=== PATIENT | female | born 1990 | race Caucasian/White ===

== ENCOUNTER → 2017-06-27 17:00 | Outpatient (CLI) | payer MEDICARE, SELFPAY ==
[2017-05-20 13:34] VITALS: BP 111/74; BMI 36.0
[2017-06-27 17:47] LABS: hCG Titer Quant., Serum < 1 mIU/mL (<9 non-preg)
== END ==
PROVIDERS: Family Provider Internal Medicine; PCP Internal Medicine; Visit Provider Obstetrics & Gynecology
DX: N92.6 Irregular menstruation, unspecified (principal)
CPT/HCPCS: 84702

== ENCOUNTER 2017-07-05 13:04 | Emergency (ER) | payer MEDICARE, SELFPAY ==
[2017-07-05 13:05] VITALS: BP 152/94; PULSE 121; RESP 16; TEMP 38.2; O2SAT 97; BMI 29.7
[2017-07-05 13:20] VITALS: O2SAT 98
--- NOTE | 2017-07-05 13:40 | ED.VISSUMM ---
- ER Visit Summary Date of Service: 07/05/17 Chief Complaint: [Fever and cough] History of Present Illness: The patient is a 27 F [presents to the emergency department with multiple complaints ?2 days. Patient states that her entire family's been sick with bronchitis. Patient started with fever yesterday. Patient has had chills and a cough. Patient planes of body aches and sore throat. Patient describes nausea.] Physical Examination: [HEENT-PERRLA, EOMI. Cranial nerves II through XII grossly intact. TMs clear. Mucous membranes moist. No adenopathy. Clear rhinorrhea. Minimal pharyngeal erythema. Cardiovascular-regular cardiac. No murmurs auscultated. Lungs-clear to auscultation, chest wall stable without crepitus or subcu emphysema Abdomen-normoactive bowel sounds, soft, nontender, no rebound or rigidity, no peritoneal signs. Extremities-intact ?4, normal range of motion, normal pulses, atraumatic] Test Results: [None indicated] Emergency Department Course and Treatment: [I believe the patient has influenza. We discussed Tamiflu however she would prefer not to move forward with the Tamiflu.] Treatment Plan: [Is to push fluids and get lots of rest. Patient will be given a prescription for Zofran and Tessalon Perles. Patient advised to follow-up with her primary care physician within next 5-7 days. Patient to return if increasing shortness of breath or condition should worsen in any way. Disposition: [Discharged to home in stable condition] Impression: [Influenza] This note was generated with [employer] dictation software. It may contain incorrect words, spelling, and punctuation that were not noted in review of the chart prior to signing ED Disposition - Plan for ED Patient: Chief Complaint: Cough Referrals: Juan Alfaro MD [Primary Care Provider] -
--- NOTE | 2017-07-05 13:43 | ED.DEP ---
ED Disposition - Plan for ED Patient: Chief Complaint: Cough Instructions: ED Flu Prescriptions: Ondansetron [Zofran Odt] 4 mg PO Q8H PRN PRN #10 tab PRN Reason: Nausea Benzonatate [Tessalon Perle] 200 mg PO TID PRN PRN #20 cap PRN Reason: Cough Referrals: Juan Alfaro MD [Primary Care Provider] - 5-7 Days
[2017-07-05 13:55] VITALS: BP 119/61; PULSE 125; RESP 18; O2SAT 98
[2017-07-05] MEDS: Ondansetron ODT 4 MG Tablet PO (13:55)
[2017-07-05] MEDS: Ibuprofen 400 MG Tablet 800 MG PO (13:55)
== END 2017-07-05 13:58 | disposition home or self-care (01) ==
LOC: ED 13:38
PROVIDERS: Emergency Provider Emergency Medicine; Family Provider Internal Medicine; PCP Internal Medicine
DX: J11.1 Influenza due to unidentified influenza virus with other respiratory manifestations (principal)
CPT/HCPCS: 99283

== ENCOUNTER 2017-07-26 09:00 | Outpatient (RCR) | payer MEDICARE, SELFPAY ==
--- NOTE | 2017-05-30 09:13 | HP.PTEVAL ---
Patient's Visit Information COLLIN APARICIO is a 27 year old F referred to Physical Therapy by DO ROJAS Gamble with a diagnosis of R knee arthroscopy, synovectomy. Date of Evaluation: 05/25/17 Physical Therapist: Kenny Pedraza - Visit Plan Frequency: 2x /Week Duration: 4 Weeks Plan: Start with quad, HS, core, hip abd, hip ER strengthening. Progress to CKC as tolerated. Avoid deep squats currently. Progress strengthening and ROM as tolerated. May use IFC and ice as needed for pain control. - Subjective Subjective: Pt. is here today for her initial evaluation with diagnosis fo R knee arthroscopy with synovectomy. Pt. is a 27 y.o. female who reports having R knee pain for 5+ years with no apperent mechanism of injury. Pt. had surgery on May 06, 2017. Pt. reports overally she is doing well, but did slip on ice yesterday, but did not fall. She reports increase edema since, but still minimal. Pt. is pleased with ability to ambulate and get around since surgery. Pt. does like to work out at gym and is planning to start [employer] program at [facility]. Pt. wants to have knee good so when she starts, she can participate in the aerobic fitness portion of the program. Pt. reports not doing any exercises since srugery, just been walking and icing. Pt. is hipeful to get back to all recreational and aerobic activities without issues. - Pain R knee Pain Intensity (Out of 10): 2 Pain Intensity Range: 0, 4 - Objective POSTURE: Pt. has normal knee positioning in stance, except she has slight knee flexion of R knee in stance. Pt. has slight wt. shift to L side. Pt otherwise as normal positioning. PALPATION: Pt. has well healing port holes, no signs of infection. Pt. has negative homans sign bilaterally. Pt. has slight edema in RLE. Pt. has slight tenderness at medial aspect of knee joint, no pain at posterior aspect. NEUROLOGICAL Pt. has normal sensation to light and sharp touch of bilateral LEs. Pt. has 2+ achilles DTR bilaterally and 2+ patellar DTR on LLE. Pt. is able to rise on heels and toes without issues or LOB. ROM: L knee 0-0-138deg. R knee 0-3-122deg. Mild increase in symptoms at both end ranges of motion of R knee. Pt. has normal hip ROM bilaterally. Tight HS on R side, normal on L side. MMT: LLE- ankle 5/5 throughout; knee- ext 5-/5, flexion 5-/5; hip- flexion 5-/5, abd 4+/5, ext 5-/5. RLE- ankle 5/5 throughout; knee- ext 4/5, flexion 4/5; hip- flexion 4/5, abd 4/5, ext 4/5. Core strength- poor+. GAIT: Pt. presents with antalgic pattern during R stance phase. Pt. lacks TKE on RLE, bu minimall. Pt. had decreased L step length and slight R lateral lean during R stance phase. STAIRS: Pt. completes with step to pattern with 2 HR without LOB. Pt. reports increased pain with descending. - Goals Goal 1:: Pt. to be I with HEP. Goal Time Frame: 4-6 Weeks Goal 2:: Pt. to have increased ROM to 0-0-130deg. of R knee without symptoms allowing for increased tolerance to all ADLs. Goal Time Frame: 4-6 Weeks Goal 3:: Pt. to have increased RLE strength including hip and core by 1/2 grade reducing stress applied to R knee with all functional mobility. Goal Time Frame: 4-6 Weeks Goal 4:: Pt. to have normal gait pattern without increase in symptoms. Goal Time Frame: 4-6 Weeks Goal 5:: Pt. to negotiate stairs with 1 HR with reciprocal pattern without increase in symptoms. Goal Time Frame: 4-6 Weeks - Rehabilitation Potential Physical Therapy Diagnosis: Pt. has signs and symptoms consistent with R knee hypombility, increased edema, RLE weakness, and difficulty with gait S/P R knee arthroscopy. She would benefit from PT to incerase ROM, strength, stability, decrease pain and improve gait pattern. Rehabilitation Potential: Excellent - Anticipated Interventions Patient/Client Instruction: Educate patient on: Condition, Plan of Care, Risk Factors, Benefits of Fitness Program For the Purpose of:: To improve health and function, To foster healthy habits, To improve decision making, To facilitate caregiver knowledge, To improve self management, To prevent re-injury, To improve ability to perform tasks related to life management, To improve tolerance to ADL's Therapeutic Exercise to Include: Strength training, Power training, Endurance training, Balance training, Coordination, Postural training, Flexibilty training, Passive ROM, Active ROM, Dynamic Lumbar Stabilization For the Purpose of:: To decrease pain, To decrease swelling/inflammation, To increase ROM, To improve nutrient delivery to tissue, To increase oxygenation perfusion, To improve muscle performance and motor function, To improve performance and independence with ADL's, To decrease level of supervision to perform tasks, To improve gait and locomotor functions, To improve health of tissue, To decrease soft tissue restriction, To increase flexibility/ROM, To improve endurance, To improve balance IF ES: Yes Cryotherapy (ice pack, ice massage): Yes Vasopneumatic device: Yes For the Purpose of:: To decrease pain, To decrease swelling/inflammation, To increase ROM Thank you for the opportunity to evaluate your patient. For Medicare and Medicare HMO plans, please review the plan of care and approve it. It will need to be FAXED BACK to us at [phone] for Medicare purposes. Please let me know if there are questions or concerns regarding this plan of care. Physician Signature: Date:
--- NOTE | 2017-07-26 16:55 | HP.PTDCSUM_ITS ---
HP - PT D/C Summary It has been my pleasure to treat COLLIN APARICIO under orders from Cris Olson DO, for the diagnosis of R knee arthroscopy, synovectomy for a total of 11 visit(s). Discharge Date: 07/26/17 Please see the following information for a summary of their discharge status. - Subjective Subjective: Pt. reports I am doing pretty well today, but I did do a lot of walking the other day. My muscles are a little sore. Pt. reports being HEP compliant. - Pain R knee Pain Intensity (Out of 10): 0 - Overall Improvement % Improvement: 95 - Objective Objective/Function: Pt. reports she is doing very well. Pt. tolerated all gym exercises without issues. Pt. is independent with her HEP and with gym exercises at this point in time. Pt. reports no pain with walking or gym exercises. Pt. has full ROM without increase in symptoms. MMT- 5/5 throughout RLE, except 4+/5 hip abduction. Pt. is negotiating steps without increase in symptoms without HR. Pt. is completing with reciprocal pattern without increase in symptoms. Pt. is back to gym exercises and HEP without issues. - Goals Goal 1:: Pt. to be I with HEP. Goal Progress: Goal Met Goal 2:: Pt. to have increased ROM to 0-0-130deg. of R knee without symptoms allowing for increased tolerance to all ADLs. Goal Progress: Goal Met Goal 3:: Pt. to have increased RLE strength including hip and core by 1/2 grade reducing stress applied to R knee with all functional mobility. Goal Progress: Goal Met Goal 4:: Pt. to have normal gait pattern without increase in symptoms. Goal Progress: Goal Met Goal 5:: Pt. to negotiate stairs with 1 HR with reciprocal pattern without increase in symptoms. Goal Progress: Goal Met - Plan Plan: Pt. to be PT. DC to HEP at this point in time to gym exercises and HEP. - D/C Information Discharge Comments: Pt. was treated for her R knee arthroscopy with ROM, strengthening, and progressing to gym exercises. Pt. is no longer having any pain. She is independent with her current program and has minimal issues with her functional mobility. She reports occassional soreness with decending steps , but infrequently. Pt. will be DC to HEP at this point in time. If there are questions or concerns regarding this patient's physical therapy, please feel free to call me at [phone]. Thank you for the referral of this patient. Sincerely, Kenny Pedraza
== END 2017-07-26 19:00 | disposition home or self-care (01) ==
LOC: PT 09:00
PROVIDERS: Family Provider Internal Medicine; PCP Internal Medicine; Visit Provider Orthopaedic Surgery
DX: Z98.890 Other specified postprocedural states (principal)
CPT/HCPCS: 97014; 97110; 97161; G0283

== ENCOUNTER → 2017-08-08 13:54 | Outpatient (CLI) | payer MEDICARE, SELFPAY ==
--- NOTE | 2017-08-08 13:57 | US_ITS ---
STUDY: ULTRASOUND BREAST - RIGHT REASON FOR EXAM: Female, 27 years old. Bilateral breast pain. History of prior bilateral breast reduction surgery. TECHNIQUE: Axial and longitudinal images of the RIGHT breast were performed with a high resolution ultrasound transducer. COMPARISON: Comparison is made with prior mammogram done earlier in the day. FINDINGS: RIGHT Breast: There is a homogeneous fibroglandular tissue. No solid or cystic mass lesion is seen. There is evidence of a benign-appearing right axillary lymph node. IMPRESSION: Small right axillary lymph node. ASSESSMENT CATEGORY: BIRADS Category 2: Benign. A letter regarding these results will be sent to the patient by the facility within 30 days. Electronically Signed: Chuck Yi MD at 8:03 EDT Tel [phone], Service support , STUDY: ULTRASOUND BREAST - LEFT REASON FOR EXAM: Female, 27 years old. Bilateral breast pain. Remote breast reduction surgery. TECHNIQUE: Axial and longitudinal images of the LEFT breast were performed with a high resolution ultrasound transducer. COMPARISON: Comparison is made with prior mammogram done earlier today. FINDINGS: LEFT Breast: The left breast was examined by ultrasound. No sonographic abnormality is seen. US/Breast Limited Unilateral IMPRESSION: Unremarkable sonographic examination. ASSESSMENT CATEGORY: BIRADS Category 1: Negative. A letter regarding these results will be sent to the patient by the facility within 30 days. Electronically Signed: Chuck Yi MD at 8:03 EDT Tel [phone], Service support ,
--- NOTE | 2017-08-08 14:00 | HPBI_ITS ---
MAMMOGRAPHY - BILATERAL DIAGNOSTIC REASON FOR EXAM: Female, 27 years old. 2 month history of a bilateral breast pain. PERTINENT HISTORY: Prior bilateral breast reduction surgery. TECHNIQUE: Digital bilateral breast pedro (3D mammographic acquisition) in the CC and MLO projections. 2-D mediolateral oblique (MLO) and craniocaudad (CC) views of both breasts were obtained. CAD: Full Field Digital Mammography with Computer Added Detection was performed. COMPARISON: None. Baseline examination. FINDINGS: Breast Composition: The breasts are heterogeneously dense, which may obscure small masses. There are no dominant masses or suspicious calcifications. No other significant abnormalities are identified. HPBI/DIAG MAMM W/CAD, BILAT IMPRESSION: Negative diagnostic mammogram. With the patient's history of bilateral breast pain, correlation with ultrasound is recommended. ASSESSMENT CATEGORY: BIRADS Category 0: Incomplete. Need additional imaging evaluation. A letter regarding these results will be sent to the patient by the facility within 30 days. Approximately 10% of breast cancers are not detected by mammography. A normal mammogram should not delay biopsy of a clinically suspicious abnormality. Electronically Signed: Chuck Yi MD at 15:36 EDT Tel [phone], Service support ,
== END ==
PROVIDERS: Family Provider Internal Medicine; PCP Internal Medicine; Visit Provider Nurse Practitioner Women's Health
DX: N64.4 Mastodynia (principal)
CPT/HCPCS: 76642; 77062; 77066; G0279

== ENCOUNTER → 2017-10-19 16:22 | Outpatient (CLI) | payer MEDICARE, SELFPAY ==
[2017-10-19 18:14] LABS: Pregnancy, Serum, hCG Quali. NEGATIVE Negative (0-9 Nonpreg)
== END ==
PROVIDERS: Family Provider Internal Medicine; PCP Internal Medicine; Visit Provider Internal Medicine
DX: N92.6 Irregular menstruation, unspecified (principal)
CPT/HCPCS: 36415; 84703

== ENCOUNTER → 2018-02-28 09:48 | Outpatient (CLI) | payer MEDICARE, SELFPAY ==
--- NOTE | 2018-02-28 09:55 | RAD_ITS ---
STUDY: X-RAY - PELVIS AND RIGHT HIP REASON FOR EXAM: Right hip pain since knee surgery last April. TECHNIQUE: Radiological exam, hip, unilateral, with pelvis when performed; 2 or 3 views. COMPARISON: None. FINDINGS: There are small pelvic phleboliths. Normal bilateral iliac wings, sacroiliac joints and visualized sacrum. Normal bilateral superior and inferior pubic rami. Normal pubic symphysis. Normal bilateral ischial tuberosities. Normal visualized femoral head. Normal acetabulum. Normal hip joint. RAD/HIP, UNI W/ Pelvis 2-3 Views IMPRESSION: Normal x-ray examination of the pelvis and right hip. Electronically Signed: Ovi Figueroa MD at 16:01 EDT Tel , Service support ,
== END ==
PROVIDERS: Family Provider Internal Medicine; PCP Internal Medicine; Referring Provider Orthopaedic Surgery; Visit Provider Orthopaedic Surgery
DX: M25.551 Pain in right hip (principal)
CPT/HCPCS: 73502

== ENCOUNTER 2018-03-20 16:30 | Outpatient (RCR) | payer MEDICARE, SELFPAY ==
--- NOTE | 2018-03-08 05:50 | HP.PTEVAL_ITS ---
Patient's Visit Information COLLIN APARICIO is a 27 year old F referred to Physical Therapy by Cris Olson DO with a diagnosis of Right Hip Labral Tear. Date of Evaluation: 03/06/18 Physical Therapist: Kenny Pedraza - Visit Plan Frequency: 2x /Week Duration: 4 Weeks Plan: Start with US to anterior hip, gentle exercises including glute strengthening (max/med), quad strengthening as tolerated, hip ER as tolerated. Avoid end ranges, no deep squating. Focus on pain control and progression of light exercises as tolerated. Progress HEP as able. - Subjective Subjective: Pt is here today for their initial evaluation for right hip labral tear. About one year go pt had surgery on their right knee. it was following this surgery that the patient first noticed right hip pain. pt put off treatment for their right hip due to a second surgery they recieved on their left knee. pt has recovered from both knee surgerys and is now seeking treatment for their right hip. pt reports a constant pain lvl around 6 or 7 out of 10 but can get as high as 9/10. pt reports greatest pain when navigating stairs, sitting or standing. pt recieves some relief when laying in supine or on left side. pt has a 6 year old daughter who says keeps her busy and forces her to remain active and work through the pain. pt hopes to be able to reduce pain and be able to participate in all activity with no pain. - Pain R Hip Pain Intensity (Out of 10): 7 Pain Intensity Range: 6, 9 - Objective POSTURE: forward head and rounded shoulders, normal iliac crest height, no increased wt. shift to either side. PALPATION : Pt. has increased tenderness at anterior hip including iliopsoas, rectus femoris. No other quad tenderness. NEURO: equal sensation bilat, Pt. is able to rise on heels and toes without issues. Pt. has 2+ bilateral achilles and patellar DTR. ROM: LE - WFL, except increased R hip pain with end range flexion, ext and IR. MMT: RLE - 5/5 throughout, except with hip flexion and external rotaiton (4/5) and pain with resistance. LLE- 5/5 throughout. Core strength- poor+. GAIT: mild antalgic gait, reports difficutly with stairs. Pt. has mild increase in symptoms during stance phase, slight lateral hip translation and slight decreased L step length. - Special Tests R Hip Scour: Positive R Hip ELMER - Intraarticular Pathology: Positive R Hip FADDIR - Labrum: Positive - Goals Goal 1:: pt I with HEP Goal Time Frame: 2-4 Weeks Goal 2:: pt reports 0/10 pain with navigating stairs, sitting, and standing Goal Time Frame: 2-4 Weeks Goal 3:: pt reports 0/10 with walking Goal Time Frame: 2-4 Weeks Goal 4:: pt has full strength without pain in their right hip Goal Time Frame: 2-4 Weeks Goal 5:: pt able to return to gym without pain Goal Time Frame: 2-4 Weeks - Rehabilitation Potential Physical Therapy Diagnosis: pt presents with signs and symptsoms consistent with right hip labral tear. pt presents with an antalgic gait and pain with hip flexion with and without resistance. pt recorded positive resutls for scour and elmer tests. pt would benefit from PT in order to promote increased hip stability and reduced hip pain allowing for greater participation in daily activities Rehabilitation Potential: Good - Anticipated Interventions Patient/Client Instruction: Educate patient on: Condition, Plan of Care, Risk Factors, Benefits of Fitness Program For the Purpose of:: To decrease pain, To increase tolerance to activity/cond ition/position, To improve ability of physical actions for home/community/work/leisure Therapeutic Exercise to Include: Strength training For the Purpose of:: To decrease pain, To improve muscle performance and motor function, To increase tolerance to activity/condition/position, To improve ability of physical actions for home/community/work/leisure Manual Therapy Techniques to Include: Massage, Functional dry needling For the Purpose of:: To decrease pain, To decrease swelling/inflammation, To increase tolerance to activity/condition/position, To improve ability of physical actions for home/community/work/leisure TENS: Yes Cryotherapy (ice pack, ice massage): Yes Thermo therapy (hot pack): Yes Ultrasound (thermal/non thermal): Yes For the Purpose of:: To decrease pain, To increase tolerance to activity/condition/position, To improve ability of physical actions for home/community/work/leisure Thank you for the opportunity to evaluate your patient. For Medicare and Medicare HMO plans, please review the plan of care and approve it. It will need to be FAXED BACK to us at [phone] for Medicare purposes. Please let me know if there are questions or concerns regarding this plan of care. Physician Signature: Date:
--- NOTE | 2018-03-29 10:38 | HP.PTDCSUM ---
HP - PT D/C Summary It has been my pleasure to treat COLLIN APARICIO under orders from Cris Olson DO, for the diagnosis of Right Hip Labral Tear for a total of 4 visit(s). Discharge Date: 03/20/18 Please see the following information for a summary of their discharge status. - Subjective Subjective: Pt. reports I am really not getting much better.' Pt. reports being HEP compliant. She reports increased pain with all activities. She did start a new job which requires her to be on her feet a lot. - Pain R Hip Pain Intensity (Out of 10): 4 - Overall Improvement % Improvement: 25 - Objective Objective/Function: Pt. continues have increased pain with most functional mobility. She has point tender at her R iliopsoas muscle, but has special testing consistent with labral pathology. Pt. is to continue with stretching as tolerated. - Goals Goal 1:: pt I with HEP Goal Progress: Goal Met Goal 2:: pt reports 0/10 pain with navigating stairs, sitting, and standing Goal Progress: Not Progressing Goal 3:: pt reports 0/10 with walking Goal Progress: Not Progressing Goal 4:: pt has full strength without pain in their right hip Goal Progress: Progressing Goal 5:: pt able to return to gym without pain Goal Progress: Not Progressing - Plan Plan: Pt. to be DC from PT and follow up with physician at this point in time to determine if alternate course of action is required. - D/C Information Discharge Comments: Pt. was treated for her R hip pathology with manual intervention, US and stretching. Pt. was making minimal changes with PT and desired to follow up with physician to determine if alternate intervention would be beneficial. If there are questions or concerns regarding this patient's physical therapy, please feel free to call me at [phone]. Thank you for the referral of this patient. Sincerely, Kenny Pedraza
== END 2018-03-20 19:00 | disposition home or self-care (01) ==
LOC: PT 16:30
PROVIDERS: Family Provider Internal Medicine; PCP Internal Medicine; Referring Provider Orthopaedic Surgery; Visit Provider Orthopaedic Surgery
DX: S73.101D Unspecified sprain of right hip, subsequent encounter (principal)
CPT/HCPCS: 97035; 97110; 97140; 97161

== ENCOUNTER → 2018-04-10 10:02 | Outpatient (CLI) | payer MEDICARE, SELFPAY ==
--- NOTE | 2018-04-10 10:06 | RAD_ITS ---
CLINICAL HISTORY: Female, 27 years old. Right hip pain. PROCEDURE: ARTHROGRAM - ] CONSENT: The procedure as well as the benefits and possible complications including bleeding and infection were expanded to the patient. Informed consent was obtained. FLUOROSCOPY TIME (if supplied): (0:48) minutes/seconds Injection Information: 10 cc of dilute Magnevist. Number of images obtained: 2 TECHNIQUE: (All elements of maximal sterile barrier technique followed, including US elements as applicable) The patient was in the supine position. The overlying skin was prepped and draped in usual sterile fashion. Following local anesthetic a location and under direct fluoroscopic guidance, a 22-gauge spinal needle was placed into the right hip joint. 2 cc of Isovue-300 was injected for confirmation. Following this, 10 cc of dilute Magnevist was injected. The patient tolerated the procedure well. RAD/Arthrogram Hip w/ MRI IMPRESSION: Successful right hip arthrogram for MRI imaging. The patient tolerated the procedure well. Electronically Signed: Chuck Yi MD at 12:39 EST Tel [phone], Service support ,
--- NOTE | 2018-04-10 11:30 | MRI_ITS ---
STUDY: MR RIGHT HIP ARTHROGRAPHY REASON FOR EXAM: Right hip pain, instability, no specific injury. TECHNIQUE: Standardized fat and water weighted pulse sequences were obtained in all 3 orthogonal planes after intra-articular instillation of dilute Magnevist. COMPARISON: Radiographs 02/28/2018. FINDINGS: Normal hip joint without articular joint space narrowing. Normal acetabulum. There is a small tear at the base of the right superior labrum (T1 coronal images 11-13) and a tear of the right anterosuperior labrum (ELMER image 11). Normal femoral head. Normal femoral neck and intratrochanteric region. Normal gluteus minimus, medius and iliopsoas tendons and distal insertions. There is no trochanteric, iliopsoas or iliopectineal bursitis. Normal superior and inferior pubic rami. Normal ischial tuberosity. Normal origin of the hamstring tendons. Normal visualized iliac wing, sacroiliac joint, and sacral ala. There is mild iatrogenic edema anterior to the right hip joint capsule. MRI/Lower Ext/Jt Only/W Contrast IMPRESSION: Right labral tear. Electronically Signed: Ovi Figueroa MD at 13:13 EST Tel , Service support ,
== END ==
PROVIDERS: Family Provider Internal Medicine; PCP Internal Medicine; Referring Provider Orthopaedic Surgery; Visit Provider Orthopaedic Surgery
DX: S73.191A Other sprain of right hip, initial encounter (principal); M25.551 Pain in right hip
CPT/HCPCS: 27093; 73722; 77002; A9577; Q9967

== ENCOUNTER 2018-04-12 18:55 | Emergency (ER) | payer MEDICARE, SELFPAY ==
[2018-04-12 18:56] VITALS: BP 134/87; PULSE 92; RESP 16; TEMP 36.2; O2SAT 95; BMI 36.2
--- NOTE | 2018-04-12 19:17 | ED.DCSUM_ITS ---
- ER Visit Summary Date of Service: 04/12/18 Chief Complaint: Acute on chronic right hip pain History of Present Illness: The patient is a 27 F history of depression and anxiety. Prior knee scopes. Currently under the care of Dr. Cris Olson of orthopedics. Patient had 6-month history of right hip pain. She had an MRI done on Tuesday which showed a labral tear. She is complaining of increasing pain. No new fall or trauma. No fever or redness. Pain is worse with walking. Physical Examination: Young female no acute distress. Vital signs are stable and afebrile. H EENT exam unremarkable. Lungs clear to auscultation bilaterally. Heart regular rhythm no murmur. Abdomen soft and nontender. Normal bowel sounds no peritoneal signs. Extremities moves all 4. Neurovascular intact. Right foot has normal dorsi plantar flexion normal DP pulse. She is able to flex and extend the right hip, right knee and right ankle. She has worsening pain with flexion of the right hip. There is no redness or swelling of the right hip. There is no gross bony deformity. She has normal range of motion. Test Results: None Emergency Department Course and Treatment: I reviewed the patient's MRI results from Tuesday. They do show a labral tear. Treatment Plan: She states that the tramadol is not covering her pain. She will be written for limited Percocet 10 no refill otherwise ibuprofen and follow-up with her orthopedic surgeon Dr. Olson Disposition: dc Impression: Acute on chronic right hip pain with a known labral tear diagnosed by MRI This note was generated with [employer] dictation software. It may contain incorrect words, spelling, and punctuation that were not noted in review of the chart prior to signing ED Disposition - Plan for ED Patient: Chief Complaint: Lower Extremity Injury Referrals: Juan Alfaro MD [Primary Care Provider] -
--- NOTE | 2018-04-12 19:17 | ED.DEP ---
ED Disposition - Plan for ED Patient: Disposition: Home or Assisted Living Chief Complaint: Lower Extremity Injury Prescriptions: Oxycodone HCl/Acetaminophen [Percocet 10-325 mg Tablet] 1 tab PO Q6H PRN PRN #10 tab PRN Reason: Pain Referrals: Cris Olson DO [STAFF PHYSICIAN] - As soon as possible Additional Instructions: Percocet for pain otherwise ibuprofen. Call and follow-up with orthopedic doctor.
[2018-04-12 19:21] VITALS: RESP 18
== END 2018-04-12 19:29 | disposition home or self-care (01) ==
PROVIDERS: Emergency Provider Emergency Medicine; Family Provider Internal Medicine; PCP Internal Medicine
DX: M25.551 Pain in right hip (principal); G89.29 Other chronic pain; S73.101A Unspecified sprain of right hip, initial encounter; X58.XXXA Exposure to other specified factors, initial encounter; Y93.9 Activity, unspecified; Y92.9 Unspecified place or not applicable; F32.9 Major depressive disorder, single episode, unspecified; F41.9 Anxiety disorder, unspecified
CPT/HCPCS: 99282

== ENCOUNTER 2018-05-05 18:05 | Observation (INO) | payer MEDICARE, SELFPAY ==
[2018-05-05 17:09] VITALS: BMI 36.2
[2018-05-05 18:06] VITALS: BP 110/96; PULSE 88; RESP 17; TEMP 36.8; O2SAT 98; BMI 37.1
--- NOTE | 2018-05-05 18:43 | CT_ITS ---
STUDY: CT ABDOMEN AND PELVIS WITH CONTRAST REASON FOR EXAM: Female, 28 years old. Abdominal pain on the right RADIATION DOSAGE (If Supplied By Facility): CTDIvol = ( 16.95 ) mGy, DLP = ( 1212.74 ) mGycm TECHNIQUE: Transaxial images were obtained from the dome of the diaphragm to the symphysis pubis without oral contrast. 100ML ml of Isovue 300 contrast was administered. Sagittal and coronal images were reconstructed. Individualized dose optimization techniques were used for this CT. COMPARISON: December 20, 2015 FINDINGS: The visualized lung bases are unremarkable. The visualized portions of the heart are within normal limits. Normal liver. Normal gallbladder and extrahepatic biliary system. Normal spleen. Normal pancreas. Normal bilateral adrenal glands. Nonobstructive 2 mm stone in the right kidney. Nonobstructive punctate stone in the left kidney. Normal visualized stomach. Normal small intestine. Normal colon. The appendix is borderline in size requiring clinical correlation. Normal abdominal aorta. Normal inferior vena cava. Normal retroperitoneum. Normal urinary bladder. There is a right adnexal 2.8 x 1.8 cm cystic nodule. Normal abdominal wall. Normal osseous structures. CT/Abdomen/Pelvis WITH Contrast IMPRESSION: Borderline size appendix requiring clinical correlation. Right adnexal cystic nodule. Nonobstructing renal calculi bilaterally. Electronically Signed: Hector Biswas DO at 21:29 EST Tel [phone], Service support ,
[2018-05-05 19:09] VITALS: BP 117/82; PULSE 81; RESP 16; TEMP 36.8
[2018-05-05] MEDS: Ondansetron 4 MG/2 ML Vial IV ×2 (19:10→22:04)
[2018-05-05] MEDS: 0.9% Normal Saline 1,000 ML 150 ML IV (19:10)
[2018-05-05] MEDS: Morphine 4 MG/ML Syringe IV ×2 (19:10→22:04)
[2018-05-05 19:17] LABS: Absolute Lymphocyte Count 2.79 X10^3/ul (0.83-4.51); Absolute Neutrophil Count 3.9 X10^3/uL (2.0-7.7); Basophil# 0.03 X10^3/uL; Basophil% 0.4 % (0-1); Eosinophil# 0.03 X10^3/uL; Eosinophils% 0.4 % (0-5); Hematocrit 34.8 % (37-47); Hemoglobin 11.8 g/dl (12.0-15.0); Lymphocyte # 2.79 X10^3/ul (4.0); Lymphocyte % 38.3 % (19-41); Mean Corp Hgb Conc 33.9 g/gl (32-36); Mean Corpuscular Hgb 28.9 pg (27.0-32.0); Mean Corpuscular Volume 85.1 fL (81-99); Mean Platelet Vol. 8.9 fl (6.2-12.0); Monocyte# 0.55 X10^3/uL; Monocyte% 7.5 % (0-10); Neutrophil # 3.88 X10^3/uL (2.7-7.7); Neutrophil % 53.3 % (47-70); POSITIVE COUNT NO; POSITIVE DIFFERENTIAL NO; POSITIVE MORPHOLOGY NO; Platelet Count 316 K/mm3 (150-450); RBC Distribution Width CV 12.2 % (11.6-14.6); RBC Distribution Width SD 37.9 fl (35.1-43.9); Red Blood Count 4.09 M/mm3 (4.2-5.4); White Blood Count 7.3 K/mm3 (4.4-11.0)
[2018-05-05 19:22] LABS: Anion Gap 8 (5-15); BUN 12 mg/dL (7-18); BUN/Creat Ratio 20.1 RATIO (10-20); Calcium,Total 8.8 mg/dL (8.5-10.1); Chloride 103 mmol/L (98-107); EST Glomerular Filtration Rate 127 mL/min (>60); Est Glom Filt Rate - Afr Amer 154 mL/min (>60); Estimated Creatinine Clearance 105.34 ml/min; Glucose 91 mg/dL (74-106); Potassium 3.8 mmol/L (3.5-5.1); Sodium Level 140 mmol/L (136-145)
[2018-05-05 19:36] LABS: Mucous, Urine 0 SEEN /hpf (<or=2+); Red Blood Cells-Urine 0 SEEN /hpf (0-5); White Blood Cells 0 SEEN /hpf (0-5)
[2018-05-05 19:38] LABS: Color, Urine Yellow (Yellow); Glucose, Dipstick Normal (Normal); Ketone-Dipstick 5 mg/dl (Negative); Leukocyte Esterase-Dipstick Negative /ul (Negative); Nitrite-Dipstick Negative (Negative); Occult Blood-Urine Negative /ul (Negative); Protein-Dipstick Negative (Negative); Specific Gravity, Urine 1.015 (1.002-1.030); Urine Bilirubin Dipstick Negative (Negative); Urine Clarity Sl. Cloudy (Clear); Urine Urobilinogen Normal (Normal); Urine pH 6.5 (5.0 - 8.0)
[2018-05-05 19:45] LABS: Bacteria RARE /hpf (None Seen); Squamous Epithelial Cells - UA 0-5 SEEN /hpf (5-10); Yeast-Urine RARE /hpf (None Seen)
[2018-05-05 19:55] LABS: Pregnancy, Serum, hCG Quali. NEGATIVE Negative (0-9 Nonpreg)
[2018-05-05 20:17] VITALS: BP 115/81; PULSE 78; RESP 16; TEMP 36.7
[2018-05-05 21:42] VITALS: TEMP 36.7
[2018-05-05 22:12] VITALS: BP 123/74; PULSE 87; RESP 16
--- NOTE | 2018-05-05 22:24 | PCM.HP.STD ---
Problem List (1) Acute appendicitis Status: Acute Qualifiers: Acute appendicitis type: unspecified acute appendicitis type Qualified Code(s): K35.80 - Unspecified acute appendicitis History of Present Illness Date of Admission: 05/05/18 The patient is a 28 year old F complaining of right lower quadrant pain. The patient reports his pain is in the periumbilical and right lower quadrant. She does have nausea. She rates her pain as an 8 out of 10. She is not having any vomiting or dysuria. The patient does not report any fevers or chills. Past Medical History Past Medical History (Chronic Problems): Chronic Problems (Last Reviewed 05/05/18 @ 17:09 by Bibi Roper) GERD (gastroesophageal reflux disease) (Chronic) Obesity (Chronic) Depression with anxiety (Chronic) Scoliosis (Chronic) IBS (irritable bowel syndrome) (Chronic) Chronic back pain (Chronic) Asthma (Chronic) Depression (Chronic) Anxiety (Chronic) Medical History: Medical History (Last Reviewed 05/05/18 @ 17:09 by Bibi Roper) Scoliosis (Chronic) M41.9 IBS (irritable bowel syndrome) (Chronic) K58.9 Chronic back pain (Chronic) M54.9, G89.29 Asthma (Chronic) J45.909 Depression (Chronic) F32.9 Anxiety (Chronic) F41.9 Preeclampsia O14.90 Allergies naproxen Adverse Reaction (Verified 05/05/18 18:06) Other varenicline tartrate [From Chantix] Adverse Reaction (Verified 05/05/18 18:06) Other Home Medications: Ambulatory Orders Medication Instructions Recorded NK 04/12/18 Surgical History: Surgical History (Last Reviewed 05/05/18 @ 17:09 by Bibi Roper) H/O knee surgery Z98.890 History of tonsillectomy Z98.890, Z90.89 Hx of breast reduction, elective Z98.890 S/P right knee arthroscopy Z98.890 05/06/17 adnoids c/s Surgical History: tonsillectomy, - - C Section, knee scopes Psychiatric History: Anxiety, Depression Smoking Status: Former smoker Alcohol: None - *Family History Maternal Family History: Family History (Last Reviewed 05/05/18 @ 17:09 by Bibi Roper) Mother Depression Aunt Breast cancer Grandmother Diabetes Uncle Hyperlipemia Menieres disease Depression Review of Systems Constitutional: Denies: Anorexia, Fever HEENT: Denies: Difficulty Swallowing Cardiovascular: Denies: Chest Pain Respiratory: Denies: Cough Gastrointestinal: Reports: Abdominal Pain, Nausea. Denies: Hematochezia, Vomiting Genitourinary: Denies: Dysuria Musculoskeletal: Denies: Joint Tenderness Skin: Denies: Dryness, Jaundice Neurological: Denies: Balance problems Psychiatric: Reports: Anxiety, Depression Hematologic/ Lymphatic: Denies: Anemia, Easy Bruising VTE Information - Inpt Only VTE Present on Admission: No VTE Mechan Device Prophylaxis: SCD's Patient Problems: Active and Suspected Problems (Last Reviewed 05/05/18 @ 17:09 by Bibi Roper) Acute appendicitis (Acute) - Physical Exam General: Alert, Oriented x3, Cooperative, No apparent distress HEENT: Atraumatic Neck: No JVD Lungs: Normal air movement Cardiovascular: Regular rate, Regular Rhythm Abdomen: Soft, Non-Distended, Obese, Tender - Right lower quadrant tenderness. No guarding or rebound. Exquisitely tender to touch. Extremities: No clubbing Skin: No rashes Musculoskeletal: No Muscle Wasting Neurological: Cranial nerves II-XII grossly intact Psych/Mental Status: Normal Affect Vital Signs Temp Pulse Resp BP Pulse Ox 98.1 F 87 16 123/74 H 98 05/05/18 21:42 05/05/18 22:12 05/05/18 22:12 05/05/18 22:12 05/05/18 18:06 Oxygen Delivery Method Room Air Weight: 196 lb 10.437 oz Body Mass Index (BMI) 37.1 Laboratory Tests Past 24 Hrs 05/05/18 05/05/18 05/05/18 19:05 19:05 19:05 WBC 7.3 RBC 4.09 L Hgb 11.8 L Hct 34.8 L MCV 85.1 MCH 28.9 MCHC 33.9 RDW 12.2 RDW Differential 37.9 Plt Count 316 MPV 8.9 Immature Gran % (Auto) 0.100 Neut % (Auto) 53.3 Lymph % (Auto) 38.3 [place] % (Auto) 7.5 Eos % (Auto) 0.4 Baso % (Auto) 0.4 Absolute Neuts (auto) 3.9 Absolute Lymphs (auto) 2.79 Total Counted Not Reportable Sodium 140 Potassium 3.8 Chloride 103 Carbon Dioxide 29.0 Anion Gap 8 BUN 12 Creatinine 0.60 Estim Creat Clear Calc 105.34 Est GFR (MDRD) Af Amer 154 Est GFR (MDRD) Non-Af 127 BUN/Creatinine Ratio 20.1 H Glucose 91 Calcium 8.8 Serum , Qual NEGATIVE Urine Color Urine Clarity Urine pH Ur Specific [place] Urine Protein Urine Glucose (UA) Urine Ketones Urine Occult Blood Urine Nitrite Urine Bilirubin Urine Urobilinogen Ur Leukocyte Esterase Urine RBC Urine WBC Ur Squamous Epith Cells Urine Bacteria Urine Mucus Urine Yeast 05/05/18 19:30 WBC RBC Hgb Hct MCV MCH MCHC RDW RDW Differential Plt Count MPV Immature Gran % (Auto) Neut % (Auto) Lymph % (Auto) [place] % (Auto) Eos % (Auto) Baso % (Auto) Absolute Neuts (auto) Absolute Lymphs (auto) Total Counted Sodium Potassium Chloride Carbon Dioxide Anion Gap BUN Creatinine Estim Creat Clear Calc Est GFR (MDRD) Af Amer Est GFR (MDRD) Non-Af BUN/Creatinine Ratio Glucose Calcium Serum , Qual Urine Color Yellow Urine Clarity Sl. Cloudy Urine pH 6.5 Ur Specific [place] 1.015 Urine Protein Negative Urine Glucose (UA) Normal Urine Ketones 5 H Urine Occult Blood Negative Urine Nitrite Negative Urine Bilirubin Negative Urine Urobilinogen Normal Ur Leukocyte Esterase Negative Urine RBC 0 SEEN Urine WBC 0 SEEN Ur Squamous Epith Cells 0-5 SEEN Urine Bacteria RARE Urine Mucus 0 SEEN Urine Yeast RARE Clinical Impression(s) from Imaging Studies Abdomen/Pelvis CT 05/05/18 18:43 IMPRESSION: Borderline size appendix requiring clinical correlation. Right adnexal cystic nodule. Nonobstructing renal calculi bilaterally. Electronically Signed: Hector Biswas DO at 21:29 EST Tel [phone], Service support , Assessment/Plan All Active Problems (Last Reviewed 05/05/18 @ 17:09 by Bibi Roper) Acute appendicitis (Acute) Right lower quadrant abdominal pain of unknown etiology (Acute) Viral syndrome (Acute) Irregular periods (Acute) Foot pain, bilateral (Acute) 28-year-old female with possible acute appendicitis 1. The patient is having right lower quadrant pain which is very severe. She is also having nausea. She had a normal white count with no left shift but her CT scan was read as borderline thickening. The appendix does look thickened on the CT scan and it contains no contrast. I am concern for acute appendicitis as her appendix does not appear this large on her last CT scan. I explained that this may not be appendicitis but an exploratory laparoscopy with appendectomy would be the only way to ensure that. 2. I explained laparoscopic appendectomy to the patient in detail. I explained the risks including but not limited to bleeding, infection, injury to surrounding organs such as the bowels or bladder or ureter. The patient understands the risks and is willing to proceed with surgery. 3. I will admit the patient and keep her n.p.o. and place her on antibiotics and take her for laparoscopic appendectomy in the morning. Jd Jennings MD Pager: [facility] [address] [place] [address], [address] [place] [address] Office:
--- NOTE | 2018-05-05 22:29 | HP.PCM_ITS ---
Problem List (1) Acute appendicitis Status: Acute Qualifiers: Acute appendicitis type: unspecified acute appendicitis type Qualified Code(s): K35.80 - Unspecified acute appendicitis History of Present Illness Date of Admission: 05/05/18 The patient is a 28 year old F complaining of right lower quadrant pain. The patient reports his pain is in the periumbilical and right lower quadrant. She does have nausea. She rates her pain as an 8 out of 10. She is not having any vomiting or dysuria. The patient does not report any fevers or chills. Past Medical History Past Medical History (Chronic Problems): Chronic Problems (Last Reviewed 05/05/18 @ 17:09 by Bibi Roper) GERD (gastroesophageal reflux disease) (Chronic) Obesity (Chronic) Depression with anxiety (Chronic) Scoliosis (Chronic) IBS (irritable bowel syndrome) (Chronic) Chronic back pain (Chronic) Asthma (Chronic) Depression (Chronic) Anxiety (Chronic) Medical History: Medical History (Last Reviewed 05/05/18 @ 17:09 by Bibi Roper) Scoliosis (Chronic) M41.9 IBS (irritable bowel syndrome) (Chronic) K58.9 Chronic back pain (Chronic) M54.9, G89.29 Asthma (Chronic) J45.909 Depression (Chronic) F32.9 Anxiety (Chronic) F41.9 Preeclampsia O14.90 Allergies naproxen Adverse Reaction (Verified 05/05/18 18:06) Other varenicline tartrate [From Chantix] Adverse Reaction (Verified 05/05/18 18:06) Other Home Medications: Ambulatory Orders Medication Instructions Recorded NK 04/12/18 Surgical History: Surgical History (Last Reviewed 05/05/18 @ 17:09 by Bibi Roper) H/O knee surgery Z98.890 History of tonsillectomy Z98.890, Z90.89 Hx of breast reduction, elective Z98.890 S/P right knee arthroscopy Z98.890 05/06/17 adnoids c/s Surgical History: tonsillectomy, - - C Section, knee scopes Psychiatric History: Anxiety, Depression Smoking Status: Former smoker Alcohol: None - *Family History Maternal Family History: Family History (Last Reviewed 05/05/18 @ 17:09 by Bibi Roper) Mother Depression Aunt Breast cancer Grandmother Diabetes Uncle Hyperlipemia Menieres disease Depression Review of Systems Constitutional: Denies: Anorexia, Fever HEENT: Denies: Difficulty Swallowing Cardiovascular: Denies: Chest Pain Respiratory: Denies: Cough Gastrointestinal: Reports: Abdominal Pain, Nausea. Denies: Hematochezia, Vomiting Genitourinary: Denies: Dysuria Musculoskeletal: Denies: Joint Tenderness Skin: Denies: Dryness, Jaundice Neurological: Denies: Balance problems Psychiatric: Reports: Anxiety, Depression Hematologic/ Lymphatic: Denies: Anemia, Easy Bruising VTE Information - Inpt Only VTE Present on Admission: No VTE Mechan Device Prophylaxis: SCD's Patient Problems: Active and Suspected Problems (Last Reviewed 05/05/18 @ 17:09 by Bibi Roper) Acute appendicitis (Acute) - Physical Exam General: Alert, Oriented x3, Cooperative, No apparent distress HEENT: Atraumatic Neck: No JVD Lungs: Normal air movement Cardiovascular: Regular rate, Regular Rhythm Abdomen: Soft, Non-Distended, Obese, Tender - Right lower quadrant tenderness. No guarding or rebound. Exquisitely tender to touch. Extremities: No clubbing Skin: No rashes Musculoskeletal: No Muscle Wasting Neurological: Cranial nerves II-XII grossly intact Psych/Mental Status: Normal Affect Vital Signs Temp Pulse Resp BP Pulse Ox 98.1 F 87 16 123/74 H 98 05/05/18 21:42 05/05/18 22:12 05/05/18 22:12 05/05/18 22:12 05/05/18 18:06 Oxygen Delivery Method Room Air Weight: 196 lb 10.437 oz Body Mass Index (BMI) 37.1 Laboratory Tests Past 24 Hrs 05/05/18 05/05/18 05/05/18 19:05 19:05 19:05 WBC 7.3 RBC 4.09 L Hgb 11.8 L Hct 34.8 L MCV 85.1 MCH 28.9 MCHC 33.9 RDW 12.2 RDW Differential 37.9 Plt Count 316 MPV 8.9 Immature Gran % (Auto) 0.100 Neut % (Auto) 53.3 Lymph % (Auto) 38.3 [place] % (Auto) 7.5 Eos % (Auto) 0.4 Baso % (Auto) 0.4 Absolute Neuts (auto) 3.9 Absolute Lymphs (auto) 2.79 Total Counted Not Reportable Sodium 140 Potassium 3.8 Chloride 103 Carbon Dioxide 29.0 Anion Gap 8 BUN 12 Creatinine 0.60 Estim Creat Clear Calc 105.34 Est GFR (MDRD) Af Amer 154 Est GFR (MDRD) Non-Af 127 BUN/Creatinine Ratio 20.1 H Glucose 91 Calcium 8.8 Serum , Qual NEGATIVE Urine Color Urine Clarity Urine pH Ur Specific [place] Urine Protein Urine Glucose (UA) Urine Ketones Urine Occult Blood Urine Nitrite Urine Bilirubin Urine Urobilinogen Ur Leukocyte Esterase Urine RBC Urine WBC Ur Squamous Epith Cells Urine Bacteria Urine Mucus Urine Yeast 05/05/18 19:30 WBC RBC Hgb Hct MCV MCH MCHC RDW RDW Differential Plt Count MPV Immature Gran % (Auto) Neut % (Auto) Lymph % (Auto) [place] % (Auto) Eos % (Auto) Baso % (Auto) Absolute Neuts (auto) Absolute Lymphs (auto) Total Counted Sodium Potassium Chloride Carbon Dioxide Anion Gap BUN Creatinine Estim Creat Clear Calc Est GFR (MDRD) Af Amer Est GFR (MDRD) Non-Af BUN/Creatinine Ratio Glucose Calcium Serum , Qual Urine Color Yellow Urine Clarity Sl. Cloudy Urine pH 6.5 Ur Specific [place] 1.015 Urine Protein Negative Urine Glucose (UA) Normal Urine Ketones 5 H Urine Occult Blood Negative Urine Nitrite Negative Urine Bilirubin Negative Urine Urobilinogen Normal Ur Leukocyte Esterase Negative Urine RBC 0 SEEN Urine WBC 0 SEEN Ur Squamous Epith Cells 0-5 SEEN Urine Bacteria RARE Urine Mucus 0 SEEN Urine Yeast RARE Clinical Impression(s) from Imaging Studies Abdomen/Pelvis CT 05/05/18 18:43 IMPRESSION: Borderline size appendix requiring clinical correlation. Right adnexal cystic nodule. Nonobstructing renal calculi bilaterally. Electronically Signed: Hector Biswas DO at 21:29 EST Tel [phone], Service support , Assessment/Plan All Active Problems (Last Reviewed 05/05/18 @ 17:09 by Bibi Roper) Acute appendicitis (Acute) Right lower quadrant abdominal pain of unknown etiology (Acute) Viral syndrome (Acute) Irregular periods (Acute) Foot pain, bilateral (Acute) 28-year-old female with possible acute appendicitis 1. The patient is having right lower quadrant pain which is very severe. She is also having nausea. She had a normal white count with no left shift but her CT scan was read as borderline thickening. The appendix does look thickened on the CT scan and it contains no contrast. I am concern for acute appendicitis as her appendix does not appear this large on her last CT scan. I explained that this may not be appendicitis but an exploratory laparoscopy with appendectomy would be the only way to ensure that. 2. I explained laparoscopic appendectomy to the patient in detail. I explained the risks including but not limited to bleeding, infection, injury to surrounding organs such as the bowels or bladder or ureter. The patient understands the risks and is willing to proceed with surgery. 3. I will admit the patient and keep her n.p.o. and place her on antibiotics and take her for laparoscopic appendectomy in the morning. Jd Jennings MD Pager: [facility] [address] [place] [address], [address] [place] [address] Office:
--- NOTE | 2018-05-05 22:30 | ED.DCSUM_ITS ---
- ER Visit Summary Date of Service: 05/05/18 Chief Complaint: Abdominal pain History of Present Illness: The patient is a 28 F with abdominal pain for the past 2 days, initially started in the periumbilical region and now down to the right lower quadrant. She had decreased appetite and decreased p.o. intake. She felt warm but did not measure a fever. She denies dysuria. She is a history of IBS but states this does not feel like her prior flares. Only prior surgical history is a . Physical Examination: Vital signs unremarkable. Patient is sitting upright in bed. She is nontoxic appearing. Heart is regular rate and rhythm. Lung sounds are clear. Abdomen is soft with tenderness in the right lower quadrant. She has some guarding. Hypoactive but present bowel sounds are noted throughout. Test Results: CBC was normal white count and differential. Hemoglobin is 11.8. Chemistry studies normal. Urinalysis normal. test normal. CT abdomen and pelvis with contrast reveals borderline sized appendix. A right adnexal cystic nodules noted at 2.8 x 1.8 cm. Emergency Department Course and Treatment: Patient is given morphine, Zofran, and IV fluids. Following completion of CT and lab work, test results are discussed with patient and family. I spoke with Dr. Carter, on-call for surgery. He reviewed the imaging and is concerned that there is not air or contrast in the lumen of her appendix. Patient is given a dose of Zosyn tonight and will be reevaluated with probable surgery for appendicitis at that time. Treatment Plan: [] Disposition: Admit Impression: 1. Appendicitis 2. Right ovarian cyst This note was generated with [employer] dictation software. It may contain incorrect words, spelling, and punctuation that were not noted in review of the chart prior to signing ED Disposition - Plan for ED Patient: Chief Complaint: Abd Pain Referrals: Juan Alfaro MD [Primary Care Provider] -
[2018-05-05 22:59] VITALS: BMI 36.5
[2018-05-05 23:15] VITALS: BP 102/65; PULSE 79; RESP 14; TEMP 36.3; O2SAT 98
[2018-05-05 23:24] VITALS: BMI 36.5
[2018-05-06] VITALS (9 sets, daily range): BP systolic 98–127; BP diastolic 53–80; PULSE 79–93; RESP 14–18; TEMP 36.1–36.7; O2SAT 96–100
[2018-05-06] MEDS: Morphine 4 MG/ML Syringe IV (01:10)
[2018-05-06] MEDS: 0.9% Normal Saline 1,000 ML 125 ML IV ×2 (03:20→13:21)
[2018-05-06] MEDS: Piperacil/Tazobactam 3.375 GM/50 ML ML IV ×2 (05:40→13:21)
[2018-05-06] MEDS: Ondansetron 4 MG/2 ML Vial IV (05:45)
[2018-05-06 06:53] LABS: Absolute Lymphocyte Count 1.84 X10^3/ul (0.83-4.51); Absolute Neutrophil Count 3.1 X10^3/uL (2.0-7.7); Basophil# 0.02 X10^3/uL; Basophil% 0.4 % (0-1); Eosinophil# 0.02 X10^3/uL; Eosinophils% 0.4 % (0-5); Hematocrit 31.9 % (37-47); Lymphocyte # 1.84 X10^3/ul (4.0); Lymphocyte % 34.1 % (19-41); Mean Corp Hgb Conc 34.5 g/gl (32-36); Mean Corpuscular Hgb 29.6 pg (27.0-32.0); Mean Platelet Vol. 9.2 fl (6.2-12.0); Monocyte# 0.46 X10^3/uL; Monocyte% 8.5 % (0-10); Neutrophil # 3.06 X10^3/uL (2.7-7.7); Neutrophil % 56.6 % (47-70); Platelet Count 298 K/mm3 (150-450); RBC Distribution Width CV 12.1 % (11.6-14.6); RBC Distribution Width SD 36.7 fl (35.1-43.9); Red Blood Count 3.71 M/mm3 (4.2-5.4); White Blood Count 5.4 K/mm3 (4.4-11.0)
[2018-05-06 06:58] LABS: POSITIVE COUNT NO; POSITIVE DIFFERENTIAL NO; POSITIVE MORPHOLOGY NO
[2018-05-06 07:03] LABS: Anion Gap 8 (5-15); BUN 9 mg/dL (7-18); BUN/Creat Ratio 15.4 RATIO (10-20); Chloride 107 mmol/L (98-107); Creatinine, Serum 0.58 mg/dL (0.55-1.02); EST Glomerular Filtration Rate 130 mL/min (>60); Est Glom Filt Rate - Afr Amer 158 mL/min (>60); Estimated Creatinine Clearance 108.97 ml/min; Glucose 105 mg/dL (74-106); Potassium 3.9 mmol/L (3.5-5.1); Sodium Level 141 mmol/L (136-145)
--- NOTE | 2018-05-06 09:58 | PCM.WORK.EX ---
Work/School Excuse Work/School Excuse for:: Patient Please excuse this person from:: Work From: 05/05/18 through: 05/09/18 Restrictions: Light Duty - May return to light duty 05/10. Return to full duty 05/22
--- NOTE | 2018-05-06 10:00 | APP_PTH ---
PATIENT: COLLIN APARICIO LOC: MS2 U#:[id number] AGE/SX: 28/F ROOM: MS218 RE05/05/[address]: Dr. Jd Jennings MD : 1990 BED: 1 DIS: 05/06/2018 SPEC #: [id number] RECD: 05/08/18 09:40 STATUS: FRANCESCA REJessica #: [id number] DANIELLE: 05/06/18 10:[address]: Jd Jennings DEPT: SURGICAL PATHOLOGY RECD BY: Beto Green ENTERED: 05/08/18 11:14 SP TYPE: APPENDIX OTHR DR: Dr. Juan Alfaro MD Tissues: Appendix, NOS Procedures: Surgery Specimen Level III HEADER OPERATION: Laparoscopic, appendectomy PRE-OP DIAGNOSIS: Acute appendicitis TISSUE SUBMITTED: Appendix MICROSCOPIC DIAGNOSIS Appendix, appendectomy: Acute appendicitis. Acute serositis. AM:myriam 12/18/18 MICROSCOPIC DESCRIPTION Slides are reviewed. GROSS DESCRIPTION Received is one container labeled with the patient's name and designated appendix. The specimen consists of a vermiform appendix measuring 6 cm in length and 1 cm in average diameter. No gross perforations are present. Serial sections reveal an obliterated lumen. Computer System Technician sections are submitted in one cassette. / AM:myriam 05/08/18 TC:2 CPT: 04948
[2018-05-06] MEDS: Bupiv/Epi 0.5% Mpf 30 ML Vial (10:28)
--- NOTE | 2018-05-06 10:49 | PCM.OPRPT ---
Problem List (1) Acute appendicitis Status: Acute Qualifiers: Acute appendicitis type: unspecified acute appendicitis type Qualified Code(s): K35.80 - Unspecified acute appendicitis Report of Operation Date of Procedure: 05/06/18 Pre-Operative Diagnosis: Acute appendicitis Post-Operative Diagnosis: Acute appendicitis Surgery/Procedure Performed:: Laparoscopic appendectomy Specimen's removed: Appendix Description of Procedure: The patient was brought into the operating room and general anesthesia was induced. The left arm was tucked and the abdomen was prepped and draped in usual sterile fashion. A small midline incision was made superior to the umbilicus and deepened to the level of the fascia. The fascia was elevated and incised. The peritoneum was also elevated and incised. A finger sweep was performed and a balloon trocar was placed into the abdomen and inflated. The abdomen was insufflated to 15 mmHg and the camera was inserted and the abdomen was inspected for any injuries upon entering the abdomen. There were none. The patient was placed in Trendelenburg position and a 5 mm ports placed in the left lower quadrant and suprapubic areas under direct visualization. The right ovary was examined and appeared to be cystic in nature. Next using atraumatic bowel graspers the appendix was identified. The appendix appeared inflamed. The appendix was grasped and elevated and a harmonic scalpel was used to take down the mesoappendix. A stapler was used to come across the base of the appendix. The appendix was then placed in Endo Catch bag and removed through the umbilical incision. The staple line was inspected and found to be hemostatic and intact. The 2 5 mm ports are removed under direct visualization. The balloon trocar was deflated and removed and all the air was removed from the abdomen. The umbilical incision fascia was closed with an 0 Vicryl [id number] suture. The incisions were then irrigated with saline and dried. Local anesthetic was injected into the incision sites. The skin incisions were then closed with interrupted 4-0 Monocryl suture and Steri-Strips. Bandages were applied and the patient was awoken and taken to PACU in stable condition. Patient tolerated the procedure well. - Admit VTE Documentation VTE Mechan Device Prophylaxis: SCD's
--- NOTE | 2018-05-06 10:52 | DCINST_ITS ---
Discharge Diet: Light diet - advance as tolerated Discharge Activity: May Not Drive - for 3-5 days or while taking narcotic pain meds. May shower in (days): 1 Lifting Restrictions: 20 lbs for 2 weeks Call your doctor if your incision/area has: Continuous Slow Oozing, Sudden Increased Bleeding, Increased Pain/ Swelling, Increased Redness, Foul Smelling Discharge Call your doctor if you observe: Fever of 101 or Higher Suture Line Care: Avoid Pulling/Pushing, Avoid Pinching/Bending Additional Dressing/Incision Instructions:: Keep dressing clean and dry. Change or remove dressing in 2 days. Leave steri strips for 1 week. May protect with a gauze bandaid. Medications to take at Discharge Ibuprofen [Motrin] 800 mg PO PRN PRN 05/05/18 Percocet 5-325 5 - 325 mg PO PRN PRN 05/06/18 Allergies/Adverse Reactions: Allergies naproxen Adverse Reaction (Verified 05/05/18 18:06) Other varenicline tartrate [From Chantix] Adverse Reaction (Verified 05/05/18 18:06) Other Primary Care Physician: Juan Alfaro MD [Primary Care Provider] - Test Results: Test results from this visit will be discussed in further detail at your follow- up appointment, if applicable. Please Follow Up With: Jd Jennings MD When: Please call to schedule 2 week follow up appointment. [phone]
--- NOTE | 2018-05-06 10:54 | PCM.DC.SUM ---
Discharge Date and Diagnosis Date of Admission: 05/05/18 Date of Discharge: 05/06/18 - Primary Discharge Diagnosis Active and Suspected Problems (Last Reviewed 05/05/18 @ 17:09 by Bibi Roper) Acute appendicitis (Acute) - Secondary Discharge Diagnosis Chronic Problems (Last Reviewed 05/05/18 @ 17:09 by Bibi Roper) GERD (gastroesophageal reflux disease) (Chronic) Obesity (Chronic) Depression with anxiety (Chronic) Scoliosis (Chronic) IBS (irritable bowel syndrome) (Chronic) Chronic back pain (Chronic) Asthma (Chronic) Depression (Chronic) Anxiety (Chronic) Hospital Course and Treatment Imaging Results: Clinical Impression(s) from Imaging Studies Abdomen/Pelvis CT 05/05/18 18:43 IMPRESSION: Borderline size appendix requiring clinical correlation. Right adnexal cystic nodule. Nonobstructing renal calculi bilaterally. Electronically Signed: Hector Biswas DO at 21:29 EST Tel [phone], Service support , Operations: appendectomy Procedures: None Summary of Care Provided: The patient is a 28 year old F who presented with 2-day history of right lower quadrant pain. The patient had CT which suggested appendicitis. The patient was taken the next morning for laparoscopic appendectomy. The patient's appendix did appear inflamed. The patient was brought back to the floor and when she was tolerating a diet and her pain was well controlled she was discharged home in stable condition. - Physical Exam Vital Signs Temp Pulse Resp BP Pulse Ox 97.0 F L 93 18 124/63 H 97 05/06/18 10:48 05/06/18 10:48 05/06/18 10:48 05/06/18 10:48 05/06/18 10:48 Oxygen Delivery Method Room Air Weight: 193 lb 5.526 oz Body Mass Index (BMI) 36.5 Intake and Output for Last 24 Hours 05/04/18 05/05/18 05/06/18 23:59 23:59 23:59 Intake Total 147 / 147 Output Total 300 / 300 Balance -153 / -153 Laboratory Tests Past 24 Hrs 05/05/18 05/05/18 05/05/18 19:05 19:05 19:05 WBC 7.3 RBC 4.09 L Hgb 11.8 L Hct 34.8 L MCV 85.1 MCH 28.9 MCHC 33.9 RDW 12.2 RDW Differential 37.9 Plt Count 316 MPV 8.9 Immature Gran % (Auto) 0.100 Neut % (Auto) 53.3 Lymph % (Auto) 38.3 [place] % (Auto) 7.5 Eos % (Auto) 0.4 Baso % (Auto) 0.4 Absolute Neuts (auto) 3.9 Absolute Lymphs (auto) 2.79 Total Counted Not Reportable Sodium 140 Potassium 3.8 Chloride 103 Carbon Dioxide 29.0 Anion Gap 8 BUN 12 Creatinine 0.60 Estim Creat Clear Calc 105.34 Est GFR (MDRD) Af Amer 154 Est GFR (MDRD) Non-Af 127 BUN/Creatinine Ratio 20.1 H Glucose 91 Calcium 8.8 Serum , Qual NEGATIVE Urine Color Urine Clarity Urine pH Ur Specific [place] Urine Protein Urine Glucose (UA) Urine Ketones Urine Occult Blood Urine Nitrite Urine Bilirubin Urine Urobilinogen Ur Leukocyte Esterase Urine RBC Urine WBC Ur Squamous Epith Cells Urine Bacteria Urine Mucus Urine Yeast 05/05/18 05/06/18 05/06/18 19:30 06:40 06:40 WBC 5.4 RBC 3.71 L Hgb 11.0 L Hct 31.9 L MCV 86.0 MCH 29.6 MCHC 34.5 RDW 12.1 RDW Differential 36.7 Plt Count 298 MPV 9.2 Immature Gran % (Auto) 0.000 Neut % (Auto) 56.6 Lymph % (Auto) 34.1 [place] % (Auto) 8.5 Eos % (Auto) 0.4 Baso % (Auto) 0.4 Absolute Neuts (auto) 3.1 Absolute Lymphs (auto) 1.84 Total Counted Not Reportable Sodium 141 Potassium 3.9 Chloride 107 Carbon Dioxide 26.0 Anion Gap 8 BUN 9 Creatinine 0.58 Estim Creat Clear Calc 108.97 Est GFR (MDRD) Af Amer 158 Est GFR (MDRD) Non-Af 130 BUN/Creatinine Ratio 15.4 Glucose 105 Calcium 8.0 L Serum , Qual Urine Color Yellow Urine Clarity Sl. Cloudy Urine pH 6.5 Ur Specific [place] 1.015 Urine Protein Negative Urine Glucose (UA) Normal Urine Ketones 5 H Urine Occult Blood Negative Urine Nitrite Negative Urine Bilirubin Negative Urine Urobilinogen Normal Ur Leukocyte Esterase Negative Urine RBC 0 SEEN Urine WBC 0 SEEN Ur Squamous Epith Cells 0-5 SEEN Urine Bacteria RARE Urine Mucus 0 SEEN Urine Yeast RARE Discharge Diet: Light diet - advance as tolerated Discharge Activity: May Not Drive - for 3-5 days or while taking narcotic pain meds. May shower in (days): 1 Call your doctor if your incision/area has: Continuous Slow Oozing, Sudden Increased Bleeding, Increased Pain/ Swelling, Increased Redness, Foul Smelling Discharge Call your doctor if you observe: Fever of 101 or Higher Suture Line Care: Avoid Pulling/Pushing, Avoid Pinching/Bending Additional Dressing/Incision Instructions:: Keep dressing clean and dry. Change or remove dressing in 2 days. Leave steri strips for 1 week. May protect with a gauze bandaid. Home Medications: Medications to take at Discharge RX: Ibuprofen [Motrin] 800 mg PO PRN PRN 05/05/18 Oxycodone HCl/Acetaminophen [Percocet 5/325] 1 - 2 tablet PO Q4H PRN PRN 7 Days #30 tablet 05/06/18 Percocet 5-325 5 - 325 mg PO PRN PRN 05/06/18 Following Prescrptions Were Given to Patient: Oxycodone HCl/Acetaminophen [Percocet 5/325] 1 - 2 tablet PO Q4H PRN PRN 7 Days #30 tablet PRN Reason: Pain Primary Care Physician: Juan Alfaro MD [Primary Care Provider] - Please Follow Up With: Jd Jennings MD When: Please call to schedule 2 week follow up appointment. [phone] Medical Necessity - Tobacco Use Smoking Status: Former smoker Meaningful Use Info Meaningful Use Diagnoses (Choose all that apply): None applicable
[2018-05-06] MEDS: Acetaminophen 325 MG Tablet 650 MG PO (14:33)
[2018-05-06] MEDS: oxyCODONE 5 MG Tablet PO (14:33)
--- OUTSIDE RECORDS SUMMARY | 2018-08-09 07:39 | XMS RPT_ITS ---
:1990 Author Organization [place] Support Name Relationship Address Phone SOHAMLIMacie Unavailable [address] + [place] [address] BERNSTEIN, SIERRA Unavailable [address] + [place] [address] BERNSTEINYULIANA Unavailable Unavailable + D Unavailable Unavailable Unavailable BERNSTEIN, SIERRA Unavailable [address] + [place] [address] D Unavailable Unavailable Unavailable BERNSTEIN, SIERRA Unavailable [address] + [place] [address] D Unavailable Unavailable Unavailable BERNSTEIN, SIERRA Unavailable [address] + [place] [address] D Unavailable Unavailable Unavailable BERNSTEIN, SIERRA Unavailable [address] + [place] [address] D Unavailable Unavailable Unavailable BERNSTEIN, SIERRA Unavailable [address] + [place] [address] D Unavailable Unavailable Unavailable BERNSTEIN, SIERRA Unavailable [address] + [place] [address] D Unavailable Unavailable Unavailable BERNSTEIN, SIERRA Unavailable [address] + [place] [address] D Unavailable Unavailable Unavailable BERNSTEIN, SIERRA Unavailable [address] + [place] [address] D Unavailable Unavailable Unavailable BERNSTEIN, SIERRA Unavailable [address] + [place] [address] D Unavailable Unavailable Unavailable BERNSTEIN, SIERRA Unavailable [address] + [place] [address] D Unavailable Unavailable Unavailable BERNSTEIN, SIERRA Unavailable [address] + [place] [address] D Unavailable Unavailable Unavailable BERNSTEIN, SIERRA Unavailable [address] + [place] [address] D Unavailable Unavailable Unavailable BERNSTEIN, SIERRA Unavailable [address] + [place] [address] D Unavailable Unavailable Unavailable BERNSTEIN, SIERRA Unavailable [address] + [place] [address] D Unavailable Unavailable Unavailable BERNSTEIN, SIERRA Unavailable [address] + [place] [address] D Unavailable Unavailable Unavailable BERNSTEIN, SIERRA Unavailable [address] + [place] [address] D Unavailable Unavailable Unavailable BERNSTEIN, SIERRA Unavailable [address] [place] [address] RD + [place] [address] D Unavailable Unavailable Unavailable BERNSTEIN, SIERRA Unavailable [address] [place] [address] RD + [place] [address] D Unavailable Unavailable Unavailable BERNSTEIN, SIERRA Unavailable [address] + [place] [address] D Unavailable Unavailable Unavailable BERNSTEIN, SIERRA Unavailable [address] [place] [address] RD + [place] [address] D Unavailable Unavailable Unavailable BERNSTEIN, SIERRA Unavailable [address] + [place] [address] D Unavailable Unavailable Unavailable BERNSTEIN, SIERRA Unavailable [address] [place] [address] RD + [place] [address] D Unavailable Unavailable Unavailable BERNSTEIN, SIERRA Unavailable [address] [place] [address] RD + [place] [address] D Unavailable Unavailable Unavailable BERNSTEIN, SIERRA Unavailable [address] + [place] [address] D Unavailable Unavailable Unavailable BERNSTEIN, SIERRA Unavailable [address] + [place] [address] D Unavailable Unavailable Unavailable BERNSTEIN, SIERRA Unavailable [address] [place] [address] RD + [place] [address] D Unavailable Unavailable Unavailable BERNSTEIN, SIERRA Unavailable [address] + [place] [address] D Unavailable Unavailable Unavailable BERNSTEIN, SIERRA Unavailable [address] + [place] [address] D Unavailable Unavailable Unavailable BERNSTEIN, SIERRA Unavailable [address] + [place] [address] D Unavailable Unavailable Unavailable BERNSTEIN, SIERRA Unavailable [address] + [place] [address] D Unavailable Unavailable Unavailable BERNSTEIN, SIERRA Unavailable [address] + [place] [address] D Unavailable Unavailable Unavailable BERNSTEIN, SIERRA Unavailable [address] + [place] [address] D Unavailable Unavailable Unavailable BERNSTEIN, SIERRA Unavailable [address] + [place] [address] Care Team Providers Name Role Phone ENEIAD ALLISON (CODIE) Attending Unavailable ENEIDA ALLISON (CODIE) Referring Unavailable Hunter Del Angel Attending Unavailable Oleghe, Efewongbe Referring Unavailable Oleghe, Efewongbe Primary Care Unavailable Jd Jennings Admitting Unavailable Jd Jennings Attending Unavailable Jd Jennings Referring Unavailable Jd Jennings Attending Unavailable Oleghe, Efewongbe Primary Care Unavailable Jd Jennings Admitting Unavailable Jd Jennings Attending Unavailable Jd Jennings Referring Unavailable Oleghe, Efewongbe Primary Care Unavailable Jd Jennings Consulting Unavailable Jd Jennings Attending Unavailable Oleghe, Efewongbe Referring Unavailable Azucena Esposito Attending Unavailable Oleghe, Efewongbe Referring Unavailable Cris Olson Attending Unavailable Oleghe, Efewongbe Primary Care Unavailable Whitney Cris Referring Unavailable ChicCris isaac Attending Unavailable Oleghe, Efewongbe Referring Unavailable Oleghe, Efewongbe Primary Care Unavailable Azucena Esposito Attending Unavailable Azucena Esposito Referring Unavailable Oleghe, Efewongbe Primary Care Unavailable Oleghe, Efewongbe Primary Care Unavailable Ami Koroma Attending Unavailable Oskar Evans ORTHODONTIST [employer]NER[employer]C Attending Unavailable Oleghe, Efewongbe Referring Unavailable Oleghe, Efewongbe Attending Unavailable Oleghe, Efewongbe Referring Unavailable Oleghe, Efewongbe Primary Care Unavailable Oleghe, Efewongbe Attending Unavailable Oleghe, Efewongbe Referring Unavailable Oleghe, Efewongbe Attending Unavailable Oleghe, Efewongbe Referring Unavailable Oleghe, Efewongbe Primary Care Unavailable Oleghe, Efewongbe Attending Unavailable Oleghe, Efewongbe Referring Unavailable Oleghe, Efewongbe Primary Care Unavailable ReederAfsaneh lazar Attending Unavailable Oleghe, Efewongbe Referring Unavailable Oleghe, Efewongbe Primary Care Unavailable Cris Olson Attending Unavailable Oleghe, Efewongbe Referring Unavailable ReederAfsaneh lazar Attending Unavailable Gwendolyn Afsaneh Referring Unavailable Oleghe, Efewongbe Primary Care Unavailable Oleghe, Efewongbe Attending Unavailable Oleghe, Efewongbe Referring Unavailable Oleghe, Efewongbe Primary Care Unavailable Oleghe, Efewongbe Attending Unavailable Oleghe, Efewongbe Referring Unavailable Oleghe, Efewongbe Primary Care Unavailable Oleghe, Efewongbe Attending Unavailable Oleghe, Efewongbe Referring Unavailable Oleghe, Efewongbe Primary Care Unavailable Cris Olson Attending Unavailable Oleghe, Efewongbe Referring Unavailable Oleghe, Efewongbe Attending Unavailable Oleghe, Efewongbe Referring Unavailable Oleghe, Efewongbe Primary Care Unavailable Oleghe, Efewongbe Attending Unavailable Oleghe, Efewongbe Referring Unavailable Oleghe, Efewongbe Primary Care Unavailable Cris Olson Attending Unavailable Oleghe, Efewongbe Referring Unavailable Oskar Evans ORTHODONTIST SMALL BUSINESS OWNER-C Attending Unavailable Oleghe, Efewongbe Referring Unavailable Cris Olson Attending Unavailable Oleghe, Efewongbe Referring Unavailable Cris Olson Attending Unavailable Whitney Cris Referring Unavailable Oleghe, Efewongbe Primary Care Unavailable Cris Olson Attending Unavailable Whitney Cris Referring Unavailable Oleghe, Efewongbe Primary Care Unavailable Latoya Bingham Attending Unavailable Oskar Evans ORTHODONTIST SMALL BUSINESS OWNER-C Attending Unavailable Oleghe, Efewongbe Referring Unavailable Cris Olsno Attending Unavailable Cris Olson Referring Unavailable Oleghe, Efewongbe Primary Care Unavailable Oleghe, Efewongbe Primary Care Unavailable Blanco, Keven Attending Unavailable Altaf Nascimento Attending Unavailable Juan Alfaro Referring Unavailable PROBLEMS PROBLEMS DATE TYPE CONDITION / CODE ATTENDING STATUS SOURCE 06/14/2018 Unknown L65.9 - Nonscarring Oleghe, Active [place] hair loss, [facility] unspecified / Hospital L65.9(ICD-10) Repository 06/14/2018 Unknown E83.51 - Oleghe, Active [place] Hypocalcemia / [facility] E83.51(ICD-10) Hospital Repository 06/14/2018 Unknown D64.9 - Anemia, Oleghe, Active [place] unspecified / [facility] D64.9(ICD-10) Hospital Repository 05/24/2018 Unknown N92.6 - Irregular Marcanthony, Active [place] menstruation, [facility] unspecified / Hospital N92.6(ICD-10) Repository 05/24/2018 Unknown Z31.81 - Encounter Marcanthony, Active [place] for male factor [facility] infertility in Hospital female patient / Repository Z31.81(ICD-10) 05/24/2018 Unknown 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, Active [place] infertility of other [facility] origin / Hospital N97.8(ICD-10) Repository 05/24/2018 Unknown N94.6 - Marcanthony, Active [place] Dysmenorrhea, [facility] unspecified / Hospital N94.6(ICD-10) Repository 05/24/2018 Unknown N83.201 - Marcanthony, Active [place] Unspecified ovarian [facility] cyst, right side / Hospital N83.201(ICD-10) Repository 05/08/2018 Unknown K35.80 - Unspecified Calabretta, Active [place] acute appendicitis / [facility] K35.80(ICD-10) Hospital Repository 05/05/2018 Unknown R10.31 - Right lower Bean, Hunter Active [place] quadrant pain / Community R10.31(ICD-10) Hospital Repository 03/29/2018 Unknown S73.101D - Chicorelli, Active [place] Unspecified sprain [facility] of right hip, Hospital subsequent encounter Repository / S73.101D(ICD-10) 02/28/2018 Unknown M25.551 - Pain in Chicorelli, Active [place] right hip / [facility] M25.551(ICD-10) Hospital Repository 02/08/2018 Unknown F41.8 - Other Oleghe, Active [place] specified anxiety [facility] disorders / Hospital F41.8(ICD-10) Repository 02/08/2018 Unknown M54.9 - Dorsalgia, Oleghe, Active [place] unspecified / [facility] M54.9(ICD-10) Hospital Repository 02/08/2018 Unknown G89.29 - Other Oleghe, Active [place] chronic pain / [facility] G89.29(ICD-10) Hospital Repository 08/02/2017 Unknown N64.4 - Mastodynia / Reeder, Afsaneh Active [place] N64.4(ICD-10) [facility] Repository 07/27/2017 Unknown E66.9 - Obesity, Oleghe, Active [place] unspecified / [facility] E66.9(ICD-10) Hospital Repository 07/29/2017 Unknown Z98.890 - Other Chicorelli, Active [place] specified [facility] postprocedural Hospital states / Repository Z98.890(ICD-10) PROCEDURES PROCEDURES No Procedure Records FoundRESULTS RESULTS CUPOLA LINER HELPER OFFICE VISIT Observed: 05/24/2018 Status: F Source: [facility] REPORT 3:42 PM [facility] REPOSITORY [facility]'s [address] [place] [address] OFFICE VISIT Date of Service: 05/24/18 MR#: [id number] Acct: [id number] Name: MARKUSCOLLIN CELESTE Rep #: [id number] : 1990 Provider: Azucena Esposito MD Age/Sex: 28/F Location: [facility] Status: Signed Intake Vital Signs05/24/18 Body Mass Index (BMI) 36.5 05/24/18 Height 5 ft 2 in 05/24/18 Weight: 196 lb 4 oz 05/24/18 Body Mass Index (BMI) 35.9 05/24/18 Blood Pressure 138/78 H Intake Visit Reasons: FU on cyst on ovary/Infertility issues Chief Complaint: Ovarian cyst/ Infertility Consult State Inspector Required: No Is patient in pain?: No Allergies naproxen Adverse Reaction (Verified 05/24/18 14:55) Other varenicline tartrate [From Chantix] Adverse Reaction (Verified 05/24/18 14:55) Other Is last menstrual period known: No Post menopausal: No Patient : No : No PFSH Medical History Acute appendicitis (Acute) Right lower quadrant abdominal pain of unknown etiology (Acute) GERD (gastroesophageal reflux disease) (Chronic) Viral syndrome (Acute) Irregular periods (Acute) Foot pain, bilateral (Acute) Obesity (Chronic) Depression with anxiety (Chronic) Scoliosis (Chronic) IBS (irritable bowel syndrome) (Chronic) Chronic back pain (Chronic) Asthma (Chronic) Depression (Chronic) Anxiety (Chronic) Preeclampsia (Acute) Surgical History H/O knee surgery (Acute) History of tonsillectomy (Acute) Hx of breast reduction, elective (Acute) S/P laparoscopic appendectomy (Acute 05/06/18) S/P right knee arthroscopy (Acute) adnoids (Acute) c/s (Acute) Family History Mother Depression Aunt Breast cancer Grandmother Diabetes Uncle Hyperlipemia Menieres disease Depression Social History Smoking Status: Former smoker how long ago did patient quit smokin alcohol intake: never substance use type: does not use caffeine: No what type of physical activity do you participate in: weight training, walking, bicycling, none frequency: 5-6 times per week seatbelt use: always additional social history: cici Meeks [employer]) Patient works at [employer] FU on cyst on ovary/Infertility issues: Details: COLLIN APARICIO is a 28 year old who presents for discussion of fertility and ovarian cyst. she has severe dysmenorrhea and AUB and she has failed nexplanon, IUDs, and ocps in the past. 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 she states if she isn't able to conceive she is considering a hysterectomy. she is planning to takl to I. Female Reproductive History Cycle Length: 21-35 Bleeding Duration: 5 Questions: Metorrhagia: No, Sexually active: Yes Pregancy History 1 Elective abortions Hx Para 1 Spontaneous abortions Past Pregnancies Del. DatName GA/WeeksOutcome Route [facility] Joel Burns LgAnestheMNel LocaProviderFOB e ht en ia tn 04/19/[id number] live birC-sectio Female [facility] ROS Const Constitutional: Denies poor appetite, headache(s), fever(s), increased appetite, weight gain, weight loss or fatigue ENT ENT: Denies dry mouth GI GI: Reports as per HPI; denies vomiting, nausea, abdominal pain or constipation : Reports as per HPI; denies difficulty urinating, blood in urine, pelvic pain, urinary frequency, urinary incontinence, urinary hesitancy, urinary urgency, vaginal discharge, vaginal dryness, vaginal odor, vaginal itching, other, painful urination or nipple discharge Skin Skin/Breast: Denies hair loss, change in hair, dry skin, breast pain, breast skin changes, breast lump or nipple discharge Exam Const General: cooperative, healthy appearing, comfortable, no acute distress, well developed Nutritional Appearance: average body habitus Orientation: alert [facility] Head: normal to inspection, normocephalic Ears: hearing grossly normal bilaterally, external ears normal Nose: external nose normal, nares normal Face and sinus: normal facial exam Neck Neck: normal visual inspection, trachea midline, no lymphadenopathy Thyroid: thyroid normal Resp Effort AND Inspection: normal respiratory effort Musc Other: gross motor intact no deficits, full bilateral strength Skin General: no rashes or lesions noted Neuro Motor: muscle tone normal throughout Assessment AND Plan Problems 1. Irregular periods N92.6 2. Encounter for male factor infertility in female patient Z31.81; N97.8 3. Dysmenorrhea N94.6 4. Right ovarian cyst N83.201 Plan discussed options recommend ultrasound of ovary. discussed infertility, recommend urology evaluation for male factor and back to infertility specialist. Coding Level of Care Code Off vis,est,level 4 Diagnoses Irregular periods N92.6 Encounter for male factor infertility in female patient Z31.81; N97.8 Dysmenorrhea N94.6 Right ovarian cyst N83.201 05/24/18 0742 <Electronically signed by Azucena Esposito MD> Date Azucena Poole Signature: Date (if applicable) CC: SURGERY VISIT REPORT Observed: 05/19/2018 Status: F Source: [place] 10:54 AM [facility] REPOSITORY [facility] [address] [place], [place] [address] OFFICE VISIT Date of Service: 05/19/18 MR#: [id number] Acct: [id number] Name: COLLIN APARICIO Rep #: [id number] : 1990 Provider: Jd Jennings MD Age/Sex: 28/F Location: [facility] Status: Signed Intake Intake Visit Reasons: f/u appy 05/06/2018 Chief Complaint: abdominal pain State Inspector Required: No Is patient in pain?: No Allergies naproxen Adverse Reaction (Verified 05/19/18 10:27) Other varenicline tartrate [From Chantix] Adverse Reaction (Verified 05/19/18 10:27) Other Medications Ibuprofen [Motrin] 800 mg PO PRN PRN 05/05/18 [History Confirmed 05/19/18] Percocet 5-325 5 - 325 mg PO PRN PRN 05/06/18 [History Confirmed 05/19/18] Subjective Details: Patient is doing well after appendectomy. She is tolerating a diet with no abdominal pain. Objective Details: Incisions are clean dry and intact with no signs of erythema or ecchymosis. Assessment AND Plan Problems 1. Acute appendicitis, unspecified acute appendicitis type K35.80 Plan Patient is doing well after her laparoscopic appendectomy Activity and diet as tolerated Jd Jennings MD Pager: [facility] [address] [place] [address], [address] [place] [address] Office: Coding Level of Care Code Global Post Op Diagnoses Acute appendicitis, unspecified acute appendicitis type K35.80 Acute appendicitis type: unspecified acute appendicitis type 05/19/18 1054 <Electronically signed by Jd Jennings MD> Date Jd Jennings MD Cosigner Signature: Date (if applicable) CC: Juan Alfaro MD DISCHARGE SUMMARY Observed: 05/07/2018 Status: F Source: [place] 10:09 AM [facility] REPOSITORY [facility] Medical Records Department [address] [place] [address] Discharge Summary 05/06/18 1054 MR#: [id number] Acct: [id number] Name: COLLIN APARICIO Rep #: [id number] : 1990 28 From: Jd Jennings MD PCP: Juan Alfaro MD Status: DIS ENRIQUE Y Location: [place] [address] Discharge Date and Diagnosis Date of Admission: 05/05/18 Date of Discharge: 05/06/18 - Primary Discharge Diagnosis Active and Suspected Problems (Last Reviewed 05/05/18 @ 17:09 by Bibi Roper) Acute appendicitis (Acute) - Secondary Discharge Diagnosis Chronic Problems (Last Reviewed 05/05/18 @ 17:09 by Bibi Roper) GERD (gastroesophageal reflux disease) (Chronic) Obesity (Chronic) Depression with anxiety (Chronic) Scoliosis (Chronic) IBS (irritable bowel syndrome) (Chronic) Chronic back pain (Chronic) Asthma (Chronic) Depression (Chronic) Anxiety (Chronic) Hospital Course and Treatment Imaging Results: Clinical Impression(s) from Imaging Studies Abdomen/Pelvis CT 05/05/18 18:43 IMPRESSION: Borderline size appendix requiring clinical correlation. Right adnexal cystic nodule. Nonobstructing renal calculi bilaterally. Electronically Signed: Hector Biswas DO at 21:29 EST Tel [phone], Service support , Operations: appendectomy Procedures: None Summary of Care Provided: The patient is a 28 year old F who presented with 2-day history of right lower quadrant pain. The patient had CT which suggested appendicitis. The patient was taken the next morning for laparoscopic appendectomy. The patient's appendix did appear inflamed. The patient was brought back to the floor and when she was tolerating a diet and her pain was well controlled she was discharged home in stable condition. - Physical Exam Vital Signs Temp Pulse Resp BP Pulse Ox 97.0 F L 93 18 124/63 H 97 05/06/18 10:48 05/06/18 10:48 05/06/18 10:48 05/06/18 10:48 05/06/18 10:48 Oxygen Delivery Method Room Air Weight: 193 lb 5.526 oz Body Mass Index (BMI) 36.5 Intake and Output for Last 24 Hours Intake Total 147 / 147 Output Total 300 / 300 Balance -153 / -153 Laboratory Tests Past 24 Hrs WBC 7.3 RBC 4.09 L Hgb 11.8 L Hct 34.8 L MCV 85.1 MCH 28.9 MCHC 33.9 RDW 12.2 RDW Differential 37.9 WBC 5.4 RBC 3.71 L Hgb 11.0 L Discharge Diet: Light diet - advance as tolerated Discharge Activity: May Not Drive - for 3-5 days or while taking narcotic pain meds. May shower in (days): 1 Call your doctor if your incision/area has: Continuous Slow Oozing, Sudden Increased Bleeding, Increased Pain/ Swelling, Increased Redness, Foul Smelling Discharge Call your doctor if you observe: Fever of 101 or Higher Suture Line Care: Avoid Pulling/Pushing, Avoid Pinching/Bending Additional Dressing/Incision Instructions:: Keep dressing clean and dry. Change or remove dressing in 2 days. Leave steri strips for 1 week. May protect with a gauze bandaid. Home Medications: Medications to take at Discharge RX: Ibuprofen [Motrin] 800 mg PO PRN PRN 05/05/18 Oxycodone HCl/Acetaminophen [Percocet 5/325] 1 - 2 tablet PO Q4H PRN PRN 7 Days #30 tablet 05/06/18 Percocet 5-325 5 - 325 mg PO PRN PRN 12/15/18 Following Prescrptions Were Given to Patient: Oxycodone HCl/Acetaminophen [Percocet 5/325] 1 - 2 tablet PO Q4H PRN PRN 7 Days #30 tablet PRN Reason: Pain Primary Care Physician: Juan Alfaro MD [Primary Care Provider] - Please Follow Up With: Jd Jennings MD When: Please call to schedule 2 week follow up appointment. [phone] Medical Necessity - Tobacco Use Smoking Status: Former smoker Meaningful Use Info Meaningful Use Diagnoses (Choose all that apply): None applicable 05/07/18 1009 <Electronically signed by Jd Jennings MD> Date Jd Jennings MD Cosigner Signature (if applicable): Date CC: Jd Jennings MD; uJan Alfaro MD Signed DISCHARGE INSTRUCTION Observed: 05/06/2018 Status: F Source: [facility] 10:52 AM [facility] REPOSITORY [facility] Medical Records Department [address] [place] [address] Instructions for Home/Discharge Instructions 05/06/18 1051 MR#: [id number] Acct: [id number] Name: COLLIN APARICIO Rep #: [id number] : 1990 28 From: Jd Jennings MD PCP: Juan Alfaro MD Status: ADM ENRIQUE Discharge Diet: Light diet - advance as tolerated Discharge Activity: May Not Drive - for 3-5 days or while taking narcotic pain meds. May shower in (days): 1 Lifting Restrictions: 20 lbs for 2 weeks Call your doctor if your incision/area has: Continuous Slow Oozing, Sudden Increased Bleeding, Increased Pain/ Swelling, Increased Redness, Foul Smelling Discharge Call your doctor if you observe: Fever of 101 or Higher Suture Line Care: Avoid Pulling/Pushing, Avoid Pinching/Bending Additional Dressing/Incision Instructions:: Keep dressing clean and dry. Change or remove dressing in 2 days. Leave steri strips for 1 week. May protect with a gauze bandaid. Medications to take at Discharge Ibuprofen [Motrin] 800 mg PO PRN PRN 05/05/18 Percocet 5-325 5 - 325 mg PO PRN PRN 05/06/18 Allergies/Adverse Reactions: Allergies naproxen Adverse Reaction (Verified 05/05/18 18:06) Other varenicline tartrate [From Chantix] Adverse Reaction (Verified 05/05/18 18:06) Other Primary Care Physician: Juan Alfaro MD [Primary Care Provider] - Test Results: Test results from this visit will be discussed in further detail at your follow-up appointment, if applicable. Please Follow Up With: Jd Jennings MD When: Please call to schedule 2 week follow up appointment. [phone] 05/06/18 1052 <Electronically signed by Jd Jennings MD> Date Jd Jennings MD CC: Juan Alfaro MD OPERATIVE REPORT Observed: 05/06/2018 Status: F Source: [place] 10:51 AM [facility] Medical Records Department [address] [place] [address] Operative Report 05/06/18 1049 MR#: [id number] Acct: [id number] Name: COLLIN APARICIO Rep #: [id number] : 1990 28 From: Jd Jennings MD PCP: Juan Alfaro MD Status: ADM ENRIQUE Y Location: [place] [address] Problem List (1) Acute appendicitis Status: Acute Qualifiers: Acute appendicitis type: unspecified acute appendicitis type Qualified Code(s): K35.80 - Unspecified acute appendicitis Report of Operation Date of Procedure: 05/06/18 Pre-Operative Diagnosis: Acute appendicitis Post-Operative Diagnosis: Acute appendicitis Surgery/Procedure Performed:: Laparoscopic appendectomy Specimen's removed: Appendix Description of Procedure: The patient was brought into the operating room and general anesthesia was induced. The left arm was tucked and the abdomen was prepped and draped in usual sterile fashion. A small midline incision was made superior to the umbilicus and deepened to the level of the fascia. The fascia was elevated and incised. The peritoneum was also elevated and incised. A finger sweep was performed and a balloon trocar was placed into the abdomen and inflated. The abdomen was insufflated to 15 mmHg and the camera was inserted and the abdomen was inspected for any injuries upon entering the abdomen. There were none. The patient was placed in Trendelenburg position and a 5 mm ports placed in the left lower quadrant and suprapubic areas under direct visualization. The right ovary was examined and appeared to be cystic in nature. Next using atraumatic bowel graspers the appendix was identified. The appendix appeared inflamed. The appendix was grasped and elevated and a harmonic scalpel was used to take down the mesoappendix. A stapler was used to come across the base of the appendix. The appendix was then placed in Endo Catch bag and removed through the umbilical incision. The staple line was inspected and found to be hemostatic and intact. The 2 5 mm ports are removed under direct visualization. The balloon trocar was deflated and removed and all the air was removed from the abdomen. The umbilical incision fascia was closed with an 0 Vicryl [id number] suture. The incisions were then irrigated with saline and dried. Local anesthetic was injected into the incision sites. The skin incisions were then closed with interrupted 4-0 Monocryl suture and Steri-Strips. Bandages were applied and the patient was awoken and taken to PACU in stable condition. Patient tolerated the procedure well. - Admit VTE Documentation VTE Mechan Device Prophylaxis: SCD's 05/06/18 1051 <Electronically signed by Jd Jennings MD> Date Jd Jennings MD CC: Jd Jennings MD; Juan Alfaro MD Signed APPENDIX Observed: 05/06/2018 Status: F Source: [facility] 10:00 AM [facility] REPOSITORY Patient: COLLIN APARICIO : 1990 (28/F) Acct Num: [id number] Phys: Jd Jennings MD Unit Num: [id number] Loc: MS2 [id number] Specimen: [id number] Received: 05/08/18939 Spec Type: APPENDIX TISSUES 1 TISSUES: Appendix, NOS GROSS DESCRIPTION Received is one container labeled with the patient's name and designated appendix. The specimen consists of a vermiform appendix measuring 6 cm in length and 1 cm in average diameter. No gross perforations are present. Serial sections reveal an obliterated lumen. [employer] sections are submitted in one cassette. / AM: 05/08/18 TC:2 CPT: 40076 HEADER OPERATION: Laparoscopic, appendectomy PRE-OP DIAGNOSIS: Acute appendicitis TISSUE SUBMITTED: Appendix MICROSCOPIC DESCRIPTION Slides are reviewed. MICROSCOPIC DIAGNOSIS Appendix, appendectomy: Acute appendicitis. Acute serositis. AM: 05/09/18 Signed Morgan Rolon, DO 05/09/18 <signature on file> Performed By: #### JOHAN #### [facility] [address] [place], [address] CBC W/DIFF, AUTOMATED Collected: 05/06/2018 Status: F Source: [place] 6:40 AM [facility] REPOSITORY TYPE CODE TESTS RESULT OUT OF RANGE REFERENCE UNITS LAB L100.1000 4.4-11.0 K/mm3 Normal WBC 5.4 LAB L100.1200 4.2-5.4 M/mm3 Low RBC 3.71 LAB L100.1300 12.0-15.0 g/dl Low HGB 11.0 LAB L100.1400 37-47 % Low HCT 31.9 LAB L100.1500 81-99 fL Normal MCV 86.0 LAB L100.1600 27.0-32.0 pg Normal MCH 29.6 LAB L100.1700 32-36 g/gl Normal MCHC 34.5 LAB L100.1810 11.6-14.6 % Normal RDW CV 12.1 LAB L100.1820 35.1-43.9 fl Normal RDW SD 36.7 LAB L100.1900 150-450 K/mm3 Normal PLT 298 LAB L100.2000 6.2-12.0 fl Normal MPV 9.2 LAB L100.2100 47-70 % Normal NEUT% 56.6 LAB L100.2200 19-41 % Normal LY% 34.1 LAB L100.2300 0-10 % Normal MONO% 8.5 LAB L100.2400 0-5 % Normal EO% 0.4 LAB L100.2500 0-1 % Normal BASO% 0.4 LAB L100.2550 0.0-0.9 % Normal IM GRAN % 0.000 Result Comment: IG% - Immature Granulocytes (promyelocytes, myelocytes and metamyelocytes) > 1% indicates that a LEFT SHIFT is Present. LAB L100.2620 2.0-7.7 X10 3/uL Normal Absolute Neut 3.1 LAB L100.2720 0.83-4.51 X10 3/ul Normal Absolute Lymph 1.84 Performed By: #### L100.0100 #### [facility] [address] [place], [address] BASIC METABOLIC Collected: 05/06/2018 Status: F Source: [place] PROFILE ([facility]) 6:40 AM [facility] REPOSITORY TYPE CODE TESTS RESULT OUT OF RANGE REFERENCE UNITS LAB L501.0100 74-106 mg/dL Normal GLU 105 Result Comment: Fasting Glucose result from 100 to 125 mg/dL suggests IMPAIRED HOMEOSTASIS per A.D.A. criteria. Please note revised GLUCOSE reference range effective 2017. LAB L501.1000 7-18 mg/dL Normal BUN 9 LAB L501.1100 0.55-1.02 mg/dL Normal CREAT,SERUM 0.58 Result Comment: The validity of the calculated GFR AND GFRAA in patients over 70 years has not been determined. Clinical correlation is essential. LAB L501.1110 >60 mL/min Normal EST GFR 130 Result Comment: Non- GFR Calc LAB L501.1115 >60 mL/min Normal EST GFR - AA 158 Result Comment: GFR Calc LAB L501.1255 ml/min Normal Estimated CRCL 108.97 LAB L501.1300 10-20 RATIO BUN/CRE Normal 15.4 LAB L501.2200 8.5-10 mg/dL Low .1 CA 8.0 LAB L501.5300 136-14 mmol/L 5 NA Normal 141 LAB L501.5600 3.5-5. mmol/L 1 K Normal 3.9 LAB L501.5900 98-107 mmol/L CL Normal 107 LAB L501.6100 21.0-3 mmol/L 2.0 CO2 Normal 26.0 LAB L501.6200 5-15 GAP Normal 8 Performed By: #### L500.2500 #### [facility] [address] [facility] [place], [address] EMERGENCY DEPARTMENT Observed: 05/06/2018 Status: F Source: [place] SUMMARY 12:05 AM [facility] REPOSITORY [facility] Medical Records Department [address] [place] [address] Emergency Department Summary 05/05/18 2224 MR#: [id number] Acct: [id number] Name: COLLIN APARICIO Rep #: [id number] : 1990 28 From: Es Alvarado MD PCP: Juan Alfaro MD Status: ADM ENRIQUE - ER Visit Summary Date of Service: 05/05/18 Chief Complaint: Abdominal pain History of Present Illness: The patient is a 28 F with abdominal pain for the past 2 days, initially started in the periumbilical region and now down to the right lower quadrant. She had decreased appetite and decreased p.o. intake. She felt warm but did not measure a fever. She denies dysuria. She is a history of IBS but states this does not feel like her prior flares. Only prior surgical history is a . Physical Examination: Vital signs unremarkable. Patient is sitting upright in bed. She is nontoxic appearing. Heart is regular rate and rhythm. Lung sounds are clear. Abdomen is soft with tenderness in the right lower quadrant. She has some guarding. Hypoactive but present bowel sounds are noted throughout. Test Results: CBC was normal white count and differential. Hemoglobin is 11.8. Chemistry studies normal. Urinalysis normal. test normal. CT abdomen and pelvis with contrast reveals borderline sized appendix. A right adnexal cystic nodules noted at 2.8 x 1.8 cm. Emergency Department Course and Treatment: Patient is given morphine, Zofran, and IV fluids. Following completion of CT and lab work, test results are discussed with patient and family. I spoke with Dr. Carter, on-call for surgery. He reviewed the imaging and is concerned that there is not air or contrast in the lumen of her appendix. Patient is given a dose of Zosyn tonight and will be reevaluated with probable surgery for appendicitis at that time. Treatment Plan: [] Disposition: Admit Impression: 1. Appendicitis 2. Right ovarian cyst This note was generated with [employer] software. It may contain incorrect words, spelling, and punctuation that were not noted in review of the chart prior to signing ED Disposition - Plan for ED Patient: Chief Complaint: Abd Pain Referrals: Juan Alfaro MD [Primary Care Provider] - What to do if you have Problems For any increased pain, shortness of breath, bleeding, nausea or vomiting, chest pain, or any unexpected problems, contact your Primary Care Provider. Call [employer] [facility] ([phone]) or report to the closest Emergency Room. Call 911 if necessary. 05/06/18 0005 <Electronically signed by Es Alvarado MD> Date Es Alvarado MD Cosigner Signature (If Indicated): Date CC: Juan Alfaro MD HISTORY AND PHYSICAL Observed: 05/05/2018 Status: F Source: [place] EXAM 10:29 PM [facility] REPOSITORY [facility] Medical Records Department [address] [place] [address] History and Physical 05/05/184 MR#: [id number] Acct: [id number] Name: COLLIN APARICIO Rep #: [id number] : 1990 28 From: Jd Jennings MD PCP: Juan Alfaro MD Status: REG ER Y Location: ED Problem List (1) Acute appendicitis Status: Acute Qualifiers: Acute appendicitis type: unspecified acute appendicitis type Qualified Code(s): K35.80 - Unspecified acute appendicitis History of Present Illness Date of Admission: 05/05/18 The patient is a 28 year old F complaining of right lower quadrant pain. The patient reports his pain is in the periumbilical and right lower quadrant. She does have nausea. She rates her pain as an 8 out of 10. She is not having any vomiting or dysuria. The patient does not report any fevers or chills. Past Medical History Past Medical History (Chronic Problems): Chronic Problems (Last Reviewed 05/05/18 @ 17:09 by Bibi Roper) GERD (gastroesophageal reflux disease) (Chronic) Obesity (Chronic) Depression with anxiety (Chronic) Scoliosis (Chronic) IBS (irritable bowel syndrome) (Chronic) Chronic back pain (Chronic) Asthma (Chronic) Depression (Chronic) Anxiety (Chronic) Medical History: Medical History (Last Reviewed 05/05/18 @ 17:09 by Bibi Roper) Scoliosis (Chronic) M41.9 IBS (irritable bowel syndrome) (Chronic) K58.9 Chronic back pain (Chronic) M54.9, G89.29 Asthma (Chronic) J45.909 Depression (Chronic) F32.9 Anxiety (Chronic) F41.9 Preeclampsia O14.90 Allergies naproxen Adverse Reaction (Verified 05/05/18 18:06) Other varenicline tartrate [From Chantix] Adverse Reaction (Verified 05/05/18 18:06) Other Home Medications: Ambulatory Orders Medication Instructions Recorded NK 04/12/18 Surgical History: Surgical History (Last Reviewed 05/05/18 @ 17:09 by Bibi Roper) H/O knee surgery Z98.890 History of tonsillectomy Z98.890, Z90.89 Hx of breast reduction, elective Z98.890 S/P right knee arthroscopy Z98.890 05/06/17 adnoids c/s Surgical History: tonsillectomy, - - C Section, knee scopes Psychiatric History: Anxiety, Depression Smoking Status: Former smoker Alcohol: None - *Family History Maternal Family History: Family History (Last Reviewed 05/05/18 @ 17:09 by Bibi Roper) Mother Depression Aunt Breast cancer Grandmother Diabetes Uncle Hyperlipemia Menieres disease Depression Review of Systems Constitutional: Denies: Anorexia, Fever HEENT: Denies: Difficulty Swallowing Cardiovascular: Denies: Chest Pain Respiratory: Denies: Cough Gastrointestinal: Reports: Abdominal Pain, Nausea. Denies: Hematochezia, Vomiting Genitourinary: Denies: Dysuria Musculoskeletal: Denies: Joint Tenderness Skin: Denies: Dryness, Jaundice Neurological: Denies: Balance problems Psychiatric: Reports: Anxiety, Depression Hematologic/ Lymphatic: Denies: Anemia, Easy Bruising VTE Information - Inpt Only VTE Present on Admission: No VTE Mechan Device Prophylaxis: SCD's Patient Problems: Active and Suspected Problems (Last Reviewed 05/05/18 @ 17:09 by Bibi Roper) Acute appendicitis (Acute) - Physical Exam General: Alert, Oriented x3, Cooperative, No apparent distress HEENT: Atraumatic Neck: No JVD Lungs: Normal air movement Cardiovascular: Regular rate, Regular Rhythm Abdomen: Soft, Non-Distended, Obese, Tender - Right lower quadrant tenderness. No guarding or rebound. Exquisitely tender to touch. Extremities: No clubbing Skin: No rashes Musculoskeletal: No Muscle Wasting Neurological: Cranial nerves II-XII grossly intact Psych/Mental Status: Normal Affect Vital Signs Temp Pulse Resp BP Pulse Ox 98.1 F 87 16 123/74 H 98 05/05/18 21:42 05/05/18 22:12 05/05/18 22:12 05/05/18 22:12 05/05/18 18:06 Oxygen Delivery Method Room Air Weight: 196 lb 10.437 oz Body Mass Index (BMI) 37.1 Laboratory Tests Past 24 Hrs WBC 7.3 RBC 4.09 L Hgb 11.8 L Hct 34.8 L MCV 85.1 MCH 28.9 MCHC 33.9 RDW 12.2 RDW Differential 37.9 WBC RBC Hgb Hct MCV MCH MCHC RDW RDW Differential Plt Count MPV Immature Gran % (Auto) Neut % (Auto) Lymph % (Auto) Woodson % (Auto) Clinical Impression(s) from Imaging Studies Abdomen/Pelvis CT 05/05/18 18:43 IMPRESSION: Borderline size appendix requiring clinical correlation. Right adnexal cystic nodule. Nonobstructing renal calculi bilaterally. Electronically Signed: Hector Biswas DO at 21:29 EST Tel [phone], Service support , Assessment/Plan All Active Problems (Last Reviewed 05/05/18 @ 17:09 by Bibi Roper) Acute appendicitis (Acute) Right lower quadrant abdominal pain of unknown etiology (Acute) Viral syndrome (Acute) Irregular periods (Acute) Foot pain, bilateral (Acute) 28-year-old female with possible acute appendicitis 1. The patient is having right lower quadrant pain which is very severe. She is also having nausea. She had a normal white count with no left shift but her CT scan was read as borderline thickening. The appendix does look thickened on the CT scan and it contains no contrast. I am concern for acute appendicitis as her appendix does not appear this large on her last CT scan. I explained that this may not be appendicitis but an exploratory laparoscopy with appendectomy would be the only way to ensure that. 2. I explained laparoscopic appendectomy to the patient in detail. I explained the risks including but not limited to bleeding, infection, injury to surrounding organs such as the bowels or bladder or ureter. The patient understands the risks and is willing to proceed with surgery. 3. I will admit the patient and keep her n.p.o. and place her on antibiotics and take her for laparoscopic appendectomy in the morning. Jd Jennings MD Pager: [facility] [address] [place] [address] Office: 05/05/182228 <Electronically signed by Jd Jennings MD> Date Jd Jennings MD Cosigner Signature: Date (if applicable) CC: Jd Jennings MD; Juan Alfaro MD Signed URINALYSIS, COMPLETE Collected: 05/05/2018 Status: F Source: [place] 7:30 PM [facility] REPOSITORY Order Comment: How was Urine Obtained? CLEAN CATCH TYPE CODE TESTS RESULT OUT OF RANGE REFERENCE UNITS LAB L400.3000 Yellow COLOR Normal Yellow LAB L400.3050 Clear Normal CLARITY Sl. Cloudy LAB L400.3200 Normal mg/dl Normal GLUCOSE, UR Normal LAB L400.3300 Negative mg/dL Normal BILIRUBIN URINE Negative LAB L400.3400 Negative mg/dl High 5 KETONE UR LAB L400.3465 1.002-1.030 Normal SP.GR. DIPSTX 1.015 LAB L400.3550 5.0 - 8.0 pH UR Normal 6.5 LAB L400.3600 Negative mg/dl PROT Normal DIPSTX Negative LAB L400.3700 Normal mg/dl Normal UROBILI Normal LAB L400.3750 Negative Normal NITRITE UR Negative LAB L400.3780 Negative /ul Normal OCCULT BLOOD-UR Negative LAB L400.3800 Negative /ul LEUK Normal ESTERASE Negative LAB L400.4050 0-5 /hpf WBC 0 Normal SEEN LAB L400.4100 0-5 /hpf 0 Normal RBC-UA SEEN LAB L400.4150 5-10 /hpf SQUAM Normal EPI 0-5 SEEN LAB L400.4300 None Seen /hpf Normal BACTERIA RARE LAB L400.4350 <or=2+ /hpf 0 Normal MUCUS, URINE SEEN LAB L400.5200 None Seen /hpf Normal YEAST-URINE RARE Performed By: #### L400.0001 #### [facility] [address] [place], [place], [address] CBC W/DIFF, AUTOMATED Collected: 05/05/2018 Status: F Source: [facility] 7:05 PM [facility] REPOSITORY TYPE CODE TESTS RESULT OUT OF RANGE REFERENCE UNITS LAB L100.1000 4.4-11.0 K/mm3 Normal WBC 7.3 LAB L100.1200 4.2-5.4 M/mm3 Low RBC 4.09 LAB L100.1300 12.0-15.0 g/dl Low HGB 11.8 LAB L100.1400 37-47 % Low HCT 34.8 LAB L100.1500 81-99 fL Normal MCV 85.1 LAB L100.1600 27.0-32.0 pg Normal MCH 28.9 LAB L100.1700 32-36 g/gl Normal MCHC 33.9 LAB L100.1810 11.6-14.6 % Normal RDW CV 12.2 LAB L100.1820 35.1-43.9 fl Normal RDW SD 37.9 LAB L100.1900 150-450 K/mm3 Normal PLT 316 LAB L100.2000 6.2-12.0 fl Normal MPV 8.9 LAB L100.2100 47-70 % Normal NEUT% 53.3 LAB L100.2200 19-41 % Normal LY% 38.3 LAB L100.2300 0-10 % Normal MONO% 7.5 LAB L100.2400 0-5 % Normal EO% 0.4 LAB L100.2500 0-1 % Normal BASO% 0.4 LAB L100.2550 0.0-0.9 % Normal IM GRAN % 0.100 Result Comment: IG% - Immature Granulocytes (promyelocytes, myelocytes and metamyelocytes) > 1% indicates that a LEFT SHIFT is Present. LAB L100.2620 2.0-7.7 X10 3/uL Normal Absolute Neut 3.9 LAB L100.2720 0.83-4.51 X10 3/ul Normal Absolute Lymph 2.79 Performed By: #### L100.0100 #### [facility] [address] [place], [address] BASIC METABOLIC Collected: 05/05/2018 Status: F Source: [place] PROFILE ([facility]) 7:05 PM [facility] REPOSITORY TYPE CODE TESTS RESULT OUT OF RANGE REFERENCE UNITS LAB L501.0100 74-106 mg/dL Normal GLU 91 Result Comment: Please note revised GLUCOSE reference range effective 2017. LAB L501.1000 7-18 mg/dL Normal BUN 12 LAB L501.1100 0.55-1.02 mg/dL Normal CREAT,SERUM 0.60 Result Comment: The validity of the calculated GFR AND GFRAA in patients over 70 years has not been determined. Clinical correlation is essential. LAB L501.1110 >60 mL/min Normal EST GFR 127 Result Comment: Non- GFR Calc LAB L501.1115 >60 mL/min Normal EST GFR - AA 154 Result Comment: GFR Calc LAB L501.1255 ml/min Normal Estimated CRCL 105.34 LAB L501.1300 10-20 RATIO High BUN/CRE 20.1 LAB L501.2200 8.5-10 mg/dL .1 CA Normal 8.8 LAB L501.5300 136-14 mmol/L 5 NA Normal 140 LAB L501.5600 3.5-5. mmol/L 1 K Normal 3.8 LAB L501.5900 98-107 mmol/L CL Normal 103 LAB L501.6100 21.0-3 mmol/L 2.0 CO2 Normal 29.0 LAB L501.6200 5-15 GAP Normal 8 Performed By: #### L500.2500 #### [facility] [address] [place] [place], [address] ,SERUM,HCG QUALI. Collected: Status: F Source: [place] 05/05/2018 7:05 PM [facility] REPOSITORY TYPE CODE TESTS RESULT OUT OF REFERENCE UNITS RANGE LAB L700.7000 0-9 Nonpreg Negative Normal HCGSQUAL NEGATIVE LAB L700.6700 =>Qualitative mIU/mL Normal HCG Qual < 1 triggr Performed By: #### L700.6800 #### [facility] [address] [place], [address] ABDOMEN/PELVIS WITH Observed: 05/05/2018 Status: F Source: [place] CONTRAST 6:45 PM [facility] REPOSITORY [facility] Imaging Services [address] [place] [address] Abdomen/Pelvis WITH Contrast MR#: [id number] Acct: [id number] Name: COLLIN APARICIO Rep #: [id number] : 1990 F 28 From: Hector Biswas DO PCP: Juan Alfaro MD Status: REG ER Study: Abdomen/Pelvis WITH Contrast Date of Exam: 05/05/18 Exam# [id number] Ordering Dr: Es Alvarado MD STUDY: CT ABDOMEN AND PELVIS WITH CONTRAST REASON FOR EXAM: Female, 28 years old. Abdominal pain on the right RADIATION DOSAGE (If Supplied By Facility): CTDIvol = ( 16.95 ) mGy, DLP = ( 1212.74 ) mGycm TECHNIQUE: Transaxial images were obtained from the dome of the diaphragm to the symphysis pubis without oral contrast. 100ML ml of Isovue 300 contrast was administered. Sagittal and coronal images were reconstructed. Individualized dose optimization techniques were used for this CT. COMPARISON: December 20, 2015 FINDINGS: The visualized lung bases are unremarkable. The visualized portions of the heart are within normal limits. Normal liver. Normal gallbladder and extrahepatic biliary system. Normal spleen. Normal pancreas. Normal bilateral adrenal glands. Nonobstructive 2 mm stone in the right kidney. Nonobstructive punctate stone in the left kidney. Normal visualized stomach. Normal small intestine. Normal colon. The appendix is borderline in size requiring clinical correlation. Normal abdominal aorta. Normal inferior vena cava. Normal retroperitoneum. Normal urinary bladder. There is a right adnexal 2.8 x 1.8 cm cystic nodule. Normal abdominal wall. Normal osseous structures. CT/Abdomen/Pelvis WITH Contrast IMPRESSION: Borderline size appendix requiring clinical correlation. Right adnexal cystic nodule. Nonobstructing renal calculi bilaterally. Electronically Signed: Hector Biswas DO at 21:29 EST Tel [phone], Service support , CC: Juan Alfaro MD; Es Alvarado MD Risk Consultant: Signed URGENT CARE VISIT Observed: 05/05/2018 Status: F Source: [place] REPORT 5:42 PM [facility] REPOSITORY [facility] [address] [place] [address] [address] [place] [address] OFFICE VISIT Date of Service: 05/05/18 MR#: [id number] Acct: [id number] Name: COLLIN APARICIO Rep #: [id number] : 1990 Provider: Hunter LEON Age/Sex: 28/F Location: [facility] Status: Signed Intake Vital Signs05/05/18 Body Mass Index (BMI) 36.2 05/05/18 Height 5 ft 1 in 05/05/18 Weight: 192 lb 05/05/18 Body Mass Index (BMI) 36.2 05/05/18 Blood Pressure 122/80 H Intake Visit Reasons: ABDOMINAL PAIN Chief Complaint: ABDOMINAL PAIN State Inspector Required: No Accompanied by: CHILD Is patient in pain?: Yes (ABDOMINAL) Allergies naproxen Adverse Reaction (Verified 05/05/18 17:08) Other varenicline tartrate [From Chantix] Adverse Reaction (Verified 05/05/18 17:08) Other Medications NK 04/12/18 [History Confirmed 05/05/18] [facility] Medical History Scoliosis (Chronic) IBS (irritable bowel syndrome) (Chronic) Chronic back pain (Chronic) Asthma (Chronic) Depression (Chronic) Anxiety (Chronic) Preeclampsia (Acute) Surgical History H/O knee surgery (Acute) History of tonsillectomy (Acute) Hx of breast reduction, elective (Acute) S/P right knee arthroscopy (Acute) adnoids (Acute) c/s (Acute) Family History Mother Depression Aunt Breast cancer Grandmother Diabetes Uncle Hyperlipemia Menieres disease Depression Social History Smoking Status: Never smoker how long ago did patient quit smokin alcohol intake: never substance use type: does not use caffeine: No what type of physical activity do you participate in: weight training, walking, bicycling, none frequency: 5-6 times per week seatbelt use: always additional social history: cici Constantino ([employer]) Patient is unemployed HPI HPI Chief Complaint: ABDOMINAL PAIN Details: COLLIN APARICIO, is a 28 F who presents to the office today for complaint of right lower quadrant and umbilical pain for the past 12 hours. Patient states that she awoke this morning with pain around her umbilical region and just to the right of it. She describes her pain as sharp and rates the pain a 7 out of 10 made worse by laying back or laying down. She does also report a history of IBS however has never had symptoms like this with a flareup of her IBS. She denies any nausea, vomiting, diarrhea. No fever, chills, sweats. She states her last menstrual period was approximately 2 weeks ago. No other associated symptoms or alleviating/aggravating factors. ROS Const Constitutional: No chills, fever(s), fatigue or abnormal sleep pattern Resp Respiratory: No shortness of breath or chest congestion Cardio Cardiology: No chest pain at rest, chest pain with exertion or shortness of breath Gastro GI: Positive for nausea/dyspepsia and abdominal pain; no diarrhea, Vomiting blood/hematemesis, Black,tarry stools, vomiting, cramping, change in stool character, blood in stool or incontinent of stools Skin Skin: No wounds or lesions Neuro Neurology: No behavioral changes or confusion Psych Psychiatric: No abnormal sleep pattern, No behavioral changes, No confusion Endo Endocrine: No fatigue Exam Const General: cooperative, healthy appearing [facility] Head: normocephalic, atraumatic Ears: hearing grossly normal bilaterally Face and sinus: face symmetric Eyes General: appearance normal, both eyes and all related structures Pupils: PERRL Resp Effort AND Inspection: normal respiratory effort Auscultation: Bilateral: Clear to Auscultation Cardio Rate: regular rate Rhythm: regular rhythm Heart Sounds: S1 normal, S2 normal GI Inspection: normal to inspection Auscultation: hyperactive bowel sounds Percussion: normal to percussion Palpation: no hepatosplenomegaly, guarding in the RLQ, tender periumbilically, in the RLQ and at McBurney's point; Negative for obturator sign negative or psoas sign negative General: No CVA tenderness, bimanual renal exam normal bilaterally Skin General: no rashes or lesions noted Neuro General: alert, CN's II-XI intact bilaterally Psych Appearance: grossly normal Mental Status: mental status grossly normal Assessment AND Plan Problems 1. Right lower quadrant abdominal pain of unknown etiology R10.31 Status Acute Plan Due to the patient guarding and 7 out of 10 pain patient has been advised to report to [facility] ED for further evaluation and treatment. Patient verbalized that she will report to the ED immediately following taking her daughter home. Patient advised of potential red flags and verbalized understanding and agreeing with of all the above. Coding Level of Care Code Off vis,new,level 3 Diagnoses Right lower quadrant abdominal pain of unknown etiology R10.31 05/05/18 1742 <Electronically signed by Hunter LEON> Date Hunter LEON Cosigner Signature: Date (if applicable) CC: ORTHOPEDIC VISIT Observed: 04/24/2018 Status: F Source: [place] RE[facility] 12:10 PM [facility] REPOSITORY [facility] Orthopaedics AND Sports Medicine [address] [place] [address] OFFICE VISIT Date of Service: 04/21/18 MR#: [id number] Acct: [id number] Name: COLLIN APARICIO Rep #: [id number] : 1990 Provider: CAROLYN Nascimento Age/Sex: 27/F [place] [facility] [place]: S[place] Intake Vital Signs04/24/18 Body Mass Index (BMI) 36.2 Intake Visit Reasons: RIGHT HIP Chief Complaint: cough Is patient in pain?: Yes Allergies naproxen Adverse Reaction (Verified 04/12/18 19:23) Other varenicline tartrate [From Chantix] Adverse Reaction (Verified 04/12/18 19:23) Other Medications NK 04/12/18 [History Confirmed 04/12/18] PFSH Medical History Scoliosis (Chronic) IBS (irritable bowel syndrome) (Chronic) Chronic back pain (Chronic) Asthma (Chronic) Depression (Chronic) Anxiety (Chronic) Preeclampsia (Acute) Surgical History H/O knee surgery (Acute) History of tonsillectomy (Acute) Hx of breast reduction, elective (Acute) S/P right knee arthroscopy (Acute) adnoids (Acute) c/s (Acute) Family History Mother Depression Aunt Breast cancer Grandmother Diabetes Uncle Hyperlipemia Menieres disease Depression Social History Smoking Status: Never smoker how long ago did patient quit smokin alcohol intake: never substance use type: does not use caffeine: No what type of physical activity do you participate in: weight training, walking, bicycling, none frequency: 5-6 times per week seatbelt use: always additional social history: cici Meeks ([employer]) Patient is unemployed HPI RIGHT HIP: Details: COLLIN APARICIO is a 27 year old F here today for MRI f/u right hip. She continues to have pain in the groin, she has pain with standing, walking and sitting. She only has relief with lying flat. Her pain is sharp and constant. She recently went to the ED due to the pain, her PCP refused pain meds and the ED gave her 10 days worth of Percocet. She states her PT was not helpful. [place] [facility] [place] per [place]PI, Reports joint pain, Reports abnormal walking, Reports limited joint movement Neuro Yes abnormal walking Ortho Exam Right Hip Contralateral Normal: Yes Hip: absent eccymosis, absent soft tissue swelling, absent erythema, absent TTP Greater Troch Impingement Test: 1 Labral Stress Test: 2 Special Tests: No pain with log roll, No iliopsoas snap, No IT band snap Homans Sign: No HIP: Patient presents to the office today with an obvious antalgic gait. On examination there is no evidence of localized or generalized swelling of the hip. Patient has full range of motion of the hip at the same time she does have pain with most movements. She has more pains with hip flexion as well as hip abduction. She does not have any pains or very minimal pains with abduction and extension. Assessment AND Plan Problems 1. Tear of right acetabular labrum, initial encounter S73.191A Plan Patient presents today for a patient of right hip pain. Patient has already been evaluated and had an MRI of the hip which shows a right labral tear. She has done physical therapy and tried other anti-inflammatories without any relief. She has pains with every day activities of living and in the office today shows pain with mainly flexion and abduction of the right hip along with some impingement signs. At this time we discussed the anatomy and physiology of the hip as well as the pathophysiology of her injury. We discussed treatment options for labral tears which included doing nothing, physical therapy, injections, and surgical intervention. Patient has already completed physical therapy stating it did not help and therefore does not want to continue. At this time we are going to set her up with Dr. Boogie for a possible intra-articular injection and also recommended that she begin to find an orthopedist through her insurance who does hip scopes as our surgeon will be on maternity leave and unable to perform this procedure for her. In the meantime she is to ice the area and can take anti-inflammatories as needed for pain. She is to notify the office if any worsening symptoms including locking or instability of the hip. Still recommend seeing her back after the hip injection and especially if she has not found another surgeon to me within the meantime. Coding Level of Care Code Off vis,est,level 3 Diagnoses Tear of right acetabular labrum, initial encounter S73.191A Encounter type: initial encounter 04/24/18 1210 <Electronically signed by Altaf LEON> Date Altaf LEON Cosigner Signature: Date (if applicable) CC: EMERGENCY DEPARTMENT Observed: 04/12/2018 Status: F Source: [place] SUMMARY 10:57 PM [facility] REPOSITORY [facility] Medical Records Department [address] [facility] [place] [address] Emergency Department Summary 04/12/181913 MR#: [id number] Acct: [id number] Name: COLLIN APARICIO Rep #: [id number] : 1990 27 From: Keven Blanco MD PCP: Juan Alfaro MD Status: DEP ER - ER Visit Summary Date of Service: 04/12/18 Chief Complaint: Acute on chronic right hip pain History of Present Illness: The patient is a 27 F history of depression and anxiety. Prior knee scopes. Currently under the care of Dr. Cris Olson of orthopedics. Patient had 6-month history of right hip pain. She had an MRI done on Tuesday which showed a labral tear. She is complaining of increasing pain. No new fall or trauma. No fever or redness. Pain is worse with walking. Physical Examination: Young female no acute distress. Vital signs are stable and afebrile. H EENT exam unremarkable. Lungs clear to auscultation bilaterally. Heart regular rhythm no murmur. Abdomen soft and nontender. Normal bowel sounds no peritoneal signs. Extremities moves all 4. Neurovascular intact. Right foot has normal dorsi plantar flexion normal DP pulse. She is able to flex and extend the right hip, right knee and right ankle. She has worsening pain with flexion of the right hip. There is no redness or swelling of the right hip. There is no gross bony deformity. She has normal range of motion. Test Results: None Emergency Department Course and Treatment: I reviewed the patient's MRI results from Tuesday. They do show a labral tear. Treatment Plan: She states that the tramadol is not covering her pain. She will be written for limited Percocet 10 no refill otherwise ibuprofen and follow- up with her orthopedic surgeon Dr. Olson Disposition: dc Impression: Acute on chronic right hip pain with a known labral tear diagnosed by MRI This note was generated with [employer] dictation software. It may contain incorrect words, spelling, and punctuation that were not noted in review of the chart prior to signing ED Disposition - Plan for ED Patient: Chief Complaint: Lower Extremity Injury Referrals: Juan Alfaro MD [Primary Care Provider] - What to do if you have Problems For any increased pain, shortness of breath, bleeding, nausea or vomiting, chest pain, or any unexpected problems, contact your Primary Care Provider. Call [facility] ([phone]) or report to the closest Emergency Room. Call 911 if necessary. 04/12/18 7273 <Electronically signed by Keven Blanco MD> Date Keven Blanco MD Cosigner Signature (If Indicated): Date CC: Juan Alfaro MD DISCHARGE INSTRUCTION Observed: 04/12/2018 Status: F Source: [place] 10:57 PM [facility] Medical Records Department [address] [place] [address] Discharge Instruction 04/12/18 1917 MR#: [id number] Acct: [id number] Name: COLLIN APARICIO N Rep #: [id number] : 1990 27 From: Keven Blanco MD PCP: Juan Alfaro MD Status: DEP ER ED Disposition - Plan for ED Patient: Disposition: Home or Assisted Living Chief Complaint: Lower Extremity Injury Prescriptions: Oxycodone HCl/Acetaminophen [Percocet 10-325 mg Tablet] 1 tab PO Q6H PRN PRN #10 tab PRN Reason: Pain Referrals: Cris Olson DO [STAFF PHYSICIAN] - As soon as possible Additional Instructions: Percocet for pain otherwise ibuprofen. Call and follow-up with orthopedic doctor. What to do if you have Problems For any increased pain, shortness of breath, bleeding, nausea or vomiting, chest pain, or any unexpected problems, contact your Primary Care Provider. Call [employer] [facility] ([phone]) or report to the closest Emergency Room. Call 911 if necessary. 04/12/18 600 <Electronically signed by Keven Blanco MD> Date Keven Blanco MD Cosigner Signature (If Indicated): Date CC: Juan Alfaro MD LOWER EXT/JT ONLY/W Observed: 04/10/2018 Status: F Source: [facility] CONTRAST 10:10 AM [facility] Imaging Services [address] [place] [address] Lower Ext/Jt Only/W Contrast MR#: [id number] Acct: [id number] Name: COLLIN APARICIO N Rep #: [id number] : 1990 F 27 From: Ovi Figueroa MD PCP: Juan Alfaro MD Status: REG CLI Study: Lower Ext/Jt Only/W Contrast Date of Exam: 04/10/18 Exam# [id number] Ordering Dr: Cris lOson DO STUDY: MR RIGHT HIP ARTHROGRAPHY REASON FOR EXAM: Right hip pain, instability, no specific injury. TECHNIQUE: Standardized fat and water weighted pulse sequences were obtained in all 3 orthogonal planes after intra-articular instillation of dilute Magnevist. COMPARISON: Radiographs 02/28/2018. FINDINGS: Normal hip joint without articular joint space narrowing. Normal acetabulum. There is a small tear at the base of the right superior labrum (T1 coronal images 11-13) and a tear of the right anterosuperior labrum (SAMANTHA image 11). Normal femoral head. Normal femoral neck and intratrochanteric region. Normal gluteus minimus, medius and iliopsoas tendons and distal insertions. There is no trochanteric, iliopsoas or iliopectineal bursitis. Normal superior and inferior pubic rami. Normal ischial tuberosity. Normal origin of the hamstring tendons. Normal visualized iliac wing, sacroiliac joint, and sacral ala. There is mild iatrogenic edema anterior to the right hip joint capsule. MRI/Lower Ext/Jt Only/W Contrast IMPRESSION: Right labral tear. Electronically Signed: Ovi Figueroa MD at 13:13 EST Tel , Service support , CC: Cris Olson DO; Juan Alfaro MD Risk Consultant: Signed ARTHROGRAM HIP W/ MRI Observed: 04/10/2018 Status: F Source: [facility] 10:06 AM [facility] REPOSITORY [facility] Imaging Services [address] [place] [address] Arthrogram Hip w/ MRI MR#: [id number] Acct: [id number] Name: COLLIN APARICIO Rep #: [id number] : 1990 F 27 From: Chuck Yi MD PCP: Juan Alfaro MD Status: REG CLI Study: Arthrogram Hip w/ MRI Date of Exam: 04/10/18 Exam# [id number] Ordering Dr: Cris Olson DO CLINICAL HISTORY: Female, 27 years old. Right hip pain. PROCEDURE: ARTHROGRAM - ] CONSENT: The procedure as well as the benefits and possible complications including bleeding and infection were expanded to the patient. Informed consent was obtained. FLUOROSCOPY TIME (if supplied): (0:48) minutes/seconds Injection Information: 10 cc of dilute Magnevist. Number of images obtained: 2 TECHNIQUE: (All elements of maximal sterile barrier technique followed, including US elements as applicable) The patient was in the supine position. The overlying skin was prepped and draped in usual sterile fashion. Following local anesthetic a location and under direct fluoroscopic guidance, a 22-gauge spinal needle was placed into the right hip joint. 2 cc of Isovue-300 was injected for confirmation. Following this, 10 cc of dilute Magnevist was injected. The patient tolerated the procedure well. RAD/Arthrogram Hip w/ MRI IMPRESSION: Successful right hip arthrogram for MRI imaging. The patient tolerated the procedure well. Electronically Signed: Chuck Yi MD at 12:39 EST Tel [phone], Service support , CC: Cris Olson DO; Juan Alfaro MD Risk Consultant: Signed INTERNAL MEDICINE Observed: 03/30/2018 Status: F Source: [facility] OFFICE VISIT 11:06 AM [facility] Internal Medicine [address] [place] [address] [place] [address] OFFICE VISIT Date of Service: 03/30/18 MR#: [id number] Acct: [id number] Name: COLLIN APARICIO Rep #: [id number] : 1990 Provider: Oskar Evans NP Age/Sex: 27/F [place] [facility] [place]: Signed Intake Vital Signs03/30/18 Height 5 ft 1 in Intake Visit Reasons: POSS BRONCHITIS Chief Complaint: cough Is patient in pain?: No Allergies naproxen Adverse Reaction (Verified 02/14/18 09:04) Other varenicline tartrate [From Chantix] Adverse Reaction (Verified 02/14/18 09:04) Other Medications ibuprofen 800 mg tablet 800 mg PO BID PRN #60 tab 09/27/17 [Rx Confirmed 02/28/18] ondansetron HCl 4 mg tablet 4 mg PO BID-TID PRN #20 tab 12/14/17 [Rx Confirmed 02/28/18] omeprazole 20 mg capsule,delayed release 20 mg PO QDAY #90 cap 02/14/18 [Rx Confirmed 02/28/18] venlafaxine ER 75 mg capsule,extended release 24 hr 37.5 mg PO QDAY cap 02/28/18 [History Confirmed 02/28/18] tramadol 50 mg tablet 50 mg PO Q12H PRN #14 tab 03/24/18 [Rx] albuterol sulfate 0.63 mg/3 mL solution for nebulization 0.63 mg INHALATION TID PRN #75 ml 03/30/18 [Rx Confirmed 03/30/18] albuterol sulfate HFA 90 mcg/actuation aerosol inhaler 1 puff INHALATION Q6H PRN #8 g 03/30/18 [Rx Confirmed 03/30/18] benzonatate 100 mg capsule 100 mg PO TID PRN #30 cap 03/30/18 [Rx Confirmed 03/30/18] wxequcpo-slhehclor-ftjcuikkr 3.5 mg-10,000 unit/mL-1 % ear drops,susp 4 drp OTIC TID 10 Days #10 ml 03/30/18 [Rx Confirmed 03/30/18] PFSH Medical History Scoliosis (Chronic) IBS (irritable bowel syndrome) (Chronic) Chronic back pain (Chronic) Asthma (Chronic) Depression (Chronic) Anxiety (Chronic) Preeclampsia (Acute) Surgical History H/O knee surgery (Acute) History of tonsillectomy (Acute) Hx of breast reduction, elective (Acute) S/P right knee arthroscopy (Acute) adnoids (Acute) c/s (Acute) Family History Mother Depression Aunt Breast cancer Grandmother Diabetes Uncle Hyperlipemia Menieres disease Depression Social History Smoking Status: Former smoker how long ago did patient quit smokin alcohol intake: never substance use type: does not use caffeine: No what type of physical activity do you participate in: weight training, walking, bicycling, none frequency: 5-6 times per week seatbelt use: always additional social history: cici Meeks ([employer]) Patient is unemployed HPI HPI Chief Complaint: cough Details: COLLIN APARICIO, is a 27 F who presents to the office today for acute onset productive cough for 4 days. Patient admits to a history of asthma and has flareups when she is ill or exercising. The patient states that she uses a rescue inhaler and nebulizer when she is ill, however her current scripts for these are outdated, she is taking Claritin- D and Robitussin zoqv-egi-eztzdpw for the past 4 days with mild symptom relief. She admits to expectorating a small amount of thick clear mucus. She also states that is worse at night. She also states her right ear has been bothering her for last 3 days. She states that her mother lives with her is also been ill recently and has had to be placed on antibiotics. The patient otherwise denies any fever, chills, nausea, vomiting, shortness of breath,wheezing, chest pain or pressure, palpitations, orthopnea, lower extremity edema, syncope or presyncopal episodes. ROS Const Constitutional: Positive for chills and headache(s); no weight change, body ache, fatigue, sleep problems, fever(s), change in appetite, snoring, weakness, frequent falls or excessive sweating Eyes Eyes: No change in vision, eye pain, light sensitivity or blurry vision ENT ENT: Positive for headache(s), ear pain (right), sinus pressure and nasal discharge; no abnormal hearing, tinnitus, nasal congestion, sore throat or neck pain Resp Respiratory: Positive for cough Cough: Yes productive; no snoring, shortness of breath or wheezing Cardio Cardiology: No excessive sweating, chest pain at rest, chest pain with exertion, shortness of breath, dyspnea on exertion, palpitations, orthopnea or lightheadedness Gastro GI: No abdominal pain, change in bowel habits, constipation, diarrhea, vomiting, nausea/dyspepsia or cramping Genitourinary-Female: No burning urination, painful urination, urinary incontinence, urinary frequency, abnormal vaginal bleeding, pelvic pain or other Musc Musculoskeletal: No neck pain, abnormal walking, joint pain, back pain, limited range of motion, numbness, tingling or muscle weakness Skin Skin: No redness, dry skin, itching, lesions, wounds or rash Neuro Neurology: Positive for headache(s); no weakness, frequent falls, abnormal hearing, abnormal walking, numbness, tingling, abnormal speech, dizziness or memory loss Psych Psychiatric: No change in appetite, No memory loss, No anxiety, No depression, No Thoughts of harming yourself/Others Endo Endocrine: No fatigue, excessive sweating, cold intolerance, increased thirst/drinking, heat intolerance, flushing or increased hunger Aller/Imm Allergy/Immunologic: No wheezing, itchy eyes, hives or seasonal allergy symptoms Dudley/Lymp Hematologic/Lymphatic: No easy bleeding, easy bruising or enlarged lymph nodes Exam Const General: cooperative, comfortable, no acute distress Nutritional Appearance: average body habitus, well nourished Orientation: alert, oriented x3 Limitations: mental status not altered [facility] Head: normal to inspection Ears: TM's normal bilaterally, EAC abnormal (Right) erythema, edema and other (right tragal tenderness on manipulation) Nose: external nose normal, nares normal, no nasal polyps, nasal mucous membranes and turbinates normal Face and sinus: sinuses nontender Mouth: oral mucosae normal, oropharynx normal, breath no malodorous Teeth and gingiva: dentition normal Throat: posterior oropharynx normal Eyes General: appearance normal, both eyes and all related structures Neck Neck: no lymphadenopathy Resp Effort AND Inspection: normal respiratory effort, able to speak in complete sentences, normal respiratory pattern, symmetric chest movement, no audible wheezes, no cough Auscultation: Bilateral: Clear to Auscultation Cardio Palpation: normal PMI Rate: regular rate Heart Sounds: S1 normal, S2 normal, normal S1 and S2, no click, no gallops, no murmurs, no rubs GI Inspection: normal to inspection Auscultation: normal bowel sounds, no hyperactive bowel sounds, no hypoactive bowel sounds Palpation: soft, no hepatosplenomegaly Musc Musculoskeletal: No joint tenderness, decreased ROM or muscle weakness Skin General: no rashes or lesions noted, elasticity normal, turgor normal Lesions: no lesions Rashes: no rashes Neuro General: alert, awake, oriented x3, CN's II-XI intact bilaterally Speech: speech normal Gait: normal gait Motor: muscle tone normal throughout Extrem General: normal to inspection, normal gait, no edema, no pedal edema Psych Appearance: grossly normal Mental Status: mental status grossly normal Affect: normal affect Attitude: cooperative Thought Process: normal Assessment AND Plan 1. URI (upper respiratory infection) J06.9 Plan Patient symptoms seem viral in nature. We will treat conservatively at this time. She may continue with her lzgc-hmd-ahnprlu antihistamine. Jenelle called in for cough. Given her history of asthma, refilled her albuterol rescue inhaler and nebulized albuterol. She denies any shortness of breath or wheezing at this time, she states that her asthma is very well controlled and she typically only uses the rescue inhaler when she is sick. Will hold off on systemic corticosteroids at this time. Instructed patient to call if she develops shortness of breath or wheezing. Hold off on antibiotic use at this time, if patient's symptoms progress or worsen, may consider an antibiotic. Instructed to call office in a couple of days with an update 2. Right otitis externa H60.91 Plan Patient does have symptoms consistent with right acute otitis externa. She has tragal tenderness on manipulation, her external ear canal is erythematous. Will treat with Cortisporin drops as her TM is intact. Discussed conservative measures to take as well and prevention. Patient verbalized understanding. Discussed red flag symptoms that require urgent medical attention. Patient to follow-up as previously scheduled or sooner if needed. Iliana disclaimer Plan Detail Other Medications New: albuterol sulfate HFA 90 mcg/actuation (Vento1 puff Inhalation Q6H PRN 8 grams 1RF shortn zeferino HFA) ess of breath or wheezing Coding Level of Care Code Off vis,est,level 3 Diagnoses URI (upper respiratory infection) J06.9 Right otitis externa H60.91 03/30/18 1106 <Electronically signed by Oskar BHAT> Date Oskar Evans [employer]OD[employer]IST [employer] Cosigner Signature: Date (if applicable) CC: PT D/C SUMMARY (1) Observed: 03/29/2018 Status: F Source: [place] 10:38 AM [facility] REPOSITORY [facility] Physical Therapy [facility] [address] [place] [address] Fax REHABILITATION SERVICES DISCHARGE SUMMARY MR#: [id number] Acct: [id number] Name: COLLIN APARICIO Rep #: [id number] : 1990 27 From: Kenny Pedraza DPT Referring Dr.: Cris Olson DO Status: REG RCR Insurance: [facility] *IN NETWORK SELF PAY INSURANCE HP - PT D/C Summary It has been my pleasure to treat COLLIN APARICIO under orders from Cris Olson DO, for the diagnosis of Right Hip Labral Tear for a total of 4 visit(s). Discharge Date: 03/20/18 Please see the following information for a summary of their discharge status. - Subjective Subjective: Pt. reports I am really not getting much better.' Pt. reports being HEP compliant. She reports increased pain with all activities. She did start a new job which requires her to be on her feet a lot. - Pain R Hip Pain Intensity (Out of 10): 4 - Overall Improvement % Improvement: 25 - Objective Objective/Function: Pt. continues have increased pain with most functional mobility. She has point tender at her R iliopsoas muscle, but has special testing consistent with labral pathology. Pt. is to continue with stretching as tolerated. - Goals Goal 1:: pt I with HEP Goal Progress: Goal Met Goal 2:: pt reports 0/10 pain with navigating stairs, sitting, and standing Goal Progress: Not Progressing Goal 3:: pt reports 0/10 with walking Goal Progress: Not Progressing Goal 4:: pt has full strength without pain in their right hip Goal Progress: Progressing Goal 5:: pt able to return to gym without pain Goal Progress: Not Progressing - Plan Plan: Pt. to be DC from PT and follow up with physician at this point in time to determine if alternate course of action is required. - D/C Information Discharge Comments: Pt. was treated for her R hip pathology with manual intervention, US and stretching. Pt. was making minimal changes with PT and desired to follow up with physician to determine if alternate intervention would be beneficial. If there are questions or concerns regarding this patient's physical therapy, please feel free to call me at [phone]. Thank you for the referral of this patient. Sincerely, Kenny Pedraza <Electronically signed by Kenny Pedraza DPT> 03/29/18 1038 CC: Cris Olson DO; Juan Alfaro MD CLS Signed ORTHOPEDIC VISIT Observed: 03/20/2018 Status: F Source: [facility] REPORT 12:06 PM [facility] REPOSITORY [facility] Orthopaedics AND Sports Medicine [address] [place] [id number] OFFICE VISIT Date of Service: 02/28/18 MR#: [id number] Acct: [id number] Name: COLLIN APARICIO Rep #: [id number] : 1990 Provider: Cris Olson DO Age/Sex: 27/F [place] [facility] [place] Signed Intake Intake Visit Reasons: RIGHT HIP Chief Complaint: Bad Heartburn since Sat Is patient in pain?: Yes Allergies naproxen Adverse Reaction (Verified 02/14/18 09:04) Other varenicline tartrate [From Chantix] Adverse Reaction (Verified 02/14/18 09:04) Other Medications ibuprofen 800 mg tablet 800 mg PO BID PRN #60 tab 09/27/17 [Rx Confirmed 02/28/18] ondansetron HCl 4 mg tablet 4 mg PO BID-TID PRN #20 tab 12/14/17 [Rx Confirmed 02/28/18] omeprazole 20 mg capsule,delayed release 20 mg PO QDAY #90 cap 02/14/18 [Rx Confirmed 02/28/18] venlafaxine ER 75 mg capsule,extended release 24 hr 37.5 mg PO QDAY cap 02/28/18 [History Confirmed 02/28/18] PFSH Medical History Scoliosis (Chronic) IBS (irritable bowel syndrome) (Chronic) Chronic back pain (Chronic) Asthma (Chronic) Depression (Chronic) Anxiety (Chronic) Preeclampsia (Acute) Surgical History H/O knee surgery (Acute) History of tonsillectomy (Acute) Hx of breast reduction, elective (Acute) S/P right knee arthroscopy (Acute) adnoids (Acute) c/s (Acute) Family History Mother Depression Aunt Breast cancer Grandmother Diabetes Uncle Hyperlipemia Menieres disease Depression Social History Smoking Status: Former smoker how long ago did patient quit smokin alcohol intake: never substance use type: does not use caffeine: No what type of physical activity do you participate in: weight training, walking, bicycling, none frequency: 5-6 times per week seatbelt use: always additional social history: cici Meeks ([employer]) Patient is unemployed HPI RIGHT HIP: Details: COLLIN APARICIO is a 27 year old F here today for right hip pain. Patient notes that she has a leg length discrepancy in her right leg by about 1/2 inch. Patient notes that she has a heel lift that she wears in her shoe when she is wearing shoes that she can wear it in. She has pain into her groin. Patient has had hip pain since she had her right knee scoped in April 2017. She has increased pain when she sits with her legs apart and ambulating stairs. She has a popping over her anterior hip. Patient has tried ibuprofen and ice which is not helpful. She tried a hip machine at the gym which was not helpful. Patient denies any recent xrays or MRI. ROS Const Reports system reviewed and no additional complaints, except as docu Eyes Reports system reviewed and no additional complaints, except as docu ENT Reports system reviewed and no additional complaints, except as docu Card Reports system reviewed and no additional complaints, except as docu Resp Reports system reviewed and no additional complaints, except as docu GI Reports system reviewed and no additional complaints, except as docu Reports system reviewed and no additional complaints, except as docu Musc Reports joint pain Skin/Breast Reports system reviewed and no additional complaints, except as docu Neuro Yes system reviewed and no additional complaints, except as docu Psych Reports system reviewed and no additional complaints, except as docu Endo Reports system reviewed and no additional complaints, except as docu Ortho Exam Right Hip Skin: Yes CDI Contralateral Normal: Yes Hip: absent TTP Greater Troch Impingement Test: 2 Labral Stress Test: 2 Assessment AND Plan 1. Tear of right acetabular labrum, initial encounter S73.191A Plan X-rays were reviewed. There is no obvious fracture, dislocation, or lucency noted. Educated on the anatomy of the hip and etiology of her pain, explained that she has pain with labral signs, instructed to try PT and if needed we can refer to Dr Boogie for IA injection. Continue to use nsaids prn. Explained that there can also be a ovary issue component to right hip pain but with her pain into her quad it is likely the joint and less the ovary. If all conservative treatment fails we can order an MRI Follow up or sooner if pain, swelling, numbness or associated symptoms, or concerns develop. All questions answered. Patient in agreement of plan. 2. Right hip pain M25.551 Orders Orders: Plan Detail Other Medications Changed: Coding Level of Care Code Off vis,est,level 4 Diagnoses Tear of right acetabular labrum, initial encounter S73.191A Encounter type: initial encounter Right hip pain M25.551 03/20/18 1206 <Electronically signed by Cris Olson DO> Date Cris Olson DO Cosigner Signature: Date (if applicable) CC: INITAL EVALUATION (1) Observed: 03/08/2018 Status: F Source: [facility] - PT 5:50 AM [facility] REPOSITORY [facility] Physical Therapy [address] [place] [address] Fax REHABILITATION SERVICES INITIAL EVALUATION MR#: [id number] Acct: [id number] Name: COLLIN APARICIO Rep #: [id number] : 1990 27 From: Kenny Pedraza DPT Referring Dr.: Cris Olson DO Status: REG RCR Insurance: [facility] *IN NETWORK SELF PAY INSURANCE Patient's Visit Information COLLIN APARICIO is a 27 year old F referred to Physical Therapy by Cris Olson DO with a diagnosis of Right Hip Labral Tear. Date of Evaluation: 03/06/18 Physical Therapist: Kenny Pedraza - Visit Plan Frequency: 2x /Week Duration: 4 Weeks Plan: Start with US to anterior hip, gentle exercises including glute strengthening (max/med), quad strengthening as tolerated, hip ER as tolerated. Avoid end ranges, no deep squating. Focus on pain control and progression of light exercises as tolerated. Progress HEP as able. - Subjective Subjective: Pt is here today for their initial evaluation for right hip labral tear. About one year go pt had surgery on their right knee. it was following this surgery that the patient first noticed right hip pain. pt put off treatment for their right hip due to a second surgery they recieved on their left knee. pt has recovered from both knee surgerys and is now seeking treatment for their right hip. pt reports a constant pain lvl around 6 or 7 out of 10 but can get as high as 9/10. pt reports greatest pain when navigating stairs, sitting or standing. pt recieves some relief when laying in supine or on left side. pt has a 6 year old daughter who says keeps her busy and forces her to remain active and work through the pain. pt hopes to be able to reduce pain and be able to participate in all activity with no pain. - Pain R Hip Pain Intensity (Out of 10): 7 Pain Intensity Range: 6, 9 - Objective POSTURE: forward head and rounded shoulders, normal iliac crest height, no increased wt. shift to either side. PALPATION : Pt. has increased tenderness at anterior hip including iliopsoas, rectus femoris. No other quad tenderness. NEURO: equal sensation bilat, Pt. is able to rise on heels and toes without issues. Pt. has 2+ bilateral achilles and patellar DTR. ROM: LE - WFL, except increased R hip pain with end range flexion, ext and IR. MMT: RLE - 5/5 throughout, except with hip flexion and external rotaiton (4/5) and pain with resistance. LLE- 5/5 throughout. Core strength- poor+. GAIT: mild antalgic gait, reports difficutly with stairs. Pt. has mild increase in symptoms during stance phase, slight lateral hip translation and slight decreased L step length. - Special Tests R Hip Scour: Positive R Hip SAMANTHA - Intraarticular Pathology: Positive R Hip FADDIR - Labrum: Positive - Goals Goal 1:: pt I with HEP Goal Time Frame: 2-4 Weeks Goal 2:: pt reports 0/10 pain with navigating stairs, sitting, and standing Goal Time Frame: 2-4 Weeks Goal 3:: pt reports 0/10 with walking Goal Time Frame: 2-4 Weeks Goal 4:: pt has full strength without pain in their right hip Goal Time Frame: 2-4 Weeks Goal 5:: pt able to return to gym without pain Goal Time Frame: 2-4 Weeks - Rehabilitation Potential Physical Therapy Diagnosis: pt presents with signs and symptsoms consistent with right hip labral tear. pt presents with an antalgic gait and pain with hip flexion with and without resistance. pt recorded positive resutls for scour and samantha tests. pt would benefit from PT in order to promote increased hip stability and reduced hip pain allowing for greater participation in daily activities Rehabilitation Potential: Good - Anticipated Interventions Patient/Client Instruction: Educate patient on: Condition, Plan of Care, Risk Factors, Benefits of Fitness Program For the Purpose of:: To decrease pain, To increase tolerance to activity/condition/position, To improve ability of physical actions for home/community/work/leisure Therapeutic Exercise to Include: Strength training For the Purpose of:: To decrease pain, To improve muscle performance and motor function, To increase tolerance to activity/condition/position, To improve ability of physical actions for home/community/work/leisure Manual Therapy Techniques to Include: Massage, Functional dry needling For the Purpose of:: To decrease pain, To decrease swelling/inflammation, To increase tolerance to activity/condition/position, To improve ability of physical actions for home/community/work/leisure TENS: Yes Cryotherapy (ice pack, ice massage): Yes Thermo therapy (hot pack): Yes Ultrasound (thermal/non thermal): Yes For the Purpose of:: To decrease pain, To increase tolerance to activity/condition/position, To improve ability of physical actions for home/community/work/leisure Thank you for the opportunity to evaluate your patient. For Medicare and Medicare HMO plans, please review the plan of care and approve it. It will need to be FAXED BACK to us at [phone] for Medicare purposes. Please let me know if there are questions or concerns regarding this plan of care. Physician Signature: Date: <Electronically signed by Kenny Pedraza DPT> 03/08/18 0550 CC: Cris Olson DO; Juan Alfaro MD CLS Signed For Medicare only, by signing this I certify the plan of care. Physicians Signature Date HIP, UNI W/ PELVIS Observed: 02/28/2018 Status: F Source: [facility] 2-3 VIEWS 9:56 AM [facility] REPOSITORY [facility] Imaging Services [address] [facility] [place] [address] HIP, UNI W/ Pelvis 2-3 Views MR#: [id number] Acct: [id number] Name: COLLIN APARICIO Rep #: [id number] : 1990 F 27 From: Ovi Figueroa MD PCP: Juan Alfaro MD Status: REG CLI Study: HIP, UNI W/ Pelvis 2-3 Views Date of Exam: 02/28/18 Exam# [id number] Ordering Dr: Cris Olson DO STUDY: X-RAY - PELVIS AND RIGHT HIP REASON FOR EXAM: Right hip pain since knee surgery last April. TECHNIQUE: Radiological exam, hip, unilateral, with pelvis when performed; 2 or 3 views. COMPARISON: None. FINDINGS: There are small pelvic phleboliths. Normal bilateral iliac wings, sacroiliac joints and visualized sacrum. Normal bilateral superior and inferior pubic rami. Normal pubic symphysis. Normal bilateral ischial tuberosities. Normal visualized femoral head. Normal acetabulum. Normal hip joint. RAD/HIP, UNI W/ Pelvis 2-3 Views IMPRESSION: Normal x-ray examination of the pelvis and right hip. Electronically Signed: Ovi Figueroa MD at 16:01 EDT Tel , Service support , CC: Cris Olson DO; Juan Alfaro MD Risk Consultant: Signed INTERNAL MEDICINE Observed: 02/14/2018 Status: F Source: [facility] OFFICE VISIT 1:38 PM [facility] Internal Medicine [address] [place] [address] [place] [address] OFFICE VISIT Date of Service: 02/14/18 MR#: [id number] Acct: [id number] Name: COLLIN APARICIO Rep #: [id number] : 1990 Provider: Oskar Evans NP Age/Sex: 27/F Location: [facility] Status: Signed Intake Vital Signs02/14/18 Height 5 ft 1 in 02/14/18 Weight: 194 lb 02/14/18 Body Mass Index (BMI) 36.6 02/14/18 Blood Pressure 117/76 Intake Visit Reasons: bad heart burn since Tuesday Chief Complaint: Bad Heartburn since Sat Is patient in pain?: Yes (Heartburn) Pain scale (1-10): 9 Allergies naproxen Adverse Reaction (Verified 02/14/18 09:04) Other varenicline tartrate [From Chantix] Adverse Reaction (Verified 02/14/18 09:04) Other Medications ibuprofen 800 mg tablet 800 mg PO BID PRN #60 tab 09/27/17 [Rx Confirmed 02/14/18] ondansetron HCl 4 mg tablet 4 mg PO BID-TID PRN #20 tab 12/14/17 [Rx Confirmed 02/14/18] venlafaxine ER 75 mg capsule,extended release 24 hr 75 mg PO QDAY #90 cap 01/10/18 [Rx Confirmed 02/14/18] omeprazole 20 mg capsule,delayed release 20 mg PO QDAY #90 cap 02/14/18 [Rx Confirmed 02/14/18] PFSH Medical History Scoliosis (Chronic) IBS (irritable bowel syndrome) (Chronic) Chronic back pain (Chronic) Asthma (Chronic) Depression (Chronic) Anxiety (Chronic) Preeclampsia (Acute) Surgical History H/O knee surgery (Acute) History of tonsillectomy (Acute) Hx of breast reduction, elective (Acute) S/P right knee arthroscopy (Acute) adnoids (Acute) c/s (Acute) Family History Mother Depression Aunt Breast cancer Grandmother Diabetes Uncle Hyperlipemia Menieres disease Depression Social History Smoking Status: Former smoker how long ago did patient quit smokin alcohol intake: never substance use type: does not use caffeine: No what type of physical activity do you participate in: weight training, walking, bicycling, none frequency: 5-6 times per week seatbelt use: always additional social history: cici Meeks ([employer]) Patient is unemployed HPI HPI Chief Complaint: Bad Heartburn since Sat Details: COLLIN APARICIO, is a 27 F who presents to the office today for complaints of heartburn. Patient has a past medical history as listed above. Patient states that for about 5 days she has had heartburn. She describes that burning in her chest and up her neck that is almost always constant but worse after eating any food or lying down. She has not tried any [id number]'s. She denies using omeprazole and states that she uses ibuprofen for pain relief about once a month. She states that the last time she had this feeling was about 6 years ago when she was , her last menstrual period was January 14. She denies any other aggravating or relieving factors. The patient otherwise denies any fever, chills, nausea, vomiting, shortness of breath, chest pain or pressure, palpitations, orthopnea, lower extremity edema, syncope or presyncopal episodes. ROS Const Constitutional: No chills, fatigue, fever(s), frequent falls, malaise, weakness, sleep problems or change in appetite Eyes Eyes: No blurry vision, change in vision, double vision, discharge or visual disturbances ENT ENT: No abnormal hearing, ear pain, ear pressure, tinnitus or dizziness/vertigo Resp Respiratory: No cough, shortness of breath or wheezing Cardio Cardiology: No chest pain with exertion, shortness of breath, dyspnea on exertion, generalized swelling, irregular heart rhythm, lightheadedness, orthopnea, fast heart rate or palpitations Gastro GI: Positive for heartburn, bloating, belching and pain with swallowing; no abdominal pain, change in bowel habits, constipation, diarrhea, nausea/dyspepsia or vomiting Genitourinary-Female: No difficulty urinating, burning urination, painful urination, urinary incontinence, urinary frequency, urinary urgency, urinary hesitancy, urinary retention, Frequent nighttime urination/ nocturia, sexual problems, genital lesions, abnormal vaginal bleeding, pelvic pain, vaginal dryness, vaginal odor or Vaginal Itching Musc Musculoskeletal: No joint pain, back pain, joint swelling, limited range of motion, muscle weakness, numbness or tingling Skin Skin: No change in skin color, itching, rash or wounds Breast Breast: No breast lump or breast pain Neuro Neurology: No frequent falls, weakness, abnormal hearing, numbness, tingling, unsteady gait/balance, dizziness, loss of vision, memory loss or visual disturbances Psych Psychiatric: No memory loss, No anxiety, No change in appetite, No depression, No Thoughts of harming yourself/Others Endo Endocrine: No fatigue, heat intolerance, increased thirst/drinking, increased hunger or increased urination Aller/Imm Allergy/Immunologic: No wheezing, itchy eyes or seasonal allergy symptoms Dudley/Lymp Hematologic/Lymphatic: No easy bleeding, easy bruising or enlarged lymph nodes Exam Const General: cooperative, comfortable, no acute distress Nutritional Appearance: well nourished, obese Orientation: alert, oriented x3 Limitations: mental status not altered HENMT Head: normal to inspection Ears: hearing grossly normal bilaterally Nose: external nose normal Mouth: oral mucosae normal Throat: posterior oropharynx normal Eyes General: appearance normal, both eyes and all related structures Resp Effort AND Inspection: normal respiratory effort, able to speak in complete sentences, normal respiratory pattern, symmetric chest movement, no audible wheezes, no cough Auscultation: Bilateral: Clear to Auscultation Cardio Palpation: normal PMI Rate: regular rate Heart Sounds: S1 normal, S2 normal, normal S1 and S2, no click, no gallops, no murmurs, no rubs GI Inspection: normal to inspection Auscultation: normal bowel sounds, no hyperactive bowel sounds, no hypoactive bowel sounds Palpation: soft, no hepatosplenomegaly, tender (Very mild with deep palpation) in the epigastrum Musc Musculoskeletal: No muscle weakness Skin General: no rashes or lesions noted, elasticity normal, turgor normal Lesions: no lesions Rashes: no rashes Neuro General: alert, awake, oriented x3, CN's II-XI intact bilaterally Speech: speech normal Gait: normal gait Motor: muscle tone normal throughout Extrem General: normal to inspection, normal gait, no edema, no pedal edema Psych Appearance: grossly normal Mental Status: mental status grossly normal Affect: normal affect Attitude: cooperative Thought Process: normal Assessment AND Plan Problems 1. Gastroesophageal reflux disease, esophagitis presence not specified K21.9 Plan The patient's symptoms are consistent that I have a GERD and she has been treated with a PPI in the past and has done well. Will start patient on omeprazole. Discussed medication side effects. test and office was negative. Educated patient on avoidance of large meals, food triggers, late meals and weight loss. Orders Orders: Medications Refilled: Plan Detail Follow Up As previously scheduled Coding Level of Care Code Off vis,est,level 3 Diagnoses Gastroesophageal reflux disease, esophagitis presence not specified K21.9 Esophagitis presence: esophagitis presence not specified 02/14/18 1338 <Electronically signed by Oskar BHAT> Date Oskar BHAT Cosigner Signature: Date (if applicable) CC: INTERNAL MEDICINE Observed: 01/10/2018 Status: F Source: [facility] OFFICE VISIT 4:33 PM [facility] Internal Medicine [address] [place] [address] OFFICE VISIT Date of Service: 01/10/18 MR#: [id number] Acct: [id number] Name: COLLIN APARICIO Rep #: [id number] : 1990 Provider: Juan Alfaro MD Age/Sex: 27/F [place] [facility] [place] Status: Signed Intake Vital Signs01/10/18 Height 5 ft 1 in 01/10/18 Weight: 192 lb 01/10/18 Body Mass Index (BMI) 36.2 01/10/18 Blood Pressure 104/72 Intake Visit Reasons: BLISTERS IN MOUTH Chief Complaint: Blister in mouth Is patient in pain?: Yes (Blisters in mouth) Pain scale (1- 10): 9 Allergies naproxen Adverse Reaction (Verified 01/10/18 10:06) Other varenicline tartrate [From Chantix] Adverse Reaction (Verified 01/10/18 10:06) Other Medications ibuprofen 800 mg tablet 800 mg PO BID PRN #60 tab 09/27/17 [Rx Confirmed 01/10/18] omeprazole 20 mg capsule,delayed release 20 mg PO QDAY #60 cap 09/27/17 [Rx Confirmed 01/10/18] ondansetron HCl 4 mg tablet 4 mg PO BID-TID PRN #20 tab 12/14/17 [Rx Confirmed 01/10/18] venlafaxine ER 75 mg capsule,extended release 24 hr 75 mg PO QDAY #90 cap 01/10/18 [Rx Confirmed 01/10/18] PFSH Medical History Scoliosis (Chronic) IBS (irritable bowel syndrome) (Chronic) Chronic back pain (Chronic) Asthma (Chronic) Depression (Chronic) Anxiety (Chronic) Preeclampsia (Acute) Surgical History H/O knee surgery (Acute) History of tonsillectomy (Acute) Hx of breast reduction, elective (Acute) S/P right knee arthroscopy (Acute) adnoids (Acute) c/s (Acute) Family History Mother Depression Aunt Breast cancer Grandmother Diabetes Uncle Hyperlipemia Menieres disease Depression Social History Smoking Status: Former smoker how long ago did patient quit smokin alcohol intake: never substance use type: does not use caffeine: No what type of physical activity do you participate in: weight training, walking, bicycling, none frequency: 5-6 times per week seatbelt use: always additional social history: cici Meeks ([employer]) Patient is unemployed HPI HPI Chief Complaint: Blister in mouth Details: COLLIN APARICIO, is a 27yo F who presents to the office today for mouth sores and feeling of unwell. Prior episode of nausea and vomiting which has now resolved. ROS Const Constitutional: No chills, fatigue, fever(s), frequent falls, malaise, weakness, sleep problems or change in appetite Eyes Eyes: No blurry vision, change in vision, double vision, discharge or visual disturbances ENT ENT: Positive for mouth lesions (x 2 days); no abnormal hearing, ear pain, ear pressure, tinnitus or dizziness/vertigo Resp Respiratory: No cough, shortness of breath or wheezing Cardio Cardiology: No chest pain at rest, chest pain with exertion, shortness of breath, dyspnea on exertion, generalized swelling, irregular heart rhythm, lightheadedness, orthopnea, fast heart rate or palpitations Gastro GI: Positive for diarrhea (Prior to sores in mouth) and vomiting (prior to sores in mouth); no abdominal pain, change in bowel habits, constipation or nausea/dyspepsia Genitourinary-Female: No difficulty urinating, burning urination, painful urination, urinary incontinence, urinary frequency, urinary urgency, urinary hesitancy, urinary retention, Frequent nighttime urination/ nocturia, sexual problems, genital lesions, abnormal vaginal bleeding, pelvic pain, vaginal dryness, vaginal odor or Vaginal Itching Musc Musculoskeletal: No joint pain, back pain, joint swelling, limited range of motion, numbness or tingling Skin Skin: No change in skin color, itching, rash or wounds Breast Breast: No breast lump or breast pain Neuro Neurology: No frequent falls, weakness, abnormal hearing, numbness, tingling, unsteady gait/balance, dizziness, loss of vision, memory loss or visual disturbances Psych Psychiatric: No memory loss, No anxiety, No change in appetite, No depression, No Thoughts of harming yourself/Others Endo Endocrine: No fatigue, heat intolerance, increased thirst/drinking, increased hunger or increased urination Aller/Imm Allergy/Immunologic: No wheezing, itchy eyes or seasonal allergy symptoms Dudley/Lymp Hematologic/Lymphatic: No easy bleeding, easy bruising or enlarged lymph nodes Exam Const General: cooperative, no acute distress Nutritional Appearance: obese Orientation: alert, awake, oriented x3 HENMT Head: atraumatic, normocephalic Ears: hearing grossly normal bilaterally Resp Effort AND Inspection: normal respiratory effort, able to speak in complete sentences Auscultation: Bilateral: Clear to Auscultation Cardio Rate: regular rate Rhythm: regular rhythm Heart Sounds: S1 normal, S2 normal GI Palpation: soft, no hepatosplenomegaly Neuro General: alert, awake, oriented x3, moves all extremities, CN's II-XI intact bilaterally Extrem General: no clubbing, cyanosis or edema Psych Appearance: grossly normal Mental Status: mental status grossly normal Mood: anxious mood Affect: tearful Assessment AND Plan 1. Viral syndrome B34.9 Plan Symptoms of diarrhea, vomiting, nausea and now apthous ulcers suggestive of possible viral syndrome. Symptoms however are said to be improving. Oral rinse discussed. Increase fluid intake, rest and airborne immune supplements. Advised to call with any worsening symptoms. 2. Depression with anxiety F41.8 Plan Stable. Continue current medications. This note was generated with [employer] dictation software. It may contain incorrect words, spelling, and punctuation that were not noted in checking the note before signing. Plan Detail Other Medications Refilled: Coding Level of Care Code Off vis,est,level 3 Diagnoses Viral syndrome B34.9 Depression with anxiety F41.8 01/10/18 1633 <Electronically signed by Juan Alfaro MD> Date Juan Alfaro MD Cosigner Signature: Date (if applicable) CC: INTERNAL MEDICINE Observed: 12/09/2017 Status: F Source: [facility] OFFICE VISIT 9:10 AM [facility] [address] [place] [address] [place] [address] OFFICE VISIT Date of Service: 12/06/17 MR#: [id number] Acct: [id number] Name: COLLIN APARICIO Rep #: [id number] : 1990 Provider: Juan Alfaro MD Age/Sex: 27/F Location[place] [facility] [place] Status: Signed Intake Vital Signs12/06/17 Height 5 ft 1 in 12/06/17 Weight: 190 lb 12/06/17 Body Mass Index (BMI) 35.9 12/06/17 Blood Pressure 106/74 Intake Visit Reasons: 3 M FU Chief Complaint: 3 Mo F/U anxiety Is patient in pain?: No Allergies naproxen Adverse Reaction (Verified 12/06/17 08:07) Other varenicline tartrate [From Chantix] Adverse Reaction (Verified 12/06/17 08:07) Other Medications ibuprofen 800 mg tablet 800 mg PO BID PRN #60 tab 09/27/17 [Rx Confirmed 12/06/17] omeprazole 20 mg capsule,delayed release 20 mg PO QDAY #60 cap 09/27/17 [Rx Confirmed 12/06/17] venlafaxine ER 75 mg capsule,extended release 24 hr 75 mg PO QDAY #60 cap 10/19/17 [Rx Confirmed 12/06/17] PFS Medical History Scoliosis (Chronic) IBS (irritable bowel syndrome) (Chronic) Chronic back pain (Chronic) Asthma (Chronic) Depression (Chronic) Anxiety (Chronic) Preeclampsia (Acute) Surgical History H/O knee surgery (Acute) History of tonsillectomy (Acute) Hx of breast reduction, elective (Acute) S/P right knee arthroscopy (Acute) adnoids (Acute) c/s (Acute) Family History Mother Depression Aunt Breast cancer Grandmother Diabetes Uncle Hyperlipemia Menieres disease Depression Social History Smoking Status: Former smoker how long ago did patient quit smokin alcohol intake: never substance use type: does not use caffeine: No what type of physical activity do you participate in: weight training, walking, bicycling, none frequency: 5-6 times per week seatbelt use: always additional social history: cici Meeks ([employer]) Patient is unemployed HPI HPI Chief Complaint: 3 Mo F/U anxiety Details: COLLIN APARICIO, is a 27yo F who presents to the office today for follow-up. She has no acute complaints at this time. Depression and anxiety said to have improved on Effexor. She also still follows up with counseling. She however would like her medications adjusted. ROS Const Constitutional: No chills, fatigue, fever(s), frequent falls, malaise, weakness, sleep problems or change in appetite Eyes Eyes: No blurry vision, change in vision, double vision, discharge or visual disturbances ENT ENT: No abnormal hearing, ear pain, ear pressure, tinnitus or dizziness/vertigo Resp Respiratory: No cough, shortness of breath or wheezing Cardio Cardiology: No chest pain at rest, chest pain with exertion, shortness of breath, dyspnea on exertion, generalized swelling, irregular heart rhythm, lightheadedness, orthopnea, fast heart rate or palpitations Gastro GI: No abdominal pain, change in bowel habits, constipation, diarrhea, nausea/dyspepsia or vomiting Genitourinary-Female: No difficulty urinating, burning urination, painful urination, urinary incontinence, urinary frequency, urinary urgency, urinary hesitancy, urinary retention, Frequent nighttime urination/ nocturia, sexual problems, genital lesions, abnormal vaginal bleeding, pelvic pain, vaginal dryness, vaginal odor or Vaginal Itching Musc Musculoskeletal: No joint pain, back pain, joint swelling, limited range of motion, numbness or tingling Skin Skin: No change in skin color, itching, rash or wounds Breast Breast: No breast lump or breast pain Neuro Neurology: No frequent falls, weakness, abnormal hearing, numbness, tingling, unsteady gait/balance, dizziness, loss of vision, memory loss or visual disturbances Psych Psychiatric: No memory loss, No anxiety, No change in appetite, No depression, No Thoughts of harming yourself/Others Endo Endocrine: No fatigue, heat intolerance, increased thirst/drinking, increased hunger or increased urination Aller/Imm Allergy/Immunologic: No wheezing, itchy eyes or seasonal allergy symptoms Dudley/Lymp Hematologic/Lymphatic: No easy bleeding, easy bruising or enlarged lymph nodes Exam Const General: cooperative, no acute distress Nutritional Appearance: obese Orientation: alert, awake, oriented x3 HENMT Head: atraumatic, normocephalic Ears: hearing grossly normal bilaterally Resp Effort AND Inspection: normal respiratory effort, able to speak in complete sentences Auscultation: Bilateral: Clear to Auscultation Cardio Rate: regular rate Rhythm: regular rhythm Heart Sounds: S1 normal, S2 normal GI Palpation: soft, no hepatosplenomegaly Neuro General: alert, awake, oriented x3, moves all extremities, CN's II-XI intact bilaterally Extrem General: no clubbing, cyanosis or edema Psych Appearance: grossly normal Mental Status: mental status grossly normal Mood: anxious mood Affect: tearful Assessment AND Plan 1. Depression with anxiety F41.8 Plan Improving. However still not back to her baseline. Increase Effexor to 150 mg Tanvir. Continue follow-up with counseling. Follow-up here in 3 months. 2. Chronic back pain M54.9; G89.29 Plan Stable. No worsening at this time. Continue current management. This note was generated with [employer] dictation software. It may contain incorrect words, spelling, and punctuation that were not noted in checking the note before signing. Plan Detail Follow Up 3 Months Coding Level of Care Code Off vis,est,level 3 Diagnoses Depression with anxiety F41.8 Chronic back pain M54.9; G89.29 12/09/17 0910 <Electronically signed by Juan Alfaro MD> Date Juan Alfaro MD Cosigner Signature: Date (if applicable) CC: INTERNAL MEDICINE Observed: 11/01/2017 Status: F Source: [facility] OFFICE VISIT 1:49 PM [facility] REPOSITORY [facility] [address] [place] [address] OFFICE VISIT Date of Service: 10/19/17 MR#: [id number] Acct: [id number] Name: COLLIN APARICIO Rep #: [id number] : 1990 Provider: Juan Alfaro MD Age/Sex: 27/F Location[place] [facility] [place] Status: Signed Intake Vital Signs10/19/17 Height 5 ft 1 in Intake Visit Reasons: discuss anxiety medication Chief Complaint: anxiety Allergies naproxen Adverse Reaction (Verified 08/02/17 09:49) Other varenicline tartrate [From Chantix] Adverse Reaction (Verified 08/02/17 09:49) Other Medications multivitamin capsule 1 cap PO QAM 09/05/17 [History Confirmed 09/05/17] ibuprofen 800 mg tablet 800 mg PO BID PRN #60 tab 09/27/17 [Rx] omeprazole 20 mg capsule,delayed release 20 mg PO QDAY #60 cap 09/27/17 [Rx] venlafaxine ER 75 mg capsule,extended release 24 hr 75 mg PO QDAY #60 cap 10/19/17 [Rx Confirmed 10/19/17] PFSH Medical History Scoliosis (Chronic) IBS (irritable bowel syndrome) (Chronic) Chronic back pain (Chronic) Asthma (Chronic) Depression (Acute) Anxiety (Acute) Preeclampsia (Acute) Surgical History H/O knee surgery (Acute) History of tonsillectomy (Acute) Hx of breast reduction, elective (Acute) S/P right knee arthroscopy (Acute) adnoids (Acute) c/s (Acute) Family History Mother Depression Aunt Breast cancer Grandmother Diabetes Uncle Hyperlipemia Menieres disease Depression Social History Smoking Status: Former smoker how long ago did patient quit smokin alcohol intake: never substance use type: does not use caffeine: No what type of physical activity do you participate in: weight training, walking, bicycling, none frequency: 5-6 times per week seatbelt use: always additional social history: cici Meeks ([employer]) Patient is unemployed Questionnaire Depression Screen PHQ-2/9 PHQ-2 Over the last 2 weeks, how often have you been bothered by any of the following problems? 1. Little interest or pleasure in doing things: nearly every day 2. Feeling down, depressed, or hopeless: several days Total score: 4 If score is 2 or greater, continue 3. Trouble falling or staying asleep, or sleeping too much: nearly every day 4. Feeling tired or having little energy: nearly every day 5. Poor appetite or overeating: nearly every day 6. Feeling bad about yourself - or that you are a failure or have let yourself and your family down: not at all 7. Trouble concentrating on things, such as reading the newspaper or watching television: not at all 8. Moving or speaking so slowly that other people could have noticed? - Or the opposite - being so fidgety or restless that you have been moving around a lot more than usual: nearly every day 9. Thoughts that you would be better off or of hurting yourself in some way: not at all Total score: 16 If you checked off any problems, how difficult have these problems made it for you to do your work, take care of things at home, or get along with other people?: very difficult Source: Developed by Drs. James Carlisle, Catrachita Koo, Dakota Barfield and colleagues, with an educational teri from [employer]. Scoring: Total Score Depression Severity Action 1-4 Minimal depression No action needed 5-9 Mild depression Repeat PHQ-9 at follow up 10-14 Moderate depression Make tx plan,consider counseling, fup, prescription HPI HPI Chief Complaint: anxiety Details: COLLIN APARICIO, is a 27yo presents with worsening anxiety and depression. She has a very long history of anxiety and depression and has been seen by psychiatric in the past. Most recently she has been encouraged to resume antidepressants however the patient declined she is here and now open to start this today. She also reports irregular menstrual bleed which was noted recently. Patient states that she typically has very heavy. Spot her last. Only lasted for 2 days and was very light. He is sexually active with her and does not have any form of contraception. ROS Const Constitutional: No weight change, body ache, chills, fatigue, sleep problems, fever(s), change in appetite, snoring, weakness, frequent falls, headache(s) or excessive sweating Eyes Eyes: No change in vision, eye pain, light sensitivity or blurry vision ENT ENT: No headache(s), abnormal hearing, ear pain, tinnitus, nasal congestion, sore throat or neck pain Resp Respiratory: No snoring, cough or wheezing Cardio Cardiology: No excessive sweating, chest pain at rest, chest pain with exertion, shortness of breath, dyspnea on exertion, palpitations, orthopnea or lightheadedness Gastro GI: No abdominal pain, change in bowel habits, constipation, diarrhea, vomiting, nausea/dyspepsia or cramping Genitourinary-Female: No burning urination, painful urination, urinary incontinence, urinary frequency, abnormal vaginal bleeding, pelvic pain or other Musc Musculoskeletal: No neck pain, abnormal walking, joint pain, back pain, limited range of motion, numbness or tingling Skin Skin: No redness, dry skin, itching, lesions, wounds or rash Neuro Neurology: No weakness, frequent falls, headache(s), abnormal hearing, abnormal walking, numbness, tingling, abnormal speech, dizziness or memory loss Psych Psychiatric: No change in appetite, No memory loss, Positive for anxiety, No depression, No Thoughts of harming yourself/Others, Positive for irritability, Positive for mood swings (crying easily) Endo Endocrine: No fatigue, excessive sweating, cold intolerance, increased thirst/drinking, heat intolerance, flushing or increased hunger Aller/Imm Allergy/Immunologic: No wheezing, itchy eyes, hives or seasonal allergy symptoms Dudley/Lymp Hematologic/Lymphatic: No easy bleeding, easy bruising or enlarged lymph nodes Exam Const General: cooperative, no acute distress Nutritional Appearance: obese Orientation: alert, awake, oriented x3 HENMT Head: atraumatic, normocephalic Ears: hearing grossly normal bilaterally Resp Effort AND Inspection: normal respiratory effort, able to speak in complete sentences Auscultation: Bilateral: Clear to Auscultation Cardio Rate: regular rate Rhythm: regular rhythm Heart Sounds: S1 normal, S2 normal GI Palpation: soft, no hepatosplenomegaly Neuro General: alert, awake, oriented x3, moves all extremities, CN's II-XI intact bilaterally Extrem General: no clubbing, cyanosis or edema Psych Appearance: grossly normal Mental Status: mental status grossly normal Mood: anxious mood Affect: tearful Assessment AND Plan 1. Depression with anxiety F41.8 Plan Had recent worsening and patient is now open to medication. However due to concerns of , will have her get a test first. Choice of antidepressant will be dependent on that. Follow-up with results. Continue therapy. Follow-up in 6 weeks. 2. Irregular periods N92.6 Plan One episode of very light menstrual bleed. Patient typically has heavy bleeds last couple of days. Serum beta hCG ordered. Follow-up with results. This note was generated with [employer] software. It may contain incorrect words, spelling, and punctuation that were not noted in checking the note before signing. Orders Orders: Plan Detail Other Medications New: Coding Level of Care Code Off vis,est,level 3 Diagnoses Depression with anxiety F41.8 Irregular periods N92.6 11/01/17 1349 <Electronically signed by Juan Alfaro MD> Date Juan Alfaro MD Cosigner Signature: Date (if applicable) CC: ,SERUM,HCG QUALI. Collected: Status: F Source: [facility] 10/19/2017 4:53 PM [facility] REPOSITORY TYPE CODE TESTS RESULT OUT OF REFERENCE UNITS RANGE LAB L700.7000 0-9 Nonpreg Negative Normal HCGSQUAL NEGATIVE LAB L700.6700 =>Qualitative mIU/mL Normal HCG Qual < 1 triggr Performed By: #### L700.6800 #### [facility] [address] [place], [address] INTERNAL MEDICINE Observed: 09/09/2017 Status: F Source: [facility] OFFICE VISIT 8:28 AM [facility] REPOSITORY [facility] [address] [place] [address] [place] [address] OFFICE VISIT Date of Service: 09/05/17 MR#: [id number] Acct: [id number] Name: COLLIN APARICIO Rep #: [id number] : 1990 Provider: Juan Alfaro MD Age/Sex: 27/F Location[place] [facility] [place] Status: Signed Intake Vital Signs09/05/17 Height 5 ft 1 in Intake Visit Reasons: 1 MO F/U Chief Complaint: follow-up visit Is patient in pain?: Yes (bottom of feet) Pain scale (1-10): 8 Allergies naproxen Adverse Reaction (Verified 08/02/17 09:49) Other varenicline tartrate [From Chantix] Adverse Reaction (Verified 08/02/17 09:49) Other Medications multivitamin capsule 1 cap PO QAM 09/05/17 [History Confirmed 09/05/17] PFSH Medical History Scoliosis (Chronic) IBS (irritable bowel syndrome) (Chronic) Chronic back pain (Chronic) Asthma (Chronic) Depression (Acute) Anxiety (Acute) Preeclampsia (Acute) Surgical History H/O knee surgery (Acute) History of tonsillectomy (Acute) Hx of breast reduction, elective (Acute) S/P right knee arthroscopy (Acute) adnoids (Acute) c/s (Acute) Family History Mother Depression Aunt Breast cancer Grandmother Diabetes Uncle Hyperlipemia Menieres disease Depression Social History Smoking Status: Former smoker how long ago did patient quit smokin alcohol intake: never substance use type: does not use caffeine: No what type of physical activity do you participate in: weight training, walking, bicycling, none frequency: 5-6 times per week seatbelt use: always additional social history: cici Meeks ([employer]) Patient is unemployed HPI HPI Chief Complaint: follow-up visit Details: COLLIN APARICIO, is a 27yo F who presents to the office today for follow-up. She has no acute complaints at this time. She has recently started seeing a psychologist for anxiety. She has had one session so far. She also reports bilateral foot pain which is said to occur when she walks for a long time. She denies any prior history of similar symptoms. ROS Const Constitutional: No weight change, body ache, chills, fatigue, sleep problems, fever(s), change in appetite, snoring, weakness, frequent falls or excessive sweating Eyes Eyes: No change in vision, eye pain, light sensitivity or blurry vision ENT ENT: No abnormal hearing, ear pain, tinnitus, nasal congestion, sore throat or neck pain Resp Respiratory: No snoring, cough, shortness of breath or wheezing Cardio Cardiology: No excessive sweating, chest pain at rest, chest pain with exertion, shortness of breath, dyspnea on exertion, palpitations, orthopnea or lightheadedness Gastro GI: No abdominal pain, change in bowel habits, constipation, diarrhea, vomiting, nausea/dyspepsia or cramping Musc Musculoskeletal: Positive for other (burning sensation on her arch of feet.); no neck pain, abnormal walking, joint pain, back pain, limited range of motion, numbness or tingling Skin Skin: No redness, dry skin, itching, lesions, wounds or rash Neuro Neurology: No weakness, frequent falls, abnormal hearing, abnormal walking, numbness, tingling, abnormal speech, dizziness or memory loss Psych Psychiatric: No change in appetite, No memory loss, No anxiety, No depression, No Thoughts of harming yourself/Others Endo Endocrine: No fatigue, excessive sweating, cold intolerance, increased thirst/drinking, heat intolerance, flushing or increased hunger Aller/Imm Allergy/Immunologic: No wheezing, itchy eyes, hives or seasonal allergy symptoms Dudley/Lymp Hematologic/Lymphatic: No easy bleeding, easy bruising or enlarged lymph nodes Exam Const General: cooperative, no acute distress Nutritional Appearance: obese Orientation: alert, awake, oriented x3 HENMT Head: atraumatic, normocephalic Ears: hearing grossly normal bilaterally Resp Effort AND Inspection: normal respiratory effort, able to speak in complete sentences Auscultation: Bilateral: Clear to Auscultation Cardio Rate: regular rate Rhythm: regular rhythm Heart Sounds: S1 normal, S2 normal GI Palpation: soft, no hepatosplenomegaly Neuro General: alert, awake, oriented x3, moves all extremities, CN's II-XI intact bilaterally Extrem General: no clubbing, cyanosis or edema Psych Appearance: grossly normal Mental Status: mental status grossly normal Affect: normal affect Assessment AND Plan 1. Depression with anxiety F41.8 Plan Stable. Patient not open to any medications at this time. Recently started sessions with a psychologist. Follow-up in 3 months. 2. Foot pain, bilateral M79.671; M79.672 Plan Said to occur when walking. No prior history. She states that she wears appropriate shoes/foot wear. Advised to wear tennis shoes all the time. Symptoms may possibly be due to plantar fasciitis/tendinitis. Advil as needed for pain. If symptoms persist will refer to podiatry. This note was generated with [employer] software. It may contain incorrect words, spelling, and punctuation that were not noted in checking the note before signing. Plan Detail Follow Up 3 Months Coding Level of Care Code Off vis,est,level 3 Diagnoses Depression with anxiety F41.8 Foot pain, bilateral M79.671; M79.672 09/09/17 0828 <Electronically signed by Juan Alfaro MD> Date Juan Alfaro MD Cosigner Signature: Date (if applicable) CC: CAITLINOV Observed: 09/02/2017 Status: COMPLETED Source: [facility] 1:45 PM [facility] REPOSITORY Office Visit (DERMST) COLLIN APARICIO ([id number]) 1990 F Date Time Provider Department 09/02/17 1:45 PM ENEIDA ALLISON) DERM During your visit today, we recorded the following information about you: Eneida Allison PA-C, CAROLYN 09/05/2017 9:16 AM Signed SKIN EXAM FOLLOWUP CC: This patient is a 27 year old female. Patient presents with: Acne: not improved hyperhidrosis: medication dried out her skin but didn't help the problem LESION, SKIN: left upper arm tender to touch HPI: -Patient presents for follow up for acne -She has been using the benzoyl peroxide wash, states this has not been working well as it has been drying out her face too much -She reports having ANDquot;very oily skinANDquot; but the OTC differin, benzoyl peroxide and Rx benzoyl peroxide is too drying for her face -She is still trying to get and she does not want to try any other medication at this time that could be contraindicated in -Patient has been taking Robinul for hyperhidrosis, reports this did not help, and she developed ANDquot;really badANDquot; headaches as well -She reports her hyperhidrosis is worst in her underarms and her groin. She is not interested in any other medications for her hyperhidrosis as she is concerned with potential side effects of medications. -She is also concerned with a lesion on her left lateral arm which is firm and brown. She states that it has been present for almost 2 years. It is tender to touch. 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 Drug use: No Sexual activity: Yes Partners with: Male control/protection: Condom MEDS: Current outpatient prescriptions: Current Outpatient Prescriptions on File Prior to Visit: Adapalene 0.3 % gel Apply a pea size amount to affected area every other night for 2 weeks then increase to daily as tolerated ibuprofen (MOTRIN) 800 mg tablet Take 1 tablet by mouth every 8 hours as needed. albuterol HFA (PROVENTIL HFA, VENTOLIN HFA) 90 mcg/actuation inhaler Inhale 2 Puffs as instructed every 6 hours as needed for Wheezing/Shortness of Breath. glycopyrrolate (ROBINUL) 1 mg tablet Take 1 tablet by mouth three times daily. Benzoyl Peroxide 5 % external wash Wash face and chest once daily as tolerated. Can bleach towels vilazodone (VIIBRYD) 20 mg Take 1 tablet by mouth daily with breakfast. As directed (Patient not taking: Reported on 06/02/2017 ) No current facility-administered medications on file prior to visit. ALLERGY: ALLERGIES Allergen Reactions - Chantix [Vareniclin* Other: See Comments Vomiting, diarrhea, bad dreams, restlessness, insomnia - Naproxen Other: See Comments Broke out in sweats, nightmares and all did was sleep REVIEW OF SYSTEMS: Patient feels well and denies any recent fevers, chills, or nightsweats. Skin: acne to face, lesion on arm PHYSICAL EXAM: The patient is a pleasant female in no distress. Patient appears healthy, well developed, well nourished and in otherwise good health. Alert and oriented x 3. A skin exam was done of the scalp, face including eyelids and lips, ears, neck, and left arm Andrade Skin Type: II IMPRESSION: Multiple cysts and acneiform papules throughout face Hyperpigmented dome-shaped papule to the left lateral arm A/P: 1) Acne Vulgaris, Acne Scar- reassured and discussed. Will defer treatment with aldactone and/or doxycycline as she is still trying to become . Ok to continue topical medications for now- BPO wash and adapalene. Advised pt to stop if she is . She has a consult with the fertility specialist this week. 2) Hyperhidrosis- discussed treatment options. She states Robinul and Drysol did not help. Patient deferred all medications for the treatment of her hyperhidrosis. Discussed alternative treatment options as well, consider Miradry. 3) Dermatofibroma reassured and educated, Sunscreen / sunblock protection reviewed. Follow up in 3 months and PRN Karol Marti APRN.EDEN- training Eneida Allison PA-C Attending: Dr. Hughes The intake documentation for this note was completed by Milan Oocnnor LPN acting as scribe for Eneida Allison PA-C, PA. September 02, 2017 1:38 PM. I agree with the Chief Complaint, ROS, and Past Histories independently gathered by the clinical system support specialist and the remaining scribed note accurately describes my personal service to the patient. Karol Marti APRN.CNP 09/02/2017 2:09 PM Signed Miradry Referring Provider: ENEIDA ALLISON (CODIE) [[id number]] Allergies As of Date: 09/02/2017 Noted Allergy Reaction CHANTIX (VARENICLINE) 12/08/2009 14 - Other: See Comments Comments: Vomiting, diarrhea, bad dreams, restlessness, insomnia NAPROXEN 08/21/2010 14 - Other: See Comments Comments: Broke out in sweats, nightmares and all did was sleep Date Reviewed: 09/02/2017 Reviewed by: Milan Oconnor LPN - Fully Assessed Reason for Visit: Acne [922] Cmt: not improved hyperhidrosis [Other] Cmt: medication dried out her skin but didn't help the problem LESION, SKIN [936] Cmt: left upper arm tender to touch Primary Visit Diagnosis:Hyperhidrosis [L74.519] Other Visit Diagnoses:Acne vulgaris [L70.0] Cystic acne [L70.0] Dermatofibroma of left upper arm [D23.62] Acne scar [L73.0] Order(s):Kroblgzaijasx-Mo-Xtrd-Minerals (MULTIPLE VITAMIN, WOMENS) tabTake 1 tablet by mouth once daily.Disp: Rfl: Prescriptions as of 09/02/2017 Sig: NTFLXOYTZZKZ-UB-EBFZ-MINERALS* Take 1 tablet by mouth once d* ADAPALENE 0.3 % TOPICAL GEL Apply a pea size amount to af* IBUPROFEN 800 MG TABLET Take 1 tablet by mouth every * ALBUTEROL SULFATE HFA 90 MCG/* Inhale 2 Puffs as instructed * GLYCOPYRROLATE 1 MG TABLET Take 1 tablet by mouth three * BENZOYL PEROXIDE 5 % TOPICAL * Wash face and chest once terrance* VILAZODONE 20 MG TABLET Take 1 tablet by mouth daily * Patient not taking: Reported on 06/02/2017 Medication notes this encounter GLYCOPYRROLATE 1 MG TABLET >> Milan Oconnor LPN 09/02/2017 1:36 PM >> MILAN OCONNOR LPN TueSep 02, 2017 1:36 PM D/c didn't help BENZOYL PEROXIDE 5 % TOPICAL CLEANSER >> Milan Oconnor LPN 09/02/2017 1:36 PM >> MILAN OCONNOR LPN TueSep 02, 2017 1:36 PM D/c side effects Problem List As Of Date 09/02/2017 Noted Resolved Hypertrophy of breast [N62] INVALID FOR*04/27/2011 Abdominal pain, epigastric [R10.13] INVALID FOR*03/03/2010 Abdominal pain, generalized [R10.84] INVALID FOR*03/03/2010 EXERCISE INDUCED BRONCHOSPASM [J45.990] INVALID FOR* Backache, unspecified [M54.9] INVALID FOR*09/17/2011 More... Tobacco use disorder [F17.200] INVALID FOR*03/03/2010 Tonsillitis [J03.90] INVALID FOR*04/27/2011 More... ADHD (Attention Deficit Hyperactivity Disorder)*INVALID FOR* Personal history of tobacco use [Z87.891] INVALID FOR*09/17/2011 More... Strain of lumbar region [S39.012A] INVALID FOR*12/18/2010 More... Anxiety [F41.9] Supervision of normal first [Z34.00] INVALID FOR*03/07/2013 More... Tobacco use complicating [O99.330] INVALID FOR*12/18/2016 More... Depression [F32.9] INVALID FOR* More... Back pain complicating [O26.899, M54.*INVALID FOR*03/07/2013 Anemia complicating [O99.019] INVALID FOR*03/07/2013 BMI 35.0-35.9,adult [Z68.35] INVALID FOR* Asthma with exacerbation [J45.901] INVALID FOR* Abdominal pain [R10.9] INVALID FOR*01/07/2016 Irritable bowel syndrome without diarrhea [K58.*INVALID FOR*01/07/2016 Other instructions from your clinician: Ruthy Prescriptions ordered this encounter Disp Refills Start End ZBWYVSUSDKNB-KS-WVPU-MINERALS TABLET 09/02/2017 Class: OTC Route: ORAL Sig: Take 1 tablet by mouth once daily. Cosign accepted by ENEIDA ALLISON PA-C[[id number]] on 09/02/2017 4:04 PM Disposition: Return in about 3 months (around 12/02/2017) for acne. Follow-up and Disposition History Recorded Encounter Status:Closed by ENEIDA ALLISON PA-C on 09/05/17 PROGRESS Observed: 09/02/2017 Status: COMPLETED Source: [place] 1:38 PM [facility] [place] REPOSITORY O ID: [id number] Author: Eneida Pitts (Codie) CAROLYN Allison Service: (none) Author Type: Physician Sound Engineer Audio Control Type: Progress Notes Filed: 09/05/2017 9:16 AM Note Text: SKIN EXAM FOLLOWUP CC: This patient is a 27 year old female. Patient presents with: Acne: not improved hyperhidrosis: medication dried out her skin but didn't help the problem LESION, SKIN: left upper arm tender to touch HPI: -Patient presents for follow up for acne -She has been using the benzoyl peroxide wash, states this has not been working well as it has been drying out her face too much -She reports having very oily skin but the OTC differin, benzoyl peroxide and Rx benzoyl peroxide is too drying for her face -She is still trying to get and she does not want to try any other medication at this time that could be contraindicated in -Patient has been taking Robinul for hyperhidrosis, reports this did not help, and she developed really bad headaches as well -She reports her hyperhidrosis is worst in her underarms and her groin. She is not interested in any other medications for her hyperhidrosis as she is concerned with potential side effects of medications. -She is also concerned with a lesion on her left lateral arm which is firm and brown. She states that it has been present for almost 2 years. It is tender to touch. 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 Drug use: No Sexual activity: Yes Partners with: Male control/protection: Condom MEDS: Current outpatient prescriptions: Current Outpatient Prescriptions on File Prior to Visit: Adapalene 0.3 % gel Apply a pea size amount to affected area every other night for 2 weeks then increase to daily as tolerated ibuprofen (MOTRIN) 800 mg tablet Take 1 tablet by mouth every 8 hours as needed. albuterol HFA (PROVENTIL HFA, VENTOLIN HFA) 90 mcg/actuation inhaler Inhale 2 Puffs as instructed every 6 hours as needed for Wheezing/Shortness of Breath. glycopyrrolate (ROBINUL) 1 mg tablet Take 1 tablet by mouth three times daily. Benzoyl Peroxide 5 % external wash Wash face and chest once daily as tolerated. Can bleach towels vilazodone (VIIBRYD) 20 mg Take 1 tablet by mouth daily with breakfast. As directed (Patient not taking: Reported on 06/02/2017 ) No current facility-administered medications on file prior to visit. ALLERGY: ALLERGIES Allergen Reactions - Chantix [Vareniclin* Other: See Comments Vomiting, diarrhea, bad dreams, restlessness, insomnia - Naproxen Other: See Comments Broke out in sweats, nightmares and all did was sleep REVIEW OF SYSTEMS: Patient feels well and denies any recent fevers, chills, or nightsweats. Skin: acne to face, lesion on arm PHYSICAL EXAM: The patient is a pleasant female in no distress. Patient appears healthy, well developed, well nourished and in otherwise good health. Alert and oriented x 3. A skin exam was done of the scalp, face including eyelids and lips, ears, neck, and left arm Andrade Skin Type: II IMPRESSION: Multiple cysts and acneiform papules throughout face Hyperpigmented dome-shaped papule to the left lateral arm A/P: 1) Acne Vulgaris, Acne Scar- reassured and discussed. Will defer treatment with aldactone and/or doxycycline as she is still trying to become . Ok to continue topical medications for now- BPO wash and adapalene. Advised pt to stop if she is . She has a consult with the fertility specialist this week. 2) Hyperhidrosis- discussed treatment options. She states Robinul and Drysol did not help. Patient deferred all medications for the treatment of her hyperhidrosis. Discussed alternative treatment options as well, consider Miradry. 3) Dermatofibroma reassured and educated, Sunscreen / sunblock protection reviewed. Follow up in 3 months and PRN Karol Marti APRN.SOFTWARE IMPLEMENTATION SPECIALIST- training Eneida Allison PA-C Attending: Dr. Hughes The intake documentation for this note was completed by Milan Oconnor LPN acting as scribe for Eneida Allison PA-C, PA. September 02, 2017 1:38 PM. I agree with the Chief Complaint, ROS, and Past Histories independently gathered by the clinical system support specialist and the remaining scribed note accurately describes my personal service to the patient. DIAG MAMM W/CAD, Observed: 08/08/2017 Status: F Source: [place] B[place] 2:01 PM [facility] REPOSITORY [facility] Imaging Services [address] [place] [address] DIAG MAMM W/CAD, BILAT MR#: [id number] Acct: [id number] Name: COLLIN APARICIO Rep #: [id number] : 1990 F 27 From: Chuck Yi MD PCP: Juan Alfaro MD Status: REG CLI Study: DIAG MAMM W/CAD, BILAT Date of Exam: 08/08/17 Exam# [id number] Ordering Dr: Afsaneh Snow ORTHODONTIST SMALL BUSINESS OWNER-C ADDENDUM by Chuck Yi MD on 08/09/17 at 1503 HPBI/DIAG MAMM W/CAD, BILAT 08/09/17 1510 Date cc: EVAN Snow; Juan Alfaro MD * Signed ADDENDUM by Chuck Yi MD on 08/09/17 at 1503 ADDENDUM This is an addendum report. Prior outside examinations were made available for comparison. Comparison is made with prior study of July 29, 2010. There has been essentially no change. Electronically Signed: Chuck Yi MD at 15:03 EDT Tel [phone], Service support , 08/09/17 1502 Date cc: EVAN Snow; Juan Alfaro MD * Signed MAMMOGRAPHY - BILATERAL DIAGNOSTIC REASON FOR EXAM: Female, 27 years old. 2 month history of a bilateral breast pain. PERTINENT HISTORY: Prior bilateral breast reduction surgery. TECHNIQUE: Digital bilateral breast pedro (3D mammographic acquisition) in the CC and MLO projections. 2-D mediolateral oblique (MLO) and craniocaudad (CC) views of both breasts were obtained. CAD: Full Field Digital Mammography with Computer Added Detection was performed. COMPARISON: None. Baseline examination. FINDINGS: Breast Composition: The breasts are heterogeneously dense, which may obscure small masses. There are no dominant masses or suspicious calcifications. No other significant abnormalities are identified. HPBI/DIAG MAMM W/CAD BILAT IMPRESSION: Negative diagnostic mammogram. With the patient's history of bilateral breast pain, correlation with ultrasound is recommended. ASSESSMENT CATEGORY: BIRADS Category 0: Incomplete. Need additional imaging evaluation. A letter regarding these results will be sent to the patient by the facility within 30 days. Approximately 10% of breast cancers are not detected by mammography. A normal mammogram should not delay biopsy of a clinically suspicious abnormality. Electronically Signed: Chuck Yi MD at 15:36 EDT Tel [phone], Service support , CC: EVAN Snow; Juan Alfaro MD Risk Consultant: Signed BREAST LIMITED Observed: 08/08/2017 Status: F Source: [place] UNILATERAL 1:57 PM [facility] REPOSITORY [facility] Imaging Services [address] [place] [address] Breast Limited Unilateral MR#: [id number] Acct: [id number] Name: COLLIN APARICIO Rep #: [id number] : 1990 F 27 From: Chuck Yi MD PCP: Juan Alfaro MD Status: REG CLI Study: Breast Limited Unilateral Date of Exam: 08/08/17 Exam# [id number] Ordering Dr: Afsaneh Snow ORTHODONTIST SMALL BUSINESS OWNER-C STUDY: ULTRASOUND BREAST - RIGHT REASON FOR EXAM: Female, 27 years old. Bilateral breast pain. History of prior bilateral breast reduction surgery. TECHNIQUE: Axial and longitudinal images of the RIGHT breast were performed with a high resolution ultrasound transducer. COMPARISON: Comparison is made with prior mammogram done earlier in the day. FINDINGS: RIGHT Breast: There is a homogeneous fibroglandular tissue. No solid or cystic mass lesion is seen. There is evidence of a benign-appearing right axillary lymph node. IMPRESSION: Small right axillary lymph node. ASSESSMENT CATEGORY: BIRADS Category 2: Benign. A letter regarding these results will be sent to the patient by the facility within 30 days. Electronically Signed: Chuck Yi MD at 8:03 EDT Tel [phone], Service support , STUDY: ULTRASOUND BREAST - LEFT REASON FOR EXAM: Female, 27 years old. Bilateral breast pain. Remote breast reduction surgery. TECHNIQUE: Axial and longitudinal images of the LEFT breast were performed with a high resolution ultrasound transducer. COMPARISON: Comparison is made with prior mammogram done earlier today. FINDINGS: LEFT Breast: The left breast was examined by ultrasound. No sonographic abnormality is seen. US/Breast Limited Unilateral IMPRESSION: Unremarkable sonographic examination. ASSESSMENT CATEGORY: BIRADS Category 1: Negative. A letter regarding these results will be sent to the patient by the facility within 30 days. Electronically Signed: Chuck Yi MD at 8:03 EDT Tel [phone], Service support , CC: EVAN Snow; Juan Alfaro MD Risk Consultant: Signed CUPOLA LINER HELPER OFFICE VISIT Observed: 08/02/2017 Status: F Source: [facility] REPORT 10:20 AM [facility] [address] [place] [address] OFFICE VISIT Date of Service: 08/02/17 MR#: [id number] Acct: [id number] Name: COLLIN APARICIO Rep #: [id number] : 1990 Provider: EVAN Snow Age/Sex: 27/F Location: [facility] [place] [facility] Status: Signed Intake Vital Signs08/02/17 Height 5 ft 1 in 08/02/17 Weight: 192 lb 6 oz 08/02/17 Body Mass Index (BMI) 36.3 08/02/17 Blood Pressure 94/61 Intake Visit Reasons: breast pain Chief Complaint: Breast Discomfort State Inspector Required: No Is patient in pain?: Yes Allergies naproxen Adverse Reaction (Verified 08/02/17 09:49) Other varenicline tartrate [From Chantix] Adverse Reaction (Verified 08/02/17 09:49) Other Is last menstrual period known: Yes Last Menstral Period: 07/01/17 Post menopausal: No Patient : No : No PFSH Medical History Scoliosis (Chronic) IBS (irritable bowel syndrome) (Chronic) Chronic back pain (Chronic) Asthma (Chronic) Depression (Acute) Anxiety (Acute) Preeclampsia (Acute) Surgical History H/O knee surgery (Acute) History of tonsillectomy (Acute) Hx of breast reduction, elective (Acute) S/P right knee arthroscopy (Acute) adnoids (Acute) c/s (Acute) Family History Mother Depression Aunt Breast cancer Grandmother Diabetes Uncle Hyperlipemia Menieres disease Depression Social History Smoking Status: Former smoker how long ago did patient quit smokin alcohol intake: never substance use type: does not use caffeine: No what type of physical activity do you participate in: weight training, walking, bicycling, none frequency: 5-6 times per week seatbelt use: always additional social history: cici Meeks ([employer]) Patient is unemployed HPI breast pain: Details: COLLIN APARICIO is a 27 year old who presents for bilateral breast tenderness X 2 months, worse prior to onset of menses. New for her in that she had bilateral breast reduction surgery at age 16 and has not had any breast/nipple sensation since then. LMP 07/01/17 History of male factor infertility, was seen in [place], told would need IVF and states can not afford to pursue further. Female Reproductive History Last Menstral Period: 07/01/17 Pregancy History 1 Elective abortions Hx Para 1 Spontaneous abortions Past Pregnancies Del. DatName GA/WeeksOutcome Route [facility] Joel Burns LgAnestheMNel LocaProviderFOB e ht en ia tn 04/19/[id number] live birC-sectio Female [facility] Nilson th - fuln d l term Exam Chest Breast inspection: normal inspection of the breasts, normal inspection of the axillae Breast palpation: normal palpation of the breasts, normal palpation of the axillae Other: Bilateral surgical scars from reduction, increased bilaterally and posterior sides. This is area of discomfort for her, bilateral. No overt masses other then along surgical line. Assessment AND Plan Problems 1. Bilateral mastodynia N64.4 Plan bilateral breast US reduce caffeine intake. Take Vit E oral daily Also gave infor for Dr. Batres, male infertility Orders Orders: Coding Level of Care Code Off vis,est,level 3 Diagnoses Bilateral mastodynia N64.4 08/02/17 1020 <Electronically signed by Afsaneh BHAT> Date Afsaneh BHAT Cosigner Signature: Date (if applicable) CC: INTERNAL MEDICINE Observed: 08/01/2017 Status: F Source: [facility] OFFICE VISIT 8:27 AM [facility] Internal Medicine [address] [place] [address] OFFICE VISIT Date of Service: 07/27/17 MR#: [id number] Acct: [id number] Name: COLLIN APARICIO Rep #: [id number] : 1990 Provider: Juan Alfaro MD Age/Sex: 27/F Location: [facility] Status: Signed Intake Vital Signs07/27/17 Height 5 ft 2 in 07/27/17 Weight: 191 lb 07/27/17 Body Mass Index (BMI) 34.9 07/27/17 Blood Pressure 122/82 07/27/17 Blood Pressure Location Rt brachial Intake Visit Reasons: 2 W FU Chief Complaint: Follow up Is patient in pain?: No Allergies naproxen Adverse Reaction (Verified 07/05/17 13:08) Other varenicline tartrate [From Chantix] Adverse Reaction (Verified 07/05/17 13:08) Other Medications Albuterol IH (ProAir) [Proair Hfa] 1 - 2 puff INHALATION Q4H PRN PRN 05/19/14 [History Confirmed 07/05/17] Benzonatate [Tessalon Perle] 200 mg PO TID PRN PRN #20 cap 07/05/17 [Rx] fluconazole 150 mg tablet 150 mg PO .COMPLEX #2 tab 07/07/17 [Rx] PFSH Medical History Scoliosis (Chronic) IBS (irritable bowel syndrome) (Chronic) Chronic back pain (Chronic) Asthma (Chronic) Depression (Acute) Anxiety (Acute) Preeclampsia (Acute) Surgical History H/O knee surgery (Acute) History of tonsillectomy (Acute) Hx of breast reduction, elective (Acute) S/P right knee arthroscopy (Acute) adnoids (Acute) c/s (Acute) Family History Mother Depression Aunt Breast cancer Grandmother Diabetes Uncle Hyperlipemia Menieres disease Depression Social History Smoking Status: Former smoker how long ago did patient quit smokin alcohol intake: never substance use type: does not use caffeine: No what type of physical activity do you participate in: weight training, walking, bicycling, none frequency: 5-6 times per week seatbelt use: always additional social history: HPI HPI Chief Complaint: Follow up Details: COLLIN APARICIO, is a 27yo F who presents to the office today for follow-up. She has no acute complaints at this time. She was seen here 2 weeks ago and at that time, there were concerns about her chronic depression/anxiety. Patient was counseled/advised to follow- up with the counseling center due to her chronic severe depression however patient declined. She states at this time that she is still considering this and is not yet ready to stop this. She is also not willing to go on medication at this time. She has been making changes to her lifestyle and diet. She will like a referral to the [facility]. ROS Const Constitutional: Positive for fatigue; no weight change, body ache, chills, sleep problems, fever(s), change in appetite, snoring, weakness, frequent falls or excessive sweating Eyes Eyes: No change in vision, eye pain, light sensitivity or blurry vision ENT ENT: No abnormal hearing, ear pain, tinnitus, nasal congestion, sore throat or neck pain Resp Respiratory: No snoring, cough, shortness of breath or wheezing Cardio Cardiology: No excessive sweating, chest pain at rest, chest pain with exertion, shortness of breath, dyspnea on exertion, palpitations, orthopnea or lightheadedness Gastro GI: No abdominal pain, change in bowel habits, constipation, diarrhea, vomiting, nausea/dyspepsia or cramping Musc Musculoskeletal: No neck pain, abnormal walking, joint pain, back pain, limited range of motion, numbness or tingling Skin Skin: No redness, dry skin, itching, lesions, wounds or rash Neuro Neurology: No weakness, frequent falls, abnormal hearing, abnormal walking, numbness, tingling, abnormal speech or memory loss Psych Psychiatric: No change in appetite, No memory loss, Positive for anxiety, No depression, No Thoughts of harming yourself/Others Endo Endocrine: Positive for fatigue; no excessive sweating, cold intolerance, increased thirst/drinking, heat intolerance, flushing or increased hunger Aller/Imm Allergy/Immunologic: No wheezing, itchy eyes, hives or seasonal allergy symptoms Dudley/Lymp Hematologic/Lymphatic: No easy bleeding, easy bruising or enlarged lymph nodes Exam Const General: cooperative, no acute distress Nutritional Appearance: obese Orientation: alert, awake, oriented x3 [facility] Head: atraumatic, normocephalic Ears: hearing grossly normal bilaterally Resp Effort AND Inspection: normal respiratory effort, able to speak in complete sentences Auscultation: Bilateral: Clear to Auscultation Cardio Rate: regular rate Rhythm: regular rhythm Heart Sounds: S1 normal, S2 normal GI Palpation: soft, no hepatosplenomegaly Neuro General: alert, awake, oriented x3, moves all extremities, CN's II-XI intact bilaterally Extrem General: no clubbing, cyanosis or edema Psych Appearance: grossly normal Mental Status: mental status grossly normal Affect: normal affect Assessment AND Plan 1. Obesity E66.9 Plan Patient is attempting better lifestyle changes. Referred to the [facility] Follow up in 1 month Orders Referrals: 2. Depression with anxiety F41.8 Plan Chronic. Patient not open to medication or counseling at this time. She however appears to be stable and has found of other coping mechanisms. Has a good support system in her mother, Fiance and daughter. Will follow up closely and readdress need for medication/counseling. Follow-up in 1 month. This note was generated with [employer] software. It may contain incorrect words, spelling, and punctuation that were not noted in checking the note before signing. Plan Detail Follow Up 1 Month Coding Level of Care Code Off vis,est,level 3 Diagnoses Obesity E66.9 Depression with anxiety F41.8 08/01/17 0827 <Electronically signed by Juan Alfaro MD> Date Juan Alfaro MD Cosigner Signature: Date (if applicable) CC: PT D/C SUMMARY (1) Observed: 07/26/2017 Status: F Source: [place] 4:55 PM [facility] REPOSITORY [facility] Physical Therapy [address] [place] [address] Fax REHABILITATION SERVICES DISCHARGE SUMMARY MR#: [id number] Acct: [id number] Name: COLLIN APARICIO Rep #: [id number] : 1990 27 From: Kenny Pedraza DPT Referring DrAni: Cris Olson DO Status: REG RCR Insurance: [facility] *IN NETWORK SELF PAY INSURANCE HP - PT D/C Summary It has been my pleasure to treat COLLIN APARICIO under orders from Cris Olson DO, for the diagnosis of R knee arthroscopy, synovectomy for a total of 11 visit(s). Discharge Date: 07/26/17 Please see the following information for a summary of their discharge status. - Subjective Subjective: Pt. reports I am doing pretty well today, but I did do a lot of walking the other day. My muscles are a little sore. Pt. reports being HEP compliant. - Pain R knee Pain Intensity (Out of 10): 0 - Overall Improvement % Improvement: 95 - Objective Objective/Function: Pt. reports she is doing very well. Pt. tolerated all gym exercises without issues. Pt. is independent with her HEP and with gym exercises at this point in time. Pt. reports no pain with walking or gym exercises. Pt. has full ROM without increase in symptoms. MMT- 5/5 throughout RLE, except 4+/5 hip abduction. Pt. is negotiating steps without increase in symptoms without HR. Pt. is completing with reciprocal pattern without increase in symptoms. Pt. is back to gym exercises and HEP without issues. - Goals Goal 1:: Pt. to be I with HEP. Goal Progress: Goal Met Goal 2:: Pt. to have increased ROM to 0-0-130deg. of R knee without symptoms allowing for increased tolerance to all ADLs. Goal Progress: Goal Met Goal 3:: Pt. to have increased RLE strength including hip and core by 1/2 grade reducing stress applied to R knee with all functional mobility. Goal Progress: Goal Met Goal 4:: Pt. to have normal gait pattern without increase in symptoms. Goal Progress: Goal Met Goal 5:: Pt. to negotiate stairs with 1 HR with reciprocal pattern without increase in symptoms. Goal Progress: Goal Met - Plan Plan: Pt. to be PT. DC to HEP at this point in time to gym exercises and HEP. - D/C Information Discharge Comments: Pt. was treated for her R knee arthroscopy with ROM, strengthening, and progressing to gym exercises. Pt. is no longer having any pain. She is independent with her current program and has minimal issues with her functional mobility. She reports occassional soreness with decending steps, but infrequently. Pt. will be DC to HEP at this point in time. If there are questions or concerns regarding this patient's physical therapy, please feel free to call me at [phone]. Thank you for the referral of this patient. Sincerely, Kenny Pedraza <Electronically signed by Kenny Pedraza DPT> 07/26/17 1655 CC: Cris Olson DO; Juan Alfaro MD CLS Signed INTERNAL MEDICINE Observed: 07/14/2017 Status: F Source: [facility] OFFICE VISIT 6:45 PM [facility] Internal Medicine [address] [place] [address] OFFICE VISIT Date of Service: 07/13/17 MR#: [id number] Acct: [id number] Name: COLLIN APARICIO Rep #: [id number] : 1990 Provider: Juan Alfaro MD Age/Sex: 27/F Location[place] [facility] [place] Status: Signed Intake Vital Signs07/13/17 Height 5 ft 2 in Intake Visit Reasons: 6 MO F/U, WANTS REFERRAL TO [facility] Chief Complaint: Weight management. Is patient in pain?: No Allergies naproxen Adverse Reaction (Verified 07/05/17 13:08) Other varenicline tartrate [From Chantix] Adverse Reaction (Verified 07/05/17 13:08) Other Medications Albuterol IH (ProAir) [Proair Hfa] 1 - 2 puff INHALATION Q4H PRN PRN 05/19/14 [History Confirmed 07/05/17] Benzonatate [Tessalon Perle] 200 mg PO TID PRN PRN #20 cap 07/05/17 [Rx] fluconazole 150 mg tablet 150 mg PO .COMPLEX #2 tab 07/07/17 [Rx] PFSH Medical History Scoliosis (Chronic) IBS (irritable bowel syndrome) (Chronic) Chronic back pain (Chronic) Asthma (Chronic) Depression (Acute) Anxiety (Acute) Preeclampsia (Acute) Surgical History H/O knee surgery (Acute) History of tonsillectomy (Acute) Hx of breast reduction, elective (Acute) S/P right knee arthroscopy (Acute) adnoids (Acute) c/s (Acute) Family History Mother Depression Aunt Breast cancer Grandmother Diabetes Uncle Hyperlipemia Menieres disease Depression Social History Smoking Status: Former smoker how long ago did patient quit smokin alcohol intake: never substance use type: does not use caffeine: No what type of physical activity do you participate in: weight training, walking, bicycling, none frequency: 5-6 times per week seatbelt use: always additional social history: HPI HPI Chief Complaint: Weight management. Details: COLLIN APARICIO, is a 27yo F who presents to the office due to concerns about weight management. She reports an almost lifelong struggle with weight management. She had returned to being active after however, this was discontinued due to bilateral knee pain. She followed up with Ortho surgery and has had surgery to both knees. She has been undergoing physical therapy and she now believes she is ready to go back to increased physical activity. On further discussion about her weight, patient became very tearful disclosing her lifelong struggle with anxiety, depression and emotional eating. She has been on several antidepressants in the past and had followed up previously with a psychiatrist. Last use of antidepressant medication was over a year ago. She discontinued following up with her psychiatrist due to distance. She however admits to significant difficulty dealing with daily life stresses/activities. She denies any suicidal or homicidal ideations or attempts. Recently seen in the ER and managed for the flu. She has done well since then. She denies chills, fever or otherwise feeling of unwell. ROS Const Constitutional: No weight change, body ache, chills, fatigue, sleep problems, fever(s), change in appetite, snoring, weakness, frequent falls, headache(s) or excessive sweating Eyes Eyes: No change in vision, eye pain, light sensitivity or blurry vision ENT ENT: No headache(s), abnormal hearing, ear pain, tinnitus, nasal congestion, sore throat or neck pain Resp Respiratory: No snoring, cough, shortness of breath or wheezing Cardio Cardiology: No excessive sweating, chest pain at rest, chest pain with exertion, shortness of breath, dyspnea on exertion, palpitations, orthopnea or lightheadedness Gastro GI: No abdominal pain, change in bowel habits, constipation, diarrhea, vomiting, nausea/dyspepsia or cramping Musc Musculoskeletal: No neck pain, abnormal walking, joint pain, back pain, limited range of motion, numbness or tingling Skin Skin: No redness, dry skin, itching, lesions, wounds or rash Neuro Neurology: No weakness, frequent falls, headache(s), abnormal hearing, abnormal walking, numbness, tingling, abnormal speech, dizziness or memory loss Psych Psychiatric: No change in appetite, No memory loss, Positive for anxiety, Positive for depression, No Thoughts of harming yourself/Others Endo Endocrine: No fatigue, excessive sweating, cold intolerance, increased thirst/drinking, heat intolerance, flushing or increased hunger Aller/Imm Allergy/Immunologic: No wheezing, itchy eyes, hives or seasonal allergy symptoms Dudley/Lymp Hematologic/Lymphatic: No easy bleeding, easy bruising or enlarged lymph nodes Exam Const General: cooperative, no acute distress Nutritional Appearance: obese Orientation: alert, awake, oriented x3 HENPA Head: atraumatic, normocephalic Ears: hearing grossly normal bilaterally Resp Effort AND Inspection: normal respiratory effort, able to speak in complete sentences Auscultation: Bilateral: Clear to Auscultation Cardio Rate: regular rate Rhythm: regular rhythm Heart Sounds: S1 normal, S2 normal GI Palpation: soft, no hepatosplenomegaly Neuro General: alert, awake, oriented x3, moves all extremities, CN's II-XI intact bilaterally Extrem General: no clubbing, cyanosis or edema Psych Appearance: grossly normal Mental Status: mental status grossly normal Affect: sad Assessment AND Plan 1. Depression with anxiety F41.8 Plan She describes a chronic history of anxiety and depression dating back to age 5. She has been on several antidepressants/anti-anxiety medications over the years. Has also followed up with a psychiatrist in the past however not currently following up with one and is also not on any medication. She however describes significant difficulty managing her lifestyle/stress and her diet. She is skeptical about going back on the medication due to weight gain. She also is skeptical about behavioral therapy and believes it was not beneficial in the past. Spent over 30 minutes counseling patient on the benefits of counseling/behavioral therapy and medication considering her chronic/extensive history of anxiety and depression. She maintained that she is not open to these at this time but will consider it. Follow up in 2 weeks 2. Obesity E66.9 Plan Patient describes a lifelong struggle with her weight. She will like to start the why weight program. However did advise patient that it probably would be better if she started out with behavioral therapy first and then subsequently the [facility] Weight program. Will readdress at the next visit. This note was generated with Breezy [employer] software. It may contain incorrect words, spelling, and punctuation that were not noted in checking the note before signing. Plan Detail Follow Up 2 Weeks Coding Level of Care Code Off vis,est,level 3 Diagnoses Depression with anxiety F41.8 Obesity E66.9 07/14/17 1845 <Electronically signed by Juan Alfaro MD> Date Juan Alfaro MD Cosigner Signature: Date (if applicable) CC: DISCHARGE INSTRUCTION Observed: 07/05/2017 Status: F Source: [place] 1:44 PM [facility] REPOSITORY [facility] Medical Records Department [address] [place] [address] Discharge Instruction 07/05/17 1343 MR#: [id number] Acct: [id number] Name: COLLIN APARICIO Rep #: [id number] : 1990 27 From: Ami Koroma DO PCP: Juan Alfaro MD Status: REG ER ED Disposition - Plan for ED Patient: Chief Complaint: Cough Instructions: ED Flu Prescriptions: Ondansetron [Zofran Odt] 4 mg PO Q8H PRN PRN #10 tab PRN Reason: Nausea Benzonatate [Tessalon Perle] 200 mg PO TID PRN PRN #20 cap PRN Reason: Cough Referrals: Juan Alfaro MD [Primary Care Provider] - 5-7 Days What to do if you have Problems For any increased pain, shortness of breath, bleeding, nausea or vomiting, chest pain, or any unexpected problems, contact your Primary Care Provider. Call [facility] ([phone]) or report to the closest Emergency Room. Call 911 if necessary. 07/05/17 1344 <Electronically signed by Ami Koroma DO> Date Ami Koroma DO Nuriaignjoanna Signature (If Indicated): Date CC: Juan Alfaro MD EMERGENCY DEPARTMENT Observed: 07/05/2017 Status: F Source: [place] SUMMARY 1:43 PM [facility] REPOSITORY [facility] Medical Records Department [address] [place] [address] Emergency Department Summary 07/05/17 1340 MR#: [id number] Acct: [id number] Name: COLLIN APARICIO Rep #: [id number] : 1990 27 From: Ami Koroma DO PCP: Juan Alfaro MD Status: REG ER - ER Visit Summary Date of Service: 07/05/17 Chief Complaint: [Fever and cough] History of Present Illness: The patient is a 27 F [presents to the emergency department with multiple complaints 2 days. Patient states that her entire family's been sick with bronchitis. Patient started with fever yesterday. Patient has had chills and a cough. Patient planes of body aches and sore throat. Patient describes nausea.] Physical Examination: [HEENT-PERRLA, EOMI. Cranial nerves II through XII grossly intact. TMs clear. Mucous membranes moist. No adenopathy. Clear rhinorrhea. Minimal pharyngeal erythema. Cardiovascular-regular cardiac. No murmurs auscultated. Lungs-clear to auscultation, chest wall stable without crepitus or subcu emphysema Abdomen-normoactive bowel sounds, soft, nontender, no rebound or rigidity, no peritoneal signs. Extremities-intact 4, normal range of motion, normal pulses, atraumatic] Test Results: [None indicated] Emergency Department Course and Treatment: [I believe the patient has influenza. We discussed Tamiflu however she would prefer not to move forward with the Tamiflu.] Treatment Plan: [Is to push fluids and get lots of rest. Patient will be given a prescription for Zofran and Tessalon Perles. Patient advised to follow- up with her primary care physician within next 5-7 days. Patient to return if increasing shortness of breath or condition should worsen in any way. Disposition: [Discharged to home in stable condition] Impression: [Influenza] This note was generated with Covercake dictation software. It may contain incorrect words, spelling, and punctuation that were not noted in review of the chart prior to signing ED Disposition - Plan for ED Patient: Chief Complaint: Cough Referrals: Juan Alfaro MD [Primary Care Provider] - What to do if you have Problems For any increased pain, shortness of breath, bleeding, nausea or vomiting, chest pain, or any unexpected problems, contact your Primary Care Provider. Call [facility] ([phone]) or report to the closest Emergency Room. Call 911 if necessary. 07/05/17 1343 <Electronically signed by Ami Koroma DO> Date Ami Koroma DO Cosigner Signature (If Indicated): Date CC: Juan Alfaro MD HCG TITER QUANT., Collected: 06/27/2017 Status: F Source: [place] SERUM 5:06 PM [facility] REPOSITORY TYPE CODE TESTS RESULT OUT OF RANGE REFERENCE UNITS LAB L700.8000 <9 non-preg mIU/mL Normal HCG < 1 QUANT. Performed By: #### L700.8000 #### [facility] Laboratory [address] [place], [address] ORTHOPEDIC VISIT Observed: 06/16/2017 Status: F Source: [place] REPORT 1:40 PM [facility] REPOSITORY [facility] Orthopaedics AND Sports Medicine [address] [place] [address] [address] [place] [address] OFFICE VISIT Date of Service: 06/16/17 MR#: [id number] Acct: [id number] Name: COLLIN APARICIO Rep #: [id number] : 1990 Provider: Cris Olson DO Age/Sex: 27/F [place] [facility] [place] Status: Signed Intake Intake Visit Reasons: RT KNEE Is patient in pain?: No Allergies naproxen Adverse Reaction (Verified 06/16/17 10:23) Other varenicline tartrate [From Chantix] Adverse Reaction (Verified 06/16/17 10:23) Other Medications Albuterol IH (ProAir) [Proair Hfa] 1 - 2 puff INHALATION Q4H PRN PRN 05/19/14 [History Confirmed 06/16/17] ibuprofen 800 mg tablet 800 mg PO TID PRN #30 tab 05/20/17 [Rx Confirmed 06/16/17] glycopyrrolate 1 mg tablet 2 mg PO ONCE PRN tab 06/16/17 [History Confirmed 06/16/17] PFSH Medical History Scoliosis (Chronic) IBS (irritable bowel syndrome) (Chronic) Chronic back pain (Chronic) Asthma (Chronic) Depression (Acute) Anxiety (Acute) Preeclampsia (Acute) Surgical History H/O knee surgery (Acute) History of tonsillectomy (Acute) Hx of breast reduction, elective (Acute) S/P right knee arthroscopy (Acute) adnoids (Acute) c/s (Acute) Family History Mother Depression Aunt Breast cancer Grandmother Diabetes Uncle Hyperlipemia Menieres disease Depression Social History Smoking Status: Never smoker how long ago did patient quit smokin alcohol intake: never substance use type: does not use caffeine: No what type of physical activity do you participate in: weight training, walking, bicycling, none frequency: 5-6 times per week seatbelt use: always additional social history: HPI RT KNEE: Details: COLLIN APARICIO is a 27 year old F here today s/p right knee scope DOS 05/06/17. She states after PT and after she walks a lot she will have medial knee pain. She will have swelling after PT or after she has been very active. She denies radiation of pain. No tinging/numbness. She has had 3 visits to PT. She states she noticed about 3 weeks after her surgery she started having intermittent groin pain. ROS Const Reports system reviewed and no additional complaints, except as docu Eyes Reports system reviewed and no additional complaints, except as docu ENT Reports system reviewed and no additional complaints, except as docu Card Reports system reviewed and no additional complaints, except as docu Resp Reports system reviewed and no additional complaints, except as docu GI Reports system reviewed and no additional complaints, except as docu Reports system reviewed and no additional complaints, except as docu Musc Reports joint swelling Skin/Breast Reports system reviewed and no additional complaints, except as docu Neuro Yes system reviewed and no additional complaints, except as docu Psych Reports system reviewed and no additional complaints, except as docu Endo Reports system reviewed and no additional complaints, except as docu Dudley/Lymph Reports system reviewed and no additional complaints, except as docu Aller/Immun Reports system reviewed and no additional complaints, except as docu Ortho Exam Right Knee Skin/Wound: Yes CDI Contralateral Normal: Yes Swelling: No Homans Sign: No Knee ROM: Yes ROM-Extension -20 to 0 Quad Atrophy: Yes Examination: Pain with flexion Stability: NML: Anterior Drawer, NML: Margarita, NML: Posterior Drawer, NML: Valgus 0, NML: Valgus 30, NML: Varus 0, NML: Varus 30, NML: Dial 90, NML: Dial 30 Apprehension with Lateral Translation: No Patellar Tilt Normal: Yes Patella Grind: No Assessment AND Plan Plan Instructed to work on strengthening, it will aid in relief of knee and hip pain and her balance. Use ice prn. Follow up in 6wks or sooner if pain, swelling, numbness or associated symptoms, or concerns develop. All questions answered. Patient in agreement of plan. Medications Discontinued: codeine-guaifenesin 10-100 mg/5 mL (Cheratussin AC) Disc10 mL PO Q6H PRN flu symptoms ontinued Reason: Pt no longer taking Coding Level of Care Code Global Post Op 06/16/17 5850 <Electronically signed by Cris Olson DO> Date Cris Moser Signature: Date (if applicable) CC: ALLERGIES ALLERGIES DATE TYPE / CODE NAME / CODE REACTION SEVERITY SOURCE 05/24/2018 Drug varenicline Other Unknown [place] Allergy/416 tartrate/[id number] [facility] [address]042([facility] 9(RXNORM) [facility] ED CT) Repository 05/24/2018 Drug naproxen/[id number] Other Unknown [place] Allergy/416 0(RXNORM) [facility] 404838([facility] ED CT) Repository 08/21/2010 DRUG NAPROXEN OTHER: SEE C [address] [address]([facility] Repository ED CT) 12/08/2009 DRUG VARENICLINE OTHER: SEE C [address] [address]([facility] Repository ED CT) ENCOUNTERS ENCOUNTERS ADMIT/DISCHARGE ACCOUNT ADMITTING ENCOUNTER LOCATION SOURCE NUMBER CLASS 06/14/2018 [id number] Ambulatory [facility] Hospital ing:MTLAB Repository 06/14/2018/06/14/19 [id number] Ambulatory BMSBuilding:B [place] 19 [place].[facility] Repository 05/24/2018/05/24/19 [id number] Ambulatory BMSBuilding:B [place] 19 [facility] Repository 05/19/2018/05/19/20 [id number] Ambulatory BMSBuilding:B [place] 18 [facility].Critical access hospital Repository 05/05/2018/05/06/20 [id number] [facility] Ambulatory [place] 18 [facility] Hospital ing:CL1Ldnj: Repository HJ247Dls: 1 05/05/2018 [id number] [place] Ambulatory BMSBuilding:[facility] [place]Critical access hospital Repository 05/05/2018 [id number] Ambulatory BMSBuilding:B [place] [facility].Critical access hospital Repository 05/05/2018/05/05/20 [id number] Ambulatory BMSBuilding:B [place] 18 [facility] Repository 04/21/2018/04/21/20 [id number] Ambulatory BMSBuilding:B [place] 18 [place].[facility] Hospital Repository 04/12/2018/04/12/20 [id number] Emergency [address] Hospital ing:ED Repository 04/10/2018 [id number] Ambulatory [facility] Hospital ing:RAD Repository 03/30/2018/03/30/20 [id number] Ambulatory BMSBuilding:B [place] 18 [facility] Repository 03/29/2018 [id number] Ambulatory BMSBuilding:B [place].[facility] Hospital Repository 03/20/2018/03/20/20 [id number] Ambulatory [address] Hospital ing:PT Repository 02/28/2018 [id number] Ambulatory [facility] Hospital ing:HPRAD Repository 02/28/2018/02/29/20 [id number] Ambulatory BMSBuilding:B [place] 18 MS.[facility] Hospital Repository 02/14/2018/02/15/20 [id number] Ambulatory BMSBuilding:B [place] 18 [facility] Repository 02/02/2018 [id number] Ambulatory BMSBuilding:B [place].[facility] Hospital Repository 01/10/2018/01/11/20 [id number] Ambulatory BMSBuilding:B [place] 18 [facility] Repository 12/06/2017/12/07/19 [id number] Ambulatory BMSBuilding:B [place] 18 [facility] Repository 11/08/2017 [id number] Ambulatory BMSBuilding:B [place].[facility] Hospital Repository 10/19/2017 [id number] Ambulatory [facility] Hospital ing:MTLAB Repository 10/19/2017/10/20/19 [id number] Ambulatory BMSBuilding:B [place] 18 [facility] Repository 09/05/2017/09/06/19 [id number] Ambulatory BMSBuilding:B [place] 18 [facility] Repository 09/02/2017/09/07/19 [id number] Ambulatory [address] Repository 08/17/2017 [id number] Ambulatory BMSBuilding:B [place] Repository 08/08/2017 [id number] Ambulatory [facility] Hospital ing:BI Repository 08/04/2017 [id number] Ambulatory BMSBuilding:B [place].[facility] Hospital Repository 08/02/2017/08/03/19 [id number] Ambulatory BMSBuilding:B [place] 18 [facility] Repository 07/27/2017/07/28/19 [id number] Ambulatory BMSBuilding:B [place] 18 [place].[facility] Repository 07/26/2017/07/27/19 [id number] Ambulatory [address] Hospital ing:PT Repository 07/13/2017/07/13/19 [id number] Ambulatory BMSBuilding:B [place] 18 [place].[facility] Repository 07/05/2017/07/05/19 [id number] Emergency [address] Hospital ing:ED Repository 06/27/2017 [id number] Ambulatory [facility] Hospital ing:LAB Repository 06/16/2017/06/16/19 [id number] Ambulatory BMSBuilding:B [place] 18 [facility] Repository PAYERS PAYERS ENCOUNTER GUARANTOR PAYER SUBSCRIBER SOURCE 06/14/2018 COLLIN Danieloster [id number] Insurance:MYCARE CRSC TOPEDOB: [facility] [id number] Number: Repository [address]Sxh: [phone] [id number] [phone] () Date:8853-10-28JQVA CLAIMS [address] [place] [address]QF: 06/14/2018 Secondary NOT GIVENUNK [place] Insurance:SELF PAY [facility] Number: Effective Repository Date:2018-06-14 06/14/2018 COLLIN CELESTE Primary COLLIN CELESTE [place] [id number] Insurance:MYCARE CRSC TOPEDOB: [facility] *[address] [facility] [id number], [place] Number: Repository [id number]: 330 [id number] [phone] (HP) Date:0351-12-45OVNW [place]S [address] [address]XH: 06/14/2018 Secondary NOT GIVENUNK [place] Insurance:SELF PAY [facility] Number: Effective Repository Date:2018-06-12 05/24/2018 COLLIN CELESTE Primary COLLIN Aleman [id number] Insurance:MYCARE CRSC TOPEDOB: [facility] [place] *[address] [facility] [id number], [place] Number: Repository [address]Kqo: 330 [id number] [phone] (HP) Date:[id number] CLAIMS [address] [address]JR: 05/24/2018 Secondary NOT GIVENUNK [place] Insurance:SELF PAY [facility] Number: Effective Repository Date:2018-05-24 05/19/2018 COLLIN CELESTE Primary COLLIN CELESTE [place] [id number] Insurance:MYCARE CRSC TOPEDOB: [facility] [place] *[address] [facility] [id number] Number: Repository [address]Bgw: 330 [id number] [phone] (HP) Date:[id number] CLAIMS [address] [address]QI: 05/19/2018 Secondary NOT GIVENUNK [place] Insurance:SELF PAY [facility] Number: Effective Repository Date:2018-05-17 05/05/2018 COLLIN CELESTE Primary COLLIN Aleman [id number] Insurance:MYCARE CRSC TOPEDOB: [facility] [place] *[address] [facility] [id number] Number: Repository [address]Gxe: 330 [id number] [phone] (HP) Date:1682-57-77LEHV [place]S [address] [address]MZ: 05/05/2018 Secondary NOT GIVENUNK [place] Insurance:SELF PAY [facility]: Effective Repository Date:2018-05-05 05/05/2018 COLLIN CELESTE Primary COLLIN CELESTE [place] [id number] Insurance:MYCARE CRSC TOPEDOB: [facility] [place] *[address] [facility] [id number], [place] Number: Repository [address]Emj: 330 [id number] [phone] (HP) Date:[id number] CLAIMS [address] [address]SW: 05/05/2018 Secondary NOT GIVENUNK [place] Insurance:SELF PAY [facility] Number: Effective Repository Date:2018-05-05 05/05/2018 COLLIN CELESTE Primary COLLIN CELESTE [place] [id number] Insurance:MYCARE CRSC TOPEDOB: [facility] [place] *[address] [facility] [id number] Number: Repository [address]Wme: 330 [id number] [phone] (HP) Date:[id number] CLAIMS [address] [address]XJ: 05/05/2018 Secondary NOT GIVENUNK [place] Insurance:SELF PAY [facility] Number: Effective Repository Date:2018-05-05 05/05/2018 COLILN N Primary COLLIN N [place] [id number] Insurance:MYCARE CRSC TOPEDOB: [facility] [place] *[address] [facility] [id number] Number: Repository [address]Gau: 330 [id number] [phone] (HP) Date:0490-81-22WOMS CLAIMS [address] [address]AW: 05/05/2018 Secondary NOT GIVENUNK [place] Insurance:SELF PAY [facility] Number: Effective Repository Date:2018-05-05 04/21/2018 COLLIN N Primary COLLIN N [place] [id number] Insurance:MYCARE CRSC TOPEDOB: [facility] *[address] [facility] [id number] Number: Repository [address]Tjw: 330 [id number] [phone] () Date:7763-79-46DPUB [place]S [address] [address]JP: 04/21/2018 Secondary NOT GIVENUNK [place] Insurance:SELF PAY [facility] Number: Effective Repository Date:2018-04-20 04/12/2018 COLLIN N Primary COLLIN N [place] [id number] Insurance:MYCARE CRSC TOPEDOB: [facility] *IN [facility] [id number] Number: Repository [address]Fgt: 330 [id number] [phone] (HP) Date:4666-56-24OGTC [place]S DE[place] [address]JZ: 04/12/2018 Secondary NOT GIVENUNK [place] Insurance:SELF PAY [facility] Number: Effective Repository Date:2018-04-12 04/10/2018 COLLIN N Primary COLLIN N [place] [id number] Insurance:MYCARE CRSC TOPEDOB: [facility] *IN [facility] [id number] Number: Repository [address]Pga: 330 [id number] [phone] () Date:8166-87-33JAEE [place]S DE[address] [address]GE: 04/10/2018 Secondary NOT GIVENUNK [place] Insurance:SELF PAY [facility] Number: Effective Repository Date:2018-04-03 03/30/2018 COLLIN CELESTE Primary COLLIN CELESTE [place] [id number] Insurance:MYCARE CRSC TOPEDOB: [facility] *IN [facility] [id number] Number: Repository [address]Pjn: 330 [id number] [phone] (HP) Date:4436-69-86JKUI CLAIMS [address] [address]MK: 03/30/2018 Secondary NOT GIVENUNK [place] Insurance:SELF PAY [facility] Number: Effective Repository Date:2018-03-30 03/29/2018 COLLIN CELESTE Primary COLLIN CELESTE [place] [id number] Insurance:MYCARE CRSC TOPEDOB: [facility] [place] *IN [facility] [id number] Number: Repository [address]Wos: 330 [id number] [phone] () Date:0504-08-56PNJH CLAIMS [address]PTPO [address] [address]ZA: 03/29/2018 Secondary NOT GIVENUNK [place] Insurance:SELF PAY [facility] Number: Effective Repository Date:2018-03-29 03/20/2018 COLLIN CELESTE Primary COLLIN CELESTE Ash [id number] Insurance:MYCARE CRSC TOPEDOB: [facility] [place] *IN [facility] [id number] Number: Repository [address]Jds: 330 [id number] [phone] () Date:7990-16-05QEXS CLAIMS [address] [address]CJ: 03/20/2018 Secondary NOT GIVENUNK [place] Insurance:SELF PAY [facility] Number: Effective Repository Date:2018-02-28 02/28/2018 COLLIN CELESTE Primary COLLIN [place] [id number] Insurance:MYCARE CRSC TOPEDOB: [facility] [place] *IN [facility] [id number] Number: Repository [address]Ohk: 330 [id number] [phone] (HP) Date:7898-51-45QHPE CLAIMS DEPTPO [address] [address]BW: 02/28/2018 Secondary NOT GIVENUNK [place] Insurance:SELF PAY [facility]: Effective Repository Date:2018-02-28 02/28/2018 COLLIN CELESTE Primary COLLIN [place] [id number] Insurance:MYCARE CRSC TOPEDOB[facility]IN [facility] [id number] Number: Repository [address]Tqg: 330 [id number] [phone] (HP) Date:9090-81-35JUHP CLAIMS DE[address] [address]HJ: 02/28/2018 Secondary NOT GIVENUNK [place] Insurance:SELF PAY [facility] Number: Effective Repository Date:2018-02-28 02/14/2018 COLLIN CELESTE Primary COLLIN CELESTE [place] [id number] Insurance:MYCARE CRSC TOPEDOB: [facility] [place] *IN [facility] 6821-30-13[place]GN[place] Number: Repository [address]Kbp: 330 [id number] [phone] (HP) Date:2359-45-81ZESP CLAIMS DE[address]PO [address] [address]FI: 02/14/2018 Secondary NOT GIVENUNK [place] Insurance:SELF PAY [facility] Number: Effective Repository Date:2018-02-14 02/02/2018 COLLIN CELESTE Primary COLLIN [place] [id number] Insurance:MYCARE CRSC TOPEDOB: [facility]IN [facility] [id number] Number: Repository [address]Yor: 330 [id number] [phone] (HP) Date:6912-42-70WMIY CLAIMS DE[address]PO [address] [address]JY: 02/02/2018 Secondary NOT GIVENUNK [place] Insurance:SELF PAY [facility] Number: Effective Repository Date:2018-01-06 01/10/2018 COLLIN CELESTE Primary COLLIN [place] [id number] Insurance:MYCARE CRSC TOPEDOB: [facility] [place] *IN [facility] 3519-77-42INL[place] Number: Repository [address]Bjd: 330 [id number] [phone] (HP) Date:5813-82-95HRNY CLAIMS DE[address]PO [address] [address]JZ: 01/10/2018 Secondary NOT GIVENUNK [place] Insurance:SELF PAY [facility] Number: Effective Repository Date:2018-01-10 12/06/2017 COLLIN CELESTE Primary COLLIN [place] [id number] Insurance:MYCARE CRSC TOPEDOB: [facility] *IN [facility] [id number] Number: Repository [address]Vgn: 330 [id number] [phone] (HP) Date:3249-39-12UDBG CLAIMS [address] [address]SN: 12/06/2017 Secondary COLLIN [place] Insurance:MEDICAIDPol TOPEDOB: [facility] Number: [id number] [id number] Repository Date:2017-09-05 12/06/2017 Tertiary NOT GIVENUNK [place] Insurance:SELF PAY [facility] Number: Effective Repository Date:2017-11-16 11/08/2017 COLLIN CELESTE Primary COLLIN [place] [id number] Insurance:MYCARE CRSC TOPEDOB: [facility] *IN [facility] 9576-20-45[place]CN[place] Number: Repository [address]Msv: 330 [id number] [phone] (HP) Date:7262-64-90TGLR CLAIMS [address]PO [address] [address]YT: 11/08/2017 Secondary NOT GIVENUNK [place] Insurance:SELF PAY [facility] Number: Effective Repository Date:2017-10-19 10/19/2017 COLLIN CELESTE Primary COLLIN CELESTE Ash [id number] Insurance:MYCARE CRSC TOPEDOB: [place] *[place] [address] Number: Repository [address]Nzc: 330 [id number] [phone] (HP) Date:0009-06-28LBGU CLAIMS [address] [address]CK: 10/19/2017 Secondary NOT GIVENUNK [place] Insurance:SELF PAY [facility] Number: Effective Repository Date:2017-10-19 10/19/2017 COLLIN CELESTE Primary COLLIN CELESTE [place] [id number] Insurance:MYCARE CRSC TOPEDOB: [facility] *IN [address] Number: Repository [address]Edt: 330 [id number] [phone] (HP) Date:7893-92-26VHJJ CLAIMS DEPTPO [address] [address]BM: 10/19/2017 Secondary NOT GIVENUNK [place] Insurance:SELF PAY [facility] Number: Effective Repository Date:2017-10-19 09/05/2017 COLLIN CELESTE Primary COLLIN CELESTE [place] [id number] Insurance:MYCARE CRSC TOPEDOB: [facility] *IN [address] Number: Repository [address]Mwd: 330 [id number] [phone] (HP) Date:6762-58-31OOZN CLAIMS DEPTPO [address] [address]UQ: 09/05/2017 Secondary NOT GIVENUNK [place] Insurance:SELF PAY [facility] Number: Effective Repository Date:2017-09-05 08/17/2017 COLLIN CELESTE Primary COLLIN CELESTE [place] [id number] Insurance:MYCARE CRSC TOPEDOB: [facility]IN [facility] [id number] Number: Repository [address]Dxx: 330 [id number] [phone] () Date:9837-09-67FKUJ CLAIMS DEPT[address] [place] [address]YK: 08/17/2017 Secondary NOT GIVENUNK [place] Insurance:SELF PAY [facility] Number: Effective Repository Date:2017-04-23 08/08/2017 COLLIN CELESTE Primary COLLIN CELESTE [place] [id number] Insurance:MYCARE CRSC TOPEDOB: [facility]IN [facility] [id number], [place] Number: Repository [address]Ary: 330 [id number] [phone] () Date:6601-48-40OOAE CLAIMS DE[address] [place] [address]ZR: 08/08/2017 Secondary NOT GIVENUNK [place] Insurance:SELF PAY [facility] Number: Effective Repository Date:2017-08-03 08/04/2017 COLLIN CELESTE Primary COLLIN CELESTE [place] [id number] Insurance:MYCARE CRSC TOPEDOB: [facility]IN [facility] 5797-93-45[place]ER[place] Number: Repository [address]Fgq: 330 [id number] [phone] () Date:4629-81-42ZRMX CLAIMS DEPTPO [address] [place] [address]PX: 08/04/2017 Secondary NOT GIVENUNK [place] Insurance:SELF PAY [facility] Number: Effective Repository Date:2017-06-16 08/02/2017 COLLIN CELESTE Primary COLLIN [place] [id number] Insurance:MYCARE CRSC TOPEDOB: [facility]IN [facility] [id number] Number: Repository [address]Vfv: 330 [id number] [phone] (HP) Date:3688-33-93PPVA CLAIMS DEPTPO [address] [address]WC: 08/02/2017 Secondary NOT GIVENUNK [place] Insurance:SELF PAY [facility] Number: Effective Repository Date:2017-08-01 07/27/2017 COLLIN CELESTE Primary COLLIN [place] [id number] Insurance:MYCARE CRSC TOPEDOB: [facility] [place] *IN [facility] 6921-47-27[place]AM[place], [place] Number: Repository [address]Snl: 330 [id number] [phone] (HP) Date:3160-68-04LMQH CLAIMS DEPTPO [address] [address]DQ: 07/27/2017 Secondary NOT GIVENUNK [place] Insurance:SELF PAY [facility] Number: Effective Repository Date:2017-07-13 07/26/2017 COLLIN CELESTE Primary COLLIN [place] [id number] Insurance:MYCARE CRSC TOPEDOB: [facility] [place] *IN [facility] 5545-10-84MEVMaure[place], [place] Number: Repository [address]Ysr: 330 [id number] [phone] (HP) Date:4702-29-89HIOB CLAIMS DEPTPO [address] [address]UP: 07/26/2017 Secondary NOT GIVENUNK [place] Insurance:SELF PAY [facility] Number: Effective Repository Date:2017-05-19 07/13/2017 COLLIN CELESTE Primary COLLIN [place] [id number] Insurance:MYCARE CRSC TOPEDOB: [facility] [place] [address] Number: Repository [address]Vep: 330 [id number] [phone] (HP) Date:4582-15-08SLXU CLAIMS DEPTPO [address] [address]BW: 07/13/2017 Secondary NOT GIVENUNK [place] Insurance:SELF PAY [facility] Number: Effective Repository Date:2017-07-11 07/05/2017 COLLIN CELESTE Primary COLLIN [place] [id number] Insurance:MYCARE CRSC TOPEDOB: [place] *[place] [address] Number: Repository [address]Lhv: 330 [id number] [phone] (HP) Date:6569-60-36HFJL CLAIMS DE[address] [address]JM: 07/05/2017 Secondary NOT GIVENUNK [place] Insurance:SELF PAY [facility] Number: Effective Repository Date:2017-07-05 06/27/2017 COLLIN CELESTE Primary COLLIN [place] [id number] Insurance:MYCARE CRSC TOPEDOB: [place] *[place] [address] Number: Repository [address]Dah: 330 [id number] [phone] (HP) Date:1947-98-16QTMT CLAIMS DEPTPO [address] [address]BM: 06/27/2017 Secondary NOT GIVENUNK [place] Insurance:SELF PAY [facility] Number: Effective Repository Date:2017-06-27 06/16/2017 COLLIN CELESTE Primary COLLIN [place] [id number] Insurance:MYCARE CRSC TOPEDOB: [place] *IN [facility] [id number] Number: Repository [address]Zjq: (953) [id number] [phone] (HP) Date:8320-52-61EQWG CLAIMS DEPTPO [address] [address]HU: 06/16/2017 Secondary NOT GIVENUNK [place] Insurance:SELF PAY [facility] Number: Effective Repository Date:2017-05-19
== END 2018-05-06 15:54 | disposition home or self-care (01) ==
LOC: ED 19:11 → MS2 22:42
PROVIDERS: Admitting Provider Surgery; Emergency Provider Emergency Medicine; Family Provider Internal Medicine; PCP Internal Medicine; Referring Provider Surgery; Visit Provider Surgery
PROC: 0DTJ4ZZ Resection of Appendix, Percutaneous Endoscopic Approach (ICD-10-PCS; CPT 44970; principal; 2018-05-06 10:00)
DX: K35.80 Unspecified acute appendicitis (principal); K21.9 Gastro-esophageal reflux disease without esophagitis; E66.9 Obesity, unspecified; M41.9 Scoliosis, unspecified; K58.9 Irritable bowel syndrome, unspecified; Z68.36 Body mass index [BMI] 36.0-36.9, adult; Z71.3 Dietary counseling and surveillance; G89.29 Other chronic pain; J45.909 Unspecified asthma, uncomplicated; Z87.891 Personal history of nicotine dependence; N83.201 Unspecified ovarian cyst, right side
CPT/HCPCS: 00840; 44970; 36415; 74177; 80048; 81001; 84703; 85025; 88304; 96361; 96365; 96366; 96375; 96376; 99218; 99283; J7030; J7120; A4216; C1760; G0378; J2405

== ENCOUNTER → 2018-06-14 15:09 | Outpatient (CLI) | payer MEDICARE, SELFPAY ==
[2018-06-14 14:21] VITALS: BMI 36.5
[2018-06-14 17:57] LABS: Absolute Neutrophil Count 3.3 X10^3/uL (2.0-7.7); Basophil# 0.02 X10^3/uL; Basophil% 0.3 % (0-1); Eosinophil# 0.03 X10^3/uL; Eosinophils% 0.4 % (0-5); Hematocrit 37.2 % (37-47); Hemoglobin 12.8 g/dl (12.0-15.0); Lymphocyte % 44.9 % (19-41); Mean Corp Hgb Conc 34.4 g/gl (32-36); Mean Corpuscular Hgb 29.9 pg (27.0-32.0); Mean Corpuscular Volume 86.9 fL (81-99); Mean Platelet Vol. 9.3 fl (6.2-12.0); Monocyte# 0.74 X10^3/uL; Monocyte% 10.1 % (0-10); Neutrophil # 3.25 X10^3/uL (2.7-7.7); Neutrophil % 44.2 % (47-70); Platelet Count 414 K/mm3 (150-450); RBC Distribution Width CV 12.7 % (11.6-14.6); RBC Distribution Width SD 38.9 fl (35.1-43.9); Red Blood Count 4.28 M/mm3 (4.2-5.4); White Blood Count 7.4 K/mm3 (4.4-11.0)
[2018-06-14 18:01] LABS: POSITIVE COUNT NO; POSITIVE DIFFERENTIAL NO; POSITIVE MORPHOLOGY NO
[2018-06-14 18:10] LABS: Vitamin D,25 Hydroxy 16.3 ng/mL (29.95-100.01)
[2018-06-14 18:32] LABS: Anion Gap 9 (5-15); BUN 14 mg/dL (7-18); BUN/Creat Ratio 16.8 RATIO (10-20); Calcium,Total 9.3 mg/dL (8.5-10.1); Chloride 102 mmol/L (98-107); Creatinine, Serum 0.83 mg/dL (0.55-1.02); EST Glomerular Filtration Rate 87 mL/min (>60); Est Glom Filt Rate - Afr Amer 105 mL/min (>60); Glucose 82 mg/dL (74-106); Potassium 3.8 mmol/L (3.5-5.1); Sodium Level 140 mmol/L (136-145); T4 Free Direct 1.06 ng/dL (0.76-1.46)
--- OUTSIDE RECORDS SUMMARY | 2018-08-16 17:43 | XMS RPT_ITS ---
:1990 Author Organization [place] Support Name Relationship Address Phone SOHAMLIMacie Unavailable [address] + [place] [address] BERNSTEIN, SIERRA Unavailable [address] + [place] [address] BERNSTEINYULIANA Unavailable Unavailable + D Unavailable Unavailable Unavailable BERNSTEIN, SIERRA Unavailable [address] + [place] [address] D Unavailable Unavailable Unavailable BERNSTEIN, SIERRA Unavailable [address] + [place] [address] D Unavailable Unavailable Unavailable BERNSTEIN, SIERRA Unavailable [address] + [place] [address] D Unavailable Unavailable Unavailable BERNSTEIN, SIERRA Unavailable [address] + [place] [address] D Unavailable Unavailable Unavailable BERNSTEIN, SIERRA Unavailable [address] + [place] [address] D Unavailable Unavailable Unavailable BERNSTEIN, SIERRA Unavailable [address] + [place] [address] D Unavailable Unavailable Unavailable BERNSTEIN, SIERRA Unavailable [address] + [place] [address] D Unavailable Unavailable Unavailable BERNSTEIN, SIERRA Unavailable [address] + [place] [address] D Unavailable Unavailable Unavailable BERNSTEIN, SIERRA Unavailable [address] + [place] [address] D Unavailable Unavailable Unavailable BERNSTEIN, SIERRA Unavailable [address] + [place] [address] D Unavailable Unavailable Unavailable BERNSTEIN, SIERRA Unavailable [address] + [place] [address] D Unavailable Unavailable Unavailable BERNSTEIN, SIERRA Unavailable [address] + [place] [address] D Unavailable Unavailable Unavailable BERNSTEIN, SIERRA Unavailable [address] + [place] [address] D Unavailable Unavailable Unavailable BERNSTEIN, SIERRA Unavailable [address] + [place] [address] D Unavailable Unavailable Unavailable BERNSTEIN, SIERRA Unavailable [address] + [place] [address] D Unavailable Unavailable Unavailable BERNSTEIN, SIERRA Unavailable [address] + [place] [address] D Unavailable Unavailable Unavailable BERNSTEIN, SIERRA Unavailable [address] [place] [address] RD + [place] [address] D Unavailable Unavailable Unavailable BERNSTEIN, SIERRA Unavailable [address] [place] [address] RD + [place] [address] D Unavailable Unavailable Unavailable BERNSTEIN, SIERRA Unavailable [address] + [place] [address] D Unavailable Unavailable Unavailable BERNSTEIN, SIERRA Unavailable [address] [place] [address] RD + [place] [address] D Unavailable Unavailable Unavailable BERNSTEIN, SIERRA Unavailable [address] + [place] [address] D Unavailable Unavailable Unavailable BERNSTEIN, SIERRA Unavailable [address] [place] [address] RD + [place] [address] D Unavailable Unavailable Unavailable BERNSTEIN, SIERRA Unavailable [address] [place] [address] RD + [place] [address] D Unavailable Unavailable Unavailable BERNSTEIN, SIERRA Unavailable [address] + [place] [address] D Unavailable Unavailable Unavailable BERNSTEIN, SIERRA Unavailable [address] + [place] [address] D Unavailable Unavailable Unavailable BERNSTEIN, SIERRA Unavailable [address] [place] [address] RD + [place] [address] D Unavailable Unavailable Unavailable BERNSTEIN, SIERRA Unavailable [address] + [place] [address] D Unavailable Unavailable Unavailable BERNSTEIN, SIERRA Unavailable [address] + [place] [address] D Unavailable Unavailable Unavailable BERNSTEIN, SIERRA Unavailable [address] + [place] [address] D Unavailable Unavailable Unavailable BERNSTEIN, SIERRA Unavailable [address] + [place] [address] D Unavailable Unavailable Unavailable BERNSTEIN, SIERRA Unavailable [address] + [place] [address] D Unavailable Unavailable Unavailable BERNSTEIN, SIERRA Unavailable [address] + [place] [address] Care Team Providers Name Role Phone ENEIDA ALLISON (CODIE) Attending Unavailable ENEIDA ALLISON (CODIE) [...] Esposito Attending Unavailable Oleghe, Efewongbe Referring Unavailable ChicamarisliCris Attending Unavailable Oleghe, Efewongbe Primary Care Unavailable Cris Olson Referring Unavailable Azucena Esposito Attending Unavailable Azucena Esposito Referring Unavailable Oleghe, Efewongbe Primary Care Unavailable Oleghe, Efewongbe Primary Care Unavailable Ami Koroma Attending Unavailable Oskar Evans MEAT CARVER-C Attending Unavailable Oleghe, Efewongbe Referring Unavailable Oleghe, Efewongbe Attending Unavailable Oleghe, Efewongbe Referring Unavailable Oleghe, Efewongbe Primary Care Unavailable Oleghe, Efewongbe Attending Unavailable Oleghe, Efewongbe Referring Unavailable Oleghe, Efewongbe Primary Care Unavailable Oleghe, Efewongbe Attending Unavailable Oleghe, Efewongbe Referring Unavailable Oleghe, Efewongbe Attending Unavailable Oleghe, Efewongbe Referring Unavailable Oleghe, Efewongbe Primary Care Unavailable GwendolynAfsaneh lazar Attending Unavailable Oleghe, Efewongbe Referring Unavailable Oleghe, Efewongbe Primary Care Unavailable Cris Olson Attending Unavailable Oleghe, Efewongbe Referring Unavailable GwendolynAfsaneh Attending Unavailable [place] Afsaneh Referring Unavailable Oleghe, Efewongbe Primary Care [...] Unavailable Oleghe, Efewongbe Referring Unavailable Oskar Evans MEAT CARVER-C Attending Unavailable Oleghe, Efewongbe Referring Unavailable Cris Olson Attending Unavailable Oleghe, Efewongbe Referring Unavailable Cris Olson Attending Unavailable Cris Olson Referring Unavailable Oleghe, Efewongbe Primary Care Unavailable Cris Olson Attending Unavailable Cris Olson Referring Unavailable Oleghe, Efewongbe Primary Care Unavailable Latoya Bingham Attending Unavailable Oskar Evans MEAT CARVER-C Attending Unavailable Oleghe, Efewongbe Referring Unavailable Cris Olson Attending Unavailable Cris Olson Referring Unavailable Oleghe, Efewongbe Primary Care Unavailable Oleghe, Efewongbe Primary Care Unavailable Keven Blanco Attending Unavailable Altaf Nascimento Attending Unavailable Oleghe, Efewongbe Referring Unavailable PROBLEMS PROBLEMS DATE TYPE CONDITION / CODE ATTENDING STATUS SOURCE 06/14/2018 Unknown L65.9 - Nonscarring Oleghe, Active [facility] hair loss, [facility] Community unspecified / Hospital L65.9(ICD-10) Repository 06/14/2018 Unknown E83.51 - Oleghe, Active [place] Hypocalcemia / [facility] E83.51(ICD-10) Hospital Repository 06/14/2018 Unknown D64.9 - Anemia, Oleghe, Active [facility] unspecified / [facility] D64.9(ICD-10) Hospital Repository 05/24/2018 Unknown N92.6 - Irregular Marcanthony, Active [facility] menstruation, [facility] unspecified / Hospital N92.6(ICD-10) Repository 05/24/2018 Unknown Z31.81 - Encounter Marcanthony, Active [place] 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 / Repository Z31.81(ICD-10) 05/24/2018 Unknown 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, 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 / Hospital N97.8(ICD-10) Repository 05/24/2018 Unknown N94.6 - Marcanthony, Active [place] Dysmenorrhea, [facility] unspecified / Hospital N94.6(ICD-10) Repository 05/24/2018 Unknown N83.201 - Marcanthony, Active [place] Unspecified ovarian [facility] cyst, right side / Hospital N83.201(ICD-10) Repository 05/08/2018 Unknown K35.80 - Unspecified Calabretta, Active [facility] acute appendicitis / [facility] K35.80(ICD-10) Hospital Repository 05/05/2018 Unknown R10.31 - Right lower Bean, Hunter Active [facility] quadrant pain / Community R10.31(ICD-10) Hospital Repository 03/29/2018 Unknown S73.101D - Chicorelli, Active [place] Unspecified sprain [facility] of right hip, Hospital subsequent encounter Repository / S73.101D(ICD-10) 02/28/2018 Unknown M25.551 - Pain in Chicorelli, Active [facility] right hip / [facility] M25.551(ICD-10) Hospital Repository 02/08/2018 Unknown F41.8 - Other Oleghe, Active [facility] specified anxiety [facility] disorders / Hospital F41.8(ICD-10) Repository 02/08/2018 Unknown M54.9 - Dorsalgia, Oleghe, Active [place] unspecified / [facility] M54.9(ICD-10) Hospital Repository 02/08/2018 Unknown G89.29 - Other Oleklebere, Active [place] chronic pain / [facility] G89.29(ICD-10) Hospital Repository 08/02/2017 Unknown N64.4 - Mastodynia / [place], Afsaneh Active [facility] N64.4(ICD-10) [facility] Repository 07/27/2017 Unknown E66.9 - Obesity, Olelance, Active [place] unspecified / ewongbe [facility] E66.9(ICD-10) Hospital Repository 07/29/2017 Unknown Z98.890 - Other Chicorelli, Active [place] specified [facility] postprocedural Hospital [facility] / Repository Z98.890(ICD-10) PROCEDURES PROCEDURES No Procedure Records FoundRESULTS RESULTS INTERNAL MEDICINE Observed: 06/19/2018 Status: F Source: [place] OFFICE VISIT 8:15 AM [facility] [address] [place] [address] [place] [address] OFFICE VISIT Date of Service: 06/14/18 MR#: [id number] Acct: [id number] Name: COLLIN APARICIO Rep #: [id number] : 1990 Provider: Juan Alfaro MD Age/Sex: 28/F Location: [facility] Status: Signed Intake Vital Signs06/14/18 Body Mass Index (BMI) 36.5 06/14/18 Height 5 ft 2 in Intake Visit Reasons: FATIGUE HEADACHES Chief Complaint: fatigue, feeling unwell and hair loss Is patient in pain?: No Allergies naproxen Adverse Reaction (Verified 05/24/18 14:55) Other varenicline tartrate [From Chantix] Adverse Reaction (Verified 05/24/18 14:55) Other Medications cholecalciferol (vitamin D3) 50,000 unit capsule 50,000 unit PO QWEEK #8 cap 06/14/18 [Rx] Is last menstrual period known: Yes PFSH Medical History Acute appendicitis (Acute) Right [...] week seatbelt use: always additional social history: [employer]) Patient works at [employer] HPI Chief Complaint: fatigue, feeling unwell and hair loss Details: COLLIN APARICIO, is a 28yo F who presents to the office today for fatigue, hair loss and feeling of unwell. This is said to have progressively worsening over the last couple of months. She denies nausea, vomiting or change in her bowel habit. She was managed about a month ago for an acute abdomen and is status post appendectomy. Investigations done during her hospital stay with mild anemia and hypocalcemia. She is also currently following up at [facility] due to worsening right hip pain. MRI done suggestive of a right labral tear. ROS Const Constitutional: Positive for fatigue, weakness and headache(s); no weight change, body ache, chills, sleep problems, fever(s), change in appetite, snoring, frequent falls or excessive sweating Eyes Eyes: No change in vision, eye pain or light sensitivity ENT ENT: Positive for headache(s); no abnormal hearing, ear pain, tinnitus, nasal congestion, [...] of motion, numbness or tingling Skin Skin: Positive for hair loss; no redness, dry skin, itching, lesions, wounds or rash Neuro Neurology: Positive for weakness and headache(s); no frequent falls, abnormal hearing, abnormal walking, numbness, [...] nodes Exam Const General: cooperative, no acute distress, well developed Orientation: alert, awake, oriented x3 [facility] Head: atraumatic, normocephalic, normal to inspection Ears: hearing grossly normal bilaterally Resp Effort [...] Mental Status: mental status grossly normal Mood: congruent mood Affect: normal affect Assessment AND Plan 1. Malaise and fatigue R53.81; R53.83 Plan Reports fatigue, hypersomnolence and feeling of unwell which has been ongoing for months. No known history of sleep apnea. No other constitutional symptoms. Labs ordered as above. If no significant abnormality, will consider sleep study. 2. Nonscarring hair loss L65.9 Plan Said to have been ongoing for about 6 months. Worsening. Pull test positive. Thyroid function study ordered. Follow-up with results. Orders Orders: 3. Hypocalcemia E83.51 Plan Noted during last hospital stay. Calcium of 8. Vitamin D levels ordered. Follow-up with results. Orders Orders: 4. Anemia D64.9 Plan Again noted during last hospital stay. Patient reports heavy periods and now reports a history of fatigue. CBC ordered. Follow-up with results. Orders Orders: 5. Right hip pain M25.551 Plan MRI suggestive of labral tear. Currently following up at [facility] and surgery has been recommended. Continue plan as per orthopedics. This note was generated with [employer] dictation software. It may contain incorrect words, spelling, and punctuation that were not noted in checking the note before signing. Coding Level of Care Code Off vis,est,level 4 Diagnoses Malaise and fatigue R53.81; R53.83 Nonscarring hair loss L65.9 Hypocalcemia E83.51 Anemia D64.9 Right hip pain M25.551 06/19/18 0815 <Electronically signed by Juan Alfaro MD> Date Juan Alfaro MD Cosigner Signature: Date (if applicable) CC: CBC W/DIFF, AUTOMATED Collected: 06/14/2018 Status: F Source: [place] 3:19 PM [facility] REPOSITORY TYPE CODE TESTS RESULT OUT OF RANGE REFERENCE UNITS LAB L100.1000 4.4-11.0 K/mm3 Normal WBC 7.4 LAB L100.1200 4.2-5.4 M/mm3 Normal RBC 4.28 LAB L100.1300 12.0-15.0 g/dl Normal HGB 12.8 LAB L100.1400 37-47 % Normal HCT 37.2 LAB L100.1500 81-99 fL Normal MCV 86.9 LAB L100.1600 27.0-32.0 pg Normal MCH 29.9 LAB L100.1700 32-36 g/gl Normal MCHC 34.4 LAB L100.1810 11.6-14.6 % Normal RDW CV 12.7 LAB L100.1820 35.1-43.9 fl Normal RDW SD 38.9 LAB L100.1900 150-450 K/mm3 Normal PLT 414 LAB L100.2000 6.2-12.0 fl Normal MPV 9.3 LAB L100.2100 47-70 % Low NEUT% 44.2 LAB L100.2200 19-41 % High LY% 44.9 LAB L100.2300 0-10 % High MONO% 10.1 LAB L100.2400 0-5 % Normal EO% 0.4 LAB L100.2500 0-1 % Normal BASO% 0.3 LAB L100.2550 0.0-0.9 % Normal IM GRAN % 0.100 Result Comment: IG% - Immature Granulocytes (promyelocytes, myelocytes and metamyelocytes) > 1% indicates that a LEFT SHIFT is Present. LAB L100.2620 2.0-7.7 X10 3/uL Normal Absolute Neut 3.3 LAB L100.2720 0.83-4.51 X10 3/ul Normal Absolute Lymph 3.30 Performed By: #### L100.0100 #### [facility] [address] [place], [place], [address] VITAMIN D,25 HYDROXY Collected: 06/14/2018 Status: F Source: [place] 3:19 PM [facility] REPOSITORY TYPE CODE TESTS RESULT OUT OF REFERENCE UNITS RANGE LAB L506.1000 29.95-100.01 ng/mL Low Vitamin D 16.3 25-OH Result Comment: Vitamin D 25(OH) Status Range Deficiency <20 ng/mL (50nmol/L) Insuffciency 20 - 30 ng/mL (50 - 75 nmol/L) Sufficiency 30 - 100 ng/mL (75 - 250 nmol/L) Toxicity >100 ng/mL (>250 nmol/L) Performed By: #### L506.1000 #### [facility] [address] [place], [address] BASIC METABOLIC Collected: 06/14/2018 Status: F Source: [place] PROFILE (BMP) 3:19 PM [facility] REPOSITORY TYPE CODE TESTS RESULT OUT OF RANGE REFERENCE UNITS LAB L501.0100 74-106 mg/dL Normal GLU 82 Result Comment: Please note revised GLUCOSE reference range effective 2017. LAB L501.1000 7-18 mg/dL Normal BUN 14 LAB L501.1100 0.55-1.02 mg/dL Normal CREAT,SERUM 0.83 Result Comment: The validity of the calculated GFR AND GFRAA in patients over 70 years has not been determined. Clinical correlation is essential. LAB L501.1110 >60 mL/min Normal EST GFR 87 Result Comment: Non- GFR Calc LAB L501.1115 >60 mL/min Normal EST GFR - AA 105 Result Comment: GFR Calc LAB L501.1300 10-20 RATIO Normal BUN/CRE 16.8 LAB L501.2200 8.5-10.1 mg/dL CA Normal 9.3 LAB L501.5300 136-145 mmol/L NA Normal 140 LAB L501.5600 3.5-5.1 mmol/L K Normal 3.8 LAB L501.5900 98-107 mmol/L CL Normal 102 LAB L501.6100 21.0-32.0 mmol/L Normal CO2 29.0 LAB L501.6200 5-15 Normal GAP 9 Performed By: #### L500.2500, L501.9520, L506.0400 #### [facility] [address] [place], [place], [id number] THYROID STIM HORMONE Collected: 06/14/2018 Status: F Source: [place] ([place]) 3:19 PM [facility] REPOSITORY TYPE CODE TESTS RESULT OUT OF RANGE REFERENCE UNITS LAB L501.9520 0.358-3.74 uIU/mL Normal TSH 1.10 Performed By: #### L500.2500, L501.9520, L506.0400 #### [facility] [address] [place], [place], [address] T4 FREE DIRECT Collected: 06/14/2018 Status: F Source: [place] 3:19 PM [facility] REPOSITORY TYPE CODE TESTS RESULT OUT OF RANGE REFERENCE UNITS LAB L506.0400 0.76-1.46 ng/dL Normal T4 FREE 1.06 DIRECT Performed By: #### L500.2500, L501.9520, L506.0400 #### [facility] [address] [place], [address] WELDER SETTER RESISTANCE MACHINE OFFICE VISIT Observed: 05/24/2018 Status: F Source: [place] REPORT 3:42 PM [facility] REPOSITORY [facility] [address] [place] [address] OFFICE VISIT Date of Service: 05/24/18 MR#: [id number] Acct: [id number] Name: COLLIN APARICIO Rep #: [id number] : 1990 Provider: Azucena Esposito MD Age/Sex: 28/F Location[facility] Status: Signed Intake Vital Signs05/24/18 Body Mass Index (BMI) 36.5 05/24/18 Height 5 ft 2 in 05/24/18 Weight: 196 lb 4 oz 05/24/18 Body Mass Index (BMI) 35.9 05/24/18 Blood Pressure 138/78 H Intake Visit Reasons: FU on cyst on ovary/Infertility issues Chief Complaint: Ovarian cyst/ Infertility Consult Account Leader Required: No Is patient in pain?: No [...] use: always additional social history: cici Meeks ([employer]) Patient works at [employer] HPI FU on cyst on ovary/Infertility issues: Details: [...] abortions Past Pregnancies Del. DatName GA/WeeksOutcome Route [facility] LgAnestheINel LocaProviderFOB e ht en nh tn 04/19/1292Iudcfekd08 live birC-sectio Female [facility] fulkathleen d l term ROS Const Constitutional: Denies [...] Nutritional Appearance: average body habitus Orientation: alert HENMT Head: normal to inspection, normocephalic Ears: hearing [...] Dysmenorrhea N94.6 Right ovarian cyst N83.201 05/24/18 1542 <Electronically signed by Azucena Esposito MD> Date Azucena Esposito MD Cosigner Signature: Date (if applicable) CC: SURGERY VISIT REPORT Observed: 05/19/2018 Status: F Source: [place] 10:54 AM [facility] REPOSITORY [facility] [address] [place] [address]. [address] [place] [address] OFFICE VISIT Date of Service: 05/19/18 MR#: [id number] Acct: [id number] Name: COLLIN APARICIO Rep #: [id number] : 1990 Provider: Jd Jennings MD Age/Sex: 28/F Location: [facility] Status: Signed Intake Intake Visit Reasons: f/u appy 05/06/2018 Chief Complaint: abdominal pain Account Leader Required: No Is patient in pain?: No [...] diet as tolerated Jd Jennings MD Pager: [facility] [address] [place] [address], [address] [place] [address] Office: Coding Level of Care Code Global Post Op Diagnoses Acute appendicitis, unspecified acute appendicitis type K35.80 Acute appendicitis type: unspecified acute appendicitis type 05/19/18 1054 <Electronically signed by Jd Jnenings MD> Date Jd Jennings MD Cosigner Signature: Date (if applicable) CC: Juan Alfaro MD DISCHARGE SUMMARY Observed: 05/07/2018 Status: F Source: [place] 10:09 AM [facility] REPOSITORY [facility] Medical Records Department [address] [place] [address] Discharge Summary 05/06/18 1054 MR#: [id number] Acct: [id number] Name: COLLIN APARICIO Rep #: [id number] : 1990 28 From: Jd Jennings MD PCP: Juan Alfaro MD Status: DIS ENRIQUE Y Location: [place] [address] Discharge Date and Diagnosis Date of Admission: [...] Hector Biswas DO at 21:29 EST Tel [phone], Service support , Operations: appendectomy Procedures: None [...] - 325 mg PO PRN PRN 05/06/18 Following Prescrptions Were Given to Patient: Oxycodone HCl/Acetaminophen [Percocet 5/325] 1 - 2 tablet PO Q4H PRN PRN 7 Days #30 tablet PRN Reason: Pain Primary Care Physician: Juan Alfaro MD [Primary Care Provider] - Please Follow Up With: Jd Jennings MD When: Please call to schedule 2 week follow up appointment. [phone] Medical Necessity - Tobacco Use Smoking Status: Former smoker Meaningful Use Info Meaningful Use Diagnoses (Choose all that apply): None applicable 05/07/18 1009 <Electronically signed by Jd Jennings MD> Date Jd Jennings MD Cosigner Signature (if applicable): Date CC: Jd Jennings MD; Juan Alfaro MD Signed DISCHARGE INSTRUCTION Observed: 05/06/2018 Status: F Source: [place] 10:52 AM [facility] REPOSITORY [facility] Medical Records Department [address] [place] [address] Instructions for Home/Discharge Instructions 05/06/18 1051 MR#: [id number] Acct: [id number] Name: COLLIN APARICIO Rep #: [id number] : 1990 28 From: Jd Jennings MD [...] to schedule 2 week follow up appointment. [phone] 05/06/18 1052 <Electronically signed by Jd Jennings MD> Date Jd Jennings MD CC: Juan Alfaro MD OPERATIVE REPORT Observed: 05/06/2018 Status: F Source: [place] 10:51 AM [facility] REPOSITORY [facility] Medical Records Department [address] [place] [address] Operative Report 05/06/18 1049 MR#: [id number] Acct: [id number] Name: COLLIN APARICIO Rep #: [id number] : 1990 28 From: Jd Jennings MD PCP: Juan Alfaro MD Status: ADM ENRIQUE Y Location: [place] [address] Problem List (1) Acute appendicitis Status: Acute [...] fascia was closed with an 0 Vicryl [id number] suture. The incisions were then irrigated with [...] 05/06/2018 Status: F Source: [place] 10:00 AM [facility] REPOSITORY Patient: COLLIN APARICIO : 1990 () Acct Num: [id number] Phys: Michaela JUAREZ,Jd Unit Num: [id number] Loc: MS2 CA934-6 Specimen: [id number] Received: 05/08/1840 Spec Type: APPENDIX TISSUES 1 TISSUES: Appendix, NOS GROSS DESCRIPTION Received is one container labeled with the patient's name and designated appendix. The specimen consists of a vermiform appendix measuring 6 cm in length and 1 cm in average diameter. No gross perforations are present. Serial sections reveal an obliterated lumen. Card Decorator sections are submitted in one cassette. / AM:myriam 05/08/18 TC:2 CPT: 95762 HEADER OPERATION: Laparoscopic, appendectomy PRE-OP DIAGNOSIS: Acute appendicitis TISSUE SUBMITTED: Appendix MICROSCOPIC DESCRIPTION Slides are reviewed. MICROSCOPIC DIAGNOSIS Appendix, appendectomy: Acute appendicitis. Acute serositis. AM:myriam 05/09/18 Signed Morgan Rolon, DO 05/09/18 <signature on file> Performed By: #### JOHAN #### [facility] [address] [place], [address] CBC W/DIFF, AUTOMATED Collected: 05/06/2018 Status: F Source: [place] 6:40 AM [facility] REPOSITORY TYPE CODE TESTS RESULT OUT OF [...] Lymph 1.84 Performed By: #### L100.0100 #### [facility] [address] [place], [address] BASIC METABOLIC Collected: 05/06/2018 Status: F Source: [place] PROFILE (BMP) 6:40 AM [facility] REPOSITORY TYPE CODE TESTS RESULT OUT OF [...] Normal 8 Performed By: #### L500.2500 #### [facility] [address] [place], [address] EMERGENCY DEPARTMENT Observed: 05/06/2018 Status: F Source: [place] SUMMARY 12:05 AM [facility] REPOSITORY [facility] Medical Records Department [address] [place] [address] Emergency Department Summary 05/05/18 2224 MR#: [id number] Acct: [id number] Name: COLLIN APARICIO Rep #: [id number] : 1990 28 From: Es Alvarado MD [...] ovarian cyst This note was generated with [employer] dictation software. It may contain incorrect words, [...] problems, contact your Primary Care Provider. Call [facility] ([phone]) or report to the closest Emergency Room. Call 911 if necessary. 05/06/18 0005 <Electronically signed by Es Alvarado MD> Date Es Alvarado MD Cosigner Signature (If Indicated): Date CC: Juan Alfaro MD HISTORY AND PHYSICAL Observed: 05/05/2018 Status: F Source: DIXON EXAM 10:29 PM [facility] REPOSITORY [facility] Medical Records Department [address] [place] [address] History and Physical 05/05/184 MR#: [id number] Acct: [id number] Name: COLLIN APARICIO Rep #: [id number] : 1990 28 From: Jd Jennings MD [...] (Auto) Neut % (Auto) Lymph % (Auto) [place] % (Auto) Clinical Impression(s) from Imaging Studies Abdomen/Pelvis CT 05/05/18 18:43 IMPRESSION: Borderline size appendix requiring clinical correlation. Right adnexal cystic nodule. Nonobstructing renal calculi bilaterally. Electronically Signed: Hector Biswas DO at 21:29 EST Tel [phone], Service support , Assessment/Plan All Active Problems [...] in the morning. Jd Jennings MD Pager: [facility] [address] [place] [address], [address] [place] [address] Office: 05/05/182228 <Electronically signed by Jd Jennings MD> Date Jd Jennings MD Cosigner Signature: Date (if applicable) CC: Jd Jennings MD; Juan Alfaro MD Signed URINALYSIS, COMPLETE Collected: 05/05/2018 Status: F Source: ASH 7:30 PM [facility] REPOSITORY Order Comment: How was Urine Obtained? [...] YEAST-URINE RARE Performed By: #### L400.0001 #### [facility] [address] [place], [address] CBC W/DIFF, AUTOMATED Collected: 05/05/2018 Status: F Source: DIXON 7:05 PM [facility] REPOSITORY TYPE CODE TESTS RESULT OUT OF [...] Lymph 2.79 Performed By: #### L100.0100 #### [facility] [address] [facility] [place], [place], [address] BASIC METABOLIC Collected: 05/05/2018 Status: F Source: DIXON PROFILE (BMP) 7:05 PM [facility] REPOSITORY TYPE CODE TESTS RESULT OUT OF [...] Normal 8 Performed By: #### L500.2500 #### [facility] [address] [facility] [place], [place], [address] ,SERUM,HCG QUALI. Collected: Status: F Source: DIXON 05/05/2018 7:05 PM [facility] REPOSITORY TYPE CODE TESTS RESULT OUT OF REFERENCE UNITS RANGE LAB L700.7000 0-9 Nonpreg Negative Normal HCGSQUAL NEGATIVE LAB L700.6700 =>Qualitative mIU/mL Normal HCG Qual < 1 triggr Performed By: #### L700.6800 #### [facility] [address] [place], [address] ABDOMEN/PELVIS WITH Observed: 05/05/2018 Status: F Source: DIXON CONTRAST 6:45 PM [facility] REPOSITORY [facility] Imaging Services [address] [place] [address] Abdomen/Pelvis WITH Contrast MR#: [id number] Acct: [id number] Name: COLLIN APARICIO Rep #: [id number] : 1990 F 28 From: Hector Biswas DO PCP: Juan Alfaro MD Status: REG ER Study: Abdomen/Pelvis WITH Contrast Date of Exam: 05/05/18 Exam# [id number] Ordering Dr: Es Alvarado MD STUDY: CT [...] Hector Biswas DO at 21:29 EST Tel [phone], Service support , CC: Juan Alfaro MD; Es Alvarado MD Correctional Officer Sergeant: Signed URGENT CARE VISIT Observed: 05/05/2018 Status: F Source: DIXON REPORT 5:42 PM [facility] REPOSITORY [facility] [address] [place] [address] [address] [place] [address] OFFICE VISIT Date of Service: 05/05/18 MR#: [id number] Acct: [id number] Name: COLLIN APARICIO Rep #: [id number] : 1990 Provider: Hunter LEON Age/Sex: 28/F Location[facility] Status: Signed Intake Vital Signs05/05/18 Body Mass Index (BMI) 36.2 05/05/18 Height 5 ft 1 in 05/05/18 Weight: 192 lb 05/05/18 Body Mass Index (BMI) 36.2 05/05/18 Blood Pressure 122/80 H Intake Visit Reasons: ABDOMINAL PAIN Chief Complaint: ABDOMINAL PAIN Account Leader Required: No Accompanied by: CHILD Is patient in pain?: Yes (ABDOMINAL) Allergies naproxen Adverse Reaction (Verified 05/05/18 17:08) Other varenicline tartrate [From Chantix] Adverse Reaction (Verified 05/05/18 17:08) Other Medications NK 04/12/18 [History Confirmed 05/05/18] [facility] Medical History Scoliosis (Chronic) IBS (irritable bowel [...] use: always additional social history: cici Constantino ([employer]) Patient is unemployed HPI HPI [...] fatigue Exam Const General: cooperative, healthy appearing [facility] Head: normocephalic, atraumatic Ears: hearing grossly [...] patient has been advised to report to [facility] ED for further evaluation and treatment. Patient [...] ORTHOPEDIC VISIT Observed: 04/24/2018 Status: F Source: DIXON REPORT 12:10 PM [facility] REPOSITORY [facility] Orthopaedics AND Sports Medicine [address] [place] [address] OFFICE VISIT Date of Service: 04/21/18 MR#: [id number] Acct: [id number] Name: COLLIN APARICIO Kathleen Rep #: [id number] : 1990 Provider: CAROLYN Nascimento Age/Sex: 27/F Location[place] [facility] Status: Signed Intake Vital Signs04/24/18 Body Mass [...] use: always additional social history: cici Meeks ([employer]) Patient is unemployed HPI RIGHT HIP: [...] She states her PT was not helpful. KYLE Quiñones Reports as per HPI, Reports joint pain, [...] EMERGENCY DEPARTMENT Observed: 04/12/2018 Status: F Source: ASH SUMMARY 10:57 PM [facility] REPOSITORY [facility] Medical Records Department [address] [place] [address] Emergency Department Summary 04/12/18 1914 MR#: [id number] Acct: [id number] Name: COLLIN APARICIO Rep #: [id number] : 1990 27 From: Keven Blanco MD [...] by MRI This note was generated with Dragon dictation software. It may contain incorrect words, [...] your Primary Care Provider. Call [facility] ([phone]) or report to the closest Emergency Room. Call 911 if necessary. 04/12/182256 <Electronically signed by Keven Blanco MD> Date Keven Blanco MD Cosigner Signature (If Indicated): Date CC: Juan Alfaro MD DISCHARGE INSTRUCTION Observed: 04/12/2018 Status: Source: DIXON 10:57 PM [facility] REPOSIT[facility] Medical Records Department [address] [place] [address] Discharge Instruction 04/12/181916 MR#: [id number] Acct: [id number] Name: COLLIN APARICIO Rep #: [id number] : 1990 27 From: Keven Blanco MD [...] your Primary Care Provider. Call [facility] ([phone]) or report to the closest Emergency Room. Call 911 if necessary. 04/12/18 7315 <Electronically signed by Keven Blanco MD> Date Keven Blanco MD Cosigner Signature (If Indicated): Date CC: Juan Alfaro MD LOWER EXT/JT ONLY/W Observed: 04/10/2018 Status: F Source: ASH CONTRAST 10:10 AM [facility] REPOSIT[facility] Imaging Services [address] [place] [address] Lower Ext/Jt Only/W Contrast MR#: [id number] Acct: [id number] Name: COLLIN APARICIO Rep #: [id number] : 1990 F 27 From: Ovi Figueroa MD PCP: Juan Alfaro MD Status: REG CLI Study: Lower Ext/Jt Only/W Contrast Date of Exam: 04/10/18 Exam# [id number] Ordering Dr: Cris Olson DO STUDY: MR RIGHT HIP ARTHROGRAPHY REASON [...] CC: Cris Olson DO; Juan Alfaro MD Correctional Officer Sergeant: Signed ARTHROGRAM HIP W/ MRI Observed: 04/10/2018 Status: F Source: DIXON 10:06 AM [facility] REPOSIT[facility] Imaging Services [address] [place] [address] Arthrogram Hip w/ MRI MR#: [id number] Acct: [id number] Name: COLLIN APARICIO Rep #: [id number] : 1990 F 27 From: Chuck Yi MD PCP: Juan Alfaro MD Status: REG CLI Study: Arthrogram Hip w/ MRI Date of Exam: 04/10/18 Exam# [id number] Ordering Dr: Cris Olson DO CLINICAL HISTORY: [...] Chuck Yi MD at 12:39 EST Tel [phone], Service support , CC: Cris Olson DO; Juan Alfaro MD Correctional Officer Sergeant: Signed INTERNAL MEDICINE Observed: 03/30/2018 Status: F Source: DIXON OFFICE VISIT 11:06 AM [facility] Internal Medicine [address] [place] [address] [place] [address] OFFICE VISIT Date of Service: 03/30/18 MR#: [id number] Acct: [id number] Name: COLLIN APARICIO Rep #: [id number] : 1990 Provider: Oskar Evans NP Age/Sex: 27/F Location[facility] Status: Signed Intake Vital Signs03/30/18 Height 5 [...] PRN #30 cap 03/30/18 [Rx Confirmed 03/30/18] ukwikjmp-ofbndfywe-iqomptlak 3.5 mg-10,000 unit/mL-1 % ear drops,susp 4 [...] week seatbelt use: always additional social history: mayelaayaanLeander Constantino ([employer]) Patient is unemployed HPI HPI Chief [...] she is taking Claritin- D and Robitussin zhmc-esx-kxsxjqn for the past 4 days with mild [...] oriented x3 Limitations: mental status not altered [facility] Head: normal to inspection Ears: TM's [...] this time. She may continue with her vswy-owt-zbuxtlt antihistamine. Jenelle called in for cough. Given [...] as previously scheduled or sooner if needed. Dragon disclaimer Plan Detail Other Medications New: albuterol sulfate HFA 90 mcg/actuation (Vento1 puff Inhalation Q6H PRN 8 grams 1RF shortn zeferino HFA) ess of breath or wheezing Coding Level of Care Code Off vis,est,level 3 Diagnoses URI (upper respiratory infection) J06.9 Right otitis externa H60.91 03/30/18 1106 <Electronically signed by Oskar BHAT> Date Oskar BHAT Cosigner Signature: Date (if applicable) CC: PT D/C SUMMARY (1) Observed: 03/29/2018 Status: F Source: ASH 10:38 AM [facility] REPOSITORY [facility] Physical Therapy [address] [place] [address] Fax REHABILITATION SERVICES DISCHARGE SUMMARY MR#: [id number] Acct: [id number] Name: COLLIN APARICIO Rep #: [id number] : 1990 27 From: Kenny Pedraza DPT Referring DrAni: Cris Olson DO Status: REG RCR Insurance: [facility] *IN NETWORK SELF PAY INSURANCE HP - [...] please feel free to call me at [phone]. Thank you for the referral of this patient. Sincerely, Kenny Pedraza <Electronically signed by Kenny Pedraza DPT> 03/29/18 1038 CC: Cris Olson DO; Juan Alfaro MD CLS Signed ORTHOPEDIC VISIT Observed: 03/20/2018 Status: F Source: ASH REPORT 12:06 PM [facility] REPOSITORY [facility] Orthopaedics AND Sports Medicine [address] [place] [address] OFFICE VISIT Date of Service: 02/28/18 MR#: [id number] Acct: [id number] Name: COLLIN APARICIO Rep #: [id number] : 1990 Provider: Cris Olson DO Age/Sex: 27/F Location: [facility] Status: Signed Intake Intake Visit Reasons: RIGHT [...] use: always additional social history: cici Meeks ([employer]) Patient is unemployed HPI RIGHT HIP: Details: [...] F Source: ASH - PT 5:50 AM [facility] REPOSITORY [facility] Therapy [facility] [address] [place] [address]. [address] [place] [address] Fax REHABILITATION SERVICES INITIAL EVALUATION MR#: [id number] Acct: [id number] Name: COLLIN APARICIO Rep #: [id number] : 1990 27 From: Kenny Pedraza DPT Referring Dr.: Cris Olson DO Status: REG R Insurance: [facility] *IN NETWORK SELF PAY INSURANCE Patient's Visit [...] pt recorded positive resutls for scour and saamntha tests. pt would benefit from PT in [...] to be FAXED BACK to us at [phone] for Medicare purposes. Please let me know if there are questions or concerns regarding this plan of care. Physician Signature: Date: <Electronically signed by Kenny Pedraza DPT> 03/08/18 0550 CC: Cris Alfaro MD CLS Signed For Medicare only, by signing this I certify the plan of care. Physicians Signature Date HIP, UNI W/ PELVIS Observed: 02/28/2018 Status: F Source: ASH 2-3 VIEWS 9:56 AM [facility] REPOSITORY [facility] Imaging Services [address] [place] [address] HIP, UNI W/ Pelvis 2-3 Views MR#: [id number] Acct: [id number] Name: COLLNI APARICIO Rep #: [id number] : 1990 F 27 From: Ovi Figueroa MD PCP: Juan Alfaro MD Status: REG CLI Study: HIP, UNI W/ Pelvis 2-3 Views Date of Exam: 02/28/18 Exam# [id number] Ordering Dr: Cris Olson DO STUDY: X-RAY [...] CC: Cris Olson DO; Juan Alfaro MD Correctional Officer Sergeant: Signed INTERNAL MEDICINE Observed: 02/14/2018 Status: F Source: DIXON OFFICE VISIT 1:38 PM [facility] REPOSIT[facility] [address] [place] [address] [place] [address] OFFICE VISIT Date of Service: 02/14/18 MR#: [id number] Acct: [id number] Name: COLLIN APAIRCIO Rep #: [id number] : 1990 Provider: Oskar Evans NP Age/Sex: 27/F Location: [facility] Status: Signed Intake Vital Signs02/14/18 Height 5 [...] use: always additional social history: cici Constantino ([employer]) Patient is unemployed HPI HPI Chief Complaint: [...] lying down. She has not tried any eegf-yix-cozrldi's. She denies using omeprazole and states that [...] oriented x3 Limitations: mental status not altered [facility] Head: normal to inspection Ears: hearing grossly [...] F Source: ASH OFFICE VISIT 4:33 PM [facility] Internal Medicine [address] [place] [address] [place] [address] OFFICE VISIT Date of Service: 01/10/18 MR#: [id number] Acct: [id number] Name: COLLIN APARICIO Rep #: [id number] : 1990 Provider: Juan Alfaro MD Age/Sex: 27/F Location: [facility] Status: Signed Intake Vital Signs01/10/18 Height 5 [...] Appearance: obese Orientation: alert, awake, oriented x3 [facility] Head: atraumatic, normocephalic Ears: hearing grossly [...] current medications. This note was generated with Simmeryation software. It may contain incorrect words, spelling, [...] F Source: ASH OFFICE VISIT 9:10 AM [facility] Internal Medicine [address] [place] [address] [place] [address] OFFICE VISIT Date of Service: 12/06/17 MR#: [id number] Acct: [id number] Name: COLLIN APARICIO Rep #: [id number] : 1990 Provider: Juan Alfaro MD Age/Sex: 27/F Location: [facility] Status: Signed Intake Vital Signs12/06/17 Height 5 [...] QDAY #60 cap 10/19/17 [Rx Confirmed 12/06/17] [facility] Medical History Scoliosis (Chronic) IBS (irritable [...] week seatbelt use: always additional social history: jessica- Constantino ([employer]) Patient is unemployed HPI HPI [...] Appearance: obese Orientation: alert, awake, oriented x3 [facility] Head: atraumatic, normocephalic Ears: hearing grossly normal [...] current management. This note was generated with Simmeryation software. It may contain incorrect words, spelling, [...] F Source: ASH OFFICE VISIT 1:49 PM [facility] Internal Medicine [address] [place] [address] [place] [address] OFFICE VISIT Date of Service: 10/19/17 MR#: [id number] Acct: [id number] Name: COLLIN APARICIO Rep #: [id number] : 1990 Provider: Juan Alfaro MD Age/Sex: 27/F Location: [facility] Status: Signed Intake Vital Signs10/19/17 Height 5 [...] always additional social history: cici Meeks ([employer]) Patient is unemployed Questionnaire Depression Screen PHQ-2/9 [...] and colleagues, with an educational teri from [employer]. Scoring: Total Score Depression Severity Action 1-4 [...] Appearance: obese Orientation: alert, awake, oriented x3 [facility] Head: atraumatic, normocephalic Ears: hearing grossly [...] with results. This note was generated with Simmeryation software. It may contain incorrect words, spelling, [...] CC: ,SERUM,HCG QUALI. Collected: Status: F Source: DIXON 10/19/2017 4:53 PM [facility] REPOSITORY TYPE CODE TESTS RESULT OUT OF REFERENCE UNITS RANGE LAB L700.7000 0-9 Nonpreg Negative Normal HCGSQUAL NEGATIVE LAB L700.6700 =>Qualitative mIU/mL Normal HCG Qual < 1 triggr Performed By: #### L700.6800 #### [facility] Laboratory [address] [place], [address] INTERNAL MEDICINE Observed: 09/09/2017 Status: F Source: DIXON OFFICE VISIT 8:28 AM [facility] REPOSIT[facility] [address] [place] [address] [place] [address] OFFICE VISIT Date of Service: 09/05/17 MR#: [id number] Acct: [id number] Name: COLLIN APARICIO Rep #: [id number] : 1990 Provider: Juan Alfaro MD Age/Sex: 27/F Location: [facility] Status: Signed Intake Vital Signs09/05/17 Height 5 [...] use: always additional social history: cici Meeks ([employer]) Patient is unemployed HPI HPI Chief [...] Appearance: obese Orientation: alert, awake, oriented x3 [facility] Head: atraumatic, normocephalic Ears: hearing grossly normal [...] to podiatry. This note was generated with Simmeryation software. It may contain incorrect words, spelling, and punctuation that were not noted in checking the note before signing. Plan Detail Follow Up 3 Months Coding Level of Care Code Off vis,est,level 3 Diagnoses Depression with anxiety F41.8 Foot pain, bilateral M79.671; M79.672 09/09/17 0828 <Electronically signed by Juan Alfaro MD> Date Juan Alfaro MD Cosigner Signature: Date (if applicable) CC: JOSHUA Observed: 09/02/2017 Status: COMPLETED Source: KAUR 1:45 PM [facility] REPOSITORY Office Visit (DERMST) COLLIN APARICIO ([id number]) 1990 F Date Time Provider Department 09/02/17 1:45 PM ENEIDA ALLISON (CODIE) DERMST During your visit today, we recorded the [...] in 3 months and PRN Karol Marti APRN.FELTMAKER- training Eneida Allison PA-C Attending: Dr. Hughes The intake documentation for this note was completed by Milan Oconnor LPN acting as scribe for Eneida Allison PA-C, PA. September 02, 2017 1:38 PM. I agree with the Chief Complaint, ROS, and Past Histories independently gathered by the clinical cad application support specialist and the remaining scribed note accurately describes my personal service to the patient. Karol Marti APRN.FELTMAKER 09/02/2017 2:09 PM Signed Miradry Referring Provider: ENEIDA ALLISON) [[id number]] Allergies As of Date: 09/02/2017 Noted Allergy [...] left upper arm [D23.62] Acne scar [L73.0] Order(s):Bsmnmwafololc-Ly-Efwl-Minerals (MULTIPLE VITAMIN, WOMENS) tabTake 1 tablet by mouth once daily.Disp: Rfl: Prescriptions as of 09/02/2017 Sig: HSANRMOSZPHM-MG-KZPH-MINERALS* Take 1 tablet by mouth once d* [...] [K58.*INVALID FOR*01/07/2016 Other instructions from your clinician: Miradry Prescriptions ordered this encounter Disp Refills Start End LOMLJQCKTQCC-ZJ-DRHR-MINERALS TABLET 09/02/2017 Class: OTC Route: ORAL Sig: Take 1 tablet by mouth once daily. Cosign accepted by ENEIDA ALLISON PA-C[[id number]] on 09/02/2017 4:04 PM Disposition: Return in about 3 months (around 12/02/2017) for acne. Follow-up and Disposition History Recorded Encounter Status:Closed by ENEIDA ALLISON PA-C on 09/05/17 PROGRESS Observed: 09/02/2017 Status: COMPLETED Source: OLALLA 1:38 PM [facility] REPOSITORY O ID: [id number] Author: Eneida Pitts (Codie) CAROLYN Allison Service: (none) Author Type: Physician Street Light Inspector Type: Progress Notes Filed: 09/05/2017 9:16 AM [...] in 3 months and PRN Karol Marti APRN.FELTMAKER- training Eneida Allison PA-C Attending: Dr. Hughes The intake documentation for this note was completed by Milan Oconnor LPN acting as scribe for Eneida Allison PA-C, PA. September 02, 2017 1:38 PM. I agree with the Chief Complaint, ROS, and Past Histories independently gathered by the clinical cad application support specialist and the remaining scribed note accurately describes my personal service to the patient. DIAG MAMM W/CAD, Observed: 08/08/2017 Status: F Source: DIXON BILAT 2:01 PM [facility] REPOSITORY [facility] Imaging Services [address] [place] [address] DIAG MAMM W/CAD, BILAT MR#: [id number] Acct: [id number] Name: COLLIN APARICIO Rep #: [id number] : 1990 F 27 From: Chuck Yi MD PCP: Juan Alfaro MD Status: REG CLI Study: DIAG MAMM W/CAD, BILAT Date of Exam: 08/08/17 Exam# [id number] Ordering Dr: Afsaneh Snow MEAT CARVER-C ADDENDUM by Chuck Yi MD on 08/09/17 at 1503 HPBI/DIAG MAMM W/CAD, BILAT 08/09/17 1510 Date cc: EVAN Snow; Jaun Alfaro MD * Signed ADDENDUM by Chuck Yi MD on 08/09/17 at 1503 ADDENDUM This is an addendum report. Prior outside examinations were made available for comparison. Comparison is made with prior study of July 29, 2010. There has been essentially no change. Electronically Signed: Chuck Yi MD at 15:03 EDT Tel [phone], Service support , 08/09/17 1503 Date cc: EVAN Snow; Juan Alfaro MD [...] other significant abnormalities are identified. HPBI/DIAG MAMM W/CAD, BILAT IMPRESSION: Negative diagnostic mammogram. With the [...] Chuck Yi MD at 15:36 EDT Tel [phone], Service support , CC: EVAN Snow; Juan Alfaro MD Correctional Officer Sergeant: Signed BREAST LIMITED Observed: 08/08/2017 Status: F Source: ASH UNILATERAL 1:57 PM [facility] REPOSITORY [facility] Imaging Services [address] [place] [address] Breast Limited Unilateral MR#: [id number] Acct: [id number] Name: COLLIN APARICIO Rep #: [id number] : 1990 F 27 From: Chuck Yi MD PCP: Juan Alfaro MD Status: REG CLI Study: Breast Limited Unilateral Date of Exam: 08/08/17 Exam# [id number] Ordering Dr: Afsaneh Snow MEAT CARVER-C STUDY: ULTRASOUND BREAST - RIGHT REASON FOR [...] Chuck Yi MD at 8:03 EDT Tel [phone], Service support , STUDY: ULTRASOUND BREAST - [...] Chuck Yi MD at 8:03 EDT Tel [phone], Service support , CC: EVAN Snow; Juan Alfaro MD Correctional Officer Sergeant: Signed WELDER SETTER RESISTANCE MACHINE OFFICE VISIT Observed: 08/02/2017 Status: F Source: ASH REPORT 10:20 AM [facility] Women's [address] [place] [address] OFFICE VISIT Date of Service: 08/02/17 MR#: [id number] Acct: [id number] Name: COLLIN APARICIO Rep #: [id number] : 1990 Provider: EVAN Snow Age/Sex: 27/F [facility] Status: Signed Intake Vital Signs08/02/17 Height 5 ft 1 in 08/02/17 Weight: 192 lb 6 oz 08/02/17 Body Mass Index (BMI) 36.3 08/02/17 Blood Pressure 94/61 Intake Visit Reasons: breast pain Chief Complaint: Breast Discomfort Account Leader Required: No Is patient in pain?: Yes Allergies naproxen Adverse Reaction (Verified 08/02/17 09:49) Other varenicline tartrate [From Chantix] Adverse Reaction (Verified 08/02/17 09:49) Other Is last menstrual period known: Yes Last Menstral Period: 07/01/17 Post menopausal: No Patient : No : No [facility] Medical History Scoliosis (Chronic) IBS (irritable bowel [...] use: always additional social history: cici Meeks ([employer]) Patient is unemployed HPI breast pain: Details: COLLIN APARICIO is a 27 year old who presents for bilateral breast tenderness X 2 months, worse prior to onset of menses. New for her in that she had bilateral breast reduction surgery at age 16 and has not had any breast/nipple sensation since then. LMP 07/01/17 History of male factor infertility, was seen in [place], told would need IVF and states can not afford to pursue further. Female Reproductive History Last Menstral Period: 07/01/17 Pregancy History 1 Elective abortions Hx Para 1 Spontaneous abortions Past Pregnancies Del. DatName GA/WeeksOutcome Route [facility] LocaProviderFOB e ht en ia tn 04/19/1230Rayeuibo84 live birC-sectio [facility] Chest Breast inspection: [...] <Electronically signed by Afsaneh BHAT> Date Afsaneh Snow MEAT CARVER-C Cosigner Signature: Date (if applicable) CC: INTERNAL MEDICINE Observed: 08/01/2017 Status: F Source: DIXON OFFICE VISIT 8:27 AM [facility] Internal Medicine [address] [place] [address] OFFICE VISIT Date of Service: 07/27/17 MR#: [id number] Acct: [id number] Name: COLLIN APARICIO Rep #: [id number] : 1990 Provider: Juan Alfaro MD Age/Sex: 27/F [facility] [facility] Status: Signed Intake Vital Signs07/27/17 Height 5 [...] 1 month. This note was generated with Simmeryation software. It may contain incorrect words, spelling, and punctuation that were not noted in checking the note before signing. Plan Detail Follow Up 1 Month Coding Level of Care Code Off vis,est,level 3 Diagnoses Obesity E66.9 Depression with anxiety F41.8 08/01/17 0827 <Electronically signed by Juan Alfaro MD> Date Juan Poole Signature: Date (if applicable) CC: PT D/C SUMMARY (1) Observed: 07/26/2017 Status: F Source: [place] 4:55 PM [facility] REPOSITORY [facility] Physical Therapy [facility] [address] [place] [address] Fax REHABILITATION SERVICES DISCHARGE SUMMARY MR#: [id number] Acct: [id number] Name: COLLIN APARICIO Rep #: [id number] : 1990 27 From: Kenny Pedraza DPT Referring Dr.: Cris Olson DO Status: REG RCR Insurance: [facility] *IN NETWORK SELF PAY INSURANCE [place] - [...] please feel free to call me at [phone]. Thank you for the referral of this patient. Sincerely, Kenny Pedraza <Electronically signed by Kenny Pedraza DPT> 07/26/17 3954 CC: Cris Olson DO; Juan Alfaro MD CLS Signed INTERNAL MEDICINE Observed: 07/14/2017 Status: F Source: DIXON OFFICE VISIT 6:45 PM [facility] Internal Medicine [address] [place] [address] OFFICE VISIT Date of Service: 07/13/17 MR#: [id number] Acct: [id number] Name: COLLIN APARICIO Rep #: [id number] : 1990 Provider: Juan Alfaro MD Age/Sex: 27/F Location: [facility] Status: Signed Intake Vital Signs07/13/17 Height 5 [...] Appearance: obese Orientation: alert, awake, oriented x3 HENMO Head: atraumatic, normocephalic Ears: hearing grossly normal [...] next visit. This note was generated with [employer] Inter[employer] dictation software. It may contain incorrect words, spelling, and punctuation that were not noted in checking the note before signing. Plan Detail Follow Up 2 Weeks Coding Level of Care Code Off vis,est,level 3 Diagnoses Depression with anxiety F41.8 Obesity E66.9 07/14/17 6975 <Electronically signed by Juan Alfaro MD> Date Juan Alfaro MD Cosigner Signature: Date (if applicable) CC: DISCHARGE INSTRUCTION Observed: 07/05/2017 Status: F Source: ASH 1:44 PM [facility] REPOSITORY [facility] Medical Records Department [address] [place] [address] Discharge Instruction 07/05/17 1343 MR#: [id number] Acct: [id number] Name: COLLIN APARICIO Rep #: [id number] : 1990 From: Ami Koroma DO PCP: Juan Alfaro [...] your Primary Care Provider. Call [facility] ([phone]) or report to the closest Emergency Room. Call 911 if necessary. 07/05/17 1344 <Electronically signed by Ami Koroma DO> Date Ami Koroma DO Cosigner Signature (If Indicated): Date CC: Juan Alfaro MD EMERGENCY DEPARTMENT Observed: 07/05/2017 Status: F Source: [place] SUMMARY 1:43 PM [facility] REPOSITORY [facility] Medical Records Department [address] [place] [address] Emergency Department Summary 07/05/17 1340 MR#: [id number] Acct: [id number] Name: COLLIN APARICIO Rep #: [id number] : 1990 From: Ami Koroma DO PCP: Juan Alfaro [...] Impression: [Influenza] This note was generated with Gr[employer] Interc[employer] dictation software. It may contain incorrect words, [...] problems, contact your Primary Care Provider. Call [facility] ([phone]) or report to the closest Emergency Room. Call 911 if necessary. 07/05/17 1343 <Electronically signed by Ami Koroma DO> Date Remus Ungur DO Cosigner Signature (If Indicated): Date CC: Juan Alfaro MD HCG TITER QUANT., Collected: 06/27/2017 Status: F Source: ASH SERUM 5:06 PM [facility] REPOSITORY TYPE CODE TESTS RESULT OUT OF RANGE REFERENCE UNITS LAB L700.8000 <9 non-preg mIU/mL Normal HCG < 1 QUANT. Performed By: #### L700.8000 #### [facility] Laboratory [address] [place], [address] ALLERGIES ALLERGIES DATE TYPE / CODE NAME / CODE REACTION SEVERITY SOURCE 05/24/2018 Drug varenicline Other Unknown [place] Allergy/416 tartrate/[id number] [facility] 369894([facility] 9(RXNORM) [facility] ED CT) Repository 05/24/2018 Drug naproxen/[id number] Other Unknown [place] Allergy/416 0(RXNORM) [facility] 283097([facility] ED CT) Repository 08/21/2010 DRUG NAPROXEN OTHER: SEE C [address] 985967([facility] Repository ED CT) 12/08/2009 DRUG VARENICLINE OTHER: SEE [address] 066603([facility] Repository ED CT) ENCOUNTERS ENCOUNTERS ADMIT/DISCHARGE ACCOUNT ADMITTING ENCOUNTER LOCATION SOURCE NUMBER CLASS 06/14/2018 [id number] Ambulatory [facility] ing:MTLAB Repository 06/14/2018/06/14/19 [id number] Ambulatory BMSBuilding:B [place] [address] [facility] Repository 05/24/2018/05/24/19 [id number] Ambulatory BMSBuilding:B [place] 19 MS.[facility] Repository 05/19/2018/05/19/20 [id number] Ambulatory BMSBuilding:B [place] 18 MS.[facility] Repository 05/05/2018/05/06/20 [id number] Michael[place], Ambulatory [place] [facility] ing:TU7Lsmr: Repository CP063Ass: 1 05/05/2018 [id number] Michaela, Ambulatory BMSBuilding:B [place].CF.Count includes the [facility] Hospital Repository 05/05/2018 [id number] Ambulatory BMSBuilding:B [place].CF.Count includes the [facility] Hospital Repository 05/05/2018/05/05/20 [id number] Ambulatory BMSBuilding:B [place] 18 MS.[facility] Hospital Repository 04/21/2018/04/21/20 [id number] Ambulatory BMSBuilding:B [place] 18 MS.[facility] Hospital Repository 04/12/2018/04/12/20 [id number] Emergency [address] Hospital ing:ED Repository 04/10/2018 [id number] Ambulatory [facility] Hospital ing:RAD Repository 03/30/2018/03/30/20 [id number] Ambulatory BMSBuilding:B [place] 18 MS.[facility] Repository 03/29/2018 [id number] Ambulatory BMSBuilding:B [place].[facility] Hospital Repository 03/20/2018/03/20/20 [id number] Ambulatory [address] Hospital ing:PT Repository 02/28/2018 [id number] Ambulatory [facility] Hospital ing:HPRAD Repository 02/28/2018/02/29/20 [id number] Ambulatory BMSBuilding:B [place] 18 MS.[facility] Hospital Repository 02/14/2018/02/15/20 [id number] Ambulatory BMSBuilding:B [place] 18 [facility] Repository 02/02/2018 [id number] Ambulatory BMSBuilding:B [place].[facility] Hospital Repository 01/10/2018/01/11/20 [id number] Ambulatory BMSBuilding:B [place] 18 MS.[facility] Repository 12/06/2017/12/07/19 [id number] Ambulatory BMSBuilding:B [place] 18 [facility] Repository 11/08/2017 [id number] Ambulatory BMSBuilding:B [place].[facility] Repository 10/19/2017 [id number] Ambulatory [facility] Hospital ing:MTLAB Repository 10/19/2017/10/20/19 [id number] Ambulatory BMSBuilding:B [place] 18 MS.[facility] Repository 09/05/2017/09/06/19 [id number] Ambulatory BMSBuilding:B [place] 18 [facility] Repository 09/02/2017/09/07/19 [id number] Ambulatory [address] Repository 08/17/2017 [id number] Ambulatory BMSBuilding:B [place].[facility] Repository 08/08/2017 [id number] Ambulatory [facility] Hospital ing:BI Repository 08/04/2017 [id number] Ambulatory BMSBuilding:B [place].[facility] Hospital Repository 08/02/2017/08/03/19 [id number] Ambulatory BMSBuilding:B [place] 18 [facility] Hospital Repository 07/27/2017/07/28/19 [id number] Ambulatory BMSBuilding:B [place] 18 [facility] Repository 07/26/2017/07/27/19 [id number] Ambulatory [place] Hospital ing:PT Repository 07/13/2017/07/13/19 [id number] Ambulatory BMSBuilding:B [place] 18 [facility] Repository 07/05/2017/07/05/19 [id number] Emergency [address] Hospital ing:ED Repository 06/27/2017 [id number] Ambulatory [facility] Hospital ing:LAB Repository PAYERS PAYERS ENCOUNTER GUARANTOR PAYER SUBSCRIBER SOURCE 06/14/2018 COLLIN [place] Primary COLLIN N [place] [id number] Insurance:[facility] TOPEDOB: [facility] *IN [facility] 7062-94-77[place]ML[place], [place] Number: Repository [address]Kjm: (429) [id number] [phone] () Date:7849-85-84RLFV CLAIMS DEPTPO [address] [place] [address]YS: 06/14/2018 Secondary NOT GIVENUNK [place] Insurance:SELF PAY [facility] Number: Effective Repository Date:2018-06-14 06/14/2018 COLLIN CELESTE Primary COLLIN [place] [id number] Insurance:[facility]ARE [facility] TOPEDOB: [place] [facility] 7322-33-66XJQRay[place], [place] Number: Repository [address]Jau: 330 [id number] [phone] (HP) Date:1289-89-09XWCX [place]S [address] [address]IQ: 06/14/2018 Secondary NOT GIVENUNK [place] Insurance:SELF PAY [facility] Number: Effective Repository Date:2018-06-12 05/24/2018 COLLIN CELESTE Primary COLLIN [place] [id number] Insurance:MYCARE CRSC TOPEDOB: [facility] *IN [facility] 4850-93-79EPTRay[place], [place] Number: Repository [address]Yal: 330 [id number] [phone] (HP) Date:2704-70-29CYBE [place]S [address] [address]FX: 05/24/2018 Secondary NOT GIVENUNK [place] Insurance:SELF PAY [facility] Number: Effective Repository Date:2018-05-24 05/19/2018 COLLIN CELESTE Primary COLLIN [place] [id number] Insurance:MYCARE CRSC TOPEDOB: Community [place] [facility] 2011-00-20[place] Number: Repository [address]Dtw: 330 [id number] [phone] (HP) Date:8015-99-28ZEWF [place]S [address] [address]AY: 05/19/2018 Secondary NOT GIVENUNK [place] Insurance:SELF PAY [facility] Number: Effective Repository Date:2018-05-17 05/05/2018 COLLIN CELESTE Primary COLLIN [place] [id number] Insurance:MYCARE [employer]SC TOPEDOB: Community [place] *IN [facility] 7434-31-95STFRay[place], [place] Number: Repository [address]Nic: 330 [id number] [phone] () Date:6798-91-53TXOX [place]S [address] [address]NP: 05/05/2018 Secondary NOT GIVENUNK [place] Insurance:SELF PAY [facility] Number: Effective Repository Date:2018-05-05 05/05/2018 COLLIN CELESTE Primary COLLIN CELESTE [place] [id number] Insurance:MYCARE CRSC TOPEDOB: Community [place] *IN [address], [place] Number: Repository [address]Njx: 330 [id number] [phone] () Date:4689-81-85JVVV [place]S [address] [address]PD: 05/05/2018 Secondary NOT GIVENUNK [place] Insurance:SELF PAY [facility] Number: Effective Repository Date:2018-05-05 05/05/2018 COLLIN CELESTE Primary COLLIN CELESTE [place] [id number] Insurance:MYCARE CRSC TOPEDOB: Community [place] *IN [facility] 6376-44-54QJCRay[place], [place] Number: Repository [address]Cxh: 330 [id number] [phone] () Date:1356-97-20IIHI [address]S [address] [address]PW: 05/05/2018 Secondary NOT GIVENUNK [place] Insurance:SELF PAY [facility] Number: Effective Repository Date:2018-05-05 05/05/2018 COLLIN N Primary COLLIN N [place] [id number] Insurance:MYCARE CRSC TOPEDOB: Community [place] *IN [facility] 2106-56-72XDORaymond, [place] Number: Repository [address]Vzc: 330 [id number] [phone] (HP) Date:7315-32-45CZEC CLAIMS [address], [place] [address]NP: 05/05/2018 Secondary NOT GIVENUNK [place] Insurance:SELF PAY [facility] Number: Effective Repository Date:2018-05-05 04/21/2018 COLLIN N Primary COLLIN N [place] [id number] Insurance:MYCARE CRSC TOPEDOB: [place] [facility] 2422-44-84SWARay[place], [place] Number: Repository [address]Fif: 330 [id number] [phone] (HP) Date:6674-58-56LJEA CLAIMS DEPTPO [address] [place] [address]ZL: 04/21/2018 Secondary NOT GIVENUNK [place] Insurance:SELF PAY [facility] Number: Effective Repository Date:2018-04-20 04/12/2018 COLLIN N Primary COLLIN N [place] [id number] Insurance:[facility]CARE CRSC TOPEDOB: [facility] *[place] [facility] 8949-33-58UKXRay[place], [place] Number: Repository [address]Cqa: 330 [id number] [phone] (HP) Date:0458-59-43LBZJ CLAIMS [address] [place] [address]CQ: 04/12/2018 Secondary NOT GIVENUNK [place] Insurance:SELF PAY [facility] Number: Effective Repository Date:2018-04-12 04/10/2018 COLLIN N Primary COLLIN N [place] [id number] Insurance:MYCARE CRSC TOPEDOB: [facility] *[place] [facility] 7944-29-18BWGRay[place], [place] Number: Repository [address]Rdp: 330 [id number] [phone] (HP) Date:0489-43-57WFJJ CLAIMS [address], [place] [address]VB: 04/10/2018 Secondary NOT GIVENUNK [place] Insurance:SELF PAY [facility] Number: Effective Repository Date:2018-04-03 03/30/2018 COLLIN CELESTE Primary COLLIN [place] [id number] Insurance:MYCARE CRSC TOPEDOB: Community [place] *[place] [facility] 9565-91-15OTNRay[place], [place] Number: Repository [address]Csw: 330 [id number] [phone] (HP) Date:5564-51-43TKFD CLAIMS [address] [address]VA: 03/30/2018 Secondary NOT GIVENUNK [place] Insurance:SELF PAY [facility] Number: Effective Repository Date:2018-03-30 03/29/2018 COLLIN CELESTE Primary COLLIN CELESTE [place] [id number] Insurance:MYCARE CRSC TOPEDOB: [facility] *[place] [facility] 7158-25-10KJGRay[place], [place] Number: Repository [address]Hqq: 330 [id number] [phone] (HP) Date:7183-01-25QJFK CLAIMS [address], [place] [address]LT: 03/29/2018 Secondary NOT GIVENUNK [place] Insurance:SELF PAY [facility] Number: Effective Repository Date:2018-03-29 03/20/2018 COLLIN CELESTE Primary COLLIN CELESTE [place] [id number] Insurance:MYCARE CRSC TOPEDOB: Community [place] *[place] [facility] 4512-69-85NLLRay[place], [place] Number: Repository [address]Tey: (592) [id number] [phone] (HP) Date:4236-97-60AJXN CLAIMS [address] [address]RV: 03/20/2018 Secondary NOT GIVENUNK [place] Insurance:SELF PAY [facility] Number: Effective Repository Date:2018-02-28 02/28/2018 COLLIN CELESTE Primary COLLIN CELESTE [place] [id number] Insurance:MYCARE CRSC TOPEDOB: Community [place] *[place] [facility] 9430-92-91DESRay[place], [place] Number: Repository [address]Woc: 330 [id number] [phone] () Date:1967-14-75KKCY [address]S [address] [address]EV: 02/28/2018 Secondary NOT GIVENUNK [place] Insurance:SELF PAY [facility] Number: Effective Repository Date:2018-02-28 02/28/2018 COLLIN CELESTE Primary COLLIN CELESTE [place] [id number] Insurance:MYCARE CRSC TOPEDOB: Community [place] *[place] [facility] 3521-65-32HHERay[place], [place] Number: Repository [address]Ewa: 330 [id number] [phone] () Date:2985-95-25LDEC CLAIMS [address] [address]NA: 02/28/2018 Secondary NOT GIVENUNK [place] Insurance:SELF PAY [facility] Number: Effective Repository Date:2018-02-28 02/14/2018 COLLIN CELESTE Primary COLLIN CELESTE [place] [id number] Insurance:MYCARE CRSC TOPEDOB: Community [place] *[place] [facility] 7535-31-63AFDRay[place], [place] Number: Repository [address]Ulc: 330 [id number] [phone] () Date:4565-86-56JOWD CLAIMS [address], [place] [address]VN: 02/14/2018 Secondary NOT GIVENUNK [place] Insurance:SELF PAY [facility] Number: Effective Repository Date:2018-02-14 02/02/2018 COLLIN CELESTE Primary COLLIN CELESTE [place] [id number] Insurance:MYCARE CRSC TOPEDOB: Community [place] *[place] [facility] 3209-56-14SLURay[place], [place] Number: Repository [address]Ene: 330 [id number] [phone] (HP) Date:8579-89-94EESR CLAIMS [address], [place] [address]HM: 02/02/2018 Secondary NOT GIVENUNK [place] Insurance:SELF PAY [facility] Number: Effective Repository Date:2018-01-06 01/10/2018 COLLIN CELESTE Primary COLLIN CELESTE [place] [id number] Insurance:[facility]CARE CRSC TOPEDOB: [facility] *[place] [facility] 5194-77-61NDRRay[place], [place] Number: Repository [address]Rpy: 330 [id number] [phone] () Date:8656-70-19ZIJZ CLAIMS [address], [place] [address]PB: 01/10/2018 Secondary NOT GIVENUNK [place] Insurance:SELF PAY [facility] Number: Effective Repository Date:2018-01-10 12/06/2017 COLLIN CELESTE Primary COLLIN CELESTE [place] [id number] Insurance:MYCARE CRSC TOPEDOB: Community [place] *[place] [facility] 8660-40-59ZWQRay[place], [place] Number: Repository [address]Zrs: 330 [id number] [phone] () Date:0511-09-03MRAE CLAIMS [address] [place] [address]FM: 12/06/2017 Secondary COLLIN BOOKER [place] Insurance:MEDICAIDPol TOPEDOB: [facility] Number: [id number] Hospital [id number] Repository Date:2017-09-05 12/06/2017 Tertiary NOT GIVENUNK [place] Insurance:SELF PAY [facility] Number: Effective Repository Date:2017-11-16 11/08/2017 COLLIN CELESTE Primary COLLIN CELESTE [place] [id number] Insurance:MYCARE CRSC TOPEDOB: [facility] *[place] [facility] 2563-06-38XOGRay[place], [place] Number: Repository [address]Blc: 330 [id number] [phone] (HP) Date:0909-66-10VHYB CLAIMS [address], [place] [address]CZ: 11/08/2017 Secondary NOT GIVENUNK [place] Insurance:SELF PAY [facility] Number: Effective Repository Date:2017-10-19 10/19/2017 COLLIN CELESTE Primary COLLIN [place] [id number] Insurance:MYCARE CRSC TOPEDOB: Community [place] *[place] [facility] 7844-62-58EIERay[place], [place] Number: Repository [address]Nrn: 330 [id number] [phone] (HP) Date:0416-56-79KXDF CLAIMS [address], [place] [address]YE: 10/19/2017 Secondary NOT GIVENUNK [place] Insurance:SELF PAY [facility] Number: Effective Repository Date:2017-10-19 10/19/2017 COLLIN CELESTE Primary COLLIN [place] [id number] Insurance:MYCARE CRSC TOPEDOB: Community [place] *[place] [facility] 5219-19-73SBARay[place], [place] Number: Repository [address]Agl: 330 [id number] [phone] (HP) Date:7517-13-67QLVM CLAIMS [address] [address]JJ: 10/19/2017 Secondary NOT GIVENUNK [place] Insurance:SELF PAY [facility] Number: Effective Repository Date:2017-10-19 09/05/2017 COLLIN CELESTE Primary COLLIN [place] [id number] Insurance:MYCARE CRSC TOPEDOB: Community [place] *IN [address], [place] Number: Repository [address]Ptb: 330 [id number] [phone]) Date:1908-92-14AZKP CLAIMS [address] [address]AG: 09/05/2017 Secondary NOT GIVENUNK [place] Insurance:SELF PAY [facility] Number: Effective Repository Date:2017-09-05 08/17/2017 COLLIN CELESTE Primary COLLIN [place] [id number] Insurance:MYCARE CRSC TOPEDOB: Community [place] *[place] [facility] 7754-99-77OJURay[place], [place] Number: Repository [address]Zrf: 330 [id number] [phone] (HP) Date:2816-15-33BTTC CLAIMS [address], [place] [address]OI: 08/17/2017 Secondary NOT GIVENUNK [place] Insurance:SELF PAY [facility] Number: Effective Repository Date:2017-04-23 08/08/2017 COLLIN CELESTE Primary COLLIN [place] [id number] Insurance:MYCARE CRSC TOPEDOB: Community [place] *[place] [facility] 0187-48-65JBMRay[place], [place] Number: Repository [address]Hkg: 330 [id number] [phone] (HP) Date:1706-43-68LCLJ CLAIMS [address], [place] [address]BK: 08/08/2017 Secondary NOT GIVENUNK [place] Insurance:SELF PAY [facility] Number: Effective Repository Date:2017-08-03 08/04/2017 COLLIN CELESTE Primary COLLIN CELESTE [place] [id number] Insurance:MYCARE CRSC TOPEDOB: Community [place] *[place] [facility] 7695-00-10KPWRay[place], [place] Number: Repository [address]Pvs: 330 [id number] [phone] (HP) Date:8466-03-89CNYR [address]S [address] [address]WJ: 08/04/2017 Secondary NOT GIVENUNK [place] Insurance:SELF PAY [facility] Number: Effective Repository Date:2017-06-16 08/02/2017 COLLIN CELESTE Primary COLLIN CELESTE [place] [id number] Insurance:MYCARE CRSC TOPEDOB: [facility] *[place] [facility] 3421-72-26MKURay[place], [place] Number: Repository [address]Gey: 330 [id number] [phone] () Date:9003-17-79IGQP CLAIMS [address] [address]HN: 08/02/2017 Secondary NOT GIVENUNK [place] Insurance:SELF PAY [facility] Number: Effective Repository Date:2017-08-01 07/27/2017 COLLIN CELESTE Primary COLLIN CELESTE [place] [id number] Insurance:MYCARE CRSC TOPEDOB: Community [place] *[place] [facility] 7916-16-51GSORay[place], [place] Number: Repository [address]Lry: 330 [id number] [phone] () Date:3258-69-10ATXB CLAIMS [address] [address]FO: 07/27/2017 Secondary NOT GIVENUNK [place] Insurance:SELF PAY [facility] Number: Effective Repository Date:2017-07-13 07/26/2017 COLLIN CELESTE Primary COLLIN CELESTE [place] [id number] Insurance:MYCARE CRSC TOPEDOB: Community [place] *[place] [facility] 4113-45-63OQXRay[place], [place] Number: Repository 05[address]Zoc: 330 [id number] [phone] () Date:3513-61-37SLDA [address]S [address], [place] [address]ER: 07/26/2017 Secondary NOT GIVENUNK [place] Insurance:SELF PAY [facility] Number: Effective Repository Date:2017-05-19 07/13/2017 COLLIN CELESTE Primary COLLIN CELESTE [place] [id number] Insurance:MYCARE CRSC TOPEDOB: Community [place] *[place] [facility] 8497-90-39NYPRay[place], [place] Number: Repository [address]Ryn: 330 [id number] [phone] (HP) Date:7522-96-70FAFJ CLAIMS [address], [place] [address]HA: 07/13/2017 Secondary NOT GIVENUNK [place] Insurance:SELF PAY [facility] Number: Effective Repository Date:2017-07-11 07/05/2017 COLLIN CELESTE Primary COLLIN CELESTE [place] [id number] Insurance:MYCARE CRSC TOPEDOB: [facility] *[place] [facility] 9975-59-76CVERay[place], [place] Number: Repository [address]Grv: 330 [id number] [phone] () Date:6330-99-08JXAY [address]S [address], [place] [address]SE: 07/05/2017 Secondary NOT GIVENUNK [place] Insurance:SELF PAY [facility] Number: Effective Repository Date:2017-07-05 06/27/2017 COLLIN CELESTE Primary COLLIN CELESTE [place] [id number] Insurance:MYCARE CRSC TOPEDOB: Community [place] *[place] [facility] 0455-96-96MHBRay[place], [place] Number: Repository [address]Sft: 330 [id number] [phone] () Date:4565-13-04EZWZ CLAIMS [address] [place] [address]XT: 06/27/2017 Secondary NOT GIVENUNK [place] Insurance:SELF PAY [facility] Number: Effective Repository Date:2017-06-27
== END ==
PROVIDERS: Family Provider Internal Medicine; PCP Internal Medicine; Referring Provider Internal Medicine; Visit Provider Internal Medicine
DX: E83.51 Hypocalcemia (principal); L65.9 Nonscarring hair loss, unspecified; D64.9 Anemia, unspecified
CPT/HCPCS: 36415; 80048; 82306; 84439; 84443; 85025

== ENCOUNTER 2018-09-08 21:55 | Emergency (ER) | payer MEDICARE, SELFPAY ==
[2018-06-14 14:21] VITALS: BMI 36.5
[2018-09-08 21:55] VITALS: BP 140/81; PULSE 83; RESP 16; TEMP 36.4; O2SAT 98; BMI 36.3
--- NOTE | 2018-09-08 22:10 | ED.VISSUMM ---
- ER Visit Summary Date of Service: 09/08/18 Chief Complaint: Nausea vomiting History of Present Illness: The patient is a 28 F with nausea and vomiting, and right hip pain. She apparently has surgery in 3 days on her right hip and she was told to discontinue her Claritin prior to surgery, she says she has quite a bit of postnasal drip from her sinuses from her allergies, not making her nauseated along with the right hip pain. She is not taking any medications for pain for her hip. She is taking her Zofran but that is not helping. She continues to be nauseated. She has no abdominal pain. No diarrhea. No fever or chills no recent travel. Physical Examination: Not appear in acute distress. Slightly dry mucous membranes, no obvious facial deformity No C-spine tenderness supple neck. Regular rate and rhythm without any obvious murmurs Clear lungs bilaterally speaking in full sentences without any obvious respiratory distress Abdomen soft and nontender no guarding or rebound Moves all extremities without any difficulty or pain. Skin does not show any obvious rashes or lesions, no trauma. Alert oriented ?3 with no gross focal deficit Emergency Department Course and Treatment: Patient appears well, she has no abdominal pain. Her nausea is secondary to her pain possibly postnasal drip. I will give her IV fluids Reglan and Benadryl. I will give her analgesia for her hip pain. She will be discharged after IV fluids. She wants to go home so she can have her surgery in 3 days. Disposition: Discharge stable condition Impression: Nausea and vomiting This note was generated with [employer] dictation software. It may contain incorrect words, spelling, and punctuation that were not noted in review of the chart prior to signing ED Disposition - Plan for ED Patient: Disposition: Home or Assisted Living Instructions: ED Nausea Vomiting Referrals: Juan Alfaro MD [Primary Care Provider] - 3-5 Days
[2018-09-08] MEDS: Morphine 4 MG/ML Syringe IV (22:21)
[2018-09-08] MEDS: DiphenhydrAMINE 50 MG/ML Syringe 25 MG IV (22:21)
[2018-09-08] MEDS: 0.9% Normal Saline 1,000 ML 999 ML IV (22:21)
[2018-09-08] MEDS: Metoclopramide 10 MG/2 ML Vial IV (22:21)
[2018-09-08 23:35] VITALS: BP 132/76; PULSE 83; RESP 14; O2SAT 99
== END 2018-09-09 00:05 | disposition home or self-care (01) ==
PROVIDERS: Emergency Provider Emergency Medicine; Family Provider Internal Medicine; PCP Internal Medicine
DX: R11.2 Nausea with vomiting, unspecified (principal); M25.551 Pain in right hip; J30.9 Allergic rhinitis, unspecified
CPT/HCPCS: 96361; 96374; 96375; 99283; J7030; A4216

== ENCOUNTER → 2018-09-28 | Outpatient (CLI) | payer MEDICARE, SELFPAY ==
[2018-09-28 11:59] VITALS: BMI 36.3
[2018-09-28 13:34] LABS: Absolute Lymphocyte Count 1.69 X10^3/ul (0.83-4.51); Absolute Neutrophil Count 3.3 X10^3/uL (2.0-7.7); Basophil# 0.01 X10^3/uL; Basophil% 0.2 % (0-1); Eosinophil# 0.02 X10^3/uL; Eosinophils% 0.4 % (0-5); Hematocrit 31.1 % (37-47); Lymphocyte # 1.69 X10^3/ul (4.0); Lymphocyte % 31.5 % (19-41); Mean Corp Hgb Conc 35.4 g/gl (32-36); Mean Corpuscular Hgb 29.1 pg (27.0-32.0); Mean Corpuscular Volume 82.3 fL (81-99); Mean Platelet Vol. 8.9 fl (6.2-12.0); Monocyte# 0.32 X10^3/uL; Neutrophil # 3.32 X10^3/uL (2.7-7.7); Neutrophil % 61.9 % (47-70); Platelet Count 317 K/mm3 (150-450); RBC Distribution Width CV 12.4 % (11.6-14.6); RBC Distribution Width SD 36.7 fl (35.1-43.9); Red Blood Count 3.78 M/mm3 (4.2-5.4); White Blood Count 5.4 K/mm3 (4.4-11.0)
[2018-09-28 13:38] LABS: POSITIVE COUNT NO; POSITIVE DIFFERENTIAL NO; POSITIVE MORPHOLOGY NO
[2018-09-28 13:40] LABS: Protein, Urine (Random) 19.3 mg/dL (<11.9); Protein:Creat Ratio 65 mg/g CRE (0-200)
[2018-09-28 14:01] LABS: AST(SGOT) 9 U/L (15-37); Alanine Aminotransfer ALT/SGPT 21 U/L (13-56); Albumin, Serum 3.7 g/dL (3.2-5.0); Alkaline Phosphatase 55 U/L (45-117); Anion Gap 7 (5-15); BUN 5 mg/dL (7-18); BUN/Creat Ratio 8.7 RATIO (10-20); Calcium,Total 8.8 mg/dL (8.5-10.1); Chloride 103 mmol/L (98-107); Creatinine, Serum 0.57 mg/dL (0.55-1.02); EST Glomerular Filtration Rate 133 mL/min (>60); Est Glom Filt Rate - Afr Amer 161 mL/min (>60); Globulin 3.7 g/dL (2.2-4.2); Glucose 155 mg/dL (74-106); Glucose Challenge Gest 1H 50g 155 mg/dL (70-140); Potassium 3.2 mmol/L (3.5-5.1); Protein, Total 7.4 g/dL (6.4-8.2); Sodium Level 138 mmol/L (136-145)
[2018-09-28 14:45] LABS: HIV - WCH Non-Reactive (Nonreactive); Rubella IgG 73.6 IU/mL
[2018-09-29 03:40] LABS: Rapid Plasmin Reagin (RPR) NONREACTIVE (NONREACTIVE)
[2018-09-29 11:32] LABS: HEPATITIS B SURFACE AG Negative (Negative)
== END | disposition home or self-care (01) ==
PROVIDERS: Nurse Practitioner Women's Health; Family Provider Internal Medicine; PCP Internal Medicine; Referring Provider Obstetrics & Gynecology; Visit Provider Obstetrics & Gynecology
DX: Z34.90 Encounter for supervision of normal pregnancy, unspecified, unspecified trimester (principal); O09.299 Supervision of pregnancy with other poor reproductive or obstetric history, unspecified trimester; M25.551 Pain in right hip; R53.81 Other malaise; R53.83 Other fatigue; D64.9 Anemia, unspecified; Z34.80 Encounter for supervision of other normal pregnancy, unspecified trimester; Z3A.00 Weeks of gestation of pregnancy not specified
CPT/HCPCS: 36415; 80053; 82570; 82950; 84156; 85025; 86592; 86703; 86762; 86850; 86900; 87086; 87340

== ENCOUNTER → 2018-09-28 | Outpatient (CLI) | payer MEDICARE, SELFPAY ==
[2018-09-28 11:59] VITALS: BMI 36.3
[2018-09-28 21:14] LABS: Chlamydia Trachomatis by PCR Negative (Negative); Neisserai gonorrhoeae by PCR Negative (Negative); Probe Check PASS; Sample Adequacy Control PASS; Specimen Processing Control PASS
[2018-10-03 15:50] LABS: HPV Reflexed? NOT INDICATED
== END | disposition home or self-care (01) ==
LOC: LABSPEC 16:40
PROVIDERS: Family Provider Internal Medicine; PCP Internal Medicine; Referring Provider Nurse Practitioner Women's Health; Visit Provider Nurse Practitioner Women's Health
DX: Z34.90 Encounter for supervision of normal pregnancy, unspecified, unspecified trimester (principal); R53.81 Other malaise; R53.83 Other fatigue; O09.299 Supervision of pregnancy with other poor reproductive or obstetric history, unspecified trimester; M25.551 Pain in right hip; D64.9 Anemia, unspecified; Z34.80 Encounter for supervision of other normal pregnancy, unspecified trimester; Z3A.00 Weeks of gestation of pregnancy not specified
CPT/HCPCS: 36415; 80053; 82570; 82950; 84156; 85025; 86592; 86703; 86762; 86850; 86900; 87086; 87088; 87340; 87491; 87591; 87624; 88175; G0145

== ENCOUNTER → 2018-10-04 | Outpatient (CLI) | payer MEDICARE, SELFPAY ==
[2018-09-28 11:59] VITALS: BMI 36.3
[2018-10-04 07:44] LABS: Glucose GTT-Gestation. Fasting 87 mg/dL (<105)
[2018-10-04 10:02] LABS: Glucose GTT-Gestational 1 Hr 142 mg/dL (<190)
== END | disposition home or self-care (01) ==
LOC: LAB 06:59
PROVIDERS: Family Provider Internal Medicine; PCP Internal Medicine; Referring Provider Nurse Practitioner Women's Health; Visit Provider Nurse Practitioner Women's Health
DX: O99.810 Abnormal glucose complicating pregnancy (principal); Z3A.00 Weeks of gestation of pregnancy not specified
CPT/HCPCS: 36415; 82951; 82952

== ENCOUNTER 2018-10-17 13:02 | Emergency (ER) | payer MEDICARE, SELFPAY ==
[2018-09-28 11:59] VITALS: BMI 36.3
[2018-10-17 13:03] VITALS: BP 101/65; PULSE 120; RESP 17; TEMP 36.6; O2SAT 99; BMI 34.0
--- NOTE | 2018-10-17 14:45 | US_ITS ---
STUDY: FIRST TRIMESTER OBSTETRICAL ULTRASOUND REASON FOR EXAM: Female, 28 years old. Vaginal bleeding. LMP: 07/23/2018 TECHNIQUE: Transabdominal and Transvaginal TECHNICAL QUALITY: Adequate. PRIOR ULTRASOUND: None. FINDINGS: There is visualization of a single gestational sac in a normal intrauterine position. The mean sac diameter (MSD) measures 5.7 cm. The gestational sac shape is within normal limits. There is a visualized yolk sac. The yolk sac measures 2.3 mm. There is visualization of the placenta. Complete previa is noted currently There is visualization of a live embryo. The crown-rump length (CRL) measures 5.9 cm, indicating an estimated gestational age (EGA) of 12 weeks, 3 days. There is demonstrated cardiac activity with a heart rate of 141 bpm. The estimated gestation age (EGA) by LMP is 12 weeks, 2 days. The estimated date of delivery (CHRIS) by LMP is 04/29/2019. The estimated gestation age (EGA) by US is 12 weeks, 3 days. The estimated date of delivery (CHRIS) by US is 04/28/2019. The uterus measures 10.3 x 9 x 8.2 cm. There is no demonstrated uterine fibroid. The cervix is closed. The right ovary measures 2.7 x 2.3 x 1.4 cm. There is no right ovarian cyst. There is no visualized right adnexal mass or complex lesion. The left ovary measures 7.1 x 6.3 x 3.8 cm. Left ovarian cyst measuring 5.6 cm There is no visualized left adnexal mass or complex lesion. Small amount of cul-de-sac free fluid US/Transvaginal w/Preg US IMPRESSION: Single live early intrauterine as detailed above. Please note that there is currently complete placenta previa which is located anteriorly. Electronically Signed: Ramone Chan DO at 16:37 EDT Tel , Service support ,
[2018-10-17 15:02] LABS: Color, Urine Yellow (Yellow); Glucose, Dipstick Normal (Normal); Ketone-Dipstick 50 mg/dl (Negative); Leukocyte Esterase-Dipstick 500 /ul (Negative); Nitrite-Dipstick Negative (Negative); Occult Blood-Urine 250 /ul (Negative); Protein-Dipstick 15 mg/dl (Negative); Specific Gravity, Urine 1.015 (1.002-1.030); Urine Bilirubin Dipstick Negative (Negative); Urine Clarity Sl. Cloudy (Clear); Urine Urobilinogen 1 mg/dl (Normal); Urine pH 6.5 (5.0 - 8.0)
[2018-10-17 15:09] LABS: Bacteria 3+ /hpf (None Seen); Mucous, Urine 2+ /hpf (<or=2+); Red Blood Cells-Urine 5-10 SEEN /hpf (0-5); Squamous Epithelial Cells - UA 25-50 SEEN /hpf (5-10); White Blood Cells 50-100 SEEN /hpf (0-5)
--- NOTE | 2018-10-17 17:04 | ED.VISSUMM ---
- ER Visit Summary Date of Service: 10/17/18 Chief Complaint: Vaginal bleeding and back pain History of Present Illness: The patient is a 28 F who presents the emergency department with continued low back pain that radiates down her right leg. She is been told that this is most likely sciatica and she was to see chiropractor today. However when she went to urinate she noted blood in her underwear was unsure if it was from the urine or from her vagina. This is her second first had a . 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 She notes minimal abdominal cramping. No loss of leg function or sensation. Physical Examination: Afebrile vital signs are stable Gen: Well-nourished well-developed Head: Normocephalic atraumatic Eyes: Perrl EOMI ENT: TMs clear no rhinorrhea moist mucous membranes Neck: Supple no lymphadenopathy no JVD nontender CVS: Regular rate rhythm no murmurs normal S1-S2 Respiratory: No distress clear to auscultation bilaterally chest nontender Abdomen: Soft nontender nondistended normal bowel sounds no masses Back: Tender to palpation in the right buttock and right lateral paraspinal lumbar musculature Extremity: Nontender no edema Skin: Normal color no rash Neuro: alert orientated ?3 CN II-XII intact normal strength sensation reflexes Psych: Anxious Test Results: Pelvic ultrasound demonstrates complete placenta previa. Single live IUP. Urine was contaminated with 25-50 epithelial cells 3+ bacteria 5-10 red cells and 50-100 white cells. This will be sent for culture. Emergency Department Course and Treatment: Patient is B+ blood type by computer history. I spoke with Dr. Esposito. Patient will need to have complete pelvic rest. She is to follow-up in the office as scheduled. I will write for a lidocaine patch trial. Impression: 1. 12-week intrauterine 2. Placenta previa 3. Sciatica This note was generated with [employer] dictation software. It may contain incorrect words, spelling, and punctuation that were not noted in review of the chart prior to signing ED Disposition - Plan for ED Patient: Disposition: Home or Assisted Living Instructions: Placenta Previa, ED Sciatica Prescriptions: Lidocaine [Lidocaine Pain Relief] 1 ea TP Q12H PRN PRN #5 adh..patch PRN Reason: Pain Referrals: Azucena Esposito MD [STAFF PHYSICIAN] - Keep Lloyd appointment
--- NOTE | 2018-10-17 17:10 | ED.DCSUM_ITS ---
- ER Visit Summary Date of Service: 10/17/18 Chief Complaint: Vaginal bleeding and back pain History of Present Illness: The patient is a 28 F who presents the emergency department with continued low back pain that radiates down her right leg. She is been told that this is most likely sciatica and she was to see chiropractor today. However when she went to urinate she noted blood in her underwear was unsure if it was from the urine or from her vagina. This is her second first had a . Dr. Esposito is her diabetic educator. She notes minimal abdominal cramping. No loss of leg function or sensation. Physical Examination: Afebrile vital signs are stable Gen: Well-nourished well-developed Head: Normocephalic atraumatic Eyes: Perrl EOMI ENT: TMs clear no rhinorrhea moist mucous membranes Neck: Supple no lymphadenopathy no JVD nontender CVS: Regular rate rhythm no murmurs normal S1-S2 Respiratory: No distress clear to auscultation bilaterally chest nontender Abdomen: Soft nontender nondistended normal bowel sounds no masses Back: Tender to palpation in the right buttock and right lateral paraspinal lumbar musculature Extremity: Nontender no edema Skin: Normal color no rash Neuro: alert orientated ?3 CN II-XII intact normal strength sensation reflexes Psych: Anxious Test Results: Pelvic ultrasound demonstrates complete placenta previa. Single live IUP. Urine was contaminated with 25-50 epithelial cells 3+ bacteria 5-10 red cells and 50-100 white cells. This will be sent for culture. Emergency Department Course and Treatment: Patient is B+ blood type by computer history. I spoke with Dr. Esposito. Patient will need to have complete pelvic rest. She is to follow-up in the office as scheduled. I will write for a lidocaine patch trial. Impression: 1. 12-week intrauterine 2. Placenta previa 3. Sciatica This note was generated with [employer] dictation software. It may contain incorrect words, spelling, and punctuation that were not noted in review of the chart prior to signing ED Disposition - Plan for ED Patient: Disposition: Home or Assisted Living Instructions: Placenta Previa, ED Sciatica Prescriptions: Lidocaine [Lidocaine Pain Relief] 1 ea TP Q12H PRN PRN #5 adh..patch PRN Reason: Pain Referrals: Azucena Esposito MD [STAFF PHYSICIAN] - Keep Lloyd appointment
[2018-10-17 17:11] VITALS: BP 102/68; PULSE 76; RESP 14; O2SAT 99
== END 2018-10-17 17:26 | disposition home or self-care (01) ==
PROVIDERS: Emergency Provider Emergency Medicine; Family Provider Internal Medicine; PCP Internal Medicine
DX: O44.11 Complete placenta previa with hemorrhage, first trimester (principal); O26.891 Other specified pregnancy related conditions, first trimester; M54.41 Lumbago with sciatica, right side; Z3A.12 12 weeks gestation of pregnancy; R10.9 Unspecified abdominal pain
CPT/HCPCS: 76817; 81001; 87086; 87088; 99282

== ENCOUNTER → 2018-10-26 | Outpatient (CLI) | payer MEDICARE, SELFPAY ==
[2018-10-17 13:03] VITALS: BMI 34.0
== END | disposition home or self-care (01) ==
LOC: LAB 11:28
PROVIDERS: Family Provider Internal Medicine; PCP Internal Medicine; Referring Provider Obstetrics & Gynecology Maternal & Fetal Medicine; Visit Provider Obstetrics & Gynecology Maternal & Fetal Medicine
DX: Z34.90 Encounter for supervision of normal pregnancy, unspecified, unspecified trimester (principal)
CPT/HCPCS: 36415

== ENCOUNTER → 2018-11-02 | Outpatient (CLI) | payer MEDICARE, SELFPAY ==
[2018-11-02 15:16] VITALS: BMI 34.0
== END | disposition home or self-care (01) ==
LOC: LABSPEC 16:38
PROVIDERS: Family Provider Internal Medicine; PCP Internal Medicine; Referring Provider Nurse Practitioner Women's Health; Visit Provider Nurse Practitioner Women's Health
DX: N89.8 Other specified noninflammatory disorders of vagina (principal)
CPT/HCPCS: 87070; 87205

== ENCOUNTER 2018-11-19 20:02 | Emergency (ER) | payer MEDICARE, SELFPAY ==
[2018-11-16 13:50] VITALS: BMI 34.0
[2018-11-19 20:03] VITALS: BP 145/97; PULSE 137; RESP 18; TEMP 36.6; O2SAT 98; BMI 32.3
--- NOTE | 2018-11-19 20:39 | ED.VISSUMM ---
- ER Visit Summary Date of Service: 11/19/18 Chief Complaint: , vaginal bleeding History of Present Illness: The patient is a 28 F is G2, P1 Ab0 currently 17 weeks . Patient was seen by her OUTPATIENT PHLEBOTOMIST on the with some mild bleeding. Ultrasound at that time showed placenta previa but no acute abnormalities. Patient states she had some mild cramping since that time. She woke up around 10 AM this morning with cramping has been laying in bed all day. She states she has had some mild bleeding all day, but bleeding increased about 5 minutes prior to arrival. Physical Examination: Blood pressure is 145/97 and heart rate is 137. Patient is very anxious. Head and neck examination unremarkable. Heart is tachycardic and regular. Lung sounds are clear. Abdomen is soft with no focal tenderness. Test Results: CBC reveals a hemoglobin 11.1 which is consistent with her prior values. Chemistry studies reveal a sodium of 135 and potassium 3.4. LFTs normal. Fibrinogen is elevated at 607. I would expect a low fibrinogen if she had abruption. Emergency Department Course and Treatment: I reviewed the patient's recent office visit note. I spoke with Dr. Esposito immediately after I saw the patient. She advises patient is not to have a pelvic exam or transvaginal ultrasound. She asked that we get a CBC and a fibrinogen level along with heart tones. We are to monitor her bleeding to ensure she is not bleeding more than a pad an hour. She also advised that in addition to the placenta previa patient also has a friable polyp on her cervix which may be the source of her bleeding. Nursing staff was unable to obtain heart tones. I performed a bedside transabdominal ultrasound. I am able to see movement and heart motion is observed. Patient did change her pad approximately an hour after arrival. Nursing staff states that she did have a clot but pad was not completely saturated. On repeat evaluation patient is resting more comfortably. Lab pressure is 114/55 and heart rate is 87. I did explain to the patient that anytime the patient is has bleeding that is considered a threatened miscarriage. I did reiterate to her multiple times that at this point the if she is going to miscarry there is nothing that we can do to stop it. She is instructed to continue pelvic rest. She is to follow-up with her OB as scheduled and call with any updates as needed. Treatment Plan: [] Disposition: Discharge Impression: Threatened AB This note was generated with [employer] dictation software. It may contain incorrect words, spelling, and punctuation that were not noted in review of the chart prior to signing ED Disposition - Plan for ED Patient: Disposition: Home or Assisted Living Instructions: POSSIBLE MISCARRIAGE (Threatened ) Referrals: Azcuena Esposito MD [STAFF PHYSICIAN] - As Needed
[2018-11-19] MEDS: 0.9% Normal Saline 1,000 ML 150 ML IV (20:40)
[2018-11-19 20:49] LABS: Absolute Lymphocyte Count 1.51 X10^3/ul (0.83-4.51); Absolute Neutrophil Count 6.2 X10^3/uL (2.0-7.7); Basophil# 0.01 X10^3/uL; Basophil% 0.1 % (0-1); Eosinophil# 0.03 X10^3/uL; Eosinophils% 0.4 % (0-5); Hematocrit 31.1 % (37-47); Hemoglobin 11.1 g/dl (12.0-15.0); Lymphocyte # 1.51 X10^3/ul (4.0); Mean Corp Hgb Conc 35.7 g/gl (32-36); Mean Corpuscular Hgb 29.8 pg (27.0-32.0); Mean Corpuscular Volume 83.6 fL (81-99); Mean Platelet Vol. 8.9 fl (6.2-12.0); Monocyte# 0.63 X10^3/uL; Monocyte% 7.5 % (0-10); Neutrophil # 6.19 X10^3/uL (2.7-7.7); Neutrophil % 73.8 % (47-70); Platelet Count 266 K/mm3 (150-450); RBC Distribution Width CV 12.9 % (11.6-14.6); RBC Distribution Width SD 39.5 fl (35.1-43.9); Red Blood Count 3.72 M/mm3 (4.2-5.4); White Blood Count 8.4 K/mm3 (4.4-11.0)
[2018-11-19 20:50] LABS: POSITIVE COUNT NO; POSITIVE DIFFERENTIAL NO; POSITIVE MORPHOLOGY NO
[2018-11-19 21:02] LABS: AST(SGOT) 12 U/L (15-37); Alanine Aminotransfer ALT/SGPT 19 U/L (13-56); Albumin, Serum 3.1 g/dL (3.2-5.0); Alkaline Phosphatase 78 U/L (45-117); Anion Gap 6 (5-15); BUN 6 mg/dL (7-18); Bilirubin, Direct 0.08 mg/dL (0.00-0.30); Chloride 104 mmol/L (98-107); Creatinine, Serum 0.46 mg/dL (0.55-1.02); EST Glomerular Filtration Rate 171 mL/min (>60); Est Glom Filt Rate - Afr Amer 207 mL/min (>60); Estimated Creatinine Clearance 144.01 ml/min; Globulin 4.2 g/dL (2.2-4.2); Glucose 99 mg/dL (74-106); Potassium 3.4 mmol/L (3.5-5.1); Protein, Total 7.3 g/dL (6.4-8.2); Sodium Level 135 mmol/L (136-145)
[2018-11-19 21:08] VITALS: BP 114/55; PULSE 87; O2SAT 99
--- NOTE | 2018-11-19 21:15 | ED.RN ---
PT AMBULATED TO BATHROOM, PAD CHANGED, MODERATE AMOUNT OF BRIGHT RED BLOOD NOTED ON PAD, SMALL PEA SIZED CLOT NOTED. PAD NOT SATURATED, NO LEAKAGE TO UNDERWEAR OR BED. NEW PAD PLACED, NOTIFIED.
[2018-11-19] MEDS: Ondansetron 4 MG/2 ML Vial IV (21:38)
[2018-11-19] MEDS: Morphine 4 MG/ML Syringe IV (21:38)
[2018-11-19 21:49] LABS: Fibrinogen 607 mg/dl (203-444)
== END 2018-11-19 22:32 | disposition home or self-care (01) ==
PROVIDERS: Emergency Provider Emergency Medicine; Family Provider Internal Medicine; PCP Internal Medicine
DX: O20.0 Threatened abortion (principal); O44.02 Complete placenta previa NOS or without hemorrhage, second trimester; O34.42 Maternal care for other abnormalities of cervix, second trimester; N84.1 Polyp of cervix uteri; O99.342 Other mental disorders complicating pregnancy, second trimester; F41.9 Anxiety disorder, unspecified; F32.9 Major depressive disorder, single episode, unspecified; O99.612 Diseases of the digestive system complicating pregnancy, second trimester; K58.9 Irritable bowel syndrome, unspecified; O99.512 Diseases of the respiratory system complicating pregnancy, second trimester; J45.909 Unspecified asthma, uncomplicated; Z3A.17 17 weeks gestation of pregnancy; Z79.82 Long term (current) use of aspirin; Z79.899 Other long term (current) drug therapy
CPT/HCPCS: 80048; 80076; 85025; 85384; 96361; 96374; 96375; 99283; J7030; J2405

== ENCOUNTER 2018-11-20 04:19 | Emergency (ER) | payer MEDICARE, SELFPAY ==
[2018-11-19 20:03] VITALS: BMI 32.3
--- NOTE | 2018-11-20 | PLAC_PTH ---
PATIENT: COLLIN APARICIO LOC: ED U#:[id number] AGE/SX: 28/F ROOM: RE11/20/[address]: Dr. Hernán Alex MD : 1990 BED: DIS: 11/20/2018 SPEC #: [id number] RECD: 11/20/18 06:07 STATUS: FRANCESCA REJessica #: [id number] DANIELLE: 11/20/18 00:[address]: Azucena Esposito DEPT: SURGICAL PATHOLOGY RECD BY: David Ordonez ENTERED: 11/20/18 10:51 SP TYPE: PLACENTA OTHR DR: MD Dr. Juan Karimi MD Tissues: Placenta, NOS Procedures: Surgery Specimen Level IV Comments: @ Ordering doctor for SUV edited from to @ by RGOOD at 11/20/18 135 @ Submitting doctor edited from to @ by RGOOD at 11/20/18 1358 HEADER OPERATION: Not noted PRE-OP DIAGNOSIS: Spontaneous TISSUE SUBMITTED: Placenta MICROSCOPIC DIAGNOSIS Placenta: Immature placenta (117 gm). See comment. RIA:myriam 11/21/18 COMMENT Membranes or umbilical cord are not seen in the specimen. MICROSCOPIC DESCRIPTION Slides are reviewed. GROSS DESCRIPTION Received in fixative is one container labeled with the patient's name and designated placenta. The specimen consists of a small placenta weighing 117 gm. No obvious membrane or umbical cord is identified. The placenta measures 11 x 10 x 2.5 cm. Sections do not reveal any mass lesion. Compliance Attorney sections are submitted in four cassettes. Cassette 1 contains the peripheral portion of the placenta. / SJ:myriam 11/20/18 TC:5 CPT: 36612
[2018-11-20 04:20] VITALS: BP 160/82; PULSE 117; RESP 20; TEMP 36.8; O2SAT 98; BMI 32.9
--- NOTE | 2018-11-20 04:29 | ED.VIS.FEGU ---
History of Present Illness Chief Complaint: Vag Bld, Preg Informant: Patient, Parent Issue: Vaginal bleeding, Passing tissue - saw baby and placenta pass into toilet Onset: - - 10 min HEAD MILLER Context: Sudden Onset - felt like she needed to have a BM, so sat on toilet; subsequently miscarried 17-18 wk old fetus Current Severity: Heavy Maximum Severity: Heavy Associated Symptoms: Negative for: Dysuria, Frequency, Hematuria P: 1 Narrative: Patient has placenta previa and was seen here earlier for bleeding, after discussion with [facility], was deemed safe to be discharged home as she was not hemorrhaging and also has a cervical polyp that could have been the source of the bleeding. She states that even though she was treated for pain here, she remained in pain, lots of pelvic cramping, and could not sleep. When she felt the need to have a bowel movement she has had on the toilet and subsequently miscarried. States the pain is still present and severe. Prior to arrival, felt very lightheaded with standing. Brought in via wheelchair. - Past Medical History (1) Anemia Status: Chronic (2) Gestational diabetes Status: Chronic Comment: Initial BS WNL. 11/02 check FBS, and 2 hr pp. Declines seeing single needle tufting machine operator. Considering 3hr GTT (3) History of pre-eclampsia in prior , currently Status: Chronic Comment: baseline labs. baby asa at 12 weeks (4) Placenta previa Status: Chronic Comment: recheck at anatomy US. Pelvic rest (5) Asthma Status: Chronic (6) Chronic back pain Status: Chronic (7) Depression with anxiety Status: Chronic (8) GERD (gastroesophageal reflux disease) Status: Chronic (9) IBS (irritable bowel syndrome) Status: Chronic (10) Scoliosis Status: Chronic (11) Irregular periods Status: Chronic Past Medical History - Allergies and Home Meds Allergies/Adverse Reactions: Allergies naproxen Adverse Reaction (Verified 11/19/18 20:03) Other varenicline tartrate [From Chantix] Adverse Reaction (Verified 11/19/18 20:03) Other Primary Care Physician: Azucena Esposito MD [STAFF PHYSICIAN] - (as directed) Surgical History: tonsillectomy, - - C Section, knee scopes Lives: With Family Smoking Status: Former smoker Review of Systems General: Denies: Chills, Fever Gastrointestinal: Reports: Abdominal pain. Denies: Nausea, Vomiting Genitourinary: Reports: - - Vaginal bleeding. See HPI.. Denies: Dysuria, Hematuria Musculoskeletal: Denies: Back pain, Extremity Pain Skin: Denies: Rash, Wounds Neurological: Denies: Headache, Weakness, Numbness Psych: Reports: Depression, Anxiety. Denies: Suicidal thoughts Physical Exam Vital Signs/Narrative: Vital Signs Temp Pulse Resp BP Pulse Ox 11/20/18 04:20 98.3 F 117 H 20 H 160/82 H 98 Inital Vital Signs reviewed: Yes General: Well nourished, Well developed Head: Normocephalic, Atraumatic Eyes: Perrl, EOMI Neck: Supple, Nontender Cardiovascular: Regular rate, Regular rhythm, No murmurs, Tachycardia Respiratory: No distress, CTA bilaterally, Chest nontender Abdomen: Soft, Nondistended, Normal bowel sounds, Tender - Mildly, throughout pelvis. Negative for: Guarding, Rebound tenderness Back: Nontender, Normal Inspection Extremities: Nontender, No edema Skin: Normal color, No rash, No Trauma Neurological: Alert, Oriented x3, Cranial nerves II-XII grossly intact, Normal Strength, Normal Sensation Psychological: Tearful Diagnostic/Tx/Re-eval Laboratory Tests 11/20/18 Range/Units 04:30 Hgb 11.3 L (12.0-15.0) g/dl Hct 31.8 L (37-47) % - Medical Decision/Diagnostic Studies Hemoglobin is similar to what it was earlier, reassuring. We put an IV in the patient and treat her with IV fluids, morphine, Zofran, and some Ativan given her request for something to help calm her nerves. I discussed with Dr. Esposito who evaluated the patient in the emergency department, performed the pelvic exam, and removed residual placenta, which was intact. Patient is doing better. Vaginal bleeding is scant and she is ambulatory. She will be observed in the emergency department until after the ultrasound ordered by OB, which is expected to confirm that is completed. Analgesics were prescribed by OB. ED Disposition - Plan for ED Patient: Disposition: Home or Assisted Living Diagnosis: Complete , Placenta previa with hemorrhage in second trimester Instructions: MISCARRIAGE, Spontaneous (Completed) Prescriptions: Oxycodone HCl/Acetaminophen [Percocet 5-325] 1 - 2 tab PO Q4H PRN PRN 7 Days #15 tab PRN Reason: Pain Prescription Printed Referrals: Azucena Esposito MD [STAFF PHYSICIAN] - (as directed)
[2018-11-20] MEDS: Morphine 4 MG/ML Syringe IV ×2 (04:35→05:26)
[2018-11-20] MEDS: LORazepam 2 MG/ML Syringe 0.5 MG IV (04:35)
[2018-11-20 04:47] LABS: Hematocrit 31.8 % (37-47); Hemoglobin 11.3 g/dl (12.0-15.0)
[2018-11-20] MEDS: Ondansetron 4 MG/2 ML Vial IV (05:08)
--- NOTE | 2018-11-20 05:08 | US_ITS ---
STUDY: FIRST TRIMESTER OBSTETRICAL ULTRASOUND REASON FOR EXAM: Female, 28 years old. Miscarriages LMP: 07/23/2018 TECHNIQUE: Transabdominal and Transvaginal TECHNICAL QUALITY: Adequate. PRIOR ULTRASOUND: None. FINDINGS: There is no demonstrated intrauterine gestational sac. The uterus measures 13 x 7 x 7 cm. The endometrium is thickened and is heterogeneous. There is no demonstrated uterine fibroid. The cervix is closed. The right ovary measures 3.2 x 3.4 x 1.9 cm. There is no right ovarian cyst. There is no visualized right adnexal mass or complex lesion. The left ovary measures 8 x 8.7 x 4.8 cm. There is 7.6 cm left ovarian cyst. There is no visualized left adnexal mass or complex lesion. There is no fluid in the cul de sac. US/Pelvic (Non ) IMPRESSION: There is 7.6 cm left ovarian cyst. There is no demonstrated intrauterine gestational sac. Electronically Signed: Hugo Mc, at 8:09 EDT Tel , Service support ,
--- NOTE | 2018-11-20 05:12 | OB.TRI.HP_ITS ---
- Problem List (1) Complete Status: Acute (2) Placenta previa with hemorrhage in second trimester Status: Acute (3) Placenta previa Status: Chronic Qualifiers: Trimester: second trimester Qualified Code(s): O44.02 - Complete placenta previa NOS or without hemorrhage, second trimester Comment: recheck at anatomy US. Pelvic rest History of Present Illness Date of Service: 11/20/18 Was patient seen by the physician?: Yes Reason For Visit: miscarriage Date of Service: 11/20/18 Final CHRIS: 04/29/19 Gestational age: 17 Weeks and 1 Days History of Present Illness: 28-year-old G2, P1 at 16 weeks presents for miscarriage at home. Patient was diagnosed with placenta previa and has had some intermittent bleeding from the last several days and then developed acute lower pelvic pain and miscarried at home. Presents with lower pelvic cramping and pain and still having some bleeding. Allergies naproxen Adverse Reaction (Verified 11/19/18 20:03) Other varenicline tartrate [From Chantix] Adverse Reaction (Verified 11/19/18 20:03) Other - Pertinent Past Medical History Medical History: Past Medical History (Last Reviewed 11/16/18 @ 13:06 by Sola Johansen) Acute appendicitis (Resolved) Right lower quadrant abdominal pain of unknown etiology (Resolved) GERD (gastroesophageal reflux disease) (Chronic) Viral syndrome (Resolved) Irregular periods (Chronic) Foot pain, bilateral (Acute) Obesity (Chronic) Depression with anxiety (Chronic) Scoliosis (Chronic) IBS (irritable bowel syndrome) (Chronic) Chronic back pain (Chronic) Asthma (Chronic) Depression (Chronic) Anxiety (Chronic) Preeclampsia Surgical History: Past Surgical History (Last Reviewed 11/16/18 @ 13:06 by Sola Johansen) H/O knee surgery History of tonsillectomy Hx of breast reduction, elective S/P laparoscopic appendectomy Onset Date: ~05/06/18 S/P right knee arthroscopy 05/06/17 adnoids c/s Laboratory Studies: Laboratory Tests 11/20/18 Range/Units 04:30 Hgb 11.3 L (12.0-15.0) g/dl Hct 31.8 L (37-47) % Review of Systems Constitutional: Reports: Fatigue Respiratory: Denies: Cough Gastrointestinal: Reports: Abdominal Pain, Nausea Gynecological: Reports: Vaginal bleeding Musculoskeletal: Denies: Muscle pain Skin: Denies: Rash, Skin Changes Psychiatric: Reports: Anxiety Physical Exam Vitals: Vital Signs Temp Pulse Resp BP Pulse Ox 98.3 F 117 H 20 H 160/82 H 98 11/20/18 04:20 11/20/18 04:20 11/20/18 04:20 11/20/18 04:20 11/20/18 04:20 General: Alert, Oriented x3 HEENT: Atraumatic, Normocephalic Cardiovascular: Regular rate Lungs: Normal air movement Abdomen: Soft, Non Tender, Non-Distended AUTOMOTIVE WINDOW TINTER: Normal external genitalia - Pelvic exam performed and cervix dilated 1 to 2 cm with placenta mostly expelled in the vaginal vault. Placenta removed and checked and noted be intact with membranes all around. No tissue seen. Patient reports that tissue is at home. Impression/Plan 28-year-old G2, P1 at 16 weeks presents with complete Rh+ Hemoglobin stable Pain control, dose of Cytotec given, will check ultrasound to confirm completion of miscarriage and then discharged home with oral pain control.
[2018-11-20] MEDS: miSOPROStol 200 MCG Tablet 800 MCG PO (05:26)
--- NOTE | 2018-11-20 05:42 | ED.RN ---
Vaginal exam set up for Dr. Cook. Placenta removed by Dr. MAXWELL. Placenta placed in appropriate container for pathology. Emotional support given. PT taken to bathroom, cleaned up, diaper placed by pt request. Pending US.
[2018-11-20] MEDS: Ibuprofen 600 MG Tablet PO (05:57)
[2018-11-20 07:18] VITALS: BP 122/67; PULSE 74; RESP 16; O2SAT 99
[2018-11-20 08:21] VITALS: BP 124/62; PULSE 71; RESP 16; O2SAT 98
[2018-11-22 13:58] LABS: Pathology Specimen OB SEE PATHOLOGY REPORT
== END 2018-11-20 08:22 | disposition home or self-care (01) ==
PROVIDERS: Obstetrics & Gynecology; Emergency Provider Emergency Medicine; Family Provider Internal Medicine; PCP Internal Medicine
DX: O03.9 Complete or unspecified spontaneous abortion without complication (principal); O44.12 Complete placenta previa with hemorrhage, second trimester; O24.419 Gestational diabetes mellitus in pregnancy, unspecified control; O09.892 Supervision of other high risk pregnancies, second trimester; O99.512 Diseases of the respiratory system complicating pregnancy, second trimester; J45.909 Unspecified asthma, uncomplicated; O99.342 Other mental disorders complicating pregnancy, second trimester; F41.8 Other specified anxiety disorders; O99.612 Diseases of the digestive system complicating pregnancy, second trimester; K58.9 Irritable bowel syndrome, unspecified; O99.89 Other specified diseases and conditions complicating pregnancy, childbirth and the puerperium; M41.9 Scoliosis, unspecified; M54.9 Dorsalgia, unspecified; G89.29 Other chronic pain; O34.42 Maternal care for other abnormalities of cervix, second trimester; N84.1 Polyp of cervix uteri; O99.212 Obesity complicating pregnancy, second trimester; E66.9 Obesity, unspecified; Z3A.17 17 weeks gestation of pregnancy; Z87.891 Personal history of nicotine dependence; Z79.82 Long term (current) use of aspirin
CPT/HCPCS: 76856; 85014; 85018; 88305; 88307; 96361; 96374; 96375; 99283; J7030; J7040; A4216; J2405

== ENCOUNTER → 2018-11-22 | Outpatient (CLI) | payer MEDICARE, SELFPAY ==
[2018-11-20 04:20] VITALS: BMI 32.9
--- NOTE | 2018-11-22 15:55 | US_ITS ---
STUDY: ULTRASOUND TRANSVAGINAL CLINICAL: Female, 28 years old. Severe pelvic pain, recent missed AB. TECHNIQUE: Transvaginal, transabdominal. COMPARISON: 11/20/2018. FINDINGS: The uterus measures 12.4 x 6.2 x 7.9 cm, consistent with recent miscarriage. The endometrium is hyperechoic and mildly thickened measuring 1.6 cm. Mild areas of heterogeneity are present. Right ovary is normal in size and echogenicity, measuring 2 x 3.4 x 1.8 cm. No mass or dominant cyst. Arterial and venous flow is documented. Left ovary measures 8.1 x 5.1 x 7.4 cm. There is a 6.1 x 4.8 x 7.1 cm simple left ovarian cyst. No significant change from the prior study. No free fluid in the cul-de-sac. US/Transvaginal Non- IMPRESSION: 1. Thickened, mildly heterogeneous endometrium, concerning for retained products. 2. A 7.1 cm left ovarian cyst, likely physiologic but larger than a simple follicular cyst. Consider 10 week follow-up. Electronically Signed: Yareli Palmer MD at 17:18 EDT Tel , Service support ,
== END | disposition home or self-care (01) ==
LOC: US 15:54
PROVIDERS: Family Provider Internal Medicine; PCP Internal Medicine; Referring Provider Obstetrics & Gynecology; Visit Provider Obstetrics & Gynecology
DX: R10.9 Unspecified abdominal pain (principal)
CPT/HCPCS: 76830

== ENCOUNTER → 2018-11-30 | Outpatient (CLI) | payer MEDICARE, SELFPAY ==
[2018-11-30 17:43] VITALS: BMI 32.9
[2018-11-30 18:37] LABS: Absolute Neutrophil Count 1.9 X10^3/uL (2.0-7.7); Basophil# 0.02 X10^3/uL; Basophil% 0.4 % (0-1); Eosinophil# 0.04 X10^3/uL; Eosinophils% 0.8 % (0-5); Hematocrit 33.6 % (37-47); Hemoglobin 11.5 g/dl (12.0-15.0); Lymphocyte % 50.5 % (19-41); Mean Corp Hgb Conc 34.2 g/gl (32-36); Mean Corpuscular Hgb 29.1 pg (27.0-32.0); Mean Corpuscular Volume 85.1 fL (81-99); Mean Platelet Vol. 8.7 fl (6.2-12.0); Monocyte# 0.43 X10^3/uL; Monocyte% 9.1 % (0-10); Neutrophil # 1.85 X10^3/uL (2.7-7.7); Platelet Count 352 K/mm3 (150-450); RBC Distribution Width CV 12.4 % (11.6-14.6); RBC Distribution Width SD 38.6 fl (35.1-43.9); Red Blood Count 3.95 M/mm3 (4.2-5.4); White Blood Count 4.8 K/mm3 (4.4-11.0)
[2018-11-30 18:38] LABS: POSITIVE COUNT NO; POSITIVE DIFFERENTIAL NO; POSITIVE MORPHOLOGY NO
[2018-11-30 19:26] LABS: hCG Titer Quant., Serum 30 mIU/mL (1-3)
== END | disposition home or self-care (01) ==
LOC: LABSPEC 18:25
PROVIDERS: Family Provider Internal Medicine; PCP Internal Medicine; Visit Provider Obstetrics & Gynecology
DX: O03.9 Complete or unspecified spontaneous abortion without complication (principal); N93.9 Abnormal uterine and vaginal bleeding, unspecified
CPT/HCPCS: 36415; 84702; 85025

== ENCOUNTER → 2018-12-08 | Outpatient (CLI) | payer MEDICARE, SELFPAY ==
[2018-11-30 17:43] VITALS: BMI 32.9
[2018-12-08 08:29] LABS: Hemoglobin A1c 4.9 % (4.2-6.3); hCG Titer Quant., Serum 9 mIU/mL (1-3)
== END | disposition home or self-care (01) ==
LOC: LAB 07:31
PROVIDERS: Family Provider Internal Medicine; PCP Internal Medicine; Referring Provider Obstetrics & Gynecology; Visit Provider Obstetrics & Gynecology
DX: O03.9 Complete or unspecified spontaneous abortion without complication (principal); Z13.1 Encounter for screening for diabetes mellitus; Z3A.00 Weeks of gestation of pregnancy not specified
CPT/HCPCS: 36415; 83036; 84702

== ENCOUNTER → 2019-02-02 18:28 | Outpatient (CLI) | payer MEDICARE, SELFPAY ==
[2019-01-12 14:16] VITALS: BMI 34.0
--- NOTE | 2019-02-02 18:33 | US_ITS ---
STUDY: ULTRASOUND OF THE FEMALE PELVIS - COMPLETE REASON FOR EXAM: Female, 28 years old. Left ovarian cyst LMP: January 12, 2019 TECHNIQUE: Transabdominal and endovaginal TECHNICAL QUALITY: Adequate. COMPARISON: November 22, 2018 FINDINGS: The uterus is anteverted and is in a midline position. The uterus measures 8.6 x 7.0 x 4.3 cm. Nabothian cysts at the uterine cervix. The endometrium measures 15 mm in thickness, and is heterogeneous. There is no demonstrated endometrial mass. There is no demonstrated myometrial mass. The patient does not have an I.U.D. The right ovary is visualized. The right ovary measures 3.1 x 1.9 x 2.5 cm. There is a 1.5 cm hypoechoic nodule. There is normal arterial and normal venous vascularity. The left ovary is visualized. The left ovary measures 7.2 x 7.6 x 4.8 cm. There is a 6.6 x 6.8 x 4.4 cm left ovarian cyst. There is normal arterial and normal venous vascularity. There is no fluid in the cul-de-sac. US/Pelvic (Non ) IMPRESSION: Persistent slightly thickened heterogeneous endometrium. Nabothian cysts. Relatively stable left ovarian cyst. Questionable small hypoechoic right ovarian nodule. Electronically Signed: Hector Biswas DO at 23:21 EDT Tel [phone], Service support ,
--- NOTE | 2019-02-02 18:45 | US_ITS ---
STUDY: ULTRASOUND OF THE FEMALE PELVIS - COMPLETE REASON FOR EXAM: Female, 28 years old. Left ovarian cyst LMP: January 12, 2019 TECHNIQUE: Transabdominal and endovaginal TECHNICAL QUALITY: Adequate. COMPARISON: November 22, 2018 FINDINGS: The uterus is anteverted and is in a midline position. The uterus measures 8.6 x 7.0 x 4.3 cm. Nabothian cysts at the uterine cervix. The endometrium measures 15 mm in thickness, and is heterogeneous. There is no demonstrated endometrial mass. There is no demonstrated myometrial mass. The patient does not have an I.U.D. The right ovary is visualized. The right ovary measures 3.1 x 1.9 x 2.5 cm. There is a 1.5 cm hypoechoic nodule. There is normal arterial and normal venous vascularity. The left ovary is visualized. The left ovary measures 7.2 x 7.6 x 4.8 cm. There is a 6.6 x 6.8 x 4.4 cm left ovarian cyst. There is normal arterial and normal venous vascularity. There is no fluid in the cul-de-sac. US/Transvaginal Non- IMPRESSION: Persistent slightly thickened heterogeneous endometrium. Nabothian cysts. Relatively stable left ovarian cyst. Questionable small hypoechoic right ovarian nodule. Electronically Signed: Hector Biswas DO at 23:21 EDT Tel [phone], Service support ,
== END ==
PROVIDERS: Family Provider Internal Medicine; PCP Internal Medicine; Referring Provider Obstetrics & Gynecology; Visit Provider Obstetrics & Gynecology
DX: N83.202 Unspecified ovarian cyst, left side (principal); N88.8 Other specified noninflammatory disorders of cervix uteri
CPT/HCPCS: 76830; 76856

== ENCOUNTER → 2019-02-07 14:32 | Outpatient (CLI) | payer MEDICARE, SELFPAY ==
[2019-02-07 13:44] VITALS: BMI 34.0
[2019-02-09 16:21] LABS: ANTINUCLEAR ANTIBODIES DIRECT Negative (Negative)
== END ==
PROVIDERS: Family Provider Internal Medicine; PCP Internal Medicine; Referring Provider Nurse Practitioner Family; Visit Provider Nurse Practitioner Family
DX: M25.50 Pain in unspecified joint (principal); Z84.0 Family history of diseases of the skin and subcutaneous tissue
CPT/HCPCS: 36415; 86038; 86225; 86235

== ENCOUNTER → 2019-04-03 10:30 | Outpatient (CLI) | payer MEDICARE, SELFPAY ==
[2019-03-22 10:00] VITALS: BMI 36.1
--- NOTE | 2019-04-03 10:33 | VDLE_ITS ---
Reason For Study: RLE pain RIGHT GSV is normal. CFV is compressible, spontaneous, phasic, competent and demonstrates normal augmentation. FV is compressible, spontaneous, phasic, competent and demonstrates normal augmentation. POP V is compressible, spontaneous, phasic, competent and demonstrates normal augmentation. T/P Trunk is compressible. PTV is compressible. RT PerV is compressible. Procedure Exam performed in department. The study was technically difficult. A preliminary report was called and/or faxed to Abdoulaye Atkinson @ [phone] @ 11:05 am. Interpretation Summary Deep veins of the right lower extremity are patent and compressible segmentally. There is no evidence of right lower extremity deep vein thrombosis. Valvular competence appears intact within the proximal deep venous system on the right . The right great saphenous vein appears patent and compressible segmentally. Ordering Physician: ABDOULAYE ATKINSON Referring Physician: [facility] , Out of Performed By: Nina Tomas, SHEILA, RVT
== END ==
PROVIDERS: Family Provider Internal Medicine; PCP Internal Medicine
DX: M79.661 Pain in right lower leg (principal)
CPT/HCPCS: 93971

== ENCOUNTER → 2019-04-08 12:20 | Outpatient (CLI) | payer MEDICARE, SELFPAY ==
[2019-04-08 13:29] VITALS: BMI 36.1
[2019-04-09 15:18] LABS: Bacteria 0 SEEN /hpf (None Seen); Mucous, Urine 0 SEEN /hpf (<or=2+); Red Blood Cells-Urine 0 SEEN /hpf (0-5)
[2019-04-09 15:29] LABS: Color, Urine Yellow (Yellow); Glucose, Dipstick Normal (Normal); Ketone-Dipstick Negative (Negative); Leukocyte Esterase-Dipstick 25 /ul (Negative); Nitrite-Dipstick Negative (Negative); Occult Blood-Urine Negative /ul (Negative); Protein-Dipstick 15 mg/dl (Negative); Specific Gravity, Urine 1.025 (1.002-1.030); Urine Bilirubin Dipstick Negative (Negative); Urine Clarity Clear (Clear); Urine Urobilinogen Normal (Normal)
[2019-04-09 15:45] LABS: Squamous Epithelial Cells - UA 10-25 SEEN /hpf (5-10); White Blood Cells 0 SEEN /hpf (0-5)
[2019-04-09 15:46] LABS: Calcium Oxalate Crystals Ur 2+ /hpf (<or=2+)
== END ==
PROVIDERS: Family Provider Internal Medicine; PCP Internal Medicine; Referring Provider Physician Assistant Medical; Visit Provider Physician Assistant Medical
DX: R30.0 Dysuria (principal)
CPT/HCPCS: 81001; 87077; 87086; 87088; 87186

== ENCOUNTER → 2019-05-07 17:07 | Outpatient (CLI) | payer MEDICARE, SELFPAY ==
[2019-05-07 13:12] VITALS: BMI 36.1
== END ==
PROVIDERS: Family Provider Internal Medicine; PCP Internal Medicine; Referring Provider Obstetrics & Gynecology; Visit Provider Obstetrics & Gynecology
DX: N39.0 Urinary tract infection, site not specified (principal)
CPT/HCPCS: 87086; 87088

== ENCOUNTER → 2019-05-17 | Outpatient (CLI) | payer MEDICARE, SELFPAY ==
[2019-05-17 15:30] VITALS: BMI 36.1
[2019-05-17 19:43] LABS: Chlamydia Trachomatis by PCR Negative (Negative); Neisserai gonorrhoeae by PCR Negative (Negative); Probe Check PASS; Sample Adequacy Control PASS; Specimen Processing Control PASS
== END | disposition home or self-care (01) ==
LOC: LABSPEC 17:23
PROVIDERS: PCP Internal Medicine; Visit Provider Obstetrics & Gynecology
DX: N89.8 Other specified noninflammatory disorders of vagina (principal); G89.29 Other chronic pain; M54.9 Dorsalgia, unspecified
CPT/HCPCS: 87070; 87086; 87205; 87491; 87591

== ENCOUNTER → 2019-06-07 12:40 | Outpatient (CLI) | payer MEDICARE, SELFPAY ==
[2019-05-17 15:30] VITALS: BMI 36.1
[2019-06-07 13:33] LABS: hCG Titer Quant., Serum 302 mIU/mL (1-3)
== END ==
PROVIDERS: PCP Internal Medicine; Referring Provider Obstetrics & Gynecology; Visit Provider Obstetrics & Gynecology
DX: N91.2 Amenorrhea, unspecified (principal)
CPT/HCPCS: 36415; 84702

== ENCOUNTER → 2019-06-11 08:51 | Outpatient (CLI) | payer MEDICARE, SELFPAY ==
[2019-05-17 15:30] VITALS: BMI 36.1
[2019-06-11 10:03] LABS: hCG Titer Quant., Serum 1414 mIU/mL (1-3)
== END ==
PROVIDERS: PCP Internal Medicine; Referring Provider Obstetrics & Gynecology; Visit Provider Obstetrics & Gynecology
DX: N91.2 Amenorrhea, unspecified (principal)
CPT/HCPCS: 36415; 84702

== ENCOUNTER → 2019-06-28 | Outpatient (CLI) | payer MEDICARE, MEDICAID, SELFPAY ==
[2019-06-28 13:23] VITALS: BMI 36.1
[2019-06-28 18:40] LABS: Amphetamine Urine VISTA NEGATIVE (<1000 ng/mL); Barbiturate Urine VISTA NEGATIVE (< 200 ng/mL); Benzodiazepine Urine VISTA NEGATIVE (< 200 ng/mL); Cocaine Urine VISTA NEGATIVE (< 300 ng/mL); Ecstacy Urine VISTA NEGATIVE (< 500 ng/mL); Methadone Urine VISTA NEGATIVE (< 300 ng/mL); PCP Urine VISTA NEGATIVE (< 25 ng/mL); THC Urine VISTA NEGATIVE (< 50 ng/mL); Vista UDS pH Range 6
[2019-06-28 20:10] LABS: Chlamydia Trachomatis by PCR Negative (Negative); Neisserai gonorrhoeae by PCR Negative (Negative); Probe Check PASS; Sample Adequacy Control PASS; Specimen Processing Control PASS
[2019-07-04 14:08] LABS: HPV Genotype 16, Aptima Negative (Negative)
[2019-07-04 16:50] LABS: HPV APTIMA, High Risk Positive (Negative); HPV Genotype 18,45 Aptima Negative (Negative)
== END | disposition home or self-care (01) ==
LOC: LABSPEC 16:39
PROVIDERS: PCP Internal Medicine; Referring Provider Obstetrics & Gynecology; Visit Provider Obstetrics & Gynecology
DX: Z34.90 Encounter for supervision of normal pregnancy, unspecified, unspecified trimester (principal); Z12.4 Encounter for screening for malignant neoplasm of cervix; M54.9 Dorsalgia, unspecified; G89.29 Other chronic pain
CPT/HCPCS: 80307; 87077; 87086; 87088; 87186; 87491; 87591; 87624; 88175; G0145

== ENCOUNTER → 2019-07-09 16:08 | Outpatient (CLI) | payer MEDICARE, MEDICAID, SELFPAY ==
[2019-06-28 13:23] VITALS: BMI 36.1
--- NOTE | 2019-07-09 16:09 | US_ITS ---
STUDY: FIRST TRIMESTER OBSTETRICAL ULTRASOUND REASON FOR EXAM: Female, 29 years old pelvic cramping, positive test LMP: 05/16/2019 TECHNIQUE: Transvaginal TECHNICAL QUALITY: Adequate. PRIOR ULTRASOUND: No recent studies FINDINGS: There is visualization of a single gestational sac in a normal intrauterine position. The mean sac diameter (MSD) measures 3.81 cm, indicating an estimated gestational age (EGA) of 9 weeks, 3 days. The gestational sac shape is within normal limits. There is a visualized yolk sac. The yolk sac measures 0.32 cm. The placenta is non-visualized. There is visualization of a live embryo. The crown-rump length (CRL) measures 1.98 cm, indicating an estimated gestational age (EGA) of 8 weeks, 4 days. There is demonstrated cardiac activity with a heart rate of 160 bpm. The estimated gestation age (EGA) by LMP is 7 weeks, 5 days. The estimated date of delivery (CHRIS) by LMP is 02/20/2020. The estimated gestation age (EGA) by US is 9 weeks, 0 days. The estimated date of delivery (CHRIS) by US is 02/11/2020. The uterus measures 11.0 x 9.2 x 6.3 cm. There is no demonstrated uterine fibroid. The cervix is closed. The right ovary measures 2.1 x 1.9 x 1.9 cm. There is no right ovarian cyst. There is no visualized right adnexal mass or complex lesion. The left ovary measures 3.3 x 2.8 x 1.9 cm. There is no left ovarian cyst. There is no visualized left adnexal mass or complex lesion. There is no fluid in the cul de sac. US/Transvaginal w/Preg US IMPRESSION: Single live intrauterine at 8 weeks, 4 days by current ultrasound with CHRIS of 02/13/2020. Heart rate at 160 bpm. No suspicious sonographic findings. Electronically Signed: Luis Shirley MD at 17:43 EST , Service support ,
== END ==
PROVIDERS: PCP Internal Medicine; Referring Provider Nurse Practitioner Women's Health; Visit Provider Nurse Practitioner Women's Health
DX: O20.0 Threatened abortion (principal); Z3A.00 Weeks of gestation of pregnancy not specified
CPT/HCPCS: 76817

== ENCOUNTER → 2019-07-11 13:35 | Outpatient (CLI) | payer MEDICARE, MEDICAID, SELFPAY ==
[2019-06-28 13:23] VITALS: BMI 36.1
[2019-07-11 15:02] LABS: Absolute Lymphocyte Count 1.99 X10^3/uL (0.83-4.51); Absolute Neutrophil Count 4.1 X10^3/uL (2.0-7.7); Basophil# 0.02 X10^3/uL; Basophil% 0.3 % (0-1); Eosinophil# 0.02 X10^3/uL; Eosinophils% 0.3 % (0-5); Hematocrit 30.5 % (37-47); Hemoglobin 10.6 g/dL (12.0-15.0); Lymphocyte # 1.99 X10^3/ul (4.0); Lymphocyte % 30.6 % (19-41); Mean Corp Hgb Conc 34.8 g/dL (32-36); Mean Corpuscular Hgb 29.6 pg (27.0-32.0); Mean Corpuscular Volume 85.2 fL (81-99); Mean Platelet Vol. 9.1 fl (6.2-12.0); Monocyte# 0.33 X10^3/uL; Monocyte% 5.1 % (0-10); NRBC Flagged by Analyzer 0 % (0-5); Neutrophil # 4.13 X10^3/uL (2.7-7.7); Neutrophil % 63.5 % (47-70); Platelet Count 302 K/mm3 (150-450); RBC Distribution Width CV 11.7 % (11.6-14.6); RBC Distribution Width SD 35.8 fl (35.1-43.9); Red Blood Count 3.58 M/mm3 (4.2-5.4); White Blood Count 6.5 K/mm3 (4.4-11.0)
[2019-07-11 15:19] LABS: Glucose Challenge Gest 1H 50g 154 mg/dL (70-140)
[2019-07-12 03:26] LABS: Rapid Plasmin Reagin (RPR) NONREACTIVE (NONREACTIVE)
[2019-07-12 11:18] LABS: HIV - WCH Non-Reactive (Nonreactive); Hepatitis B Surface Antigen Non-Reactive (Nonreactive); Hepatitis C Antibody Non-Reactive (Nonreactive); Rubella IgG 70.9 IU/mL
== END ==
PROVIDERS: PCP Internal Medicine; Referring Provider Obstetrics & Gynecology; Visit Provider Obstetrics & Gynecology
DX: O99.210 Obesity complicating pregnancy, unspecified trimester (principal); E66.9 Obesity, unspecified; O99.019 Anemia complicating pregnancy, unspecified trimester; D64.9 Anemia, unspecified; Z3A.00 Weeks of gestation of pregnancy not specified
CPT/HCPCS: 36415; 82950; 85025; 86592; 86703; 86762; 86803; 86850; 86900; 86901; 87340

== ENCOUNTER 2019-08-14 14:00 | Outpatient (RCR) | payer MEDICARE, SELFPAY ==
[2019-07-16 16:00] VITALS: BMI 36.1
== END 2019-08-21 23:59 ==
LOC: NS 14:00
PROVIDERS: PCP Internal Medicine; Visit Provider Obstetrics & Gynecology
DX: Z71.3 Dietary counseling and surveillance (principal); O24.419 Gestational diabetes mellitus in pregnancy, unspecified control; O99.210 Obesity complicating pregnancy, unspecified trimester
CPT/HCPCS: 97802

== ENCOUNTER 2019-10-27 16:25 | Outpatient (CLI) | payer MEDICARE, MEDICAID, SELFPAY ==
[2019-10-25 10:57] VITALS: BMI 37.1
[2019-10-27 16:58] VITALS: BP 119/65; PULSE 89; TEMP 36.9
[2019-10-27 17:06] VITALS: BMI 37.2
[2019-10-27 17:06] LABS: Mucous, Urine 0 SEEN /hpf (<or=2+); Red Blood Cells-Urine 0 SEEN /hpf (0-5)
[2019-10-27 17:07] LABS: Color, Urine Straw (Yellow); Glucose, Dipstick Normal (Normal); Ketone-Dipstick Negative (Negative); Leukocyte Esterase-Dipstick 100 /ul (Negative); Nitrite-Dipstick Negative (Negative); Occult Blood-Urine Negative /ul (Negative); Protein-Dipstick Negative (Negative); Urine Bilirubin Dipstick Negative (Negative); Urine Clarity Cloudy (Clear); Urine Urobilinogen Normal (Normal)
[2019-10-27 17:21] LABS: Squamous Epithelial Cells - UA 5-10 SEEN /hpf (5-10); White Blood Cells 0-5 SEEN /hpf (0-5)
[2019-10-27 17:22] LABS: Bacteria 1+ /hpf (None Seen)
--- NOTE | 2019-10-27 18:12 | OB.TRI.HP_ITS ---
- Problem List (1) Lower abdominal pain Status: Acute History of Present Illness Date of Service: 10/27/19 Was patient seen by the physician?: Yes Reason For Visit: CRAMPING Date of Service: 10/27/19 Final CHRIS: 02/19/20 Final CHRIS Source: US <20 weeks Gestational age: 23 Weeks and 4 Days History of Present Illness: 29yo @ 23 4/7 weeks gestation with c/o lower abdominal pain since 4pm. Pain started suddenly and awakened her from sleep. It is intermittent and cramping without precipitation. She has not taken anything for the pain. She is uncertain if it is contractions. + FM, no leaking of fluid or vaginal bleeding. Home Medications reviewed Allergies naproxen Adverse Reaction (Verified 10/25/19 10:57) Other varenicline tartrate [From Chantix] Adverse Reaction (Verified 10/25/19 10:57) Other - Pertinent Past Medical History Medical History: Past Medical History (Last Updated 10/27/19 @ 18:[address] Marjorie Davila MD) Depression with anxiety (Chronic) Scoliosis (Chronic) Asthma (Chronic) Spontaneous 2019 16w placenta previa - extramural SAB with placental abruption Preeclampsia Acute appendicitis (Resolved) Chronic back pain (Resolved) Foot pain, bilateral (Resolved) GERD (gastroesophageal reflux disease) (Resolved) IBS (irritable bowel syndrome) (Resolved) Irregular periods (Resolved) Obesity (Resolved) Right lower quadrant abdominal pain of unknown etiology (Resolved) Viral syndrome (Resolved) Surgical History: Past Surgical History (Last Reviewed 09/24/19 @ 13:37 by Colleen Mcdonnell) delivery delivered H/O adenoidectomy H/O knee surgery History of hip surgery right History of tonsillectomy Hx of breast reduction, elective S/P laparoscopic appendectomy Onset Date: ~05/06/18 S/P right knee arthroscopy 05/06/17 Laboratory Studies: Laboratory Tests 10/27/19 Range/Units 17:00 Urine Color Straw (Yellow) Urine Clarity Cloudy (Clear) Urine pH 7.0 (5.0 - 8.0) Ur Specific [place] 1.010 (1.002-1.030) Urine Protein Negative (Negative) mg/dl Urine Glucose (UA) Normal (Normal) mg/dl Urine Ketones Negative (Negative) mg/dl Urine Occult Blood Negative (Negative) /ul Urine Nitrite Negative (Negative) Urine Bilirubin Negative (Negative) mg/dL Urine Urobilinogen Normal (Normal) mg/dl Ur Leukocyte Esterase 100 H (Negative) /ul Urine RBC 0 SEEN (0-5) /hpf Urine WBC 0-5 SEEN (0-5) /hpf Ur Squamous Epith Cells 5-10 SEEN (5-10) /hpf Urine Bacteria 1+ (None Seen) /hpf Urine Mucus 0 SEEN (<or=2+) /hpf Review of Systems Constitutional: Denies: Chills, Fever Eyes: Denies: Vision Change HEENT: Denies: Head Aches, Sore Throat Cardiovascular: Denies: Chest Pain Respiratory: Denies: Cough, Shortness of Breath Gastrointestinal: Reports: Abdominal Pain, Nausea. Denies: Diarrhea, Vomiting Genitourinary: Denies: Dysuria, Frequency, Hematuria Gynecological: Denies: Vaginal bleeding Musculoskeletal: Reports: Back Pain, - - reports this is sciatica Physical Exam Vitals: Vital Signs Temp Pulse BP 98.4 F 89 119/65 10/27/19 16:58 10/27/19 16:58 10/27/19 16:58 General: Alert, Oriented x3, Cooperative, No apparent distress, - - appears uncomfortable HEENT: Atraumatic, Normocephalic Cardiovascular: Regular rate, Regular Rhythm, Normal S1, Normal S2, No murmurs Lungs: Clear to auscultation, Normal air movement Abdomen: Soft, Non Tender, Non-Distended, Gravid, - - No CVA tenderness or suprapubic tenderness Extremities:: No edema Neurological: Neuro grossly intact 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 COMMISSIONER: Normal external genitalia Estimated gestational size: Appropriate for gestational size Presentation: Unable to assess Cervix Dilation (cm): 0 Station: -3 Effacement (%): 0 NST - FHR Rate Baby A Baseline: 150 Variability:: Minimal Accelerations:: None Decelerations:: Variable NST Reactive:: Appropriate for gestational age FHR Category:: Category II Uterine Activity:: 0/10 Impression/Plan 29yo at 23 4/7wga with lower abdominal pain, dfdx false labor, UTI -FFN pending -Pt given button to record timing of painfulness on monitor -U/A - possible UTI, however possible contamination - will send for culture. Prior hx E. faecalis UTI. -If FFN positive, plan for cervical length. If FFN neg will d/c home with precautions and empiric treatment for UTI. Office Visits / Consults: [id number] OV L3 New
[2019-10-27 19:23] LABS: Fetal Fibronectin Negative
[2019-10-27 20:03] VITALS: PULSE 73; TEMP 36.7; O2SAT 100
[2019-10-27 20:04] VITALS: BP 121/55; PULSE 75
[2019-10-27] MEDS: Nitrofurantoin Macrocrystals 100 MG Capsule PO (20:06)
== END 2019-10-27 20:20 | disposition home or self-care (01) ==
LOC: WPOUT 16:36 → OBT 16:37
PROVIDERS: Obstetrics & Gynecology; PCP Internal Medicine; Referring Provider Obstetrics & Gynecology; Visit Provider Obstetrics & Gynecology
DX: O47.02 False labor before 37 completed weeks of gestation, second trimester (principal); O23.42 Unspecified infection of urinary tract in pregnancy, second trimester; O99.89 Other specified diseases and conditions complicating pregnancy, childbirth and the puerperium; M41.9 Scoliosis, unspecified; O99.512 Diseases of the respiratory system complicating pregnancy, second trimester; J45.909 Unspecified asthma, uncomplicated; Z3A.23 23 weeks gestation of pregnancy
CPT/HCPCS: 59025; 59050; 81001; 82731; 87086; 87088; 99218; J7040; G0378

== ENCOUNTER → 2019-11-22 10:11 | Outpatient (CLI) | payer MEDICARE, MEDICAID, SELFPAY ==
[2019-11-16 16:09] VITALS: BMI 37.2
[2019-11-22 10:45] LABS: Absolute Lymphocyte Count 1.69 X10^3/uL (0.83-4.51); Absolute Neutrophil Count 4.9 X10^3/uL (2.0-7.7); Basophil# 0.01 X10^3/uL; Basophil% 0.1 % (0-1); Eosinophil# 0.03 X10^3/uL; Eosinophils% 0.4 % (0-5); Hematocrit 28.8 % (37-47); Hemoglobin 9.8 g/dL (12.0-15.0); Lymphocyte # 1.69 X10^3/ul (4.0); Mean Corpuscular Hgb 30.1 pg (27.0-32.0); Mean Corpuscular Volume 88.3 fL (81-99); Mean Platelet Vol. 9.3 fl (6.2-12.0); Monocyte# 0.43 X10^3/uL; Monocyte% 6.1 % (0-10); NRBC Flagged by Analyzer 0 % (0-5); Neutrophil # 4.85 X10^3/uL (2.7-7.7); Neutrophil % 69.1 % (47-70); Platelet Count 293 K/mm3 (150-450); RBC Distribution Width CV 12.2 % (11.6-14.6); RBC Distribution Width SD 38.9 fl (35.1-43.9); Red Blood Count 3.26 M/mm3 (4.2-5.4)
[2019-11-22 11:44] LABS: Ferritin 6 ng/mL (8-252); Iron Binding Capacity,Total 472 ug/dL (250-450)
[2019-11-22 12:54] LABS: Hemoglobin A1c 4.8 % (3.8-5.6)
[2019-11-22 15:20] LABS: Vitamin B12 265 pg/mL (211-911)
[2019-11-23 14:58] LABS: Transferrin 373 mg/dL (192-364)
== END ==
PROVIDERS: PCP Internal Medicine; Referring Provider Obstetrics & Gynecology; Visit Provider Obstetrics & Gynecology
DX: O99.019 Anemia complicating pregnancy, unspecified trimester (principal); D64.9 Anemia, unspecified; O24.419 Gestational diabetes mellitus in pregnancy, unspecified control; O09.90 Supervision of high risk pregnancy, unspecified, unspecified trimester; Z3A.00 Weeks of gestation of pregnancy not specified
CPT/HCPCS: 36415; 82607; 82728; 82746; 83036; 83550; 84466; 85025

== ENCOUNTER → 2019-11-29 13:27 | Outpatient (CLI) | payer MEDICARE, MEDICAID, SELFPAY ==
[2019-11-22 10:30] VITALS: BMI 37.2
[2019-11-29 13:42] VITALS: BP 112/59; PULSE 89; RESP 16; TEMP 36.6; O2SAT 96; BMI 37.2
[2019-11-29] MEDS: 0.9% NaCl Peripheral Flush Adult/Peds IV (13:54)
[2019-11-29] MEDS: 0.9% NaCl IVPB Med Flush (250 mL) 15 ML IV (13:54)
[2019-11-29 15:52] VITALS: BP 106/58; PULSE 79; RESP 16; TEMP 36.4; O2SAT 98
== END ==
PROVIDERS: PCP Internal Medicine; Referring Provider Obstetrics & Gynecology; Visit Provider Obstetrics & Gynecology
DX: O99.019 Anemia complicating pregnancy, unspecified trimester (principal); D64.9 Anemia, unspecified; Z3A.00 Weeks of gestation of pregnancy not specified
CPT/HCPCS: 96365; 96366; J1756; J7050; A4216

== ENCOUNTER → 2019-12-07 07:42 | Outpatient (CLI) | payer MEDICARE, MEDICAID, SELFPAY ==
[2019-11-29 13:42] VITALS: BMI 37.2
[2019-11-29 16:21] VITALS: BMI 37.2
[2019-12-07 08:04] VITALS: BP 119/69; PULSE 92; RESP 14; O2SAT 98; BMI 36.2
[2019-12-07] MEDS: 0.9% NaCl IVPB Med Flush (250 mL) 15 ML IV (08:27)
[2019-12-07] MEDS: 0.9% NaCl Peripheral Flush Adult/Peds IV (08:27)
[2019-12-07 10:34] VITALS: BP 109/67; PULSE 78; RESP 16; O2SAT 99
== END ==
PROVIDERS: PCP Internal Medicine; Referring Provider Obstetrics & Gynecology; Visit Provider Obstetrics & Gynecology
DX: O99.019 Anemia complicating pregnancy, unspecified trimester (principal); Z3A.00 Weeks of gestation of pregnancy not specified; D64.9 Anemia, unspecified
CPT/HCPCS: 96365; 96366; J1756; J7050; A4216

== ENCOUNTER → 2019-12-10 17:19 | Outpatient (CLI) | payer MEDICARE, MEDICAID, SELFPAY ==
[2019-12-10 16:00] VITALS: BMI 36.2
== END ==
PROVIDERS: PCP Internal Medicine; Visit Provider Obstetrics & Gynecology
DX: R30.0 Dysuria (principal); O99.019 Anemia complicating pregnancy, unspecified trimester; Z3A.00 Weeks of gestation of pregnancy not specified
CPT/HCPCS: 87086; 87088

== ENCOUNTER → 2019-12-14 07:56 | Outpatient (CLI) | payer MEDICARE, MEDICAID, SELFPAY ==
[2019-11-29 13:42] VITALS: BMI 37.2
[2019-12-10 16:00] VITALS: BMI 36.2
[2019-12-14 08:12] VITALS: BP 117/79; PULSE 90; RESP 16; TEMP 36.6; O2SAT 96; BMI 37.8
[2019-12-14] MEDS: 0.9% Saline Lock 10 ML Syringe IV (08:37)
[2019-12-14 10:22] VITALS: BP 116/65; PULSE 70
== END ==
PROVIDERS: PCP Internal Medicine; Referring Provider Obstetrics & Gynecology; Visit Provider Obstetrics & Gynecology
DX: O99.019 Anemia complicating pregnancy, unspecified trimester (principal); D64.9 Anemia, unspecified; Z3A.00 Weeks of gestation of pregnancy not specified
CPT/HCPCS: 96365; 96366; J1756; J7050; A4216

== ENCOUNTER → 2019-12-27 11:49 | Outpatient (CLI) | payer MEDICARE, MEDICAID, SELFPAY ==
[2019-12-27 11:13] VITALS: BMI 37.8
[2019-12-27 12:10] LABS: Absolute Lymphocyte Count 1.52 X10^3/uL (0.83-4.51); Absolute Neutrophil Count 4.6 X10^3/uL (2.0-7.7); Basophil# 0.02 X10^3/uL; Basophil% 0.3 % (0-1); Eosinophil# 0.01 X10^3/uL; Eosinophils% 0.2 % (0-5); Hematocrit 30.4 % (37-47); Hemoglobin 10.2 g/dL (12.0-15.0); Lymphocyte # 1.52 X10^3/ul (4.0); Lymphocyte % 23.3 % (19-41); Mean Corp Hgb Conc 33.6 g/dL (32-36); Mean Corpuscular Hgb 30.1 pg (27.0-32.0); Mean Corpuscular Volume 89.7 fL (81-99); Mean Platelet Vol. 9.4 fl (6.2-12.0); Monocyte# 0.41 X10^3/uL; Monocyte% 6.3 % (0-10); NRBC Flagged by Analyzer 0 % (0-5); Neutrophil # 4.55 X10^3/uL (2.7-7.7); Neutrophil % 69.6 % (47-70); Platelet Count 221 K/mm3 (150-450); RBC Distribution Width CV 13.6 % (11.6-14.6); RBC Distribution Width SD 43.9 fl (35.1-43.9); Red Blood Count 3.39 M/mm3 (4.2-5.4); White Blood Count 6.5 K/mm3 (4.4-11.0)
== END ==
PROVIDERS: PCP Internal Medicine; Referring Provider Nurse Practitioner Women's Health; Visit Provider Nurse Practitioner Women's Health
DX: N39.0 Urinary tract infection, site not specified (principal)
CPT/HCPCS: 36415; 85025

== ENCOUNTER 2020-01-25 00:20 | Outpatient (CLI) | payer MEDICARE, MEDICAID, SELFPAY ==
[2020-01-21 19:28] VITALS: BMI 37.8
[2020-01-25 00:32] VITALS: BMI 37.5
[2020-01-25 00:49] VITALS: BP 134/78; PULSE 86; TEMP 36.6; O2SAT 97
[2020-01-25 01:37] LABS: ROM Internal Control Test YES-OK TO RESULT pt. (Internal QC); ROM Patient Test Negative (Negative)
[2020-01-25] MEDS: Ondansetron ODT 4 MG Tablet PO (02:27)
[2020-01-25 02:56] LABS: Bedside Glucose 88 mg/dL (70-110)
--- NOTE | 2020-01-31 14:03 | OB.TRI.PN ---
Progress Notes Date of Service: 01/25/20 Progress Note: patient seen for possible labor. no cervical dilation and no regular ctx. dc home labor precautions Laboratory Studies: Laboratory Tests 01/25/20 01/25/20 Range/Units 01:49 01:07 Vag Amniotic Fld Detect Negative (Negative) POC Glucose 88 (70-110) mg/dL
== END 2020-01-25 03:20 | disposition home or self-care (01) ==
LOC: WPOUT 00:29 → OBT 00:30
PROVIDERS: PCP Internal Medicine; Visit Provider Obstetrics & Gynecology
DX: O47.9 False labor, unspecified (principal); O09.90 Supervision of high risk pregnancy, unspecified, unspecified trimester; Z3A.00 Weeks of gestation of pregnancy not specified
CPT/HCPCS: 59025; 59050; 82962; 84112; 87081; 99218; G0378

== ENCOUNTER 2020-01-31 14:40 | Outpatient (CLI) | payer MEDICARE, MEDICAID, SELFPAY ==
[2020-01-31 13:58] VITALS: BMI 37.5
[2020-01-31 15:20] VITALS: BMI 39.5
[2020-01-31] MEDS: Metoclopramide 10 MG Tablet PO (16:06)
[2020-01-31 16:30] LABS: AST(SGOT) 28 U/L (15-37); Alanine Aminotransfer ALT/SGPT 18 U/L (13-56); Creatinine, Serum 0.53 mg/dL (0.55-1.02); EST Glomerular Filtration Rate 143 mL/min (>60); Est Glom Filt Rate - Afr Amer 173 mL/min (>60); Estimated Creatinine Clearance 118.18 ml/min
[2020-01-31 16:47] LABS: Hematocrit 31.4 % (37-47); Hemoglobin 10.8 g/dL (12.0-15.0); Mean Corp Hgb Conc 34.4 g/dL (32-36); Mean Corpuscular Hgb 30.3 pg (27.0-32.0); Mean Platelet Vol. 10.5 fl (6.2-12.0); Platelet Count 213 K/mm3 (150-450); RBC Distribution Width CV 12.8 % (11.6-14.6); RBC Distribution Width SD 40.5 fl (35.1-43.9); Red Blood Count 3.57 M/mm3 (4.2-5.4); White Blood Count 5.6 K/mm3 (4.4-11.0)
[2020-01-31] MEDS: Acetaminophen 500 MG Tablet 1000 MG PO (16:57)
[2020-01-31 17:42] LABS: Partial Thromboplast Time 25.4 Seconds (24.1-36.2); Prothrombin Time (Protime)PT. 12.5 SECONDS (11.7-14.9)
--- NOTE | 2020-01-31 19:34 | OB.TRI.NOTE ---
- Problem List (1) Transient hypertension of in third trimester Status: Acute Comment: Seen in triage 01/30. BP elevated in office but nl in triage. Labs negative. Plan BP check Tuesday. History of Present Illness Date of Service: 01/31/20 Was patient seen by the physician?: Yes Reason For Visit: ELIVATED BLOOD LEVELS Date of Service: 01/31/20 Final CHRIS: 02/19/20 Final CHRIS Source: US <20 weeks Gestational age: 37 Weeks and 2 Days History of Present Illness: Patient is a 29-year-old G3, P1 at 37 weeks 2 days gestation who presents to OB triage for headache and elevated blood pressures. Blood pressure was elevated in the office in the 150s over 90s. Since arrival in triage all blood pressures have been normal. She also reports a headache that is been present throughout the day today. She tried taking Tylenol this morning without relief. Denies vision changes, chest pain, shortness of breath, lightheadedness, dizziness, right upper quadrant or epigastric pain. Allergies naproxen Adverse Reaction (Verified 01/31/20 13:57) Other night sweats, fever, and hives varenicline tartrate [From Chantix] Adverse Reaction (Verified 01/31/20 13:57) Other night sweats, fever, and hives - Pertinent Past Medical History Medical History: Past Medical History (Last Reviewed 01/31/20 @ 13:57 by Sola Johansen) Depression with anxiety (Chronic) no meds, counseling encouraged, stable Scoliosis (Chronic) Asthma (Chronic) stable Preeclampsia Spontaneous 2018 16w placenta previa - extramural SAB with placental abruption Acute appendicitis (Resolved) Chronic back pain (Resolved) Foot pain, bilateral (Resolved) GERD (gastroesophageal reflux disease) (Resolved) IBS (irritable bowel syndrome) (Resolved) Irregular periods (Resolved) Obesity (Resolved) Right lower quadrant abdominal pain of unknown etiology (Resolved) Viral syndrome (Resolved) Surgical History: Past Surgical History (Last Reviewed 01/31/20 @ 13:57 by Sola Johansen) delivery delivered H/O adenoidectomy H/O knee surgery History of hip surgery right History of tonsillectomy Hx of breast reduction, elective S/P laparoscopic appendectomy Onset Date: ~05/06/18 S/P right knee arthroscopy 12/15/17 Laboratory Studies: Laboratory Tests 01/31/20 01/31/20 01/31/20 Range/Units 16:50 16:15 15:40 WBC 5.6 Corrected WBC RBC 3.57 L Hgb 10.8 L Hct 31.4 L MCV 88.0 MCH 30.3 MCHC 34.4 RDW Std Deviation 40.5 RDW Coeff of Ever 12.8 Plt Count 213 MPV 10.5 Diff Path Review PT 12.5 INR 1.0 APTT 25.4 Creatinine 0.53 L (0.55-1.02) mg/dL Estim Creat Clear Calc 118.18 ml/min Est GFR (MDRD) Af Amer 173 (>60) mL/min Est GFR (MDRD) Non-Af 143 (>60) mL/min Uric Acid 5.0 (2.6-6.0) mg/dL AST 28 (15-37) U/L ALT 18 (13-56) U/L 01/31/20 01/31/20 Range/Units 15:40 15:40 WBC Cancelled Corrected WBC Cancelled RBC Cancelled Hgb Cancelled Hct Cancelled MCV Cancelled MCH Cancelled MCHC Cancelled RDW Std Deviation Cancelled RDW Coeff of Ever Cancelled Plt Count Cancelled MPV Cancelled Diff Path Review Cancelled PT Cancelled INR Cancelled APTT Cancelled Creatinine (0.55-1.02) mg/dL Estim Creat Clear Calc ml/min Est GFR (MDRD) Af Amer (>60) mL/min Est GFR (MDRD) Non-Af (>60) mL/min Uric Acid (2.6-6.0) mg/dL AST (15-37) U/L ALT (13-56) U/L Review of Systems Constitutional: Reports: Fatigue. Denies: Chills, Fever Eyes: Denies: Blurred vision HEENT: Reports: Head Aches Cardiovascular: Reports: Edema. Denies: Chest Pain, Light Headedness, Syncope Respiratory: Denies: Cough, Shortness of Breath Gastrointestinal: Denies: Abdominal Pain, Nausea, Vomiting Genitourinary: Denies: Dysuria, Hesitancy, Retention Gynecological: Denies: Breast symptoms, Vaginal bleeding, Vaginal discharge, Vaginal itching Neurological: Reports: Headaches. Denies: Blurred vision, Double vision, Tingling Psychiatric: Denies: Anxiety, Depression Physical Exam General: Alert, Oriented x3, No apparent distress HEENT: Atraumatic, Normocephalic Cardiovascular: Regular rate Lungs: Clear to auscultation Abdomen: Soft, Non Tender, Non-Distended, Gravid Extremities:: Other - trace pedal edema Neurological: Cranial nerves II-XII grossly intact, Deep Tendon Reflexes 2+/4 and Symmetrical, Neuro grossly intact GRAIN BROKER AND MARKET OPERATOR: Normal external genitalia. Negative for: Vulvar lesions Estimated gestational size: Appropriate for gestational size Presentation: Cephalic NST - FHR Rate Baby A Baseline: 140 Variability:: Moderate Accelerations:: 15 x 15 Decelerations:: None NST Reactive:: Yes FHR Category:: Category I Uterine Activity:: irritability Impression/Plan 29-year-old G3, P1 at 37 weeks 2 days seen in OB triage for elevated blood pressures. Patient had a mild range blood pressure in the office, however blood pressure normal consistently throughout triage course. Preeclampsia labs negative. Given Reglan and Tylenol for headache. Slight relief in headache. Discussed that with normal blood pressures no indication for admission at this time. Recommended taking Benadryl if headache persistent at home. Recommended calling the office if she continues to experience headaches. Recommended notifying the office tomorrow if she continues to have symptoms as we will plan for a blood pressure check at this time. Otherwise we will plan for BP check on Tuesday. Return precautions reviewed with patient and she voices understanding. Multi Select Codes - Visit Charges Office Visit/Consults: [id number] OV L3 Est - Urinary/Genital Urinary/Genital CPT Codes: 67216-09 non-stress test Interp
== END 2020-01-31 17:30 | disposition home or self-care (01) ==
PROVIDERS: PCP Internal Medicine; Referring Provider Obstetrics & Gynecology; Visit Provider Advanced Practice Midwife
DX: O26.893 Other specified pregnancy related conditions, third trimester (principal); R03.0 Elevated blood-pressure reading, without diagnosis of hypertension; R51 Headache; R60.0 Localized edema; O99.89 Other specified diseases and conditions complicating pregnancy, childbirth and the puerperium; M41.9 Scoliosis, unspecified; O99.513 Diseases of the respiratory system complicating pregnancy, third trimester; J45.909 Unspecified asthma, uncomplicated; Z3A.37 37 weeks gestation of pregnancy; O99.019 Anemia complicating pregnancy, unspecified trimester; D64.9 Anemia, unspecified
CPT/HCPCS: 36415; 59025; 59050; 82565; 82570; 84156; 84450; 84460; 84550; 85027; 85610; 85730; 99218; G0378

== ENCOUNTER → 2020-01-31 | Outpatient (CLI) | payer MEDICARE, MEDICAID, SELFPAY ==
[2020-01-31 13:58] VITALS: BMI 37.5
[2020-01-31 15:27] LABS: Protein, Urine (Random) 8.5 mg/dL (<11.9); Protein:Creat Ratio 290 mg/g CRE (0-200)
== END | disposition home or self-care (01) ==
LOC: LABSPEC 15:09
PROVIDERS: PCP Internal Medicine; Visit Provider Obstetrics & Gynecology
DX: O99.019 Anemia complicating pregnancy, unspecified trimester (principal); D64.9 Anemia, unspecified; Z3A.00 Weeks of gestation of pregnancy not specified
CPT/HCPCS: 82570; 84156

== ENCOUNTER → 2020-02-06 | Outpatient (CLI) | payer MEDICARE, MEDICAID, SELFPAY ==
[2020-02-06 12:43] VITALS: BMI 39.5
== END | disposition home or self-care (01) ==
LOC: LABSPEC 15:59
PROVIDERS: PCP Internal Medicine; Visit Provider Obstetrics & Gynecology
DX: N39.0 Urinary tract infection, site not specified (principal); R31.9 Hematuria, unspecified
CPT/HCPCS: 87086; 87088

== ENCOUNTER 2020-02-12 05:00 | Inpatient (IN) | payer MEDICARE, MEDICAID, SELFPAY ==
[2019-11-16 16:09] VITALS: BMI 37.2
[2020-02-08 10:36] VITALS: BMI 39.5
[2020-02-12] VITALS (18 sets, daily range): BP systolic 97–151; BP diastolic 49–77; PULSE 58–91; RESP 13–18; TEMP 36.4–37.1; O2SAT 95–100; BMI 38.2
[2020-02-12] MEDS: Lactated Ringers 1,000 ML 999 ML IV (05:30)
[2020-02-12 05:43] LABS: Absolute Lymphocyte Count 2.09 X10^3/uL (0.83-4.51); Absolute Neutrophil Count 3.7 X10^3/uL (2.0-7.7); Basophil# 0.03 X10^3/uL; Basophil% 0.5 % (0-1); Eosinophil# 0.02 X10^3/uL; Eosinophils% 0.3 % (0-5); Hematocrit 32.4 % (37-47); Hemoglobin 11.3 g/dL (12.0-15.0); Lymphocyte # 2.09 X10^3/ul (4.0); Lymphocyte % 33.2 % (19-41); Mean Corp Hgb Conc 34.9 g/dL (32-36); Mean Corpuscular Hgb 30.1 pg (27.0-32.0); Mean Corpuscular Volume 86.2 fL (81-99); Mean Platelet Vol. 11.1 fl (6.2-12.0); Monocyte% 6.3 % (0-10); NRBC Flagged by Analyzer 0 % (0-5); Neutrophil # 3.74 X10^3/uL (2.7-7.7); Neutrophil % 59.4 % (47-70); Platelet Count 264 K/mm3 (150-450); RBC Distribution Width CV 12.4 % (11.6-14.6); RBC Distribution Width SD 38.9 fl (35.1-43.9); Red Blood Count 3.76 M/mm3 (4.2-5.4); White Blood Count 6.3 K/mm3 (4.4-11.0)
[2020-02-12] MEDS: Acetaminophen 500 MG Tablet 1000 MG PO ×4 (05:49→23:43)
[2020-02-12 06:01] LABS: Bedside Glucose 76 mg/dL (70-110)
[2020-02-12] MEDS: Lactated Ringers 1,000 ML 150 ML IV (06:33)
[2020-02-12] MEDS: Sodium Citrate/Citric Acid 30 ML UDC PO (06:59)
[2020-02-12] MEDS: Cefazolin 2 GM in 0.9% Normal Saline 100 ML IV (07:24)
--- NOTE | 2020-02-12 07:46 | HP.PCM_ITS ---
- Problem List (1) Encounter for maternal care for low transverse scar from repeat delivery Status: Acute (2) Anemia affecting Status: Acute Qualifiers: Comment: IV iron therapy ordered repeat cbc after treatments (3) Asymptomatic bacteriuria during Status: Acute Comment: Macrobid [id number] culture mixed growth, contaminant. repeat culture PRN. (4) HPV test positive Status: Acute Comment: repeat pap PP (5) History of delivery Status: Acute Comment: RLTCS and ovarian cystectomy- scheduled 02/11 (6) History of spontaneous Status: Acute Comment: 16 week miscarriage, per MFM baby aspirin daily, weekly progesterone until 36 weeks. Asked about discontinuing [place] as MFM said this would be ok. Discussed that sudden discontinuation can increase risk of PTD, but as she will be 34 weeks she could consider stopping injections as she reports that they are adding to her anxiety. (7) Left ovarian cyst Status: Acute Comment: 7 cm plan removal at (8) Modified White class B pregestational diabetes mellitus Status: Acute Comment: ? preexisting, diagnosed in 1 tm. sees MFM. insulin controlled - only taking at night. weekly BPP with them and weekly nst here along with daily kick counts beginning @ 32 weeks (9) Obesity affecting Status: Acute Comment: s/p nutrition consult. discussed healthy weight gain. (10) Status: Acute Qualifiers: Comment: nipt, carrier, and ntd screening declined. nl echo after MFM Anatomy showed muscular VSD, eccentric cord insertion. Growth US normal on 10/24. (11) Recurrent UTI Status: Acute Comment: macrobid prophylaxis, didn't tolerate keflex (12) Supervision of high risk , antepartum Status: Acute Comment: PRR CHRIS 02/19/20 boy danish Rodrigez (lita- dec) boyfriend Gautam (not FOB) (13) Transient hypertension of in third trimester Status: Acute Comment: Seen in triage 01/30. BP elevated in office but nl in triage. Labs negative. Plan BP check Tuesday. (14) Asthma Status: Chronic Comment: stable (15) Depression with anxiety Status: Chronic Comment: no meds, counseling encouraged, stable (16) Scoliosis Status: Chronic History and Physical Date of Admission: 02/12/20 Intake Vital Signs 02/06/20 Height 5 ft 1 in 02/06/20 Weight: 211 lb 02/06/20 BMI 39.9 02/06/20 BP 126/78 H Intake Visit Reasons: 38WK OB / NST [employer] Required: No Is patient in pain?: No Allergies naproxen Adverse Reaction (Verified 02/06/20 12:43) Other varenicline tartrate [From Chantix] Adverse Reaction (Verified 02/06/20 12:43) Other Medications blood sugar diagnostic See Rx Instructions .ROUTE .MEDSUPPLY #120 ea 07/12/19 [Rx Confirmed 02/06/20] aspirin 81 mg tablet,delayed release 81 mg PO DAILY 08/07/19 [History Confirmed 02/06/20] Insulin NPH Human Isophane [Humulin N] 14 unit SUBCUT .bedtime 10/27/19 [History Confirmed 02/06/20] Pnv No.103/Folic/Om3s/Fish Oil [ Gummies] 1 ea PO DAILY 10/27/19 [History Confirmed 02/06/20] nitrofurantoin monohydrate/macrocrystals 100 mg capsule 100 mg PO ONCE #30 cap 12/19/19 [Rx Confirmed 02/06/20] cyclobenzaprine 10 mg tablet 10 mg PO Q6H PRN #30 tab 01/21/20 [Rx Confirmed 02/06/20] Last Menstral Period: 12/14/18 Zika: Zika virus screening: Negative : No PFSH PFSH Medical History Depression with anxiety (Chronic) Scoliosis (Chronic) Asthma (Chronic) Preeclampsia (Acute) Spontaneous (Acute) Acute appendicitis (Resolved) Chronic back pain (Resolved) Foot pain, bilateral (Resolved) GERD (gastroesophageal reflux disease) (Resolved) IBS (irritable bowel syndrome) (Resolved) Irregular periods (Resolved) Obesity (Resolved) Right lower quadrant abdominal pain of unknown etiology (Resolved) Viral syndrome (Resolved) Surgical History delivery delivered (Acute) H/O adenoidectomy (Acute) H/O knee surgery (Acute) History of hip surgery (Acute) History of tonsillectomy (Acute) Hx of breast reduction, elective (Acute) S/P laparoscopic appendectomy (Acute ~05/06/18) S/P right knee arthroscopy (Acute) Family History Mother Depression Aunt Breast cancer Grandmother Diabetes Uncle Hyperlipemia Menieres disease Depression Social History (Updated 02/06/20 @ 13:[address] 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 Date Name GA/Weeks Outcome Route Bth Weight Infant Gen Labor Lgth Anesthesia Del Locatn Provider FOB 04/19/12 Kika 39 live - full term C- section Female [facility] [place] 11/20/18 [place] spontaneous Female HPI 38WK OB / NST : Details: COLLIN APARICIO is a 29 year old who presents for routine OB visit. OB Visit CHRIS Calculator Estimated Delivery Date Method Current WG Current Estimate 02/19/20 LMP (Certain) 38w 1d Expected Delivery Route/Plan RLTCS and ovarian cystectomy: alivia 02/11 with GP : trying to breast feed, but unsure with prior breast reduction PPBC - OCPs Specific Issue/Plans flu vaccine: na tdap vaccine: given rhogam: na LARC form signed: declined movement and labor precautions reviewed. Problem list reviewed and updated with the most current plan of care details and appropriate orders placed. Relevant counseling for the gestational age provided. Continue routine care and follow up unless otherwise noted in visit notes/problem list details Initial Weight: 185 lb Date EGA Weight BP Urine Prot Glucose FHR FuHt Pres Dilation Effaced St Visit Note 07/16/19 8w 6d 194 lb (+9 lb) 124/66 160 SM_ no vb co lower abdominal cramping constipation. CL 5 cm and closed 08/23/19 14w 2d 186 lb 2 oz (+1 lb 2 oz) 120/68 Negative Negative 145 SM- no vb lof good fm no regular ctx. FBS elevated. will start nighttime NPH and fu with mfm in 2 weeks. call with BS in 1 week 09/24/19 18w 6d 187 lb (+2 lb) 116/68 Negative Negative 142 0 MH-work in for cramping X 3 days. Edema of feet previously-none today. Cervix closed. No VB, LOF. Radha today. Reassured. Anatomy us in 3 days 10/05/19 20w 3d 187 lb (+2 lb) 104/70 Negative Negative 145 SM- no vb lof some fm BS controlled by MFM on insulin 11/02/19 24w 3d 197 lb 8 oz (+12 lb 8 oz) 120/68 Negative Negative 140 24 SM- no lof good fm, low back pain some lower pelvic pain, cervix note dilated when evaluted over weekend, had spotting once after check and none now. BS well controlled. no cardiac abnormalities per patient, obtain echo report. 11/16/19 26w 3d 197 lb (+12 lb) 122/74 Negative Negative 140 27 SM- no vb lof good fm irregular ctx. 11/29/19 28w 2d 199 lb 6 oz (+14 lb 6 oz) 118/76 Negative Negative 140 28 SM- no vb lof good fm no regular ctx discussed scheduling her cs, patient ot decide. BS well controlled with MFM 12/10/19 29w 6d 200 lb 6 oz (+15 lb 6 oz) 126/68 Negative Negative 145 30 0 SM-no vb lof good SM-no vb lof good fm co irregular ctx and low back pain, suprapubic pain x 4 days, no fevers. some increased discharge. cervix closed, urine culture and vaginal swabs sent for evaluation. 12/14/19 30w 3d 201 lb (+16 lb) 128/80 145 SM- no vb lof good fm no regular ctx but low back pain 12/21/19 31w 3d 202 lb (+17 lb) Negative Negative 140 32 SM- BS well controlled, starting antenatl testing next week. no vb lof good fm no regular ctx 12/27/19 32w 2d 201 lb 6 oz (+16 lb 6 oz) 118/70 Negative 1000 g/dL 33 MH-No VB, LOF. Good FM. BS well controlled. NST: MH-No VB, LOF. Good FM. BS well controlled. NST:reactive. CBC 01/04/20 33w 3d 206 lb (+21 lb) 128/70 130 GP - no LOF/VB/DFM/Ctx. BGTs controlled. NST reactive. 01/11/20 34w 3d 205 lb 6 oz (+20 lb 6 oz) 136/70 Negative Negative 130 Sm- no vb lof good fm no regular ctx 01/17/20 35w 2d 205 lb 4 oz (+20 lb 4 oz) 116/72 Negative Negative 140 SM- no vb lof good fm no regular ctx SM- no vb lof good fm no regular ctx but having hip pain and pelvic pressure, cramping. bs wel controlled. planning delivery here discussed 01/25/20 36w 3d 207 lb (+22 lb) 120/70 Negative Negative 130 Cephalic 1 50 -3 GP - no LOF, VB, DFM. Irr egular ctx. Seen in triage last night for r/o ROM and labor. GP - no LOF, VB, DFM. Irregular ctx. Seen in triage last night for r/o ROM and labor. GBS done today. 01/31/20 37w 2d 210 lb 6 oz (+25 lb 6 oz) 152/88 Negative Negative 130 GP - BP elevated in office and reported DASH. Sent to triage for eval. GP - BP elevated in office and reported DASH. Sent to triage for eval. No ctx, LOF, VB, DFM. 02/06/20 38w 1d 211 lb (+26 lb) 126/78 Negative Negative 130 GP - No LOF, VB, ctx. DFM this am. NST reactive. RCD next Tuesday - r/b/i/a to discussed with patient. ACOG First Trimester First Trimester: Desire for , Alcohol, Tobacco Cessation, Illicit/Recreational Drug/Substance Use, Intimate Partner Violence, Barriers to care, Unstable Housing, Communication Barriers, Environmental/Work Hazards, Anticipated Course of Care, Toxoplasmosis Precations, Use of Any medications, Sexual activity, Exercise, Dental Care, Sauna/Hot tub use, Seat Belt use, Childbirth classes/Hospital facilities, Travel, Indications for US and Screening for Aneuploidy; discussed Diagnostics Diagnostics Diagnostics Hgb 10.8 g/dL (12.0-15.0) L 01/31/20 Hct 31.4 % (37-47) L 01/31/20 Details: HIV: Urine Culture: Sequential Screen: NIPT Screen: ROS ROS Const Reports system reviewed and no additional complaints, except as documented Card Reports system reviewed and no additional complaints, except as documented Resp Reports system reviewed and no additional complaints, except as documented GI Reports system reviewed and no additional complaints, except as documented, Reports nausea Reports system reviewed and no additional complaints, except as documented Musc Reports system reviewed and no additional complaints, except as documented all other systems reviewed and negative Exam Const General: cooperative, healthy appearing, comfortable, no acute distress, well developed, well groomed Nutritional Appearance: average body habitus, well nourished Orientation: alert, awake, oriented x3 HENMT Head: normal to inspection, normocephalic, atraumatic Eyes Pupils: PERRL, accommodation normal Resp Effort & Inspection: normal respiratory effort, able to speak in complete sentences, symmetric chest movement Cardio Rate: regular rate GI Palpation: soft, no guarding, no masses, nontender Skin General: no rashes or lesions noted, elasticity normal, turgor normal Neuro General: alert, awake, oriented x3 Cranial Nerves: CN's II-XI intact bilaterally, sense of smell intact, PERRL, accommodation normal, EOM intact bilaterally Speech: speech normal Gait: normal gait Psych Appearance: grossly normal, well kempt Mental Status: mental status grossly normal Mood: congruent mood Affect: normal affect Speech and Movement: speech and movement normal Attitude: cooperative Thought Process: normal Thought Content: normal Judgment: judgment good Office Procedures OB NST Non-Stress Test Indications for Monitoring: Yes diabetes Heart Rate Baseline: 130 Heart Rate Variability: moderate Movement: Present Heart Rate Accelerations: Present Decelerations: Absent Contractions: Absent Impression: Yes Reactive Non-Stress Test Results POC Urinalysis 2 Dip (Clinic) Office Urine Glucose Negative Last Edit by Bibi Cordero on 02/06/20 12:45 Office Urine Protein Negative Last Edit by Bibi Cordero on 02/06/20 12:45 Assessment & Plan Problems 1. Transient hypertension of in third trimester O13.3 Seen in triage 01/30. BP elevated in office but nl in triage. Labs negative. Plan BP check Tuesday. 2. Recurrent UTI N39.0 macrobid prophylaxis, didn't tolerate keflex 3. Modified White class B pregestational diabetes mellitus O24.319 ? preexisting, diagnosed in 1 tm. sees MFM. insulin controlled - only taking at night. weekly BPP with them and weekly nst here along with daily kick counts beginning @ 32 weeks 4. History of spontaneous Z87.59 16 week miscarriage, per MFM baby aspirin daily, weekly progesterone until 36 weeks. Asked about discontinuing [place] as MFM said this would be ok. Discussed that sudden discontinuation can increase risk of PTD, but as she will be 34 weeks she could consider stopping injections as she reports that they are adding to her anxiety. 5. Left ovarian cyst N83.202 7 cm plan removal at 6. Supervision of high risk , antepartum O09.90 PRR CHRIS 02/19/20 boy danish EDENILSON Grafartemio (lita-apr) boyfriend Gautam (not FOB) 7. 38 weeks gestation of Z3A.38 nipt, carrier, and ntd screening declined. nl echo after MFM Anatomy showed muscular VSD, eccentric cord insertion. Growth US normal on 10/24. 8. History of delivery Z98.891 RLTCS and ovarian cystectomy- scheduled 02/11 9. Asymptomatic bacteriuria during O99.89; R82.71 Macrobid [id number]-[id number] culture mixed growth, contaminant. repeat culture PRN. 10. HPV test positive repeat pap PP 11. Anemia affecting O99.019 IV iron therapy ordered repeat cbc after treatments 12. Obesity affecting O99.210 s/p nutrition consult. discussed healthy weight gain. 13. Depression with anxiety F41.8 no meds, counseling encouraged, stable 14. Scoliosis M41.9 15. Asthma J45.909 stable Plan Plan for RCD with ovarian cystectomy 02/11 - risks discussed with patient today GBS negative GDMA2 - will check BGT on arrival Orders Orders: OB NST Today O36.8190 POC Urinalysis 2 Dip (Clinic) Today Coding Level of Care Code Off vis,est,level 3 Diagnoses Transient hypertension of in third trimester O13.3 Recurrent UTI N39.0 Modified White class B pregestational diabetes mellitus O24.319 History of spontaneous Z87.59 Left ovarian cyst N83.202 Supervision of high risk , antepartum O09.90 38 weeks gestation of Z3A.38 ??Weeks of gestation: 38 weeks History of delivery Z98.891 Asymptomatic bacteriuria during O99.89; R82.71 HPV test positive Anemia affecting O99.019 Obesity affecting O99.210 Depression with anxiety F41.8 Scoliosis M41.9 Asthma J45.909 Additional Codes Non-Stress Test (69622) UPDATE- I have seen the patient and performed any clinically relevant updates to the history and physical exam. Pretty Hughes MD
[2020-02-12] MEDS: Oxytocin 30 units/NS 500 ml 30 UNITS/500 ML IV.SOLN 167 UNITS IV (09:00)
--- NOTE | 2020-02-12 09:14 | OP.PCM_ITS ---
Problem List (1) Encounter for maternal care for low transverse scar from repeat delivery Status: Acute (2) Anemia affecting Status: Acute Qualifiers: Comment: IV iron therapy ordered repeat cbc after treatments (3) Asymptomatic bacteriuria during Status: Acute Comment: Macrobid [id number]-Wowulz culture mixed growth, contaminant. repeat culture PRN. (4) HPV test positive Status: Acute Comment: repeat pap PP (5) History of delivery Status: Acute Comment: RLTCS and ovarian cystectomy- scheduled 02/11 (6) History of spontaneous Status: Acute Comment: 16 week miscarriage, per MFM baby aspirin daily, weekly progesterone until 36 weeks. Asked about discontinuing [place] as MFM said this would be ok. Discussed that sudden discontinuation can increase risk of PTD, but as she will be 34 weeks she could consider stopping injections as she reports that they are adding to her anxiety. (7) Left ovarian cyst Status: Acute Comment: 7 cm plan removal at (8) Modified White class B pregestational diabetes mellitus Status: Acute Comment: ? preexisting, diagnosed in 1 tm. sees MFM. insulin controlled - only taking at night. weekly BPP with them and weekly nst here along with daily kick counts beginning @ 32 weeks (9) Obesity affecting Status: Acute Comment: s/p nutrition consult. discussed healthy weight gain. (10) Status: Acute Qualifiers: Comment: nipt, carrier, and ntd screening declined. nl echo after MFM Anatomy showed muscular VSD, eccentric cord insertion. Growth US normal on 10/24. (11) Recurrent UTI Status: Acute Comment: macrobid prophylaxis, didn't tolerate keflex (12) Supervision of high risk , antepartum Status: Acute Comment: PRR CHRIS 02/19/20 boy danish Rodrigez (lita- dec) boyfriend Gautam (not FOB) (13) Transient hypertension of in third trimester Status: Acute Comment: Seen in triage 01/30. BP elevated in office but nl in triage. Labs negative. Plan BP check Tuesday. (14) Asthma Status: Chronic Comment: stable (15) Depression with anxiety Status: Chronic Comment: no meds, counseling encouraged, stable (16) Scoliosis Status: Chronic Delivery Final CHRIS: 02/19/20 Final CHRIS Source: LMP Gestational age: 39 Weeks and 0 Days Type of Anesthesia:: Spinal Special Medications: Ancef Date of Procedure: 02/12/20 Pre-Operative Diagnosis: IUP at 39 weeks gestation, Hx section, Gestational diabetes, suspected ovarian cyst Post-Operative Diagnosis: same, normal ovaries Indications: 29-year-old at 39 weeks gestation admitted for scheduled repeat section. The risks, benefits, indications, alternatives of the procedure were discussed with the patient including bleeding, infection, and visceral or vascular injury patient voiced understanding and agreed to proceed. Indications for : Repeat Elective Description of Procedure: The patient is a G2, P1 at 39 weeks gestation who presented for repeat C- section. Spinal anesthesia was placed without difficulty. [place] catheter was placed. The patient was placed in the dorsal supine position with leftward tilt. Patient was prepped and draped in the normal sterile fashion. Pfannenstiel skin incision was made with the scalpel and carried through to the underlying layer of fascia with the scalpel. Fascia was nicked in the midline and the incision extended laterally. The rectus bellies were dissected off superiorly and inferiorly with out complication both sharply and bluntly. The peritoneum was entered digitally. The incision was stretched and a low transverse uterine incision was made with the scalpel. The infant's head was delivered atraumatically followed by the anterior and posterior shoulders without complication the rest of the infant delivered. The cord was clamped and cut and the infant was handed off to awaiting nurse. The placenta was delivered spontaneously immediately following and was noted to be intact and have a three- vessel cord. The uterus was exteriorized cleared of all clots and debris, and the incision was closed in a double layer closure using #1 Monocryl. The ovaries and fallopian tubes were noted to be within normal limits. The uterus was returned to the maternal abdomen and gutters were cleared of all clots and debris. The peritoneum was closed with 3-0 Monocryl in a running fashion. Gloves were changed prior to fascial closure. Fascia was closed with 0 PDS in a running fashion. Subcutaneous tissue was copiously irrigated and the subcutaneous space was closed with 3-0 monocryl in a running fashion. The skin was closed with 3-0 Monocryl in a subcuticular fashion. Mepilex dressing was applied without complication. Patient was taken to recovery in stable condition. Amniotic Membrane Rupture Type: Artificial Amniotic Fluid Description: Clear Placenta Disposition: [facility] Drain: [place] to straight drain Fluids Replaced: 1100cc Cord Entanglement: None Cord Vessel Description: 3 Vessels Esitmated Blood Loss (ml): 700cc Gender: Male Delayed cord clamping: Yes Antibiotic Given: Ancef 2 grams IV x1 Pt instructed on risks of surgery: Bleeding, Anesthesia Risks, Infection, Need for Future C-Sections, Injury to surrounding structure(s) including bowel and bladder Complications: None - Admit VTE Documentation VTE Present on Admission: No VTE Pharm Prophylaxis ordered?: No Multi Select Codes - Urinary/Genital Urinary/Genital CPT Codes: 28415 delivery+ Care([facility])
[2020-02-12 10:31] LABS: Bedside Glucose 72 mg/dL (70-110)
[2020-02-12] MEDS: Senna/Docusate Sodium 1 Tablet PO (11:56)
[2020-02-12] MEDS: Lactated Ringers 1,000 ML 100 ML IV (11:58)
[2020-02-12] MEDS: Ketorolac 30 MG/ML Syringe IV ×2 (14:06→20:46)
[2020-02-12] MEDS: 0.9% Saline Lock 10 ML Syringe IV (20:47)
[2020-02-13] MEDS: 0.9% Saline Lock 10 ML Syringe IV ×3 (02:40→13:50)
[2020-02-13] MEDS: Ketorolac 30 MG/ML Syringe IV ×2 (02:40→08:39)
[2020-02-13 02:58] VITALS: BP 132/57; RESP 18; TEMP 36.3; O2SAT 99
[2020-02-13] MEDS: Acetaminophen 500 MG Tablet 1000 MG PO ×3 (05:50→18:07)
[2020-02-13 06:06] LABS: Hematocrit 27.1 % (37-47); Hemoglobin 9.3 g/dL (12.0-15.0); Mean Corp Hgb Conc 34.3 g/dL (32-36); Mean Corpuscular Hgb 30.2 pg (27.0-32.0); Mean Platelet Vol. 10.4 fl (6.2-12.0); Platelet Count 188 K/mm3 (150-450); RBC Distribution Width CV 12.8 % (11.6-14.6); RBC Distribution Width SD 40.9 fl (35.1-43.9); Red Blood Count 3.08 M/mm3 (4.2-5.4); White Blood Count 7.3 K/mm3 (4.4-11.0)
[2020-02-13 07:25] VITALS: BP 149/79; PULSE 76; RESP 16; TEMP 36.4; O2SAT 99
[2020-02-13 07:45] VITALS: PULSE 76; RESP 16; O2SAT 99
[2020-02-13 07:46] LABS: Bedside Glucose 73 mg/dL (70-110)
--- NOTE | 2020-02-13 07:48 | PCM.PN.OB ---
Patient Problems: Active and Suspected Problems (Last Reviewed 02/08/20 @ 10:36 by Yolanda Key) Encounter for maternal care for low transverse scar from repeat delivery (Acute) Subjective: Patient doing well without complaints. Pain controlled. Tolerating PO. Has been up to chair. Voiding without difficulty. Bottle feeding well. Denies chest pain, shortness of breath, calf pain/swelling, fevers, chills, lightheadedness. - Physical Exam Vitals/I&O's: Vital Signs Temp Pulse Resp BP Pulse Ox 97.5 F L 76 16 149/79 H 99 02/13/20 07:25 02/13/20 07:25 02/13/20 07:25 02/13/20 07:25 02/13/20 07:25 Oxygen Delivery Method Room Air Weight: 209 lb 7.026 oz Body Mass Index (BMI) 38.2 Intake and Output for Last 24 Hours 02/11/20 02/12/20 02/13/20 23:59 23:59 23:59 Intake Total 2367.5 / 2367.5 Output Total 1375 / 1375 Balance 992.5 / 992.5 General: Alert, Oriented x3 Abdomen: Soft, Non-Distended, - - Appropriately tender. Dressing dry and intact Laboratory Results 02/12/20 10:21: POC Glucose 72 02/13/20 05:48: WBC 7.3, RBC 3.08 L, Hgb 9.3 L, Hct 27.1 L, MCV 88.0, MCH 30.2, MCHC 34.3, RDW Std Deviation 40.9, RDW Coeff of Ever 12.8, Plt Count 188, MPV 10.4 02/13/20 07:37: POC Glucose 73 Current Medications Acetaminophen (Tylenol) 1,000 mg PO Q6 [facility] Last Admin: 02/13/20 05:50 Dose: 1,000 mg Documented by: Bisacodyl (Dulcolax) 10 mg RECTAL UD PRN PRN Reason: If no BM Dextrose (D50w Syringe) 0 gm IV X1 PRN; Protocol PRN Reason: Hypoglycemia Glucagon () 1 mg IM .X1 PRN PRN Reason: Hypoglycemia Hydrocortisone (Hytone) 1 applic TOPICAL TID PRN PRN; Protocol PRN Reason: Discomfort Naloxone HCl 4 mg/ Dextrose 504 mls @ 0 mls/hr IV .Q0M PRN; Protocol PRN Reason: Respiratory depression Ibuprofen (Motrin) 600 mg PO Q6H [facility] Ketorolac Tromethamine (Toradol (Bkc)) 30 mg IV Q6H [facility] Stop: 02/13/20 08:31 Last Admin: 02/13/20 02:40 Dose: 30 mg Documented by: Methylergonovine Maleate (Methergine) 0.2 mg IM X1 PRN PRN Reason: Uterine Atony Naloxone HCl (Narcan) 0.02 mg IV Q1M PRN PRN Reason: RR <10 and pt unresponsive Ondansetron HCl (Zofran) 4 mg IV Q4H PRN PRN PRN Reason: Nausea Oxycodone HCl (Oxyir) 5 - 10 mg PO Q4H PRN PRN PRN Reason: Pain Score 4-10/10 Prochlorperazine Edisylate (Compazine Iv) 10 mg IV Q6H PRN PRN PRN Reason: NAUSEA Senna/Docusate Sodium (Senokot-S, Ivory-Colace) 1 - 2 tablet PO DAILY [facility] Last Admin: 02/12/20 11:56 Dose: 2 tablet Documented by: Simethicone (Mylicon) 80 mg PO [facility] PRN PRN Reason: Indigestion/stomach pain Sodium Chloride () 5 - 15 ml IV UD PRN PRN Reason: SALINE FLUSH Last Admin: 02/13/20 02:40 Dose: 10 ml Documented by: Medical Necessity - Tobacco Use Smoking Status: Former smoker Assessment/Plan All Active Problems (Last Reviewed 02/08/20 @ 10:36 by Yolanda Key) Encounter for maternal care for low transverse scar from repeat delivery (Acute) Transient hypertension of in third trimester (Acute) Recurrent UTI (Acute) Modified White class B pregestational diabetes mellitus (Acute) History of spontaneous (Acute) Left ovarian cyst (Acute) Supervision of high risk , antepartum (Acute) (Acute) History of delivery (Acute) Asymptomatic bacteriuria during (Acute) HPV test positive (Acute) Anemia affecting (Acute) Obesity affecting (Acute) Abnormal glucose affecting (Resolved) Abnormal uterine bleeding (Resolved) Acute appendicitis (Resolved) Anemia (Resolved) BMI 37.0-37.9, adult (Resolved) Chronic back pain (Resolved) Endocervical polyp (Resolved) demise before 20 weeks with retention of fetus (Resolved) ventricular septal defect affecting antepartum care of mother (Resolved) Foot pain, bilateral (Resolved) GERD (gastroesophageal reflux disease) (Resolved) Gestational diabetes (Resolved) History of pre-eclampsia in prior , currently (Resolved) Hypocalcemia (Resolved) IBS (irritable bowel syndrome) (Resolved) Irregular periods (Resolved) Lower abdominal pain (Resolved) Malaise and fatigue (Resolved) Nonscarring hair loss (Resolved) Obesity (Resolved) PCOS (polycystic ovarian syndrome) (Resolved) Physical exam, pre-employment (Resolved) Placenta previa (Resolved) (Resolved) Right hip pain (Resolved) Right lower quadrant abdominal pain of unknown etiology (Resolved) Supervision of other normal (Resolved) Suprapubic pain (Resolved) Viral syndrome (Resolved) s/p LTCS PPD # 1 1. routine post care 2. bottle feeding- support given 3. rh positive 4. rubella immune
[2020-02-13] MEDS: Senna/Docusate Sodium 1 Tablet PO (10:33)
[2020-02-13 10:43] VITALS: BP 132/63; PULSE 76; RESP 20; TEMP 36.5; O2SAT 99
[2020-02-13] MEDS: oxyCODONE 5 MG Tablet PO ×2 (13:38→19:22)
[2020-02-13] MEDS: Ondansetron 4 MG/2 ML Vial IV (13:49)
[2020-02-13] MEDS: Ibuprofen 600 MG Tablet PO ×2 (14:01→20:39)
[2020-02-13 14:03] VITALS: BP 136/73; PULSE 76; RESP 16; TEMP 36.6; O2SAT 98
--- NOTE | 2020-02-13 14:12 | NURSING ---
[employer] student charting reviewed and used for educational and learning purposes.
[2020-02-13 19:27] VITALS: BP 132/84; PULSE 88; RESP 18; TEMP 37; O2SAT 98
[2020-02-14] MEDS: Acetaminophen 500 MG Tablet 1000 MG PO ×3 (00:09→12:11)
[2020-02-14] MEDS: Ibuprofen 600 MG Tablet PO ×3 (02:12→15:20)
[2020-02-14 02:14] VITALS: BP 142/61; PULSE 71; RESP 16; TEMP 36.6
[2020-02-14] MEDS: oxyCODONE 5 MG Tablet PO ×3 (04:15→15:21)
--- NOTE | 2020-02-14 08:30 | PCM.PN.OB ---
Patient Problems: Active and Suspected Problems (Last Reviewed 02/08/20 @ 10:36 by Yolanda Key) Encounter for maternal care for low transverse scar from repeat delivery (Acute) Subjective: Patient doing well without complaints. Tolerating PO. Some difficulty with pain control. Trying to avoid taking narcotic, but then difficulty getting pain under control once she decides to take it. Ambulating and voiding without difficulty. Bottle feeding well. Denies chest pain, shortness of breath, calf pain/swelling, fevers, chills, lightheadedness. Objective: Laboratory Tests 02/13/20 02/13/20 02/12/20 Range/Units 07:37 05:48 10:21 WBC 7.3 (4.4-11.0) K/mm3 RBC 3.08 L (4.2-5.4) M/mm3 Hgb 9.3 L (12.0-15.0) g/dL Hct 27.1 L (37-47) % MCV 88.0 (81-99) fL MCH 30.2 (27.0-32.0) pg MCHC 34.3 (32-36) g/dL RDW Std Deviation 40.9 (35.1-43.9) fl RDW Coeff of Ever 12.8 (11.6-14.6) % Plt Count 188 (150-450) K/mm3 MPV 10.4 (6.2-12.0) fl Immature Gran % (Auto) (0.0-0.9) % Neut % (Auto) (47-70) % Lymph % (Auto) (19-41) % [place] % (Auto) (0-10) % Eos % (Auto) (0-5) % Baso % (Auto) (0-1) % Absolute Neuts (auto) (2.0-7.7) X10^3/uL Absolute Lymphs (auto) (0.83-4.51) X10^3/uL Nucleated RBC % (0-5) % POC Glucose 73 72 (70-110) mg/dL Blood Type Antibody Screen 02/12/20 02/12/20 02/12/20 Range/Units 05:53 05:30 05:30 WBC 6.3 (4.4-11.0) K/mm3 RBC 3.76 L (4.2-5.4) M/mm3 Hgb 11.3 L (12.0-15.0) g/dL Hct 32.4 L (37-47) % MCV 86.2 (81-99) fL MCH 30.1 (27.0-32.0) pg MCHC 34.9 (32-36) g/dL RDW Std Deviation 38.9 (35.1-43.9) fl RDW Coeff of Ever 12.4 (11.6-14.6) % Plt Count 264 (150-450) K/mm3 MPV 11.1 (6.2-12.0) fl Immature Gran % (Auto) 0.300 (0.0-0.9) % Neut % (Auto) 59.4 (47-70) % Lymph % (Auto) 33.2 (19-41) % [place] % (Auto) 6.3 (0-10) % Eos % (Auto) 0.3 (0-5) % Baso % (Auto) 0.5 (0-1) % Absolute Neuts (auto) 3.7 (2.0-7.7) X10^3/uL Absolute Lymphs (auto) 2.09 (0.83-4.51) X10^3/uL Nucleated RBC % 0 (0-5) % POC Glucose 76 (70-110) mg/dL Blood Type B POSITIVE Antibody Screen NEGATIVE - Physical Exam Vitals/I&O's: Vital Signs Temp Pulse Resp BP Pulse Ox 98 F 71 16 142/61 H 98 02/14/20 02:14 02/14/20 02:14 02/14/20 02:14 02/14/20 02:14 02/13/20 19:27 Oxygen Delivery Method Room Air Weight: 209 lb 7.026 oz Body Mass Index (BMI) 38.2 Intake and Output for Last 24 Hours 02/12/20 02/13/20 02/14/20 23:59 23:59 23:59 Intake Total 2367.5 / 2367.5 Output Total 1375 / 1375 Balance 992.5 / 992.5 General: Alert, Oriented x3, Cooperative, No apparent distress, Well nourished HEENT: Atraumatic, PERRLA, EOMI, Normocephalic Oral: Moist Mucosa Neck: Supple, No JVD Lungs: Normal air movement Cardiovascular: Regular rate Abdomen: Soft, Non Tender, Non-Distended, - - incision c/d/i with dressing in place Extremities: No Calf Tenderness, Edema - trace Neurological: Cranial nerves II-XII grossly intact, Neuro grossly intact Psych/Mental Status: Normal Affect, Appropriate, Alert and oriented to time, place, person, mood and affect Current Medications Acetaminophen (Tylenol) 1,000 mg PO Q6 [facility] Last Admin: 02/14/20 06:07 Dose: 1,000 mg Documented by: Bisacodyl (Dulcolax) 10 mg RECTAL UD PRN PRN Reason: If no BM Dextrose (D50w Syringe) 0 gm IV X1 PRN; Protocol PRN Reason: Hypoglycemia Glucagon () 1 mg IM .X1 PRN PRN Reason: Hypoglycemia Hydrocortisone (Hytone) 1 applic TOPICAL TID PRN PRN; Protocol PRN Reason: Discomfort Naloxone HCl 4 mg/ Dextrose 504 mls @ 0 mls/hr IV .Q0M PRN; Protocol PRN Reason: Respiratory depression Ibuprofen (Motrin) 600 mg PO Q6H [facility] Last Admin: 02/14/20 02:12 Dose: 600 mg Documented by: Methylergonovine Maleate (Methergine) 0.2 mg IM X1 PRN PRN Reason: Uterine Atony Naloxone HCl (Narcan) 0.02 mg IV Q1M PRN PRN Reason: RR <10 and pt unresponsive Ondansetron HCl (Zofran) 4 mg IV Q4H PRN PRN PRN Reason: Nausea Last Admin: 02/13/20 13:49 Dose: 4 mg Documented by: Oxycodone HCl (Oxyir) 5 - 10 mg PO Q4H PRN PRN PRN Reason: Pain Score 4-10/10 Last Admin: 02/14/20 04:15 Dose: 10 mg Documented by: Prochlorperazine Edisylate (Compazine Iv) 10 mg IV Q6H PRN PRN PRN Reason: NAUSEA Senna/Docusate Sodium (Senokot-S, Ivory-Colace) 1 - 2 tablet PO DAILY [facility] Last Admin: 02/13/20 10:33 Dose: 2 tablet Documented by: Simethicone (Mylicon) 80 mg PO [facility] PRN PRN Reason: Indigestion/stomach pain Last Admin: 02/13/20 21:05 Dose: 80 mg Documented by: Sodium Chloride () 5 - 15 ml IV UD PRN PRN Reason: SALINE FLUSH Last Admin: 02/13/20 13:50 Dose: 10 ml Documented by: Medical Necessity - Tobacco Use Smoking Status: Former smoker Assessment/Plan All Active Problems (Last Reviewed 02/08/20 @ 10:36 by Yolanda Key) Encounter for maternal care for low transverse scar from repeat delivery (Acute) Transient hypertension of in third trimester (Acute) Recurrent UTI (Acute) Modified White class B pregestational diabetes mellitus (Acute) History of spontaneous (Acute) Left ovarian cyst (Acute) Supervision of high risk , antepartum (Acute) (Acute) History of delivery (Acute) Asymptomatic bacteriuria during (Acute) HPV test positive (Acute) Anemia affecting (Acute) Obesity affecting (Acute) Abnormal glucose affecting (Resolved) Abnormal uterine bleeding (Resolved) Acute appendicitis (Resolved) Anemia (Resolved) BMI 37.0-37.9, adult (Resolved) Chronic back pain (Resolved) Endocervical polyp (Resolved) demise before 20 weeks with retention of fetus (Resolved) ventricular septal defect affecting antepartum care of mother (Resolved) Foot pain, bilateral (Resolved) GERD (gastroesophageal reflux disease) (Resolved) Gestational diabetes (Resolved) History of pre-eclampsia in prior , currently (Resolved) Hypocalcemia (Resolved) IBS (irritable bowel syndrome) (Resolved) Irregular periods (Resolved) Lower abdominal pain (Resolved) Malaise and fatigue (Resolved) Nonscarring hair loss (Resolved) Obesity (Resolved) PCOS (polycystic ovarian syndrome) (Resolved) Physical exam, pre-employment (Resolved) Placenta previa (Resolved) (Resolved) Right hip pain (Resolved) Right lower quadrant abdominal pain of unknown etiology (Resolved) Supervision of other normal (Resolved) Suprapubic pain (Resolved) Viral syndrome (Resolved) s/p LTCS PPD # 2 1. routine post care 2. Trouble with pain control - discussed taking pain medication before pain gets extremely out of control 3. breast feeding- support given 4. rh positive 5. rubella immune
[2020-02-14] MEDS: Senna/Docusate Sodium 1 Tablet PO (08:33)
[2020-02-14 08:40] VITALS: BP 148/85; PULSE 78; RESP 16; TEMP 36.6; O2SAT 98
[2020-02-14 15:30] VITALS: BP 143/79; PULSE 104; RESP 16; TEMP 36.6; O2SAT 98
--- NOTE | 2020-02-14 15:34 | DCINST_ITS ---
Discharge Diet: No Restrictions Discharge Activity: May Not Drive - for 2 weeks or while taking narcotic pain meds., May Shower, May Take a Tub Bath - in 7 days. May resume sexual activity in: 4-6 weeks Lifting Restrictions: 20 pounds Additional Activity Instructions:: Nothing in the vagina for 4-6 weeks. You may return to work/school in 6 weeks. Call your doctor if your incision/area has: Continuous Slow Oozing, Sudden Increased Bleeding, Increased Pain/ Swelling, Increased Redness, Foul Smelling Discharge Call your doctor if you observe: Fever of 101 or Higher Suture Line Care: Avoid Pulling/Pushing, Avoid Pinching/Bending Remove Dressing in (days):: 7 Additional Instructions: If you experience any of the following, contact your healthcare provider. * Bleeding that soaks a pad every hour for 2 hours * Fever 100.4 or higher * Unrelieved incision or abdominal pain * Swelling, redness, discharge or bleeding from your incision or episiotomy site * Your incision begins to separate * Problems urinating (including inability to urinate or burning while urinating). * Visual changes * Severe headache * Flu-like symptoms * Pain or redness in one of both of your breasts * Pain, warmth, tenderness or swelling in your legs, especially the calf area * Frequent nausea and vomiting * Symptoms of depression or anxiety If you experience any of the following, call 911 or go to the nearest Emergency Room. * Chest pain * Problems breathing * Seizure activity * Partial or complete paralysis of a body part, slurred speech, weakness or drooping of the face, or a sudden inability to walk or hold your balance Allergies/Adverse Reactions: Allergies naproxen Adverse Reaction (Verified 02/08/20 10:35) Other night sweats, fever, and hives varenicline tartrate [From Chantix] Adverse Reaction (Verified 02/08/20 10:35) Other night sweats, fever, and hives Medications to take at Discharge Pnv No.103/Folic/Om3s/Fish Oil [ Gummies] 1 ea PO DAILY 10/27/19 cyclobenzaprine 10 mg tablet 10 mg PO Q6H PRN #30 tab 01/21/20 Nitrofurantoin Monohyd/M-Cryst [Nitrofurantoin [place]-Mcr 100 mg] 100 mg PO ONCE 02/12/20 Docusate Sodium [Colace] 100 mg PO BID #60 cap 02/14/20 Ibuprofen [Motrin] 800 mg PO Q8H #30 tab 02/14/20 Oxycodone [Oxyir] 5 mg PO Q6H PRN PRN 7 Days #15 tablet 02/14/20 The following prescriptions were given: Docusate Sodium [Colace] 100 mg PO BID #60 cap Transmission Status: Pending to [facility] Ibuprofen [Motrin] 800 mg PO Q8H #30 tab Transmission Status: Pending to [facility] Oxycodone [Oxyir] 5 mg PO Q6H PRN PRN 7 Days #15 tablet PRN Reason: Pain Score 6-10/10 Transmission Status: Sent to [facility] Follow-Up: Call to make an appointment with your doctor for an incision check in 1-2 weeks. You will also need a 6 week post- follow up appointment. Test results from this visit will be discussed in further detail at your follow- up appointment, if applicable. Primary Care Physician: Juan Alfaro MD [Primary Care Provider] -
--- NOTE | 2020-02-18 07:54 | DS.PCM_ITS ---
Discharge Date and Diagnosis Date of Admission: 02/12/20 Date of Discharge: 02/14/20 - Secondary Discharge Diagnosis Chronic Problems: Chronic Problems (Last Reviewed 02/08/20 @ 10:36 by Yolanda Key) Depression with anxiety (Chronic) no meds, counseling encouraged, stable Scoliosis (Chronic) Asthma (Chronic) stable Hospital Course and Treatment Operations: appendectomy, - - Summary of Care Provided: The patient is a 29 year old F . Patient underwent section with routine recovery and return of bowel and bladder function. Ambulating, voiding, and tolerating PO. Stable for discharge home POD#2. - Physical Exam Vitals/I&O's: Vital Signs Temp Pulse Resp BP Pulse Ox 97.8 F 104 H 16 143/79 H 98 02/14/20 15:30 02/14/20 15:30 02/14/20 15:30 02/14/20 15:30 02/14/20 15:30 Oxygen Delivery Method Room Air Weight: 209 lb 7.026 oz Body Mass Index (BMI) 38.2 Discharge Diet: No Restrictions Discharge Activity: May Not Drive - for 2 weeks or while taking narcotic pain meds., May Shower, May Take a Tub Bath - in 7 days. May resume sexual activity in: 4-6 weeks Additional Activity Instructions:: Nothing in the vagina for 4-6 weeks. You may return to work/school in 6 weeks. Call your doctor if your incision/area has: Continuous Slow Oozing, Sudden Increased Bleeding, Increased Pain/ Swelling, Increased Redness, Foul Smelling Discharge Call your doctor if you observe: Fever of 101 or Higher Suture Line Care: Avoid Pulling/Pushing, Avoid Pinching/Bending Remove Dressing in (days):: 7 Home Medications: Medications to take at Discharge Pnv No.103/Folic/Om3s/Fish Oil [ Gummies] 1 ea PO DAILY 10/27/19 cyclobenzaprine 10 mg tablet 10 mg PO Q6H PRN #30 tab 01/21/20 Nitrofurantoin Monohyd/M-Cryst [Nitrofurantoin [place]-Mcr 100 mg] 100 mg PO ONCE 02/12/20 Docusate Sodium [Colace] 100 mg PO BID #60 cap 02/14/20 Ibuprofen [Motrin] 800 mg PO Q8H #30 tab 02/14/20 Oxycodone [Oxyir] 5 mg PO Q6H PRN PRN 7 Days #15 tab 02/14/20 Following Prescriptions Were Given to Patient: Docusate Sodium [Colace] 100 mg PO BID #60 cap Transmission Status: Received by [facility] Ibuprofen [Motrin] 800 mg PO Q8H #30 tab Transmission Status: Received by [facility] Oxycodone [Oxyir] 5 mg PO Q6H PRN PRN 7 Days #15 tab PRN Reason: Pain Score 6-10/10 Transmission Status: Received by [facility] Primary Care Physician: Juan Alfaro MD [Primary Care Provider] - Please follow up with your Primary Care Physician in: 1-2 weeks and 6 weeks Please Follow Up With: Pretty Hughes MD When: 1-2 weeks and 6 weeks Medical Necessity - Tobacco Use Smoking Status: Former smoker Meaningful Use Info Meaningful Use Diagnoses (Choose all that apply): None applicable
== END 2020-02-14 18:00 | disposition home or self-care (01) | DRG 786 ==
PROVIDERS: Admitting Provider Obstetrics & Gynecology; PCP Internal Medicine; Referring Provider Obstetrics & Gynecology; Visit Provider Obstetrics & Gynecology
PROC: (CPT 59514; principal; 2020-02-12 07:15)
DX: O34.211 Maternal care for low transverse scar from previous cesarean delivery (principal); O24.32 Unspecified pre-existing diabetes mellitus in childbirth; E66.9 Obesity, unspecified; O99.214 Obesity complicating childbirth; M41.9 Scoliosis, unspecified; J45.909 Unspecified asthma, uncomplicated; O99.52 Diseases of the respiratory system complicating childbirth; F41.8 Other specified anxiety disorders; O99.344 Other mental disorders complicating childbirth; Z3A.39 39 weeks gestation of pregnancy; Z87.891 Personal history of nicotine dependence; Z37.0 Single live birth
CPT/HCPCS: 82962; 85025; 85027; 86850; 86900; 86901; 99218; J7120; A4216; G0378; J2405

== ENCOUNTER → 2020-04-01 09:33 | Outpatient (CLI) | payer MEDICARE, MEDICAID, SELFPAY ==
[2020-03-26 10:31] VITALS: BMI 34.4
[2020-04-01 09:47] LABS: Absolute Lymphocyte Count 2.01 X10^3/uL (0.83-4.51); Absolute Neutrophil Count 1.7 X10^3/uL (2.0-7.7); Basophil# 0.04 X10^3/uL; Eosinophil# 0.05 X10^3/uL; Eosinophils% 1.2 % (0-5); Hematocrit 33.6 % (37-47); Hemoglobin 11.2 g/dL (12.0-15.0); Lymphocyte # 2.01 X10^3/ul (4.0); Lymphocyte % 49.8 % (19-41); Mean Corp Hgb Conc 33.3 g/dL (32-36); Mean Corpuscular Hgb 28.9 pg (27.0-32.0); Mean Corpuscular Volume 86.8 fL (81-99); Mean Platelet Vol. 9.1 fl (6.2-12.0); Monocyte# 0.29 X10^3/uL; Monocyte% 7.2 % (0-10); NRBC Flagged by Analyzer 0 % (0-5); Neutrophil # 1.65 X10^3/uL (2.7-7.7); Neutrophil % 40.8 % (47-70); Platelet Count 361 K/mm3 (150-450); Red Blood Count 3.87 M/mm3 (4.2-5.4)
[2020-04-01 10:18] LABS: Thyroid Stim Hormone (TSH) 0.78 uIU/mL (0.358-3.74)
== END ==
PROVIDERS: PCP Internal Medicine; Referring Provider Obstetrics & Gynecology; Visit Provider Obstetrics & Gynecology
DX: R53.83 Other fatigue (principal)
CPT/HCPCS: 36415; 84443; 85025

== ENCOUNTER → 2020-04-21 14:15 | Outpatient (CLI) | payer MEDICARE, MEDICAID, SELFPAY ==
[2020-04-21 13:53] VITALS: BMI 35.4
== END ==
PROVIDERS: PCP Internal Medicine; Referring Provider Obstetrics & Gynecology; Visit Provider Obstetrics & Gynecology
DX: T81.49XA Infection following a procedure, other surgical site, initial encounter (principal)
CPT/HCPCS: 87070; 87077; 87186; 87205

== ENCOUNTER → 2020-10-27 11:15 | Outpatient (CLI) | payer MEDICARE, SELFPAY ==
[2020-10-27 10:45] VITALS: BMI 38.2
[2020-10-27 13:15] LABS: Hemoglobin A1c 4.9 % (3.8-5.6)
[2020-10-27 13:32] LABS: AST(SGOT) 13 U/L (15-37); Alanine Aminotransfer ALT/SGPT 29 U/L (13-56); Alkaline Phosphatase 67 U/L (45-117); Anion Gap 9 (5-15); BUN 15 mg/dL (7-18); BUN/Creat Ratio 23.8 RATIO (10-20); Calcium,Total 9.6 mg/dL (8.5-10.1); Chloride 102 mmol/L (98-107); Creatinine, Serum 0.63 mg/dL (0.55-1.02); EST Glomerular Filtration Rate 118 mL/min (>60); Est Glom Filt Rate - Afr Amer 143 mL/min (>60); Globulin 3.9 g/dL (2.2-4.2); Glucose 95 mg/dL (74-106); Potassium 4.2 mmol/L (3.5-5.1); Protein, Total 7.9 g/dL (6.4-8.2); Sodium Level 141 mmol/L (136-145)
== END ==
PROVIDERS: PCP Internal Medicine; Visit Provider Internal Medicine
DX: O24.419 Gestational diabetes mellitus in pregnancy, unspecified control (principal); O99.340 Other mental disorders complicating pregnancy, unspecified trimester; F32.9 Major depressive disorder, single episode, unspecified; F41.9 Anxiety disorder, unspecified; Z3A.00 Weeks of gestation of pregnancy not specified
CPT/HCPCS: 36415; 80053; 83036

== ENCOUNTER → 2021-03-11 22:46 | Outpatient (CLI) | payer MEDICARE, MEDICAID, SELFPAY | PROVIDERS: PCP Internal Medicine; Referring Provider Nurse Practitioner Family; Visit Provider Nurse Practitioner Family | DX: G47.10 Hypersomnia, unspecified (principal) | CPT/HCPCS: 95810 ==

== ENCOUNTER 2021-03-27 11:09 | Emergency (ER) | payer MEDICARE, MEDICAID, SELFPAY ==
[2021-03-27 11:10] VITALS: BP 122/61; PULSE 91; RESP 18; TEMP 36.2; O2SAT 97; BMI 35.6
--- NOTE | 2021-03-27 11:42 | US_ITS ---
STUDY: ULTRASOUND OF THE FEMALE PELVIS - COMPLETE REASON FOR EXAM: Female, 30 years old. Left pelvic pain LMP: 02/20/2021. TECHNIQUE: Transvaginal TECHNICAL QUALITY: Adequate. COMPARISON: Comparison is made with prior study dated 02/02/2019. FINDINGS: The uterus is anteverted and is in a midline position. The uterus measures 8.3 cm x 5.7 cm x 4.6 cm. There is a Nabothian cyst of the cervix. The endometrium is thickened and measures 14.5 mm in thickness, and is hyperechoic. There is no demonstrated endometrial mass. There is no demonstrated myometrial mass. I.U.D. - The patient does not have an I.U.D. The right ovary is visualized. The right ovary measures 3.6 cm x 2.5 cm x 2.4 cm. There is no right ovarian cyst or ovarian mass. There is no visualized right adnexal mass or complex lesion. There is normal arterial and normal venous vascularity. The left ovary is visualized. The left ovary measures 3.1 cm x 1.9 cm x 1.6 cm. There is no left ovarian cyst or ovarian mass. There is no visualized left adnexal mass or complex lesion. There is normal arterial and normal venous vascularity. There is a small amount of fluid in the cul-de-sac. US/Transvaginal Non- IMPRESSION: Thickening of the endometrium although this may be related to the patient''s menstrual phase. Small amount of free fluid in the pelvis. Electronically Signed: Chuck Yi MD at 13:08 EDT , Service support ,
--- NOTE | 2021-03-27 11:44 | ED.VIS.FEGU ---
HPI HPI - Female History of Present Illness Chief Complaint: Female C/O Informant: patient Pain Pain: Positive for Pelvic Pain Onset: Days (2 days) Context: Gradual Onset Timing: Waxes and wanes Quality: Positive for Sharp and Stabbing Location: LLQ Current Severity: Severe Maximum Severity: Severe Associated Symptoms Associated Symptoms: Negative for Dysuria Test: - (Home test yesterday) P: 2 Ab: 1 Narrative Narrative: Patient presents with left pelvic pain for the past 2 days. She describes it as sharp and stabbing. She also states that she is currently 8 days late for her menstrual cycle. She took a home test last evening that was negative. She states in the past she has had false negative home test only to be found positive on blood work. She called her PUBLIC SERVICE ADMINISTRATOR's office this morning who encouraged her to come to the ER to ensure no evidence of ovarian torsion. [facility] Medical History Acute appendicitis Asthma Chronic back pain Foot pain, bilateral GERD (gastroesophageal reflux disease) Gestational diabetes Hypersomnia IBS (irritable bowel syndrome) Irregular periods Obesity Preeclampsia Rectal bleeding Right lower quadrant abdominal pain of unknown etiology Scoliosis Spontaneous Viral syndrome Home Medications NK 02/20/21 [History Last Taken Unknown] Allergy/AdvReac Type Severity Reaction Status Date / Time naproxen AdvReac Other Verified 02/20/21 13:56 varenicline tartrate AdvReac Other Verified 02/20/21 13:56 [From Chantix] Family History Mother Depression Aunt Breast cancer Grandmother Diabetes Uncle Hyperlipemia Menieres disease Depression Surgical History delivery delivered H/O adenoidectomy H/O knee surgery History of hip surgery History of tonsillectomy Hx of breast reduction, elective S/P laparoscopic appendectomy (~05/06/18) S/P right knee arthroscopy Social History Smoking Status: Former smoker how long ago did patient quit smokin alcohol intake: never substance use type: does not use caffeine: No what type of physical activity do you participate in: none, walking, bicycling and weight training frequency: 5-6 times per week seatbelt use: always additional social history: 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 [place] Patient works at [employer] ROS ED Constitutional Constitutional ED: Denies chills or fever(s) Eyes Eyes: Denies change in vision ENT ENT ED: Denies sore throat Cardiovascular Cardiovascular: Denies chest pain Respiratory/Chest Respiratory/Chest: Denies cough or dyspnea Gastrointestinal Gastrointestinal: Reports abdominal pain and nausea; Denies diarrhea or vomiting Genitourinary Genitourinary ED: Denies dysuria Musculoskeletal Musculoskeletal: Denies back pain Integumentary Denies rash Neurologic Neurologic: Denies headache(s) or weakness Allergic/Immunologic Allergic/Immunologic ED: Denies urticaria EXAM Physical Exam Const Vital Signs: 03/27/21 11:10 Temperature 97.2 F L Temperature Source Temporal Pulse Rate 91 Respiratory Rate 18 Blood Pressure 122/61 H Blood Pressure Mean 81 Pulse Ox 97 Oxygen Delivery Method Room Air Positive well nourished and well developed General Appearance ED: well developed HEENT Reports normocephalic and head/scalp atraumatic Eyes PERRL and EOMs intact bilaterally Neck supple Chest Wall inspection of chest normal and palpation of chest normal Resp normal respiratory effort and clear to auscultation bilaterally Cardio regular rate and regular rhythm GI soft to palpation Palpation: soft and tender LLQ; Negative for guarding Extremity normal to inspection Neuro oriented x3 and no sensory deficits noted Sensorium / Orientation: alert Motor Exam: strength 5/5 throughout Psych mental status grossly normal Skin no rashes or lesions noted MDM MDM MDM Narrative Medical decision making narrative: Patient was given morphine and Zofran for pain. Lab work including test as well as pelvic ultrasound obtained. Lab Data Attestation: I reviewed the patient's lab results. Labs: Laboratory Results - last 24 hr 03/27/21 03/27/21 03/27/21 12:00 12:00 12:00 WBC 4.8 RBC 4.23 Hgb 12.2 Hct 35.8 L MCV 84.6 MCH 28.8 MCHC 34.1 RDW Std Deviation 37.3 RDW Coeff of Ever 12.3 Plt Count 318 MPV 9.1 Immature Gran % (Auto) 0.200 Neut % (Auto) 43.1 L Lymph % (Auto) 48.8 H [place] % (Auto) 6.9 Eos % (Auto) 0.4 Baso % (Auto) 0.6 Absolute Neuts (auto) 2.0 Absolute Lymphs (auto) 2.32 Nucleated RBC % 0 Sodium 141 Potassium 4.0 Chloride 107 Carbon Dioxide 30.0 Anion Gap 4 L BUN 11 Creatinine 0.68 Estim Creat Clear Calc 91.28 Est GFR (MDRD) Af Amer 130 Est GFR (MDRD) Non-Af 107 BUN/Creatinine Ratio 16.2 Glucose 118 H Calcium 9.2 HCG, Quant < 1 Urine Color Urine Clarity Urine pH Ur Specific [place] Urine Protein Urine Glucose (UA) Urine Ketones Urine Occult Blood Urine Nitrite Urine Bilirubin Urine Urobilinogen Ur Leukocyte Esterase 03/27/21 13:53 WBC RBC Hgb Hct MCV MCH MCHC RDW Std Deviation RDW Coeff of Ever Plt Count MPV Immature Gran % (Auto) Neut % (Auto) Lymph % (Auto) [place] % (Auto) Eos % (Auto) Baso % (Auto) Absolute Neuts (auto) Absolute Lymphs (auto) Nucleated RBC % Sodium Potassium Chloride Carbon Dioxide Anion Gap BUN Creatinine Estim Creat Clear Calc Est GFR (MDRD) Af Amer Est GFR (MDRD) Non-Af BUN/Creatinine Ratio Glucose Calcium HCG, Quant Urine Color Yellow Urine Clarity Sl. Cloudy Urine pH 6.0 Ur Specific [place] 1.010 Urine Protein Negative Urine Glucose (UA) Normal Urine Ketones Negative Urine Occult Blood Negative Urine Nitrite Negative Urine Bilirubin Negative Urine Urobilinogen Normal Ur Leukocyte Esterase Negative Radiography Diagnostic Testing: Clinical Impression(s) from Imaging Studies Transvaginal US 03/27/21 11:42 IMPRESSION: Thickening of the endometrium although this may be related to the patient''s menstrual phase. Small amount of free fluid in the pelvis. Electronically Signed: Chuck Yi MD at 13:08 EDT , Service support , Treatment and Re-Evaluation Comments:: Test results discussed with the patient. Blood work unremarkable. test negative. Pelvic ultrasound shows thickened endometrium but normal ovary with good blood flow. Patient will continue supportive care. She will follow-up with her VETERINARY SURGERY TECHNICIAN if not improving. Discharge Plan Triage Chief Complaint: Female C/O ED Provider: Es Alvarado Dx/Rx/DC Orders Clinical Impression: Pelvic pain Instructions: ED Pelvic Pain, Unknown Cause Prescriptions: No Action NK RF: 0 Primary Care Provider: Juan Alfaro Referrals: Juan Alfaro MD [Primary Care Provider] - Azucena Esposito MD [STAFF PHYSICIAN] - 1 Week if not improving Disposition Disposition: Home, Self Care
[2021-03-27] MEDS: Ondansetron 4 MG/2 ML Vial IV (12:11)
[2021-03-27] MEDS: Morphine 4 MG/ML Syringe IV (12:11)
[2021-03-27 12:14] LABS: Absolute Lymphocyte Count 2.32 X10^3/uL (0.83-4.51); Basophil# 0.03 X10^3/uL; Basophil% 0.6 % (0-1); Eosinophil# 0.02 X10^3/uL; Eosinophils% 0.4 % (0-5); Hematocrit 35.8 % (37-47); Hemoglobin 12.2 g/dL (12.0-15.0); Lymphocyte # 2.32 X10^3/ul (0.83-4.51); Lymphocyte % 48.8 % (19-41); Mean Corp Hgb Conc 34.1 g/dL (32-36); Mean Corpuscular Hgb 28.8 pg (27.0-32.0); Mean Corpuscular Volume 84.6 fL (81-99); Mean Platelet Vol. 9.1 fl (6.2-12.0); Monocyte# 0.33 X10^3/uL; Monocyte% 6.9 % (0-10); NRBC Flagged by Analyzer 0 % (0-5); Neutrophil # 2.04 X10^3/uL (2.7-7.7); Neutrophil % 43.1 % (47-70); Platelet Count 318 K/mm3 (150-450); RBC Distribution Width CV 12.3 % (11.6-14.6); RBC Distribution Width SD 37.3 fl (35.1-43.9); Red Blood Count 4.23 M/mm3 (4.2-5.4); White Blood Count 4.8 K/mm3 (4.4-11.0)
[2021-03-27 12:38] LABS: Anion Gap 4 (5-15); BUN 11 mg/dL (7-18); BUN/Creat Ratio 16.2 RATIO (10-20); Calcium,Total 9.2 mg/dL (8.5-10.1); Chloride 107 mmol/L (98-107); Creatinine, Serum 0.68 mg/dL (0.55-1.02); EST Glomerular Filtration Rate 107 mL/min (>60); Est Glom Filt Rate - Afr Amer 130 mL/min (>60); Estimated Creatinine Clearance 91.28 ml/min; Glucose 118 mg/dL (74-106); Sodium Level 141 mmol/L (136-145)
[2021-03-27 12:48] LABS: hCG Titer Quant., Serum < 1 mIU/mL (1-3)
[2021-03-27 14:06] LABS: Bacteria 0 SEEN /hpf (None Seen); Mucous, Urine 0 SEEN /hpf (<or=2+); Red Blood Cells-Urine 0 SEEN /hpf (0-5); White Blood Cells 0 SEEN /hpf (0-5)
[2021-03-27 14:09] LABS: Color, Urine Yellow (Yellow); Glucose, Dipstick Normal (Normal); Ketone-Dipstick Negative (Negative); Leukocyte Esterase-Dipstick Negative /ul (Negative); Nitrite-Dipstick Negative (Negative); Occult Blood-Urine Negative /ul (Negative); Protein-Dipstick Negative (Negative); Urine Bilirubin Dipstick Negative (Negative); Urine Clarity Sl. Cloudy (Clear); Urine Urobilinogen Normal (Normal)
[2021-03-27 14:17] LABS: Squamous Epithelial Cells - UA 0-5 SEEN /hpf (5-10)
[2021-03-27 14:26] VITALS: PULSE 78; RESP 15; O2SAT 98
== END 2021-03-27 14:47 | disposition home or self-care (01) ==
PROVIDERS: Emergency Provider Emergency Medicine; PCP Internal Medicine
DX: R10.2 Pelvic and perineal pain (principal); R11.0 Nausea; R93.89 Abnormal findings on diagnostic imaging of other specified body structures; E66.9 Obesity, unspecified; Z68.35 Body mass index [BMI] 35.0-35.9, adult; K58.9 Irritable bowel syndrome, unspecified; K21.9 Gastro-esophageal reflux disease without esophagitis; G47.10 Hypersomnia, unspecified; G89.29 Other chronic pain; J45.909 Unspecified asthma, uncomplicated; M41.9 Scoliosis, unspecified; Z87.19 Personal history of other diseases of the digestive system; Z79.899 Other long term (current) drug therapy; Z87.891 Personal history of nicotine dependence
CPT/HCPCS: 76830; 80048; 81001; 84702; 85025; 96374; 96375; 99283; J7030; A4216; J2405

== ENCOUNTER 2021-05-25 12:10 | Outpatient (CLI) | payer MEDICARE, MEDICAID, SELFPAY ==
[2021-05-25 14:00] LABS: hCG Titer Quant., Serum < 1 mIU/mL (1-3)
[2021-05-29 16:49] LABS: Thyroid Stim Hormone (TSH) 0.58 uIU/mL (0.358-3.74)
[2021-06-02 12:05] LABS: HPV APTIMA, High Risk Positive; HPV Genotype 16, Aptima Negative; HPV Genotype 18,45 Aptima Negative
== END 2021-05-25 23:59 | disposition short-term general hospital (02) ==
PROVIDERS: PCP Internal Medicine; Visit Provider Nurse Practitioner Women's Health
DX: N76.0 Acute vaginitis (principal)
CPT/HCPCS: 36415; 84443; 84702; 87070; 87205; 87624; 88175; G0145

== ENCOUNTER 2021-07-16 08:04 | Outpatient (CLI) | payer MEDICARE, MEDICAID, SELFPAY | END 2021-07-16 23:59 | disposition home or self-care (01) | PROVIDERS: PCP Internal Medicine; Visit Provider Obstetrics & Gynecology | DX: R10.2 Pelvic and perineal pain (principal) | CPT/HCPCS: 87070; 87205 ==

== ENCOUNTER 2021-07-29 09:20 | Outpatient (CLI) | payer MEDICARE, MEDICAID, SELFPAY ==
--- NOTE | 2021-07-29 09:22 | BI_ITS ---
MAMMOGRAPHY - BILATERAL DIAGNOSTIC REASON FOR EXAM: Female, 31 years old. One month history of bilateral nipple. Prior bilateral breast reduction surgery. PERTINENT HISTORY: Non-contributory. TECHNIQUE: Digital bilateral breast pedro (3D mammographic acquisition) in the CC and MLO projections. 2-D mediolateral oblique (MLO) and craniocaudad (CC) views of both breasts were obtained. CAD: Full Field Digital Mammography with Computer Added Detection was performed. COMPARISON: None. Baseline examination. FINDINGS: Breast Composition: The breasts are heterogeneously dense, which may obscure small masses. There are no dominant masses or suspicious calcifications. Scattered skin calcifications are seen in the inferior medial aspect of the right breast. No other significant abnormalities are identified. BI/DIAG MAMM W/CAD, BILAT IMPRESSION: Negative diagnostic mammogram. With the patient''s history of bilateral periareolar pain, correlation with ultrasound is recommended. ASSESSMENT CATEGORY: BIRADS Category 0: Incomplete. Need additional imaging evaluation. A letter regarding these results will be sent to the patient by the facility within 30 days. Approximately 10% of breast cancers are not detected by mammography. A normal mammogram should not delay biopsy of a clinically suspicious abnormality. Electronically Signed: Chuck Yi MD at 11:01 EST ,
--- NOTE | 2021-07-29 09:22 | US_ITS ---
STUDY: ULTRASOUND BREAST - RIGHT REASON FOR EXAM: Female, 31 years old. Retroareolar breast pain. TECHNIQUE: Axial and longitudinal images of the RIGHT breast were performed with a high resolution ultrasound transducer. # OF IMAGES: 22 COMPARISON: Comparison is made with prior mammogram done earlier in the day. FINDINGS: RIGHT Breast: The retroareolar region was examined with ultrasound. No sonographic abnormality is seen. IMPRESSION: No sonographic abnormality is seen. ASSESSMENT CATEGORY: BIRADS Category 1: Negative. A letter regarding these results will be sent to the patient by the facility within 30 days. Electronically Signed: Chuck Yi MD at 12:32 EST , STUDY: ULTRASOUND BREAST - LEFT REASON FOR EXAM: Female, 31 years old. Left retroareolar breast pain. TECHNIQUE: Axial and longitudinal images of the LEFT breast were performed with a high resolution ultrasound transducer. # OF IMAGES: 22 COMPARISON: Comparison is made with prior mammogram done earlier today. FINDINGS: LEFT Breast: The retroareolar region of the breast was examined with ultrasound. No sonographic abnormality is seen. US/Breast Limited Unilateral IMPRESSION: No sonographic abnormality is seen. ASSESSMENT CATEGORY: BIRADS Category 1: Negative. A letter regarding these results will be sent to the patient by the facility within 30 days. Electronically Signed: Chuck Yi MD at 12:33 EST ,
== END 2021-07-29 23:59 | disposition home or self-care (01) ==
LOC: OPBI 09:20
PROVIDERS: PCP Internal Medicine; Visit Provider Obstetrics & Gynecology
DX: N64.4 Mastodynia (principal)
CPT/HCPCS: 76642; 77062; 77066; G0279

== ENCOUNTER → 2021-11-10 | Outpatient (CLI) | payer MEDICARE, MEDICAID, SELFPAY | END | disposition home or self-care (01) | LOC: LABSPEC 13:05 | PROVIDERS: PCP Internal Medicine; Visit Provider Internal Medicine | DX: U07.1 COVID-19 (principal); J06.9 Acute upper respiratory infection, unspecified | CPT/HCPCS: 87635; U0003; U0005 ==

== ENCOUNTER 2021-11-15 17:32 | Emergency (ER) | payer MEDICARE, MEDICAID, SELFPAY ==
[2021-11-15 17:33] VITALS: BP 114/77; PULSE 111; RESP 16; TEMP 36.8; O2SAT 100; BMI 32.5
--- NOTE | 2021-11-15 18:11 | EKG12_ITS ---
Test Reason : SOB Blood Pressure : / mmHG Vent. Rate : 096 BPM Atrial Rate : 096 BPM P-R Int : 132 ms QRS Dur : 078 ms QT Int : 370 ms P-R-T Axes : 018 054 012 degrees QTc Int : 467 ms Normal sinus rhythm Nonspecific T wave abnormality Abnormal ECG Confirmed by MADHURI JUAREZ, JOANN ([id number]), video news editor BROOKLYNN ENRIQUEZ ([id number]) on 11/17/2021 8:26:00 AM Referred By: IRAIDA Confirmed By:JOANN DHALIWAL MD
--- NOTE | 2021-11-15 18:14 | EDS_ITS ---
HPI History of Present Illness Chief Complaint: Shortness of Breath Informant: patient Onset/Context/Timing Onset: Today Context: Gradual Onset Narrative Narrative: Patient presents with COVID and chest pain with shortness of breath. She developed COVID symptoms 6 days ago. She tested +5 days ago and was started on Paxlovid. Today she feels chest pain and shortness of breath. She feels that she is actually worsened after starting this medication. She denies having fever. She does have cough and generalized body aches. [facility] Medical History Acute appendicitis Asthma Chronic back pain Foot pain, bilateral Generalized anxiety disorder GERD (gastroesophageal reflux disease) Hypersomnia IBS (irritable bowel syndrome) Irregular periods Obesity Preeclampsia Rectal bleeding Right lower quadrant abdominal pain of unknown etiology Scoliosis Spontaneous Suspected COVID-19 virus infection Upper respiratory infection Viral syndrome Home Medications escitalopram oxalate 20 mg tablet 20 mg PO DAILY #60 tabs 06/03/21 [Rx Last Taken Unknown] phentermine 37.5 mg tablet (Adipex-P) 37.5 mg PO DAILY BMI 36.5 30 days #30 tabs 11/05/21 [Rx Last Taken Unknown] nirmatrelvir 300 mg (150 mg x 2)-ritonavir 100 mg tablet (EUA) (Paxlovid 300 mg () See Rx Instructions PO .COMPLEX #30 tabs 11/11/21 [Rx Last Taken Unknown] Allergy/AdvReac Type Severity Reaction Status Date / Time naproxen AdvReac Other Verified 11/15/21 17:35 varenicline tartrate AdvReac Other Verified 11/15/21 17:35 [From Chantix] Family History Mother Depression Aunt Breast cancer Grandmother Diabetes Uncle Hyperlipemia Menieres disease Depression Surgical History delivery delivered H/O adenoidectomy H/O knee surgery History of hip surgery History of tonsillectomy Hx of breast reduction, elective S/P laparoscopic appendectomy (~05/06/18) S/P right knee arthroscopy Social History Smoking Status: Current every day smoker tobacco type: cigarettes how long ago did patient quit smokin alcohol intake: never substance use type: does not use caffeine: No what type of physical activity do you participate in: none, walking, bicycling and weight training frequency: 5-6 times per week seatbelt use: always additional social history: 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 [place] Patient works at [employer] ROS ED Constitutional Constitutional ED: Denies chills or fever(s) Eyes Eyes: Denies change in vision or discharge from eye(s) ENT ENT ED: Reports sore throat; Denies discharge from eye(s) or rhinorrhea Cardiovascular Cardiovascular: Reports chest pain; Denies palpitations Respiratory/Chest Respiratory/Chest: Reports cough and dyspnea Gastrointestinal Gastrointestinal: Denies abdominal pain, diarrhea, nausea or vomiting Genitourinary Genitourinary ED: Denies difficulty urinating or dysuria Musculoskeletal Musculoskeletal: Reports myalgias; Denies back pain or extremity pain Integumentary Denies Abrasions or rash Neurologic Neurologic: Reports headache(s); Denies weakness Allergic/Immunologic Allergic/Immunologic ED: Denies lip swelling or urticaria EXAM Physical Exam Const Vital Signs: 11/15/21 17:33 11/15/21 18:42 11/15/21 18:42 Temperature 98.2 F Temperature Source Temporal Pulse Rate 111 H 83 Respiratory Rate 16 19 H Respiratory Effort Normal Respiratory Depth Normal Respiratory Pattern Normal Blood Pressure 114/77 120/68 Blood Pressure Mean 89 85 Pulse Ox 100 98 Oxygen Delivery Method Room Air Room Air Room Air 11/15/21 21:00 Temperature Temperature Source Pulse Rate Respiratory Rate 16 Respiratory Effort Respiratory Depth Respiratory Pattern Blood Pressure Blood Pressure Mean Pulse Ox 98 Oxygen Delivery Method Room Air Positive well nourished and well developed General Appearance ED: well developed HEENT Reports normocephalic and head/scalp atraumatic Eyes PERRL and EOMs intact bilaterally Neck supple Chest Wall inspection of chest normal and palpation of chest normal Resp normal respiratory effort and clear to auscultation bilaterally Cardio regular rate and regular rhythm GI normal to inspection, nondistended, normoactive bowel sounds Palpation: soft Extremity normal to inspection Neuro oriented x3 and no sensory deficits noted Sensorium / Orientation: alert Motor Exam: strength 5/5 throughout Psych mental status grossly normal Skin no rashes or lesions noted MDM MDM MDM Narrative Medical decision making narrative: Patient given IV fluids along with Toradol and Zofran. Lab work, EKG, chest x- ray obtained. Lab Data Attestation: I reviewed the patient's lab results. Labs: Laboratory Results - last 24 hr 11/15/21 11/15/21 11/15/21 18:40 18:40 18:40 WBC 5.0 RBC 4.48 Hgb 13.0 Hct 37.8 MCV 84.4 MCH 29.0 MCHC 34.4 RDW Std Deviation 36.5 RDW Coeff of Ever 11.9 Plt Count 367 MPV 9.2 Immature Gran % (Auto) 0.000 Neut % (Auto) 31.2 L Lymph % (Auto) 59.4 H [place] % (Auto) 8.4 Eos % (Auto) 0.6 Baso % (Auto) 0.4 Absolute Neuts (auto) 1.6 L Absolute Lymphs (auto) 2.97 Nucleated RBC % 0 D-Dimer Quant (PE/DVT) < 0.27 L Sodium 139 Potassium 3.5 Chloride 105 Carbon Dioxide 26.0 Anion Gap 8 BUN 11 Creatinine 0.92 Estim Creat Clear Calc 70.07 Est GFR (MDRD) Af Amer 92 Est GFR (MDRD) Non-Af 76 BUN/Creatinine Ratio 12.0 Glucose 114 H Calcium 9.6 Total Bilirubin 0.30 Direct Bilirubin 0.09 AST 13 L ALT 29 Alkaline Phosphatase 65 Troponin I High Sens < 3 L Total Protein 7.7 Albumin 4.2 Globulin 3.5 Serum , Qual 11/15/21 18:40 WBC RBC Hgb Hct MCV MCH MCHC RDW Std Deviation RDW Coeff of Ever Plt Count MPV Immature Gran % (Auto) Neut % (Auto) Lymph % (Auto) [place] % (Auto) Eos % (Auto) Baso % (Auto) Absolute Neuts (auto) Absolute Lymphs (auto) Nucleated RBC % D-Dimer Quant (PE/DVT) Sodium Potassium Chloride Carbon Dioxide Anion Gap BUN Creatinine Estim Creat Clear Calc Est GFR (MDRD) Af Amer Est GFR (MDRD) Non-Af BUN/Creatinine Ratio Glucose Calcium Total Bilirubin Direct Bilirubin AST ALT Alkaline Phosphatase Troponin I High Sens Total Protein Albumin Globulin Serum , Qual NEGATIVE Radiography Chest X-Ray - ED: 1 View, Read by ED Physician, Normal, Heart, Lungs and Mediastinum Diagnostic Testing: Clinical Impression(s) from Imaging Studies Chest X-Ray 11/15/21 18:18 IMPRESSION: No radiographic evidence of acute cardiopulmonary disease. Electronically Signed: Rajan Durham MD at 18:52 EDT , EKG Initial EKG: Attestation: I personally reviewed and interpreted this EKG as follows: Interpretation: Sinus Rhythm (Sinus at 96 with nonspecific T wave flattening. No acute ischemia.) Treatment and Re-Evaluation Narrative: On repeat evaluation patient resting comfortably. She is unsure if her symptoms are from the COVID itself or from the Paxlovid. She only has 2 doses of the medication left and I do not feel that she is high enough risk to require this. I recommended she not take the last 2 doses. She will continue supportive care at home. At this time there is no evidence of cardiac disease or PE. There is no infiltrate on her x-ray. She is reassured with these findings. Discharge Plan Triage Chief Complaint: Shortness of Breath ED Provider: Es Alvarado Dx/Rx/DC Orders Clinical Impression: COVID-19 Instructions: Coronavirus Disease 2019 (COVID-19): Overview, Coronavirus Disease 2019 (COVID-19): Caring for Yourself or Others Prescriptions: No Action escitalopram oxalate 20 mg tablet 20 mg PO DAILY Qty: 60 1RF phentermine [Adipex-P] 37.5 mg tablet 37.5 mg PO DAILY 30 Days Qty: 30 0RF Rx Instructions: must administer 30 minutes before or 1-2 hours after breakfast Paxlovid (EUA) 300 mg (150 mg x 2)-100 mg tablet See Rx Instructions PO .COMPLEX Qty: 30 0RF Rx Instructions: take TWO 150 mg tablets of nirmatrelvir with ONE 100 mg tablet of ritonavir twice daily for 5 days PO Primary Care Provider: Juan Alfaro Referrals: Juan Alfaro MD [Primary Care Provider] - 1 Week if not improving Disposition Disposition: Home, Self Care
--- NOTE | 2021-11-15 18:18 | RAD_ITS ---
EXAM: XR CHEST, 1 VIEW CLINICAL INDICATION: sob, covid TECHNIQUE: Frontal view of the chest. This report was created using [employer] report generation technology. COMPARISON: 05/23/2016 FINDINGS: LUNGS AND PLEURAL SPACES: Unremarkable. No consolidation or edema. No pneumothorax. No effusion. HEART: Unremarkable. Cardiac silhouette not enlarged. MEDIASTINUM: Central airways and mediastinal contour are unremarkable. BONES/JOINTS: Unremarkable. SOFT TISSUES: Unremarkable. RAD/Chest 1 View (Portable) IMPRESSION: No radiographic evidence of acute cardiopulmonary disease. Electronically Signed: Rajan Durham MD at 18:52 EDT ,
[2021-11-15] MEDS: Ketorolac 30 MG/ML Syringe IV (18:33)
[2021-11-15] MEDS: Ondansetron 4 MG/2 ML Vial IV (18:33)
[2021-11-15] MEDS: 0.9% Normal Saline 1,000 ML 1000 ML IV (18:34)
[2021-11-15 18:42] VITALS: BP 120/68; PULSE 83; RESP 19; O2SAT 98
[2021-11-15 18:47] LABS: Absolute Lymphocyte Count 2.97 X10^3/uL (0.83-4.51); Absolute Neutrophil Count 1.6 X10^3/uL (2.0-7.7); Basophil# 0.02 X10^3/uL; Basophil% 0.4 % (0-1); Eosinophil# 0.03 X10^3/uL; Eosinophils% 0.6 % (0-5); Hematocrit 37.8 % (37-47); Lymphocyte # 2.97 X10^3/ul (0.83-4.51); Lymphocyte % 59.4 % (19-41); Mean Corp Hgb Conc 34.4 g/dL (32-36); Mean Corpuscular Volume 84.4 fL (81-99); Mean Platelet Vol. 9.2 fl (6.2-12.0); Monocyte# 0.42 X10^3/uL; Monocyte% 8.4 % (0-10); NRBC Flagged by Analyzer 0 % (0-5); Neutrophil # 1.56 X10^3/uL (2.7-7.7); Neutrophil % 31.2 % (47-70); Platelet Count 367 K/mm3 (150-450); RBC Distribution Width CV 11.9 % (11.6-14.6); RBC Distribution Width SD 36.5 fl (35.1-43.9); Red Blood Count 4.48 M/mm3 (4.2-5.4)
[2021-11-15 19:01] LABS: Internal QC Validated? YES +Cl - CLEAR BKGD; Pregnancy, Serum, hCG Quali. NEGATIVE Negative
[2021-11-15 19:12] LABS: AST(SGOT) 13 U/L (15-37); Alanine Aminotransfer ALT/SGPT 29 U/L (13-56); Albumin, Serum 4.2 g/dL (3.2-5.0); Alkaline Phosphatase 65 U/L (45-117); Anion Gap 8 (5-15); BUN 11 mg/dL (7-18); Bilirubin, Direct 0.09 mg/dL (0.00-0.30); Calcium,Total 9.6 mg/dL (8.5-10.1); Chloride 105 mmol/L (98-107); Creatinine, Serum 0.92 mg/dL (0.55-1.02); EST Glomerular Filtration Rate 76 mL/min (>60); Est Glom Filt Rate - Afr Amer 92 mL/min (>60); Estimated Creatinine Clearance 70.07 ml/min; Globulin 3.5 g/dL (2.2-4.2); Glucose 114 mg/dL (74-106); Potassium 3.5 mmol/L (3.5-5.1); Protein, Total 7.7 g/dL (6.4-8.2); Sodium Level 139 mmol/L (136-145); Troponin-I HS < 3 pg/mL (3.0-54.0)
[2021-11-15 19:27] LABS: D-Dimer Quantitative (DVT/PE) < 0.27 FEU/ug/m (0.27-0.49)
[2021-11-15 21:00] VITALS: RESP 16; O2SAT 98
== END 2021-11-15 21:23 | disposition home or self-care (01) ==
PROVIDERS: Emergency Provider Emergency Medicine; PCP Internal Medicine; Visit Provider Emergency Medicine
DX: U07.1 COVID-19 (principal); M54.9 Dorsalgia, unspecified; F17.210 Nicotine dependence, cigarettes, uncomplicated; J45.909 Unspecified asthma, uncomplicated; K58.9 Irritable bowel syndrome, unspecified; E66.9 Obesity, unspecified; M41.9 Scoliosis, unspecified; G89.29 Other chronic pain; Z87.19 Personal history of other diseases of the digestive system; F41.1 Generalized anxiety disorder; Z68.32 Body mass index [BMI] 32.0-32.9, adult
CPT/HCPCS: 71045; 80048; 80076; 84484; 84703; 85025; 85379; 93005; 96361; 96374; 96375; 99283; J7030; A4216; J2405

== ENCOUNTER 2022-04-19 11:20 | Outpatient (CLI) | payer MEDICARE, MEDICAID, SELFPAY ==
[2022-04-19 13:52] LABS: Cholesterol 200 mg/dL (200); High Density Lipoprotein 65 mg/dL; Triglycerides 76 mg/dL; Very Low Density Lipoprotein 15 mg/dL (5-40)
== END 2022-04-19 23:59 | disposition home or self-care (01) ==
LOC: PAVLAB 11:21
PROVIDERS: PCP Internal Medicine; Referring Provider Obstetrics & Gynecology; Visit Provider Obstetrics & Gynecology
DX: E66.9 Obesity, unspecified (principal)
CPT/HCPCS: 36415; 80061; 83036

== ENCOUNTER → 2022-05-28 | Outpatient (CLI) | payer MEDICARE, MEDICAID, SELFPAY ==
[2022-06-04 17:17] LABS: HPV APTIMA, High Risk Positive (Negative)
== END | disposition home or self-care (01) ==
LOC: LABSPEC 16:08
PROVIDERS: PCP Internal Medicine; Visit Provider Obstetrics & Gynecology
DX: Z01.419 Encounter for gynecological examination (general) (routine) without abnormal findings (principal)
CPT/HCPCS: 87624; 88175; G0145

== ENCOUNTER → 2022-06-23 | Outpatient (CLI) | payer MEDICARE, MEDICAID, SELFPAY ==
[2022-06-23 14:01] LABS: Insulin 8.7 mU/L (2.6-37.6); Vitamin D,25 Hydroxy 21.3 ng/mL
[2022-06-23 14:06] LABS: ALB/GLOB Ratio 1.2 RATIO (0.9-2.4); AST(SGOT) 10 U/L (15-37); Alanine Aminotransfer ALT/SGPT 18 U/L (13-56); Albumin, Serum 4.5 g/dL (3.2-5.0); Alkaline Phosphatase 62 U/L (45-117); Anion Gap 6 (5-15); BUN 10 mg/dL (7-18); BUN/Creat Ratio 14.8 RATIO (10-20); Calcium,Total 9.5 mg/dL (8.5-10.1); Chloride 103 mmol/L (98-107); Cholesterol 178 mg/dL (200); Creatinine, Serum 0.68 mg/dL (0.55-1.02); EST Glomerular Filtration Rate 107 mL/min (>60); Est Glom Filt Rate - Afr Amer 130 mL/min (>60); Free T3 2.7 pg/mL (2.18-3.98); Globulin 3.7 g/dL (2.2-4.2); Glucose 93 mg/dL (74-106); High Density Lipoprotein 58 mg/dL; Potassium 3.8 mmol/L (3.5-5.1); Protein, Total 8.2 g/dL (6.4-8.2); Sodium Level 141 mmol/L (136-145); T4 Free Direct 1.16 ng/dL (0.76-1.46); Thyroid Stim Hormone (TSH) 0.72 uIU/mL (0.358-3.74); Triglycerides 89 mg/dL; Very Low Density Lipoprotein 18 mg/dL (5-40)
== END | disposition home or self-care (01) ==
LOC: PAVLAB 12:56
PROVIDERS: PCP Internal Medicine; Referring Provider Internal Medicine; Visit Provider Internal Medicine
DX: E66.9 Obesity, unspecified (principal); E88.81 Metabolic syndrome and other insulin resistance; Z13.1 Encounter for screening for diabetes mellitus; Z13.220 Encounter for screening for lipoid disorders; N92.6 Irregular menstruation, unspecified; E55.9 Vitamin D deficiency, unspecified
CPT/HCPCS: 36415; 80053; 80061; 82306; 83525; 84439; 84443; 84481

== ENCOUNTER → 2022-07-08 | Outpatient (CLI) | payer MEDICARE, MEDICAID, SELFPAY ==
--- NOTE | 2022-07-08 | IMM_PTH ---
PATIENT: COLLIN APARICIO LOC: [facility] U#:[id number] AGE/SX: 32/F ROOM: RE07/08/[address]: Dr. Es Clnie DO : 1990 BED: DIS: 07/08/2022 SPEC #: [id number] RECD: 07/12/22 06:55 STATUS: FRANCESCA REJessica #: [id number] DANIELLE: 07/08/22 00:[address]: Es Cline DEPT: IMMUNOHISTOCHEMISTRY RECD BY: Penelope Bowden ENTERED: 07/12/22 06:56 SP TYPE: IMMUNO OTHR DR: Dr. Krista Parker MD Tissues: A - Uterine cervix, NOS Procedures: p16 (initial) KI-67 (add) PHYSICIAN & INSTITUTION [place] [id number] SPECIMEN INFORMATION: Tissue Source: A ? Cervix at 11 o?clock Clinical Info: ASCUS, HPV positive Specimen Number: [id number] CPT code: 67275, 79120 METHODOLOGY: Deparaffinized sections of prefer/formalin-fixed tissue or PAP/DQ stained slides are incubated with monoclonal/polyclonal antibodies/oligonucleotide probes. Localization is made via biotin free immunoperoxidase method. Appropriate controls are performed and reacted as expected. Results on target cell population are indicated in the following table: RESULTS: ANTIBODY / CLONE RESULT Block A P16 (E6H4) negative Ki-67 (30-9) negative These tests were developed and their performance characteristics determined by [facility]. They may not have been cleared or approved by the U.S. Food and Drug Administration. The FDA has determined that such clearance or approval is not necessary. The above immunohistochemical/dualISH markers are ordered and reviewed by the Pathologist. INTERPRETATION: A. Cervix at 11 o?clock, biopsy: Negative for dysplasia. RIA:myriam 07/12/2022 Case has been reviewed in consultation with Dr. Rolon who concurs with the above diagnosis. IDC:AM
--- NOTE | 2022-07-08 10:15 | CER_PTH ---
PATIENT: COLLIN APARICIO LOC: [facility] U#:[id number] AGE/SX: 32/F ROOM: RE07/08/[address]: Dr. Es Cline DO : 1990 BED: DIS: 07/08/2022 SPEC #: [id number] RECD: 07/08/22 12:41 STATUS: FRANCESCA KINCAID #: [id number] DANIELLE: 07/08/22 10:[address]: Es Cline DEPT: SURGICAL PATHOLOGY RECD BY: Lay Bojorquez ENTERED: 07/08/22 14:02 SP TYPE: CERV OTHR DR: Dr. Krista Parker MD Tissues: A - Uterine cervix, NOS B - Endocervical Procedures: Surgery Specimen Level IV HEADER OPERATION: Colposcopy PRE-OP DIAGNOSIS: ASCUS, HPV positive TISSUE SUBMITTED: A ? 11 o?clock, B ? ECC (brush) MICROSCOPIC DIAGNOSIS A. Cervix, 11 o?clock, biopsy: Moderate chronic inflammation. Negative for dysplasia. See comment. B. Endocervical curettings (brush): Scant fragments of benign endocervical epithelium, denuded benign squamous epithelial cells and mucous, negative for dysplasia. SJ:rg 07/12/2022 COMMENT A. Immunohistochemistry ([id number]) for surrogate HPV marker (p16) supports the above diagnosis. Case has been reviewed in consultation with Dr. Rolon who concurs with the above diagnosis. IDC:AM MICROSCOPIC DESCRIPTION Slides are reviewed. GROSS DESCRIPTION A - Received in fixative is one container labeled with the patient's name and designated 11 o'clock. The specimen consists of one irregular fragment of light miller soft tissue that measures 0.4 x 0.4 x 0.1 cm. The specimen is totally submitted in one cassette. B - Received in fixative is one container labeled with the patient's name and designated ECC (brush). The specimen consists of a metallic endoscopic cytobrush with adherent minute fragments of miller-red tissue brush in 2 ml of clear red fluid. The material is dislodged from the brush and submitted for cytology preparation including cell block. / RIA:myriam 07/08/2022 TC:3 CPT: 75312 x2
== END | disposition home or self-care (01) ==
LOC: LABSPEC 13:11
PROVIDERS: PCP Internal Medicine; Referring Provider Obstetrics & Gynecology; Visit Provider Obstetrics & Gynecology
DX: N72 Inflammatory disease of cervix uteri (principal)
CPT/HCPCS: 88305; 88341; 88342

== ENCOUNTER 2022-09-07 11:26 | Day surgery (SDC) | payer MEDICARE, MEDICAID, SELFPAY ==
[2022-09-07] VITALS (8 sets, daily range): BP systolic 106–135; BP diastolic 63–81; PULSE 72–88; RESP 14–18; TEMP 36.7–36.9; O2SAT 96–100; BMI 31.3
[2022-09-07 12:16] LABS: Internal QC Validated? YES +Cl - CLEAR BKGD; Pregnancy, Urine Negative Negative
[2022-09-07] MEDS: Lactated Ringers 1,000 ML 15 ML IV (12:19)
[2022-09-07 12:29] LABS: Absolute Lymphocyte Count 2.22 X10^3/uL (0.83-4.51); Basophil# 0.03 X10^3/uL; Basophil% 0.5 % (0-1); Eosinophil# 0.01 X10^3/uL; Eosinophils% 0.2 % (0-5); Hemoglobin 12.6 g/dL (12.0-15.0); Lymphocyte # 2.22 X10^3/ul (0.83-4.51); Lymphocyte % 38.3 % (19-41); Mean Corpuscular Hgb 30.1 pg (27.0-32.0); Mean Corpuscular Volume 85.9 fL (81-99); Mean Platelet Vol. 9.5 fl (6.2-12.0); Monocyte# 0.48 X10^3/uL; Monocyte% 8.3 % (0-10); NRBC Flagged by Analyzer 0 % (0-5); Neutrophil # 3.04 X10^3/uL (2.7-7.7); Neutrophil % 52.5 % (47-70); Platelet Count 377 K/mm3 (150-450); RBC Distribution Width CV 12.5 % (11.6-14.6); RBC Distribution Width SD 38.9 fl (35.1-43.9); Red Blood Count 4.19 M/mm3 (4.2-5.4); White Blood Count 5.8 K/mm3 (4.4-11.0)
--- NOTE | 2022-09-07 12:55 | FALS_PTH ---
PATIENT: COLLIN APARICIO LOC: [facility] U#:[id number] AGE/SX: 32/F ROOM: RE09/07/[address]: Dr. Es Cline DO : 1990 BED: DIS: 09/07/2022 SPEC #: [id number] RECD: 09/07/22 14:47 STATUS: FRANCESCA CODI #: [id number] DANIELLE: 09/07/22 12:[address]: Es Cline DEPT: SURGICAL PATHOLOGY RECD BY: Beto Green ENTERED: 09/08/22 08:19 SP TYPE: FALL TUBES OTHR DR: Jacqueline Cordova DO Tissues: Fallopian tube Procedures: Surgery Specimen Level II HEADER OPERATION: Laparoscopic salpingectomy PRE-OP DIAGNOSIS: Contraceptive management TISSUE SUBMITTED: Bilateral fallopian tubes MICROSCOPIC DIAGNOSIS Right and left fallopian tubes, bilateral salpingectomies: Complete cross-sections of fallopian tubes with no pathologic change. AM:myriam 09/09/2022 MICROSCOPIC DESCRIPTION Slides are reviewed. GROSS DESCRIPTION Received in fixative is one container labeled with the patient's name and designated bilateral fallopian tubes. The specimen consists of two fallopian tubes with an average length of 5.2 cm and has an average diameter of 0.5 cm. Both fallopian tubes have normal fimbriated ends. No mass lesions are identified. Health Lead sections are submitted in two cassettes as follows: 1 - one fallopian tube, 2??the other fallopian tube. / AM:myriam 09/08/2022 TC:4 CPT: 54707 x2
--- NOTE | 2022-09-07 13:16 | HP.PCM_ITS ---
History and Physical Date of Admission: 09/07/22 Intake Vital Signs ? 07/30/2314:56 07/30/2314:56 Height 5 ft 2 in 5 ft 2 in Weight: 164 lb ? BMI 29.9 ? BP 138/89 H ? Intake Visit Reasons:?BS/title 19 needs signed Handy Man Required: No Is patient in pain?: No Allergies naproxen Adverse Reaction (Verified 07/30/22 15:56) Othervarenicline tartrate [From Chantix] Adverse Reaction (Verified 07/30/22 15:56) Other Medications cholecalciferol (vitamin D3) 25 mcg (1,000 unit) capsule 25 mcg PO DAILY 06/24/22 [History Confirmed 07/30/22] phentermine 37.5 mg tablet (Adipex-P) 37.5 mg PO DAILY #30 tabs 06/25/22 [Rx Confirmed 07/30/22] desvenlafaxine succinate 25 mg tablet,extended release 24 hr (Pristiq) 25 mg PO DAILY #30 tabs 07/30/22 [Rx Confirmed 07/30/22] Post menopausal: No Patient : No : No PFSH Medical History? Acute appendicitis ASCUS with positive high risk HPV Asthma Chest congestion Chronic back pain Cough Foot pain, bilateral Generalized anxiety disorder GERD (gastroesophageal reflux disease) Hypersomnia IBS (irritable bowel syndrome) Infection of both ears Irregular periods Obesity Pneumonia Preeclampsia Rectal bleeding Right lower quadrant abdominal pain of unknown etiology Scoliosis Spontaneous Suspected COVID-19 virus infection Upper respiratory infection Viral syndrome Surgical History? delivery delivered H/O adenoidectomy H/O knee surgery History of hip surgery History of tonsillectomy Hx of breast reduction, elective S/P laparoscopic appendectomy (~05/06/18) S/P right knee arthroscopy Family History? Mother DepressionAunt Breast cancerGrandmother DiabetesUncle Hyperlipemia Menieres disease Depression Social History? Smoking Status:? Former smoker how long ago did patient quit smoking:? 2011 alcohol intake:? never substance use type:? does not use caffeine:? No what type of physical activity do you participate in:? none, walking, bicycling and weight training frequency:? 5-6 times per week seatbelt use:? always additional social history:? Boyfriend HPI BS/title 19 needs signed Details: COLLIN APARICIO is a 32 year old who presents for pre-op exam for laparoscopic bilateral salpingectomy for permanent sterilization. She is also still suffering with depression. History ? ? ? 3 ? Elective abortions ? Hx Para ? ? ? 2 ? Spontaneous abortions ? Hx # Term Pregnancies ? ? ? 2A ? Ectopic pregnancies ? Hx # Pregnancies ? ? ? 1 ? Multiple births ? # of living children ? ? ? 2 Past Pregnancies Del. Date Name GA/Weeks Outcome Route Bth Weight Infant Gen Labor Lgth Anesthesia Del Locatn Provider FOB 04/19/12 Kika 39 live - full term C- section ? Female ? ? [facility] [place] ? 11/20/18 Eliezer ? spontaneous ? ? Female ? 02/12/20 Mo 39 live - full term 7lbs 15oz Male ? spinal [facility] GP ? Delivery Date: 02/12/20? Last Updated by: Bibi Cordero ? ? ? GDM ROS Const ROS Unobtainable: All systems reviewed & are unremarkable except as noted in H Resp Resp: Reports system reviewed and no additional complaints, except as documented; Denies cough GI GI: Reports as per HPI Psych Psych: Reports system reviewed and no additional complaints, except as documented Exam Const General: cooperative, healthy appearing, comfortable and no acute distress Resp Effort & Inspection: normal respiratory effort Skin General: no rashes or lesions noted Psych Appearance: grossly normal Speech and Movement: speech and movement normal Coding Level of Care Code Off vis,est,level 4 Diagnoses Depression? F32.A Contraceptive management? Z30.9 Assessment and Plan Assessment and Plan (1) Depression: ?Status:?Acute ?Plan: after a long discussion, the decision was made to proceed with medication. She has tried wellbutrin, zoloft, and paxil without success. she is willing to try pristiq (2) Contraceptive management: ?Status:?Acute ?Plan: title 19 and consent signed for tubal today After discussing the patient's diagnosis and treatment plan options, patient wishes to proceed with surgical management.? I have discussed with the patient the risks, benefits, and alternatives of the procedure which include but are not limited to risks of anesthesia, bleeding, infection, possible damage to bowel, bladder, or surrounding vasculature which could lead to additional surgery to evaluate any complications.? Patient agrees to procedure and wishes to proceed.? ACOG/uptodate references given for additional information regarding procedure.? Medications: New desvenlafaxine succinate ER (Pristiq) 25 mg PO DAILY 30 tabs 0RF ?
[2022-09-07] MEDS: Bupivacaine 0.25% 30 ML Vial (14:10)
--- NOTE | 2022-09-07 14:36 | DCINST_ITS ---
Discharge Instructions Diet Discharge Diet: No restrictions Activity Discharge Activity: Return to Normal Activity, May Not Drive (for two weeks or while taking narcotic pain medications.), May Shower and May Take a Tub Bath (in 7 days) May resume sexual activity in: 1 week Weight Bearing Status: Full weight bearing Dressing / Incision Call your doctor if you observe: Using more than 1 pad per hour, Shortness of breath, Chest pain and Uncontrolled pain Suture Line Care: Avoid Pulling/Pushing and Avoid Pinching/Bending Remove Dressing in: 1 week (if present) Cleanse incision/area with: Soap & Water and Keep Dressing Clean & Dry Follow Up Care Please Follow Up With: Es Cline DO When: Call to make an appointment with your doctor for a follow up incision check in 1-2 weeks. Test Results: Test results from this visit will be discussed in further detail at your follow- up appointment, if applicable. Discharge Plan Admission Primary Reason for Your Visit: laparoscopic bilateral salpingectomy Attending Provider: Es Cline Primary Care Provider: Jacqueline Cordova Discharge Orders/Prescriptions Prescriptions: New oxycodone-acetaminophen [Percocet] 5-325 mg tablet 1 tab PO Q4H PRN (Reason: pain) 7 Days Qty: 15 0RF Rx Instructions: 1-2 tabs q 4 hrs as needed for pain naproxen 500 mg tablet 500 mg PO BID PRN (Reason: pain) Qty: 20 0RF Continued desvenlafaxine succinate [Pristiq] 25 mg tablet extended release 24 hr 50 mg PO QHS phentermine [Adipex-P] 37.5 mg tablet 37.5 mg PO DAILY Qty: 30 0RF Rx Instructions: must administer 30 minutes before or 1-2 hours after breakfast BMI 33 Referrals / Follow Up: Jacqueline Cordova DO [Primary Care Provider] - Disposition Disposition (needs filled in before D/C Order can be placed): Home, Self Care
--- NOTE | 2022-09-07 14:40 | PCM.OP.BLANK ---
Operative Report Date of Procedure: 09/07/22 preoperative diagnosis: desires permanent sterilization Postoperative diagnosis: Desires permanent sterilization Procedure: Laparoscopic bilateral salpingectomy Surgeon: Dr. Es Cline DO Wire Straightening Machine Operator: KEVAN Ewing Estimated blood loss: 5 cc Urine output: 300 cc Fluids: 1300 cc Details of the procedure: Patient was brought to the operating room where general anesthesia was found to be adequate. She was prepped and draped in the normal sterile fashion her legs were placed in stirrups a weighted speculum was placed in the vagina. The anterior lip of the cervix was grasped with a single-tooth tenaculum. The uterus was sounded to 12 cm. A uterine manipulator was inserted without difficulty. The speculum was removed and gloves were changed. Attention was turned towards the abdomen. 0.75% Marcaine was injected into the umbilicus and a 5 mm incision was made with an 11 blade scalpel. A 5 mm trocar was inserted into the abdomen under direct visualization using the 5 mm laparoscope. A left lower quadrant 5 mm incision was also made followed by insertion of a 5 mm trocar. Approximately 5 cm above the pubic symphysis in the midline after Marcaine injection a mini grasper and was inserted into the abdomen under direct visualization. The uterus was elevated and manipulated to the right side the left fallopian tube was first grasped with a mini grasper and the underlying mesosalpinx was cauterized and cut to the level of the cornua using the LigaSure device. The fallopian tube was removed through the trocar. The same procedure was performed on the right side. both fallopian tubes were passed off for pathology analysis. Excellent hemostasis was noted at all operative sites. All instruments were removed from the abdomen and CO2 gas was escape from the abdomen. The skin was closed with a 4-0 Monocryl subcuticular stitch and sealed with surgical glue. The vaginal manipulator was removed and a vaginal sweep was performed no foreign objects were left in the vagina. The patient tolerated the procedure well sponge lap needle counts were correct x2 and she is now being brought to the recovery room in stable condition Complications: None Multi Select Codes Urinary/Genital Urinary/Genital CPT Codes: 80579 Laproscopic BS/O
== END 2022-09-07 17:25 | disposition home or self-care (01) ==
LOC: SDC 11:33 → AC 11:33
PROVIDERS: Anesthesiology; PCP Family Medicine; Referring Provider Obstetrics & Gynecology; Visit Provider Obstetrics & Gynecology
PROC: (CPT 58661; principal; 2022-09-07 12:40)
DX: Z30.2 Encounter for sterilization (principal); Z87.891 Personal history of nicotine dependence; F32.A Depression, unspecified; F41.1 Generalized anxiety disorder
CPT/HCPCS: 58661; 00840; 81025; 85025; 86850; 86900; 86901; 88302; J7120; J2405

== ENCOUNTER → 2022-11-12 | Outpatient (CLI) | payer MEDICARE, MEDICAID, SELFPAY ==
[2022-11-12 12:28] LABS: Absolute Lymphocyte Count 2.34 X10^3/uL (0.83-4.51); Absolute Neutrophil Count 2.7 X10^3/uL (2.0-7.7); Basophil# 0.03 X10^3/uL; Basophil% 0.5 % (0-1); Eosinophil# 0.03 X10^3/uL; Eosinophils% 0.5 % (0-5); Hematocrit 34.9 % (37-47); Hemoglobin 11.6 g/dL (12.0-15.0); Lymphocyte # 2.34 X10^3/ul (0.83-4.51); Lymphocyte % 42.2 % (19-41); Mean Corp Hgb Conc 33.2 g/dL (32-36); Mean Corpuscular Hgb 29.4 pg (27.0-32.0); Mean Corpuscular Volume 88.6 fL (81-99); Mean Platelet Vol. 9.1 fl (6.2-12.0); Monocyte# 0.43 X10^3/uL; Monocyte% 7.7 % (0-10); NRBC Flagged by Analyzer 0 % (0-5); Neutrophil # 2.72 X10^3/uL (2.7-7.7); Neutrophil % 49.1 % (47-70); Platelet Count 346 K/mm3 (150-450); RBC Distribution Width CV 12.5 % (11.6-14.6); Red Blood Count 3.94 M/mm3 (4.2-5.4); White Blood Count 5.6 K/mm3 (4.4-11.0)
[2022-11-12 12:46] LABS: Vitamin B12 519 pg/mL (211-911)
[2022-11-12 12:48] LABS: Thyroid Stim Hormone (TSH) 0.76 uIU/mL (0.358-3.74)
== END | disposition home or self-care (01) ==
LOC: MTLAB 10:52
PROVIDERS: PCP Family Medicine; Referring Provider Family Medicine; Visit Provider Family Medicine
DX: Z86.32 Personal history of gestational diabetes (principal)
CPT/HCPCS: 36415; 82607; 84443; 85025

== ENCOUNTER → 2022-12-07 | Outpatient (CLI) | payer MEDICARE, MEDICAID, SELFPAY ==
[2022-12-07 18:21] LABS: Absolute Lymphocyte Count 2.66 X10^3/uL (0.83-4.51); Absolute Neutrophil Count 3.4 X10^3/uL (2.0-7.7); Basophil# 0.06 X10^3/uL; Basophil% 0.9 % (0-1); Eosinophil# 0.04 X10^3/uL; Eosinophils% 0.6 % (0-5); Hematocrit 38.9 % (37-47); Hemoglobin 12.7 g/dL (12.0-15.0); Lymphocyte # 2.66 X10^3/ul (0.83-4.51); Lymphocyte % 39.6 % (19-41); Mean Corp Hgb Conc 32.6 g/dL (32-36); Mean Corpuscular Hgb 29.1 pg (27.0-32.0); Mean Corpuscular Volume 89.2 fL (81-99); Mean Platelet Vol. 9.3 fl (6.2-12.0); Monocyte% 7.5 % (0-10); NRBC Flagged by Analyzer 0 % (0-5); Neutrophil # 3.44 X10^3/uL (2.7-7.7); Neutrophil % 51.3 % (47-70); Platelet Count 340 K/mm3 (150-450); RBC Distribution Width CV 12.2 % (11.6-14.6); RBC Distribution Width SD 39.6 fl (35.1-43.9); Red Blood Count 4.36 M/mm3 (4.2-5.4); White Blood Count 6.7 K/mm3 (4.4-11.0)
[2022-12-07 18:58] LABS: Hemoglobin A1c 4.9 % (3.8-5.6)
[2022-12-07 19:11] LABS: Ferritin 12 ng/mL (8-252); Iron 121 ug/dL (50-170); Iron Binding Capacity,Total 382 ug/dL (250-450)
== END | disposition home or self-care (01) ==
LOC: MTLAB 16:55
PROVIDERS: Nurse Practitioner Women's Health; PCP Family Medicine; Referring Provider Family Medicine; Visit Provider Family Medicine
DX: E66.9 Obesity, unspecified (principal); D64.9 Anemia, unspecified
CPT/HCPCS: 36415; 82728; 83036; 83540; 83550; 85025

== ENCOUNTER → 2023-01-08 | Outpatient (CLI) | payer MEDICARE, MEDICAID, SELFPAY ==
--- NOTE | 2023-01-07 12:45 | MRI_ITS ---
STUDY: MRI LEFT KNEE REASON FOR EXAM: Female, 32 years old. Knee pain and stiffness TECHNIQUE: Standardized fat and water weighted pulse sequences were obtained in all 3 orthogonal planes. COMPARISON: None. FINDINGS: Normal medial meniscus. Normal hyaline cartilage of the medial femorotibial compartment. Normal medial femoral condyle and tibial plateau. Normal medial collateral ligamentous complex (MCL). Normal distal semimembranosus, gracilis and semitendinosus tendons. Normal lateral meniscus. Normal hyaline cartilage of the lateral femorotibial compartment. Normal lateral femoral condyle and tibial plateau. Normal proximal tibiofibular articulation. Normal lateral collateral (fibular) ligament. Normal popliteus tendon. Normal biceps femoris tendon. Normal anterior cruciate ligament (ACL). Normal posterior cruciate ligament (PCL). Normal congruent patellofemoral articulation. Normal hyaline cartilage of the patellofemoral compartment. Normal medial and lateral patellar retinaculum. Normal quadriceps tendon. Normal patellar tendon. Normal Hoffa''s fat pad. There is a small volume joint effusion. The soft tissues are unremarkable. The otherwise visualized osseous structures are unremarkable. MRI/Lower Ext Joint Only (Routine) IMPRESSION: Small joint effusion but no internal derangement. Electronically Signed: Teddy Boston MD at 23:43 EDT ,
== END | disposition home or self-care (01) ==
LOC: MRI 09:40
PROVIDERS: PCP Family Medicine; Referring Provider Orthopaedic Surgery Sports Medicine; Visit Provider Orthopaedic Surgery Sports Medicine
DX: M25.562 Pain in left knee (principal)
CPT/HCPCS: 73721

== ENCOUNTER 2023-01-12 09:31 | Emergency (ER) | payer MEDICARE, MEDICAID, SELFPAY ==
[2023-01-12 09:32] VITALS: BP 119/75; PULSE 96; RESP 14; TEMP 36.1; O2SAT 100; BMI 31.4
--- NOTE | 2023-01-12 09:45 | CT_ITS ---
STUDY: CT ABDOMEN AND PELVIS WITH CONTRAST - URINARY TRACT REASON FOR EXAM: Female, 32 years old. Left abdominal pain RADIATION DOSAGE (If Supplied By Facility): CTDIvol = ( 13.48 ) mGy, DLP = ( 888.05 ) mGycm TECHNIQUE: IV 100mL Isovue-300 was administered. Transaxial images were obtained from the dome of the diaphragm to the symphysis pubis subsequent intravenous contrast administration. Multiplanar coronal and sagittal images were reformatted. Individualized Dose Optimization Techniques Were Used For This CT. COMPARISON: Prior study dated: May 05, 2018 FINDINGS: The visualized lung bases are unremarkable. The visualized portions of the heart are within normal limits. There is a stable low-attenuation focus within the left hepatic lobe adjacent to the falciform ligament suggestive of focal fat. Normal gallbladder and extrahepatic biliary system. Normal spleen. Normal pancreas. Normal bilateral adrenal glands. Normal visualized stomach. Normal small intestine. Normal colon. There are surgical clips in the region of the appendix consistent with a prior appendectomy. Normal abdominal aorta. No retroperitoneal adenopathy. There is a nonobstructing 5 mm right renal calculus. There is a nonobstructing 1.8 mm left renal calculus Normal urinary bladder. Normal abdominal wall. There are degenerative changes of the visualized thoracic and lumbar spine. CT/Abdomen/Pelvis W IV Cont ONLY IMPRESSION: No acute intra-abdominal process. Bilateral nonobstructing renal calculi measuring up to 5 mm on the right. Degenerative changes of the visualized thoracic and lumbar spine. Electronically Signed: Orly Valentino MD at 10:47 EDT ,
--- NOTE | 2023-01-12 09:47 | ED.VIS.GI ---
HPI HPI - GI History of Present Illness Chief Complaint: Abd Pain Informant: patient Narrative Narrative: Patient presents with left-sided abdominal pain. On Tuesday, patient gave her self and Ozempic shot in the left side of her abdomen. Later that evening she started to get pain on the left side of the abdomen. It does radiate down. And even slightly to the lower right but it is clearly in the left side abdomen primarily. Pressing on it makes it worse. She has had nausea but no vomiting. She has had mild constipation but that is not uncommon if she does have irritable bowel syndrome. But this does not feel like irritable bowel to her. Her appetite is down and she is not really eating. No fevers. Nothing really makes it much better or worse consistently. She has been on Ozempic for about 2-1/2 months and never had any reaction to it in the past. Prior abdominal surgeries include appendix, 2 C-sections and tubal ligation. She has not had cholecystectomy. She has had colonoscopies in the past for irritable bowel but does not recall being told she has had diverticula and she has never had diverticulitis that she knows of. [facility] Medical History (Updated 01/12/23 @ 11:[address] Oracio Johnson MD) Acute appendicitis Adopted Anxiety and depression ASCUS with positive high risk HPV Asthma Back pain Chronic back pain Diabetes GERD (gastroesophageal reflux disease) History of IBS HPV test positive Hypersomnia Hypertension IBS (irritable bowel syndrome) Irregular periods Leg cramps Low iron Migraine headache Obesity Pelvic pain Preeclampsia PTSD (post-traumatic stress disorder) Rectal bleeding Scoliosis Shortness of breath on exertion Sleep apnea Spontaneous Suspected COVID-19 virus infection Home Medications desvenlafaxine succinate 50 mg tablet,extended release 24 hr (Pristiq) 50 mg PO DAILY #30 tabs 10/29/22 [Rx Last Taken Unknown] aripiprazole 5 mg tablet 5 mg PO 12/20/22 [History Last Taken Unknown] multivitamin 1 tab PO DAILY 12/20/22 [History Last Taken Unknown] semaglutide 0.25 mg or 0.5 mg (2 mg/3 mL) subcutaneous pen injector (Ozempic) mg subcut 12/20/22 [History Last Taken Unknown] dicyclomine 20 mg tablet 20 mg PO TID PRN abdominal pain #10 tabs 01/12/23 [Rx Last Taken Unknown] ondansetron 4 mg disintegrating tablet 4 mg PO Q8H PRN PRN Nausea #10 tabs 01/12/23 [Rx Last Taken Unknown] Allergy/AdvReac Type Severity Reaction Status Date / Time naproxen AdvReac Other Verified 01/12/23 09:33 varenicline tartrate AdvReac Other Verified 01/12/23 09:33 [From Chantix] Family History Mother Depression Aunt Breast cancer Multiple sclerosis Grandmother Diabetes Uncle Hyperlipemia Menieres disease Depression Grandfather Heart disease Myocardial infarction CVA (cerebral vascular accident) Sister Crohn's disease half sister Other Hypertension Surgical History delivery delivered H/O adenoidectomy H/O knee surgery History of History of hip surgery History of tonsillectomy Hx of breast reduction, elective S/P laparoscopic appendectomy (~05/06/18) S/P right knee arthroscopy Status post bilateral salpingectomy Status post tubal ligation Social History Smoking Status: Former smoker how long ago did patient quit smokin alcohol intake: current alcohol intake frequency: holidays/special occasions only substance use type: does not use caffeine: No what type of physical activity do you participate in: none, walking, bicycling and weight training frequency: 5-6 times per week seatbelt use: always additional social history: Boyfriend ROS ROS ED ROS Narrative A complete review of systems was performed and is negative except as documented in the history of present illness. Some specific details below. Constitutional: No recent fevers or chills. No malaise. EYE: No visual complaints or pain. No icterus. ENT: No difficulty swallowing. No swelling. No pain. CV: No chest pain or palpitations. Respiratory: No dyspnea. No hemoptysis. No difficulty taking breaths. GI: Please see history of present illness. : No frequency dysuria or hematuria. No history of kidney stones. Musculoskeletal: No recent trauma. No pains. Skin: No rash. Nondiaphoretic. Neuro: No weakness or numbness. Endocrine: No polyuria or polydipsia. EXAM Physical Exam Narrative Exam Narrative: CONSTITUTIONAL: Patient is nontoxic in appearance. The patient looks comfortable. HEENT: No notable trauma. Mucous membranes do still appear moist. No sinus tenderness. No indication of pain with swallowing. EYES: No conjunctival injection. No proptosis. CARDIOVASCULAR: Regular rate. Regular rhythm. No notable murmur. No JVD. RESPIRATORY: No respiratory distress. Breathing is unlabored. No wheezes. No rhonchi. No rales. No pain with a deep breath. GASTROINTESTINAL: Not distended. Bowel sounds are normal. I feel no mass. She does have some tenderness in the left mid quadrant. This is really just lateral to the umbilicus. It may be slightly just above this line. But it is not left upper quadrant and is not fully left lower quadrant. No CVA tenderness. No skin changes. GENITOURINARY: No tenderness over the bladder. No CVA tenderness. MUSCULOSKELETAL: Atraumatic. No peripheral edema. No cord. No tenderness along the deep venous system. No asymmetry. NEUROLOGICAL: Patient is alert and appropriate. No focal deficit noted. SKIN: No noted rashes. No diaphoresis. PSYCHIATRIC: Patient is calm. Mood is appropriate. Const Vital Signs: 01/12/23 09:32 Temperature 97.0 F L Temperature Source Temporal Pulse Rate 96 Respiratory Rate 14 Blood Pressure 119/75 Blood Pressure Mean 89 Pulse Ox 100 Oxygen Delivery Method Room Air MDM MDM MDM Narrative Medical decision making narrative: Patient CBC is normal other than mildly low white count which is nonspecific. This could even be related to a viral illness. But is not abnormally low that would show signs of significant neutropenia. Patient's electrolytes show no marked abnormalities. Patient's liver function test are normal. Patient's lipase is negative Patient's serum is negative My independent interpretation of her CT shows no acute process and final reading is similar. Patient is feeling better. She looks better. She has some intermittent cramping. I think we will get Chichoyl for this. We will write for Jayme. I explained that I do not know if this may be some mild viral illness, may be reaction to Ozempic, or could be her irritable bowel syndrome. But I do not think she needs admission at this time. We did discuss reasons that would prompt a return. Lab Data Attestation: I reviewed the patient's lab results. Labs: Laboratory Results - last 24 hr 01/12/23 09:55 WBC 4.0 L RBC 4.14 L Hgb 12.2 Hct 36.4 L MCV 87.9 MCH 29.5 MCHC 33.5 RDW Std Deviation 39.7 RDW Coeff of Ever 12.5 Plt Count 296 MPV 9.0 Immature Gran % (Auto) 0.200 Neut % (Auto) 41.8 L Lymph % (Auto) 47.6 H Gem % (Auto) 8.4 Eos % (Auto) 1.0 Baso % (Auto) 1.0 Absolute Neuts (auto) 1.7 L Absolute Lymphs (auto) 1.92 Nucleated RBC % 0 Sodium 141 Potassium 4.7 Chloride 109 H Carbon Dioxide 26.0 Anion Gap 6 BUN 9 Creatinine 0.79 Estim Creat Clear Calc 77.15 Est GFR (MDRD) Af Amer 108 Est GFR (MDRD) Non-Af 89 BUN/Creatinine Ratio 11.4 Glucose 91 Calcium 9.1 Total Bilirubin 0.50 AST 20 ALT 25 Alkaline Phosphatase 50 Total Protein 7.4 Albumin 4.0 Globulin 3.4 Albumin/Globulin Ratio 1.2 Lipase 44 Serum , Qual NEGATIVE Radiography Diagnostic Testing: Clinical Impression(s) from Imaging Studies Abdomen/Pelvis CT 01/12/23 09:45 IMPRESSION: No acute intra-abdominal process. Bilateral nonobstructing renal calculi measuring up to 5 mm on the right. Degenerative changes of the visualized thoracic and lumbar spine. Electronically Signed: Orly Valentino MD at 10:47 EDT , Discharge Plan Triage Chief Complaint: Abd Pain ED Provider: Oracio Johnson Dx/Rx/DC Orders Clinical Impression: History of irritable bowel syndrome, Nausea & vomiting, Abdominal pain Instructions: ED Abdominal Pain Unkn Cause Fem Prescriptions: New dicyclomine 20 mg tablet 20 mg PO TID PRN (Reason: abdominal pain) Qty: 10 0RF ondansetron [ondansetron] 4 mg tablet,disintegrating 4 mg PO Q8H PRN PRN (Reason: Nausea) Qty: 10 0RF No Action multivitamin Tablet 1 tab PO DAILY aripiprazole 5 mg tablet 5 mg PO Ozempic 0.25 mg or 0.5 mg (2 mg/3 mL) pen injector subcut Patient Comments: INJECT 0.5MG SUBCUTANEOUSLY EVERY WEEK desvenlafaxine succinate [Pristiq] 50 mg tablet extended release 24 hr 50 mg PO DAILY Qty: 30 12RF Primary Care Provider: Jacqueline Cordova Referrals: Jacqueline Cordova, DO [Primary Care Provider] - 3-5 Days if not improving Disposition Disposition: Home, Self Care
[2023-01-12] MEDS: Morphine 4 MG/ML Syringe IV (09:54)
[2023-01-12] MEDS: Ondansetron 4 MG/2 ML Vial IV (09:54)
[2023-01-12 09:58] LABS: Absolute Lymphocyte Count 1.92 X10^3/uL (0.83-4.51); Absolute Neutrophil Count 1.7 X10^3/uL (2.0-7.7); Basophil# 0.04 X10^3/uL; Eosinophil# 0.04 X10^3/uL; Hematocrit 36.4 % (37-47); Hemoglobin 12.2 g/dL (12.0-15.0); Lymphocyte # 1.92 X10^3/ul (0.83-4.51); Lymphocyte % 47.6 % (19-41); Mean Corp Hgb Conc 33.5 g/dL (32-36); Mean Corpuscular Hgb 29.5 pg (27.0-32.0); Mean Corpuscular Volume 87.9 fL (81-99); Monocyte# 0.34 X10^3/uL; Monocyte% 8.4 % (0-10); NRBC Flagged by Analyzer 0 % (0-5); Neutrophil # 1.68 X10^3/uL (2.7-7.7); Neutrophil % 41.8 % (47-70); Platelet Count 296 K/mm3 (150-450); RBC Distribution Width CV 12.5 % (11.6-14.6); RBC Distribution Width SD 39.7 fl (35.1-43.9); Red Blood Count 4.14 M/mm3 (4.2-5.4)
[2023-01-12 10:06] LABS: Internal QC Validated? YES +Cl - CLEAR BKGD; Pregnancy, Serum, hCG Quali. NEGATIVE Negative
[2023-01-12 10:14] LABS: ALB/GLOB Ratio 1.2 RATIO (0.9-2.4); AST(SGOT) 20 U/L (15-37); Alanine Aminotransfer ALT/SGPT 25 U/L (13-56); Alkaline Phosphatase 50 U/L (45-117); Anion Gap 6 (5-15); BUN 9 mg/dL (7-18); BUN/Creat Ratio 11.4 RATIO (10-20); Calcium,Total 9.1 mg/dL (8.5-10.1); Chloride 109 mmol/L (98-107); Creatinine, Serum 0.79 mg/dL (0.55-1.02); EST Glomerular Filtration Rate 89 mL/min (>60); Est Glom Filt Rate - Afr Amer 108 mL/min (>60); Estimated Creatinine Clearance 77.15 ml/min; Globulin 3.4 g/dL (2.2-4.2); Glucose 91 mg/dL (74-106); Lipase 44 U/L (13-75); Potassium 4.7 mmol/L (3.5-5.1); Protein, Total 7.4 g/dL (6.4-8.2); Sodium Level 141 mmol/L (136-145)
[2023-01-12] MEDS: 0.9% Normal Saline 1,000 ML 1000 ML IV (11:00)
[2023-01-12 11:16] LABS: Mucous, Urine 0 SEEN /hpf (<or=2+); Red Blood Cells-Urine 0 SEEN /hpf (0-5); White Blood Cells 0 SEEN /hpf (0-5)
[2023-01-12 11:17] LABS: Color, Urine Yellow (Yellow); Glucose, Dipstick Normal (Normal); Ketone-Dipstick Negative (Negative); Leukocyte Esterase-Dipstick Negative /ul (Negative); Nitrite-Dipstick Negative (Negative); Occult Blood-Urine 10 /ul (Negative); Protein-Dipstick Negative (Negative); Urine Bilirubin Dipstick Negative (Negative); Urine Clarity Clear (Clear); Urine Urobilinogen Normal (Normal); Urine pH 6.5 (5.0 - 8.0)
[2023-01-12 11:30] LABS: Bacteria RARE /hpf (None Seen); Squamous Epithelial Cells - UA 0-5 SEEN /hpf (5-10)
[2023-01-12] MEDS: Dicyclomine 20 MG/2 ML Vial IM (11:31)
== END 2023-01-12 11:38 | disposition home or self-care (01) ==
PROVIDERS: Emergency Provider Emergency Medicine; PCP Family Medicine; Visit Provider Emergency Medicine
DX: R10.9 Unspecified abdominal pain (principal); E11.9 Type 2 diabetes mellitus without complications; K58.9 Irritable bowel syndrome, unspecified; R11.0 Nausea; Z87.891 Personal history of nicotine dependence; I10 Essential (primary) hypertension; F41.8 Other specified anxiety disorders; Z79.899 Other long term (current) drug therapy; Z79.84 Long term (current) use of oral hypoglycemic drugs; Z90.49 Acquired absence of other specified parts of digestive tract
CPT/HCPCS: 74177; 80053; 81001; 83690; 84703; 85025; 96361; 96372; 96374; 96375; 99284; J7030; Q9967; A4216; J2405

== ENCOUNTER → 2023-04-21 | Outpatient (CLI) | payer MEDICARE, MEDICAID, SELFPAY ==
[2023-04-21 15:25] LABS: Absolute Neutrophil Count 2.2 X10^3/uL (2.0-7.7); Basophil# 0.04 X10^3/uL; Basophil% 0.9 % (0-1); Eosinophil# 0.03 X10^3/uL; Eosinophils% 0.7 % (0-5); Hematocrit 36.5 % (37-47); Hemoglobin 12.4 g/dL (12.0-15.0); Lymphocyte % 43.5 % (19-41); Mean Corpuscular Hgb 29.7 pg (27.0-32.0); Mean Corpuscular Volume 87.5 fL (81-99); Mean Platelet Vol. 9.7 fl (6.2-12.0); Monocyte# 0.37 X10^3/uL; NRBC Flagged by Analyzer 0 % (0-5); Neutrophil # 2.15 X10^3/uL (2.7-7.7); Neutrophil % 46.7 % (47-70); Platelet Count 364 K/mm3 (150-450); RBC Distribution Width CV 12.4 % (11.6-14.6); RBC Distribution Width SD 39.3 fl (35.1-43.9); Red Blood Count 4.17 M/mm3 (4.2-5.4); White Blood Count 4.6 K/mm3 (4.4-11.0)
[2023-04-21 15:41] LABS: Ferritin 14 ng/mL (8-252)
== END | disposition home or self-care (01) ==
LOC: MTLAB 12:54
PROVIDERS: PCP Family Medicine; Referring Provider Family Medicine; Visit Provider Family Medicine
DX: D64.9 Anemia, unspecified (principal)
CPT/HCPCS: 36415; 82728; 85025

== ENCOUNTER → 2023-04-22 | Outpatient (CLI) | payer MEDICARE, MEDICAID, SELFPAY | END | disposition home or self-care (01) | LOC: LABSPEC 16:58 | PROVIDERS: PCP Family Medicine; Referring Provider Advanced Practice Midwife; Visit Provider Advanced Practice Midwife | DX: N89.8 Other specified noninflammatory disorders of vagina (principal) | CPT/HCPCS: 87070; 87205 ==

== ENCOUNTER → 2023-05-24 | Outpatient (CLI) | payer MEDICARE, MEDICAID, SELFPAY ==
--- OUTSIDE RECORDS SUMMARY | 2023-05-24 18:31 | XMS RPT_ITS | CCD ---
Author Name Unknown Address [address] [place] [address] Organization [facility] Care Team Providers Care Flume Maker Name Role Phone Gwendolyn GORDON, Afsaneh Alfaro Unavailable Unavailable Primary Care Provider Unavaildeborah Alfaro MD, Efewongbe B Primary Care Provider [phone] Mega Cordova DO Primary Care Provider Oleghe, Efewongbe B Primary Care Provider Oleghe, Efewongbe B Primary Care Provider MEGA CORDOVA Primary Care Unavailable COLIN BELLA Attending Unavailable MEGA CORDOVA Primary Care Unavailable MEGA CORDOVA Primary Care Unavailable Oleghe, Efewongbe B Primary Care Provider ANAI SUTTON Attending Unavailable OLEGHE, EFEWONGBE Primary Care Unavailable ANAI SUTTON Attending Unavailable OLEGHE, EFEWONGBE Primary Care Unavailable ANAI SUTTON Attending Unavailable OLEGHE, EFEWONGBE Primary Care Unavailable ANAI SUTTON Attending Unavailable OLEGHE, EFEWONGBE Primary Care Unavailable ANAI SUTTON Attending Unavailable OLEGHE, EFEWONGBE Primary Care Unavailable ANAI SUTTON Attending Unavailable OLEGHE, EFEWONGBE Primary Care Unavailable Allergies Allergy Classification Reported Allergen(s) Allergy Type Date of Onset Reaction(s) Facility (1 source) naproxen Drug Allergy 7 [facility] (1 source) varenicline Drug Allergy 7 [facility] (17 sources) Naproxen; Translations: [NAPROXEN] Drug Allergy 1 Other (See Comments), Other: See Comments, Other [place] (1 source) varenicline Drug Allergy 0 Other (See Comments) [place] (16 sources) varenicline; Translations: [VARENICLINE] Drug Allergy 0 Other: See Comments, Other [facility] (5 sources) MITE EXTRACT; Translations: [MITE EXTRACT] Drug Allergy 9 Other: See Comments [facility] (10 sources) House dust mite Propensity to adverse reactions 9 Other [facility] (10 sources) Mold Extract Drug Allergy 9 Other [facility] Medications Current Medications Medication Drug Class(es) Dates Sig (Normalized) Sig (Original) [id number] 200 actuat albuterol 0.09 mg/actuat metered dose inhaler (15 sources) beta2-Adrenergic Agonist Start: 03-07-2022 take 1 puff(s) by mouth every four to six hours albuterol 108 (90 Base) MCG/ACT inhaler inhale 1 puff by mouth every 4 to 6 hours if needed for 5 days 0 03/07/2022 Active Completed/Discontinued Medications Medication Drug Class(es) Dates Sig (Normalized) Sig (Original) adapalene 0.003 mg/mg topical gel (5 sources) Retinoid Start: 06-02-2017 Adapalene 0.3 % gel Indications: Acne vulgaris , Cystic acne Apply a pea size amount to affected area every other night for 2 weeks then increase to daily as tolerated 45 g 5 06/02/2017 Active Problems Active Problems Problem Classification Problem Date Documented Date Episodic/Chronic Abdominal pain (1 source) Abdominal pain; Translations: [Unspecified abdominal pain] 01-12-2023 Episodic Anxiety disorders (5 sources) Anxiety; Translations: [Anxiety disorder, unspecified] 04-27-2011 Chronic Asthma (10 sources) Exercise induced bronchospasm; Translations: [Exercise induced bronchospasm] Onset: 06-23-2005 06-23-2005 Chronic Attention-deficit, conduct, and disruptive behavior disorders (5 sources) Attention deficit hyperactivity disorder; Translations: [Attention-deficit hyperactivity disorder, unspecified type] Onset: 09-30-2009 09-30-2009 Chronic Mood disorders (5 sources) Depressive disorder; Translations: [Depression] Onset: 09-17-2011 05-18-2021 Chronic Other connective tissue disease (1 source) Diastasis recti; Translations: [Separation of muscle (nontraumatic), other site] 12-02-2022 Episodic Other connective tissue disease (1 source) Separation of muscle (nontraumatic), other site; Translations: [Diastasis recti] Onset: 12-01-2022 Episodic Other nutritional; endocrine; and metabolic disorders (9 sources) Body mass index 30+ - obesity; Translations: [Body mass index (BMI) 35.0-35.9, adult] Onset: 05-17-2015 11-22-2016 Chronic Other nutritional; endocrine; and metabolic disorders (4 sources) Obesity; Translations: [Obesity, unspecified] 11-12-2022 Chronic Other nutritional; endocrine; and metabolic disorders (9 sources) Insulin resistance; Translations: [Metabolic syndrome] 11-12-2022 Chronic Other nutritional; endocrine; and metabolic disorders (10 sources) Morbid obesity; Translations: [Morbid (severe) obesity due to excess calories] Onset: 05-26-2021 03-08-2022 Chronic Other nutritional; endocrine; and metabolic disorders (1 source) Localized adiposity; Translations: [Localized adiposity] 12-02-2022 Chronic Other nutritional; endocrine; and metabolic disorders (1 source) Localized adiposity; Translations: [Localized adiposity] Onset: 12-01-2022 Chronic Other nutritional; endocrine; and metabolic disorders (2 sources) Metabolic syndrome; Translations: [Metabolic syndrome] Onset: 01-19-2023 Chronic Other nutritional; endocrine; and metabolic disorders (2 sources) Body mass index (BMI) 30.0-30.9, adult; Translations: [Body mass index (BMI) 30.0-30.9, adult] Onset: 01-19-2023 Chronic Other nutritional; endocrine; and metabolic disorders (2 sources) Obesity, unspecified; Translations: [Obesity, unspecified] Onset: 01-19-2023 Chronic Other nutritional; endocrine; and metabolic disorders (2 sources) Body mass index (BMI) 31.0-31.9, adult; Translations: [Body mass index (BMI) 31.0-31.9, adult] Onset: 11-12-2022 Chronic Other nutritional; endocrine; and metabolic disorders (4 sources) Overweight in adulthood with body mass index of 25 or more but less than 30; Translations: [Body mass index (BMI) 28.0-28.9, adult] 02-25-2023 Episodic Other nutritional; endocrine; and metabolic disorders (4 sources) Body mass index 25-29 - overweight; Translations: [Overweight] 02-25-2023 Episodic Other nutritional; endocrine; and metabolic disorders (2 sources) Body mass index (BMI) 27.0-27.9, adult; Translations: [Body mass index (BMI) 27.0-27.9, adult] Onset: 04-29-2023 Episodic Other nutritional; endocrine; and metabolic disorders (2 sources) Overweight; Translations: [Overweight] Onset: 04-29-2023 Episodic Other nutritional; endocrine; and metabolic disorders (2 sources) Body mass index (BMI) 28.0-28.9, adult; Translations: [Body mass index (BMI) 28.0-28.9, adult] Onset: 02-25-2023 Episodic Other upper respiratory disease (1 source) Chronic rhinitis; Translations: [Unspecified sinusitis (chronic)] Chronic Otitis media and related conditions (2 sources) Acute right otitis media; Translations: [Otitis media, unspecified, right ear] Episodic Residual codes; unclassified (12 sources) Obstructive sleep apnea syndrome; Translations: [Obstructive sleep apnea (adult) (pediatric)] Onset: 05-28-2021 11-12-2022 Chronic Unclassified (1 source) No current problems or disability 04-19-2017 Unclassified (1 source) Insulin resistance, unspecified; Translations: [Insulin resistance, unspecified] Onset: 04-29-2023 Past or Other Problems Problem Classification Problem Date Documented Da te Episodic/Chronic Coma; stupor; and brain damage (10 sources) Daytime somnolence; Translations: [Somnolence] Onset: 05-28-2021 03-08-2022 Episodic Spondylosis; intervertebral disc disorders; other back problems (10 sources) Backache; Translations: [Dorsalgia, unspecified] Onset: 05-28-2021 03-08-2022 Episodic Unclassified (1 source) Insulin resistance, unspecified; Translations: [Insulin resistance, unspecified] Onset: 04-29-2023 Results Test Name Value Interpretation Reference Range Facil ity Vital Signs Date Time Vital Sign Value Performing Clinician Faci lity 04-29-2023 14:01-0500 Body height 157.5 cm Anai Sutton MD Work Phone: [facility] 04-29-2023 14:01-0500 Body mass index (BMI) [Ratio] 27.53 kg/m2 Anai Sutton MD Work Phone: [facility] 04-29-2023 14:01-0500 Body weight 68.27 kg Anai Sutton MD Work Phone: [facility] 04-29-2023 14:01-0500 Diastolic blood pressure 76 mm[Hg] Anai Sutton MD Work Phone: [facility] 04-29-2023 14:01-0500 Heart rate 68 /min Anai Sutton MD Work Phone: [facility] 04-29-2023 14:01-0500 Systolic blood pressure 113 mm[Hg] Anai Sutton MD Work Phone: [facility] 03-25-2023 11:04-0400 Body height 157.5 cm Anai Sutton MD Work Phone: [facility] 03-25-2023 11:04-0400 Body mass index (BMI) [Ratio] 28.35 kg/m2 Anai Sutton MD Work Phone: [facility] 03-25-2023 11:04-0400 Body weight 70.31 kg Anai Sutton MD Work Phone: [facility] 03-25-2023 11:04-0400 Diastolic blood pressure 60 mm[Hg] Anai Sutton MD Work Phone: [facility] 03-25-2023 11:04-0400 Heart rate 78 /min Anai Sutton MD Work Phone: [facility] 03-25-2023 11:04-0400 Systolic blood pressure 91 mm[Hg] Anai Sutton MD Work Phone: [facility] 02-25-2023 14:06-0400 Body height 157.5 cm Anai Sutton MD Work Phone: [facility] 02-25-2023 14:06-0400 Body mass index (BMI) [Ratio] 28.97 kg/m2 Anai Sutton MD Work Phone: [facility] 02-25-2023 14:06-0400 Body weight 71.85 kg Anai Sutton MD Work Phone: [facility] 02-25-2023 14:06-0400 Diastolic blood pressure 64 mm[Hg] Anai Sutton MD Work Phone: [facility] 02-25-2023 14:06-0400 Heart rate 76 /min Anai Sutton MD Work Phone: [facility] 02-25-2023 14:06-0400 Systolic blood pressure 96 mm[Hg] Anai Sutton MD Work Phone: [facility] 01-19-2023 15:20-0400 Body height 157.5 cm Anai Sutton MD Work Phone: [facility] 01-19-2023 15:20-0400 Body mass index (BMI) [Ratio] 30.25 kg/m2 Anai Sutton MD Work Phone: [facility] 01-19-2023 15:20-0400 Body weight 75.03 kg Anai Sutton MD Work Phone: [facility] 01-19-2023 15:20-0400 Diastolic blood pressure 67 mm[Hg] Anai Sutton MD Work Phone: [facility] 01-19-2023 15:20-0400 Heart rate 67 /min Anai Sutton MD Work Phone: [facility] 01-19-2023 15:20-0400 Systolic blood pressure 99 mm[Hg] Anai Sutton MD Work Phone: [facility] 12-15-2022 14:50-0400 Body height 157.5 cm Anai Sutton MD Work Phone: [facility] 12-15-2022 14:50-0400 Body mass index (BMI) [Ratio] 30.91 kg/m2 Anai Sutton MD Work Phone: [facility] 12-15-2022 14:50-0400 Body weight 76.66 kg Anai Sutton MD Work Phone: [facility] 12-15-2022 14:50-0400 Diastolic blood pressure 69 mm[Hg] Anai Sutton MD Work Phone: [facility] 12-15-2022 14:50-0400 Heart rate 74 /min Anai Sutton MD Work Phone: [facility] 12-15-2022 14:50-0400 Systolic blood pressure 103 mm[Hg] Anai Sutton MD Work Phone: [facility] 12-01-2022 11:21-0400 Body height 156.2 cm Colin Bella MD Work Phone: [facility] 12-01-2022 11:21-0400 Body temperature 96.69 [degF] Colin Bella MD Work Phone: [facility] 12-01-2022 11:21-0400 Body weight 78.02 kg Colin Bella MD Work Phone: [facility] 12-01-2022 11:21-0400 Diastolic blood pressure 46 mm[Hg] Colin Bella MD Work Phone: [facility] 12-01-2022 11:21-0400 Heart rate 85 /min Colin Bella MD Work Phone: [facility] 12-01-2022 11:21-0400 Systolic blood pressure 103 mm[Hg] Colin Bella MD Work Phone: [facility] 11-12-2022 09:42-0400 Body height 157.5 cm Anai Sutton MD Work Phone: [facility] 11-12-2022 09:42-0400 Body mass index (BMI) [Ratio] 31.28 kg/m2 Anai Sutton MD Work Phone: [facility] 11-12-2022 09:42-0400 Body weight 77.56 kg Anai Sutton MD Work Phone: [facility] 11-12-2022 09:42-0400 Diastolic blood pressure 72 mm[Hg] Anai Sutton MD Work Phone: [facility] 11-12-2022 09:42-0400 Heart rate 81 /min Anai Sutton MD Work Phone: [facility] 11-12-2022 09:42-0400 Systolic blood pressure 109 mm[Hg] Anai Sutton MD Work Phone: [facility] 08-17-2022 18:13-0400 Body temperature 99.3 [degF] Collin Tolentino ZONING ENGINEER.[employer] PUS[employer] Work Phone: [facility] 08-17-2022 18:13-0400 Body weight 76.57 kg Collin Tolentino ZONING ENGINEER.[employer] PUSHER Work Phone: [facility] 08-17-2022 18:13-0400 Diastolic blood pressure 90 mm[Hg] Collin Tolentino ZONING ENGINEER.[employer] PUSHER Work Phone: [facility] 08-17-2022 18:13-0400 Heart rate 102 /min Collin Tolentino ZONING ENGINEER.[employer] PUSHER Work Phone: [facility] 08-17-2022 18:13-0400 Respiratory rate 16 /min Collin Tolentino ZONING ENGINEER.[employer] PUSHER Work Phone: [facility] 08-17-2022 18:13-0400 SaO2% (BldA) [Mass fraction] 99 % Collin Tolentino ZONING ENGINEER.[employer] PUSHER Work Phone: [facility] 08-17-2022 18:13-0400 Systolic blood pressure 136 mm[Hg] Collin Tolentino ZONING ENGINEER.[employer] PUSHER Work Phone: [facility] 01-11-2022 18:23-0400 Body temperature 98.8 [degF] Collin Tolentino ZONING ENGINEER.[employer] PUSHER Work Phone: [facility] 01-11-2022 18:23-0400 Body weight 82.1 kg Collin Tolentino ZONING ENGINEER.[employer] P[employer] Work Phone: [facility] 01-11-2022 18:23-0400 Diastolic blood pressure 84 mm[Hg] Collin Tolentino ZONING ENGINEER.[employer] PUSHER Work Phone: [facility] 01-11-2022 18:23-0400 Heart rate 102 /min Collin Tolentino ZONING ENGINEER.[employer] PUSHER Work Phone: [facility] 01-11-2022 18:23-0400 Respiratory rate 16 /min Collin Tolentino ZONING ENGINEER.[employer] PUSHER Work Phone: [facility] 01-11-2022 18:23-0400 SaO2% (BldA) [Mass fraction] 99 % Collin Tolentino ZONING ENGINEER.[employer] PUSHER Work Phone: [facility] 01-11-2022 18:23-0400 Systolic blood pressure 142 mm[Hg] Collin Tolentino ZONING ENGINEER.FL[employer] PUSHER Work Phone: [facility] Encounters Encounter Date Encounter Type Care Provider Facility Start: 04-29-2023 End: 04-29-2023 ambulatory ANAICHOLO SUTTON [facility] Start: 04-29-2023 End: 04-29-2023 Office outpatient visit 15 minutes Anai Sutton MD Work Phone: [facility] [place] Procedures Date Procedure Procedure Detail Performing Clinician Start: 06-19-2021 Lipid 1996 panel - S ana or Plasma Anai Sutton MD Work Phone: Start: 04-30-2020 Mri any jt lower ext rem w/contrast material Zac Poole Work Phone: Start: 04-30-2020 Arthrocentesis aspir &/inj major jt/bursa w/o us Zac Poole Work Phone: Plan of Treatment Date Care Activity Detail Author Start: 2050 RSV Immunization aged 60 or older (1 - 1-dose 60+ series) RSV Immunization aged 60 or older (1 - 1-dose 60+ series) [facility] Start: 2040 Zoster Vaccines (1 of 2) Zoster Vaccines (1 of 2) [facility] Start: 11-15-2029 DTaP/Tdap/Td vaccine (8 - Td) DTaP/Tdap/Td vaccine (8 - Td) [place] Start: 11-15-2029 DTaP/Tdap/Td Vaccines (9 - Td or Tdap) DTaP/Tdap/Td Vaccines (9 - Td or Tdap) [facility] Start: 06-19-2026 Lipid panel Lipid Panel [facility] Start: 06-03-2023 End: 06-03-2023 Patient encounter procedure 06/03/2023 11:40 AM EST Office Visit [facility] [address] [place] [phone] Anai Sutton MD [address] [place], [place] [phone] [facility] Start: 04-29-2023 End: 04-29-2023 Patient encounter procedure 04/29/2023 2:00 PM EST Office Visit [facility] [place] [address] [place] [phone] Anai Sutton MD [address] [place], [place] [id number] [facility] Start: 03-25-2023 End: 03-25-2023 Patient encounter procedure 03/25/2023 11:10 AM EDT Office Visit [facility] [place] [address] [place] [phone] Anai Sutton MD [address] [place], [place] [id number] [facility] Start: 02-25-2023 End: 02-25-2023 Patient encounter procedure 02/25/2023 2:10 PM EDT Office Visit [facility] [place] [address] [place] [phone] Anai Sutton MD [address] [place], [place] [id number] [facility] [place] Start: 01-21-2023 COVID-19 Vaccine () COVID-19 Vaccine () [facility] Start: 01-21-2023 Influenza vaccination [facility] Start: 01-19-2023 End: 01-19-2023 Patient encounter procedure 01/19/2023 3:20 PM EDT Office Visit [facility] [place] [address] [place] [phone] Anai Sutton MD [address] [place], [place] [phone] [facility] [place] Start: 12-15-2022 End: 12-15-2022 Patient encounter procedure 12/15/2022 3:10 PM EDT Office Visit [facility] [place] [address] [place] [phone] Anai Sutton MD [address] [place], [place] [phone] [facility] Start: 06-19-2022 Diabetes mellitus screening Diabetes Screening [facility] Start: 01-21-2022 Influenza vaccination INFLUENZA (#1) [facility] Start: 10-13-2021 PAP TESTING PAP TESTING [facility] Start: 09-15-2021 COVID-19 VACCINE (4 - Booster for Moderna series) COVID-19 VACCINE (4 - Booster for Moderna series) [facility] Start: 09-15-2021 COVID-19 VACCINE (4 - Moderna series) COVID-19 VACCINE (4 - Moderna series) [facility] Start: 2020 HPV TESTING HPV TESTING [facility] Start: 2020 Screening for malignant neoplasm of cervix [facility] Start: 01-22-2020 Influenza vaccination Flu vaccine (#1) [place], [place] Start: 06-23-2015 Urine microalbumin profile DTAP,TDAP,TD (7 - Td or Tdap) [facility] Start: 2011 Screening for malignant neoplasm of cervix [facility] Start: 2008 ANNUAL PCP TEAM CHRONIC DISEASE VISIT ANNUAL PCP TEAM CHRONIC DISEASE VISIT [facility] Start: 2008 Hepatitis C screening Hepatitis C Screening [facility] Start: 2008 SPIROMETRY SPIROMETRY [facility] Start: 2005 HIV screening HIV screen [place], [place] Start: 04-26-2005 Varicella vaccination Varicella Vaccines (1 of 2 - 2-dose childhood series) [facility] Start: 2002 Depression Screening Depression Screening [facility] Start: 1996 PNEUMOCOCCAL (1 - PCV) PNEUMOCOCCAL (1 - PCV) [facility] Start: 1991 Varicella vaccine (1 of 2 - 2-dose childhood series) Varicella vaccine (1 of 2 - 2-dose childhood series) [place] Start: 1990 HIV screening HIV Screening [facility] Start: 1990 Medicare Advantage Annual Wellness Visit (AWV) Medicare Advantage Annual Wellness Visit (AWV) [facility] Immunizations Immunization Date Immunization Notes Care Provider Iris langley 02-01-2022 influenza virus vaccine, unspecified formulation Anai Sutton MD Work Phone: [facility] 02-13-2021 COVID-19 vaccine, fu ll dose (MODERNA) Collin Tolentino ZONING ENGINEER.[employer] PUSHER Work Phone: [facility] 07-27-2007 human papilloma viru s vaccine, quadrivalent Collin Tolentino ZONING ENGINEER.[employer] PUSHER Work Phone: [facility] Work Phone: 02-14-2007 human papilloma viru s vaccine, quadrivalent Collin Tolentino ZONING ENGINEER.[employer] PUSHER Work Phone: [facility] 01-10-2007 human papilloma viru s vaccine, quadrivalent Collin Tolentino ZONING ENGINEER.[employer] PUSHER Work Phone: [facility] Work Phone: 01-10-2007 Meningococcal, MCV4, unspecified conjugate formulation(groups A, C, Y and W-135) Collinbrit Tolentino ZONING ENGINEER.[facility] Work Phone: [facility] Work Phone: 02-07-2006 hepatitis B vaccine, pediatric or pediatric/adolescent dosage Collin Tolentino ZONING ENGINEER.[facility] Work Phone: [facility] Work Phone: 07-29-2005 hepatitis B vaccine, pediatric or pediatric/adolescent dosage Collin Tolentino ZONING ENGINEER.[facility] Work Phone: [facility] Work Phone: 06-23-2005 hepatitis B vaccine, pediatric or pediatric/adolescent dosage Collin Tolentino ZONING ENGINEER.[facility] Work Phone: [facility] Work Phone: 06-23-2005 tetanus toxoid, redu emmanuel diphtheria toxoid, and acellular pertussis vaccine, adsorbed Collinbrit Tolentino ZONING ENGINEER.[facility] Work Phone: [facility] Work Phone: 03-29-2005 influenza virus vaccine, live, attenuated, for intranasal use Collin Tolentino ZONING ENGINEER.[facility] Work Phone: [facility] Work Phone: 07-22-1999 Chicken Pox (disease) Helen Tolentino ZONING ENGINEER.[facility] Work Phone: [facility] Work Phone: 11-21-1995 diphtheria, tetanus toxoids and pertussis vaccine Collin Tolentino ZONING ENGINEER.[facility] Work Phone: [facility] Work Phone: 11-21-1995 measles, mumps and rubella virus vaccine Collin Tolentino ZONING ENGINEER.[facility] Work Phone: [facility] Work Phone: 11-21-1995 trivalent poliovirus vaccine, live, oral Collinbrit Tolentino ZONING ENGINEER.[employer] Work Phone: [facility] Work Phone: 11-08-1991 diphtheria, tetanus toxoids and pertussis vaccine Collin Tolentino ZONING ENGINEER.[facility] Work Phone: [facility] Work Phone: 11-08-1991 trivalent poliovirus vaccine, live, oral Collin Tolentino ZONING ENGINEER.[facility] Work Phone: [facility] Work Phone: 08-09-1991 haemophilus influenz ae type b vaccine, HbOC conjugate Collin Tolentino ZONING ENGINEER.[facility] Work Phone: [facility] Work Phone: 08-09-1991 measles, mumps and rubella virus vaccine Collin Tolentino ZONING ENGINEER.[facility] Work Phone: [facility] Work Phone: 01-04-1991 haemophilus influenz ae type b vaccine, HbOC conjugate Collin Tolentino ZONING ENGINEER.[facility] Work Phone: [facility] Work Phone: 1990 diphtheria, tetanus toxoids and pertussis vaccine Collin Tolentino ZONING ENGINEER.[facility] Work Phone: [facility] Work Phone: 1990 haemophilus influenz ae type b vaccine, HbOC conjugate Collin Tolentino ZONING ENGINEER.[facility] Work Phone: [facility] Work Phone: 1990 diphtheria, tetanus toxoids and pertussis vaccine Collin Tolentino ZONING ENGINEER.[facility] Work Phone: [facility] Work Phone: 1990 haemophilus influenz ae type b vaccine, HbOC conjugate Collin Tolentino ZONING ENGINEER.[facility] Work Phone: [facility] Work Phone: 1990 trivalent poliovirus vaccine, live, oral Collin Tolentino ZONING ENGINEER.[facility] Work Phone: [facility] Work Phone: 1990 diphtheria, tetanus toxoids and pertussis vaccine Collin Tolentino ZONING ENGINEER.[employer] Work Phone: [facility] Work Phone: 1990 trivalent poliovirus vaccine, live, oral Collin Rajan ZONING ENGINEER.[employer] PUSHER Work Phone: [facility] Work Phone: Payers Date Payer Category Payer Medicare [employer] UHC DUAL COMPLETE [id number] 2022-Present [address] [place] [address] Medicare HMO [id number] 2022 Medicare [id number] 2021 Medicaid [id number] 2021 Medicaid [id number] Social History Date Type Detail Facility Tobacco smoking stat us [facility] Unknown if ever smoked [facility] Start: 1990 [facility] Start: 01-11-2022 End: 11-12-2022 Tobacco smoking status NHIS Ex-smoker [facility] Work Phone: End: 05-23-2011 History of tobacco use Current smoker [facility] Work Phone: End: 05-23-2011 History of tobacco use Cigarette Smoker [facility] Work Phone: Start: 01-11-2022 End: 03-25-2023 Cigarettes smoked current (pack per day) - Reported 0.5 [facility] Start: 01-11-2022 End: 11-12-2022 Tobacco use and exposure Smokeless tobacco non-user [facility] Work Phone: Start: 01-11-2022 End: 03-25-2023 Alcohol intake Current drinker of alcohol (finding) [facility] Start: 01-11-2022 Tobacco Comment quit 2011 [facility] Start: 01-01-2022 End: 01-19-2023 Exposure to SARS-CoV-2 (event) Not sure [facility] Work Phone: Start: 05-11-2022 End: 03-25-2023 Tobacco use panel [facility] Start: 1990 Sex Assigned At Female S [facility] Start: 03-11-2022 Gender identity Identifies as female gender (finding) [facility] Start: 03-11-2022 Sexual orientation Heterosexual (fin ding) [facility] National Score (1-10 0), lower number is lower risk 77 [facility] Clinical Notes 01-07-2016 to 04-29-2023 Anai Sutton MD - 04/29/2023 2:00 PM Serenity Vera LPN - 04/29/2023 2:00 PM Serenity Vera LPN - 03/25/2023 11:10 AM EDTAnai Sutton MD - 03/25/2023 11:10 AM EDTPatient Instructions Note Date & Type Note Facility 04-29-2023 History of Presen t illness Narrative HPI, PHYSICAL EXAMINATION & PLAN HPI: Patient here today for follow up for non-surgical weight loss management Weight trend since last visit: lost 5 lbs over 1 m stable This patient's excess weight is causing the following co-morbid conditions at this time:Other IR Physical Examination: Blood pressure 113/76, pulse 68, height 5' 2 (1.575 m), weight 150 lb 8 oz (68.3 kg). General: This patient is calm and pleasant General: This patient is awake, alert, and oriented, and is in no apparent distress. Extremities: No cyanosis, clubbing or edema/ No calf tenderness/No restrictions of movement, is ambulatory without assistance. Neurological: Intact x 4 extremities, no focal deficits notes. Skin: No rashes or lesions noted. Social History: This patient is alone for the evaluation today. She does notsmoke, and does notdrink alcohol. Current Diet This patient s current diet is: 80% meal plan Her diet contains adequate amounts of protein, adequate amounts of healthy fats, adequate amounts of green, leafy vegetables, and adequate amounts of fruits. Her comfort foods include: none Current Activity This patient currently does exercise for 45 Minutes per session, 4 times per week, including the following: weight lifting and cardio . Current Eating Behaviors This patients demonstrates the following behaviors as they relate to her eating: structured She eats approximately 5-6 times per day. Her last meal/snack was at 6 am/pm. Progress Made Towards Goals: 3 month weight goal: 20 6 month weight goal: 30 12 month weight goal: 0 Plan: Obesity stable Continue current management, continue weight loss program Focus on the meal structure, composition and portion control Other IR Continue current management, continue weight loss program stable Ozempic dose 2 mg Good tolerance [x] Protein goal of 1g protein per 1 kg of ideal body weight: 75 grams [x] Patient advised to maintain a food/exercise/behavior diary until next physician visit and to bring the completed diary to next visit [] Referred patient to surgical weight loss management program (FD to place referral) Other: Physician Diet Recommendations given to patient See Follow up Section of today's encounter for next visit and additional scheduling orders Obtain follow up lab work: BARIATRIC; Non Surg Lab orders: no Patient is not taking anti-obesity medication. I spend a total of 20 minutes on the same day of the visit in discussing/counseling the patient regarding the diet and exercise in order to lose weight.Education on the meal plan and 7 rules of eating is provided. Meal prep is encouraged as a foundation of the meal plan. Food journal is encouraged as a feedback system. Exercise and its role in weight loss is explained. Weight loss medications role in weight loss journey is discussed IR Is associated with obesity and weight loss is discussed as a treatment option for IR Full chart review was performed.Clinical documentation is updated and completed. [facility] NON-SURGICAL WEIGHT LOSS MANAGEMENT PROGRAM ROOMING NOTE: FOLLOW UP VISIT Patient: Collin Aparicio Date of : 1990 Service Date: 04/29/2023 Patient History/Assessment Summary: The patient is a pleasant 32 y.o. year old female, who stands Height: 5' 2 (157.5 cm) tall with a weight of Weight: 150 lb 8 oz (68.3 kg) pounds, resulting in a BMI of Body mass index is 27.53 kg/m . kg/m2. She is here for follow-up for non-surgical treatment of Over weight Patient has the following question(s): none Pre Program Weight Metrics (CARE Path) Date of Initial Consultation:@FLOWLAST([id number])@ Initial Weight: @FLOWLAST([id number])@ Initial BMI: @FLOWLAST([id number])@ [place] Body Weight: @FLOWLAST([id number])@ Excess Body Weight: @FLOWLAST([id number])@ Body Fat Percentage: No flowsheet data found. Subsequent Body Fat Percentage: No flowsheet data found. Pre Program Weight Metrics (Epic) (Surgical Wt Loss Management- baseline) This Visit Non-Surgical Subsequent Eval Date: 04/29/23 Height: 5' 2 (157.5 cm) Weight: 150 lb 6.4 oz (68.2 kg) BMI: 27.51 Weight Change: -4.6 lbs Total Weight Change: <No Previous Non-Surg Weight on File> lbs % EBWL: <UNK>% Subsequent Body Fat %: 33.01 Body Fat % Change: -1.01 Follow Up Weight Metrics Last Three Weights Including Today's Weight: Wt Readings from Last 3 Encounters: 04/29/23 150 lb 8 oz (68.3 kg) 03/25/23 155 lb (70.3 kg) 02/25/23 158 lb 6.4 oz (71.8 kg) Diabetes Do you currently have diabetes? No Are you currently prescribed insulin? No Are you currently prescribed an oral medication for diabetes? No GERD (Gastroesophageal Reflux Disease) Do you currently have GERD? No Do you get heartburn type symptoms more than twice per week? No Are you currently on a medication for GERD? (not TUMS) (examples: Prilosec/omeprazole, Zantac/ranitidine, etc.) No Hyperlipidemia (high cholesterol) Do you currently have a diagnosis of high cholesterol? No Are you currently prescribed a medication for high cholesterol? (examples Lipitor/Atorvastatin, Pravastatin, Zetia, Tricor, etc.) No Have you been diagnosed with high cholesterol but chosen not to take medication? No Hypertension (high blood pressure) Do you currently have a diagnosis of Hypertension? No Are you currently on a medication for Hypertension? No Have you been diagnosed with Hypertension but have chosen not to take the medication? No Sleep Apnea Do you currently have Sleep Apnea? No Are you on a device (CPAP, BiPAP, etc) for Sleep Apnea? No Have you been diagnosed with Sleep Apnea but cannot tolerate or have chosen not to treat? No Comorbids summary (flow sheet comorbids) Falls Risk Assessment Patient does not take medications which affect BP or mental status Patient does not have newly prescribed or changed dosage of medications within past 30 days which affect BP or mental status Patient has not fallen in the past 2 months Patient does not demonstrate unsteady gait Patient uses the following ambulatory assistive devices: none Patient states the presence of the following traits which increases risk of fall: none Patient is not on home O2 Completed by: Angelic Vera LPN documented in this encounter [facility] 03-25-2023 History of Presen t illness Narrative [facility] NON-SURGICAL WEIGHT LOSS MANAGEMENT PROGRAM ROOMING NOTE: FOLLOW UP VISIT Patient: Collin Aparicio Date of : 1990 Service Date: 03/25/2023 Patient History/Assessment Summary: The patient is a pleasant 32 y.o. year old female, who stands Height: 5' 2 (157.5 cm) tall with a weight of Weight: 155 lb (70.3 kg) pounds, resulting in a BMI of Body mass index is 28.35 kg/m . kg/m2. She is here for follow-up for non-surgical treatment of Obesity Patient has the following question(s): none Pre Program Weight Metrics (CARE Path) Date of Initial Consultation:@FLOWLAST([id number])@ Initial Weight: @FLOWLAST([id number])@ Initial BMI: @FLOWLAST([id number])@ [place] Body Weight: @FLOWLAST([id number])@ Excess Body Weight: @FLOWLAST([id number])@ Body Fat Percentage: No flowsheet data found. Subsequent Body Fat Percentage: No flowsheet data found. Pre Program Weight Metrics (Epic) (Surgical Wt Loss Management- baseline) This Visit Non-Surgical Subsequent Eval Date: 03/25/23 Height: 5' 2 (157.5 cm) Weight: 155 lb (70.3 kg) BMI: 28.35 Weight Change: -3.4 lbs Total Weight Change: <No Previous Non-Surg Weight on File> lbs % EBWL: <UNK>% Subsequent Body Fat %: 34.02 Body Fat % Change: -0.74 Follow Up Weight Metrics Last Three Weights Including Today's Weight: Wt Readings from Last 3 Encounters: 03/25/23 155 lb (70.3 kg) 02/25/23 158 lb 6.4 oz (71.8 kg) 01/19/23 165 lb 6.4 oz (75 kg) Diabetes Do you currently have diabetes? No Are you currently prescribed insulin? No Are you currently prescribed an oral medication for diabetes? No GERD (Gastroesophageal Reflux Disease) Do you currently have GERD? Yes Do you get heartburn type symptoms more than twice per week? Yes Are you currently on a medication for GERD? (not TUMS) (examples: Prilosec/omeprazole, Zantac/ranitidine, etc.) Yes Hyperlipidemia (high cholesterol) Do you currently have a diagnosis of high cholesterol? Yes Are you currently prescribed a medication for high cholesterol? (examples Lipitor/Atorvastatin, Pravastatin, Zetia, Tricor, etc.) Yes Have you been diagnosed with high cholesterol but chosen not to take medication? Yes Hypertension (high blood pressure) Do you currently have a diagnosis of Hypertension? Yes Are you currently on a medication for Hypertension? Yes Have you been diagnosed with Hypertension but have chosen not to take the medication? Yes Sleep Apnea Do you currently have Sleep Apnea? No Are you on a device (CPAP, BiPAP, etc) for Sleep Apnea? No Have you been diagnosed with Sleep Apnea but cannot tolerate or have chosen not to treat? No Comorbids summary (flow sheet comorbids) Falls Risk Assessment Patient does not take medications which affect BP or mental status Patient does not have newly prescribed or changed dosage of medications within past 30 days which affect BP or mental status Patient has not fallen in the past 2 months Patient does not demonstrate unsteady gait Patient uses the following ambulatory assistive devices: none Patient states the presence of the following traits which increases risk of fall: none Patient is not on home O2 Completed by: Angelic Vera LPN HPI, PHYSICAL EXAMINATION & PLAN HPI: Patient here today for follow up for non-surgical weight loss management Weight trend since last visit: lost 3 lbs over 1 m stable This patient's excess weight is causing the following co-morbid conditions at this time:Other IR Physical Examination: Blood pressure 91/60, pulse 78, height 5' 2 (1.575 m), weight 155 lb (70.3 kg). General: This patient is calm and pleasant General: This patient is awake, alert, and oriented, and is in no apparent distress. Extremities: No cyanosis, clubbing or edema/ No calf tenderness/No restrictions of movement, is ambulatory without assistance. Neurological: Intact x 4 extremities, no focal deficits notes. Skin: No rashes or lesions noted. Social History: This patient is alone for the evaluation today. She does notsmoke, and does notdrink alcohol. Current Diet This patient s current diet is: 80% meal plan Her diet contains adequate amounts of protein, adequate amounts of healthy fats, adequate amounts of green, leafy vegetables, and adequate amounts of fruits. Her comfort foods include: none Current Activity This patient currently does exercise for 45 Minutes per session, 4 times per week, including the following: weight lifting and cardio . Current Eating Behaviors This patients demonstrates the following behaviors as they relate to her eating: structured She eats approximately 5-6 times per day. Her last meal/snack was at 6 am/pm. Progress Made Towards Goals: 3 month weight goal: 20 6 month weight goal: 30 12 month weight goal: 0 Plan: Obesity stable Continue current management, continue weight loss program Focus on the meal structure, composition and portion control Other IR Continue current management, continue weight loss program stable Ozempic next dose 1 mg Good tolerance [x] Protein goal of 1g protein per 1 kg of ideal body weight: 75 grams [x] Patient advised to maintain a food/exercise/behavior diary until next physician visit and to bring the completed diary to next visit [] Referred patient to surgical weight loss management program (FD to place referral) Other: Physician Diet Recommendations given to patient See Follow up Section of today's encounter for next visit and additional scheduling orders Obtain follow up lab work: BARIATRIC; Non Surg Lab orders: no Patient is not taking anti-obesity medication. I spend a total of 20 minutes on the same day of the visit in discussing/counseling the patient regarding the diet and exercise in order to lose weight.Education on the meal plan and 7 rules of eating is provided. Meal prep is encouraged as a foundation of the meal plan. Food journal is encouraged as a feedback system. Exercise and its role in weight loss is explained. Weight loss medications role in weight loss journey is discussed IR Is associated with obesity and weight loss is discussed as a treatment option for IR Full chart review was performed.Clinical documentation is updated and completed. documented in this encounter [facility] 02-25-2023 History of Presen t illness Narrative [facility] NON-SURGICAL WEIGHT LOSS MANAGEMENT PROGRAM ROOMING NOTE: FOLLOW UP VISIT Patient: Collin Aparicio Date of : 1990 Service Date: 02/25/2023 Patient History/Assessment Summary: The patient is a pleasant 32 y.o. year old female, who stands Height: 5' 2 (157.5 cm) tall with a weight of Weight: 158 lb 6.4 oz (71.8 kg) pounds, resulting in a BMI of Body mass index is 28.97 kg/m . kg/m2. She is here for follow-up for non-surgical treatment of Over weight Patient has the following question(s): none Pre Program Weight Metrics (CARE Path) Date of Initial Consultation:@FLOWLAST([id number])@ Initial Weight: @FLOWLAST([id number])@ Initial BMI: @FLOWLAST([id number])@ [place] Body Weight: @FLOWLAST([id number])@ Excess Body Weight: @FLOWLAST([id number])@ Body Fat Percentage: No flowsheet data found. Subsequent Body Fat Percentage: No flowsheet data found. Pre Program Weight Metrics (Epic) (Surgical Wt Loss Management- baseline) This Visit Non-Surgical Subsequent Eval Date: 02/25/23 Height: 5' 2 (157.5 cm) Weight: 158 lb 6.4 oz (71.8 kg) BMI: 28.97 Weight Change: -7 lbs Total Weight Change: <No Previous Non-Surg Weight on File> lbs % EBWL: <UNK>% Subsequent Body Fat %: 34.76 Body Fat % Change: -1.54 Follow Up Weight Metrics Last Three Weights Including Today's Weight: Wt Readings from Last 3 Encounters: 02/25/23 158 lb 6.4 oz (71.8 kg) 01/19/23 165 lb 6.4 oz (75 kg) 12/15/22 169 lb (76.7 kg) Diabetes Do you currently have diabetes? No Are you currently prescribed insulin? No Are you currently prescribed an oral medication for diabetes? No GERD (Gastroesophageal Reflux Disease) Do you currently have GERD? No Do you get heartburn type symptoms more than twice per week? No Are you currently on a medication for GERD? (not TUMS) (examples: Prilosec/omeprazole, Zantac/ranitidine, etc.) No Hyperlipidemia (high cholesterol) Do you currently have a diagnosis of high cholesterol? No Are you currently prescribed a medication for high cholesterol? (examples Lipitor/Atorvastatin, Pravastatin, Zetia, Tricor, etc.) No Have you been diagnosed with high cholesterol but chosen not to take medication? No Hypertension (high blood pressure) Do you currently have a diagnosis of Hypertension? No Are you currently on a medication for Hypertension? No Have you been diagnosed with Hypertension but have chosen not to take the medication? No Sleep Apnea Do you currently have Sleep Apnea? No Are you on a device (CPAP, BiPAP, etc) for Sleep Apnea? No Have you been diagnosed with Sleep Apnea but cannot tolerate or have chosen not to treat? No Comorbids summary (flow sheet comorbids) Falls Risk Assessment Patient does not take medications which affect BP or mental status Patient does not have newly prescribed or changed dosage of medications within past 30 days which affect BP or mental status Patient has not fallen in the past 2 months Patient does not demonstrate unsteady gait Patient uses the following ambulatory assistive devices: none Patient states the presence of the following traits which increases risk of fall: none Patient is not on home O2 Completed by: Angelic Vera LPN HPI, PHYSICAL EXAMINATION & PLAN HPI: Patient here today for follow up for non-surgical weight loss management Weight trend since last visit: lost 7 lbs over 2 m stable This patient's excess weight is causing the following co-morbid conditions at this time:Other IR Physical Examination: Blood pressure 96/64, pulse 76, height 5' 2 (1.575 m), weight 158 lb 6.4 oz (71.8 kg). General: This patient is calm and pleasant General: This patient is awake, alert, and oriented, and is in no apparent distress. Extremities: No cyanosis, clubbing or edema/ No calf tenderness/No restrictions of movement, is ambulatory without assistance. Neurological: Intact x 4 extremities, no focal deficits notes. Skin: No rashes or lesions noted. Social History: This patient is alone for the evaluation today. She does notsmoke, and does notdrink alcohol. Current Diet This patient s current diet is: 80% meal plan Her diet contains adequate amounts of protein, adequate amounts of healthy fats, adequate amounts of green, leafy vegetables, and adequate amounts of fruits. Her comfort foods include: none Current Activity This patient currently does exercise for 45 Minutes per session, 4 times per week, including the following: weight lifting and cardio . Current Eating Behaviors This patients demonstrates the following behaviors as they relate to her eating: structured She eats approximately 5-6 times per day. Her last meal/snack was at 6 am/pm. Progress Made Towards Goals: 3 month weight goal: 20 6 month weight goal: 30 12 month weight goal: 0 Plan: Obesity stable Continue current management, continue weight loss program Focus on the meal structure, composition and portion control Other IR Continue current management, continue weight loss program stable Ozempic next dose 1 mg Good tolerance [x] Protein goal of 1g protein per 1 kg of ideal body weight: 75 grams [x] Patient advised to maintain a food/exercise/behavior diary until next physician visit and to bring the completed diary to next visit [] Referred patient to surgical weight loss management program (FD to place referral) Other: Physician Diet Recommendations given to patient See Follow up Section of today's encounter for next visit and additional scheduling orders Obtain follow up lab work: BARIATRIC; Non Surg Lab orders: no Patient is not taking anti-obesity medication. I spend a total of 20 minutes on the same day of the visit in discussing/counseling the patient regarding the diet and exercise in order to lose weight.Education on the meal plan and 7 rules of eating is provided. Meal prep is encouraged as a foundation of the meal plan. Food journal is encouraged as a feedback system. Exercise and its role in weight loss is explained. Weight loss medications role in weight loss journey is discussed IR Is associated with obesity and weight loss is discussed as a treatment option for IR Full chart review was performed.Clinical documentation is updated and completed. documented in this encounter [facility] 02-10-2023 Telephone encounter Note Please sign orders. Thank you! [facility] 02-10-2023 Miscellaneous Notes Please sign orders. Thank you! Patient left VM that she will run out of ozempic before her next apt with NK. Requesting a refill. documented in this encounter [facility] 02-10-2023 Telephone encounter Note Patient left VM that she will run out of ozempic before her next apt with NK. Requesting a refill. [facility] 01-19-2023 History of Presen t illness Narrative [facility] NON-SURGICAL WEIGHT LOSS MANAGEMENT PROGRAM ROOMING NOTE: FOLLOW UP VISIT Patient: Collin Aparicio Date of : 1990 Service Date: 01/19/2023 Patient History/Assessment Summary: The patient is a pleasant 32 y.o. year old female, who stands Height: 5' 2 (157.5 cm) tall with a weight of Weight: 165 lb 6.4 oz (75 kg) pounds, resulting in a BMI of Body mass index is 30.25 kg/m . kg/m2. She is here for follow-up for non-surgical treatment of Over weight Patient has the following question(s): none Pre Program Weight Metrics (CARE Path) Date of Initial Consultation:@FLOWLAST([id number])@ Initial Weight: @FLOWLAST([id number])@ Initial BMI: @FLOWLAST([id number])@ [place] Body Weight: @FLOWLAST([id number])@ Excess Body Weight: @FLOWLAST([id number])@ Body Fat Percentage: No flowsheet data found. Subsequent Body Fat Percentage: No flowsheet data found. Pre Program Weight Metrics (Epic) (Surgical Wt Loss Management- baseline) This Visit Non-Surgical Subsequent Eval Date: 01/19/23 Height: 5' 2 (157.5 cm) Weight: 165 lb 6.4 oz (75 kg) BMI: 30.25 Weight Change: -3.6 lbs Total Weight Change: <No Previous Non-Surg Weight on File> lbs % EBWL: <UNK>% Subsequent Body Fat %: 36.3 Body Fat % Change: -0.79 Follow Up Weight Metrics Last Three Weights Including Today's Weight: Wt Readings from Last 3 Encounters: 01/19/23 165 lb 6.4 oz (75 kg) 12/15/22 169 lb (76.7 kg) 11/12/22 171 lb (77.6 kg) Diabetes Do you currently have diabetes? No Are you currently prescribed insulin? No Are you currently prescribed an oral medication for diabetes? No GERD (Gastroesophageal Reflux Disease) Do you currently have GERD? No Do you get heartburn type symptoms more than twice per week? No Are you currently on a medication for GERD? (not TUMS) (examples: Prilosec/omeprazole, Zantac/ranitidine, etc.) No Hyperlipidemia (high cholesterol) Do you currently have a diagnosis of high cholesterol? No Are you currently prescribed a medication for high cholesterol? (examples Lipitor/Atorvastatin, Pravastatin, Zetia, Tricor, etc.) No Have you been diagnosed with high cholesterol but chosen not to take medication? No Hypertension (high blood pressure) Do you currently have a diagnosis of Hypertension? No Are you currently on a medication for Hypertension? No Have you been diagnosed with Hypertension but have chosen not to take the medication? No Sleep Apnea Do you currently have Sleep Apnea? Yes Are you on a device (CPAP, BiPAP, etc) for Sleep Apnea? Yes Have you been diagnosed with Sleep Apnea but cannot tolerate or have chosen not to treat? No Comorbids summary (flow sheet comorbids) Falls Risk Assessment Patient does not take medications which affect BP or mental status Patient does not have newly prescribed or changed dosage of medications within past 30 days which affect BP or mental status Patient has not fallen in the past 2 months Patient does not demonstrate unsteady gait Patient uses the following ambulatory assistive devices: none Patient states the presence of the following traits which increases risk of fall: none Patient is not on home O2 Completed by: Angelic Vera LPN HPI, PHYSICAL EXAMINATION & PLAN HPI: Patient here today for follow up for non-surgical weight loss management Weight trend since last visit: lost 4 lbs over 1 m stable This patient's excess weight is causing the following co-morbid conditions at this time:Other IR Physical Examination: Blood pressure 99/67, pulse 67, height 5' 2 (1.575 m), weight 165 lb 6.4 oz (75 kg). General: This patient is calm and pleasant General: This patient is awake, alert, and oriented, and is in no apparent distress. Extremities: No cyanosis, clubbing or edema/ No calf tenderness/No restrictions of movement, is ambulatory without assistance. Neurological: Intact x 4 extremities, no focal deficits notes. Skin: No rashes or lesions noted. Social History: This patient is alone for the evaluation today. She does notsmoke, and does notdrink alcohol. Current Diet This patient s current diet is: 80% meal plan Her diet contains adequate amounts of protein, adequate amounts of healthy fats, adequate amounts of green, leafy vegetables, and adequate amounts of fruits. Her comfort foods include: none Current Activity This patient currently does exercise for 45 Minutes per session, 4 times per week, including the following: weight lifting and cardio . Current Eating Behaviors This patients demonstrates the following behaviors as they relate to her eating: structured She eats approximately 5-6 times per day. Her last meal/snack was at 6 am/pm. Progress Made Towards Goals: 3 month weight goal: 20 6 month weight goal: 30 12 month weight goal: 0 Plan: Obesity stable Continue current management, continue weight loss program Focus on the meal structure, composition and portion control Other IR Continue current management, continue weight loss program stable Ozempic next dose 0.5 mg Good tolerance [x] Protein goal of 1g protein per 1 kg of ideal body weight: 75 grams [x] Patient advised to maintain a food/exercise/behavior diary until next physician visit and to bring the completed diary to next visit [] Referred patient to surgical weight loss management program (FD to place referral) Other: Physician Diet Recommendations given to patient See Follow up Section of today's encounter for next visit and additional scheduling orders Obtain follow up lab work: BARIATRIC; Non Surg Lab orders: no Patient is not taking anti-obesity medication. I spend a total of 20 minutes on the same day of the visit in discussing/counseling the patient regarding the diet and exercise in order to lose weight.Education on the meal plan and 7 rules of eating is provided. Meal prep is encouraged as a foundation of the meal plan. Food journal is encouraged as a feedback system. Exercise and its role in weight loss is explained. Weight loss medications role in weight loss journey is discussed IR Is associated with obesity and weight loss is discussed as a treatment option for IR Full chart review was performed.Clinical documentation is updated and completed. documented in this encounter [facility] 01-12-2023 Note HNO ID: [id number] Author: Shelia Tapia PA-C Service: ? 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 She rates it a 9/10 in upper abdomen. She feels nauseated. Patient in tears and in obvious pain here. She just started ozempic as well. I recommended being seen I the ER. She will go to [facility] for further care. [facility] 01-12-2023 History of Presen t illness Narrative Patient presents with express care with severe abdominal pain for 2 days. She rates it a 9/10 in upper abdomen. She feels nauseated. Patient in tears and in obvious pain here. She just started ozempic as well. I recommended being seen I the ER. She will go to [facility] for further care. documented in this encounter [facility] 12-15-2022 History of Presen t illness Narrative [facility] NON-SURGICAL WEIGHT LOSS MANAGEMENT PROGRAM ROOMING NOTE: FOLLOW UP VISIT Patient: Collin Aparicio Date of : 1990 Service Date: 12/15/2022 Patient History/Assessment Summary: The patient is a pleasant 32 y.o. year old female, who stands Height: 5' 2 (157.5 cm) tall with a weight of pounds, resulting in a BMI of Body mass index is 31.28 kg/m . kg/m2. She is here for follow-up for non-surgical treatment of Over weight Patient has the following question(s): none Pre Program Weight Metrics ([facility]ARE [facility]) Date of Initial Consultation:@FLOWLAST([id number])@ Initial Weight: @FLOWLAST([id number])@ Initial BMI: @FLOWLAST([id number])@ [place] Body Weight: @FLOWLAST([id number])@ Excess Body Weight: @FLOWLAST([id number])@ Body Fat Percentage: No flowsheet data found. Subsequent Body Fat Percentage: No flowsheet data found. Pre Program Weight Metrics (Epic) (Surgical Wt Loss Management- baseline) This Visit Follow Up Weight Metrics Last Three Weights Including Today's Weight: Wt Readings from Last 3 Encounters: 11/12/22 171 lb (77.6 kg) 06/19/21 196 lb 12.8 oz (89.3 kg) 05/28/21 190 lb 3.2 oz (86.3 kg) Diabetes Do you currently have diabetes? No Are you currently prescribed insulin? No Are you currently prescribed an oral medication for diabetes? No GERD (Gastroesophageal Reflux Disease) Do you currently have GERD? No Do you get heartburn type symptoms more than twice per week? No Are you currently on a medication for GERD? (not TUMS) (examples: Prilosec/omeprazole, Zantac/ranitidine, etc.) No Hyperlipidemia (high cholesterol) Do you currently have a diagnosis of high cholesterol? No Are you currently prescribed a medication for high cholesterol? (examples Lipitor/Atorvastatin, Pravastatin, Zetia, Tricor, etc.) No Have you been diagnosed with high cholesterol but chosen not to take medication? No Hypertension (high blood pressure) Do you currently have a diagnosis of Hypertension? No Are you currently on a medication for Hypertension? No Have you been diagnosed with Hypertension but have chosen not to take the medication? No Sleep Apnea Do you currently have Sleep Apnea? Yes Are you on a device (CPAP, BiPAP, etc) for Sleep Apnea? Yes Have you been diagnosed with Sleep Apnea but cannot tolerate or have chosen not to treat? No Comorbids summary (flow sheet comorbids) Falls Risk Assessment Patient does not take medications which affect BP or mental status Patient does not have newly prescribed or changed dosage of medications within past 30 days which affect BP or mental status Patient has not fallen in the past 2 months Patient does not demonstrate unsteady gait Patient uses the following ambulatory assistive devices: none Patient states the presence of the following traits which increases risk of fall: none Patient is not on home O2 Completed by: Angelic Vera LPN HPI, PHYSICAL EXAMINATION & PLAN HPI: Patient here today for follow up for non-surgical weight loss management Weight trend since last visit: lost 2 lbs over 1 m stable This patient's excess weight is causing the following co-morbid conditions at this time:Other IR Physical Examination: BP 103/69 Pulse 74 Ht 5' 2 (1.575 m) Wt 169 lb (76.7 kg) BMI 30.91 kg/m General: This patient is calm and pleasant General: This patient is awake, alert, and oriented, and is in no apparent distress. Extremities: No cyanosis, clubbing or edema/ No calf tenderness/No restrictions of movement, is ambulatory without assistance. Neurological: Intact x 4 extremities, no focal deficits notes. Skin: No rashes or lesions noted. Social History: This patient is alone for the evaluation today. She does notsmoke, and does notdrink alcohol. Current Diet This patient s current diet is: 80% meal plan Her diet contains adequate amounts of protein, adequate amounts of healthy fats, adequate amounts of green, leafy vegetables, and adequate amounts of fruits. Her comfort foods include: none Current Activity This patient currently does exercise for 45 Minutes per session, 4 times per week, including the following: weight lifting and cardio . Current Eating Behaviors This patients demonstrates the following behaviors as they relate to her eating: structured She eats approximately 5-6 times per day. Her last meal/snack was at 6 am/pm. Progress Made Towards Goals: 3 month weight goal: 20 6 month weight goal: 30 12 month weight goal: 0 Plan: Obesity stable Continue current management, continue weight loss program Focus on the meal structure, composition and portion control Other IR Continue current management, continue weight loss program stable Ozempic next dose 0.5 mg Good tolerance [x] Protein goal of 1g protein per 1 kg of ideal body weight: 75 grams [x] Patient advised to maintain a food/exercise/behavior diary until next physician visit and to bring the completed diary to next visit [] Referred patient to surgical weight loss management program (FD to place referral) Other: Physician Diet Recommendations given to patient See Follow up Section of today's encounter for next visit and additional scheduling orders Obtain follow up lab work: BARIATRIC; Non Surg Lab orders: no Patient is not taking anti-obesity medication. I spend a total of 20 minutes on the same day of the visit in discussing/counseling the patient regarding the diet and exercise in order to lose weight.Education on the meal plan and 7 rules of eating is provided. Meal prep is encouraged as a foundation of the meal plan. Food journal is encouraged as a feedback system. Exercise and its role in weight loss is explained. Weight loss medications role in weight loss journey is discussed IR Is associated with obesity and weight loss is discussed as a treatment option for IR Full chart review was performed.Clinical documentation is updated and completed. documented in this encounter [facility] 12-01-2022 Note HNO ID: [id number] Author: ST [facility]by Service: ? Author Type: Agricultural Specialist Type: Progress Notes Filed: 12/01/2022 12:11 PM Note Text: DATE OF PHOTOS: 12/01/2022 Body Part: Breasts and Abdomen [facility] Darby December 01, 2022 12:10 PM [facility] 12-01-2022 Note HNO ID: [id number] Author: Colin Bella MD Service: ? Author Type: Physician Type: Progress Notes Filed: 12/02/2022 2:42 PM Note Text: Plastic Surgery Note CC: Consultation for Abdominoplasty HPI: Collin is a 32 year old female presenting today for a consultation for abdominoplasty. Bothered by fullness of her abdomen. Reports having rashes under her abdominal folds requiring several course of antibiotics. States discomfort and pulling at her right hip labral tear repair due to excess abdominal skin. YASSINE 06/23/2011: consult for abdominoplasty/abdominal liposuction, however, encouraged weight loss prior to elective cosmetic body contouring procedures. S/p bilateral breast reduction 03/2006 Happy with size and shape with breasts 50 lb weight loss through Adipex and Ozempic PARA: 2 Abdominal surgeries: x 2, lap appendectomy 2018, Personal or family hx of DVT/PE/clotting disorder: Denies DM: Gestational diabetes resolved; insulin resistance Smoking history: Former smoker, quit 2011 Lives: [place], near [place] PAST MEDICAL HISTORY Diagnosis Date Anxiety Asthma Attention deficit disorder with hyperactivity(314.01) Bacterial vaginosis Depression IBS (irritable bowel syndrome) Non morbid obesity due to excess calories 05/17/2015 PCOS (polycystic ovarian syndrome) Dr. Garcia diagnosed Scoliosis H/O scolisos 13 degree from T11-L4, had xray 08/28/09. Denies injury. Tobacco use complicating 09/17/2011 Quit 10/10 1-2/day- encouraged cessation PAST SURGICAL HISTORY Procedure Laterality Date DELIVERY ONLY 04/19/12 , low transverse COLONOSCOPY FLX DX W/COLLJ SPEC WHEN PFRMD 01/07/2016 Colonoscopy ESOPHAGOGASTRODUODENOSCOPY TRANSORAL DIAGNOSTIC 10/30/14 EGD PAST SURGICAL HISTORY OF 08/26 pelvic exam under anesth./ PAST SURGICAL HISTORY OF 2013 dental extractions REDUCTION OF LARGE BREAST 03/28 TONSILLECTOMY HX tonsils and adnoids removed Current Outpatient Medications Medication Sig Dispense Refill ARIPiprazole (ABILIFY) 5 mg tablet Take 5 mg by mouth. desvenlafaxine ER (PRISTIQ) 25 mg 24 hr tablet Take 25 mg by mouth once daily. phentermine HCl (ADIPEX-P ORAL) Take by mouth. Fsutiyyhitpxu-Zg-Bwtq-Minerals (MULTIPLE VITAMIN, WOMENS) tab Take 1 tablet by mouth once daily. (Patient not taking: Reported on 01/11/2022) glycopyrrolate (ROBINUL) 1 mg tablet Take 1 tablet by mouth three times daily. 90 tablet 2 Benzoyl Peroxide 5 % external wash Wash face and chest once daily as tolerated. Can bleach towels 1 Bottle 5 Adapalene 0.3 % gel Apply a pea size amount to affected area every other night for 2 weeks then increase to daily as tolerated 45 g 5 vilazodone (VIIBRYD) 20 mg Take 1 tablet by mouth daily with breakfast. As directed (Patient not taking: Reported on 06/02/2017 ) 30 tablet 2 ibuprofen (MOTRIN) 800 mg tablet Take 1 tablet by mouth every 8 hours as needed. (Patient not taking: Reported on 01/11/2022) 60 tablet 0 albuterol HFA (PROVENTIL HFA, VENTOLIN HFA) 90 mcg/actuation inhaler Inhale 2 Puffs as instructed every 6 hours as needed for Wheezing/Shortness of Breath. (Patient not taking: Reported on 01/11/2022) 1 Inhaler 0 No current facility-administered medications for this visit. ALLERGIES Allergen Reactions Mite Extract Other: See Comments Chantix [Vareniclin* Other: See Comments Vomiting, diarrhea, bad dreams, restlessness, insomnia Naproxen Other: See Comments Broke out in sweats, nightmares and all did was sleep Objective: BP (!) 103/46 Pulse 85 Temp (!) 35.9 ?C (96.7 ?F) Ht 156.2 cm (5' 1.5 ) Wt 78 kg (172 lb) LMP 08/12/2022 (Exact Date) BMI 31.97 kg/m? PE: AANDO x 3; NAD Localized adiposity and excess skin of the abdomen Intra-abdominal adiposity Diastasis recti No palpable hernias Striae Scars: low transverse scar Breast scars healed well Some involution status post 2 pregnancies. Grade 1 ptosis with glandular ptosis. Slight widening of the areolas over time through . Assessment: Consult for abdominoplasty S/p bilateral breast reduction 2005 Patient's BMI is 31 and therefore, some weight loss could help the aesthetic outcome and decrease complications intra-abdominal contents and adiposity are limiting factors as to how flat she could be. She may have some functional benefit with removal of excess abdominal skin. I do think she should look quite good after abdominoplasty surgery. Procedure, r/b/a discussed including but not limited to: incision placement, risks for bleeding, infection, blood clots, hypertrophic scarring, seroma, asymmetries, skin necrosis, reasons for revisions, use of drainage tubes, recovery, postoperative wound healing complications. Patient verbalized understanding. Plan: Abdomen and post op breast photos today Financial information to be given be Follow up for preoperativ (more content not included)... [facility] 12-01-2022 History of Presen t illness Narrative DATE OF PHOTOS: 12/01/2022 Body Part: Breasts and Abdomen [facility] December 01, 2022 12:10 PM documented in this encounter [facility] 12-01-2022 History of Presen t illness Narrative Plastic Surgery Note CC: Consultation for Abdominoplasty HPI: Collin is a 32 year old female presenting today for a consultation for abdominoplasty. Bothered by fullness of her abdomen. Reports having rashes under her abdominal folds requiring several course of antibiotics. States discomfort and pulling at her right hip labral tear repair due to excess abdominal skin. YASSINE 06/23/2011: consult for abdominoplasty/abdominal liposuction, however, encouraged weight loss prior to elective cosmetic body contouring procedures. S/p bilateral breast reduction 03/2006 Happy with size and shape with breasts 50 lb weight loss through Adipex and Ozempic PARA: 2 Abdominal surgeries: x 2, lap appendectomy 2018, Personal or family hx of DVT/PE/clotting disorder: Denies DM: Gestational diabetes resolved; insulin resistance Smoking history: Former smoker, quit 2011 Lives: [place], near [place] PAST MEDICAL HISTORY Diagnosis Date Anxiety Asthma Attention deficit disorder with hyperactivity(314.01) Bacterial vaginosis Depression IBS (irritable bowel syndrome) Non morbid obesity due to excess calories 05/17/2015 PCOS (polycystic ovarian syndrome) Dr. Garcia diagnosed Scoliosis H/O scolisos 13 degree from T11-L4, had xray 08/28/09. Denies injury. Tobacco use complicating 09/17/2011 Quit 10/10 1-2/day- encouraged cessation PAST SURGICAL HISTORY Procedure Laterality Date DELIVERY ONLY 04/19/12 , low transverse COLONOSCOPY FLX DX W/COLLJ SPEC WHEN PFRMD 01/07/2016 Colonoscopy ESOPHAGOGASTRODUODENOSCOPY TRANSORAL DIAGNOSTIC 10/30/14 EGD PAST SURGICAL HISTORY OF 08/26 pelvic exam under anesth./ PAST SURGICAL HISTORY OF 2013 dental extractions REDUCTION OF LARGE BREAST 03/28 TONSILLECTOMY HX -2009 tonsils and adnoids removed Current Outpatient Medications Medication Sig Dispense Refill ARIPiprazole (ABILIFY) 5 mg tablet Take 5 mg by mouth. desvenlafaxine ER (PRISTIQ) 25 mg 24 hr tablet Take 25 mg by mouth once daily. phentermine HCl (ADIPEX-P ORAL) Take by mouth. Mvfiwnaeqbixh-Nq-Nwkv-Minerals (MULTIPLE VITAMIN, WOMENS) tab Take 1 tablet by mouth once daily. (Patient not taking: Reported on 01/11/2022) glycopyrrolate (ROBINUL) 1 mg tablet Take 1 tablet by mouth three times daily. 90 tablet 2 Benzoyl Peroxide 5 % external wash Wash face and chest once daily as tolerated. Can bleach towels 1 Bottle 5 Adapalene 0.3 % gel Apply a pea size amount to affected area every other night for 2 weeks then increase to daily as tolerated 45 g 5 vilazodone (VIIBRYD) 20 mg Take 1 tablet by mouth daily with breakfast. As directed (Patient not taking: Reported on 06/02/2017 ) 30 tablet 2 ibuprofen (MOTRIN) 800 mg tablet Take 1 tablet by mouth every 8 hours as needed. (Patient not taking: Reported on 01/11/2022) 60 tablet 0 albuterol HFA (PROVENTIL HFA, VENTOLIN HFA) 90 mcg/actuation inhaler Inhale 2 Puffs as instructed every 6 hours as needed for Wheezing/Shortness of Breath. (Patient not taking: Reported on 01/11/2022) 1 Inhaler 0 No current facility-administered medications for this visit. ALLERGIES Allergen Reactions Mite Extract Other: See Comments Chantix [Vareniclin* Other: See Comments Vomiting, diarrhea, bad dreams, restlessness, insomnia Naproxen Other: See Comments Broke out in sweats, nightmares and all did was sleep Objective: BP (!) 103/46 Pulse 85 Temp (!) 35.9 C (96.7 F) Ht 156.2 cm (5' 1.5 ) Wt 78 kg (172 lb) LMP 08/12/2022 (Exact Date) BMI 31.97 kg/m PE: A&O x 3; NAD Localized adiposity and excess skin of the abdomen Intra-abdominal adiposity Diastasis recti No palpable hernias Striae Scars: low transverse scar Breast scars healed well Some involution status post 2 pregnancies. Grade 1 ptosis with glandular ptosis. Slight widening of the areolas over time through . Assessment: Consult for abdominoplasty S/p bilateral breast reduction 2005 Patient's BMI is 31 and therefore, some weight loss could help the aesthetic outcome and decrease complications intra-abdominal contents and adiposity are limiting factors as to how flat she could be. She may have some functional benefit with removal of excess abdominal skin. I do think she should look quite good after abdominoplasty surgery. Procedure, r/b/a discussed including but not limited to: incision placement, risks for bleeding, infection, blood clots, hypertrophic scarring, seroma, asymmetries, skin necrosis, reasons for revisions, use of drainage tubes, recovery, postoperative wound healing complications. Patient verbalized understanding. Plan: Abdomen and post op breast photos today Financial information to be given be Follow up for preoperative visit to discuss once more prior to surgery. The patient is seen and examined by Dr. Bella and the following reflects his service. Scribed by Christina Case APRN, ROOFING TILE SORTER-C I agree with the Chief Complaint, ROS, and Past Histories independently gathered by the clinical learning support assistant and the remaining scribed note accurately describes my personal service to the patient. Colin Bella MD documented in this encounter [facility] 11-12-2022 Note [facility] R NON-SURGICAL WEIGHT LOSS MANAGEMENT PROGRAM PROGRESS NOTE INITIAL EVALUATION Previously seen as a surgical patient in 05/2021 Patient: Collin Aparicio Service Date: 11/12/22 Date of : 1990 Patient History/Assessment Summary: The patient is a pleasant 32 y.o. year old female, who stands Height: 5' 2 (157.5 cm) tall with a weight of Weight: 171 lb (77.6 kg) pounds, resulting in a BMI of Body mass index is 31.28 kg/m?. kg/m2. She has been overweight for 10+ years, and has tried and failed multiple previous diet attempts and is now seeking non-surgical treatment of her obese. This patient is unaccompanied for the evaluation today. PLAN ROS: I have reviewed New Patient Assessment Form with the Patient, which is located in the Elevator Serviceman Tab. History: Past Medical History: Diagnosis Date Asthma Back pain COVID-19 vaccine series completed 2nd shot January- Daytime sleepiness Difficulty sleeping Fatigue History of UTI Irregular menses Joint pain, hip Joint pain, knee Memory difficulty Morbid obesity due to excess calories (HCC) 05/26/2021 Muscle weakness JAZZMINE (obstructive sleep apnea) Shortness of breath at rest Snoring SOBOE (shortness of breath on exertion) Past Surgical History: Procedure Laterality Date APPENDECTOMY 2016 [place] - laparoscopic BREAST SURGERY Bilateral [place] SECTION (HISTORICAL) 2019 [place] - pfannenstiel SECTION (HISTORICAL) 2011 [place] - pfannenstiel HIP SURGERY Right Labral tear, shaved hip bone during SX- [facility] KNEE SURGERY Bilateral [place]- Plica removal TONSILLECTOMY AND ADENOIDECTOMY (HISTORICAL) [place] Family History Problem Relation Name Age of Onset Obesity Mother Hyperlipidemia Maternal Grandmother Heart disease Father Hypertension Paternal Grandfather Diabetes Paternal Grandmother Heart disease Paternal Grandfather Hypertension Father Obesity Paternal Grandfather Cancer Paternal Grandfather Arthritis Maternal Grandmother Diabetes Paternal Grandfather Cancer Maternal Grandfather Prostate and lung Stroke Father Hypertension Paternal Grandmother Diabetes Maternal Grandmother Social History Tobacco Use Smoking status: Former Types: Cigarettes Quit date: 05/23/2011 Years since quittin.4 Smokeless tobacco: Never Substance Use Topics Alcohol use: Yes Alcohol/week: 2.0 standard drinks of alcohol This patient's excess weight is causing the following co-morbid conditions at this time:JAZZMINE with or without CPAP IR Physical Examination: BP 109/72 Pulse 81 Ht 5' 2 (1.575 m) Wt 171 lb (77.6 kg) BMI 31.28 kg/m? Weight Metrics: [place] Body Weight: Excess Body Weight: [place] BMI: 24 General: This patient is alert and oriented X3 General: This patient is obese, and is in no apparent distress. Psychological: Patient is awake, alert and oriented to person, place and time Patient's mood is Euthymic Current Diet This patient?s current diet is: 80% meal plan Her diet contains adequate amounts of protein, adequate amounts of healthy fats, adequate amounts of green, leafy vegetables, and adequate amounts of fruits. Her comfort foods include: none Current Activity 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 representative personal service Current Eating Behaviors structured Health and Behavior Inventory Patient scores as (Select one): [] Unguided Grazer [] Nighttime Nibbler [] Convenient Consumer [] Fruitless Igor [] Mindless Muncher [] Hearty Portioner [] Deprived Sneaker [] Hate to Move Struggler [] Self-Conscious Hider [] Inexperienced Brandywine [] Ppj-nf-Gmpwtjx Doer [] Set-Routine Repeater [] Dymzm-cur-Axsvk Sufferer [] Dn-uqzt-to-Exercise Protester [] Emotional Steamboat Pilot [] Fey-Fmgw-Cezpri Sufferer [] Persistent Procrastinator [] Can?t-Say-No Pleaser [] Fast Pacer [] Pessimistic Thinker [] Unrealistic Achiever This patients demonstrates the following behaviors as they relate to her eating: structured, balanced She eats approximately 4-5 times per day. Her last meal/snack was at 6 pm. Plan: Obesity stable Continue current management, start weight loss program Doing great lost 25 lb since 05/2021 Wants to lose another 20 lb Requested ozempic Prescription is provided for 0.25 mg Explain ozempic is for DM and will not be covered by her health insurance Explain will not provide prescription of ozempic for the compound pharmacy Due to safety concern. Discuss weight loss medications including the mechanism of action, side effects, efficacy and health insurance coverage limitations. Provided additional information regarding the corresponding websites. The patient to read and learn more about the weight loss medications in order to make a decision next visit. JAZZMINE Continue current management, continue weight loss program stable IR Per her PCP Continue current management, katie (more content not included)... [facility] 11-12-2022 History of Presen t illness Narrative [facility] NON-SURGICAL WEIGHT LOSS MANAGEMENT PROGRAM ROOMING NOTE: FOLLOW UP VISIT Patient: Collin Aparicio Date of : 1990 Service Date: 11/12/2022 Patient History/Assessment Summary: The patient is a pleasant 32 y.o. year old female, who stands 5 ft 2 intall with a weight of 171 pounds, resulting in a BMI of 31.28 kg/m2. She is here for follow-up for non-surgical treatment of Obesity Patient has the following question(s): none Pre Program Weight Metrics ([facility]ARE [facility]) Date of Initial Consultation:@FLOWLAST([id number])@ Initial Weight: @FLOWLAST([id number])@ Initial BMI: @FLOWLAST([id number])@ [place] Body Weight: @FLOWLAST([id number])@ Excess Body Weight: @FLOWLAST([id number])@ Body Fat Percentage: No flowsheet data found. Subsequent Body Fat Percentage: No flowsheet data found. Pre Program Weight Metrics (Epic) (Surgical Wt Loss Management- baseline) This Visit Non-Surgical Subsequent Eval Date: 11/12/22 Height: 5' 2 (157.5 cm) Weight: 171 lb (77.6 kg) BMI: 31.27 Weight Change: 171 lbs Total Weight Change: <No Previous Non-Surg Weight on File> lbs % EBWL: <UNK>% Subsequent Body Fat %: 37.52 Body Fat % Change: 37.52 Follow Up Weight Metrics Last Three Weights Including Today's Weight: Wt Readings from Last 3 Encounters: 06/19/21 196 lb 12.8 oz (89.3 kg) 05/28/21 190 lb 3.2 oz (86.3 kg) Diabetes Do you currently have diabetes? No Are you currently prescribed insulin? No Are you currently prescribed an oral medication for diabetes? No GERD (Gastroesophageal Reflux Disease) Do you currently have GERD? No Do you get heartburn type symptoms more than twice per week? No Are you currently on a medication for GERD? (not TUMS) (examples: Prilosec/omeprazole, Zantac/ranitidine, etc.) No Hyperlipidemia (high cholesterol) Do you currently have a diagnosis of high cholesterol? No Are you currently prescribed a medication for high cholesterol? (examples Lipitor/Atorvastatin, Pravastatin, Zetia, Tricor, etc.) No Have you been diagnosed with high cholesterol but chosen not to take medication? No Hypertension (high blood pressure) Do you currently have a diagnosis of Hypertension? No Are you currently on a medication for Hypertension? No Have you been diagnosed with Hypertension but have chosen not to take the medication? No Sleep Apnea Do you currently have Sleep Apnea? No Are you on a device (CPAP, BiPAP, etc) for Sleep Apnea? No Have you been diagnosed with Sleep Apnea but cannot tolerate or have chosen not to treat? No Comorbids summary (flow sheet comorbids) Falls Risk Assessment Patient does not take medications which affect BP or mental status Patient does not have newly prescribed or changed dosage of medications within past 30 days which affect BP or mental status Patient has not fallen in the past 2 months Patient does not demonstrate unsteady gait Patient uses the following ambulatory assistive devices: None Patient states the presence of the following traits which increases risk of fall: None Patient is not on home O2 Completed by: Jessie Butler [facility] NON-SURGICAL WEIGHT LOSS MANAGEMENT PROGRAM PROGRESS NOTE INITIAL EVALUATION Previously seen as a surgical patient in 05/2021 Patient: Collin Aparicio Service Date: 11/12/22 Date of : 1990 Patient History/Assessment Summary: The patient is a pleasant 32 y.o. year old female, who stands Height: 5' 2 (157.5 cm) tall with a weight of Weight: 171 lb (77.6 kg) pounds, resulting in a BMI of Body mass index is 31.28 kg/m . kg/m2. She has been overweight for 10+ years, and has tried and failed multiple previous diet attempts and is now seeking non-surgical treatment of her obese. This patient is unaccompanied for the evaluation today. PLAN ROS: I have reviewed New Patient Assessment Form with the Patient, which is located in the Elevator Serviceman Tab. History: Past Medical History: Diagnosis Date Asthma Back pain COVID-19 vaccine series completed 2nd shot January- Daytime sleepiness Difficulty sleeping Fatigue History of UTI Irregular menses Joint pain, hip Joint pain, knee Memory difficulty Morbid obesity due to excess calories (HCC) 05/26/2021 Muscle weakness JAZZMINE (obstructive sleep apnea) Shortness of breath at rest Snoring SOBOE (shortness of breath on exertion) Past Surgical History: Procedure Laterality Date APPENDECTOMY 2016 [facility] - laparoscopic BREAST SURGERY Bilateral [facility] SECTION (HISTORICAL) 2019 [place] - pfannenstiel SECTION (HISTORICAL) 2011 [place] - pfannenstiel HIP SURGERY Right Labral tear, shaved hip bone during SX[facility] KNEE SURGERY Bilateral [place]- Plica removal TONSILLECTOMY AND ADENOIDECTOMY (HISTORICAL) [place] Family History Problem Relation Name Age of Onset Obesity Mother Hyperlipidemia Maternal Grandmother Heart disease Father Hypertension Paternal Grandfather Diabetes Paternal Grandmother Heart disease Paternal Grandfather Hypertension Father Obesity Paternal Grandfather Cancer Paternal Grandfather Arthritis Maternal Grandmother Diabetes Paternal Grandfather Cancer Maternal Grandfather Prostate and lung Stroke Father Hypertension Paternal Grandmother Diabetes Maternal Grandmother Social History Tobacco Use Smoking status: Former Types: Cigarettes Quit date: 05/23/2011 Years since quittin.4 Smokeless tobacco: Never Substance Use Topics Alcohol use: Yes Alcohol/week: 2.0 standard drinks of alcohol This patient's excess weight is causing the following co-morbid conditions at this time:JAZZMINE with or without CPAP IR Physical Examination: BP 109/72 Pulse 81 Ht 5' 2 (1.575 m) Wt 171 lb (77.6 kg) BMI 31.28 kg/m Weight Metrics: [place] Body Weight: Excess Body Weight: [place] BMI: 24 General: This patient is alert and oriented X3 General: This patient is obese, and is in no apparent distress. Psychological: Patient is awake, alert and oriented to person, place and time Patient's mood is Euthymic Current Diet This patient s current diet is: 80% meal plan Her diet contains adequate amounts of protein, adequate amounts of healthy fats, adequate amounts of green, leafy vegetables, and adequate amounts of fruits. Her comfort foods include: none Current Activity 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 representative personal service Current Eating Behaviors structured Health and Behavior Inventory Patient scores as (Select one): [] Unguided Grazer [] Nighttime Nibbler [] Convenient Consumer [] Fruitless Igor [] Mindless Muncher [] Hearty Portioner [] Deprived Sneaker [] Hate to Move Struggler [] Self-Conscious Hider [] Inexperienced [place]andywine [] Unb-wq-Bzjzwim Doer [] Set-Routine Repeater [] Wywft-ucg-Edrbz Sufferer [] Bk-guoo-jl-Exercise Protester [] Emotional Steamboat Pilot [] Grz-Kzgz-Vgehss Sufferer [] Persistent Procrastinator [] Can t-Say-No Pleaser [] Fast Pacer [] Pessimistic Thinker [] Unrealistic Achiever This patients demonstrates the following behaviors as they relate to her eating: structured, balanced She eats approximately 4-5 times per day. Her last meal/snack was at 6 pm. Plan: Obesity stable Continue current management, start weight loss program Doing great lost 25 lb since 05/2021 Wants to lose another 20 lb Requested ozempic Prescription is provided for 0.25 mg Explain ozempic is for DM and will not be covered by her health insurance Explain will not provide prescription of ozempic for the compound pharmacy Due to safety concern. Discuss weight loss medications including the mechanism of action, side effects, efficacy and health insurance coverage limitations. Provided additional information regarding the corresponding websites. The patient to read and learn more about the weight loss medications in order to make a decision next visit. JAZZMINE Continue current management, continue weight loss program stable IR Per her PCP Continue current management, continue weight loss program stable Advised patient that they are cleared medically to proceed with enrollment in our non-surgical weight loss management program Goals: 3 month weight goal: 20 lbs 6 month weight goal: 0 lbs 12 month weight goal: 0 lbs Tests Labwork:none - to be drawn 2 weeks prior to first physician follow up visit Additional Labwork: None - to be drawn 2 weeks prior to first physician follow up visit Consultations: Cardiology Risk Stratification: None Pulmonary Evaluation: None Other Consultations:None Obtain prior medical records from: [] Refer for Surgical Weight Loss Evaluation Mail labwork order with schedule Current Meds Patient's Medications New Prescriptions SEMAGLUTIDE (OZEMPIC, 0.25 OR 0.5 MG/DOSE,) 2 MG/1.5ML SOLUTION PEN-INJECTOR Inject 0.25 mg under the skin 1 (one) time per week. Previous Medications ALBUTEROL 108 (90 BASE) MCG/ACT INHALER inhale 1 puff by mouth every 4 to 6 hours if needed for 5 days ARIPIPRAZOLE (ABILIFY) 5 MG TABLET Take 5 mg by mouth daily. ASHWAGANDHA 500 MG CAPSULE Take by mouth. B COMPLEX VITAMINS CAPSULE Take 1 capsule by mouth daily. BIOTIN 92701 MCG TABLET DISPERSIBLE Take by mouth. CHOLECALCIFEROL (VITAMIN D-3) 50 MCG (2000 UT) TABLET Take by mouth daily. DESVENLAFAXINE (PRISTIQ) 50 MG 24 HR TABLET Take 50 mg by mouth daily. MULTIPLE VITAMINS-MINERALS (HAIR/SKIN/NAILS/BIOTIN PO) Take 100 mg by mouth. 2 tablets MULTIPLE VITAMINS-MINERALS (MULTIVITAMIN GUMMIES ADULT PO) Take by mouth. Modified Medications No medications on file Discontinued Medications No medications on file Patient is not taking anti-obesity medication. I spent a total of 30 minutes on the day of the visit in counseling, discussing lifestyle changes that are pertinent to a successful weight loss journey;and reviewing the chart including available communication from the the patient and the referring provider. 1.Education on meal composition,meal structure, meal preps, shopping list 2. Discussion on elements of behavioral strategies such self-monitoring, controlling and modifying the stimuli that activate eating;slowing down the eating process;goal-setting on the process,behavioral octavio and reinforcement,cognitive restructuring, problem-solving,assertiveness training. 3. Physical activity - build fitness to aerobic physical activity 150-300 min/wk and strength training 2-3 times per wk. 4. JAZZMINE Is associated with obesity and weight loss is discussed as a treatment option for JAZZMINE 5. Weight loss medications and their role in weight loss journey discussed 6.will use Quick2LAUNCH for communication and let me know if she is using ozempic The patient was seen and a full chart review was performed.Clinical documentation is updated and completed. documented in this encounter [facility] 08-17-2022 Note HNO ID: [id number] Author: Collin Tolentino APRN.FLASK PUSHER Service: ? Author Type: Nurse Practitioner Type: Progress Notes Filed: 08/17/2022 6:27 PM Note Text: This note was created using NoteWriter. Subjective Collin Aparicio is a 32 year old female. 32 year old female with PMH ashtma, ADHD, depression and anxiety presents for complaints of illness. Acute onset 4 days ago Started with bilateral ear pain Popping Left greater than right +nasal drainage +post nasal +sore throat Denies cough Denies emesis. Denies diarrhea. +tobacco usage- quit 2011 Denies using homeopathic or OTC medications CASE PLANNER. The history is provided by the patient. No language instructor was used. Ear Pain This is a new problem. The current episode started in the past 7 days. The problem occurs constantly. The problem has been gradually worsening. Associated symptoms include chills, congestion, coughing, fatigue, headaches and a sore throat. Pertinent negatives include no abdominal pain, anorexia, arthralgias, change in bowel habit, chest pain, diaphoresis, fever, myalgias, nausea, neck pain, numbness, rash, swollen glands, urinary symptoms, vertigo, visual change, vomiting or weakness. Nothing aggravates the symptoms. She has tried nothing for the symptoms. The treatment provided no relief. PAST MEDICAL HISTORY Diagnosis Date Anxiety Asthma Attention deficit disorder with hyperactivity(314.01) Bacterial vaginosis Depression IBS (irritable bowel syndrome) Non morbid obesity due to excess calories 05/17/2015 PCOS (polycystic ovarian syndrome) Dr. Garcia diagnosed Scoliosis H/O scolisos 13 degree from T11-L4, had xray 08/28/09. Denies injury. Tobacco use complicating 09/17/2011 Quit 10/10 1-2/day- encouraged cessation PAST SURGICAL HISTORY Procedure Laterality Date DELIVERY ONLY 04/19/12 , low transverse COLONOSCOPY FLX DX W/COLLJ SPEC WHEN PFRMD 01/07/2016 Colonoscopy ESOPHAGOGASTRODUODENOSCOPY TRANSORAL DIAGNOSTIC 10/30/14 EGD PAST SURGICAL HISTORY OF 08/26 pelvic exam under anesth./ PAST SURGICAL HISTORY OF 2013 dental extractions REDUCTION OF LARGE BREAST 03/28 TONSILLECTOMY HX -2009 tonsils and adnoids removed ALLERGIES Mite Extract, Chantix [Varenicline], and Naproxen MEDICATIONS desvenlafaxine ER (PRISTIQ) 25 mg 24 hr tablet Take 25 mg by mouth once daily. phentermine HCl (ADIPEX-P ORAL) Take by mouth. amoxicillin-clavulanic acid (AUGMENTIN) 875-125 mg per tablet Take 1 tablet by mouth twice daily for 7 days. Tefohoycoirya-Zj-Dxcf-Minerals (MULTIPLE VITAMIN, WOMENS) tab Take 1 tablet by mouth once daily. (Patient not taking: Reported on 01/11/2022) glycopyrrolate (ROBINUL) 1 mg tablet Take 1 tablet by mouth three times daily. Benzoyl Peroxide 5 % external wash Wash face and chest once daily as tolerated. Can bleach towels Adapalene 0.3 % gel Apply a pea size amount to affected area every other night for 2 weeks then increase to daily as tolerated vilazodone (VIIBRYD) 20 mg Take 1 tablet by mouth daily with breakfast. As directed (Patient not taking: Reported on 06/02/2017 ) ibuprofen (MOTRIN) 800 mg tablet Take 1 tablet by mouth every 8 hours as needed. (Patient not taking: Reported on 01/11/2022) albuterol HFA (PROVENTIL HFA, VENTOLIN HFA) 90 mcg/actuation inhaler Inhale 2 Puffs as instructed every 6 hours as needed for Wheezing/Shortness of Breath. (Patient not taking: Reported on 01/11/2022) FAMILY HISTORY Adopted: Yes Problem Relation Age of Onset None Mother ADOPTED None Father Diabetes Maternal Grandmother Lipids Maternal Grandmother Cancer Maternal Grandfather lung COPD Maternal Grandfather Coronary Artery Disease Maternal Grandfather Heart Maternal Grandfather Arthritis Maternal Grandfather None Father unknown other (inflammatory bowel disease [Other]) Maternal Aunt crohns other (inflammatory bowel disease [Other]) Other cousin w/ crohns other (inflammatory bowel disease [Other]) Other 1/2 sister with crohns Social History Tobacco Use Smoking status: Former Packs/day: 0.50 Years: 1.50 Pack years: 0.75 Types: Cigarettes Smokeless tobacco: Never Tobacco comments: quit 2011 Substance Use Topics Alcohol use: Yes Comment: 1 drink every 3-6 months. Drug use: No Review of Systems Constitutional: Positive for chills and fatigue. Negative for diaphoresis and fever. HENT: Positive for congestion, ear pain, postnasal drip, sinus pressure, sinus pain and sore throat. Negative for ear discharge. Eyes: Negative for pain, discharge, redness and itching. Respiratory: Positive for cough. Negative for apnea, choking and chest tightness. Cardiovascular: Negative for chest pain, palpitations and leg swelling. Gastrointestinal: Negative for abdominal pain, anorexia, change in bowel habit, diarrhea, nausea and vomiting. Musculoskeletal: Negative for arthralgias, back (more content not included)... [facility] 08-17-2022 History of Presen t illness Narrative This note was created using Arc Solutionsriter. Subjective Collin Aparicio is a 32 year old female. 32 year old female with PMH ashtma, ADHD, depression and anxiety presents for complaints of illness. Acute onset 4 days ago Started with bilateral ear pain Popping Left greater than right +nasal drainage +post nasal +sore throat Denies cough Denies emesis. Denies diarrhea. +tobacco usage- quit 2011 Denies using homeopathic or OTC medications CASE PLANNER. The history is provided by the patient. No language instructor was used. Ear Pain This is a new problem. The current episode started in the past 7 days. The problem occurs constantly. The problem has been gradually worsening. Associated symptoms include chills, congestion, coughing, fatigue, headaches and a sore throat. Pertinent negatives include no abdominal pain, anorexia, arthralgias, change in bowel habit, chest pain, diaphoresis, fever, myalgias, nausea, neck pain, numbness, rash, swollen glands, urinary symptoms, vertigo, visual change, vomiting or weakness. Nothing aggravates the symptoms. She has tried nothing for the symptoms. The treatment provided no relief. PAST MEDICAL HISTORY Diagnosis Date Anxiety Asthma Attention deficit disorder with hyperactivity(314.01) Bacterial vaginosis Depression IBS (irritable bowel syndrome) Non morbid obesity due to excess calories 05/17/2015 PCOS (polycystic ovarian syndrome) Dr. Garcia diagnosed Scoliosis H/O scolisos 13 degree from T11-L4, had xray 08/28/09. Denies injury. Tobacco use complicating 09/17/2011 Quit 10/10 1-2/day- encouraged cessation PAST SURGICAL HISTORY Procedure Laterality Date DELIVERY ONLY 04/19/12 , low transverse COLONOSCOPY FLX DX W/COLLJ SPEC WHEN PFRMD 01/07/2016 Colonoscopy ESOPHAGOGASTRODUODENOSCOPY TRANSORAL DIAGNOSTIC 10/30/14 EGD PAST SURGICAL HISTORY OF 08/26 pelvic exam under anesth./ PAST SURGICAL HISTORY OF 2013 dental extractions REDUCTION OF LARGE BREAST 03/28 TONSILLECTOMY HX -2009 tonsils and adnoids removed ALLERGIES Mite Extract, Chantix [Varenicline], and Naproxen MEDICATIONS desvenlafaxine ER (PRISTIQ) 25 mg 24 hr tablet Take 25 mg by mouth once daily. phentermine HCl (ADIPEX-P ORAL) Take by mouth. amoxicillin-clavulanic acid (AUGMENTIN) 875-125 mg per tablet Take 1 tablet by mouth twice daily for 7 days. Mgxkjdzgxanjh-Gv-Ibxv-Minerals (MULTIPLE VITAMIN, WOMENS) tab Take 1 tablet by mouth once daily. (Patient not taking: Reported on 01/11/2022) glycopyrrolate (ROBINUL) 1 mg tablet Take 1 tablet by mouth three times daily. Benzoyl Peroxide 5 % external wash Wash face and chest once daily as tolerated. Can bleach towels Adapalene 0.3 % gel Apply a pea size amount to affected area every other night for 2 weeks then increase to daily as tolerated vilazodone (VIIBRYD) 20 mg Take 1 tablet by mouth daily with breakfast. As directed (Patient not taking: Reported on 06/02/2017 ) ibuprofen (MOTRIN) 800 mg tablet Take 1 tablet by mouth every 8 hours as needed. (Patient not taking: Reported on 01/11/2022) albuterol HFA (PROVENTIL HFA, VENTOLIN HFA) 90 mcg/actuation inhaler Inhale 2 Puffs as instructed every 6 hours as needed for Wheezing/Shortness of Breath. (Patient not taking: Reported on 01/11/2022) FAMILY HISTORY Adopted: Yes Problem Relation Age of Onset None Mother ADOPTED None Father Diabetes Maternal Grandmother Lipids Maternal Grandmother Cancer Maternal Grandfather lung COPD Maternal Grandfather Coronary Artery Disease Maternal Grandfather Heart Maternal Grandfather Arthritis Maternal Grandfather None Father unknown other (inflammatory bowel disease [Other]) Maternal Aunt crohns other (inflammatory bowel disease [Other]) Other cousin w/ crohns other (inflammatory bowel disease [Other]) Other 1/2 sister with crohns Social History Tobacco Use Smoking status: Former Packs/day: 0.50 Years: 1.50 Pack years: 0.75 Types: Cigarettes Smokeless tobacco: Never Tobacco comments: quit 2011 Substance Use Topics Alcohol use: Yes Comment: 1 drink every 3-6 months. Drug use: No Review of Systems Constitutional: Positive for chills and fatigue. Negative for diaphoresis and fever. HENT: Positive for congestion, ear pain, postnasal drip, sinus pressure, sinus pain and sore throat. Negative for ear discharge. Eyes: Negative for pain, discharge, redness and itching. Respiratory: Positive for cough. Negative for apnea, choking and chest tightness. Cardiovascular: Negative for chest pain, palpitations and leg swelling. Gastrointestinal: Negative for abdominal pain, anorexia, change in bowel habit, diarrhea, nausea and vomiting. Musculoskeletal: Negative for arthralgias, back pain, myalgias and neck pain. Skin: Negative for color change, pallor and rash. Allergic/Immunologic: Negative for environmental allergies, food allergies and immunocompromised state. Neurological: Positive for headaches. Negative for dizziness, vertigo, facial asymmetry, weakness and numbness. Hematological: Negative for adenopathy. Does not bruise/bleed easily. Psychiatric/Behavioral: Negative for agitation and behavioral problems. Objective BP 136/90 Pulse 102 Temp 37.4 C (99.3 F) (Tympanic) Resp 16 Wt 76.6 kg (168 lb 12.8 oz) LMP 08/12/2022 (Exact Date) SpO2 99% BMI 31.89 kg/m Physical Exam Vitals and nursing note reviewed. Constitutional: General: She is not in acute distress. Appearance: Normal appearance. She is normal weight. She is not ill-appearing, toxic-appearing or diaphoretic. HENT: Head: Normocephalic and atraumatic. Comments: +frontal and maxillary sinus TTP Right Ear: Ear canal and external ear normal. Left Ear: Ear canal and external ear normal. Ears: Comments: Left TM erythematous and bulging. Right mild erythema Nose: Nose normal. No congestion or rhinorrhea. Mouth/Throat: Mouth: Mucous membranes are moist. Pharynx: No oropharyngeal exudate or posterior oropharyngeal erythema. Comments: +post nasal drainage noted Eyes: General: Right eye: No discharge. Left eye: No discharge. Extraocular Movements: Extraocular movements intact. Conjunctiva/sclera: Conjunctivae normal. Pupils: Pupils are equal, round, and reactive to light. Cardiovascular: Rate and Rhythm: Normal rate and regular rhythm. Pulses: Normal pulses. Heart sounds: Normal heart sounds. No murmur heard. No friction rub. Pulmonary: Effort: Pulmonary effort is normal. No respiratory distress. Breath sounds: Normal breath sounds. No stridor. No wheezing, rhonchi or rales. Chest: Chest wall: No tenderness. Abdominal: General: Abdomen is flat. There is no distension. Palpations: Abdomen is soft. There is no mass. Tenderness: There is no abdominal tenderness. There is no right CVA tenderness, left CVA tenderness, guarding or rebound. Hernia: No hernia is present. Musculoskeletal: General: No swelling, tenderness, deformity or signs of injury. Normal range of motion. Cervical back: Normal range of motion and neck supple. No rigidity. Right lower leg: No edema. Left lower leg: No edema. Lymphadenopathy: Cervical: No cervical adenopathy. Skin: General: Skin is warm and dry. Capillary Refill: Capillary refill takes less than 2 seconds. Coloration: Skin is not jaundiced or pale. Findings: No bruising, erythema, lesion or rash. Neurological: General: No focal deficit present. Mental Status: She is alert and oriented to person, place, and time. Cranial Nerves: No cranial nerve deficit. Sensory: No sensory deficit. Motor: No weakness. Coordination: Coordination normal. Gait: Gait normal. Psychiatric: Mood and Affect: Mood normal. Behavior: Behavior normal. Thought Content: Thought content normal. Judgment: Judgment normal. Assessment and Plan ASSESSMENT/PLAN: 1. Acute otitis media, bilateral - ICD9: 382.9, ICD10: H66.93 (primary diagnosis) - Will begin treatment with as per antibiotic as written, see orders - The patient should also be given OTC cough and cold meds as needed, warm salt water gargles, throat lozenges and/or OTC throat spray as needed, and nasal saline gtts and suction prn for the first 5-7 days of treatment. - Supportive care with plenty of fluids, rest, and analgesia prn. - Follow up in 3-5 days if symptoms persist or worsen. 2. Rhinosinusitis - ICD9: 473.9, ICD10: J31.0, J32.9 - The patient should also be given OTC cough and cold meds as needed, warm salt water gargles, throat lozenges and/or OTC throat spray as needed, and nasal saline gtts and suction prn for the first 5-7 days of treatment. - Supportive care with plenty of fluids, rest, and analgesia prn. - Follow up in 3-5 days if symptoms persist or worsen. Collin Tolentino APRN.EDEN documented in this encounter [facility] 01-11-2022 Instructions Collin Tolentino APRN.CNP - 01/11/2022 6:32 PM EDT OTITIS MEDIA GENERAL INFORMATION: Otitis media is an infection of the middle ear. The middle ear sits behind the eardrum. This infection may be caused by a virus or bacteria and often follows a cold. Children often have repeat ear infections. Otitis media is not contagious. INSTRUCTIONS: 1. An antibiotic has been prescribed. It should be taken exactly as prescribed. Do not stop the medicine even if the symptoms go away. 2. Mgke-czj-ubcvobu pain medication may be taken or other pain medication as prescribed by the doctor. 3. Nothing should be placed in the ear unless instructed by your doctor. 4. The patient may return to school/daycare or work when the temperature is normal (98.6 F or 37 C). 5. The patient should not swim while the ear is infected. CONTACT YOUR DOCTOR IF YOU OR YOUR CHILD: 1. Does not feel better within 36 hours. 2. Develops a temperature over 102E F (39E C). 3. Starts vomiting or has diarrhea. 4. Develops drainage from the affected ear. 5. Has any new problem that may be related to the medicine prescribed. RETURN TO THE ED IF: 1. You or your child has a severe headache or pain around the ear. 2. You or your child notice swelling around the ear. 3. You or your child has a seizure (convulsion), twitching of the facial muscles, or passes out. 4. You or your child is dizzy, has a stiff neck, or cannot walk or talk normally. 5. Your child becomes more irritable or listless (not interested in his or her surroundings, does not get soothed by you holding him or her). documented in this encounter [facility] 01-11-2022 History of Presen t illness Narrative This note was created using KDWter. Subjective Collin Shaila Kavin is a 31 year old female. 31 year old female with PMH ashtma, ADHD, and anxiety presents with complaints of right ear pain. Acute onset today Right ear Sharp 9/10 Constant. States pain is radiating down into her jaw. Denies drainage. Denies reduced hearing. Denies accompanying URI sx Denies cough. Denies fever or chills. Denies using homeopathic or OTC medications CASE PLANNER. The history is provided by the patient. No language instructor was used. Ear Pain This is a new problem. The current episode started today. The problem occurs constantly. The problem has been unchanged. Pertinent negatives include no abdominal pain, anorexia, arthralgias, change in bowel habit, chest pain, chills, congestion, coughing, diaphoresis, fatigue, fever, headaches, joint swelling, myalgias, nausea, neck pain, numbness, rash, sore throat, swollen glands, urinary symptoms, vertigo, visual change, vomiting or weakness. Nothing aggravates the symptoms. She has tried nothing for the symptoms. The treatment provided no relief. PAST MEDICAL HISTORY Diagnosis Date Anxiety Asthma Attention deficit disorder with hyperactivity(314.01) Bacterial vaginosis Depression IBS (irritable bowel syndrome) Non morbid obesity due to excess calories 05/17/2015 PCOS (polycystic ovarian syndrome) Dr. Garcia diagnosed Scoliosis H/O scolisos 13 degree from T11-L4, had xray 08/28/09. Denies injury. Tobacco use complicating 09/17/2011 Quit 10/10 1-2/day- encouraged cessation PAST SURGICAL HISTORY Procedure Laterality Date DELIVERY ONLY 04/19/12 , low transverse COLONOSCOPY FLX DX W/COLLJ SPEC WHEN PFRMD 01/07/2016 Colonoscopy ESOPHAGOGASTRODUODENOSCOPY TRANSORAL DIAGNOSTIC 10/30/14 EGD PAST SURGICAL HISTORY OF 08/26 pelvic exam under anesth./ PAST SURGICAL HISTORY OF 2013 dental extractions REDUCTION OF LARGE BREAST 03/28 TONSILLECTOMY HX -2009 tonsils and adnoids removed ALLERGIES Chantix [Varenicline] and Naproxen MEDICATIONS amoxicillin (AMOXIL) 875 mg tablet Take 1 tablet by mouth twice daily for 7 days. fluconazole (DIFLUCAN) 150 mg tablet Take 1 tablet by mouth once daily for 1 day. Xuuwnxwqdqael-Vh-Cbcz-Minerals (MULTIPLE VITAMIN, WOMENS) tab Take 1 tablet by mouth once daily. (Patient not taking: Reported on 01/11/2022) glycopyrrolate (ROBINUL) 1 mg tablet Take 1 tablet by mouth three times daily. Benzoyl Peroxide 5 % external wash Wash face and chest once daily as tolerated. Can bleach towels Adapalene 0.3 % gel Apply a pea size amount to affected area every other night for 2 weeks then increase to daily as tolerated vilazodone (VIIBRYD) 20 mg Take 1 tablet by mouth daily with breakfast. As directed (Patient not taking: Reported on 06/02/2017 ) ibuprofen (MOTRIN) 800 mg tablet Take 1 tablet by mouth every 8 hours as needed. (Patient not taking: Reported on 01/11/2022) albuterol HFA (PROVENTIL HFA, VENTOLIN HFA) 90 mcg/actuation inhaler Inhale 2 Puffs as instructed every 6 hours as needed for Wheezing/Shortness of Breath. (Patient not taking: Reported on 01/11/2022) FAMILY HISTORY Adopted: Yes Problem Relation Age of Onset None Mother ADOPTED None Father Diabetes Maternal Grandmother Lipids Maternal Grandmother Cancer Maternal Grandfather lung COPD Maternal Grandfather Coronary Artery Disease Maternal Grandfather Heart Maternal Grandfather Arthritis Maternal Grandfather None Father unknown other (inflammatory bowel disease [Other]) Maternal Aunt crohns other (inflammatory bowel disease [Other]) Other cousin w/ crohns other (inflammatory bowel disease [Other]) Other 1/2 sister with crohns Social History Tobacco Use Smoking status: Former Packs/day: 0.50 Years: 1.50 Pack years: 0.75 Types: Cigarettes Smokeless tobacco: Never Tobacco comments: quit 2011 Substance Use Topics Alcohol use: Yes Comment: 1 drink every 3-6 months. Drug use: No Review of Systems Constitutional: Negative for chills, diaphoresis, fatigue and fever. HENT: Positive for ear pain. Negative for congestion, ear discharge, rhinorrhea, sinus pressure, sinus pain, sneezing and sore throat. Eyes: Negative for photophobia, pain, discharge, redness, itching and visual disturbance. Respiratory: Negative for cough and shortness of breath. Cardiovascular: Negative for chest pain, palpitations and leg swelling. Gastrointestinal: Negative for abdominal pain, anorexia, change in bowel habit, diarrhea, nausea and vomiting. Musculoskeletal: Negative for arthralgias, joint swelling, myalgias and neck pain. Skin: Negative for color change, pallor and rash. Allergic/Immunologic: Negative for environmental allergies, food allergies and immunocompromised state. Neurological: Negative for dizziness, vertigo, facial asymmetry, weakness, numbness and headaches. Hematological: Negative for adenopathy. Does not bruise/bleed easily. Psychiatric/Behavioral: Negative for agitation and behavioral problems. Objective BP 142/84 Pulse 102 Temp 37.1 C (98.8 F) Resp 16 Wt 82.1 kg (181 lb) LMP 12/18/2016 (Exact Date) SpO2 99% BMI 34.20 kg/m Physical Exam Vitals and nursing note reviewed. Constitutional: General: She is not in acute distress. Appearance: Normal appearance. She is normal weight. She is not ill-appearing, toxic-appearing or diaphoretic. HENT: Head: Normocephalic and atraumatic. Right Ear: Ear canal and external ear normal. Left Ear: Ear canal and external ear normal. Ears: Comments: Right TM erythematous and bony structures not easily made out. Left TM normal Nose: Nose normal. No congestion or rhinorrhea. Mouth/Throat: Mouth: Mucous membranes are moist. Pharynx: No oropharyngeal exudate or posterior oropharyngeal erythema. Eyes: General: Right eye: No discharge. Left eye: No discharge. Extraocular Movements: Extraocular movements intact. Conjunctiva/sclera: Conjunctivae normal. Pupils: Pupils are equal, round, and reactive to light. Cardiovascular: Rate and Rhythm: Normal rate and regular rhythm. Pulses: Normal pulses. Heart sounds: Normal heart sounds. No murmur heard. No friction rub. Pulmonary: Effort: Pulmonary effort is normal. No respiratory distress. Breath sounds: Normal breath sounds. No stridor. No wheezing, rhonchi or rales. Chest: Chest wall: No tenderness. Abdominal: General: Abdomen is flat. There is no distension. Palpations: Abdomen is soft. There is no mass. Tenderness: There is no abdominal tenderness. There is no right CVA tenderness, left CVA tenderness, guarding or rebound. Hernia: No hernia is present. Musculoskeletal: General: No swelling, tenderness, deformity or signs of injury. Normal range of motion. Cervical back: Normal range of motion and neck supple. No rigidity. Right lower leg: No edema. Left lower leg: No edema. Lymphadenopathy: Cervical: No cervical adenopathy. Skin: General: Skin is warm and dry. Capillary Refill: Capillary refill takes less than 2 seconds. Coloration: Skin is not jaundiced or pale. Findings: No bruising, erythema, lesion or rash. Neurological: General: No focal deficit present. Mental Status: She is alert and oriented to person, place, and time. Cranial Nerves: No cranial nerve deficit. Sensory: No sensory deficit. Motor: No weakness. Coordination: Coordination normal. Gait: Gait normal. Psychiatric: Mood and Affect: Mood normal. Behavior: Behavior normal. Thought Content: Thought content normal. Judgment: Judgment normal. Assessment and Plan ASSESSMENT/PLAN: 1. Acute otitis media, right - ICD9: 382.9, ICD10: H66.91 - Will begin treatment with Amoxicillin for 7 days - The patient should also be given OTC decongestants prn and OTC cough and cold meds as needed for the first 5-7 days of treatment. - Supportive care with plenty of fluids, rest, and analgesia prn. - Follow up in 3-5 days if symptoms persist or worsen. Collin Tolentino APRN.FLASK PUSHER documented in this encounter [facility] documented as of this encounter (statuses as of 01/11/2022) [facility] History of Past illness Narrative* Problem Noted Date Resolved Date Abdominal pain 01/07/2016 01/07/2016 Irritable bowel syndrome without diarrhea 201501/07/2016 Anemia complicating 01/25/2012 Back pain complicating 09/27/2011 03/07/2013 Supervision of normal first 09/17/2011 03/07/2013 Overview: Girl on U- Tram Tobacco use complicating 09/17/2011 12/18/2016 Overview: Quit 10/10 1-2/day- encouraged cessation Strain of lumbar region 12/18/2010 12/19/19 11 Overview: Myofascial strain on 09/07/10 per ER note from [facility]. Personal history of tobacco use 03/03/2010 09/17/2011 Overview: Quit 02/2010 Tobacco use disorder 03/31/2009 03/03/2010 Tonsillitis 03/31/2009 04/27/2011 Overview: Plans to have T&A now that has quit smoking. Backache, unspecified 05/26/2006 09/17/2011 Overview: Dr. Harrison; History scoliosis Hypertrophy of breast 01/07/2005 04/27/2011 Abdominal pain, epigastric 01/07/200503/03 Abdominal pain, generalized 01/07/200502/20 documented as of this encounter (statuses as of 08/18/2022) [facility] History of Past illness Narrative* Problem Noted Date Diagnosed Date Resolved Date Abdominal pain 01/07/2016 01/07/2016 Irritable bowel syndrome without diarrhea 01/07/2016 01/07/2016 Anemia complicating 01/25/2012 03/07/2013 Back pain complicating 09/27/2011 03/07/2013 Supervision of normal first 09/17/2011 03/07/2013 Overview: Girl on U- Tram Tobacco use complicating 09/17/2011 12/18/2016 Overview: Quit 10/10 1-2/day- encouraged cessation Strain of lumbar region 12/18/201011/21 Overview: Myofascial strain on 09/07/10 per ER note from [facility]. Personal history of tobacco use 03/03/2010 09/17/2011 Overview: Quit 02/2010 Tobacco use disorder 03/31/2009 010 Tonsillitis 03/31/2009 04/27/2011 Overview: Plans to have T&A now that has quit smoking. Backache, unspecified 05/26/20062011 Overview: Dr. Harrison; History scoliosis Hypertrophy of breast 01/07/20052010 Abdominal pain, epigastric 01/07/2005 1 Abdominal pain, generalized 01/07/2005 03/03/2010 documented as of this encounter (statuses as of 12/01/2022) [facility] History of Past illness Narrative* Problem Noted Date Diagnosed Date Resolved Date Abdominal pain 01/07/2016 01/07/2016 Irritable bowel syndrome without diarrhea 01/07/2016 01/07/2016 Anemia complicating 01/25/2012 03/07/2013 Back pain complicating 09/27/2011 03/07/2013 Supervision of normal first 09/17/2011 03/07/2013 Overview: Girl on U- Tram Tobacco use complicating 09/17/2011 12/18/2016 Overview: Quit 10/10 1-2/day- encouraged cessation Strain of lumbar region 12/18/201011/21 Overview: Myofascial strain on 09/07/10 per ER note from [facility]. Personal history of tobacco use 03/03/2010 09/17/2011 Overview: Quit 02/2010 Tobacco use disorder 03/31/2009 010 Tonsillitis 03/31/2009 04/27/2011 Overview: Plans to have T&A now that has quit smoking. Backache, unspecified 05/26/20062011 Overview: Dr. Harrison; History scoliosis Hypertrophy of breast 01/07/20052010 Abdominal pain, epigastric 01/07/2005 1 Abdominal pain, generalized 01/07/2005 03/03/2010 documented as of this encounter (statuses as of 12/03/2022) [facility] History of Past illness Narrative* Problem Noted Date Diagnosed Date Resolved Date Abdominal pain 01/07/2016 01/07/2016 Irritable bowel syndrome without diarrhea 01/07/2016 01/07/2016 Anemia complicating 01/25/2012 03/07/2013 Back pain complicating 09/27/2011 03/07/2013 Supervision of normal first 09/17/2011 03/07/2013 Overview: Girl on U- Tram Tobacco use complicating 09/17/2011 12/18/2016 Overview: Quit 10/10 1-2/day- encouraged cessation Strain of lumbar region 12/18/201011/21 Overview: Myofascial strain on 09/07/10 per ER note from [facility]. Personal history of tobacco use 03/03/2010 09/17/2011 Overview: Quit 02/2010 Tobacco use disorder 03/31/2009 010 Tonsillitis 03/31/2009 04/27/2011 Overview: Plans to have T&A now that has quit smoking. Backache, unspecified 05/26/20062011 Overview: Dr. Harrison; History scoliosis Hypertrophy of breast 01/07/20052010 Abdominal pain, epigastric 01/07/2005 1 Abdominal pain, generalized 01/07/2005 03/03/2010 documented as of this encounter (statuses as of 01/12/2023) [facility] note* Diagnosis Acute otitis media, right- Primary Unspecified otitis media documented in this encounter [facility] note* Diagnosis Acute otitis media, bilateral- Primary Unspecified otitis media Rhinosinusitis Unspecified sinusitis (chronic) documented in this encounter [facility] note* Diagnosis BMI 31.0-31.9,adult- Primary Class 1 obesity with serious comorbidity and body mass index (BMI) of 31.0 to 31.9 in adult, unspecified obesity type JAZZMINE (obstructive sleep apnea) Obstructive sleep apnea (adult) (pediatric) Insulin resistance Other abnormal glucose [facility] Diagnosis Diastasis recti- Primary Diastasis of muscle Localized adiposity [facility] Diagnosis Insulin resistance- Primary Other abnormal glucose BMI 30.0-30.9,adult Class 1 obesity without serious comorbidity with body mass index (BMI) of 30.0 to 30.9 in adult, unspecified obesity type documented in this encounter [facility] note* Diagnosis Abdominal pain, unspecified abdominal location- Primary documented in this encounter [facility] note* Diagnosis Insulin resistance- Primary Other abnormal glucose BMI 30.0-30.9,adult Class 1 obesity without serious comorbidity with body mass index (BMI) of 30.0 to 30.9 in adult, unspecified obesity type documented in this encounter [facility] note* Diagnosis Insulin resistance Other abnormal glucose documented in this encounter [facility] note* Diagnosis Insulin resistance- Primary Other abnormal glucose BMI 28.0-28.9,adult Overweight (BMI 25.0-29.9) Overweight documented in this encounter [facility] note* Diagnosis Insulin resistance- Primary Other abnormal glucose BMI 28.0-28.9,adult Overweight (BMI 25.0-29.9) Overweight documented in this encounter [facility] note* Diagnosis Insulin resistance- Primary Other abnormal glucose BMI 27.0-27.9,adult Overweight (BMI 25.0-29.9) Overweight documented in this encounter [facility] Summary Purpose Family History No Family History Records FoundNo Family History Records FoundNo Family History Records FoundNo Family History Records FoundNo Family History Records Found Advance Directives No Advanced Directives Records FoundNo Advanced Directives Records FoundNo Advanced Directives Records FoundNo Advanced Directives Records FoundNo Advanced Directives Records Found Additional Source Comments INFORMATION SOURCE (unrecogn ized section and content) DATE CREATED AUTHOR AUTHOR'S ORGANIZ ATION 03/26/2021 [facility]elli [facility] DATE CREATED AUTHOR AUTHOR'S ORGANIZ ATION 08/20/2021 [facility] DATE CREATED AUTHOR AUTHOR'S ORGANIZ ATION 02/26/2023 [facility] DATE CREATED AUTHOR AUTHOR'S ORGANIZ ATION 05/04/2023 [facility] Jelli [facility] Source Comments (unrecognize d section and content) In the event this informatio n is protected by the Federal Confidentiality of Alcohol and Drug Abuse Patient Records regulations: The Federal rules restrict any use of the information to criminally investigate or prosecute any alcohol or drug abuse patient.[facility] the event this information is protected by the Federal Confidentiality of Alcohol and Drug Abuse Patient Records regulations: The Federal rules restrict any use of the information to criminally investigate or prosecute any alcohol or drug abuse patient.[facility] the event this information is protected by the Federal Confidentiality of Alcohol and Drug Abuse Patient Records regulations: The Federal rules restrict any use of the information to criminally investigate or prosecute any alcohol or drug abuse patient.[facility] the event this information is protected by the Federal Confidentiality of Alcohol and Drug Abuse Patient Records regulations: The Federal rules restrict any use of the information to criminally investigate or prosecute any alcohol or drug abuse patient.[facility] the event this information is protected by the Federal Confidentiality of Alcohol and Drug Abuse Patient Records regulations: The Federal rules restrict any use of the information to criminally investigate or prosecute any alcohol or drug abuse patient.[facility] Reason for Visit (unrecogniz ed section and content) Reason Comments Nasal Congestion Pt reported bilatera l ear pain, x4 days. Reason Comments Weight Loss NSURG #2 Reason Comments PHOTOS TAKEN Reason Comments Consult Reason Comments Weight Loss NSURG #3 Reason Comments Med Refill Reason Comments Weight Loss NSURG #4 Reason Onset Date Comments Med Refill 02/10/2023 ozempic Reason Comments Weight Loss NSURG #5 Reason Comments Weight Loss NSURG #6 Reason Comments Weight Loss NSURG #7 Care Teams (unrecognized sec tion and content) Flume Maker Relationship Specialty Start Date End Date Mega Cordova DO [address] [place] [address] PCP - General Family Medicine 08/17/22 Flume Maker Relationship Specialty Start Date End Date Juan Alfaro [address] [place] [address] PCP - General 03/25/21 Flume Maker Relationship Specialty Start Date End Date Mega Cordova DO [address] [place] [address] PCP - General Family Medicine 08/17/22 Flume Maker Relationship Specialty Start Date End Date Mega Cordova DO [address] [place] [address] PCP - General Family Medicine 08/17/22 Flume Maker Relationship Specialty Start Date End Date Juan Alfaro [address] [place] [address] PCP - General 03/25/21 Flume Maker Relationship Specialty Start Date End Date Juan Alfaro [facility] 03/25/21 Flume Maker Relationship Specialty Start Date End Date Juan Alfaro (Fax) [facility] 03/25/21 Flume Maker Relationship Specialty Start Date End Date Juan Alfaro (Fax) [facility] 03/25/21 Flume Maker Relationship Specialty Start Date End Date Juan Alfaro (Fax) [facility] 03/25/21 Flume Maker Relationship Specialty Start Date End Date Juan Alfaro [address] [place] [id number] [facility] 03/25/21 Flume Maker Relationship Specialty Start Date End Date Juan Alfaro [address] [place] [phone] [facility] 03/25/21 FOR RECORDS PERTAINING TO PATIENTS WHO ARE OR HAVE BEEN ENROLLED IN A CHEMICAL DEPENDENCY/SUBSTANCEABUSE PROGRAM, SOME INFORMATION MAY BE OMITTED. This clinical summary was aggregated from multiple sources. Caution should be exercised in using it in the provision of clinical care. This summary normalizes information from multiple sources, and as a consequence, information in this document may materially change the coding, format and clinical context of patient data. In addition, data may be omitted in some cases. CLINICAL DECISIONS SHOULD BE BASED ON THE PRIMARY CLINICAL RECORDS. [facility] [employer] [facility]. provides no warranty or guarantee of the accuracy or completeness of information in this document.
[2023-05-26 22:06] LABS: Chlamydia By Nucleic Acid AMP Negative (Negative); Gonococcus By Nucleic Acid AMP Negative (Negative)
== END | disposition home or self-care (01) ==
PROVIDERS: PCP Family Medicine; Visit Provider Nurse Practitioner Women's Health
DX: N94.9 Unspecified condition associated with female genital organs and menstrual cycle (principal)
CPT/HCPCS: 87070; 87205; 87491; 87591

== ENCOUNTER → 2023-06-01 | Outpatient (CLI) | payer MEDICARE, MEDICAID, SELFPAY ==
--- OUTSIDE RECORDS SUMMARY | 2023-06-01 18:50 | XMS RPT_ITS | CCD ---
Author Name Unknown Address [address] [place] [address] Organization [facility] Care Team Providers Care Juvenile Officer Name Role Phone Gwendolyn GORDON, Afsaneh Alfaro Unavailable Unavailable Primary Care Provider Unavaildeborah Alfaro MD, Efewongbe B Primary Care Provider [phone] Mega Cordova DO Primary Care Provider [phone] Oleghe, Efewongbe B Primary Care Provider Oleghe, [...] Facility (1 source) naproxen Drug Allergy 7 [facility] (1 source) varenicline Drug Allergy 7 [facility] (17 sources) Naproxen; Translations: [NAPROXEN] Drug Allergy 1 Other (See Comments), Other: See Comments, Other [place], [place] (1 source) varenicline Drug Allergy 0 Other (See Comments) [place] (16 sources) varenicline; Translations: [VARENICLINE] Drug Allergy 0 Other: See Comments, Other [facility] (5 sources) MITE EXTRACT; Translations: [MITE EXTRACT] Drug Allergy 9 Other: See Comments [facility] (10 sources) House dust mite Propensity to adverse reactions 9 Other [facility] (10 sources) Mold Extract Drug Allergy 9 Other [facility] Medications Current Medications Medication Drug Class(es) Dates Sig (Normalized) Sig (Original) [id number] 200 actuat albuterol 0.09 mg/actuat metered dose [...] 157.5 cm Anai Sutton MD Work Phone: [facility] [employer] 04-29-2023 14:01-0500 Body mass index (BMI) [Ratio] 27.53 kg/m2 Anai Sutton MD Work Phone: [facility] [employer] 04-29-2023 14:01-0500 Body weight 68.27 kg Anai Sutton MD Work Phone: [facility] [employer] 04-29-2023 14:01-0500 Diastolic blood pressure 76 mm[Hg] Anai Sutton MD Work Phone: [facility] [employer] 04-29-2023 14:01-0500 Heart rate 68 /min Anai Sutton MD Work Phone: [facility] [employer] 04-29-2023 14:01-0500 Systolic blood pressure 113 mm[Hg] Anai Sutton MD Work Phone: [facility] [employer] 03-25-2023 11:04-0400 Body height 157.5 cm Anai Sutton MD Work Phone: [facility] [employer] 03-25-2023 11:04-0400 Body mass index (BMI) [Ratio] 28.35 kg/m2 Anai Sutton MD Work Phone: [facility] [employer] 03-25-2023 11:04-0400 Body weight 70.31 kg Anai Sutton MD Work Phone: [facility] [employer] 03-25-2023 11:04-0400 Diastolic blood pressure 60 mm[Hg] Anai Sutton MD Work Phone: [facility] [employer] 03-25-2023 11:04-0400 Heart rate 78 /min Anai Sutton MD Work Phone: [facility] [employer] 03-25-2023 11:04-0400 Systolic blood pressure 91 mm[Hg] Anai Sutton MD Work Phone: [facility] [employer] 02-25-2023 14:06-0400 Body height 157.5 cm Anai Sutton MD Work Phone: [facility] [employer] 02-25-2023 14:06-0400 Body mass index (BMI) [Ratio] 28.97 kg/m2 Anai Sutton MD Work Phone: [facility] [employer] 02-25-2023 14:06-0400 Body weight 71.85 kg Anai Sutton MD Work Phone: [facility] [employer] 02-25-2023 14:06-0400 Diastolic blood pressure 64 mm[Hg] Anai Sutton MD Work Phone: [facility] [employer] 02-25-2023 14:06-0400 Heart rate 76 /min Anai Sutton MD Work Phone: [facility] [employer] 02-25-2023 14:06-0400 Systolic blood pressure 96 mm[Hg] Anai Sutton MD Work Phone: [facility] [employer] 01-19-2023 15:20-0400 Body height 157.5 cm Anai Sutton MD Work Phone: [facility] [employer] 01-19-2023 15:20-0400 Body mass index (BMI) [Ratio] 30.25 kg/m2 Anai Sutton MD Work Phone: [facility] [employer] 01-19-2023 15:20-0400 Body weight 75.03 kg Anai Sutton MD Work Phone: [facility] [employer] 01-19-2023 15:20-0400 Diastolic blood pressure 67 mm[Hg] Anai Sutton MD Work Phone: [facility] [employer] 01-19-2023 15:20-0400 Heart rate 67 /min Anai Sutton MD Work Phone: [facility] [employer] 01-19-2023 15:20-0400 Systolic blood pressure 99 mm[Hg] Anai Sutton MD Work Phone: [facility] [employer] 12-15-2022 14:50-0400 Body height 157.5 cm Anai Sutton MD Work Phone: [facility] 12-15-2022 14:50-0400 Body mass index (BMI) [Ratio] 30.91 kg/m2 Anai Sutton MD Work Phone: [facility] 12-15-2022 14:50-0400 Body weight 76.66 kg Anai Sutton MD Work Phone: [facility] 12-15-2022 14:50-0400 Diastolic blood pressure 69 mm[Hg] Anai Sutton MD Work Phone: [facility] 12-15-2022 14:50-0400 Heart rate 74 /min Anai Sutton MD Work Phone: [facility] 12-15-2022 14:50-0400 Systolic blood pressure 103 mm[Hg] Anai Sutton MD Work Phone: [facility] 12-01-2022 11:21-0400 Body height 156.2 cm Colin Bella MD Work Phone: [facility] 12-01-2022 11:21-0400 Body temperature 96.69 [degF] Colin Bella MD Work Phone: [facility] 12-01-2022 11:21-0400 Body weight 78.02 kg Colin Bella MD Work Phone: [facility] 12-01-2022 11:21-0400 Diastolic blood pressure 46 mm[Hg] Colin Bella MD Work Phone: [facility] 12-01-2022 11:21-0400 Heart rate 85 /min Colin Bella MD Work Phone: [facility] 12-01-2022 11:21-0400 Systolic blood pressure 103 mm[Hg] Colin Bella MD Work Phone: [facility] 11-12-2022 09:42-0400 Body height 157.5 cm Anai Sutton MD Work Phone: [facility] 11-12-2022 09:42-0400 Body mass index (BMI) [Ratio] 31.28 kg/m2 Anai Sutton MD Work Phone: [facility] 11-12-2022 09:42-0400 Body weight 77.56 kg Anai Sutton MD Work Phone: [facility] 11-12-2022 09:42-0400 Diastolic blood pressure 72 mm[Hg] Anai Sutton MD Work Phone: [facility] 11-12-2022 09:42-0400 Heart rate 81 /min Anai Sutton MD Work Phone: [facility] 11-12-2022 09:42-0400 Systolic blood pressure 109 mm[Hg] Anai Sutton MD Work Phone: [facility] 08-17-2022 18:13-0400 Body temperature 99.3 [degF] Collin Tolentino PHOTONICS ENGINEERING TECHNOLOGIST.PREPLEATER Work Phone: [facility] 08-17-2022 18:13-0400 Body weight 76.57 kg Collin Tolentino PHOTONICS ENGINEERING TECHNOLOGIST.PREPLEATER Work Phone: [facility] 08-17-2022 18:13-0400 Diastolic blood pressure 90 mm[Hg] Collin Tolentino PHOTONICS ENGINEERING TECHNOLOGIST.PREPLEATER Work Phone: [facility] 08-17-2022 18:13-0400 Heart rate 102 /min Collin Tolentino PHOTONICS ENGINEERING TECHNOLOGIST.PREPLEATER Work Phone: [facility] 08-17-2022 18:13-0400 Respiratory rate 16 /min Collin Tolentino PHOTONICS ENGINEERING TECHNOLOGIST.PREPLEATER Work Phone: [facility] 08-17-2022 18:13-0400 SaO2% (BldA) [Mass fraction] 99 % Collin Tolentino PHOTONICS ENGINEERING TECHNOLOGIST.PREPLEATER Work Phone: [facility] 08-17-2022 18:13-0400 Systolic blood pressure 136 mm[Hg] Collin Tolentino PHOTONICS ENGINEERING TECHNOLOGIST.PREPLEATER Work Phone: [facility] 01-11-2022 18:23-0400 Body temperature 98.8 [degF] Collin Tolentino PHOTONICS ENGINEERING TECHNOLOGIST.PREPLEATER Work Phone: [facility] 01-11-2022 18:23-0400 Body weight 82.1 kg Collin Tolentino PHOTONICS ENGINEERING TECHNOLOGIST.PREPLEATER Work Phone: [facility] 01-11-2022 18:23-0400 Diastolic blood pressure 84 mm[Hg] Collin Tolentino PHOTONICS ENGINEERING TECHNOLOGIST.PREPLEATER Work Phone: [facility] 01-11-2022 18:23-0400 Heart rate 102 /min Collin Tolentino PHOTONICS ENGINEERING TECHNOLOGIST.PREPLEATER Work Phone: [facility] 01-11-2022 18:23-0400 Respiratory rate 16 /min Collin Tolentino PHOTONICS ENGINEERING TECHNOLOGIST.PREPLEATER Work Phone: [facility] 01-11-2022 18:23-0400 SaO2% (BldA) [Mass fraction] 99 % Collin Tolentino PHOTONICS ENGINEERING TECHNOLOGIST.PREPLEATER Work Phone: [facility] 01-11-2022 18:23-0400 Systolic blood pressure 142 mm[Hg] Collin Tolentino PHOTONICS ENGINEERING TECHNOLOGIST.PREPLEATER Work Phone: [facility] Encounters Encounter Date Encounter Type Care Provider Facility Start: 04-29-2023 End: 04-29-2023 ambulatory ANAICHOLO SUTTON [facility] Start: 04-29-2023 End: 04-29-2023 Office outpatient visit 15 minutes Anai Sutton MD Work Phone: [facility] Procedures Date Procedure Procedure Detail Performing Clinician [...] or older (1 - 1-dose 60+ series) [facility] Start: 2040 Zoster Vaccines (1 of 2) Zoster Vaccines (1 of 2) [facility] Start: 11-15-2029 DTaP/Tdap/Td vaccine (8 - Td) DTaP/Tdap/Td vaccine (8 - Td) [place] Start: 11-15-2029 DTaP/Tdap/Td Vaccines (9 - Td or Tdap) DTaP/Tdap/Td Vaccines (9 - Td or Tdap) [facility] Start: 06-19-2026 Lipid panel Lipid Panel [facility] Start: 06-03-2023 End: 06-03-2023 Patient encounter procedure 06/03/2023 11:40 AM EST Office Visit [facility] [address] [place] [phone] Anai Sutton MD [address] [place], [place] [id number] [facility] Start: 04-29-2023 End: 04-29-2023 Patient encounter procedure 04/29/2023 2:00 PM EST Office Visit [facility] [address] [place] [phone] Anai Sutton MD [address] [place], [place] [id number] [facility] Start: 03-25-2023 End: 03-25-2023 Patient encounter procedure 03/25/2023 11:10 AM EDT Office Visit [facility] [address] [place] [phone] Anai Sutton MD [address] [place], [place] [id number] [facility] Start: 02-25-2023 End: 02-25-2023 Patient encounter procedure 02/25/2023 2:10 PM EDT Office Visit [facility] [address] [place] [phone] Anai Sutton MD [address] [place], [place] [id number] [facility] [place] Start: 01-21-2023 COVID-19 Vaccine () COVID-19 Vaccine () [facility] Start: 01-21-2023 Influenza vaccination [facility] Start: 01-19-2023 End: 01-19-2023 Patient encounter procedure 01/19/2023 3:20 PM EDT Office Visit [facility] [address] [place] [phone] Anai Sutton MD [address] [place], [place] [id number] [facility] [place] Start: 12-15-2022 End: 12-15-2022 Patient encounter procedure 12/15/2022 3:10 PM EDT Office Visit [facility] [address] [place] [phone] Anai Sutton MD [address] [place], [place] [id number] [facility] Start: 06-19-2022 Diabetes mellitus screening Diabetes Screening [facility] Start: 01-21-2022 Influenza vaccination INFLUENZA (#1) [facility] Start: 10-13-2021 PAP TESTING PAP TESTING [facility] Start: 09-15-2021 COVID-19 VACCINE (4 - Booster for Moderna series) COVID-19 VACCINE (4 - Booster for Moderna series) [facility] Start: 09-15-2021 COVID-19 VACCINE (4 - Moderna series) COVID-19 VACCINE (4 - Moderna series) [facility] Start: 2020 HPV TESTING HPV TESTING [facility] Start: 2020 Screening for malignant neoplasm of cervix [facility] Start: 01-22-2020 Influenza vaccination Flu vaccine (#1) [place], [place] Start: 06-23-2015 Urine microalbumin profile DTAP,TDAP,TD (7 - Td or Tdap) [facility] Start: 2011 Screening for malignant neoplasm of cervix [facility] Start: 2008 ANNUAL PCP TEAM CHRONIC DISEASE VISIT ANNUAL PCP TEAM CHRONIC DISEASE VISIT [facility] Start: 2008 Hepatitis C screening Hepatitis C Screening [facility] Start: 2008 SPIROMETRY SPIROMETRY [facility] Start: 2005 HIV screening HIV screen [place], [place] Start: 04-26-2005 Varicella vaccination Varicella Vaccines (1 of 2 - 2-dose childhood series) [facility] Start: 2002 Depression Screening Depression Screening [facility] Start: 1996 PNEUMOCOCCAL (1 - PCV) PNEUMOCOCCAL (1 - PCV) [facility] Start: 1991 Varicella vaccine (1 of 2 - 2-dose childhood series) Varicella vaccine (1 of 2 - 2-dose childhood series) [place] Start: 1990 HIV screening HIV Screening [facility] Start: 1990 Medicare Advantage Annual Wellness Visit (AWV) Medicare Advantage Annual Wellness Visit (AWV) [facility] Immunizations Immunization Date Immunization Notes Care Provider Iris langley 02-01-2022 influenza virus vaccine, unspecified formulation Anai Sutton MD Work Phone: [facility] 02-13-2021 COVID-19 vaccine, fu ll dose (MODERNA) Collin Tolentino PHOTONICS ENGINEERING TECHNOLOGIST.PREPLEATER Work Phone: [facility] 07-27-2007 human papilloma viru s vaccine, quadrivalent Collin Tolentino PHOTONICS ENGINEERING TECHNOLOGIST.PREPLEATER Work Phone: [facility] Work Phone: 02-14-2007 human papilloma viru s vaccine, quadrivalent Collin Tolentino PHOTONICS ENGINEERING TECHNOLOGIST.PREPLEATER Work Phone: [facility] 01-10-2007 human papilloma viru s vaccine, quadrivalent Collin Tolentino PHOTONICS ENGINEERING TECHNOLOGIST.PREPLEATER Work Phone: [facility] Work Phone: 01-10-2007 Meningococcal, MCV4, unspecified conjugate formulation(groups A, C, Y and W-135) Collinbrit Tolentino PHOTONICS ENGINEERING TECHNOLOGIST.[facility] Work Phone: [facility] Work Phone: 02-07-2006 hepatitis B vaccine, pediatric or pediatric/adolescent dosage Collin Tolentino PHOTONICS ENGINEERING TECHNOLOGIST.[facility] Work Phone: [facility] Work Phone: 07-29-2005 hepatitis B vaccine, pediatric or pediatric/adolescent dosage Collin Tolentino PHOTONICS ENGINEERING TECHNOLOGIST.[facility] Work Phone: [facility] Work Phone: 06-23-2005 hepatitis B vaccine, pediatric or pediatric/adolescent dosage Collin Tolentino PHOTONICS ENGINEERING TECHNOLOGIST.[facility] Work Phone: [facility] Work Phone: 06-23-2005 tetanus toxoid, redu emmanuel diphtheria toxoid, and acellular pertussis vaccine, adsorbed Collinbrit Tolentino PHOTONICS ENGINEERING TECHNOLOGIST.[facility] Work Phone: [facility] Work Phone: 03-29-2005 influenza virus vaccine, live, attenuated, for intranasal use Collin Tolentino PHOTONICS ENGINEERING TECHNOLOGIST.[facility] Work Phone: [facility] Work Phone: 07-22-1999 Chicken Pox (disease) Helen Tolentino PHOTONICS ENGINEERING TECHNOLOGIST.[facility] Work Phone: [facility] Work Phone: 11-21-1995 diphtheria, tetanus toxoids and pertussis vaccine Collin Tolentino PHOTONICS ENGINEERING TECHNOLOGIST.[facility] Work Phone: [facility] Work Phone: 11-21-1995 measles, mumps and rubella virus vaccine Collin Tolentino PHOTONICS ENGINEERING TECHNOLOGIST.[facility] Work Phone: [facility] Work Phone: 11-21-1995 trivalent poliovirus vaccine, live, oral Collinbrit Tolentino PHOTONICS ENGINEERING TECHNOLOGIST.PREPLEATER Work Phone: [facility] Work Phone: 11-08-1991 diphtheria, tetanus toxoids and pertussis vaccine Collin Tolentino PHOTONICS ENGINEERING TECHNOLOGIST.[facility] Work Phone: [facility] Work Phone: 11-08-1991 trivalent poliovirus vaccine, live, oral Collin Tolentino PHOTONICS ENGINEERING TECHNOLOGIST.[facility] Work Phone: [facility] Work Phone: 08-09-1991 haemophilus influenz ae type b vaccine, HbOC conjugate Collin Tolentino PHOTONICS ENGINEERING TECHNOLOGIST.[facility] Work Phone: [facility] Work Phone: 08-09-1991 measles, mumps and rubella virus vaccine Collin Tolentino PHOTONICS ENGINEERING TECHNOLOGIST.[facility] Work Phone: [facility] Work Phone: 01-04-1991 haemophilus influenz ae type b vaccine, HbOC conjugate Collin Tolentino PHOTONICS ENGINEERING TECHNOLOGIST.[facility] Work Phone: [facility] Work Phone: 1990 diphtheria, tetanus toxoids and pertussis vaccine Collin Tolentino PHOTONICS ENGINEERING TECHNOLOGIST.[facility] Work Phone: [facility] Work Phone: 1990 haemophilus influenz ae type b vaccine, HbOC conjugate Collin Tolentino PHOTONICS ENGINEERING TECHNOLOGIST.[facility] Work Phone: [facility] Work Phone: 1990 diphtheria, tetanus toxoids and pertussis vaccine Collin Tolentino PHOTONICS ENGINEERING TECHNOLOGIST.[facility] Work Phone: [facility] Work Phone: 1990 haemophilus influenz ae type b vaccine, HbOC conjugate Collin Tolentino PHOTONICS ENGINEERING TECHNOLOGIST.[facility] Work Phone: [facility] Work Phone: 1990 trivalent poliovirus vaccine, live, oral Collin Tolentino PHOTONICS ENGINEERING TECHNOLOGIST.[facility] Work Phone: [facility] Work Phone: 1990 diphtheria, tetanus toxoids and pertussis vaccine Collin Tolentino PHOTONICS ENGINEERING TECHNOLOGIST.PREPLEATER Work Phone: [facility] Work Phone: 1990 trivalent poliovirus vaccine, live, oral Collin Rajan PHOTONICS ENGINEERING TECHNOLOGIST.PREPLEATER Work Phone: [facility] Work Phone: Payers Date Payer Category Payer Medicare [employer] UHC DUAL COMPLETE [id number] 2022-Present [address] [place] [address] Medicare HMO [id number] 2022 Medicare [id number] 2021 Medicaid [id number] 2021 Medicaid [id number] Social History Date Type Detail Facility Tobacco smoking stat us [facility] Unknown if ever smoked [employer] Start: 1990 [facility] Start: 01-11-2022 End: 11-12-2022 Tobacco smoking status NHIS Ex-smoker [facility] Work Phone: End: 05-23-2011 History of tobacco use Current smoker [facility] Work Phone: End: 05-23-2011 History of tobacco use Cigarette Smoker [facility] Work Phone: Start: 01-11-2022 End: 03-25-2023 Cigarettes smoked current (pack per day) - Reported 0.5 [facility] Start: 01-11-2022 End: 11-12-2022 Tobacco use and exposure Smokeless tobacco non-user [facility] Work Phone: Start: 01-11-2022 End: 03-25-2023 Alcohol intake Current drinker of alcohol (finding) [facility] Start: 01-11-2022 Tobacco Comment quit 2011 [facility] Start: 01-01-2022 End: 01-19-2023 Exposure to SARS-CoV-2 (event) Not sure [facility] Work Phone: Start: 05-11-2022 End: 03-25-2023 Tobacco use panel [facility] Start: 1990 Sex Assigned At Female [facility] Start: 03-11-2022 Gender identity Identifies as female gender (finding) [facility] Start: 03-11-2022 Sexual orientation Heterosexual (fin ding) [facility] National Score (1-10 0), lower number is lower risk 77 [facility] Clinical Notes 01-07-2016 to 04-29-2023 Anai Sutton [...] Weight Metrics (CARE Path) Date of Initial Consultation:@FLOWLAST(6984)@ Initial Weight: @FLOWLAST([id number])@ Initial BMI: @FLOWLAST([id number])@ [place]ffs Body Weight: @FLOWLAST([id number])@ Excess Body Weight: @FLOWLAST([id number])@ Body Fat Percentage: No flowsheet data found. [...] Angelic Vera LPN documented in this encounter [facility] 03-25-2023 History of Presen t illness Narrative [facility] NON-SURGICAL WEIGHT LOSS MANAGEMENT PROGRAM ROOMING [...] Path) Date of Initial Consultation:@FLOWLAST(8961)@ Initial Weight: @FLOWLAST([id number])@ Initial BMI: @FLOWLAST([id number])@ Neffs Body Weight: @FLOWLAST([id number])@ Excess Body Weight: @FLOWLAST([id number])@ Body Fat Percentage: No flowsheet data found. [...] updated and completed. documented in this encounter [facility] 02-25-2023 History of Presen t illness Narrative [facility] NON-SURGICAL WEIGHT LOSS MANAGEMENT PROGRAM [...] Path) Date of Initial Consultation:@FLOWLAST(8961)@ Initial Weight: @FLOWLAST([id number])@ Initial BMI: @FLOWLAST([id number])@ Neffs Body Weight: @FLOWLAST([id number])@ Excess Body Weight: @FLOWLAST([id number])@ Body Fat Percentage: No flowsheet data found. [...] updated and completed. documented in this encounter [facility] 02-10-2023 Telephone encounter Note Please sign orders. Thank you! [facility] 02-10-2023 Miscellaneous Notes Please sign orders. Thank you! Patient left VM that she will run out of ozempic before her next apt with NK. Requesting a refill. documented in this encounter [facility] 02-10-2023 Telephone encounter Note Patient left VM that she will run out of ozempic before her next apt with NK. Requesting a refill. [facility] 01-19-2023 History of Presen t illness Narrative [facility] NON-SURGICAL WEIGHT LOSS MANAGEMENT PROGRAM ROOMING [...] Path) Date of Initial Consultation:@FLOWLAST(8961)@ Initial Weight: @FLOWLAST([id number])@ Initial BMI: @FLOWLAST([id number])@ Neffs Body Weight: @FLOWLAST([id number])@ Excess Body Weight: @FLOWLAST([id number])@ Body Fat Percentage: No flowsheet data found. [...] updated and completed. documented in this encounter [facility] 01-12-2023 Note HNO ID: [id number] Author: Shelia Tapia PA-C Service: ? Author Type: Physician Grid Molder Type: Progress Notes Filed: 01/12/2023 9:31 AM Note Text: Patient presents with express care with severe abdominal pain for 2 days. She rates it a 9/10 in upper abdomen. She feels nauseated. Patient in tears and in obvious pain here. She just started ozempic as well. I recommended being seen I the ER. She will go to [facility] for further care. [facility] 01-12-2023 History of Presen t illness Narrative Patient presents with express care with severe abdominal pain for 2 days. She rates it a 9/10 in upper abdomen. She feels nauseated. Patient in tears and in obvious pain here. She just started ozempic as well. I recommended being seen I the ER. She will go to [facility] for further care. documented in this encounter [facility] 12-15-2022 History of Presen t illness Narrative [...] Path) Date of Initial Consultation:@FLOWLAST(8961)@ Initial Weight: @FLOWLAST([id number])@ Initial BMI: @FLOWLAST([id number])@ Neffs Body Weight: @FLOWLAST([id number])@ Excess Body Weight: @FLOWLAST([id number])@ Body Fat Percentage: No flowsheet data found. [...] updated and completed. documented in this encounter [facility] 12-01-2022 Note HNO ID: [id number] Author: [facility] Service: ? Author Type: Web Manager Type: Progress Notes Filed: 12/01/2022 12:11 PM Note Text: DATE OF PHOTOS: 12/01/2022 Body Part: Breasts and Abdomen [facility] December 01, 2022 12:10 PM [facility] 12-01-2022 Note HNO ID: [id number] Author: Colin Bella MD Service: ? Author [...] Smoking history: Former smoker, quit 2011 Lives: [place], [place] PAST MEDICAL HISTORY Diagnosis Date Anxiety Asthma [...] phentermine HCl (ADIPEX-P ORAL) Take by mouth. Tlejpiaebitsr-Tz-Plgw-Minerals (MULTIPLE VITAMIN, WOMENS) tab Take 1 tablet [...] up for preoperativ (more content not included)... [facility] 12-01-2022 History of Presen t illness Narrative DATE OF PHOTOS: 12/01/2022 Body Part: Breasts and Abdomen [facility] December 01, 2022 12:10 PM documented in this encounter [facility] 12-01-2022 History of Presen t illness Narrative [...] Smoking history: Former smoker, quit 2011 Lives: [place], near [place] PAST MEDICAL HISTORY Diagnosis Date Anxiety Asthma [...] phentermine HCl (ADIPEX-P ORAL) Take by mouth. Tkrhtaslsjkeg-Ms-Hzka-Minerals (MULTIPLE VITAMIN, WOMENS) tab Take 1 tablet [...] his service. Scribed by Christina Case APRN, ROOM SERVICE SUPERVISOR-C I agree with the Chief Complaint, ROS, and Past Histories independently gathered by the clinical media production support manager and the remaining scribed note accurately describes my personal service to the patient. Colin Bella MD documented in this encounter [facility] 11-12-2022 Note [facility] NON-SURGICAL [...] the Patient, which is located in the Valve Repairer Tab. History: Past Medical History: Diagnosis Date [...] 2016 [place] - laparoscopic BREAST SURGERY Bilateral [facility] SECTION (HISTORICAL) 2019 [place] - pfannenstiel SECTION (HISTORICAL) 2011 [place] - pfannenstiel HIP SURGERY Right Labral tear, shaved hip bone during SX- [facility] KNEE SURGERY Bilateral [place]- Plica removal TONSILLECTOMY AND ADENOIDECTOMY (HISTORICAL) [place] [...] (77.6 kg) BMI 31.28 kg/m? Weight Metrics: [place] Body Weight: Excess Body Weight: [place] BMI: 24 General: This patient is alert [...] include: none Current Activity 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 net trainer Current Eating Behaviors structured Health and Behavior Inventory Patient scores as (Select one): [] Unguided Grazer [] Nighttime Nibbler [] Convenient Consumer [] Fruitless Igor [] Mindless Muncher [] Hearty Portioner [] Deprived Sneaker [] Hate to Move Struggler [] Self-Conscious Hider [] Inexperienced [place] [] Ale-om-Kigthan Doer [] Set-Routine Repeater [] Uoidz-zum-Asnor Sufferer [] Ri-ubss-yo-Exercise Protester [] Emotional Music Minister [] Wts-Tesq-Vygdgs Sufferer [] Persistent Procrastinator [] Can?t-Say-No Pleaser [...] current management, katie (more content not included)... [facility] 11-12-2022 History of Presen t illness Narrative [...] Weight Metrics (CARE Path) Date of Initial Consultation:@FLOWLAST([id number])@ Initial Weight: @FLOWLAST([id number])@ Initial BMI: @FLOWLAST([id number])@ [place]ffs Body Weight: @FLOWLAST([id number])@ Excess Body Weight: @FLOWLAST([id number])@ Body Fat Percentage: No flowsheet data found. [...] on home O2 Completed by: Jessie Butler [facility] NON-SURGICAL WEIGHT LOSS MANAGEMENT PROGRAM PROGRESS NOTE [...] the Patient, which is located in the Valve Repairer Tab. History: Past Medical History: Diagnosis Date [...] Surgical History: Procedure Laterality Date APPENDECTOMY 2016 [place] - laparoscopic BREAST SURGERY Bilateral [facility] SECTION (HISTORICAL) 2019 [place] - pfannenstiel SECTION (HISTORICAL) 2011 [place] - pfannenstiel HIP SURGERY Right Labral tear, shaved hip bone during SX- [facility] KNEE SURGERY Bilateral [place]- Plica removal TONSILLECTOMY AND ADENOIDECTOMY (HISTORICAL) [place] Family History Problem Relation Name Age of [...] (77.6 kg) BMI 31.28 kg/m Weight Metrics: [place] Body Weight: Excess Body Weight: [place] BMI: 24 General: This patient is alert [...] include: none Current Activity 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 net trainer Current Eating Behaviors structured Health and Behavior Inventory Patient scores as (Select one): [] Unguided Grazer [] Nighttime Nibbler [] Convenient Consumer [] Fruitless Igor [] Mindless Muncher [] Hearty Portioner [] Deprived Sneaker [] Hate to Move Struggler [] Self-Conscious Hider [] Inexperienced [place] [] Jjn-va-Jcmxluy Doer [] Set-Routine Repeater [] Bhjwo-cqg-Geclx Sufferer [] Fz-lplm-af-Exercise Protester [] Emotional Music Minister [] Hta-Qdjl-Ljqvdn Sufferer [] Persistent Procrastinator [] Can t-Say-No [...] Take 1 capsule by mouth daily. BIOTIN 46582 MCG TABLET DISPERSIBLE Take by mouth. CHOLECALCIFEROL [...] in weight loss journey discussed 6.will use [employer] for communication and let me know if she is using ozempic The patient was seen and a full chart review was performed.Clinical documentation is updated and completed. documented in this encounter [facility] 08-17-2022 Note HNO ID: [id number] Author: Collin Tolentino APRN.PREPLEATER Service: ? 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 No medical interpreter was used. Ear Pain This is a [...] by mouth twice daily for 7 days. Hbdbyyjuycncu-Je-Ijfb-Minerals (MULTIPLE VITAMIN, WOMENS) tab Take 1 tablet [...] for arthralgias, back (more content not included)... [facility] 08-17-2022 History of Presen t illness Narrative This note was created using [employer]ootcard[employer]. Subjective Collin Aparicio is a 32 year old female. 32 year old female with PMH ashtma, ADHD, depression and anxiety presents for complaints of illness. Acute onset 4 days ago Started with bilateral ear pain Popping Left greater than right +nasal drainage +post nasal +sore throat Denies cough Denies emesis. Denies diarrhea. 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 No medical interpreter was used. Ear Pain This is a [...] by mouth twice daily for 7 days. Mialtirweunic-Tr-Szcu-Minerals (MULTIPLE VITAMIN, WOMENS) tab Take 1 tablet [...] Collin Tolentino APRN.EDEN documented in this encounter [facility] 01-11-2022 Instructions Collin Tolentino APRN.CNP - 01/11/2022 [...] even if the symptoms go away. 2. Ylly-yxd-cnraedo pain medication may be taken or other [...] him or her). documented in this encounter [facility] 01-11-2022 History of Presen t illness Narrative This note was created using [employer]. Subjective Collin Shaila Kavin is a 31 [...] chills. 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 No medical interpreter was used. Ear Pain This is a [...] by mouth once daily for 1 day. Kijrpqwqocevs-Kq-Adzq-Minerals (MULTIPLE VITAMIN, WOMENS) tab Take 1 tablet [...] if symptoms persist or worsen. Collin Tolentino APRN.PREPLEATER documented in this encounter [facility] documented as of this encounter (statuses as of 01/11/2022) [facility] History of Past illness Narrative* Problem Noted [...] strain on 09/07/10 per ER note from [facility]. Personal history of tobacco use 03/03/2010 09/17/2011 Overview: Quit 02/2010 Tobacco use disorder 03/31/2009 03/03/2010 Tonsillitis 03/31/2009 04/27/2011 Overview: Plans to have T&A now that has quit smoking. Backache, unspecified 05/26/2006 09/17/2011 Overview: Dr. Harrison; History scoliosis Hypertrophy of breast 01/07/2005 04/27/2011 Abdominal pain, epigastric 01/07/200503/03 Abdominal pain, generalized 01/07/200502/20 documented as of this encounter (statuses as of 08/18/2022) [facility] History of Past illness Narrative* Problem Noted [...] strain on 09/07/10 per ER note from [facility]. Personal history of tobacco use 03/03/2010 09/17/2011 Overview: Quit 02/2010 Tobacco use disorder 03/31/2009 010 Tonsillitis 03/31/2009 04/27/2011 Overview: Plans to have T&A now that has quit smoking. Backache, unspecified 05/26/20062011 Overview: Dr. Harrison; History scoliosis Hypertrophy of breast 01/07/20052010 Abdominal pain, epigastric 01/07/2005 1 Abdominal pain, generalized 01/07/2005 03/03/2010 documented as of this encounter (statuses as of 12/01/2022) [facility] History of Past illness Narrative* Problem Noted [...] strain on 09/07/10 per ER note from [facility]. Personal history of tobacco use 03/03/2010 09/17/2011 Overview: Quit 02/2010 Tobacco use disorder 03/31/2009 010 Tonsillitis 03/31/2009 04/27/2011 Overview: Plans to have T&A now that has quit smoking. Backache, unspecified 05/26/20062011 Overview: Dr. Harrison; History scoliosis Hypertrophy of breast 01/07/20052010 Abdominal pain, epigastric 01/07/2005 1 Abdominal pain, generalized 01/07/2005 03/03/2010 documented as of this encounter (statuses as of 12/03/2022) [facility] History of Past illness Narrative* Problem Noted [...] strain on 09/07/10 per ER note from [facility]. Personal history of tobacco use 03/03/2010 09/17/2011 Overview: Quit 02/2010 Tobacco use disorder 03/31/2009 010 Tonsillitis 03/31/2009 04/27/2011 Overview: Plans to have T&A now that has quit smoking. Backache, unspecified 05/26/20062011 Overview: Dr. Harrison; History scoliosis Hypertrophy of breast 01/07/20052010 Abdominal pain, epigastric 01/07/2005 1 Abdominal pain, generalized 01/07/2005 03/03/2010 documented as of this encounter (statuses as of 01/12/2023) [facility] note* Diagnosis Acute otitis media, right- Primary Unspecified otitis media documented in this encounter [facility] note* Diagnosis Acute otitis media, bilateral- Primary Unspecified otitis media Rhinosinusitis Unspecified sinusitis (chronic) documented in this encounter [facility] note* Diagnosis BMI 31.0-31.9,adult- Primary Class 1 obesity with serious comorbidity and body mass index (BMI) of 31.0 to 31.9 in adult, unspecified obesity type JAZZMINE (obstructive sleep apnea) Obstructive sleep apnea (adult) (pediatric) Insulin resistance Other abnormal glucose [facility] Diagnosis Diastasis recti- Primary Diastasis of muscle Localized adiposity [facility] Diagnosis Insulin resistance- Primary Other abnormal glucose BMI 30.0-30.9,adult Class 1 obesity without serious comorbidity with body mass index (BMI) of 30.0 to 30.9 in adult, unspecified obesity type documented in this encounter [facility] note* Diagnosis Abdominal pain, unspecified abdominal location- Primary documented in this encounter [facility] note* Diagnosis Insulin resistance- Primary Other abnormal glucose BMI 30.0-30.9,adult Class 1 obesity without serious comorbidity with body mass index (BMI) of 30.0 to 30.9 in adult, unspecified obesity type documented in this encounter [facility] note* Diagnosis Insulin resistance Other abnormal glucose documented in this encounter [facility] note* Diagnosis Insulin resistance- Primary Other abnormal glucose BMI 28.0-28.9,adult Overweight (BMI 25.0-29.9) Overweight documented in this encounter [facility] note* Diagnosis Insulin resistance- Primary Other abnormal glucose BMI 28.0-28.9,adult Overweight (BMI 25.0-29.9) Overweight documented in this encounter [facility] note* Diagnosis Insulin resistance- Primary Other abnormal glucose BMI 27.0-27.9,adult Overweight (BMI 25.0-29.9) Overweight documented in this encounter [facility] Summary Purpose Family History No Family History [...] DATE CREATED AUTHOR AUTHOR'S ORGANIZ ATION 03/26/2021 [facility] [employer] [facility] DATE CREATED AUTHOR AUTHOR'S ORGANIZ ATION 08/20/2021 [facility] [employer] [facility] DATE CREATED AUTHOR AUTHOR'S ORGANIZ ATION 02/26/2023 [facility] DATE CREATED AUTHOR AUTHOR'S ORGANIZ ATION 05/04/2023 [facility] [employer] [facility] Source Comments (unrecognize d section and content) In the event this informatio n is protected by the Federal Confidentiality of Alcohol and Drug Abuse Patient Records regulations: The Federal rules restrict any use of the information to criminally investigate or prosecute any alcohol or drug abuse patient.[facility] event this information is protected by the Federal Confidentiality of Alcohol and Drug Abuse Patient Records regulations: The Federal rules restrict any use of the information to criminally investigate or prosecute any alcohol or drug abuse patient.[facility] the event this information is protected by the Federal Confidentiality of Alcohol and Drug Abuse Patient Records regulations: The Federal rules restrict any use of the information to criminally investigate or prosecute any alcohol or drug abuse patient.[facility] the event this information is protected by the Federal Confidentiality of Alcohol and Drug Abuse Patient Records regulations: The Federal rules restrict any use of the information to criminally investigate or prosecute any alcohol or drug abuse patient.[facility] the event this information is protected by the Federal Confidentiality of Alcohol and Drug Abuse Patient Records regulations: The Federal rules restrict any use of the information to criminally investigate or prosecute any alcohol or drug abuse patient.[facility] Reason for Visit (unrecogniz ed section and [...] Care Teams (unrecognized sec tion and content) Juvenile Officer Relationship Specialty Start Date End Date Mega Cordova DO [address] [facility] [address] [place] [address] PCP - General Family Medicine 08/17/22 Juvenile Officer Relationship Specialty Start Date End Date Juan Alfaro [address] [place] [address] PCP - General 03/25/21 Juvenile Officer Relationship Specialty Start Date End Date Mega Cordova DO [address] [facility] [address] [place] [address] PCP - General Family Medicine 08/17/22 Juvenile Officer Relationship Specialty Start Date End Date Mega Cordova DO [address] [facility] [address] [place] [address] PCP - General Family Medicine 08/17/22 Juvenile Officer Relationship Specialty Start Date End Date Juan Alfaro [address] [place] [address] PCP - General 03/25/21 Juvenile Officer Relationship Specialty Start Date End Date Juan Alfaro [facility] 03/25/21 Juvenile Officer Relationship Specialty Start Date End Date Juan Alfaro (Fax) [facility] 03/25/21 Juvenile Officer Relationship Specialty Start Date End Date Juan Alfaro (Fax) [facility] 03/25/21 Juvenile Officer Relationship Specialty Start Date End Date Juan Alfaro (Fax) [facility] 03/25/21 Juvenile Officer Relationship Specialty Start Date End Date Juan Alfaro [address] [place] [phone] [facility] 03/25/21 Juvenile Officer Relationship Specialty Start Date End Date Juan Alfaro [address] [place] [phone] [facility] 03/25/21 FOR RECORDS [...] BE BASED ON THE PRIMARY CLINICAL RECORDS. [facility] [employer] [facility]. provides no warranty or guarantee of the accuracy or completeness of information in this document.
[2023-06-06 19:08] LABS: HPV APTIMA, High Risk Negative (Negative)
== END | disposition home or self-care (01) ==
PROVIDERS: PCP Family Medicine; Visit Provider Obstetrics & Gynecology
DX: Z12.4 Encounter for screening for malignant neoplasm of cervix (principal)
CPT/HCPCS: 87624; 88175; G0145

== ENCOUNTER → 2023-06-16 | Outpatient (CLI) | payer MEDICARE, MEDICAID, SELFPAY ==
[2023-06-16 09:18] LABS: Absolute Lymphocyte Count 2.29 X10^3/uL (0.83-4.51); Absolute Neutrophil Count 1.8 X10^3/uL (2.0-7.7); Basophil# 0.04 X10^3/uL; Basophil% 0.9 % (0-1); Eosinophil# 0.05 X10^3/uL; Eosinophils% 1.1 % (0-5); Hematocrit 35.3 % (37-47); Hemoglobin 11.9 g/dL (12.0-15.0); Lymphocyte # 2.29 X10^3/ul (0.83-4.51); Lymphocyte % 50.6 % (19-41); Mean Corp Hgb Conc 33.7 g/dL (32-36); Mean Corpuscular Hgb 29.5 pg (27.0-32.0); Mean Corpuscular Volume 87.4 fL (81-99); Monocyte# 0.35 X10^3/uL; Monocyte% 7.7 % (0-10); NRBC Flagged by Analyzer 0 % (0-5); Neutrophil % 39.7 % (47-70); Platelet Count 356 K/mm3 (150-450); RBC Distribution Width SD 41.4 fl (35.1-43.9); Red Blood Count 4.04 M/mm3 (4.2-5.4); White Blood Count 4.5 K/mm3 (4.4-11.0)
[2023-06-16 10:05] LABS: Ferritin 13 ng/mL (8-252); Iron Binding Capacity,Total 316 ug/dL (250-450)
== END | disposition home or self-care (01) ==
PROVIDERS: PCP Family Medicine; Referring Provider Obstetrics & Gynecology; Visit Provider Obstetrics & Gynecology
DX: Z01.419 Encounter for gynecological examination (general) (routine) without abnormal findings (principal); M25.561 Pain in right knee
CPT/HCPCS: 36415; 82728; 83550; 85025

== ENCOUNTER 2023-10-26 17:05 | Outpatient (CLI) | payer MEDICARE, MEDICAID, SELFPAY ==
[2023-10-29 06:10] LABS: Chlamydia By Nucleic Acid AMP Negative (Negative); Gonococcus By Nucleic Acid AMP Negative (Negative)
== END 2023-10-26 23:59 | disposition home or self-care (01) ==
PROVIDERS: Referring Provider Nurse Practitioner Family; Visit Provider Nurse Practitioner Family
DX: Z11.3 Encounter for screening for infections with a predominantly sexual mode of transmission (principal); N94.9 Unspecified condition associated with female genital organs and menstrual cycle
CPT/HCPCS: 87070; 87205; 87491; 87591

== ENCOUNTER → 2023-11-16 | Outpatient (CLI) | payer MEDICARE, MEDICAID, SELFPAY ==
[2023-11-16 12:23] LABS: Absolute Lymphocyte Count 2.12 X10^3/uL (0.83-4.51); Basophil# 0.05 X10^3/uL; Basophil% 1.1 % (0-1); Eosinophil# 0.05 X10^3/uL; Eosinophils% 1.1 % (0-5); Hematocrit 35.2 % (37-47); Hemoglobin 11.8 g/dL (12.0-15.0); Lymphocyte # 2.12 X10^3/ul (0.83-4.51); Lymphocyte % 46.1 % (19-41); Mean Corp Hgb Conc 33.5 g/dL (32-36); Mean Corpuscular Hgb 29.3 pg (27.0-32.0); Mean Corpuscular Volume 87.3 fL (81-99); Mean Platelet Vol. 9.5 fl (6.2-12.0); Monocyte# 0.33 X10^3/uL; Monocyte% 7.2 % (0-10); NRBC Flagged by Analyzer 0 % (0-5); Neutrophil # 2.04 X10^3/uL (2.7-7.7); Neutrophil % 44.3 % (47-70); Platelet Count 321 K/mm3 (150-450); RBC Distribution Width CV 11.9 % (11.6-14.6); RBC Distribution Width SD 38.1 fl (35.1-43.9); Red Blood Count 4.03 M/mm3 (4.2-5.4); White Blood Count 4.6 K/mm3 (4.4-11.0)
[2023-11-16 12:31] LABS: Hemoglobin A1c 4.8 % (3.8-5.6)
[2023-11-16 12:41] LABS: ALB/GLOB Ratio 1.1 RATIO (0.9-2.4); AST(SGOT) 14 U/L (15-37); Alanine Aminotransfer ALT/SGPT 23 U/L (13-56); Albumin, Serum 3.8 g/dL (3.2-5.0); Alkaline Phosphatase 55 U/L (45-117); Anion Gap 4 (5-15); BUN 12 mg/dL (7-18); BUN/Creat Ratio 19.4 RATIO (10-20); Chloride 106 mmol/L (98-107); Cholesterol 175 mg/dL (200); Creatinine, Serum 0.62 mg/dL (0.55-1.02); EST Glomerular Filtration Rate 118 mL/min (>60); Est Glom Filt Rate - Afr Amer 143 mL/min (>60); Ferritin 8 ng/mL (8-252); Globulin 3.5 g/dL (2.2-4.2); Glucose 90 mg/dL (74-106); High Density Lipoprotein 69 mg/dL; Iron 58 ug/dL (50-170); Potassium 4.5 mmol/L (3.5-5.1); Protein, Total 7.3 g/dL (6.4-8.2); Sodium Level 138 mmol/L (136-145); T4 Free Direct 0.91 ng/dL (0.76-1.46); Thyroid Stim Hormone (TSH) 1.01 uIU/mL (0.358-3.74); Triglycerides 49 mg/dL; Very Low Density Lipoprotein 10 mg/dL (5-40)
== END | disposition home or self-care (01) ==
LOC: BIMLAB 09:01
PROVIDERS: PCP Nurse Practitioner; Referring Provider Nurse Practitioner; Visit Provider Nurse Practitioner
DX: E88.810 Metabolic syndrome (principal); E66.9 Obesity, unspecified; L65.9 Nonscarring hair loss, unspecified; G47.10 Hypersomnia, unspecified; Z86.32 Personal history of gestational diabetes; R53.83 Other fatigue; F32.A Depression, unspecified
CPT/HCPCS: 36415; 80053; 80061; 82728; 83036; 83540; 84439; 84443; 85025

== ENCOUNTER 2023-11-28 19:43 | Emergency (ER) | payer MEDICARE, SELFPAY ==
[2023-11-28 19:44] VITALS: BP 127/74; PULSE 87; RESP 18; TEMP 36.6; O2SAT 98; BMI 27.3
[2023-11-28 20:08] LABS: Mucous, Urine 0 SEEN /hpf (<or=2+); Red Blood Cells-Urine 0 SEEN /hpf (0-5)
[2023-11-28 20:17] LABS: Color, Urine Yellow (Yellow); Glucose, Dipstick Normal (Normal); Ketone-Dipstick Negative (Negative); Leukocyte Esterase-Dipstick Negative /ul (Negative); Nitrite-Dipstick Negative (Negative); Occult Blood-Urine Negative /ul (Negative); Protein-Dipstick Negative (Negative); Specific Gravity, Urine 1.015 (1.002-1.030); Urine Bilirubin Dipstick Negative (Negative); Urine Clarity Clear (Clear); Urine Urobilinogen Normal (Normal)
--- NOTE | 2023-11-28 20:18 | EDS_ITS ---
HPI HPI - Female History of Present Illness Chief Complaint: Flank Pain PFSH PFS Medical History Maxillary sinusitis Effusion, left knee Diabetes PTSD (post-traumatic stress disorder) Low iron Back pain Migraine headache History of IBS Sleep apnea Asthma Shortness of breath on exertion Leg cramps Hypertension Adopted ASCUS with positive high risk HPV Pelvic pain Hypersomnia Rectal bleeding Anxiety and depression Spontaneous HPV test positive Acute appendicitis GERD (gastroesophageal reflux disease) Irregular periods Obesity Scoliosis IBS (irritable bowel syndrome) Chronic back pain Preeclampsia Home Medications ?Medication ?Instructions ?Recorded ?Last Taken ?Type multivitamin 1 tab PO DAILY 12/20/22 Unknown History semaglutide 0.25 mg or 0.5 mg (2 mg subcut 12/20/22 Unknown History mg/3 mL) subcutaneous pen injector (Ozempic) biotin 1 mg capsule 1 mg PO DAILY 10/26/23 Unknown History cranberry 500 mg capsule 500 mg PO DAILY 10/26/23 Unknown History desvenlafaxine succinate 25 mg 25 mg PO DAILY #30 tabs 11/11/23 Unknown Rx tablet,extended release 24 hr (Pristiq) lactobacillus combination no.4 3 3,000 mmu cells PO DAILY 11/11/23 Unknown History billion cell capsule (Probiotic) ondansetron 4 mg disintegrating 4 mg PO Q6H PRN nausea and 11/15/23 Unknown Rx tablet vomiting #30 tabs Allergy/AdvReac Type Severity Reaction Status Date / Time amoxicillin (From Augmentin) AdvReac Mild Vomiting Verified 11/28/23 19:46 clavulanic acid (From AdvReac Mild Vomiting Verified 11/28/23 19:46 Augmentin) naproxen AdvReac Other Verified 11/28/23 19:46 varenicline tartrate (From AdvReac Other Verified 11/28/23 19:46 Chantix) Family History Mother Depression Aunt Breast cancer Multiple sclerosis Grandmother Diabetes Uncle Hyperlipemia Menieres disease Depression Grandfather Heart disease Myocardial infarction CVA (cerebral vascular accident) Sister Crohn's disease half sister Other Hypertension Surgical History Status post tubal ligation Status post bilateral salpingectomy History of History of hip surgery H/O adenoidectomy delivery delivered S/P laparoscopic appendectomy (~05/06/18) S/P right knee arthroscopy History of tonsillectomy H/O knee surgery Hx of breast reduction, elective Social History (Updated 11/11/23 @ 13:26 by Sola Estrada MA) household members: family and children housing: house current occupational status: unemployed Smoking Status: Former smoker how long ago did patient quit smokin alcohol intake: current alcohol intake frequency: holidays/special occasions only substance use type: does not use caffeine: No what type of physical activity do you participate in: none seatbelt use: always do you feel safe at home: Yes additional social history: Single EXAM Physical Exam Const Vital Signs: 11/28/23 19:44 11/28/23 21:43 Temperature 97.9 F Temperature Source Temporal Pulse Rate 87 81 Respiratory Rate 18 16 Blood Pressure 127/74 H 133/81 H Blood Pressure Mean 91 98 Pulse Ox 98 98 Oxygen Delivery Method Room Air Room Air MDM MDM MDM Narrative Medical decision making narrative: HISTORY OF PRESENT ILLNESS: 33-year-old female complains of left flank pain for last 4 days. No she is also constipated. Last bowel was yesterday. No melena hematochezia. No vaginal bleeding or discharge. No frequency urgency or dysuria. Notes history of appendectomy. Denies falls or trauma. REVIEW OF SYSTEMS: Pertinent positives: Left leg pain, constipation Pertinent negatives: Chest pain, shortness of breath, syncope, vaginal symptoms, urinary symptoms PHYSICAL EXAM: Nursing triage notes reviewed, Vital signs reviewed Constitutional: please see mdm HENT: MMM Eyes: Pupils equal round and reactive to light, Extraocular muscles intact Neck: No stridor, no JVD, full neck ROM Lungs: Clear to auscultation, No wheezing or rales. No increased work of breathing, no conversational dyspnea, no accessory muscle use, no nasal flaring. No respiratory distress noted Heart: Regular rate and rhythm, No murmurs, No rubs and No gallops, 2+ distal pulses (radial, femoral, posterior tibial) in all extremities Abdomen: Soft, left mid abdominal tenderness but no rigidity, rebound or guarding, no obvious peritoneal signs, no palpable pulsatile abdominal masses, no auscultated abdominal bruit : No CVAT Extremities: No edema Neuro: No focal neurological deficits, cranial nerves II through XII intact, 5/5 strength in all extremities. Intact sensation to light touch in all extremities, 2+ reflexes bilateral patella tendons. Normal gait. No ataxia. Skin: No rash or lesions noted MEDICAL DECISION MAKING: Chief Complaint: Flank pain External records reviewed: Imaging reviewed: CT scan abdomen pelvis from 2022 shows no acute intra-abdominal process, noted bilateral nonobstructing renal calculi that are up to 5 mm in the right Factors affecting care: Anxiety, asthma Social determinants of health: Patient denies illicit drug use. Status post appendectomy History obtained from others: Patient's mother Consults: none MDM Narrative: Patient was initially hemodynamically stable, afebrile and nontoxic-appearing. Exam with left mid abdominal TTP. No right upper quadrant TTP. No jaundice. I treat the patient 1 L IV fluid, 4 mg IV Zofran and 650 mg of p.o. Tylenol. Of note patient refused Tylenol. I considered the following differential diagnosis: Pyelonephritis, UTI, nephrolithiasis, AAA ALL IMAGES (IF OBTAINED) HAVE BEEN PERSONALLY REVIEWED AND INTERPRETED BY MYSELF. Urinalysis shows no evidence of urinary inflammation suggestive of UTI CBC without leukocytosis, severe anemia, no thrombocytopenia. BMP without evidence of significant electrolyte abnormalities, no anion gap, no acute kidney injury. Urine test negative LFTs show no evidence of hepatobiliary pathology. CT scan abdomen pelvis shows evidence of constipation The synthesis of the patient's history, physical exam, labs images suggest likely constipation as an etiology will prescribe bowel regiment strict return precautions. Also prescribe Zofran for nausea The patient and/or family, caregivers express understanding. The patient and/or family, caregivers agrees with the plan. Shared decision making: I will have a discussion with the patient and or visitors regarding risk/benefits of further testing or admission. They will be made aware of of the risk/benefits inherent in this decision they will be given the opportunity to voice understanding. Total critical care time today provided was at least 0 [] minutes. This excludes separately billable procedures. Critical care time (if documented) is secondary to the patient having high probability of clinically significant/life threatening deterioration in the patient's condition which required my urgent intervention. Impression: 1. Left-sided flank pain 2. Constipation Dispo: Discharge home This note was generated with Dragon dictation software. It may contain incorrect words, spelling, and punctuation that were not noted in review of the chart prior to signing. Lab Data Labs: Laboratory Results - last 24 hr 11/28/23 19:56 WBC 6.3 RBC 4.05 L Hgb 12.1 Hct 34.5 L MCV 85.2 MCH 29.9 MCHC 35.1 RDW Std Deviation 38.0 RDW Coeff of Ever 12.3 Plt Count 345 MPV 9.7 Immature Gran % (Auto) 0.200 Neut % (Auto) 30.2 L Lymph % (Auto) 60.0 H [place] % (Auto) 8.2 Eos % (Auto) 0.6 Baso % (Auto) 0.8 Absolute Neuts (auto) 1.9 L Absolute Lymphs (auto) 3.79 Nucleated RBC % 0 Sodium 139 Potassium 3.6 Chloride 106 Carbon Dioxide 26.0 Anion Gap 7 BUN 12 Creatinine 0.69 Estim Creat Clear Calc 100.52 Est GFR (MDRD) Af Amer 126 Est GFR (MDRD) Non-Af 104 BUN/Creatinine Ratio 17.4 Glucose 92 Calcium 9.2 Total Bilirubin 0.40 Direct Bilirubin 0.13 AST 14 L ALT 23 Alkaline Phosphatase 53 Total Protein 7.7 Albumin 4.2 Globulin 3.5 Lipase 54 Serum , Qual NEGATIVE Urine Color Yellow Urine Clarity Clear Urine pH 6.0 Ur Specific [place] 1.015 Urine Protein Negative Urine Glucose (UA) Normal Urine Ketones Negative Urine Occult Blood Negative Urine Nitrite Negative Urine Bilirubin Negative Urine Urobilinogen Normal Ur Leukocyte Esterase Negative Urine RBC 0 SEEN Urine WBC 0 SEEN Ur Squamous Epith Cells 5-10 SEEN Urine Bacteria RARE Urine Mucus 0 SEEN Radiography Diagnostic Testing: Clinical Impression(s) from Imaging Studies Abdomen/Pelvis CT 11/28/23 20:19 IMPRESSION: Bilateral punctate nonobstructing nephroliths. Increased stool in the colon. Electronically Signed: Fabrizio Lazaro MD at 21:27 EDT , Discharge Plan Triage Chief Complaint: Flank Pain ED Provider: Christiano Gray Dx/Rx/DC Orders Prescriptions: No Action multivitamin Tablet 1 tab PO DAILY Ozempic 0.25 mg or 0.5 mg (2 mg/3 mL) pen injector subcut Patient Comments: INJECT 0.5MG SUBCUTANEOUSLY EVERY WEEK cranberry 500 mg capsule 500 mg PO DAILY Rx Instructions: administer with meals biotin 1 mg capsule 1 mg PO DAILY Probiotic 3 billion cell capsule 3,000 mmu cells PO DAILY Patient Comments: floragin Rx Instructions: administer with a meal desvenlafaxine succinate [Pristiq] 25 mg tablet extended release 24 hr 25 mg PO DAILY Qty: 30 0RF ondansetron 4 mg tablet,disintegrating 4 mg PO Q6H PRN (Reason: nausea and vomiting) Qty: 30 0RF Primary Care Provider: Bibi Bassett Referrals: Bibi Bassett, [employer] [Primary Care Provider] - Print Language: Scottish
--- NOTE | 2023-11-28 20:19 | CT_ITS ---
STUDY: CT ABDOMEN AND PELVIS WITHOUT CONTRAST REASON FOR EXAM: Female, 33 years old. left flank pain r/o nephrolithiasis RADIATION DOSAGE (If Supplied By Facility): CTDIvol = ( 6.53 ) mGy, DLP = ( 377.81 ) mGycm TECHNIQUE: Transaxial images were obtained from the dome of the diaphragm to the symphysis pubis without oral contrast, and without intravenous contrast. Sagittal and coronal images were reconstructed. Individualized dose optimization techniques were used for this CT. The protocol utilizes one or more of the following dose reduction techniques: automated exposure control, adjustment of mA and/or kV according to patient size,and/or use of iterative reconstruction technique. COMPARISON: CT abdomen and pelvis January 12, 2023 FINDINGS: The visualized lung bases are unremarkable. The visualized portions of the heart are within normal limits. Normal liver. Normal gallbladder and extrahepatic biliary system. Normal spleen. Normal pancreas. Normal bilateral adrenal glands. Punctate bilateral nonobstructing nephroliths. Normal visualized stomach. Normal small intestine. Increased stool in the colon. Appendix appears to be surgically absent. Normal abdominal aorta. Normal inferior vena cava. Normal retroperitoneum. Normal urinary bladder. Uterus normal. Normal abdominal wall. Mild levoconvex scoliosis. CT/Abdomen/Pelvis without Cont IMPRESSION: Bilateral punctate nonobstructing nephroliths. Increased stool in the colon. Electronically Signed: Fabrizio Lazaro MD at 21:27 EDT ,
[2023-11-28 20:25] LABS: Internal QC Validated? YES +Cl - CLEAR BKGD; Pregnancy, Serum, hCG Quali. NEGATIVE Negative
[2023-11-28 20:28] LABS: Bacteria RARE /hpf (None Seen); Squamous Epithelial Cells - UA 5-10 SEEN /hpf (5-10); White Blood Cells 0 SEEN /hpf (0-5)
[2023-11-28 20:29] LABS: Anion Gap 7 (5-15); BUN 12 mg/dL (7-18); BUN/Creat Ratio 17.4 RATIO (10-20); Calcium,Total 9.2 mg/dL (8.5-10.1); Chloride 106 mmol/L (98-107); Creatinine, Serum 0.69 mg/dL (0.55-1.02); EST Glomerular Filtration Rate 104 mL/min (>60); Est Glom Filt Rate - Afr Amer 126 mL/min (>60); Estimated Creatinine Clearance 100.52 ml/min; Glucose 92 mg/dL (74-106); Potassium 3.6 mmol/L (3.5-5.1); Sodium Level 139 mmol/L (136-145)
[2023-11-28] MEDS: 0.9% Normal Saline (1000mL) 1,000 ML 999 ML IV (20:39)
[2023-11-28] MEDS: Ondansetron 4 MG/2 ML Vial IV (20:40)
[2023-11-28 21:17] LABS: Absolute Lymphocyte Count 3.79 X10^3/uL (0.83-4.51); Absolute Neutrophil Count 1.9 X10^3/uL (2.0-7.7); Basophil# 0.05 X10^3/uL; Basophil% 0.8 % (0-1); Eosinophil# 0.04 X10^3/uL; Eosinophils% 0.6 % (0-5); Hematocrit 34.5 % (37-47); Hemoglobin 12.1 g/dL (12.0-15.0); Lymphocyte # 3.79 X10^3/ul (0.83-4.51); Mean Corp Hgb Conc 35.1 g/dL (32-36); Mean Corpuscular Hgb 29.9 pg (27.0-32.0); Mean Corpuscular Volume 85.2 fL (81-99); Mean Platelet Vol. 9.7 fl (6.2-12.0); Monocyte# 0.52 X10^3/uL; Monocyte% 8.2 % (0-10); NRBC Flagged by Analyzer 0 % (0-5); Neutrophil # 1.91 X10^3/uL (2.7-7.7); Neutrophil % 30.2 % (47-70); Platelet Count 345 K/mm3 (150-450); RBC Distribution Width CV 12.3 % (11.6-14.6); Red Blood Count 4.05 M/mm3 (4.2-5.4); White Blood Count 6.3 K/mm3 (4.4-11.0)
[2023-11-28 21:29] LABS: AST(SGOT) 14 U/L (15-37); Alanine Aminotransfer ALT/SGPT 23 U/L (13-56); Albumin, Serum 4.2 g/dL (3.2-5.0); Alkaline Phosphatase 53 U/L (45-117); Bilirubin, Direct 0.13 mg/dL (0.00-0.30); Globulin 3.5 g/dL (2.2-4.2); Lipase 54 U/L (13-75); Protein, Total 7.7 g/dL (6.4-8.2)
[2023-11-28 21:43] VITALS: BP 133/81; PULSE 81; RESP 16; O2SAT 98
[2023-11-28] MEDS: Acetaminophen 325 MG Tablet 650 MG PO (21:50)
== END 2023-11-28 22:48 | disposition home or self-care (01) ==
PROVIDERS: Emergency Provider Emergency Medicine; PCP Nurse Practitioner; Visit Provider Emergency Medicine
DX: K59.00 Constipation, unspecified (principal); E11.9 Type 2 diabetes mellitus without complications; R10.9 Unspecified abdominal pain; Z87.891 Personal history of nicotine dependence; I10 Essential (primary) hypertension; Z79.85 Long-term (current) use of injectable non-insulin antidiabetic drugs; Z98.51 Tubal ligation status; Z90.49 Acquired absence of other specified parts of digestive tract
CPT/HCPCS: 74176; 80048; 80076; 81001; 83690; 84703; 85025; 96361; 96374; 99283; J7030; J2405

== ENCOUNTER → 2023-12-01 | Outpatient (CLI) | payer MEDICARE, SELFPAY ==
--- NOTE | 2023-12-01 12:15 | RAD_ITS ---
STUDY: X-RAY CHEST REASON FOR EXAM: Female, 33 years old. POSITIVE TB TEST TECHNIQUE: PA and lateral views of the chest. COMPARISON: 11/15/2021 FINDINGS: The lungs are clear and expanded. There is no demonstrated pleural abnormality. Normal size heart. Normal mediastinum and vamsi. Normal visualized pulmonary arteries. Normal visualized aortic arch and descending thoracic aorta. Normal visualized thoracic spine. Normal visualized ribs, clavicles, and shoulders. There is no demonstrated abnormality of the visualized soft tissue structures of the upper abdomen. RAD/Chest PA and Lateral IMPRESSION: Normal x-ray examination of the chest. Electronically Signed: Teddy Boston MD at 18:07 EDT ,
[2023-12-06 14:10] LABS: QNTFERON TB Mitogen Value > 10.00 IU/mL (.); QNTFERON TB Nil Value 0.05 IU/mL (.); QNTFERON TB1+ Ag Value 0.72 IU/mL (.); QNTFERON TB2+ Ag Value 1.41 IU/mL (.); QNTIFERON TB Positive Criteria Positive (Negative)
== END | disposition home or self-care (01) ==
PROVIDERS: PCP Nurse Practitioner; Referring Provider Nurse Practitioner; Visit Provider Nurse Practitioner
DX: R76.11 Nonspecific reaction to tuberculin skin test without active tuberculosis (principal)
CPT/HCPCS: 36415; 71046; 86480

== ENCOUNTER → 2024-01-13 | Outpatient (CLI) | payer MEDICARE, MEDICAID, SELFPAY ==
[2024-01-13 15:56] LABS: Anion Gap 6 (5-15); BUN 13 mg/dL (7-18); BUN/Creat Ratio 20.3 RATIO (10-20); Calcium,Total 9.3 mg/dL (8.5-10.1); Chloride 104 mmol/L (98-107); Creatinine, Serum 0.64 mg/dL (0.55-1.02); EST Glomerular Filtration Rate 113 mL/min (>60); Est Glom Filt Rate - Afr Amer 137 mL/min (>60); Ferritin 10 ng/mL (8-252); Glucose 91 mg/dL (74-106); Iron 84 ug/dL (50-170); Iron Binding Capacity,Total 320 ug/dL (250-450); Potassium 3.9 mmol/L (3.5-5.1); Sodium Level 140 mmol/L (136-145)
[2024-01-13 15:57] LABS: HIV - WCH Non-Reactive (Nonreactive); Hepatitis B Surface Antigen Non-Reactive (Nonreactive); Hepatitis C Antibody Non-Reactive (Nonreactive); Syphilis Antibodies Non-reactive
[2024-01-15 08:08] LABS: HSV 2 IgG 2.32 index (0.00-0.90)
== END | disposition home or self-care (01) ==
PROVIDERS: Nurse Practitioner Family; PCP Nurse Practitioner; Referring Provider Nurse Practitioner; Visit Provider Nurse Practitioner
DX: Z11.3 Encounter for screening for infections with a predominantly sexual mode of transmission (principal); Z20.2 Contact with and (suspected) exposure to infections with a predominantly sexual mode of transmission; N92.6 Irregular menstruation, unspecified; G47.10 Hypersomnia, unspecified; R25.2 Cramp and spasm
CPT/HCPCS: 36415; 80048; 82728; 83540; 83550; 86695; 86696; 86703; 86780; 86803; 87340

== ENCOUNTER → 2024-01-31 | Outpatient (CLI) | payer MEDICARE, MEDICAID, SELFPAY ==
--- NOTE | 2024-01-31 14:30 | RAD_ITS ---
STUDY: X-RAY CHEST REASON FOR EXAM: Female, 33 years old. cough TECHNIQUE: PA and lateral views of the chest. COMPARISON: June 02, 2023 FINDINGS: The lungs are clear and expanded. There is no demonstrated pleural abnormality. Normal size heart. Normal mediastinum and vamsi. Normal visualized pulmonary arteries. Normal visualized aortic arch and descending thoracic aorta. Normal visualized thoracic spine. Normal visualized ribs, clavicles, and shoulders. There is no demonstrated abnormality of the visualized soft tissue structures of the upper abdomen. RAD/Chest PA and Lateral IMPRESSION: Normal x-ray examination of the chest. Electronically Signed: Ford Sellers MD at 15:31 EDT ,
== END | disposition home or self-care (01) ==
LOC: MTRAD 14:30
PROVIDERS: PCP Nurse Practitioner; Referring Provider Physician Assistant; Visit Provider Physician Assistant
DX: R05.9 Cough, unspecified (principal)
CPT/HCPCS: 71046

== ENCOUNTER → 2024-02-01 | Outpatient (CLI) | payer MEDICARE, MEDICAID, SELFPAY ==
[2024-02-01 15:51] LABS: AST(SGOT) 12 U/L (15-37); Alanine Aminotransfer ALT/SGPT 24 U/L (13-56); Albumin, Serum 3.7 g/dL (3.2-5.0); Alkaline Phosphatase 58 U/L (45-117); Anion Gap 4 (5-15); BUN 10 mg/dL (7-18); BUN/Creat Ratio 13.5 RATIO (10-20); Calcium,Total 9.1 mg/dL (8.5-10.1); Chloride 104 mmol/L (98-107); Creatinine, Serum 0.74 mg/dL (0.55-1.02); EST Glomerular Filtration Rate 96 mL/min (>60); Est Glom Filt Rate - Afr Amer 116 mL/min (>60); Globulin 3.4 g/dL (2.2-4.2); Glucose 107 mg/dL (74-106); Lipase 53 U/L (13-75); Potassium 4.6 mmol/L (3.5-5.1); Protein, Total 7.1 g/dL (6.4-8.2); Sodium Level 139 mmol/L (136-145)
== END | disposition home or self-care (01) ==
PROVIDERS: PCP Nurse Practitioner; Referring Provider Internal Medicine Infectious Disease; Visit Provider Internal Medicine Infectious Disease
DX: R11.0 Nausea (principal)
CPT/HCPCS: 36415; 80048; 80076; 83690

== ENCOUNTER 2024-03-09 11:40 | Outpatient (CLI) | payer MEDICARE, MEDICAID, SELFPAY ==
[2024-03-09 12:21] LABS: Absolute Lymphocyte Count 1.94 X10^3/uL (0.83-4.51); Basophil# 0.03 X10^3/uL; Basophil% 0.9 % (0-1); Eosinophil# 0.02 X10^3/uL; Eosinophils% 0.6 % (0-5); Hematocrit 34.4 % (37-47); Hemoglobin 11.8 g/dL (12.0-15.0); Lymphocyte # 1.94 X10^3/ul (0.83-4.51); Lymphocyte % 59.3 % (19-41); Mean Corp Hgb Conc 34.3 g/dL (32-36); Mean Corpuscular Hgb 30.2 pg (27.0-32.0); Mean Platelet Vol. 8.8 fl (6.2-12.0); Monocyte# 0.24 X10^3/uL; Monocyte% 7.3 % (0-10); NRBC Flagged by Analyzer 0 % (0-5); Neutrophil # 1.04 X10^3/uL (2.7-7.7); Neutrophil % 31.9 % (47-70); Platelet Count 316 K/mm3 (150-450); RBC Distribution Width CV 12.4 % (11.6-14.6); RBC Distribution Width SD 39.8 fl (35.1-43.9); Red Blood Count 3.91 M/mm3 (4.2-5.4); White Blood Count 3.3 K/mm3 (4.4-11.0)
[2024-03-09 12:24] LABS: Erythrocyte Sedimentation Rate 3 mm/hr (0-30)
[2024-03-09 13:03] LABS: ALB/GLOB Ratio 1.1 RATIO (0.9-2.4); AST(SGOT) 14 U/L (15-37); Alanine Aminotransfer ALT/SGPT 27 U/L (13-56); Alkaline Phosphatase 53 U/L (45-117); Anion Gap 4 (5-15); BUN 10 mg/dL (7-18); BUN/Creat Ratio 16.2 RATIO (10-20); CRP < 2.90 mg/L (0.0-3.0); Chloride 106 mmol/L (98-107); Creatinine, Serum 0.62 mg/dL (0.55-1.02); EST Glomerular Filtration Rate 118 mL/min (>60); Est Glom Filt Rate - Afr Amer 143 mL/min (>60); Free T3 2.4 pg/mL (2.18-3.98); Globulin 3.5 g/dL (2.2-4.2); Glucose 85 mg/dL (74-106); LDH 162 U/L (84-246); Potassium 3.8 mmol/L (3.5-5.1); Protein, Total 7.5 g/dL (6.4-8.2); Sodium Level 138 mmol/L (136-145); Thyroid Stim Hormone (TSH) 0.434 uIU/mL (0.358-3.740)
[2024-03-14 07:08] LABS: Anti-Centromere B Ab <0.2 AI (0.0-0.9); Anti-Chromatin <0.2 AI (0.0-0.9); Anti-Jo <0.2 AI (0.0-0.9); Anti-Scleroderma-70 AB <0.2 AI (0.0-0.9); Anti-dsDNA Ab 1 IU/mL (0-9); Beef <0.10 kU/L (Class 0); Chocolate <0.10 kU/L (Class 0); Codfish <0.10 kU/L (Class 0); Corn <0.10 kU/L (Class 0); Egg, Whole <0.10 kU/L (Class 0); Milk (Cow) <0.10 kU/L (Class 0); Mussels <0.10 kU/L (Class 0); Peanut <0.10 kU/L (Class 0); Pork <0.10 kU/L (Class 0); RNP Ab 0.3 AI (0.0-0.9); SJOGREN'S Anti-SS-A test < 0.2 AI (0.0-0.9); SJOGREN'S Anti-SS-B test < 0.2 AI (0.0-0.9); Salmon <0.10 kU/L (Class 0); Shrimp <0.10 kU/L (Class 0); Smith Ab <0.2 AI (0.0-0.9); Soybean <0.10 kU/L (Class 0); Tuna <0.10 kU/L (Class 0); Wheat <0.10 kU/L (Class 0)
[2024-03-14 16:10] LABS: ACCA 14 units (0-90); ALCA 75 units (0-60); AMCA 31 units (0-100); Albumin 4.1 g/dL (2.9-4.4); Alpha-1-Globulins 0.3 g/dL (0.0-0.4); Alpha-2-Globulins 0.6 g/dL (0.4-1.0); Cytoplasmic Ab (C-ANCA) <1:20 titer (Neg:<1:20); Endomysial Antibody IgA Negative (Negative); Gamma Globulin 1.1 g/dL (0.4-1.8); Immunoglobulin A 187 mg/dL (87-352); Immunoglobulin E < 2 IU/mL (6-495); Immunoglobulin G 1017 mg/dL (586-1602); Immunoglobulin M 145 mg/dL (26-217); PROEL- TOTAL PROTEIN 7.1 g/dL (6.0-8.5); Perinuclear Ab (P-ANCA) <1:20 titer (Neg:<1:20); gASCA 21 units (0-50); t-Transglutaminase IgA <2 U/mL (0-3)
== END 2024-03-09 23:59 | disposition home or self-care (01) ==
LOC: LAB 11:43
PROVIDERS: PCP Nurse Practitioner
DX: K58.9 Irritable bowel syndrome, unspecified (principal); R53.83 Other fatigue
CPT/HCPCS: 36415; 80053; 82784; 82785; 83516; 83615; 84165; 84443; 84481; 85025; 85652; 86003; 86005; 86036; 86037; 86140; 86225; 86235; 86255; 86334; 86671; 87177; 87209

== ENCOUNTER → 2024-03-14 | Outpatient (CLI) | payer MEDICARE, MEDICAID, SELFPAY ==
[2024-03-16 06:09] LABS: Calprotectin, Stool 39 ug/g (0-120)
[2024-03-17 01:07] LABS: Pancreatic Elastase, Fecal > 800 (>200)
== END | disposition home or self-care (01) ==
PROVIDERS: PCP Nurse Practitioner
DX: K58.9 Irritable bowel syndrome, unspecified (principal)
CPT/HCPCS: 82653; 83630; 83993; 87177; 87209; 87329

== ENCOUNTER 2024-03-16 11:36 | Emergency (ER) | payer MEDICARE, MEDICAID, SELFPAY ==
[2024-03-16 11:37] VITALS: BP 115/71; PULSE 90; RESP 16; TEMP 37; O2SAT 98; BMI 26.4
--- NOTE | 2024-03-16 12:26 | ED.VIS.GI ---
HPI HPI - GI History of Present Illness Chief Complaint: Abd Pain Informant: patient Abdominal Pain/Flank Pain Onset: Month(s) Context: Gradual Onset Timing: Continuous Quality: Aching and Cramping Location: Diffuse Current Severity: Mild Maximum Severity: Moderate Worsened by: Nothing Relieved by: Nothing Nausea/Vomiting/Emesis GI Symptom: Positive for Nausea Severity: Mild Diarrhea/Melena/Hematochezia GI Symptom: Negative for Diarrhea, Melena or Hematochezia Associated Symptoms Associated Symptoms: Negative for Dysuria, Frequency, Hematuria or Urgency Narrative Narrative: 33-year-old female history of irritable bowel, PTSD, tubal ligation, prior appendectomy, prior C-sections. Several weeks to months if not longer history of diffuse abdominal pain. She has had workup with labs not really given a specific diagnosis. She is seen at the [facility] nurse practitioner and has an upcoming scheduled endoscopy but that is not till I believe April. Complaining of primarily upper abdominal pain. Said has been constant. She has had pain for 2 months. Associated nausea. No vomiting or diarrhea no constipation or dysuria. No fever. She is currently on Ozempic and has been for 5 or 6 months with about a 72 pound weight loss. She does not believe that is associated with the problem. Said when she was taken at the first few months she had no pain or issues. She has had recent CAT scans of her abdomen and they were unremarkable. Prior similar symptoms: Yes Recent Illness/Hospitalization: No PFSH [facility] Medical History IBS (irritable bowel syndrome) Maxillary sinusitis Effusion, left knee Diabetes PTSD (post-traumatic stress disorder) Low iron Back pain Migraine headache History of IBS Sleep apnea Asthma Shortness of breath on exertion Leg cramps Hypertension Adopted ASCUS with positive high risk HPV Pelvic pain Hypersomnia Rectal bleeding Anxiety and depression Spontaneous HPV test positive Acute appendicitis GERD (gastroesophageal reflux disease) Irregular periods Obesity Scoliosis Chronic back pain Preeclampsia Home Medications ?Medication ?Instructions ?Recorded ?Last Taken ?Type multivitamin 1 tab PO DAILY 12/20/22 Unknown History semaglutide 0.25 mg or 0.5 mg (2 mg subcut 12/20/22 Unknown History mg/3 mL) subcutaneous pen injector (Ozempic) biotin 1 mg capsule 1 mg PO DAILY 10/26/23 Unknown History cyclobenzaprine 7.5 mg tablet 7.5 mg PO QHS PRN muscle spasm #20 01/13/24 Unknown Rx tabs isoniazid 100 mg tablet 300 mg PO DAILY 01/13/24 Unknown History pyridoxine (vitamin B6) 100 mg 100 mg PO DAILY 01/13/24 Unknown History tablet desvenlafaxine succinate 50 mg 50 mg PO DAILY #90 tabs 03/01/24 Unknown Rx tablet,extended release 24 hr ondansetron 4 mg disintegrating 4 mg PO Q6H PRN nausea and 03/05/24 Unknown Rx tablet vomiting #30 tabs famotidine 40 mg tablet 40 mg PO QHS #30 tabs 03/09/24 Unknown Rx pantoprazole 40 mg tablet,delayed 40 mg PO BID #60 tabs 03/09/24 Unknown Rx release sucralfate 1 gram tablet 1 g PO QAC #90 tabs 03/09/24 Unknown Rx Allergy/AdvReac Type Severity Reaction Status Date / Time amoxicillin (From Augmentin) AdvReac Mild Vomiting Verified 03/16/24 11:37 clavulanic acid (From AdvReac Mild Vomiting Verified 03/16/24 11:37 Augmentin) naproxen AdvReac Other Verified 03/16/24 11:37 varenicline tartrate (From AdvReac Other Verified 03/16/24 11:37 Chantix) Family History Mother Depression Aunt Breast cancer Multiple sclerosis Grandmother Diabetes Uncle Hyperlipemia Menieres disease Depression Grandfather Heart disease Myocardial infarction CVA (cerebral vascular accident) Sister Crohn's disease half sister Other Hypertension Surgical History Status post tubal ligation Status post bilateral salpingectomy History of History of hip surgery H/O adenoidectomy delivery delivered S/P laparoscopic appendectomy (~05/06/18) S/P right knee arthroscopy History of tonsillectomy H/O knee surgery Hx of breast reduction, elective Social History household members: family and children housing: house current occupational status: unemployed Smoking Status: Current every day smoker tobacco type: cigarettes how long ago did patient quit smokin alcohol intake: current alcohol intake frequency: holidays/special occasions only substance use type: does not use caffeine: No what type of physical activity do you participate in: none seatbelt use: always do you feel safe at home: Yes additional social history: Single ROS ROS ED ROS Narrative Abdominal pain. Nausea. Constitutional Constitutional ED: Denies chills or fever(s) ENT ENT ED: Denies ear pain Cardiovascular Cardiovascular: Denies chest pain Respiratory/Chest Respiratory/Chest: Denies cough or dyspnea Gastrointestinal Gastrointestinal: Reports abdominal pain and nausea; Denies constipation, diarrhea, melena or vomiting Genitourinary Genitourinary ED: Denies dysuria, hematuria or urinary frequency Musculoskeletal Musculoskeletal: Denies arthralgias or back pain Integumentary Denies abscess Neurologic Neurologic: Denies headache(s) Psychiatric Psychiatric: Denies anxiety Endocrine Endocrinology: Denies polydipsia Hematologic/Lymphatic Hematologic/Lymphatic: Denies easy bleeding Allergic/Immunologic Allergic/Immunologic ED: Denies mouth swelling, tongue swelling or urticaria EXAM Physical Exam Narrative Exam Narrative: 33-year-old female vital signs stable afebrile. H EENT exam unremarkable. Neck nontender. Lungs clear to auscultation bilaterally. Heart regular rate and rhythm rate about 90 no murmur. Chest wall and ribs nontender. Abdomen soft nondistended normal bowel sounds no peritoneal signs. She complains of upper abdominal tenderness. Not specifically Rausch sign. Some both the left and right upper quadrant epigastric. There is no hernia or mass. No distention or obstruction. Lower abdomen right lower quadrant suprapubic left lower completely nontender. No hernia or mass. No bruising. Back nontender. Moving all 4 extremities. Nontender no edema. Normal sensation. Normal strength. Normal range of motion. She is awake and alert. Patient is emotionally upset and anxious. No one else present in the room with her. Const Vital Signs: 03/16/24 11:37 03/16/24 13:36 Temperature 98.6 F Temperature Source Oral Pulse Rate 90 78 Respiratory Rate 16 16 Blood Pressure 115/71 122/83 H Blood Pressure Mean 85 96 Pulse Ox 98 98 Oxygen Delivery Method Room Air Room Air Positive well nourished and well developed; Negative for obese, cachectic, contractures or unkempt General Appearance ED: well developed and NAD; Negative for unkempt, cachectic, contractures or pallor Nutritional Appearance: Negative for cachectic or obese HEENT Reports moist mucous membranes normocephalic and atraumatic; Negative for trauma or tenderness Eyes PERRL and EOMs intact bilaterally General Eye ED: Negative for pale conjunctiva or scleral icterus Neck no lymphadenopathy, supple and no JVD General: Negative for tenderness Lymph Lymphatic: Negative for other Resp normal respiratory effort and clear to auscultation bilaterally Effort and Inspection: Negative for respiratory distress Auscultation: Negative for rales, rhonchi, wheezes or diminished lung sounds Cardio regular rate, regular rhythm, S1 normal heart sound, S2 normal heart sound and no murmurs Rate: Negative for bradycardia or tachycardic Rhythm: Negative for abnormal rhythm GI non-distended and no masses; Negative for non-tender GI Narrative: Tender bilateral upper quadrants and epigastric. No distention. No obstruction. No mass. Inspection: Negative for abdominal distention Auscultation: normoactive bowel sounds Palpation: soft and tender; Negative for guarding, rigid, hepatomegaly, splenomegaly, hernia, mass, pulsatile mass or rebound tenderness present Back/Spine no CVA tenderness General Back: Negative for CVA tenderness Cervical Spine: Negative for cervical spine tenderness Thoracic Spine / Upper Back: Negative for thoracic spinal tenderness Extremity full ROM General Extremety ED: Negative for edema General Extremity: Negative for edema Neuro moves all extremities Sensorium / Orientation: alert, oriented to person, oriented to place and oriented to time; Negative for orientation impaired, confused, lethargic or stuporous Motor Exam: strength 5/5 throughout Psych mental status grossly normal and thought process normal Appearance: Negative for unkempt Attitude: No agitated Mood & Affect: anxious; Negative for depressed or tearful Skin General Skin Exam: Negative for jaundice or pallor Lesions: no lesions Rashes: no rashes Trauma: Negative for abrasion Nails: Negative for discolored MDM MDM MDM Narrative Medical decision making narrative: 33-year-old female abdominal pain that she has had for months. Has had prior CT CAT scans which were unremarkable. Screening labs to be obtained. She was written for Toradol for pain and Zofran for nausea. Repeat exam patient is doing well at 3:20 PM. Abdomen is benign. I went over her test results with her. This is chronic abdominal pain that she is being worked up for. She is already seen GI office. She has a pending upcoming endoscopy but is not until I believe April. She can follow-up with them this coming week and see if she can be put on the wait list to possibly have it done sooner. She has had prior imaging I do not think she needs additional imaging today. Currently her abdomen is nontender. History & Record Review Discussion w/independent historian: Patient Additional record(s) reviewed:: Prior inpatient record, Prior outpatient record, Prior ED visit and Prior labs Lab Data Attestation: I reviewed the patient's lab results. Lab results narrative: CBC shows a white count of 5. H&H 11.7 and 33.6 which is her baseline anemia. Platelets 315. Electrolytes show gap 6. Normal BUN of 11 creatinine 0.5. Glucose 81. Liver enzymes are unremarkable. Lipase is normal at 51. Serum test is negative. Labs: Laboratory Results - last 24 hr 03/16/24 11:58 WBC 5.5 RBC 3.81 L Hgb 11.7 L Hct 33.6 L MCV 88.2 MCH 30.7 MCHC 34.8 RDW Std Deviation 40.6 RDW Coeff of Ever 12.5 Plt Count 315 MPV 9.5 Immature Gran % (Auto) 0.200 Neut % (Auto) 49.0 Lymph % (Auto) 40.8 [place] % (Auto) 8.2 Eos % (Auto) 1.3 Baso % (Auto) 0.5 Absolute Neuts (auto) 2.7 Absolute Lymphs (auto) 2.25 Nucleated RBC % 0 Sodium 142 Potassium 3.7 Chloride 107 Carbon Dioxide 29.0 Anion Gap 6 BUN 11 Creatinine 0.59 Estim Creat Clear Calc 115.79 Est GFR (MDRD) Af Amer 150 Est GFR (MDRD) Non-Af 124 BUN/Creatinine Ratio 18.6 Glucose 81 Calcium 8.9 Total Bilirubin 0.30 AST 12 L ALT 26 Alkaline Phosphatase 52 Total Protein 7.2 Albumin 3.9 Globulin 3.3 Albumin/Globulin Ratio 1.2 Lipase 51 Serum , Qual NEGATIVE Discharge Plan Triage Chief Complaint: Abd Pain ED Provider: Gonzalo Blanco Dx/Rx/DC Orders Clinical Impression: Abdominal pain, History of IBS, History of post traumatic stress disorder Instructions: Abdominal Pain Prescriptions: No Action multivitamin Tablet 1 tab PO DAILY Ozempic 0.25 mg or 0.5 mg (2 mg/3 mL) pen injector subcut Patient Comments: INJECT 0.5MG SUBCUTANEOUSLY EVERY WEEK biotin 1 mg capsule 1 mg PO DAILY isoniazid 100 mg tablet 300 mg PO DAILY pyridoxine (vitamin B6) 100 mg tablet 100 mg PO DAILY cyclobenzaprine 7.5 mg tablet 7.5 mg PO QHS PRN (Reason: muscle spasm) Qty: 20 0RF sucralfate 1 gram tablet 1 g PO QAC Qty: 90 2RF famotidine 40 mg tablet 40 mg PO QHS Qty: 30 2RF pantoprazole 40 mg tablet,delayed release (DR/EC) 40 mg PO BID Qty: 60 2RF desvenlafaxine succinate 50 mg tablet extended release 24 hr 50 mg PO DAILY Qty: 90 1RF ondansetron 4 mg tablet,disintegrating 4 mg PO Q6H PRN (Reason: nausea and vomiting) Qty: 30 2RF Primary Care Provider: Bibi Bassett Referrals: Bo Simms DO [Med Staff - Active Staff] - As soon as possible Bibi Bassett, [employer] [Primary Care Provider] - Activity Restrictions/Additional Instructions: Labs today were unremarkable. Call and follow-up with your GI doctors office to see if they can maybe get you in sooner for your endoscopy. Has to be put on their waiting list. Print Language: Japanese Disposition Disposition: Home, Self Care
[2024-03-16] MEDS: Ondansetron 4 MG/2 ML Vial IV (12:29)
[2024-03-16] MEDS: Ketorolac 30 MG/ML Syringe IV (12:29)
[2024-03-16 12:39] LABS: Absolute Lymphocyte Count 2.25 X10^3/uL (0.83-4.51); Absolute Neutrophil Count 2.7 X10^3/uL (2.0-7.7); Basophil# 0.03 X10^3/uL; Basophil% 0.5 % (0-1); Eosinophil# 0.07 X10^3/uL; Eosinophils% 1.3 % (0-5); Hematocrit 33.6 % (37-47); Hemoglobin 11.7 g/dL (12.0-15.0); Lymphocyte # 2.25 X10^3/ul (0.83-4.51); Lymphocyte % 40.8 % (19-41); Mean Corp Hgb Conc 34.8 g/dL (32-36); Mean Corpuscular Hgb 30.7 pg (27.0-32.0); Mean Corpuscular Volume 88.2 fL (81-99); Mean Platelet Vol. 9.5 fl (6.2-12.0); Monocyte# 0.45 X10^3/uL; Monocyte% 8.2 % (0-10); NRBC Flagged by Analyzer 0 % (0-5); Platelet Count 315 K/mm3 (150-450); RBC Distribution Width CV 12.5 % (11.6-14.6); RBC Distribution Width SD 40.6 fl (35.1-43.9); Red Blood Count 3.81 M/mm3 (4.2-5.4); White Blood Count 5.5 K/mm3 (4.4-11.0)
--- OUTSIDE RECORDS SUMMARY | 2024-03-16 12:45 | XMS RPT_ITS | CCD ---
Author Organization [facility] Care Team Providers Care Fence Builder Name Role Phone Bourg [employer], Afsaneh S Unavailable Unavailable Primary Care Provider UnavailJuan Lenz MD Primary Care Provider [phone] Mega Cordova DO Primary Care Provider [phone] Angelina Efewongbe Azucena Primary Care Provider Vladislav Alfaroongbe Azucena Primary Care Provider Angelina Efewongbe B Primary Care Provider Mega Cordova DO Primary Care Provider [phone] MEGA CORDOVA Primary Care Unavailable LORY DEL CASTILLO Attending Unavailable MEGA CORDOVA Primary Care Unavailable LORY DEL CASTILLO Attending Unavailable MEGA CORDOVA Primary Care Unavailable MEGA CORDOVA Primary Care Unavailable MEGA CORDOVA Primary Care Unavailable HOLLIS BELLA Attending Unavailable System, Provider Not In Primary Care Provider Un available ARCADIO NGUYỄN Attending Unavailable SYSTEM, PROVIDER NOT IN Primary Care Unavaila ANAI Solorio Attending Unavailable OLEGHE, EFEWONGBE Primary Care Unavailable ANAI SUTTON Attending Unavailable OLEGHE, EFEWONGBE Primary Care Unavailable HERMAN ANAI Attending Unavailable OLEGHE, EFEWONGBE Primary Care Unavailable HERMAN ANAI Attending Unavailable OLEGHE, EFEWONGBE Primary Care Unavailable HERMAN ANAI Attending Unavailable OLEGHE, EFEWONGBE Primary Care Unavailable ANAI SUTTON Attending Unavailable OLEGHE, EFEWONGBE Primary Care Unavailable Allergies Allergy Classification Reported Allergen(s) Allergy Type Date of Onset Reaction(s) Facility (1 source) naproxen Drug Allergy 7 [facility] (1 source) varenicline Drug Allergy 7 [facility] (20 sources) Naproxen; Translations: [NAPROXEN] Drug Allergy 1 Other (See Comments), Other: See Comments, Other [place] (1 source) varenicline Drug Allergy 0 Other (See Comments) [place] (20 sources) varenicline; Translations: [VARENICLINE] Drug Allergy 0 Other: See Comments, Other, Other (See Comments) [facility] (7 sources) MITE EXTRACT; Translations: [MITE EXTRACT] Drug Allergy 9 Other: See Comments [facility] (20 sources) House dust mite Propensity to adverse reactions 9 Other [facility] (20 sources) Mold Extract Drug Allergy 9 Other, Other (See Comments) [facility] (2 sources) [place] house dust mite allergenic extract / house dust mite allergenic extract; Translations: [ALLERG XT,D.FARINAE-D. PTERONYS] Drug Allergy 9 Other (See Comments) [facility] (1 source) Mold Extract; Translations: [MOLD] Drug Allergy 9 [facility] Medications Current Medications Medication Drug Class(es) Dates Sig (Normalized) Sig (Original) [id number] 200 actuat albuterol 0.09 mg/actuat metered dose inhaler (20 sources) beta2-Adrenergic Agonist Start: 05-20-2016 take 1 puff(s) by mouth every four to six hours albuterol 108 (90 Base) MCG/ACT inhaler inhale 1 puff by mouth every 4 to 6 hours if needed for 5 days 03/07/2022 Active Start: 05-20-2016 take 2 puff(s) by in halation every six hours as needed for wheezing albuterol HFA (PROVENTIL HFA, VENTOLIN HFA) 90 mcg/actuation inhaler Inhale 2 Puffs as instructed every 6 hours as needed for Wheezing/Shortness of Breath. 1 Inhaler 0 05/20/2016 Active Comment on above: Inhale 2 Puffs as in structed every 6 hours as needed for Wheezing/Shortness of Breath. aluminum chloride 200 mg/ml topical solution (3 sources) Start: 07-22-2023 Drysol Dab-O-Matic 20 % external solution Apply to clean areas at night 0 07/22/2023 Active Start: 07-22-2023 aluminum chlor julio (DRYSOL) 20 % external solution Apply to clean areas at night 60 mL 2 07/22/2023 Active Comment on above: Apply to clean areas at night amoxicillin 875 mg oral tablet (1 source) Penicillin-class Antibacterial Start: 01-12-20 End: 01-19-20 take 1 tablet by mouth twice daily amoxicillin (AMOXIL) 875 mg tablet Take 1 tablet by mouth twice daily for 7 days. 14 tablet 0 01/11/2022 01/18/2022 Active Comment on above: Take 1 tablet by shirin th twice daily for 7 days. amoxicillin 875 mg / clavulanate 125 mg oral tablet (1 source) Penicillin-class Antibacterial Start: 08-18-19 End: 08-25-19 take 1 tablet by mouth twice daily amoxicillin-clavulan ic acid (AUGMENTIN) 875-125 mg per tablet Take 1 tablet by mouth twice daily for 7 days. 14 tablet 0 08/17/2022 08/24/2022 Active Comment on above: Take 1 tablet by shirin th twice daily for 7 days. ARIPiprazole 5 mg oral tablet (20 sources) Atypical Antipsychotic Start: 11-04-19 take 1 tablet by mouth once daily ARIPiprazole (Abilify) 5 MG tablet Take 5 mg by mouth daily. 11/03/2022 Active Comment on above: Take 5 mg by mouth. Ashwagandha 500 MG capsule (20 sources) Ashwagandha 500 MG capsule Take by mouth. Active Ashwagandha 500 MG capsule Take by mouth. 0 Active azelastine hydrochloride 0.137 mg/actuat metered dose nasal spray (1 source) Histamine-1 Receptor Antagonist Start: 08-09-2023 End: 08-08-2024 azelastine (ASTELIN) 137 mcg (0.1 %) nasal spray Indications: Chronic maxillary sinusitis 1 (one) spray by Each Nare route 2 (two) times a day . 30 mL 12 08/09/2023 08/08/2024 Active b complex vitamins capsule (20 sources) take 1 capsule by mouth once daily b complex vitamins capsule Take 1 capsule by mouth daily. Active take 1 capsule by mouth once lino ly b complex vitamins capsule Take 1 capsule by mouth daily. 0 Active biotin 10 mg disintegrating oral tablet (20 sources) Biotin 45260 MCG tablet dispersible Take by mouth. Active cholecalciferol 0.05 mg oral tablet (20 sources) Vitamin D cholecalciferol (Vitamin D-3) 50 MCG (2000 UT) tablet Take by mouth daily. Active clindamycin 10 mg/ml topical lotion (16 sources) Lincosamide Antibacterial Start: 06-14-2023 clindamycin (Cleocin T) 1 % lotion Apply to affected area in the morning 06/14/2023 Active Comment on above: Apply to affected ar ea in the morning Cranberry preparation (11 sources) Non-Standardized Food Allergenic Extract, Non-Standardized Plant Allergenic Extract CRANBERRY PO Take by mouth daily. Active CRANBERRY PO Shakeel e by mouth daily. 0 Active 24 hr desvenlafaxine succinate 50 mg extended release oral tablet (20 sources) Serotonin and Norepinephrine Reuptake Inhibitor Start: 10-29-2022 take 1 tablet by mouth once daily desvenlafaxine (Pristiq) 50 MG 24 hr tablet Take 50 mg by mouth daily. 10/29/2022 Active Start: 07-30-2022 take 1 tablet by shirin th once daily, then take 1 tablet by mouth every twenty-four hours desvenlafaxine ER (PRISTIQ) 25 mg 24 hr tablet Take 25 mg by mouth once daily. 0 07/30/2022 Active Comment on above: Take 25 mg by mouth once daily. dicyclomine hydrochloride 20 mg oral tablet (20 sources) Anticholinergic Start: 01-13-20 take 1 tablet by mouth once daily as needed dicyclomine (Bentyl) 20 MG tablet Take 1 tablet by mouth daily as needed. 01/12/2023 Active fluconazole 150 mg oral tablet (1 source) Azole Antifungal Start: 01-12-20 End: 01-13-20 take 1 tablet by mouth once daily fluconazole (DIFLUCAN) 150 mg tablet Take 1 tablet by mouth once daily for 1 day. 1 tablet 0 01/11/2022 01/12/2022 Active Comment on above: Take 1 tablet by shirin th once daily for 1 day. ibuprofen 800 mg oral tablet (8 sources) Nonsteroidal Anti-inflammatory Drug Start: 09-15-19 17 take 1 tablet by mouth every eight hours as needed ibuprofen (ADVIL,MOTRIN) 800 MG tablet Take 1 (one) tablet (800 mg total) by mouth every 8 (eight) hours as needed . 0 09/14/2016 Active Comment on above: Take 1 tablet by shirin th every 8 hours as needed. Lactobacillus acidophilus (11 sources) Lactobacillus (FLORAJEN ACIDOPHILUS PO) Take by mouth daily. Active Lactobacillus (F LORAJEN ACIDOPHILUS PO) Take by mouth daily. 0 Active magnesium oxide 400 mg oral tablet (1 source) Start: 08-09-2023 End: 08-08-2024 take 1 tablet by mouth once daily magnesium oxide (MAG-OX) 400 mg (241.3 mg magnesium) tablet Indications: Chronic migraine without aura without status migrainosus, not intractable Take 1 (one) tablet (400 mg total) by mouth daily . 90 tablet 3 08/09/2023 08/08/2024 Active Multiple Vitamins-Minerals (HAIR/SKIN/NAILS/BIOTI N PO) (20 sources) Multiple Vitamins-Minerals (HAIR/SKIN/NAILS/BIOTIN PO) Take 100 mg by mouth. 2 tablets Active Multiple Vitamin s-Minerals (HAIR/SKIN/NAILS/BIOTIN PO) Take 100 mg by mouth. 2 tablets 0 Active Multiple Vitamins-Minerals ( MULTIVITAMIN GUMMIES ADULT PO) (20 sources) Multiple Vitamin s-Minerals (MULTIVITAMIN GUMMIES ADULT PO) Take by mouth. Active Multiple Vitamin s-Minerals (MULTIVITAMIN GUMMIES ADULT PO) Take by mouth. 0 Active MULTIVITAMIN ORAL (1 source) MULTIVITAMIN ORA L Take 100 mg by mouth . 0 Active ondansetron 4 mg disintegrating oral tablet (20 sources) Serotonin-3 Receptor Antagonist Start: 08-16-19 24 take 1 tablet by mouth every four hours as needed for nausea and nausea and nausea ondansetron ODT (Zofran-ODT) 4 MG disintegrating tablet Indications: Nausea Take 1 tablet (4 mg) by mouth every 4 hours as needed for nausea. 20 tablet 08/16/2023 Active Start: 01-12-2023 take 1 tablet by shirin every four hours as needed ondansetron (ZOFRAN-ODT) 4 MG disintegrating tablet Dissolve 1 (one) tablet (4 mg total) on top of tongue every 4 (four) hours as needed . 0 01/12/2023 Active Ozempic, 1 MG/DOSE, 4 MG/3ML solution pen-injector (1 source) Start: 01-11-2024 inject 1 mg by subcutaneous injection every week Ozempic, 1 MG/DOSE, 4 MG/3ML solution pen-injector Indications: Insulin resistance Inject 1 mg under the skin 1 (one) time per week 3 mL 01/11/2024 Active polyethylene glycol 3350 24650 mg powder for oral solution (19 sources) Osmotic Laxative take 17 g by mouth every other day polyethylene glycol, PEG, 3350 (Miralax) 17 g packet Take 17 g by mouth every other day. Active 0.25 mg, 0.5 mg dose 1.5 ml semaglutide 1.34 mg/ml pen injector (20 sources) Start: 11-30-2023 End: 01-25-2024 inject 0.25 mg by subcutaneous injection every week semaglutide (Ozempic, 0.25 or 0.5 MG/DOSE,) 2 MG/1.5ML solution pen-injector Indications: Insulin resistance Inject 0.25 mg under the skin 1 (one) time per week. 1.5 mL 11/30/2023 01/25/2024 Active Start: 09-21-2023 End: 11-16-2023 inject 0.25 mg by subcutaneous injection every week semaglutide (Ozempic, 0.25 or 0.5 MG/DOSE,) 2 MG/1.5ML solution pen-injector Indications: Insulin resistance Inject 0.25 mg under the skin 1 (one) time per week. 1.5 mL 09/21/2023 Active Start: 11-12-2022 End: 01-01-2024 inject 0.5 mg by subcutaneous injection every week semaglutide (Ozempic, 0.25 or 0.5 MG/DOSE,) 2 MG/1.5ML solution pen-injector Indications: Insulin resistance Inject 0.5 mg under the skin 1 (one) time per week. 1 each 12/02/2023 01/01/2024 Active semaglutide (Ozempic) 2 MG/3ML solution pen-injector (11 sources) Start: 07-29-2023 inject 0.5 mg by subcutaneous injection every week semaglutide (Ozempic) 2 MG/3ML solution pen-injector Indications: Insulin resistance Inject 0.5 mg under the skin 1 (one) time per week. 3 mL 07/29/2023 Active Start: 07-29-2023 inject 0.5 mg by sub cutaneous injection every week semaglutide (Ozempic) 2 MG/3ML solution pen-injector Indications: Insulin resistance Inject 0.5 mg under the skin 1 (one) time per week. 3 mL 0 07/29/2023 Active Start: 07-29-2023 End: 08-28-2023 inject 0.5 mg by subcutaneous injection every week semaglutide (Ozempic) 2 MG/3ML solution pen-injector Indications: Insulin resistance Inject 0.5 mg under the skin 1 (one) time per week. 3 mL 0 07/29/2023 08/28/2023 Active semaglutide (Ozempic, 0.25 or 0.5 MG/DOSE,) 2 MG/3ML solution pen-injector (18 sources) Start: 02-10-2023 inject 0.5 mg by subcutaneous injection every week semaglutide (Ozempic, 0.25 or 0.5 MG/DOSE,) 2 MG/3ML solution pen-injector Inject 0.5 mg under the skin 1 (one) time per week. 3 mL 02/10/2023 Active Start: 02-10-2023 inject 0.5 mg by sub cutaneous injection every week semaglutide (Ozempic, 0.25 or 0.5 MG/DOSE,) 2 MG/3ML solution pen-injector Inject 0.5 mg under the skin 1 (one) time per week. 3 mL 0 02/10/2023 Active Start: 02-10-2023 End: 03-12-2023 inject 0.5 mg by subcutaneous injection every week semaglutide (Ozempic, 0.25 or 0.5 MG/DOSE,) 2 MG/3ML solution pen-injector Inject 0.5 mg under the skin 1 (one) time per week. 3 mL 0 02/10/2023 03/12/2023 Active Semaglutide, 2 MG/DOSE, (Ozempic, 2 MG/DOSE,) 8 MG/3ML solution pen-injector (15 sources) Start: 06-06-2023 Semaglutide, 2 MG/DOSE, (Ozempic, 2 MG/DOSE,) 8 MG/3ML solution pen-injector Indications: Insulin resistance Inject 2 mg under the skin every 7 days. 3 mL 1 06/06/2023 Active Start: 04-29-2023 End: 06-06-2023 Semaglutide, 2 MG/DOSE, (Oze mpic, 2 MG/DOSE,) 8 MG/3ML solution pen-injector Indications: Insulin resistance Inject 2 mg under the skin every 7 days. 3 mL 0 04/29/2023 06/06/2023 Discontinued (Reorder) Start: 04-29-2023 Semaglutide, 2 MG/DOSE, (Ozempic, 2 MG/DOSE,) 8 MG/3ML solution pen-injector Indications: Insulin resistance Inject 2 mg under the skin every 7 days. 3 mL 0 04/29/2023 Active Start: 04-29-2023 End: 05-29-2023 Semaglutide, 2 MG/DOSE, (Oze mpic, 2 MG/DOSE,) 8 MG/3ML solution pen-injector Indications: Insulin resistance Inject 2 mg under the skin every 7 days. 3 mL 0 04/29/2023 05/29/2023 Active Start: 04-11-2023 End: 04-29-2023 Semaglutide, 2 MG/DOSE, (Oze mpic, 2 MG/DOSE,) 8 MG/3ML solution pen-injector Indications: Insulin resistance Inject 2 mg under the skin every 7 days. 3 mL 0 04/11/2023 04/29/2023 Discontinued (Reorder) SUMAtriptan 50 mg oral tablet (1 source) Serotonin-1b and Serotonin-1d Receptor Agonist Start: 08-09-2023 End: 08-08-2024 SUMAtriptan (IMITREX) 50 MG tablet Indications: Chronic migraine without aura without status migrainosus, not intractable Take 1 (one) tablet (50 mg total) by mouth every 2 (two) hours as needed for migraine Max of 200 mg in 24hrs, do not treat more than 3 times a week . 10 tablet 0 08/09/2023 08/08/2024 Active tretinoin 0.5 mg/ml topical cream (3 sources) Retinoid Start: 06-14-2023 tretinoin (RET IN-A) 0.05 % cream Apply a pea size amount to the area at night as tolerated 0 06/14/2023 Active Comment on above: Apply a pea size pavel unt to the area at night as tolerated Completed/Discontinued Medications Medication Drug Class(es) Dates Sig (Normalized) Sig (Original) adapalene 0.003 mg/mg topical gel (7 sources) Retinoid Start: 06-02-2017 Adapalene 0.3 % gel Indications: Acne vulgaris , Cystic acne Apply a pea size amount to affected area every other night for 2 weeks then increase to daily as tolerated 45 g 5 06/02/2017 Active Comment on above: Apply a pea size pavel unt to affected area every other night for 2 weeks then increase to daily as tolerated benzoyl peroxide 50 mg/ml medicated liquid soap (7 sources) Start: 06-02-2017 Benzoyl Peroxide 5 % external wash Indications: Acne vulgaris , Cystic acne Wash face and chest once daily as tolerated. Can bleach towels 1 Bottle 5 06/02/2017 Active Comment on above: Wash face and chest once daily as tolerated. Can bleach towels gadobutrol (GADAVIST) injection 2 mL (1 source) Start: 04-30-2020 End: 04-30-2020 gadobutrol (GADAVIST) injection 2 mL glycopyrrolate 1 mg oral tablet (7 sources) Start: 06-02-2017 take 1 tablet by mouth three times daily glycopyrrolate (ROBINUL) 1 mg tablet Indications: Hyperhidrosis Take 1 tablet by mouth three times daily. 90 tablet 2 06/02/2017 Active Comment on above: Take 1 tablet by shirin th three times daily. iopamidol (ISOVUE-300) 61 % injection 25 mL (1 source) Start: 04-30-2020 End: 04-30-2020 iopamidol (ISOVUE-300) 61 % injection 25 mL Wyvatverufgjs-Vc-Ndhu -Minerals (MULTIPLE VITAMIN, WOMENS) tab (7 sources) Start: 09-02-2017 take 1 tablet by mouth once daily Trgizumphvlpk-Th-Mjm n-Minerals (MULTIPLE VITAMIN, WOMENS) tab Take 1 tablet by mouth once daily. 0 09/02/2017 Active Comment on above: Take 1 tablet by shirin once daily. Ozempic, 0.25 or 0.5 MG/DOSE, 2 MG/3ML solution pen-injector (3 sources) Start: 01-05-2023 End: 02-10-2023 inject 0.5 mg by subcutaneous injection every week Ozempic, 0.25 or 0.5 MG/DOSE, 2 MG/3ML solution pen-injector INJECT 0.5MG SUBCUTANEOUSLY EVERY WEEK 3 mL 0 01/05/2023 02/10/2023 Discontinued (Reorder) Start: 01-05-2023 inject 0.5 mg by sub cutaneous injection every week Ozempic, 0.25 or 0.5 MG/DOSE, 2 MG/3ML solution pen-injector INJECT 0.5MG SUBCUTANEOUSLY EVERY WEEK 3 mL 0 01/05/2023 Active Phentermine (6 sources) Sympathomimetic Amine Anorectic phentermine HCl (ADIPEX-P ORAL) Take by mouth. 0 Active Comment on above: Take by mouth. semaglutide (OZEMPIC) 2 mg/dose (8 mg/3 mL) pen injector (2 sources) inject 2 mg by subcutaneous injection every week semaglutide (OZEMPIC) 2 mg/dose (8 mg/3 mL) pen injector Inject 2 mg subcutaneously one time a week. 0 Active Comment on above: Inject 2 mg subcutan eously one time a week. semaglutide (Ozempic, 1 MG/DOSE,) 4 MG/3ML solution pen-injector (20 sources) Start: End: inject 1 mg by subcutaneous injection every week semaglutide (Ozempic, 1 MG/DOSE,) 4 MG/3ML solution pen-injector Indications: Insulin resistance Inject 1 mg under the skin 1 (one) time per week. 1 each 12/17/2023 01/11/2024 Discontinued Start: 06-03-2023 inject 1 mg by subcu taneous injection every week semaglutide (Ozempic, 1 MG/DOSE,) 4 MG/3ML solution pen-injector Indications: Insulin resistance Inject 1 mg under the skin 1 (one) time per week. 3 mL 1 06/03/2023 Active Start: 06-03-2023 End: 07-29-2023 inject 1 mg by subcutaneous injection every week semaglutide (Ozempic, 1 MG/DOSE,) 4 MG/3ML solution pen-injector Indications: Insulin resistance Inject 1 mg under the skin 1 (one) time per week. 3 mL 1 06/03/2023 07/29/2023 Active Start: 03-25-2023 End: 06-03-2023 semaglutide (Ozempic, 1 MG/D OSE,) 4 MG/3ML solution pen-injector Indications: Insulin resistance , BMI 28.0-28.9,adult Inject 1 mg under the skin 1 (one) time per week. 3 mL 0 03/25/2023 06/03/2023 Discontinued (Reorder) Start: 03-25-2023 semaglutide (O zempic, 1 MG/DOSE,) 4 MG/3ML solution pen-injector Indications: Insulin resistance , BMI 28.0-28.9,adult Inject 1 mg under the skin 1 (one) time per week. 3 mL 0 03/25/2023 Active Start: 03-25-2023 End: 04-24-2023 semaglutide (Ozempic, 1 MG/D OSE,) 4 MG/3ML solution pen-injector Indications: Insulin resistance , BMI 28.0-28.9,adult Inject 1 mg under the skin 1 (one) time per week. 3 mL 0 03/25/2023 04/24/2023 Active Start: 02-25-2023 End: 03-25-2023 semaglutide (Ozempic, 1 MG/D OSE,) 4 MG/3ML solution pen-injector Indications: Insulin resistance , BMI 28.0-28.9,adult Inject 1 mg under the skin 1 (one) time per week. 3 mL 0 02/25/2023 03/25/2023 Discontinued (Reorder) Start: 02-25-2023 End: 03-27-2023 semaglutide (Ozempic, 1 MG/D OSE,) 4 MG/3ML solution pen-injector Indications: Insulin resistance , BMI 28.0-28.9,adult Inject 1 mg under the skin 1 (one) time per week. 3 mL 0 02/25/2023 03/27/2023 Active spironolactone 50 mg oral tablet (4 sources) Aldosterone Antagonist Start: 07-22-2023 spironolactone (ALDACTONE) 50 mg tablet Take one pill twice daily 60 tablet 2 07/22/2023 Active Start: 06-14-2023 take 1 tablet by shirin th once daily spironolactone (ALDACTONE) 50 mg tablet Take 1 tablet by mouth once daily. 30 tablet 1 06/14/2023 Active Comment on above: Take 1 tablet by shirin th once daily. Take one pill twice daily vilazodone hydrochloride 20 mg oral tablet (7 sources) Start: take 1 tablet by mouth once daily at breakfast vilazodone (VIIBRYD) 20 mg Indications: Anxiety and depression Take 1 tablet by mouth daily with breakfast. As directed 30 tablet 2 11/22/2016 Active Comment on above: Take 1 tablet by shirin th daily with breakfast. As directed Problems Active Problems Problem Classification Problem Date Documented Date Episodic/Chronic Abdominal pain (1 source) Abdominal pain; Translations: [Unspecified abdominal pain] 01-12-2023 Episodic Anxiety disorders (7 sources) Anxiety; Translations: [Anxiety disorder, unspecified] 04-27-2011 Chronic Asthma (14 sources) Exercise induced bronchospasm; Translations: [Exercise induced bronchospasm] Onset: 06-23-2005 06-23-2005 Chronic Attention-deficit, conduct, and disruptive behavior disorders (7 sources) Attention deficit hyperactivity disorder; Translations: [Attention-deficit hyperactivity disorder, unspecified type] Onset: 09-30-2009 09-30-2009 Chronic Headache; including migraine (3 sources) Migraine without aura, not refractory ; Translations: [Chronic migraine without aura, not intractable, without status migrainosus] Onset: 08-09-2023 08-09-2023 Chronic Mood disorders (7 sources) Depressive disorder; Translations: [Depression] Onset: 09-17-2011 05-18-2021 Chronic Other connective tissue disease (1 source) Diastasis recti; Translations: [Separation of muscle (nontraumatic), other site] 12-02-2022 Episodic Other nutritional; endocrine; and metabolic disorders (11 sources) Body mass index 30+ - obesity; Translations: [Body mass index (BMI) 35.0-35.9, adult] Onset: 05-17-2015 11-22-2016 Chronic Other nutritional; endocrine; and metabolic disorders (4 sources) Obesity; Translations: [Obesity, unspecified] 11-12-2022 Chronic Other nutritional; endocrine; and metabolic disorders (19 sources) Insulin resistance; Translations: [Metabolic syndrome] 11-12-2022 Chronic Other nutritional; endocrine; and metabolic disorders (20 sources) Morbid obesity; Translations: [Morbid (severe) obesity due to excess calories] Onset: 05-26-2021 03-08-2022 Chronic Other nutritional; endocrine; and metabolic disorders (1 source) Localized adiposity; Translations: [Localized adiposity] 12-02-2022 Chronic Other nutritional; endocrine; and metabolic disorders (1 source) Localized adiposity; Translations: [Localized adiposity] Onset: 12-01-2022 Chronic Other nutritional; endocrine; and metabolic disorders (12 sources) Overweight in adulthood with body mass index of 25 or more but less than 30; Translations: [Body mass index (BMI) 28.0-28.9, adult] 02-25-2023 Episodic Other nutritional; endocrine; and metabolic disorders (12 sources) Body mass index 25-29 - overweight; Translations: [Overweight] 02-25-2023 Episodic Other nutritional; endocrine; and metabolic disorders (2 sources) Body mass index (BMI) 26.0-26.9, adult; Translations: [Body mass index (BMI) 26.0-26.9, adult] Onset: 12-09-2023 Episodic Other skin disorders (1 source) Acne vulgaris; Translations: [Acne vulgaris] 07-22-2023 Episodic Other skin disorders (1 source) Post-inflammatory hyperpigmentation; Translations: [Postinflammatory hyperpigmentation] 07-22-2023 Episodic Other skin disorders (1 source) Generalized hyperhidrosis; Translations: [Generalized hyperhidrosis] 07-22-2023 Episodic Other upper respiratory disease (1 source) Chronic rhinitis; Translations: [Unspecified sinusitis (chronic)] Chronic Other upper respiratory disease (1 source) Allergic rhinitis; Translations: [Other allergic rhinitis] 08-09-2023 Chronic Other upper respiratory disease (2 sources) Other allergic rhinitis; Translations: [Other allergic rhinitis] Onset: 08-09-2023 Chronic Other upper respiratory infections (3 sources) Chronic maxillary sinusitis; Translations: [Chronic maxillary sinusitis] Onset: 08-09-2023 08-09-2023 Chronic Otitis media and related conditions (2 sources) Acute right otitis media; Translations: [Otitis media, unspecified, right ear] Episodic Residual codes; unclassified (20 sources) Obstructive sleep apnea syndrome; Translations: [Obstructive sleep apnea (adult) (pediatric)] Onset: 05-28-2021 11-12-2022 Chronic Unclassified (1 source) No current problems or disability 04-19-2017 Unclassified (1 source) Insulin resistance, unspecified; Translations: [Insulin resistance, unspecified] Onset: 07-29-2023 Past or Other Problems Problem Classification Problem Date Documented Da te Episodic/Chronic Coma; stupor; and brain damage (20 sources) Daytime somnolence; Translations: [Somnolence] Onset: 05-28-2021 03-08-2022 Episodic Other connective tissue disease (1 source) Separation of muscle (nontraumatic), other site; Translations: [Diastasis recti] Onset: 12-01-2022 Episodic Other nutritional; endocrine; and metabolic disorders (2 sources) Body mass index (BMI) 25.0-25.9, adult; Translations: [Body mass index (BMI) 25.0-25.9, adult] Onset: 07-29-2023 Episodic Other nutritional; endocrine; and metabolic disorders (2 sources) Overweight; Translations: [Overweight] Onset: 07-29-2023 Episodic Other nutritional; endocrine; and metabolic disorders (2 sources) Body mass index (BMI) 27.0-27.9, adult; Translations: [Body mass index (BMI) 27.0-27.9, adult] Onset: 04-29-2023 Episodic Other nutritional; endocrine; and metabolic disorders (2 sources) Body mass index (BMI) 28.0-28.9, adult; Translations: [Body mass index (BMI) 28.0-28.9, adult] Onset: 03-25-2023 Episodic Spondylosis; intervertebral disc disorders; other back problems (20 sources) Backache; Translations: [Dorsalgia, unspecified] Onset: 05-28-2021 03-08-2022 Episodic Unclassified (1 source) Insulin resistance, unspecified; Translations: [Insulin resistance, unspecified] Onset: 07-29-2023 Results Test Name Value Interpretation Reference Range Facility 36on 02-27-2024 36 Ozempic is approved The next yaya is mandatory Thank you [facility] 36 Last OV 7-19 Next OV 11-15. Refill request pended. Thank you! [facility] [id number] 01-16-2024 [id number] Pt would like a refi ll Ozempic 1mg. Pended. Thanks! [facility] [id number] 01-04-2024 [id number] Please reach out to patient to reschedule. Thanksa! [facility] 36on 01-04-2024 36 Patient contact made via telephone. Rescheduled patient appointment with Dr. Sutton in [place] to February 02 at1:10pm. Pt agreed and confirmed. [facility] [id number] 12-17-2023 [id number] Ozempic 1 mg is sent to the pt's pharmacy Please let her know Thank you [facility] [id number] 12-16-2023 [id number] Please clarify the t opic of the name and dose of the medication Thank you [facility] [id number] Please advise. Thanks! [facility] Office Visiton 12-09-2023 Follow-up visit [id number] Helen Aparicio 1990 F Date Provider Department Center 12/09/2023 [id number]-SBVSRANAI SUTTON [facility] None Family History Problem Relation Age of Onset Obesity Mother Hyperlipidemia Maternal Grandmother Heart disease Father Hypertension Paternal Grandfather Diabetes Paternal Grandmother Heart disease Paternal Grandfather Hypertension Father Obesity Paternal Grandfather Cancer Paternal Grandfather Arthritis Maternal Grandmother Diabetes Paternal Grandfather Cancer Maternal Grandfather Comments: Prostate and lung Stroke Father Hypertension Paternal Grandmother Diabetes Maternal Grandmother Family Status - Relation Status Age at Mother Maternal Grandmother Father Paternal Grandfather Paternal Grandmother Maternal Grandfather Level of Service:11890 MO OFFICE/OUTPATIENT ESTABLISHED LOW MDM 20 MIN Reason for Visit and Comments: Weight Loss [603253] - NSURG # 10 [facility] Progress Noteon 12-09-2023 Progress Note [facility]IATRIC CARE [facility] NON-SURGICAL WEIGHT LOSS MANAGEMENT PROGRAM ROOMING NOTE: FOLLOW UP VISIT Patient: Dari Aparicio Date of : 1990 Service Date: 12/09/2023 Patient History/Assessment Summary: The patient is a pleasant 33 y.o. year old female, who stands Height: 5' 2 (157.5 cm) tall with a weight of Weight: 142 lb 9.6 oz (64.7 kg) pounds, resulting in a BMI of Body mass index is 26.08 kg/m?. kg/m2. She is here for follow-up for non-surgical treatment of Obesity Patient has the following question(s): none Pre Program Weight Metrics (CARE Path) Date of Initial Consultation:@FLOWLAST(89 61)@ Initial Weight: @FLOWLAST([id number])@ Initial BMI: @FLOWLAST([id number])@ [place] Body Weight: @FLOWLAST([id number])@ Excess Body Weight: @FLOWLAST([id number])@ Body Fat Percentage: Failed to redirect to the Timeline version of the [employer] SmartLink. Subsequent Body Fat Percentage: Failed to redirect to the Timeline version of the [employer] SmartLink. Pre Program Weight Metrics (Epic) (Surgical Wt Loss Management- baseline) This Visit Non-Surgical Subsequent Eval Date: 12/09/23 Height: 5' 2 (157.5 cm) Weight: 142 lb 9.6 oz (64.7 kg) BMI: 26.08 Weight Change: -2 lbs Total Weight Change: lbs % EBWL: % Subsequent Body Fat %: 31.3 Body Fat % Change: -0.43 Follow Up Weight Metrics Last Three Weights Including Today's Weight: Wt Readings from Last 3 Encounters: 12/09/23 142 lb 9.6 oz (64.7 kg) 11/02/23 144 lb 9.6 oz (65.6 kg) 07/29/23 138 lb 12.8 oz (63 kg) Diabetes Do you currently have diabetes? [...] home O2 Completed by: Angelic Vera LPN [facility] Progress Note HPI, PHYSICAL EXAMIN ATION & PLAN HPI: Patient here today for follow up for non-surgical weight loss management Weight trend since last visit: lost 2 lbs over 4 m stable weight regain after stopping ozempic This patient's excess weight is causing the following co-morbid conditions at this time:Other IR Physical Examination: Blood pressure 117/69, pulse 71, height 5' 2 (1.575 m), weight 142 lb 9.6 oz (64.7 kg). General: This patient is calm and [...] and does notdrink alcohol. Current Diet This patient?s current diet is: [...] Made Towards Goals: 3 month weight goal: 0 6 month weight goal: 0 12 month weight goal: 0 Plan: Obesity stable Continue current management, continue weight loss program Focus on the meal structure, composition and portion control Will start exercise resistance Under stress family issues New medication SSRI Other IR Continue current management, continue weight loss program stable Ozempic dose 0.5 mg new dose Good tolerance Daily miralax [x] Protein goal of 1g protein per [...] was performed.Clinical documentation is updated and completed. [facility] [id number] 12-02-2023 [id number] Please let the pt roro ow One month of ozempic 0.5 mg sent to her pharmacy Thank you [facility] [id number] Rec'd CT Scan in med ia mgr. [facility] [id number] 12-01-2023 [id number] LVM for [facility] medical records requesting CT scan to be faxed. [facility] [id number] 11-30-2023 [id number] Please ask the pt wh at ER she went and request from the hospital CT scan result. Please let me know when you receive the CT information and after that I will refill ozempic Thank you [facility] [id number] Please advise. Thanks! [facility] [id number] order desk caller scheduled appt for 12-02-23 [facility] 36on 11-30-2023 36 Msg sent to pt that she will need to bring CT results to next OV. [facility] [address] re sult. Please let the pt know I need to have the results of CT before I can prescribe ozempic. Thank you. [facility] 36 Pt sent msg this mor laura that she was seen in ER and had ABD CT scan that showed constipation and now using Miralax. Pt states he is unable to come to appt 12-08 due to new employment. Staff made an appt for 12-01. 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 [facility] policy states she needs to have CXR before een in office. Pt also stated in her note need for refill of Ozempic. Do you need to see pt for refill d/t CT scan result? Please advise. Thanks! [facility] 36 I called this patien t to inform them due to the positive TB test it is in [facility] policy for the patient to have the chest x ray to verify it is not active before proceeding with office visits. I informed the patient to call us back to reschedule once xray is complete. I informed the Medical staff about the medication refill and informed the patient about them speaking to Dr. Sutton about sending in the prescription electronically. [facility] [id number] 11-23-2023 [id number] Please triage the pt Does she has nausea? Does she has vomiting? Does she has constipation? When the last time she took ozempic? Does she has abd pain, what character, what duration, what is associated with? What relieve her pain or make it worse. More information is needed to give a recommendation. Thank you. [facility] [id number] LVM asked that pt ca ll back [facility] 36on 11-23-2023 36 4 attempts to reach the pt via phone. The pt is not available for the conversation. Voice mail is the only option. [facility] 36 LVM for pt to triage symptoms asked that she call back. [facility] Office Visiton 11-02-2023 Follow-up visit [id number] Helen Aparicio augustine Linton 1990 F Date Provider Department Center 11/02/2023 ANAI BRADLEY [facility] None Family History Problem Relation Age of Onset Obesity Mother Hyperlipidemia Maternal Grandmother Heart disease Father Hypertension Paternal Grandfather Diabetes Paternal Grandmother Heart disease Paternal Grandfather Hypertension Father Obesity Paternal Grandfather Cancer Paternal Grandfather Arthritis Maternal Grandmother Diabetes Paternal Grandfather Cancer Maternal Grandfather Comments: Prostate and lung Stroke Father Hypertension Paternal Grandmother Diabetes Maternal Grandmother Family Status - Relation Status Age at Mother Maternal Grandmother Father Paternal Grandfather Paternal Grandmother Maternal Grandfather Level of Service:30354 MO OFFICE/OUTPATIENT ESTABLISHED LOW [facility] 20 MIN Reason for Visit and Comments: Weight Loss [388132] - Nsurg 10 [facility] Progress Noteon 11-02-2023 Progress Note HPI, PHYSICAL EXAMIN ATION & PLAN HPI: Patient here today for follow up for non-surgical weight loss management Weight trend since last visit: gain 6 lbs over 4 m stable weight regain after stopping ozempic This patient's excess weight is causing the following co-morbid conditions at this time:Other IR Physical Examination: Blood pressure 103/68, pulse 76, height 5' 2 (1.575 m), weight 144 lb 9.6 oz (65.6 kg). General: This patient is calm and [...] and does notdrink alcohol. Current Diet This patient?s current diet is: [...] Made Towards Goals: 3 month weight goal: 0 6 month weight goal: 0 12 month weight goal: 0 Plan: Obesity stable Continue current management, continue weight loss program Focus on the meal structure, composition and portion control Will start exercise resistance Under stress family issues Other IR Continue current management, continue weight loss program stable Ozempic dose 0.5 mg new dose Good tolerance [x] Protein goal of 1g [...] was performed.Clinical documentation is updated and completed. [facility] Progress Note BARIATRIC CARE [facility] NON-SURGICAL WEIGHT LOSS MANAGEMENT PROGRAM ROOMING NOTE: FOLLOW UP VISIT Patient: Dari Aparicio Date of : 1990 Service Date: 11/02/2023 Patient History/Assessment Summary: The patient is a pleasant 33 y.o. year old female, who stands Height: 5' 2 (157.5 cm) tall with a weight of Weight: 144 lb 9.6 oz (65.6 kg) pounds, resulting in a BMI of Body mass index is 26.45 kg/m?. kg/m2. She is here for follow-up for non-surgical treatment of Over weight Patient has the following question(s): none Pre Program Weight Metrics (CARE Path) Date of Initial Consultation:@FLOWLAST(89 61)@ Initial Weight: @FLOWLAST([id number])@ Initial BMI: @FLOWLAST([id number])@ [place] Body Weight: @FLOWLAST([id number])@ Excess Body Weight: @FLOWLAST([id number])@ Body Fat Percentage: Failed to redirect to the Timeline version of the [employer] SmartLink. Subsequent Body Fat Percentage: Failed to redirect to the Timeline version of the [employer] SmartLink. Pre Program Weight Metrics (Epic) (Surgical Wt Loss Management- baseline) This Visit Non-Surgical Subsequent Eval Date: 11/02/23 Height: 5' 2 (157.5 cm) Weight: 144 lb 9.6 oz (65.6 kg) BMI: 26.44 Weight Change: 5.8 lbs Total Weight Change: lbs % EBWL: % Subsequent Body Fat %: 31.73 Body Fat % Change: 1.27 Follow Up Weight Metrics Last Three Weights Including Today's Weight: Wt Readings from Last 3 Encounters: 11/02/23 144 lb 9.6 oz (65.6 kg) 07/29/23 138 lb 12.8 oz (63 kg) 06/03/23 140 lb 12.8 oz (63.9 kg) Diabetes Do you currently have diabetes? [...] is not on home O2 Completed by: Kiera Hinds MA [facility] 36on 10-26-2023 36 Patient not successf ul with this dose. She will be seen 09-27-23 to discuss options. [facility] [id number] 10-19-2023 [id number] I am in agreement. I have not seen a pt since July. We will discuss the options during the next yaya Please let the pt know Thank you [facility] [id number] Next OV 10-28-23 would you like to discuss it then? Thanks! [facility] 36on 09-26-2023 36 Patient contact made via telephone. Patient Scheduled October 27 2pm [place] Office. Pt agreed and confirmed. [facility] [id number] 09-21-2023 [id number] Please let the pt kn ow Ozempic 0.25 mg is sent to [facility] pharmacy Thank you [facility] [id number] Pt notified that [facility] sent to [facility] [id number] 09-20-2023 [id number] Pt last OV 07-29-23 an d hasn't been on Ozempic since then. Would like to start out small. Thank you! [facility] [id number] 09-19-2023 [id number] Please clarify Is the pt on ozempic and what dose? If the pt is off ozempic for how long ? Without this information I do not know what dose to offer. Thank you [facility] [id number] 09-16-2023 [id number] Please advise. Thanks! [facility] [id number] 09-02-2023 [id number] Pt notified to stop biotin. [facility] [id number] Please advise. Thanks! [facility] [id number] 08-22-2023 [id number] Please mail the orde r to the pt Thank you [facility] [id number] 08-16-2023 [id number] Please sign order. Thanks! [facility] Office Visiton 07-29-2023 Follow-up visit [id number] MarkusArchana ornelasronnie L[place] 1990 F Date Provider Department Center 07/29/2023 ANAI BRADLEY [facility] None Family History Problem Relation Age of Onset Obesity Mother Hyperlipidemia Maternal Grandmother Heart disease Father Hypertension Paternal Grandfather Diabetes Paternal Grandmother Heart disease Paternal Grandfather Hypertension Father Obesity Paternal Grandfather Cancer Paternal Grandfather Arthritis Maternal Grandmother Diabetes Paternal Grandfather Cancer Maternal Grandfather Comments: Prostate and lung Stroke Father Hypertension Paternal Grandmother Diabetes Maternal Grandmother Family Status - Relation Status Age at Mother Maternal Grandmother Father Paternal Grandfather Paternal Grandmother Maternal Grandfather Level of Service:81243 MO OFFICE/OUTPATIENT ESTABLISHED LOW [facility] 20 MIN Reason for Visit and Comments: Weight Loss [429283] - Nsurg #9 [facility] Progress Noteon 07-29-2023 Progress Note HPI, PHYSICAL EXAMIN ATION & PLAN HPI: Patient here today for follow up for non-surgical weight loss management Weight trend since last visit: lost 2 lbs over 2 m stable This patient's excess weight is causing the following co-morbid conditions at this time:Other IR Physical Examination: Blood pressure 104/68, pulse 73, height 5' 2 (1.575 m), weight 138 lb 12.8 oz (63 kg). General: This patient is calm and [...] and does notdrink alcohol. Current Diet This patient?s current diet is: [...] Made Towards Goals: 3 month weight goal: 0 6 month weight goal: 0 12 month weight goal: 0 Plan: Obesity stable Continue current management, continue weight loss program Focus on the meal structure, composition and portion control Will start exercise resistance Other IR Continue current management, continue weight loss program stable Ozempic dose 0.5 mg new dose Good tolerance [x] Protein goal of 1g [...] was performed.Clinical documentation is updated and completed. [facility] Progress Note [facility] NON-SURGICAL WEIGHT LOSS MANAGEMENT PROGRAM ROOMING NOTE: FOLLOW UP VISIT Patient: Dari Aparicio Date of : 1990 Service Date: 07/29/2023 Patient History/Assessment Summary: The patient is a pleasant 33 y.o. year old female, who stands Height: 5' 2 (157.5 cm) tall with a weight of Weight: 138 lb 12.8 oz (63 kg) pounds, resulting in a BMI of Body mass index is 25.39 kg/m?. kg/m2. She is here for follow-up for non-surgical treatment of Over weight Patient has the following question(s): none Pre Program Weight Metrics (CARE Path) Date of Initial Consultation:@FLOWLAST(89 61)@ Initial Weight: @FLOWLAST([id number])@ Initial BMI: @FLOWLAST([id number])@ [place] Body Weight: @FLOWLAST([id number])@ Excess Body Weight: @FLOWLAST([id number])@ Body Fat Percentage: Failed to redirect to the Timeline version of the [employer] SmartLink. Subsequent Body Fat Percentage: Failed to redirect to the Timeline version of the [employer] SmartLink. Pre Program Weight Metrics (Epic) (Surgical Wt Loss Management- baseline) This Visit Non-Surgical Subsequent Eval Date: 07/29/23 Height: 5' 2 (157.5 cm) Weight: 138 lb 12.8 oz (63 kg) BMI: 25.38 Weight Change: -2 lbs Total Weight Change: lbs % EBWL: % Subsequent Body Fat %: 30.46 Body Fat % Change: -0.44 Follow Up Weight Metrics Last Three Weights Including Today's Weight: Wt Readings from Last 3 Encounters: 07/29/23 138 lb 12.8 oz (63 kg) 06/03/23 140 lb 12.8 oz (63.9 kg) 04/29/23 150 lb 8 oz (68.3 kg) Diabetes Do you currently have diabetes? [...] sheet comorbids) Falls Risk Assessment Patient does nottake medications which affect BP or mental status [...] is not on home O2 Completed by: Kiera Hinds MA [facility] CNOVon 07-22-2023 CNOV Office Visit ([facility]) ----- DARI APARICIO ([id number]) 1990 F Date Time Provider Department 07/22/23 11:40 AM LORY DEL CASTILLO [facility] During your visit today, we recorded the following information about you: Lory Del Castillo DO 07/22/2023 12:15 PM Signed Established Patient Visit Last Visit Date: 06/14/2023 CC: ayaan HPI: 33 year old female. Today's concerns are: 1) acne Location: face Duration: months Symptoms: patient states her face is the same Current treatment: clindamycin, tretinoin, spironolactone (patient using topicals every 2-3 days due to drying) Past treatment: adapalene gel, clearasil, many OTC treatments, dial soap, benzoyl peroxide Past Derm History: Personal history of melanoma: No Family history of melanoma (1st degree relative): No History of atypical nevi: No Personal history of NMSC: No ROS: Denies fevers, weight loss, night sweats, joint pain, abdominal pain, headaches, cough. Skin as above. Physical Exam: Gen: AANDOx3, well appearing Skin exam performed including face.Exam with noted findings of: -one cystic acne on L jaw line, one healing acne papule on R jaw line -scattered hyperpigmented patches on the lower face -she complains of sweating in her armpits and groin Assessment/Plan: ASSESSMENT/PLAN: 1. Acne vulgaris - ICD9: 706.1, ICD10: L70.0 -Continue on current topical regimen: - Continue with Clindamycin and Tretinoin but educated on how to use Tretinoin 0.05%: apply a pea size amount to the face every other night to nightly as tolerated with a moisturizer on top - Advised patient to discontinue using Dial soap on face. Instead use Cetaphil or CeraVe cleansers - Will increase Spironolactone to 50 mg BID - Discussed SE/Risks of Aldactone in women including but not limited to hyperkalemia, low BP, dizziness, breast tenderness, irregular menstrual cycle and importance not to get and use of contraceptives. 2. Post-inflammatory hyperpigmentation L81.0 - Discussed etiology and educated - Hyperpigmentation was discussed with the patient in detail. Discussed this can take 6 months to over a year to fade. Options of Hydroquinone was discussed. Reassurance was given. 3. Generalized hyperhidrosis R61 - Discussed etiology, educated, and treatment options discussed - Recommend starting with Drysol - Robinol in reserve RTC 4 weeks. The patient is seen and examined by Dr. Del Castillo and the following reflects his/her service. Scribed by Mally Zhao CMA. I agree with the Chief Complaint, ROS, and Past Histories independently gathered by the clinical office support and the remaining scribed note accurately describes my personal service to the patient. Lory Del Castillo DO Allergies As of Date: 07/22/2023 Noted Allergy Reaction MITE EXTRACT 07/13/2018 14 - Other: See Comments CHANTIX (VARENICLINE) 12/08/2009 14 - Other: See Comments Comments: Vomiting, diarrhea, bad dreams, restlessness, insomnia NAPROXEN 08/21/2010 14 - Other: See Comments Comments: Broke out in sweats, nightmares and all did was sleep Date Reviewed: 07/22/2023 Reviewed by: ALEA Zhao Evanthia - Fully Assessed Primary Visit Diagnosis:Acne vulgaris [L70.0] Other Visit Diagnoses:Post-inflammato ry hyperpigmentation [L81.0] Generalized hyperhidrosis [R61] Order(s):spironolactone (ALDACTONE) 50 mg tabletTake one pill twice dailyDisp: 60 tabletRfl: 2 aluminum chloride (DRYSOL) 20 % external solutionApply to clean areas at nightDisp: 60 mLRfl: 2 Prescriptions as of 07/22/2023 - spironolactone (ALDACTONE) 50 mg tablet Take one pill twice daily - aluminum chloride (DRYSOL) 20 % external solution Apply to clean areas at night - semaglutide (OZEMPIC) 2 mg/dose (8 mg/3 mL) pen injector Inject 2 mg subcutaneously one time a week. - Clindamycin Phosphate (CLEOCIN T) 1 % lotion Apply to affected area in the morning - tretinoin (RETIN-A) 0.05 % cream Apply a pea size amount to the area at night as tolerated - spironolactone (ALDACTONE) 50 mg tablet Take 1 tablet by mouth once daily. - ARIPiprazole (ABILIFY) 5 mg tablet Take 5 mg by mouth. - desvenlafaxine ER (PRISTIQ) 25 mg 24 hr tablet Take 25 mg by mouth once daily. - phentermine HCl (ADIPEX-P ORAL) Take by mouth. - Ggoubemyaslqf-Nw-Ezva-Min erals (MULTIPLE VITAMIN, WOMENS) tab Take 1 tablet by mouth once daily. - glycopyrrolate (ROBINUL) 1 mg tablet Take 1 tablet by mouth three times daily. - Benzoyl Peroxide 5 % external wash Wash face and chest once daily as tolerated. Can bleach towels - Adapalene 0.3 % gel Apply a pea size amount to affected area every other night for 2 weeks then increase to daily as tolerated - vilazodone (VIIBRYD) 20 mg Take 1 tablet by mouth daily with breakfast. As directed - ibuprofen (MOTRIN) 800 mg tablet Take 1 tablet by mouth every 8 hours as needed. - albuterol HFA (PROVENTIL (more content not included)... Normal [facility] Arnel 07-22-2023 CNPN Telephone ([facility]) ----- DARI APARICIO ([id number]) 1990 F Date Time Provider Department 07/22/23 LORY [facility] CASTILLO [facility] During your visit today, we recorded the following information about you: ALEA Zhao Evanthia 07/22/2023 12:37 PM Signed Called in Drysol and Spironolactone from today's visit to the [facility] pharmacy in [place]. Allergies As of Date: 07/22/2023 Noted Allergy Reaction MITE EXTRACT 07/13/2018 14 - Other: See Comments CHANTIX (VARENICLINE) 12/08/2009 14 - Other: See Comments Comments: Vomiting, diarrhea, bad dreams, restlessness, insomnia NAPROXEN 08/21/2010 14 - Other: See Comments Comments: Broke out in sweats, nightmares and all did was sleep Date Reviewed: 07/22/2023 Reviewed by: ALEA Zhao Evanthia - Fully Assessed Reason for Visit: Prescription Refills [1772] Prescriptions as of 07/22/2023 - spironolactone (ALDACTONE) 50 mg tablet Take one pill twice daily - aluminum chloride (DRYSOL) 20 % external solution Apply to clean areas at night - semaglutide (OZEMPIC) 2 mg/dose (8 mg/3 mL) pen injector Inject 2 mg subcutaneously one time a week. - Clindamycin Phosphate (CLEOCIN T) 1 % lotion Apply to affected area in the morning - tretinoin (RETIN-A) 0.05 % cream Apply a pea size amount to the area at night as tolerated - spironolactone (ALDACTONE) 50 mg tablet Take 1 tablet by mouth once daily. - ARIPiprazole (ABILIFY) 5 mg tablet Take 5 mg by mouth. - desvenlafaxine ER (PRISTIQ) 25 mg 24 hr tablet Take 25 mg by mouth once daily. - phentermine HCl (ADIPEX-P ORAL) Take by mouth. - Yxoqxxxmcjcqb-Fh-Awhj-Min erals (MULTIPLE VITAMIN, WOMENS) tab Take 1 tablet by mouth once daily. - glycopyrrolate (ROBINUL) 1 mg tablet Take 1 tablet by mouth three times daily. - Benzoyl Peroxide 5 % external wash Wash face and chest once daily as tolerated. Can bleach towels - Adapalene 0.3 % gel Apply a pea size amount to affected area every other night for 2 weeks then increase to daily as tolerated - vilazodone (VIIBRYD) 20 mg Take 1 tablet by mouth daily with breakfast. As directed - ibuprofen (MOTRIN) 800 mg tablet Take 1 tablet by mouth every 8 hours as needed. - albuterol HFA (PROVENTIL HFA, VENTOLIN HFA) 90 mcg/actuation inhaler Inhale 2 Puffs as instructed every 6 hours as needed for Wheezing/Shortness of Breath. Problem List As Of Date 07/22/2023 Noted Resolved Hypertrophy of breast [N62] 01/07/2005 04/27/2011 Abdominal pain, epigastric [R10.13] 01/07/2005 03/03/2010 Abdominal pain, generalized [R10.84] 01/07/2005 03/03/2010 EXERCISE INDUCED BRONCHOSPASM [J45.990] 06/23/2005 Backache, unspecified [M54.9] 05/26/2006 09/17/2011 Tobacco use disorder [F17.200] 03/31/2009 03/03/2010 Tonsillitis [J03.90] 03/31/2009 04/27/2011 ADHD (Attention Deficit Hyperactivity Disorder)*09/30/2009 Personal history of tobacco use [Z87.891] 03/03/2010 09/17/2011 Strain of lumbar region [S39.012A] 12/18/2010 12/18/2010 Anxiety [F41.9] Supervision of normal first [Z34.00] 09/17/2011 03/07/2013 Tobacco use complicating [O99.330] 09/17/2011 12/18/2016 Depression [F32.A] 09/17/2011 Back pain complicating [O99.891, M54.*09/27/2011 03/07/2013 Anemia complicating [O99.019] 01/25/2012 03/07/2013 BMI 35.0-35.9,adult [Z68.35] 05/17/2015 Asthma with exacerbation [J45.901] 07/17/2015 Abdominal pain [R10.9] 01/07/2016 01/07/2016 Irritable bowel syndrome without diarrhea [K58.*01/07/2016 01/07/2016 Encounter Status:Closed by ALEA ZHAO EVANTHIA on 07/22/23 [facility] CNOVon 06-14-2023 CNOV Office Visit (STFLD) ----- DARI APARICIO ([id number]) 1990 F Date Time Provider Department 06/14/23 4:00 PM [facility] During your visit today, we recorded the following information about you: Lory Del Castillo DO 06/14/2023 4:44 PM Signed New Patient Visit Referred from: self Chief complaint: acne HPI: 33 year old female. Today's concerns are: 1) acne Location: mostly face, some of chest and back Duration: ~10 years Symptoms: flares with cycles Current treatment: benzoyl peroxide Past treatment: adapalene gel, clearasil, many OTC treatments, dial soap She feels her skin is oily Past Derm History: Personal history of melanoma: No Family history of melanoma (1st degree relative): No Atypical nevi: No Personal history of NMSC: No Meds: Current Outpatient Medications on File Prior to Visit Medication Sig semaglutide (OZEMPIC) 2 mg/dose (8 mg/3 mL) pen injector Inject 2 mg subcutaneously one time a week. ARIPiprazole (ABILIFY) 5 mg tablet Take 5 mg by mouth. (Patient not taking: Reported on 06/14/2023) desvenlafaxine ER (PRISTIQ) 25 mg 24 hr tablet Take 25 mg by mouth once daily. (Patient not taking: Reported on 06/14/2023) phentermine HCl (ADIPEX-P ORAL) Take by mouth. (Patient not taking: Reported on 06/14/2023) Dfzjiymuvabjg-Zn-Ndwa-Min erals (MULTIPLE VITAMIN, WOMENS) tab Take 1 tablet [...] Breath. (Patient not taking: Reported on 01/11/2022) No current facility-administered medications on file prior to visit. ROS: Denies fevers, weight loss, night sweats, joint pain, abdominal pain, headaches, cough. Skin as above. Physical Exam: Gen: AAOX3, NAD Skin exam performed including scalp, face. Notable exam findings as follows: -acne cysts of cheeks, jaw line, and chin with hyperpigmented patches -firm hyperpigmented nodule(s) with positive dimple sign Assessment/Plan: ASSESSMENT/PLAN: 1. Acne vulgaris - ICD9: 706.1, ICD10: L70.0 - Discussed etiology of condition - Acne was discussed in detail as well as treatment options including topical medication, oral antibiotics, aldactone in women. Recommended gentle cleanser (cerave/cetophil). Will use BP wash in the am, Clindamycin in the am, and Tretinoin 0.05% in the pm. With retin A medications recommend to use a pea size amount every other night with moisturizer (cerave/cetophil) after and then increase to nightly use a tolerated. - Discussed risks/side effects/expected outcomes of spironolactone and will start at 50mg a day - Discussed SE/Risks of Aldactone in women including but not limited to hyperkalemia, low BP, dizziness, breast tenderness, irregular menstrual cycle and importance not to get and use of contraceptives. 2. Dermatofibroma - Explanation of these lesions were dicussed. Benign reassurance was given. RTC 4 weeks. The patient is seen and examined by Dr. Del Castillo and the following reflects his/her service. Scribed by Sola Colin RN. I agree with the Chief Complaint, ROS, and Past Histories independently gathered by the clinical office support and the remaining scribed note accurately describes my personal service to the patient. Lory Del Castillo DO Referring Provider: SELF [[id number]] Allergies As of Date: 06/14/2023 Noted Allergy Reaction MITE EXTRACT 07/13/2018 14 - Other: See Comments CHANTIX (VARENICLINE) 12/08/2009 14 - Other: See Comments Comments: Vomiting, diarrhea, bad dreams, restlessness, insomnia NAPROXEN 08/21/2010 14 - Other: See Comments Comments: Broke out in sweats, nightmares and all did was sleep Date Reviewed: 06/14/2023 Reviewed by: Sola Ferrera RN - Fully Assessed Reason for Visit: Acne [922] Primary Visit Diagnosis:Acne vulgaris [L70.0] Other Visit Diagnosis:Dermatofibroma [D23.9] Order(s):Clindamycin Phosphate (CLEOCIN T) 1 % lotionApply to affected area in the morningDisp: 60 mLRfl: 2 tretinoin (RETIN-A) 0.05 % creamApply a pea size amount to the area at night as toleratedDisp: 45 gRfl: 2 spironolactone (ALDACTONE) 50 mg tabletTake 1 tablet by mouth once daily.Disp: 30 tabletRfl: 1 Prescriptions (more content not included)... [facility] 36on 06-06-2023 36 Pt notified that med was sent to pharmacy. [facility] 36 Yes. I sent ozempic 2 mg to her pharmacy Please let her know. Thank you [facility] 36 Returned call to pt. Pt said that Ozempic 1mg is on a huge back order. Pt wanted to know if she should stay on 2mg until 1mg is available. If so, she will need a new prescription for 2mg. Please adivse. Thank you! [facility] Office Visiton 06-03-2023 Follow-up visit [id number] Helen Aparicio 1990 F Date Provider Department Center 06/03/2023 [id number] [facility] None Family History Problem Relation Age of Onset Obesity Mother Hyperlipidemia Maternal Grandmother Heart disease Father Hypertension Paternal Grandfather Diabetes Paternal Grandmother Heart disease Paternal Grandfather Hypertension Father Obesity Paternal Grandfather Cancer Paternal Grandfather Arthritis Maternal Grandmother Diabetes Paternal Grandfather Cancer Maternal Grandfather Comments: Prostate and lung Stroke Father Hypertension Paternal Grandmother Diabetes Maternal Grandmother Family Status - Relation Status Age at Mother Maternal Grandmother Father Paternal Grandfather Paternal Grandmother Maternal Grandfather Level of Service:59221 MO OFFICE/OUTPATIENT ESTABLISHED LOW MDM 20 MIN Reason for Visit and Comments: Weight Loss [792651] - Nsurg #8 [facility] Progress Noteon 06-03-2023 Progress Note HPI, PHYSICAL EXAMIN ATION & PLAN HPI: Patient here today for follow up for non-surgical weight loss management Weight trend since last visit: lost 10 lbs over 2 m stable This patient's excess weight is causing the following co-morbid conditions at this time:Other IR Physical Examination: Blood pressure 108/72, pulse 80, height 5' 2 (1.575 m), weight 140 lb 12.8 oz (63.9 kg). General: This patient is calm and [...] and does notdrink alcohol. Current Diet This patient?s current diet is: [...] Made Towards Goals: 3 month weight goal: 0 6 month weight goal: 0 12 month weight goal: 0 Plan: Obesity stable Continue current management, continue weight loss program Focus on the meal structure, composition and portion control Will start exercise resistance Other IR Continue current management, continue weight loss program stable Ozempic dose 1mg new dose Good tolerance [x] Protein goal of 1g [...] was performed.Clinical documentation is updated and completed. [facility] Progress Note BARIATRIC CARE RONAN Douglas NON-SURGICAL WEIGHT LOSS MANAGEMENT PROGRAM ROOMING NOTE: FOLLOW UP VISIT Patient: Dari Aparicio Date of : 1990 Service Date: 06/03/2023 Patient History/Assessment Summary: The patient is a pleasant 33 y.o. year old female, who stands Height: 5' 2 (157.5 cm) tall with a weight of Weight: 140 lb 12.8 oz (63.9 kg) pounds, resulting in a BMI of Body mass index is 25.75 kg/m?. kg/m2. She is here for follow-up for non-surgical treatment of Over weight Patient has the following question(s): none Pre Program Weight Metrics (CARE Path) Date of Initial Consultation:@FLOWLAST(89 61)@ Initial Weight: @FLOWLAST([id number])@ Initial BMI: @FLOWLAST([id number])@ [place] Body Weight: @FLOWLAST([id number])@ Excess Body Weight: @FLOWLAST([id number])@ Body Fat Percentage: No flowsheet data found. Subsequent Body Fat Percentage: No flowsheet data found. Pre Program Weight Metrics (Epic) (Surgical Wt Loss Management- baseline) This Visit Non-Surgical Subsequent Eval Date: 06/03/23 Height: 5' 2 (157.5 cm) Weight: 140 lb 12.8 oz (63.9 kg) BMI: 25.75 Weight Change: -9.6 lbs Total Weight Change: lbs % EBWL: % Subsequent Body Fat %: 30.9 Body Fat % Change: -2.11 Follow Up Weight Metrics Last Three Weights Including Today's Weight: Wt Readings from Last 3 Encounters: 06/03/23 140 lb 12.8 oz (63.9 kg) 04/29/23 150 lb 8 oz (68.3 kg) 03/25/23 155 lb (70.3 kg) Diabetes Do you currently have diabetes? [...] affect BP or mental status Patient has fallen in the past 2 months Patient does not demonstrate unsteady gait Patient uses the following ambulatory assistive devices: none Patient states the presence of the following traits which increases risk of fall: none Patient is not on home O2 Completed by: Kiera Hinds MA [facility] Office Visiton 04-29-2023 Follow-up visit [id number] Helen Aparicio 1990 F Date Provider Department Center 04/29/2023 ANAI [facility] None Family History Problem Relation Age of Onset Obesity Mother Hyperlipidemia Maternal Grandmother Heart disease Father Hypertension Paternal Grandfather Diabetes Paternal Grandmother Heart disease Paternal Grandfather Hypertension Father Obesity Paternal Grandfather Cancer Paternal Grandfather Arthritis Maternal Grandmother Diabetes Paternal Grandfather Cancer Maternal Grandfather Comments: Prostate and lung Stroke Father Hypertension Paternal Grandmother Diabetes Maternal Grandmother Family Status - Relation Status Age at Mother Maternal Grandmother Father Paternal Grandfather Paternal Grandmother Maternal Grandfather Level of Service:74517 MO OFFICE/OUTPATIENT ESTABLISHED LOW MDM 20-29 MIN Reason for Visit and Comments: Weight Loss [087389] - NSURG #7 [facility] Progress Noteon 04-29-2023 Progress Note BARIATRIC CARE RONAN Douglas NON-SURGICAL WEIGHT LOSS MANAGEMENT PROGRAM ROOMING NOTE: FOLLOW UP VISIT Patient: Dari Linton Markus Date of : 1990 Service Date: 04/29/2023 Patient History/Assessment Summary: The patient is a pleasant 32 y.o. year old female, who stands Height: 5' 2 (157.5 cm) tall with a weight of Weight: 150 lb 8 oz (68.3 kg) pounds, resulting in a BMI of Body mass index is 27.53 kg/m?. kg/m2. She is here for follow-up for non-surgical treatment of Over weight Patient has the following question(s): none Pre Program Weight Metrics (CARE Path) Date of Initial Consultation:@FLOWLAST(89 61)@ Initial Weight: @FLOWLAST([id number])@ Initial BMI: @FLOWLAST([id number])@ [place] Body Weight: @FLOWLAST([id number])@ Excess Body Weight: @FLOWLAST([id number])@ Body Fat Percentage: No flowsheet data found. Subsequent Body Fat Percentage: No flowsheet data found. Pre Program Weight Metrics (Epic) (Surgical Wt Loss Management- baseline) This Visit Non-Surgical Subsequent Eval Date: 04/29/23 Height: 5' 2 (157.5 cm) Weight: 150 lb 6.4 oz (68.2 kg) BMI: 27.51 Weight Change: -4.6 lbs Total Weight Change: lbs % EBWL: % Subsequent Body Fat %: 33.01 Body Fat [...] home O2 Completed by: Angelic Vera LPN [facility] Progress Note HPI, PHYSICAL EXAMIN ATION & PLAN HPI: Patient here today for [...] and does notdrink alcohol. Current Diet This patient?s current diet is: [...] was performed.Clinical documentation is updated and completed. [facility] 36on 04-04-2023 36 Ordered 1 week ago [facility] Office Visiton 03-25-2023 Follow-up visit [id number] Helen Aparicio 1990 F Date Provider Department Center 03/25/2023 [id number] [facility] None Family History Problem Relation Age of Onset Obesity Mother Hyperlipidemia Maternal Grandmother Heart disease Father Hypertension Paternal Grandfather Diabetes Paternal Grandmother Heart disease Paternal Grandfather Hypertension Father Obesity Paternal Grandfather Cancer Paternal Grandfather Arthritis Maternal Grandmother Diabetes Paternal Grandfather Cancer Maternal Grandfather Comments: Prostate and lung Stroke Father Hypertension Paternal Grandmother Diabetes Maternal Grandmother Family Status - Relation Status Age at Mother Maternal Grandmother Father Paternal Grandfather Paternal Grandmother Maternal Grandfather Level of Service:69345 MO OFFICE/OUTPATIENT ESTABLISHED LOW MDM 20-29 MIN Reason for Visit and Comments: Weight Loss [199502] - NSURG #6 [facility] Progress Noteon 03-25-2023 Progress Note HPI, PHYSICAL EXAMIN ATION & PLAN HPI: Patient here today for [...] and does notdrink alcohol. Current Diet This patient?s current diet is: [...] was performed.Clinical documentation is updated and completed. [facility] Progress Note BARIATRIC CARE [facility] NON-SURGICAL WEIGHT LOSS MANAGEMENT PROGRAM ROOMING NOTE: FOLLOW UP VISIT Patient: Dari Aparicio Date of : 1990 Service Date: 03/25/2023 Patient History/Assessment Summary: The patient is a pleasant 32 y.o. year old female, who stands Height: 5' 2 (157.5 cm) tall with a weight of Weight: 155 lb (70.3 kg) pounds, resulting in a BMI of Body mass index is 28.35 kg/m?. kg/m2. She is here for follow-up for non-surgical treatment of Obesity Patient has the following question(s): none Pre Program Weight Metrics (CARE Path) Date of Initial Consultation:@FLOWLAST(89 61)@ Initial Weight: @FLOWLAST([id number])@ Initial BMI: @FLOWLAST([id number])@ [place] Body Weight: @FLOWLAST([id number])@ Excess Body Weight: @FLOWLAST([id number])@ Body Fat Percentage: No flowsheet data found. Subsequent Body Fat Percentage: No flowsheet data found. Pre Program Weight Metrics (Epic) (Surgical Wt Loss Management- baseline) This Visit Non-Surgical Subsequent Eval Date: 03/25/23 Height: 5' 2 (157.5 cm) Weight: 155 lb (70.3 kg) BMI: 28.35 Weight Change: -3.4 lbs Total Weight Change: lbs % EBWL: % Subsequent Body Fat %: 34.02 Body Fat [...] home O2 Com[facility]: [facility] Office Visit (UCWSTR ) ----- DARI APARICIO ([id number]) 1990 F Date Time Provider Department 01/12/23 9:30 AM LYNNETTE VALDOVINOS [facility] During your visit today, we recorded the following information about you: Lynnette Valdovinos, CODIE 01/12/2023 9:31 AM Signed Patient presents with express care with severe abdominal pain for 2 days. She rates it a 9/10 in upper abdomen. She feels nauseated. Patient in tears and in obvious pain here. She just started ozempic as well. I recommended being seen I the ER. She will go to [facility] for further care. Allergies As of Date: 01/12/2023 Noted Allergy Reaction MITE EXTRACT 07/13/2018 14 - Other: See Comments CHANTIX (VARENICLINE) 12/08/2009 14 - Other: See Comments Comments: Vomiting, diarrhea, bad dreams, restlessness, insomnia NAPROXEN 08/21/2010 14 - Other: See Comments Comments: Broke out in sweats, nightmares and all did was sleep Date Reviewed: 12/01/2022 Reviewed by: Malena Cabello PCNA - Fully Assessed Primary Visit Diagnosis:Abdominal pain, unspecified abdominal location [R10.9] Prescriptions as of 02/22/2023 - ARIPiprazole (ABILIFY) 5 mg tablet Take 5 mg by mouth. - desvenlafaxine ER (PRISTIQ) 25 mg 24 hr tablet Take 25 mg by mouth once daily. - phentermine HCl (ADIPEX-P ORAL) Take by mouth. - Urthdcuhzwkaj-Lo-Ibth-Min erals (MULTIPLE VITAMIN, WOMENS) tab Take 1 tablet by mouth once daily. - glycopyrrolate (ROBINUL) 1 mg tablet Take 1 tablet by mouth three times daily. - Benzoyl Peroxide 5 % external wash Wash face and chest once daily as tolerated. Can bleach towels - Adapalene 0.3 % gel Apply a pea size amount to affected area every other night for 2 weeks then increase to daily as tolerated - vilazodone (VIIBRYD) 20 mg Take 1 tablet by mouth daily with breakfast. As directed - ibuprofen (MOTRIN) 800 mg tablet Take 1 tablet by mouth every 8 hours as needed. - albuterol HFA (PROVENTIL HFA, VENTOLIN HFA) 90 mcg/actuation inhaler Inhale 2 Puffs as instructed every 6 hours as needed for Wheezing/Shortness of Breath. Problem List As Of Date 01/12/2023 Noted Resolved Hypertrophy of breast [N62] 01/07/2005 04/27/2011 Abdominal pain, epigastric [R10.13] 01/07/2005 03/03/2010 Abdominal pain, generalized [R10.84] 01/07/2005 03/03/2010 EXERCISE INDUCED BRONCHOSPASM [J45.990] 06/23/2005 Backache, unspecified [M54.9] 05/26/2006 09/17/2011 Tobacco use disorder [F17.200] 03/31/2009 03/03/2010 Tonsillitis [J03.90] 03/31/2009 04/27/2011 ADHD (Attention Deficit Hyperactivity Disorder)*09/30/2009 Personal history of tobacco use [Z87.891] 03/03/2010 09/17/2011 Strain of lumbar region [S39.012A] 12/18/2010 12/18/2010 Anxiety [F41.9] Supervision of normal first [Z34.00] 09/17/2011 03/07/2013 Tobacco use complicating [O99.330] 09/17/2011 12/18/2016 Depression [F32.A] 09/17/2011 Back pain complicating [O99.891, M54.*09/27/2011 03/07/2013 Anemia complicating [O99.019] 01/25/2012 03/07/2013 BMI 35.0-35.9,adult [Z68.35] 05/17/2015 Asthma with exacerbation [J45.901] 07/17/2015 Abdominal pain [R10.9] 01/07/2016 01/07/2016 Irritable bowel syndrome without diarrhea [K58.*01/07/2016 01/07/2016 Encounter Status:Closed by LYNNETTE VALDOVINOS on 01/12/23 [facility] Radha 12-01-2022 CNOV Office Visit (PLASMN ) ----- DARI APARICIO ([id number]) 1990 F Date Time Provider Department 12/01/22 11:15 AM HOLLIS BELLA During your visit today, we recorded the following information about you: Temperature Pulse Blood pressure Weight 96.7 degrees 85/minute 103/46 78 kg Height 1.562 m Hollis Bella MD 12/02/2022 2:42 PM Signed Plastic Surgery Note CC: Consultation for Abdominoplasty HPI: Dari is a 32 year old female presenting [...] 2 Abdominal surgeries: x 2, lap appendectomy 2017, Personal or family hx of DVT/PE/clotting disorder: Denies DM: Gestational diabetes resolved; insulin resistance Smoking history: Former smoker, quit 2011 Lives: [place], near [place] PAST MEDICAL HISTORY Diagnosis Date Anxiety Asthma [...] DX W/COLLJ SPEC WHEN PFRMD 01/07/2016 Colonoscopy ESOPHAGOGASTRODUODENOSCOP Y TRANSORAL DIAGNOSTIC 10/30/14 EGD PAST SURGICAL HISTORY [...] phentermine HCl (ADIPEX-P ORAL) Take by mouth. Lcfboxzsdvzcc-Ed-Nslq-Min erals (MULTIPLE VITAMIN, WOMENS) tab Take 1 tablet [...] bleeding, infection, blood clots, hypertrophic scarring, seroma, a (more content not included)... Normal [facility] CNOVon 08-17-2022 CNOV Office Visit (UCWSTR ) ----- ARCHANA APARICIORACHAEL Linton ([id number]) 1990 F Date Time Provider Department 08/17/22 6:15 PM DARI WHITE [facility] During your visit today, we recorded the following information about you: Temperature Pulse Respiration Blood pressure 99.3 degrees 102/minute 16/minute 136/90 Weight Last Period 76.6 kg 08/12/22 Dari White APRN.CAMERA ENGINEER 08/17/2022 6:27 PM Signed This note was created using NoteWriter. Subjective Dari Linton Markus is a 32 year old female. 32 year old female with PMH ashtma, ADHD, depression and anxiety presents for complaints of illness. Acute onset 4 days ago Started with bilateral ear pain Popping Left greater than right +nasal drainage +post nasal +sore throat Denies cough Denies emesis. Denies diarrhea. +tobacco usage- quit 2011 Denies using homeopathic or OTC medications [employer]. The history is provided by the patient. No foreign language interpreter was used. Ear Pain This is [...] DX W/COLLJ SPEC WHEN PFRMD 01/07/2016 Colonoscopy ESOPHAGOGASTRODUODENOSCOP Y TRANSORAL DIAGNOSTIC 10/30/14 EGD PAST SURGICAL HISTORY [...] by mouth twice daily for 7 days. Hmuugovctitah-Op-Uldo-Min erals (MULTIPLE VITAMIN, WOMENS) tab Take 1 tablet [...] for pain, discharge, redness and itching. Respiratory: Posi (more content not included)... Normal [facility] Vitamin B1,Whole Bloodon Vitamin B1,Whole Blood 94 nmol/L Normal 70-180 [facility] Comment on above: Result Comment: INTE RPRETIVE INFORMATION: Vitamin B1, Whole Blood This assay measures the concentration of thiamine diphosphate (TDP), the primary active form of vitamin B1. Approximately 90 percent of vitamin B1 present in whole blood is TDP. Thiamine and thiamine monophosphate, which comprise the remaining 10 percent, are not measured. This test was developed and its performance characteristics determined by [email or web address]. It has not been cleared or approved by the [place] Food and Drug Administration. This test was performed in a CLIA certified laboratory and is intended for clinical purposes. Performed By: [email or web address] [address] [place] [id number] [employer] Teacher: Elisha Christine MD Performed By: #### H A1C2, TSH5, B12, HEMOG, IRON3, FERR3, FOLT3, LIPD2, CMP3, MG3 #### [facility] [address] [place] [address] #### ZINC2, WBB1O #### The performing lab is in the report. #### VD25H #### [facility] [address] [place] [address] Zinc, Serumon 06-23-2021 Zinc, Serum 83.2 ug/dL Normal 60.0-120.0 [facility] Comment on above: Result Comment: INTE RPRETIVE INFORMATION: Zinc, Serum or Plasma Elevated results may be due to skin or collection-related contamination, including the use of a noncertified metal-free collection/transport tube. If contamination concerns exist due to elevated levels of serum/plasma zinc, confirmation with a second specimen collected in a certified metal-free tube is recommended. Circulating zinc concentrations are dependent on albumin status and are depressed with malnutrition. Zinc may also be lowered with infection, inflammation, stress, oral contraceptives, and . Zinc may be elevated with zinc supplementation or fasting. Elevated zinc concentrations may interfere with copper absorption. This test was developed and its performance characteristics determined by [email or web address]. It has not been cleared or approved by the US Food and Drug Administration. This test was performed in a CLIA certified laboratory and is intended for clinical purposes. Performed By: [email or web address] [address] [place] [id number] [employer] Teacher: Elisha Christine MD Performed By: #### H A1C2, TSH5, B12, HEMOG, IRON3, FERR3, FOLT3, LIPD2, CMP3, MG3 #### [facility] [address] [place] [address] #### ZINC2, WBB1O #### The performing lab is in the report. #### VD25H #### [facility] [address] [place] [address] Comp Metabolic Panelon 06-19 ALT [Catalytic activity/Vol] 19 U/L Normal 0-34 [facility] Comment on above: Result Comment: The ALT test is performed by an updated assay method. Please note that the reference intervals have been changed and are now sex specific. Performed By: #### H A1C2, TSH5, B12, HEMOG, IRON3, FERR3, FOLT3, LIPD2, CMP3, MG3 #### [facility] [address] [place] [address] #### ZINC2, WBB1O #### The performing lab is in the report. #### VD25H #### [place] [address] [place] [address] Calcium [Mass/Vol] 9.4 mg/dL Normal 8.4-10.4 [facility] Comment on above: Performed By: #### H A1C2, TSH5, B12, HEMOG, IRON3, FERR3, FOLT3, LIPD2, CMP3, MG3 #### [facility] [address] [place] [address] #### ZINC2, WBB1O #### The performing lab is in the report. #### VD25H #### [address] [place] [address] ALP [Catalytic activity/Vol] 63 U/L Normal 38-126 [facility] Comment on above: Performed By: #### H A1C2, TSH5, B12, HEMOG, IRON3, FERR3, FOLT3, LIPD2, CMP3, MG3 #### [facility] [address] [place] [address] #### ZINC2, WBB1O #### The performing lab is in the report. #### VD25H #### [address] [place] [address] Anion gap [Moles/Vol] 4 mmol/L Normal 3-13 [facility] Comment on above: Performed By: #### H A1C2, TSH5, B12, HEMOG, IRON3, FERR3, FOLT3, LIPD2, CMP3, MG3 #### [facility] [address] [place] [address] #### ZINC2, WBB1O #### The performing lab is in the report. #### VD25H #### [place] [address] [place] [address] AST [Catalytic activity/Vol] 26 U/L Normal 15-46 [facility] Comment on above: Performed By: #### H A1C2, TSH5, B12, HEMOG, IRON3, FERR3, FOLT3, LIPD2, CMP3, MG3 #### [facility] [address] [place] [address] #### ZINC2, WBB1O #### The performing lab is in the report. #### VD25H #### [place] [address] [place] [address] Bilirubin [Mass/Vol] 0.3 mg/dL Normal 0.2-1.3 [facility] Comment on above: Performed By: #### H A1C2, TSH5, B12, HEMOG, IRON3, FERR3, FOLT3, LIPD2, CMP3, MG3 #### [address] [place] [address] #### ZINC2, WBB1O #### The performing lab is in the report. #### VD25H #### [address] [place] [address] CO2 [Moles/Vol] 27 mmol/L Normal 22-30 [facility] Comment on above: Performed By: #### H A1C2, TSH5, B12, HEMOG, IRON3, FERR3, FOLT3, LIPD2, CMP3, MG3 #### [address] [place] [address] #### ZINC2, WBB1O #### The performing lab is in the report. #### VD25H #### [address] [place] [address] Creatinine [Mass/Vol] 0.60 mg/dL Normal 0.52-1.25 [facility] Comment on above: Performed By: #### H A1C2, TSH5, B12, HEMOG, IRON3, FERR3, FOLT3, LIPD2, CMP3, MG3 #### [facility] [address] [place] [address] #### ZINC2, WBB1O #### The performing lab is in the report. #### VD25H #### [facility] [address] [place] [address] eGFR OTHER > 90.0 Normal >60 [facility] Comment on above: Result Comment: KDIG O guidelines provide the following GFR categories: Stage GFR(ml/min/1.73 m2) Terms G1 >=90 Normal or high G2 60-89 Mildly decreased* G3a 45-59 Mildly to moderately decreased G3b 30-44 Moderately to severely decreased G4 15-29 Severely decreased G5 <15 Kidney failure *Relative to young adult level. In the absence of evidence of kidney damage, neither GFR category G1 nor G2 fulfill the criteria for CKD. The CKD-EPI equation is validated in individuals 18 years of age and older. Currently the best equation for estimating glomerular filtration rate (GFR) from serum creatinine in children is the Bedside Gallegos equation. It is less accurate in patients with extremes of muscle mass, restriction of dietary protein, ingestion of creatine, extra-renal metabolism of creatinine, or treatment with medications that affect renal tubular creatinine secretion. Performed By: #### H A1C2, TSH5, B12, HEMOG, IRON3, FERR3, FOLT3, LIPD2, CMP3, MG3 #### [facility] [address] [place] [address] #### ZINC2, WBB1O #### The performing lab is in the report. #### VD25H #### [facility] [address] [place] [address] GFR/1.73 sq M.predicted among blacks MDRD (S/P/Bld) [Vol rate/Area] mL/min/{1.73_m2} Normal >60 [facility] Comment on above: Performed By: #### H A1C2, TSH5, B12, HEMOG, IRON3, FERR3, FOLT3, LIPD2, CMP3, MG3 #### [facility] [address] [place] [address] #### ZINC2, WBB1O #### The performing lab is in the report. #### VD25H #### [facility] [address] [place] [address] Glucose [Mass/Vol] 100 mg/dL Normal 70-100 [facility] Comment on above: Performed By: #### H A1C2, TSH5, B12, HEMOG, IRON3, FERR3, FOLT3, LIPD2, CMP3, MG3 #### [facility] [address] [place] [address] #### ZINC2, WBB1O #### The performing lab is in the report. #### VD25H #### [facility] [address] [place] [address] Protein [Mass/Vol] 7.6 g/dL Normal 6.3-8.2 [facility] Comment on above: Performed By: #### H A1C2, TSH5, B12, HEMOG, IRON3, FERR3, FOLT3, LIPD2, CMP3, MG3 #### [facility] [address] [place] [address] #### ZINC2, WBB1O #### The performing lab is in the report. #### VD25H #### [address] [place] [address] Urea nitrogen [Mass/Vol] 12 mg/dL Normal 9-20 [facility] Comment on above: Performed By: #### H A1C2, TSH5, B12, HEMOG, IRON3, FERR3, FOLT3, LIPD2, CMP3, MG3 #### [facility] [address] [place] [address] #### ZINC2, WBB1O #### The performing lab is in the report. #### VD25H #### [address] [place] [address] Potassium [Moles/Vol] 4.8 mmol/L Normal 3.5-5.1 [facility] Comment on above: Performed By: #### H A1C2, TSH5, B12, HEMOG, IRON3, FERR3, FOLT3, LIPD2, CMP3, MG3 #### [facility] [address] [place] [address] #### ZINC2, WBB1O #### The performing lab is in the report. #### VD25H #### [place] [address] [place] [address] Sodium [Moles/Vol] 139 mmol/L Normal 135-145 [facility] Comment on above: Performed By: #### H A1C2, TSH5, B12, HEMOG, IRON3, FERR3, FOLT3, LIPD2, CMP3, MG3 #### [facility] [address] [facility] [place] [address] #### ZINC2, WBB1O #### The performing lab is in the report. #### VD25H #### [facility] [address] [place] [address] Albumin [Mass/Vol] 4.5 g/dL Normal 3.5-5.0 [facility] Comment on above: Performed By: #### H A1C2, TSH5, B12, HEMOG, IRON3, FERR3, FOLT3, LIPD2, CMP3, MG3 #### [facility] [address] [facility] [place] [address] #### ZINC2, WBB1O #### The performing lab is in the report. #### VD25H #### [facility] [address] [place] [address] Chloride [Moles/Vol] 108 mmol/L High 98-107 [facility] Comment on above: Performed By: #### H A1C2, TSH5, B12, HEMOG, IRON3, FERR3, FOLT3, LIPD2, CMP3, MG3 #### [facility] [address] [facility] [place] [address] #### ZINC2, WBB1O #### The performing lab is in the report. #### VD25H #### [facility] [address] [place] [address] Ferritinon 06-19-2021 Ferritin [Mass/Vol] 13 ng/mL Normal 6-137 [facility] Comment on above: Performed By: #### H A1C2, TSH5, B12, HEMOG, IRON3, FERR3, FOLT3, LIPD2, CMP3, MG3 #### [facility] [address] [facility] [place] [address] #### ZINC2, WBB1O #### The performing lab is in the report. #### VD25H #### [address] [place] [address] Folateon 06-19-2021 Folate 12.8 ng/mL Normal [facility] Comment on above: Result Comment: >2.8 Performed By: #### H A1C2, TSH5, B12, HEMOG, IRON3, FERR3, FOLT3, LIPD2, CMP3, MG3 #### [facility] [address] [place] [address] #### ZINC2, WBB1O #### The performing lab is in the report. #### VD25H #### [address] [place] [address] Hemoglobin A1Con 06-19-2021 Glucose [Mass/Vol] 97 mg/dL Normal [facility] Comment on above: Performed By: #### H A1C2, TSH5, B12, HEMOG, IRON3, FERR3, FOLT3, LIPD2, CMP3, MG3 #### [address] [place] [address] #### ZINC2, WBB1O #### The performing lab is in the report. #### VD25H #### [address] [place] [address] HbA1c (Bld) [Mass fraction] 5.0 % Normal [facility] Comment on above: Result Comment: Norm al less than 5.7% Prediabetes 5.7% to 6.4% Diabetes 6.5% or higher --HgbA1C levels may not be accurate in patients who have renal disease, received recent blood transfusions, are anemic, or who have dyshemoglobinemia. Performed By: #### H A1C2, TSH5, B12, HEMOG, IRON3, FERR3, FOLT3, LIPD2, CMP3, MG3 #### [facility] [address] [place] [address] #### ZINC2, WBB1O #### The performing lab is in the report. #### VD25H #### [address] [place] [address] Hemogramon 06-19-2021 Erythrocyte distribution width (RBC) [Ratio] 13.0 % Normal 11.5-14.5 [facility] Comment on above: Performed By: #### H A1C2, TSH5, B12, HEMOG, IRON3, FERR3, FOLT3, LIPD2, CMP3, MG3 #### [address] [address] #### ZINC2, WBB1O #### The performing lab is in the report. #### VD25H #### [address] [place] [address] Hematocrit (Bld) [Volume fraction] 35.8 % Normal 35.0-47.0 [facility] Comment on above: Performed By: #### H A1C2, TSH5, B12, HEMOG, IRON3, FERR3, FOLT3, LIPD2, CMP3, MG3 #### [place] [address] #### ZINC2, WBB1O #### The performing lab is in the report. #### VD25H #### [address] [place] [address] Hemoglobin (Bld) [Mass/Vol] 12.3 g/dL Normal 11.7-16.0 [facility] Comment on above: Performed By: #### H A1C2, TSH5, B12, HEMOG, IRON3, FERR3, FOLT3, LIPD2, CMP3, MG3 #### [address] [address] #### ZINC2, WBB1O #### The performing lab is in the report. #### VD25H #### [address] [place] [address] MCH (RBC) [Entitic mass] 28.8 pg Normal 26.0-34.0 [facility] Comment on above: Performed By: #### H A1C2, TSH5, B12, HEMOG, IRON3, FERR3, FOLT3, LIPD2, CMP3, MG3 #### [facility] [address] [facility] [place] [address] #### ZINC2, WBB1O #### The performing lab is in the report. #### VD25H #### [facility] [address] [place] [address] MCHC 34.2 % Normal 32.0-36.0 [facility] Comment on above: Performed By: #### H A1C2, TSH5, B12, HEMOG, IRON3, FERR3, FOLT3, LIPD2, CMP3, MG3 #### [facility] [address] [facility] [place] [address] #### ZINC2, WBB1O #### The performing lab is in the report. #### VD25H #### [facility] [address] [place] [address] MCV (RBC) [Entitic vol] 84.1 fL Normal 79.0-98.0 [facility] Comment on above: Performed By: #### H A1C2, TSH5, B12, HEMOG, IRON3, FERR3, FOLT3, LIPD2, CMP3, MG3 #### [facility] [address] [facility] [place] [address] #### ZINC2, WBB1O #### The performing lab is in the report. #### VD25H #### [facility] [address] [place] [address] Platelet mean volume (Bld) [Entitic vol] 7.4 fL Normal 7.4-10.4 [facility] Comment on above: Performed By: #### H A1C2, TSH5, B12, HEMOG, IRON3, FERR3, FOLT3, LIPD2, CMP3, MG3 #### [facility] [address] [place] [address] #### ZINC2, WBB1O #### The performing lab is in the report. #### VD25H #### [facility] [address] [place] [address] Platelets (Bld) [#/Vol] 356 10*3/uL Normal 140-440 [facility] Comment on above: Performed By: #### H A1C2, TSH5, B12, HEMOG, IRON3, FERR3, FOLT3, LIPD2, CMP3, MG3 #### [facility] [address] [place] [address] #### ZINC2, WBB1O #### The performing lab is in the report. #### VD25H #### [facility] [address] [place] [address] RBC (Bld) [#/Vol] 4.26 10*6/uL Normal 3.80-5.20 [facility] Comment on above: Performed By: #### H A1C2, TSH5, B12, HEMOG, IRON3, FERR3, FOLT3, LIPD2, CMP3, MG3 #### [facility] [address] [place] [address] #### ZINC2, WBB1O #### The performing lab is in the report. #### VD25H #### [facility] [address] [place] [address] WBC (Bld) [#/Vol] 4.2 10*3/uL Normal 3.6-10.7 [facility] Comment on above: Performed By: #### H A1C2, TSH5, B12, HEMOG, IRON3, FERR3, FOLT3, LIPD2, CMP3, MG3 #### [facility] [address] [facility] [place] [address] #### ZINC2, WBB1O #### The performing lab is in the report. #### VD25H #### [facility] [address] [place] [address] Iron, Totalon 06-19-2021 Iron, Total 70 ug/dL Normal 37-170 [facility] Comment on above: Performed By: #### H A1C2, TSH5, B12, HEMOG, IRON3, FERR3, FOLT3, LIPD2, CMP3, MG3 #### [facility] [address] [place] [address] #### ZINC2, WBB1O #### The performing lab is in the report. #### VD25H #### [facility] [address] [place] [address] Lipid Panelon 06-19-2021 Chol/HDL 3 Normal [facility] Comment on above: Result Comment: Ref Range: < 3 Low Risk for CHD 3-6 Mod Risk for CHD > 6 High Risk for CHD Performed By: #### H A1C2, TSH5, B12, HEMOG, IRON3, FERR3, FOLT3, LIPD2, CMP3, MG3 #### [facility] [address] [place] [address] #### ZINC2, WBB1O #### The performing lab is in the report. #### VD25H #### [address] [place] [address] Cholesterol in HDL [Mass/Vol] 68 mg/dL High 40-60 [facility] Comment on above: Performed By: #### H A1C2, TSH5, B12, HEMOG, IRON3, FERR3, FOLT3, LIPD2, CMP3, MG3 #### [place] [address] #### ZINC2, WBB1O #### The performing lab is in the report. #### VD25H #### [facility] [address] [facility] [place] [address] Low Density Lipoprotein 132 mg/dL Abnormal <100 [facility] Comment on above: Performed By: #### H A1C2, TSH5, B12, HEMOG, IRON3, FERR3, FOLT3, LIPD2, CMP3, MG3 #### [place] [address] #### ZINC2, WBB1O #### The performing lab is in the report. #### VD25H #### [address] [place] [address] Triglyceride [Mass/Vol] 67 mg/dL Normal <150 [facility] Comment on above: Performed By: #### H A1C2, TSH5, B12, HEMOG, IRON3, FERR3, FOLT3, LIPD2, CMP3, MG3 #### [address] [address] #### ZINC2, WBB1O #### The performing lab is in the report. #### VD25H #### [facility] [address] [place] [address] Cholesterol [Mass/Vol] 213 mg/dL Abnormal < 200 [facility] Comment on above: Performed By: #### H A1C2, TSH5, B12, HEMOG, IRON3, FERR3, FOLT3, LIPD2, CMP3, MG3 #### [facility] [address] [place] [address] #### ZINC2, WBB1O #### The performing lab is in the report. #### VD25H #### [address] [place] [address] Magnesiumon 06-19-2021 Magnesium [Mass/Vol] 1.9 mg/dL Normal 1.6-2.3 [facility] Comment on above: Performed By: #### H A1C2, TSH5, B12, HEMOG, IRON3, FERR3, FOLT3, LIPD2, CMP3, MG3 #### [facility] [address] [place] [address] #### ZINC2, WBB1O #### The performing lab is in the report. #### VD25H #### [address] [place] [address] Thyroid Stim. Hormoneon 05-24 Thyroid Stim. Hormone 0.799 u[IU]/mL Normal 0.465-4.680 [facility] Comment on above: Performed By: #### H A1C2, TSH5, B12, HEMOG, IRON3, FERR3, FOLT3, LIPD2, CMP3, MG3 #### [facility] [address] [place] [address] #### ZINC2, WBB1O #### The performing lab is in the report. #### VD25H #### [place] [address] [place] [address] Vit D 25-OH, Totalon 01-28-2 022 Vit D 25-OH, Total 38 ng/mL Normal 30-100 [facility] Comment on above: Result Comment: Ther apy is based on measurement of Total 25- OHD with the following classification levels: Less than 20 ng/mL: Indicative of Vit D deficiency 20-30 ng/mL: Suggests Vit D insufficiency Optimal: Greater than or equal to 30 ng/mL Test performed by [employer] Competitive Immunoassay, measuring Total Vitamin D, not individual fractions. Performed By: #### H A1C2, TSH5, B12, HEMOG, IRON3, FERR3, FOLT3, LIPD2, CMP3, MG3 #### [facility] [address] [place] [address] #### ZINC2, WBB1O #### The performing lab is in the report. #### VD25H #### [facility] [address] [place] [address] Vitamin B12on 06-19-2021 Cobalamin (Vitamin B12) [Mass/Vol] 505 pg/mL Normal 239-931 [facility] Comment on above: Performed By: #### H A1C2, TSH5, B12, HEMOG, IRON3, FERR3, FOLT3, LIPD2, CMP3, MG3 #### [facility] [address] [place] [address] #### ZINC2, WBB1O #### The performing lab is in the report. #### VD25H #### [facility] [address] [place] [address] US Abdomen Completeon 2021 US Abdomen Complete Patient Name: DARI APARICIO Ultrasound ACCESSION EXAM DATE/TIME PROCEDURE ORDERING PROVIDER [id number] 06/15/2021 11:20 EST US Abdomen Complete [id number] HAYES JEREZ CPT code 55729 Reason For Exam (US Abdomen Complete) Abdominal Pain Report ULTRASOUND COMPLETE ABDOMEN CLINICAL INDICATION: Preoperative exam TECHNIQUE: Ultrasound of the complete abdomen COMPARISON: None FINDINGS: Liver: Generalized increased hepatic echogenicity likely corresponding to hepatic steatosis. Normal size and contour. No focal lesion identified. Gallbladder: Normal. No pericholecystic inflammatory change. Negative sonographic Rausch sign reported by the nuclear medicine pet ct technologist. Bile ducts: No intrahepatic and extrahepatic biliary dilatation Common bile duct: 2.5 mm Pancreas: Visualized portions of the head and body are normal. Right kidney: Normal parenchymal echogenicity without a solid mass or hydronephrosis. 3-4 mm echogenic foci within the superior pole without posterior acoustic shadowing. Otherwise no urolithiasis. Dimensions: 10.6 x 6.1 x 4.2 cm Left kidney: Normal parenchymal echogenicity without a solid mass or hydronephrosis. No cortical cysts. Dimensions: 11.2 x 5.4 x 5.7 cm Spleen: Normal echogenicity and size. No mass identified. Dimensions: 10.0 x 4.0 x 9.5 cm Aorta and Inferior vena cava: Visualized portions are normal Ascites: None IMPRESSION: 1. Increased hepatic echogenicity corresponding to hepatic steatosis. 2. 3-4 mm echogenic foci within the superior right renal pole. Although there is no observed posterior acoustic shadowing, this could represent a nonobstructing renal stone or represent a prominent arteriole. Ultrasound Report Report Dictated on Final Dictating Physician: MD FRANKS JASON Signed Date and Time: 06/15/2021 11:41 am Signed by: MD FRANKS JASON Transcribed Date and Time: 06/15/2021 11:42 Normal [facility] [place] ARTHR/ASP/INJ MAJOR JT/BU RSA RT WO USon 04-30-2020 [facility]: [id number] ACCESSION EXAM DATE/TIME PROCEDURE ORDERING PROVIDER [id number] 04/30/2020 09:57 EST RF Arthrogram Aspir Inj MD ANGUS, ZAC Blair Jt Right [facility] CPT code 79346 [id number] Reason For Exam (RF Arthrogram Aspir Inj Blair Jt Right) other articular cartilage disorders of right hip Report Examination: Right hip injection Indication: Hip pain Findings: Informed consent was obtained. Following this the patient was prepped and draped in a sterile fashion. Approximately 7 cc of 0.5 percent ropivacaine was used for local anesthesia. Fluoroscopic guidance was used to introduce a spinal needle into the hip joint. A small amount of iodinated contrast (Isovue 300) was used to verify position within the hip joint. There was no significant fluid to aspirate. Approximately 10 cc of a dilute gadolinium mixture (10 cc sterile saline, 10 cc ropivacaine and 0.1 cc gadolinium) was injected into the joint. The patient tolerated the procedure well without any immediate complications. Two fluoroscopic images were obtained (utilizing last image hold technique). Total fluoroscopy time was approximately 0.2 minute. Impression: Successful hip injection for MR arthrogram. The patient experienced relief of pain following injection. Report Dictated on --- Final --- Dictated: 04/30/2020 3:01 pm Dictating Physician: MD BURGOS KRIKOR Signed Date and Time: 04/30/2020 3:01 pm Signed by: MD BURGOS KRIKOR Transcribed Date and Time: 04/30/2020 3:01 [place], [place], [facility] Incoming Radiology [facility] - 04/30/2020 3:02 PM EST Patient Name: DARI APARICIO [facility]#: [id number] Fluoroscopy ACCESSION EXAM DATE/TIME PROCEDURE ORDERING PROVIDER [id number] 04/30/2020 09:57 EST RF Arthrogram Aspir Inj MD ANGUS, ZAC Blair Jt Right RISTE CPT code 46085 [id number] Reason For Exam (RF Arthrogram Aspir Inj Blair Jt Right) other articular cartilage disorders of right hip Report Examination: Right hip injection Indication: Hip pain Findings: Informed consent was obtained. Following this the patient was prepped and draped in a sterile fashion. Approximately 7 cc of 0.5 percent ropivacaine was used for local anesthesia. Fluoroscopic guidance was used to introduce a spinal needle into the hip joint. A small amount of iodinated contrast (Isovue 300) was used to verify position within the hip joint. There was no significant fluid to aspirate. Approximately 10 cc of a dilute gadolinium mixture (10 cc sterile saline, 10 cc ropivacaine and 0.1 cc gadolinium) was injected into the joint. The patient tolerated the procedure well without any immediate complications. Two fluoroscopic images were obtained (utilizing last image hold technique). Total fluoroscopy time was approximately 0.2 minute. Impression: Successful hip injection for MR arthrogram. The patient experienced relief of pain following injection. Report Dictated on --- Final --- Dictated: 04/30/2020 3:01 pm Dictating Physician: MD BURGOS KRIKOR Signed Date and Time: 04/30/2020 3:01 pm Signed by: MD BURGOS KRIKOR Transcribed Date and Time: 04/30/2020 3:01 [place], [place] MRI Low Ext Joint w/ Contras t Righton 04-30-2020 MRI Low Ext Joint w/ Contrast Right Patient Name: DARI APARICIO Magnetic Resonance Imaging ACCESSION EXAM DATE/TIME PROCEDURE ORDERING PROVIDER [id number] 04/30/2020 10:39 EST MRI Low Ext Joint w/ MD POOLE JOVAN Contrast Right [facility] CPT code 94402 Reason For Exam (MRI Low Ext Joint w/ Contrast Right) other articular cartilage disorder of right hip Report Examination: MR arthrogram right hip Indication: Right hip pain Technique: T1 fat-saturated MR arthrographic images of the right hip were obtained all in all three planes. Additionally, T2 fat-saturated coronal and axial images were obtained as well as spin echo T1 coronal images. Findings: There is susceptibility artifact along the anterior and anterior superior portion of the acetabulum. There is a small cleft at the junction of the anterior labrum with the acetabulum on oblique axial images nine and 10 of series 6. Irregularity of the labrum is noted in this same location on sagittal image 15. Suspect femoroplasty along the anterior femoral head neck junction. The contour of the femoral head is otherwise unremarkable in appearance. Cephalad acetabular version is anterior. There is no subchondral edema or subchondral cystic change. The articular cartilage is grossly intact and unremarkable in appearance. The ligamentum teres is grossly unremarkable. The musculature is unremarkable as is the rectus femoris origin and iliopsoas tendon. Ischiofemoral interval is unremarkable. The gluteal tendon insertions on the greater trochanter are grossly intact. Impression: Postsurgical changes along the anterior and anterior superior labrum. Mild irregularity of the adjacent labrum may be postsurgical or may represent a small recurrent labral tear. Magnetic Resonance Imaging Report Suspected femoroplasty changes along the anterior femoral head neck junction. Report Dictated on Final Dictated: 04/30/2020 3:03 pm Dictating Physician: MD BURGOS KRIKOR Signed Date and Time: 04/30/2020 3:09 pm Signed by: MD BURGOS KRIKOR Transcribed Date and Time: 04/30/2020 3:03 Normal [facility] MRI Lower Extremity Right W JT W Contraston 04-30-2020 Patient Name: DARI APARICIO Magnetic Resonance Imaging ACCESSION EXAM DATE/TIME PROCEDURE ORDERING PROVIDER [id number] 04/30/2020 10:39 EST MRI Low Ext Joint w/ MD POOLE JOVAN Contrast Right [facility] CPT code 00566 Reason For Exam (MRI Low Ext Joint w/ Contrast Right) other articular cartilage disorder of right hip Report Examination: MR arthrogram right hip Indication: Right hip pain Technique: T1 fat-saturated MR arthrographic images of the right hip were obtained all in all three planes. Additionally, T2 fat-saturated coronal and axial images were obtained as well as spin echo T1 coronal images. Findings: There is susceptibility artifact along the anterior and anterior superior portion of the acetabulum. There is a small cleft at the junction of the anterior labrum with the acetabulum on oblique axial images nine and 10 of series 6. Irregularity of the labrum is noted in this same location on sagittal image 15. Suspect femoroplasty along the anterior femoral head neck junction. The contour of the femoral head is otherwise unremarkable in appearance. Cephalad acetabular version is anterior. There is no subchondral edema or subchondral cystic change. The articular cartilage is grossly intact and unremarkable in appearance. The ligamentum teres is grossly unremarkable. The musculature is unremarkable as is the rectus femoris origin and iliopsoas tendon. Ischiofemoral interval is unremarkable. The gluteal tendon insertions on the greater trochanter are grossly intact. Impression: Postsurgical changes along the anterior and anterior superior labrum. Mild irregularity of the adjacent labrum may be postsurgical or may represent a small recurrent labral tear. Magnetic Resonance Imaging Report Suspected femoroplasty changes along the anterior femoral head neck junction. Report Dictated on --- Final --- Dictated: 04/30/2020 3:03 pm Dictating Physician: MD BURGOS KRIKOR Signed Date and Time: 04/30/2020 3:09 pm Signed by: MD BURGOS KRIKOR Transcribed Date and Time: 04/30/2020 3:03 [facility], [place] [place] Incoming [facility]iology [facility] - 04/30/2020 3:10 PM EST Patient Name: DARI APARICIO Magnetic Resonance Imaging ACCESSION EXAM DATE/TIME PROCEDURE ORDERING PROVIDER [id number] 04/30/2020 10:39 EST MRI Low Ext Joint w/ MD ANGUS, ZAC Contrast Right RISTE CPT code 58673 Reason For Exam (MRI Low Ext Joint w/ Contrast Right) other articular cartilage disorder of right hip Report Examination: MR arthrogram right hip Indication: Right hip pain Technique: T1 fat-saturated MR arthrographic images of the right hip were obtained all in all three planes. Additionally, T2 fat-saturated coronal and axial images were obtained as well as spin echo T1 coronal images. Findings: There is susceptibility artifact along the anterior and anterior superior portion of the acetabulum. There is a small cleft at the junction of the anterior labrum with the acetabulum on oblique axial images nine and 10 of series 6. Irregularity of the labrum is noted in this same location on sagittal image 15. Suspect femoroplasty along the anterior femoral head neck junction. The contour of the femoral head is otherwise unremarkable in appearance. Cephalad acetabular version is anterior. There is no subchondral edema or subchondral cystic change. The articular cartilage is grossly intact and unremarkable in appearance. The ligamentum teres is grossly unremarkable. The musculature is unremarkable as is the rectus femoris origin and iliopsoas tendon. Ischiofemoral interval is unremarkable. The gluteal tendon insertions on the greater trochanter are grossly intact. Impression: Postsurgical changes along the anterior and anterior superior labrum. Mild irregularity of the adjacent labrum may be postsurgical or may represent a small recurrent labral tear. Magnetic Resonance Imaging Report Suspected femoroplasty changes along the anterior femoral head neck junction. Report Dictated on --- Final --- Dictated: 04/30/2020 3:03 pm Dictating Physician: MD BURGOS KRIKOR Signed Date and Time: 04/30/2020 3:09 pm Signed by: MD BURGOS KRIKOR Transcribed Date and Time: 04/30/2020 3:03 [facility], [place] RF Arthrogram Aspir Inj Blair Jt Righton 04-30-2020 RF Arthrogram Aspir Inj Blair Jt Right Patient Name: DARI APARICIO Fluoroscopy ACCESSION EXAM DATE/TIME PROCEDURE ORDERING PROVIDER [id number] 04/30/2020 09:57 EST RF Arthrogram Aspir Inj MD ANGUS, ZAC Blair Jt Right RISTE CPT code 94450 [id number] Reason For Exam (RF Arthrogram Aspir Inj Blair Jt Right) other articular cartilage disorders of right hip Report Examination: Right hip injection Indication: Hip pain Findings: Informed consent was obtained. Following this the patient was prepped and draped in a sterile fashion. Approximately 7 cc of 0.5 percent ropivacaine was used for local anesthesia. Fluoroscopic guidance was used to introduce a spinal needle into the hip joint. A small amount of iodinated contrast (Isovue 300) was used to verify position within the hip joint. There was no significant fluid to aspirate. Approximately 10 cc of a dilute gadolinium mixture (10 cc sterile saline, 10 cc ropivacaine and 0.1 cc gadolinium) was injected into the joint. The patient tolerated the procedure well without any immediate complications. Two fluoroscopic images were obtained (utilizing last image hold technique). Total fluoroscopy time was approximately 0.2 minute. Impression: Successful hip injection for MR arthrogram. The patient experienced relief of pain following injection. Report Dictated on Final Dictated: 04/30/2020 3:01 pm Dictating Physician: MD BURGOS KRIKOR Signed Date and Time: 04/30/2020 3:01 pm Signed by: MD BURGOS KRIKOR Transcribed Date and Time: 04/30/2020 3:01 Normal [facility] Progress Noteon 02-05-[address] Justice Authentication Interface Message Text DIABETES AND PROGRAM COMANAGEMENT Referring/Requesting Provider: Azucena Cadena MD PCP: Juan Alfaro MD CHIEF COMPLAINT: T2DM HISTORY OF PRESENT ILLNESS: Dari is a 29 y.o. at 39w0d with T2DM on NPH 14 units at night. Bood glucose record was reviewed. All normal values. No bleeding, leaking, cramping. Baby is moving well. OB History Para Term AB Living 3 1 1 1 1 SAB TAB Ectopic Multiple Live Births 1 1 # Outcome Date GA Lbr Alcides/2nd Weight Sex Delivery Anes PTL Lv 3 Current 2 SAB 11/20/18 17w0d F FD Comments: cervical insufficiency vs. complication of previa Complications: Placenta Previa 1 Term 04/19/12 39w0d 2.906 kg F CS-LTranv EPI N VIVIANA Complications: Failure to Progress in First Stage, Preeclampsia Obstetric Comments 2011 CS for preeclampsia after IOL. The CS was done for failure to progress Past Medical History: Diagnosis Date Anxiety and depression referral made to behavioral health services Anxiety and depression Asthma Chronic back pain Gastrointestinal complaints, nonspecific GERD (gastroesophageal reflux disease) History of Asthma History of pre-eclampsia IBS (irritable bowel syndrome) Iron deficiency anemia supplement ordered Obesity (BMI 30-39.9) Ovarian cyst, left PCOS (polycystic ovarian syndrome) Scoliosis Past Surgical History: Procedure Laterality Date BREAST REDUCTION SURGERY SECTION HIP SURGERY KNEE SURGERY LAPAROSCOPIC APPENDECTOMY TONSILLECTOMY AND ADENOIDECTOMY Outpatient Medications Marked as Taking for the 02/05/20 encounter (Office Visit) with Sara Cunningham MD Medication Sig Dispense Refill cyclobenzaprine (FLEXERIL) 10 MG tablet take 1 tablet by mouth three times a day if needed for muscle spasm ONE TOUCH ULTRA TEST test strip use as directed FASTING AND 2 HOURS AFTER EACH MEAL BD INSULIN SYRINGE U/F 31G X 5/16 0.5 ML MISC use as directed once daily Gpxjqp-SbTld-ZkBdwUq-FA-O vernon (OB COMPLETE PETITE) 35-5-1-200 MG CAPS gummies daily aspirin 81 MG chewable tablet Take 81 mg by mouth daily HUMULIN N 100 UNIT/ML SUSP injection Inject 8 units subcutaneously qhs (Patient taking differently: Inject 14 units subcutaneously qhs) 30 mL 5 Allergies Allergen Reactions Dust Mite Extract Other (See Comments) Molds & Smuts Other (See Comments) Naproxen Other (See Comments) Broke out in sweats, nightmares and all did was sleep Other reaction(s): Other, sweats and fever, swells, has nightmares Varenicline Other (See Comments) Vomiting, diarrhea, bad dreams, restlessness, insomnia ( Chantix ) Other reaction(s): night sweats and night terrors, Other, swells, nightmares PHYSICAL EXAM: VITAL SIGNS: BP 122/72 Wt 95.3 kg (210 lb 3.2 oz) LMP 05/15/2019 BMI 39.72 kg/m AAOx3, NAD IMAGING: See US report IMPRESSION AND RECOMMENDATIONS: Dari is a 29 y.o. at 39w0d with Active Non-Hospital Problems Diagnosis Date Noted History of delivery 12/28/2019 Planned repeat at 39 weeks 02/12/20 Iron deficiency anemia Currently receiving IV Iron infusions. 3 completed Monitor CBC and treat accordingly, labs written for on WYATT visit CBC and iron studies along with her A1C Pre-existing type 2 diabetes mellitus in in second trimester 09/04/2019 Patient met with Nutrition. NPH 14 units at night, fastings all less than 90 and postprandials all within target as well Continue low dose aspirin 12/28/19 normal LEIDA and EFW of 75th (prev 81) and AC at> 99 Reviewed on 01/15/2020 sn Supervision of other high risk , antepartum 09/04/2019 COMANAGE PLAN OF CARE MD/OB APPOINTMENTS Genetic screening: per OB echo normal 10/18/19 How often should patient be evaluated? Q 1-2 weeks prn diabetes until 32 weeks then weekly until delivery Work restrictions: NA EVALUATION surveillance: 2x per week starting at 32 weeks Ultrasound: growth Q4, Cervical length screening echocardiogram DELIVERY PLAN Hospital: [facility] Repeat CD at 39 weeks or sooner if indicated. 02/[address] Lang at [facility] GBS culture:per OB Contraception: per primary OB : recommended offered consult given history of breast reduction No history of medications prior to , discussed following fasting and one hour after delivery if > 180 would have to talk about options. History of IBS may not do well with Metformin if needed Of note social dynamics with this : Biological Dad not in the picture, the FOB of the loss (17 weeker) is who is her support and he is very much in the picture with her and her other child's life Reviewed on 01/15/2020 Anxiety and depression Patient with anxiety and depression- she is very anxious now given her prior outcome. Denies suicidal and homicidal ideation Referral to Dr. Mcwilliams She denies S/HI Dr Lang new provider with Dr Cadena will be doing pt delivery. Reviewed on 01/15/2020 sn History of delivery 02/01/2019 labor precautions discussed. 01/14. Pt states stopped 17p injections. Reinforced importance of term delivery especially with Diabetes. Reviewed on 01/15/2020 sn Follow up weekly until delivery for glucose log review. Alternatively, may fax in the log and we can adjust by phone. Continue twice weekly antepartum testing. The total patient time of the visit was 15 minutes, of which was greater than 50% of the time was spent counseling and coordinating care. Normal [facility] Progress Noteon 01-15-[address] Justice Authentication Interface Message Text DIABETES AND PROGRAM COMANAGEMENT Referring/Requesting Provider: Azucena Cadena MD PCP: Juan Alfaro MD CHIEF COMPLAINT: GDMA T2DM T1DM HISTORY OF PRESENT ILLNESS: Dari is a 29 y.o. at 35w0d with 14 NPH at hs. Blood glucose record was reviewed. Reported blood sugars within goal. OB History Para Term AB Living 3 1 1 1 1 SAB TAB Ectopic Multiple Live Births 1 1 # Outcome Date GA Lbr Alcides/2nd Weight Sex Delivery Anes PTL Lv 3 Current 2 SAB 11/20/18 17w0d F FD Comments: cervical insufficiency vs. complication of previa Complications: Placenta Previa 1 Term 04/19/12 39w0d 2.906 kg F CS-LTranv EPI N VIVIANA Complications: Failure to Progress in First Stage, Preeclampsia Obstetric Comments 2011 CS for preeclampsia after IOL. The CS was done for failure to progress Past Medical History: Diagnosis Date Anxiety and depression referral made to behavioral health services Anxiety and depression Asthma Chronic back pain Gastrointestinal complaints, nonspecific GERD (gastroesophageal reflux disease) History of Asthma History of pre-eclampsia IBS (irritable bowel syndrome) Iron deficiency anemia supplement ordered Obesity (BMI 30-39.9) Ovarian cyst, left PCOS (polycystic ovarian syndrome) Scoliosis Past Surgical History: Procedure Laterality Date BREAST REDUCTION SURGERY SECTION HIP SURGERY KNEE SURGERY LAPAROSCOPIC APPENDECTOMY TONSILLECTOMY AND ADENOIDECTOMY Outpatient Medications Marked as Taking for the 01/15/20 encounter (Office Visit) with Lucita Samaniego APRN-CNP Medication Sig Dispense Refill nitrofurantoin monohydrate (MUFX8GFF) 100 MG capsule 100 mg At bedtime ONE TOUCH ULTRA TEST test strip use as directed FASTING AND 2 HOURS AFTER EACH MEAL BD INSULIN SYRINGE U/F 31G X 5/16 0.5 ML MISC use as directed once daily Xotape-TjXij-PlNcvSq-FA-O vernon (OB COMPLETE PETITE) 35-5-1-200 MG CAPS gummies daily aspirin 81 MG chewable tablet Take 81 mg by mouth daily HUMULIN N 100 UNIT/ML SUSP injection Inject 8 units subcutaneously qhs (Patient taking differently: Inject 14 units subcutaneously qhs) 30 mL 5 Allergies Allergen Reactions Dust Mite Extract Other (See Comments) Molds & Smuts Other (See Comments) Naproxen Other (See Comments) Broke out in sweats, nightmares and all did was sleep Other reaction(s): Other, sweats and fever, swells, has nightmares Varenicline Other (See Comments) Vomiting, diarrhea, bad dreams, restlessness, insomnia ( Chantix ) Other reaction(s): night sweats and night terrors, Other, swells, nightmares PHYSICAL EXAM: VITAL SIGNS: BP 106/70 Wt 93.2 kg (205 lb 6.4 oz) LMP 05/15/2019 BMI 38.81 kg/m AAOx3, NAD IMAGING: BPP 12/28 today, normal LEIDA IMPRESSION AND RECOMMENDATIONS: Dari is a 29 y.o. at 35w0d with Active Non-Hospital Problems Diagnosis Date Noted History of delivery 12/28/2019 Planned repeat at 39 weeks 02/12/20 Iron deficiency anemia Currently receiving IV Iron infusions. 3 completed Monitor CBC and treat accordingly, labs written for on WYATT visit CBC and iron studies along with her A1C Pre-existing type 2 diabetes mellitus in in second trimester 09/04/2019 Patient met with Nutrition. NPH 14 units at night, fastings all less than 90 and postprandials all within target as well Continue low dose aspirin 12/28/19 normal LEIDA and EFW of 75th (prev 81) and AC at> 99 Reviewed on 01/15/2020 sn Supervision of other high risk , antepartum 09/04/2019 COMANAGE PLAN OF CARE MD/OB APPOINTMENTS Genetic screening: per OB echo normal 10/18/19 How often should patient be evaluated? Q 1-2 weeks prn diabetes until 32 weeks then weekly until delivery Work restrictions: NA EVALUATION surveillance: 2x per week starting at 32 weeks Ultrasound: growth Q4, Cervical length screening echocardiogram DELIVERY PLAN Hospital: [facility] Repeat CD at 39 weeks or sooner if indicated. 02/[address] Lang at [facility] GBS culture:per OB Contraception: per primary OB : recommended offered consult given history of breast reduction No history of medications prior to , discussed following fasting and one hour after delivery if > 180 would have to talk about options. History of IBS may not do well with Metformin if needed Of note social dynamics with this : Biological Dad not in the picture, the FOB of the loss (17 weeker) is who is her support and he is very much in the picture with her and her other child's life Reviewed on 01/15/2020 Anxiety and depression Patient with anxiety and depression- she is very anxious now given her prior outcome. Denies suicidal and homicidal ideation Referral to Dr. Mcwilliams She denies S/HI Dr Lang new provider with Dr Cadena will be doing pt delivery. Reviewed on 01/15/2020 sn History of delivery 02/01/2019 labor precautions discussed. 01/14. Pt states stopped 17p injections. Reinforced importance of term delivery especially with Diabetes. Reviewed on 01/15/2020 sn Follow up; 1 week BPP and comanagement appointment/ sees OB for testing th/fridays Precautions reinforced The total patient time of the visit was 10 minutes, of which was greater than 50% of the time was spent counseling and coordinating care. Normal [facility] Progress Noteon 12-28-[address] Authentication Interface Message Text DIABETES AND PROGRAM COMANAGEMENT Referring/Requesting Provider: Afsaneh Snow, MADIE-* PCP: Juan Alfaro MD CHIEF COMPLAINT: T2DM HISTORY OF PRESENT ILLNESS: Dari is a 29 y.o. at 32w3d with T2DM on NPH at 14 units. Blood glucose record was reviewed. Hyperglycemia is present in no values. She is here today for co-management, has WYATT scheduled when Dr. Cadena is gone. She is asking about iron infusions of which she has had 3/3 this . Is on oral iron with hemoglobin recently above 10. We talked about the ultrasound of baby today and EFW of 75 (previously 81) and normal fluid. She is concerned about previous hip surgery in 2019, and is concerned about positioning in the which we talked about today. No clicks, pain or issues currently. We also talked about contraception and she declines BTL and difficulty with Mirena, Nexplanon and Depo in the past. Complicated social history also discussed today. OB History Para Term AB Living 3 1 1 1 1 SAB TAB Ectopic Multiple Live Births 1 1 # Outcome Date GA Lbr Alcides/2nd Weight Sex Delivery Anes PTL Lv 3 Current 2 SAB 11/20/18 17w0d F FD Comments: cervical insufficiency vs. complication of previa Complications: Placenta Previa 1 Term 04/19/12 39w0d 2.906 kg F CS-LTranv EPI N VIVIANA Complications: Failure to Progress in First Stage, Preeclampsia Obstetric Comments 2011 CS for preeclampsia after IOL. The CS was done for failure to progress Past Medical History: Diagnosis Date Anxiety and depression referral made to behavioral health services Anxiety and depression Asthma Chronic back pain Gastrointestinal complaints, nonspecific GERD (gastroesophageal reflux disease) History of Asthma History of pre-eclampsia IBS (irritable bowel syndrome) Iron deficiency anemia supplement ordered Obesity (BMI 30-39.9) Ovarian cyst, left PCOS (polycystic ovarian syndrome) Scoliosis Past Surgical History: Procedure Laterality Date BREAST REDUCTION SURGERY SECTION HIP SURGERY KNEE SURGERY LAPAROSCOPIC APPENDECTOMY TONSILLECTOMY AND ADENOIDECTOMY Outpatient Medications Marked as Taking for the 12/28/19 encounter (Office Visit) with Ana María Kaiser MD Medication Sig Dispense Refill nitrofurantoin monohydrate ([id number]) 100 MG capsule 100 mg At bedtime ARTEMIO 275 MG/1.1ML SOAJ Injection Inject 275 mg into the muscle once a week ONE TOUCH ULTRA TEST test strip use as directed FASTING AND 2 HOURS AFTER EACH MEAL BD INSULIN SYRINGE U/F 31G X 5/16 0.5 ML MISC use as directed once daily Yqxypq-UuZog-VtUpeZt-FA-O vernon (OB COMPLETE PETITE) 35-5-1-200 MG CAPS gummies daily aspirin 81 MG chewable tablet Take 81 mg by mouth daily HUMULIN N 100 UNIT/ML SUSP injection Inject 8 units subcutaneously qhs (Patient taking differently: Inject 14 units subcutaneously qhs) 30 mL 5 Allergies Allergen Reactions Naproxen Other (See Comments) Broke out in sweats, nightmares and all did was sleep Varenicline Other (See Comments) Vomiting, diarrhea, bad dreams, restlessness, insomnia ( Chantix ) PHYSICAL EXAM: VITAL SIGNS: BP 122/55 Wt 91.3 kg (201 lb 3.2 oz) LMP 05/15/2019 BMI 38.02 kg/m AAOx3, NAD IMAGING: see formal scan today IMPRESSION AND RECOMMENDATIONS: Dari is a 29 y.o. at 32w3d with Active Non-Hospital Problems Diagnosis Date Noted History of delivery 12/28/2019 Planned repeat at 39 weeks discussed unless clinically indicated sooner. Iron deficiency anemia Currently receiving IV Iron infusions. 3 completed Monitor CBC and treat accordingly, labs written for on WYATT visit CBC and iron studies along with her A1C Pre-existing type 2 diabetes mellitus in in second trimester 09/04/2019 Patient met with Nutrition. NPH 14 units at night, fastings all less than 90 and postprandials all within target as well Continue low dose aspirin 12/28/19 normal LEIDA and EFW of 75th (prev 81) and AC at> 99 Supervision of other high risk , antepartum 09/04/2019 COMANAGE PLAN OF CARE MD/OB APPOINTMENTS Genetic screening: per OB echo normal 10/18/19 How often should patient be evaluated? Q 1-2 weeks prn diabetes until 32 weeks then weekly until delivery Work restrictions: NA EVALUATION surveillance: 2x per week starting at 32 weeks Ultrasound: growth Q4, Cervical length screening echocardiogram DELIVERY PLAN Hospital: [facility] (Patient prefers [place] delivery with [facility] since Dr. Cadena is out of town) Repeat CD at 39 weeks or sooner if indicated. We talked about 02/12/20 to be scheduled at WYATT visit GBS culture: at WYATT Contraception: per primary OB : recommended offered consult given history of breast reduction No history of medications prior to , discussed following fasting and one hour after delivery if > 180 would have to talk about options. History of IBS may not do well with Metformin if needed Of note social dynamics with this : Biological Dad not in the picture, the FOB of the loss (17 weeker) is who is her support and he is very much in the picture with her and her other child's life Anxiety and depression Patient with anxiety and depression- she is very anxious now given her prior outcome. Denies suicidal and homicidal ideation Referral to Dr. Mcwilliams She denies S/HI Dari is extremely concerned about Dr. Cadena being on vacation when she is scheduled for her repeat CD. Reassurance given that she may require delivery earlier. She plans to discuss this at her upcoming visit- she may request delivery in [place]. Confirmed desire to deliver at [facility], plan for WYATT at 36 weeks [place], wants to schedule at that time, no BTL History of delivery 02/01/2019 labor precautions discussed. Continue 17 OHP Follow up 1. Continued co-management visits until her WYATT no changes in insulin today 2. Twice weekly testing is scheduled 3. Continued serial growth scans 4. Lab orders written for with her WYATT, continue oral iron for now. The total patient time of the visit was 15 minutes, of which was greater than 50% of the time was spent counseling and coordinating care. Normal [facility] Progress Noteon 12-12-[address] Authentication Interface Message Text DIABETES AND PROGRAM COMANAGEMENT Referring/Requesting Provider: Azucena Cadena MD PCP: Juan Alfaro MD CHIEF COMPLAINT: T2DM HISTORY OF PRESENT ILLNESS: Dari is a 29 y.o. at 30w1d with T2DM on NPH insulin at night 14 units. Blood glucose record was reviewed. Hyperglycemia is present in no values. She has a lot of anxiety about the including delivery (scheduled repeat ), weight of baby, (has reduction), prior . This is a male and she desires a circumcision. Also swimming to help with stressors and has a UTI. She also has a lot of anxiety around surgeries and is nervous about N/V during the case and desires skin to skin as soon as possible. No vaginal bleeding, LOF and otherwise has felt well. She is very nervous about her and a lot of her concerns were addressed today. OB History Para Term AB Living 3 1 1 1 1 SAB TAB Ectopic Multiple Live Births 1 1 # Outcome Date GA Lbr Alcides/2nd Weight Sex Delivery Anes PTL Lv 3 Current 2 SAB 11/20/18 17w0d F FD Comments: cervical insufficiency vs. complication of previa Complications: Placenta Previa 1 Term 04/19/12 39w0d 2.906 kg F CS-LTranv EPI N VIVIANA Complications: Failure to Progress in First Stage, Preeclampsia Obstetric Comments 2011 CS for preeclampsia after IOL. The CS was done for failure to progress Past Medical History: Diagnosis Date Anxiety and depression referral made to behavioral health services Anxiety and depression Asthma Chronic back pain Gastrointestinal complaints, nonspecific GERD (gastroesophageal reflux disease) History of Asthma History of pre-eclampsia IBS (irritable bowel syndrome) Iron deficiency anemia supplement ordered Obesity (BMI 30-39.9) Ovarian cyst, left PCOS (polycystic ovarian syndrome) Scoliosis Past Surgical History: Procedure Laterality Date BREAST REDUCTION SURGERY SECTION HIP SURGERY KNEE SURGERY LAPAROSCOPIC APPENDECTOMY TONSILLECTOMY AND ADENOIDECTOMY Outpatient Medications Marked as Taking for the 12/12/19 encounter (Office Visit) with Ana María Kaiser MD Medication Sig Dispense Refill cephALEXin (KEFLEX) 500 MG capsule 3 times daily cyclobenzaprine (FLEXERIL) 10 MG tablet Take by mouth 3 times daily as needed for Muscle spasms For round ligament pain ARTEMIO 275 MG/1.1ML SOAJ Injection Inject 275 mg into the muscle once a week ONE TOUCH ULTRA TEST test strip use as directed FASTING AND 2 HOURS AFTER EACH MEAL BD INSULIN SYRINGE U/F 31G X 5/16 0.5 ML MISC use as directed once daily Kxsmqy-TwLdm-DhRzwXj-FA-O vernon (OB COMPLETE PETITE) 35-5-1-200 MG CAPS gummies daily aspirin 81 MG chewable tablet Take 81 mg by mouth daily HUMULIN N 100 UNIT/ML SUSP injection Inject 8 units subcutaneously qhs (Patient taking differently: Inject 14 units subcutaneously qhs) 30 mL 5 Allergies Allergen Reactions Naproxen Other (See Comments) Broke out in sweats, nightmares and all did was sleep Varenicline Other (See Comments) Vomiting, diarrhea, bad dreams, restlessness, insomnia ( Chantix ) PHYSICAL EXAM: VITAL SIGNS: BP 117/51 Wt 90.9 kg (200 lb 6.4 oz) LMP 05/15/2019 BMI 37.87 kg/m AAOx3, NAD IMAGING: no scan today IMPRESSION AND RECOMMENDATIONS: Dari is a 29 y.o. at 30w1d with Active Non-Hospital Problems Diagnosis Date Noted Iron deficiency anemia Currently receiving IV Iron infusions. 1 of 3 completed Monitor CBC and treat accordingly Pre-existing type 2 diabetes mellitus in in second trimester 09/04/2019 Patient met with Nutrition. NPH 14 units at night, fastings all less than 90 and postprandials all within target as well Continue low dose aspirin Last ultrasound 11/30/19 normal LEIDA and EFW of 81st and AC at the 91st, lots of concerns for EFW Supervision of other high risk , antepartum 09/04/2019 COMANAGE PLAN OF CARE MD/OB APPOINTMENTS Genetic screening: per OB echo normal 10/18/19 How often should patient be evaluated? Q 1-2 weeks prn diabetes until 32 weeks then weekly until delivery Work restrictions: NA EVALUATION surveillance: 2x per week starting at 32 weeks Ultrasound: growth Q4, Cervical length screening echocardiogram DELIVERY PLAN Hospital: [facility] (Patient prefers [place] delivery with [facility] since Dr. Cadena is out of town) Repeat CD at 39 weeks or sooner if indicated. GBS culture: at [facility] Contraception: per primary OB : recommended offered consult given history of breast reduction Anxiety and depression Patient with anxiety and depression- she is very anxious now given her prior outcome. Denies suicidal and homicidal ideation Referral to Dr. Mcwilliams She denies S/HI Dari is extremely concerned about Dr. Cadena being on vacation when she is scheduled for her repeat CD. Reassurance given that she may require delivery earlier. She plans to discuss this at her upcoming visit- she may request delivery in [place]. Confirmed desire to deliver at [facility], plan for [place] at 36 weeks [place] History of delivery 02/01/2019 labor precautions discussed. Continue 17 OHP Follow up 1. Continued co-management visits every 2 weeks 2. Start testing at 32 weeks GA, twice weekly 3. Continued serial growth 4. Discussed consult as the advances 5. Reassurance given and consideration of Dr. Ponce due to her anxieties and risk for depression/anxiety The total patient time of the visit was 15 minutes, of which was greater than 50% of the time was spent counseling and coordinating care. Normal [facility] Progress Noteon 11-30-[address] Authentication Interface Message Text DIABETES AND PROGRAM COMANAGEMENT Referring/Requesting Provider: Afsaneh Snow APRN PCP: Juan Alfaro MD CHIEF COMPLAINT: T2DM HISTORY OF PRESENT ILLNESS: Dari is a 29 y.o. at 28w6d with Type 2 DM on NPH 13 units qhs. Blood glucose record was reviewed. Hyperglycemia is present rarely. She denies any complaints today. Fetus is active. OB History Para Term AB Living 3 1 1 1 1 SAB TAB Ectopic Multiple Live Births 1 1 # Outcome Date GA Lbr Alcides/2nd Weight Sex Delivery Anes PTL Lv 3 Current 2 SAB 11/20/18 17w0d F FD Comments: cervical insufficiency vs. complication of previa Complications: Placenta Previa 1 Term 04/19/12 39w0d 2.906 kg F CS-LTranv EPI N VIVIANA Complications: Failure to Progress in First Stage, Preeclampsia Obstetric Comments 2011 CS for preeclampsia after IOL. The CS was done for failure to progress Past Medical History: Diagnosis Date Anxiety and depression referral made to behavioral health services Anxiety and depression Asthma Chronic back pain Gastrointestinal complaints, nonspecific GERD (gastroesophageal reflux disease) History of Asthma History of pre-eclampsia IBS (irritable bowel syndrome) Iron deficiency anemia supplement ordered Obesity (BMI 30-39.9) Ovarian cyst, left PCOS (polycystic ovarian syndrome) Scoliosis Past Surgical History: Procedure Laterality Date BREAST REDUCTION SURGERY SECTION HIP SURGERY KNEE SURGERY LAPAROSCOPIC APPENDECTOMY TONSILLECTOMY AND ADENOIDECTOMY Outpatient Medications Marked as Taking for the 11/30/19 encounter (Office Visit) with Nicole Escobar MD Medication Sig Dispense Refill cyclobenzaprine (FLEXERIL) 10 MG tablet Take by mouth 3 times daily as needed for Muscle spasms For round ligament pain ARTEMIO 275 MG/1.1ML SOAJ Injection Inject 275 mg into the muscle once a week ONE TOUCH ULTRA TEST test strip use as directed FASTING AND 2 HOURS AFTER EACH MEAL BD INSULIN SYRINGE U/F 31G X 5/16 0.5 ML MISC use as directed once daily Mtlqqb-MiYgr-OsSxdRl-FA-O vernon (OB COMPLETE PETITE) 35-5-1-200 MG CAPS gummies daily aspirin 81 MG chewable tablet Take 81 mg by mouth daily HUMULIN N 100 UNIT/ML SUSP injection Inject 8 units subcutaneously qhs (Patient taking differently: Inject 13 units subcutaneously qhs) 30 mL 5 Allergies Allergen Reactions Naproxen Other (See Comments) Broke out in sweats, nightmares and all did was sleep Varenicline Other (See Comments) Vomiting, diarrhea, bad dreams, restlessness, insomnia ( Chantix ) PHYSICAL EXAM: VITAL SIGNS: BP 108/48 LMP 05/15/2019 AAOx3, NAD IMAGING: See ultrasound report IMPRESSION AND RECOMMENDATIONS: Dari is a 29 y.o. at 28w6d with Active Non-Hospital Problems Diagnosis Date Noted Iron deficiency anemia Currently receiving IV Iron infusions. 1 of 3 completed Monitor CBC and treat accordingly Pre-existing type 2 diabetes mellitus in in second trimester 09/04/2019 Patient met with Nutrition. Currently taking NPH 13 units qhs (weight based regimen not started due to fasting hyperglycemia only). Reviewed glucose log- appears well controlled but did change to NPH 14 units given that it is difficult to be accurate with odd number doses (syringe has hash michaels every 2 units) Continue low dose aspirin Supervision of other high risk , antepartum 09/04/2019 COMANAGE PLAN OF CARE MD/OB APPOINTMENTS Genetic screening: per OB How often should patient be evaluated? Q 1-2 weeks prn diabetes until 32 weeks then weekly until delivery Work restrictions: NA EVALUATION surveillance: 2x per week starting at 32 weeks Ultrasound: growth Q4, Cervical length screening echocardiogram DELIVERY PLAN Hospital: [facility] (Patient prefers [place] delivery with [facility] since Dr. Cadena is out of town) Repeat CD at 39 weeks or sooner if indicated. GBS culture: Contraception: : recommended Anxiety and depression Patient with anxiety and depression- she is very anxious now given her prior outcome. Denies suicidal and homicidal ideation Referral to Dr. Mcwilliams She denies S/HI Dari is extremely concerned about Dr. Cadena being on vacation when she is scheduled for her repeat CD. Reassurance given that she may require delivery earlier. She plans to discuss this at her upcoming visit- she may request delivery in [place]. History of delivery 02/01/2019 labor precautions discussed. Continue 17 OHP Follow up in 2 weeks. The total patient time of the visit was 45 minutes, of which was greater than 50% of the time was spent counseling and coordinating care. Normal [facility] Progress Noteon 10-30-[address] Authentication Interface Message Text This is a telemedicine video visit requested by the patient/guardian that was performed with the originating site at home and the distant site at office. This visit occurred during the Coronavirus (COVID-19) Public Health Emergency. Comanage PregestationalDiabetes Mellitus Dari Aparicio is seen at 24w0d for comanagement of Pregestational Diabetes Mellitus and Renal Disease, Obesity and hisotry of preeclampsia. She complains of sciatic pain. Her blood glucose record was reviewed. Her insulin did not change. Current dose is NPH 13 Units at 10pm. History of Presenting Problem: HPI HPI: Dari is a and is at 24w0d. She presents today for evaluation of her blood glucose values and co management . She has been diagnosed with pregestational diabetes type 2 . The disease course is stable. She Dari denies nausea, vomiting, visual disturbance, headaches, epigastric pain, abdominal pain, cramping, regular contractions, leakage of fluid, and/or vaginal bleeding. Overall, she feels well and has no complaints. Her treatment includes ADA diet and insulin. She appears to be compliant most of the time. Blood glucose reading have been reviewed. Fasting are all at target values (less than 90). One hour postprandial are all at the goal (less than 140) Her insulin dosage will be: NPH 13 NPH at bedtime. She complains of sciatic pain. I recommended having lumbar support Past Medical History: Past Medical History: Diagnosis Date Anxiety and depression referral made to behavioral health services Anxiety and depression Asthma Chronic back pain Gastrointestinal complaints, nonspecific GERD (gastroesophageal reflux disease) History of Asthma History of pre-eclampsia IBS (irritable bowel syndrome) Iron deficiency anemia supplement ordered Obesity (BMI 30-39.9) Ovarian cyst, left PCOS (polycystic ovarian syndrome) Scoliosis Past Surgical History: Procedure Laterality Date BREAST REDUCTION SURGERY SECTION HIP SURGERY KNEE SURGERY LAPAROSCOPIC APPENDECTOMY TONSILLECTOMY AND ADENOIDECTOMY Medications: Outpatient Encounter Medications as of 10/30/2019 Medication Sig Dispense Refill nitrofurantoin monohydrate ([id number]) 100 MG capsule take 1 capsule by mouth twice a day for urinary tract infection cyclobenzaprine (FLEXERIL) 10 MG tablet Take by mouth 3 times daily as needed for Muscle spasms For round ligament pain ARTEMIO 275 MG/1.1ML SOAJ Injection Inject 275 mg into the muscle once a week ONE TOUCH ULTRA TEST test strip use as directed FASTING AND 2 HOURS AFTER EACH MEAL BD INSULIN SYRINGE U/F 31G X 5/16 0.5 ML MISC use as directed once daily Dcsmsk-XzZqh-QdAqbXg-FA-O vernon (OB COMPLETE PETITE) 35-5-1-200 MG CAPS gummies daily aspirin 81 MG chewable tablet Take 81 mg by mouth daily HUMULIN N 100 UNIT/ML SUSP injection Inject 8 units subcutaneously qhs (Patient taking differently: Inject 13 units subcutaneously qhs) 30 mL 5 Progesterone 50 MG SUPP Insert one capsule per vagina qhs 30 Suppository 0 ondansetron (ZOFRAN) 4 MG tablet Take 4 mg by mouth as needed No facility-administered encounter medications on file as of 10/30/2019. Allergies: Allergies Allergen Reactions Naproxen Other (See Comments) Broke out in sweats, nightmares and all did was sleep Varenicline Other (See Comments) Vomiting, diarrhea, bad dreams, restlessness, insomnia ( Chantix ) Family Medical History: Family History Problem Relation Age of Onset Depression Mother Lupus Mother Diabetes Mellitus II Maternal Grandmother Lupus Maternal Grandmother Diabetes Mellitus II Maternal Grandfather Heart Disease Maternal Grandfather Cancer Maternal Grandfather Mult Sclerosis Maternal Aunt Clotting Disorder Paternal Grandfather Social History: Social History Socioeconomic History Marital status: Spouse name: None Number of children: None Years of education: None Highest education level: None Occupational History None Social Needs Financial resource strain: None Food insecurity Worry: None Inability: None Transportation needs Medical: None Non-medical: None Tobacco Use Smoking status: Former Smoker Packs/day: 0.00 Quit date: 2011 Years since quittin.4 Smokeless tobacco: Never Used Substance and Sexual Activity Alcohol use: Never Frequency: Never Drug use: Never Sexual activity: Yes Partners: Male Lifestyle Physical activity Days per week: None Minutes per session: None Stress: None Relationships Social connections Talks on phone: None Gets together: None Attends muslim service: None Active member of club or organization: None Attends meetings of clubs or organizations: None Relationship status: None Intimate partner violence Fear of current or ex partner: None Emotionally abused: None Physically abused: None Forced sexual activity: None Other Topics Concern None Social History Narrative None Review of Systems Constitutional: Negative. HENT: Negative. Eyes: Negative. Respiratory: Negative. Cardiovascular: Negative. Gastrointestinal: Negative. Genitourinary: Negative. Musculoskeletal: sciatic pain Skin: Negative. Neurological: Negative. Endo/Heme/Allergies: Negative. Psychiatric/Behavioral: Negative. Physical Exam: Vitals Extended Movement: Present Vaginal Bleeding: Absent Cramps / Contractions: Present(feels a couple cramps within an hour) Mucous Discharge: Absent Assessment/Plan: Dari Aparicio is a 29 y.o. at 24w0d with: Active Non-Hospital Problems Diagnosis Date Noted Pre-existing type 2 diabetes mellitus in in second trimester 09/04/2019 Patient met with Nutrition. Currently taking NPH 8 units qhs (weight base not started due to fasting hyperglycemia only). Reviewed glucose log- increase NPH to 12 units. Continue low dose aspirin 10/03/2019: - Recently diagnosed Type II DM - No other co morbidities - Good glycemic control - All values are at target (fasting and postprandial) - On 17 P. I explained to her the potential for needing more insulin secondary to 17 P therapy - echocardiogram is scheduled at 22 weeks 10/30/2019: All blood glucose levels are in target On Bedtime NPH 13 units Jaciel Burton MD Supervision of other high risk , antepartum 09/04/2019 COMANAGE PLAN OF CARE MD/OB APPOINTMENTS Genetic screening: per OB How often should patient be evaluated? Q 1-2 weeks prn diabetes until 32 weeks then weekly until delivery Work restrictions: NA EVALUATION surveillance: 2x per week starting at 32 weeks Ultrasound: growth Q4, Cervical length screening echocardiogram DELIVERY PLAN Hospital: [facility] Repeat CD at 39 weeks or sooner if indicated. GBS culture: Contraception: : recommended Reviewed 10/03/2019 Reviewed 10/30/2019 Jaciel Burton MD Anxiety and depression Patient with anxiety and depression- she is very anxious now given her prior outcome. Denies suicidal and homicidal ideation Referral to Dr. Poppy Lopez for PP depression Reviewed 10/30/2019: Jaciel Burton MD History of delivery 02/01/2019 - She had a loss at 17 to 18 weeks of gestation after having the diagnosis of placenta previa. - The clinical picture is not suggestive of cervical insufficiency. She had heavy vaginal bleeding that was associated with severe pain. The placenta was delivered before the fetus - The clinical picture is suggestive of a combination of placenta previa and abruption - I explained to her that the risk of recurrence of the abruption is small. She has no risk factor (no hypertension and not a smoker) - Her partner has low sperm motility. Follow up with JORDAN may be needed - For this : 1. Baby aspirin a day after 12 weeks to prevent preeclampsia. She had preeclampsia in the first (she is taking this) 2. Serial measurements of the cervix from 16 weeks to 24 weeks to rule out cervical shortening 3. If cervical shortening is noted (<25 mm), cerclage will be indicated 4. 17 OHP therapy from 16 weeks to 36 weeks 10/03/2019: Reviewed 10/30/2019: Reviewed Jaciel Burton MD Follow up Keep scheduled appointment for November 29. Pt will send in blood sugar readings via my chart in 1 week. Further follow up will be determined then. The total patient time of the visit was 15 minutes, of which greater than 50% of the time was spent counseling and coordinating care. Normal [facility] Progress Noteon 10-18-[address] Authentication Interface Message Text Dari Aparicio is a new patient who's primary care provider is Juan Alfaro MD here for evaluation of heart. Chief Complaint Patient presents with ECHO echo for diabetes and ? VSD History of Presenting Problem HPI Thank you for consulting us regarding Dari Aparicio. She is referred to the cardiology clinic at [facility] for evaluation of the heart. I saw this patient in the echocardiogram clinic on 10/18/2019. Patient was referred to the echocardiographic clinic for a echocardiogram since there was Maternal diabetes and VSD on OB ultrasound. Cardiac ROS Review of Systems See the full note Past Medical History Past Medical History: Diagnosis Date Anxiety and depression referral made to behavioral health services Anxiety and depression Asthma Chronic back pain Gastrointestinal complaints, nonspecific GERD (gastroesophageal reflux disease) History of Asthma History of pre-eclampsia IBS (irritable bowel syndrome) Iron deficiency anemia supplement ordered Obesity (BMI 30-39.9) Ovarian cyst, left PCOS (polycystic ovarian syndrome) Scoliosis Past Surgical History: Procedure Laterality Date BREAST REDUCTION SURGERY SECTION HIP SURGERY KNEE SURGERY LAPAROSCOPIC APPENDECTOMY TONSILLECTOMY AND ADENOIDECTOMY Medications: Outpatient Encounter Medications as of 10/18/2019 Medication Sig Dispense Refill cyclobenzaprine (FLEXERIL) 10 MG tablet Take by mouth 3 times daily as needed for Muscle spasms For round ligament pain ATREMIO 275 MG/1.1ML SOAJ Injection Inject 275 mg into the muscle once a week ONE TOUCH ULTRA TEST test strip use as directed FASTING AND 2 HOURS AFTER EACH MEAL BD INSULIN SYRINGE U/F 31G X 5/16 0.5 ML MISC use as directed once daily Hhyrrc-VnIhc-KnWzlXy-FA-O vernon (OB COMPLETE PETITE) 35-5-1-200 MG CAPS gummies daily aspirin 81 MG chewable tablet Take 81 mg by mouth daily HUMULIN N 100 UNIT/ML SUSP injection Inject 8 units subcutaneously qhs (Patient taking differently: Inject 13 units subcutaneously qhs) 30 mL 5 Progesterone 50 MG SUPP Insert one capsule per vagina qhs 30 Suppository 0 ondansetron (ZOFRAN) 4 MG tablet Take 4 mg by mouth as needed No facility-administered encounter medications on file as of 10/18/2019. Allergies: Allergies Allergen Reactions Naproxen Other (See Comments) Broke out in sweats, nightmares and all did was sleep Varenicline Other (See Comments) Vomiting, diarrhea, bad dreams, restlessness, insomnia ( Chantix ) Family Medical History: Family History Problem Relation Age of Onset Depression Mother Lupus Mother Diabetes Mellitus II Maternal Grandmother Lupus Maternal Grandmother Diabetes Mellitus II Maternal Grandfather Heart Disease Maternal Grandfather Cancer Maternal Grandfather Mult Sclerosis Maternal Aunt Clotting Disorder Paternal Grandfather Social History: Social History Socioeconomic History Marital status: Spouse name: None Number of children: None Years of education: None Highest education level: None Occupational History None Social Needs Financial resource strain: None Food insecurity Worry: None Inability: None Transportation needs Medical: None Non-medical: None Tobacco Use Smoking status: Former Smoker Packs/day: 0.00 Quit date: 2011 Years since quittin.4 Smokeless tobacco: Never Used Substance and Sexual Activity Alcohol use: Never Frequency: Never Drug use: Never Sexual activity: Yes Partners: Male Lifestyle Physical activity Days per week: None Minutes per session: None Stress: None Relationships Social connections Talks on phone: None Gets together: None Attends muslim service: None Active member of club or organization: None Attends meetings of clubs or organizations: None Relationship status: None Intimate partner violence Fear of current or ex partner: None Emotionally abused: None Physically abused: None Forced sexual activity: None Other Topics Concern None Social History Narrative None Physical Exam: Vitals: 10/18/19 1109 BP: 104/59 Pulse: 95 Growth percentile SmartLinks can only be used for patients less than 20 years old. Weight - Scale: 85.3 kg Facility age limit for growth percentiles is 20 years. Height: 154.9 cm Facility age limit for growth percentiles is 20 years. Physical Exam Patient is here for the echocardiogram. Physical exam was deferred. 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 Atrioventricular and ventriculoarterial concordance seen. Atria: Normal left and right atrial size. There was a patent foramen ovale, with egthm-do-knoa shunt. Tricuspid valve: Normal tricuspid valve. There was normal Doppler across the tricuspid valve. Mitral valve: Normal mitral valve. There was normal Doppler across the mitral valve. Right ventricle: There was normal size and systolic function. Left ventricle: There was normal size and systolic function. Aortic valve: Normal aortic valve. There was normal Doppler across the aortic valve seen. Pulmonary valve: Normal pulmonary valve. There was normal Doppler across the pulmonary valve seen. Ventricular septum: There was no obvious ventricular septal defect seen. Main pulmonary artery: Normal main pulmonary artery. Pulmonary arteries: Good size branch pulmonary arteries. Pulmonary veins: There were at least 2/4 pulmonary veins seen entering into the left atrium. Systemic venous return: There was normal systemic venous return seen. Aortic arch: Patent aortic arch. Ductal arch: Patent Ductal arch. 3-vessel view: There was normal 3-vessel view. Ductus venosus: There was normal flow pattern seen in the ductus venosus. Umbilical artery and umbilical vein. There was normal pulse Doppler in umbilical artery and umbilical vein. Rhythm: There appeared to be a sinus rhythm. There was no arrhythmia noted. Measurements: Aortic valve anulus measured mm, mitral valve anulus mm, tricuspid valve anulus mm, left ventricle in long axis cm, RV in long axis cm, right pulmonary artery mm, left pulmonary artery measured mm. Impression and recommendations. 1) No evidence of an obvious VSD. Normal echocardiogram. 2) I have discussed the limitations of echocardiographic examination, that is likely to miss small ventricular septal defects as well as mild semilunar valve stenosis. Patent foramen ovale and patent ductus arteriosus are normal findings in utero. Coarctation of aorta is difficult to diagnose pre natally in the presence of patent ductus arteriosus. 3) I have also discussed echocardiographic findings in detail including circulation, pathophysiology of Patent foramen ovale and Patent ductus arteriosus, prognosis, medical and surgical treatments, follow up echocardiograms and follow ups. 4) I would like to see in cardiology clinic here at [facility], 1-2 months after the or earlier if cardiac condition/status changes in any way. Counseling and/or coordination of care was greater than 35 minutes which is more than 50% of the total time of 60 minutes spent on the encounter. Blanco Oh MD 10/18/2019 Normal [facility] Progress Noteon 10-05-[address] Authentication Interface Message Text This is a telemedicine video visit requested by the patient/guardian that was performed with the originating site at home and the distant site at office. This visit occurred during the Coronavirus (COVID-19) Public Health Emergency. Comanage PregestationalDiabetes Mellitus Dari Aparicio is seen at 20w3d for comanagement of Pregestational Diabetes Mellitus and none. She denies any complaints today. Her blood glucose record was reviewed. Her insulin did not change. Current dose is NPH 12 Units at bedtime. History of Presenting Problem: HPI HPI: Dari is a and is at 20w3d. She presents today for evaluation of her blood glucose values and co management . She has been diagnosed with Type II DM. The disease course is stable. She Dari denies nausea, vomiting, visual disturbance, headaches, epigastric pain, abdominal pain, cramping, regular contractions, leakage of fluid, and/or vaginal bleeding. Overall, she feels well and has no complaints. Her treatment includes ADA diet and insulin. She appears to be compliant most of the time. Blood glucose reading have been reviewed. Fasting are all at target values (less than 90). One hour postprandial are all at the goal (less than 140) Her insulin dosage will be: NPH 12 at bedtime. Past Medical History: Past Medical History: Diagnosis Date Anxiety and depression referral made to behavioral health services Anxiety and depression Asthma Chronic back pain Gastrointestinal complaints, nonspecific GERD (gastroesophageal reflux disease) History of Asthma History of pre-eclampsia IBS (irritable bowel syndrome) Iron deficiency anemia supplement ordered Obesity (BMI 30-39.9) Ovarian cyst, left PCOS (polycystic ovarian syndrome) Scoliosis Past Surgical History: Procedure Laterality Date BREAST REDUCTION SURGERY SECTION HIP SURGERY KNEE SURGERY LAPAROSCOPIC APPENDECTOMY TONSILLECTOMY AND ADENOIDECTOMY Medications: Outpatient Encounter Medications as of 10/05/2019 Medication Sig Dispense Refill ARTEMIO 275 MG/1.1ML SOAJ Injection Inject 275 mg into the muscle once a week ONE TOUCH ULTRA TEST test strip use as directed FASTING AND 2 HOURS AFTER EACH MEAL BD INSULIN SYRINGE U/F 31G X 5/16 0.5 ML MISC use as directed once daily Arkafi-GgHli-YaRyjSi-FA-O vernon (OB COMPLETE PETITE) 35-5-1-200 MG CAPS gummies daily aspirin 81 MG chewable tablet Take 81 mg by mouth daily HUMULIN N 100 UNIT/ML SUSP injection Inject 8 units subcutaneously qhs (Patient taking differently: Inject 12 units subcutaneously qhs) 30 mL 5 Progesterone 50 MG SUPP Insert one capsule per vagina qhs 30 Suppository 0 ondansetron (ZOFRAN) 4 MG tablet Take 4 mg by mouth as needed No facility-administered encounter medications on file as of 10/05/2019. Allergies: Allergies Allergen Reactions Naproxen Other (See Comments) Broke out in sweats, nightmares and all did was sleep Varenicline Other (See Comments) Vomiting, diarrhea, bad dreams, restlessness, insomnia ( Chantix ) Family Medical History: Family History Problem Relation Age of Onset Depression Mother Lupus Mother Diabetes Mellitus II Maternal Grandmother Lupus Maternal Grandmother Diabetes Mellitus II Maternal Grandfather Heart Disease Maternal Grandfather Cancer Maternal Grandfather Mult Sclerosis Maternal Aunt Social History: Social History Socioeconomic History Marital status: Spouse name: None Number of children: None Years of education: None Highest education level: None Occupational History None Social Needs Financial resource strain: None Food insecurity Worry: None Inability: None Transportation needs Medical: None Non-medical: None Tobacco Use Smoking status: Former Smoker Packs/day: 0.00 Quit date: 2011 Years since quittin.3 Smokeless tobacco: Never Used Substance and Sexual Activity Alcohol use: Never Frequency: Never Drug use: Never Sexual activity: Yes Partners: Male Lifestyle Physical activity Days per week: None Minutes per session: None Stress: None Relationships Social connections Talks on phone: None Gets together: None Attends muslim service: None Active member of club or organization: None Attends meetings of clubs or organizations: None Relationship status: None Intimate partner violence Fear of current or ex partner: None Emotionally abused: None Physically abused: None Forced sexual activity: None Other Topics Concern None Social History Narrative None Physical Exam: Vitals Extended Movement: Present Vaginal Bleeding: Absent Cramps / Contractions: Absent Mucous Discharge: Absent Assessment/Plan: Dari Aparicio is a 29 y.o. at 20w3d with: Active Non-Hospital Problems Diagnosis Date Noted Pre-existing type 2 diabetes mellitus in in second trimester 09/04/2019 Patient met with Nutrition. Currently taking NPH 8 units qhs (weight base not started due to fasting hyperglycemia only). Reviewed glucose log- increase NPH to 12 units. Continue low dose aspirin 10/03/2019: - Recently diagnosed Type II DM - No other co morbidities - Good glycemic control - All values are at target (fasting and postprandial) - On 17 P. I explained to her the potential for needing more insulin secondary to 17 P therapy - echocardiogram is scheduled at 22 weeks Supervision of other high risk , antepartum 09/04/2019 COMANAGE PLAN OF CARE MD/OB APPOINTMENTS Genetic screening: per OB How often should patient be evaluated? Q 1-2 weeks prn diabetes until 32 weeks then weekly until delivery Work restrictions: NA EVALUATION surveillance: 2x per week starting at 32 weeks Ultrasound: growth Q4, Cervical length screening echocardiogram DELIVERY PLAN Hospital: [facility] Repeat CD at 39 weeks or sooner if indicated. GBS culture: Contraception: : recommended Reviewed 10/03/2019 Anxiety and depression Patient with anxiety and depression- she is very anxious now given her prior outcome. Denies suicidal and homicidal ideation Referral to Dr. Mcwilliams History of delivery 02/01/2019 - She had a loss at 17 to 18 weeks of gestation after having the diagnosis of placenta previa. - The clinical picture is not suggestive of cervical insufficiency. She had heavy vaginal bleeding that was associated with severe pain. The placenta was delivered before the fetus - The clinical picture is suggestive of a combination of placenta previa and abruption - I explained to her that the risk of recurrence of the abruption is small. She has no risk factor (no hypertension and not a smoker) - Her partner has low sperm motility. Follow up with JORDAN may be needed - For this : 1. Baby aspirin a day after 12 weeks to prevent preeclampsia. She had preeclampsia in the first (she is taking this) 2. Serial measurements of the cervix from 16 weeks to 24 weeks to rule out cervical shortening 3. If cervical shortening is noted (<25 mm), cerclage will be indicated 4. 17 OHP therapy from 16 weeks to 36 weeks 10/03/2019: Reviewed Follow up two week telemedicine visit. The total patient time of the visit was 20 minutes, of which greater than 50% of the time was spent counseling and coordinating care. [facility] Progress Noteon 09-11-[address] Authentication Interface Message Text DIABETES AND PROGRAM COMANAGEMENT This is a telemedicine (video) visit requested by the patient that was performed with the originating site at home and the distant site at the providers office. This visit occurred during the Coronavirus (COVID-19) Public Health Emergency. Referring/Requesting Provider: Azucena Cadena MD CHIEF COMPLAINT: GDMA2 HISTORY OF PRESENT ILLNESS: Dair is a 29 y.o. at 17w0d with GDMA2 on NPH qhs. Blood glucose record was reviewed. She continues to have fasting hyperglycemia. Denies complaints today. OB History Para Term AB Living 3 1 1 1 1 SAB TAB Ectopic Multiple Live Births 1 1 # Outcome Date GA Lbr Alcides/2nd Weight Sex Delivery Anes PTL Lv 3 Current 2 SAB 11/20/18 17w0d F FD Comments: cervical insufficiency vs. complication of previa Complications: Placenta Previa 1 Term 04/19/12 39w0d 2.906 kg F CS-LTranv EPI N VIVIANA Complications: Failure to Progress in First Stage, Preeclampsia Obstetric Comments 2011 CS for preeclampsia after IOL. The CS was done for failure to progress Past Medical History: Diagnosis Date ? Anxiety and depression referral made to behavioral health services ? Anxiety and depression ? Asthma ? Chronic back pain ? Gastrointestinal complaints, nonspecific ? GERD (gastroesophageal reflux disease) ? History of Asthma ? History of pre-eclampsia ? IBS (irritable bowel syndrome) ? Iron deficiency anemia supplement ordered ? Obesity (BMI 30-39.9) ? Ovarian cyst, left ? PCOS (polycystic ovarian syndrome) ? Scoliosis Past Surgical History: Procedure Laterality Date ? BREAST REDUCTION SURGERY ? SECTION ? HIP SURGERY ? KNEE SURGERY ? LAPAROSCOPIC APPENDECTOMY ? TONSILLECTOMY AND ADENOIDECTOMY Outpatient Medications Marked as Taking for the 09/11/19 encounter (Telehealth) with Nicole Escobar MD Medication Sig Dispense Refill ? ONE TOUCH ULTRA TEST test strip use as directed FASTING AND 2 HOURS AFTER EACH MEAL ? BD INSULIN SYRINGE U/F 31G X 5/16 0.5 ML MISC use as directed once daily ? Nqkyua-EjLrr-FeGneQu-FA-O vernon (OB COMPLETE PETITE) 35-5-1-200 MG CAPS gummies daily ? aspirin 81 MG chewable tablet Take 81 mg by mouth daily ? HUMULIN N 100 UNIT/ML SUSP injection Inject 8 units subcutaneously qhs 30 mL 5 Allergies Allergen Reactions ? Naproxen Other (See Comments) Broke out in sweats, nightmares and all did was sleep ? Varenicline Other (See Comments) Vomiting, diarrhea, bad dreams, restlessness, insomnia ( Chantix ) PHYSICAL EXAM: VITAL SIGNS: Wt 85.1 kg (187 lb 9.6 oz) LMP 05/15/2019 BMI 35.45 kg/m AAOx3, NAD IMPRESSION AND RECOMMENDATIONS: Dari is a 29 y.o. at 17w0d with Active Non-Hospital Problems Diagnosis Date Noted ? Pre-existing type 2 diabetes mellitus in in second trimester 09/04/2019 Patient met with Nutrition. Currently taking NPH 8 units qhs (weight base not started due to fasting hyperglycemia only). Reviewed glucose log- increase NPH to 12 units. Continue low dose aspirin ? Supervision of other high risk , antepartum 09/04/2019 COMANAGE PLAN OF CARE MD/OB APPOINTMENTS Genetic screening: per OB How often should patient be evaluated? Q 1-2 weeks prn diabetes until 32 weeks then weekly until delivery Work restrictions: NA EVALUATION surveillance: 2x per week starting at 32 weeks Ultrasound: growth Q4, Cervical length screening echocardiogram DELIVERY PLAN Hospital: [facility] Repeat CD at 39 weeks or sooner if indicated. GBS culture: Contraception: : recommended ? Anxiety and depression Patient with anxiety and depression- she is very anxious now given her prior outcome. Denies suicidal and homicidal ideation Referral to Dr. Mcwilliams ? Encounter for preconception consultation 02/01/2019 - Multivitamins including folic acid 04 mg to minimize the risk for anomalies (ONTD, CHD, and Cleft lip and palate) - Complete vaccinations schedule per ACOG recommendations - Avoid large fish to avoid mercury poisoning - Achieve ideal body wait. Nutrition consultation is indicated - Occupational hazards: none ? History of delivery 02/01/2019 - She had a loss at 17 to 18 weeks of gestation after having the diagnosis of placenta previa. - The clinical picture is not suggestive of cervical insufficiency. She had heavy vaginal bleeding that was associated with severe pain. The placenta was delivered before the fetus - The clinical picture is suggestive of a combination of placenta previa and abruption - I explained to her that the risk of recurrence of the abruption is small. She has no risk factor (no hypertension and not a smoker) - Her partner has low sperm motility. Follow up with JORDAN may be needed - For this : 1. Baby aspirin a day after 12 weeks to prevent preeclampsia. She had preeclampsia in the first (she is taking this) 2. Serial measurements of the cervix from 16 weeks to 24 weeks to rule out cervical shortening 3. If cervical shortening is noted (<25 mm), cerclage will be indicated 4. 17 OHP therapy from 16 weeks to 36 weeks Follow up in 1 week. The total patient time of the visit was 15 minutes, of which was greater than 50% of the time was spent counseling and coordinating care. [facility] Progress Noteon 09-04-[address] Authentication Interface Message Text This is a telemedicine (video) visit requested by the patient that was performed with the originating site at home and the distant site at the providers office. This visit occurred during the Coronavirus (COVID-19) Public Health Emergency. I spent 30 minutes of medical discussion with the patient via video. [facility] [address] Justice Authentication Interface Message Text DIABETES AND PROGRAM [facility] MATERNAL- MEDICINE CONSULT This appointment was changed to a telehealth visit due to the COVID-19 Pandemic. Referring/Requesting Provider: Azucena Cadena MD PCP: Juan Alfaro MD CHIEF COMPLAINT: Gestational diabetes, suspected pregestational given early onset HISTORY OF PRESENT ILLNESS: Dari is a 29 y.o. at 16w0d who presents for diabetic education and comanagement of care. She had an early glucose challenge test and it was abnormal. She has been checking her glucose values and was started on NPH 4 units qhs. Glucose log reviewed- persistent fasting hyperglycemia. She is struggling with anxiety due to previous loss. Otherwise, denies complaints. OB History Para Term AB Living 3 1 1 1 1 SAB TAB Ectopic Multiple Live Births 1 1 # Outcome Date GA Lbr Alcides/2nd Weight Sex Delivery Anes PTL Lv 3 Current 2 SAB 11/20/18 17w0d F FD Comments: cervical insufficiency vs. complication of previa Complications: Placenta Previa 1 Term 04/19/12 39w0d 2.906 kg F CS-LTranv EPI N VIVIANA Complications: Failure to Progress in First Stage, Preeclampsia Obstetric Comments 2011 CS for preeclampsia after IOL. The CS was done for failure to progress Past Medical History: Diagnosis Date ? Anxiety and depression referral made to behavioral health services ? Anxiety and depression ? Asthma ? Chronic back pain ? Gastrointestinal complaints, nonspecific ? GERD (gastroesophageal reflux disease) ? History of Asthma ? History of pre-eclampsia ? IBS (irritable bowel syndrome) ? Iron deficiency anemia supplement ordered ? Obesity (BMI 30-39.9) ? Ovarian cyst, left ? PCOS (polycystic ovarian syndrome) ? Scoliosis Past Surgical History: Procedure Laterality Date ? BREAST REDUCTION SURGERY ? SECTION ? HIP SURGERY ? KNEE SURGERY ? LAPAROSCOPIC APPENDECTOMY ? TONSILLECTOMY AND ADENOIDECTOMY Family History Problem Relation Age of Onset ? Depression Mother ? Lupus Mother ? Diabetes Mellitus II Maternal Grandmother ? Lupus Maternal Grandmother ? Diabetes Mellitus II Maternal Grandfather ? Heart Disease Maternal Grandfather ? Cancer Maternal Grandfather ? Mult Sclerosis Maternal Aunt Outpatient Medications Marked as Taking for the 09/04/19 encounter (Telehealth) with Nicole Escobar MD Medication Sig Dispense Refill ? ONE TOUCH ULTRA TEST test strip use as directed FASTING AND 2 HOURS AFTER EACH MEAL ? BD INSULIN SYRINGE U/F 31G X /16 0.5 ML MISC use as directed once daily ? ondansetron (ZOFRAN) 4 MG tablet Take 4 mg by mouth as needed ? Oalgrd-OuMnl-NcPwuIh-FA-O vernon (OB COMPLETE PETITE) 35-5-1-200 MG CAPS ? aspirin 81 MG chewable tablet Take by mouth ? HUMULIN N 100 UNIT/ML SUSP injection Inject 8 units subcutaneously qhs 30 mL 5 ? [DISCONTINUED] HUMULIN N 100 UNIT/ML SUSP injection Pt taking 4 units at bedtime ALLERGY: Allergies Allergen Reactions ? Naproxen Other (See Comments) Broke out in sweats, nightmares and all did was sleep ? Varenicline Other (See Comments) Vomiting, diarrhea, bad dreams, restlessness, insomnia ( Chantix ) PHYSICAL EXAM: LMP 05/15/2019 IMPRESSION: 29 y.o. at 16w0d with Active Non-Hospital Problems Diagnosis Date Noted ? Pre-existing type 2 diabetes mellitus in in second trimester 09/04/2019 Patient met with Nutrition today. Currently taking NPH 4 units qhs (weight base not started due to fasting hyperglycemia only). Reviewed glucose log- increase NPH to 8 units. Continue low dose aspirin Consultation today included education on: ?? Optimizing maternal and outcomes in complicated by diabetes ?? An individualized diabetic consistent carbohydrate meal plan created by a registered radiographer who is a certified professional ergonomist ?? At least 30-60 minutes of physical activity 5-7 days per week ?? Self-monitoring blood glucose 4-7 times a day ?? Use of a blood sugar log and food diary ?? When to call our office when blood sugars are outside of goal ?? Risk of developing Type 2 diabetes after delivery ?? Importance of screening ?? Benefits of ?? Importance of family planning for future pregnancies ?? Importance of tobacco avoidance Recommendations: 1. Follow up in our office in 1 week for diabetes co-management. 2. echocardiogram at 22 weeks. 3. Serial growth ultrasounds q 6 weeks starting at 24 weeks' gestation. 4. testing 1 time a week and daily kick counts starting at 32 weeks' gestation. 5. Check TSH, free T4, urine protein:creatinine if not yet done this . 6. Recommend delivery at 39 weeks gestation, unless earlier delivery is indicated. Plans Repeat CD. 7. , recommend consistent carbohydrate diet (calories depends on breast or bottle feeding) and decreasing insulin dose to 1/3 of her insulin requirement at the end of . Recommend prior to any subsequent pregnancies, that her HA1C < 6.5% to decrease the risk of congenital malformations. I recommend she has a follow-up appointment within one week of delivery with our diabetic team, including our pyridine recovery operator and consumer education specialist. ? Supervision of other high risk , antepartum 09/04/2019 COMANAGE PLAN OF CARE MD/OB APPOINTMENTS Genetic screening: per OB How often should patient be evaluated? Q 1-2 weeks prn diabetes until 32 weeks then weekly until delivery Work restrictions: NA EVALUATION surveillance: 1x per week starting at 32 weeks Ultrasound: growth Q4, Cervical length screening echocardiogram DELIVERY PLAN Hospital: [facility] Repeat CD at 39 weeks or sooner if indicated. GBS culture: Contraception: : recommended ? Anxiety and depression Patient with anxiety and depression- she is very anxious now given her prior outcome. Denies suicidal and homicidal ideation Referral to Dr. Mcwilliams ? Encounter for preconception consultation 02/01/2019 - Multivitamins including folic acid 04 mg to minimize the risk for anomalies (ONTD, CHD, and Cleft lip and palate) - Complete vaccinations schedule per ACOG recommendations - Avoid large fish to avoid mercury poisoning - Achieve ideal body wait. Nutrition consultation is indicated - Occupational hazards: none ? History of delivery 02/01/2019 - She had a loss at 17 to 18 weeks of gestation after having the diagnosis of placenta previa. - The clinical picture is not suggestive of cervical insufficiency. She had heavy vaginal bleeding that was associated with severe pain. The placenta was delivered before the fetus - The clinical picture is suggestive of a combination of placenta previa and abruption - I explained to her that the risk of recurrence of the abruption is small. She has no risk factor (no hypertension and not a smoker) - Her partner has low sperm motility. Follow up with JORDAN may be needed - For this : 1. Baby aspirin a day after 12 weeks to prevent preeclampsia. She had preeclampsia in the first (she is taking this) 2. Serial measurements of the cervix from 16 weeks to 24 weeks to rule out cervical shortening 3. If cervical shortening is noted (<25 mm), cerclage will be indicated 4. 17 OHP therapy from 16 weeks to 36 weeks FOLLOW UP: ?? Patient has been scheduled for cervical length ultrasound in 1 week and telehealth visit in 1 week to review glucose values. The total patient time of the visit was 30 minutes, of which was greater than 50% of the time was spent counseling and coordinating care. [facility] Office Visit: ER Follow UP V [facility] 04-19-2017 Documentation of current medications (procedure) Done Invalid Interpretation Code [facility] Documentation of current medications (procedure) T Invalid Interpretation Code [facility] Tobacco smoking status NHIS Never Invalid Interpretation Code [facility] Tobacco use CPHS Never smoker Invalid Interpretation Code [facility] Office Visit: ER Follow UP V [facility] 08-22-2015 General categories [Interpretation] of Cervical or vaginal smear or scraping by Cyto stain Normal Invalid Interpretation Code [facility] Vital Signs Date Time Vital Sign Value Performing Clinician Faci lity 12-09-2023 11:19-0400 Body height 157.5 cm Anai Sutton MD Work Phone: [facility] 12-09-2023 11:19-0400 Body mass index (BMI) [Ratio] 26.08 kg/m2 Anai Sutton MD Work Phone: [facility] 12-09-2023 11:19-0400 Body weight 64.68 kg Anai Sutton MD Work Phone: [facility] 12-09-2023 11:19-0400 Diastolic blood pressure 69 mm[Hg] Anai Stuton MD Work Phone: [facility] 12-09-2023 11:19-0400 Heart rate 71 /min Anai Sutton MD Work Phone: [facility] 12-09-2023 11:19-0400 Systolic blood pressure 117 mm[Hg] Anai Sutton MD Work Phone: [facility] 11-02-2023 08:23-0400 Body height 157.5 cm Anai Sutton MD Work Phone: [facility] 11-02-2023 08:23-0400 Body mass index (BMI) [Ratio] 26.45 kg/m2 Anai Sutton MD Work Phone: [facility] 11-02-2023 08:23-0400 Body weight 65.59 kg Anai Sutton MD Work Phone: [facility] 11-02-2023 08:23-0400 Diastolic blood pressure 68 mm[Hg] Anai Sutton MD Work Phone: [facility] 11-02-2023 08:23-0400 Heart rate 76 /min Anai Sutton MD Work Phone: [facility] 11-02-2023 08:23-0400 Systolic blood pressure 103 mm[Hg] Anai Sutton MD Work Phone: [facility] 08-09-2023 12:50-0400 Body height 156.2 cm Arcadio Nguyễn MD Work Phone: [facility] 08-09-2023 12:50-0400 Body mass index (BMI) [Ratio] 25.41 kg/m2 Arcadio Nguyễn MD Work Phone: [facility] 08-09-2023 12:50-0400 Body temperature 98.8 [degF] Arcadio Nguyễn MD Work Phone: [facility] 08-09-2023 12:50-0400 Body weight 62.01 kg Arcadio Nguyễn MD Work Phone: [facility] 07-29-2023 11:32-0500 Body height 157.5 cm Anai Sutton MD Work Phone: [facility] 07-29-2023 11:32-0500 Body mass index (BMI) [Ratio] 25.39 kg/m2 Anai Sutton MD Work Phone: [facility] 07-29-2023 11:32-0500 Body weight 62.96 kg Anai Sutton MD Work Phone: [facility] 07-29-2023 11:32-0500 Diastolic blood pressure 68 mm[Hg] Anai Sutton MD Work Phone: [facility] 07-29-2023 11:32-0500 Heart rate 73 /min Anai Sutton MD Work Phone: [facility] 07-29-2023 11:32-0500 Systolic blood pressure 104 mm[Hg] Anai Sutton MD Work Phone: [facility] 06-03-2023 12:01-0500 Body height 157.5 cm Anai Sutton MD Work Phone: [facility] 06-03-2023 12:01-0500 Body mass index (BMI) [Ratio] 25.75 kg/m2 Anai Sutton MD Work Phone: [facility] 06-03-2023 12:01-0500 Body weight 63.87 kg Anai Sutton MD Work Phone: [facility] 06-03-2023 12:01-0500 Diastolic blood pressure 72 mm[Hg] Anai Sutton MD Work Phone: [facility] 06-03-2023 12:01-0500 Heart rate 80 /min Anai Sutton MD Work Phone: [facility] 06-03-2023 12:01-0500 Systolic blood pressure 108 mm[Hg] Anai Sutton MD Work Phone: [facility] 04-29-2023 14:01-0500 Body height 157.5 cm Anai Sutton MD Work Phone: [facility] 04-29-2023 14:01-0500 Body mass index (BMI) [Ratio] 27.53 kg/m2 Anai Sutton MD Work Phone: [facility] 04-29-2023 14:01-0500 Body weight 68.27 kg Anai Sutton MD Work Phone: [facility] 04-29-2023 14:01-0500 Diastolic blood pressure 76 mm[Hg] Anai Sutton MD Work Phone: [facility] 04-29-2023 14:01-0500 Heart rate 68 /min Anai Sutton MD Work Phone: [facility] 04-29-2023 14:01-0500 Systolic blood pressure 113 mm[Hg] Anai Sutton MD Work Phone: [facility] 03-25-2023 11:04-0400 Body height 157.5 cm Anai Sutton MD Work Phone: [facility] 03-25-2023 11:04-0400 Body mass index (BMI) [Ratio] 28.35 kg/m2 Anai Sutton MD Work Phone: [facility] 03-25-2023 11:04-0400 Body weight 70.31 kg Anai Sutton MD Work Phone: [facility] 03-25-2023 11:04-0400 Diastolic blood pressure 60 mm[Hg] Anai Sutton MD Work Phone: [facility] 03-25-2023 11:04-0400 Heart rate 78 /min Anai Sutton MD Work Phone: [facility] 03-25-2023 11:04-0400 Systolic blood pressure 91 mm[Hg] Anai Sutton MD Work Phone: [facility] 02-25-2023 14:06-0400 Body height 157.5 cm Anai Sutton MD Work Phone: [facility] 02-25-2023 14:06-0400 Body mass index (BMI) [Ratio] 28.97 kg/m2 Anai Sutton MD Work Phone: [facility] 02-25-2023 14:06-0400 Body weight 71.85 kg Anai Sutton MD Work Phone: [facility] 02-25-2023 14:06-0400 Diastolic blood pressure 64 mm[Hg] Anai Sutton MD Work Phone: [facility] 02-25-2023 14:06-0400 Heart rate 76 /min Anai Sutton MD Work Phone: [facility] 02-25-2023 14:06-0400 Systolic blood pressure 96 mm[Hg] Anai Sutton MD Work Phone: [facility] 01-19-2023 15:20-0400 Body height 157.5 cm Anai Sutton MD Work Phone: [facility] 01-19-2023 15:20-0400 Body mass index (BMI) [Ratio] 30.25 kg/m2 Anai Sutton MD Work Phone: [facility] 01-19-2023 15:20-0400 Body weight 75.03 kg Anai Sutton MD Work Phone: [facility] 01-19-2023 15:20-0400 Diastolic blood pressure 67 mm[Hg] Anai Sutton MD Work Phone: [facility] 01-19-2023 15:20-0400 Heart rate 67 /min Anai Sutton MD Work Phone: [facility] 01-19-2023 15:20-0400 Systolic blood pressure 99 mm[Hg] Anai Sutton MD Work Phone: [facility] 12-15-2022 14:50-0400 Body height 157.5 cm Anai Sutton MD Work Phone: [facility] 12-15-2022 14:50-0400 Body mass index (BMI) [Ratio] 30.91 kg/m2 Anai Sutton MD Work Phone: [facility] 12-15-2022 14:50-0400 Body weight 76.66 kg Anai Sutton MD Work Phone: [facility] 12-15-2022 14:50-0400 Diastolic blood pressure 69 mm[Hg] Anai Sutton MD Work Phone: [facility] 12-15-2022 14:50-0400 Heart rate 74 /min Anai Sutton MD Work Phone: [facility] 12-15-2022 14:50-0400 Systolic blood pressure 103 mm[Hg] Anai Sutton MD Work Phone: [facility] 12-01-2022 11:21-0400 Body height 156.2 cm Hollis Bella MD Work Phone: [facility] 12-01-2022 11:21-0400 Body temperature 96.69 [degF] Hollis Bella MD Work Phone: [facility] 12-01-2022 11:21-0400 Body weight 78.02 kg Hollis Bella MD Work Phone: [facility] 12-01-2022 11:21-0400 Diastolic blood pressure 46 mm[Hg] Hollis Bella MD Work Phone: [facility] 12-01-2022 11:21-0400 Heart rate 85 /min Hollis Bella MD Work Phone: [facility] 12-01-2022 11:21-0400 Systolic blood pressure 103 mm[Hg] Hollis Bella MD Work Phone: [facility] 11-12-2022 09:42-0400 Body height 157.5 cm Anai Sutton MD Work Phone: [facility] 11-12-2022 09:42-0400 Body mass index (BMI) [Ratio] 31.28 kg/m2 Anai Sutton MD Work Phone: [facility] 11-12-2022 09:42-0400 Body weight 77.56 kg Anai Sutton MD Work Phone: [facility] 11-12-2022 09:42-0400 Diastolic blood pressure 72 mm[Hg] Anai Sutton MD Work Phone: [facility] 11-12-2022 09:42-0400 Heart rate 81 /min Anai Sutton MD Work Phone: [facility] 11-12-2022 09:42-0400 Systolic blood pressure 109 mm[Hg] Anai Sutton MD Work Phone: [facility] 08-17-2022 18:13-0400 Body temperature 99.3 [degF] Dari White APRN.CNP Work Phone: [facility] 08-17-2022 18:13-0400 Body weight 76.57 kg Dari White COMMUNITY REPRESENTATIVE.CAMERA ENGINEER Work Phone: [facility] 08-17-2022 18:13-0400 Diastolic blood pressure 90 mm[Hg] Dari White COMMUNITY REPRESENTATIVE.CAMERA ENGINEER Work Phone: [facility] 08-17-2022 18:13-0400 Heart rate 102 /min Dari White COMMUNITY REPRESENTATIVE.CAMERA ENGINEER Work Phone: [facility] 08-17-2022 18:13-0400 Respiratory rate 16 /min Dari White COMMUNITY REPRESENTATIVE.CAMERA ENGINEER Work Phone: [facility] 08-17-2022 18:13-0400 SaO2% (BldA) [Mass fraction] 99 % Dari White COMMUNITY REPRESENTATIVE.CAMERA ENGINEER Work Phone: [facility] 08-17-2022 18:13-0400 Systolic blood pressure 136 mm[Hg] Dari White COMMUNITY REPRESENTATIVE.CAMERA ENGINEER Work Phone: [facility] 01-11-2022 18:23-0400 Body temperature 98.8 [degF] Dari White COMMUNITY REPRESENTATIVE.CAMERA ENGINEER Work Phone: [facility] 01-11-2022 18:23-0400 Body weight 82.1 kg Dari White COMMUNITY REPRESENTATIVE.CAMERA ENGINEER Work Phone: [facility] 01-11-2022 18:23-0400 Diastolic blood pressure 84 mm[Hg] Dari White COMMUNITY REPRESENTATIVE.CAMERA ENGINEER Work Phone: [facility] 01-11-2022 18:23-0400 Heart rate 102 /min Dari White COMMUNITY REPRESENTATIVE.CAMERA ENGINEER Work Phone: [facility] 01-11-2022 18:23-0400 Respiratory rate 16 /min Dari White COMMUNITY REPRESENTATIVE.CAMERA ENGINEER Work Phone: [facility] 01-11-2022 18:23-0400 SaO2% (BldA) [Mass fraction] 99 % Dari White COMMUNITY REPRESENTATIVE.CAMERA ENGINEER Work Phone: [facility] 01-11-2022 18:23-0400 Systolic blood pressure 142 mm[Hg] Dari Rajan RAMACHANDRAN.CAMERA ENGINEER Work Phone: [facility] Encounters Encounter Date Encounter Type Care Provider Facility Start: 01-10-2024 End: 01-11-2024 Refill Anai Sutton MD Work Phone: [facility] Comment on above: Insulin resistance Start: 12-09-2023 End: 12-09-2023 Office outpatient visit 15 minutes Anai Sutton MD Work Phone: [facility] Comment on above: Insulin resistance ( Primary Dx); BMI 26.0-26.9,adult; Overweight (BMI 25.0-29.9) Start: 12-09-2023 End: 12-09-[address] [facility] Start: 11-30-2023 End: 11-30-2023 Telephone encounter Anai Sutton MD Work Phone: [facility] Comment on above: Results (CT Scan) Start: 11-29-2023 End: 11-30-2023 Refill Anai Sutton MD Work Phone: [facility] Comment on above: Insulin resistance Start: 11-23-2023 End: 11-23-2023 Telephone encounter Anai Sutton MD Work Phone: [facility] Start: 11-02-2023 End: 11-02-2023 Office outpatient visit 15 minutes Anai Sutton MD Work Phone: [facility] Comment on above: Overweight (BMI 25.0 -29.9) (Primary Dx); Insulin resistance; BMI 26.0-26.9,adult Start: 11-02-2023 End: 11-02-2023 ambulatory [facility] Start: 08-09-2023 End: 08-09-2023 [facility] Start: 08-09-2023 End: 08-09-2023 Office outpatient new 45 minutes Arcadio Nguyễn MD Work Phone: [facility] [place] Comment on above: Chronic maxillary si nusitis (Primary Dx); Chronic migraine without aura without status migrainosus, not intractable; Non-seasonal allergic rhinitis, unspecified trigger Start: 07-29-2023 End: 07-29-2023 Office outpatient visit 15 minutes Anai Sutton MD Work Phone: [facility] Comment on above: Insulin resistance ( Primary Dx); BMI 25.0-25.9,adult; Overweight (BMI 25.0-29.9) Start: 07-29-2023 End: 07-29-[address] [facility] Start: 07-22-2023 Telephone encounter Lory lan DO Work Phone: [employer] Comment on above: Prescription Refills Start: 07-22-2023 End: 07-22-2023 ambulatory LORY DEL CASTILLO Facility:[facility] Start: 07-22-2023 End: 07-22-2023 Patient encounter procedure Lory Del Castillo DO Work Phone: [employer] Comment on above: Acne vulgaris (Prima ry Dx); Post-inflammatory hyperpigmentation; Generalized hyperhidrosis Start: 06-14-2023 End: 06-14-2023 ambulatory LORY DEL CASTILLO Facility:[facility] Start: 06-03-2023 End: 06-03-[address] [facility] Start: 06-03-2023 End: 06-03-2023 Office outpatient visit 15 minutes Anai Sutton MD Work Phone: [facility] Comment on above: Insulin resistance ( Primary Dx); BMI 25.0-25.9,adult; Overweight (BMI 25.0-29.9) Start: 04-29-2023 End: 04-29-2023 Office outpatient visit 15 minutes Anai Sutton MD Work Phone: [facility] Comment on above: Insulin resistance ( Primary Dx); BMI 27.0-27.9,adult; Overweight (BMI 25.0-29.9) Start: 04-29-2023 End: 04-29-[address] [facility] Start: 03-25-2023 End: 03-25-2023 Office outpatient visit 15 minutes Anai Sutton MD Work Phone: [facility] Comment on above: Insulin resistance ( Primary Dx); BMI 28.0-28.9,adult; Overweight (BMI 25.0-29.9) Start: 03-25-2023 End: 03-25-[address] [facility] Start: 02-25-2023 End: 02-25-2023 Office outpatient visit 15 minutes Anai Sutton MD Work Phone: [facility] Comment on above: Insulin resistance ( Primary Dx); BMI 28.0-28.9,adult; Overweight (BMI 25.0-29.9) Start: 02-10-2023 Refill Anai Sutton MD Work Phone: [facility] Comment on above: Insulin resistance Start: 01-19-2023 End: 01-19-2023 Office outpatient visit 15 minutes Anai Sutton MD Work Phone: [facility] Comment on above: Insulin resistance ( Primary Dx); BMI 30.0-30.9,adult; Class 1 obesity without serious comorbidity with body mass index (BMI) of 30.0 to 30.9 in adult, unspecified obesity type Start: 01-12-2023 End: 01-12-2023 ambulatory MEGA CORDOVA Facility:[facility] Start: 01-12-2023 End: 01-12-2023 Patient encounter procedure Lynnette Valdovinos PA-C Work Phone: [facility] Comment on above: Abdominal pain, unsp ecified abdominal location (Primary Dx) Start: 01-05-2023 Refill Anai Sutton MD Work Phone: [facility] Start: 12-15-2022 End: 12-15-2022 Office outpatient visit 15 minutes Anai Sutton MD Work Phone: [facility] Comment on above: Insulin resistance ( Primary Dx); BMI 30.0-30.9,adult; Class 1 obesity without serious comorbidity with body mass index (BMI) of 30.0 to 30.9 in adult, unspecified obesity type Start: 12-01-2022 Chart abstracting Hollis german MD Work Phone: [facility] Comment on above: PHOTOS TAKEN Start: 12-01-2022 End: 12-02-2022 ambulatory MEGA OSORIONGER Facility:[facility] Start: 12-01-2022 End: 12-01-2022 Patient encounter procedure Hollis Bella MD Work Phone: [facility] Comment on above: Diastasis recti (Brenda polly Dx); Localized adiposity Start: 11-12-2022 End: 11-12-2022 Office outpatient visit 25 minutes Anai Sutton MD Work Phone: [facility] Comment on above: BMI 31.0-31.9,adult (Primary Dx); Class 1 obesity with serious comorbidity and body mass index (BMI) of 31.0 to 31.9 in adult, unspecified obesity type; JAZZMINE (obstructive sleep apnea); Insulin resistance Start: 08-17-2022 End: 08-17-2022 ambulatory MEGA CORDOVA Facility:[facility] Start: 08-17-2022 End: 08-17-2022 Patient encounter procedure Dari White APRN.CNP Work Phone: [facility] Comment on above: Acute otitis media, bilateral (Primary Dx); Rhinosinusitis Start: 01-11-2022 End: 01-11-2022 Patient encounter procedure Dari White APRN.CAMERA ENGINEER Work Phone: [facility] Comment on above: Acute otitis media, right (Primary Dx) Start: 04-30-2020 End: 04-30-2020 Subsequent hospital visit by physician Zac Poole Work Phone: [facility] Comment on above: Arrived Procedures Date Procedure Procedure Detail Performing Clinician Start: 06-19-2021 Lipid 1996 panel - S ana or Plasma Anai Sutton MD Work Phone: Start: 04-30-2020 Mri any jt lower ext rem w/contrast material Zac Poole Work Phone: Start: 04-30-2020 Arthrocentesis aspir &/inj major jt/bursa w/o us Zac Poole Work Phone: Plan of Treatment Date Care Activity Detail Author Start: 2050 RSV Immunization age d 60 or older (1 - 1-dose 60+ series) RSV Immunization aged 60 or older (1 - 1-dose 60+ series) [facility] Start: 2040 Zoster Vaccines (1 o f 2) Zoster Vaccines (1 of 2) [facility] Start: 11-15-2029 DTaP/Tdap/Td vaccine (8 - Td) DTaP/Tdap/Td vaccine (8 - Td) [place], [place] Start: 11-15-2029 DTaP/Tdap/Td Vaccine s (9 - Td or Tdap) DTaP/Tdap/Td Vaccines (9 - Td or Tdap) [facility] Start: 11-15-2029 Tetanus vaccination Tetanus: Every 1 0yrs [facility] Start: 11-15-2029 Urine microalbumin profile DTaP,Tdap,Td Vaccine (9 - Td or Tdap) [facility] Start: 06-19-2026 Lipid panel Lipid Panel [facility] Start: 02-03-2024 End: 02-03-2024 Patient encounter procedure 02/03/2024 1:10 PM EDT Office Visit [facility] [address] [place] [address] Anai Sutton MD [address] [place] [address] [facility] Start: 01-22-2024 Influenza vaccination S [facility] Start: 01-11-2024 End: 01-11-2024 Patient encounter procedure 01/11/2024 3:40 PM EDT Office Visit [facility] [address] [place] [phone] Anai Sutton MD [address] [place] [address] [facility] Start: 12-09-2023 End: 12-09-2023 Patient encounter procedure 12/09/2023 8:20 AM EDT Office Visit [facility] [address] [place] [phone] Anai Sutton MD [address] [place], [place] [phone] [facility] Start: 09-12-2023 End: 09-12-2023 Patient encounter procedure 09/12/2023 1:00 PM EDT Office Visit [facility] [address] [place] [phone] Arcadio Nguyễn MD [address] [place] [address] [facility] Start: 09-02-2023 End: 09-02-2023 Patient encounter procedure 09/02/2023 11:30 AM EDT Office Visit [facility] [address] [place] [phone] Anai Sutton MD [address] [place], [place] [phone] [facility] Start: 07-29-2023 End: 07-29-2023 Patient encounter procedure 07/29/2023 11:40 AM EST Office Visit [facility] [address] [place] [phone] Anai Sutton MD [address] [place], [place] [phone] [facility] Start: 06-03-2023 End: 06-03-2023 Patient encounter procedure 06/03/2023 11:40 AM EST Office Visit [facility] [address] [place] [phone] Anai Sutton MD [address] [place], [place] [phone] [facility] Start: 05-23-2023 Medicare Advantage Annual Wellness Visit Medicare Advantage Annual Wellness Visit [facility] Start: 04-29-2023 End: 04-29-2023 Patient encounter procedure 04/29/2023 2:00 PM EST Office Visit [facility] [address] [place] [phone] Anai Sutton MD [address] [place], [place] [phone] [facility] Start: 03-25-2023 End: 03-25-2023 Patient encounter procedure 03/25/2023 11:10 AM EDT Office Visit [facility] [address] [place] [phone] Anai Sutton MD [address] [place], [place] [phone] [facility] Start: 02-25-2023 End: 02-25-2023 Patient encounter procedure 02/25/2023 2:10 PM EDT Office Visit [facility] [address] [place] [phone] Anai Sutton MD [address] [place], [place] [phone] [facility] Start: 01-21-2023 COVID-19 Vaccine ( season) COVID-19 Vaccine ( season) [facility] Start: 01-21-2023 Influenza vaccination [facility] Start: 01-19-2023 End: 01-19-2023 Patient encounter procedure 01/19/2023 3:20 PM EDT Office Visit [facility] [address] [place] [phone] Anai Sutton MD [address] [place] [address] [facility] Start: 12-15-2022 End: 12-15-2022 Patient encounter procedure 12/15/2022 3:10 PM EDT Office Visit [facility] [address] [place] [address] Anai Sutton MD [address] [place], [place] [address] [facility] Start: 06-19-2022 Diabetes mellitus screening Diabetes Screening [facility] Start: 02-18-2022 Pneumococcal Vaccine : Pediatrics (0 to 5 Years) and At-Risk Patients (6 to 64 Years) (2 of 2 - PCV) Pneumococcal Vaccine: Pediatrics (0 to 5 Years) and At-Risk Patients (6 to 64 Years) (2 of 2 - PCV) [facility] Start: 01-21-2022 Influenza vaccination INFLUENZA (#1) [facility] Start: 10-13-2021 PAP TESTING PAP TESTING [facility] Start: 10-13-2021 Screening for malign ant neoplasm of cervix Pap Testing [facility] Start: 09-15-2021 COVID-19 VACCINE (4 - Booster for Moderna series) COVID-19 VACCINE (4 - Booster for Moderna series) [facility] Start: 09-15-2021 COVID-19 VACCINE (4 - Moderna series) COVID-19 VACCINE (4 - Moderna series) [facility] Start: 2020 HPV TESTING HPV TESTING [facility] Start: 2020 Screening for malign ant neoplasm of cervix [facility] Start: 01-22-2020 Influenza vaccination Flu vaccine (# 1) [facility] [place] [place] Start: 06-23-2015 Urine microalbumin profile DTAP,TDAP,TD (7 - Td or Tdap) [facility] Start: 2011 Screening for malign ant neoplasm of cervix [facility] Start: 2008 ANNUAL PCP TEAM MIXING PAN TENDER ENA DISEASE VISIT ANNUAL PCP TEAM CHRONIC DISEASE VISIT [facility] Start: 2008 Hepatitis C screening Hepatitis C Sc reening [facility] Start: 2008 SPIROMETRY SPIROMETRY [facility] Start: 2005 HIV screening [facility] Start: 04-26-2005 Varicella vaccination S [facility] Start: 2002 Depression Screening [facility] Start: 1996 PNEUMOCOCCAL (1 - PCV) PNEUMOCOCCAL (1 - PCV) [facility] Start: 1993 History and physical examination, annual for health maintenance Wellness Visit [facility] Start: 1991 Varicella vaccine (1 of 2 - 2-dose childhood series) Varicella vaccine (1 of 2 - 2-dose childhood series) [place], [place] Start: 1990 HIV screening HIV Screening [facility] Start: 1990 Medicare Advantage Annual Wellness Visit (AWV) Medicare Advantage Annual Wellness Visit (AWV) [facility] End: 08-08-2024 CT Sinuses WO contrast CT Sinus Stealth Without Contrast Imaging Routine Chronic maxillary sinusitis 1 Occurrences starting 08/09/2023 until 08/08/2024 [facility] Work Phone: Comment on above: 1 Occurrences starti ng 08/09/2023 until 08/08/2024 [place] [facility] Immunizations Immunization Date Immunization Notes Care Provider Fa [facility] 02-01-2022 influenza virus vaccine, unspecified formulation Anai Sutton MD Work Phone: [facility] 02-13-2021 COVID-19 vaccine, fu ll dose (MODERNA) Dari White COMMUNITY REPRESENTATIVE.[facility] Work Phone: [facility] 07-27-2007 human papilloma viru s vaccine, quadrivalent Dari White COMMUNITY REPRESENTATIVE.CAMERA ENGINEER Work Phone: [facility] Work Phone: 02-14-2007 human papilloma viru s vaccine, quadrivalent Dari White COMMUNITY REPRESENTATIVE.CAMERA ENGINEER Work Phone: [facility] 01-10-2007 human papilloma viru s vaccine, quadrivalent Dari White COMMUNITY REPRESENTATIVE.CAMERA ENGINEER Work Phone: [facility] Work Phone: 01-10-2007 Meningococcal, MCV4, unspecified conjugate formulation(groups A, C, Y and W-135) Dari White COMMUNITY REPRESENTATIVE.[facility] Work Phone: [facility] Work Phone: 02-07-2006 hepatitis B vaccine, pediatric or pediatric/adolescent dosage Darirachael White COMMUNITY REPRESENTATIVE.[facility] Work Phone: [facility] Work Phone: 07-29-2005 hepatitis B vaccine, pediatric or pediatric/adolescent dosage Darirachael White COMMUNITY REPRESENTATIVE.[facility] Work Phone: [facility] Work Phone: 06-23-2005 hepatitis B vaccine, pediatric or pediatric/adolescent dosage Darirachael White COMMUNITY REPRESENTATIVE.[facility] Work Phone: [facility] Work Phone: 06-23-2005 tetanus toxoid, redu emmanuel diphtheria toxoid, and acellular pertussis vaccine, adsorbed Darirachael White COMMUNITY REPRESENTATIVE.[facility] Work Phone: [facility] Work Phone: 03-29-2005 influenza virus vaccine, live, attenuated, for intranasal use Dari White COMMUNITY REPRESENTATIVE.[facility] Work Phone: [facility] Work Phone: 07-22-1999 Chicken Pox (disease) Helen White COMMUNITY REPRESENTATIVE.[facility] Work Phone: [facility] Work Phone: 11-21-1995 diphtheria, tetanus toxoids and pertussis vaccine Darirachael White COMMUNITY REPRESENTATIVE.[facility] Work Phone: [facility] Work Phone: 11-21-1995 measles, mumps and rubella virus vaccine Darirachael White COMMUNITY REPRESENTATIVE.[facility] Work Phone: [facility] Work Phone: 11-21-1995 trivalent poliovirus vaccine, live, oral Dari White COMMUNITY REPRESENTATIVE.[facility] Work Phone: [facility] Work Phone: 11-08-1991 diphtheria, tetanus toxoids and pertussis vaccine Darirachael White COMMUNITY REPRESENTATIVE.CAMERA ENGINEER Work Phone: [facility] Work Phone: 11-08-1991 trivalent poliovirus vaccine, live, oral Dari White COMMUNITY REPRESENTATIVE.[facility] Work Phone: [facility] Work Phone: 08-09-1991 haemophilus influenz ae type b vaccine, HbOC conjugate Dari White COMMUNITY REPRESENTATIVE.[facility] Work Phone: [facility] Work Phone: 08-09-1991 measles, mumps and rubella virus vaccine Dari White COMMUNITY REPRESENTATIVE.[facility] Work Phone: [facility] Work Phone: 01-04-1991 haemophilus influenz ae type b vaccine, HbOC conjugate Dari White COMMUNITY REPRESENTATIVE.[facility] Work Phone: [facility] Work Phone: 1990 diphtheria, tetanus toxoids and pertussis vaccine Dari White COMMUNITY REPRESENTATIVE.[facility] Work Phone: [facility] Work Phone: 1990 haemophilus influenz ae type b vaccine, HbOC conjugate Dari White COMMUNITY REPRESENTATIVE.[facility] Work Phone: [facility] Work Phone: 1990 diphtheria, tetanus toxoids and pertussis vaccine Dari White COMMUNITY REPRESENTATIVE.[facility] Work Phone: [facility] Work Phone: 1990 haemophilus influenz ae type b vaccine, HbOC conjugate Dari White COMMUNITY REPRESENTATIVE.[facility] Work Phone: [facility] Work Phone: 1990 trivalent poliovirus vaccine, live, oral Dari White COMMUNITY REPRESENTATIVE.[facility] Work Phone: [facility] Work Phone: 1990 diphtheria, tetanus toxoids and pertussis vaccine Dari White COMMUNITY REPRESENTATIVE.[facility] Work Phone: [facility] Work Phone: 1990 trivalent poliovirus vaccine, live, oral Dari Rajan COMMUNITY REPRESENTATIVE.CAMERA ENGINEER Work Phone: [facility] Work Phone: Payers Date Payer Category Payer Medicare [employer] U[employer] DUAL COMPLETE [id number] 2022-Present [address] [place] [address] Medicare HMO [id number] 2022 Medicare [id number] 2021 Medicaid [id number] 2021 Medicaid [id number] Social History Date Type Detail Facility Tobacco smoking stat [facility] Unknown if ever smoked [facility] Start: 1990 Sex Assigned At Not on file [facility] Start: 01-11-2022 End: 12-09-2023 Tobacco smoking status MNIS Ex-smoker [facility] Work Phone: End: 05-23-2011 History of tobacco use Current smoker [facility] Work Phone: End: 05-23-2011 History of tobacco use Cigarette Smoker [facility] Work Phone: Start: 01-11-2022 End: 12-09-2023 Cigarettes smoked current (pack per day) - Reported 0.5 [facility] Start: 01-11-2022 End: 12-09-2023 Tobacco use and exposure Smokeless tobacco non-user [facility] Work Phone: Start: 01-11-2022 End: 12-09-2023 Alcohol intake Current drinker of alcohol (finding) [facility] Start: 01-11-2022 Tobacco Comment quit 2011 [facility] Start: 01-01-2022 End: 01-19-2023 Exposure to SARS-CoV-2 (event) Not sure [facility] Work Phone: Start: 05-11-2022 End: 12-09-2023 Tobacco use panel [facility] Start: 1990 Sex Assigned At Female [facility] Start: 03-11-2022 Gender identity Identifies as female gender (finding) [facility] Start: 03-11-2022 Sexual orientation Heterosexual (finding) [facility] National Score (1-10 0), lower number is lower risk 77 [facility] Start: 08-09-2023 Tobacco smoking status NHIS Never smoked tobacco [facility] Start: 08-09-2023 Alcohol intake Lifetime non-drinker (finding) [facility] Clinical Notes 01-07-2016 to 12-09-2023 Angelic Vera LPN - 12/09/2023 11:30 AM EDMoshe Sutton MD - 12/09/2023 11:30 AM EDTTelephone Encounter - Angelic Vera LPN - 11/30/2023 2:16 PM Dandre Sutton MD - 11/02/2023 8:40 AM EDT Note Date & Type Note Facility 12-09-2023 History of Present illness Narrative [facility] NON-SURGICAL WEIGHT LOSS MANAGEMENT PROGRAM ROOMING NOTE: FOLLOW UP VISIT Patient: Dari Aparicio Date of : 1990 Service Date: 12/09/2023 Patient History/Assessment Summary: The patient is a pleasant 33 y.o. year old female, who stands Height: 5' 2 (157.5 cm) tall with a weight of Weight: 142 lb 9.6 oz (64.7 kg) pounds, resulting in a BMI of Body mass index is 26.08 kg/m . kg/m2. She is here for follow-up for non-surgical treatment of Obesity Patient has the following question(s): none Pre Program Weight Metrics (CARE Path) Date of Initial Consultation:@FLOWLAST(8961)@ Initial Weight: @FLOWLAST([id number])@ Initial BMI: @FLOWLAST([id number])@ [place] Body Weight: @FLOWLAST([id number])@ Excess Body Weight: @FLOWLAST([id number])@ Body Fat Percentage: Failed to redirect to the Timeline version of the REVFS SmartLink. Subsequent Body Fat Percentage: Failed to redirect to the Timeline version of the REVFS SmartLink. Pre Program Weight Metrics (Epic) (Surgical Wt Loss Management- baseline) This Visit Non-Surgical Subsequent Eval Date: 12/09/23 Height: 5' 2 (157.5 cm) Weight: 142 lb 9.6 oz (64.7 kg) BMI: 26.08 Weight Change: -2 lbs Total Weight Change: <No Previous Non-Surg Weight on File> lbs % EBWL: <UNK>% Subsequent Body Fat %: 31.3 Body Fat % Change: -0.43 Follow Up Weight Metrics Last Three Weights Including Today's Weight: Wt Readings from Last 3 Encounters: 12/09/23 142 lb 9.6 oz (64.7 kg) 11/02/23 144 lb 9.6 oz (65.6 kg) 07/29/23 138 lb 12.8 oz (63 kg) Diabetes Do you currently have diabetes? [...] since last visit: lost 2 lbs over 4 m stable weight regain after stopping ozempic This patient's excess weight is causing the following co-morbid conditions at this time:Other IR Physical Examination: Blood pressure 117/69, pulse 71, height 5' 2 (1.575 m), weight 142 lb 9.6 oz (64.7 kg). General: This patient is calm and [...] Made Towards Goals: 3 month weight goal: 0 6 month weight goal: 0 12 month weight goal: 0 Plan: Obesity stable Continue current management, continue weight loss program Focus on the meal structure, composition and portion control Will start exercise resistance Under stress family issues New medication SSRI Other IR Continue current management, continue weight loss program stable Ozempic dose 0.5 mg new dose Good tolerance Daily miralax [x] Protein goal of 1g protein per [...] updated and completed. documented in this encounter [facility] 12-02-2023 Note Addended by: ANAI SUTTON on: 12/02/2023 07:24 AM Modules accepted: [facility] 12-02-2023 Note Addended by: ANAI SUTTON on: 12/02/2023 07:23 AM Modules accepted: [facility] 11-30-2023 Telephone encounter Note Msg sent to pt that she will need to bring CT results to next OV. [facility] 11-30-2023 Miscellaneous Notes Msg sent to pt that she will need to bring CT results to next OV. Please request CT result. Please let the pt know I need to have the results of CT before I can prescribe ozempic. Thank you. Pt sent msg this morning that she was seen in ER and had ABD CT scan that showed constipation and now using Miralax. Pt states he is unable to come to appt 12-08 due to new employment. Staff made an appt for 12-01. 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 [facility] policy states she needs to have CXR before een in office. Pt also stated in her note need for refill of Ozempic. Do you need to see pt for refill d/t CT scan result? Please advise. Thanks! I called this patient to inform them due to the positive TB test it is in [facility] policy for the patient to have the chest x ray to verify it is not active before proceeding with office visits. I informed the patient to call us back to reschedule once xray is complete. I informed the Medical staff about the medication refill and informed the patient about them speaking to Dr. Sutton about sending in the prescription electronically. documented in this encounter [facility] 11-30-2023 Telephone encounter Note Please request CT result. Please let the pt know I need to have the results of CT before I can prescribe ozempic. Thank you. [facility] 11-30-2023 Telephone encounter Note Pt sent msg this morning that she was seen in ER and had ABD CT scan that showed constipation and now using Miralax. Pt states he is unable to come to appt 12-08 due to new employment. Staff made an appt for 12-01. 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 [facility] policy states she needs to have CXR before een in office. Pt also stated in her note need for refill of Ozempic. Do you need to see pt for refill d/t CT scan result? Please advise. Thanks! [facility] 11-30-2023 Telephone encounter Note I called this patient to inform them due to the positive TB test it is in [facility] policy for the patient to have the chest x ray to verify it is not active before proceeding with office visits. I informed the patient to call us back to reschedule once xray is complete. I informed the Medical staff about the medication refill and informed the patient about them speaking to Dr. Sutton about sending in the prescription electronically. [facility] 11-23-2023 Telephone encounter Note 4 attempts to reach the pt via phone. The pt is not available for the conversation. Voice mail is the only option. [facility] 11-23-2023 Miscellaneous Notes 4 attempts to reach the pt via phone. The pt is not available for the conversation. Voice mail is the only option. documented in this encounter [facility] 11-02-2023 History of Present illness Narrative HPI, PHYSICAL EXAMINATION & PLAN HPI: Patient here today for follow up for non-surgical weight loss management Weight trend since last visit: gain 6 lbs over 4 m stable weight regain after stopping ozempic This patient's excess weight is causing the following co-morbid conditions at this time:Other IR Physical Examination: Blood pressure 103/68, pulse 76, height 5' 2 (1.575 m), weight 144 lb 9.6 oz (65.6 kg). General: This patient is calm and [...] Made Towards Goals: 3 month weight goal: 0 6 month weight goal: 0 12 month weight goal: 0 Plan: Obesity stable Continue current management, continue weight loss program Focus on the meal structure, composition and portion control Will start exercise resistance Under stress family issues Other IR Continue current management, continue weight loss program stable Ozempic dose 0.5 mg new dose Good tolerance [x] Protein goal of 1g [...] performed.Clinical documentation is updated and completed. [facility] NON-SURGICAL WEIGHT LOSS MANAGEMENT PROGRAM ROOMING NOTE: FOLLOW UP VISIT Patient: Dari N Markus Date of : 1990 Service Date: 11/02/2023 Patient History/Assessment Summary: The patient is a pleasant 33 y.o. year old female, who stands Height: 5' 2 (157.5 cm) tall with a weight of Weight: 144 lb 9.6 oz (65.6 kg) pounds, resulting in a BMI of Body mass index is 26.45 kg/m . kg/m2. She is here for follow-up for non-surgical treatment of Over weight Patient has the following question(s): none Pre Program Weight Metrics (CARE Path) Date of Initial Consultation:@FLOWLAST(8961)@ Initial Weight: @FLOWLAST([id number])@ Initial BMI: @FLOWLAST([id number])@ [place] Body Weight: @FLOWLAST([id number])@ Excess Body Weight: @FLOWLAST([id number])@ Body Fat Percentage: Failed to redirect to the Timeline version of the [employer] SmartLink. Subsequent Body Fat Percentage: Failed to redirect to the Timeline version of the [employer] SmartLink. Pre Program Weight Metrics (Epic) (Surgical Wt Loss Management- baseline) This Visit Non-Surgical Subsequent Eval Date: 11/02/23 Height: 5' 2 (157.5 cm) Weight: 144 lb 9.6 oz (65.6 kg) BMI: 26.44 Weight Change: 5.8 lbs Total Weight Change: <No Previous Non-Surg Weight on File> lbs % EBWL: <UNK>% Subsequent Body Fat %: 31.73 Body Fat % Change: 1.27 Follow Up Weight Metrics Last Three Weights Including Today's Weight: Wt Readings from Last 3 Encounters: 11/02/23 144 lb 9.6 oz (65.6 kg) 07/29/23 138 lb 12.8 oz (63 kg) 06/03/23 140 lb 12.8 oz (63.9 kg) Diabetes Do you currently have diabetes? [...] is not on home O2 Completed by: Kiera Hinds MA documented in this encounter [facility] 08-09-2023 History of Present illness Narrative [facility] [address] [facility] [place] [address] [facility] [id number] Dept: [phone] MD Dari Hood 33 y.o. female Patient presents with a chief complaint of Sinusitis (Chronic maxillary sinusitis, new pt) Temp 98.8 F (37.1 C) (Temporal) Ht 5' 1.5 Wt 62 kg (136 lb 11.2 oz) BMI 25.41 kg/m History of Presenting Illness: The patient/caregiver reports a history of complaint with the following features: Onset: started several years ago Timing: recurrent episodes Duration: many years, frequent Urgent Care visits Quality: facial pain, nausea Location: bilateral cheeks and face Severity: pain severe at times Risk factors: history of migraine Alleviating factors: no relief with multiple antibiotic courses, 10 days course initially on Z-queta, then two additional courses, and most recently Clindamycin, no relief with antihistamines Aggravating factors: changes in weather Associated factors: no fever Allergy testing did not show any severe allergens, with only some mild reactivity. Review of systems covering 10 systems is reviewed and pertinent positives and negatives are noted as above. Past Medical History: Diagnosis Date Anxiety Depression Exercise-induced asthma IBS (irritable bowel syndrome) Irregular menses PTSD (post-traumatic stress disorder) Sleep apnea Current Outpatient Medications: albuterol 90 mcg/actuation inhaler, inhale 1 puff by mouth every 4 to 6 hours if needed for 5 days, Disp: , Rfl: clindamycin (CLEOCIN T) 1 % lotion, Apply to affected area in the morning, Disp: , Rfl: dicyclomine (BENTYL) 20 mg tablet, Take 1 (one) tablet (20 mg total) by mouth daily as needed ., Disp: , Rfl: Drysol Dab-O-Matic 20 % external solution, Apply to clean areas at night, Disp: , Rfl: ibuprofen (ADVIL,MOTRIN) 800 MG tablet, Take 1 (one) tablet (800 mg total) by mouth every 8 (eight) hours as needed ., Disp: , Rfl: ondansetron (ZOFRAN-ODT) 4 MG disintegrating tablet, Dissolve 1 (one) tablet (4 mg total) on top of tongue every 4 (four) hours as needed ., Disp: , Rfl: semaglutide (Ozempic) 0.25 mg or 0.5 mg(2 mg/1.5 mL) Pen, Inject 0.5 (one-half) mg under the skin once a week ., Disp: , Rfl: tretinoin (RETIN-A) 0.05 % cream, Apply a pea size amount to the area at night as tolerated, Disp: , Rfl: azelastine (ASTELIN) 137 mcg (0.1 %) nasal spray, 1 (one) spray by Each Nare route 2 (two) times a day ., Disp: 30 mL, Rfl: 12 magnesium oxide (MAG-OX) 400 mg (241.3 mg magnesium) tablet, Take 1 (one) tablet (400 mg total) by mouth daily ., Disp: 90 tablet, Rfl: 3 MULTIVITAMIN ORAL, Take 100 mg by mouth ., Disp: , Rfl: SUMAtriptan (IMITREX) 50 MG tablet, Take 1 (one) tablet (50 mg total) by mouth every 2 (two) hours as needed for migraine Max of 200 mg in 24hrs, do not treat more than 3 times a week ., Disp: 10 tablet, Rfl: 0 Allergies Allergen Reactions Allerg Xt,D.Farinae-D.Pteronys Other (See Comments) Mold Other (See Comments) Naproxen Other (See Comments) Other reaction(s): Other: See Comments Broke out in sweats, nightmares and all did was sleep Other reaction(s): Other, sweats and fever, swells, has nightmares Night sweats, night terrors Broke out in sweats, nightmares and all did was sleep Broke out in sweats, nightmares and all did was sleep Other reaction(s): Other, sweats and fever, swells, has nightmares Broke out in sweats, nightmares and all did was sleep Varenicline Other (See Comments) Other reaction(s): Other: See Comments Vomiting, diarrhea, bad dreams, restlessness, insomnia ( Chantix ) Other reaction(s): night sweats and night terrors, Other, swells, nightmares Night sweats, night terrors Vomiting, diarrhea, bad dreams, restlessness, insomnia Vomiting, diarrhea, bad dreams, restlessness, insomnia ( Chantix ) Other reaction(s): night sweats and night terrors, Other, swells, nightmares Vomiting, diarrhea, bad dreams, restlessness, insomnia Past Surgical History: Procedure Laterality Date adenoid and tonsils APPENDECTOMY BREAST REDUCTION SECTION 2019 HIP SURGERY Right KNEE SURGERY Bilateral Social History Socioeconomic History Marital status: Tobacco Use Smoking status: Never Smokeless tobacco: Never Substance and Sexual Activity Alcohol use: Never Drug use: Never Family History Problem Relation Age of Onset Stroke Father Hypertension Father Rheum arthritis Father Hyperlipidemia Maternal Grandmother Diabetes Maternal Grandmother Cancer Maternal Grandfather Heart failure Maternal Grandfather Diabetes Maternal Grandfather Cancer Paternal Grandfather Heart failure Paternal Grandfather Diabetes Paternal Grandfather Hypertension Paternal Grandfather PHYSICAL EXAM: The patient was examined today 08/09/2023 with findings as follows: CONSTITUTIONAL: General Appearance: well-appearing, nontoxic, alert, no acute distress Communication: understanding at normal conversational tones, normal voicing, speech intelligible HEAD/FACE: Head: atraumatic, normocephalic, no lesions Facial Inspection: no lesions, healthy skin Facial Strength: motor strength normal, symmetric strength, symmetric movement Sinuses: bilateral maxillary sinus tenderness Salivary Glands: no enlargements of parotid glands, no tenderness of parotid glands, no masses of parotid glands, clear salivary flow on palpation from Stensen's ducts, no duct stones of Stensen's duct, no enlargement of submandibular glands, no tenderness of submandibular glands, no masses of submandibular glands, clear salivary flow from Conestoga's ducts, no stones of Conestoga's ducts Temporomandibular Joint: no crepitus with motion, no tenderness on palpation, no trismus, motion symmetric EYES: Pupils: PERRLA, extra-ocular movements intact, no nystagmus, sclera white, no redness of eyes, no watering of eyes EARS: Bilateral External Ears: no pits, no tags Right External Ear: normally formed, no lesions, no mastoid tenderness Left External Ear: normally formed, no lesions, no mastoid tenderness Right External Auditory Canal: normal, healthy skin, no obstructing cerumen, no discharge Left External Auditory Canal: normal, healthy skin, no obstructing cerumen, no discharge Right Tympanic Membrane: normal landmarks, translucent, mobile to pneumatic otoscopy, no perforation Left Tympanic Membrane: normal landmarks, translucent, mobile to pneumatic otoscopy, no perforation Hearing: intact to spoken voice NOSE: Nasal Skin: no lesions, no lacerations, no scars Nasal Dorsum: symmetric with no visible or palpable deformities Nasal Tip: normal symmetric nasal tip, normal nasal valves Nasal Mucosa: boggy Septum: not markedly deformed, midline, no exposed vessels, no bleeding, no septal granuloma Turbinates: normal size and conformation Nasopharynx: normal ORAL CAVITY/MOUTH: Lips, teeth, gums: normal lips, normal gums, dentition intact, no dental pain on palpation Oral Mucosa: normal, moist, no lesions Palate: normal hard palate, normal soft palate, symmetric palatal elevation Floor of Mouth: normal floor of mouth Tongue: normal tongue, no lesions, no edema, no masses, normal mucosa, mobile Tonsils: normal tonsils, symmetric, no lesions Posterior pharynx: normal NECK: Neck: no masses, trachea midline, normal range of motion, no cysts or pits, no tenderness to palpation Thyroid: normal thyroid, no enlargement, no tenderness, no nodules LYMPH NODES: Cervical: no palpable lymph node enlargement SKIN: General Appearance: no lesions, warm and dry, normal turgor, no bruising NEUROLOGICAL SYSTEM: Orientation: oriented to time, oriented to place, oriented to person Cranial Nerves: Cranial Nerves II-XII intact, normal facial movement PSYCHIATRIC: Mood and affect: normal mood, normal affect Assessment and Plan: She presents with a long history of recurrent bilateral facial pain that has been attributed to sinusitis. She has failed to gain and lasting relief with antibiotic or allergy therapy. CT imaging to assess for chronic sinus disease is advised. Migraine as a common cause of recurrent facial pain, which is often weather change is also discussed as a possible cause. She does report photophobia and nausea with these episodes making migraine suspect. Topical antihistamine is also offered as she does have some allergic type nasal engorgement. 1. Chronic maxillary sinusitis azelastine (ASTELIN) 137 mcg (0.1 %) nasal spray CT Sinus Stealth Without Contrast 2. Chronic migraine without aura without status migrainosus, not intractable magnesium oxide (MAG-OX) 400 mg (241.3 mg magnesium) tablet SUMAtriptan (IMITREX) 50 MG tablet 3. Non-seasonal allergic rhinitis, unspecified trigger Return in about 1 month (around 09/09/2023). The patient and/or caregiver is to notify the office if no improvement or worsening of symptoms is noted prior to the scheduled follow-up for sooner evaluation. The patient and/or caregiver is able to state an understanding of these recommendations and is agreeable to the treatment plan. --Arcadio Nguyễn MD on 08/09/2023 at 1:37 PM An electronic signature was used to authenticate this note. Review of Systems Constitutional: Negative. HENT: Positive for sinus pressure and sinus pain. Eyes: Negative. Respiratory: Negative. Cardiovascular: Negative. Gastrointestinal: Negative. Endocrine: Negative. Genitourinary: Negative. Musculoskeletal: Negative. Skin: Negative. Allergic/Immunologic: Positive for environmental allergies. Neurological: Positive for headaches. Hematological: Negative. Psychiatric/Behavioral: Negative. documented in this encounter [facility] 07-29-2023 History of Present illness Narrative [facility] NON-SURGICAL WEIGHT LOSS MANAGEMENT PROGRAM ROOMING NOTE: FOLLOW UP VISIT Patient: Dari Aparicio Date of : 1990 Service Date: 07/29/2023 Patient History/Assessment Summary: The patient is a pleasant 33 y.o. year old female, who stands Height: 5' 2 (157.5 cm) tall with a weight of Weight: 138 lb 12.8 oz (63 kg) pounds, resulting in a BMI of Body mass index is 25.39 kg/m . kg/m2. She is here for follow-up for non-surgical treatment of Over weight Patient has the following question(s): none Pre Program Weight Metrics (CARE Path) Date of Initial Consultation:@FLOWLAST(8961)@ Initial Weight: @FLOWLAST([id number])@ Initial BMI: @FLOWLAST([id number])@ [place] Body Weight: @FLOWLAST([id number])@ Excess Body Weight: @FLOWLAST([id number])@ Body Fat Percentage: Failed to redirect to the Timeline version of the REVFS SmartLink. Subsequent Body Fat Percentage: Failed to redirect to the Timeline version of the REVFS SmartLink. Pre Program Weight Metrics (Epic) (Surgical Wt Loss Management- baseline) This Visit Non-Surgical Subsequent Eval Date: 07/29/23 Height: 5' 2 (157.5 cm) Weight: 138 lb 12.8 oz (63 kg) BMI: 25.38 Weight Change: -2 lbs Total Weight Change: <No Previous Non-Surg Weight on File> lbs % EBWL: <UNK>% Subsequent Body Fat %: 30.46 Body Fat % Change: -0.44 Follow Up Weight Metrics Last Three Weights Including Today's Weight: Wt Readings from Last 3 Encounters: 07/29/23 138 lb 12.8 oz (63 kg) 06/03/23 140 lb 12.8 oz (63.9 kg) 04/29/23 150 lb 8 oz (68.3 kg) Diabetes Do you currently have diabetes? [...] sheet comorbids) Falls Risk Assessment Patient does nottake medications which affect BP or mental status [...] is not on home O2 Completed by: Kiera Hinds MA HPI, PHYSICAL EXAMINATION & PLAN HPI: Patient here today for follow up for non-surgical weight loss management Weight trend since last visit: lost 2 lbs over 2 m stable This patient's excess weight is causing the following co-morbid conditions at this time:Other IR Physical Examination: Blood pressure 104/68, pulse 73, height 5' 2 (1.575 m), weight 138 lb 12.8 oz (63 kg). General: This patient is calm and [...] Made Towards Goals: 3 month weight goal: 0 6 month weight goal: 0 12 month weight goal: 0 Plan: Obesity stable Continue current management, continue weight loss program Focus on the meal structure, composition and portion control Will start exercise resistance Other IR Continue current management, continue weight loss program stable Ozempic dose 0.5 mg new dose Good tolerance [x] Protein goal of 1g [...] updated and completed. documented in this encounter [facility] 07-22-2023 Note HNO ID: [id number] Author: LORY DEL CASTILLO, DO Service: ? Author Type: Physician Type: Progress Notes Filed: 07/22/2023 12:15 Note Text: Established Patient Visit Last Visit Date: 06/14/2023 CC: ayaan HPI: 33 year old female. Today's concerns are: 1) acne Location: face Duration: months Symptoms: patient states her face is the same Current treatment: clindamycin, tretinoin, spironolactone (patient using topicals every 2-3 days due to drying) Past treatment: adapalene gel, clearasil, many OTC treatments, dial soap, benzoyl peroxide Past Derm History: Personal history of melanoma: No Family history of melanoma (1st degree relative): No History of atypical nevi: No Personal history of NMSC: No ROS: Denies fevers, weight loss, night sweats, joint pain, abdominal pain, headaches, cough. Skin as above. Physical Exam: Gen: AANDOx3, well appearing Skin exam performed including face.Exam with noted findings of: -one cystic acne on L jaw line, one healing acne papule on R jaw line -scattered hyperpigmented patches on the lower face -she complains of sweating in her armpits and groin Assessment/Plan: ASSESSMENT/PLAN: 1. Acne vulgaris - ICD9: 706.1, ICD10: L70.0 -Continue on current topical regimen: - Continue with Clindamycin and Tretinoin but educated on how to use Tretinoin 0.05%: apply a pea size amount to the face every other night to nightly as tolerated with a moisturizer on top - Advised patient to discontinue using Dial soap on face. Instead use Cetaphil or CeraVe cleansers - Will increase Spironolactone to 50 mg BID - Discussed SE/Risks of Aldactone in women including but not limited to hyperkalemia, low BP, dizziness, breast tenderness, irregular menstrual cycle and importance not to get and use of contraceptives. 2. Post-inflammatory hyperpigmentation L81.0 - Discussed etiology and educated - Hyperpigmentation was discussed with the patient in detail. Discussed this can take 6 months to over a year to fade. Options of Hydroquinone was discussed. Reassurance was given. 3. Generalized hyperhidrosis R61 - Discussed etiology, educated, and treatment options discussed - Recommend starting with Drysol - Robinol in reserve RTC 4 weeks. The patient is seen and examined by Dr. Del Castillo and the following reflects his/her service. Scribed by Mally Zhao CMA. I agree with the Chief Complaint, ROS, and Past Histories independently gathered by the clinical office support and the remaining scribed note accurately describes my personal service to the patient. Lory Del Castillo, [facility] 07-22-2023 Miscellaneous Notes Called in Drysol and Spironolactone from today's visit to the [facility] pharmacy in [place]. documented in this encounter [facility] 07-22-2023 History of Present illness Narrative Established Patient Visit Last Visit Date: 06/14/2023 CC: ayaan HPI: 33 year old female. Today's concerns are: 1) acne Location: face Duration: months Symptoms: patient states her face is the same Current treatment: clindamycin, tretinoin, spironolactone (patient using topicals every 2-3 days due to drying) Past treatment: adapalene gel, clearasil, many OTC treatments, dial soap, benzoyl peroxide Past Derm History: Personal history of melanoma: No Family history of melanoma (1st degree relative): No History of atypical nevi: No Personal history of NMSC: No ROS: Denies fevers, weight loss, night sweats, joint pain, abdominal pain, headaches, cough. Skin as above. Physical Exam: Gen: A&Ox3, well appearing Skin exam performed including face.Exam with noted findings of: -one cystic acne on L jaw line, one healing acne papule on R jaw line -scattered hyperpigmented patches on the lower face -she complains of sweating in her armpits and groin Assessment/Plan: ASSESSMENT/PLAN: 1. Acne vulgaris - ICD9: 706.1, ICD10: L70.0 -Continue on current topical regimen: - Continue with Clindamycin and Tretinoin but educated on how to use Tretinoin 0.05%: apply a pea size amount to the face every other night to nightly as tolerated with a moisturizer on top - Advised patient to discontinue using Dial soap on face. Instead use Cetaphil or CeraVe cleansers - Will increase Spironolactone to 50 mg BID - Discussed SE/Risks of Aldactone in women including but not limited to hyperkalemia, low BP, dizziness, breast tenderness, irregular menstrual cycle and importance not to get and use of contraceptives. 2. Post-inflammatory hyperpigmentation L81.0 - Discussed etiology and educated - Hyperpigmentation was discussed with the patient in detail. Discussed this can take 6 months to over a year to fade. Options of Hydroquinone was discussed. Reassurance was given. 3. Generalized hyperhidrosis R61 - Discussed etiology, educated, and treatment options discussed - Recommend starting with Drysol - Robinol in reserve RTC 4 weeks. The patient is seen and examined by Dr. Del Castillo and the following reflects his/her service. Scribed by Mally Zhao CMA. I agree with the Chief Complaint, ROS, and Past Histories independently gathered by the clinical office support and the remaining scribed note accurately describes my personal service to the patient. Lory Del Castillo DO documented in this encounter [facility] 06-14-2023 Note HNO ID: [id number] Author: LORY DEL CASTILLO DO Service: ? Author Type: Physician Type: Progress Notes Filed: 06/14/2023 16:44 Note Text: New Patient Visit Referred from: self Chief complaint: acne HPI: 33 year old female. Today's concerns are: 1) acne Location: mostly face, some of chest and back Duration: ~10 years Symptoms: flares with cycles Current treatment: benzoyl peroxide Past treatment: adapalene gel, clearasil, many OTC treatments, dial soap She feels her skin is oily Past Derm History: Personal history of melanoma: No Family history of melanoma (1st degree relative): No Atypical nevi: No Personal history of NMSC: No Meds: Current Outpatient Medications on File Prior to Visit Medication Sig semaglutide (OZEMPIC) 2 mg/dose (8 mg/3 mL) pen injector Inject 2 mg subcutaneously one time a week. ARIPiprazole (ABILIFY) 5 mg tablet Take 5 mg by mouth. (Patient not taking: Reported on 06/14/2023) desvenlafaxine ER (PRISTIQ) 25 mg 24 hr tablet Take 25 mg by mouth once daily. (Patient not taking: Reported on 06/14/2023) phentermine HCl (ADIPEX-P ORAL) Take by mouth. (Patient not taking: Reported on 06/14/2023) Uctwhpqbkhsro-Ir-Xunm-Minerals (MULTIPLE VITAMIN, WOMENS) tab Take 1 tablet [...] Breath. (Patient not taking: Reported on 01/11/2022) No current facility-administered medications on file prior to visit. ROS: Denies fevers, weight loss, night sweats, joint pain, abdominal pain, headaches, cough. Skin as above. Physical Exam: Gen: AAOX3, NAD Skin exam performed including scalp, face. Notable exam findings as follows: -acne cysts of cheeks, jaw line, and chin with hyperpigmented patches -firm hyperpigmented nodule(s) with positive dimple sign Assessment/Plan: ASSESSMENT/PLAN: 1. Acne vulgaris - ICD9: 706.1, ICD10: L70.0 - Discussed etiology of condition - Acne was discussed in detail as well as treatment options including topical medication, oral antibiotics, aldactone in women. Recommended gentle cleanser (cerave/cetophil). Will use BP wash in the am, Clindamycin in the am, and Tretinoin 0.05% in the pm. With retin A medications recommend to use a pea size amount every other night with moisturizer (cerave/cetophil) after and then increase to nightly use a tolerated. - Discussed risks/side effects/expected outcomes of spironolactone and will start at 50mg a day - Discussed SE/Risks of Aldactone in women including but not limited to hyperkalemia, low BP, dizziness, breast tenderness, irregular menstrual cycle and importance not to get and use of contraceptives. 2. Dermatofibroma - Explanation of these lesions were dicussed. Benign reassurance was given. RTC 4 weeks. The patient is seen and examined by Dr. Del Castillo and the following reflects his/her service. Scribed by Sola Colin RN. I agree with the Chief Complaint, ROS, and Past Histories independently gathered by the clinical office support and the remaining scribed note accurately describes my personal service to the patient. Lory Del Castillo DO [facility] 06-03-2023 History of Present illness Narrative HPI, PHYSICAL EXAMINATION & PLAN HPI: Patient here today for follow up for non-surgical weight loss management Weight trend since last visit: lost 10 lbs over 2 m stable This patient's excess weight is causing the following co-morbid conditions at this time:Other IR Physical Examination: Blood pressure 108/72, pulse 80, height 5' 2 (1.575 m), weight 140 lb 12.8 oz (63.9 kg). General: This patient is calm and [...] Made Towards Goals: 3 month weight goal: 0 6 month weight goal: 0 12 month weight goal: 0 Plan: Obesity stable Continue current management, continue weight loss program Focus on the meal structure, composition and portion control Will start exercise resistance Other IR Continue current management, continue weight loss program stable Ozempic dose 1mg new dose Good tolerance [x] Protein goal of 1g [...] PROGRAM ROOMING NOTE: FOLLOW UP VISIT Patient: Dari Aparicio Date of : 1990 Service Date: 06/03/2023 Patient History/Assessment Summary: The patient is a pleasant 33 y.o. year old female, who stands Height: 5' 2 (157.5 cm) tall with a weight of Weight: 140 lb 12.8 oz (63.9 kg) pounds, resulting in a BMI of Body mass index is 25.75 kg/m . kg/m2. She is here for follow-up for non-surgical treatment of Over weight Patient has the following question(s): none Pre Program Weight Metrics (CARE Path) Date of Initial Consultation:@FLOWLAST(4007)@ Initial Weight: @FLOWLAST([id number])@ Initial BMI: @FLOWLAST([id number])@ [place] Body Weight: @FLOWLAST([id number])@ Excess Body Weight: @FLOWLAST([id number])@ Body Fat Percentage: No flowsheet data found. Subsequent Body Fat Percentage: No flowsheet data found. Pre Program Weight Metrics (Epic) (Surgical Wt Loss Management- baseline) This Visit Non-Surgical Subsequent Eval Date: 06/03/23 Height: 5' 2 (157.5 cm) Weight: 140 lb 12.8 oz (63.9 kg) BMI: 25.75 Weight Change: -9.6 lbs Total Weight Change: <No Previous Non-Surg Weight on File> lbs % EBWL: <UNK>% Subsequent Body Fat %: 30.9 Body Fat % Change: -2.11 Follow Up Weight Metrics Last Three Weights Including Today's Weight: Wt Readings from Last 3 Encounters: 06/03/23 140 lb 12.8 oz (63.9 kg) 04/29/23 150 lb 8 oz (68.3 kg) 03/25/23 155 lb (70.3 kg) Diabetes Do you currently have diabetes? [...] affect BP or mental status Patient has fallen in the past 2 months Patient does not demonstrate unsteady gait Patient uses the following ambulatory assistive devices: none Patient states the presence of the following traits which increases risk of fall: none Patient is not on home O2 Completed by: Kiera Hinds MA documented in this encounter [facility] 04-29-2023 History of Present illness Narrative HPI, PHYSICAL EXAMINATION & PLAN [...] was performed.Clinical documentation is updated and completed. [facility] NON-SURGICAL WEIGHT LOSS MANAGEMENT PROGRAM ROOMING NOTE: FOLLOW UP VISIT Patient: Dari Aparicio Date of : 1990 Service Date: [...] Path) Date of Initial Consultation:@FLOWLAST(8961)@ Initial Weight: @FLOWLAST([id number])@ Initial BMI: @FLOWLAST([id number])@ [place] Body Weight: @FLOWLAST([id number])@ Excess Body Weight: @FLOWLAST([id number])@ Body Fat Percentage: No flowsheet data found. [...] Angelic Vera LPN documented in this encounter [facility] 03-25-2023 History of Present illness Narrative [facility] NON-SURGICAL WEIGHT LOSS MANAGEMENT PROGRAM ROOMING NOTE: FOLLOW UP VISIT Patient: Dari Aparicio Date of : 1990 Service Date: [...] Path) Date of Initial Consultation:@FLOWLAST(8961)@ Initial Weight: @FLOWLAST([id number])@ Initial BMI: @FLOWLAST([id number])@ [place] Body Weight: @FLOWLAST([id number])@ Excess Body Weight: @FLOWLAST([id number])@ Body Fat Percentage: No flowsheet data found. [...] updated and completed. documented in this encounter [facility] 02-25-2023 History of Present illness Narrative [facility] NON-SURGICAL WEIGHT LOSS MANAGEMENT PROGRAM ROOMING NOTE: FOLLOW UP VISIT Patient: Dari Aparicio Date of : 1990 Service Date: [...] Path) Date of Initial Consultation:@FLOWLAST(8961)@ Initial Weight: @FLOWLAST([id number])@ Initial BMI: @FLOWLAST([id number])@ [place] Body Weight: @FLOWLAST([id number])@ Excess Body Weight: @FLOWLAST([id number])@ Body Fat Percentage: No flowsheet data found. [...] 01/19/23 165 lb 6.4 oz (75 kg) 07/26/23 169 lb (76.7 kg) Diabetes Do you [...] completed. documented in this encounter [facility] 02-10-2023 Telephone encounter Note Please sign orders. Thank you! [facility] 02-10-2023 Miscellaneous Notes Please sign orders. Thank you! Patient left VM that she will run out of ozempic before her next apt with NK. Requesting a refill. documented in this encounter [facility] 02-10-2023 Telephone encounter Note Patient left VM that she will run out of ozempic before her next apt with NK. Requesting a refill. [facility] 01-19-2023 History of Present illness Narrative [facility] NON-SURGICAL WEIGHT LOSS MANAGEMENT PROGRAM ROOMING NOTE: FOLLOW UP VISIT Patient: Dari Aparicio Date of : 1990 Service Date: [...] Path) Date of Initial Consultation:@FLOWLAST(8961)@ Initial Weight: @FLOWLAST([id number])@ Initial BMI: @FLOWLAST([id number])@ [place] Body Weight: @FLOWLAST([id number])@ Excess Body Weight: @FLOWLAST([id number])@ Body Fat Percentage: No flowsheet data found. [...] updated and completed. documented in this encounter [facility] 01-12-2023 Note HNO ID: [id number] Author: Lynnette Valdovinos PA-C Service: ? Author Type: Physician Fuselage Framer Type: Progress Notes Filed: 01/12/2023 9:31 AM Note Text: Patient presents with express care with severe abdominal pain for 2 days. She rates it a 9/10 in upper abdomen. She feels nauseated. Patient in tears and in obvious pain here. She just started ozempic as well. I recommended being seen I the ER. She will go to [facility] for further care. [facility] 01-12-2023 History of Present illness Narrative Patient presents with express care with severe abdominal pain for 2 days. She rates it a 9/10 in upper abdomen. She feels nauseated. Patient in tears and in obvious pain here. She just started ozempic as well. I recommended being seen I the ER. She will go to [facility] for further care. documented in this encounter [facility] 12-15-2022 History of Present illness Narrative [facility] NON-SURGICAL WEIGHT LOSS MANAGEMENT PROGRAM ROOMING NOTE: FOLLOW UP VISIT Patient: Dari Aparicio Date of : 1990 Service Date: [...] Path) Date of Initial Consultation:@FLOWLAST(8961)@ Initial Weight: @FLOWLAST([id number])@ Initial BMI: @FLOWLAST([id number])@ [place] Body Weight: @FLOWLAST([id number])@ Excess Body Weight: @FLOWLAST([id number])@ Body Fat Percentage: No flowsheet data found. [...] updated and completed. documented in this encounter [facility] 12-01-2022 Note HNO ID: [id number] Author: [facility] Service: ? Author Type: Bus Aide Type: Progress Notes Filed: 12/01/2022 12:11 PM Note Text: DATE OF PHOTOS: 12/01/2022 Body Part: Breasts and Abdomen [facility] December 01, 2022 12:10 PM [facility] 12-01-2022 Note HNO ID: [id number] Author: Hollis Bella MD Service: ? Author Type: Physician Type: Progress Notes Filed: 12/02/2022 2:42 PM Note Text: Plastic Surgery Note CC: Consultation for Abdominoplasty HPI: Dari is a 32 year old female presenting [...] phentermine HCl (ADIPEX-P ORAL) Take by mouth. Ajxntrgodcqct-Tf-Lyzd-Minerals (MULTIPLE VITAMIN, WOMENS) tab Take 1 tablet [...] today Financial information to be given be FC Follow up for preoperativ (more content not included)... [facility] 12-01-2022 History of Present illness Narrative DATE OF PHOTOS: 12/01/2022 Body Part: Breasts and Abdomen [facility] December 01, 2022 12:10 PM documented in this encounter [facility] 12-01-2022 History of Present illness Narrative Plastic Surgery Note CC: Consultation for Abdominoplasty HPI: Dari is a 32 year old female presenting [...] Smoking history: Former smoker, quit 2011 Lives: [place], near [place] PAST MEDICAL HISTORY Diagnosis Date Anxiety Asthma [...] exam under anesth./ PAST SURGICAL HISTORY OF 2014 dental extractions REDUCTION OF LARGE BREAST 03/28 TONSILLECTOMY HX tonsils and adnoids removed Current Outpatient Medications Medication Sig Dispense Refill ARIPiprazole (ABILIFY) 5 mg tablet Take 5 mg by mouth. desvenlafaxine ER (PRISTIQ) 25 mg 24 hr tablet Take 25 mg by mouth once daily. phentermine HCl (ADIPEX-P ORAL) Take by mouth. Pvlfxnrgylibl-Iw-Uxsf-Minerals (MULTIPLE VITAMIN, WOMENS) tab Take 1 tablet [...] his service. Scribed by Christina Case APRN, [employer] I agree with the Chief Complaint, ROS, and Past Histories independently gathered by the clinical office support and the remaining scribed note accurately describes my personal service to the patient. Hollis Bella MD documented in this encounter [facility] 11-12-2022 History of Present illness Narrative [facility] NON-SURGICAL WEIGHT LOSS MANAGEMENT PROGRAM ROOMING NOTE: FOLLOW UP VISIT Patient: Dari Aparicio Date of : 1990 Service Date: [...] Weight Metrics (CARE Path) Date of Initial Consultation:@FLOWLAST(9831)@ Initial Weight: @FLOWLAST([id number])@ Initial BMI: @FLOWLAST([id number])@ [place] Body Weight: @FLOWLAST([id number])@ Excess Body Weight: @FLOWLAST([id number])@ Body Fat Percentage: No flowsheet data found. [...] on home O2 Completed by: Jessie Butler [facility] NON-SURGICAL WEIGHT LOSS MANAGEMENT PROGRAM PROGRESS NOTE INITIAL EVALUATION Previously seen as a surgical patient in 05/2021 Patient: Dari Aparicio Service Date: 11/12/22 Date of : [...] the Patient, which is located in the Plant Maintenance Technician Tab. History: Past Medical History: Diagnosis Date Asthma Back pain COVID-19 vaccine series completed 2nd shot Daytime sleepiness Difficulty sleeping Fatigue History of UTI Irregular menses Joint pain, hip Joint pain, knee Memory difficulty Morbid obesity due to excess calories (HCC) 05/26/2021 Muscle weakness JAZZMINE (obstructive sleep apnea) Shortness of breath at rest Snoring SOBOE (shortness of breath on exertion) Past Surgical History: Procedure Laterality Date APPENDECTOMY 2016 [place] - laparoscopic BREAST SURGERY Bilateral [facility] SECTION (HISTORICAL) 2019 [place] - pfannenstiel SECTION (HISTORICAL) 2011 [place] - pfannenstiel HIP SURGERY Right Labral tear, shaved hip bone during SX- [facility] KNEE SURGERY Bilateral [facility]- [place] removal TONSILLECTOMY AND ADENOIDECTOMY (HISTORICAL) [place] Family History Problem Relation Name Age of [...] (77.6 kg) BMI 31.28 kg/m Weight Metrics: [place] Body Weight: Excess Body Weight: [place] BMI: 24 General: This patient is alert [...] include: none Current Activity 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 personal financial counselor Current Eating Behaviors structured Health and Behavior Inventory Patient scores as (Select one): [] Unguided Grazer [] Nighttime Nibbler [] Convenient Consumer [] Fruitless Igor [] Mindless [place] [] Hearty Portioner [] Deprived Sneaker [] Hate to Move Struggler [] Self-Conscious Hider [] Inexperienced [place] [] Fle-yi-Nhgyyly Doer [] Set-Routine Repeater [] Nfclw-vhu-Cxgwa Sufferer [] Qr-klkc-pq-Exercise Protester [] Emotional Crib Attendant [] Wip-Yiij-Oncwoc Sufferer [] Persistent Procrastinator [] Can t-Say-No [...] Take 1 capsule by mouth daily. BIOTIN 63993 MCG TABLET DISPERSIBLE Take by mouth. CHOLECALCIFEROL [...] in weight loss journey discussed 6.will use mychart for communication and let me know if she is using ozempic The patient was seen and a full chart review was performed.Clinical documentation is updated and completed. documented in this encounter [facility] 08-17-2022 Note HNO ID: [id number] Author: Dari White APRN.CAMERA ENGINEER Service: ? Author Type: Nurse Practitioner Type: Progress Notes Filed: 08/17/2022 6:27 PM Note Text: This note was created using [employer]. Subjective Dari Aparicio is a 32 year old female. 32 year old female with PMH ashtma, ADHD, depression and anxiety presents for complaints of illness. Acute onset 4 days ago Started with bilateral ear pain Popping Left greater than right +nasal drainage +post nasal +sore throat Denies cough Denies emesis. Denies diarrhea. +tobacco usage- quit 2011 Denies using homeopathic or OTC medications WATER RESOURCE AGENT. The history is provided by the patient. No foreign language interpreter was used. Ear Pain This is [...] by mouth twice daily for 7 days. Qabkxlwgphhba-Nx-Iiis-Minerals (MULTIPLE VITAMIN, WOMENS) tab Take 1 tablet [...] for arthralgias, back (more content not included)... [facility] 08-17-2022 History of Present illness Narrative This note was created using [employer]. Subjective Dari Aparicio is a 32 year old female. 32 year old female with PMH ashtma, ADHD, depression and anxiety presents for complaints of illness. Acute onset 4 days ago Started with bilateral ear pain Popping Left greater than right +nasal drainage +post nasal +sore throat Denies cough Denies emesis. Denies diarrhea. +tobacco usage- quit 2011 Denies using homeopathic or OTC medications WATER RESOURCE AGENT. The history is provided by the patient. No foreign language interpreter was used. Ear Pain This is [...] by mouth twice daily for 7 days. Evxjaysdlnpkp-Tp-Lnsm-Minerals (MULTIPLE VITAMIN, WOMENS) tab Take 1 tablet [...] 3-5 days if symptoms persist or worsen. Dari White APRN.EDEN documented in this encounter [facility] 01-11-2022 Instructions Dari White APRN.CNP - 01/11/2022 6:32 PM EDT OTITIS [...] even if the symptoms go away. 2. Vczq-oem-inoxwdl pain medication may be taken or other [...] him or her). documented in this encounter [facility] 01-11-2022 History of Present illness Narrative This note was created using [employer]. Subjective Dari Aparicio is a 31 year old female. 31 year old female with PMH ashtma, ADHD, and anxiety presents with complaints of right ear pain. Acute onset today Right ear Sharp 9/10 Constant. States pain is radiating down into her jaw. Denies drainage. Denies reduced hearing. Denies accompanying URI sx Denies cough. Denies fever or chills. Denies using homeopathic or OTC medications WATER RESOURCE AGENT. The history is provided by the patient. No foreign language interpreter was used. Ear Pain This is [...] 03/28 TONSILLECTOMY HX tonsils and adnoids removed ALLERGIES Chantix [Varenicline] and Naproxen MEDICATIONS amoxicillin (AMOXIL) 875 mg tablet Take 1 tablet by mouth twice daily for 7 days. fluconazole (DIFLUCAN) 150 mg tablet Take 1 tablet by mouth once daily for 1 day. Bjvrusedlqunm-Ci-Olon-Minerals (MULTIPLE VITAMIN, WOMENS) tab Take 1 tablet [...] 3-5 days if symptoms persist or worsen. Dari White APRN.CAMERA ENGINEER documented in this encounter [facility] 01-07-2016 History of Past i llness Narrative Problem Noted Date Resolved Date Abdominal pain 01/07/2016 01/07/2016 Irritable bowel syndrome without diarrhea 201501/07/2016 Anemia complicating 01/25/2012 Back pain complicating 09/27/2011 03/07/2013 Supervision of normal first 09/17/2011 03/07/2013 Overview: Girl on U- Tram Tobacco use complicating 09/17/2011 12/18/2016 Overview: Quit 10/10 1-2/day- encouraged cessation Strain of lumbar region 12/18/2010 12/19/19 11 Overview: Myofascial strain on 09/07/10 per ER note from [facility]. Personal history of tobacco use 03/03/2010 09/17/2011 Overview: Quit 02/2010 Tobacco use disorder 03/31/2009 03/03/2010 Tonsillitis 03/31/2009 04/27/2011 Overview: Plans to have T&A now that has quit smoking. Backache, unspecified 05/26/2006 09/17/2011 Overview: Dr. [place]; History scoliosis Hypertrophy of breast 01/07/2005 04/27/2011 Abdominal pain, epigastric 01/07/200503/03 Abdominal pain, generalized 01/07/200502/20 documented as of this encounter (statuses as of 01/11/2022) [facility] History of Past illness Narrative* Problem [...] strain on 09/07/10 per ER note from [facility]. Personal history of tobacco use 03/03/2010 09/17/2011 Overview: Quit 02/2010 Tobacco use disorder 03/31/2009 03/03/2010 Tonsillitis 03/31/2009 04/27/2011 Overview: Plans to have T&A now that has quit smoking. Backache, unspecified 05/26/2006 09/17/2011 Overview: Dr. [place]; History scoliosis Hypertrophy of breast 01/07/2005 04/27/2011 Abdominal pain, epigastric 01/07/200503/03 Abdominal pain, generalized 01/07/200502/20 documented as of this encounter (statuses as of 08/18/2022) [facility] History of Past illness Narrative* Problem [...] strain on 09/07/10 per ER note from [facility]. Personal history of tobacco use 03/03/2010 09/17/2011 Overview: Quit 02/2010 Tobacco use disorder 03/31/2009 010 Tonsillitis 03/31/2009 04/27/2011 Overview: Plans to have T&A now that has quit smoking. Backache, unspecified 05/26/20062011 Overview: Dr. [place]; History scoliosis Hypertrophy of breast 01/07/20052010 Abdominal pain, epigastric 01/07/2005 1 Abdominal pain, generalized 01/07/2005 03/03/2010 documented as of this encounter (statuses as of 12/01/2022) [facility]08-17-2016 History of Past illness Narrative* Problem [...] strain on 09/07/10 per ER note from [facility]. Personal history of tobacco use 03/03/2010 09/17/2011 Overview: Quit 02/2010 Tobacco use disorder 03/31/2009 010 Tonsillitis 03/31/2009 04/27/2011 Overview: Plans to have T&A now that has quit smoking. Backache, unspecified 05/26/20062011 Overview: Dr. Harrison; History scoliosis Hypertrophy of breast 01/07/20052010 Abdominal pain, epigastric 01/07/2005 1 Abdominal pain, generalized 01/07/2005 03/03/2010 documented as of this encounter (statuses as of 12/03/2022) [facility]08-17-2016 History of Past illness Narrative* Problem [...] strain on 09/07/10 per ER note from [facility]. Personal history of tobacco use 03/03/2010 09/17/2011 Overview: Quit 02/2010 Tobacco use disorder 03/31/2009 010 Tonsillitis 03/31/2009 04/27/2011 Overview: Plans to have T&A now that has quit smoking. Backache, unspecified 05/26/20062011 Overview: Dr. Harrison; History scoliosis Hypertrophy of breast 01/07/20052010 Abdominal pain, epigastric 01/07/2005 1 Abdominal pain, generalized 01/07/2005 03/03/2010 documented as of this encounter (statuses as of 01/12/2023) [facility]08-17-2016 History of Past illness Narrative* Problem [...] strain on 09/07/10 per ER note from [facility]. Personal history of tobacco use 03/03/2010 09/17/2011 Overview: Quit 02/2010 Tobacco use disorder 03/31/2009 010 Tonsillitis 03/31/2009 04/27/2011 Overview: Plans to have T&A now that has quit smoking. Backache, unspecified 05/26/20062011 Overview: Dr. Harrison; History scoliosis Hypertrophy of breast 01/07/20052010 Abdominal pain, epigastric 01/07/2005 1 Abdominal pain, generalized 01/07/2005 03/03/2010 documented as of this encounter (statuses as of 07/22/2023) [facility]08-[facility]2016 History of Past illness Narrative* Problem [...] strain on 09/07/10 per ER note from [facility]. Personal history of tobacco use 03/03/2010 09/17/2011 Overview: Quit 02/2010 Tobacco use disorder 03/31/2009 010 Tonsillitis 03/31/2009 04/27/2011 Overview: Plans to have T&A now that has quit smoking. Backache, unspecified 05/26/20062011 Overview: Dr. Harrison; History scoliosis Hypertrophy of breast 01/07/20052010 Abdominal pain, epigastric 01/07/2005 1 Abdominal pain, generalized 01/07/2005 03/03/2010 documented as of this encounter (statuses as of 07/22/2023) [facility] note* Diagnosis Acute otitis media, right- Primary Unspecified otitis media documented in this encounter [facility] note* Diagnosis Acute otitis media, bilateral- Primary Unspecified otitis media Rhinosinusitis Unspecified sinusitis (chronic) documented in this encounter [facility] note* Diagnosis BMI 31.0-31.9,adult- Primary Class 1 obesity with serious comorbidity and body mass index (BMI) of 31.0 to 31.9 in adult, unspecified obesity type JAZZMINE (obstructive sleep apnea) Obstructive sleep apnea (adult) (pediatric) Insulin resistance Other abnormal glucose [facility]* Diagnosis Diastasis recti- Primary Diastasis of muscle Localized adiposity documented in this encounter [facility] note* Diagnosis Insulin resistance- Primary Other abnormal glucose BMI 30.0-30.9,adult Class 1 obesity without serious comorbidity with body mass index (BMI) of 30.0 to 30.9 in adult, unspecified obesity type documented in this encounter [facility] note* Diagnosis Abdominal pain, unspecified abdominal location- Primary documented in this encounter [facility] note* Diagnosis Insulin resistance- Primary Other abnormal glucose BMI 30.0-30.9,adult Class 1 obesity without serious comorbidity with body mass index (BMI) of 30.0 to 30.9 in adult, unspecified obesity type documented in this encounter [facility] note* Diagnosis Insulin resistance Other abnormal glucose documented in this encounter [facility] note* Diagnosis Insulin resistance- Primary Other abnormal glucose BMI 28.0-28.9,adult Overweight (BMI 25.0-29.9) Overweight documented in this encounter [facility] note* Diagnosis Insulin resistance- Primary Other abnormal glucose BMI 28.0-28.9,adult Overweight (BMI 25.0-29.9) Overweight documented in this encounter [facility] note* Diagnosis Insulin resistance- Primary Other abnormal glucose BMI 27.0-27.9,adult Overweight (BMI 25.0-29.9) Overweight documented in this encounter [facility] note* Diagnosis Insulin resistance- Primary Other abnormal glucose BMI 25.0-25.9,adult Overweight (BMI 25.0-29.9) Overweight documented in this encounter [facility] note* Diagnosis Acne vulgaris- Primary Other acne Post-inflammatory hyperpigmentation Dyschromia, unspecified Generalized hyperhidrosis documented in this encounter [facility] note* Diagnosis Chronic maxillary sinusitis- Primary Chronic migraine without aura without status migrainosus, not intractable Non-seasonal allergic rhinitis, unspecified trigger documented in this encounter [facility] note* Diagnosis Overweight (BMI 25.0-29.9)- Primary Overweight Insulin resistance Other abnormal glucose BMI 26.0-26.9,adult documented in this encounter [facility] note* Diagnosis Insulin resistance Other abnormal glucose documented in this encounter [facility] note* Diagnosis Insulin resistance- Primary Other abnormal glucose BMI 26.0-26.9,adult Overweight (BMI 25.0-29.9) Overweight documented in this encounter [facility] note* Diagnosis Insulin resistance Other abnormal glucose documented in this encounter [facility] Summary Purpose Family History No Family History Records FoundNo Family History Records FoundNo Family History Records FoundNo Family History Records FoundNo Family History Records FoundNo Family History Records Found Advance Directives No Advanced Directives Records FoundNo Advanced Directives Records FoundNo Advanced Directives Records FoundNo Advanced Directives Records FoundNo Advanced Directives Records FoundNo Advanced Directives Records Found Reason for Referral Specialty Diagnoses / Procedures Referred By Contac t Referred To Contact Radiology Diagnoses Chronic maxillary sinusitis Procedures CT Sinus Stealth Without Contrast Arcadio Nguyễn MD [address] [facility] [address] [place] [address] Referral ID Status Reason Start Date Expiration Date V isits Requested Visits Authorized [id number] Pending Review 08/09/2023 08/08/2024 1 1 Additional Source Comments INFORMATION SOURCE (unrecogn ized section and content) DATE CREATED AUTHOR 02/12/2020 [facility] DATE CREATED AUTHOR AUTHOR'S ORGANIZ ATION 03/26/2021 [facility] DATE CREATED AUTHOR AUTHOR'S ORGANIZ ATION 08/20/2021 [facility] DATE CREATED AUTHOR AUTHOR'S ORGANIZ ATION 07/24/2023 [facility] DATE CREATED AUTHOR AUTHOR'S ORGANIZ ATION 08/10/2023 [facility] DATE CREATED AUTHOR AUTHOR'S ORGANIZ ATION 02/27/2024 [facility] Source Comments (unrecognize d section and content) In the event this informatio n is protected by the Federal Confidentiality of Alcohol and Drug Abuse Patient Records regulations: The Federal rules restrict any use of the information to criminally investigate or prosecute any alcohol or drug abuse patient.[facility] the event this information is protected by the Federal Confidentiality of Alcohol and Drug Abuse Patient Records regulations: The Federal rules restrict any use of the information to criminally investigate or prosecute any alcohol or drug abuse patient.[facility] the event this information is protected by the Federal Confidentiality of Alcohol and Drug Abuse Patient Records regulations: The Federal rules restrict any use of the information to criminally investigate or prosecute any alcohol or drug abuse patient.[facility] the event this information is protected by the Federal Confidentiality of Alcohol and Drug Abuse Patient Records regulations: The Federal rules restrict any use of the information to criminally investigate or prosecute any alcohol or drug abuse patient.[facility] the event this information is protected by the Federal Confidentiality of Alcohol and Drug Abuse Patient Records regulations: The Federal rules restrict any use of the information to criminally investigate or prosecute any alcohol or drug abuse patient.[facility] the event this information is protected by the Federal Confidentiality of Alcohol and Drug Abuse Patient Records regulations: The Federal rules restrict any use of the information to criminally investigate or prosecute any alcohol or drug abuse patient.[facility] the event this information is protected by the Federal Confidentiality of Alcohol and Drug Abuse Patient Records regulations: The Federal rules restrict any use of the information to criminally investigate or prosecute any alcohol or drug abuse patient.[facility] Reason for Visit (unrecogniz ed section and content) Reason Comments Ear Pain right ear and jaw pa in x today Reason Comments Nasal Congestion Pt reported bilatera [...] #6 Reason Comments Weight Loss NSURG #7 Reason Comments Weight Loss Nsurg #8 Reason Comments Prescription Refills Reason Comments Weight Loss Nsurg #9 Reason Comments Sinusitis Chronic maxillary si nusitis, new pt Reason Comments Weight Loss Nsurg 10 Reason Onset Date Comments Med Refill 11/29/2023 Reason Onset Date Comments Results 11/30/2023 CT Scan Reason Comments Weight Loss NSURG # 10 Care Teams (unrecognized sec tion and content) Fence Builder Relationship Specialty Start Date End Date Juan Alfaro MD [address] [place] [address] PCP - General Internal Medicine 01/11/22 Fence Builder Relationship Specialty Start Date End Date Mega Cordova, DO [address] [facility] [address] [place] [address] PCP - General Family Medicine 08/17/22 Fence Builder Relationship Specialty Start Date End Date Oleklebere, Efewongbe B [address] [place] [address] PCP - General 03/25/21 Fence Builder Relationship Specialty Start Date End Date Mega Cordova, DO [address] [facility] [address] [place] [address] PCP - General Family Medicine 08/17/22 Fence Builder Relationship Specialty Start Date End Date Mega Cordova, DO [address] [facility] [address] [place] [address] PCP - General Family Medicine 08/17/22 Fence Builder Relationship Specialty Start Date End Date Oleklebere, Efewongbe B [address] [place] [address] PCP - General 03/25/21 Fence Builder Relationship Specialty Start Date End Date Oleghe, Efewongbe B PCP - General 03/25/21 Fence Builder Relationship Specialty Start Date End Date Oleghe, Efewongbe B PCP - General 03/25/21 Fence Builder Relationship Specialty Start Date End Date Oleghe, Efewongbe B PCP - General 03/25/21 Fence Builder Relationship Specialty Start Date End Date Oleghe, Efewongbe B PCP - General 03/25/21 Fence Builder Relationship Specialty Start Date End Date Juan Alfaro [address] [place] [address] PCP - General 03/25/21 Fence Builder Relationship Specialty Start Date End Date Juan Alfaro [address] [place] [address] PCP - General 03/25/21 Fence Builder Relationship Specialty Start Date End Date Mega Cordova DO [address] [place] [address] PCP - General Family Medicine 08/17/22 Fence Builder Relationship Specialty Start Date End Date Mega Cordova DO [address] [place] [address] PCP - General Family Medicine 08/17/22 Fence Builder Relationship Specialty Start Date End Date System, Provider Not In PCP - General 07/08/23 Fence Builder Relationship Specialty Start Date End Date Juan Alfaro [address] [place] [address] PCP - General 03/25/21 Fence Builder Relationship Specialty Start Date End Date Juan Alfaro [address] [place] [address] PCP - General 03/25/21 Fence Builder Relationship Specialty Start Date End Date Juan Alfaro [address] [place] [id number] PCP - General 03/25/21 Fence Builder Relationship Specialty Start Date End Date Juan Alfaro [address] [facility] [address] [place] [id number] PCP - General 03/25/21 Fence Builder Relationship Specialty Start Date End Date Juan Alfaro [address] [facility] [address] [place] [address] PCP - General 03/25/21 FOR RECORDS PERTAINING TO PATIENTS WHO [...] BE BASED ON THE PRIMARY CLINICAL RECORDS. [facility]. provides no warranty or guarantee of the accuracy or completeness of information in this document.
[2024-03-16 13:13] LABS: Internal QC Validated? YES +Cl - CLEAR BKGD; Pregnancy, Serum, hCG Quali. NEGATIVE Negative
[2024-03-16 13:20] LABS: ALB/GLOB Ratio 1.2 RATIO (0.9-2.4); AST(SGOT) 12 U/L (15-37); Alanine Aminotransfer ALT/SGPT 26 U/L (13-56); Albumin, Serum 3.9 g/dL (3.2-5.0); Alkaline Phosphatase 52 U/L (45-117); Anion Gap 6 (5-15); BUN 11 mg/dL (7-18); BUN/Creat Ratio 18.6 RATIO (10-20); Calcium,Total 8.9 mg/dL (8.5-10.1); Chloride 107 mmol/L (98-107); Creatinine, Serum 0.59 mg/dL (0.55-1.02); EST Glomerular Filtration Rate 124 mL/min (>60); Est Glom Filt Rate - Afr Amer 150 mL/min (>60); Estimated Creatinine Clearance 115.79 ml/min; Globulin 3.3 g/dL (2.2-4.2); Glucose 81 mg/dL (74-106); Lipase 51 U/L (13-75); Potassium 3.7 mmol/L (3.5-5.1); Protein, Total 7.2 g/dL (6.4-8.2); Sodium Level 142 mmol/L (136-145)
[2024-03-16 13:36] VITALS: BP 122/83; PULSE 78; RESP 16; O2SAT 98
[2024-03-16 15:30] VITALS: BP 125/72; PULSE 81; RESP 16; TEMP 36.6; O2SAT 99
== END 2024-03-16 15:31 | disposition home or self-care (01) ==
PROVIDERS: Emergency Provider Emergency Medicine; PCP Nurse Practitioner; Visit Provider Emergency Medicine
DX: R10.10 Upper abdominal pain, unspecified (principal); E11.9 Type 2 diabetes mellitus without complications; R11.2 Nausea with vomiting, unspecified; Z79.85 Long-term (current) use of injectable non-insulin antidiabetic drugs; I10 Essential (primary) hypertension; F17.210 Nicotine dependence, cigarettes, uncomplicated; Z98.51 Tubal ligation status; Z90.49 Acquired absence of other specified parts of digestive tract; F41.8 Other specified anxiety disorders; Z79.899 Other long term (current) drug therapy; K21.9 Gastro-esophageal reflux disease without esophagitis
CPT/HCPCS: 80053; 83690; 84703; 85025; 96374; 96375; 99283; A4216; J2405

== ENCOUNTER → 2024-03-27 | Outpatient (CLI) | payer MEDICARE, MEDICAID, SELFPAY ==
--- NOTE | 2024-03-27 17:32 | CT_ITS ---
EXAM: CT ABDOMEN AND PELVIS WITH INTRAVENOUS CONTRAST CLINICAL INDICATION: severe abdominal pain, no imaging while in ER TECHNIQUE: Helically acquired images were obtained of the abdomen and pelvis with intravenous contrast. This CT exam was performed using one or more of the following dose reduction techniques: automated exposure control, adjustment of the mA and/or kV according to patient size, and/or use of iterative reconstruction technique. CONTRAST: Oral and amp; IV Readi-CAT and amp; 75mL Isovue-370 RADIATION DOSE: CTDIvol = 13.58 mGy, DLP = 864.06 mGy-cm COMPARISON: December 20, 2015 FINDINGS: LOWER THORAX: Unremarkable. Lung bases are clear. No cardiomegaly. No significant pericardial effusion. ABDOMEN: LIVER: Small focus of typical focal fatty infiltration in the left lobe of the liver near the fissure of the falciform ligament, similar to prior exam. GALLBLADDER AND BILE DUCTS: Unremarkable. No calcified gallstones. No gallbladder distention or wall edema. No intra- or extrahepatic biliary ductal dilation. PANCREAS: Unremarkable. No focal cystic or solid mass. SPLEEN: Unremarkable. Normal size without focal cystic or solid mass. ADRENALS: Unremarkable. No nodules. KIDNEYS AND URETERS: There is a 4 mm nonobstructing stone in the upper pole right kidney and 2 mm nonobstructing stone in the upper pole left kidney. No mabel hydronephrosis or ureter stone but the small ureters are difficult to follow. Normal renal size and position. STOMACH AND BOWEL: Moderate stool in the proximal half of the colon, mild gas in the distal colon, slight gas in the rectum. No stomach or bowel distention. No focal inflammatory change. PELVIS: APPENDIX: Oral contrast just reached the ileocecal junction. There are postoperative changes of appendectomy along the medial tip of the cecum. BLADDER: The urinary bladder is almost collapsed, mild wall thickening is likely due to incomplete distention. REPRODUCTIVE: There is a dominant slightly thick-walled follicle in the right ovary, roughly 1.2 cm x 1.2 cm x 1.2 cm. ABDOMEN and PELVIS: INTRAPERITONEAL SPACE: Slight intrapelvic fluid. No free air. BONES/JOINTS: There is moderate decreased disc height at L5-S1 and mild anterior and posterior spondylosis, minimally increased from prior exam. No evidence of significant or high-grade spinal stenosis. No suspicious lytic or blastic abnormality. SOFT TISSUES: Unremarkable. No discrete abdominal or pelvic wall hernia. VASCULATURE: Multiple phleboliths in the pelvis near the distal ureters and UVJs. Abdominal aorta is non-dilated. LYMPH NODES: Unremarkable. No enlarged lymph nodes. CT/Abdomen/Pelvis WITH Contrast IMPRESSION: 1. Bilateral nephrolithiasis. No convincing hydronephrosis or ureter stone. Multiple phleboliths in the pelvis. 2. Dominant follicle in the right ovary and slight intrapelvic fluid. 3. Appendectomy. 4. Moderate stool in the proximal half of the colon. No small bowel obstruction. Electronically Signed: Elda Cox MD at 19:44 EST ,
== END | disposition home or self-care (01) ==
LOC: CT 17:32
PROVIDERS: PCP Nurse Practitioner
DX: R10.9 Unspecified abdominal pain (principal)
CPT/HCPCS: 74177; Q9967

== ENCOUNTER 2024-03-28 06:29 | Day surgery (SDC) | payer MEDICARE, MEDICAID, SELFPAY ==
[2024-03-28] VITALS (8 sets, daily range): BP systolic 90–114; BP diastolic 60–77; PULSE 82–94; RESP 14–16; TEMP 36.3–36.6; O2SAT 98–100; BMI 27.5
== END 2024-03-28 08:40 | disposition home or self-care (01) ==
LOC: EN 06:32 → AC 06:33
PROVIDERS: PCP Nurse Practitioner; Referring Provider Nurse Practitioner; Visit Provider Internal Medicine Gastroenterology
PROC: 0DJ08ZZ Inspection of Upper Intestinal Tract, Via Natural or Artificial Opening Endoscopic (ICD-10-PCS; CPT 43235; principal; 2024-03-28 07:25)
DX: K21.9 Gastro-esophageal reflux disease without esophagitis (principal); E11.9 Type 2 diabetes mellitus without complications; Z87.891 Personal history of nicotine dependence; I10 Essential (primary) hypertension; Z98.51 Tubal ligation status; Z90.49 Acquired absence of other specified parts of digestive tract; K22.89 Other specified disease of esophagus; K31.89 Other diseases of stomach and duodenum
CPT/HCPCS: 43239; 88305; 88312; 88341; 88342; A4216; J2405

== ENCOUNTER → 2024-05-11 | Outpatient (CLI) | payer MEDICARE, MEDICAID, SELFPAY ==
--- NOTE | 2024-05-11 10:35 | NM_ITS ---
CLINICAL: 34-year-old female with history of chronic nausea. SEMI-SOLID PHASE 99m Tc SULFUR COLLOID GASTRIC EMPTYING STUDY COMPARISON: None available FINDINGS: The patient was administered 1.1 mCi of 99m Tc sulfur colloid mixed with oatmeal and consumed per os. Image acquisitions in the anterior-posterior projections were obtained for 60 minutes. There is prompt visualization of the stomach. There is no gastroesophageal reflux identified. The T ? linear fit was calculated to be 48.7 minutes, (Normal: 12-56 minutes). NM/Gastric Emptying Study IMPRESSION: 1. NORMAL 99m Tc sulfur colloid semi-solid phase (oatmeal) gastric emptying imaging examination. A. There is normal and preserved semi-solid phase gastric emptying compared to normal controls. (Nadira et al, J Nucl Med Tech 38: 186, 2010). Electronically Signed: Teddy Eldridge DO at 13:15 EST ,
== END | disposition home or self-care (01) ==
LOC: NM 10:33
DX: E88.810 Metabolic syndrome (principal); K30 Functional dyspepsia
CPT/HCPCS: 78264; A9541

== ENCOUNTER 2024-07-10 12:10 | Emergency (ER) | payer MEDICARE, MEDICAID, SELFPAY ==
[2024-07-10 12:11] VITALS: BP 127/66; PULSE 92; RESP 20; TEMP 36.6; O2SAT 96; BMI 31.1
[2024-07-10 13:40] VITALS: BP 108/69; PULSE 95; RESP 18; TEMP 36.6; O2SAT 100
--- NOTE | 2024-07-10 13:42 | RAD_ITS ---
PROCEDURE: CHEST PA AND LATERAL REASON FOR EXAM: Chest pain, shortness of breath. TECHNIQUE: Frontal and lateral views of the chest. COMPARISON: Comparison is made with prior study dated January 31, 2024. FINDINGS: EKG electrodes are seen. The heart size is normal. The mediastinal contour is unremarkable. The lungs are clear. The bones are unremarkable. RAD/Chest PA and Lateral IMPRESSION: NEGATIVE CHEST Reading Location: [facility]
--- NOTE | 2024-07-10 13:44 | EDS_ITS ---
HPI History of Present Illness Chief Complaint: Dizziness Informant: patient Onset/Context/Timing Onset: Days Context: Gradual Onset Timing: Continuous Current Severity: Mild Maximum Severity: Mild Narrative Narrative: 34-year-old female history of PTSD. Has had URI symptoms with a cough. She was at the [facility] urgent care on Tuesday. They diagnosed with pneumonia and started on both Zithromax and Augmentin. They did not do a chest x-ray or any COVID or flu or other testing. That she has been ill for about 6 days since around last Tuesday or . She has had nausea but no vomiting. She has had loose stools since starting the antibiotics. Mom recently had similar symptoms she had a negative chest x-ray and a negative COVID test. Prior similar symptoms: Yes Recent Illness/Hospitalization: No PFSH PFSH Medical History Anxiety Arthritis High cholesterol Former smoker Maxillary sinusitis Effusion, left knee Diabetes PTSD (post-traumatic stress disorder) Low iron Back pain Migraine headache History of IBS Sleep apnea Asthma Shortness of breath on exertion Leg cramps Hypertension Adopted ASCUS with positive high risk HPV Pelvic pain Hypersomnia Rectal bleeding Anxiety and depression Spontaneous HPV test positive Acute appendicitis GERD (gastroesophageal reflux disease) Irregular periods Obesity Scoliosis IBS (irritable bowel syndrome) Chronic back pain Preeclampsia Home Medications ?Medication ?Instructions ?Recorded ?Last Taken ?Type cyclobenzaprine 7.5 mg tablet 7.5 mg PO QHS PRN muscle spasm #20 01/13/24 Unknown Rx tabs desvenlafaxine succinate 50 mg 50 mg PO DAILY #90 tabs 03/01/24 03/18/24 Rx tablet,extended release 24 hr omeprazole 40 mg capsule,delayed 40 mg PO BID #60 caps 04/25/24 Unknown Rx release ondansetron 4 mg disintegrating 4 mg PO Q6H PRN nausea and 05/28/24 Unknown Rx tablet vomiting #90 tabs amoxicillin 875 mg-potassium 1 tab PO BID 07/10/24 Unk nown History clavulanate 125 mg tablet azithromycin 250 mg tablet mg 07/10/24 Unknown History benzonatate 100 mg capsule 200 mg PO TID PRN PRN cough 07/10/24 Unknown History ondansetron 4 mg disintegrating 4 mg PO Q6H PRN nausea and 07/10/24 Unknown Rx tablet vomiting #10 tabs Allergy/AdvReac Type Severity Reaction Status Date / Time amoxicillin (From Augmentin) AdvReac Mild Vomiting Verified 07/10/24 12:11 clavulanic acid (From AdvReac Mild Vomiting Verified 07/10/24 12:11 Augmentin) naproxen AdvReac Other Verified 07/10/24 12:11 varenicline tartrate (From AdvReac Other Verified 07/10/24 12:11 Chantix) Family History Mother Depression Aunt Breast cancer Multiple sclerosis Grandmother Diabetes Uncle Hyperlipemia Menieres disease Depression Grandfather Heart disease Myocardial infarction CVA (cerebral vascular accident) Sister Crohn's disease half sister Other Hypertension Surgical History Status post tubal ligation Status post bilateral salpingectomy History of History of hip surgery H/O adenoidectomy delivery delivered S/P laparoscopic appendectomy (~05/06/18) S/P right knee arthroscopy History of tonsillectomy H/O knee surgery Hx of breast reduction, elective Social History household members: family and children housing: house current occupational status: unemployed Smoking Status: Former smoker how long ago did patient quit smokin alcohol intake: current alcohol intake frequency: holidays/special occasions only substance use type: does not use caffeine: No what type of physical activity do you participate in: none seatbelt use: always do you feel safe at home: Yes additional social history: Single ROS ROS ED ROS Narrative Cough. Diarrhea post antibiotics. Nausea without vomiting. Constitutional Constitutional ED: Denies chills or fever(s) Eyes Eyes: Denies blurry vision ENT ENT ED: Denies ear pain Cardiovascular Cardiovascular: Denies chest pain Respiratory/Chest Respiratory/Chest: Reports cough Gastrointestinal Gastrointestinal: Reports diarrhea and nausea; Denies abdominal pain, constipation, melena or vomiting Genitourinary Genitourinary ED: Denies dysuria or hematuria Musculoskeletal Musculoskeletal: Denies arthralgias or back pain Integumentary Denies abscess Neurologic Neurologic: Denies headache(s) Psychiatric Psychiatric: Denies anxiety Endocrine Endocrinology: Denies cold intolerance Hematologic/Lymphatic Hematologic/Lymphatic: Reports none Allergic/Immunologic Allergic/Immunologic ED: Denies mouth swelling, tongue swelling or urticaria EXAM Physical Exam Narrative Exam Narrative: 34-year-old female vital signs are stable afebrile. Pulse ox 96% on room air no hypoxia. H EENT exam pupils round reactive light. No facial droop. Moist mucous membranes. Posterior pharynx unremarkable. No trouble swallowing or breathing. Neck nontender. No lymphadenopathy. No meningismus. Lungs clear to auscultation bilaterally. Dry cough. No rales, rhonchi or wheezing. Equal symmetric. Heart regular rhythm rate about 95 no murmur. Chest wall and ribs nontender. Abdomen soft nontender. No peritoneal signs. Moving all 4 extremities. Normal strength. Normal range of motion. Nontender no edema. Back nontender. Neurologically awake alert no focal motor deficits. Benign exam. Const Vital Signs: 07/10/24 12:11 07/10/24 13:40 07/10/24 15:00 Temperature 98 F 98 F 98 F Temperature Source Oral Oral Oral Pulse Rate 92 95 79 Respiratory Rate 20 H 18 15 Blood Pressure 127/66 H 108/69 107/76 Blood Pressure Mean 86 82 86 Pulse Ox 96 100 100 Oxygen Delivery Method Room Air Room Air Room Air Positive well nourished and well developed; Negative for cachectic, contractures or unkempt General Appearance ED: well developed and NAD; Negative for unkempt, cachectic, contractures, cyanotic, diaphoretic or pallor Nutritional Appearance: Negative for cachectic HEENT Reports moist mucous membranes Negative for trauma or tenderness Eyes PERRL and EOMs intact bilaterally General Eye ED: Negative for pale conjunctiva or scleral icterus Neck no lymphadenopathy, supple and no JVD General: Negative for tenderness Lymph Lymphatic: Negative for other Chest Wall inspection of chest normal and palpation of chest normal Resp normal respiratory effort and clear to auscultation bilaterally Resp Narrative: Dry cough. Effort and Inspection: Negative for retractions Auscultation: Negative for rales, rhonchi, wheezes or diminished lung sounds Cardio regular rate, regular rhythm, S1 normal heart sound, S2 normal heart sound and no murmurs Palpation: Negative for palpable S3 or palpable S4 Rate: Negative for bradycardia or tachycardic Rhythm: Negative for abnormal rhythm GI normal to inspection, nondistended, normoactive bowel sounds, non-tender, non- distended and no masses Palpation: soft; Negative for tender, guarding or rebound tenderness present Back/Spine no CVA tenderness General Back: Negative for CVA tenderness Cervical Spine: Negative for cervical spine tenderness Thoracic Spine / Upper Back: Negative for thoracic spinal tenderness or paraspinal muscle tenderness Lumbar Spine / Lower Back: Negative for lumbar spinal tenderness Extremity normal to inspection General Extremety ED: Negative for edema or tenderness General Extremity: Negative for edema Neuro oriented x3 and CN's II-XII intact bilaterally Sensorium / Orientation: alert; Negative for orientation impaired, lethargic or stuporous Motor Exam: strength 5/5 throughout; Negative for general weakness or strength abnormal Psych mental status grossly normal Appearance: Negative for unkempt Attitude: No agitated Mood & Affect: Negative for tearful Skin no rashes or lesions noted and no wounds General Skin Exam: Negative for jaundice or pallor Lesions: No lesion noted Rashes: No rashes noted Trauma: Negative for abrasion Wounds: Negative for wounds noted MDM MDM MDM Narrative Medical decision making narrative: 33-year-old female suspect viral URI. She had no testing was started on Zithromax and Augmentin by an urgent care. I think the diarrhea is from the antibiotics. Should be treated with IV fluids. Zofran for nausea. Screening labs and chest x-ray. Repeat exam at 3:15 PM patient doing well. Exam unchanged. We went over her test results. Clinically think she has a viral URI. She will stop the Augmentin. She will finish the Zithromax because she has been on it. She only has 2 more days worth. She be written for Zofran for nausea. Patient is comfortable with the plan. History & Record Review Discussion w/independent historian: Patient Additional record(s) reviewed:: Prior inpatient record, Prior outpatient record, Prior ED visit and Prior labs Lab Data Attestation: I reviewed the patient's lab results. Lab results narrative: This is a white count of 5. H&H 11.5 and 34.1. Platelets 400. Electrolytes show gap 9. Normal BUN 9 and creatinine 0.5. Glucose 93. COVID and flu and RSV negative. Labs: Laboratory Results - last 24 hr 07/10/24 14:00 WBC 5.7 RBC 4.06 L Hgb 11.5 L Hct 34.1 L MCV 84.0 MCH 28.3 MCHC 33.7 RDW Std Deviation 37.7 RDW Coeff of Ever 12.3 Plt Count 400 MPV 9.0 Immature Gran % (Auto) 0.400 Neut % (Auto) 48.8 Lymph % (Auto) 40.1 [place] % (Auto) 6.8 Eos % (Auto) 3.0 Baso % (Auto) 0.9 Absolute Neuts (auto) 2.8 Absolute Lymphs (auto) 2.29 Nucleated RBC % 0 Sodium 142 Potassium 3.8 Chloride 105 Carbon Dioxide 28.0 Anion Gap 9 BUN 9 Creatinine 0.59 Estim Creat Clear Calc 124.33 Est GFR (MDRD) Af Amer 149 Est GFR (MDRD) Non-Af 123 BUN/Creatinine Ratio 15.2 Glucose 93 Calcium 9.3 Radiography Chest X-Ray - ED: 2 View, Read by ED Physician, Read by Radiologist, Normal, Heart, Lungs, Mediastinum, Bony Structures and No Acute Disease Diagnostic Testing: Clinical Impression(s) from Imaging Studies Chest X-Ray 07/10/24 13:42 IMPRESSION: NEGATIVE CHEST Reading Location: [place] [id number] Chest x-ray, 2 views, AP and lateral, interpreted both by the radiologist and myself shows no acute abnormality. Normal cardiac silhouette. Normal lung mark. No effusion. No pneumonia. Discharge Plan Triage Chief Complaint: Dizziness ED Provider: Gonzalo Blanco Dx/Rx/DC Orders Clinical Impression: Viral URI, Diarrhea Instructions: ED URI, Viral, No Abx (Adult) Prescriptions: New ondansetron 4 mg tablet,disintegrating 4 mg PO Q6H PRN (Reason: nausea and vomiting) Qty: 10 0RF No Action cyclobenzaprine 7.5 mg tablet 7.5 mg PO QHS PRN (Reason: muscle spasm) Qty: 20 0RF azithromycin 250 mg tablet Patient Comments: TAKE 2 TABLETS BY MOUTH ON DAY 1, THEN 1 TABLET DAILY ON DAYS 2-5 benzonatate 100 mg capsule 200 mg PO TID PRN PRN (Reason: cough) amoxicillin-pot clavulanate 875-125 mg tablet 1 tab PO BID desvenlafaxine succinate 50 mg tablet extended release 24 hr 50 mg PO DAILY Qty: 90 1RF omeprazole 40 mg capsule,delayed release(DR/EC) 40 mg PO BID Qty: 60 2RF ondansetron 4 mg tablet,disintegrating 4 mg PO Q6H PRN (Reason: nausea and vomiting) Qty: 90 2RF Primary Care Provider: Care Physician,No Primary Referrals: jose martin [Other] quentin [Other] Wale Erwin MD [Med Staff - Active Staff] - 3-5 Days if not improving Care Physician,No Primary [Primary Care Provider] - Activity Restrictions/Additional Instructions: Plenty of fluids and rest. Slowly increase your diet as tolerated. Zofran as needed for nausea. Clinically, I think you have a virus and you never had pneumonia. I would completely stop the Augmentin because it will irritate your stomach and cause worse diarrhea. If you want to you can finish the Zithromax. Print Language: Mohawk Disposition Disposition: Home, Self Care
[2024-07-10] MEDS: 0.9% Normal Saline (1000mL) 1,000 ML 1000 ML IV (13:57)
[2024-07-10] MEDS: Ondansetron 4 MG/2 ML Vial IV (13:57)
[2024-07-10 14:08] LABS: Absolute Lymphocyte Count 2.29 X10^3/uL (0.83-4.51); Absolute Neutrophil Count 2.8 X10^3/uL (2.0-7.7); Basophil# 0.05 X10^3/uL; Basophil% 0.9 % (0-1); Eosinophil# 0.17 X10^3/uL; Hematocrit 34.1 % (37-47); Hemoglobin 11.5 g/dL (12.0-15.0); Lymphocyte # 2.29 X10^3/ul (0.83-4.51); Lymphocyte % 40.1 % (19-41); Mean Corp Hgb Conc 33.7 g/dL (32-36); Mean Corpuscular Hgb 28.3 pg (27.0-32.0); Monocyte# 0.39 X10^3/uL; Monocyte% 6.8 % (0-10); NRBC Flagged by Analyzer 0 % (0-5); Neutrophil # 2.79 X10^3/uL (2.7-7.7); Neutrophil % 48.8 % (47-70); Platelet Count 400 K/mm3 (150-450); RBC Distribution Width CV 12.3 % (11.6-14.6); RBC Distribution Width SD 37.7 fl (35.1-43.9); Red Blood Count 4.06 M/mm3 (4.2-5.4); White Blood Count 5.7 K/mm3 (4.4-11.0)
[2024-07-10 14:25] LABS: Anion Gap 9 (5-15); BUN 9 mg/dL (7-18); BUN/Creat Ratio 15.2 RATIO (10-20); Calcium,Total 9.3 mg/dL (8.5-10.1); Chloride 105 mmol/L (98-107); Creatinine, Serum 0.59 mg/dL (0.55-1.02); EST Glomerular Filtration Rate 123 mL/min (>60); Est Glom Filt Rate - Afr Amer 149 mL/min (>60); Estimated Creatinine Clearance 124.33 ml/min; Glucose 93 mg/dL (74-106); Potassium 3.8 mmol/L (3.5-5.1); Sodium Level 142 mmol/L (136-145)
[2024-07-10 15:00] VITALS: BP 107/76; PULSE 79; RESP 15; TEMP 36.6; O2SAT 100
--- NOTE | 2024-07-10 15:32 | CM.ED ---
Social Work SW spoke with patient who stated that she had a primary care physician in the past but they quit without notice. Since then, she had not been able to find a new provider. SW gave patient [facility] provider list. No further needs identified. Sindi García, INDUSTRIAL HYGENIST, SENIOR ELECTRICAL PROJECT MANAGER
[2024-07-10 15:38] VITALS: BP 112/65; PULSE 77; RESP 16; TEMP 36.9; O2SAT 95
== END 2024-07-10 15:43 | disposition home or self-care (01) ==
PROVIDERS: Emergency Provider Emergency Medicine; Visit Provider Emergency Medicine
DX: R42 Dizziness and giddiness (principal); E11.9 Type 2 diabetes mellitus without complications; J06.9 Acute upper respiratory infection, unspecified; R19.7 Diarrhea, unspecified; I10 Essential (primary) hypertension; Z87.891 Personal history of nicotine dependence; R11.0 Nausea; E78.00 Pure hypercholesterolemia, unspecified; B97.89 Other viral agents as the cause of diseases classified elsewhere; K21.9 Gastro-esophageal reflux disease without esophagitis; Z79.899 Other long term (current) drug therapy; F41.8 Other specified anxiety disorders; Z98.51 Tubal ligation status; Z90.49 Acquired absence of other specified parts of digestive tract
CPT/HCPCS: 71046; 80048; 85025; 87631; 96361; 96374; 99283; J2405

== ENCOUNTER → 2024-08-24 | Outpatient (CLI) | payer MEDICARE, MEDICAID, SELFPAY ==
--- NOTE | 2024-08-24 09:33 | RAD_ITS ---
PROCEDURE: LUMBAR SPINE 2 OR 3 VIEWS 08/24/2024 REASON FOR EXAM: CHRONIC BACK PAIN, PAIN DOWN BOTH LEGS TECHNIQUE: 2 view(s) of the lumbar spine COMPARISON: None available FINDINGS: No fracture or malalignment. The disc spaces appear within limits. SI joints appear within limits as imaged. RAD/Lumbar Spine 2 or 3 Views IMPRESSION: Study appears with Reading Location: [id number]
[2024-08-24 11:27] LABS: Hemoglobin A1c 5.1 % (<=5.6)
== END | disposition home or self-care (01) ==
LOC: MTLAB 09:33
PROVIDERS: PCP Internal Medicine; Referring Provider Physician Assistant; Visit Provider Physician Assistant
DX: Z13.1 Encounter for screening for diabetes mellitus (principal); M54.50 Low back pain, unspecified; G89.29 Other chronic pain
CPT/HCPCS: 36415; 72100; 83036

== ENCOUNTER → 2024-09-19 | Outpatient (CLI) | payer MEDICARE, MEDICAID, SELFPAY ==
[2024-09-19 17:58] LABS: Vitamin D,25 Hydroxy 26.5 ng/mL (30-100)
== END | disposition home or self-care (01) ==
LOC: BIMLAB 11:57
PROVIDERS: PCP Internal Medicine; Referring Provider Internal Medicine; Visit Provider Internal Medicine
DX: E55.9 Vitamin D deficiency, unspecified (principal)
CPT/HCPCS: 36415; 82306

== ENCOUNTER → 2024-10-06 | Outpatient (CLI) | payer MEDICARE, MEDICAID, SELFPAY ==
--- NOTE | 2024-10-06 11:00 | MRI_ITS ---
PROCEDURE: SPINE LUMBAR (ROUTINE) 10/06/2024 REASON FOR EXAM: PAIN, LUMBAR RADICULOPATHY TECHNIQUE: Multiplanar and multisequence images were obtained without IV contrast administration. FINDINGS: No fracture or malalignment. Vertebral marrow signal appears within limits. Conus Medullaris: Appears to terminate at T12-L1 and is normal in morphology. Cauda equina appears within limits. L1-2: Appears within limits L2-3: Appears within limits L3-4: Mild disc desiccation. No significant appearing loss of disc height. Disc otherwise appears within limits. No central or foraminal narrowing. L4-5: Disc desiccation with mild broad-base left paracentral foraminal disc bulge. The exiting left L4 nerve appears within limits without evidence of compression. This appears to be in contact with and slightly displacing the traversing left L5 nerve without obvious compression, axial 20. No significant appearing foraminal narrowing. L5-S 1: Mild disc desiccation with a small central disc bulge without significant appearing central or foraminal narrowing. Limited images of the retroperitoneum appears within limits. 2 cm thick appearing endometrium may represent endometrial thickening with endometrial canal fluid not excluded. Correlate with menstrual cycle and may consider follow-up nonemergent pelvic ultrasound. Small amount of pelvic free fluid noted. Small follicle seen in bilateral ovaries. MRI/Spine Lumbar (Routine) IMPRESSION: L4-5: Disc desiccation with mild broad-base left paracentral foraminal disc bul ge. The exiting left L4 nerve appears within limits without evidence of compression. This appears to be in contact with and slightly displacing the traversing left L5 nerve without obvious compression, axial 20. No significant appearing foraminal narro wing. 2 cm thick appearing endometrium may represent endometrial thickening with endo metrial canal fluid not excluded. Correlate with menstrual cycle and may consider follow-up nonemergent pelvic ultrasound. Smal l amount of pelvic free fluid noted. Reading Location: [id number]
== END | disposition home or self-care (01) ==
PROVIDERS: PCP Internal Medicine; Referring Provider Nurse Practitioner Family; Visit Provider Student in an Organized Health Care Education/Training Program
DX: M54.16 Radiculopathy, lumbar region (principal)
CPT/HCPCS: 72148

== ENCOUNTER → 2024-12-03 | Outpatient (CLI) | payer OTHER, MEDICAID, SELFPAY ==
[2024-12-06 06:08] LABS: Chlamydia By Nucleic Acid AMP Negative (Negative); Gonococcus By Nucleic Acid AMP Negative (Negative)
== END | disposition home or self-care (01) ==
LOC: LABSPEC 15:42
PROVIDERS: PCP Internal Medicine; Referring Provider Nurse Practitioner Women's Health; Visit Provider Nurse Practitioner Women's Health
DX: Z11.3 Encounter for screening for infections with a predominantly sexual mode of transmission (principal); N89.8 Other specified noninflammatory disorders of vagina
CPT/HCPCS: 87070; 87205; 87491; 87591

== ENCOUNTER → 2025-01-04 | Outpatient (CLI) | payer MEDICARE, MEDICAID, SELFPAY ==
[2025-01-04 16:35] LABS: Hematocrit 33.1 % (37-47); Hemoglobin 11.3 g/dL (12.0-15.0); Mean Corp Hgb Conc 34.1 g/dL (32-36); Mean Corpuscular Volume 85.3 fL (81-99); Mean Platelet Vol. 9.1 fl (6.2-12.0); Platelet Count 313 K/mm3 (150-450); RBC Distribution Width CV 13.8 % (11.6-14.6); RBC Distribution Width SD 42.6 fl (35.1-43.9); Red Blood Count 3.88 M/mm3 (4.2-5.4); White Blood Count 4.6 K/mm3 (4.4-11.0)
[2025-01-04 17:10] LABS: Iron 35 ug/dL (50-170); Iron Binding Capacity,Total 335 ug/dL (250-450); Iron Binding Capacity,Unsat 300 ug/dL (228-428)
== END | disposition home or self-care (01) ==
PROVIDERS: PCP Internal Medicine; Referring Provider Obstetrics & Gynecology; Visit Provider Obstetrics & Gynecology
DX: R53.83 Other fatigue (principal)
CPT/HCPCS: 36415; 83540; 83550; 85027

== ENCOUNTER 2025-01-05 23:26 | Emergency (ER) | payer MEDICARE, MEDICAID, SELFPAY ==
[2025-01-05 23:27] VITALS: BP 119/70; PULSE 97; RESP 13; TEMP 36.9; O2SAT 100; BMI 33.2
--- NOTE | 2025-01-05 23:37 | ED.RN ---
states she was previously diagnosed with iron deficiency anemia states she had a menstrual period from 12-18 through 01-03 with heavy bleeding, and started her period again today.
--- OUTSIDE RECORDS SUMMARY | 2025-01-05 23:54 | XMS RPT_ITS | CCD ---
Author Organization [facility] Care Team Providers Care In File Operator Name Role Phone [employer] DRIVER, Afsaneh Kovacs Unavailable [phone] Unavailable Primary Care Provider Dr. Deon Holguin Primary Care Provider [phone] Dr. Deon Alfaro Referring Provider [phone] Dr. Es Cline Attending Provider [phone] Dr. Azucena Cadena Attending Provider [phone] Dr. Deon Alfaro Attending Provider [phone] Dr. Deon Alfaro Primary Care Provider [phone] Dr. Deon Alfaro Referring Provider [phone] Dr. Es Cline Attending Provider 1(3 30) Deon Alfaro MD Primary Care Provider [phone] [phone]) Dr. Deon Alfaro Primary Care Provider [phone] Dr. Deon Alfaro Attending Provider [phone] Dr. Deon Alfaro Referring Provider [phone] Dr. Es Cline Attending Provider 1(3 30) Dr. Krista Parker Attending Provider [phone] Dr. Krista Parker Primary Care Provider Dr. Doen Alfaro Primary Care Provider [phone] Dr. Deon Alfaro Referring Provider Mega Cordova DO Primary Care Provider Deon Alfaro B Primary Care Provider Dr. Krista Parker Primary Care Provider Dr. Krista Parker Referring Provider Dr. Es Cline Attending Provider [phone] Dr. Es Cline Referring Provider Dr. Es Cline Other Provider DO Mega Cordova Primary Care Provider Dr. Es Cline Attending Provider Dr. Krista Parker Referring Provider Deon Alfaro Primary Care Provider Dr. Es Cline Attending Provider DO Mega Cordova M Primary Care Provider DO Mega Cordova M Referring Provider MD Hai Sanchez Attending Provider Dr. Que Virgen Attending Provider Deon Alfaro B Primary Care Provider DO Tasha Mega M Primary Care Provider Tasha, DO Mega M Referring Provider MD Hai Sanchez Attending Provider CAROLYN Guevara Attending Provider JOAQUÍN Koo Attending Provider DO Tasha Mega M Primary Care Provider Tasha, DO Mega M Referring Provider CAROLYN Way Attending Provider Gwendolyn COMPANY DRIVER, COMPANY DRIVER-C Afsaneh Attending Provider [phone] Dr. Es Cline Attending Provider [phone] Mega Cordova DO Primary Care Provider System, Provider Not In Primary Care Provider Un available ARCADIO NGUYỄN Attending Unavailable SYSTEM, PROVIDER NOT IN Primary Care Unavailaugustine Bassett ROOF TRUSS DETAILERHUNG, Renea M Primary Care Provider PHYSICIAN, NONE Primary Care Physician Unavailab le Unavailable Primary Care Provider Unavailabl e DARI WHITE Referring Unavailable SERJIO RENEA M Primary Care Unavailable AGA RDZ Attending Unavailable SELF Referring Unavailable SANTINO AGUILERA Attending Unavailable SELF Referring Unavailable SELF Referring Unavailable LORY DEL ROSARIO Attending Unavailable MEGA CORDOVA Primary Care Unavailabl e VARINDERO, RENEA M Primary Care Unavailable Justin COMPANY DRIVER-C, Vidhya Attending Provider [phone] Justin COMPANY DRIVER-C, Vidhya Referring Provider [phone] Care Physician, No Primary Primary Care Provider Unavailable Serjio COMPANY DRIVER-C, Renea Referring Provider [phone] Maira Dowell Attending Provider Dr. Gonzalo Blanco MD Attending Provider [phone] Dr. Gonzalo Blanco MD Emergency Provider Care Physician, No Primary Referring Provider Un available Daniel Lam Attending Provider Altaf Garcia Attending Provider [phone] ANAI PIERRE Other Provider Altaf Garcia Referring Provider [phone] Steph Camacho MD Primary Care Provider Care Physician, No Primary Primary Care Provider Unavailable Dr. Steph Camacho MD Referring Provider Alisson Capps Attending Provider [phone] Promise JUAREZ, Dr. Grey Attending Provider Dr. Steph Camacho MD Attending Provider Dr. Es Cline DO Attending Provider José COMPANY DRIVER-C, Tia Referring Provider Care Physician, No Primary Primary Care Provider Unavailable Care Physician, No Primary Referring Provider Un available Gwendolyn [employer] DRIVER-C, Afsaneh Attending Provider [employer] DRIVER-C, Afsaneh Referring Provider STEPH CAMACHO MD Primary Care Physician Ferullo, Renea Primary Care Unavailable Everette Way Attending Unavailable Everette Way Referring Unavailable Anedrson, Vidhya Referring Unavailable Ferullo, Renea Primary Care Unavailable Vidhya Anderson Attending Unavailable Afsaneh Snow Attending Unavailable [place], Steph Referring Unavailable Janice, Steph Primary Care Unavailable James Alvarado Attending Unavailable James Alvarado Referring Unavailable Ferullo, Renea Primary Care Unavailable Care Physician, No Primary Primary Care Unava ilable Gonzalo Blanco Attending Unavailable [place], Steph Referring Unavailable Janice, Steph Primary Care Unavailable [place], Steph Attending Unavailable Ferullo, Renea Referring Unavailable Ferullo, Renea Primary Care Unavailable Bo Simms Attending Unavailable José COMPANY DRIVER, Tia Referring Unavailable JoséAlisson underwood Attending Unavailable Janice, Steph Primary Care Unavailable Care Physician, No Primary Primary Care Unava ilable Care Physician, No Primary Referring Unava ilable Altaf Garcia Attending Unavailable Ferullo, Renea Referring Unavailable Ferullo, Renea Primary Care Unavailable Vidhya Anderson Attending Unavailable Alisson Kumar Attending Unavailable Janice, Steph Referring Unavailable [place], Steph Primary Care Unavailable Ferullo, Renea Referring Unavailable Maira Lawrence Attending Unavailable Justin, Vdihya Referring Unavailable Care Physician, No Primary Primary Care Unava ilable Vidhya Anderson Attending Unavailable Afsaneh Snow Attending Unavailable [employer], Molly Referring Unavailable [place], Steph Primary Care Unavailable Ferullo, Renea Referring Unavailable Ferullo, Renea Primary Care Unavailable Ferullo, Renea Attending Unavailable Vidhya Anderson Attending Unavailable Justin, Vidhya Referring Unavailable Ferullo, Renea Primary Care Unavailable Altaf Garcia Attending Unavailable Altaf Garcia Referring Unavailable CRAIG Consulting Unavailable Janice, Steph Primary Care Unavailable Care Physician, No Primary Primary Care Unava ilable Care Physician, No Primary Referring Unava ilable Daniel Tapia Attending Unavailable Que Virgen Attending Unavailable Janice, Steph Primary Care Unavailable Care Physician, No Primary Referring Unava ilable Janice, Steph Attending Unavailable [place], Steph Primary Care Unavailable Janice, Steph Referring Unavailable [place], Steph Primary Care Unavailable Es Cline Attending Unavailabl e Ferullo, Renea Referring Unavailable Ferullo, Renea Primary Care Unavailable Feranahio, Renea Attending Unavailable Ferullo, Renea Primary Care Unavailable Gonzalo Blanco Attending Unavailable Ferullo, Renea Referring Unavailable Ferullo, Renea Primary Care Unavailable Everette Way Attending Unavailable Vidhya Anderson Attending Unavailable Ferullo, Renea Referring Unavailable Ferullo, Renea Primary Care Unavailable Alisson Kumar Attending Unavailable [place], Steph Referring Unavailable [place], Steph Primary Care Unavailable Ferullo, Renea Referring Unavailable Ferullo, Renea Primary Care Unavailable Friend, Bo Consulting Unavailable Friend, Bo Attending Unavailable Afsaneh Snow Attending Unavailable [place], Steph Referring Unavailable Janice, Steph Primary Care Unavailable Friend, Bo Attending Unavailable Vidhya Anderson Attending Unavailable Vidhya Anderson Referring Unavailable Ferullo, Renea Primary Care Unavailable OLEGHE, EFEWONGBE Primary Care Unavailable ANAI PIERRE Attending Unavailable ANAI PIERRE Attending Unavailable OLEGHE, EFEWONGBE Primary Care Unavailable OLEGHE, EFEWONGBE Primary Care Unavailable ANAI PIERRE Attending Unavailable OLEGHE, EFEWONGBE Primary Care Unavailable ANAI PIERRE Attending Unavailable CHRIS KOHLI DO Attending Unavailable PHYSICIAN, NONE Primary Care Unavailable RENEA CASAREZ DO Attending Unavailable PHYSICIAN, NONE Primary Care Unavailable JANICE JUAREZ, STEPH Schulz Primary Care Unavailable VALENTINA SANTILLAN MD Attending Unavailable STEPH CAMACHO MD Primary Care Unavailable GEMMA BROOKLYNN CAMPOVERDE Attending Unavailab le Allergies Allergy Classification Reported Allergen(s) Allergy Type Date of Onset Reaction(s) Facility (1 source) naproxen Drug Allergy 7 [facility] (1 source) varenicline Drug Allergy 7 [facility] (20 sources) Naproxen; Translations: [NAPROXEN] Drug Allergy 1 Other (See Comments), Other: See Comments, Other [place], [place] Comment on above: night sweats, fever, and hives (20 sources) varenicline; Translations: [varenicline tartrate] Drug Allergy 0 Other (See Comments) [place] Comment on above: night sweats, fever, and hives (20 sources) varenicline; Translations: [VARENICLINE] Drug Allergy 0 Other: See Comments, Other, Other (See Comments) [facility] (16 sources) MITE EXTRACT; Translations: [MITE EXTRACT] Drug Allergy 9 Other: See Comments [facility] (20 sources) House dust mite Propensity to adverse reactions 9 Other [facility] (20 sources) Mold Extract Drug Allergy 9 Other, Other (See Comments) [facility] (2 sources) Indian house dust mite allergenic extract / house dust mite allergenic extract; Translations: [ALLERG XT,D.FARINAE-D. PTERONYS] Drug Allergy 9 Other (See Comments) [facility] (1 source) Mold Extract; Translations: [MOLD] Drug Allergy 9 [facility] (7 sources) metFORMIN Drug Allergy 5 Rash [facility] (7 sources) Phentermine Drug Allergy 5 Other [facility] (5 sources) Amoxicillin Drug Allergy 5 Vomiting [facility] (5 sources) Clavulanate Drug Allergy 5 Vomiting [facility] (1 source) Amoxicillin Drug Allergy 5 [facility] (1 source) Clavulanate Drug Allergy 5 [facility] (1 source) Naproxen Drug Allergy 5 [facility] Medications Current Medications Medication Drug Class(es) Dates Sig (Normalized) Sig (Original) acetaminophen 325 mg / HYDROcodone bitartrate 5 mg oral tablet (1 source) Opioid Agonist Start: 05-04-2024 End: 05-07-2024 take 1 tablet by mouth every six hours as needed for pain [place] 325- 5 mg oral tablet Dose = 1 tab(s), Oral, q6h, PRN as needed for pain, X 3 day(s), # 12 tab(s), 0 Refill(s), Back pain Start Date: 05/04/24 Stop Date: 05/07/24 Status: Ordered [id number] 200 actuat albuterol 0.09 mg/actuat metered dose inhaler (20 sources) beta2-Adrenergic Agonist Start: 03-30-2024 take 2.5 mg by inhalation every four hours as needed albuterol (PROVENTIL) 2.5 mg /3 mL (0.083 %) nebulizer solution Use 3 mL via nebulizer every 4 hours as needed for wheezing/shortnes s of breath. Use over 5-15minutes. 90 mL 03/30/2024 Active Start: 03-30-2024 End: 07-10-2024 take 2 puff(s) by inhalation every four hours as needed for wheezing albuterol HFA (PROVENTIL HFA, VENTOLIN HFA) 90 mcg/actuation inhaler Inhale 2 Puffs as instructed every 4 hours as needed for wheezing/shortness of breath. 8 g 07/10/2024 Active Start: 05-11-2019 End: 06-28-2019 Albuterol Sulfate (Ventolin Hfa) 90 mcg/actuation HFA aerosol inhaler Discontinued 1 NMA INHALATION EVERY 6 HOURS as needed for shortness of breath or wheezing 8.5 3 May 11, 2019 12:14pm June 28, 2019 2:16pm Start: 05-11-2019 End: 06-28-2019 take 1 puff(s) by inhalation every six hours Albuterol Sulfate (Ventolin Hfa) 90 mcg/actuation HFA aerosol inhaler Discontinued 1 PUFF INHALATION EVERY 6 HOURS 8.5 May 11, 2019 11:14am June 28, 2019 1:16pm Start: 05-20-2016 take 1 puff(s) by mo uth every four to six hours albuterol 108 (90 Base) MCG/ACT inhaler inhale 1 puff by mouth every 4 to 6 hours if needed for 5 days 03/07/2022 Active Start: 05-20-2016 End: 06-06-2024 take 2 puff(s) by inhalation every six hours as needed for wheezing albuterol HFA (PROVENTIL HFA, VENTOLIN HFA) 90 mcg/actuation inhaler Inhale 2 Puffs as instructed every 6 hours as needed for Wheezing/Shortness of Breath. 1 Inhaler 05/20/2016 06/06/2024 Discontinued Start: 07-17-2015 End: 03-30-2025 albuterol (PROVENTIL) 5 mg/m L nebu Indications: Exacerbation of asthma, unspecified asthma severity, unspecified whether persistent Inhale 0.5 mL as instructed one time only. 1 DOSE NOW - BACK OFFICE. PLACE 0.5 ML PER DROPPER AND 2.5 ML OF NORMAL SALINE INTO RESERVOIR. 1 mL 03/30/2024 06/06/2024 Discontinued Start: 05-19-2014 End: 08-02-2017 Albuterol Sulfate 1 PUFF inh aler Discontinued 1 - 2 NMA INHALATION EVERY 4 HOURS NEEDED as needed for Shortness Of Breath May 19, 2014 1:00am August 02, 2017 9:49am Start: 05-19-2014 End: 08-02-2017 take 1 puff(s) by inhalation every four hours as needed Albuterol Sulfate Discontinued 1 - 2 PUFF INHALATION EVERY 4 HOURS NEEDED May 19, 2014 12:00am August 02, 2017 8:49am Comment on above: Inhale 2 Puffs as in structed every 6 hours as needed for Wheezing/Shortness of Breath. aluminum chloride 200 mg/ml topical solution (13 sources) Start: 07-22-2023 End: 06-12-2024 aluminum chloride (DRYSOL) 20 % external solution APPLY TO CLEAN AREAS AT NIGHT 60 mL 2 06/12/2024 Active Start: 07-22-2023 Drysol Dab-O-M atic 20 % external solution Apply to clean areas at night 0 07/22/2023 Active Comment on above: Apply to clean areas at night amoxicillin 875 mg oral tablet (20 sources) Penicillin-class Antibacterial Start: 2 End: 2 take 1 tablet by mouth twice daily amoxicillin (AMOXIL) 875 mg tablet Take 1 tablet by mouth twice daily for 7 days. 14 tablet 0 01/11/2022 01/18/2022 Active Start: 05-29-2021 End: 06-08-2021 take 1 capsule by mouth twice daily Amoxicillin 500 mg capsule Discontinued 500 mg PO TWICE A DAY 20 10 May 29, 2021 1:00am June 07, 2021 1:00am June 08, 2021 1:01am Start: 04-08-2019 End: 05-07-2019 take 1 tablet by mouth twice daily Amoxicillin 875 mg tablet Discontinued 875 mg PO TWICE A DAY 20 April 08, 2019 1:00am May 07, 2019 2:10pm Comment on above: Take 1 tablet by shirin th twice daily for 7 days. ARIPiprazole 5 mg oral tablet (20 sources) Atypical Antipsychotic Start: 11-04-19 End: 03-30-20 24 take 1 tablet by mouth once daily [...] 1 capsule by mouth daily. 0 Active 12 hr buPROPion hydrochloride 90 mg / naltrexone hydrochloride 8 mg extended release oral tablet (4 sources) Opioid Antagonist, Aminoketone Start: 08-30-2024 naltrexone-buPROPion ER (Contrave) 8-90 MG ER tablet Indications: BMI 30.0-30.9,adult , Class 1 obesity due to excess calories with serious comorbidity and body mass index (BMI) of 30.0 to 30.9 in adult TIMES DAILY, Week 1: 1 tab a.m Week 2: 1 tab a.m. and 1 tab p.m. Week 3: 2 tabs a.m. and 1 tab p.m. Week 4: 2 tabs a.m. and 2 tab p.m. 120 tablet 08/30/2024 Active cephalexin 500 mg oral capsule (20 sources) Cephalosporin Antibacterial Start: 05-04-2024 End: 05-11-2024 cephalexin 500 mg oral capsule Dose : 500 mg = 1 cap(s), Oral, q12h, X 7 day(s), # 14 cap(s), 0 Refill(s), 05/11/24 8:50:00 PM EST Start Date: 05/04/24 Stop Date: 05/11/24 Status: Ordered Start: 04-21-2020 End: 04-23-2020 take 1 capsule by mouth every six hours Cephalexin (Keflex) 500 mg capsule Discontinued 500 mg PO EVERY 6 HOURS 20 5 0 April 21, 2020 1:00am April 25, 2020 1:00am April 23, 2020 1:33pm Start: 12-10-2019 End: 12-17-2019 take 1 capsule by mouth three times daily Cephalexin (Keflex) 500 mg capsule Discontinued 500 mg PO THREE TIMES A DAY 21 7 0 December 10, 2019 12:00am December 16, 2019 12:00am December 17, 2019 12:02am space evenly during waking hours cholecalciferol 0.025 mg oral capsule (20 sources) Vitamin D Start: 06-24-2022 take 25 ug by mouth once daily Cholecalciferol (Vitamin D3) Active 25 MCG PO DAILY June 24, 2022 12:00am Start: 10-27-2020 End: 02-20-2021 take 1 capsule by mouth once daily Cholecalciferol (Vitamin D3) 125 mcg (5,000 unit) capsule Discontinued 125 ug PO DAILY October 27, 2020 12:00am February 20, 2021 1:56pm cholecalciferol (Vitamin D-3) 50 MCG (2000 UT) tablet Take by mouth daily. Active clindamycin 10 mg/ml topical lotion (20 sources) Lincosamide Antibacterial Start: 06-14-2023 clindamycin (Cleocin T) 1 % lotion Apply to affected area in the morning 06/14/2023 Active Start: 10-26-2018 End: 10-29-2018 Clindamycin Phosphate (Cleoc in) 2 % cream Discontinued 1 NMA VAGINAL AT BEDTIME 40 3 0 October 26, 2018 12:00am October 28, 2018 12:00am October 29, 2018 12:07am Start: 10-26-2018 End: 10-29-2018 Clindamycin Phosphate (Cleoc in) 2 % cream Discontinued 1 APPFUL VAGINAL AT BEDTIME 40 3 October 25, 2018 11:00pm October 28, 2018 11:07pm Comment on above: Apply to affected ar ea in the morning 24 hr desvenlafaxine succinate 50 mg extended release oral tablet (20 sources) Serotonin and Norepinephrine Reuptake Inhibitor Start: 023 End: 025 take 1 tablet by mouth once daily desvenlafaxine (Pristiq) 50 MG 24 hr tablet Take 50 mg by mouth daily. 10/29/2022 Active Start: 08-31-2022 End: 10-29-2022 Desvenlafaxine Succinate (Pr istiq) 25 mg tablet extended release 24 hr Discontinued 50 mg PO AT BEDTIME 30 12 October 28, 2022 2:38pm October 29, 2022 8:44am Start: 07-30-2022 End: 01-13-2024 take 1 tablet by mouth once daily, then take 1 tablet by mouth every twenty-four hours Desvenlafaxine Succinate (Pristiq) 25 mg tablet extended release 24 hr Discontinued 25 mg PO DAILY 30 0 December 26, 2023 5:12pm January 13, 2024 11:41am Comment on above: Take 25 mg by mouth once daily. dicyclomine hydrochloride 20 mg oral tablet (20 sources) Anticholinergic Start: 01-13-20 take 1 tablet by mouth once daily as needed dicyclomine (Bentyl) 20 MG tablet Take 1 tablet by mouth daily as needed. 01/12/2023 Active Start: 01-12-2023 End: 10-26-2023 take 1 tablet by mouth three times daily as needed for pain Dicyclomine 20 mg tablet Discontinued 20 mg PO THREE TIMES A DAY as needed for abdominal pain 10 0 January 12, 2023 11:19am October 26, 2023 4:13pm Start: 04-01-2021 End: 04-15-2021 take 1 tablet by mouth twice daily as needed for pain Dicyclomine 20 mg tablet Discontinued 20 mg PO TWICE A DAY as needed for pain 28 14 0 April 01, 2021 1:00am April 14, 2021 1:00am April 15, 2021 1:01am doxycycline hyclate 100 mg oral tablet (1 source) Tetracycline-class Drug Start: 03-30-2024 End: 04-06-2024 take 1 tablet by mouth twice daily doxycycline (VIBRA-TABS) 100 mg tablet Take 1 tablet by mouth two times a day for 7 days. 14 tablet 03/30/2024 04/06/2024 Active dulaglutide (13 sources) GLP-1 Receptor Agonist Start: 12-19-2024 End: 03-19-2025 dulaglutide (Trulicity) 4.5 MG/0.5ML Indications: Insulin resistance , BMI 31.0-31.9,adult , Class 1 obesity due to excess calories with serious comorbidity and body mass index (BMI) of 31.0 to 31.9 in adult Inject 4.5 mg under the skin 1 (one) time per week. 4 each 2 12/19/2024 03/19/2025 Active Start: 11-26-2024 End: 12-19-2024 dulaglutide (Trulicity) 3 MG /0.5ML Indications: Insulin resistance , BMI 31.0-31.9,adult , Class 1 obesity due to excess calories with serious comorbidity and body mass index (BMI) of 31.0 to 31.9 in adult Inject 3 mg under the skin 1 (one) time per week. 4 each 1 11/26/2024 12/19/2024 Discontinued (Therapy completed) Start: 11-16-2024 inject 0.5 mL by sub cutaneous injection every week Trulicity Pen 3 mg/0.5 mL subcutaneous solution Dose : 3 mg = 0.5 mL, Subcutaneous, qWeek, rotate injection sites, # 2 mL, 0 Refill(s) Start Date: 11/16/24 Status: Ordered Quantity: 2.0 Unit: mL Repeat number: 1 Start: 11-07-2024 End: 01-06-2025 dulaglutide (Trulicity) 3 MG /0.5ML Indications: Insulin resistance , BMI 31.0-31.9,adult , Class 1 obesity due to excess calories with serious comorbidity and body mass index (BMI) of 31.0 to 31.9 in adult Inject 3 mg under the skin 1 (one) time per week. 4 each 1 11/07/2024 01/06/2025 Active Start: 10-17-2024 End: 11-07-2024 Trulicity 1.5 MG/0.5ML Indic ations: Insulin resistance , BMI 30.0-30.9,adult , Class 1 obesity due to excess calories with serious comorbidity and body mass index (BMI) of 30.0 to 30.9 in adult Inject 1.5 mg under the skin 1 time per week. 2 mL 10/17/2024 11/07/2024 Discontinued (Therapy completed) Start: 09-17-2024 Dulaglutide (T rulicity) 0.75 mg/0.5 mL pen injector Active 0.75 mg SC EVERY WEEK September 17, 2024 12:00am gabapentin 300 mg oral capsule (1 source) Anti-epileptic Agent Start: 11-16-2024 End: 12-16-2024 gabapentin 300 mg oral capsule Dose : 300 mg = 1 cap(s), Oral, qDay, 1 caps at bedtime, # 30 cap(s), 0 Refill(s), Pharmacy: [id number], Chronic lumbar radiculopathy Lumbosacral radiculitis, 78, kg, 11/16/24 10:52:00 EDT, Dosing Weight Start Date: 11/16/24 Stop Date: 12/16/24 Status: Ordered Quantity: 30.0 Unit: cap(s) Repeat number: 1 Indications: Radiculopathy, lumbar region; Radiculopathy, lumbosacral region; Inhalational Spacing Device (2 sources) Start: 07-10-2024 End: 07-10-2024 Inhalational Spacing Device 1 Device one time only for 1 dose. 1 Each 07/10/2024 07/10/2024 Active Lactobacillus acidophilus (20 sources) Lactobacillus (FLORAJEN ACIDOPHILUS PO) Take by [...] . 90 tablet 3 08/09/2023 08/08/2024 Active METAMUCIL FIBER PO (9 sources) METAMUCIL FIBER PO Take by mouth daily. Active methocarbamol 500 mg oral tablet (4 sources) Muscle Relaxant Start: 09-03-2024 take 1 tablet by mouth three times daily as needed for pain Methocarbamol 500 mg tablet Active 500 mg PO THREE TIMES A DAY as needed for pain/spasms 60 0 September 03, 2024 12:00am Multiple Vitamins-Minerals (HAIR/SKIN/NAILS/BIO TIN PO) (20 sources) Multiple Vitamins-Minerals (HAIR/SKIN/NAILS/BIO TIN PO) Take 100 mg by mouth. 2 [...] 100 mg by mouth . 0 Active Multivitamin preparation (6 sources) Start: 12-20-2022 take 1 tablet by mouth once daily Multivitamin Active 1 TABLET PO DAILY December 19, 2022 11:00pm Start: 12-20-2022 take 1 tablet by shirin once daily Multivitamin Active 1 TABLET PO DAILY December 20, 2022 12:00am naltrexone hydrochloride 50 mg oral tablet (9 sources) Opioid Antagonist Start: 06-25-2024 End: 08-12-2024 take 30-30.9 tablets by mouth once daily naltrexone (Depade) 50 MG tablet Indications: BMI 30.0-30.9,adult , Class 1 obesity due to excess calories with serious comorbidity and body mass index (BMI) of 30.0 to 30.9 in adult Take 1 tablet (50 mg) by mouth daily. 30 tablet 07/13/2024 Active Nirmatrelvir-Ritona vir (Paxlovid (Eua)) 300 mg (150 mg x 2)-100 mg tablet (2 sources) Start: 11-11-2021 Nirmatrelvir-Ritonavi r (Paxlovid (Eua)) 300 mg (150 mg x 2)-100 mg tablet Active 0 PO .COMPLEX November 11, 2021 12:00am take TWO 150 mg tablets of nirmatrelvir with ONE 100 mg tablet of ritonavir twice daily for 5 days PO [place] (Nk) (1 source) Start: 04-14-2022 [place] (Nk) Active April 14, 2022 12:00am omeprazole 40 mg delayed release oral capsule (20 sources) Proton Pump Inhibitor Start: 11-16-2024 take 1 capsule by mouth twice daily omeprazole 40 mg oral delayed release capsule TAKE 1 CAPSULE BY MOUTH 2 TIMES A DAY Start Date: 11/16/24 Status: Ordered Repeat number: 1 Start: 04-25-2024 End: 09-17-2024 take 1 capsule by mouth twice daily Omeprazole 40 mg capsule,delayed release(DR/EC) Active 40 mg PO TWICE A DAY 60 September 17, 2024 10:41am Start: 09-27-2017 End: 02-14-2018 take 1 capsule by mouth once daily Omeprazole 20 mg capsule,delayed release(DR/EC) Discontinued 20 mg PO daily 60 September 27, 2017 12:00am February 14, 2018 9:49am take 1 tablet by shirin th twice daily before mealtime omeprazole OTC (PriLOSEC OTC) 20 MG EC tablet Take 20 mg by mouth 2 times daily (before meals). Do not crush, chew, or split. Active ondansetron 4 mg oral tablet (20 sources) Serotonin-3 Receptor Antagonist Start: 11-16-2024 Zofran 4 mg oral tab let Dose : 4 mg = 1 tab(s), Oral, q4h, PRN Nausea/Vomiting, # 20 tab(s), 0 Refill(s) Start Date: 11/16/24 Status: Ordered Quantity: 20.0 Unit: tab(s) Repeat number: 1 Start: 11-28-2023 End: 12-12-2023 take 1 tablet by mouth every eight hours as needed for nausea Ondansetron 4 mg tablet,disintegrating Discontinued 4 mg PO EVERY 8 HOURS NEEDED as needed for Nausea 10 0 November 28, 2023 12:00am December 12, 2023 8:19am Start: 11-15-2023 End: 07-28-2024 take 1 tablet by mouth every six hours as needed for nausea and vomiting Ondansetron 4 mg tablet,disintegrating Discontinued 4 mg PO EVERY 6 HOURS as needed for nausea and vomiting 90 2 May 28, 2024 2:43pm July 28, 2024 11:26am Start: 08-16-2023 End: 05-08-2024 take 1 tablet by mouth every four hours as needed for nausea and nausea and nausea ondansetron ODT (Zofran-ODT) 4 MG disintegrating tablet Indications: Nausea Take 1 tablet (4 mg) by mouth every 4 hours as needed for nausea. 20 tablet 08/16/2023 Active Start: 01-12-2023 take 1 tablet by shirin th every four hours as needed ondansetron (ZOFRAN-ODT) 4 MG disintegrating tablet Dissolve 1 (one) tablet (4 mg total) on top of tongue every 4 (four) hours as needed . 0 01/12/2023 Active Start: 01-12-2023 End: 06-01-2023 take 1 tablet by mouth every eight hours as needed for nausea Ondansetron 4 mg tablet,disintegrating Discontinued 4 mg PO EVERY 8 HOURS NEEDED as needed for Nausea 10 0 January 12, 2023 12:00am June 01, 2023 3:54pm Start: 09-13-2022 End: 09-21-2022 take 1 tablet by mouth every four hours as needed for nausea and vomiting Ondansetron 4 mg tablet,disintegrating Discontinued 4 mg PO Q4H as needed for nausea and vomiting 20 0 September 13, 2022 12:00am September 21, 2022 9:51am Start: 09-13-2018 End: 09-18-2018 take 1 tablet by mouth every four hours as needed for nausea and vomiting Ondansetron 4 mg tablet,disintegrating Discontinued 4 mg PO Q4H as needed for nausea and vomiting 60 2 September 13, 2018 12:00am September 18, 2018 1:19pm Start: 09-08-2018 End: 09-13-2018 take 1 tablet by mouth every eight hours as needed for nausea Ondansetron Hcl 8 MG tablet Discontinued 8 mg PO EVERY 8 HOURS as needed for Nausea September 08, 2018 12:00am September 13, 2018 9:39am Start: 12-14-2017 End: 04-06-2018 Ondansetron Hcl (Zofran) 4 m g tablet Discontinued 4 mg PO 2 to 3 times per day as needed for nausea and vomiting 20 3 December 14, 2017 12:00am April 06, 2018 10:20am Start: 07-05-2017 End: 07-07-2017 take 1 tablet by mouth every eight hours as needed for nausea Ondansetron 4 MG tablet Discontinued 4 mg PO EVERY 8 HOURS NEEDED as needed for Nausea July 05, 2017 1:00am July 07, 2017 11:22am Start: 05-06-2017 End: 05-20-2017 take 1 tablet by mouth every eight hours as needed for nausea Ondansetron Hcl 8 MG tablet Discontinued 8 mg PO EVERY 8 HOURS NEEDED as needed for Nausea 20 0 May 06, 2017 1:00am May 20, 2017 2:42pm Start: 02-02-2017 End: 05-02-2017 take 1 tablet by mouth every eight hours as needed for nausea Ondansetron Hcl 8 MG tablet Discontinued 8 mg PO EVERY 8 HOURS NEEDED as needed for Nausea 20 February 02, 2017 12:00am May 02, 2017 9:34am Ondansetron HCl (ZOFRAN PO) Take by mouth as needed. Active Ozempic, 0.25 or 0.5 MG/DOSE, 2 MG/3ML solution pen-injector (9 sources) Start: 03-23-2024 inject 0.5 mg by subcutaneous injection every week Ozempic, 0.25 or 0.5 MG/DOSE, 2 MG/3ML solution pen-injector Indications: BMI 26.0-26.9,adult INJECT 0.5MG SUBCUTANEOUSLY EVERY WEEK 3 mL 03/23/2024 Active Start: 01-05-2023 End: 02-10-2023 inject 0.5 mg by subcutaneous injection every week Ozempic, 0.25 or 0.5 MG/DOSE, 2 MG/3ML solution pen-injector INJECT 0.5MG SUBCUTANEOUSLY EVERY WEEK 3 mL 0 01/05/2023 02/10/2023 Discontinued (Reorder) Start: 01-05-2023 inject 0.5 mg by sub cutaneous injection every week Ozempic, 0.25 or 0.5 MG/DOSE, 2 MG/3ML solution pen-injector INJECT 0.5MG SUBCUTANEOUSLY EVERY WEEK 3 mL 0 01/05/2023 Active polyethylene glycol 3350 45364 mg powder for oral solution (20 sources) Osmotic Laxative take 17 g by mouth every other day polyethylene glycol, PEG, 3350 (Miralax) 17 g packet Take 17 g by mouth every other day. Active semaglutide (Ozempic) 2 MG/3ML solution pen-injector (17 sources) Start: 07-29-19 inject 0.5 mg by subcutaneous injection every [...] 3 mL 0 07/29/2023 08/28/2023 Active semaglutide (OZEMPIC) 2 mg/dose (8 mg/3 mL) pen injector (11 sources) inject 2 mg by subcu taneous injection every week semaglutide (OZEMPIC) 2 mg/dose (8 mg/3 mL) pen injector Inject 2 mg subcutaneously one time a week. Active inject 2 mg by subcu taneous injection every week semaglutide (OZEMPIC) 2 mg/dose (8 mg/3 mL) pen injector Inject 2 mg subcutaneously one time a week. 0 Active Comment on above: Inject 2 mg subcutan eously one time a week. semaglutide (Ozempic, 0.25 or 0.5 MG/DOSE,) 2 MG/3ML solution pen-injector (18 sources) Start: inject 0.5 mg by subcutaneous injection every [...] week. 3 mL 0 02/10/2023 03/12/2023 Active semaglutide (Ozempic, 1 MG/DOSE,) 4 MG/3ML solution pen-injector (20 sources) Start: 01-16-2024 inject 1 mg by subcutaneous injection every week semaglutide (Ozempic, 1 MG/DOSE,) 4 MG/3ML solution pen-injector Indications: Insulin resistance Inject 1 mg under the skin 1 (one) time per week. 3 mL 1 01/16/2024 Active Start: 12-17-2023 End: 01-11-2024 inject 1 mg by subcutaneous injection [...] week. 3 mL 0 02/25/2023 03/27/2023 Active Semaglutide, 2 MG/DOSE, (Ozempic, 2 MG/DOSE,) 8 MG/3ML solution pen-injector (20 sources) Start: 06-06-2023 Semaglutide, 2 MG/DOSE, (Ozempic, [...] 08/08/2024 Active tretinoin 0.5 mg/ml topical cream (12 sources) Retinoid Start: 06-14-2023 tretinoin (RET IN-A) 0.05 % cream Apply a pea size amount to the area at night as tolerated 45 g 2 06/14/2023 Active Comment on above: Apply a pea size pavel unt to the area at night as tolerated zinc gluconate 50 mg oral tablet (9 sources) zinc 50 MG table t Take by mouth 1 (one) time each day. Active Completed/Discontinued Medications Medication Drug Class(es) Dates Sig (Normalized) Sig (Original) 1.1 ml HYDROXYprogesterone caproate (senior care) 250 mg/ml auto-injector (19 sources) Start: 10-19-2019 End: 01-17-2020 Hydroxyprogest(Pf )(Preg Presv) (Jenera (Pf)) 275 mg/1.1 mL auto-injector Discontinued 275 mg SC EVERY WEEK October 19, 2019 12:00am January 17, 2020 10:24am acetaminophen 325 mg / oxyCODONE hydrochloride 5 mg oral tablet (20 sources) Opioid Agonist Start: 09-07-2022 End: 09-21-2022 take 1-2 tablets by mouth every four hours as needed for pain Oxycodone-Acetami nophen (Percocet) 5-325 mg tablet Discontinued 1 {tbl} PO Q4H as needed for pain 15 7 0 September 07, 2022 September 21, 2022 9:51am 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) 1-2 tabs q 4 hrs as needed for pain Start: 11-20-2018 End: 11-27-2018 Oxycodone-Acetaminophen (Per cocet) 5-325 mg tablet Discontinued 1 {tbl} PO Q4H as needed for pain 20 5 0 November 22, 2018 November 26, 2018 12:00am November 27, 2018 12:06am Missed Start: 11-20-2018 End: 11-27-2018 take 1 tablet by mouth every four hours as needed Oxycodone-Acetaminophen Discontinued 1 - 2 TABLET PO EVERY 4 HOURS NEEDED 15 7 November 20, 2018 November 26, 2018 11:06pm Start: 05-06-2018 End: 05-13-2018 Oxycodone-Acetaminophen 1 TA BLET tablet Discontinued 1 - 2 {tbl} PO EVERY 4 HOURS NEEDED as needed for Pain 30 7 0 May 06, 2018 1:00am May 12, 2018 1:00am May 13, 2018 1:12am Acute appendicitis Unspecified acute appendicitis Start: 05-06-2018 End: 05-24-2018 Percocet 5-325 Discontinued 5 - 325 mg PO NEEDED as needed for Pain May 06, 2018 1:00am May 24, 2018 3:55pm Start: 05-06-2018 End: 05-13-2018 take 1 tablet by mouth every four hours as needed Oxycodone-Acetaminophen Discontinued 1 - 2 TABLET PO EVERY 4 HOURS NEEDED 30 7 May 06, 2018 12:00am May 13, 2018 12:12am Start: 05-06-2018 End: 05-24-2018 Percocet 5-325 Discontinued 5 - 325 MG PO NEEDED May 06, 2018 12:00am May 24, 2018 2:55pm Start: 05-06-2018 End: 05-24-2018 Percocet 5-325 Discontinued 5 - 325 MG PO NEEDED May 06, 2018 1:00am May 24, 2018 3:55pm Start: 05-06-2017 End: 05-20-2017 Oxycodone-Acetaminophen 1 TA BLET tablet Discontinued 1 - 2 {tbl} PO EVERY 6 HOURS NEEDED as needed for Pain 42 May 06, 2017 1:00am May 20, 2017 2:42pm Start: 05-06-2017 End: 05-20-2017 take 1 tablet by mouth every six hours as needed Oxycodone-Acetaminophen Discontinued 1 - 2 TABLET PO EVERY 6 HOURS NEEDED 42 May 06, 2017 12:00am May 20, 2017 1:42pm Start: 02-02-2017 End: 05-02-2017 Oxycodone-Acetaminophen 1 TA BLET tablet Discontinued 1 - 2 {tbl} PO EVERY 6 HOURS NEEDED as needed for Pain 60 February 02, 2017 12:00am May 02, 2017 9:33am Start: 02-02-2017 End: 05-02-2017 take 1 tablet by mouth every six hours as needed Oxycodone-Acetaminophen Discontinued 1 - 2 TABLET PO EVERY 6 HOURS NEEDED 60 February 01, 2017 11:00pm May 02, 2017 8:33am adapalene 0.003 mg/mg topical gel (9 sources) Retinoid Start: 06-02-2017 End: 03-30-2024 Adapalene 0.3 % gel Indications: Acne vulgaris , Cystic acne Apply a pea size amount to affected area every other night for 2 weeks then increase to daily as tolerated 45 g 5 06/02/2017 03/30/2024 Discontinued Comment on above: Apply a pea size pavel unt to affected area every other night for 2 weeks then increase to daily as tolerated albuterol 0.833 mg/ml / ipratropium bromide 0.167 mg/ml inhalation solution (3 sources) Anticholinergic, beta2-Adrenergic Agonist Start: 03-30-2024 End: 03-30-2024 ipratropium-albuterol 3 mL nebulizer solution (DUONEB) Start: 03-30-2024 End: 03-30-2024 take 1 dose by inhalation once 3 mL, INHALATION, ONCE, 1 dose, On Tue03/30/24 at 0930, PROTECT FROM LIGHT. The unit-dose vial should remain stored in the protective foil pouch until time of use. amoxicillin 875 mg / clavulanate 125 mg oral tablet (20 sources) Penicillin-class Antibacterial Start: 07-08-2024 End: 07-28-2024 Amoxicillin-Pot Clavulanate 875-125 mg tablet Discontinued 1 {tbl} PO TWICE A DAY July 10, 2024 1:00am July 28, 2024 11:26am Start: 05-10-2023 End: 06-01-2023 Amoxicillin-Pot Clavulanate 875-125 mg tablet Discontinued 1 {tbl} PO TWICE A DAY May 10, 2023 1:00am June 01, 2023 3:53pm Start: 05-10-2023 End: 06-01-2023 take 1 tablet by mouth twice daily Amoxicillin-Pot Clavulanate Discontinued 1 TABLET PO TWICE A DAY May 10, 2023 12:00am June 01, 2023 2:53pm Start: 01-23-2023 End: 06-01-2023 Amoxicillin-Pot Clavulanate 875-125 mg tablet Discontinued 1 {tbl} PO Q12H 14 0 January 23, 2023 12:00am June 01, 2023 3:53pm Start: 01-23-2023 End: 06-01-2023 take 1 tablet by mouth every twelve hours Amoxicillin-Pot Clavulanate Discontinued 1 TABLET PO Q12H 14 January 22, 2023 11:00pm June 01, 2023 2:53pm Start: 08-17-2022 End: 08-24-2022 take 1 tablet by mouth twice daily amoxicillin-clavulanic acid (AUGMENTIN) 875-125 mg per tablet Take 1 tablet by mouth twice daily for 7 days. 14 tablet 0 08/17/2022 08/24/2022 Active Comment on above: Take 1 tablet by shirin th twice daily for 7 days. aspirin 81 mg delayed release oral tablet (20 sources) Platelet Aggregation Inhibitor, Nonsteroidal Anti-inflammatory Drug Start: 08-07-2019 End: 02-14-2020 take 1 tablet by mouth once daily Aspirin (Adult Aspirin Regimen) 81 mg tablet,delayed release (DR/EC) Discontinued 81 mg PO DAILY August 07, 2019 12:00am February 14, 2020 3:27pm HX. PREECLAMPSIA Start: 11-02-2018 End: 02-21-2019 take 1 tablet by mouth once daily Aspirin 81 mg tablet,delayed release (DR/EC) Discontinued 81 mg PO DAILY November 02, 2018 12:00am February 21, 2019 3:21pm azithromycin 250 mg oral tablet (20 sources) Macrolide Antimicrobial Start: 07-10-2024 End: 07-28-2024 Azithromycin 250 mg tablet Discontinued mg July 10, 2024 1:00am July 28, 2024 11:26am Start: 07-08-2024 End: 07-13-2024 take 2 tablets by mouth once daily, then take 1 tablet by mouth once daily azithromycin (ZITHROMAX) 250 mg tablet Indications: Lower resp. tract infection Take 2 tablets by mouth once daily for 1 day, THEN 1 tablet once daily for 4 days. 6 tablet 07/08/2024 07/13/2024 Active Start: 06-29-2023 End: 10-26-2023 Azithromycin 250 mg tablet Discontinued 250 mg PO daily 12 0 June 29, 2023 1:00am October 26, 2023 4:13pm 2 tablets today, then 1 tablet daily on days 2 through 11 Start: 03-10-2022 End: 04-14-2022 Azithromycin (Zithromax) 250 mg tablet Discontinued 0 PO .COMPLEX March 10, 2022 12:00am April 14, 2022 3:18pm For 250 mg dose pack: take 500 mg today (day 1), then 250 mg for 4 days (days 2-5) PO baclofen 10 mg oral tablet (19 sources) gamma-Aminobutyric Acid-ergic Agonist Start: 07-02-2020 End: 02-20-2021 take 1 tablet by mouth at bedtime Baclofen 10 mg tablet Discontinued 10 mg PO AT BEDTIME 30 0 July 02, 2020 1:00am February 20, 2021 1:56pm benzonatate 100 mg oral capsule (20 sources) Non-narcotic Antitussive Start: 07-08-2024 End: 07-28-2024 take 2 capsules by mouth three times daily as needed for cough Benzonatate 100 mg capsule Discontinued 200 mg PO 3 TIMES DAILY NEEDED as needed for cough July 10, 2024 1:00am July 28, 2024 11:26am Start: 07-05-2017 End: 08-02-2017 take 2 capsules by mouth three times daily as needed for cough Benzonatate 100 MG capsule Discontinued 200 mg PO 3 TIMES DAILY NEEDED as needed for Cough 20 0 July 05, 2017 1:00am August 02, 2017 9:50am Start: 07-05-2017 End: 08-02-2017 take 200 mg by mouth three times daily as needed Benzonatate Discontinued 200 MG PO 3 TIMES DAILY NEEDED 20 July 05, 2017 12:00am August 02, 2017 8:50am benzoyl peroxide 50 mg/ml medicated liquid soap (9 sources) Start: 06-02-2017 End: 03-30-2024 Benzoyl Peroxide 5 % external wash Indications: Acne vulgaris , Cystic acne Wash face and chest once daily as tolerated. Can bleach towels 1 Bottle 5 06/02/2017 03/30/2024 Discontinued Comment on above: Wash face and chest once daily as tolerated. Can bleach towels biotin 1 mg oral capsule (20 sources) Start: 10-26-2023 End: 07-10-2024 take 1 capsule by mouth once daily Biotin 1 mg capsule Discontinued 1 mg PO DAILY October 26, 2023 12:00am July 10, 2024 2:26pm Biotin 67672 MCG tablet dispersible Take by mouth. Active Blood-Glucose Meter (14 sources) Start: 10-11-2018 End: 01-12-2019 Blood-Glucose Meter Disconti nued 0 .ROUTE .MEDSUPPLY 1 October 10, 2018 11:00pm January 12, 2019 12:21pm As directed Start: 10-11-2018 End: 01-12-2019 Blood-Glucose Meter Disconti nued 0 .ROUTE .MEDSUPPLY 1 October 11, 2018 12:00am January 12, 2019 1:21pm As directed Blood-Glucose Meter kit (5 sources) Start: 10-11-2018 End: 01-12-2019 Blood-Glucose Meter kit Disc ontinued 0 .ROUTE .MEDSUPPLY 1 0 October 11, 2018 12:00am January 12, 2019 1:21pm As directed Start: 10-11-2018 End: 01-12-2019 Blood-Glucose Meter kit Disc ontinued 0 .ROUTE .MEDSUPPLY 1 October 11, 2018 12:00am January 12, 2019 1:21pm As directed busPIRone hydrochloride 7.5 mg oral tablet (19 sources) Start: 12-12-2018 End: 02-21-2019 take 1 tablet by mouth twice daily Buspirone 7.5 mg tablet Discontinued 7.5 mg PO TWICE A DAY 60 1 December 12, 2018 12:00am February 21, 2019 3:21pm cariprazine 1.5 mg oral capsule (5 sources) Atypical Antipsychotic Start: 12-02-2023 End: 01-13-2024 take 1 capsule by mouth once daily Cariprazine (Vraylar) 1.5 mg capsule Discontinued 1.5 mg PO DAILY 30 0 December 02, 2023 12:00am January 13, 2024 11:04am codeine phosphate 2 mg/ml / guaiFENesin 20 mg/ml oral solution (19 sources) Opioid Agonist Start: 05-20-2017 End: 06-16-2017 take 1 mL by mouth every six hours as needed Codeine-Guaifenesi n (Cheratussin Ac) 10-100 mg/5 mL liquid Discontinued 10 mL PO EVERY 6 HOURS as needed for flu symptoms 120 0 May 20, 2017 1:00am June 16, 2017 11:24am Start: 05-20-2017 End: 06-16-2017 take 1 mL by mouth every six hours before mealtime Codeine-Guaifenesin (Cheratussin Ac) 10-100 mg/5 mL liquid Discontinued 10 ML PO EVERY 6 HOURS 120 May 20, 2017 12:00am June 16, 2017 10:24am Cranberry (20 sources) Non-Standardized Food Allergenic Extract, Non-Standardized Plant Allergenic Extract Start: 10-26-2023 End: 01-13-2024 take 1 capsule by mouth once daily at mealtime Cranberry 500 mg capsule Discontinued 500 mg PO DAILY October 26, 2023 12:00am January 13, 2024 11:04am administer with meals CRANBERRY PO Shakeel e by mouth daily. Active CRANBERRY PO Shakeel e by mouth daily. 0 Active cyclobenzaprine hydrochloride 7.5 mg oral tablet (20 sources) Muscle Relaxant Start: 01-13-2024 End: 09-17-2024 take 1 tablet by mouth at bedtime as needed for muscle spasms Cyclobenzaprine 7.5 mg tablet Discontinued 7.5 mg PO AT BEDTIME as needed for muscle spasm 20 0 January 13, 2024 12:00am September 17, 2024 10:29am Start: 01-21-2020 End: 02-28-2020 take 1 tablet by mouth every six hours as needed for muscle spasms Cyclobenzaprine 10 mg tablet Discontinued 10 mg PO EVERY 6 HOURS as needed for muscle spasm 30 January 21, 2020 2:14pm February 28, 2020 9:44am Start: 10-05-2019 End: 01-21-2020 take 1 tablet by mouth three times daily as needed for muscle spasms Cyclobenzaprine 10 mg tablet Discontinued 10 mg PO THREE TIMES A DAY as needed for muscle spasm 30 October 05, 2019 12:00am January 21, 2020 2:15pm Start: 02-21-2019 End: 03-22-2019 take 5-10 mg by mouth three times daily as needed for muscle spasms Cyclobenzaprine 10 mg tablet Discontinued 5 - 10 mg PO THREE TIMES A DAY as needed for muscle spasm 30 0 February 21, 2019 12:00am March 22, 2019 10:05am diazePAM 2 mg oral tablet (19 sources) Benzodiazepine Start: 11-20-2018 End: 02-07-2019 take 1 tablet by mouth twice daily Diazepam (Valium) 2 mg tablet Discontinued 2 mg PO TWICE A DAY 30 0 November 20, 2018 12:00am February 07, 2019 1:43pm docusate sodium 100 mg oral capsule (19 sources) Start: 02-14-2020 End: 02-28-2020 take 1 capsule by mouth twice daily Docusate Sodium 100 MG capsule Discontinued 100 mg PO TWICE A DAY 60 3 February 14, 2020 12:00am February 28, 2020 9:44am escitalopram 20 mg oral tablet (20 sources) Serotonin Reuptake Inhibitor Start: 06-03-2021 End: 03-10-2022 take 1 tablet by mouth once daily Escitalopram Oxalate 20 mg tablet Discontinued 20 mg PO DAILY 60 June 03, 2021 12:13pm March 10, 2022 8:19am Start: 05-05-2021 End: 06-03-2021 Escitalopram Oxalate 10 mg t ablet Discontinued 10 mg PO DAILY 30 May 05, 2021 1:00am June 03, 2021 12:15pm Take 1/2 tablet for 2 weeks then increase to 1 tablet Levonorgestrel-Ethinyl Estrad (19 sources) Progestin, Estrogen, Progestin-containing Intrauterine Device Start: 07-11-2020 End: 10-27-2020 Levonorgestrel-Ethinyl Estrad 90-20 mcg (28) tablet Discontinued 1 {tbl} PO DAILY 84 4 July 11, 2020 1:00am October 27, 2020 10:41am Start: 07-11-2020 End: 10-27-2020 Levonorgestrel-Ethinyl Estra d 90-20 mcg (28) tablet Discontinued 1 {tbl} PO DAILY 84 July 11, 2020 1:00am October 27, 2020 10:41am Start: 07-11-2020 End: 10-27-2020 take 1 tablet by mouth once daily Levonorgestrel-Ethinyl Estrad Discontinued 1 TABLET PO DAILY 84 July 11, 2020 12:00am October 27, 2020 9:41am Start: 07-11-2020 End: 10-27-2020 take 1 tablet by mouth once daily Levonorgestrel-Ethinyl Estrad Discontinued 1 TABLET PO DAILY 84 July 11, 2020 1:00am October 27, 2020 10:41am ethinyl estradiol 0.03 mg / norethindrone acetate 1.5 mg oral tablet (20 sources) Estrogen Start: 06-23-2020 End: 07-11-2020 Norethindrone Ac-Eth Estradiol 1.5-30 mg-mcg tablet Discontinued 1 {tbl} PO DAILY 63 3 June 23, 2020 1:00am July 11, 2020 1:56pm Start: 06-23-2020 End: 07-11-2020 take 1 tablet by mouth once daily Norethindrone Ac-Eth Estradiol Discontinued 1 TABLET PO DAILY 63 June 23, 2020 12:00am July 11, 2020 12:56pm Start: 03-26-2020 End: 06-23-2020 Norethindrone Ac-Eth Estradi ol (Loestrin 1/20 (21)) 1-20 mg-mcg tablet Discontinued 1 {tbl} PO DAILY 63 4 March 26, 2020 1:00am June 23, 2020 2:29pm Start: 03-26-2020 End: 06-23-2020 Norethindrone Ac-Eth Estradi ol (Loestrin 1/20 (21)) 1-20 mg-mcg tablet Discontinued 1 {tbl} PO DAILY 63 March 26, 2020 1:00am June 23, 2020 2:29pm Start: 03-26-2020 End: 06-23-2020 take 0.05 ug by mouth once daily Norethindrone Ac-Eth Estradiol (Loestrin 1/20 (21)) 1-20 mg-mcg tablet Discontinued 1 TABLET PO DAILY 63 March 26, 2020 12:00am June 23, 2020 1:29pm Start: 03-26-2020 End: 06-23-2020 take 0.05 ug by mouth once daily Norethindrone Ac-Eth Estradiol (Loestrin 1/20 (21)) 1-20 mg-mcg tablet Discontinued 1 TABLET PO DAILY 63 March 26, 2020 1:00am June 23, 2020 2:29pm famotidine 40 mg oral tablet (5 sources) Histamine-2 Receptor Antagonist Start: 03-09-2024 End: 05-25-2024 take 1 tablet by mouth at bedtime Famotidine 40 mg tablet Discontinued 40 mg PO AT BEDTIME 30 2 March 09, 2024 12:00am May 25, 2024 10:40am ferrous sulfate 325 mg oral tablet (19 sources) Start: 11-30-2018 End: 02-21-2019 take 1 tablet by mouth twice daily Ferrous Sulfate (Feosol) 325 mg (65 mg iron) tablet Discontinued 325 mg PO TWICE A DAY 60 November 30, 2018 12:00am February 21, 2019 3:21pm fluconazole 200 mg oral tablet (20 sources) Azole Antifungal Start: 05-10-2023 End: 06-01-2023 take 1 tablet by mouth once daily Fluconazole 200 mg tablet Discontinued 200 mg PO DAILY 1 May 10, 2023 1:00am June 01, 2023 3:54pm AFTER completing antibiotic as prescribed (if symptomatic as discussed in office) Start: 01-11-2022 End: 01-12-2022 take 1 tablet by mouth once daily fluconazole (DIFLUCAN) 150 mg tablet Take 1 tablet by mouth once daily for 1 day. 1 tablet 0 01/11/2022 01/12/2022 Active Start: 04-21-2020 End: 06-03-2020 take 1 tablet by mouth once Fluconazole (Diflucan) 150 mg tablet Discontinued 150 mg PO ONCE 1 0 April 21, 2020 1:00am June 03, 2020 11:17am as a single dose Start: 05-11-2019 End: 06-28-2019 take 1 tablet by mouth once Fluconazole 150 mg tablet Discontinued 150 mg PO ONCE 2 0 May 11, 2019 1:00am June 28, 2019 2:16pm Start: 07-07-2017 End: 08-02-2017 Fluconazole 150 mg tablet Discontinued 150 mg PO .COMPLEX 2 0 July 07, 2017 1:00am August 02, 2017 9:50am 150 mg PO take one po now and repeat in 3 days Comment on above: Take 1 tablet by shirin th once daily for 1 day. fluticasone propionate 0.05 mg/actuat metered dose nasal spray (10 sources) Corticosteroid Start: 01-24-20 End: 06-01-19 take 50 ug nasal route once daily as needed Fluticasone Propionate (Allergy Relief (Fluticasone)) 50 mcg/actuation spray,suspension Discontinued 1 NMA INTRANASAL DAILY as needed for nasal congestion 16 January 23, 2023 12:00am June 01, 2023 3:54pm administer into each nostril Start: 01-23-2023 End: 06-01-2023 take 1 spray(s) nasal route once daily Fluticasone Propionate (Allergy Relief (Fluticasone)) 50 mcg/actuation spray,suspension Discontinued 1 SPRAY INTRANASAL DAILY January 22, 2023 11:00pm June 01, 2023 2:54pm administer into each nostril gadobutrol (GADAVIST) injection 2 mL (1 source) Start: 04-30-2020 End: 04-30-2020 gadobutrol (GADAVIST) injection 2 mL glycopyrrolate 1 mg oral tablet (9 sources) Start: 06-02-2017 End: 03-30-2024 take 1 tablet by mouth three times daily glycopyrrolate (ROBINUL) 1 mg tablet Indications: Hyperhidrosis Take 1 tablet by mouth three times daily. 90 tablet 2 06/02/2017 03/30/2024 Discontinued (Course of therapy completed) Comment on above: Take 1 tablet by shirin three times daily. 12 hr guaiFENesin 600 mg extended release oral tablet (10 sources) Start: 01-23-2023 End: 06-01-2023 take 1 tablet by mouth every twelve hours as needed for congestion Guaifenesin 600 mg tablet extended release 12hr Discontinued 600 mg PO Q12H as needed for congestion January 23, 2023 12:00am June 01, 2023 3:54pm Start: 01-23-2023 End: 06-01-2023 take 600 mg by mouth every twelve hours Guaifenesin Discontinued 600 MG PO Q12H January 22, 2023 11:00pm June 01, 2023 2:54pm hydrocortisone 10 mg/ml / neomycin 3.5 mg/ml / polymyxin b [id number] unt/ml otic suspension (19 sources) Aminoglycoside Antibacterial, Polymyxin-class Antibacterial, Corticosteroid Start: 03-30-2018 End: 04-09-2018 Vjkdnfix-Kjfudmqgl-Uu 3.5-10,000-1 mg/mL-unit/mL-% drops,suspension Discontinued 4 NMA OTIC THREE TIMES A DAY 10 10 0 March 30, 2018 1:00am April 08, 2018 1:00am April 09, 2018 1:14am right ear Start: 03-30-2018 End: 04-09-2018 Infxiquu-Gfasqsqzd-Bl Discon tinued 4 DRP OTIC THREE TIMES A DAY 10 March 30, 2018 12:00am April 09, 2018 12:14am right ear ibuprofen 400 mg oral tablet (20 sources) Nonsteroidal Anti-inflammatory Drug Start: 02-14-2020 End: 02-28-2020 take 2 tablets by mouth every eight hours Ibuprofen 400 MG tablet Discontinued 800 mg PO Q8H 30 February 14, 2020 12:00am February 28, 2020 9:44am Start: 02-14-2020 End: 02-28-2020 take 800 mg by mouth every eight hours Ibuprofen Discontinued 800 MG PO Q8H February 13, 2020 11:00pm February 28, 2020 8:44am Start: 09-14-2016 End: 03-30-2024 Ibuprofen 800 MG tablet Disc ontinued 800 mg PO NEEDED as needed for Pain May 05, 2018 1:00am May 24, 2018 3:55pm Comment on above: Take 1 tablet by shirin th every 8 hours as needed. insulin isophane, human 100 unt/ml injectable suspension (20 sources) Start: 10-27-2019 End: 02-14-2020 Insulin Nph Isoph U-100 Human 100 UNIT/ML suspension Discontinued 14 U subcut .bedtime October 27, 2019 5:12pm February 14, 2020 3:27pm GESTATIONAL DIABETES Start: 08-23-2019 End: 10-27-2019 Insulin Nph Isoph U-100 Tracey n (Humulin N Nph U-100 Insulin) 100 unit/mL suspension Discontinued 4 U SC .bedtime 10 August 23, 2019 12:00am October 27, 2019 5:12pm Missed Unspecified diabetes mellitus in , first trimester iopamidol (ISOVUE-300) 61 % injection 25 mL (1 source) Start: 04-30-2020 End: 04-30-2020 iopamidol (ISOVUE-300) 61 % injection 25 mL isoniazid 100 mg oral tablet (5 sources) Antimycobacterial Start: 01-13-2024 End: 07-10-2024 take 1 tablet by mouth once daily Isoniazid 100 mg tablet Discontinued 300 mg PO DAILY January 13, 2024 12:00am July 10, 2024 2:27pm Lactobacillus Combination No.4 (Probiotic) 3 billion cell capsule (5 sources) Start: 11-11-2023 End: 01-13-2024 take 3 capsules by mouth once daily Lactobacillus Combination No.4 (Probiotic) 3 billion cell capsule Discontinued 3000 NMA PO DAILY November 11, 2023 12:00am January 13, 2024 11:04am administer with a meal lidocaine 0.04 mg/mg medicated patch (20 sources) Antiarrhythmic, Amide Local Anesthetic Start: 10-17-2018 End: 02-21-2019 apply 1 dose transdermal route every twelve hours as needed for pain Lidocaine 1 EACH adhesive patch,medicated Discontinued 1 NMA TP EVERY 12 HOURS NEEDED as needed for Pain 5 0 October 17, 2018 5:08pm February 21, 2019 3:22pm Start: 01-13-2018 End: 02-14-2018 Lidocaine Hcl (Lidocaine Vis cous) 2 % solution Discontinued 15 mL MUCOUS MEM 2 to 4 times per day as needed for mouth pain 100 1 January 13, 2018 12:00am February 14, 2018 9:04am medroxyPROGESTERone acetate 5 mg oral tablet (19 sources) Progestin Start: 04-03-2021 End: 05-05-2021 take 1 tablet by mouth once daily Medroxyprogesterone 5 mg tablet Discontinued 5 mg PO DAILY 14 14 6 April 03, 2021 1:00am May 05, 2021 3:15pm take one pill a day for 14 days to elicit menses. meloxicam 7.5 mg oral tablet (19 sources) Nonsteroidal Anti-inflammatory Drug Start: 02-21-2019 End: 02-21-2019 take 1 tablet by mouth once daily as needed for pain Meloxicam 7.5 mg tablet Discontinued 7.5 mg PO DAILY as needed for pain 30 1 February 21, 2019 12:00am February 21, 2019 3:21pm methylPREDNISolone 4 mg oral tablet (20 sources) Corticosteroid Start: 03-10-2022 End: 04-14-2022 Methylprednisolone 4 mg tablets,dose pack Discontinued 0 PO per package directions March 10, 2022 12:00am April 14, 2022 3:18pm PO PER PKG DIR Start: 03-10-2022 End: 04-14-2022 Methylprednisolone Discontin ued 0 PO per package directions March 10, 2022 12:00am April 14, 2022 3:18pm PO PER PKG DIR Start: 03-10-2022 End: 04-14-2022 Methylprednisolone Discontin ued 0 PO per package directions March 09, 2022 11:00pm April 14, 2022 2:18pm PO PER PKG DIR Start: 07-02-2020 End: 10-27-2020 take 1 tablet by mouth once Methylprednisolone (Medrol (Mikel)) 4 mg tablets,dose pack Discontinued 0 PO per package directions July 02, 2020 1:00am October 27, 2020 10:41am PO PER PKG DIR Start: 02-21-2019 End: 03-22-2019 take 1 tablet by mouth once Methylprednisolone (Medrol (Mikel)) 4 mg tablets,dose pack Discontinued 0 PO per package directions February 21, 2019 12:00am March 22, 2019 10:06am PO PER PKG DIR metroNIDAZOLE (20 sources) Nitroimidazole Antimicrobial Start: 06-18-2024 End: 06-23-2024 Metronidazole 0.75 % (37.5mg/5 gram) gel Discontinued 1 NMA VAGINAL daily 70 5 0 June 18, 2024 1:00am June 22, 2024 1:00am June 23, 2024 1:16am at bedtime Start: 06-18-2024 End: 06-23-2024 Metronidazole 0.75 % (37.5mg /5 gram) gel Discontinued 1 NMA VAGINAL daily 70 5 June 18, 2024 1:00am June 22, 2024 1:00am June 23, 2024 1:16am at bedtime Start: 04-22-2023 End: 06-01-2023 take 1 tablet by mouth twice daily Metronidazole 500 mg tablet Discontinued 500 mg PO TWICE A DAY 14 0 April 22, 2023 1:00am June 01, 2023 3:54pm Vulvodynia Vulvodynia, unspecified Start: 05-17-2019 End: 05-27-2019 Metronidazole 0.75 % gel Dis continued 1 NMA VAGINAL DAILY 70 10 0 May 17, 2019 1:00am May 26, 2019 1:00am May 27, 2019 1:08am Multivit 91-Olvg-Zaians 6-Dh a (Prenate Dha) 28 mg iron-1 mg -300 mg capsule (10 sources) Start: 02-02-2019 End: 03-22-2019 Multivit 52-Jzzz-Quefze 6-Dh a (Prenate Dha) 28 mg iron-1 mg -300 mg capsule Discontinued 1 NMA PO .daily 90 February 02, 2019 3:36pm March 22, 2019 10:06am Start: 02-02-2019 End: 03-22-2019 Multivit 62-Qzhd-Xyruuz 6-Dh a (Prenate Dha) 28 mg iron-1 mg - 300 mg capsule Discontinued 1 NMA PO .daily February 02, 2019 3:36pm March 22, 2019 10:06am Start: 10-18-2018 End: 02-02-2019 Multivit 73-Innc-Hgtflm 6-Dh a (Prenate Dha) 28 mg iron-1 mg - 300 mg capsule Discontinued 1 NMA PO .daily October 18, 2018 12:00am February 02, 2019 3:37pm Start: 10-18-2018 End: 02-02-2019 Multivit 63-Ytdz-Lvtnnr 6-Dh a (Prenate Dha) 28 mg iron-1 mg - 300 mg capsule Discontinued 1 NMA PO .daily October 18, 2018 12:00am February 02, 2019 3:37pm multivitamin capsule (14 sources) Start: 09-05-2017 End: 12-06-2017 take 1 capsule by mouth once daily in the morning multivitamin capsule Discontinued 1 CAP PO EVERY MORNING September 04, 2017 11:00pm December 06, 2017 7:07am Start: 09-05-2017 End: 12-06-2017 take 1 capsule by mouth once daily in the morning multivitamin capsule Discontinued 1 CAP PO EVERY MORNING September 05, 2017 12:00am December 06, 2017 8:07am Multivitamin capsule (5 sources) Start: 09-05-2017 End: 12-06-2017 Multivitamin capsule Discontinued 1 NMA PO EVERY MORNING September 05, 2017 12:00am December 06, 2017 8:07am Multivitamin tablet (5 sources) Start: 12-20-2022 End: 07-10-2024 Multivitamin tablet Discontinued 1 {tbl} PO DAILY December 20, 2022 12:00am July 10, 2024 2:27pm Muqiitgrgxrzg-Tc-Nosq-Mi nerals (MULTIPLE VITAMIN, WOMENS) tab (9 sources) Start: 09-02-2017 End: 03-30-2024 take 1 tablet by mouth once daily Ssikvcumsqbta-Ik-Eslr-M inerals (MULTIPLE VITAMIN, WOMENS) tab Take 1 tablet by mouth once daily. 09/02/2017 03/30/2024 Discontinued (Course of therapy completed) Start: 09-02-2017 take 1 tablet by shirin th once daily Eaticistrdwgp-Tn-Ppjc-Minerals (MULTIPLE VITAMIN, WOMENS) tab Take 1 tablet by mouth once daily. 0 09/02/2017 Active Comment on above: Take 1 tablet by shirin th once daily. naproxen 500 mg oral tablet (13 sources) Nonsteroidal Anti-inflammatory Drug Start: 3 End: 3 take 1 tablet by mouth twice daily as needed for pain Naproxen 500 mg tablet Discontinued 500 mg PO TWICE A DAY as needed for pain September 07, 2022 12:00am September 21, 2022 9:51am Nirmatrelvir-Riton avir (17 sources) Start: 2 End: 2 Nirmatrelvir-Ritonavi r (Paxlovid (Eua)) 300 mg (150 mg x 2)-100 mg tablet Discontinued 0 PO .COMPLEX 30 November 11, 2021 12:00am December 09, 2021 1:11pm take TWO 150 mg tablets of nirmatrelvir with ONE 100 mg tablet of ritonavir twice daily for 5 days PO Start: 11-11-2021 End: 12-09-2021 Nirmatrelvir-Ritonavir (Paxl ovid (Eua)) 300 mg (150 mg x 2)-100 mg tablet Discontinued 0 PO .COMPLEX November 11, 2021 12:00am December 09, 2021 1:11pm take TWO 150 mg tablets of nirmatrelvir with ONE 100 mg tablet of ritonavir twice daily for 5 days PO Start: 11-11-2021 End: 12-09-2021 Nirmatrelvir-Ritonavir (Paxl ovid (Eua)) 300 mg (150 mg x 2)-100 mg tablet Discontinued 0 PO .COMPLEX November 10, 2021 11:00pm December 09, 2021 12:11pm take TWO 150 mg tablets of nirmatrelvir with ONE 100 mg tablet of ritonavir twice daily for 5 days PO nitrofurantoin, macrocrystals 25 mg / nitrofurantoin, monohydrate 75 mg oral capsule (20 sources) Nitrofuran Antibacterial Start: 12-19-2019 End: 02-28-2020 take 1 capsule by mouth once at mealtime Nitrofurantoin Monohyd/M-Cryst 100 MG capsule Discontinued 100 mg PO ONCE February 12, 2020 5:21am February 28, 2020 9:44am uti must administer with a meal/food Start: 12-13-2019 End: 01-17-2020 take 1 capsule by mouth twice daily at mealtime Nitrofurantoin Monohyd/M-Cryst (Macrobid) 100 mg capsule Discontinued 100 mg PO TWICE A DAY 14 0 December 13, 2019 12:00am January 17, 2020 10:25am must administer with a meal/food Start: 10-27-2019 End: 11-16-2019 take 1 capsule by mouth twice daily Nitrofurantoin Monohyd/M-Cryst 100 MG capsule Discontinued 100 mg PO TWICE A DAY 13 0 October 27, 2019 12:00am November 16, 2019 4:03pm uti Start: 04-11-2019 End: 05-11-2019 take 1 capsule by mouth twice daily at mealtime Nitrofurantoin Monohyd/M-Cryst (Macrobid) 100 mg capsule Discontinued 100 mg PO TWICE A DAY 20 0 April 11, 2019 1:00am May 11, 2019 11:45am must administer with a meal/food nystatin 100 unt/mg topical powder (13 sources) Polyene Antifungal Start: 09-09-2022 End: 09-21-2022 Nystatin 100,000 unit/gram powder Discontinued 1 NMA TOPICAL DAILY 15 0 September 09, 2022 12:00am September 21, 2022 9:51am Candidiasis of skin Candidiasis of skin and nail Start: 09-09-2022 End: 09-21-2022 Nystatin Discontinued 1 APPL IC TOPICAL DAILY September 08, 2022 11:00pm September 21, 2022 8:51am orlistat 120 mg oral capsule (17 sources) Intestinal Lipase Inhibitor Start: 12-09-2021 End: 04-14-2022 take 1 capsule by mouth three times daily 1 hour(s) after mealtime Orlistat 120 mg capsule Discontinued 120 mg PO THREE TIMES A DAY 90 12 December 09, 2021 12:00am April 14, 2022 3:19pm administer during or up to 1 hour after meal oxyCODONE hydrochloride 5 mg oral tablet (19 sources) Opioid Agonist Start: 02-14-2020 End: 02-21-2020 take 1 tablet by mouth every six hours as needed for pain Oxycodone 5 MG tablet Discontinued 5 mg PO EVERY 6 HOURS NEEDED as needed for Pain Score 6-10/10 15 7 0 February 14, 2020 February 20, 2020 12:00am February 21, 2020 12:02am delivery delivered Encounter for delivery without indication Ozempic, 1 MG/DOSE, 4 MG/3ML solution pen-injector (9 sources) Start: 01-11-2024 End: 07-13-2024 inject 1 mg by subcutaneous injection every week Ozempic, 1 MG/DOSE, 4 MG/3ML solution pen-injector Indications: Insulin resistance Inject 1 mg under the skin 1 (one) time per week 3 mL 01/11/2024 07/13/2024 Discontinued (Therapy completed) Start: 01-11-2024 inject 1 mg by subcu taneous injection every week Ozempic, 1 MG/DOSE, 4 MG/3ML solution pen-injector Indications: Insulin resistance Inject 1 mg under the skin 1 (one) time per week 3 mL 01/11/2024 Active pantoprazole 40 mg delayed release oral tablet (5 sources) Proton Pump Inhibitor Start: 03-09-2024 End: 05-25-2024 take 1 tablet by mouth twice daily Pantoprazole 40 mg tablet,delayed release (DR/EC) Discontinued 40 mg PO TWICE A DAY 60 2 March 09, 2024 12:00am May 25, 2024 10:39am phentermine hydrochloride 37.5 mg oral tablet (20 sources) Sympathomimetic Amine Anorectic Start: 06-15-2024 End: 07-15-2024 take 1 tablet by mouth once daily before breakfast phentermine (Adipex-P) 37.5 MG tablet Indications: BMI 30.0-30.9,adult Take 1 tablet (37.5 mg) by mouth every morning (before breakfast). 30 tablet 06/15/2024 07/13/2024 Discontinued (Side effects) Start: 04-23-2022 End: 12-20-2022 take 1 tablet by mouth once daily 30 minutes after breakfast Phentermine (Adipex-P) 37.5 mg tablet Discontinued 37.5 mg PO DAILY 30 0 August 23, 2022 2:55pm December 20, 2022 10:28am must administer 30 minutes before or 1-2 hours after breakfast BMI 33 Start: 10-12-2021 End: 12-05-2021 take 1 tablet by mouth once daily 30 minutes after breakfast Phentermine (Adipex-P) 37.5 mg tablet Discontinued 37.5 mg PO DAILY 30 30 0 November 05, 2021 3:42pm December 04, 2021 12:00am December 05, 2021 12:05am BMI 36.5 must administer 30 minutes before or 1-2 hours after breakfast Start: 09-10-2021 End: 10-10-2021 take 1 tablet by mouth once daily 30 minutes after breakfast Phentermine (Adipex-P) 37.5 mg tablet Discontinued 37.5 mg PO DAILY 30 30 0 September 10, 2021 12:00am October 09, 2021 12:00am October 10, 2021 12:05am must administer 30 minutes before or 1-2 hours after breakfast End: 03-30-2024 phentermine HCl (ADIPEX-P OR AL) Take by mouth. 03/30/2024 Discontinued (Course of therapy completed) phentermine HCl (ADIPEX-P ORAL) Take by mouth. 0 Active Comment on above: Take by mouth. Pnv 225-Xweja-Ginvr-3-Fish Oil (14 sources) Start: 10-27-2019 End: 02-28-2020 Pnv 607-Ffadu-Bjlxi-3-Fish Oil Discontinued 1 EACH PO DAILY October 26, 2019 11:00pm February 28, 2020 8:44am Start: 10-27-2019 End: 02-28-2020 Pnv 037-Diwej-Vbspc-3-Fish O il Discontinued 1 EACH PO DAILY October 27, 2019 12:00am February 28, 2020 9:44am Pnv 950-Xmnku-Ikszx-3-Fish O il 1 EACH tablet,chewable (5 sources) Start: 10-27-2019 End: 02-28-2020 Pnv 062-Bpwex-Bzrdz-3-Fish O il 1 EACH tablet,chewable Discontinued 1 NMA PO DAILY October 27, 2019 12:00am February 28, 2020 9:44am VITAMIN Start: 10-27-2019 End: 02-28-2020 Pnv 508-Gmxtl-Ebmct-3-Fish O il 1 EACH tablet,chewable Discontinued 1 NMA PO DAILY October 27, 2019 12:00am February 28, 2020 9:44am predniSONE 10 mg oral tablet (20 sources) Start: 03-30-2024 End: 06-06-2024 predniSONE (DELTASONE) 10 mg tablet Take 4 tabs daily for 3 days, then 2 tabs daily for 3 days, then 1 tab daily for 3 days with food. 21 tablet 03/30/2024 06/06/2024 Discontinued Start: 03-22-2019 End: 05-11-2019 Prednisone 10 mg tablet Disc ontinued 0 PO daily 30 0 March 22, 2019 12:00am May 11, 2019 11:45am 4 tabs for 3 days, then 3 tabs for 3 days, then 2 tabs for 3 days, then 1 tab for 3 days PO QDAY; administer with food or milk [id number] fum 28 mg iron-folate no.6 1 mg-dha 300 mg capsule (20 sources) Start: 02-02-2019 End: 03-22-2019 take 1 capsule by mouth once daily [id number] fum 28 mg iron-folate no.6 1 mg-dha 300 mg capsule Discontinued 1 CAP PO .daily February 02, 2019 2:36pm March 22, 2019 9:06am Start: 02-02-2019 End: 03-22-2019 take 1 capsule by mouth once daily [id number] fum 28 mg iron-folate no.6 1 mg-dha 300 mg capsule Discontinued 1 CAP PO .daily February 02, 2019 3:36pm March 22, 2019 10:06am Start: 10-18-2018 End: 02-02-2019 take 1 capsule by mouth once daily [id number] fum 28 mg iron-folate no.6 1 mg-dha 300 mg capsule Discontinued 1 CAP PO .daily October 17, 2018 11:00pm February 02, 2019 2:37pm Start: 10-18-2018 End: 02-02-2019 take 1 capsule by mouth once daily [id number] fum 28 mg iron-folate no.6 1 mg-dha 300 mg capsule Discontinued 1 CAP PO .daily October 18, 2018 12:00am February 02, 2019 3:37pm 0.25 mg, 0.5 mg dose 1.5 ml semaglutide 1.34 mg/ml pen injector (20 sources) Start: 11-30-2023 End: 07-13-2024 inject 0.25 mg by subcutaneous injection every week semaglutide (Ozempic, 0.25 or 0.5 MG/DOSE,) 2 MG/1.5ML solution pen-injector Indications: Insulin resistance Inject 0.25 mg under the skin 1 (one) time per week. 1.5 mL 11/30/2023 07/13/2024 Discontinued (Therapy completed) Start: 09-21-2023 End: 11-16-2023 inject 0.25 mg by subcutaneous injection every week semaglutide (Ozempic, 0.25 or 0.5 MG/DOSE,) 2 MG/1.5ML solution pen-injector Indications: Insulin resistance Inject 0.25 mg under the skin 1 (one) time per week. 1.5 mL 09/21/2023 Active Start: 11-12-2022 End: 07-13-2024 inject 0.5 mg by subcutaneous injection every week semaglutide (Ozempic, 0.25 or 0.5 MG/DOSE,) 2 MG/1.5ML solution pen-injector Indications: Insulin resistance Inject 0.5 mg under the skin 1 (one) time per week. 1 each 12/02/2023 07/13/2024 Discontinued (Therapy completed) Semaglutide (11 sources) Start: 12-20-2022 End: 07-10-2024 Semaglutide (Ozempic) 0.25 m g or 0.5 mg (2 mg/3 mL) pen injector Discontinued 0.25 mg SC Q7D December 20, 2022 12:00am July 10, 2024 2:27pm weekly Start: 12-20-2022 End: 07-10-2024 Semaglutide (Ozempic) 0.25 m g or 0.5 mg (2 mg/3 mL) pen injector Discontinued 0.25 mg SC Q7D December 20, 2022 12:00am July 10, 2024 2:27pm Start: 12-20-2022 Semaglutide (O zempic) 0.25 mg or 0.5 mg (2 mg/3 mL) pen injector Active MG SC December 19, 2022 11:00pm Start: 12-20-2022 Semaglutide (O zempic) 0.25 mg or 0.5 mg (2 mg/3 mL) pen injector Active MG SC December 20, 2022 12:00am sertraline 50 mg oral tablet (19 sources) Serotonin Reuptake Inhibitor Start: 06-28-2019 End: 08-15-2019 take 1 tablet by mouth once daily Sertraline 50 mg tablet Discontinued 50 mg PO daily 30 June 28, 2019 1:00am August 15, 2019 10:07am spironolactone 50 mg oral tablet (8 sources) Aldosterone Antagonist Start: 07-22-2023 End: 03-30-2024 spironolactone (ALDACTONE) 50 mg tablet Take one pill twice daily 60 tablet 2 07/22/2023 03/30/2024 Discontinued (Course of therapy completed) Start: 06-14-2023 End: 03-30-2024 take 1 tablet by mouth once daily spironolactone (ALDACTONE) 50 mg tablet Take 1 tablet by mouth once daily. 30 tablet 1 06/14/2023 03/30/2024 Discontinued (Course of therapy completed) Comment on above: Take 1 tablet by shirin th once daily. Take one pill twice daily sucralfate 1000 mg oral tablet (5 sources) Aluminum Complex Start: 4 End: 4 take 1 tablet by mouth before mealtime Sucralfate 1 gram tablet Discontinued 1 g PO before meals 90 2 March 09, 2024 12:00am April 02, 2024 11:06am On Hold: just got prescribed Sucralfate 100 mg/mL suspension (5 sources) Start: 4 End: 5 take 1 mL by mouth before mealtime Sucralfate 100 mg/mL suspension Discontinued 10 mL PO before meals 1000 3 April 02, 2024 1:00am May 25, 2024 10:39am Start: 04-02-2024 End: 05-25-2024 take 1 mL by mouth before mealtime Sucralfate 100 mg/mL suspension Discontinued 10 mL PO before meals 1000 April 02, 2024 1:00am May 25, 2024 10:39am sulfamethoxazole 800 mg / trimethoprim 160 mg oral tablet (19 sources) Dihydrofolate Reductase Inhibitor Antibacterial, Sulfonamide Antimicrobial Start: 04-23-2020 End: 04-28-2020 Sulfamethoxazole-Trimethopri m (Bactrim Ds) 800-160 mg tablet Discontinued 1 {tbl} PO TWICE A DAY 10 5 0 April 23, 2020 1:00am April 27, 2020 1:00am April 28, 2020 1:03am terconazole 4 mg/ml vaginal cream (19 sources) Azole Antifungal Start: 11-06-2018 End: 11-13-2018 Terconazole 0.4 % cream Discontinued 1 NMA VAGINAL AT BEDTIME 45 7 0 November 06, 2018 12:00am November 12, 2018 12:00am November 13, 2018 12:08am Start: 11-06-2018 End: 11-13-2018 Terconazole Discontinued 1 A PPFUL VAGINAL AT BEDTIME 45 7 November 05, 2018 11:00pm November 12, 2018 11:08pm tranexamic acid 650 mg oral tablet (20 sources) Antifibrinolytic Agent Start: 06-01-2023 End: 10-26-2023 take 2 tablets by mouth three times daily Tranexamic Acid 650 mg tablet Discontinued 1300 mg PO THREE TIMES A DAY 30 5 June 01, 2023 1:00am October 26, 2023 4:13pm Start: 06-01-2023 take 1300 mg by mout h three times daily Tranexamic Acid Active 1300 MG PO THREE TIMES A DAY 30 5 June 01, 2023 12:00am Start: 05-17-2019 End: 06-28-2019 Tranexamic Acid (Lysteda) 65 0 mg tablet Discontinued 1300 mg PO THREE TIMES A DAY 30 5 4 May 17, 2019 1:00am June 28, 2019 2:16pm begin at onset of menstrual bleeding 24 hr venlafaxine 75 mg extended release oral capsule (20 sources) Serotonin and Norepinephrine Reuptake Inhibitor Start: 10-19-2017 End: 02-28-2018 take 1 capsule by mouth once daily Venlafaxine 75 mg capsule,extended release 24hr Discontinued 75 mg PO daily 90 3 January 10, 2018 10:26am February 28, 2018 9:42am vilazodone hydrochloride 20 mg oral tablet (9 sources) Start: 11-22-2016 End: 03-30-2024 take 1 tablet by mouth once daily at breakfast vilazodone (VIIBRYD) 20 mg Indications: Anxiety and depression Take 1 tablet by mouth daily with breakfast. As directed 30 tablet 2 11/22/2016 03/30/2024 Discontinued (Course of therapy completed) Comment on above: Take 1 tablet by shirin th daily with breakfast. As directed vitamin b6 100 mg oral tablet (5 sources) Start: 01-13-2024 End: 07-10-2024 take 1 tablet by mouth once daily Pyridoxine (Vitamin B6) 100 mg tablet Discontinued 100 mg PO DAILY January 13, 2024 12:00am July 10, 2024 2:27pm vortioxetine 5 mg oral tablet (19 sources) Start: 06-03-2020 End: 10-27-2020 take 1 tablet by mouth once daily Vortioxetine (Trintellix) 5 mg tablet Discontinued 5 mg PO DAILY 30 June 03, 2020 1:00am October 27, 2020 10:42am Wegovy 0.25 MG/0.5ML solution auto-injector (2 sources) Start: 09-06-2024 End: 11-07-2024 Wegovy 0.25 MG/0.5ML solution auto-injector Indications: Insulin resistance , BMI 30.0-30.9,adult , Class 1 obesity due to excess calories with serious comorbidity and body mass index (BMI) of 30.0 to 30.9 in adult Inject 0.5 mL (0.25 mg) under the skin every 7 days. 2 mL 09/06/2024 11/07/2024 Discontinued (Cost of medication) Problems Active Problems Problem Classification Problem Date Documented Da te Episodic/Chronic Administrative/social admission (20 sources) Patient encounter status; Translations: [Encounter for pre-employment examination] Onset: 5 10-27-2019 Episodic Anxiety disorders (20 sources) Generalized anxiety disorder; Translations: [Generalized anxiety disorder] Onset: 5 Chronic Appendicitis and other appendiceal conditions (19 sources) Acute appendicitis; Translations: [Unspecified acute appendicitis] 12-01-2018 Episodic Asthma (20 sources) Asthma; Translations: [Unspecified asthma, uncomplicated] Onset: 6 06-23-2005 Chronic Comment on above: stable Attention-deficit, conduct, and disruptive behavior disorders (16 sources) Attention deficit hyperactivity disorder; Translations: [Attention-deficit hyperactivity disorder, unspecified type] Onset: 0 09-30-2009 Chronic Conditions associated with dizziness or vertigo (1 source) Dizziness and giddiness; Translations: [Dizziness and giddiness] Onset: 5 Episodic Contraceptive and procreative management (3 sources) Encounter for contraceptive management, unspecified; Translations: [Unspecified contraceptive management] 07-30-2022 Episodic Deficiency and other anemia (19 sources) Anemia; Translations: [Anemia, unspecified] 06-28-2019 Episodic Comment on above: repeat CBC 11/30/18, iron ordered Diabetes or abnormal glucose tolerance complicating ; childbirth; or the puerperium (20 sources) Abnormal glucose level; Translations: [Abnormal glucose complicating ] 08-23-2019 Episodic Comment on above: Needs 3hr GTT Initial BS WNL. 11/02 check FBS, and 2 hr pp. 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 Considering 3hr GTT Esophageal disorders (20 sources) Gastroesophageal reflux disease; Translations: [Gastro-esophageal reflux disease without esophagitis] Onset: 5 06-28-2019 Chronic Gastrointestinal hemorrhage (19 sources) Rectal hemorrhage; Translations: [Hemorrhage of anus and rectum] 02-20-2021 Episodic Headache; including migraine (3 sources) Migraine without aura, not refractory ; Translations: [Chronic migraine without aura, not intractable, without status migrainosus] Onset: 4 08-09-2023 Chronic Hemorrhage during ; abruptio placenta; placenta previa (20 sources) Placenta previa with hemorrhage; Translations: [Complete placenta previa with hemorrhage, second trimester] 11-21-2018 Episodic Comment on above: recheck at [facility] Pelvic rest Immunizations and screening for infectious disease (20 sources) Suspected disease caused by 2019-nCoV; Translations: [Suspected COVID-19 virus infection] Onset: 5 Episodic Inflammatory diseases of female pelvic organs (20 sources) Vaginitis; Translations: [Acute vaginitis] Episodic Menstrual disorders (20 sources) Irregular periods; Translations: [Irregular menstruation, unspecified] Onset: 4 05-25-2021 Chronic Mood disorders (20 sources) Depressive disorder; Translations: [Depression] Onset: 2 12-27-2021 Chronic Mycoses (13 sources) Candidiasis of skin; Translations: [Candidiasis of skin and nail] 09-09-2022 Episodic Nonmalignant breast conditions (20 sources) Pain of breast; Translations: [Mastodynia] Onset: 5 Resolved: 1 Episodic Nutritional deficiencies (5 sources) Vitamin D deficiency; Translations: [Vitamin D deficiency, unspecified] Onset: 5 09-17-2024 Chronic Other acquired deformities (19 sources) Scoliosis deformity of spine; Translations: [Scoliosis, unspecified] 02-12-2020 Chronic Other circulatory disease (9 sources) Pulmonary congestion ; Translations: [Other specified symptoms and signs involving the circulatory and respiratory systems] 03-15-2022 Episodic Other circulatory disease (3 sources) Other specified symptoms and signs involving the circulatory and respiratory systems; Translations: [Other symptoms involving respiratory system and chest] Episodic Other complications of ; puerperium affecting management of mother (19 sources) Abnormality of heart; Translations: [Maternal care for other (suspected) abnormality and damage, not applicable or unspecified] 11-29-2019 Episodic Comment on above: echo planned, treatment center consult Other complications of (19 sources) History of pre-eclampsia; Translations: [Supervision of with other poor reproductive or obstetric history, unspecified trimester] 12-01-2018 Episodic Comment on above: baseline labs. baby asa at 12 weeks Other connective tissue disease (19 sources) Foot pain; Translations: [Pain in right foot] 12-01-2018 Episodic Other connective tissue disease (1 source) Diastasis recti; Translations: [Separation of muscle (nontraumatic), other site] 12-02-2022 Episodic Other connective tissue disease (5 sources) Cramp in lower limb; Translations: [Cramp and spasm] 01-13-2024 Episodic Other disorders of stomach and duodenum (6 sources) Delayed gastric emptying; Translations: [Functional dyspepsia] 03-31-2024 Episodic Other endocrine disorders (19 sources) Polycystic ovary syndrome; Translations: [Polycystic ovarian syndrome] 10-27-2019 Chronic Other female genital disorders (19 sources) Abnormal uterine bleeding; Translations: [Abnormal uterine and vaginal bleeding, unspecified] 10-27-2019 Chronic Comment on above: lysteda Other female genital disorders (10 sources) Vulvodynia; Translations: [Vulvodynia, unspecified] 04-22-2023 Chronic Other female genital disorders (5 sources) Vulvodynia, unspecified; Translations: [Vulvodynia, unspecified] 04-22-2023 Chronic Other female genital disorders (19 sources) Endocervical polyp; Translations: [Polyp of cervix uteri] 12-01-2018 Episodic Comment on above: <4mm friable;noted o n NOB exam Other female genital disorders (1 source) Vaginal discharge; Translations: [Other specified noninflammatory disorders of vagina] 12-03-2024 Episodic Other female genital disorders (1 source) Vaginal odor; Translations: [Other specified noninflammatory disorders of vagina] 12-03-2024 Episodic Other female genital disorders (1 source) Other specified noninflammatory disorders of vagina; Translations: [Other specified noninflammatory disorders of vagina] Onset: 5 Episodic Other gastrointestinal disorders (20 sources) Irritable bowel syndrome; Translations: [Irritable bowel syndrome without diarrhea] Onset: 6 Resolved: 6 06-28-2019 Chronic Other gastrointestinal disorders (1 source) Irritable bowel syndrome without diarrhea; Translations: [Irritable bowel syndrome, unspecified] Onset: 5 Chronic Other gastrointestinal disorders (16 sources) History of irritable bowel syndrome; Translations: [Personal history of other diseases of the digestive system] 01-12-2023 Episodic Other gastrointestinal disorders (7 sources) Constipation; Translations: [Constipation, unspecified] 06-06-2024 Episodic Other gastrointestinal disorders (1 source) Constipation, unspecified; Translations: [Constipation, unspecified constipation type] Onset: 5 Episodic Other gastrointestinal disorders (5 sources) Diarrhea; Translations: [Diarrhea, unspecified] 07-18-2024 Episodic Other lower respiratory disease (12 sources) Cough; Translations: [Cough] Episodic Other lower respiratory disease (2 sources) Cough; Translations: [Acute cough] 03-30-2024 Episodic Other lower respiratory disease (1 source) Lower respiratory tract infection; Translations: [Unspecified acute lower respiratory infection] 07-08-2024 Episodic Other nervous system disorders (1 source) Other chronic pain; Translations: [Other chronic pain] Onset: 5 Chronic Other non-traumatic joint disorders (19 sources) Hip pain; Translations: [Pain in right hip] 12-01-2018 Episodic Other non-traumatic joint disorders (20 sources) Pain in left knee; Translations: [Left knee pain] 01-12-2023 Episodic Other non-traumatic joint disorders (1 source) Pain in right knee; Translations: [Pain in joint, lower leg] 12-20-2022 Episodic Other non-traumatic joint disorders (10 sources) Effusion of joint of left knee; Translations: [Effusion, left knee] 01-14-2023 Episodic Other non-traumatic joint disorders (2 sources) Effusion, left knee; Translations: [Effusion of joint, lower leg] 01-14-2023 Episodic Other nutritional; endocrine; and metabolic disorders (15 sources) Obese class II; Translations: [Obesity, unspecified] 11-05-2021 Chronic Comment on above: adipex month #3, con doms for control Other nutritional; endocrine; and metabolic disorders (20 sources) Body mass index 30+ - obesity; Translations: [Body mass index (BMI) 35.0-35.9, adult] Onset: 5 11-22-2016 Chronic Other nutritional; endocrine; and metabolic disorders (20 sources) Obesity; Translations: [Obesity, unspecified] 12-01-2018 Chronic Other nutritional; endocrine; and metabolic disorders (19 sources) Hypocalcemia; Translations: [Hypocalcemia] 12-01-2018 Chronic Other nutritional; endocrine; and metabolic disorders (16 sources) Obesity, unspecified; Translations: [Obesity, unspecified] Onset: 5 Chronic Other nutritional; endocrine; and metabolic disorders (4 sources) Body mass index (BMI) 35.0-35.9, adult; Translations: [Body Mass Index 35.0-35.9, adult] Chronic Other nutritional; endocrine; and metabolic disorders (20 sources) Insulin resistance; Translations: [Metabolic syndrome] 06-23-2022 Chronic Other nutritional; endocrine; and metabolic disorders (3 sources) Metabolic syndrome; Translations: [Dysmetabolic syndrome X] Onset: 5 06-23-2022 Chronic Other nutritional; endocrine; and metabolic disorders (20 sources) Morbid obesity; Translations: [Morbid (severe) obesity due to excess calories] Onset: 2 03-08-2022 Chronic Other nutritional; endocrine; and metabolic disorders (1 source) Localized adiposity; Translations: [Localized adiposity] 12-02-2022 Chronic Other nutritional; endocrine; and metabolic disorders (8 sources) Obesity caused by energy imbalance; Translations: [Class 1 obesity due to excess calories with serious comorbidity and body mass index (BMI) of 30.0 to 30.9 in adult] 06-15-2024 Chronic Other nutritional; endocrine; and metabolic disorders (2 sources) Body mass index (BMI) 31.0-31.9, adult; Translations: [Body mass index (BMI) 31.0-31.9, adult] Onset: 5 Chronic Other nutritional; endocrine; and metabolic disorders (2 sources) Other obesity due to excess calories; Translations: [Other obesity due to excess calories] Onset: 5 Chronic Other nutritional; endocrine; and metabolic disorders (2 sources) Body mass index (BMI) 30.0-30.9, adult; Translations: [Body mass index (BMI) 30.0-30.9, adult] Onset: 5 Chronic Other nutritional; endocrine; and metabolic disorders (12 sources) Overweight in adulthood with body mass index of 25 or more but less than 30; Translations: [Body mass index (BMI) 28.0-28.9, adult] 02-25-2023 Episodic Other nutritional; endocrine; and metabolic disorders (12 sources) Body mass index 25-29 - overweight; Translations: [Overweight] 02-25-2023 Episodic Other and delivery including normal (20 sources) Supervision of other normal ; Translations: [] Onset: 2 Resolved: 3 12-01-2018 Episodic Comment on above: Grav 06/23 CHRIS 04/29/19 PC: Shama Pike: Constantino(his first) Normal NT will await blood work- first lab draw normal. Second draw between 11/15-11/29 Other skin disorders (19 sources) Non-scarring alopecia; Translations: [Nonscarring hair loss, unspecified] 12-01-2018 Episodic Other skin disorders (1 source) Acne vulgaris; Translations: [Acne vulgaris] 07-22-2023 Episodic Other skin disorders (1 source) Post-inflammatory hyperpigmentation; Translations: [Postinflammatory hyperpigmentation] 07-22-2023 Episodic Other skin disorders (1 source) Generalized hyperhidrosis; Translations: [Generalized hyperhidrosis] 07-22-2023 Episodic Other skin disorders (5 sources) Loss of hair; Translations: [Nonscarring hair loss, unspecified] 11-11-2023 Episodic Other upper respiratory disease (1 source) Chronic rhinitis; Translations: [Unspecified sinusitis (chronic)] Chronic Other upper respiratory disease (1 source) Allergic rhinitis; Translations: [Other allergic rhinitis] 08-09-2023 Chronic Other upper respiratory disease (2 sources) Other allergic rhinitis; Translations: [Other allergic rhinitis] Onset: 4 Chronic Other upper respiratory infections (4 sources) Chronic maxillary sinusitis; Translations: [Chronic maxillary sinusitis] Onset: 4 08-09-2023 Chronic Other upper respiratory infections (20 sources) Upper respiratory infection; Translations: [Acute upper respiratory infection, unspecified] Episodic Otitis media and related conditions (11 sources) Acute right otitis media; Translations: [Otitis media, unspecified, right ear] Episodic Pneumonia (except that caused by tuberculosis or sexually transmitted disease) (17 sources) Pneumonia; Translations: [Pneumonia, unspecified organism] 03-10-2022 Episodic Residual codes; unclassified (19 sources) Hypersomnia; Translations: [Hypersomnia, unspecified] 02-20-2021 Chronic Residual codes; unclassified (20 sources) Obstructive sleep apnea syndrome; Translations: [Obstructive sleep apnea (adult) (pediatric)] Onset: 2 11-12-2022 Chronic Residual codes; unclassified (1 source) Hypersomnia, unspecified; Translations: [Hypersomnia, unspecified] Onset: 4 Chronic Residual codes; unclassified (19 sources) Positive measurement finding; Translations: [Positive test for human papillomavirus (HPV)] 05-25-2021 Episodic Residual codes; unclassified (17 sources) Abnormal cytology findings; Translations: [ASCUS with positive high risk HPV] 06-07-2022 Episodic Comment on above: needs colp, 07/13 col p biopsy is negative. Repeat PAP in 1 yr. Screening and history of mental health and substance abuse codes (14 sources) Tobacco use and exposure - finding; Translations: [Personal history of nicotine dependence] Onset: 0 Resolved: 2 05-18-2021 Episodic Spondylosis; intervertebral disc disorders; other back problems (20 sources) Chronic back pain ; Translations: [Dorsalgia, unspecified] Onset: 7 Resolved: 2 06-28-2019 Episodic Spontaneous (20 sources) with abortive outcome; Translations: [Complete or unspecified spontaneous without complication] 11-21-2018 Episodic Comment on above: baby aspirin daily, weekly progesterone until 36 weeks. Sprains and strains (20 sources) Strain of foot; Translations: [Strain of unspecified muscle and tendon at ankle and foot level, left foot, initial encounter] Onset: 1 Resolved: 1 12-30-2020 Episodic Unclassified (1 source) No current problems or disability 04-19-2017 Unclassified (1 source) Acute cough; Translations: [Acute cough] Onset: 4 Unclassified (12 sources) M54.5 - Low back pain,G89.29 - Other chronic pain Unclassified (6 sources) M54.16 - Radiculopathy, lumbar region Unclassified (1 source) Displacement of lumbar intervertebral disc 11-16-2024 Unclassified (1 source) Latent tuberculosis; 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] Onset: 5 Unclassified (1 source) Low back pain, unspecified; Translations: [Low back pain, unspecified] Onset: 5 Unclassified (1 source) Cough, unspecified; Translations: [Cough, unspecified] Onset: 4 Unclassified (1 source) Insulin resistance, unspecified; Translations: [Insulin resistance, unspecified] Onset: 5 Unclassified (1 source) Obesity, class 1; Translations: [Obesity, class 1] Onset: 5 Viral infection (20 sources) Viral disease; Translations: [Viral infection, unspecified] 11-15-2021 Episodic Past or Other Problems Problem Classification Problem Date Documented Da te Episodic/Chronic Abdominal pain (20 sources) Pain in pelvis; Translations: [Pelvic and perineal pain] Onset: 01-07-2005 Resolved: 01-07-2016 Episodic Comment on above: pos leuks, ordered k eflex and urine culture. if positive culture recommend daily antibiotic for remainder of due to previous UTI. Acute and chronic tonsillitis (9 sources) Tonsillitis; Translations: [Acute tonsillitis, unspecified] Onset: 03-31-2009 Resolved: 04-27-2011 12-01-2023 Episodic Coma; stupor; and brain damage (20 sources) Daytime somnolence; Translations: [Somnolence] Onset: 05-28-2021 03-08-2022 Episodic Influenza (10 sources) Influenza due to Influenza A virus; Translations: [Influenza due to other identified influenza virus with other respiratory manifestations] Onset: 08-01-2024 07-28-2024 Episodic Malaise and fatigue (20 sources) Malaise and fatigue; Translations: [Other malaise] Onset: 03-22-2024 12-01-2018 Episodic Nausea and vomiting (12 sources) Nausea and vomiting; Translations: [Nausea with vomiting, unspecified] Onset: 02-22-2024 01-12-2023 Episodic Other complications of (9 sources) Anemia of ; Translations: [Anemia complicating , unspecified trimester] Onset: 01-25-2012 Resolved: 03-07-2013 03-07-2013 Chronic Other complications of (9 sources) Tobacco use in mother complicating ; Translations: [Smoking (tobacco) complicating , unspecified trimester] Onset: 09-17-2011 Resolved: 12-18-2016 05-18-2021 Episodic Other complications of (9 sources) Back pain complicating ; Translations: [Back pain complicating ] Onset: 09-27-2011 Resolved: 03-07-2013 03-07-2013 Episodic Other connective tissue disease (1 source) Cramp and spasm; Translations: [Cramp and spasm] Onset: 01-13-2024 Episodic Other disorders of stomach and duodenum (1 source) Functional dyspepsia; Translations: [Functional dyspepsia] Onset: 06-04-2024 Episodic Other screening for suspected conditions (not mental disorders or infectious disease) (6 sources) Abnormal results of function studies of other organs and systems; Translations: [Abnormal results of function studies of other organs and systems] Onset: 08-28-2024 04-02-2024 Episodic Other upper respiratory disease (2 sources) Epistaxis; Translations: [Epistaxis] Onset: 08-01-2024 Episodic Substance-related disorders (9 sources) Tobacco user; Translations: [Nicotine dependence, unspecified, uncomplicated] Onset: 03-31-2009 Resolved: 03-03-2010 03-03-2010 Chronic Unclassified (1 source) Insulin resistance, unspecified; Translations: [Insulin resistance, unspecified] Onset: 12-19-2024 Unclassified (1 source) Obesity, class 1; Translations: [Obesity, class 1] Onset: 12-19-2024 Results Test Name Value Interpretation Reference Range Facility [id number] 12-24-2024 [id number] Pt would like to knazul w if she could have her A1C rechecked. I let her know you would be out until 12-31. Please advise. Thank you! [facility] 36on 12-24-2024 36 Please let the pt kn ow A1C is ordered Thank you [facility] Office Visiton 12-19-2024 Follow-up visit [id number] Helen Aparicio 1990 F Date Provider Department Center 12/19/2024 ANAI BRADLEY [facility] None Family History Problem [...] Grandfather Paternal Grandmother Maternal Grandfather Level of Service:41011 MO OFFICE/OUTPATIENT ESTABLISHED MOD MDM 30 MIN Reason for Visit and Comments: Weight Loss [884218] - NSURG #14 [facility] Progress Noteon 12-19-2024 Progress Note HPI, PHYSICAL EXAMINATION & PLAN HPI: Patient here today for follow up for non-surgical weight loss management Weight trend since last visit: lost 2 lbs over 1 m stable weight regain after stopping ozempic This patient's excess weight is causing the following co-morbid conditions at this time:Other IR Physical Examination: Height 5' 2 (1.575 m), weight 169 lb 9.6 oz (76.9 kg). Blood pressure 113/75, pulse 80, height 5' 2 (1.575 m), weight 169 lb 9.6 oz (76.9 kg). General: This patient is calm and [...] Current Diet This patient?s current diet is: 50-80% meal plan Her diet contains adequate amounts of protein, adequate amounts of healthy fats, adequate amounts of green, leafy vegetables, and adequate amounts of fruits. Her comfort foods include: none Current Activity Does not exercise Current Eating Behaviors This patients demonstrates the [...] the meal structure, composition and portion control Review meal structure, meal composition and portion control in details in order will focus on the meal plan Unable to exercise due to LBP Will see pain management and discuss appropriate exercise routine Discuss to adhere to the rule of eating while on GLP 1 Unable to tolerate metformin, adipex, naltrexone On trulicity New dose 4.5 r2 Other IR Continue current management, continue weight loss program Stable [x] Protein goal of 1g protein per [...] anti-obesity medication. I spend a total of 30 minutes on the same day of the [...] was performed.Clinical documentation is updated and completed. [facility] Progress Note [facility] MEDICAL WEIGHT LOSS MANAGEMENT PROGRAM ROOMING NOTE: FOLLOW UP VISIT Patient: Dari Aparicio Date of : 1990 Service Date: 12/19/2024 Patient History/Assessment Summary: The patient is a pleasant 34 y.o. year old female, who stands Height: 5' 2 (157.5 cm) tall with a weight of Weight: 169 lb 9.6 oz (76.9 kg) pounds, resulting in a BMI of Body mass index is 31.02 kg/m?. kg/m2. She is here for follow-up for medical treatment of Obesity Patient has the following question(s): none Pre Program Weight Metrics (Epic) (Surgical Wt Loss Management- baseline) This Visit Non-Surgical Subsequent Eval Date: 12/19/24 Height: 5' 2 (157.5 cm) Weight: 169 lb 9.6 oz (76.9 kg) BMI: 31.02 Weight Change: -1.6 lbs Total Weight Change: -27.2 lbs % EBWL: 38% Subsequent Body Fat %: 37.22 Body Fat % Change: -0.35 Follow Up Weight Metrics Last Three Weights Including Today's Weight: Wt Readings from Last 3 Encounters: 12/19/24 169 lb 9.6 oz (76.9 kg) 11/07/24 171 lb 3.2 oz (77.7 kg) 07/13/24 166 lb (75.3 kg) Diabetes Do you currently have diabetes? [...] tolerate or have chosen not to treat? N/A Comorbids summary (flow sheet comorbids) Falls Risk [...] following traits which increases risk of fall: unsteady at times-back issues Patient is not on home O2 Completed by: Skyler Nichols MA [place] [facility] XR FLUORO GUIDANCE FOR THERA PY INJECTIONon 12-13-2024 XR FLUORO GUIDANCE FOR THERAPY INJECTION ORIGINAL Images acquired, not reported on this accession number. Normal [facility] Genital Culture Comprehensiv [place] 12-07-2024 VAC Reason for Exam: vaginal odor Normal vaginal tasha isolated. No yeast, Gardnerella, Neisseria or beta-hemolytic Streptococcus isolated. Normal [facility] Comment on above: Performed By: #### M 100.1999, M100.3200, L7000.1800 ####[facility] [id number] [place], [address] Chlamydia/GC MARSHA aptimaon CHLAMY,NUC ACID Negative Normal Negative [facility] Comment on above: Performed By: #### M 100.2000, M100.3200, L7000.1800 ####[facility] [id number] [place], [address] GC BY NUC ACID Negative Normal Negative [facility] Comment on above: Result Comment: Perf ormed at: =G - [facility] [place] [address], [place] [id number] Cigarette Package Examiner: Jana Roberson MD, Phone: [phone] Performed By: #### M 100.2000, M100.3200, L7000.1800 ####[facility] [id number] [place], [address] Chlamydia trachomatis rRNA d etection by probe and target amplification methodOrdered By: Afsaneh Snow on 12-03-2024 C. trachomatis rRNA MARSHA+probe Ql (Unsp spec) Negative Negative [facility] Genital cultureOrdered By: Nyla Snow on 12-03-2024 Source specific culture Neisseria or beta-hemolytic Streptococcus isolated. [facility] Gram Stainon 12-03-2024 GS Reason for Exam: vaginal odor Gram Stain 4+ Gram positive rods No Gram negative diplococci No White Blood Cells Score = 0 Interpretation: 0-3 Normal, 4-6 Intermediate, 7-10 Positive BV Normal [facility] Comment on above: Performed By: #### M 100.2000, M100.3200, L7000.1800 ####[facility] [id number] [place], [address] Gram stainOrdered By: Afsaneh Snow on 12-03-2024 Microscopic observation Gram stain Nom (Unsp spec) [facility] Neisseria gonorrhoeae nuclei c acid detection by amplified probe techniqueOrdered By: Afsaneh Snow on 12-03-2024 N. gonorrhoeae DNA MARSHA+probe Ql (Unsp spec) Negative Negative [facility] Comment on above: Performed at: =[facility] [id number] [place] [address], [place] [id number] Director: Jana Roberson MD, Phone: [phone] No Panel InformationOrdered By: Afsaneh Snow on 12-03-2024 POC Trichomonas (Rapid) Negative [facility] POC Bacterial Vaginitis (Rapid) Negative [facility] Land Use Planner Office Visit Reporton 12-03-2024 Land Use Planner Office Visit Report [facility] [address], [address] [place] [address] OFFICE VISIT Date of Service: 12/03/24 MR#: [id number] Acct: [id number] Name: DARI APARICIO Rep #: [id number] : 1990 Provider: PERLITA doty Age/Sex: 34/F Location: [facility] Status: Signed Intake Vital Signs 10/08/24 09:07 12/03/24 14:51 12/03/24 15:01 Height 5 ft 1 in 5 ft 1 in 5 ft 1 in Weight: 171 lb 6 oz BMI 32.3 BP 110/70 Intake Visit Reasons: Possible BV Chief Complaint: poss. BV 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 Required: No Is patient in pain?: No Allergies amoxicillin (From Augmentin) Adverse Reaction (Mild, Verified 12/03/24 14:50) Vomiting clavulanic acid (From Augmentin) Adverse Reaction (Mild, Verified 12/03/24 14:50) Vomiting naproxen Adverse Reaction (Verified 12/03/24 14:50) Other varenicline tartrate (From Chantix) Adverse Reaction (Verified 12/03/24 14:50) Other Medications ???Medication ???Instructions ???Recorded ???Confirmed ???Type ondansetron 4 mg disintegrating 4 mg PO Q6H PRN nausea and 5 12/03/24 Rx tablet vomiting #10 tabs desvenlafaxine succinate 50 mg 50 mg PO DAILY #90 tabs 08/22/24 0 12/03/24 Rx tablet,extended release 24 hr methocarbamol 500 mg tablet 500 mg PO TID PRN pain/spasms #60 09/03/24 12/03/24 Rx tabs dulaglutide 0.75 mg/0.5 mL 0.75 mg subcut QWEEK 09/17/2411/20 History subcutaneous pen injector (Trulicity) omeprazole 40 mg capsule,delayed 40 mg PO BID #60 caps 09/17/24 Rx release Is last menstrual period known: Yes Last Menstrual Period: 11/26/24 Post menopausal: No Patient : No : No PFSH Medical History Leg cramping Delayed gastric emptying History of gestational diabetes 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 Chronic back pain Anxiety Arthritis High cholesterol Former smoker Maxillary sinusitis Effusion, left knee PTSD (post-traumatic stress disorder) Low iron Back pain Migraine headache History of IBS Sleep apnea Asthma Shortness of breath on exertion Leg cramps Hypertension Adopted ASCUS with positive high risk HPV Pelvic pain Hypersomnia Rectal bleeding Anxiety and depression Spontaneous HPV test positive Acute appendicitis GERD (gastroesophageal reflux disease) Irregular periods Obesity Scoliosis IBS (irritable bowel syndrome) Preeclampsia Surgical History Status post tubal ligation Status post bilateral salpingectomy History of History of hip surgery H/O adenoidectomy delivery delivered S/P laparoscopic appendectomy ( 05/06/18) S/P right knee arthroscopy History of tonsillectomy H/O knee surgery Hx of breast reduction, elective Family History Mother Depression Aunt Breast cancer Grandmother Diabetes Uncle Hyperlipemia Menieres disease Depression Grandfather Heart disease Myocardial infarction CVA (cerebral vascular accident) Sister Crohn's disease half sister Down syndrome Aunt Multiple sclerosis Crohn's disease Father Rheumatoid arthritis Brain aneurysm CVA (cerebral vascular accident) Myocardial infarction Brother Bipolar 1 disorder Mentally disabled Other Hypertension Social History household members: family and children housing: house current occupational status: unemployed Smoking Status: Former smoker quit date: 05/23/11 pack-years: 1 how long ago did patient quit smokin alcohol intake: current alcohol intake frequency: holidays/special occasions only substance use type: does not use caffeine: No what type of physical activity do you participate in: none seatbelt use: always do you feel safe at home: Yes additional social history: Single HPI Possible BV Details: DARI APARICIO is a 34 year old who presents for vaginal odor and discharge. Not sexually active >6 months but did have new partner. She has had tubal removal. Female Reproductive History Last Menstrual Period: 11/26/24 History 3 Elective abortions Hx Para 2 Spontaneous abortions Hx # Term Pregnancies 2 Ectopic pregnancies Hx # Pregnancies 1 Multiple births # of living children 2 Past Pregnancies Del. Date Name GA/Weeks Outcome Route Bth Weight Infant Gen Labor Lgth Anesthesia Del Locatn Provider FOB 04/19/12 Kika 39 live - full term Female [facility] Alma Delia 11/20/18 Eliezer spontaneous Female 02/12/20 Mo 39 live - full term 7lbs 15oz Male spinal WC (more content not included)... [facility] [id number] 11-26-2024 [id number] The medication is se nt to the pharmacy Thank you [facility] [phone] Pt unable to use medication. The pens were frozen when she attempted to administer. Asking for refill. Pended. Thank you! [facility] Office Visiton 11-07-2024 Follow-up visit [id number] Helen Aparicio 1990 F Date Provider Department Center 11/07/2024 ANAI BRADLEY [facility] None Family History Problem [...] Grandfather Paternal Grandmother Maternal Grandfather Level of Service:03941 MO OFFICE/OUTPATIENT ESTABLISHED MOD MDM 30 MIN Reason for Visit and Comments: Weight Loss [151323] - NSURG #13 [facility] Progress Noteon 11-07-2024 Progress Note [facility] MEDICAL WEIGHT LOSS MANAGEMENT PROGRAM ROOMING NOTE: FOLLOW UP VISIT Patient: Dari Aparicio Date of : 1990 Service Date: 11/07/2024 Patient History/Assessment Summary: The patient is a pleasant 34 y.o. year old female, who stands Height: 5' 2 (157.5 cm) tall with a weight of Weight: 171 lb 3.2 oz (77.7 kg) pounds, resulting in a BMI of Body mass index is 31.31 kg/m?. kg/m2. She is here for follow-up for medical treatment of Obesity Patient has the following question(s): none Pre Program Weight Metrics (Epic) (Surgical Wt Loss Management- baseline) This Visit Non-Surgical Subsequent Eval Date: 11/07/24 Height: 5' 2 (157.5 cm) Weight: 171 lb 3.2 oz (77.7 kg) BMI: 31.31 Weight Change: 5.2 lbs Total Weight Change: -25.6 lbs % EBWL: 36% Subsequent Body Fat %: 37.57 Body Fat % Change: 1.14 Follow Up Weight Metrics Last Three Weights Including Today's Weight: Wt Readings from Last 3 Encounters: 11/07/24 171 lb 3.2 oz (77.7 kg) 07/13/24 166 lb (75.3 kg) 06/15/24 169 lb 6.4 oz (76.8 kg) Diabetes Do you currently have diabetes? [...] tolerate or have chosen not to treat? N/A Comorbids summary (flow sheet comorbids) Falls Risk [...] is not on home O2 Completed by: Skyler Nichols MA [facility] Progress Note HPI, PHYSICAL EXAMINATION & PLAN HPI: Patient here today for follow up for non-surgical weight loss management Weight trend since last visit: gain 5 lbs over 1 m stable weight regain after stopping ozempic This patient's excess weight is causing the following co-morbid conditions at this time:Other IR Physical Examination: Blood pressure 109/75, pulse 82, height 5' 2 (1.575 m), weight 171 lb 3.2 oz (77.7 kg). General: This patient is calm and [...] Current Diet This patient?s current diet is: 50-80% meal plan Her diet contains adequate amounts of protein, adequate amounts of healthy fats, adequate amounts of green, leafy vegetables, and adequate amounts of fruits. Her comfort foods include: none Current Activity Does not exercise Current Eating Behaviors This patients demonstrates the [...] the meal structure, composition and portion control Review meal structure, meal composition and portion control in details in order will focus on the meal plan Unable to exercise due to LBP Will see pain management and discuss appropriate exercise routine Unable to tolerate metformin, adipex, naltrexone On trulicity New dose 3.0 R1 Other IR Continue current management, continue weight loss program Stable Working with [facility] on her current symptoms [x] Protein goal of 1g protein per [...] anti-obesity medication. I spend a total of 30 minutes on the same day of the [...] was performed.Clinical documentation is updated and completed. [facility] [id number] 10-17-2024 [id number] Losing inches is the great sign that medication is working . Persistence is the mcclellan for weight loss journey. Trulicity is refilled Thank you [facility] [phone] Dr Pierre, Please advise [facility] 36on 10-17-2024 36 Trulicity is sent to the pharmacy Please let the pt know That changing body composition ( losing inches) is a great sign of the medication work. Thank you [facility] 36 Refill request for Trulicity pended. Next OV 6-18. Thank you! [facility] Orthopedic Visit Reporton Orthopedic Visit Report [facility] [address] [place] [address] OFFICE VISIT Date of Service: 10/09/24 MR#: [id number] Acct: [id number] Name: DARI APARICIO Rep #: [id number] : 1990 Provider: CAROLYN Garza Age/Sex: 34/F [place] [facility] Status: Signed Intake Vital Signs 09/25/24 08:32 10/08/24 09:07 Height 5 ft 1 in 5 ft 1 in Weight: 170 lb 6 oz BMI 32.1 BP 98/64 Intake Visit Reasons: LUMBAR SPINE Allergies amoxicillin (From Augmentin) Adverse Reaction (Mild, Verified 10/09/24 08:32) Vomiting clavulanic acid (From Augmentin) Adverse Reaction (Mild, Verified 10/09/24 08:32) Vomiting naproxen Adverse Reaction (Verified 10/09/24 08:32) Other varenicline tartrate (From Chantix) Adverse Reaction (Verified 10/09/24 08:32) Other Medications ???Medication ???Instructions ???Recorded ???Confirmed ???Type ondansetron 4 mg disintegrating 4 mg PO Q6H PRN nausea and 5 10/09/24 Rx tablet vomiting #10 tabs desvenlafaxine succinate 50 mg 50 mg PO DAILY #90 tabs 08/22/24 0 10/09/24 Rx tablet,extended release 24 hr methocarbamol 500 mg tablet 500 mg PO TID PRN pain/spasms #60 09/03/24 10/09/24 Rx tabs dulaglutide 0.75 mg/0.5 mL 0.75 mg subcut QWEEK 09/17/2409/21 History subcutaneous pen injector (Trulicity) omeprazole 40 mg capsule,delayed 40 mg PO BID #60 caps 09/17/24 Rx release PFSH Medical History Leg cramping Delayed gastric emptying History of gestational diabetes 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 Chronic back pain Anxiety Arthritis High cholesterol Former smoker Maxillary sinusitis Effusion, left knee PTSD (post-traumatic stress disorder) Low iron Back pain Migraine headache History of IBS Sleep apnea Asthma Shortness of breath on exertion Leg cramps Hypertension Adopted ASCUS with positive high risk HPV Pelvic pain Hypersomnia Rectal bleeding Anxiety and depression Spontaneous HPV test positive Acute appendicitis GERD (gastroesophageal reflux disease) Irregular periods Obesity Scoliosis IBS (irritable bowel syndrome) Preeclampsia Surgical History Status post tubal ligation Status post bilateral salpingectomy History of History of hip surgery H/O adenoidectomy delivery delivered S/P laparoscopic appendectomy ( 05/06/18) S/P right knee arthroscopy History of tonsillectomy H/O knee surgery Hx of breast reduction, elective Family History Mother Depression Aunt Breast cancer Grandmother Diabetes Uncle Hyperlipemia Menieres disease Depression Grandfather Heart disease Myocardial infarction CVA (cerebral vascular accident) Sister Crohn's disease half sister Down syndrome Aunt Multiple sclerosis Crohn's disease Father Rheumatoid arthritis Brain aneurysm CVA (cerebral vascular accident) Myocardial infarction Brother Bipolar 1 disorder Mentally disabled Other Hypertension Social History household members: family and children housing: house current occupational status: unemployed Smoking Status: Former smoker quit date: 05/23/11 pack-years: 1 how long ago did patient quit smokin alcohol intake: current alcohol intake frequency: holidays/special occasions only substance use type: does not use caffeine: No what type of physical activity do you participate in: none seatbelt use: always do you feel safe at home: Yes additional social history: Single HPI LUMBAR SPINE Details: This documentation accurately reflects the service provided and the decisions made by me, CAROLYN Garza 10/09/24 0826. Part of today???s visit was documented by Michelle SAMPSON, acting as scribe. DAIR APARICIO is a 34 year old F here today for MRI review of her lumbar spine. She did see pain management last month and does not want to proceed with injections. The patient did take the methocarbamol as prescribed at her last visit however this did not give her any pain relief. The patient continues to take ibuprofen and Tylenol [id number] without much benefit. Patient says that she is unable to take naproxen or meloxicam as she has not had reactions to those in the past. HPI from 09/03/24: DARI APARICIO is a 34 year old F here today for sciatic nerve pain. Pain (location, quality, quantity, radiation):Patient is having pain in her lower back. The pain shoots down to both sides of the buttocks and goes down both legs. The right side hurts the worst. She did have surgery on her right hip, it wa (more content not included)... Normal [facility] Magnetic resonance imaging r eportOrdered By: James Cortez on 10-08-2024 Study report [facility] Imaging Services [address] [place] [address] Spine Lumbar (Routine) MR#: [id number] Acct: [id number] Name: DARI APARICIO Rep #: [id number] : 1990 F 34 From: James Cortez MD PCP: Dr. Steph Camacho MD Status: REG CLI Study:Spine Lumbar (Routine) Date of Exam: 10/06/24 Exam# [id number] Ordering Dr: Alberto Kumar PA PROCEDURE: SPINE LUMBAR (ROUTINE) 10/06/2024 REASON FOR EXAM: PAIN, LUMBAR RADICULOPATHY TECHNIQUE: Multiplanar and multisequence images were obtained without IV contrast administration. FINDINGS: No fracture or malalignment. Vertebral marrow signal appears within limits. Conus Medullaris: Appears to terminate at T12-L1 and is normal in morphology. Cauda equina appears within limits. L1-2: Appears within limits L2-3: Appears within limits L3-4: Mild disc desiccation. No significant appearing loss of disc height. Disc otherwise appears within limits. No central or foraminal narrowing. L4-5: Disc desiccation with mild broad-base left paracentral foraminal disc bulge. The exiting left L4 nerve appears within limits without evidence of compression. This appears to be in contact with and slightly displacing the traversing left L5 nerve without obvious compression, axial 20. No significant appearing foraminal narrowing. L5-S 1: Mild disc desiccation with a small central disc bulge without significant appearing central or foraminal narrowing. Limited images of the retroperitoneum appears within limits. 2 cm thick appearing endometrium may represent endometrial thickening with endometrial canal fluid not excluded. Correlate with menstrual cycle and may consider follow-up nonemergent pelvic ultrasound. Smallamount of pelvic free fluid noted. Small follicle seen in bilateral ovaries. MRI/Spine Lumbar (Routine) IMPRESSION: L4-5: Disc desiccation with mild broad-base left paracentral foraminal disc bulge. The exiting left L4 nerve appears within limits without evidence of compression. This appears to be in contact with and slightly displacing the traversing left L5 nerve without obvious compression, axial 20. No significant appearing foraminal narrowing. 2 cm thick appearing endometrium may represent endometrial thickening with endometrial canal fluid not excluded. Correlate with menstrual cycle and may consider follow-up nonemergent pelvic ultrasound. Smallamount of pelvic free fluid noted. Reading Location: [facility] CC: CAROLYN Garza; Dr. Steph Camacho MD ~ Patient Care Specialist: Signed [facility] Spine Lumbar (Routine)on Spine Lumbar (Routine) [facility] Imaging Services [address] [place], [place] [id number] Spine Lumbar (Routine) MR#: [id number] Acct: [id number] Name: DARI APARICIO Rep #: [id number] : 1990 F 34 From: James Cortez MD PCP: Dr. Steph Camacho MD Status: REG CLI Study: Spine Lumbar (Routine) Date of Exam: 10/06/24 Exam# [id number] Ordering Dr: Alisson Kumar PROCEDURE: SPINE LUMBAR (ROUTINE) 10/06/2024 REASON FOR EXAM: PAIN, LUMBAR RADICULOPATHY TECHNIQUE: Multiplanar and multisequence images were obtained without IV contrast administration. FINDINGS: No fracture or malalignment. Vertebral marrow signal appears within limits. Conus Medullaris: Appears to terminate at T12-L1 and is normal in morphology. Cauda equina appears within limits. L1-2: Appears within limits L2-3: Appears within limits L3-4: Mild disc desiccation. No significant appearing loss of disc height. Disc otherwise appears within limits. No central or foraminal narrowing. L4-5: Disc desiccation with mild broad-base left paracentral foraminal disc bulge. The exiting left L4 nerve appears within limits without evidence of compression. This appears to be in contact with and slightly displacing the traversing left L5 nerve without obvious compression, axial 20. No significant appearing foraminal narrowing. L5-S 1: Mild disc desiccation with a small central disc bulge without significant appearing central or foraminal narrowing. Limited images of the retroperitoneum appears within limits. 2 cm thick appearing endometrium may represent endometrial thickening with endometrial canal fluid not excluded. Correlate with menstrual cycle and may consider follow-up nonemergent pelvic ultrasound. Small amount of pelvic free fluid noted. Small follicle seen in bilateral ovaries. MRI/Spine Lumbar (Routine) IMPRESSION: L4-5: Disc desiccation with mild broad-base left paracentral foraminal disc bulge. The exiting left L4 nerve appears within limits without evidence of compression. This appears to be in contact with and slightly displacing the traversing left L5 nerve without obvious compression, axial 20. No significant appearing foraminal narrowing. 2 cm thick appearing endometrium may represent endometrial thickening with endometrial canal fluid not excluded. Correlate with menstrual cycle and may consider follow-up nonemergent pelvic ultrasound. Small amount of pelvic free fluid noted. Reading Location: [facility] CC: CAROLYN Garza; Dr. Steph Camacho MD Patient Care Specialist: Signed [facility] [id number] [id number] Please let the pt kn ow Trulicity 1.5 mg is sent to the pharmacy Hai, Please offer an yaya for the pt in October Thank you [facility] [phone] Dr Pierre please advise [facility] [phone] Please let the pt kn ow Trulicity can be increased to 1.5 mg if she wants and she will need an yaya in October Please let me know Thank you [facility] 29on 09-25-2024 29 Addended by: ANAI PIERRE on: 09/25/2024 10:35 AM Modules accepted: Orders [facility] 36on 09-25-2024 36 Patient has been scheduled for appointment with in October. [facility] Land Use Planner Office Visit Reporton 09-25-2024 Land Use Planner Office Visit Report [facility] [address], [address] [place] [address] OFFICE VISIT Date of Service: 09/25/24 MR#: [id number] Acct: [id number] Name: DARI APARICIOLE Rep #: [id number] : 1990 Provider: Dr. 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: No Is patient in pain?: No Feel stressed/tense/nervous/ anxious/difficulty sleeping: not at all Allergies amoxicillin (From Augmentin) Adverse Reaction (Mild, Verified 09/25/24 08:34) Vomiting clavulanic acid (From Augmentin) Adverse Reaction (Mild, Verified 09/25/24 08:34) Vomiting naproxen Adverse Reaction (Verified 09/25/24 08:34) Other varenicline tartrate (From Chantix) Adverse Reaction (Verified 09/25/24 08:34) Other Medications ???Medication ???Instructions ???Recorded ???Confirmed ???Type ondansetron 4 mg disintegrating 4 mg PO Q6H PRN nausea and 5 09/25/24 Rx tablet vomiting #10 tabs desvenlafaxine succinate 50 mg 50 mg PO DAILY #90 tabs 08/22/24 0 09/25/24 Rx tablet,extended release 24 hr methocarbamol 500 mg tablet 500 mg PO TID PRN pain/spasms #60 09/03/24 09/25/24 Rx tabs dulaglutide 0.75 mg/0.5 mL 0.75 mg subcut QWEEK 09/17/24 05/11/14 History subcutaneous pen injector (Trulicity) omeprazole 40 mg capsule,delayed 40 mg PO BID #60 caps 09/17/2411/14 Rx release Is last menstrual period known: Yes Last Menstrual Period: 10/10/24 Post menopausal: No Patient : No : No PFSH Medical History Leg cramping Delayed gastric emptying History of gestational diabetes 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 Chronic back pain Anxiety Arthritis High cholesterol Former smoker Maxillary sinusitis Effusion, left knee PTSD (post-traumatic stress disorder) Low iron Back pain Migraine headache History of IBS Sleep apnea Asthma Shortness of breath on exertion Leg cramps Hypertension Adopted ASCUS with positive high risk HPV Pelvic pain Hypersomnia Rectal bleeding Anxiety and depression Spontaneous HPV test positive Acute appendicitis GERD (gastroesophageal reflux disease) Irregular periods Obesity Scoliosis IBS (irritable bowel syndrome) Preeclampsia Surgical History Status post tubal ligation Status post bilateral salpingectomy History of History of hip surgery H/O adenoidectomy delivery delivered S/P laparoscopic appendectomy ( 05/06/18) S/P right knee arthroscopy History of tonsillectomy H/O knee surgery Hx of breast reduction, elective Family History Mother Depression Aunt Breast cancer Grandmother Diabetes Uncle Hyperlipemia Menieres disease Depression Grandfather Heart disease Myocardial infarction CVA (cerebral vascular accident) Sister Crohn's disease half sister Down syndrome Aunt Multiple sclerosis Crohn's disease Father Rheumatoid arthritis Brain aneurysm CVA (cerebral vascular accident) Myocardial infarction Brother Bipolar 1 disorder Mentally disabled Other Hypertension Social History household members: family and children housing: house current occupational status: unemployed Smoking Status: Former smoker quit date: 05/23/11 pack-years: 1 how long ago did patient quit smokin alcohol intake: current alcohol intake frequency: holidays/special occasions only substance use type: does not use caffeine: No what type of physical activity do you participate in: none seatbelt use: always do you feel safe at home: Yes additional social history: Single History 3 Elective abortions Hx Para 2 Spontaneous abortions Hx # Term Pregnancies 2 Ectopic pregnancies Hx # Pregnancies 1 Multiple births # of living children 2 Past Pregnancies Del. Date Name GA/Weeks Outcome Route Bth Weight Gen Labor Lgth Anesthesia Del Locatn Provider FOAzucena 04/19/12 Kika 39 live - full term Female [facility] Alma Delia 11/20/18 Eliezer spontaneous Female 02/12/20 Mo 39 live - full term (more content not included)... Normal [facility] [id number] 09-24-[id number] Pierre please advise Normal [facility] Vitamin D,25 Hydroxyon 09-19 Vitamin D 25-OH 26.5 ng/mL Low 30-100 [facility] Comment on above: Result Comment: Jody min D Status Deficiency: <20 ng/mL (50nmol/L) Insufficiency: 20-30 ng/mL (50-75 nmol/L) Sufficiency: 30-100 ng/mL (75-250 nmol/L) Toxicity: >100 ng/mL (>250 nmol/L) Performed By: #### L 100.0100, L700.6800, L500.4050, L501.2450 #### [facility] [address] [place], [address] Internal Medicine Office Vis iton 09-16-2024 Internal Medicine Office Visit [facility] [address] [place] [address] [place] [address] OFFICE VISIT Date of Service: 09/17/24 MR#: [id number] Acct: [id number] Name: DARI APARICIO Rep #: [id number] : 1990 Provider: Dr. 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 Chief Complaint: [employer]- [facility] PT Is patient in pain?: Yes (8 lower back pain ) Allergies amoxicillin (From Augmentin) Adverse Reaction (Mild, Verified 09/17/24 10:28) Vomiting clavulanic acid (From Augmentin) Adverse Reaction (Mild, Verified 09/17/24 10:28) Vomiting naproxen Adverse Reaction (Verified 09/17/24 10:28) Other varenicline tartrate (From Chantix) Adverse Reaction (Verified 09/17/24 10:28) Other Medications ???Medication ???Instructions ???Recorded ???Confirmed ???Type ondansetron 4 mg disintegrating 4 mg PO Q6H PRN nausea and 5 09/17/24 Rx tablet vomiting #10 tabs desvenlafaxine succinate 50 mg 50 mg PO DAILY #90 tabs 08/22/24 0 09/17/24 Rx tablet,extended release 24 hr methocarbamol 500 mg tablet 500 mg PO TID PRN pain/spasms #60 09/03/24 09/17/24 Rx tabs dulaglutide 0.75 mg/0.5 mL 0.75 mg subcut QWEEK 09/17/2408/22 History subcutaneous pen injector (Trulicity) omeprazole 40 mg capsule,delayed 40 mg PO BID #60 caps 09/17/24 Rx release Have you fallen in the past year?: No Nurse's Note: pt reports that she is scheduled with pain management later today to establish care regarding her lower back pain states she is scheduled for an MRI on 10/06 requesting refill on omeprazole reports that she sees a [facility] obesity physician who manages her trulicity injection prescription. [facility] Medical History (Updated 09/17/24 @ 12:[address] 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 Chronic back pain Anxiety Arthritis High cholesterol Former smoker Maxillary sinusitis Effusion, left knee PTSD (post-traumatic stress disorder) Low iron Back pain Migraine headache History of IBS Sleep apnea Asthma Shortness of breath on exertion Leg cramps Hypertension Adopted ASCUS with positive high risk HPV Pelvic pain Hypersomnia Rectal bleeding Anxiety and depression Spontaneous HPV test positive Acute appendicitis GERD (gastroesophageal reflux disease) Irregular periods Obesity Scoliosis IBS (irritable bowel syndrome) Preeclampsia Surgical History Status post tubal ligation Status post bilateral salpingectomy History of History of hip surgery H/O adenoidectomy delivery delivered S/P laparoscopic appendectomy ( 05/06/18) S/P right knee arthroscopy History of tonsillectomy H/O knee surgery Hx of breast reduction, elective Family History (Updated 09/17/24 @ 10:[address] Steph Camacho MD) Mother Depression Aunt Breast cancer Grandmother Diabetes Uncle Hyperlipemia Menieres disease Depression Grandfather Heart disease Myocardial infarction CVA (cerebral vascular accident) Sister Crohn's disease half sister Down syndrome Aunt Multiple sclerosis Crohn's disease Father Rheumatoid arthritis Brain aneurysm CVA (cerebral vascular accident) Myocardial infarction Brother Bipolar 1 disorder Mentally disabled Other Hypertension Social History (Updated 09/17/24 @ 10:[address] Steph Camacho MD) household members: family and children housing: house current occupational status: unemployed Smoking Status: Former smoker quit date: 05/23/11 pack-years: 1 how long ago did patient quit smokin alcohol intake: current alcohol intake frequency: holidays/special occasions only substance use type: does not use caffeine: No what type of physical activity do you participate in: none seatbelt use: always do you feel safe at home: Yes additional social history: Single HPI HPI Chief Complaint: [employer]- [employer] PT Details: DARI APARICIO, is a 34 F who presents to the office today to transition care. She was seeing Renea Bassett DNP, and last saw her in December. She is due for a vitamin D level. She is otherwise up to date on her routine blood work. She is up to date on her screening. She isn't due for any immunizations. S (more content not included)... Normal [facility] [id number] 09-07-2024 [id number] PA Denied for Wegovy PA Approved for Trulicity [facility] [id number] 09-06-2024 [id number] PA sent for Trulicit y and Wegovy [facility] [phone] Please do pa for trulicity last A1C 5.1 and wegovy and let the pt know Thank you [facility] [phone] Dr Pierre please advise [facility] L/S Spine Bending Flex/[place] 09-03-2024 L/S Spine Bending Flex/Ext [facility] Imaging Services [address] [place], [place] [id number] L/S Spine Bending Flex/Ext MR#: [id number] Acct: [id number] Name: DARI APARICIO Rep #: [id number] : 1990 F 34 From: James Cortez MD PCP: Dr. Steph Camacho MD Status: DEP AMB Study: L/S Spine Bending Flex/Ext Date of Exam: 09/03 Exam# [id number] Ordering Dr: Alisson Kumar PROCEDURE: L/S SPINE BENDING FLEX/EXT 09/03/2024 REASON FOR EXAM: CHRONIC PAIN, PAIN DOWN BOTH LEGS TECHNIQUE: Flexion and extension lateral views of the lumbosacral spine, 2 total images COMPARISON: AP and lateral views 08/24/2024 FINDINGS: No evidence of fracture or malalignment. No instability identified on extension or flexion view. Disc spaces appear within limits. RAD/L/S Spine Bending Flex/Ext IMPRESSION: Flexion and extension views appear within limits. Reading Location: [id number] CC: CAROLYN Garza; Dr. Steph Camacho MD Patient Care Specialist: Signed Normal [facility] Orthopedic Visit Reporton Orthopedic Visit Report [facility] [address] [place] [address] [address] [place] [address] OFFICE VISIT Date of Service: 09/03/24 MR#: [id number] Acct: [id number] Name: DARI APARICIO Rep #: [id number] : 1990 Provider: CAROLYN Garza Age/Sex: 34/F Location[place] [facility] Status: Signed Intake Vital Signs 08/22/24 14:49 09/03/24 09:22 Height 5 ft 1 in 5 ft 1 in Weight: 170 lb 166 lb BMI 32.1 31.4 BP 130/62 H Blood Pressure Location Lt brachial Position Sitting Respiration 18 Pulse 105 H Pulse Source Monitor Temp 97.8 F Temp Source Temporal Pulse Oximetry (%) 98 Oxygen Delivery Method room air Intake Visit Reasons: LUMBAR SPINE Chief Complaint: Sciatic nerve pain Accompanied by: Self Is patient in pain?: Yes Pain scale (1-10): 6 Allergies amoxicillin (From Augmentin) Adverse Reaction (Mild, Verified 09/03/24 09:25) Vomiting clavulanic acid (From Augmentin) Adverse Reaction (Mild, Verified 09/03/24 09:25) Vomiting naproxen Adverse Reaction (Verified 09/03/24 09:25) Other varenicline tartrate (From Chantix) Adverse Reaction (Verified 09/03/24 09:25) Other Medications ???Medication ???Instructions ???Recorded ???Confirmed ???Type cyclobenzaprine 7.5 mg tablet 7.5 mg PO QHS PRN muscle spasm #20 01/13/24 09/03/24 Rx tabs omeprazole 40 mg capsule,delayed 40 mg PO BID #60 caps 04/25/24 Rx release ondansetron 4 mg disintegrating 4 mg PO Q6H PRN nausea and 5 09/03/24 Rx tablet vomiting #10 tabs desvenlafaxine succinate 50 mg 50 mg PO DAILY #90 tabs 08/22/24 0 09/03/24 Rx tablet,extended release 24 hr methocarbamol 500 mg tablet 500 mg PO TID PRN pain/spasms #60 09/03/24 09/03/24 Rx tabs Have you fallen in the past year?: No PFSH Medical History Chronic back pain Anxiety Arthritis High cholesterol Former smoker Maxillary sinusitis Effusion, left knee Diabetes PTSD (post-traumatic stress disorder) Low iron Back pain Migraine headache History of IBS Sleep apnea Asthma Shortness of breath on exertion Leg cramps Hypertension Adopted ASCUS with positive high risk HPV Pelvic pain Hypersomnia Rectal bleeding Anxiety and depression Spontaneous HPV test positive Acute appendicitis GERD (gastroesophageal reflux disease) Irregular periods Obesity Scoliosis IBS (irritable bowel syndrome) Preeclampsia Surgical History Status post tubal ligation Status post bilateral salpingectomy History of History of hip surgery H/O adenoidectomy delivery delivered S/P laparoscopic appendectomy ( 05/06/18) S/P right knee arthroscopy History of tonsillectomy H/O knee surgery Hx of breast reduction, elective Family History Mother Depression Aunt Breast cancer Multiple sclerosis Grandmother Diabetes Uncle Hyperlipemia Menieres disease Depression Grandfather Heart disease Myocardial infarction CVA (cerebral vascular accident) Sister Crohn's disease half sister Other Hypertension Social History household members: family and children housing: house current occupational status: unemployed Smoking Status: Former smoker how long ago did patient quit smokin alcohol intake: current alcohol intake frequency: holidays/special occasions only substance use type: does not use caffeine: No what type of physical activity do you participate in: none seatbelt use: always do you feel safe at home: Yes additional social history: Single HPI LUMBAR SPINE Details: This documentation accurately reflects the service provided and the decisions made by me, CAROLYN Garza 09/03/24 0922. Part of today???s visit was documented by Simi Cole MA, acting as scribe. DARI APARICIO is a 34 year old F here today for sciatic nerve pain. Pain (location, quality, quantity, radiation):Patient is having pain in her lower back. The pain shoots down to both sides of the buttocks and goes down both legs. The right side hurts the worst. She did have surgery on her right hip, it was a labral tear repair in 2019. She has had low back pain since 2019, comes in flares. Her current flare has been going on for last 5-6 months without relief. Patient is unsure how long her prior flares would last. Onset (date, injury, precipitating event): This has been going on since 2019, worsening over the last 5-6 months. Says that she will get pain that extends down both legs at different times. The pain will go down the lateral side of the thighs. No pain (more content not included)... Normal [facility] [id number] 08-31-2024 [id number] Please clarify zepbo und prefilled syringe or single use vial. Thank you [facility] [phone] PA denied for Contra ve, Can she try Zepbound please? [facility] [phone] PA denied for Contra ve. Drug is Excluded from plan. Patient aware [facility] [id number] 08-30-2024 [id number] Please pa contrave a nd let the pt know If there is no coverage advise to look into [place] self pay pharmacy Thank you [facility] [phone] PA started for Contrave [facility] [phone] Please contact the p t and ask what pharmacy she prefers to use for contrave Thank you [facility] [phone] DR Pierre, please advise [facility] [id number] 08-28-2024 [id number] Please let the pt kn ow that she can take zepbound for weight loss without DM type 2. Health insurance company usually will not cover mounjaro without DM. The pt does not have DM type 2. Zepbound and mounjaro contains active ingredient tirzepatide. Thank you [facility] [phone] HgB A1C 5.1 scanned into media mgr. Please advise. Thank you! [facility] Hemoglobin A1con 08-24-2024 HbA1c (Bld) [Mass fraction] 5.1 % Low <=5.6 [facility] Comment on above: Performed By: #### L 501.9985 ####[facility] [id number] [facility]. [place], [place], [id number] Hemoglobin A1c percentageon 08-24-2024 HbA1c (Bld) [Mass fraction] 5.1 % Low >5.7 [facility] Lumbar Spine 2 or 3 Viewson 08-24-2024 Lumbar Spine 2 or 3 Views [facility] Imaging Services [address] [place], [place] [id number] Lumbar Spine 2 or 3 Views MR#: [id number] Acct: [id number] Name: DARI APARICIO Rep #: [id number] : 1990 F 34 From: James Cortez MD PCP: Dr. Steph Camacho MD Status: REG CLI Study: Lumbar Spine 2 or 3 Views Date of Exam: Exam# [id number] Ordering Dr: Altaf Nascimento PROCEDURE: LUMBAR SPINE 2 OR 3 VIEWS 08/24/2024 REASON FOR EXAM: CHRONIC BACK PAIN, PAIN DOWN BOTH LEGS TECHNIQUE: 2 view(s) of the lumbar spine COMPARISON: None available FINDINGS: No fracture or malalignment. The disc spaces appear within limits. SI joints appear within limits as imaged. RAD/Lumbar Spine 2 or 3 Views IMPRESSION: Study appears with Reading Location: [id number] CC: Dr. Steph Camacho MD; CAROLYN Anton Patient Care Specialist: Signed Normal [facility] Office Vis iton 08-22-2024 Internal Medicine Office Visit [facility] [address] [place] [address] OFFICE VISIT Date of Service: 08/22/24 MR#: [id number] Acct: [id number] Name: DARI APARICIO Rep #: [id number] : 1990 Provider: CAROLYN Anton Age/Sex: 34/F Location[place] [facility] Status: Signed Intake Vital Signs 07/10/24 12:11 08/22/24 14:49 Height 5 ft 1 in 5 ft 1 in Weight: 170 lb BMI 32.1 BP 130/62 H Blood Pressure Location Lt brachial Position Sitting Respiration 18 Pulse 105 H Pulse Source Monitor Temp 97.8 F Temp Source Temporal Pulse Oximetry (%) 98 Oxygen Delivery Method room air Intake Visit Reasons: ACUTE - SEVERE SCIATICA Chief Complaint: ACUTE- SEVERE SCIATICA Is patient in pain?: Yes (8 pain in back ) Allergies amoxicillin (From Augmentin) Adverse Reaction (Mild, Verified 08/22/24 14:50) Vomiting clavulanic acid (From Augmentin) Adverse Reaction (Mild, Verified 08/22/24 14:50) Vomiting naproxen Adverse Reaction (Verified 08/22/24 14:50) Other varenicline tartrate (From Chantix) Adverse Reaction (Verified 08/22/24 14:50) Other Medications ???Medication ???Instructions ???Recorded ???Confirmed ???Type cyclobenzaprine 7.5 mg tablet 7.5 mg PO QHS PRN muscle spasm #20 01/13/24 08/22/24 Rx tabs omeprazole 40 mg capsule,delayed 40 mg PO BID #60 caps 04/25/2407/17 Rx release ondansetron 4 mg disintegrating 4 mg PO Q6H PRN nausea and 5 08/22/24 Rx tablet vomiting #10 tabs desvenlafaxine succinate 50 mg 50 mg PO DAILY #90 tabs 08/22/24 0 08/22/24 Rx tablet,extended release 24 hr Have you fallen in the past year?: No Nurse's Note: pt reports that she is having alot of anxiety related to having to place her daughter in a facility for an eating disorder pt reports that she is having discomfort related to her sciatic nerve pain. was seen at [facility] for this and was told to request an MRI of the back [facility] Medical History (Updated 08/22/24 @ 15:24 by Altaf LEON, PA) Chronic back pain Anxiety Arthritis High cholesterol Former smoker Maxillary sinusitis Effusion, left knee Diabetes PTSD (post-traumatic stress disorder) Low iron Back pain Migraine headache History of IBS Sleep apnea Asthma Shortness of breath on exertion Leg cramps Hypertension Adopted ASCUS with positive high risk HPV Pelvic pain Hypersomnia Rectal bleeding Anxiety and depression Spontaneous HPV test positive Acute appendicitis GERD (gastroesophageal reflux disease) Irregular periods Obesity Scoliosis IBS (irritable bowel syndrome) Preeclampsia Surgical History Status post tubal ligation Status post bilateral salpingectomy History of History of hip surgery H/O adenoidectomy delivery delivered S/P laparoscopic appendectomy ( 05/06/18) S/P right knee arthroscopy History of tonsillectomy H/O knee surgery Hx of breast reduction, elective Family History Mother Depression Aunt Breast cancer Multiple sclerosis Grandmother Diabetes Uncle Hyperlipemia Menieres disease Depression Grandfather Heart disease Myocardial infarction CVA (cerebral vascular accident) Sister Crohn's disease half sister Other Hypertension Social History household members: family and children housing: house current occupational status: unemployed Smoking Status: Former smoker how long ago did patient quit smokin alcohol intake: current alcohol intake frequency: holidays/special occasions only substance use type: does not use caffeine: No what type of physical activity do you participate in: none seatbelt use: always do you feel safe at home: Yes additional social history: Single HPI HPI Chief Complaint: ACUTE- SEVERE SCIATICA Details: DARI APARICIO, is a 34 F who presents to the office today to discuss chronic sciatica issues. She states that she has had issues since 2019 after being (ended in loss of child). She states that this has always come and gone where it was occurring every couple of weeks. She states that when it would flare-up that it would last 3-4 days and then would subside but then come back. She states that the pains occur in both the right and the left sides. She states it starts in the back and it radiates into the legs (does not cross the knees) and it is sharp and throbbing pains. She is currently seeing chiropractor and has done this on and off for many years. She states that she does take Tylenol and/or Ibuprofen and has also done some muscle relaxers previously. She states that the NSAIDS help but the muscle relaxer does (more content not included)... Normal [facility] XR CHEST 2 VIEWSon 5 XR CHEST 2 VIEWS ORIGINAL EXAMINATION: TWO XRAY VIEWS OF THE CHEST 08/01/2024 10:13 am COMPARISON: None HISTORY: ORDERING SYSTEM PROVIDED HISTORY: Reason for Exam: cough FINDINGS: The cardiomediastinal silhouette demonstrates a normal appearance. No consolidative opacity is identified. There is no pleural effusion or pneumothorax. No free air seen beneath the level of diaphragm. There are no acute osseous abnormalities. IMPRESSION: No acute cardiopulmonary process. I have personally reviewed the images of this examination and agree with the resident's findings and interpretation. Interpreted by: Gregorio Carmichael MD Preliminary Report By: Lobito Knowles MD Electronically signed By Gregorio Carmichael MD Dictated Date: 08/01/2024 10:19:13 AM Prelim Date: 08/01/2024 10:25:16 AM Sign Date: 08/01/2024 10:25:16 AM Ordering Provider: RENEA CASAREZ [facility] - Microbiology an d Antimicrobial susceptibilityOrdered By: Daniel Tapia on 07-28-2024 SARS-CoV-2 (COVID-19) RNA MARSHA+probe Ql (Unsp spec) Not detected [facility] No Panel InformationOrdered By: Daniel Tapia on 07-28-2024 Influenza Types A,B Rapid (Clinic) Detected [facility] Visit Reporton 0 07-28-2024 Urgent Care Visit Report [facility] [address], [address] [place] [address] OFFICE VISIT Date of Service: 07/28/24 MR#: [id number] Acct: [id number] Name: DARI APARICIO Rep #: [id number] : 1990 Provider: CAROLYN Lyle Age/Sex: 34/F Location[place] [facility] Status: Signed Intake Vital Signs 07/10/24 12:11 07/28/24 10:25 Height 5 ft 1 in BP 112/76 Blood Pressure Location Lt brachial Position Sitting Respiration 14 Pulse 82 Pulse Source NIBP Temp 98.2 F Temp Source Oral Pulse Oximetry (%) 98 Oxygen Delivery Method room air Intake Visit Reasons: CONCERN FOR SINUS INFECTION Chief Complaint: cough, DASH, ear pain, mucus, chills/sweats 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 Required: No Is patient in pain?: Yes Allergies amoxicillin (From Augmentin) Adverse Reaction (Mild, Verified 07/28/24 10:26) Vomiting clavulanic acid (From Augmentin) Adverse Reaction (Mild, Verified 07/28/24 10:26) Vomiting naproxen Adverse Reaction (Verified 07/28/24 10:26) Other varenicline tartrate (From Chantix) Adverse Reaction (Verified 07/28/24 10:26) Other Medications ???Medication ???Instructions ???Recorded ???Confirmed ???Type cyclobenzaprine 7.5 mg tablet 7.5 mg PO QHS PRN muscle spasm #20 01/13/24 07/10/24 Rx tabs desvenlafaxine succinate 50 mg 50 mg PO DAILY #90 tabs 03/01/24 0 07/10/24 Rx tablet,extended release 24 hr omeprazole 40 mg capsule,delayed 40 mg PO BID #60 caps 04/25/24 Rx release ondansetron 4 mg disintegrating 4 mg PO Q6H PRN nausea and 5 Rx tablet vomiting #10 tabs Is last menstrual period known: No Post menopausal: No Patient : No Have you fallen in the past year?: No Nurse's Note: cough, DASH, ear pain, mucus, chills/sweats x 4 days. denies fever. concern for sinus infection PFSH Medical History Anxiety Arthritis High cholesterol Former smoker Maxillary sinusitis Effusion, left knee Diabetes PTSD (post-traumatic stress disorder) Low iron Back pain Migraine headache History of IBS Sleep apnea Asthma Shortness of breath on exertion Leg cramps Hypertension Adopted ASCUS with positive high risk HPV Pelvic pain Hypersomnia Rectal bleeding Anxiety and depression Spontaneous HPV test positive Acute appendicitis GERD (gastroesophageal reflux disease) Irregular periods Obesity Scoliosis IBS (irritable bowel syndrome) Chronic back pain Preeclampsia Surgical History Status post tubal ligation Status post bilateral salpingectomy History of History of hip surgery H/O adenoidectomy delivery delivered S/P laparoscopic appendectomy ( 05/06/18) S/P right knee arthroscopy History of tonsillectomy H/O knee surgery Hx of breast reduction, elective Family History Mother Depression Aunt Breast cancer Multiple sclerosis Grandmother Diabetes Uncle Hyperlipemia Menieres disease Depression Grandfather Heart disease Myocardial infarction CVA (cerebral vascular accident) Sister Crohn's disease half sister Other Hypertension Social History household members: family and children housing: house current occupational status: unemployed Smoking Status: Former smoker how long ago did patient quit smokin alcohol intake: current alcohol intake frequency: holidays/special occasions only substance use type: does not use caffeine: No what type of physical activity do you participate in: none seatbelt use: always do you feel safe at home: Yes additional social history: Single HPI HPI Chief Complaint: cough, DASH, ear pain, mucus, chills/sweats Details: DARI APARICIO, is a 34 F who presents to the office today for evaluation of sinus infection. Patient states that she is pretty sure I have a sinus infection. Patient notes that her symptoms started approximately 4-5 days ago with nasal congestion, rhinitis, sputum production, sinus pain, headache, photophobia, and chills. Patient states that she has been in contact with 3 other individuals who all tested positive for influenza and she herself had RSV several weeks ago. Patient has utilized OTC Tylenol which offers no benefit of her symptoms. Patient has utilized no other treatment at this time. ROS Const Constitutional: Positive for headache(s); No chills, fever(s) or weakness Eyes Eyes: Positive for Light sensitivity; No irritation, discharge or eye pain ENT ENT: Positive for ear or mastoid pain, nasal congestion, sinus pressure, sinus pain, nasal discharge, headache(s) and sore throat Resp Respi (more content not included)... [facility] 07-24-2024 36 Name of caller: Archana perea Contact phone number: [phone] Relationship to Patient: patient Provider: soonest available Practice: [facility] Chief Complaint/Reason for Call: patient is calling in checking on the status of their referral that they state was faxed over twice from [facility]. Patient would like a callback please advise and thank you Best time of day caller can be reached: any Patient advised that office/PCP has 24-48 business hours to return their call: Yes [facility] 36on 07-23-2024 36 Name of Caller: Archana perea Contact Reason for Appointment: pt states a ref was sent last week for a susie masters consult Office Name: [facility]astics Medication Refills need, if any: NA Medication Name: NA [facility] [id number] 07-16-2024 [id number] I wish it had been different Please ask the pt to stop naltrexone. As for ozempic, it is a medication for DM type2. We need to establish the diagnosis. Hemoglobin A1C was ordered. It can be done by the pt at her convenience. Thank you [facility] [phone] See message. FYI. [facility] 36on 07-16-2024 36 Spoke with pt she is currently at a BMI of 31 informed her that she needs to be at a BMI of 29 or below to schedule a consult. She confirmed understanding. [facility] 36 Name of Caller: Archana perea Contact Reason for Appointment: Patient is requesting to schedule a consult for a susie tuck. Please be advised Office Name: [facility] Office Visiton 07-13-2024 Follow-up visit [id number] Helen Aparicio augustine [place] 1990 F Date Provider Department Center 07/13/2024 [id number] [facility] None Family History Problem [...] Grandfather Paternal Grandmother Maternal Grandfather Level of Service:98797 MO OFFICE/OUTPATIENT ESTABLISHED MOD MDM 30 MIN Reason for Visit and Comments: Weight Management [645] - Nsurg 12 [facility] Progress Noteon 07-13-2024 Progress Note [facility] NON-SURGICAL WEIGHT LOSS MANAGEMENT PROGRAM ROOMING NOTE: FOLLOW UP VISIT Patient: Dari Aparicio Date of : 1990 Service Date: 07/13/2024 Patient History/Assessment Summary: The patient is a pleasant 34 y.o. year old female, who stands Height: 5' 2 (157.5 cm) tall with a weight of Weight: 166 lb (75.3 kg) pounds, resulting in a BMI of Body mass index is 30.36 kg/m?. kg/m2. She is here for follow-up for non-surgical treatment of over weight. Patient has the following question(s): none Pre Program Weight Metrics (Epic) (Surgical Wt Loss Management- baseline) This Visit Non-Surgical Subsequent Eval Date: 07/13/24 Height: 5' 2 (157.5 cm) Weight: 166 lb (75.3 kg) BMI: 30.36 Weight Change: -3.4 lbs Total Weight Change: -30.8 lbs % EBWL: 43% Subsequent Body Fat %: 36.43 Body Fat % Change: -0.75 Follow Up Weight Metrics Last Three Weights Including Today's Weight: Wt Readings from Last 3 Encounters: 07/13/24 166 lb (75.3 kg) 06/15/24 169 lb 6.4 oz (76.8 kg) 12/09/23 142 lb 9.6 oz (64.7 kg) Diabetes Do you currently have diabetes? [...] sheet comorbids) Falls Risk Assessment Patient does take medications which affect BP or mental [...] home O2 Completed by: Kiera Hinds MA [facility] Progress Note HPI, PHYSICAL EXAMINATION & PLAN HPI: Patient here today for follow up for non-surgical weight loss management Weight trend since last visit: lost 3 lbs over 1 m stable weight regain after stopping ozempic This patient's excess weight is causing the following co-morbid conditions at this time:Other IR Physical Examination: Blood pressure 119/73, pulse 87, height 5' 2 (1.575 m), weight 166 lb (75.3 kg). General: This patient is calm and [...] Current Diet This patient?s current diet is: 50-80% meal plan Her diet contains adequate amounts of protein, adequate amounts of healthy fats, adequate amounts of green, leafy vegetables, and adequate amounts of fruits. Her comfort foods include: none Current Activity Does not exercise Current Eating Behaviors This patients demonstrates the [...] the meal structure, composition and portion control Review meal structure, meal composition and portion control in details in order to restart the healthy lifestyle Will restart meal plan and exercise Discuss how to do 1000 jeremy Discuss high caloric density food Unable to tolerate metformin, adipex Trial of naltrexone Discuss side effects in details Other IR Continue current management, continue weight loss program Stable Working with [facility] on her current symptoms [x] Protein goal of 1g protein per [...] anti-obesity medication. I spend a total of 30 minutes on the same day of the [...] was performed.Clinical documentation is updated and completed. Normal [facility] Absolute lymphocyte countOrd ered By: Gonzalo Blanco on 07-10-2024 Lymphocytes Auto (Unsp spec) [#/Vol] 2.29 10*3/uL 0.83-4.51 [facility] Absolute neutrophil countOrd ered By: Gonzalo Blanco on 07-10-2024 Neutrophils (Bld) [#/Vol] 2.8 10*3/uL 2.0-7.7 [facility] Automated blood erythrocyte countOrdered By: Gonzalo Blanco on 07-10-2024 RBC (Bld) [#/Vol] 4.06 10*6/uL Low 4.2-5.4 [facility] Comment on above: Performed By: #### L 100.0100, L500.2500 #### [facility] [address] [facility] [address] Automated blood hematocrit ( percentage)Ordered By: Gonzalo Blanco on 07-10-2024 Hematocrit (Bld) [Volume fraction] 34.1 % Low 37-47 [facility] Comment on above: Performed By: #### L 100.0100, L500.2500 #### [facility] [address] [facility] [address] Automated lymphocyte count a s percentage of total leukocytesOrdered By: Gonzalo Blanco on 07-10-2024 Lymphocytes/100 WBC (Bld) 40.1 % Normal 19-41 [facility] Comment on above: Performed By: #### L 100.0100, L500.2500 #### [facility] [address] [place], [address] Lymphocytes/100 WBC Auto (Unsp spec) 40.1 % 19-41 [facility] Basic Metabolic Profile (BMP )on 07-10-2024 BUN/CRE 15.2 RATIO Normal 10-20 [facility] Comment on above: Performed By: #### L 100.0100, L500.2500 #### [facility] [address] [place], [address] CA,Total 9.3 mg/dL Normal 8.5-10.1 [facility] Comment on above: Performed By: #### L 100.0100, L500.2500 #### [facility] [address] [place], [address] ECRCL 124.33 ml/min Normal [facility] Comment on above: Performed By: #### L 100.0100, L500.2500 #### [facility] [address] [place], [address] EST GFR - AA 149 mL/min Normal >60 [facility] Comment on above: Result Comment: Afri can Indian GFR Calc Performed By: #### L 100.0100, L500.2500 #### [facility] [address] [place], [address] GAP 9 Normal 5-15 [facility] Comment on above: Performed By: #### L 100.0100, L500.2500 #### [facility] [address] [place], [address] Basophil percentageOrdered B y: Gonzalo Blanco on 07-10-2024 Basophils/100 WBC (Bld) 0.9 % Normal 0-1 [facility] Comment on above: Performed By: #### L 100.0100, L500.2500 #### [facility] [address] [place], [address] Blood urea nitrogen (BUN)/cr eatinine ratioOrdered By: Gonzalo Blanco on 07-10-2024 Urea nitrogen/Creatinine [Mass ratio] 15.2 mg/mg 10-20 [facility] CBC W/Diff, Automatedon - Absolute Lymph 2.29 X10 3/uL Normal 0.83-4.51 [facility] Comment on above: Performed By: #### L 100.0100, L500.2500 #### [facility] [address] [place], [address] Absolute Neut 2.8 X10 3/uL Normal 2.0-7.7 [facility] Comment on above: Performed By: #### L 100.0100, L500.2500 #### [facility] [address] [place], [address] IG% 0.400 Normal 0.0-0.9 [facility] Comment on above: Result Comment: IG% - Immature Granulocytes (promyelocytes, myelocytes and metamyelocytes) > 1% indicates that a LEFT SHIFT is Present. Performed By: #### L 100.0100, L500.2500 #### [facility] [address] [place], [address] Nucleated RBC (Bld) [#/Vol] 0 10*3/uL Normal 0-5 [facility] Comment on above: Performed By: #### L 100.0100, L500.2500 #### [facility] [address] [place], [address] RDW SD 37.7 fl Normal 35.1-43.9 [facility] Comment on above: Performed By: #### L 100.0100, L500.2500 #### [facility] [address] [place], [address] CNOVon 07-10-2024 CNOV Office Visit (UCWSTR ) DARI APARICIO ([id number]) 1990 F Date Time Provider Department 07/10/24 12:30 PM VANDANA MIRELES [facility] During your visit today, we recorded the following information about you: Temperature Pulse Respiration Weight 97.7 degrees 96/minute 16/minute 76.4 kg Vandana Mireles APRN.HAND CLERICAL VERIFIER 07/10/2024 12:01 PM Signed Patient came in with complaints of worsening symptoms. Several days ago patient was diagnosed with pneumonia and placed on Augmentin. Patient says now she is having severe diarrhea unable to even hold it feeling very weak and fatigued. Patient says she feels extremely dizzy. Due to all the symptoms patient is being referred to the emergency room. Patient was agreeable and caregiver with her will take her now. Referring Provider: SELF [[id number]] Allergies As of Date: 07/10/2024 Noted Allergy Reaction MITE EXTRACT 07/13/2018 14 - Other: See Comments CHANTIX (VARENICLINE) 12/08/2009 14 - Other: See Comments Comments: Vomiting, diarrhea, bad dreams, restlessness, insomnia NAPROXEN 08/21/2010 14 - Other: See Comments Comments: Broke out in sweats, nightmares and all did was sleep Date Reviewed: 07/10/2024 Reviewed by: Nicole Alba MA - Fully Assessed Reason for Visit: Cough [28] Cmt: chills, dizziness, weakness and major diarrhea seen on Tuesday + pneumonia given augmentin Primary Visit Diagnosis:Generalized weakness [R53.1] Prescriptions as of 07/10/2024 - albuterol HFA (PROVENTIL HFA, VENTOLIN HFA) 90 mcg/actuation inhaler Inhale 2 Puffs as instructed every 4 hours as needed for wheezing/shortness of breath. - Inhalational Spacing Device 1 Device one time only for 1 dose. - azithromycin (ZITHROMAX) 250 mg tablet Take 2 tablets by mouth once daily for 1 day, THEN 1 tablet once daily for 4 days. - amoxicillin-clavulanate potassium (AUGMENTIN) 875-125 mg per tablet Take 1 tablet by mouth two times a day for 5 days. - benzonatate (TESSALON PERLE) 100 mg capsule Take 2 capsules by mouth three times a day as needed for up to 10 days. - aluminum chloride (DRYSOL) 20 % external solution APPLY TO CLEAN AREAS AT NIGHT - omeprazole (PRILOSEC) 40 mg capsule Take 40 mg by mouth two times a day. - albuterol (PROVENTIL) 2.5 mg /3 mL (0.083 %) nebulizer solution Use 3 mL via nebulizer every 4 hours as needed for wheezing/shortness of breath. Use over 5-15minutes. - semaglutide (OZEMPIC) 2 mg/dose (8 mg/3 mL) pen injector Inject 2 mg subcutaneously one time a week. - Clindamycin Phosphate (CLEOCIN T) 1 % lotion Apply to affected area in the morning - tretinoin (RETIN-A) 0.05 % cream Apply a pea size amount to the area at night as tolerated - desvenlafaxine ER (PRISTIQ) 25 mg 24 hr tablet Take 25 mg by mouth once daily. Problem List As Of Date 07/10/2024 Noted Resolved Hypertrophy of breast [N62] 01/07/2005 [...] without diarrhea [K58.*01/07/2016 01/07/2016 Encounter Status:Closed by VANDANA MIRELES on 07/10/24 Normal [facility] CNPNon 07-10-2024 CNPN Telephone (INTMWS) DARI APARICIO ([id number]) 1990 F Date Time Provider Department 07/10/24 NO PCP (HIST) INTMWS During your visit today, we recorded the following information about you: Nyla Acosta, RN 07/10/2024 9:10 AM Signed Pt reports she was seen in UC on Tuesday and prescribed AB and cough pills for pneumonia. Reports the cough pills are not helping her cough. Reports she has a hx of asthma, and having SOB but no wheezing. Asking if UC can refill her albuterol inhaler? [facility] [place]. Patient does not have a pcp. Please advise pt. Prudencio Ortiz PA 07/10/2024 9:42 AM Signed Inhaler sent to pharmacy. Nicole Alba MA 07/10/2024 12:03 PM Signed Patient came to urgent care today, sent to ED. Nicole Alba MA Allergies As of Date: 07/10/2024 Noted Allergy Reaction MITE EXTRACT 07/13/2018 14 - Other: See Comments CHANTIX (VARENICLINE) 12/08/2009 14 - Other: See Comments Comments: Vomiting, diarrhea, bad dreams, restlessness, insomnia NAPROXEN 08/21/2010 14 - Other: See Comments Comments: Broke out in sweats, nightmares and all did was sleep Date Reviewed: 07/10/2024 Reviewed by: Nicole Alba MA - Fully Assessed Reason for Visit: Patient Question [1477] Order(s):albuterol HFA (PROVENTIL HFA, VENTOLIN HFA) 90 mcg/actuation inhalerInhale 2 Puffs as instructed every 4 hours as needed for wheezing/shortness of breath.Disp: 8 gRfl: 0 Inhalational Spacing Device1 Device one time only for 1 dose.Disp: 1 EachRfl: 0 Prescriptions as of 07/10/2024 - albuterol HFA (PROVENTIL HFA, VENTOLIN HFA) 90 mcg/actuation inhaler Inhale 2 Puffs as instructed every 4 hours as needed for wheezing/shortness of breath. - Inhalational Spacing Device 1 Device one time only for 1 dose. - azithromycin (ZITHROMAX) 250 mg tablet Take 2 tablets by mouth once daily for 1 day, THEN 1 tablet once daily for 4 days. - amoxicillin-clavulanate potassium (AUGMENTIN) 875-125 mg per tablet Take 1 tablet by mouth two times a day for 5 days. - benzonatate (TESSALON PERLE) 100 mg capsule Take 2 capsules by mouth three times a day as needed for up to 10 days. - aluminum chloride (DRYSOL) 20 % external solution APPLY TO CLEAN AREAS AT NIGHT - omeprazole (PRILOSEC) 40 mg capsule Take 40 mg by mouth two times a day. - albuterol (PROVENTIL) 2.5 mg /3 mL (0.083 %) nebulizer solution Use 3 mL via nebulizer every 4 hours as needed for wheezing/shortness of breath. Use over 5-15minutes. - semaglutide (OZEMPIC) 2 mg/dose (8 mg/3 mL) pen injector Inject 2 mg subcutaneously one time a week. - Clindamycin Phosphate (CLEOCIN T) 1 % lotion Apply to affected area in the morning - tretinoin (RETIN-A) 0.05 % cream Apply a pea size amount to the area at night as tolerated - desvenlafaxine ER (PRISTIQ) 25 mg 24 hr tablet Take 25 mg by mouth once daily. Problem List As Of Date 07/10/2024 Noted Resolved Hypertrophy of breast [N62] 01/07/2005 [...] Irritable bowel syndrome without diarrhea [K58.*01/07/2016 01/07/2016 Prescriptions ordered this encounter Disp Refills Start End ALBUTEROL SULFATE HFA 90 MCG/ACTUATI* 8 g 0 07/10/2024 Cmt: Generic or brand: dispense inhaler preferred by patient/insurance unless JAVIER flag is selected. Route: INHALATION Sig: Inhale 2 Puffs as instructed every 4 hours as needed for wheezing/shortness of breath. INHALATIONAL SPACING DEVICE 1 Ea* 0 07/10/2024 07/10/2024 Route: Misc Si Device one time only for 1 dose. Medications Discontinued During This Encounter Prescriptions - albuterol HFA (PROVENTIL HFA, VENTOLIN HFA) 90 mcg/actuation inhaler (Discontinued) Inhale 2 Puffs as instructed every 4 hours as needed for wheezing/shortness of breath. Encounter Status:Closed by NICOLE ALBA on 07/10/24 Normal [facility] Carbon dioxide measurementOr dered By: Gonzalo Blanco on 07-10-2024 CO2 [Moles/Vol] 28.0 mmol/L Normal 21.0-32.0 [facility] Comment on above: Performed By: #### L 100.0100, L500.2500 #### [facility] [address] [facility] [place], [place], [address] Chest PA and Lateralon 07-10 Chest PA and Lateral [facility] [address] [place], [place] [address] Chest PA and Lateral MR#: [id number] Acct: [id number] Name: DARI APARICIO Rep #: [id number] : 1990 F 34 From: Chuck evans MD PCP: Care Physician,No Primary Status: PRE ER Study: Chest PA and Lateral Date of Exam: 07/10/24 Exam# [id number] Ordering Dr: Gonzalo Blanco MD PROCEDURE: CHEST PA AND LATERAL REASON FOR EXAM: Chest pain, shortness of breath. TECHNIQUE: Frontal and lateral views of the chest. COMPARISON: Comparison is made with prior study dated January 31, 2024. FINDINGS: EKG electrodes are seen. The heart size is normal. The mediastinal contour is unremarkable. The lungs are clear. The bones are unremarkable. RAD/Chest PA and Lateral IMPRESSION: NEGATIVE CHEST Reading Location: [facility]--1 CC: Dr. Gonzalo Blanco MD; No Primary Care Physician Patient Care Specialist: Signed Normal [facility] Chloride measurementOrdered By: Gonzalo Blanco on 07-10-2024 Chloride [Moles/Vol] 105 mmol/L Normal 98-107 [facility] Comment on above: Performed By: #### L 100.0100, L500.2500 #### [facility] [address] [place], [address] Emergency Department Summary on 07-10-2024 Emergency Department Summary [facility] Medical Records Department [address] [place] [address] Emergency Department Summary 07/10/24 MR#: [id number] Acct: [id number] Name: DARI APARICIO Rep #: [id number] : 1990 34 From: Gonzalo Blanco MD PCP: Care Physician,No Primary Status:REG ER Location: ED HPI History of Present Illness Chief Complaint: Dizziness Informant: patient Onset/Context/Timing Onset: Days Context: Gradual Onset Timing: Continuous Current Severity: Mild Maximum Severity: Mild Narrative Narrative: 34-year-old female history of PTSD. Has had URI symptoms with a cough. She was at the [place] urgent care on Tuesday. They diagnosed with pneumonia and started on both Zithromax and Augmentin. They did not do a chest x-ray or any COVID or flu or other testing. That she has been ill for about 6 days since around last Tuesday or . She has had nausea but no vomiting. She has had loose stools since starting the antibiotics. Mom recently had similar symptoms she had a negative chest x-ray and a negative COVID test. Prior similar symptoms: Yes Recent Illness/Hospitalization : No PFSH PFSH Medical History Anxiety Arthritis High cholesterol Former smoker Maxillary sinusitis Effusion, left knee Diabetes PTSD (post-traumatic stress disorder) Low iron Back pain Migraine headache History of IBS Sleep apnea Asthma Shortness of breath on exertion Leg cramps Hypertension Adopted ASCUS with positive high risk HPV Pelvic pain Hypersomnia Rectal bleeding Anxiety and depression Spontaneous HPV test positive Acute appendicitis GERD (gastroesophageal reflux disease) Irregular periods Obesity Scoliosis IBS (irritable bowel syndrome) Chronic back pain Preeclampsia Home Medications ???Medication ???Instructions ???Recorded ???Last Taken ???Type cyclobenzaprine 7.5 mg tablet 7.5 mg PO QHS PRN muscle spasm #20 01/13/24 Unknown Rx tabs desvenlafaxine succinate 50 mg 50 mg PO DAILY #90 tabs 03/01/24 1 Rx tablet,extended release 24 hr omeprazole 40 mg capsule,delayed 40 mg PO BID #60 caps 04/25/24 Unk nown Rx release ondansetron 4 mg disintegrating 4 mg PO Q6H PRN nausea and 5 Unknown Rx tablet vomiting #90 tabs amoxicillin 875 mg-potassium 1 tab PO BID 07/10/24 Unknown Hist ory clavulanate 125 mg tablet azithromycin 250 mg tablet mg 07/10/24 Unknown History benzonatate 100 mg capsule 200 mg PO TID PRN PRN cough Unknown History ondansetron 4 mg disintegrating 4 mg PO Q6H PRN nausea and 5 Unknown Rx tablet vomiting #10 tabs Allergy/AdvReac Type Severity Reaction Status Date / Time amoxicillin (From Augmentin) AdvReac Mild Vomiting Verified 07/10/24 12:11 clavulanic acid (From AdvReac Mild Vomiting Verified 07/10/24 12:11 Augmentin) naproxen AdvReac Other Verified 07/10/24 12:11 varenicline tartrate (From AdvReac Other Verified 07/10/24 12:11 Chantix) Family History Mother Depression Aunt Breast cancer Multiple sclerosis Grandmother Diabetes Uncle Hyperlipemia Menieres disease Depression Grandfather Heart disease Myocardial infarction CVA (cerebral vascular accident) Sister Crohn's disease half sister Other Hypertension Surgical History Status post tubal ligation Status post bilateral salpingectomy History of History of hip surgery H/O adenoidectomy delivery delivered S/P laparoscopic appendectomy ( 05/06/18) S/P right knee arthroscopy History of tonsillectomy H/O knee surgery Hx of breast reduction, elective Social History household members: family and children housing: house current occupational status: unemployed Smoking Status: Former smoker how long ago did patient quit smokin alcohol intake: current alcohol intake frequency: holidays/special occasions only substance use type: does not use caffeine: No what type of physical activity do you participate in: none seatbelt use: always do you feel safe at home: Yes additional social history: Single ROS ROS ED ROS Narrative Cough. Diarrhea post antibiotics. Nausea without vomiting. Constitutional Constitutional ED: Denies chills or fever(s) Eyes Eyes: Denies blurry vision ENT ENT ED: Denies ear pain Cardiovascular Cardiovascular: Denies chest pain Respiratory/Chest Respiratory/Chest: Reports cough Gastrointestinal Gastrointestinal: Reports diarrhea and nausea; Denies abdominal pain, constipation, melena or vomiting Genitourinary Genitourinary ED: Denies dysuria or hematu (more content not included)... Normal [facility] Eosinophil percentageOrdered By: Gonzalo Blanco on 07-10-2024 Eosinophils/100 WBC (Bld) 3.0 % Normal 0-5 [facility] Comment on above: Performed By: #### L 100.0100, L500.2500 #### [facility] [address] [facility] [place], [place], [id number] Erythrocyte distribution wid th (RBC) [Ratio]Ordered By: Gonzalo Blanco on 07-10-2024 Erythrocyte distribution width (RBC) [Entitic vol] 37.7 fL 35.1-43.9 [facility] Erythrocyte distribution wid th ratioOrdered By: Gonzalo Blanco on 07-10-2024 Erythrocyte distribution width (RBC) [Ratio] 12.3 % Normal 11.6-14.6 [facility] Comment on above: Performed By: #### L 100.0100, L500.2500 #### [facility] [address] [place], [place], [address] Erythrocyte distribution wid th standard deviationOrdered By: Gonzalo Blanco on 07-10-2024 Erythrocyte distribution width (RBC) [Ratio] 37.7 fl 35.1-43.9 [facility] Estimated glomerular filtrat ion rate (GFR) AmericanOrdered By: Gonzalo Blanco on 07-10-2024 Estimated GFR (MDRD) Amer 149 mL/min >60 [facility] Comment on above: GFR Calc Estimation of creatinine rodriguez aranceOrdered By: Gonzalo Blanco on 07-10-2024 Estimated Creatinine Clearance Calc 124.33 ml/min [facility] Glomerular filtration rate ( GFR) estimationOrdered By: Gonzalo Blanco on 07-10-2024 GFR/1.73 sq M.predicted among non-blacks MDRD (S/P/Bld) [Vol rate/Area] 123 mL/min/{1.73_m2} Normal >60 [facility] Comment on above: Non- GFR Calc Result Comment: Non- GFR Calc Performed By: #### L 100.0100, L500.2500 #### [facility] [address] [place], [address] Estimated GFR (MDRD) Non-Af Amer 123 mL/min >60 [facility] Comment on above: Non- GFR Calc Glucose measurementOrdered B y: Gonzalo Blanco on 07-10-2024 Glucose [Mass/Vol] 93 mg/dL Normal 74-106 [facility] Comment on above: Performed By: #### L 100.0100, L500.2500 #### [facility] [address] [facility] [place], [address] Hemoglobin measurementOrdere d By: Gonzalo Blanco on 07-10-2024 Hemoglobin (Bld) [Mass/Vol] 11.5 g/dL Low 12.0-15.0 [facility] Comment on above: Performed By: #### L 100.0100, L500.2500 #### [facility] [address] [place], [address] Immature granulocytes/100 WB C Auto (Bld)Ordered By: Gonzalo Blanco on 07-10-2024 Immature granulocytes/100 WBC (Bld) 0.400 % 0.0-0.9 [facility] Comment on above: IG% - Immature Granu locytes (promyelocytes, myelocytes and metamyelocytes) > 1% indicates that a LEFT SHIFT is Present. Influenza virus A and B and SARS-CoV-2 (COVID-19) and Respiratory syncytial virus RNAOrdered By: Gonzalo Blanco on 07-10-2024 SARS-CoV-2 (COVID-19) RNA MARSHA+probe Ql (Unsp spec) [facility] Lymphocytes Auto (Unsp spec) [#/Vol]Ordered By: Gonzalo Blanco on 07-10-2024 Lymphocytes (Bld) [#/Vol] 2.29 10*3/uL 0.83-4.51 [facility] M100.678on 07-10-2024 M100.678 SARS-CoV-2 (COVID 19 ) Negative INFLUENZA A Negative INFLUENZA B Negative RSV PCR Negative Normal [facility] Comment on above: Performed By: #### L 100.0100, L700.6800, L500.4050, L501.2450 #### [facility] [address] [place], [address] MCV (mean corpuscular volume ) determinationOrdered By: Gonzalo Blanco on 07-10-2024 MCV (RBC) [Entitic vol] 84.0 fL Normal 81-99 [facility] Comment on above: Performed By: #### L 100.0100, L500.2500 #### [facility] [address] [place], [address] Mean corpuscular hemoglobin (MCH) determinationOrdered By: Gonzalo Blanco on 07-10-2024 MCH (RBC) [Entitic mass] 28.3 pg Normal 27.0-32.0 [facility] Comment on above: Performed By: #### L 100.0100, L500.2500 #### [facility] [address] [place], [address] Mean corpuscular hemoglobin concentration (MCHC) determinationOrdered By: Gonzalo Blanco on 07-10-2024 MCHC (RBC) [Mass/Vol] 33.7 g/dL Normal 32-36 [facility] Comment on above: Performed By: #### L 100.0100, L500.2500 #### [facility] [address] [place], [address] Mean platelet volume determi nationOrdered By: Gonzalo Blanco on 07-10-2024 Platelet mean volume (Bld) [Entitic vol] 9.0 fL Normal 6.2-12.0 [facility] Comment on above: Performed By: #### L 100.0100, L500.2500 #### [facility] [address] [place], [address] Monocyte percentageOrdered B y: Gonzalo Blanco on 07-10-2024 Monocytes/100 WBC (Bld) 6.8 % Normal 0-10 [facility] Comment on above: Performed By: #### L 100.0100, L500.2500 #### [facility] [address] [place], [address] Neutrophil percentageOrdered By: Gonzalo Blanco on 07-10-2024 Neutrophils/100 WBC (Bld) 48.8 % Normal 47-70 [facility] Comment on above: Performed By: #### L 100.0100, L500.2500 #### [facility] [address] [place], [address] Nucleated red blood cell per centageOrdered By: Gonzalo Blanco on 07-10-2024 Nucleated RBC/100 WBC (Bld) [Ratio] 0 % 0-5 [facility] Platelet countOrdered By: Andrea Blanco on 07-10-2024 Platelets (Bld) [#/Vol] 400 10*3/uL Normal 150-450 [facility] Comment on above: Performed By: #### L 100.0100, L500.2500 #### [facility] [address] [place], [address] Potassium measurementOrdered By: Gonzalo Blanco on 07-10-2024 Potassium [Moles/Vol] 3.8 mmol/L Normal 3.5-5.1 [facility] Comment on above: Performed By: #### L 100.0100, L500.2500 #### [facility] [address] [place], [address] Serum anion gap measurementO rdered By: Gonzalo Blanco on 07-10-2024 Anion gap [Moles/Vol] 9 mmol/L 5-15 [facility] Serum or plasma calcium miranda urement (mass/volume)Ordered By: Gonzalo Blanco on 07-10-2024 Calcium [Mass/Vol] 9.3 mg/dL 8.5-10.1 [facility] Serum or plasma creatinine m easurement (mass/volume)Ordered By: Gonzalo Blanco on 07-10-2024 Creatinine [Mass/Vol] 0.59 mg/dL Normal 0.55-1.02 [facility] Comment on above: The validity of the calculated GFR & GFRAA in patients over 70 years has not been determined. Clinical correlation is essential. Result Comment: The validity of the calculated GFR GFRAA in patients over 70 years has not been determined. Clinical correlation is essential. Performed By: #### L 100.0100, L500.2500 #### [facility] [address] [place], [address] Serum or plasma urea nitroge n measurement (mass/volume)Ordered By: Gonzalo Blanco on 07-10-2024 Urea nitrogen [Mass/Vol] 9 mg/dL Normal 7-18 [facility] Comment on above: Performed By: #### L 100.0100, L500.2500 #### [facility] [address] [place], [address] Sodium levelOrdered By: Gonzalo Blanco on 07-10-2024 Sodium [Moles/Vol] 142 mmol/L Normal 136-145 [facility] Comment on above: Performed By: #### L 100.0100, L500.2500 #### [facility] [address] [place], [address] White blood cell (WBC) count Ordered By: Gonzalo Blanco on 07-10-2024 WBC (Bld) [#/Vol] 5.7 10*3/uL Normal 4.4-11.0 [facility] Comment on above: Performed By: #### L 100.0100, L500.2500 #### [facility] [address] [place], [address] [id number] 07-09-2024 [id number] See message. Please advise. Thanks! Normal [facility] CNOVon 02-16-2025 CNOV Office Visit (UCWSTR ) DARI APARICIO ([id number]) 1990 F Date Time Provider Department 07/08/24 10:15 AM SHITAL CUMMINS [facility] During your visit today, we recorded the following information about you: Temperature Pulse Respiration Blood pressure 98 degrees 89/minute 18/minute 122/72 Weight 76.5 kg Shital Cummins APRN.HAND CLERICAL VERIFIER 07/08/2024 10:45 AM Signed Subjective Cough Associated symptoms include chest pain (with cough), chills and shortness of breath. Pertinent negatives include no ear pain, no headaches, no sore throat and no myalgias. Dari Aparicio is a 34 year old female who presents with cough, congestion, fatigue for the past 5 days. She states her chest hurts when she coughs. Her family have been sick with URI symptoms also. She feels weak, has had chills, and can't sleep due to cough. She has a history of asthma. Review of Systems Constitutional: Positive for chills and malaise/fatigue. Negative for fever. HENT: Positive for congestion. Negative for ear pain and sore throat. Respiratory: Positive for cough, sputum production and shortness of breath. Cardiovascular: Positive for chest pain (with cough). Gastrointestinal: Negative for diarrhea, nausea and vomiting. Musculoskeletal: Negative for myalgias. Neurological: Negative for headaches. BP 122/72 Pulse 89 Temp 36.7 ?C (98 ?F) (Tympanic) Resp 18 Wt 76.5 kg (168 lb 10.4 oz) LMP 05/08/2024 (Approximate) SpO2 100% BMI 31.35 kg/m? PAST MEDICAL HISTORY Diagnosis Date Anxiety Asthma [...] DX W/COLLJ SPEC WHEN [facility] 01/07/2016 Colonoscopy ESOPHAGOGASTRODUODENOSC OPY TRANSORAL DIAGNOSTIC 10/30/14 EGD PAST SURGICAL HISTORY OF 08/26 pelvic exam under anesth./ PAST SURGICAL HISTORY OF 2013 dental extractions REDUCTION OF LARGE BREAST 03/28 TONSILLECTOMY HX tonsils and adnoids removed ALLERGIES Mite Extract, Chantix [Varenicline], and Naproxen MEDICATIONS azithromycin (ZITHROMAX) 250 mg tablet Take 2 tablets by mouth once daily for 1 day, THEN 1 tablet once daily for 4 days. amoxicillin-clavulanate potassium (AUGMENTIN) 875-125 mg per tablet Take 1 tablet by mouth two times a day for 5 days. benzonatate (TESSALON PERLE) 100 mg capsule Take 2 capsules by mouth three times a day as needed for up to 10 days. aluminum chloride (DRYSOL) 20 % external solution APPLY TO CLEAN AREAS AT NIGHT omeprazole (PRILOSEC) 40 mg capsule Take 40 mg by mouth two times a day. albuterol HFA (PROVENTIL HFA, VENTOLIN HFA) 90 mcg/actuation inhaler Inhale 2 Puffs as instructed every 4 hours as needed for wheezing/shortness of breath. albuterol (PROVENTIL) 2.5 mg /3 mL (0.083 %) nebulizer solution Use 3 mL via nebulizer every 4 hours as needed for wheezing/shortness of breath. Use over 5-15minutes. semaglutide (OZEMPIC) 2 mg/dose (8 mg/3 mL) pen injector Inject 2 mg subcutaneously one time a week. Clindamycin Phosphate (CLEOCIN T) 1 % lotion Apply to affected area in the morning tretinoin (RETIN-A) 0.05 % cream Apply a pea size amount to the area at night as tolerated (Patient not taking: Reported on 06/06/2024) desvenlafaxine ER (PRISTIQ) 25 mg 24 hr tablet Take 25 mg by mouth once daily. (Patient not taking: Reported on 06/06/2024) FAMILY HISTORY Adopted: Yes Problem Relation Age [...] Social History Tobacco Use Smoking status: Former Current packs/day: 0.50 Average packs/day: 0.5 packs/day for 1.5 years (0.8 ttl pk-yrs) Types: Cigarettes Smokeless tobacco: Never Tobacco comments: quit 2011 Substance Use Topics Alcohol use: Yes Comment: 1 drink every 3-6 months. Drug use: No Objective Physical Exam Vitals and nursing note reviewed. Constitutional: General: She is not in acute distress. Appearance: Normal appearance. She is ill-appearing. HENT: Mouth/Throat: (more content not included)... [facility] [id number] 07-02-2024 [phone] Please see message a nd advise. Thanks! [facility] [id number] [phone] Naltrexone is sent t o the pharmacy Thank you [facility] [phone] Pt would like to try naltrexone. Pended. Thank you! [facility] [phone] Please let the pt kn ow stable mood is important. We can start naltrexone while the pt is on pristiq and when she finds a primary care doctor we can consider contrave. Safety is the mcclellan. Thank you [facility] [phone] Pt no longer has PCP . Please advise. Thank you! [facility] [phone] [id number] Contrave might inter act with pristiq Please ask the pt to contact the prescriber of pristiq to clarify if contrave is a good choice. Thank you [facility] [phone] Pt is now inquiring about Contrave. Please advise.Thanks! [facility] [phone] Please ask the pt to about naltrexone that can be used off label for weight loss Thank you [facility] [phone] Please see message a nd advise. Thanks! [facility] [phone] Safety is the most important. Please ask the pt to stop the medication. We can try metformin if the pt wants Thank you [facility] [phone] Dr Pierre please see message and advise. Thank you [facility] [phone] [id number] Please ask the pt to contact the doctor who is prescribing pristiq. It will be the correct way ot addressing the question. Thank you [facility] [phone] Please advise. [facility] Office Visiton 06-15-2024 Follow-up visit [id number] Helen Aparicio 1990 F Date Provider Department Center 06/15/2024 [id number] [facility] None Family History Problem [...] Grandfather Paternal Grandmother Maternal Grandfather Level of Service:90116 MO OFFICE/OUTPATIENT ESTABLISHED MOD MDM 30 MIN Reason for Visit and Comments: Weight Management [645] - Nsurg 11 [facility] Progress Noteon 06-15-2024 Progress Note HPI, PHYSICAL EXAMINATION & PLAN HPI: Patient here today for follow up for non-surgical weight loss management Weight trend since last visit: gain 27 lbs over 6 m stable weight regain after stopping ozempic This patient's excess weight is causing the following co-morbid conditions at this time:Other IR Physical Examination: Blood pressure 96/59, pulse 76, height 5' 2 (1.575 m), weight 169 lb 6.4 oz (76.8 kg). General: This patient is calm and [...] Current Diet This patient?s current diet is: 50-80% meal plan Her diet contains adequate amounts of protein, adequate amounts of healthy fats, adequate amounts of green, leafy vegetables, and adequate amounts of fruits. Her comfort foods include: none Current Activity Does not exercise Current Eating Behaviors This patients demonstrates the [...] the meal structure, composition and portion control Review meal structure, meal composition and portion control in details in order to restart the healthy lifestyle Will restart meal plan and exercise Will restart adipex Discuss side effects of adipex Good tolerance and result in the past Other IR Continue current management, continue weight loss program Stable Working with [facility] on her current symptoms [x] Protein goal of 1g protein per [...] anti-obesity medication. I spend a total of 30 minutes on the same day of the [...] was performed.Clinical documentation is updated and completed. [facility] Progress Note BARIATRIC CARE MGE R NON-SURGICAL WEIGHT LOSS MANAGEMENT PROGRAM ROOMING NOTE: FOLLOW UP VISIT Patient: Dari Aparicio Date of : 1990 Service Date: 06/15/2024 Patient History/Assessment Summary: The patient is a pleasant 34 y.o. year old female, who stands Height: 5' 2 (157.5 cm) tall with a weight of Weight: 169 lb 6.4 oz (76.8 kg) pounds, resulting in a BMI of Body mass index is 30.98 kg/m?. kg/m2. She is here for follow-up for non-surgical treatment of Over weight Patient has the following question(s): none Pre Program Weight Metrics (Epic) (Surgical Wt Loss Management- baseline) This Visit Non-Surgical Subsequent Eval Date: 06/15/24 Height: 5' 2 (157.5 cm) Weight: 169 lb 6.4 oz (76.8 kg) BMI: 30.98 Weight Change: 26.8 lbs Total Weight Change: lbs % EBWL: % Subsequent Body Fat %: 37.18 Body Fat % Change: 5.88 Follow Up Weight Metrics Last Three Weights Including Today's Weight: Wt Readings from Last 3 Encounters: 06/15/24 169 lb 6.4 oz (76.8 kg) 12/09/23 142 lb 9.6 oz (64.7 kg) 11/02/23 144 lb 9.6 oz (65.6 kg) Diabetes Do you currently have diabetes? [...] sheet comorbids) Falls Risk Assessment Patient does take medications which affect BP or mental [...] home O2 Completed by: Kiera Hinds MA [facility] Gastroenterology Visit Repor ton 05-25-2024 Gastroenterology Visit Report [facility] Gastroenterology [address] [place] [address] OFFICE VISIT Date of Service: 05/25/24 MR#: [id number] Acct: [id number] Name: DARI APARICIO Rep #: [id number] : 1990 Provider: CAROLYN Baltazar Age/Sex: 34/F [place] [facility] [place] Status: Signed Intake Vital Signs 01/31/24 15:05 03/30/24 07:43 Height 5 ft 1 in 5 ft 1 in Intake Visit Reasons: 3 M FU Chief Complaint: RUQ pain and n/v Allergies amoxicillin (From Augmentin) Adverse Reaction (Mild, Verified 04/02/24 09:21) Vomiting clavulanic acid (From Augmentin) Adverse Reaction (Mild, Verified 04/02/24 09:21) Vomiting naproxen Adverse Reaction (Verified 04/02/24 09:21) Other varenicline tartrate (From Chantix) Adverse Reaction (Verified 04/02/24 09:21) Other Medications ???Medication ???Instructions ???Recorded ???Confirmed ???Type multivitamin 1 tab PO DAILY 12/20/22 04/02/24 History semaglutide 0.25 mg or 0.5 mg (2 0.25 mg subcut Q7D weekly 12/20/22 04/02/24 History mg/3 mL) subcutaneous pen injector (Ozempic) biotin 1 mg capsule 1 mg PO DAILY 10/26/23 04/02/24 History cyclobenzaprine 7.5 mg tablet 7.5 mg PO QHS PRN muscle spasm #20 01/13/24 04/02/24 Rx tabs isoniazid 100 mg tablet 300 mg PO DAILY 01/13/24 04/02/24 History pyridoxine (vitamin B6) 100 mg 100 mg PO DAILY 01/13/24 04/02/24 History tablet desvenlafaxine succinate 50 mg 50 mg PO DAILY #90 tabs 03/01/24 04/02/24 Rx tablet,extended release 24 hr ondansetron 4 mg disintegrating 4 mg PO Q6H PRN nausea and 04/02/24 04/02/24 Rx tablet vomiting #90 tabs omeprazole 40 mg capsule,delayed 40 mg PO BID #60 caps 04/25/24 Rx release Have you fallen in the past year?: No Nurse's Note: OV 05.25.24 Pt here for f/u and reports no change in how she has been feeling. Reports a burning feeling in her throat all the time accompanied with extreme nausea. Reports constipation and diarrhea. Continues Zofran and omeprazole daily. Denies vomiting, and blood in stools. [facility] Medical History Anxiety Arthritis High cholesterol Former smoker Maxillary sinusitis Effusion, left knee Diabetes PTSD (post-traumatic stress disorder) Low iron Back pain Migraine headache History of IBS Sleep apnea Asthma Shortness of breath on exertion Leg cramps Hypertension Adopted ASCUS with positive high risk HPV Pelvic pain Hypersomnia Rectal bleeding Anxiety and depression Spontaneous HPV test positive Acute appendicitis GERD (gastroesophageal reflux disease) Irregular periods Obesity Scoliosis IBS (irritable bowel syndrome) Chronic back pain Preeclampsia Surgical History Status post tubal ligation Status post bilateral salpingectomy History of History of hip surgery H/O adenoidectomy delivery delivered S/P laparoscopic appendectomy ( 05/06/18) S/P right knee arthroscopy History of tonsillectomy H/O knee surgery Hx of breast reduction, elective Family History Mother Depression Aunt Breast cancer Multiple sclerosis Grandmother Diabetes Uncle Hyperlipemia Menieres disease Depression Grandfather Heart disease Myocardial infarction CVA (cerebral vascular accident) Sister Crohn's disease half sister Other Hypertension Social History household members: family and children housing: house current occupational status: unemployed Smoking Status: Former smoker how long ago did patient quit smokin alcohol intake: current alcohol intake frequency: holidays/special occasions only substance use type: does not use caffeine: No what type of physical activity do you participate in: none seatbelt use: always do you feel safe at home: Yes additional social history: Single HPI HPI Chief Complaint: RUQ pain and n/v Details: DARI APARICIO, is a 34 F who presents to the office today for f/u. BGI established 03.09.24 w/ complaints of IBS , nausea and heartburn. Pt on semaglutide for weight loss and isoniazid for latent TB. Symptoms worsened after induction of isoniazid. Biochemical work up 03.16.24; Hgb 11.7 L, IBD panel suggestive of Crohns, food allergies wnl, calprotectin wnl, elastase wnl, Ct abd/pelvis .10.13; 1. Bilateral nephrolithiasis. No convincing hydronephrosis or ureter stone. Multiple phleboliths in the pelvis. 2. Dominant follicle in the right ovary and slight intrapelvic fluid. 3. Appendectomy. 4. Moderate stool in the proximal half of the colon. No small bowel obstruction. GES; 05.11.24; normal 48 minutes EGD 03.28.24; - Z-line irreg (more content not included)... Normal [facility] Gastric Emptying Studyon Gastric Emptying Study [facility] Imaging Services [address] [place] [address] Gastric Emptying Study MR#: [id number] Acct: [id number] Name: DARI APARICIO Rep #: [id number] : 1990 F 34 From: Teddy Holbrook PCP: Care Physician,No Primary Status: REG CLI Study: Gastric Emptying Study Date of Exam: 05/11/24 Exam# [id number] Ordering Dr: Vidhya Anderson [id number] CLINICAL: 34-year-old female with history of chronic nausea. SEMI-SOLID PHASE 99m Tc SULFUR COLLOID GASTRIC EMPTYING STUDY COMPARISON: None available FINDINGS: The patient was administered 1.1 mCi of 99m Tc sulfur colloid mixed with oatmeal and consumed per os. Image acquisitions in the anterior-posterior projections were obtained for 60 minutes. There is prompt visualization of the stomach. There is no gastroesophageal reflux identified. The T ? linear fit was calculated to be 48.7 minutes, (Normal: 12-56 minutes). NM/Gastric Emptying Study IMPRESSION: 1. NORMAL 99m Tc sulfur colloid semi-solid phase (oatmeal) gastric emptying imaging examination. A. There is normal and preserved semi-solid phase gastric emptying compared to normal controls. (Nadira sutherland al, J Nucl Med Tech 38: 186, 2010). Electronically Signed: Teddy Eldridge DO at 13:15 EST , CC: PERLITA Anderson; No Primary Care Physician Patient Care Specialist: Signed Normal [facility] .Auto Diffon 05-04-2024 Basophil, Absolute 0.1 10 3/mcL Normal 0.0-0.2 [facility] Comment on above: Performed By: #### A WYATT WILKERSON, LIP, CBC, GFR, ADIFF, CMP #### [address] [address] Basophils/100 WBC (Bld) 1.1 % Normal 0.0-2.5 A [facility] Comment on above: Performed By: #### A WYATT WILKERSON, LIP, CBC, GFR, ADIFF, CMP #### [address] [address] Eosinophil, Absolute 0.0 10 3/mcL Normal 0.0-0.7 [facility] Comment on above: Performed By: #### A WYATT WILKERSON, LIP, CBC, GFR, ADIFF, CMP #### [address] [address] Eosinophils/100 WBC (Bld) 0.7 % Normal 0.0-7.0 [facility] Comment on above: Performed By: #### A WYATT WILKERSON, LIP, CBC, GFR, ADIFF, CMP #### [address] [address] Lymphocyte, Absolute 2.9 10 3/mcL Normal 0.9-4.3 [facility] Comment on above: Performed By: #### A WYATT WILKERSON, LIP, CBC, GFR, ADIFF, CMP #### [address] [address] Lymphocytes/100 WBC (Bld) 45.5 % High 20.0-40.0 [facility] Comment on above: Performed By: #### A WYATT WILKERSON, LIP, CBC, GFR, ADIFF, CMP #### [address] [address] Monocyte, Absolute 0.5 10 3/mcL Normal 0.1-1.4 [facility] Comment on above: Performed By: #### A WYATT WILKERSON, LIP, CBC, GFR, ADIFF, CMP #### [address] [address] Monocytes/100 WBC (Bld) 7.3 % Normal 2.0-13.0 [facility] Comment on above: Performed By: #### A WYATT WILKERSON, LIP, CBC, GFR, ADIFF, CMP #### [address] [address] Neutrophils/100 WBC (Bld) 45.4 % Low 50.0-75.0 [facility] Comment on above: Performed By: #### A WYATT WILKERSON, LIP, CBC, GFR, ADIFF, CMP #### [address] [address] .GFRon 05-04-2024 GFR 111 ml/min/1.73sqm Normal [facility] Comment on above: Result Comment: GFR Population mean for , Non- Americans Ages 20-29 = 116 mL/min/1.73 sq.m. Ages 30-39 = 107 mL/min/1.73 sq.m. Ages 40-49 = 99 mL/min/1.73 sq.m. Ages 50-59 = 93 mL/min/1.73 sq.m. Ages 60-69 = 85 mL/min/1.73 sq.m. Ages 70+ = 75 mL/min/1.73 sq.m. Chronic Kidney Disease: Less than 60 mL/min/1.73 square meters End Stage Renal Disease: Less than 15 mL/min/1.73 square meters Performed By: #### A WYATT WILKERSON, LIP, CBC, GFR, ADIFF, CMP #### [address] [address] GFR Non- 91 ml/min/1.73sqm Normal [facility] Comment on above: Result Comment: GFR Population mean for , Non- Americans Ages 20-29 = 116 mL/min/1.73 sq.m. Ages 30-39 = 107 mL/min/1.73 sq.m. Ages 40-49 = 99 mL/min/1.73 sq.m. Ages 50-59 = 93 mL/min/1.73 sq.m. Ages 60-69 = 85 mL/min/1.73 sq.m. Ages 70+ = 75 mL/min/1.73 sq.m. Chronic Kidney Disease: Less than 60 mL/min/1.73 square meters End Stage Renal Disease: Less than 15 mL/min/1.73 square meters Performed By: #### A WYATT WILKERSON, LIP, CBC, GFR, ADIFF, CMP #### [address] [address] .MDWon 05-04-2024 Monocyte Distribution Width 18.18 Normal 0.00-20.00 [facility] Comment on above: Result Comment: For ED adult patients suspected of sepsis, MDW<=20.0 does not rule out sepsis or risk of sepsis Performed By: #### A WYATT WILKERSON, LIP, CBC, GFR, ADIFF, CMP #### [place] [address] .NEUABSon 05-04-2024 Neutrophil, Absolute 2.9 10 3/mcL Normal 2.3-8.1 [facility] Comment on above: Performed By: #### A WYATT WILKERSON, LIP, CBC, GFR, ADIFF, CMP #### [place] [address] CBCon 05-04-2024 Erythrocyte distribution width (RBC) [Ratio] 12.9 % Normal 11.5-15.5 [facility] Comment on above: Performed By: #### A WYATT WILKERSON, LIP, CBC, GFR, ADIFF, CMP #### [place] [address] Hematocrit (Bld) [Volume fraction] 35.1 % Normal 34.0-46.0 [facility] Comment on above: Performed By: #### A WYATT WILKERSON, LIP, CBC, GFR, ADIFF, CMP #### [place] [address] Hgb 12.1 G/dL Normal 12.0-16.0 [facility] Comment on above: Performed By: #### A WYATT WILKERSON, LIP, CBC, GFR, ADIFF, CMP #### [place] [address] MCH (RBC) [Entitic mass] 29.9 pg Normal 27.0-33.0 [facility] Comment on above: Performed By: #### A WYATT WILKERSON, LIP, CBC, GFR, ADIFF, CMP #### [place] [address] MCHC 34.5 G/dL Normal 32.0-36.0 [facility] Comment on above: Performed By: #### A WYATT WILKERSON, LIP, CBC, GFR, ADIFF, CMP #### [place] [address] MCV (RBC) [Entitic vol] 86.6 fL Normal 80.0-99.0 [facility] Comment on above: Performed By: #### A WYATT WILKERSON, LIP, CBC, GFR, ADIFF, CMP #### [address] [address] Platelet 389 10 3/mcL Normal 150-450 [facility] Comment on above: Performed By: #### A WYATT WILKERSON, LIP, CBC, GFR, ADIFF, CMP #### [address] [address] Platelet mean volume (Bld) [Entitic vol] 6.6 fL Normal 6.6-10.5 [facility] Comment on above: Performed By: #### A WYATT WILKERSON, THOMAS, CBC, GFR, ADIFF, CMP #### [address] [address] RBC 4.05 10 6/mcL Low 4.10-5.30 [facility] Comment on above: Performed By: #### A WYATT WILKERSON, THOMAS, CBC, GFR, ADIFF, CMP #### [address] [address] WBC 6.5 10 3/mcL Normal 4.5-10.8 [facility] Comment on above: Performed By: #### A WYATT WILKERSON, THOMAS, CBC, GFR, ADIFF, CMP #### [address] [address] CMPon 05-04-2024 Albumin Level 4.2 G/dL Normal 3.5-5.0 [facility] Comment on above: Performed By: #### A WYATT WILKERSON, LIP, CBC, GFR, ADIFF, CMP #### [address] [address] Albumin/Globulin [Mass ratio] 1.4 {ratio} Normal 1.1-2.5 [facility] Comment on above: Performed By: #### A WYATT WILKERSON, LIP, CBC, GFR, ADIFF, CMP #### [address] [address] ALP [Catalytic activity/Vol] 65 U/L Normal 40-135 [facility] Comment on above: Performed By: #### A WYATT WILKERSON, LIP, CBC, GFR, ADIFF, CMP #### [address] [address] ALT [Catalytic activity/Vol] 39 U/L Normal 14-59 [facility] Comment on above: Performed By: #### A WYATT WILKERSON, LIP, CBC, GFR, ADIFF, CMP #### [address] [address] AST [Catalytic activity/Vol] 20 U/L Normal 10-40 [facility] Comment on above: Performed By: #### A WYATT WILKERSON, LIP, CBC, GFR, ADIFF, CMP #### [address] [address] Bili Total 0.2 mg/dL Normal 0.2-1.0 [facility] Comment on above: Result Comment: Use of this assay is not recommended for patients undergoing treatment with eltrombopag due to the potential for falsely elevated results. Performed By: #### A WYATT WILKERSON, LIP, CBC, GFR, ADIFF, CMP #### [address] [address] BUN/Creatinine Ratio 21 ratio Normal 7-27 [facility] Comment on above: Performed By: #### A WYATT WILKERSON, LIP, CBC, GFR, ADIFF, CMP #### [address] [address] Calcium [Mass/Vol] 9.5 mg/dL Normal 8.4-10.2 [facility] Comment on above: Performed By: #### A WYATT WILKERSON, LIP, CBC, GFR, ADIFF, CMP #### [address] [address] Chloride [Moles/Vol] 101 mmol/L Normal 98-107 [facility] Comment on above: Performed By: #### A WYATT WILKERSON, LIP, CBC, GFR, ADIFF, CMP #### [address] [address] CO2 [Moles/Vol] 33 mmol/L High 22-29 [facility] Comment on above: Performed By: #### A WYATT WILKERSON, LIP, CBC, GFR, ADIFF, CMP #### [place] [address] Creatinine [Mass/Vol] 0.73 mg/dL Normal 0.55-1.02 [facility] Comment on above: Result Comment: Test ing performed on Siemens Dimension EXL analyzer using a modified kinetic Kamilla technique. Performed By: #### A WYATT WILKERSON, LIP, CBC, GFR, ADIFF, CMP #### [place] [address] Electrolyte Balance 6.0 mEq/L Normal 4.0-15.0 [facility] Comment on above: Performed By: #### A WYATT WILKERSON, LIP, CBC, GFR, ADIFF, CMP #### [place] [address] Globulin 3.1 G/dL Normal [facility] Comment on above: Performed By: #### A WYATT WILKERSON, LIP, CBC, GFR, ADIFF, CMP #### [place] [address] Glucose [Mass/Vol] 90 mg/dL Normal 70-105 [facility] Comment on above: Performed By: #### A WYATT WILKERSON, LIP, CBC, GFR, ADIFF, CMP #### [place] [address] Potassium [Moles/Vol] 4.4 mmol/L Normal 3.5-5.1 [facility] Comment on above: Performed By: #### A WYATT WILKERSON, LIP, CBC, GFR, ADIFF, CMP #### [place] [address] Sodium [Moles/Vol] 140 mmol/L Normal 136-145 [facility] Comment on above: Performed By: #### A WYATT WILKERSON, LIP, CBC, GFR, ADIFF, CMP #### [place] [id number] Total Protein 7.3 G/dL Normal 6.4-8.2 [facility] Comment on above: Performed By: #### A WYATT WILKERSON, LIP, CBC, GFR, ADIFF, CMP #### [facility] [address] [place], [place] [address] Urea nitrogen [Mass/Vol] 15 mg/dL Normal 7-18 [facility] Comment on above: Performed By: #### A WYATT WILKERSON, LIP, CBC, GFR, ADIFF, CMP #### [facility] [address] [place], [place] [address] CT ABD/PELVIS W/ IV CONTRAST ONLYon 05-04-2024 CT ABD/PELVIS W/ IV CONTRAST ONLY ORIGINAL EXAMINATION: CT OF THE ABDOMEN AND PELVIS WITH VEVQZCFN77/13/2024 8:[address] ABDOMEN/PELVIS WITH CONTRAST TECHNIQUE: CT of the abdomen and pelvis was performed with the administration of intravenous contrast. Multiplanar reformatted images are provided for review. Automated exposure control, iterative reconstruction, and/or weight based adjustment of the mA/kV was utilized to reduce the radiation dose to as low as reasonably achievable. COMPARISON: None available HISTORY: ORDERING SYSTEM PROVIDED HISTORY: Reason for Exam: states lower back pain that she thinks that it may be from her kidney stones that she was dx w a month ago at [facility] pain FINDINGS: The size, density, and morphology of the liver, spleen, adrenals, kidneys, pancreas and unopacified loops of bowel are unremarkable. Nonobstructive bilateral nephrolithiasis. The opacified aorta demonstrates normal size and morphology without aneurysmal dilation or dissection. There are no enlarged lymph nodes by pathologic size criteria. There is no free fluid within the pelvis. The bladder and pelvic organs have an unremarkable CT appearance. The osseous structures are without gross lytic or sclerotic lesion. The lung bases are clear. IMPRESSION: Nonobstructive bilateral nephrolithiasis. Interpreted by: Lobito Alejandro MD Preliminary Report By: Lobito Alejandro MD Electronically signed By Lobito Alejandro MD Dictated Date: 05/04/2024 8:27:35 PM Prelim Date: 05/04/2024 8:37:31 PM Sign Date: 05/04/2024 8:37:31 PM Ordering Provider: CONSTANTINO Silva [facility] By: SYSTEM SYSTEM on 05-04-2024 Albumin BCP dye [Mass/Vol] 4.2 G/dL Normal 3.5 - 5.0 G/dL AO ADM SS Albumin/Globulin [Mass ratio] 1.4 {ratio} Normal 1.1 - 2.5 ratio AO ADM SS ALP [Catalytic activity/Vol] 65 U/L Normal 40 - 135 U/L AO ADM SS ALT With P-5'-P [Catalytic activity/Vol] 39 U/L Normal 14 - 59 U/L AO ADM SS AST With P-5'-P [Catalytic activity/Vol] 20 U/L Normal 10 - 40 U/L AO ADM SS Basophils (Bld) [#/Vol] 0.1 103/mcL Normal 0.0 - 0.2 10^3/mcL AO Workflow SS Basophils/100 WBC (Bld) 1.1 % Normal 0.0 - 2.5 % AO Workflow SS Bilirubin [Mass/Vol] 0.2 mg/dL Normal 0.2 - 1 .0 mg/dL AO ADM SS Comment on above: Interpretive Data: U se of this assay is not recommended for patients undergoing treatment with eltrombopag due to the potential for falsely elevated results. Calcium [Mass/Vol] 9.5 mg/dL Normal 8.4 - 10. 2 mg/dL AO ADM SS Chloride [Moles/Vol] 101 mmol/L Normal 98 - 10 7 mmol/L AO ADM SS CO2 [Moles/Vol] 33 mmol/L High 22 - 29 mmol/L AO ADM SS Creatinine [Mass/Vol] 0.73 mg/dL Normal 0.55 - 1.02 mg/dL AO ADM SS Comment on above: Interpretive Data: T esting performed on Siemens Dimension EXL analyzer using a modified kinetic Kamilla technique. Electrolyte Balance 6.0 mEq/L Normal 4.0 - 15 .0 mEq/L AO ADM SS Eosinophil, Absolute 0.0 103/mcL Normal 0.0 - 0 .7 10^3/mcL AO Workflow SS Eosinophils/100 WBC (Bld) 0.7 % Normal 0.0 - 7.0 % AO Workflow SS Erythrocyte distribution width (RBC) [Ratio] 12.9 % Normal 11.5 - 15.5 % AO Workflow SS GFR/1.73 sq M.predicted among blacks MDRD (S/P/Bld) [Vol rate/Area] 111 ml/min/1.73sqm Invalid Interpretation Code AO Chemistry S Comment on above: Interpretive Data: GFR Population mean for , Non- Americans Ages 20-29 = 116 mL/min/1.73 sq.m. Ages 30-39 = 107 mL/min/1.73 sq.m. Ages 40-49 = 99 mL/min/1.73 sq.m. Ages 50-59 = 93 mL/min/1.73 sq.m. Ages 60-69 = 85 mL/min/1.73 sq.m. Ages 70+ = 75 mL/min/1.73 sq.m. Chronic Kidney Disease: Less than 60 mL/min/1.73 square meters End Stage Renal Disease: Less than 15 mL/min/1.73 square meters GFR/1.73 sq M.predicted among non-blacks MDRD (S/P/Bld) [Vol rate/Area] 91 ml/min/1.73sqm Invalid Interpretation Code AO Chemistry S Comment on above: Interpretive Data: GFR Population mean for , Non- Americans Ages 20-29 = 116 mL/min/1.73 sq.m. Ages 30-39 = 107 mL/min/1.73 sq.m. Ages 40-49 = 99 mL/min/1.73 sq.m. Ages 50-59 = 93 mL/min/1.73 sq.m. Ages 60-69 = 85 mL/min/1.73 sq.m. Ages 70+ = 75 mL/min/1.73 sq.m. Chronic Kidney Disease: Less than 60 mL/min/1.73 square meters End Stage Renal Disease: Less than 15 mL/min/1.73 square meters Globulin 3.1 G/dL Invalid Interpretation Code AO ADM SS Glucose [Mass/Vol] 90 mg/dL Normal 70 - 105 mg/dL AO ADM SS Hematocrit (Bld) [Volume fraction] 35.1 % Normal 34.0 - 46.0 % AO Workflow SS Hemoglobin (Bld) [Mass/Vol] 12.1 G/dL Normal 12.0 - 16.0 G/dL AO Workflow SS Lipase [Catalytic activity/Vol] 57 U/L Normal 16 - 77 U/L AO ADM SS Lymphocytes (Bld) [#/Vol] 2.9 103/mcL Normal 0.9 - 4.3 10^3/mcL AO Workflow SS Lymphocytes/100 WBC (Bld) 45.5 % High 20.0 - 40.0 % AO Workflow SS MCH (RBC) [Entitic mass] 29.9 pg Normal 27.0 - 33.0 pg AO Workflow SS MCHC 34.5 G/dL Normal 32.0 - 36.0 G/dL AO Workflow SS MCV (RBC) [Entitic vol] 86.6 fL Normal 80.0 - 99.0 fL AO Workflow SS Monocyte distribution width Auto (Bld) [Entitic vol] 18.18 1 Normal 0.00 - 20.00 AO Workflow SS Comment on above: Result Comment: For ED adult patients suspected of sepsis, MDW<=20.0 does not rule out sepsis or risk of sepsis Monocytes (Bld) [#/Vol] 0.5 103/mcL Normal 0.1 - 1.4 10^3/mcL AO Workflow SS Monocytes/100 WBC (Bld) 7.3 % Normal 2.0 - 13.0 % AO Workflow SS Neutrophils (Bld) [#/Vol] 2.9 103/mcL Normal 2.3 - 8.1 10^3/mcL AO Workflow SS Neutrophils/100 WBC (Bld) 45.4 % Low 50.0 - 75.0 % AO Workflow SS Platelet mean volume (Bld) [Entitic vol] 6.6 fL Normal 6.6 - 10.5 fL AO Workflow SS Platelets (Bld) [#/Vol] 389 103/mcL Normal 150 - 450 10^3/mcL AO Workflow SS Potassium [Moles/Vol] 4.4 mmol/L Normal 3.5 - 5.1 mmol/L AO ADM SS Protein [Mass/Vol] 7.3 G/dL Normal 6.4 - 8.2 G/dL AO ADM SS RBC (Bld) [#/Vol] 4.05 106/mcL Low 4.10 - 5.3 0 10^6/mcL AO Workflow SS Sodium [Moles/Vol] 140 mmol/L Normal 136 - 145 mmol/L AO ADM SS Urea nitrogen [Mass/Vol] 15 mg/dL Normal 7 - 18 mg/dL AO ADM SS Urea nitrogen/Creatinine [Mass ratio] 21 ratio Normal 7 - 27 ratio AO ADM SS WBC (Bld) [#/Vol] 6.5 103/mcL Normal 4.5 - 10.8 10^3/mcL AO Workflow SS LABORATORYOrdered By: Oskar soriano on 05-04-2024 Appearance (U) Clear (05/04/24 7:41 PM) Normal Clear AO Auto Urine SS Bilirubin Ql (U) Negative (05/04/24 7:41 PM) Normal Negative AO Auto Urine SS Color (U) Yellow (05/04/24 7:41 PM) Normal AO Auto Urine SS Glucose Test strip (U) [Mass/Vol] Negative Normal Negative AO Auto Urine SS HCG ( test) Ql Negative (05/04/24 7:41 PM) Normal AO Manual Urine SS Hemoglobin Auto test strip (U) [Mass/Vol] Negative (05/04/24 7:41 PM) Normal Negative AO Auto Urine SS Ketones Ql (U) Negative Normal Negative AO Auto Urine SS test (u) int Not detected Invalid Interpretation Code AO Manual Urine SS UA Leuk Est Negative (05/04/24 7:41 PM) Normal Negative AO Auto Urine SS UA Nitrite Negative (05/04/24 7:41 PM) Normal Negative AO Auto Urine SS UA pH 7.0 (05/04/24 7:41 PM) Normal 5.0 - 8.0 AO Auto Urine SS UA Protein Negative Normal Negative AO Auto Urine SS UA Spec Grav 1.020 (05/04/24 7:41 PM) Normal 1.015-1.025 AO Auto Urine SS UA Specimen Type Not Given (05/04/24 7:41 PM) Normal AO Auto Urine SS UA Urobilinogen 0.2 E.U./dL Normal 0.2-1.0 AO Auto Urine SS LIPon 05-04-2024 Lipase Level 57 U/L Normal 16-77 [facility] Comment on above: Performed By: #### A WYATT WILKERSON, LIP, CBC, GFR, ADIFF, CMP #### [id number] [place], [place] [address] PREGUon 05-04-2024 HCG ( test) Ql (U) Negative Normal [facility] Comment on above: Performed By: #### U A, PREGU #### [facility] [address] [place], [place] [address] test (u) int Not detected Invalid Interpretation Code [facility] Comment on above: Performed By: #### U A, PREGU #### [place] [address] UAon 05-04-2024 Color (U) Yellow Normal [facility] Comment on above: Performed By: #### U A, PREGU #### [address] [address] Glucose (U) [Mass/Vol] Negative Normal Negative [facility] Comment on above: Performed By: #### U A, PREGU #### [address] [address] Ketones Ql (U) Negative Normal Negative [facility] Comment on above: Performed By: #### U A, PREGU #### [place] [address] UA Appear Clear Normal Clear [facility] Comment on above: Performed By: #### U A, PREGU #### [place] [address] UA Blood Negative Normal Negative [facility] Comment on above: Performed By: #### U A, PREGU #### [place] [address] UA Leuk Est Negative Normal Negative [facility] Comment on above: Performed By: #### U A, PREGU #### [place] [address] UA Nitrite Negative Normal Negative [facility] Comment on above: Performed By: #### U A, PREGU #### [address] [address] UA pH 7.0 Normal 5.0 - 8.0 [facility] Comment on above: Performed By: #### U A, PREGU #### [place] [address] UA Protein Negative Normal Negative [facility] Comment on above: Performed By: #### U A, PREGU #### [address] [address] UA Spec Grav 1.020 Normal 1.015-1.025 [facility] Comment on above: Performed By: #### U A, PREGU #### [place] [address] UA Specimen Type Not Given Normal [facility] Comment on above: Performed By: #### U A, PREGU #### [place] [address] UA Urobilinogen 0.2 E.U./dL Normal 0.2-1.0 [facility] Comment on above: Performed By: #### U A, PREGU #### [place] [address] Urobilinogen (U) [Mass/Vol] Negative Normal Negative [facility] Comment on above: Performed By: #### U A, PREGU #### [place] [address] [id number] 04-04-2024 [id number] Can you cancel appt for Tuesday? Pt will call when she feels the need to come back. Thanks! Normal [facility] [phone] FY please see message. Normal S [facility] Gastroenterology Visit Repor ton 04-02-2024 Gastroenterology Visit Report [facility] Gastroenterology [address] [place] [address] OFFICE VISIT Date of Service: 04/02/24 MR#: [id number] Acct: [id number] Name: DARI APARICIO Rep #: [id number] : 1990 Provider: PERLITA castellanos Age/Sex: 33/F [place] [facility] [place] Status: Signed Intake Vital Signs 03/28/24 06:51 03/30/24 07:43 Height 5 ft 1 in 5 ft 1 in Intake Visit Reasons: GO OVER TEST RESULTS Chief Complaint: Discuss test results Allergies amoxicillin (From Augmentin) Adverse Reaction (Mild, Verified 04/02/24 09:21) Vomiting clavulanic acid (From Augmentin) Adverse Reaction (Mild, Verified 04/02/24 09:21) Vomiting naproxen Adverse Reaction (Verified 04/02/24 09:21) Other varenicline tartrate (From Chantix) Adverse Reaction (Verified 04/02/24 09:21) Other Medications ???Medication ???Instructions ???Recorded ???Confirmed ???Type multivitamin 1 tab PO DAILY 12/20/22 04/02/24 History semaglutide 0.25 mg or 0.5 mg (2 0.25 mg subcut Q7D weekly 12/20/22 04/02/24 History mg/3 mL) subcutaneous pen injector (Ozempic) biotin 1 mg capsule 1 mg PO DAILY 10/26/23 04/02/24 History cyclobenzaprine 7.5 mg tablet 7.5 mg PO QHS PRN muscle spasm #20 01/13/24 04/02/24 Rx tabs isoniazid 100 mg tablet 300 mg PO DAILY 01/13/24 04/02/24 History pyridoxine (vitamin B6) 100 mg 100 mg PO DAILY 01/13/24 04/02/24 History tablet desvenlafaxine succinate 50 mg 50 mg PO DAILY #90 tabs 03/01/24 04/02/24 Rx tablet,extended release 24 hr famotidine 40 mg tablet 40 mg PO QHS #30 tabs 03/09/24 04/02/24 Rx pantoprazole 40 mg tablet,delayed 40 mg PO BID #60 tabs 03/09/24 04/02/24 Rx release ondansetron 4 mg disintegrating 4 mg PO Q6H PRN nausea and 04/02/24 04/02/24 Rx tablet vomiting #90 tabs sucralfate 100 mg/mL oral 10 ml PO QAC #1,000 mL 04/02/24 04/02/24 Rx suspension PFSH Medical History Anxiety Arthritis High cholesterol Former smoker Maxillary sinusitis Effusion, left knee Diabetes PTSD (post-traumatic stress disorder) Low iron Back pain Migraine headache History of IBS Sleep apnea Asthma Shortness of breath on exertion Leg cramps Hypertension Adopted ASCUS with positive high risk HPV Pelvic pain Hypersomnia Rectal bleeding Anxiety and depression Spontaneous HPV test positive Acute appendicitis GERD (gastroesophageal reflux disease) Irregular periods Obesity Scoliosis IBS (irritable bowel syndrome) Chronic back pain Preeclampsia Surgical History Status post tubal ligation Status post bilateral salpingectomy History of History of hip surgery H/O adenoidectomy delivery delivered S/P laparoscopic appendectomy ( 05/06/18) S/P right knee arthroscopy History of tonsillectomy H/O knee surgery Hx of breast reduction, elective Family History Mother Depression Aunt Breast cancer Multiple sclerosis Grandmother Diabetes Uncle Hyperlipemia Menieres disease Depression Grandfather Heart disease Myocardial infarction CVA (cerebral vascular accident) Sister Crohn's disease half sister Other Hypertension Social History household members: family and children housing: house current occupational status: unemployed Smoking Status: Former smoker how long ago did patient quit smokin alcohol intake: current alcohol intake frequency: holidays/special occasions only substance use type: does not use caffeine: No what type of physical activity do you participate in: none seatbelt use: always do you feel safe at home: Yes additional social history: Single HPI HPI Chief Complaint: Discuss test results Details: DARI APARICIO, is a 33 F who presents to the office today for FU to review all test results. EGD showed reduced contractility to CO2 insufflation which prompted a GET order. Pathology reports pre- cancerous changes to lower esophageal tissue. She reports having been unable to take any of the medications prescribed at her prior office visit to control stomach acid due to extreme abdominal pain, burning, and severe nausea. She also reports having to stop her isoniazid for her latent TB diagnosis several weeks ago due to the nausea and abdominal pain. Conveyed her antibody presence for Crohn's, but negative inflammatory markers in her blood and stool studies. ROS Const Constitutional: No chills or fever(s) Eyes Eyes: No blurry vision ENT ENT: No abnormal hearing or difficulty swallowing Resp Respiratory: Positive for cough Cardio Cardiology: No chest pain at rest, chest pain with ex (more content not included)... [facility] 36on 03-30-2024 36 Pt notified that results have been received and NK will have discussion about them on 04-06 [facility] 36 Please let the pt kn ow We have her CT result/EGD and we will discuss tania during her upcoming yaya on 04/06. Thank you [facility] 36 Received reports fro [facility]. Scanned in media mgr. Please advise. [facility] 36 LVM at [facility] Medical records. Requesting recent CT scan with contrast and EGD for review. Left phone and fax number. Normal [facility] CNOVon 03-30-2024 CNOV Office Visit (UCWSTR ) MARKUSDARI ([id number]) 1990 F Date Time Provider Department 03/30/24 8:30 AM DARI WHITE [facility] During your visit today, we recorded the following information about you: Temperature Pulse Respiration Blood pressure 98.1 degrees 116/minute 16/minute 109/76 Weight 68.5 kg Dari White APRN.HAND CLERICAL VERIFIER 03/30/2024 9:48 AM Signed This note was created using Vidaaoriter. Subjective Daribrit Aparicio is a 33 year old female. 33 year old female with PMH ashtma, anxiety and depression presents for illness. Acute onset one week ago + cough +productive +sinus pressure +nasal congestion +rhinorrhea ' thick and green Cough keeping up at night Denies tobacco usage Denies using homeopathic or OTC I think it is a sinus infection and my mom thinks it is pneumonia States she does not have a current albuterol inhaler despite her diagnosis of asthma. The history is provided by the patient. No professor of languages was used. Cough This is a new problem. The current episode started more than 1 week ago. The problem occurs constantly. The problem has been gradually worsening. Cough characteristics: productive and non productive. There has been no fever. Associated symptoms include ear congestion, headaches and rhinorrhea. Pertinent negatives include no chest pain, no chills, no sweats, no weight loss, no ear pain, no sore throat, no myalgias, no shortness of breath, no wheezing and no eye redness. She has tried nothing for the symptoms. The treatment provided no relief. She is not a smoker. Her past medical history is significant for asthma. Her past medical history does not include bronchitis, pneumonia, bronchiectasis, COPD or emphysema. PAST MEDICAL HISTORY Diagnosis Date Anxiety Asthma [...] DX W/COLLJ SPEC WHEN PFRMD 01/07/2016 Colonoscopy ESOPHAGOGASTRODUODENOSC OPY TRANSORAL DIAGNOSTIC 10/30/14 EGD PAST SURGICAL HISTORY OF 08/26 pelvic exam under anesth./ PAST SURGICAL HISTORY OF 2013 dental extractions REDUCTION OF LARGE BREAST 03/28 TONSILLECTOMY HX tonsils and adnoids removed ALLERGIES Mite Extract, Chantix [Varenicline], and Naproxen MEDICATIONS aluminum chloride (DRYSOL) 20 % external solution Apply to clean areas at night semaglutide (OZEMPIC) 2 mg/dose (8 mg/3 mL) pen injector Inject 2 mg subcutaneously one time a week. Clindamycin Phosphate (CLEOCIN T) 1 % lotion Apply to affected area in the morning tretinoin (RETIN-A) 0.05 % cream Apply a pea size amount to the area at night as tolerated desvenlafaxine ER (PRISTIQ) 25 mg 24 hr tablet Take 25 mg by mouth once daily. spironolactone (ALDACTONE) 50 mg tablet Take one pill twice daily (Patient not taking: Reported on 03/30/2024) spironolactone (ALDACTONE) 50 mg tablet Take 1 tablet by mouth once daily. (Patient not taking: Reported on 03/30/2024) ARIPiprazole (ABILIFY) 5 mg tablet Take 5 mg by mouth. (Patient not taking: Reported on 06/14/2023) phentermine HCl (ADIPEX-P ORAL) Take by mouth. (Patient not taking: Reported on 06/14/2023) Uqxxccuozhxof-Be-Aagh-M inerals (MULTIPLE VITAMIN, WOMENS) tab Take 1 tablet [...] Maternal Grandfather Arthritis Maternal Grandfather None Father (more content not included)... Normal [facility] XR CHEST 2V FRONTAL/LATon XR CHEST 2V FRONTAL/LAT * * *Final Repor t* * * DATE OF EXAM: Mar 30 2024 9:29AM WOX 5291 - XR CHEST 2V FRONTAL/LAT / PROCEDURE REASON: Acute cough * * * * Physician Interpretation * * * * EXAMINATION: CHEST RADIOGRAPH (2 VIEW FRONTAL and LATERAL) PATIENT/TECHNOLOGIST PROVIDED HISTORY: cough and congestion for 5 days CLINICAL HISTORY: 33 years old Female with Acute cough MQ: XC2_6 EXAM DATE/TIME: 03/30/2024 9:29 AM COMPARISON: Chest radiograph(s) dated 04/19/2011 RESULT: Lines, tubes, and devices: None. Lungs and pleura: No consolidation. No pleural effusion. No pneumothorax. Cardiomediastinal silhouette: Normal cardiomediastinal silhouette. Bones and soft tissues: Unremarkable. IMPRESSION: No acute radiographic abnormality. Patient Care Specialist: RIANA Transcribe Date/Time: Mar 30 2024 9:30A Dictated by : MYRA LOVELL DO This examination was interpreted and the report reviewed and electronically signed by: MYRA LOVELL DO on Mar 30 2024 9:31AM EST [id number] Normal [facility] XR Chest PA and Lateralon IMPRESSION: No acute radiographic abnormality. Patient Care Specialist: RIANA Transcribe Date/Time: Mar 30 2024 9:30A Dictated by : MYRA LOVELL DO This examination was interpreted and the report reviewed and electronically signed by: MYRA LOVELL DO on Mar 30 2024 9:31AM EST DIVISION OF RADIOLOGY * * *Final Report* * * DATE OF EXAM: Mar 30 2024 9:29AM WOX 5291 - XR CHEST 2V FRONTAL/LAT / PROCEDURE REASON: Acute cough * * * * Physician Interpretation * * * * EXAMINATION: CHEST RADIOGRAPH (2 VIEW FRONTAL & LATERAL) PATIENT/TECHNOLOGIST PROVIDED HISTORY: cough and congestion for 5 days CLINICAL HISTORY: 33 years old Female with Acute cough MQ: XC2_6 EXAM DATE/TIME: 03/30/2024 9:29 AM COMPARISON: Chest radiograph(s) dated 04/19/2011 RESULT: Lines, tubes, and devices: None. Lungs and pleura: No consolidation. No pleural effusion. No pneumothorax. Cardiomediastinal silhouette: Normal cardiomediastinal silhouette. Bones and soft tissues: Unremarkable. DIVISION OF RADIOLOGY Provider, [facility] - 03/30/2024 * * *Final Report* * * DATE OF EXAM: Mar 30 2024 9:29AM WOX 5291 - XR CHEST 2V FRONTAL/LAT / PROCEDURE REASON: Acute cough * * * * Physician Interpretation * * * * EXAMINATION: CHEST RADIOGRAPH (2 VIEW FRONTAL & LATERAL) PATIENT/TECHNOLOGIST PROVIDED HISTORY: cough and congestion for 5 days CLINICAL HISTORY: 33 years old Female with Acute cough MQ: XC2_6 EXAM DATE/TIME: 03/30/2024 9:29 AM COMPARISON: Chest radiograph(s) dated 04/19/2011 RESULT: Lines, tubes, and devices: None. Lungs and pleura: No consolidation. No pleural effusion. No pneumothorax. Cardiomediastinal silhouette: Normal cardiomediastinal silhouette. Bones and soft tissues: Unremarkable. IMPRESSION IMPRESSION: No acute radiographic abnormality. Patient Care Specialist: PSCB Transcribe Date/Time: Mar 30 2024 9:30A Dictated by : MYRA LOVELL DO This examination was interpreted and the report reviewed and electronically signed by: MYRA LOVELL DO on Mar 30 2024 9:31AM EST [facility] Radiology Study observation (narrative) [facility] XR Chest PA and LateralOrder ed By: Ccf Provider on 03-30-2024 [facility] [id number] 03-29-2024 [id number] LVM to contact NK office through [employer]. [facility] 36on 03-29-2024 36 PATIENT CALLED SAID SHE NEEDED TO SPEAK TO DR PIERRE'S OFFICE WITH QUESTIONS ABOUT MEDICATIONS / PATIENT DID NOT WANT TO COMMUNICATE THROUGH [employer] [facility] EGD Reporton 03-28-2024 EGD Report [facility] Medical Records Department [address] [place] [address] EGD Report MR#: [id number] Acct: [id number] Name: DARI APARICIO Rep #: [id number] : 1990 33 From: Bo Simms DO PCP: PERLITA Bruno Status:REG IDC Patient Name: Dari Aparicio Procedure Date: 03/28/2024 7:29 AM Date of : 1990 Age: 33 Procedure: Upper GI endoscopy Indications: Functional Dyspepsia, Failure to respond to medical treatment Providers: Bo Simms DO Medicines: Monitored Anesthesia Care Patient Profile: This is a 33 year old female. Refer to note in patient chart for documentation of history and physical. Patient has symptoms of chronic abdominal distention, chronic nausea and chronic vomiting. Complications: No immediate complications. Procedure: Pre-Anesthesia Assessment: - Prior to the procedure, a History and Physical was performed, and patient medications and allergies were reviewed. The patient is competent. The risks and benefits of the procedure and the sedation options and risks were discussed with the patient. All questions were answered and informed consent was obtained. Patient identification and proposed procedure were verified by the physician in the pre-procedure area. Mental Status Examination: alert and oriented. Airway Examination: normal oropharyngeal airway and neck mobility. Respiratory Examination: clear to auscultation. CV Examination: normal. Prophylactic Antibiotics: The patient does not require prophylactic antibiotics. Prior Anticoagulants: The patient has taken no anticoagulant or antiplatelet agents except for NSAID medication. ASA Grade Assessment: II - A patient with mild systemic disease. After reviewing the risks and benefits, the patient was deemed in satisfactory condition to undergo the procedure. The anesthesia plan was to use monitored anesthesia care (MAC). Immediately prior to administration of medications, the patient was re-assessed for adequacy to receive sedatives. The heart rate, respiratory rate, oxygen saturations, blood pressure, adequacy of pulmonary ventilation, and response to care were monitored throughout the procedure. The physical status of the patient was re-assessed after the procedure. After obtaining informed consent, the endoscope was passed under direct vision. Throughout the procedure, the patient's blood pressure, pulse, and oxygen saturations were monitored continuously. The gastroscope was introduced through the mouth, and advanced to the second part of duodenum. The upper GI endoscopy was accomplished without difficulty. The patient tolerated the procedure well. Scope In: 7:43:19 AM Scope Out: 7:46:32 AM Total Procedure Duration Time 0 hours 3 minutes 13 seconds Findings: The Z-line was irregular and was found 40 cm from the incisors. Biopsies were taken with a cold forceps for histology. Verification of patient identification for the specimen was done. Estimated blood loss was minimal. No gross lesions were noted in the entire examined stomach. However the stomach did not appear to contract very well when CO2 was used to insufflate the stomach. No gross lesions were noted in the second portion of the duodenum. Impression: - Z-line irregular, 40 cm from the incisors. Biopsied. - No gross lesions in the entire stomach. Decreased contractility of the stomach. - No gross lesions in the second portion of the duodenum. Recommendation: - Discharge patient to home. - Resume previous diet. - Continue present medications. - Await pathology results. - Gastric emptying study Procedure Code(s): --- Professional --- 38613, Esophagogastroduodenosc opy, flexible, transoral; with biopsy, single or multiple CPT copyright 2021 [employer]. All rights reserved. The codes documented in this report are preliminary and upon auto inspection specialist review may be revised to meet current compliance requirements. Bo Simms DO 03/28/2024 7:51:24 AM This report has been signed electronically. Number of Addenda: 0 Note Initiated On: 03/28/2024 7:29 AM 03/28/24 075 Date Bo Danieligner Signature: Date (if indicated) CC: COMPANY DRIVER-C Renea Bassett; Bo Simms DO Date Dictated: 03/28/24728 Date Transcribed: Patient Care Specialist: EREN Signed [facility] MR/POSTOP.Igor 03-28-2024 MR/POSTOP.[facility] Medical Records Department [address] [place] [address] Anesthesia Postop Eval I 03/28/24755 MR#: [id number] Acct: [id number] Name: MARKUSDARI BOOKER Rep #: [id number] : 1990 33 From: Leida Morris PCP: PERLITA Bruno Status:REG SDC Y Race: C Location: [place] [address] Anesthesia: Postop Eval I Current Vital Signs Temperature: 97.9 F Pulse Rate: 90 Blood Pressure: 90/60 Respiratory Rate: 16 Pulse Ox: 100 Oxygen Delivery Method: Room Air Assessment Airway patent: Yes Spontaneous unlabored respirations: Yes Mental status: Asleep nausea: No Vomiting: No Anesthesia Complication: No Fluid Hydration Crystalloid volume administer (ml): 30 Total IV fluid infused: 30 Progress Note Anesthesia document: Postop Eval 1 completed: Yes 03/28/24 075 Date Leida Poole Signature: Date CC: Signed Normal [facility] [id number] 03-28-2024 MR/POSTOPAN2 [facility] Medical Records Department [address] [place] [address] Anesthesia Postop Eval II 03/28/24 101 MR#: [id number] Acct: [id number] Name: DARI APARICIO Rep #: [id number] : 1990 33 From: Morgan Renteria MD PCP: CASEY BrunoC Status:REG [facility] Race: C Location: [place] [address] Anesthesia Postop Eval I Sum Postop Eval Completion status Anesthesia document: Postop Eval 1 completed: Yes Anesthesia Postop Eval I Summary Anesthesia Postop Eval I Summary: Anesthesia Postop Eval I: Assessment Summary Airway patent Yes 03/28/24 07:56 [email or web address] Spontaneous unlabored Yes 03/28/24 07:56 [email or web address] respirations Mental status Asleep 03/28/24 07:56 [email or web address] nausea No 03/28/24 07:56 [email or web address] Vomiting No 03/28/24 07:56 [email or web address] Anesthesia Postop Eval I: Fluid Summary Crystalloid volume administer 30 03/28/24 07:56 [email or web address] (ml) Colloids volume administered ( ml) Blood Product volume administered (ml) Total IV fluid infused 30 03/28/24 07:56 [email or web address] Anesthesia Postop Eval I: Summary Notes Anesthesia Complication No 03/28/24 07:56 [email or web address] Anesthesia Complication Comment: Post-operative progress note Anesthesia: Postop Eval II Evaluation Mental status: Awake Pain Level: 0 nausea: No Vomiting: No 03/28/24 1017 Date Morgan Poole Signature: Date CC: Signed Normal [facility] P53 (initial)on 03-28-2024 P53 (initial) --- Patient Age/Sex Location Account Attending Physician DARI APARICIO 33/F EN [id number] Bo Simms DO Specimen: [id number] Received: 03/29/24 Status: FRANCESCA Benavidez Num: [id number] Spec Type: IMMUNO Subm Dr: Bo Simms DO PHYSICIAN INSTITUTION [place] [address] SPECIMEN INFORMATION: Tissue Source: Distal esophagus biopsy Clinical Info: Gastroesophageal reflux disease Specimen Number: [id number] CPT code: 32851,86135 METHODOLOGY: Deparaffinized sections of prefer/formalin-fixed tissue or PAP/DQ stained slides are incubated with monoclonal/polyclonal antibodies/oligonucleot julio probes. Localization is made via biotin free immunoperoxidase method. Appropriate controls are performed and reacted as expected. Results on target cell population are indicated in the following table: RESULTS: ANTIBODY / CLONE RESULT P53 (DO-7) negative (null pattern) Ki-67 (30-9) positive, low These tests were developed and their performance characteristics determined by [facility]. They may not have been cleared or approved by the U.S. Food and Drug Administration. The FDA has determined that such clearance or approval is not necessary. The above immunohistochemical/gill Manfred markers are ordered and reviewed by the Pathologist. INTERPRETATION: Distal esophagus, biopsy: Negative for dysplasia. 03/30/2024 Signed (signature on file) Dr. Luis Sanchez MD 03/30/24 0950 Normal [facility] Comment on above: Performed By: #### P P53 ####[facility] [address] [place], [address] Special Stain Group Ion 11-0 Special Stain Group I ----- Patient Age/Sex Location Account Attending Physician DARI APARICIO 33/F EN [id number] Bo Simms DO Specimen: [id number] Received: 03/28/24 Status: FRANCESCA Benavidez Num: [id number] Spec Type: EGD BIOPSY Subm Dr: DO DYAN Mao OPERATION: EGD with biopsy PRE-OP DIAGNOSIS: Gastroesophageal reflux disease TISSUE SUBMITTED: Distal esophagus biopsy MICROSCOPIC DIAGNOSIS Distal esophagus, biopsy: Fragments of gastroesophageal mucosa with rare cells with intestinal metaplasia (goblet cell metaplasia). Chronic inflammation. Negative for dysplasia. See comment. 03/29/2024 COMMENT Alcian blue/PAS stain with matched control is used in the evaluation of the specimen. Immunohistochemistry ([id number]) for P53 and Ki-67 will be performed and results will be reported separately. MICROSCOPIC DESCRIPTION Slides are reviewed. GROSS DESCRIPTION Received in fixative is one container labeled with the patient's name and designated Distal esophagus biopsy. The specimen consists of two irregular fragments of light miller soft tissue that in aggregate measure 0.6 x 0.3 x 0.1 cm. The specimen is totally submitted in one cassette. 03/28/2024 TC:3 CPT:26522,74730 Patient Age/Sex Location Account Attending Physician DARI APARICIO 33/F EN [id number] Bo Simms, DO Signed (signature on file) Dr. Luis Sanchez MD 03/30/24 0928 [facility] Comment on above: Performed By: #### L 100.0100, L700.6800, L500.4050, L501.2450 #### [facility] [address] [place], [address] Abdomen/Pelvis WITH Contrast on 03-27-2024 Abdomen/Pelvis WITH Contrast [facility] Imaging Services [address] [place] [address] Abdomen/Pelvis WITH Contrast MR#: [id number] Acct: [id number] Name: DARI APARICIO Rep #: [id number] : 1990 F 33 From: Elda Cox MD PCP: PERLITA Bruno Status: REG CLI Study: Abdomen/Pelvis WITH Contrast Date of Exam: 10/13 Exam# [id number] Ordering Dr: Vidhya Anderson [employer]IVER-C [id number] EXAM: CT ABDOMEN AND PELVIS WITH INTRAVENOUS CONTRAST CLINICAL INDICATION: severe abdominal pain, no imaging while in ER TECHNIQUE: Helically acquired images were obtained of the abdomen and pelvis with intravenous contrast. This CT exam was performed using one or more of the following dose reduction techniques: automated exposure control, adjustment of the mA and/or kV according to patient size, and/or use of iterative reconstruction technique. CONTRAST: Oral and amp; IV Readi-CAT and amp; 75mL Isovue-370 RADIATION DOSE: CTDIvol = 13.58 mGy, DLP = 864.06 mGy-cm COMPARISON: December 20, 2015 FINDINGS: LOWER THORAX: Unremarkable. Lung bases are clear. No cardiomegaly. No significant pericardial effusion. ABDOMEN: LIVER: Small focus of typical focal fatty infiltration in the left lobe of the liver near the fissure of the falciform ligament, similar to prior exam. GALLBLADDER AND BILE DUCTS: Unremarkable. No calcified gallstones. No gallbladder distention or wall edema. No intra- or extrahepatic biliary ductal dilation. PANCREAS: Unremarkable. No focal cystic or solid mass. SPLEEN: Unremarkable. Normal size without focal cystic or solid mass. ADRENALS: Unremarkable. No nodules. KIDNEYS AND URETERS: There is a 4 mm nonobstructing stone in the upper pole right kidney and 2 mm nonobstructing stone in the upper pole left kidney. No mabel hydronephrosis or ureter stone but the small ureters are difficult to follow. Normal renal size and position. STOMACH AND BOWEL: Moderate stool in the proximal half of the colon, mild gas in the distal colon, slight gas in the rectum. No stomach or bowel distention. No focal inflammatory change. PELVIS: APPENDIX: Oral contrast just reached the ileocecal junction. There are postoperative changes of appendectomy along the medial tip of the cecum. BLADDER: The urinary bladder is almost collapsed, mild wall thickening is likely due to incomplete distention. REPRODUCTIVE: There is a dominant slightly thick-walled follicle in the right ovary, roughly 1.2 cm x 1.2 cm x 1.2 cm. ABDOMEN and PELVIS: INTRAPERITONEAL SPACE: Slight intrapelvic fluid. No free air. BONES/JOINTS: There is moderate decreased disc height at L5-S1 and mild anterior and posterior spondylosis, minimally increased from prior exam. No evidence of significant or high-grade spinal stenosis. No suspicious lytic or blastic abnormality. SOFT TISSUES: Unremarkable. No discrete abdominal or pelvic wall hernia. VASCULATURE: Multiple phleboliths in the pelvis near the distal ureters and UVJs. Abdominal aorta is non-dilated. LYMPH NODES: Unremarkable. No enlarged lymph nodes. CT/Abdomen/Pelvis WITH Contrast IMPRESSION: 1. Bilateral nephrolithiasis. No convincing hydronephrosis or ureter stone. Multiple phleboliths in the pelvis. 2. Dominant follicle in the right ovary and slight intrapelvic fluid. 3. Appendectomy. 4. Moderate stool in the proximal half of the colon. No small bowel obstruction. Electronically Signed: Elda Cox MD at 19:44 EST , CC: PERLITA Bassett; PERLITA Anderson Patient Care Specialist: Signed [facility] 36on 03-26-2024 36 Pt notified Ozempic sent. [facility] 36on 03-23-2024 36 Ozempic is sent Thank you [facility] 36 Refill request for Ozempic. Pended. [facility] [id number] 03-20-2024 [id number] ___ TESTING PERFORMED AT [facility]. ORIGINAL REPORT ON FILE IN LAB CONTAINS ADDITIONAL TEST SITE INFORMATION. Giardia Lamblia EIA NEGATIVE Normal [facility] Comment on above: Performed By: #### L 100.0100, L700.6800, L500.4050, L501.2450 #### [facility] [address] [place], [address] Ova and Parasites 8623on OP OVA AND PARASITES EX AM, ROUTINE These results were obtained using wet preparation(s) and trichrome stained smear. This test does not include testing for Crytosporidium parvum, Cyclospora, or Microsporidia. One negative specimen does not rule out the possibility of a parasitic infection. TESTING PERFORMED AT [facility]. ORIGINAL REPORT ON FILE IN LAB CONTAINS ADDITIONAL TEST SITE INFORMATION. Ova/Parasite Exam NO OVA, CYSTS, OR PARASITES FOUND. [facility] Comment on above: Performed By: #### L 100.0100, L700.6800, L500.4050, L501.2450 #### [facility] [address] [facility] [place], [address] [id number] 03-17-2024 P ELASTASE,FECA > 800 Normal >200 [facility] Comment on above: Result Comment: Resu lt Units: ug Elast./g Severe Pancreatic Insufficiency: <100 Moderate Pancreatic Insufficiency: 100 - 200 Normal: >200 Performed at: [facility] [address] [id number] Cigarette Package Examiner: Sang Vega MD, Phone: [phone] Performed By: #### L 100.0100, L700.6800, L500.4050, L501.2450 #### [facility] [address] [place], [address] CBC W/Diff, Automatedon 02-21 Absolute Lymph 2.25 X10 3/uL Normal 0.83-4.51 [facility] Comment on above: Performed By: #### L 100.0100, L700.6800, L500.4050, L501.2450 #### [facility] [address] [place], [address] Absolute Neut 2.7 X10 3/uL Normal 2.0-7.7 [facility] Comment on above: Performed By: #### L 100.0100, L700.6800, L500.4050, L501.2450 #### [facility] [address] [place], [address] Basophils/100 WBC (Bld) 0.5 % Normal 0-1 [facility] Comment on above: Performed By: #### L 100.0100, L700.6800, L500.4050, L501.2450 #### [facility] [address] [place], [address] Eosinophils/100 WBC (Bld) 1.3 % Normal 0-5 [facility] Comment on above: Performed By: #### L 100.0100, L700.6800, L500.4050, L501.2450 #### [facility] [address] [place], [address] Erythrocyte distribution width (RBC) [Ratio] 12.5 % Normal 11.6-14.6 [facility] Comment on above: Performed By: #### L 100.0100, L700.6800, L500.4050, L501.2450 #### [facility] [address] [place], [address] Hematocrit (Bld) [Volume fraction] 33.6 % Low 37-47 [facility] Comment on above: Performed By: #### L 100.0100, L700.6800, L500.4050, L501.2450 #### [facility] [address] [place], [address] Hemoglobin (Bld) [Mass/Vol] 11.7 g/dL Low 12.0-15.0 [facility] Comment on above: Performed By: #### L 100.0100, L700.6800, L500.4050, L501.2450 #### [facility] [address] [place], [address] IG% 0.200 Normal 0.0-0.9 [facility] Comment on above: Result Comment: IG% - Immature Granulocytes (promyelocytes, myelocytes and metamyelocytes) > 1% indicates that a LEFT SHIFT is Present. Performed By: #### L 100.0100, L700.6800, L500.4050, L501.2450 #### [facility] [address] [place], [address] Lymphocytes/100 WBC (Bld) 40.8 % Normal 19-41 [facility] Comment on above: Performed By: #### L 100.0100, L700.6800, L500.4050, L501.2450 #### [facility] [address] [place], [address] MCH (RBC) [Entitic mass] 30.7 pg Normal 27.0-32.0 [facility] Comment on above: Performed By: #### L 100.0100, L700.6800, L500.4050, L501.2450 #### [facility] [address] [place], [address] MCHC (RBC) [Mass/Vol] 34.8 g/dL Normal 32-36 [facility] Comment on above: Performed By: #### L 100.0100, L700.6800, L500.4050, L501.2450 #### [facility] [address] [place], [address] MCV (RBC) [Entitic vol] 88.2 fL Normal 81-99 [facility] Comment on above: Performed By: #### L 100.0100, L700.6800, L500.4050, L501.2450 #### [facility] [address] [place], [address] Monocytes/100 WBC (Bld) 8.2 % Normal 0-10 [facility] Comment on above: Performed By: #### L 100.0100, L700.6800, L500.4050, L501.2450 #### [facility] [address] [place], [address] Neutrophils/100 WBC (Bld) 49.0 % Normal 47-70 [facility] Comment on above: Performed By: #### L 100.0100, L700.6800, L500.4050, L501.2450 #### [facility] [address] [place], [address] Nucleated RBC (Bld) [#/Vol] 0 10*3/uL Normal 0-5 [facility] Comment on above: Performed By: #### L 100.0100, L700.6800, L500.4050, L501.2450 #### [facility] [address] [place], [address] Platelet mean volume (Bld) [Entitic vol] 9.5 fL Normal 6.2-12.0 [facility] Comment on above: Performed By: #### L 100.0100, L700.6800, L500.4050, L501.2450 #### [facility] [address] [place], [address] Platelets (Bld) [#/Vol] 315 10*3/uL Normal 150-450 [facility] Comment on above: Performed By: #### L 100.0100, L700.6800, L500.4050, L501.2450 #### [facility] [address] [place], [address] RBC (Bld) [#/Vol] 3.81 10*6/uL Low 4.2-5.4 [facility] Comment on above: Performed By: #### L 100.0100, L700.6800, L500.4050, L501.2450 #### [facility] [address] [place], [address] RDW SD 40.6 fl Normal 35.1-43.9 [facility] Comment on above: Performed By: #### L 100.0100, L700.6800, L500.4050, L501.2450 #### [facility] [address] [place], [address] WBC (Bld) [#/Vol] 5.5 10*3/uL Normal 4.4-11.0 [facility] Comment on above: Performed By: #### L 100.0100, L700.6800, L500.4050, L501.2450 #### [facility] [address] [place], [address] [facility] [address] [facility] ug/g Normal 0-120 [facility] Comment on above: Result Comment: Conc entration Interpretation Follow-Up < 5 - 50 ug/g Normal None >50 -120 ug/g Borderline Re-evaluate in 4-6 weeks >120 ug/g Abnormal Repeat as clinically indicated Performed at: - [address] [id number] Cigarette Package Examiner: Sang Vega MD, Phone: [phone] Performed By: #### L 100.0100, L700.6800, L500.4050, L501.2450 #### [facility] [address] [place], [address] Comprehensive Metabolic Prof tnon 03-16-2024 Albumin [Mass/Vol] 3.9 g/dL Normal 3.2-5.0 [facility] Comment on above: Performed By: #### L 100.0100, L700.6800, L500.4050, L501.2450 #### [facility] [address] [place], [address] Albumin/Globulin [Mass ratio] 1.2 {ratio} Normal 0.9-2.4 [facility] Comment on above: Performed By: #### L 100.0100, L700.6800, L500.4050, L501.2450 #### [facility] [address] [place], [address] ALK P 52 U/L Normal 45-117 [facility] Comment on above: Performed By: #### L 100.0100, L700.6800, L500.4050, L501.2450 #### [facility] [address] [place], [address] ALT [Catalytic activity/Vol] 26 U/L Normal 13-56 [facility] Comment on above: Performed By: #### L 100.0100, L700.6800, L500.4050, L501.2450 #### [facility] [address] [place], [address] AST [Catalytic activity/Vol] 12 U/L Low 15-37 [facility] Comment on above: Performed By: #### L 100.0100, L700.6800, L500.4050, L501.2450 #### [facility] [address] [place], [address] Bilirubin [Mass/Vol] 0.30 mg/dL Normal 0.20-1.00 [facility] Comment on above: Result Comment: For patients on eltrombopag therapy, use of Dimension [place] TBIL is not recommended. Performed By: #### L 100.0100, L700.6800, L500.4050, L501.2450 #### [facility] [address] [place], [address] BUN/CRE 18.6 RATIO Normal 10-20 [facility] Comment on above: Performed By: #### L 100.0100, L700.6800, L500.4050, L501.2450 #### [facility] [address] [place], [address] CA,Total 8.9 mg/dL Normal 8.5-10.1 [facility] Comment on above: Performed By: #### L 100.0100, L700.6800, L500.4050, L501.2450 #### [facility] [address] [place], [address] Chloride [Moles/Vol] 107 mmol/L Normal 98-107 [facility] Comment on above: Performed By: #### L 100.0100, L700.6800, L500.4050, L501.2450 #### [facility] [address] [place], [address] CO2 [Moles/Vol] 29.0 mmol/L Normal 21.0-32.0 [facility] Comment on above: Performed By: #### L 100.0100, L700.6800, L500.4050, L501.2450 #### [facility] [address] [place], [address] Creatinine [Mass/Vol] 0.59 mg/dL Normal 0.55-1.02 [facility] Comment on above: Result Comment: The validity of the calculated GFR GFRAA in patients over 70 years has not been determined. Clinical correlation is essential. Performed By: #### L 100.0100, L700.6800, L500.4050, L501.2450 #### [facility] [address] [place], [address] ECRCL 115.79 ml/min Normal [facility] Comment on above: Performed By: #### L 100.0100, L700.6800, L500.4050, L501.2450 #### [facility] [address] [place], [address] EST GFR - AA 150 mL/min Normal >60 [facility] Comment on above: Result Comment: Afri can Indian GFR Calc Performed By: #### L 100.0100, L700.6800, L500.4050, L501.2450 #### [facility] [address] [place], [address] GAP 6 Normal 5-15 [facility] Comment on above: Performed By: #### L 100.0100, L700.6800, L500.4050, L501.2450 #### [facility] [address] [place], [address] GFR/1.73 sq M.predicted among non-blacks MDRD (S/P/Bld) [Vol rate/Area] 124 mL/min/{1.73_m2} Normal >60 [facility] Comment on above: Result Comment: Non- GFR Calc Performed By: #### L 100.0100, L700.6800, L500.4050, L501.2450 #### [facility] [address] [place], [address] Globulin (S) [Mass/Vol] 3.3 g/dL Normal 2.2-4.2 [facility] Comment on above: Performed By: #### L 100.0100, L700.6800, L500.4050, L501.2450 #### [facility] [address] [place], [address] Glucose [Mass/Vol] 81 mg/dL Normal 74-106 [facility] Comment on above: Performed By: #### L 100.0100, L700.6800, L500.4050, L501.2450 #### [facility] [address] [place], [address] Potassium [Moles/Vol] 3.7 mmol/L Normal 3.5-5.1 [facility] Comment on above: Performed By: #### L 100.0100, L700.6800, L500.4050, L501.2450 #### [facility] [address] [place], [address] Sodium [Moles/Vol] 142 mmol/L Normal 136-145 [facility] Comment on above: Performed By: #### L 100.0100, L700.6800, L500.4050, L501.2450 #### [facility] [address] [place], [address] T PROT 7.2 g/dL Normal 6.4-8.2 [facility] Comment on above: Performed By: #### L 100.0100, L700.6800, L500.4050, L501.2450 #### [facility] [address] [place], [address] Urea nitrogen [Mass/Vol] 11 mg/dL Normal 7-18 [facility] Comment on above: Performed By: #### L 100.0100, L700.6800, L500.4050, L501.2450 #### [facility] [address] [place], [address] Emergency Department Summary on 03-16-2024 Emergency Department Summary [facility] Medical Records Department [address] [place] [address] Emergency Department Summary 03/16/24 MR#: [id number] Acct: [id number] Name: DARI APARICIO Rep #: [id number] : 1990 33 From: Gonzalo Blanco MD PCP: Renea Bassett NP-Abel Status:REG ER Location: ED HPI HPI - GI History of Present Illness Chief Complaint: Abd Pain Informant: patient Abdominal Pain/Flank Pain Onset: Month(s) Context: Gradual Onset Timing: Continuous Quality: Aching and Cramping Location: Diffuse Current Severity: Mild Maximum Severity: Moderate Worsened by: Nothing Relieved by: Nothing Nausea/Vomiting/Emesis GI Symptom: Positive for Nausea Severity: Mild Diarrhea/Melena/Hematoc hezia GI Symptom: Negative for Diarrhea, Melena or Hematochezia Associated Symptoms Associated Symptoms: Negative for Dysuria, Frequency, Hematuria or Urgency Narrative Narrative: 33-year-old female history of irritable bowel, PTSD, tubal ligation, prior appendectomy, prior C- sections. Several weeks to months if not longer history of diffuse abdominal pain. She has had workup with labs not really given a specific diagnosis. She is seen at the [facility] nurse practitioner and has an upcoming scheduled endoscopy but that is not till I believe April. Complaining of primarily upper abdominal pain. Said has been constant. She has had pain for 2 months. Associated nausea. No vomiting or diarrhea no constipation or dysuria. No fever. She is currently on Ozempic and has been for 5 or 6 months with about a 72 pound weight loss. She does not believe that is associated with the problem. Said when she was taken at the first few months she had no pain or issues. She has had recent CAT scans of her abdomen and they were unremarkable. Prior similar symptoms: Yes Recent Illness/Hospitalization : No [facility] Medical History IBS (irritable bowel syndrome) Maxillary sinusitis Effusion, left knee Diabetes PTSD (post-traumatic stress disorder) Low iron Back pain Migraine headache History of IBS Sleep apnea Asthma Shortness of breath on exertion Leg cramps Hypertension Adopted ASCUS with positive high risk HPV Pelvic pain Hypersomnia Rectal bleeding Anxiety and depression Spontaneous HPV test positive Acute appendicitis GERD (gastroesophageal reflux disease) Irregular periods Obesity Scoliosis Chronic back pain Preeclampsia Home Medications ???Medication ???Instructions ???Recorded ???Last Taken ???Type multivitamin 1 tab PO DAILY 12/20/22 Unknown History semaglutide 0.25 mg or 0.5 mg (2 mg subcut 12/20/22 Unknown History mg/3 mL) subcutaneous pen injector (Ozempic) biotin 1 mg capsule 1 mg PO DAILY 10/26/23 Unknown History cyclobenzaprine 7.5 mg tablet 7.5 mg PO QHS PRN muscle spasm #20 01/13/24 Unknown Rx tabs isoniazid 100 mg tablet 300 mg PO DAILY 01/13/24 Unknown History pyridoxine (vitamin B6) 100 mg 100 mg PO DAILY 01/13/24 Unknown History tablet desvenlafaxine succinate 50 mg 50 mg PO DAILY #90 tabs 03/01/24 Unknown Rx tablet,extended release 24 hr ondansetron 4 mg disintegrating 4 mg PO Q6H PRN nausea and 03/05/24 Unknown Rx tablet vomiting #30 tabs famotidine 40 mg tablet 40 mg PO QHS #30 tabs 03/09/24 Unknown Rx pantoprazole 40 mg tablet,delayed 40 mg PO BID #60 tabs 03/09/24 Unknown Rx release sucralfate 1 gram tablet 1 g PO QAC #90 tabs 03/09/24 Unknown Rx Allergy/AdvReac Type Severity Reaction Status Date / Time amoxicillin (From Augmentin) AdvReac Mild Vomiting Verified 03/16/24 11:37 clavulanic acid (From AdvReac Mild Vomiting Verified 03/16/24 11:37 Augmentin) naproxen AdvReac Other Verified 03/16/24 11:37 varenicline tartrate (From AdvReac Other Verified 03/16/24 11:37 Chantix) Family History Mother Depression Aunt Breast cancer Multiple sclerosis Grandmother Diabetes Uncle Hyperlipemia Menieres disease Depression Grandfather Heart disease Myocardial infarction CVA (cerebral vascular accident) Sister Crohn's disease half sister Other Hypertension Surgical History Status post tubal ligation Status post bilateral salpingectomy History of History of hip surgery H/O adenoidectomy delivery delivered S/P laparoscopic appendectomy ( 05/06/18) S/P right knee arthroscopy History of tonsillectomy H/O knee surgery Hx of breast reduction, elective Social History household members: family and children housing: house current occupational status: unemployed Smoking Status: Current every day smoker tobacco type: (more content not included)... Normal [facility] Lipaseon 03-16-2024 Lipase [Catalytic activity/Vol] 51 U/L Normal 13-75 [facility] Comment on above: Result Comment: Roney small note: LIPASE revised reference range effective 22. New Lipase methodology. Expected to produce lower values than the previous assay method. NEW Reference Range: 13 - 75 U/L Performed By: #### L 100.0100, L700.6800, L500.4050, L501.2450 #### [facility] [address] [place], [place], [id number] ,Serum,hCG Quali.on 03-16-2024 HCG, SERUM QUAL Negative Normal [facility] Comment on above: Performed By: #### L 100.0100, L700.6800, L500.4050, L501.2450 #### [facility] [address] [place], [address] ROBERT Comprehensive Panelon ROBERT TABLE Comment Normal . [facility] Comment on above: Result Comment: Auto antibody Disease Association Condition Frequency --------- Antinuclear Antibody, SLE, mixed connective Direct (ROBERT-D) tissue diseases --------- dsDNA SLE 40 - 60% --------- Chromatin Drug induced SLE 90% SLE 48 - 97% --------- SSA (Ro) SLE 25 - 35% Sjogren's Syndrome 40 - 70% Lupus 100% --------- SSB (La) SLE 10% Sjogren's Syndrome 30% --------- Sm (anti-Sultana) SLE 15 - 30% --------- CRIB ATTENDANT Mixed Connective Tissue Disease 95% (U1 nRNP, SLE 30 - 50% anti-ribonucleoprotein) Polymyositis and/or Dermatomyositis 20% --------- Scl-70 (antiDNA Scleroderma (diffuse) 20 - 35% topoisomerase) Crest 13% --------- Usha-1 Polymyositis and/or Dermatomyositis 20 - 40% --------- Centromere B Scleroderma - Crest variant 80% Performed By: #### L 3200.1100, L3300.1200, L3410.2400, L100.0100, L101.9900, L500.4050, L501.6710, L501.17635, L501.9520, L504.2610, L3100.5440, L5500.0550, L2100.0000, L3100.3425 ####[facility] [address] [facility] [place], [place], [phone] ANTI-CENT B AB <0.2 Normal 0.0-0.9 [facility] Comment on above: Performed By: #### L 3200.1100, L3300.1200, L3410.2400, L100.0100, L101.9900, L500.4050, L501.6710, L501.18941, L501.9520, L504.2610, L3100.5440, L5500.0550, L2100.0000, L3100.3425 ####[facility] [address] [facility] [place], [place], [address] ANTI-DNA (DS)AB 1 IU/mL Normal 0-9 [facility] Comment on above: Result Comment: Nega tive <5 Equivocal 5 - 9 Positive >9 Performed By: #### L 3200.1100, L3300.1200, L3410.2400, L100.0100, L101.9900, L500.4050, L501.6710, L501.60235, L501.9520, L504.2610, L3100.5440, L5500.0550, L2100.0000, L3100.3425 ####[facility] [address] [place], [address] ANTI-USHA-1 <0.2 Normal 0.0-0.9 [facility] Comment on above: Performed By: #### L 3200.1100, L3300.1200, L3410.2400, L100.0100, L101.9900, L500.4050, L501.6710, L501.34262, L501.9520, L504.2610, L3100.5440, L5500.0550, L2100.0000, L3100.3425 ####[facility] [address] [place], [place], [phone] ANTI-SS-A < 0.2 Normal 0.0-0.9 [facility] Comment on above: Performed By: #### L 3200.1100, L3300.1200, L3410.2400, L100.0100, L101.9900, L500.4050, L501.6710, L501.79878, L501.9520, L504.2610, L3100.5440, L5500.0550, L2100.0000, L3100.3425 ####[facility] [address] [place], [address] ANTI-SS-B < 0.2 Normal 0.0-0.9 [facility] Comment on above: Performed By: #### L 3200.1100, L3300.1200, L3410.2400, L100.0100, L101.9900, L500.4050, L501.6710, L501.74058, L501.9520, L504.2610, L3100.5440, L5500.0550, L2100.0000, L3100.3425 ####[facility] [address] [place], [place], [phone] ANTICHROMATIN <0.2 Normal 0.0-0.9 [facility] Comment on above: Performed By: #### L 3200.1100, L3300.1200, L3410.2400, L100.0100, L101.9900, L500.4050, L501.6710, L501.24517, L501.9520, L504.2610, L3100.5440, L5500.0550, L2100.0000, L3100.3425 ####[facility] [address] [place], [place], [phone] ANTISCLERODERM <0.2 Normal 0.0-0.9 [facility] Comment on above: Performed By: #### L 3200.1100, L3300.1200, L3410.2400, L100.0100, L101.9900, L500.4050, L501.6710, L501.53652, L501.9520, L504.2610, L3100.5440, L5500.0550, L2100.0000, L3100.3425 ####[facility] [address] [place], [place], [address] CRIB ATTENDANT Ab 0.3 AI Normal 0.0-0.9 [facility] Comment on above: Performed By: #### L 3200.1100, L3300.1200, L3410.2400, L100.0100, L101.9900, L500.4050, L501.6710, L501.30966, L501.9520, L504.2610, L3100.5440, L5500.0550, L2100.0000, L3100.3425 ####[facility] [address] [place], [address] SULTANA Ab <0.2 Normal 0.0-0.9 [facility] Comment on above: Performed By: #### L 3200.1100, L3300.1200, L3410.2400, L100.0100, L101.9900, L500.4050, L501.6710, L501.81051, L501.9520, L504.2610, L3100.5440, L5500.0550, L2100.0000, L3100.3425 ####[facility] [address] [place], [address] ANCAon 03-14-2024 Atypical pANCA <1:20 Normal Neg:<1:20 [facility] Comment on above: Order Comment: N Result Comment: The atypical pANCA pattern has been observed in a significant percentage of patients with ulcerative colitis, primary sclerosing cholangitis and autoimmune hepatitis. Performed at: [facility] [address] [id number] Cigarette Package Examiner: Kenney Russo PhD, Phone: [phone] Performed at: [facility] [address] [id number] Cigarette Package Examiner: Sang Vega MD, Phone: [phone] Performed By: #### L 100.0100, L700.6800, L500.4050, L501.2450 #### [facility] [address] [place], [address] Cytoplasmic Ab <1:20 Normal Neg:<1:20 [facility] Comment on above: Order Comment: N Performed By: #### L 100.0100, L700.6800, L500.4050, L501.2450 #### [facility] [address] [place], [address] Perinuclear Ab. <1:20 Normal Neg:<1:20 [facility] Comment on above: Order Comment: N Result Comment: The presence of positive fluorescence exhibiting P-ANCA or C-ANCA patterns alone is not specific for the diagnosis of Desmond's Granulomatosis (WG) or microscopic polyangiitis. Decisions about treatment should not be based solely on ANCA IFA results. The International ANCA Group Consensus recommends follow up testing of positive sera with both MO- 3 and MPO-ANCA enzyme immunoassays. As many as 5% serum samples are positive only by EIA. Ref. AM J Clin Pathol 1999;111:507-513. Performed By: #### L 100.0100, L700.6800, L500.4050, L501.2450 #### [facility] [address] [place], [address] Celiac Disease Profileon ENDOMYSIAL IGA Negative Normal Negative [facility] Comment on above: Order Comment: N Performed By: #### L 100.0100, L700.6800, L500.4050, L501.2450 #### [facility] [address] [place], [address] tTG IGA <2 Normal 0-3 [facility] Comment on above: Order Comment: N Result Comment: Nega tive 0 - 3 Weak Positive 4 - 10 Positive >10 Tissue Transglutaminase (tTG) has been identified as the endomysial antigen. Studies have demonstr- ated that endomysial IgA antibodies have over 99% specificity for gluten sensitive enteropathy. Performed By: #### L 100.0100, L700.6800, L500.4050, L501.2450 #### [facility] [address] [place], [address] ISRAEL + Protein Elect, Serumon 03-14-2024 Albumin [Mass/Vol] 4.1 g/dL Normal 2.9-4.4 [facility] Comment on above: Order Comment: N Performed By: #### L 3200.1100, L3300.1200, L3410.2400, L100.0100, L101.9900, L500.4050, L501.6710, L501.97309, L501.9520, L504.2610, L3100.5440, L5500.0550, L2100.0000, L3100.3425 ####[facility] [address] [facility] [place], [place], [phone] Albumin/Globulin [Mass ratio] 1.4 {ratio} Normal 0.7-1.7 [facility] Comment on above: Order Comment: N Performed By: #### L 3200.1100, L3300.1200, L3410.2400, L100.0100, L101.9900, L500.4050, L501.6710, L501.66828, L501.9520, L504.2610, L3100.5440, L5500.0550, L2100.0000, L3100.3425 ####[facility] [address] [facility] [place], [address] JLETX-8-IRMO 0.3 g/dL Normal 0.0-0.4 [facility] Comment on above: Order Comment: N Performed By: #### L 3200.1100, L3300.1200, L3410.2400, L100.0100, L101.9900, L500.4050, L501.6710, L501.73594, L501.9520, L504.2610, L3100.5440, L5500.0550, L2100.0000, L3100.3425 ####[facility] [address] [facility] [place], [address] SCLRY-5-OLGC 0.6 g/dL Normal 0.4-1.0 [facility] Comment on above: Order Comment: N Performed By: #### L 3200.1100, L3300.1200, L3410.2400, L100.0100, L101.9900, L500.4050, L501.6710, L501.33376, L501.9520, L504.2610, L3100.5440, L5500.0550, L2100.0000, L3100.3425 ####[facility] [address] [place], [address] BETA GLOBULIN 1.0 g/dL Normal 0.7-1.3 [facility] Comment on above: Order Comment: N Performed By: #### L 3200.1100, L3300.1200, L3410.2400, L100.0100, L101.9900, L500.4050, L501.6710, L501.48568, L501.9520, L504.2610, L3100.5440, L5500.0550, L2100.0000, L3100.3425 ####[facility] [address] [place], [address] GAMMA GLOBULIN 1.1 g/dL Normal 0.4-1.8 [facility] Comment on above: Order Comment: N Performed By: #### L 3200.1100, L3300.1200, L3410.2400, L100.0100, L101.9900, L500.4050, L501.6710, L501.86770, L501.9520, L504.2610, L3100.5440, L5500.0550, L2100.0000, L3100.3425 ####[facility] [address] [place], [address] Globulin (S) [Mass/Vol] 3.0 g/dL Normal 2.2-3.9 [facility] Comment on above: Order Comment: N Performed By: #### L 3200.1100, L3300.1200, L3410.2400, L100.0100, L101.9900, L500.4050, L501.6710, L501.51307, L501.9520, L504.2610, L3100.5440, L5500.0550, L2100.0000, L3100.3425 ####[facility] [address] [place], [address] ISRAEL RESULT,S Comment Normal . [facility] Comment on above: Order Comment: N Result Comment: No m onoclonality detected. Performed By: #### L 3200.1100, L3300.1200, L3410.2400, L100.0100, L101.9900, L500.4050, L501.6710, L501.50111, L501.9520, L504.2610, L3100.5440, L5500.0550, L2100.0000, L3100.3425 ####[facility] [address] [place], [address] IMMUNOGLOB A QN 187 mg/dL Normal 87-352 [facility] Comment on above: Order Comment: N Performed By: #### L 3200.1100, L3300.1200, L3410.2400, L100.0100, L101.9900, L500.4050, L501.6710, L501.66209, L501.9520, L504.2610, L3100.5440, L5500.0550, L2100.0000, L3100.3425 ####[facility] [address] [place], [address] IMMUNOGLOB G QN 1017 mg/dL Normal 586-1602 [facility] Comment on above: Order Comment: N Performed By: #### L 3200.1100, L3300.1200, L3410.2400, L100.0100, L101.9900, L500.4050, L501.6710, L501.12830, L501.9520, L504.2610, L3100.5440, L5500.0550, L2100.0000, L3100.3425 ####[facility] [address] [place], [address] IMMUNOGLOB M QN 145 mg/dL Normal 26-217 [facility] Comment on above: Order Comment: N Performed By: #### L 3200.1100, L3300.1200, L3410.2400, L100.0100, L101.9900, L500.4050, L501.6710, L501.90553, L501.9520, L504.2610, L3100.5440, L5500.0550, L2100.0000, L3100.3425 ####[facility] [address] [place], [place], [phone] M-Justyn Not Observed Normal Not Observed [facility] Comment on above: Order Comment: N Performed By: #### L 3200.1100, L3300.1200, L3410.2400, L100.0100, L101.9900, L500.4050, L501.6710, L501.14596, L501.9520, L504.2610, L3100.5440, L5500.0550, L2100.0000, L3100.3425 ####[facility] [address] [place], [place], [phone] NOTE: Comment Normal . [facility] Comment on above: Order Comment: N Result Comment: Prot ein electrophoresis scan will follow via computer, mail, or road repairer delivery. Performed By: #### L 3200.1100, L3300.1200, L3410.2400, L100.0100, L101.9900, L500.4050, L501.6710, L501.82354, L501.9520, L504.2610, L3100.5440, L5500.0550, L2100.0000, L3100.3425 ####[facility] [address] [place], [place], [phone] Protein [Mass/Vol] 7.1 g/dL Normal 6.0-8.5 [facility] Comment on above: Order Comment: N Performed By: #### L 3200.1100, L3300.1200, L3410.2400, L100.0100, L101.9900, L500.4050, L501.6710, L501.94681, L501.9520, L504.2610, L3100.5440, L5500.0550, L2100.0000, L3100.3425 ####[facility] [address] [place], [address] Immunoglobulins G/A/M/[place] IMMUNOGLOB E QN < 2 Low 6-495 [facility] Comment on above: Order Comment: N Performed By: #### L 3200.1100, L3300.1200, L3410.2400, L100.0100, L101.9900, L500.4050, L501.6710, L501.40462, L501.9520, L504.2610, L3100.5440, L5500.0550, L2100.0000, L3100.3425 ####[facility] [address] [place], [place], [address] L2100.0000on 03-14-2024 ACCA 14 units Normal 0-90 [facility] Comment on above: Order Comment: N Result Comment: Nega tive: <80 Equivocal: 80-90 Positive: >90 Performed By: #### L 3200.1100, L3300.1200, L3410.2400, L100.0100, L101.9900, L500.4050, L501.6710, L501.47484, L501.9520, L504.2610, L3100.5440, L5500.0550, L2100.0000, L3100.3425 ####[facility] [address] [place], [place], [id number] ALCA 75 units Abnormal 0-60 [facility] Comment on above: Order Comment: N Result Comment: Nega tive:<55 Equivocal: 55-60 Positive: >60 Performed By: #### L 3200.1100, L3300.1200, L3410.2400, L100.0100, L101.9900, L500.4050, L501.6710, L501.12965, L501.9520, L504.2610, L3100.5440, L5500.0550, L2100.0000, L3100.3425 ####[facility] [address] [place], [place], [address] AMCA 31 units Normal 0-100 [facility] Comment on above: Order Comment: N Result Comment: Nega tive: <90 Equivocal: 90-100 Positive: >100 This test was developed and its performance characteristics determined by [facility]. It has not been cleared or approved by the Food and Drug Administration. The FDA has determined that such clearance or approval is not necessary. Performed By: #### L 3200.1100, L3300.1200, L3410.2400, L100.0100, L101.9900, L500.4050, L501.6710, L501.36895, L501.9520, L504.2610, L3100.5440, L5500.0550, L2100.0000, L3100.3425 ####[facility] [address] [place], [place], [phone] Atypical pANCA Negative Normal Negative [facility] Comment on above: Order Comment: N Performed By: #### L 3200.1100, L3300.1200, L3410.2400, L100.0100, L101.9900, L500.4050, L501.6710, L501.66357, L501.9520, L504.2610, L3100.5440, L5500.0550, L2100.0000, L3100.3425 ####[facility] [address] [place], [place], [address] COMMENT Comment Abnormal . [facility] Comment on above: Order Comment: N Result Comment: Sugg estive of Crohn's Disease. Pattern is not conclusive for disease behavior risk stratification. Performed By: #### L 3200.1100, L3300.1200, L3410.2400, L100.0100, L101.9900, L500.4050, L501.6710, L501.91104, L501.9520, L504.2610, L3100.5440, L5500.0550, L2100.0000, L3100.3425 ####[facility] [address] [place], [place], [phone] Asa 21 units Normal 0-50 [facility] Comment on above: Order Comment: N Result Comment: Nega tive: <45 Equivocal: 45-50 Positive: >50 Performed By: #### L 3200.1100, L3300.1200, L3410.2400, L100.0100, L101.9900, L500.4050, L501.6710, L501.50955, L501.9520, L504.2610, L3100.5440, L5500.0550, L2100.0000, L3100.3425 ####[facility] [address] [place], [place], [address] L5500.0550on 03-14-2024 BEEF <0.10 Normal Class 0 [facility] Comment on above: Performed By: #### L 3200.1100, L3300.1200, L3410.2400, L100.0100, L101.9900, L500.4050, L501.6710, L501.74291, L501.9520, L504.2610, L3100.5440, L5500.0550, L2100.0000, L3100.3425 ####[facility] [address] [place], [place], [address] CHOCOLATE <0.10 Normal Class 0 [facility] Comment on above: Performed By: #### L 3200.1100, L3300.1200, L3410.2400, L100.0100, L101.9900, L500.4050, L501.6710, L501.73566, L501.9520, L504.2610, L3100.5440, L5500.0550, L2100.0000, L3100.3425 ####[facility] [address] [place], [place], [phone] CODFISH <0.10 Normal Class 0 [facility] Comment on above: Performed By: #### L 3200.1100, L3300.1200, L3410.2400, L100.0100, L101.9900, L500.4050, L501.6710, L501.68478, L501.9520, L504.2610, L3100.5440, L5500.0550, L2100.0000, L3100.3425 ####[facility] [address] [place], [address] COMMENT Comment Normal . [facility] Comment on above: Result Comment: Xander vides of Specific IgE Class Description of Class ----- < 0.10 0 Negative 0.10 - 0.31 0/I Equivocal/Low 0.32 - 0.55 I Low 0.56 - 1.40 II Moderate 1.41 - 3.90 III High 3.91 - 19.00 IV Very High 19.01 - 100.00 V Very High >100.00 Very High Performed By: #### L 3200.1100, L3300.1200, L3410.2400, L100.0100, L101.9900, L500.4050, L501.6710, L501.13147, L501.9520, L504.2610, L3100.5440, L5500.0550, L2100.0000, L3100.3425 ####[facility] [address] [place], [place], [id number] CORN <0.10 Normal Class 0 [facility] Comment on above: Performed By: #### L 3200.1100, L3300.1200, L3410.2400, L100.0100, L101.9900, L500.4050, L501.6710, L501.18013, L501.9520, L504.2610, L3100.5440, L5500.0550, L2100.0000, L3100.3425 ####[facility] [address] [place], [place], [id number] EGG, WHOLE <0.10 Normal Class 0 [facility] Comment on above: Result Comment: Perf ormed at: [address] [id number] Cigarette Package Examiner: Kenney Russo PhD, Phone: [phone] Performed at: [facility] [address] [id number] Cigarette Package Examiner: Sang Vega MD, Phone: [phone] Performed By: #### L 3200.1100, L3300.1200, L3410.2400, L100.0100, L101.9900, L500.4050, L501.6710, L501.38392, L501.9520, L504.2610, L3100.5440, L5500.0550, L2100.0000, L3100.3425 ####[facility] [address] [place], [place], [phone] MILK (COW) <0.10 Normal Class 0 [facility] Comment on above: Performed By: #### L 3200.1100, L3300.1200, L3410.2400, L100.0100, L101.9900, L500.4050, L501.6710, L501.54990, L501.9520, L504.2610, L3100.5440, L5500.0550, L2100.0000, L3100.3425 ####[facility] [address] [place], [place], [address] MUSSELS <0.10 Normal Class 0 [facility] Comment on above: Performed By: #### L 3200.1100, L3300.1200, L3410.2400, L100.0100, L101.9900, L500.4050, L501.6710, L501.71353, L501.9520, L504.2610, L3100.5440, L5500.0550, L2100.0000, L3100.3425 ####[facility] [address] [place], [place], [address] PEANUT <0.10 Normal Class 0 [facility] Comment on above: Performed By: #### L 3200.1100, L3300.1200, L3410.2400, L100.0100, L101.9900, L500.4050, L501.6710, L501.85200, L501.9520, L504.2610, L3100.5440, L5500.0550, L2100.0000, L3100.3425 ####[facility] [address] [facility] [address] [place], [place], [id number] PORK <0.10 Normal Class 0 [facility] Comment on above: Performed By: #### L 3200.1100, L3300.1200, L3410.2400, L100.0100, L101.9900, L500.4050, L501.6710, L501.11620, L501.9520, L504.2610, L3100.5440, L5500.0550, L2100.0000, L3100.3425 ####[facility] [address] [facility] [place], [place], [address] SALMON <0.10 Normal Class 0 [facility] Comment on above: Performed By: #### L 3200.1100, L3300.1200, L3410.2400, L100.0100, L101.9900, L500.4050, L501.6710, L501.55021, L501.9520, L504.2610, L3100.5440, L5500.0550, L2100.0000, L3100.3425 ####[facility] [address] [facility] [address] [facility] [address] [place], [place], [address] SHRIMP <0.10 Normal Class 0 [facility] Comment on above: Performed By: #### L 3200.1100, L3300.1200, L3410.2400, L100.0100, L101.9900, L500.4050, L501.6710, L501.26980, L501.9520, L504.2610, L3100.5440, L5500.0550, L2100.0000, L3100.3425 ####[facility] [address] [place], [place], [address] SOYBEAN <0.10 Normal Class 0 [facility] Comment on above: Performed By: #### L 3200.1100, L3300.1200, L3410.2400, L100.0100, L101.9900, L500.4050, L501.6710, L501.11295, L501.9520, L504.2610, L3100.5440, L5500.0550, L2100.0000, L3100.3425 ####[facility] [address] [place], [place], [address] TUNA <0.10 Normal Class 0 [facility] Comment on above: Performed By: #### L 3200.1100, L3300.1200, L3410.2400, L100.0100, L101.9900, L500.4050, L501.6710, L501.19270, L501.9520, L504.2610, L3100.5440, L5500.0550, L2100.0000, L3100.3425 ####[facility] [address] [place], [place], [id number] WHEAT <0.10 Normal Class 0 [facility] Comment on above: Performed By: #### L 3200.1100, L3300.1200, L3410.2400, L100.0100, L101.9900, L500.4050, L501.6710, L501.10036, L501.9520, L504.2610, L3100.5440, L5500.0550, L2100.0000, L3100.3425 ####[facility] [address] [place], [place], [phone] Stool Lactoferrin/WBCon 10-2 WBCST Normal Reference Ran ge = Negative Fecal WBC Lactoferrin Negative: No Fecal WBC Lactoferrin present Normal [facility] Comment on above: Performed By: #### L 100.0100, L700.6800, L500.4050, L501.2450 #### [facility] [address] [place], [address] CBC W/Diff, Automatedon 10- Absolute Lymph 1.94 X10 3/uL Normal 0.83-4.51 [facility] Comment on above: Performed By: #### L 3200.1100, L3300.1200, L3410.2400, L100.0100, L101.9900, L500.4050, L501.6710, L501.71794, L501.9520, L504.2610, L3100.5440, L5500.0550, L2100.0000, L3100.3425 ####[facility] [address] [place], [place], [phone] Absolute Neut 1.0 X10 3/uL Low 2.0-7.7 [facility] Comment on above: Performed By: #### L 3200.1100, L3300.1200, L3410.2400, L100.0100, L101.9900, L500.4050, L501.6710, L501.34359, L501.9520, L504.2610, L3100.5440, L5500.0550, L2100.0000, L3100.3425 ####[facility] [address] [place], [address] Basophils/100 WBC (Bld) 0.9 % Normal 0-1 [facility] Comment on above: Performed By: #### L 3200.1100, L3300.1200, L3410.2400, L100.0100, L101.9900, L500.4050, L501.6710, L501.20362, L501.9520, L504.2610, L3100.5440, L5500.0550, L2100.0000, L3100.3425 ####[facility] [address] [place], [place], [phone]) Eosinophils/100 WBC (Bld) 0.6 % Normal 0-5 [facility] Comment on above: Performed By: #### L 3200.1100, L3300.1200, L3410.2400, L100.0100, L101.9900, L500.4050, L501.6710, L501.02330, L501.9520, L504.2610, L3100.5440, L5500.0550, L2100.0000, L3100.3425 ####[facility] [address] [place], [place], [phone]) Erythrocyte distribution width (RBC) [Ratio] 12.4 % Normal 11.6-14.6 [facility] Comment on above: Performed By: #### L 3200.1100, L3300.1200, L3410.2400, L100.0100, L101.9900, L500.4050, L501.6710, L501.96244, L501.9520, L504.2610, L3100.5440, L5500.0550, L2100.0000, L3100.3425 ####[facility] [address] [place], [place], [phone]) Hematocrit (Bld) [Volume fraction] 34.4 % Low 37-47 [facility] Comment on above: Performed By: #### L 3200.1100, L3300.1200, L3410.2400, L100.0100, L101.9900, L500.4050, L501.6710, L501.29247, L501.9520, L504.2610, L3100.5440, L5500.0550, L2100.0000, L3100.3425 ####[facility] [address] [place], [place], [phone]) Hemoglobin (Bld) [Mass/Vol] 11.8 g/dL Low 12.0-15.0 [facility] Comment on above: Performed By: #### L 3200.1100, L3300.1200, L3410.2400, L100.0100, L101.9900, L500.4050, L501.6710, L501.16763, L501.9520, L504.2610, L3100.5440, L5500.0550, L2100.0000, L3100.3425 ####[facility] [address] [place], [address] IG% 0.000 Normal 0.0-0.9 [facility] Comment on above: Result Comment: IG% - Immature Granulocytes (promyelocytes, myelocytes and metamyelocytes) > 1% indicates that a LEFT SHIFT is Present. Performed By: #### L 3200.1100, L3300.1200, L3410.2400, L100.0100, L101.9900, L500.4050, L501.6710, L501.15849, L501.9520, L504.2610, L3100.5440, L5500.0550, L2100.0000, L3100.3425 ####[facility] [address] [facility] [place], [address] Lymphocytes/100 WBC (Bld) 59.3 % High 19-41 [facility] Comment on above: Performed By: #### L 3200.1100, L3300.1200, L3410.2400, L100.0100, L101.9900, L500.4050, L501.6710, L501.64053, L501.9520, L504.2610, L3100.5440, L5500.0550, L2100.0000, L3100.3425 ####[facility] [address] [place], [address] MCH (RBC) [Entitic mass] 30.2 pg Normal 27.0-32.0 [facility] Comment on above: Performed By: #### L 3200.1100, L3300.1200, L3410.2400, L100.0100, L101.9900, L500.4050, L501.6710, L501.04017, L501.9520, L504.2610, L3100.5440, L5500.0550, L2100.0000, L3100.3425 ####[facility] [address] [place], [place], [phone] MCHC (RBC) [Mass/Vol] 34.3 g/dL Normal 32-36 [facility] Comment on above: Performed By: #### L 3200.1100, L3300.1200, L3410.2400, L100.0100, L101.9900, L500.4050, L501.6710, L501.44475, L501.9520, L504.2610, L3100.5440, L5500.0550, L2100.0000, L3100.3425 ####[facility] [address] [place], [place], [phone] MCV (RBC) [Entitic vol] 88.0 fL Normal 81-99 [facility] Comment on above: Performed By: #### L 3200.1100, L3300.1200, L3410.2400, L100.0100, L101.9900, L500.4050, L501.6710, L501.91903, L501.9520, L504.2610, L3100.5440, L5500.0550, L2100.0000, L3100.3425 ####[facility] [address] [place], [address] Monocytes/100 WBC (Bld) 7.3 % Normal 0-10 [facility] Comment on above: Performed By: #### L 3200.1100, L3300.1200, L3410.2400, L100.0100, L101.9900, L500.4050, L501.6710, L501.18130, L501.9520, L504.2610, L3100.5440, L5500.0550, L2100.0000, L3100.3425 ####[facility] [address] [place], [address] Neutrophils/100 WBC (Bld) 31.9 % Low 47-70 [facility] Comment on above: Performed By: #### L 3200.1100, L3300.1200, L3410.2400, L100.0100, L101.9900, L500.4050, L501.6710, L501.71268, L501.9520, L504.2610, L3100.5440, L5500.0550, L2100.0000, L3100.3425 ####[facility] [address] [place], [address] Nucleated RBC (Bld) [#/Vol] 0 10*3/uL Normal 0-5 [facility] Comment on above: Performed By: #### L 3200.1100, L3300.1200, L3410.2400, L100.0100, L101.9900, L500.4050, L501.6710, L501.43736, L501.9520, L504.2610, L3100.5440, L5500.0550, L2100.0000, L3100.3425 ####[facility] [address] [place], [address] Platelet mean volume (Bld) [Entitic vol] 8.8 fL Normal 6.2-12.0 [facility] Comment on above: Performed By: #### L 3200.1100, L3300.1200, L3410.2400, L100.0100, L101.9900, L500.4050, L501.6710, L501.20778, L501.9520, L504.2610, L3100.5440, L5500.0550, L2100.0000, L3100.3425 ####[facility] [address] [place], [address] Platelets (Bld) [#/Vol] 316 10*3/uL Normal 150-450 [facility] Comment on above: Performed By: #### L 3200.1100, L3300.1200, L3410.2400, L100.0100, L101.9900, L500.4050, L501.6710, L501.92013, L501.9520, L504.2610, L3100.5440, L5500.0550, L2100.0000, L3100.3425 ####[facility] [address] [place], [address] RBC (Bld) [#/Vol] 3.91 10*6/uL Low 4.2-5.4 [facility] Comment on above: Performed By: #### L 3200.1100, L3300.1200, L3410.2400, L100.0100, L101.9900, L500.4050, L501.6710, L501.76130, L501.9520, L504.2610, L3100.5440, L5500.0550, L2100.0000, L3100.3425 ####[facility] [address] [place], [address] RDW SD 39.8 fl Normal 35.1-43.9 [facility] Comment on above: Performed By: #### L 3200.1100, L3300.1200, L3410.2400, L100.0100, L101.9900, L500.4050, L501.6710, L501.48834, L501.9520, L504.2610, L3100.5440, L5500.0550, L2100.0000, L3100.3425 ####[facility] [address] [place], [address] WBC (Bld) [#/Vol] 3.3 10*3/uL Low 4.4-11.0 [facility] Comment on above: Performed By: #### L 3200.1100, L3300.1200, L3410.2400, L100.0100, L101.9900, L500.4050, L501.6710, L501.10605, L501.9520, L504.2610, L3100.5440, L5500.0550, L2100.0000, L3100.3425 ####[facility] [address] [place], [address] CRPon 03-09-2024 C-REACTIVE PROT < 2.90 Normal 0.0-3.0 [facility] Comment on above: Order Comment: 1 Result Comment: C-Re active Protein (CRP) provides useful information for the diagnosis, therapy and monitoring of inflammatory processes and associated diseases. For the evaluation of Relative Risk for Cardiovascular Disease, a High Sensitivity CRP (HSCRP) should be ordered. Performed By: #### L 3200.1100, L3300.1200, L3410.2400, L100.0100, L101.9900, L500.4050, L501.6710, L501.47002, L501.9520, L504.2610, L3100.5440, L5500.0550, L2100.0000, L3100.3425 ####[facility] [address] [place], [address] Comprehensive Metabolic Prof ilon 03-09-2024 Albumin [Mass/Vol] 4.0 g/dL Normal 3.2-5.0 [facility] Comment on above: Order Comment: 1 Performed By: #### L 3200.1100, L3300.1200, L3410.2400, L100.0100, L101.9900, L500.4050, L501.6710, L501.11796, L501.9520, L504.2610, L3100.5440, L5500.0550, L2100.0000, L3100.3425 ####[facility] [address] [place], [place], [phone] Albumin/Globulin [Mass ratio] 1.1 {ratio} Normal 0.9-2.4 [facility] Comment on above: Order Comment: 1 Performed By: #### L 3200.1100, L3300.1200, L3410.2400, L100.0100, L101.9900, L500.4050, L501.6710, L501.67234, L501.9520, L504.2610, L3100.5440, L5500.0550, L2100.0000, L3100.3425 ####[facility] [address] [place], [place], [phone] ALK P 53 U/L Normal 45-117 [facility] Comment on above: Order Comment: 1 Performed By: #### L 3200.1100, L3300.1200, L3410.2400, L100.0100, L101.9900, L500.4050, L501.6710, L501.48935, L501.9520, L504.2610, L3100.5440, L5500.0550, L2100.0000, L3100.3425 ####[facility] [address] [place], [place], [phone] ALT [Catalytic activity/Vol] 27 U/L Normal 13-56 [facility] Comment on above: Order Comment: 1 Performed By: #### L 3200.1100, L3300.1200, L3410.2400, L100.0100, L101.9900, L500.4050, L501.6710, L501.65671, L501.9520, L504.2610, L3100.5440, L5500.0550, L2100.0000, L3100.3425 ####[facility] [address] [place], [place], [phone] AST [Catalytic activity/Vol] 14 U/L Low 15-37 [facility] Comment on above: Order Comment: 1 Performed By: #### L 3200.1100, L3300.1200, L3410.2400, L100.0100, L101.9900, L500.4050, L501.6710, L501.23887, L501.9520, L504.2610, L3100.5440, L5500.0550, L2100.0000, L3100.3425 ####[facility] [address] [place], [place], [phone] Bilirubin [Mass/Vol] 0.40 mg/dL Normal 0.20-1.00 [facility] Comment on above: Order Comment: 1 Result Comment: For patients on eltrombopag therapy, use of Dimension [place] TBIL is not recommended. Performed By: #### L 3200.1100, L3300.1200, L3410.2400, L100.0100, L101.9900, L500.4050, L501.6710, L501.82719, L501.9520, L504.2610, L3100.5440, L5500.0550, L2100.0000, L3100.3425 ####[facility] [address] [place], [address] BUN/CRE 16.2 RATIO Normal 10-20 [facility] Comment on above: Order Comment: 1 Performed By: #### L 3200.1100, L3300.1200, L3410.2400, L100.0100, L101.9900, L500.4050, L501.6710, L501.50011, L501.9520, L504.2610, L3100.5440, L5500.0550, L2100.0000, L3100.3425 ####[facility] [address] [place], [address] CA,Total 9.0 mg/dL Normal 8.5-10.1 [facility] Comment on above: Order Comment: 1 Performed By: #### L 3200.1100, L3300.1200, L3410.2400, L100.0100, L101.9900, L500.4050, L501.6710, L501.70498, L501.9520, L504.2610, L3100.5440, L5500.0550, L2100.0000, L3100.3425 ####[facility] [address] [place], [place], [phone] Chloride [Moles/Vol] 106 mmol/L Normal 98-107 [facility] Comment on above: Order Comment: 1 Performed By: #### L 3200.1100, L3300.1200, L3410.2400, L100.0100, L101.9900, L500.4050, L501.6710, L501.57371, L501.9520, L504.2610, L3100.5440, L5500.0550, L2100.0000, L3100.3425 ####[facility] [address] [place], [place], [phone] CO2 [Moles/Vol] 29.0 mmol/L Normal 21.0-32.0 [facility] Comment on above: Order Comment: 1 Performed By: #### L 3200.1100, L3300.1200, L3410.2400, L100.0100, L101.9900, L500.4050, L501.6710, L501.39307, L501.9520, L504.2610, L3100.5440, L5500.0550, L2100.0000, L3100.3425 ####[facility] [address] [place], [place], [phone] Creatinine [Mass/Vol] 0.62 mg/dL Normal 0.55-1.02 [facility] Comment on above: Order Comment: 1 Result Comment: The validity of the calculated GFR GFRAA in patients over 70 years has not been determined. Clinical correlation is essential. Performed By: #### L 3200.1100, L3300.1200, L3410.2400, L100.0100, L101.9900, L500.4050, L501.6710, L501.31079, L501.9520, L504.2610, L3100.5440, L5500.0550, L2100.0000, L3100.3425 ####[facility] [address] [place], [place], [phone] EST GFR - AA 143 mL/min Normal >60 [facility] Comment on above: Order Comment: 1 Result Comment: Afri can Indian GFR Calc Performed By: #### L 3200.1100, L3300.1200, L3410.2400, L100.0100, L101.9900, L500.4050, L501.6710, L501.22254, L501.9520, L504.2610, L3100.5440, L5500.0550, L2100.0000, L3100.3425 ####[facility] [address] [place], [place], [phone] GAP 4 Low 5-15 [facility] Comment on above: Order Comment: 1 Performed By: #### L 3200.1100, L3300.1200, L3410.2400, L100.0100, L101.9900, L500.4050, L501.6710, L501.80558, L501.9520, L504.2610, L3100.5440, L5500.0550, L2100.0000, L3100.3425 ####[facility] [address] [place], [address] GFR/1.73 sq M.predicted among non-blacks MDRD (S/P/Bld) [Vol rate/Area] 118 mL/min/{1.73_m2} Normal >60 [facility] Comment on above: Order Comment: 1 Result Comment: Non- GFR Calc Performed By: #### L 3200.1100, L3300.1200, L3410.2400, L100.0100, L101.9900, L500.4050, L501.6710, L501.94323, L501.9520, L504.2610, L3100.5440, L5500.0550, L2100.0000, L3100.3425 ####[facility] [address] [place], [address] Globulin (S) [Mass/Vol] 3.5 g/dL Normal 2.2-4.2 [facility] Comment on above: Order Comment: 1 Performed By: #### L 3200.1100, L3300.1200, L3410.2400, L100.0100, L101.9900, L500.4050, L501.6710, L501.55132, L501.9520, L504.2610, L3100.5440, L5500.0550, L2100.0000, L3100.3425 ####[facility] [address] [place], [address] Glucose [Mass/Vol] 85 mg/dL Normal 74-106 [facility] Comment on above: Order Comment: 1 Performed By: #### L 3200.1100, L3300.1200, L3410.2400, L100.0100, L101.9900, L500.4050, L501.6710, L501.27079, L501.9520, L504.2610, L3100.5440, L5500.0550, L2100.0000, L3100.3425 ####[facility] [address] [place], [address] Potassium [Moles/Vol] 3.8 mmol/L Normal 3.5-5.1 [facility] Comment on above: Order Comment: 1 Performed By: #### L 3200.1100, L3300.1200, L3410.2400, L100.0100, L101.9900, L500.4050, L501.6710, L501.94970, L501.9520, L504.2610, L3100.5440, L5500.0550, L2100.0000, L3100.3425 ####[facility] [address] [place], [address] Sodium [Moles/Vol] 138 mmol/L Normal 136-145 [facility] Comment on above: Order Comment: 1 Performed By: #### L 3200.1100, L3300.1200, L3410.2400, L100.0100, L101.9900, L500.4050, L501.6710, L501.63992, L501.9520, L504.2610, L3100.5440, L5500.0550, L2100.0000, L3100.3425 ####[facility] [address] [place], [place], [phone] T PROT 7.5 g/dL Normal 6.4-8.2 [facility] Comment on above: Order Comment: 1 Performed By: #### L 3200.1100, L3300.1200, L3410.2400, L100.0100, L101.9900, L500.4050, L501.6710, L501.64197, L501.9520, L504.2610, L3100.5440, L5500.0550, L2100.0000, L3100.3425 ####[facility] [address] [place], [place], [phone] Urea nitrogen [Mass/Vol] 10 mg/dL Normal 7-18 [facility] Comment on above: Order Comment: 1 Performed By: #### L 3200.1100, L3300.1200, L3410.2400, L100.0100, L101.9900, L500.4050, L501.6710, L501.26276, L501.9520, L504.2610, L3100.5440, L5500.0550, L2100.0000, L3100.3425 ####[facility] [address] [place], [address] Erythrocyte Sed Rateon 03-09 -2023 SED RATE 3 mm/hr Normal 0-30 [facility] Comment on above: Performed By: #### L 3200.1100, L3300.1200, L3410.2400, L100.0100, L101.9900, L500.4050, L501.6710, L501.94013, L501.9520, L504.2610, L3100.5440, L5500.0550, L2100.0000, L3100.3425 ####[facility] [address] [place], [address] Free T3on 03-09-2024 Free T3 [Mass/Vol] 2.4 pg/mL Normal 2.18-3.98 [facility] Comment on above: Order Comment: 1 Performed By: #### L 3200.1100, L3300.1200, L3410.2400, L100.0100, L101.9900, L500.4050, L501.6710, L501.88916, L501.9520, L504.2610, L3100.5440, L5500.0550, L2100.0000, L3100.3425 ####[facility] [address] [place], [address] Gastroenterology Visit Repor ton 03-09-2024 Gastroenterology Visit Report [facility] [address] [place] [address] OFFICE VISIT Date of Service: 03/09/24 MR#: [id number] Acct: [id number] Name: MARKUSDARI CELESTE Rep #: [id number] : 1990 Provider: PERLITA castellanos Age/Sex: 33/F [place] [facility] [place]: Signed Intake Vital Signs 01/31/24 15:05 Height 5 ft 1 in Weight: 139 lb BMI 26.2 BP 118/78 Blood Pressure Location Lt brachial Position Sitting Respiration 16 Pulse 100 Pulse Source Monitor Temp 98.4 F Temp Source Temporal Pulse Oximetry (%) 97 Oxygen Delivery Method room air Intake Visit Reasons: Acid reflux Chief Complaint: severe burning in stomach and esophagus daily 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 Had a colonoscopy before a long time ago, results were IBS. Struggles with constipation miralax helps. Doesn't matter what she eats or drinks, her stomach and esophagus burn daily. Has BM a few times a week, stools are hard. Takes miralax every other day because taking it daily caused loose stools. No blood in stool that she is aware of. [facility] Medical History (Updated 03/09/24 @ 13:03 by PERLITA Vazquez) IBS (irritable bowel syndrome) Maxillary sinusitis Effusion, left knee Diabetes PTSD (post-traumatic stress disorder) Low iron Back pain Migraine headache History of IBS Sleep apnea Asthma Shortness of breath on exertion Leg cramps Hypertension Adopted ASCUS with positive high risk HPV Pelvic pain Hypersomnia Rectal bleeding Anxiety and depression Spontaneous HPV test positive Acute appendicitis GERD (gastroesophageal reflux disease) Irregular periods Obesity Scoliosis Chronic back pain Preeclampsia Surgical History Status post tubal ligation Status post bilateral salpingectomy History of History of hip surgery H/O adenoidectomy delivery delivered S/P laparoscopic appendectomy ( 05/06/18) S/P right knee arthroscopy History of tonsillectomy H/O knee surgery Hx of breast reduction, elective Family History Mother Depression Aunt Breast cancer Multiple sclerosis Grandmother Diabetes Uncle Hyperlipemia Menieres disease Depression Grandfather Heart disease Myocardial infarction CVA (cerebral vascular accident) Sister Crohn's disease half sister Other Hypertension Social History household members: family and children housing: house current occupational status: unemployed Smoking Status: Former smoker how long ago did patient quit smokin alcohol intake: current alcohol intake frequency: holidays/special occasions only substance use type: does not use caffeine: No what type of physical activity do you participate in: none seatbelt use: always do you feel safe at home: Yes additional social history: Single HPI HPI Chief Complaint: severe burning in stomach and esophagus daily Details: DARI APARICIO, is a 33 F who presents to the office today for establishment with [facility] for complaints of IBS, nausea and severe heartburn. She reports having had gestational DM in 2020, is on semaglutide for weight loss, and is being treated currently for latent TB with daily isoniazid. She denies difficulty chewing and swallowing, cough, reflux, abdominal pain, diarrhea, hematochezia and melena. She reports nausea, vomiting, heartburn not related to any ingestion, sight or smell of food. She states the symptoms have become more severe after starting the medicine to treat her TB. Sh eis forced to take isoniazid a HS to avoid being nauseous at work. She reports taking Miralax for constipation every other day for firm BMs, taking Miralax daily causes liquid stools. She states she was told that she had IBS years ago, denies food allergy testing or specific information regarding immunology for IBD. She reports that she has an aunt and a half sister that both have Crohn's disease and is concerned for this as well. ROS Const Constitutional: Positive for body ache, fatigue and decreased energy; No chills or fever(s) Eyes Eyes: No change in vision ENT ENT: No abnormal hearing or difficulty swallowing Resp Respiratory: No cough Cardio Cardiology: No chest pain at rest, chest pain with exertion or leg pain with exertion Ga (more content not included)... Normal [facility] LDHon 03-09-2024 LDH 162 U/L Normal 84-246 [facility] Comment on above: Order Comment: 1 Performed By: #### L 3200.1100, L3300.1200, L3410.2400, L100.0100, L101.9900, L500.4050, L501.6710, L501.28189, L501.9520, L504.2610, L3100.5440, L5500.0550, L2100.0000, L3100.3425 ####[facility] [address] [place], [place], [phone] Thyroid Stim Hormone (TSH)on 03-09-2024 TSH 0.434 uIU/mL Normal 0.358-3.740 [facility] Comment on above: Order Comment: 1 Performed By: #### L 3200.1100, L3300.1200, L3410.2400, L100.0100, L101.9900, L500.4050, L501.6710, L501.31038, L501.9520, L504.2610, L3100.5440, L5500.0550, L2100.0000, L3100.3425 ####[facility] [address] [place], [address] 36on 02-27-2024 36 Ozempic is approved The next yaya is mandatory Thank you Normal [facility] 36 Last OV 7-19 Next OV 11-15. Refill request pended. Thank you! Normal [facility] Basic Metabolic Profile (BMP )on 02-01-2024 BUN/CRE 13.5 RATIO Normal 10-20 [facility] Comment on above: Performed By: #### L 500.2500, L500.3400, L501.2450 #### [facility] [address] [place], [address] CA,Total 9.1 mg/dL Normal 8.5-10.1 [facility] Comment on above: Performed By: #### L 500.2500, L500.3400, L501.2450 #### [facility] [address] [place], [address] Chloride [Moles/Vol] 104 mmol/L Normal 98-107 [facility] Comment on above: Performed By: #### L 500.2500, L500.3400, L501.2450 #### [facility] [address] [place], [address] CO2 [Moles/Vol] 31.0 mmol/L Normal 21.0-32.0 [facility] Comment on above: Performed By: #### L 500.2500, L500.3400, L501.2450 #### [facility] [address] [place], [address] Creatinine [Mass/Vol] 0.74 mg/dL Normal 0.55-1.02 [facility] Comment on above: Result Comment: The validity of the calculated GFR GFRAA in patients over 70 years has not been determined. Clinical correlation is essential. Performed By: #### L 500.2500, L500.3400, L501.2450 #### [facility] [address] [place], [address] EST GFR - AA 116 mL/min Normal >60 [facility] Comment on above: Result Comment: Afri can Indian GFR Calc Performed By: #### L 500.2500, L500.3400, L501.2450 #### [facility] [address] [place], [address] GAP 4 Low 5-15 [facility] Comment on above: Performed By: #### L 500.2500, L500.3400, L501.2450 #### [facility] [address] [place], [address] GFR/1.73 sq M.predicted among non-blacks MDRD (S/P/Bld) [Vol rate/Area] 96 mL/min/{1.73_m2} Normal >60 [facility] Comment on above: Result Comment: Non- GFR Calc Performed By: #### L 500.2500, L500.3400, L501.2450 #### [facility] [address] [place], [address] Glucose [Mass/Vol] 107 mg/dL High 74-106 [facility] Comment on above: Result Comment: Fast ing Glucose result from 100 to 125 mg/dL suggests IMPAIRED HOMEOSTASIS per A.D.A. criteria. Performed By: #### L 500.2500, L500.3400, L501.2450 #### [facility] [address] [place], [address] Potassium [Moles/Vol] 4.6 mmol/L Normal 3.5-5.1 [facility] Comment on above: Performed By: #### L 500.2500, L500.3400, L501.2450 #### [facility] [address] [place], [address] Sodium [Moles/Vol] 139 mmol/L Normal 136-145 [facility] Comment on above: Performed By: #### L 500.2500, L500.3400, L501.2450 #### [facility] [address] [place], [address] Urea nitrogen [Mass/Vol] 10 mg/dL Normal 7-18 [facility] Comment on above: Performed By: #### L 500.2500, L500.3400, L501.2450 #### [facility] [address] [place], [address] Lipaseon 02-01-2024 Lipase [Catalytic activity/Vol] 53 U/L Normal 13-75 [facility] Comment on above: Result Comment: Roney small note: LIPASE revised reference range effective 22. New Lipase methodology. Expected to produce lower values than the previous assay method. NEW Reference Range: 13 - 75 U/L Performed By: #### L 100.0100, L500.2500 #### [facility] [address] [place], [address] Liver Profileon 02-01-2024 Albumin [Mass/Vol] 3.7 g/dL Normal 3.2-5.0 [facility] Comment on above: Performed By: #### L 500.2500, L500.3400, L501.2450 #### [facility] [address] [place], [address] ALK P 58 U/L Normal 45-117 [facility] Comment on above: Performed By: #### L 500.2500, L500.3400, L501.2450 #### [facility] [address] [place], [address] ALT [Catalytic activity/Vol] 24 U/L Normal 13-56 [facility] Comment on above: Performed By: #### L 500.2500, L500.3400, L501.2450 #### [facility] [address] [place], [address] AST [Catalytic activity/Vol] 12 U/L Low 15-37 [facility] Comment on above: Performed By: #### L 500.2500, L500.3400, L501.2450 #### [facility] [address] [place], [address] Bilirubin [Mass/Vol] 0.20 mg/dL Normal 0.20-1.00 [facility] Comment on above: Result Comment: For patients on eltrombopag therapy, use of Dimension [place] TBIL is not recommended. Performed By: #### L 500.2500, L500.3400, L501.2450 #### [facility] [address] [place], [address] Bilirubin.direct [Mass/Vol] 0.10 mg/dL Normal 0.00-0.30 [facility] Comment on above: Performed By: #### L 500.2500, L500.3400, L501.2450 #### [facility] [address] [place], [address] Globulin (S) [Mass/Vol] 3.4 g/dL Normal 2.2-4.2 [facility] Comment on above: Performed By: #### L 500.2500, L500.3400, L501.2450 #### [facility] [address] [place], [address] T PROT 7.1 g/dL Normal 6.4-8.2 [facility] Comment on above: Performed By: #### L 500.2500, L500.3400, L501.2450 #### [facility] [address] [place], [address] Chest PA and Lateralon 01-30 Chest PA and Lateral [facility] Services [address] [place] [address] Chest PA and Lateral MR#: [id number] Acct: [id number] Name: DARI APARICIO Rep #: [id number] : 1990 F 33 From: Ford douglas MD PCP: Renea Bassett NP-C Status: REG CLI Study: Chest PA and Lateral Date of Exam: 01/31/24 Exam# [id number] Ordering Dr: [place] [id number] STUDY: X-RAY CHEST REASON FOR EXAM: Female, 33 years old. cough TECHNIQUE: PA and lateral views of the chest. COMPARISON: June 02, 2023 FINDINGS: The lungs are clear and expanded. There is no demonstrated pleural abnormality. Normal size heart. Normal mediastinum and vamsi. Normal visualized pulmonary arteries. Normal visualized aortic arch and descending thoracic aorta. Normal visualized thoracic spine. Normal visualized ribs, clavicles, and shoulders. There is no demonstrated abnormality of the visualized soft tissue structures of the upper abdomen. RAD/Chest PA and Lateral IMPRESSION: Normal x-ray examination of the chest. Electronically Signed: Ford Sellers MD at 15:31 EDT , CC: COMPANY DRIVER-C Renea Bassett; CAROLYN Roy Patient Care Specialist: Signed Normal [facility] Visit Reporton 0 01-31-2024 Urgent Care Visit Report [facility] [address], [address] [place] [address] OFFICE VISIT Date of Service: 01/31/24 MR#: [id number] Acct: [id number] Name: DARI APARICIO Rep #: [id number] : 1990 Provider: CAROLYN Roy Age/Sex: 33/F Location: [facility] Status: Signed Intake Vital Signs 01/13/24 11:08 01/31/24 15:05 Height 5 ft 1 in 5 ft 1 in Weight: 141 lb 139 lb BMI 26.6 26.2 BP 96/62 118/78 Blood Pressure Location Lt brachial Lt brachial Position Sitting Sitting Respiration 16 16 Pulse 77 100 Pulse Source Monitor Monitor Temp 97.3 F L 98.4 F Temp Source Temporal Temporal Pulse Oximetry (%) 98 97 Oxygen Delivery Method room air room air Intake Visit Reasons: COUGH/WANTS CHEST XRAY Chief Complaint: cough 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 Required: No Accompanied by: Daughter Is patient in pain?: Yes Allergies amoxicillin (From Augmentin) Adverse Reaction (Mild, Verified 01/31/24 15:06) Vomiting clavulanic acid (From Augmentin) Adverse Reaction (Mild, Verified 01/31/24 15:06) Vomiting naproxen Adverse Reaction (Verified 01/31/24 15:06) Other varenicline tartrate (From Chantix) Adverse Reaction (Verified 01/31/24 15:06) Other Medications ???Medication ???Instructions ???Recorded ???Confirmed ???Type multivitamin 1 tab PO DAILY 12/20/22 01/31/24 History semaglutide 0.25 mg or 0.5 mg (2 mg subcut 12/20/22 01/31/24 History mg/3 mL) subcutaneous pen injector (Ozempic) biotin 1 mg capsule 1 mg PO DAILY 10/26/23 01/31/24 History cyclobenzaprine 7.5 mg tablet 7.5 mg PO QHS PRN muscle spasm #20 01/13/24 01/31/24 Rx tabs desvenlafaxine succinate 50 mg 50 mg PO DAILY #30 tabs 01/13/24 01/31/24 Rx tablet,extended release 24 hr isoniazid 100 mg tablet 300 mg PO DAILY 01/13/24 01/31/24 History ondansetron 4 mg disintegrating 4 mg PO Q6H PRN nausea and 01/13/24 01/31/24 Rx tablet vomiting #30 tabs pyridoxine (vitamin B6) 100 mg 100 mg PO DAILY 01/13/24 01/31/24 History tablet PFSH Medical History Maxillary sinusitis Effusion, left knee Diabetes PTSD (post-traumatic stress disorder) Low iron Back pain Migraine headache History of IBS Sleep apnea Asthma Shortness of breath on exertion Leg cramps Hypertension Adopted ASCUS with positive high risk HPV Pelvic pain Hypersomnia Rectal bleeding Anxiety and depression Spontaneous HPV test positive Acute appendicitis GERD (gastroesophageal reflux disease) Irregular periods Obesity Scoliosis IBS (irritable bowel syndrome) Chronic back pain Preeclampsia Surgical History Status post tubal ligation Status post bilateral salpingectomy History of History of hip surgery H/O adenoidectomy delivery delivered S/P laparoscopic appendectomy ( 05/06/18) S/P right knee arthroscopy History of tonsillectomy H/O knee surgery Hx of breast reduction, elective Family History Mother Depression Aunt Breast cancer Multiple sclerosis Grandmother Diabetes Uncle Hyperlipemia Menieres disease Depression Grandfather Heart disease Myocardial infarction CVA (cerebral vascular accident) Sister Crohn's disease half sister Other Hypertension Social History household members: family and children housing: house current occupational status: unemployed Smoking Status: Former smoker how long ago did patient quit smokin alcohol intake: current alcohol intake frequency: holidays/special occasions only substance use type: does not use caffeine: No what type of physical activity do you participate in: none seatbelt use: always do you feel safe at home: Yes additional social history: Single HPI HPI Chief Complaint: cough Details: DARI APARICIO, is a 33 F who presents to the office today for follow-up stating she has persistent cough though overall has improved over the course the last 3 to 5 days. Patient notes having been diagnosed with COVID-19 approximately a week and a half ago and the only remaining symptom is a persistent cough. Additionally, she states having had a positive PPD approximately 2 [address] her [address] of employment and therefore is currently on p.o. isoniazid for treatment, stating she is tolerating well. Current without complaints of fever, chills, sweats, lightheadedness/dizzine ss, nausea/vomiting, or chest pressure/shortness of breath/dyspnea on exertion. Nonetheless she is requesting a chest x-ray to ensure she does not have pneumonia. Declining POC screening. No other associated symptoms and no other alleviating/aggravating fact (more content not included)... Normal [facility] [id number] 01-16-2024 [id number] Pt would like a refi ll Ozempic 1mg. Pended. Thanks! Normal [facility] HSV 1 AND 2 IgGon 01-15-2024 HSV 1 IgG 29.70 index High 0.00-0.90 [facility] Comment on above: Result Comment: Nega tive <0.91 Equivocal 0.91 - 1.09 Positive >1.09 Note: Negative indicates no antibodies detected to HSV-1. Equivocal may suggest early infection. If clinically appropriate, retest at later date. Positive indicates antibodies detected to HSV-1. Performed By: #### L 100.0100, L500.2500 #### [facility] [address] [place], [address] HSV 2 IgG 2.32 index High 0.00-0.90 [facility] Comment on above: Result Comment: Nega tive <0.91 Equivocal 0.91 - 1.09 Positive >1.09 HSV-2 Antibody Interpretation: Current guidelines and recommendations do not recommend routine screening for HSV-2 in asymptomatic individuals, including those that are . A negative antibody result indicates no detectable antibodies to HSV-2 were found. If recent exposure is suspected, retest in 4 to 6 weeks. Equivocal samples should be retested in 4 to 6 weeks. A positive result indicates the presence of detectable IgG antibody to HSV-2. FALSE POSITIVE RESULTS MAY OCCUR. Repeat testing, or testing by a different method, may be indicated in some settings (e.g. patients with low likelihood of HSV infection). If clinically appropriate, retest 4 to 6 weeks later. HSV-2 IgG antibody testing results should be clinically correlated. Performed at: [address] [id number] Cigarette Package Examiner: Kenney Russo PhD, Phone: [phone] Performed By: #### L 100.0100, L500.2500 #### [facility] [address] [place], [address] Basic Metabolic Profile (BMP )on 01-13-2024 BUN/CRE 20.3 RATIO High 10-20 [facility] Comment on above: Performed By: #### L 100.0100, L500.2500 #### [facility] [address] [place], [address] CA,Total 9.3 mg/dL Normal 8.5-10.1 [facility] Comment on above: Performed By: #### L 100.0100, L500.2500 #### [facility] [address] [place], [address] Chloride [Moles/Vol] 104 mmol/L Normal 98-107 [facility] Comment on above: Performed By: #### L 100.0100, L500.2500 #### [facility] [address] [place], [address] CO2 [Moles/Vol] 30.0 mmol/L Normal 21.0-32.0 [facility] Comment on above: Performed By: #### L 100.0100, L500.2500 #### [facility] [address] [place], [address] Creatinine [Mass/Vol] 0.64 mg/dL Normal 0.55-1.02 [facility] Comment on above: Result Comment: The validity of the calculated GFR GFRAA in patients over 70 years has not been determined. Clinical correlation is essential. Performed By: #### L 100.0100, L500.2500 #### [facility] [address] [place], [address] EST GFR - AA 137 mL/min Normal >60 [facility] Comment on above: Result Comment: Afri can Indian GFR Calc Performed By: #### L 100.0100, L500.2500 #### [facility] [address] [place], [address] GAP 6 Normal 5-15 [facility] Comment on above: Performed By: #### L 100.0100, L500.2500 #### [facility] [address] [place], [address] GFR/1.73 sq M.predicted among non-blacks MDRD (S/P/Bld) [Vol rate/Area] 113 mL/min/{1.73_m2} Normal >60 [facility] Comment on above: Result Comment: Non- GFR Calc Performed By: #### L 100.0100, L500.2500 #### [facility] [address] [place], [address] Glucose [Mass/Vol] 91 mg/dL Normal 74-106 [facility] Comment on above: Performed By: #### L 100.0100, L500.2500 #### [facility] [address] [place], [address] Potassium [Moles/Vol] 3.9 mmol/L Normal 3.5-5.1 [facility] Comment on above: Performed By: #### L 100.0100, L500.2500 #### [facility] [address] [place], [address] Sodium [Moles/Vol] 140 mmol/L Normal 136-145 [facility] Comment on above: Performed By: #### L 100.0100, L500.2500 #### [facility] [address] [place], [address] Urea nitrogen [Mass/Vol] 13 mg/dL Normal 7-18 [facility] Comment on above: Performed By: #### L 100.0100, L500.2500 #### [facility] [address] [place], [address] Ferritinon 01-13-2024 Ferritin [Mass/Vol] 10 ng/mL Normal 8-252 [facility] Comment on above: Performed By: #### L 100.0100, L500.2500 #### [facility] [address] [place], [address] HIV - WCHon 01-13-2024 HIV Non-Reactive Normal Nonreactive [facility] Comment on above: Order Comment: Reaso n for Exam: std screen Performed By: #### L 100.0100, L500.2500 #### [facility] [address] [place], [address] HSV 1 AND 2 IgGon 01-13-2024 HSV 1 IgG Normal [facility] Comment on above: Result Comment: DUPL ICATE Performed By: #### L 3400.1610 ####[facility] [address] [place], [address] HSV 2 IgG Normal [facility] Comment on above: Result Comment: DUPL ICATE Performed By: #### L 3400.1610 ####[facility] [address] [place], [address] Hepatitis B Surface Antigeno n 01-13-2024 HEP B Surf Ag Non-Reactive Normal Nonreactive [facility] Comment on above: Order Comment: Reaso n for Exam: std screen Performed By: #### L 100.0100, L500.2500 #### [facility] [address] [place], [address] Hepatitis C Antibodyon 01-12 Hepatitis C AB Non-Reactive Normal Nonreactive [facility] Comment on above: Order Comment: Reaso n for Exam: std screen Result Comment: Non Reactive: < 0.8 Equivocal: >/= 0.8 to < 1.0 Reactive: >/= 1.0 The CDC requires that a reactive/equivocal HCV antibody result be sent out for confirmation. HCV Quant by PCR testing. Performed By: #### L 100.0100, L500.2500 #### [facility] [address] [place], [address] Internal Medicine Office Vis iton 01-13-2024 Internal Medicine Office Visit [facility] [address] [place] [address] [place] [address] OFFICE VISIT Date of Service: 01/13/24 MR#: [id number] Acct: [id number] Name: DARI APARICIO Rep #: [id number] : 1990 Provider: PERLITA avnia Age/Sex: 33/F [place] [facility] [place] Status: Signed with Addenda ADDENDUM by PERLITA Bassett on 01/13/24 at 1309 HPI Details: DARI APARICIO, is a 33 F who presents to the office today for Assessment and Plan Assessment and Plan (1) Depression with anxiety: Status: Acute (2) Fatigue: Status: Acute Qualifiers: Fatigue type: unspecified Qualified Code(s): R53.83 - Other fatigue (3) Bilateral sciatica: Status: Acute Orders: Orders Iron Today N92.6 - Irregular menstruation, unspecified Ferritin Today N92.6 - Irregular menstruation, unspecified Iron Binding Capacity,Total Today N92.6 - Irregular menstruation, unspecified Basic Metabolic Profile (BMP) Today G47.10 - Hypersomnia, unspecified, R25.2 - Cramp and spasm Medications: New cyclobenzaprine 7.5 mg PO QHS PRN 20 tabs 0RF muscle spasm Changed From desvenlafaxine succinate ER (Pristiq) 25 mg PO DAILY 30 tabs 0RF To desvenlafaxine succinate ER 50 mg PO DAILY 30 tabs 0RF Refilled ondansetron 4 mg PO Q6H PRN 30 tabs 0RF nausea and vomiting Plan Patient to call with update in 2 to 4 weeks, we will avoid additional appointment so soon as she has multiple appointments is taking care of her son's needs. Patient to return to office in 3 to 4 months for follow-up. This note was generated with Viroblock dictation software. It may contain incorrect words, spelling, and punctuation that were not noted in checking the note before signing. I spent a total of 29 minutes on the date of the service which included preparing to see the patient, [id number] patient care, completing clinical documentation, obtaining and/or reviewing separately obtained history. 01/13/24 1309 Date Renea Bassett cc: * Signed Intake Vital Signs 12/01/23 10:58 01/13/24 11:08 Height 5 ft 1 in 5 ft 1 in Weight: 145 lb 141 lb BMI 27.3 26.6 BP 104/70 96/62 Blood Pressure Location Lt brachial Lt brachial Position Sitting Sitting Respiration 16 16 Pulse 110 H 77 Pulse Source Monitor Monitor Temp 98.7 F 97.3 F L Temp Source Temporal Temporal Pulse Oximetry (%) 99 98 Oxygen Delivery Method room air room air Intake Visit Reasons: 7 WK FU Chief Complaint: Fatigue Accompanied by: Self Is patient in pain?: Yes (Low back and BLE) Pain scale (1-10): 2 Allergies amoxicillin (From Augmentin) Adverse Reaction (Mild, Verified 01/13/24 11:03) Vomiting clavulanic acid (From Augmentin) Adverse Reaction (Mild, Verified 01/13/24 11:03) Vomiting naproxen Adverse Reaction (Verified 01/13/24 11:03) Other varenicline tartrate (From Chantix) Adverse Reaction (Verified 01/13/24 11:03) Other Medications ???Medication ???Instructions ???Recorded ???Confirmed ???Type multivitamin 1 tab PO DAILY 12/20/22 01/13/24 History semaglutide 0.25 mg or 0.5 mg (2 mg subcut 12/20/22 01/13/24 History mg/3 mL) subcutaneous pen injector (Ozempic) biotin 1 mg capsule 1 mg PO DAILY 10/26/23 01/13/24 History cyclobenzaprine 7.5 mg tablet 7.5 mg PO QHS PRN muscle spasm #20 01/13/24 01/13/24 Rx tabs desvenlafaxine succinate 50 mg 50 mg PO DAILY #30 tabs 01/13/24 01/13/24 Rx tablet,extended release 24 hr isoniazid 100 mg tablet 300 mg PO DAILY 01/13/24 01/13/24 History ondansetron 4 mg disintegrating 4 mg PO Q6H PRN nausea and 01/13/24 01/13/24 Rx tablet vomiting #30 tabs pyridoxine (vitamin B6) 100 mg 100 mg PO DAILY 01/13/24 01/13/24 History tablet PFSH Medical History Maxillary sinusitis Effusion, left knee Diabetes PTSD (post-traumatic stress disorder) Low iron Back pain Migraine headache History of IBS Sleep apnea Asthma Shortness of breath on exertion Leg cramps Hypertension Adopted ASCUS with positive high risk HPV Pelvic pain Hypersomnia Rectal bleeding Anxiety and depression Spontaneous HPV test positive Acute appendicitis GERD (gastroesophageal reflux disease) Irregular periods Obesity Scoliosis IBS (irritable bowel syndrome) Chronic back pain Preeclampsia Surgical History Status post tubal ligation Status post bilateral salpingectomy History of History of hip surgery H/O adenoidectomy delivery delivered S/P laparoscopic appendectomy ( 05/06/18) S/P right knee arthroscopy History of tonsillectomy H/O knee surgery Hx of breast reduction, elective Family History (Reviewed 01/13/24 @ (more content not included)... Normal [facility] Ironon 01-13-2024 Iron [Mass/Vol] 84 ug/dL Normal 50-170 [facility] Comment on above: Performed By: #### L 100.0100, L500.2500 #### [facility] [address] [place], [place], [id number] Iron Binding Capacity,Totalo n 01-13-2024 TIBC 320 ug/dL Normal 250-450 [facility] Comment on above: Performed By: #### L 100.0100, L500.2500 #### [facility] [address] [place], [place], [address] L509.8000on 01-13-2024 Syphilis Abs Non-Reactive Normal [facility] Comment on above: Order Comment: Reaso n for Exam: std screen Performed By: #### L 100.0100, L500.2500 #### [facility] [place], [address] [id number] 01-04-2024 [id number] Please reach out to patient to reschedule. Thanksa! [facility] 36on 01-04-2024 36 Patient contact made via telephone. Rescheduled patient appointment with Dr. Pierre in [place] to February 02 at1:10pm. Pt agreed and confirmed. [facility] CNOVon 07-22-2023 CNOV Office Visit ([facility]FLD) DARI APARICIO ([id number]) 1990 F Date Time Provider Department 07/22/23 11:40 AM LORY DEL ROSARIO [facility] During your visit today, we recorded the following information about you: Lory Del Rosario DO 07/22/2023 12:15 PM Signed Established Patient [...] is seen and examined by Dr. Del Rosario and the following reflects his/her service. Scribed by Mally Carson CMA. I agree with the Chief Complaint, ROS, and Past Histories independently gathered by the clinical support merchandiser and the remaining scribed note accurately describes my personal service to the patient. Lory Del Rosario DO Allergies As of Date: 07/22/2023 Noted Allergy Reaction MITE EXTRACT 07/13/2018 14 - Other: See Comments CHANTIX (VARENICLINE) 12/08/2009 14 - Other: See Comments Comments: Vomiting, diarrhea, bad dreams, restlessness, insomnia NAPROXEN 08/21/2010 14 - Other: See Comments Comments: Broke out in sweats, nightmares and all did was sleep Date Reviewed: 07/22/2023 Reviewed by: ALEA Carson Evanthia - Fully Assessed Primary Visit Diagnosis:Acne vulgaris [L70.0] Other Visit Diagnoses:Post-inflamma tory hyperpigmentation [L81.0] Generalized hyperhidrosis [R61] Order(s):spironolactone (ALDACTONE) [...] HCl (ADIPEX-P ORAL) Take by mouth. - Hmrswsfgrhmcz-Ic-Ncgc-M inerals (MULTIPLE VITAMIN, WOMENS) tab Take 1 tablet [...] HFA (PROVENTIL (more content not included)... Normal [facility] Arnel 07-22-2023 CELESTINA Telephone (STCAD) MARKUSDARI Grajeda Shaila ([id number]) 1990 F Date Time Provider Department 07/22/23 LORY DEL ROSARIO During your visit today, we recorded the following information about you: ALEA Carson Evanthia 07/22/2023 12:37 PM Signed Called in Drysol and Spironolactone from today's visit to the [facility] pharmacy in [place]. Allergies As of Date: 07/22/2023 Noted Allergy Reaction MITE EXTRACT 07/13/2018 14 - Other: See Comments CHANTIX (VARENICLINE) 12/08/2009 14 - Other: See Comments Comments: Vomiting, diarrhea, bad dreams, restlessness, insomnia NAPROXEN 08/21/2010 14 - Other: See Comments Comments: Broke out in sweats, nightmares and all did was sleep Date Reviewed: 07/22/2023 Reviewed by: ALEA Carson Evanthia - Fully Assessed Reason for Visit: [...] HCl (ADIPEX-P ORAL) Take by mouth. - Scmbacvkthzfr-Tb-Bmrw-M inerals (MULTIPLE VITAMIN, WOMENS) tab Take 1 tablet [...] diarrhea [K58.*01/07/2016 01/07/2016 Encounter Status:Closed by ALEA CARSON EVANTHIA on 07/22/23 Normal [facility] Absolute lymphocyte countOrd ered By: Es Villarreal on 06-16-2023 Lymphocytes Auto (Unsp spec) [#/Vol] 2.29 10*3/uL 0.83-4.51 [facility] Automated lymphocyte count a s percentage of total leukocytesOrdered By: Es Villarreal on 06-16-2023 Lymphocytes/100 WBC Auto (Unsp spec) 50.6 % 19-41 [facility] Basophil percentageOrdered B y: Es Villarreal on 06-16-2023 Basophils/100 WBC (Bld) 0.9 % 0-1 [facility] Eosinophils/100 WBC (Bld) 1.1 % 0-5 [facility] Hemoglobin (Bld) [Mass/Vol] 11.9 g/dL 12.0-15.0 [facility] Monocytes/100 WBC (Bld) 7.7 % 0-10 [facility] Neutrophils (Bld) [#/Vol] 1.8 10*3/uL 2.0-7.7 [facility] Neutrophils/100 WBC (Bld) 39.7 % 47-70 [facility] WBC (Bld) [#/Vol] 4.5 10*3/uL 4.4-11.0 [facility] Determination of erythrocyte mean corpuscular volume (MCV)Ordered By: Es Villarreal on 06-16-2023 MCV (RBC) [Entitic vol] 87.4 fL 81-99 [facility] Erythrocyte distribution wid th ratioOrdered By: Es Villarreal on 06-16-2023 Erythrocyte distribution width (RBC) [Ratio] 13.0 % 11.6-14.6 [facility] Erythrocyte distribution wid th standard deviationOrdered By: Es Villarreal on 06-16-2023 Erythrocyte distribution width (RBC) [Entitic vol] 41.4 fL 35.1-43.9 [facility] Hematocrit Auto (Bld) [Volum e fraction]Ordered By: Es Villarreal on 06-16-2023 Hematocrit (Bld) [Volume fraction] 35.3 % 37-47 [facility] Immature granulocytes/100 WB C Auto (Bld)Ordered By: Es Villarreal on 06-16-2023 Immature granulocytes/100 WBC (Bld) 0.000 % 0.0-0.9 [facility] Comment on above: IG% - Immature Granu locytes (promyelocytes, myelocytes and metamyelocytes) > 1% indicates that a LEFT SHIFT is Present. Laboratory - Chemistry and C hemistry - challengeOrdered By: Es Villarreal on 06-16-2023 Ferritin [Mass/Vol] 13 ng/mL 8-252 [facility] - Hematology and Cell countsOrdered By: Es Villarreal on 06-16-2023 MCH (RBC) [Entitic mass] 29.5 pg 27.0-32.0 [facility] MCHC (RBC) [Mass/Vol] 33.7 g/dL 32-36 [facility] Nucleated RBC/100 WBC (Bld) [Ratio] 0 % 0-5 [facility] Platelets (Bld) [#/Vol] 356 10*3/uL 150-450 [facility] No Panel InformationOrdered By: Es Villarreal on 06-16-2023 Total Iron Binding Capacity 316 ug/dL 250-450 [facility] Platelet mean volume Bryan-Ec ker (Bld) [Entitic vol]Ordered By: Es Villarreal on 06-16-2023 Platelet mean volume (Bld) [Entitic vol] 9.0 fL 6.2-12.0 [facility] RBC Auto (Bld) [#/Vol]Ordere d By: Es Villarreal on 06-16-2023 RBC (Bld) [#/Vol] 4.04 10*6/uL 4.2-5.4 [facility] Cervical or vaginal specimen microscopic examination by liquid based cytology (reported as document)Ordered By: Es Villarreal on 06-01-2023 Cytology report Cyto stain.thin prep Doc (Cvx/Vag) Comment . [facility] Comment on above: Criteria not met, HP V Genotype not performed.Performed at: - [facility], [place], [place] [id number] Director: Jana Roberson MD, Phone: [phone] at: =G - [facility] [address] [place] [id number] Director: Jana Roberson MD, Phone: [phone] Cervical or vagninal specime n microscopic examination by cytology stain (reported asOrdered By: Es Villarrela on 06-01-2023 Cytology report Cyto stain Doc (Cvx/Vag) Comment . [facility] Comment on above: The Pap smear is a s creening test designed to aid in thedetection of premalignant and malignant conditions of theuterine cervix. It is not a diagnostic procedure andshould not be used as the sole means of detecting cervicalcancer. Both false-positive and false-negative reports dooccur. Detection in cervical specim en of any of human papilloma virus (HPV) 16, 18, 31, 33,Ordered By: Es Villarreal on 06-01-2023 HPV 16+18+31+33+35+39+45+51 +52+56+58+59+66+68 DNA Probe+sig amp Ql (Cvx) Negative Negative [facility] Comment on above: This nucleic acid am plification test detects fourteen high-risk HPV types (16,18,31,33,35,39,45,51,52,56,58,59,66,68)without differentiation. Laboratory - CytologyOrdered By: Es Villarreal on 06-01-2023 Cryptoanalysis Teacher Cyto stain Nom (Cvx/Vag) [ID] Comment . [facility] Comment on above: Latoya Cotto, Cyto technologist (ASCP) Laboratory - Miscellaneous t estsOrdered By: Es Villarreal on 06-01-2023 Service comment (Unsp spec) [Interp] Comment . [facility] Comment on above: This liquid based Th inPrep(R) pap test was screened withthe use of an image guided system. Service comment (Unsp spec) [Interp] . . [facility] No Panel InformationOrdered By: Es Villarreal on 06-01-2023 Pathology report final diagnosis Narrative Comment . [facility] Comment on above: NEGATIVE FOR INTRAEP ITHELIAL LESION OR MALIGNANCY. Chlamydia trachomatis rRNA d etection by probe and target amplification methodOrdered By: Afsaneh Snow on 05-24-2023 C. trachomatis rRNA MARSHA+probe Ql (Unsp spec) Negative Negative [facility] Gram stain for investigation of transfusion reactionOrdered By: Afsaneh Snow on 05-24-2023 Microscopic observation Gram stain Nom (Unsp spec) [facility] - Chemistry and C hemistry - challengeon 05-24-2023 Bilirubin Ql (U) Negative [facility] Glucose Ql (U) Negative [facility] Ketones Ql (U) Negative [facility] pH (U) 5.0 [pH] [facility] Specific gravity (U) [Rel density] 1.010 [facility] Urobilinogen (U) [Mass/Vol] Negative [facility] - Hematology and Cell countson 05-24-2023 Hemoglobin Ql (U) Negative [facility] - Microbiology an d Antimicrobial susceptibilityOrdered By: Afsaneh Snow on 05-24-2023 N. gonorrhoeae DNA MARSHA+probe Ql (Unsp spec) Negative Negative [facility] Comment on above: Performed at: =[address] [id number] Director: Jana Roberson MD, Phone: [phone] Laboratory - Specimen inform ationon 05-24-2023 Clarity (U) Clear [facility] Color (U) YELLOW [facility] - Urinalysison Nitrite Ql (U) Negative [facility] Protein Ql (U) Negative [facility] No Panel Informationon 05-24 POC Bacterial Vaginitis (Rapid) Negative [facility] POC Trichomonas (Rapid) Negative [facility] Urine Leukocytes Negatve [facility] Urine Non-Hemolyzed Blood Negative [facility] Thin prep Papanicolaou smear with manual screeningOrdered By: Afsaneh Snow on 05-24-2023 Thin prep Papanicolaou smear with manual screening Neisseria or beta-hemolytic Streptococcus isolated. [facility] Gram stain for investigation of transfusion reactionOrdered By: Yessi Koo on 04-22-2023 Microscopic observation Gram stain Nom (Unsp spec) [facility] No Panel Informationon 04-22 POC Bacterial Vaginitis (Rapid) Negative [facility] Thin prep Papanicolaou smear with manual screeningOrdered By: Yessi Koo on 04-22-2023 Genital Culture Streptococcus group B [facility] Absolute lymphocyte countOrd ered By: Mega Cordova on 04-21-2023 Lymphocytes Auto (Unsp spec) [#/Vol] 2.00 10*3/uL 0.83-4.51 [facility] Basophil percentageOrdered B y: Mega Cordova on 04-21-2023 Basophils/100 WBC (Bld) 0.9 % 0-1 [facility] Eosinophils/100 WBC (Bld) 0.7 % 0-5 [facility] Neutrophils (Bld) [#/Vol] 2.2 10*3/uL 2.0-7.7 [facility] Neutrophils/100 WBC (Bld) 46.7 % 47-70 [facility] WBC (Bld) [#/Vol] 4.6 10*3/uL 4.4-11.0 [facility] Blood erythrocytes count (nu mber/volume)Ordered By: Mega Cordova on 04-21-2023 RBC (Bld) [#/Vol] 4.17 10*6/uL 4.2-5.4 [facility] Blood hemoglobin measurement (mass/volume)Ordered By: Mega Cordova on 04-21-2023 Hemoglobin (Bld) [Mass/Vol] 12.4 g/dL 12.0-15.0 [facility] Blood lymphocytes/100 leukoc ytesOrdered By: Mega Cordova on 04-21-2023 Lymphocytes/100 WBC (Bld) 43.5 % 19-41 [facility] Blood monocytes/100 leukocyt esOrdered By: Mega Cordova on 04-21-2023 Monocytes/100 WBC (Bld) 8.0 % 0-10 [facility] Blood platelet mean volumeOr dered By: Mega Cordova on 04-21-2023 Platelet mean volume (Bld) [Entitic vol] 9.7 fL 6.2-12.0 [facility] Determination of erythrocyte mean corpuscular volume (MCV)Ordered By: Mega Cordova on 04-21-2023 MCV (RBC) [Entitic vol] 87.5 fL 81-99 [facility] Hematocrit Auto (Bld) [Volum e fraction]Ordered By: Mega Cordova on 04-21-2023 Hematocrit (Bld) [Volume fraction] 36.5 % 37-47 [facility] - Hematology and Cell countsOrdered By: Mega Cordova on 04-21-2023 Erythrocyte distribution width (RBC) [Entitic vol] 39.3 fL 35.1-43.9 [facility] Erythrocyte distribution width (RBC) [Ratio] 12.4 % 11.6-14.6 [facility] Immature granulocytes/100 WBC (Bld) 0.200 % 0.0-0.9 [facility] Comment on above: IG% - Immature Granu locytes (promyelocytes, myelocytes and metamyelocytes) > 1% indicates that a LEFT SHIFT is Present. MCH (RBC) [Entitic mass] 29.7 pg 27.0-32.0 [facility] Nucleated RBC/100 WBC (Bld) [Ratio] 0 % 0-5 [facility] MCHC Auto (RBC) [Mass/Vol]Or dered By: Mega Cordova on 04-21-2023 MCHC (RBC) [Mass/Vol] 34.0 g/dL 32-36 [facility] Platelets bldOrdered By: Patricia Cordova on 04-21-2023 Platelets (Bld) [#/Vol] 364 10*3/uL 150-450 [facility] Serum or plasma ferritin lupe surement (mass/volume)Ordered By: Mega Cordova on 04-21-2023 Ferritin [Mass/Vol] 14 ng/mL 8-252 [facility] - Microbiology an d Antimicrobial susceptibilityon 01-23-2023 SARS-CoV-2 (COVID-19) RNA MARSHA+probe Ql (Unsp spec) Not detected [facility] No Panel Informationon 01-23 Influenza Types A,B Rapid (Clinic) Not detected [facility] Absolute lymphocyte countOrd ered By: Oracio Johnson on 01-12-2023 Lymphocytes Auto (Unsp spec) [#/Vol] 1.92 10*3/uL 0.83-4.51 [facility] Basophil percentageOrdered B y: Oracio Johnson on 01-12-2023 Basophil percentage 0 SEEN /hpf 0-5 [facility] Basophils/100 WBC (Bld) 1.0 % 0-1 [facility] Bilirubin [Mass/Vol] 0.50 mg/dL 0.20-1.00 [facility] Comment on above: For patients on eltr ombopag therapy, use of Dimension [place] TBIL is not recommended. Chloride [Moles/Vol] 109 mmol/L 98-107 [facility] Eosinophils/100 WBC (Bld) 1.0 % 0-5 [facility] Glucose [Mass/Vol] 91 mg/dL 74-106 [facility] Neutrophils (Bld) [#/Vol] 1.7 10*3/uL 2.0-7.7 [facility] Neutrophils/100 WBC (Bld) 41.8 % 47-70 [facility] Potassium [Moles/Vol] 4.7 mmol/L 3.5-5.1 [facility] Comment on above: Slight Hemolysis, Re sult may be falsely increased. Protein [Mass/Vol] 7.4 g/dL 6.4-8.2 [facility] Sodium [Moles/Vol] 141 mmol/L 136-145 [facility] WBC (Bld) [#/Vol] 4.0 10*3/uL 4.4-11.0 [facility] Beta hCG serum qualOrdered B y: Oracio Johnson on 01-12-2023 Beta HCG ( test) Ql Negative [facility] Bilirubin Test strip Ql (U)O rdered By: Oracio Johnson on 01-12-2023 Bilirubin Ql (U) Negative Negative [facility] Blood erythrocytes count (nu mber/volume)Ordered By: Oracio Johnson on 01-12-2023 RBC (Bld) [#/Vol] 4.14 10*6/uL 4.2-5.4 [facility] Blood hemoglobin measurement (mass/volume)Ordered By: Oracio Johnson on 01-12-2023 Hemoglobin (Bld) [Mass/Vol] 12.2 g/dL 12.0-15.0 [facility] Blood lymphocytes/100 leukoc ytesOrdered By: Oracio Johnson on 01-12-2023 Lymphocytes/100 WBC (Bld) 47.6 % 19-41 [facility] Blood monocytes/100 leukocyt esOrdered By: Oracio Johnson on 01-12-2023 Monocytes/100 WBC (Bld) 8.4 % 0-10 [facility] Blood platelet mean volumeOr dered By: Oracio Johnson on 01-12-2023 Platelet mean volume (Bld) [Entitic vol] 9.0 fL 6.2-12.0 [facility] Determination of erythrocyte mean corpuscular volume (MCV)Ordered By: Oracio Johnson on 01-12-2023 MCV (RBC) [Entitic vol] 87.9 fL 81-99 [facility] Hematocrit Auto (Bld) [Volum e fraction]Ordered By: Oracio Johnson on 01-12-2023 Hematocrit (Bld) [Volume fraction] 36.4 % 37-47 [facility] Ketones Test strip Ql (U)Ord ered By: Oracio Johnson on 01-12-2023 Ketones Ql (U) Negative Negative [facility] Laboratory - Chemistry and C hemistry - challengeOrdered By: Oracio Johnson on 01-12-2023 ALP [Catalytic activity/Vol] 50 U/L 45-117 [facility] ALT [Catalytic activity/Vol] 25 U/L 13- [facility] CO2 [Moles/Vol] 26.0 mmol/L 21.0-32.0 [facility] Globulin (S) [Mass/Vol] 3.4 g/dL 2.2-4.2 [facility] Lipase [Catalytic activity/Vol] 44 U/L - [facility] Comment on above: Please note:LIPASE r evised reference range effective 22. New Lipase methodology. Expected to produce lower values than the previous assay method. NEW Reference Range: 13 - 75 U/L Urea nitrogen/Creatinine [Mass ratio] 11.4 mg/mg 10-20 [facility] - Hematology and Cell countsOrdered By: Oracio Johnson on 01-12-2023 Erythrocyte distribution width (RBC) [Entitic vol] 39.7 fL 35.1-43.9 [facility] Erythrocyte distribution width (RBC) [Ratio] 12.5 % 11.6-14.6 [facility] Immature granulocytes/100 WBC (Bld) 0.200 % 0.0-0.9 [facility] Comment on above: IG% - Immature Granu locytes (promyelocytes, myelocytes and metamyelocytes) > 1% indicates that a LEFT SHIFT is Present. MCH (RBC) [Entitic mass] 29.5 pg 27.0-32.0 [facility] Nucleated RBC/100 WBC (Bld) [Ratio] 0 % 0-5 [facility] MCHC Auto (RBC) [Mass/Vol]Or dered By: Oracio Johnson on 01-12-2023 MCHC (RBC) [Mass/Vol] 33.5 g/dL 32-36 [facility] Mucus LM Ql (Urine sed)Order ed By: Oracio Johnson on 01-12-2023 Mucus Ql (Urine sed) 0 SEEN /hpf [facility] Nitrite Test strip Ql (U)Ord ered By: Oracio Johnson on 01-12-2023 Nitrite Ql (U) Negative Negative [facility] No Panel InformationOrdered By: Oracio Johnson on 01-12-2023 Estimated Creatinine Clearance Calc 77.15 ml/min [facility] Estimated GFR (MDRD) Amer 108 mL/min >60 [facility] Comment on above: GFR Calc Estimated GFR (MDRD) Non-Af Amer 89 mL/min >60 [facility] Comment on above: Non- GFR Calc Platelets bldOrdered By: Shahriar Johnson on 01-12-2023 Platelets (Bld) [#/Vol] 296 10*3/uL 150-450 [facility] Protein Test strip Ql (U)Ord ered By: Oracio Johnson on 01-12-2023 Protein Ql (U) Negative Negative [facility] Serum or plasma albumin miranda urement (mass/volume)Ordered By: Oracio Johnson on 01-12-2023 Albumin [Mass/Vol] 4.0 g/dL 3.2-5.0 [facility] Serum or plasma albumin/glob ulin mass ratioOrdered By: Oracio Johnson on 01-12-2023 Albumin/Globulin [Mass ratio] 1.2 {ratio} 0.9-2.4 [facility] Serum or plasma calcium miranda urement (mass/volume)Ordered By: Oracio Johnson on 01-12-2023 Calcium [Mass/Vol] 9.1 mg/dL 8.5-10.1 [facility] Serum or plasma creatinine m easurement (mass/volume)Ordered By: Oracio Johnson on 01-12-2023 Creatinine [Mass/Vol] 0.79 mg/dL 0.55-1.02 [facility] Comment on above: The validity of the calculated GFR & GFRAA in patients over 70 years has not been determined. Clinical correlation is essential. Serum or plasma urea nitroge n measurement (mass/volume)Ordered By: Oracio Johnson on 01-12-2023 Urea nitrogen [Mass/Vol] 9 mg/dL 7-18 [facility] Squamous epithelial cells de tection in urine sediment by light microscopyOrdered By: Oracio Johnson on 01-12-2023 Epithelial cells.squamous LM Ql (Urine sed) 0-5 SEEN /hpf 5-10 [facility] Thin prep Papanicolaou smear with manual screeningOrdered By: Oracio Johnson on 01-12-2023 Thin prep Papanicolaou smear with manual screening 20 U/L 15-37 [facility] Comment on above: Slight Hemolysis, Re sult may be falsely increased. Thin prep Papanicolaou smear with manual screening 6 5-15 [facility] Urine blood detectionOrdered By: Oracio Johnson on 01-12-2023 RBC Ql (U) 10 /ul Negative [facility] RBC Ql (U) 0 SEEN /hpf 0-5 [facility] Urine clarityOrdered By: Shahriar Johnson on 01-12-2023 Clarity (U) Clear Clear [facility] Urine color determinationOrd ered By: Oracio Johnson on 01-12-2023 Color (U) Yellow Yellow [facility] Urine glucose detectionOrder ed By: Oracio Johnson on 01-12-2023 Glucose Ql (U) Normal mg/dl Normal [facility] Urine leukocyte esterase det ection by dipstickOrdered By: Oracio Johnson on 01-12-2023 Leukocyte esterase Test strip Ql (U) Negative Negative [facility] Urine pHOrdered By: Oracio ash on 01-12-2023 pH (U) 6.5 [pH] 5.0 - 8.0 [facility] Urine sediment bacteria coun t by microscopy (number/high power field)Ordered By: Oracio Johnson on 01-12-2023 Bacteria LM.HPF (Urine sed) [#/Area] RARE /hpf None Seen [facility] Urine specific gravity measu rementOrdered By: Oracio Johnson on 01-12-2023 Specific gravity (U) [Rel density] 1.010 1.002-1.030 [facility] Urobilinogen Auto test strip Ql (U)Ordered By: Oracio Johnson on 01-12-2023 Urobilinogen Ql (U) Normal mg/dl Normal [facility] Absolute lymphocyte countOrd ered By: Mega Cordova on 12-07-2022 Lymphocytes Auto (Unsp spec) [#/Vol] 2.66 10*3/uL 0.83-4.51 [facility] Basophil percentageOrdered B y: Mega Cordova on 12-07-2022 Basophils/100 WBC (Bld) 0.9 % 0-1 [facility] Eosinophils/100 WBC (Bld) 0.6 % 0-5 [facility] Neutrophils (Bld) [#/Vol] 3.4 10*3/uL 2.0-7.7 [facility] Neutrophils/100 WBC (Bld) 51.3 % 47-70 [facility] WBC (Bld) [#/Vol] 6.7 10*3/uL 4.4-11.0 [facility] Blood erythrocytes count (nu mber/volume)Ordered By: Mega Cordova on 12-07-2022 RBC (Bld) [#/Vol] 4.36 10*6/uL 4.2-5.4 [facility] Blood hemoglobin measurement (mass/volume)Ordered By: Mega Cordova on 12-07-2022 Hemoglobin (Bld) [Mass/Vol] 12.7 g/dL 12.0-15.0 [facility] Blood lymphocytes/100 leukoc ytesOrdered By: Mega Cordova on 12-07-2022 Lymphocytes/100 WBC (Bld) 39.6 % 19-41 [facility] Blood monocytes/100 leukocyt esOrdered By: Mega Cordova on 12-07-2022 Monocytes/100 WBC (Bld) 7.5 % 0-10 [facility] Blood platelet mean volumeOr dered By: Mega Cordova on 12-07-2022 Platelet mean volume (Bld) [Entitic vol] 9.3 fL 6.2-12.0 [facility] Determination of erythrocyte mean corpuscular volume (MCV)Ordered By: Mega Cordova on 12-07-2022 MCV (RBC) [Entitic vol] 89.2 fL 81-99 [facility] Hematocrit Auto (Bld) [Volum e fraction]Ordered By: Mega Cordova on 12-07-2022 Hematocrit (Bld) [Volume fraction] 38.9 % 37-47 [facility] Iron measurement (mass/mass) Ordered By: Mega Cordova on 12-07-2022 Iron (Unsp spec) [Mass/Mass] 121 ug/dL 50-170 [facility] - Hematology and Cell countsOrdered By: Mega Cordova on 12-07-2022 Erythrocyte distribution width (RBC) [Entitic vol] 39.6 fL 35.1-43.9 [facility] Erythrocyte distribution width (RBC) [Ratio] 12.2 % 11.6-14.6 [facility] Immature granulocytes/100 WBC (Bld) 0.100 % 0.0-0.9 [facility] Comment on above: IG% - Immature Granu locytes (promyelocytes, myelocytes and metamyelocytes) > 1% indicates that a LEFT SHIFT is Present. MCH (RBC) [Entitic mass] 29.1 pg 27.0-32.0 [facility] Nucleated RBC/100 WBC (Bld) [Ratio] 0 % 0-5 [facility] MCHC Auto (RBC) [Mass/Vol]Or dered By: Mega Cordova on 12-07-2022 MCHC (RBC) [Mass/Vol] 32.6 g/dL 32-36 [facility] No Panel InformationOrdered By: Mega Cordova on 12-07-2022 Total Iron Binding Capacity 382 ug/dL 250-450 [facility] Platelets bldOrdered By: Patricia Cordova on 12-07-2022 Platelets (Bld) [#/Vol] 340 10*3/uL 150-450 [facility] Serum or plasma ferritin lupe surement (mass/volume)Ordered By: Mega Cordova on 12-07-2022 Ferritin [Mass/Vol] 12 ng/mL 8-252 [facility] Whole blood hemoglobin A1c/t otal hemoglobin ratio (mass fraction)Ordered By: Afsaneh Snow on 12-07-2022 HbA1c (Bld) [Mass fraction] 4.9 % 3.8-5.6 [facility] Comment on above: Normal < 5.7 % Predi abetic 5.7 - 6.4 % Diabetic >or= 6.5 % Please note range changes. Absolute lymphocyte countOrd ered By: Mega Cordova on 11-12-2022 Lymphocytes Auto (Unsp spec) [#/Vol] 2.34 10*3/uL 0.83-4.51 [facility] Basophil percentageOrdered B y: Mega Cordova on 11-12-2022 Basophils/100 WBC (Bld) 0.5 % 0-1 [facility] Eosinophils/100 WBC (Bld) 0.5 % 0-5 [facility] Neutrophils (Bld) [#/Vol] 2.7 10*3/uL 2.0-7.7 [facility] Neutrophils/100 WBC (Bld) 49.1 % 47-70 [facility] WBC (Bld) [#/Vol] 5.6 10*3/uL 4.4-11.0 [facility] Blood erythrocytes count (nu mber/volume)Ordered By: Mega Cordova on 11-12-2022 RBC (Bld) [#/Vol] 3.94 10*6/uL 4.2-5.4 [facility] Blood hemoglobin measurement (mass/volume)Ordered By: Mega Cordova on 11-12-2022 Hemoglobin (Bld) [Mass/Vol] 11.6 g/dL 12.0-15.0 [facility] Blood lymphocytes/100 leukoc ytesOrdered By: Mega Cordova on 11-12-2022 Lymphocytes/100 WBC (Bld) 42.2 % 19-41 [facility] Blood monocytes/100 leukocyt esOrdered By: Mega Cordova on 11-12-2022 Monocytes/100 WBC (Bld) 7.7 % 0-10 [facility] Blood platelet mean volumeOr dered By: Mega Cordova on 11-12-2022 Platelet mean volume (Bld) [Entitic vol] 9.1 fL 6.2-12.0 [facility] Determination of erythrocyte mean corpuscular volume (MCV)Ordered By: Mega Cordova on 11-12-2022 MCV (RBC) [Entitic vol] 88.6 fL 81-99 [facility] Hematocrit Auto (Bld) [Volum e fraction]Ordered By: Mega Cordova on 11-12-2022 Hematocrit (Bld) [Volume fraction] 34.9 % 37-47 [facility] - Chemistry and C hemistry - challengeOrdered By: Mega Cordova on 11-12-2022 Cobalamin (Vitamin B12) [Mass/Vol] 519 pg/mL 211-911 [facility] - Hematology and Cell countsOrdered By: Mega Cordova on 11-12-2022 Erythrocyte distribution width (RBC) [Entitic vol] 41.0 fL 35.1-43.9 [facility] Erythrocyte distribution width (RBC) [Ratio] 12.5 % 11.6-14.6 [facility] Immature granulocytes/100 WBC (Bld) 0.000 % 0.0-0.9 [facility] Comment on above: IG% - Immature Granu locytes (promyelocytes, myelocytes and metamyelocytes) > 1% indicates that a LEFT SHIFT is Present. MCH (RBC) [Entitic mass] 29.4 pg 27.0-32.0 [facility] Nucleated RBC/100 WBC (Bld) [Ratio] 0 % 0-5 [facility] MCHC Auto (RBC) [Mass/Vol]Or dered By: Mega Cordova on 11-12-2022 MCHC (RBC) [Mass/Vol] 33.2 g/dL 32-36 [facility] No Panel InformationOrdered By: Mega Cordova on 11-12-2022 Thyroid Stimulating Hormone (TSH) 0.76 uIU/mL 0.358-3.74 [facility] Platelets bldOrdered By: Patricia Cordova on 11-12-2022 Platelets (Bld) [#/Vol] 346 10*3/uL 150-450 [facility] Absolute lymphocyte countOrd ered By: Dr. Villarreal on 09-07-2022 Lymphocytes Auto (Unsp spec) [#/Vol] 2.22 10*3/uL 0.83-4.51 [facility] Basophil percentageOrdered B y: Dr. Villarreal on 09-07-2022 Basophils/100 WBC (Bld) 0.5 % 0-1 [facility] Eosinophils/100 WBC (Bld) 0.2 % 0-5 [facility] Neutrophils (Bld) [#/Vol] 3.0 10*3/uL 2.0-7.7 [facility] Neutrophils/100 WBC (Bld) 52.5 % 47-70 [facility] WBC (Bld) [#/Vol] 5.8 10*3/uL 4.4-11.0 [facility] Blood erythrocytes count (nu mber/volume)Ordered By: Dr. Villarreal on 09-07-2022 RBC (Bld) [#/Vol] 4.19 10*6/uL 4.2-5.4 [facility] Blood hemoglobin measurement (mass/volume)Ordered By: Dr. Villarreal on 09-07-2022 Hemoglobin (Bld) [Mass/Vol] 12.6 g/dL 12.0-15.0 [facility] Blood lymphocytes/100 leukoc ytesOrdered By: Dr. Villarreal on 09-07-2022 Lymphocytes/100 WBC (Bld) 38.3 % 19-41 [facility] Blood monocytes/100 leukocyt esOrdered By: Dr. Villarreal on 09-07-2022 Monocytes/100 WBC (Bld) 8.3 % 0-10 [facility] Blood platelet mean volumeOr dered By: Dr. Villarreal on 09-07-2022 Platelet mean volume (Bld) [Entitic vol] 9.5 fL 6.2-12.0 [facility] Determination of erythrocyte mean corpuscular volume (MCV)Ordered By: Dr. Villarreal on 09-07-2022 MCV (RBC) [Entitic vol] 85.9 fL 81-99 [facility] Hematocrit Auto (Bld) [Volum e fraction]Ordered By: Dr. Villarreal on 09-07-2022 Hematocrit (Bld) [Volume fraction] 36.0 % 37-47 [facility] - Chemistry and C hemistry - challengeOrdered By: Dr. Rivero on 09-07-2022 HCG ( test) Ql (U) Negative [facility] Comment on above: Very dilute urine sp ecimens, as indicated by a low specificgravity, may not contain pharmaceutical specialty representative levels of hCG. If is still suspected, a first morning urinespecimen should be collected 48 hours later and tested. Laboratory - Hematology and Cell countsOrdered By: Dr. Villarreal on 09-07-2022 Erythrocyte distribution width (RBC) [Entitic vol] 38.9 fL 35.1-43.9 [facility] Erythrocyte distribution width (RBC) [Ratio] 12.5 % 11.6-14.6 [facility] Immature granulocytes/100 WBC (Bld) 0.200 % 0.0-0.9 [facility] Comment on above: IG% - Immature Granu locytes (promyelocytes, myelocytes and metamyelocytes) > 1% indicates that a LEFT SHIFT is Present. MCH (RBC) [Entitic mass] 30.1 pg 27.0-32.0 [facility] Nucleated RBC/100 WBC (Bld) [Ratio] 0 % 0-5 [facility] MCHC Auto (RBC) [Mass/Vol]Or dered By: Dr. Villarreal on 09-07-2022 MCHC (RBC) [Mass/Vol] 35.0 g/dL 32-36 [facility] Platelets bldOrdered By: Dr. Villarreal on 09-07-2022 Platelets (Bld) [#/Vol] 377 10*3/uL 150-450 [facility] - Chemistry and C hemistry - challengeon 07-08-2022 HCG ( test) Ql (U) Negative [facility] Basophil percentageOrdered B y: Dr. Villarreal on 06-23-2022 Bilirubin [Mass/Vol] 0.50 mg/dL 0.20-1.00 [facility] Comment on above: For patients on eltr ombopag therapy, use of Dimension [place] TBIL is not recommended. Chloride [Moles/Vol] 103 mmol/L 98-107 [facility] Cholesterol [Mass/Vol] 178 mg/dL <200 [facility] Comment on above: <200 mg/dL Desirable 200-240 mg/dL Borderline >240 mg/dL High Risk Glucose [Mass/Vol] 93 mg/dL 74-106 [facility] Potassium [Moles/Vol] 3.8 mmol/L 3.5-5.1 [facility] Protein [Mass/Vol] 8.2 g/dL 6.4-8.2 [facility] Sodium [Moles/Vol] 141 mmol/L 136-145 [facility] Triglyceride [Mass/Vol] 89 mg/dL <199 [facility] Comment on above: The drugs N-Acetylcy steine and Metamizole may falsely depress this assay.Serum Triglycerides Reference Interval Normal <150 mg/dL Borderline high 150 - 199 mg/dL High 200 - 499 mg/dL Very High > or = 500 mg/dL Laboratory - Chemistry and C hemistry - challengeOrdered By: Dr. Villarreal on 06-23-2022 ALP [Catalytic activity/Vol] 62 U/L 45-117 [facility] ALT [Catalytic activity/Vol] 18 U/L 13-56 [facility] CO2 [Moles/Vol] 32.0 mmol/L 21.0-32.0 [facility] Globulin (S) [Mass/Vol] 3.7 g/dL 2.2-4.2 [facility] Urea nitrogen/Creatinine [Mass ratio] 14.8 mg/mg 10-20 [facility] - Chemistry and C hemistry - challengeOrdered By: Dr. Parker on 06-23-2022 Free T4 [Mass/Vol] 1.16 ng/dL 0.76-1.46 [facility] No Panel InformationOrdered By: Dr. Villarreal on 06-23-2022 Estimated GFR (MDRD) Amer 130 mL/min >60 [facility] Comment on above: GFR Calc Estimated GFR (MDRD) Non-Af Amer 107 mL/min >60 [facility] Comment on above: Non- GFR Calc No Panel InformationOrdered By: Dr. Parker on 06-23-2022 Free Triiodothyronine (T3) pg/dL 2.7 pg/mL 2.18-3.98 [facility] Insulin Level 8.7 mU/L 2.6-37.6 [facility] Thyroid Stimulating Hormone (TSH) 0.72 uIU/mL 0.358-3.74 [facility] Vitamin D 25-Hydroxy 21.3 ng/mL [facility] Comment on above: Vitamin D 25(OH) Sta tus Range Deficiency <20 ng/mL (50nmol/L) Insufficiency 20 - 30 ng/mL (50 - 75 nmol/L) Sufficiency 30 - 100 ng/mL (75 - 250 nmol/L) Toxicity >100 ng/mL (>250 nmol/L) Serum or plasma albumin miranda urement (mass/volume)Ordered By: Dr. Villarreal on 06-23-2022 Albumin [Mass/Vol] 4.5 g/dL 3.2-5.0 [facility] Serum or plasma albumin/glob ulin mass ratioOrdered By: Dr. Villarreal on 06-23-2022 Albumin/Globulin [Mass ratio] 1.2 {ratio} 0.9-2.4 [facility] Serum or plasma calcium miranda urement (mass/volume)Ordered By: Dr. Villarreal on 06-23-2022 Calcium [Mass/Vol] 9.5 mg/dL 8.5-10.1 [facility] Serum or plasma cholesterol in HDL measurement (mass/volume)Ordered By: Dr. Villarreal on 06-23-2022 Cholesterol in HDL [Mass/Vol] 58 mg/dL >40 [facility] Comment on above: The drugs N-Acetylcy steine and Metamizole may falsely depress this assay. Reference Range HDL <40 mg/dL Low HDL Cholesterol HDL >or= 60 mg/dL High HDL Cholesterol Serum or plasma cholesterol in VLDL measurement (mass/volume)Ordered By: Dr. Villarreal on 06-23-2022 Cholesterol in VLDL [Mass/Vol] 18 mg/dL 5-40 [facility] Serum or plasma creatinine m easurement (mass/volume)Ordered By: Dr. Villarreal on 06-23-2022 Creatinine [Mass/Vol] 0.68 mg/dL 0.55-1.02 [facility] Comment on above: The validity of the calculated GFR & GFRAA in patients over 70 years has not been determined. Clinical correlation is essential. Serum or plasma low density lipoprotein (LDL) cholesterol measurement (mass/volume)Ordered By: Dr. Villarreal on 06-23-2022 Cholesterol in LDL [Mass/Vol] 102 mg/dL 0-130 [facility] Serum or plasma urea nitroge n measurement (mass/volume)Ordered By: Dr. Villarreal on 06-23-2022 Urea nitrogen [Mass/Vol] 10 mg/dL 7-18 [facility] Thin prep Papanicolaou smear with manual screeningOrdered By: Dr. Villarreal on 06-23-2022 Thin prep Papanicolaou smear with manual screening 10 U/L 15-37 [facility] Thin prep Papanicolaou smear with manual screening 6 5-15 [facility] Cervical or vagninal specime n microscopic examination by cytology stain (reported asOrdered By: Dr. Villarreal on 05-28-2022 Cytology report Cyto stain Doc (Cvx/Vag) Comment . [facility] Comment on above: The Pap smear is a s creening test designed to aid in thedetection of premalignant and malignant conditions of theuterine cervix. It is not a diagnostic procedure andshould not be used as the sole means of detecting cervicalcancer. Both false-positive and false-negative reports dooccur. Detection in cervical specim en of any of human papilloma virus (HPV) 16, 18, 31, 33,Ordered By: Dr. Villarreal on 05-28-2022 HPV 16+18+31+33+35+39+45+51 +52+56+58+59+66+68 DNA Probe+sig amp Ql (Cvx) Positive Negative [facility] Comment on above: This nucleic acid am plification test detects fourteen high-risk HPV types (16,18,31,33,35,39,45,51,52,56,58,59,66,68)without differentiation. Laboratory - CytologyOrdered By: Dr. Villarreal on 05-28-2022 Cryptoanalysis Teacher Cyto stain Nom (Cvx/Vag) [ID] Comment . [facility] Comment on above: Yosi Brantley, Cyto technologist (ASCP) Pathologist Cyto stain Nom (Cvx/Vag) [ID] Comment . [facility] Comment on above: Allie Mena MD, P athologist Laboratory - Miscellaneous t estsOrdered By: Dr. Villarreal on 05-28-2022 Service comment (Unsp spec) [Interp] TNP [facility] Comment on above: Test not performedTh e Thin Prep(R) Associate School Psychologist was unable to read this specimen.Therefore a manual review was performed. Service comment (Unsp spec) [Interp] . . [facility] Liquid-based cerv Pap + CT/G C by MARSHA w reflex to high-risk HPV for ASCUSOrdered By: Dr. Villarreal on 05-28-2022 Cytology report Cyto stain.thin prep Doc (Cvx/Vag) Comment . [facility] Comment on above: Criteria not met, HP V Genotype not performed.Performed at: - Lab[address] [id number] Director: Jana Roberson MD, Phone: [phone] at: =[facility] [address] [id number] Director: Jana Roberson MD, Phone: [phone] No Panel InformationOrdered By: Dr. Villarreal on 05-28-2022 Pathology report final diagnosis Narrative Comment . [facility] Comment on above: EPITHELIAL CELL ABNO RMALITY.ATYPICAL SQUAMOUS CELLS OF UNDETERMINED SIGNIFICANCE (ASC-US). R87.610 Basophil percentageOrdered B y: Dr. Villarreal on 04-19-2022 Cholesterol [Mass/Vol] 200 mg/dL <200 [facility] Comment on above: <200 mg/dL Desirable 200-240 mg/dL Borderline >240 mg/dL High Risk Triglyceride [Mass/Vol] 76 mg/dL <199 [facility] Comment on above: The drugs N-Acetylcy steine and Metamizole may falsely depress this assay.Serum Triglycerides Reference Interval Normal <150 mg/dL Borderline high 150 - 199 mg/dL High 200 - 499 mg/dL Very High > or = 500 mg/dL Serum or plasma cholesterol in HDL measurement (mass/volume)Ordered By: Dr. Villarreal on 04-19-2022 Cholesterol in HDL [Mass/Vol] 65 mg/dL >40 [facility] Comment on above: The drugs N-Acetylcy steine and Metamizole may falsely depress this assay. Reference Range HDL <40 mg/dL Low HDL Cholesterol HDL >or= 60 mg/dL High HDL Cholesterol Serum or plasma cholesterol in VLDL measurement (mass/volume)Ordered By: Dr. Villarreal on 04-19-2022 Cholesterol in VLDL [Mass/Vol] 15 mg/dL 5-40 [facility] Serum or plasma low density lipoprotein (LDL) cholesterol measurement (mass/volume)Ordered By: Dr. Villarreal on 04-19-2022 Cholesterol in LDL [Mass/Vol] 120 mg/dL 0-130 [facility] Whole blood hemoglobin A1c/t otal hemoglobin ratio (mass fraction)Ordered By: Dr. Villarreal on 04-19-2022 HbA1c (Bld) [Mass fraction] 5.0 % 3.8-5.6 [facility] Comment on above: Normal < 5.7 % Predi abetic 5.7 - 6.4 % Diabetic >or= 6.5 % Please note range changes. Absolute lymphocyte counton 11-15-2021 Lymphocytes Auto (Unsp spec) [#/Vol] 2.97 10*3/uL 0.83-4.51 [facility] Work Phone: Basophil percentageon 2021 Basophils/100 WBC (Bld) 0.4 % 0-1 [facility] Work Phone: Bilirubin [Mass/Vol] 0.30 mg/dL 0.20-1.00 [facility] Work Phone: Comment on above: For patients on eltr ombopag therapy, use of Dimension [place] TBIL is not recommended. Chloride [Moles/Vol] 105 mmol/L 98-107 [facility] Work Phone: Eosinophils/100 WBC (Bld) 0.6 % 0-5 [facility] Work Phone: Glucose [Mass/Vol] 114 mg/dL 74-106 [facility] Work Phone: Comment on above: Fasting Glucose resu lt from 100 to 125 mg/dL suggests IMPAIRED HOMEOSTASIS per A.D.A. criteria. Neutrophils (Bld) [#/Vol] 1.6 10*3/uL 2.0-7.7 [facility] Work Phone: Neutrophils/100 WBC (Bld) 31.2 % 47-70 [facility] Work Phone: Potassium [Moles/Vol] 3.5 mmol/L 3.5-5.1 [facility] Work Phone: Protein [Mass/Vol] 7.7 g/dL 6.4-8.2 [facility] Work Phone: Sodium [Moles/Vol] 139 mmol/L 136-145 [facility] Work Phone: WBC (Bld) [#/Vol] 5.0 10*3/uL 4.4-11.0 [facility] Work Phone: Beta hCG serum qualon 2021 Beta HCG ( test) Ql Negative [facility] Work Phone: Blood erythrocytes count (nu mber/volume)on 11-15-2021 RBC (Bld) [#/Vol] 4.48 10*6/uL 4.2-5.4 [facility] Work Phone: Blood hemoglobin measurement (mass/volume)on 11-15-2021 Hemoglobin (Bld) [Mass/Vol] 13.0 g/dL 12.0-15.0 [facility] Work Phone: Blood lymphocytes/100 leukoc yteson 11-15-2021 Lymphocytes/100 WBC (Bld) 59.4 % 19-41 [facility] Work Phone: Blood monocytes/100 leukocyt eson 11-15-2021 Monocytes/100 WBC (Bld) 8.4 % 0-10 [facility] Work Phone: Blood platelet mean volumeon 11-15-2021 Platelet mean volume (Bld) [Entitic vol] 9.2 fL 6.2-12.0 [facility] Work Phone: Determination of erythrocyte mean corpuscular volume (MCV)on 11-15-2021 MCV (RBC) [Entitic vol] 84.4 fL 81-99 [facility] Work Phone: [phone] Direct bilirubinon Bilirubin.direct [Mass/Vol] 0.09 mg/dL 0.00-0.30 [facility] Work Phone: [phone] Hematocrit Auto (Bld) [Volum e fraction]on 11-15-2021 Hematocrit (Bld) [Volume fraction] 37.8 % 37-47 [facility] Work Phone: [phone] Laboratory - Chemistry and C hemistry - challengeon 11-15-2021 ALP [Catalytic activity/Vol] 65 U/L 45-117 [facility] Work Phone: [phone] ALT [Catalytic activity/Vol] 29 U/L 13-56 [facility] Work Phone: [phone] CO2 [Moles/Vol] 26.0 mmol/L 21.0-32.0 [facility] Work Phone: [phone] Globulin (S) [Mass/Vol] 3.5 g/dL 2.2-4.2 [facility] Work Phone: [phone] Urea nitrogen/Creatinine [Mass ratio] 12.0 mg/mg 10-20 [facility] Work Phone: [phone] Laboratory - Hematology and Cell countson 11-15-2021 Erythrocyte distribution width (RBC) [Entitic vol] 36.5 fL 35.1-43.9 [facility] Work Phone: [phone] Erythrocyte distribution width (RBC) [Ratio] 11.9 % 11.6-14.6 [facility] Work Phone: [phone] Immature granulocytes/100 WBC (Bld) 0.000 % 0.0-0.9 [facility] Work Phone: [phone] Comment on above: IG% - Immature Granu locytes (promyelocytes, myelocytes and metamyelocytes) > 1% indicates that a LEFT SHIFT is Present. MCH (RBC) [Entitic mass] 29.0 pg 27.0-32.0 [facility] Work Phone: Nucleated RBC/100 WBC (Bld) [Ratio] 0 % 0-5 [facility] Work Phone: MCHC Auto (RBC) [Mass/Vol]on 11-15-2021 MCHC (RBC) [Mass/Vol] 34.4 g/dL 32-36 [facility] Work Phone: No Panel Informationon 11-15 D-Dimer Quantitative (PE/DVT) < 0.27 FEU/ug/m 0.27-0.49 [facility] Work Phone: Comment on above: NORMAL D-Dimer level (<0.50) indicates no DVT or PE. Estimated Creatinine Clearance Calc 70.07 ml/min [facility] Work Phone: Estimated GFR (MDRD) Amer 92 mL/min >60 [facility] Work Phone: Comment on above: GFR Calc Estimated GFR (MDRD) Non-Af Amer 76 mL/min >60 [facility] Work Phone: Comment on above: Non- GFR Calc Troponin I High Sensitivity < 3 pg/mL 3.0-54.0 [facility] Work Phone: Comment on above: Please Note: New Trupti t Units and Gender Specific Reference Ranges. For more information see Policy Stat Procedure [place] High Sensitivity Troponin (TNIH) and attachments. Platelets bldon 11-15-2021 Platelets (Bld) [#/Vol] 367 10*3/uL 150-450 [facility] Work Phone: [phone] Serum or plasma albumin miranda urement (mass/volume)on 11-15-2021 Albumin [Mass/Vol] 4.2 g/dL 3.2-5.0 [facility] Work Phone: [phone] Serum or plasma calcium miranda urement (mass/volume)on 11-15-2021 Calcium [Mass/Vol] 9.6 mg/dL 8.5-10.1 [facility] Work Phone: [phone] Serum or plasma creatinine m easurement (mass/volume)on 11-15-2021 Creatinine [Mass/Vol] 0.92 mg/dL 0.55-1.02 [facility] Work Phone: Comment on above: The validity of the calculated GFR & GFRAA in patients over 70 years has not been determined. Clinical correlation is essential. Serum or plasma urea nitroge n measurement (mass/volume)on 11-15-2021 Urea nitrogen [Mass/Vol] 11 mg/dL 7-18 [facility] Work Phone: Thin prep Papanicolaou smear with manual screeningon 11-15-2021 Thin prep Papanicolaou smear with manual screening 13 U/L 15-37 [facility] Work Phone: Thin prep Papanicolaou smear with manual screening 8 5-15 [facility] Work Phone: Laboratory - Microbiology an d Antimicrobial susceptibilityon 11-10-2021 SARS-CoV-2 (COVID-19) RNA MARSHA+probe Ql (Unsp spec) Detected Not Detect [facility] Work Phone: Comment on above: Normal Reference Ran ge: Not DetectedMethod:(RT-PCR) real-time reverse transcriptase PCRLuminex DANG Instrument*The Food and Drug Administration (FDA) has issued an Emergency Use Authorization (EAU) for the DANG SARS-CoV-2 Assay for the rapid detection of the virus that causes COVID-19. This test has been validated, but the FDAs independent review of this validation is pending.*Negative results do not preclude infection and should not be used as the sole basis for treatment or patient management. Optimum specimen types and timing for peak viral levels during infections caused by SARS-CoV-2 have not been determined. Collection of multiple specimens from the same patient may be necessary to detect the virus. The possibility of a false negative result should be considered if the patient has clinical presentation or has had recent exposure. S. pyogenes Ag IA Ql (Unsp spec) Negative [facility] Work Phone: Vitamin B1,Whole Bloodon Vitamin B1,Whole Blood 94 nmol/L Normal 70-180 [facility] Comment on above: Result Comment: INTE RPRETIVE INFORMATION: Vitamin B1, Whole Blood This assay measures the concentration of thiamine diphosphate (TDP), the primary active form of vitamin B1. Approximately 90 percent of vitamin B1 present in whole blood is TDP. Thiamine and thiamine monophosphate, which comprise the remaining 10 percent, are not measured. This test was developed and its performance characteristics determined by [employer]. It has not been cleared or approved by the [place] Food and Drug Administration. This test was performed in a CLIA certified laboratory and is intended for clinical purposes. Performed By: [employer] [address] [place] [id number] [employer] Strategist: Elisha Christine MD Performed By: #### H A1C2, TSH5, B12, HEMOG, IRON3, FERR3, FOLT3, LIPD2, CMP3, MG3 #### [facility] [employer] [facility] [address] [place] [address] #### ZINC2, WBB1O #### The performing lab is in the report. #### VD25H #### [facility] [employer] [facility] [address] [place] [address] Zinc, Serumon 06-23-2021 Zinc, Serum 83.2 ug/dL Normal 60.0-120.0 [facility] [employer] [facility] Comment on above: Result Comment: INTE RPRETIVE [...] developed and its performance characteristics determined by [employer]. It has not been cleared or approved by the US Food and Drug Administration. This test was performed in a CLIA certified laboratory and is intended for clinical purposes. Performed By: [employer] [address] [place] [id number] [employer] Strategist: Elisha Christine MD Performed By: #### H A1C2, TSH5, B12, HEMOG, IRON3, FERR3, FOLT3, LIPD2, CMP3, MG3 #### [facility] [address] [place] [address] #### ZINC2, WBB1O #### The performing lab is in the report. #### VD25H #### [facility] [address] [place] [address] Comp Metabolic Panelon 06-19 ALT [Catalytic activity/Vol] 19 U/L Normal 0-34 [facility] Comment on above: Result Comment: The ALT test is performed by an updated assay method. Please note that the reference intervals have been changed and are now sex specific. Performed By: #### H A1C2, TSH5, B12, HEMOG, IRON3, FERR3, FOLT3, LIPD2, CMP3, MG3 #### [facility] [address] [place] [address] #### ZINC2, WBB1O #### The performing lab is in the report. #### VD25H #### [place] [address] [place] [address] Calcium [Mass/Vol] 9.4 mg/dL Normal 8.4-10.4 [facility] Comment on above: Performed By: #### H A1C2, TSH5, B12, HEMOG, IRON3, FERR3, FOLT3, LIPD2, CMP3, MG3 #### [facility] [address] [facility] [place] [address] #### ZINC2, WBB1O #### The performing lab is in the report. #### VD25H #### [facility] [address] [place] [address] ALP [Catalytic activity/Vol] 63 U/L Normal 38-126 [facility] Comment on above: Performed By: #### H A1C2, TSH5, B12, HEMOG, IRON3, FERR3, FOLT3, LIPD2, CMP3, MG3 #### [facility] [address] [facility] [place] [place] [address] #### ZINC2, WBB1O #### The performing lab is in the report. #### VD25H #### [facility] [address] [place] [address] Anion gap [Moles/Vol] 4 mmol/L Normal 3-13 [facility] Comment on above: Performed By: #### H A1C2, TSH5, B12, HEMOG, IRON3, FERR3, FOLT3, LIPD2, CMP3, MG3 #### [facility] [address] [place] [address] #### ZINC2, WBB1O #### The performing lab is in the report. #### VD25H #### [address] [place] [address] AST [Catalytic activity/Vol] 26 U/L Normal 15-46 [facility] Comment on above: Performed By: #### H A1C2, TSH5, B12, HEMOG, IRON3, FERR3, FOLT3, LIPD2, CMP3, MG3 #### [address] [address] #### ZINC2, WBB1O #### The performing lab is in the report. #### VD25H #### [address] [place] [address] Bilirubin [Mass/Vol] 0.3 mg/dL Normal 0.2-1.3 [facility] Comment on above: Performed By: #### H A1C2, TSH5, B12, HEMOG, IRON3, FERR3, FOLT3, LIPD2, CMP3, MG3 #### [address] [address] #### ZINC2, WBB1O #### The performing lab is in the report. #### VD25H #### [address] [place] [address] CO2 [Moles/Vol] 27 mmol/L Normal 22-30 [facility] Comment on above: Performed By: #### H A1C2, TSH5, B12, HEMOG, IRON3, FERR3, FOLT3, LIPD2, CMP3, MG3 #### [facility] [address] [place] [address] #### ZINC2, WBB1O #### The performing lab is in the report. #### VD25H #### [address] [place] [address] Creatinine [Mass/Vol] 0.60 mg/dL Normal 0.52-1.25 [facility] Comment on above: Performed By: #### H A1C2, TSH5, B12, HEMOG, IRON3, FERR3, FOLT3, LIPD2, CMP3, MG3 #### [facility] [address] [place] [address] #### ZINC2, WBB1O #### The performing lab is in the report. #### VD25H #### [facility] [address] [place] [address] eGFR OTHER > 90.0 Normal >60 [facility] Comment on above: Result Comment: KDIG O [...] IRON3, FERR3, FOLT3, LIPD2, CMP3, MG3 #### [facility] [address] [place] [address] #### ZINC2, WBB1O #### The performing lab is in the report. #### VD25H #### [facility] [address] [place] [address] GFR/1.73 sq M.predicted among blacks MDRD (S/P/Bld) [Vol rate/Area] mL/min/{1.73_m2} Normal >60 [facility] Comment on above: Performed By: #### H A1C2, TSH5, B12, HEMOG, IRON3, FERR3, FOLT3, LIPD2, CMP3, MG3 #### [facility] [address] [place] [address] #### ZINC2, WBB1O #### The performing lab is in the report. #### VD25H #### [place] [address] [place] [address] Glucose [Mass/Vol] 100 mg/dL Normal 70-100 [facility] Comment on above: Performed By: #### H A1C2, TSH5, B12, HEMOG, IRON3, FERR3, FOLT3, LIPD2, CMP3, MG3 #### [facility] [address] [place] [address] #### ZINC2, WBB1O #### The performing lab is in the report. #### VD25H #### [place] [address] [facility] [place] [address] Protein [Mass/Vol] 7.6 g/dL Normal 6.3-8.2 [facility] Comment on above: Performed By: #### H A1C2, TSH5, B12, HEMOG, IRON3, FERR3, FOLT3, LIPD2, CMP3, MG3 #### [facility] [place] [address] #### ZINC2, WBB1O #### The performing lab is in the report. #### VD25H #### [address] [place] [address] Urea nitrogen [Mass/Vol] 12 mg/dL Normal 9-20 [facility] Comment on above: Performed By: #### H A1C2, TSH5, B12, HEMOG, IRON3, FERR3, FOLT3, LIPD2, CMP3, MG3 #### [facility] [address] [place] [address] #### ZINC2, WBB1O #### The performing lab is in the report. #### VD25H #### [place] [address] [place] [address] Potassium [Moles/Vol] 4.8 mmol/L Normal 3.5-5.1 [facility] Comment on above: Performed By: #### H A1C2, TSH5, B12, HEMOG, IRON3, FERR3, FOLT3, LIPD2, CMP3, MG3 #### [facility] [address] [facility] [place] [place] [address] #### ZINC2, WBB1O #### The performing lab is in the report. #### VD25H #### [place] [address] [place] [address] Sodium [Moles/Vol] 139 mmol/L Normal 135-145 [facility] Comment on above: Performed By: #### H A1C2, TSH5, B12, HEMOG, IRON3, FERR3, FOLT3, LIPD2, CMP3, MG3 #### [facility] [address] [facility] [place] [place] [address] #### ZINC2, WBB1O #### The performing lab is in the report. #### VD25H #### [address] [place] [address] Albumin [Mass/Vol] 4.5 g/dL Normal 3.5-5.0 [facility] Comment on above: Performed By: #### H A1C2, TSH5, B12, HEMOG, IRON3, FERR3, FOLT3, LIPD2, CMP3, MG3 #### [address] [address] #### ZINC2, WBB1O #### The performing lab is in the report. #### VD25H #### [address] [place] [address] Chloride [Moles/Vol] 108 mmol/L High 98-107 [facility] Comment on above: Performed By: #### H A1C2, TSH5, B12, HEMOG, IRON3, FERR3, FOLT3, LIPD2, CMP3, MG3 #### [facility] [address] [facility] [place] [place] [address] #### ZINC2, WBB1O #### The performing lab is in the report. #### VD25H #### [facility] [address] [place] [address] Ferritinon 06-19-2021 Ferritin [Mass/Vol] 13 ng/mL Normal 6-137 [facility] Comment on above: Performed By: #### H A1C2, TSH5, B12, HEMOG, IRON3, FERR3, FOLT3, LIPD2, CMP3, MG3 #### [facility] [address] [place] [address] #### ZINC2, WBB1O #### The performing lab is in the report. #### VD25H #### [facility] [address] [place] [address] Folateon 06-19-2021 Folate 12.8 ng/mL Normal [facility] Comment on above: Result Comment: >2.8 Performed By: #### H A1C2, TSH5, B12, HEMOG, IRON3, FERR3, FOLT3, LIPD2, CMP3, MG3 #### [facility] [address] [place] [address] #### ZINC2, WBB1O #### The performing lab is in the report. #### VD25H #### [facility] [address] [address] [facility] [address] [facility] [place] [address] Hemoglobin A1Con 06-19-2021 Glucose [Mass/Vol] 97 mg/dL Normal [facility] Comment on above: Performed By: #### H A1C2, TSH5, B12, HEMOG, IRON3, FERR3, FOLT3, LIPD2, CMP3, MG3 #### [facility] [address] [place] [address] #### ZINC2, WBB1O #### The performing lab is in the report. #### VD25H #### [facility] [address] [address] [place] [address] HbA1c (Bld) [Mass fraction] 5.0 % Normal [facility] Comment on above: Result Comment: Norm al less than 5.7% Prediabetes 5.7% to 6.4% Diabetes 6.5% or higher --HgbA1C levels may not be accurate in patients who have renal disease, received recent blood transfusions, are anemic, or who have dyshemoglobinemia. Performed By: #### H A1C2, TSH5, B12, HEMOG, IRON3, FERR3, FOLT3, LIPD2, CMP3, MG3 #### [facility] [address] [place] [address] #### ZINC2, WBB1O #### The performing lab is in the report. #### VD25H #### [address] [place] [address] Hemogramon 06-19-2021 Erythrocyte distribution width (RBC) [Ratio] 13.0 % Normal 11.5-14.5 [facility] Comment on above: Performed By: #### H A1C2, TSH5, B12, HEMOG, IRON3, FERR3, FOLT3, LIPD2, CMP3, MG3 #### [place] [address] #### ZINC2, WBB1O #### The performing lab is in the report. #### VD25H #### [address] [place] [address] Hematocrit (Bld) [Volume fraction] 35.8 % Normal 35.0-47.0 [facility] Comment on above: Performed By: #### H A1C2, TSH5, B12, HEMOG, IRON3, FERR3, FOLT3, LIPD2, CMP3, MG3 #### [facility] [address] [place] [address] #### ZINC2, WBB1O #### The performing lab is in the report. #### VD25H #### [address] [place] [address] Hemoglobin (Bld) [Mass/Vol] 12.3 g/dL Normal 11.7-16.0 [facility] Comment on above: Performed By: #### H A1C2, TSH5, B12, HEMOG, IRON3, FERR3, FOLT3, LIPD2, CMP3, MG3 #### [facility] [address] [place] [address] #### ZINC2, WBB1O #### The performing lab is in the report. #### VD25H #### [facility] [address] [place] [address] MCH (RBC) [Entitic mass] 28.8 pg Normal 26.0-34.0 [facility] Comment on above: Performed By: #### H A1C2, TSH5, B12, HEMOG, IRON3, FERR3, FOLT3, LIPD2, CMP3, MG3 #### [facility] [address] [place] [address] #### ZINC2, WBB1O #### The performing lab is in the report. #### VD25H #### [facility] [address] [place] [address] MCHC 34.2 % Normal 32.0-36.0 [facility] Comment on above: Performed By: #### H A1C2, TSH5, B12, HEMOG, IRON3, FERR3, FOLT3, LIPD2, CMP3, MG3 #### [facility] [place] [address] #### ZINC2, WBB1O #### The performing lab is in the report. #### VD25H #### [facility] [address] [place] [address] MCV (RBC) [Entitic vol] 84.1 fL Normal 79.0-98.0 [facility] Comment on above: Performed By: #### H A1C2, TSH5, B12, HEMOG, IRON3, FERR3, FOLT3, LIPD2, CMP3, MG3 #### [facility] [address] [place] [address] #### ZINC2, WBB1O #### The performing lab is in the report. #### VD25H #### [facility] [address] [place] [address] Platelet mean volume (Bld) [Entitic vol] 7.4 fL Normal 7.4-10.4 [facility] Comment on above: Performed By: #### H A1C2, TSH5, B12, HEMOG, IRON3, FERR3, FOLT3, LIPD2, CMP3, MG3 #### [facility] [address] [facility] [place] [place] [address] #### ZINC2, WBB1O #### The performing lab is in the report. #### VD25H #### [place] [address] [place] [address] Platelets (Bld) [#/Vol] 356 10*3/uL Normal 140-440 [facility] Comment on above: Performed By: #### H A1C2, TSH5, B12, HEMOG, IRON3, FERR3, FOLT3, LIPD2, CMP3, MG3 #### [facility] [place] [place] [address] #### ZINC2, WBB1O #### The performing lab is in the report. #### VD25H #### [address] [place] [address] RBC (Bld) [#/Vol] 4.26 10*6/uL Normal 3.80-5.20 [facility] Comment on above: Performed By: #### H A1C2, TSH5, B12, HEMOG, IRON3, FERR3, FOLT3, LIPD2, CMP3, MG3 #### [facility] [place] [address] #### ZINC2, WBB1O #### The performing lab is in the report. #### VD25H #### [address] [place] [address] WBC (Bld) [#/Vol] 4.2 10*3/uL Normal 3.6-10.7 [facility] Comment on above: Performed By: #### H A1C2, TSH5, B12, HEMOG, IRON3, FERR3, FOLT3, LIPD2, CMP3, MG3 #### [address] [place] [address] #### ZINC2, WBB1O #### The performing lab is in the report. #### VD25H #### [address] [place] [address] Iron, Totalon 06-19-2021 Iron, Total 70 ug/dL Normal 37-170 [facility] Comment on above: Performed By: #### H A1C2, TSH5, B12, HEMOG, IRON3, FERR3, FOLT3, LIPD2, CMP3, MG3 #### [facility] [address] [facility] [place] [place] [address] #### ZINC2, WBB1O #### The performing lab is in the report. #### VD25H #### [facility] [address] [place] [address] Lipid Panelon 06-19-2021 Chol/HDL 3 Normal [facility] Comment on above: Result Comment: Ref Range: < 3 Low Risk for CHD 3-6 Mod Risk for CHD > 6 High Risk for CHD Performed By: #### H A1C2, TSH5, B12, HEMOG, IRON3, FERR3, FOLT3, LIPD2, CMP3, MG3 #### [facility] [address] [facility] [place] [place] [address] #### ZINC2, WBB1O #### The performing lab is in the report. #### VD25H #### [facility] [address] [place] [address] Cholesterol in HDL [Mass/Vol] 68 mg/dL High 40-60 [facility] Comment on above: Performed By: #### H A1C2, TSH5, B12, HEMOG, IRON3, FERR3, FOLT3, LIPD2, CMP3, MG3 #### [facility] [address] [place] [address] #### ZINC2, WBB1O #### The performing lab is in the report. #### VD25H #### [facility] [address] [place] [address] Low Density Lipoprotein 132 mg/dL Abnormal <100 [facility] Comment on above: Performed By: #### H A1C2, TSH5, B12, HEMOG, IRON3, FERR3, FOLT3, LIPD2, CMP3, MG3 #### [facility] [address] [facility] [place] [address] #### ZINC2, WBB1O #### The performing lab is in the report. #### VD25H #### [facility] [address] [place] [address] Triglyceride [Mass/Vol] 67 mg/dL Normal <150 [facility] Comment on above: Performed By: #### H A1C2, TSH5, B12, HEMOG, IRON3, FERR3, FOLT3, LIPD2, CMP3, MG3 #### [facility] [address] [place] [address] #### ZINC2, WBB1O #### The performing lab is in the report. #### VD25H #### [address] [place] [address] Cholesterol [Mass/Vol] 213 mg/dL Abnormal < 200 [facility] Comment on above: Performed By: #### H A1C2, TSH5, B12, HEMOG, IRON3, FERR3, FOLT3, LIPD2, CMP3, MG3 #### [address] [address] #### ZINC2, WBB1O #### The performing lab is in the report. #### VD25H #### [address] [place] [address] Magnesiumon 06-19-2021 Magnesium [Mass/Vol] 1.9 mg/dL Normal 1.6-2.3 [facility] Comment on above: Performed By: #### H A1C2, TSH5, B12, HEMOG, IRON3, FERR3, FOLT3, LIPD2, CMP3, MG3 #### [facility] [address] [place] [address] #### ZINC2, WBB1O #### The performing lab is in the report. #### VD25H #### [facility] [address] [facility] [place] [address] Thyroid Stim. Hormoneon 05-24 Thyroid Stim. Hormone 0.799 u[IU]/mL Normal 0.465-4.68 0 [facility] Comment on above: Performed By: #### H A1C2, TSH5, B12, HEMOG, IRON3, FERR3, FOLT3, LIPD2, CMP3, MG3 #### [facility] [address] [place] [address] #### ZINC2, WBB1O #### The performing lab is in the report. #### VD25H #### [facility] [address] [place] [address] Vit D 25-OH, Totalon 022 Vit D 25-OH, Total 38 ng/mL Normal 30-100 [facility] Comment on above: Result Comment: Ther apy is based on measurement of Total 25-OHD with the following classification levels: Less than 20 ng/mL: Indicative of Vit D deficiency 20-30 ng/mL: Suggests Vit D insufficiency Optimal: Greater than or equal to 30 ng/mL Test performed by [employer] MDX Competitive Immunoassay, measuring Total Vitamin D, not individual fractions. Performed By: #### H A1C2, TSH5, B12, HEMOG, IRON3, FERR3, FOLT3, LIPD2, CMP3, MG3 #### [address] [place] [address] #### ZINC2, WBB1O #### The performing lab is in the report. #### VD25H #### [address] [place] [address] Vitamin B12on 06-19-2021 Cobalamin (Vitamin B12) [Mass/Vol] 505 pg/mL Normal 239-931 [facility] Comment on above: Performed By: #### H A1C2, TSH5, B12, HEMOG, IRON3, FERR3, FOLT3, LIPD2, CMP3, MG3 #### [facility] [address] [place] [address] #### ZINC2, WBB1O #### The performing lab is in the report. #### VD25H #### [facility] [address] [place] [address] US Abdomen Completeon 2021 US Abdomen Complete Patient Name: DARI APARICIO Ultrasound ACCESSION EXAM DATE/TIME PROCEDURE ORDERING PROVIDER [id number] 06/15/2021 11:20 EST US Abdomen Complete [id number] BEARD CPT code 62231 Reason For Exam (US Abdomen Complete) Abdominal Pain Report ULTRASOUND COMPLETE ABDOMEN CLINICAL INDICATION: Preoperative exam TECHNIQUE: Ultrasound of the complete abdomen COMPARISON: None FINDINGS: Liver: Generalized increased hepatic echogenicity likely corresponding to hepatic steatosis. Normal size and contour. No focal lesion identified. Gallbladder: Normal. No pericholecystic inflammatory change. Negative sonographic Rausch sign reported by the research food technologist. Bile ducts: No intrahepatic and extrahepatic [...] Transcribed Date and Time: 06/15/2021 11:42 Normal [facility] [place] ARTHR/ASP/INJ MAJOR JT/BU RSA RT WO USon 04-30-2020 Patient Name: DARI APARICIO Fluoroscopy ACCESSION EXAM DATE/TIME PROCEDURE ORDERING PROVIDER [id number] 04/30/2020 09:57 EST RF Arthrogram Aspir Inj MD ANGUS, ZAC Blair Jt Right RISTE CPT code 01567 [id number] Reason For Exam (RF Arthrogram Aspir Inj [...] KRIKOR Transcribed Date and Time: 04/30/2020 3:01 [place], [place], [facility] Incoming Radiology Results From [facility] - 04/30/2020 3:02 PM EST [facility]: [id number] ACCESSION EXAM DATE/TIME PROCEDURE ORDERING PROVIDER [id number] 04/30/2020 09:57 EST RF Arthrogram Aspir Facundo POOLE MD, JOVAN Maj Jt Right RISTE CPT code 31938 [id number] Reason For Exam (RF Arthrogram Aspir Inj [...] KRIKOR Transcribed Date and Time: 04/30/2020 3:01 [place] MRI Low Ext Joint w/ Contras t Righton 04-30-2020 MRI Low Ext Joint w/ Contrast Right Patient Name: DARI APARICIO [facility]#: [id number] Magnetic Resonance Imaging ACCESSION EXAM DATE/TIME PROCEDURE ORDERING PROVIDER [id number] 04/30/2020 10:39 EST MRI Low Ext Joint w/ MD POOLE JOVAN Contrast Right RISTE CPT code 74478 Reason For Exam (MRI Low Ext Joint [...] Transcribed Date and Time: 04/30/2020 3:03 Normal [facility] MRI Lower Extremity Right W JT W Contraston 04-30-2020 Patient Name: DARI APARICIO Magnetic Resonance Imaging ACCESSION EXAM DATE/TIME PROCEDURE ORDERING PROVIDER [id number] 04/30/2020 10:39 EST MRI Low Ext Joint w/ MD POOLE JOVAN Contrast Right RISTE CPT code 67168 Reason For Exam (MRI Low Ext Joint [...] KRIKOR Transcribed Date and Time: 04/30/2020 3:03 [facility], [facility] Incoming Radiology Results From [facility] - 04/30/2020 3:10 PM EST [facility]: [id number] Resonance Imaging ACCESSION EXAM DATE/TIME PROCEDURE ORDERING PROVIDER [id number] 04/30/2020 10:39 EST MRI Low Ext Joint w/ MD ANGUS, ZAC Contrast Right RISTE CPT code 82476 Reason For Exam (MRI Low Ext Joint [...] KRIKOR Transcribed Date and Time: 04/30/2020 3:03 [place], [place] RF Arthrogram Aspir Inj Blair Jt Righton 04-30-2020 RF Arthrogram Aspir Inj Blair Jt Right Patient Name: DARI APARICIO [facility]#: [id number] Fluoroscopy ACCESSION EXAM DATE/TIME PROCEDURE ORDERING PROVIDER [id number] 04/30/2020 09:57 EST RF Arthrogram Aspir Inj MD ANGUS, ZAC Blair Jt Right RISTE CPT code 99888 [id number] Reason For Exam (RF Arthrogram Aspir Inj [...] Transcribed Date and Time: 04/30/2020 3:01 Normal [facility] Progress Noteon 02-05-2020 Waxer Operator Authentication Interface Message Text DIABETES AND PROGRAM COMANAGEMENT Referring/Requesting Provider: Azucena Cadena MD PCP: Deon Alfaro MD CHIEF COMPLAINT: T2DM HISTORY OF [...] ML MISC use as directed once daily Qmesgs-QkHxi-TwDakRk-FA -Braymer (OB COMPLETE PETITE) 35-5-1-200 MG CAPS gummies [...] Cervical length screening echocardiogram DELIVERY PLAN Hospital: [facility] Repeat CD at 39 weeks or sooner if indicated. 02/[address] Lang at [facility] GBS culture:per OB Contraception: per primary OB [...] was spent counseling and coordinating care. Normal [facility] Progress Noteon 01-15-2020 Waxer Operator Authentication Interface Message Text DIABETES AND PROGRAM COMANAGEMENT Referring/Requesting Provider: Azucena Cadena MD PCP: Deon Alfaro MD CHIEF COMPLAINT: GDMA T2DM T1DM [...] APRN-CNP Medication Sig Dispense Refill nitrofurantoin monohydrate ([id number]) 100 MG capsule 100 mg At bedtime ONE TOUCH ULTRA TEST test strip use as directed FASTING AND 2 HOURS AFTER EACH MEAL BD INSULIN SYRINGE U/F 31G X 5/16 0.5 ML MISC use as directed once daily Dyunuq-MzCen-McPiySk-FA -Braymer (OB COMPLETE PETITE) 35-5-1-200 MG CAPS gummies [...] Cervical length screening echocardiogram DELIVERY PLAN Hospital: [facility] Repeat CD at 39 weeks or sooner if indicated. 02/[address] Lang at [facility] GBS culture:per OB Contraception: per primary OB [...] and comanagement appointment/ sees OB for testing /fridays Precautions reinforced The total patient time of the visit was 10 minutes, of which was greater than 50% of the time was spent counseling and coordinating care. Normal [facility] Progress Noteon 12-28-2019 Waxer Operator Authentication Interface Message Text DIABETES AND PROGRAM COMANAGEMENT Referring/Requesting Provider: Afsaneh Snow, ROOF TRUSS DETAILER-* PCP: Deon Alfaro MD CHIEF COMPLAINT: T2DM HISTORY OF [...] MD Medication Sig Dispense Refill nitrofurantoin monohydrate (IMLM8LLG) 100 MG capsule 100 mg At bedtime ARTEMIO 275 MG/1.1ML SOAJ Injection Inject 275 mg into the muscle once a week ONE TOUCH ULTRA TEST test strip use as directed FASTING AND 2 HOURS AFTER EACH MEAL BD INSULIN SYRINGE U/F 31G X 5/16 0.5 ML MISC use as directed once daily Pmibcp-LgHjj-KkZrdCo-FA -Braymer (OB COMPLETE PETITE) 35-5-1-200 MG CAPS gummies [...] Cervical length screening echocardiogram DELIVERY PLAN Hospital: [facility] (Patient prefers [place] delivery with M since Dr. Cadena is out of town) [...] upcoming visit- she may request delivery in [place]. Confirmed desire to deliver at [facility], plan for [place]ATT at 36 weeks [place], [...] was spent counseling and coordinating care. Normal [facility] Progress Noteon 12-12-2019 Waxer Operator Authentication Interface Message Text DIABETES AND PROGRAM COMANAGEMENT Referring/Requesting Provider: Azucena Cadena MD PCP: Deon Alfaro MD CHIEF COMPLAINT: T2DM HISTORY OF [...] ML MISC use as directed once daily Ysdecr-OnBys-RfXiwTm-FA -Braymer (OB COMPLETE PETITE) 35-5-1-200 MG CAPS gummies [...] Cervical length screening echocardiogram DELIVERY PLAN Hospital: [facility] (Patient prefers [place] delivery with [facility] since Dr. Cadena is out of [...] upcoming visit- she may request delivery in [place]. Confirmed desire to deliver at [facility], plan for [place] at 36 weeks GA [...] was spent counseling and coordinating care. Normal [facility] Progress Noteon 11-30-2019 Waxer Operator Authentication Interface Message Text DIABETES AND PROGRAM COMANAGEMENT Referring/Requesting Provider: Afsaneh Snow APRN PCP: Deon Alfaro MD CHIEF COMPLAINT: T2DM HISTORY OF [...] for the 11/30/19 encounter (Office Visit) with Shawn, Nicole, MD Medication Sig Dispense Refill cyclobenzaprine (FLEXERIL) [...] ML MISC use as directed once daily Inqrcl-OvMkc-SxSukWr-FA -Braymer (OB COMPLETE PETITE) 35-5-1-200 MG CAPS gummies [...] Cervical length screening echocardiogram DELIVERY PLAN Hospital: [facility] (Patient prefers [place] delivery with M since Dr. Cadena is out of town) [...] upcoming visit- she may request delivery in [place]. History of delivery 02/01/2019 labor precautions discussed. Continue 17 O[facility] Follow up in 2 weeks. The total patient time of the visit was 45 minutes, of which was greater than 50% of the time was spent counseling and coordinating care. Normal [facility] Progress Noteon 10-30-2019 Waxer Operator Authentication Interface Message Text This is a [...] 10/30/2019 Medication Sig Dispense Refill nitrofurantoin monohydrate (EJKU1JVO) 100 MG capsule take 1 capsule by [...] ML MISC use as directed once daily Kykkhr-ErSnv-XtXkvPu-FA -Braymer (OB COMPLETE PETITE) 35-5-1-200 MG CAPS gummies [...] on phone: None Gets together: None Attends congregational service: None Active member of club or [...] Cervical length screening echocardiogram DELIVERY PLAN Hospital: [facility] Repeat CD at 39 weeks or sooner [...] was spent counseling and coordinating care. Normal [facility] Progress Noteon 10-18-2019 Waxer Operator Authentication Interface Message Text Dari Aparicio is a new patient who's primary care provider is Deon Alfaro MD here for evaluation of heart. Chief Complaint Patient presents with ECHO echo for diabetes and ? VSD History of Presenting Problem HPI Thank you for consulting us regarding Dari Aparicio. She is referred to the cardiology clinic at [facility] for evaluation of the heart. I saw [...] MEAL BD INSULIN SYRINGE U/F 31G X 16 0.5 ML MISC use as directed once daily Kaedqu-UiDwm-XoGocKo-FA -Braymer (OB COMPLETE PETITE) 35-5-1-200 MG CAPS gummies [...] on phone: None Gets together: None Attends congregational service: None Active member of club or [...] There was a patent foramen ovale, with ejozb-at-vemx shunt. Tricuspid valve: Normal tricuspid valve. There [...] to see in cardiology clinic here at [facility], 1-2 months after the or earlier if cardiac condition/status changes in any way. Counseling and/or coordination of care was greater than 35 minutes which is more than 50% of the total time of 60 minutes spent on the encounter. Blanco Oh MD 10/18/2019 Normal [facility] Progress Noteon 10-05-2019 Waxer Operator Authentication Interface Message Text This is a [...] MEAL BD INSULIN SYRINGE U/F 31G X 10/05 0.5 ML MISC use as directed once daily Aizofr-DoLyo-UoZruVi-FA -Braymer (OB COMPLETE PETITE) 35-5-1-200 MG CAPS gummies [...] on phone: None Gets together: None Attends congregational service: None Active member of club or [...] of other high risk , antepartum 09/04/2019 [facility] PLAN OF CARE MD/OB APPOINTMENTS Genetic screening: per OB How often should patient be evaluated? Q 1-2 weeks prn diabetes until 32 weeks then weekly until delivery Work restrictions: NA EVALUATION surveillance: 2x per week starting at 32 weeks Ultrasound: growth Q4, Cervical length screening echocardiogram DELIVERY PLAN Hospital: [facility] Repeat CD at 39 weeks or sooner [...] was spent counseling and coordinating care. Normal [facility] Progress Noteon 09-11-2019 Waxer Operator Authentication Interface Message Text DIABETES AND PROGRAM COMANAGEMENT This is a telemedicine (video) visit requested by the patient that was performed with the originating site at home and the distant site at the providers office. This visit occurred during the Coronavirus (COVID-19) Public Health Emergency. Referring/Requesting Provider: Azucena Cadena MD CHIEF COMPLAINT: GDMA2 HISTORY OF PRESENT ILLNESS: Dari is a 29 y.o. at 17w0d [...] MISC use as directed once daily ? Gbteyz-SdHsw-TpKgiCo-FA -Braymer (OB COMPLETE PETITE) 35-5-1-200 MG CAPS gummies [...] Cervical length screening echocardiogram DELIVERY PLAN Hospital: [facility] Repeat CD at 39 weeks or sooner [...] was spent counseling and coordinating care. Normal [facility] Progress Noteon 09-04-2019 Waxer Operator Authentication Interface Message Text This is a telemedicine (video) visit requested by the patient that was performed with the originating site at home and the distant site at the providers office. This visit occurred during the Coronavirus (COVID-19) Public Health Emergency. I spent 30 minutes of medical discussion with the patient via video. Normal [facility] Waxer Operator Authentication Interface Message Text DIABETES AND PROGRAM [facility] MATERNAL- MEDICINE CONSULT This appointment was changed to a telehealth visit due to the COVID-19 Pandemic. Referring/Requesting Provider: Azucena Cadena MD PCP: Deon Alfaro MD CHIEF COMPLAINT: Gestational diabetes, suspected [...] 1 1 # Outcome Date GA Lbr Alcidse/2nd Weight Sex Delivery Anes PTL Lv 3 [...] 4 mg by mouth as needed ? Sdboxp-AmDbc-MnQmzCh-FA -Braymer (OB COMPLETE PETITE) 35-5-1-200 MG CAPS ? [...] carbohydrate meal plan created by a registered radiation therapist who is a faa certified powerplant mechanic ?? At least 30-60 minutes of physical [...] delivery with our diabetic team, including our supervisor epoxy fabrication and specialist physician. ? Supervision of other high risk , antepartum 09/04/2019 COMANAGE PLAN OF CARE MD/OB APPOINTMENTS Genetic screening: per OB How often should patient be evaluated? Q 1-2 weeks prn diabetes until 32 weeks then weekly until delivery Work restrictions: NA EVALUATION surveillance: 1x per week starting at 32 weeks Ultrasound: growth Q4, Cervical length screening echocardiogram DELIVERY PLAN Hospital: [facility] Repeat CD at 39 weeks or sooner [...] was spent counseling and coordinating care. Normal [facility] Office Visit: ER Follow UP V [facility] 04-19-2017 Documentation of current medications (procedure) Done Invalid Interpretation Code [facility] Documentation of current medications (procedure) T Invalid Interpretation Code [facility] Tobacco smoking status NHIS Never Invalid Interpretation Code [facility] Tobacco use CPHS Never smoker Invalid Interpretation Code [facility] Office Visit: ER Follow UP V [facility] 08-22-2015 General categories [Interpretation] of Cervical or vaginal smear or scraping by Cyto stain Normal Invalid Interpretation Code [facility] Gram stain for investigation of transfusion reaction Microscopic observation Gram stain Nom (Unsp spec) [facility] Work Phone: Thin prep Papanicolaou smear with manual screening Cytopathology procedure, preparation of smear, genital source Normal genital tasha isolated [facility] Work Phone: Vital Signs Date Time Vital Sign Value Performing Clinician Facility 12-19-2024 10:34-0400 Body height 157.5 cm Anai Pierre MD Work Phone: [facility] 12-19-2024 10:34-0400 Body mass index (BMI) [Ratio] 31.02 kg/m2 Anai Pierre MD Work Phone: [facility] 12-19-2024 10:34-0400 Body weight 76.93 kg Anai Pierre MD Work Phone: [facility] 12-19-2024 10:34-0400 Diastolic blood pressure 75 mm[Hg] Anai Pierre MD Work Phone: [facility] 12-19-2024 10:34-0400 Heart rate 80 /min Anai Pierre MD Work Phone: [facility] 12-19-2024 10:34-0400 Systolic blood pressure 113 mm[Hg] Anai Pierre MD Work Phone: [facility] 12-03-2024 15:01-0400 Body height 154.94 cm No Primary Care Physician [facility] 12-03-2024 14:51-0400 Body mass index (BMI) [Ratio] 32.3 kg/m2 No Primary Care Physician [facility] 12-03-2024 14:51-0400 Body weight 77.73 kg No Primary Care Physician [facility] 12-03-2024 14:51-0400 Diastolic blood pressure 70 mm[Hg] No Primary Care Physician [facility] 12-03-2024 14:51-0400 Systolic blood pressure 110 mm[Hg] No Primary Care Physician [facility] 11-07-2024 10:30-0400 Body height 157.5 cm Anai Pierre MD Work Phone: [facility] 11-07-2024 10:30-0400 Body mass index (BMI) [Ratio] 31.31 kg/m2 Anai Pierre MD Work Phone: [facility] 11-07-2024 10:30-0400 Body weight 77.66 kg Anai Pierre MD Work Phone: [facility] 11-07-2024 10:30-0400 Diastolic blood pressure 75 mm[Hg] Anai Pierre MD Work Phone: [facility] 11-07-2024 10:30-0400 Heart rate 82 /min Anai Pierre MD Work Phone: [facility] 11-07-2024 10:30-0400 Systolic blood pressure 109 mm[Hg] Anai Pierre MD Work Phone: [facility] 10-08-2024 09:07-0400 Body height 154.94 cm No Primary Care Physician [facility] 09-25-2024 08:32-0400 Body mass index (BMI) [Ratio] 32.1 kg/m2 No Primary Care Physician [facility] 09-25-2024 08:32-0400 Body weight 77.28 kg No Primary Care Physician [facility] 09-25-2024 08:32-0400 Diastolic blood pressure 64 mm[Hg] No Primary Care Physician [facility] 09-25-2024 08:32-0400 Systolic blood pressure 98 mm[Hg] No Primary Care Physician [facility] 09-17-2024 10:30-0400 Body mass index (BMI) [Ratio] 32.5 kg/m2 No Primary Care Physician [facility] 09-17-2024 10:30-0400 Body temperature 97.5 [degF] No Primary Care Physician [facility] 09-17-2024 10:30-0400 Body weight 78.01 kg No Primary Care Physician [facility] 09-17-2024 10:30-0400 Diastolic blood pressure 66 mm[Hg] No Primary Care Physician [facility] 09-17-2024 10:30-0400 Heart rate 88 /min No Primary Care Physician [facility] 09-17-2024 10:30-0400 Respiratory rate 18 /min No Primary Care Physician [facility] 09-17-2024 10:30-0400 SaO2% (BldA) [Mass fraction] 99 % No Primary Care Physician [facility] 09-17-2024 10:30-0400 Systolic blood pressure 124 mm[Hg] No Primary Care Physician [facility] 09-03-2024 09:22-0400 Body mass index (BMI) [Ratio] 31.4 kg/m2 No Primary Care Physician [facility] 09-03-2024 09:22-0400 Body weight 75.29 kg No Primary Care Physician [facility] 08-22-2024 14:49-0400 Body height 154.94 cm Vidhya Anderson NP-C Work Phone: [facility] 08-22-2024 14:49-0400 Body mass index (BMI) [Ratio] 32.1 kg/m2 Vidhya Anderson [employer]IVER[employer]C Work Phone: [facility] 08-22-2024 14:49-0400 Body temperature 97.8 [degF] Vidhya Anderson [employer] Work Phone: [facility] 08-22-2024 14:49-0400 Body weight 77.11 kg Vidhya Anderson [employer] Work Phone: [facility] 08-22-2024 14:49-0400 Diastolic blood pressure 62 mm[Hg] Vidhya Anderson [employer]IVER[employer]C Work Phone: [facility] 08-22-2024 14:49-0400 Heart rate 105 /min Vidhya Anderson [employer] Work Phone: [facility] 08-22-2024 14:49-0400 Respiratory rate 18 /min Vidhya Anderson [employer] Work Phone: [facility] 08-22-2024 14:49-0400 SaO2% (BldA) [Mass fraction] 98 % Vidhya Anderson [employer] Work Phone: [facility] 08-22-2024 14:49-0400 Systolic blood pressure 130 mm[Hg] Vidhya Anderson [employer]IVER[employer] Work Phone: [facility] 07-28-2024 10:25-0500 Body temperature 98.2 [degF] Vidhya Anderson [employer]IVER[employer] Work Phone: [facility] 07-28-2024 10:25-0500 Diastolic blood pressure 76 mm[Hg] Vidhya Anderson [employer]IVER[employer] Work Phone: [facility] 07-28-2024 10:25-0500 Heart rate 82 /min Vidhya Anderson [employer]IVER[employer]C Work Phone: [facility] 07-28-2024 10:25-0500 Respiratory rate 14 /min Vidhya Anderson [employer]IVER[employer] Work Phone: [facility] 07-28-2024 10:25-0500 SaO2% (BldA) [Mass fraction] 98 % Vidhya Anderson [employer]IVER[employer] Work Phone: [facility] 07-28-2024 10:25-0500 Systolic blood pressure 112 mm[Hg] Vidhya Anderson [employer]IVER[employer] Work Phone: [facility] 07-13-2024 14:15-0500 Body height 157.5 cm Anai Pierre MD Work Phone: [facility] 07-13-2024 14:15-0500 Body mass index (BMI) [Ratio] 30.36 kg/m2 Anai Pierre MD Work Phone: [facility] 07-13-2024 14:15-0500 Body weight 75.3 kg Anai Pierre MD Work Phone: [facility] 07-13-2024 14:15-0500 Diastolic blood pressure 73 mm[Hg] Anai Pierre MD Work Phone: [facility] 07-13-2024 14:15-0500 Heart rate 87 /min Anai Pierre MD Work Phone: [facility] 07-13-2024 14:15-0500 Systolic blood pressure 119 mm[Hg] Anai Pierre MD Work Phone: [facility] 07-10-2024 15:38-0500 Body temperature 98.5 [degF] Vidhya Anderson [employer] Work Phone: [facility] 07-10-2024 15:38-0500 Diastolic blood pressure 65 mm[Hg] Vidhya Anderson [employer] Work Phone: [facility] 07-10-2024 15:38-0500 Heart rate 77 /min Vidhya Anderson [employer] Work Phone: [facility] 07-10-2024 15:38-0500 Respiratory rate 16 /min Vidhya Anderson [employer] Work Phone: [facility] 07-10-2024 15:38-0500 SaO2% (BldA) [Mass fraction] 95 % Vidhya Anderson [employer]IVER[employer] Work Phone: [facility] 07-10-2024 15:38-0500 Systolic blood pressure 112 mm[Hg] Vidhya Anderson [employer] DRIVER[employer]C Work Phone: [facility] 07-10-2024 12:11-0500 Body mass index (BMI) [Ratio] 31.1 kg/m2 Vidhya Justin [employer] Work Phone: [facility] 07-10-2024 12:11-0500 Body weight 74.84 kg Vidhya Anderson [employer] Work Phone: [facility] 07-10-2024 11:51-0500 Body mass index (BMI) [Ratio] 31.31 kg/m2 Vandana Mireles APRN.HAND CLERICAL VERIFIER Work Phone: [facility] 07-10-2024 11:51-0500 Body temperature 97.7 [degF] Vandana Mireles APRN.HAND CLERICAL VERIFIER Work Phone: [facility] 07-10-2024 11:51-0500 Body weight 76.4 kg Vandana Mireles APRN.HAND CLERICAL VERIFIER Work Phone: [facility] 07-10-2024 11:51-0500 Heart rate 96 /min Vandana Mireles APRN.HAND CLERICAL VERIFIER Work Phone: [facility] 07-10-2024 11:51-0500 Respiratory rate 16 /min Vandana Mireles APRN.HAND CLERICAL VERIFIER Work Phone: [facility] 07-10-2024 11:51-0500 SaO2% (BldA) [Mass fraction] 99 % Vandana Mireles APRN.HAND CLERICAL VERIFIER Work Phone: [facility] 07-08-2024 10:16-0500 Body mass index (BMI) [Ratio] 31.35 kg/m2 Shital Cummins APRN.HAND CLERICAL VERIFIER Work Phone: [facility] 07-08-2024 10:16-0500 Body temperature 98.01 [degF] Shital Cummins APRN.HAND CLERICAL VERIFIER Work Phone: [facility] 07-08-2024 10:16-0500 Body weight 76.5 kg Shital Cummins APRN.HAND CLERICAL VERIFIER Work Phone: [facility] 07-08-2024 10:16-0500 Diastolic blood pressure 72 mm[Hg] Shital Cummins ROOF TR[employer] DETAILER.HAND CLERICAL VERIFIER Work Phone: [facility] 07-08-2024 10:16-0500 Heart rate 89 /min Shital Praisler-Wood ROOF TRUSS DETAILER.HAND CLERICAL VERIFIER Work Phone: [facility] 07-08-2024 10:16-0500 Respiratory rate 18 /min Shital Praisler-Wood ROOF TRUSS DETAILER.HAND CLERICAL VERIFIER Work Phone: [facility] 07-08-2024 10:16-0500 SaO2% (BldA) [Mass fraction] 100 % Shital Praisler-Wood ROOF TRUSS DETAILER.HAND CLERICAL VERIFIER Work Phone: [facility] 07-08-2024 10:16-0500 Systolic blood pressure 122 mm[Hg] Shital Praisler-Wood ROOF TRUSS DETAILER.HAND CLERICAL VERIFIER Work Phone: [facility] 06-15-2024 09:48-0500 Body height 157.5 cm Anai Pierre MD Work Phone: [facility] 06-15-2024 09:48-0500 Body mass index (BMI) [Ratio] 30.98 kg/m2 Anai Pierre MD Work Phone: [facility] 06-15-2024 09:48-0500 Body weight 76.84 kg Anai Pierre MD Work Phone: [facility] 06-15-2024 09:48-0500 Diastolic blood pressure 59 mm[Hg] Anai Pierre MD Work Phone: [facility] 06-15-2024 09:48-0500 Heart rate 76 /min Anai Pierre MD Work Phone: [facility] 06-15-2024 09:48-0500 Systolic blood pressure 96 mm[Hg] Anai Pierre MD Work Phone: [facility] 06-06-2024 11:00-0500 Body height 156.2 cm Santino Aguilera MD Work Phone: [facility] 06-06-2024 11:00-0500 Body mass index (BMI) [Ratio] 29.93 kg/m2 Santino Aguilera MD Work Phone: [facility] 06-06-2024 11:00-0500 Body weight 73.03 kg Santino Aguilera MD Work Phone: [facility] 05-04-2024 21:18-0500 Diastolic Blood Pressure Non-Invasive 72 mm[Hg] CHRIS FROMTERRIT DO [facility] 05-04-2024 21:18-0500 Heart rate 75 /min CHRIS FROMMELT DO [facility] 05-04-2024 21:18-0500 Respiratory rate 16 /min CHRIS FROMTERRIT DO [facility] 05-04-2024 21:18-0500 Systolic Blood Pressure Non-Invasive 118 mm[Hg] CRHIS FROMMELT DO [facility] 05-04-2024 19:20-0500 Body temperature 98.6 [degF] CHRIS BLEDSOEMELT DO [facility] 05-04-2024 19:20-0500 Diastolic Blood Pressure Non-Invasive 62 mm[Hg] CHRIS FROMMELT DO [facility] 05-04-2024 19:20-0500 Heart rate 68 /min CHRIS FROMMELT DO [facility] 05-04-2024 19:20-0500 Respiratory rate 18 /min CHRIS FROMMELT DO [facility] 05-04-2024 19:20-0500 Systolic Blood Pressure Non-Invasive 117 mm[Hg] CHRIS FROMMELT DO [facility] 03-30-2024 08:46-0500 Body mass index (BMI) [Ratio] 28.07 kg/m2 Dari White ROOF TRUSS DETAILER.HAND CLERICAL VERIFIER Work Phone: [facility] 03-30-2024 08:46-0500 Body temperature 98.1 [degF] Dari White ROOF TRUSS DETAILER.HAND CLERICAL VERIFIER Work Phone: [facility] 03-30-2024 08:46-0500 Body weight 68.5 kg Dari White ROOF TRUSS DETAILER.HAND CLERICAL VERIFIER Work Phone: [facility] 03-30-2024 08:46-0500 Diastolic blood pressure 76 mm[Hg] Dari White ROOF TRUSS DETAILER.HAND CLERICAL VERIFIER Work Phone: [facility] 03-30-2024 08:46-0500 Heart rate 116 /min Dari White ROOF TRUSS DETAILER.HAND CLERICAL VERIFIER Work Phone: [facility] 03-30-2024 08:46-0500 Respiratory rate 16 /min Dari White ROOF TRUSS DETAILER.HAND CLERICAL VERIFIER Work Phone: [facility] 03-30-2024 08:46-0500 SaO2% (BldA) [Mass fraction] 98 % Dari White ROOF TRUSS DETAILER.HAND CLERICAL VERIFIER Work Phone: [facility] 03-30-2024 08:46-0500 Systolic blood pressure 109 mm[Hg] Dari White ROOF TRUSS DETAILER.HAND CLERICAL VERIFIER Work Phone: [facility] 12-09-2023 11:19-0400 Body height 157.5 cm Anai Pierre MD Work Phone: [facility] 12-09-2023 11:19-0400 Body mass index (BMI) [Ratio] 26.08 kg/m2 Anai Pierre MD Work Phone: [facility] 12-09-2023 11:19-0400 Body weight 64.68 kg Anai Pierre MD Work Phone: [facility] 12-09-2023 11:19-0400 Diastolic blood pressure 69 mm[Hg] Anai Pierre MD Work Phone: [facility] 12-09-2023 11:19-0400 Heart rate 71 /min Anai Pierre MD Work Phone: [facility] 12-09-2023 11:19-0400 Systolic blood pressure 117 mm[Hg] Anai Pierre MD Work Phone: [facility] 11-02-2023 08:23-0400 Body height 157.5 cm Anai Pierre MD Work Phone: [facility] 11-02-2023 08:23-0400 Body mass index (BMI) [Ratio] 26.45 kg/m2 Anai Pierre MD Work Phone: [facility] 11-02-2023 08:23-0400 Body weight 65.59 kg Anai Pierre MD Work Phone: [facility] 11-02-2023 08:23-0400 Diastolic blood pressure 68 mm[Hg] Anai Pierre MD Work Phone: [facility] 11-02-2023 08:23-0400 Heart rate 76 /min Anai Pierre MD Work Phone: [facility] 11-02-2023 08:23-0400 Systolic blood pressure 103 mm[Hg] Anai Pierre MD Work Phone: [facility] 08-09-2023 12:50-0400 Body height 156.2 cm Arcadio Nguyễn MD Work Phone: [facility] 08-09-2023 12:50-0400 Body mass index (BMI) [Ratio] 25.41 kg/m2 Arcadio Nguyễn MD Work Phone: [facility] 08-09-2023 12:50-0400 Body temperature 98.8 [degF] Arcadio Nguyễn MD Work Phone: [facility] 08-09-2023 12:50-0400 Body weight 62.01 kg Arcadio Nguyễn MD Work Phone: [facility] 07-29-2023 11:32-0500 Body height 157.5 cm Anai Pierre MD Work Phone: [facility] 07-29-2023 11:32-0500 Body mass index (BMI) [Ratio] 25.39 kg/m2 Anai Pierre MD Work Phone: [facility] 07-29-2023 11:32-0500 Body weight 62.96 kg Anai Pierre MD Work Phone: [facility] 07-29-2023 11:32-0500 Diastolic blood pressure 68 mm[Hg] Anai Pierre MD Work Phone: [facility] 07-29-2023 11:32-0500 Heart rate 73 /min Anai Pierre MD Work Phone: [facility] 07-29-2023 11:32-0500 Systolic blood pressure 104 mm[Hg] Anai Pierre MD Work Phone: [facility] 06-03-2023 12:01-0500 Body height 157.5 cm Anai Pierre MD Work Phone: [facility] 06-03-2023 12:01-0500 Body mass index (BMI) [Ratio] 25.75 kg/m2 Anai Pierre MD Work Phone: [facility] 06-03-2023 12:01-0500 Body weight 63.87 kg Anai Pierre MD Work Phone: [facility] 06-03-2023 12:01-0500 Diastolic blood pressure 72 mm[Hg] Anai Pierre MD Work Phone: [facility] 06-03-2023 12:01-0500 Heart rate 80 /min Anai Pierre MD Work Phone: [facility] 06-03-2023 12:01-0500 Systolic blood pressure 108 mm[Hg] Anai Pierre MD Work Phone: [facility] 06-01-2023 14:51-0500 Body height 154.94 cm DO Mega Cordova Work Phone: [facility] 06-01-2023 14:50-0500 Body mass index (BMI) [Ratio] 26.6 kg/m2 DO Mega Tasha Work Phone: [facility] 06-01-2023 14:50-0500 Body weight 64.01 kg DO Mega Tasha Work Phone: [facility] 06-01-2023 14:50-0500 Diastolic blood pressure 74 mm[Hg] DO Mega Tasha Work Phone: [facility] 06-01-2023 14:50-0500 Systolic blood pressure 122 mm[Hg] DO Mega Tasha Work Phone: [facility] 05-24-2023 14:39-0500 Body height 154.94 cm DO Mega Tasha Work Phone: [facility] 05-24-2023 14:39-0500 Body mass index (BMI) [Ratio] 27.1 kg/m2 DO Mega Tasha Work Phone: [facility] 05-24-2023 14:39-0500 Body weight 65.03 kg DO Mega Tasha Work Phone: [facility] 05-24-2023 14:39-0500 Diastolic blood pressure 68 mm[Hg] DO Mega Tasha Work Phone: [facility] 05-24-2023 14:39-0500 Systolic blood pressure 112 mm[Hg] DO Mega Tasha Work Phone: [facility] 05-10-2023 09:17-0500 Body temperature 97.8 [degF] DO Mega Tasha Work Phone: [facility] 05-10-2023 09:17-0500 Diastolic blood pressure 74 mm[Hg] DO Mega Tasha Work Phone: [facility] 05-10-2023 09:17-0500 Heart rate 108 /min DO Mega Tasha Work Phone: [facility] 05-10-2023 09:17-0500 Respiratory rate 12 /min DO Mega Tasha Work Phone: [facility] 05-10-2023 09:17-0500 SaO2% (BldA) [Mass fraction] 98 % DO Megase Colesnger Work Phone: [facility] 05-10-2023 09:17-0500 Systolic blood pressure 107 mm[Hg] DO Mega Tasha Work Phone: [facility] 04-29-2023 14:01-0500 Body height 157.5 cm Anai Pierre MD Work Phone: [facility] 04-29-2023 14:01-0500 Body mass index (BMI) [Ratio] 27.53 kg/m2 Anai Pierre MD Work Phone: [facility] 04-29-2023 14:01-0500 Body weight 68.27 kg Anai Pierre MD Work Phone: [facility] 04-29-2023 14:01-0500 Diastolic blood pressure 76 mm[Hg] Anai Pierre MD Work Phone: [facility] 04-29-2023 14:01-0500 Heart rate 68 /min Anai Pierre MD Work Phone: [facility] 04-29-2023 14:01-0500 Systolic blood pressure 113 mm[Hg] Anai Pierre MD Work Phone: [facility] 04-22-2023 13:59-0500 Body height 154.94 cm DO Megase Colesnger Work Phone: [facility] 04-22-2023 13:58-0500 Body mass index (BMI) [Ratio] 28.5 kg/m2 DO Mega Tasha Work Phone: [facility] 04-22-2023 13:58-0500 Body weight 68.49 kg DO Mega Tasha Work Phone: [facility] 04-22-2023 13:58-0500 Diastolic blood pressure 59 mm[Hg] DO Mega Tasha Work Phone: [facility] 04-22-2023 13:58-0500 Systolic blood pressure 98 mm[Hg] DO Mega Cordova Work Phone: [facility] 03-25-2023 11:04-0400 Body height 157.5 cm Anai Pierre MD Work Phone: [facility] 03-25-2023 11:04-0400 Body mass index (BMI) [Ratio] 28.35 kg/m2 Anai Pierre MD Work Phone: [facility] 03-25-2023 11:04-0400 Body weight 70.31 kg Anai Pierre MD Work Phone: [facility] 03-25-2023 11:04-0400 Diastolic blood pressure 60 mm[Hg] Anai Pierre MD Work Phone: [facility] 03-25-2023 11:04-0400 Heart rate 78 /min Anai Pierre MD Work Phone: [facility] 03-25-2023 11:04-0400 Systolic blood pressure 91 mm[Hg] Anai Pierre MD Work Phone: [facility] 02-25-2023 14:06-0400 Body height 157.5 cm Anai Pierre MD Work Phone: [facility] 02-25-2023 14:06-0400 Body mass index (BMI) [Ratio] 28.97 kg/m2 Anai Pierre MD Work Phone: [facility] 02-25-2023 14:06-0400 Body weight 71.85 kg Anai Pierre MD Work Phone: [facility] 02-25-2023 14:06-0400 Diastolic blood pressure 64 mm[Hg] Anai Pierre MD Work Phone: [facility] 02-25-2023 14:06-0400 Heart rate 76 /min Anai Pierre MD Work Phone: [facility] 02-25-2023 14:06-0400 Systolic blood pressure 96 mm[Hg] Anai Pierre MD Work Phone: [facility] 01-23-2023 12:29-0400 Body temperature 98.6 [degF] DO Mega Tasha Work Phone: [facility] 01-23-2023 12:29-0400 Diastolic blood pressure 70 mm[Hg] DO Mega Tasha Work Phone: [facility] 01-23-2023 12:29-0400 Heart rate 83 /min DO Mega Tasha Work Phone: [facility] 01-23-2023 12:29-0400 Respiratory rate 14 /min DO Mega Tasha Work Phone: [facility] 01-23-2023 12:29-0400 SaO2% (BldA) [Mass fraction] 92 % DO Mega Tasha Work Phone: [facility] 01-23-2023 12:29-0400 Systolic blood pressure 105 mm[Hg] DO Mega Tasha Work Phone: [facility] 01-19-2023 15:20-0400 Body height 157.5 cm Anai Pierre MD Work Phone: [facility] 01-19-2023 15:20-0400 Body mass index (BMI) [Ratio] 30.25 kg/m2 Anai Pierre MD Work Phone: [facility] 01-19-2023 15:20-0400 Body weight 75.03 kg Anai Pierre MD Work Phone: [facility] 01-19-2023 15:20-0400 Diastolic blood pressure 67 mm[Hg] Anai Pierre MD Work Phone: [facility] 01-19-2023 15:20-0400 Heart rate 67 /min Anai Pierre MD Work Phone: [facility] 01-19-2023 15:20-0400 Systolic blood pressure 99 mm[Hg] Anai Pierre MD Work Phone: [facility] 01-12-2023 09:32-0400 Body height 154.[address] Krista Parker Work Phone: [facility] 01-12-2023 09:32-0400 Body mass index (BMI) [Ratio] 31.4 kg/m2 Dr. Krista Parker Work Phone: [facility] 01-12-2023 09:32-0400 Body temperature 97 [degF] Dr. Krista Parker Work Phone: [facility] 01-12-2023 09:32-0400 Body weight 75.[address] Krista Parker Work Phone: [facility] 01-12-2023 09:32-0400 Diastolic blood pressure 75 mm[Hg] Dr. Krista Parker Work Phone: [facility] 01-12-2023 09:32-0400 Heart rate 96 /min Dr. Krista Parker Work Phone: [facility] 01-12-2023 09:32-0400 Respiratory rate 14 /min Dr. Krista Parker Work Phone: [facility] 01-12-2023 09:32-0400 SaO2% (BldA) [Mass fraction] 100 % Dr. Krista Parker Work Phone: [facility] 01-12-2023 09:32-0400 Systolic blood pressure 119 mm[Hg] Dr. Krista Parker Work Phone: [facility] 12-20-2022 10:27-0400 Body mass index (BMI) [Ratio] 31.2 kg/m2 Dr. Krista Parker Work Phone: [facility] 12-20-2022 10:27-0400 Body weight 76.[address] Krista Parker Work Phone: [facility] 12-15-2022 14:50-0400 Body height 157.5 cm Anai Pierre MD Work Phone: [facility] 12-15-2022 14:50-0400 Body mass index (BMI) [Ratio] 30.91 kg/m2 Anai Pierre MD Work Phone: [facility] 12-15-2022 14:50-0400 Body weight 76.66 kg Anai Pierre MD Work Phone: [facility] 12-15-2022 14:50-0400 Diastolic blood pressure 69 mm[Hg] Anai Pierre MD Work Phone: [facility] 12-15-2022 14:50-0400 Heart rate 74 /min Anai Pierre MD Work Phone: [facility] 12-15-2022 14:50-0400 Systolic blood pressure 103 mm[Hg] Anai Pierre MD Work Phone: [facility] 12-01-2022 11:21-0400 Body height 156.2 cm Colin Bella MD Work Phone: [facility] 12-01-2022 11:21-0400 Body temperature 96.69 [degF] Colin Bella MD Work Phone: [facility] 12-01-2022 11:21-0400 Body weight 78.02 kg Colin Bella MD Work Phone: [facility] 12-01-2022 11:21-0400 Diastolic blood pressure 46 mm[Hg] Colin Bella MD Work Phone: [facility] 12-01-2022 11:21-0400 Heart rate 85 /min Colin Bella MD Work Phone: [facility] 12-01-2022 11:21-0400 Systolic blood pressure 103 mm[Hg] Colin Bella MD Work Phone: [facility] 11-12-2022 09:42-0400 Body height 157.5 cm Anai Pierre MD Work Phone: [facility] 11-12-2022 09:42-0400 Body mass index (BMI) [Ratio] 31.28 kg/m2 Aani Pierre MD Work Phone: [facility] 11-12-2022 09:42-0400 Body weight 77.56 kg Anai Pierre MD Work Phone: [facility] 11-12-2022 09:42-0400 Diastolic blood pressure 72 mm[Hg] Anai Pierre MD Work Phone: [facility] 11-12-2022 09:42-0400 Heart rate 81 /min Anai Pierre MD Work Phone: [facility] 11-12-2022 09:42-0400 Systolic blood pressure 109 mm[Hg] Anai Pierre MD Work Phone: [facility] 09-21-2022 09:52-0400 Body height 154.[address] Krista Parker Work Phone: [facility] 09-21-2022 09:51-0400 Body mass index (BMI) [Ratio] 31 kg/m2 Dr. Krista Parker Work Phone: [facility] 09-21-2022 09:51-0400 Body weight 74.[address] Krista Parker Work Phone: [facility] 09-21-2022 09:51-0400 Diastolic blood pressure 78 mm[Hg] Dr. Krista Parker Work Phone: [facility] 09-21-2022 09:51-0400 Systolic blood pressure 121 mm[Hg] Dr. Krista Parker Work Phone: [facility] 09-07-2022 15:42-0400 Body temperature 98.4 [degF] Dr. Krista Parker Work Phone: [facility] 09-07-2022 15:42-0400 Diastolic blood pressure 75 mm[Hg] Dr. Krista Parker Work Phone: [facility] 09-07-2022 15:42-0400 Heart rate 83 /min Dr. Krista Parker Work Phone: [facility] 09-07-2022 15:42-0400 Respiratory rate 16 /min Dr. Krista Parker Work Phone: [facility] 09-07-2022 15:42-0400 SaO2% (BldA) [Mass fraction] 100 % Dr. Krista Parker Work Phone: [facility] 09-07-2022 15:42-0400 Systolic blood pressure 106 mm[Hg] Dr. Krista Parker Work Phone: [facility] 09-07-2022 12:13-0400 Body mass index (BMI) [Ratio] 31.3 kg/m2 Dr. Krista Parker Work Phone: [facility] 09-07-2022 12:13-0400 Body weight 75.[address] Krista Parker Work Phone: [facility] 08-17-2022 18:13-0400 Body temperature 99.3 [degF] Dari White ROOF TRUSS DETAILER.HAND CLERICAL VERIFIER Work Phone: [facility] 08-17-2022 18:13-0400 Body weight 76.57 kg Dari White ROOF [employer]USS DETAILER.HAND CLERICAL VERIFIER Work Phone: [facility] 08-17-2022 18:13-0400 Diastolic blood pressure 90 mm[Hg] Dari White ROOF TRUSS DETAILER.HAND CLERICAL VERIFIER Work Phone: [facility] 08-17-2022 18:13-0400 Heart rate 102 /min Dari White ROOF TRUSS DETAILER.HAND CLERICAL VERIFIER Work Phone: [facility] 08-17-2022 18:13-0400 Respiratory rate 16 /min Dari White ROOF TRUSS DETAILER.HAND CLERICAL VERIFIER Work Phone: [facility] 08-17-2022 18:13-0400 SaO2% (BldA) [Mass fraction] 99 % Dari White ROOF TRUSS DETAILER.HAND CLERICAL VERIFIER Work Phone: [facility] 08-17-2022 18:13-0400 Systolic blood pressure 136 mm[Hg] Dari White APRN.CNP Work Phone: [facility] 07-30-2022 15:56-0500 Body mass index (BMI) [Ratio] 29.9 kg/m2 Dr. Krista Parker Work Phone: [facility] 07-30-2022 15:56-0500 Body weight 74.[address] Krista Parker Work Phone: [facility] 07-30-2022 15:56-0500 Diastolic blood pressure 89 mm[Hg] Dr. Krista Parker Work Phone: [facility] 07-30-2022 15:56-0500 Systolic blood pressure 138 mm[Hg] Dr. Krista Parker Work Phone: [facility] 07-08-2022 09:52-0500 Body height 157.[address] Deon Alfaro Work Phone: [facility] 07-08-2022 09:50-0500 Body mass index (BMI) [Ratio] 30.5 kg/m2 Dr. Deon Alfaro Work Phone: [facility] 07-08-2022 09:50-0500 Body weight 75.[address] Deon Alfaro Work Phone: [facility] 07-08-2022 09:50-0500 Diastolic blood pressure 76 mm[Hg] Dr. Deon Alfaro Work Phone: [facility] 07-08-2022 09:50-0500 Systolic blood pressure 121 mm[Hg] Dr. Deon Alfaro Work Phone: [facility] 06-25-2022 10:37-0500 Body height 157.[address] Deon Alfaro Work Phone: [facility] 06-25-2022 10:37-0500 Body mass index (BMI) [Ratio] 30.6 kg/m2 Dr. Deon Alfaro Work Phone: [facility] 06-25-2022 10:37-0500 Body weight 75.[address] Deon Alfaro Work Phone: [facility] 06-25-2022 10:37-0500 Diastolic blood pressure 84 mm[Hg] Dr. Deon Alfaro Work Phone: [facility] 06-25-2022 10:37-0500 Systolic blood pressure 119 mm[Hg] Dr. Deon Alfaro Work Phone: [facility] 06-23-2022 10:58-0500 Body temperature 97.3 [degF] Dr. Deon Alfaro Work Phone: [facility] 06-23-2022 10:58-0500 Body weight 76.[address] Deon Alfaro Work Phone: [facility] 06-23-2022 10:58-0500 Diastolic blood pressure 88 mm[Hg] Dr. Deon Alfaro Work Phone: [facility] 06-23-2022 10:58-0500 Heart rate 97 /min Dr. Deon Alfaro Work Phone: [facility] 06-23-2022 10:58-0500 Respiratory rate 16 /min Dr. Deon Alfaro Work Phone: [facility] 06-23-2022 10:58-0500 SaO2% (BldA) [Mass fraction] 98 % Dr. Deon Alfaro Work Phone: [facility] 06-23-2022 10:58-0500 Systolic blood pressure 131 mm[Hg] Dr. Deon Alfaro Work Phone: [facility] 05-28-2022 11:20-0500 Body height 157.[address] Deon Alfaro Work Phone: [facility] 05-28-2022 11:20-0500 Body mass index (BMI) [Ratio] 31.8 kg/m2 Dr. Deon Alfaro Work Phone: [facility] 05-28-2022 11:20-0500 Body weight 78.[address] Deon Alfaro Work Phone: [facility] 05-28-2022 11:20-0500 Diastolic blood pressure 74 mm[Hg] Dr. Deon Alfaro Work Phone: [facility] 05-28-2022 11:20-0500 Systolic blood pressure 118 mm[Hg] Dr. Deon Alfaro Work Phone: [facility] 04-14-2022 14:19-0500 Body height 157.[address] Deon Alfaro Work Phone: [facility] Work Phone: 04-14-2022 14:19-0500 Body mass index (BMI) [Ratio] 33.5 kg/m2 Dr. Deon Alfaro Work Phone: [facility] 04-14-2022 14:19-0500 Body weight 83.[address] Deon Alfaro Work Phone: [facility] 04-14-2022 14:19-0500 Diastolic blood pressure 73 mm[Hg] Dr. Deon Alfaro Work Phone: [facility] 04-14-2022 14:19-0500 Systolic blood pressure 116 mm[Hg] Dr. Deon Alfaro Work Phone: [facility] 03-10-2022 08:23-0400 Body mass index (BMI) [Ratio] 33.3 kg/m2 Dr. Deon Alfaro Work Phone: [facility] 03-10-2022 08:23-0400 Body temperature 98.2 [degF] Dr. Deon Alfaro Work Phone: [facility] 03-10-2022 08:23-0400 Body weight 82.[address] Deon Alfaro Work Phone: [facility] 03-10-2022 08:23-0400 Diastolic blood pressure 80 mm[Hg] Dr. Deon Alfaro Work Phone: [facility] 03-10-2022 08:23-0400 Heart rate 78 /min Dr. Deon Alfaro Work Phone: [facility] 03-10-2022 08:23-0400 Respiratory rate 16 /min Dr. Deon Alfaro Work Phone: [facility] 03-10-2022 08:23-0400 SaO2% (BldA) [Mass fraction] 99 % Dr. Deon Alfaro Work Phone: [facility] 03-10-2022 08:23-0400 Systolic blood pressure 110 mm[Hg] Dr. Deon Alfaro Work Phone: [facility] 01-11-2022 18:23-0400 Body temperature 98.8 [degF] Dari White ROOF [employer]USS DETAILER.HAND CLERICAL VERIFIER Work Phone: [facility] 01-11-2022 18:23-0400 Body weight 82.1 kg Dari White ROOF [employer]USS DETAILER.HAND CLERICAL VERIFIER Work Phone: [facility] 01-11-2022 18:23-0400 Diastolic blood pressure 84 mm[Hg] Dari White ROOF [employer]USS DETAILER.HAND CLERICAL VERIFIER Work Phone: [facility] 01-11-2022 18:23-0400 Heart rate 102 /min Dari White ROOF [employer]USS DETAILER.HAND CLERICAL VERIFIER Work Phone: [facility] 01-11-2022 18:23-0400 Respiratory rate 16 /min Dari White ROOF [employer]USS DETAILER.HAND CLERICAL VERIFIER Work Phone: [facility] 01-11-2022 18:23-0400 SaO2% (BldA) [Mass fraction] 99 % Dari White ROOF [employer]USS DETAILER.HAND CLERICAL VERIFIER Work Phone: [facility] 01-11-2022 18:23-0400 Systolic blood pressure 142 mm[Hg] Dari White ROOF [employer]USS DETAILER.HAND CLERICAL VERIFIER Work Phone: [facility] 11-15-2021 21:00-0400 Respiratory rate 16 /min Dr. Deon Alfaro Work Phone: [facility] Work Phone: 11-15-2021 21:00-0400 SaO2% (BldA) [Mass fraction] 98 % Dr. Deon Alfaro Work Phone: [facility] Work Phone: 11-15-2021 18:42-0400 Diastolic blood pressure 68 mm[Hg] Dr. Deon Alfaro Work Phone: [facility] Work Phone: 11-15-2021 18:42-0400 Heart rate 83 /min Dr. Deon Alfaro Work Phone: [facility] Work Phone: 11-15-2021 18:42-0400 Systolic blood pressure 120 mm[Hg] Dr. Deon Alfaro Work Phone: [facility] Work Phone: 11-15-2021 17:33-0400 Body height 157.[address] Deon Alfaro Work Phone: [facility] Work Phone: 11-15-2021 17:33-0400 Body mass index (BMI) [Ratio] 32.5 kg/m2 Dr. Deon Alfaro Work Phone: [facility] Work Phone: 11-15-2021 17:33-0400 Body temperature 98.2 [degF] Dr. Deon Alfaro Work Phone: [facility] Work Phone: 11-15-2021 17:33-0400 Body weight 80.[address] Deon Alfaro Work Phone: [facility] Work Phone: 11-10-2021 10:22-0400 Body height 154.[address] Deon Alfaro Work Phone: [facility] Work Phone: 11-10-2021 10:22-0400 Body temperature 98.8 [degF] Dr. Deon Alfaro Work Phone: [facility] Work Phone: 11-10-2021 10:22-0400 Diastolic blood pressure 90 mm[Hg] Dr. Deon Alfaro Work Phone: [facility] Work Phone: 11-10-2021 10:22-0400 Heart rate 76 /min Dr. Deon Alfaro Work Phone: [facility] Work Phone: 11-10-2021 10:22-0400 Respiratory rate 16 /min Dr. Deon Alfaro Work Phone: [facility] Work Phone: 11-10-2021 10:22-0400 SaO2% (BldA) [Mass fraction] 99 % Dr. Deon Alfaro Work Phone: [facility] Work Phone: 11-10-2021 10:22-0400 Systolic blood pressure 144 mm[Hg] Dr. Deon Alfaro Work Phone: [facility] Work Phone: 11-05-2021 13:31-0400 Body mass index (BMI) [Ratio] 35.2 kg/m2 Dr. Deon Alfaro Work Phone: [facility] Work Phone: 11-05-2021 13:31-0400 Diastolic blood pressure 70 mm[Hg] Dr. Deon Alfaro Work Phone: [facility] Work Phone: 11-05-2021 13:31-0400 Systolic blood pressure 118 mm[Hg] Dr. Deon Alfaro Work Phone: [facility] Work Phone: 11-05-2021 11:07-0400 Body weight 84.[address] Deon Alfaro Work Phone: [facility] Work Phone: 10-08-2021 11:06-0400 Body mass index (BMI) [Ratio] 36.5 kg/m2 Dr. Deon Alfaro Work Phone: [facility] Work Phone: 10-08-2021 11:06-0400 Body weight 87.[address] Deon Alfaro Work Phone: [facility] Work Phone: 10-08-2021 11:06-0400 Diastolic blood pressure 78 mm[Hg] Dr. Deon Alfaro Work Phone: [facility] Work Phone: 10-08-2021 11:06-0400 Systolic blood pressure 114 mm[Hg] Dr. Deon Alfaro Work Phone: [facility] Work Phone: 09-10-2021 08:43-0400 Body mass index (BMI) [Ratio] 38.3 kg/m2 Dr. Doen Alfaro Work Phone: [facility] Work Phone: 09-10-2021 08:43-0400 Body weight 92.[address] Deon Alfaro Work Phone: [facility] Work Phone: 09-10-2021 08:43-0400 Diastolic blood pressure 80 mm[Hg] Dr. Deon Alfaro Work Phone: [facility] Work Phone: 09-10-2021 08:43-0400 Systolic blood pressure 124 mm[Hg] Dr. Deon Alfaro Work Phone: [facility] Work Phone: 07-16-2021 10:13-0500 Body mass index (BMI) [Ratio] 37 kg/m2 Dr. Deon Alfaro Work Phone: [facility] Work Phone: 07-16-2021 10:13-0500 Body weight 88.[address] Deon Alfaro Work Phone: [facility] Work Phone: 07-16-2021 10:13-0500 Diastolic blood pressure 78 mm[Hg] Dr. Deon Alfaro Work Phone: [facility] Work Phone: 07-16-2021 10:13-0500 Systolic blood pressure 118 mm[Hg] Dr. Deon Alfaro Work Phone: [facility] Work Phone: Encounters Encounter Date Encounter Type Care Provider Facility Start: 01-03-2025 ambulatory STEPH CAMACHO MD Fac ility:[facility] Start: 12-19-2024 End: 12-19-2024 ambulatory DEON ALFARO [facility] Start: 12-19-2024 End: 12-19-2024 Office outpatient visit 25 minutes Anai Pierre MD Work Phone: [facility] [place] Comment on above: Insulin resistance ( Primary Dx); BMI 31.0-31.9,adult; Class 1 obesity due to excess calories with serious comorbidity and body mass index (BMI) of 31.0 to 31.9 in adult Start: 12-13-2024 End: 12-13-2024 ambulatory STEPH CAMACHO MD Facility:[facility] Start: 12-13-2024 End: 12-13-2024 Minor Procedure VALENTINA SANTILLAN MD [facility] Start: 12-03-2024 End: 12-03-2024 Patient encounter procedure Afsaneh Snow NP-C -[facility] Work Phone: Start: 12-03-2024 End: 12-03-2024 ambulatory No Primary Care Physician -[facility] Start: 12-03-2024 End: 12-03-2024 ambulatory Afsaneh Snow Facility:[facility] Start: 11-26-2024 ambulatory Afsaneh Snow [place] Start: 11-13-2024 End: 11-13-2024 E-mail encounter from caregiver Sola Silver PA-C Work Phone: Rheumatology Start: 11-13-2024 End: 11-13-2024 Patient encounter procedure Sola Silver PA-C Work Phone: Rheumatology Comment on above: Appointment Request Start: 11-07-2024 End: 11-07-[address] [facility] Start: 11-07-2024 End: 11-07-2024 Office outpatient visit 25 minutes Anai Pierre MD Work Phone: [facility] [place] Comment on above: Insulin resistance ( Primary Dx); BMI 31.0-31.9,adult; Class 1 obesity due to excess calories with serious comorbidity and body mass index (BMI) of 31.0 to 31.9 in adult Start: 10-09-2024 End: 10-09-2024 Patient encounter procedure Alisson LEON -[facility] Work Phone: Start: 10-09-2024 End: 10-09-2024 ambulatory No Primary Care Physician [facility] Work Phone: Start: 10-08-2024 Encounter for gynecological examination (general) (routine) without abnormal findings Es Cline [facility] Start: 10-06-2024 End: 10-06-2024 ambulatory No Primary Care Physician [facility] Work Phone: Start: 10-06-2024 End: 10-06-2024 Patient encounter procedure Alisson LEON -[facility] Work Phone: Start: 10-06-2024 End: 10-06-2024 ambulatory Tia Kumar NP Facility:[facility] Start: 09-25-2024 End: 09-25-[address] Es Cline DO -[facility] Work Phone: Start: 09-25-2024 End: 09-25-[address] Es Cline [facility] Start: 09-25-2024 End: 09-25-2024 ambulatory Steph Camacho Facility:[facility] Start: 09-19-2024 End: 09-19-[address] Steph Camacho MD -[facility] Start: 09-19-2024 End: 09-19-2024 ambulatory Steph Mendeslay Facility:[facility] Start: 09-17-2024 End: 09-17-[address] Steph Camacho MD -[facility] Work Phone: Start: 09-17-2024 End: 09-17-2024 ambulatory No Primary Care Physician Facility:[facility] Start: 09-03-2024 End: 09-03-[address] Que Viregn MD -[facility] Start: 09-03-2024 End: 09-03-2024 ambulatory Que Virgen Facility:[facility] Start: 09-03-2024 End: 09-03-2024 Patient encounter procedure Alisson LEON -[facility] Work Phone: Start: 09-03-2024 End: 09-03-2024 ambulatory Alisson Kumar Facility:[facility] Start: 08-24-2024 End: 08-24-2024 ambulatory Vidhya Anderson [employer] Work Phone: [facility] Work Phone: Start: 08-24-2024 End: 08-24-2024 Patient encounter procedure Altaf LEON -[facility], [place] Work Phone: Start: 08-24-2024 End: 08-24-2024 ambulatory Altaf LEON Facility:[facility] Start: 08-22-2024 End: 08-22-2024 Patient encounter procedure Altaf LEON -[facility] Work Phone: Start: 08-22-2024 End: 08-22-2024 ambulatory No Primary Care Physician Facility[place] Start: 08-01-2024 End: 08-01-2024 Emergency department patient visit RENEA LEIDA CANO Facility:[facility] Start: 07-28-2024 End: 07-28-2024 Patient encounter procedure Daniel Tapia PA -[facility] Work Phone: Start: 07-28-2024 End: 07-28-2024 ambulatory No Primary Care Physician Facility[place] Start: 07-24-2024 End: 08-01-2024 Telephone encounter Aden Davila MD Work Phone: [facility] [place] Comment on above: Referral; Appointmen t Request Start: 07-13-2024 End: 07-13-2024 Office outpatient visit 25 minutes Anai Pierre MD Work Phone: [facility] [place] Comment on above: Insulin resistance ( Primary Dx); BMI 30.0-30.9,adult; Class 1 obesity due to excess calories with serious comorbidity and body mass index (BMI) of 30.0 to 30.9 in adult Start: 07-13-2024 End: 07-13-[address] [facility] Start: 07-10-2024 End: 07-10-2024 Telephone encounter No Pcp (Hist) [facility] Comment on above: Patient Question Start: 07-10-2024 End: 07-10-2024 Patient encounter procedure Vandana Mireles APRN.HAND CLERICAL VERIFIER Work Phone: [facility] Comment on above: Generalized weakness (Primary Dx) Start: 07-10-2024 End: 07-10-2024 Emergency department patient visit Dr. Gonzalo Blanco MD -Emergency Department Work Phone: Start: 07-10-2024 End: 07-10-2024 ambulatory SELF Facility:[facility] Start: 07-08-2024 End: 07-08-2024 ambulatory DARI WHITE Facility:[facility] Start: 07-08-2024 End: 07-08-2024 Patient encounter procedure Shital Cummins APRN.HAND CLERICAL VERIFIER Work Phone: [facility] Comment on above: Lower resp. tract in fection (Primary Dx) Start: 06-26-2024 ambulatory Bo Simms Facility :[facility] Start: 06-15-2024 End: 06-15-2024 Office outpatient visit 25 minutes Anai Pierre MD Work Phone: [facility] Comment on above: Insulin resistance ( Primary Dx); BMI 30.0-30.9,adult; Class 1 obesity due to excess calories with serious comorbidity and body mass index (BMI) of 30.0 to 30.9 in adult Start: 06-15-2024 End: 06-15-2024 ambulatory ANAI PIERRE [facility] Start: 06-12-2024 End: 06-12-2024 Refill Lory Del Rosario DO Work Phone: Dermatology [facility] Comment on above: Refill Request Start: 06-06-2024 End: 06-06-2024 Patient encounter procedure Santino Aguilera MD Work Phone: Gastroenterology Comment on above: Constipation, unspec ified constipation type (Primary Dx) Start: 06-06-2024 End: 06-06-2024 ambulatory SANTINO AGUILERA Facility:[facility] Start: 06-06-2024 ambulatory AGA RDZ Facility:[facility] Start: 05-25-2024 End: 05-25-2024 Patient encounter procedure Maira LEON -[facility] Work Phone: Start: 05-25-2024 End: 05-25-2024 ambulatory Renea Bassett Facility:[facility] Start: 05-11-2024 End: 05-11-2024 Patient encounter procedure Vidhya BHAT -Nuclear Medicine, [facility] Work Phone: Start: 05-11-2024 End: 05-11-2024 ambulatory Vidhyaher Anderson Facility:[facility] Start: 05-04-2024 End: 05-04-2024 [facility] Start: 04-02-2024 End: 04-02-2024 ambulatory Renea Bassett [place] Start: 03-30-2024 End: 03-30-2024 Subsequent hospital visit by physician [facility] Work Phone: Radiology Comment on above: Acute cough [R05.1] Start: 03-30-2024 End: 03-30-2024 ambulatory RENEASHARRON BASSETT Facility:[facility] Start: 03-30-2024 End: 03-30-2024 Patient encounter procedure Dari White APRN.HAND CLERICAL VERIFIER Work Phone: [facility] Comment on above: Acute cough (Primary Dx); Exacerbation of asthma, unspecified asthma severity, unspecified whether persistent; Rhinosinusitis Start: 03-29-2024 End: 03-30-2024 Telephone encounter Anai Pierre MD Work Phone: [facility] [place] Comment on above: Other (PATIENT QUEST IONS) Start: 03-28-2024 End: 03-28-2024 ambulatory Reneasharron Bassett Facility:[facility] Start: 03-27-2024 End: 03-27-2024 ambulatory Vidhya Anderson Facility:[facility] Start: 03-16-2024 End: 03-16-2024 Emergency department patient visit Renea Bassett Facility:[facility] Start: 03-14-2024 End: 03-14-2024 ambulatory Vidhya Anderson Facility:[facility] Start: 03-09-2024 End: 03-09-2024 ambulatory Vidhya Anderson Facility:[facility] Start: 03-09-2024 End: 03-09-2024 ambulatory Vidhya Anderson Facility:[facility] Start: 01-31-2024 End: 02-01-2024 ambulatory James Alvarado Facility:[facility] Start: 01-31-2024 End: 01-31-2024 ambulatory Renea Steinero Facility:[facility] Start: 01-13-2024 End: 01-13-2024 ambulatory Reneasharron Gottiullo Facility:[facility] Start: 01-13-2024 End: 01-13-2024 ambulatory Reneasharron Gottiullo Facility:[facility] Start: 01-10-2024 End: 01-11-2024 Refill Anai Pierre MD Work Phone: [facility] [place] Comment on above: Insulin resistance Start: 12-09-2023 End: 12-09-2023 Office outpatient visit 15 minutes Anai Pierre MD Work Phone: [facility] [place] Comment on above: Insulin resistance ( Primary Dx); BMI 26.0-26.9,adult; Overweight (BMI 25.0-29.9) Start: 11-30-2023 End: 11-30-2023 Telephone encounter Anai Pierre MD Work Phone: [facility] [place] Comment on above: Results (CT Scan) Start: 11-29-2023 End: 11-30-2023 Refill Anai Pierre MD Work Phone: [facility] [place] Comment on above: Insulin resistance Start: 11-23-2023 End: 11-23-2023 Telephone encounter Anai Pierre MD Work Phone: [facility] [place] Start: 11-11-2023 Patient encounter status Vidhya Anderson [employer] Work Phone: [facility] Start: 11-02-2023 End: 11-02-2023 Office outpatient visit 15 minutes Anai Pierre MD Work Phone: [facility] [place] Comment on above: Overweight (BMI 25.0 -29.9) (Primary Dx); Insulin resistance; BMI 26.0-26.9,adult Start: 08-09-2023 End: 08-09-2023 ambulatory ARCADIO NGUYỄN [facility] Start: 08-09-2023 End: 08-09-2023 Office outpatient new 45 minutes Arcadio Nguyễn MD Work Phone: [facility] Comment on above: Chronic maxillary si nusitis (Primary Dx); Chronic migraine without aura without status migrainosus, not intractable; Non-seasonal allergic rhinitis, unspecified trigger Start: 07-29-2023 End: 07-29-2023 Office outpatient visit 15 minutes Anai Pierre MD Work Phone: [facility] [place] Comment on above: Insulin resistance ( Primary Dx); BMI 25.0-25.9,adult; Overweight (BMI 25.0-29.9) Start: 07-22-2023 Telephone encounter Lory lan DO Work Phone: Issue Comment on above: Prescription Refills Start: 07-22-2023 End: 07-22-2023 ambulatory LORYPARTHA MARTEGIO Facility:[facility] Start: 07-22-2023 End: 07-22-2023 Patient encounter procedure Lory Del Rosario DO Work Phone: Issue Comment on above: Acne vulgaris (Prima ry Dx); Post-inflammatory hyperpigmentation; Generalized hyperhidrosis Start: 06-16-2023 End: 06-16-2023 ambulatory DO Mega Cordova Work Phone: [facility] Work Phone: Start: 06-16-2023 End: 06-16-2023 Patient encounter procedure DO Mega Cordova Work Phone: [facility] Start: 06-03-2023 End: 06-03-2023 Office outpatient visit 15 minutes Anai Pierre MD Work Phone: [facility] [place] Comment on above: Insulin resistance ( Primary Dx); BMI 25.0-25.9,adult; Overweight (BMI 25.0-29.9) Start: 06-01-2023 End: 06-01-2023 ambulatory DO Mega Cordova Work Phone: [facility] Work Phone: Start: 06-01-2023 End: 06-01-2023 Patient encounter procedure DO Mega Cordova [facility] Work [facility] Start: 06-01-2023 End: 06-01-2023 Patient encounter procedure DO Mega Cordova Work Phone: [facility] Work Phone: Start: 05-24-2023 End: 05-24-2023 ambulatory DO Mega Cordova Work Phone: [facility] Work Phone: Start: 05-24-2023 End: 05-24-2023 Patient encounter procedure DO Mega Cordova [facility] Work [facility] Start: 05-24-2023 End: 05-24-2023 Patient encounter procedure DO Mega Cordova Work Phone: [facility] Work Phone: Start: 05-10-2023 End: 05-10-2023 Patient encounter procedure DO Mega Cordova Work Phone: [facility] Work Phone: Start: 04-29-2023 End: 04-29-2023 Office outpatient visit 15 minutes Anai Pierre MD Work Phone: [facility] [place] Comment on above: Insulin resistance ( Primary Dx); BMI 27.0-27.9,adult; Overweight (BMI 25.0-29.9) Start: 04-22-2023 End: 04-22-2023 ambulatory DO Mega Cordova Work Phone: [facility] Work Phone: Start: 04-22-2023 End: 04-22-2023 Patient encounter procedure DO Mega Cordova [facility] Work [facility] Start: 04-22-2023 End: 04-22-2023 Patient encounter procedure DO Mega Cordova Work Phone: [facility] Work Phone: Start: 04-21-2023 End: 04-21-2023 ambulatory DO Mega Cordova Work Phone: [facility] Work Phone: Start: 04-21-2023 End: 04-21-2023 Patient encounter procedure DO Mega Cordova [facility] [place] Work Phone: Start: 03-25-2023 End: 03-25-2023 Office outpatient visit 15 minutes Anai Pierre MD Work Phone: [facility] Comment on above: Insulin resistance ( Primary Dx); BMI 28.0-28.9,adult; Overweight (BMI 25.0-29.9) Start: 02-25-2023 End: 02-25-2023 Office outpatient visit 15 minutes Anai Pierre MD Work Phone: [facility] [place] Comment on above: Insulin resistance ( Primary Dx); BMI 28.0-28.9,adult; Overweight (BMI 25.0-29.9) Start: 02-10-2023 Refill Anai Pierre MD Work Phone: [facility] [place] Comment on above: Insulin resistance Start: 01-23-2023 End: 01-23-2023 Patient encounter procedure DO Mega Cordova Work Phone: [facility] Work Phone: Start: 01-19-2023 End: 01-19-2023 Office outpatient visit 15 minutes Anai Pierre MD Work Phone: [facility] [place] Comment on above: Insulin resistance ( Primary Dx); BMI 30.0-30.9,adult; Class 1 obesity without serious comorbidity with body mass index (BMI) of 30.0 to 30.9 in adult, unspecified obesity type Start: 01-14-2023 End: 01-14-2023 Patient encounter procedure DO Mega Cordova Work Phone: [facility] Work Phone: Start: 01-12-2023 End: 01-12-2023 Emergency department patient visit Dr. Krista Parker Work Phone: [facility] Work Phone: Start: 01-12-2023 End: 01-12-2023 Patient encounter procedure Shelia Tapia PA-C Work Phone: [facility] Comment on above: Abdominal pain, unsp ecified abdominal location (Primary Dx) Start: 01-08-2023 End: 01-08-[address] Krista Parker Work Phone: [facility] Work Phone: Start: 01-08-2023 End: 01-08-[address] Krista Parker Work Phone: [facility] Work Phone: Start: 01-05-2023 Refill Anai Pierre MD Work Phone: [facility] [place] Start: 12-20-2022 End: 12-20-[address] Krista Parker Work Phone: [facility] Work Phone: Start: 12-15-2022 End: 12-15-2022 Office outpatient visit 15 minutes Anai Pierre MD Work Phone: [facility] [place] Comment on above: Insulin resistance ( Primary Dx); BMI 30.0-30.9,adult; Class 1 obesity without serious comorbidity with body mass index (BMI) of 30.0 to 30.9 in adult, unspecified obesity type Start: 12-07-2022 End: 12-07-[address] Es Cline Work Phone: [facility] Work Phone: Start: 12-07-2022 End: 12-07-[address] Es Cline Work Phone: [facility] Work Phone: Start: 12-01-2022 Chart abstracting Colin german MD Work Phone: Plastic Surgery Comment on above: PHOTOS TAKEN Start: 12-01-2022 End: 12-01-2022 Patient encounter procedure Colin Bella MD Work Phone: Plastic Surgery Comment on above: Diastasis recti (Brenda polyl Dx); Localized adiposity Start: 11-12-2022 End: 11-12-[address] Krista Parker Work Phone: [facility] Work Phone: Start: 11-12-2022 End: 11-12-[address] Krista Parker Work Phone: [facility] Start: 11-12-2022 End: 11-12-2022 Office outpatient visit 25 minutes Anai Pierre MD Work Phone: [facility] [place] Comment on above: BMI 31.0-31.9,adult (Primary Dx); Class 1 obesity with serious comorbidity and body mass index (BMI) of 31.0 to 31.9 in adult, unspecified obesity type; JAZZMINE (obstructive sleep apnea); Insulin resistance Start: 09-21-2022 End: 09-21-[address] Krista Parker Work Phone: [facility] Start: 09-07-2022 Non-patient / Non-visit Dr. Krista Parker Work Phone: [facility] Start: 09-07-2022 End: 09-07-2022 Admission to same day surgery center [facility] Parker [facility] Start: 08-17-2022 End: 08-17-2022 Patient encounter procedure Dari White RONDA Work Phone: [facility] Comment on above: Acute otitis media, bilateral (Primary Dx); Rhinosinusitis Start: 07-30-2022 End: 07-30-[address] Krista Parker Work Phone: [facility] Start: 07-08-2022 End: 07-08-[address] Deon Alfaro Work Phone: [facility] Work Phone: Start: 07-08-2022 End: 07-08-[address] Deon Alfaro Work Phone: [facility] Start: 07-08-2022 End: 07-08-[address] Deon Alfaro Work Phone: [facility] Start: 06-25-2022 End: 06-25-[address] Deon Alfaro Work Phone: [facility] Start: 06-23-2022 End: 06-23-[address] Deon Alfaro Work Phone: [facility] Work Phone: Start: 06-23-2022 End: 06-23-[address] Deon Alfaro Work Phone: [facility] Start: 06-23-2022 End: 06-23-[address] Deon Alfaro Work Phone: [facility] [place] Start: 05-28-2022 End: 05-28-[address] Deon Alfaro Work Phone: [facility] Work Phone: Start: 05-28-2022 End: 05-28-[address] De[facility] Alfaro [facility] Start: 05-28-2022 End: 05-28-[address] Deon Alfaro Work Phone: [facility] Start: 04-19-2022 End: 04-19-[address] Deon Alfaro Work Phone: [facility] Work Phone: Start: 04-19-2022 End: 04-19-[address] De[facility] Alfaro [facility] Start: 04-14-2022 End: 04-14-[address] De[facility] Alfaro Work Phone[facility] Start: 03-10-2022 End: 03-10-[address] Deon Alfaro Work Phone: [facility] Start: 01-11-2022 End: 01-11-2022 Patient encounter procedure Dari White APRN.CNP Work Phone: [facility] Comment on above: Acute otitis media, right (Primary Dx) Start: 11-15-2021 End: 11-15-2021 Emergency department patient visit Dr. Deon Alfaro Work Phone: [facility] Start: 11-10-2021 End: 11-10-[address] De[facility] Alfaro [facility] Start: 11-10-2021 End: 11-10-[address] Deon Alfaro Work Phone: [facility] Start: 11-05-2021 End: 11-05-[address] Deon Alfaro Work Phone: [facility] Start: 10-08-2021 End: 10-08-[address] Deon Alfaro Work Phone: [facility] Start: 09-10-2021 End: 09-10-[address] Deon Alfaro Work Phone: [facility] Start: 07-29-2021 End: 07-29-[address] Deon Alfaro Work Phone: [facility] Start: 07-16-2021 End: 07-16-[address] Deon Alfaro Work Phone: [facility] Start: 07-16-2021 End: 07-16-[address] Deon Alfaro Work Phone: [facility] Start: 04-30-2020 End: 04-30-2020 Subsequent hospital visit by physician Zac Poole Work Phone: [facility] MRI Comment on above: Arrived Procedures Date Procedure Procedure Detail Performing Clinician Start: 12-13-2024 PM Inj Spine L/S Wit [facility] Imaging SN 1 VALENTINA SANTILLAN MD Comment on above: auto-populated from documented surgical case Start: 12-03-2024 Gram stain microscopy N o Primary Care Physician Start: 12-03-2024 Source specific culture No Primary Care Physician Start: 10-06-2024 MRI of lumbar spine No Primary Care Physician Start: 09-19-2024 Vitamin D, 25-hydrox y measurement No Primary Care Physician Comment on above: Vitamin D StatusDefi ciency: <20 ng/mL (50nmol/L)Insufficiency: 20-30 ng/mL (50-75 nmol/L)Sufficiency: 30-100 ng/mL (75-250 nmol/L)Toxicity: >100 ng/mL (>250 nmol/L) Start: 09-03-2024 X-ray of lumbosacral spine No Primary Care Physician Start: 08-24-2024 X-ray of lumbar spin e, two or three views [employer] Work Phone: Start: 07-10-2024 Estimated creatinine clearance No Primary Care Physician Start: 07-10-2024 Measurement of renal function No Primary Care Physician Comment on above: GFR Calc Start: 07-10-2024 SARS-CoV-2, Influenz a & RSV (PCR) [employer] Work Phone: Start: 07-10-2024 X-ray of chest, PA a nd lateral views [employer] Work Phone: Start: 05-11-2024 Radionuclide gastric emptying study [employer] Work Phone: Start: 03-30-2024 Radiologic exam ches t 2 views Dari White APRN.CNP Work Phone: Start: 05-24-2023 Cytopathology proced ure, preparation of smear, genital source DO Mega Cordova Work Phone: Start: 05-24-2023 Investigation of transfusion reaction DO [employer] Cord[employer] Work Phone: Start: 04-22-2023 Cytopathology proced ure, preparation of smear, genital source DO [employer] Cord[employer] Work Phone: Start: 04-22-2023 Investigation of transfusion reaction DO [employer] Work Phone: Start: 01-12-2023 Computed tomography of abdomen and pelvis with intravenous contrast Dr. Krista Parker Work Phone: Start: 01-07-2023 MRI of joint of lowe r extremity Dr. Krista Parker Work Phone: Start: 12-20-2022 Radiologic examinati on of knee Dr. Krista Parker Work Phone: Start: 11-15-2021 Plain chest X-ray Dr. Taras Alfaro Work Phone: Start: 07-29-[address] Deon Alfaro Work Phone: Start: 07-29-2021 Bilateral mammography Nam Alfaro Work Phone: Start: 07-29-[address] Deon Alfaro Work Phone: Start: 06-19-2021 Lipid 1996 panel - S ana or Plasma Anai Pierre MD Work Phone: Start: 04-30-2020 Mri any jt lower ext rem w/contrast material Zac Poole Work Phone: Start: 04-30-2020 Arthrocentesis aspir &/inj major jt/bursa w/o us Zac Poole Work Phone: Adenoid excision VALENTINA SANTILLAN MD Appendectomy VALENTINA SANTILLAN MD Arthroscopy of hip VALENTINA CARTY MD Comment on above: right labral repair Arthroscopy of knee VALENTINA NORMAN MD Comment on above: bilateral torn Plica removed b ilaterally Bilateral salpingect radha with oophorectomy VALENTINA SANTILLAN MD Cytopathology proced ure, preparation of smear, genital source Dr. Deon Alfaro Work Phone: Deliveries by lito soria (finding) VALENTINA SANTILLAN MD Comment on above: x 2 H/O: surgery Status post bila teral salpingectomy Dr. Krista Parker Work Phone: H/O: tubal ligation Status post tubal ligation Dr. Krista Parker Work Phone: Investigation of transfusion reaction Dr. Deon Alfaro Work Phone: Ligation of fallopia n tube VALENTINA SANTILLAN MD Reduction mammaplasty VALENTINA SOTELO MD Tonsillectomy VALENTINA SANTILLAN MD Plan of Treatment Date Care Activity Detail Author Start: 2065 RSV Immunization for Adults (1 - 1-dose 75+ series) RSV Immunization for Adults (1 - 1-dose 75+ series) [facility] Start: 2050 RSV Immunization age d 60 or older (1 - 1-dose 60+ series) RSV Immunization aged 60 or older (1 - 1-dose 60+ series) [facility] Start: 2040 Zoster Vaccines (1 of 2) Zoste r Vaccines (1 of 2) [facility] Start: 11-15-2029 DTaP/Tdap/Td vaccine (8 - Td) DTaP/Tdap/Td vaccine (8 - Td) [place] Start: 11-15-2029 DTaP/Tdap/Td Vaccine s (9 - Td or Tdap) DTaP/Tdap/Td Vaccines (9 - Td or Tdap) [facility] Start: 11-15-2029 Tetanus vaccination Tetanus: Every 1 0yrs [facility] Start: 11-15-2029 Urine microalbumin profile DTaP,Tdap,Td Vaccine (9 - Td or Tdap) [facility] Start: 06-19-2026 Lipid panel Lipid Panel [facility] Start: 01-21-2025 Influenza vaccination Influenza Vacc ine (#1) [facility] Start: 01-18-2025 End: 01-18-2025 Patient encounter procedure 01/18/2025 8:00 AM EDT Office Visit Rheumatology [address] [address] Sola Silver, PALeanderC [address] [place] [address] Needing to see a rheumatory Arthritis, Doctor for pain in my hips Rheumatology Comment on above: Needing to see a rhe umatory Arthritis, Doctor for pain in my hips Start: 01-16-2025 End: 01-16-2025 Patient encounter procedure [facility] Start: 12-19-2024 End: 12-19-2024 Patient encounter procedure 12/19/2024 10:30 AM EDT [facility] [place] [address] Anai Pierre MD [address] [place], [place] [id number] [facility] Start: 09-03-2024 Patient referral [facility] Work Phone: Start: 08-22-2024 Patient referral [facility] Work Phone: Start: 08-10-2024 End: 08-10-2024 Patient encounter procedure 08/10/2024 10:50 AM EDT [facility] [place] [address] Anai Pierre MD [address] [place] [address] [facility] [place] Start: 07-13-2024 End: 07-13-2024 Patient encounter procedure 07/13/2024 2:30 PM EST Office [facility] [place] [address] [place] [address] Anai Pierre MD [address] [place] [address] [facility] [place] Start: 07-10-2024 [facility] Start: 05-23-2024 Medicare Advantage A nnual Wellness Visit Medicare Advantage Annual Wellness Visit [facility] Start: 04-06-2024 End: 04-06-2024 Patient encounter procedure 04/06/2024 3:20 PM EST Office Visit [facility] [place] [address] [place] [address] Anai Pierre MD [address] [place], [place] [id number] [facility] [place] Start: 02-03-2024 End: 02-03-2024 Patient encounter procedure 02/03/2024 1:10 PM EDT Office Visit [facility] [place] [address] [place] [address] Anai Pierre MD [address] [place], [place] [id number] [facility] [place] Start: 01-22-2024 Covid-19 Vaccine ( season) Covid-19 Vaccine ( season) [facility] Start: 01-22-2024 Influenza vaccination [facility] Start: 01-11-2024 End: 01-11-2024 Patient encounter procedure 01/11/2024 3:40 PM EDT Office Visit [facility] [place] [address] [place] [phone] Anai Pierre MD [address] [place] [address] [facility] Start: 12-09-2023 End: 12-09-2023 Patient encounter procedure 12/09/2023 8:20 AM EDT Office Visit [facility] [place] [address] [place] [address] Anai Pierre MD [address] [place] [address] [facility] Start: 09-12-2023 End: 09-12-2023 Patient encounter procedure 09/12/2023 1:00 PM EDT Office Visit [facility] [address] [place] [address] Arcadio Nguyễn MD [address] [place] [address] [facility] Start: 09-02-2023 End: 09-02-2023 Patient encounter procedure 09/02/2023 11:30 AM EDT Office Visit [facility] [place] [address] [place] [phone] Anai Pierre MD [address] [place], [place] [id number] [facility] [place] Start: 07-29-2023 End: 07-29-2023 Patient encounter procedure 07/29/2023 11:40 AM EST Office Visit [facility] [place] [address] [place] [phone] Anai Pierre MD [address] [place], [place] [id number] [facility] Start: 06-03-2023 End: 06-03-2023 Patient encounter procedure 06/03/2023 11:40 AM EST Office Visit [facility] [place] [address] [place] [phone] Anai Pierre MD [address] [place], [place] [id number] [facility] [place] Start: 06-01-2023 Liquid based cervica l cytology screening [facility] Start: 05-23-2023 Medicare Advantage A nnual Wellness Visit Medicare Advantage Annual Wellness Visit [facility] Start: 04-29-2023 End: 04-29-2023 Patient encounter procedure 04/29/2023 2:00 PM EST Office Visit [facility] [place] [address] [facility] [place] [phone] Anai Pierre MD [address] [place], [place] [id number] [facility] Start: 03-25-2023 End: 03-25-2023 Patient encounter procedure 03/25/2023 11:10 AM EDT Office Visit [facility] [place] [address] [facility] [place] [phone] Anai Pierre MD [address] [place], [place] [id number] [facility] Start: 02-25-2023 End: 02-25-2023 Patient encounter procedure 02/25/2023 2:10 PM EDT Office Visit [facility] [place] [address] [facility] [place] [phone] Anai Pierre MD [address] [place], [place] [id number] [facility] Start: 01-21-2023 COVID-19 Vaccine ( season) COVID-19 Vaccine ( season) [facility] Start: 01-21-2023 Influenza vaccination [facility] Start: 01-19-2023 End: 01-19-2023 Patient encounter procedure 01/19/2023 3:20 PM EDT Office Visit [facility] [place] [address] [facility] [place] [phone] Anai Pierre MD [address] [facility] [address] [place], [place] [id number] [facility] Start: 12-15-2022 End: 12-15-2022 Patient encounter procedure 12/15/2022 3:10 PM EDT Office Visit [facility] [place] [address] [place] [phone] Anai Pierre MD [address] [place] [address] [facility] Start: 09-07-2022 Ambulation without limitation [facility] Start: 09-07-2022 Medical regimen orde rs management [facility] Start: 09-07-2022 Medication education [facility] Start: 09-07-[address] [facility] Start: 09-07-2022 Procedure discontinued [facility] Start: 09-07-2022 Taking patient vital signs [facility] Start: 09-07-2022 Vital signs measurements [facility] Start: 09-07-2022 [facility] Start: 09-07-2022 Admission procedure [facility] Start: 09-07-2022 Anesthesia intraperitoneal lower abd w/laps nos ANESTH SURG LOWER ABDOMEN [facility] Start: 09-07-2022 Laparoscopy w/rmvl adnexal structures LAPAROSCOPY REMOVE ADNEXA [facility] Start: 06-19-2022 Diabetes mellitus screening Diabetes Screening [facility] Start: 02-18-2022 Pneumococcal Vaccine : Pediatrics (0 to 5 Years) and At-Risk Patients (6 to 49 Years) (2 of 2 - PCV) Pneumococcal Vaccine: Pediatrics (0 to 5 Years) and At-Risk Patients (6 to 49 Years) (2 of 2 - PCV) [facility] Start: 02-18-2022 Pneumococcal Vaccine : Pediatrics (0 to 5 Years) and At-Risk Patients (6 to 64 Years) (2 of 2 - PCV) Pneumococcal Vaccine: Pediatrics (0 to 5 Years) and At-Risk Patients (6 to 64 Years) (2 of 2 - PCV) [facility] Start: 01-21-2022 Influenza vaccination INFLUENZA (#1) [facility] Start: 11-15-2021 [facility] Work Phone: Start: 10-13-2021 PAP TESTING PAP TESTING [facility] Start: 10-13-2021 Screening for malign ant neoplasm of cervix Pap Testing [facility] Start: 09-15-2021 COVID-19 VACCINE (4 - Booster for Moderna series) COVID-19 VACCINE (4 - Booster for Moderna series) [facility] Start: 09-15-2021 COVID-19 VACCINE (4 - Moderna series) COVID-19 VACCINE (4 - Moderna series) [facility] Start: 2020 HPV TESTING HPV TESTING [facility] Start: 2020 Screening for malign ant neoplasm of cervix [facility] Start: 01-22-2020 Influenza vaccination Flu vaccine (# 1) [place] Start: 10-14-2019 Screening for malign ant neoplasm of cervix Cervical Cancer Screening [facility] Start: 06-23-2015 Urine microalbumin profile DTAP,TDAP,TD (7 - Td or Tdap) [facility] Start: 2011 Screening for malign ant neoplasm of cervix [facility] Start: 2008 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 VISIT ANNUAL PCP TEAM CHRONIC DISEASE VISIT [facility] Start: 2008 Hepatitis C screening Hepatitis C Sc reening [facility] Start: 2008 SPIROMETRY SPIROMETRY [facility] Start: 2005 HIV screening [facility] Start: 04-26-2005 Varicella vaccination S [facility] Start: 2002 Depression Monitoring Depression Mon [facility] Start: 2002 Depression Screening [facility] Start: 1996 PNEUMOCOCCAL (1 - PCV) PNEUMOCOCCAL (1 - PCV) [facility] Start: 1993 History and physical examination, annual for health maintenance Wellness Visit [facility] Start: 1991 Varicella vaccine (1 of 2 - 2-dose childhood series) Varicella vaccine (1 of 2 - 2-dose childhood series) [facility] Start: 1990 HIV screening HIV Screening [facility] Start: 1990 Medicare Advantage A nnual Wellness Visit (AWV) Medicare [facility] Annual Wellness Visit (AWV) [facility] CBC W Auto Different ial panel - Blood [facility] End: 08-08-2024 CT Sinuses WO contrast CT Sinus Stealth Without Contrast Imaging Routine Chronic maxillary sinusitis 1 Occurrences starting 08/09/2023 until 08/08/2024 [facility] Work Phone: Comment on above: 1 Occurrences starti ng 08/09/2023 until 08/08/2024 Ferritin [Mass/volum e] in Serum or Plasma [facility] Glucose [Mass/volume ] in Serum or Plasma [facility] Hemoglobin A1c/Hemoglobin.total in Blood [facility] Work Phone: Hemoglobin A1c/Hemoglobin.total in Blood [facility] Iron and Iron bindin g capacity panel - Serum or Plasma [facility] Lipid 1996 panel - S ana or Plasma [facility] Path report.final Dx Spec [facility] Patient Education [facility] Work Phone: Patient referral [facility] Work Phone: Source specific culture [facility] Thyroid stimulating hormone measurement [facility] US Gallbladder [facility] US Pelvis [facility] Work Phone: Pelvis transvaginal [facility] Work Phone: [facility] Immunizations Immunization Date Immunization Notes Care Provider [facility] 02-17-2024 Influenza, injectabl e, Madin Tomeka Canine Kidney, preservative free, quadrivalent [employer] Work Phone: [facility] 02-17-2024 influenza virus vacc ine, unspecified formulation Anai Pierre MD Work Phone: [facility] 02-10-2023 influenza, injectabl e, quadrivalent, preservative free [employer] Work Phone: [facility] 02-01-2022 influenza, injectabl e, quadrivalent, preservative free [employer] Work Phone: [facility] 02-01-2022 influenza virus vacc ine, unspecified formulation Anai Pierre MD Work Phone: [facility] 07-21-2021 Covid (Moderna) V[employer]hya kovacs [employer] Work Phone: [facility] 02-18-2021 pneumococcal polysaccharide vaccine, 23 valent V[employer]hya [employer] Work Phone: [facility] 02-13-2021 COVID-19 vaccine, fu ll dose (MODERNA) Dari White ROOF TRUSS DETAILER.HAND CLERICAL VERIFIER Work Phone: [facility] 01-16-2021 Covid (Moderna) [employer]a [employer]ov[employer] Work Phone: [facility] 11-16-2019 tetanus toxoid, redu emmanuel diphtheria toxoid, and acellular pertussis vaccine, adsorbed Dr. Deon Alfaro Work Phone: [facility] 07-27-2007 human papilloma viru s vaccine, quadrivalent Dari White ROOF TRUSS DETAILER.[facility] Work Phone: [facility] Work Phone: 02-14-2007 human papilloma viru s vaccine, quadrivalent Dari White ROOF TRUSS DETAILER.[facility] Work Phone: [facility] 01-10-2007 human papilloma viru s vaccine, quadrivalent Dari White ROOF TRUSS DETAILER.[facility] Work Phone: [facility] Work Phone: 01-10-2007 Meningococcal, MCV4, unspecified conjugate formulation(groups A, C, Y and W-135) Dari White ROOF TRUSS DETAILER.[facility] Work Phone: [facility] Work Phone: 02-07-2006 hepatitis B vaccine, pediatric or pediatric/adolescent dosage Dari White ROOF TRUSS DETAILER.HAND CLERICAL VERIFIER Work Phone: [facility] Work Phone: 07-29-2005 hepatitis B vaccine, pediatric or pediatric/adolescent dosage Dari White ROOF TRUSS DETAILER.[facility] Work Phone: [facility] Work Phone: 06-23-2005 hepatitis B vaccine, pediatric or pediatric/adolescent dosage Dari White ROOF TRUSS DETAILER.[facility] Work Phone: [facility] Work Phone: 06-23-2005 tetanus toxoid, redu emmanuel diphtheria toxoid, and acellular pertussis vaccine, adsorbed Dari White ROOF TRUSS DETAILER.[facility] Work Phone: [facility] Work Phone: 03-29-2005 influenza virus vacc ine, live, attenuated, for intranasal use Dari White ROOF TRUSS DETAILER.[facility] Work Phone: [facility] Work Phone: 07-22-1999 Chicken Pox (disease) Helen White ROOF TRUSS DETAILER.[facility] Work Phone: [facility] Work Phone: 11-21-1995 diphtheria, tetanus toxoids and pertussis vaccine Daribrit White ROOF TRUSS DETAILER.[facility] Work Phone: [facility] Work Phone: 11-21-1995 measles, mumps and rubella virus vaccine Daribrit White ROOF TRUSS DETAILER.[facility] Work Phone: [facility] Work Phone: 11-21-1995 trivalent poliovirus vaccine, live, oral Dari White ROOF TRUSS DETAILER.[facility] Work Phone: [facility] Work Phone: 06-26-1992 tuberculin skin test ; purified protein derivative solution, intradermal Dari White ROOF TRUSS DETAILER.[facility] Work Phone: [facility] 11-08-1991 diphtheria, tetanus toxoids and pertussis vaccine Daribrit White ROOF TRUSS DETAILER.[facility] Work Phone: [facility] Work Phone: 11-08-1991 trivalent poliovirus vaccine, live, oral Dari White ROOF TRUSS DETAILER.[facility] Work Phone: [facility] Work Phone: 08-09-1991 haemophilus influenz ae type b vaccine, HbOC conjugate Daribrit White ROOF TRUSS DETAILER.[facility] Work Phone: [facility] Work Phone: 08-09-1991 measles, mumps and rubella virus vaccine Dari White ROOF TRUSS DETAILER.[facility] Work Phone: [facility] Work Phone: 01-04-1991 haemophilus influenz ae type b vaccine, HbOC conjugate Dari White ROOF TRUSS DETAILER.[facility] Work Phone: [facility] Work Phone: 1990 diphtheria, tetanus toxoids and pertussis vaccine Dari White ROOF TRUSS DETAILER.[facility] Work Phone: [facility] Work Phone: 1990 haemophilus influenz ae type b vaccine, HbOC conjugate Dari White ROOF TRUSS DETAILER.[facility] Work Phone: [facility] Work Phone: 1990 diphtheria, tetanus toxoids and pertussis vaccine Dari White ROOF TRUSS DETAILER.[facility] Work Phone: [facility] Work Phone: 1990 haemophilus influenz ae type b vaccine, HbOC conjugate Dari White ROOF TRUSS DETAILER.[facility] Work Phone: [facility] Work Phone: 1990 trivalent poliovirus vaccine, live, oral Dari White ROOF TRUSS DETAILER.[facility] Work Phone: [facility] Work Phone: 1990 diphtheria, tetanus toxoids and pertussis vaccine Dari White ROOF TRUSS DETAILER.[facility] Work Phone: [facility] Work Phone: 1990 trivalent poliovirus vaccine, live, oral Dari White ROOF TRUSS DETAILER.[facility] Work Phone: [facility] Work Phone: Payers Date Payer Category Payer Private Health Insurance [id number] 2024 Private Health Insurance [id number] 2024 Self-pay [id number] 2022 Medicaid O [facility] [place] EDICAID ONLY [id number] 2022 Medicare [id number]. [id number] 2022 Medicare (Managed Care) [facility] DUAL COMPLETE HMO POS SNP [id number] 2022 Medicare O [id number]. [id number] 2022 Unknown [id number] 2021 Medicaid [id number]. [id number] 2021 Unknown [id number] 2015 Unknown [id number] 1990 Unknown [id number] 2.16.840.1.012823.3.579.2. 627 1990 Unknown [id number] 2.16.840.1.260273.3.579.2. 627 1990 Unknown [id number] 2.16.840.1.659892.3.579.2. 627 1990 Unknown [id number] 2.16.840.1.298644.3.579.2. 627 Unknown [id number] 2.16.840.1.807316.3.579.2. 462 Unknown [id number] 2.16.840.1.726459.3.579.2. 462 Unknown [id number] 2.16.840.1.978085.3.579.2. 462 Unknown [id number] 2.16.840.1.301969.3.579.2. 462 Unknown [id number] 2.16.840.1.719273.3.579.2. 462 Unknown [id number] 2.16.840.1.314958.3.579.2. 462 Unknown [id number] 2.16.840.1.488966.3.579.2. 462 Unknown [id number] 2.16.840.1.983514.3.579.2. 462 Unknown [id number] 2.16.840.1.181532.3.579.2. 462 Unknown [id number] 2.16.840.1.844369.3.579.2. 462 Unknown [id number] 2.16.840.1.582387.3.579.2. 462 Unknown [id number] 2.16.840.1.091219.3.579.2. 462 Unknown [id number] 2.16.840.1.565739.3.579.2. 462 Unknown [id number] 2.16.840.1.437773.3.579.2. 462 Unknown [id number] 2.840.1.983876.3.579.2. 462 Unknown [id number] 2.840.1.182449.3.579.2. 462 Unknown [id number] 2.840.1.070819.3.579.2. 462 Unknown [id number] 2.840.1.580299.3.579.2. 462 Unknown [id number] 2.840.1.213117.3.579.2. 462 Unknown [id number] 2.840.1.553750.3.579.2. 462 Unknown [id number] 2.840.1.195878.3.579.2. 462 Unknown [id number] 2.840.1.552760.3.579.2. 462 Unknown [id number] 2.840.1.088501.3.579.2. 462 Unknown [id number] .840.1.829712.3.579.2. 462 Unknown [id number] 2.840.1.042923.3.579.2. 462 Unknown [id number] .840.1.865980.3.579.2. 462 Unknown [id number] .840.1.574125.3.579.2. 462 Unknown [id number] .840.1.596625.3.579.2. 462 Unknown [id number] .840.1.354035.3.579.2. 462 Unknown [id number] 2840.1.221541.3.579.2. 462 Social History Date Type Detail Facility Tobacco smoking status NHIS Unknown if ever smoked [place], [place] Start: 1990 Sex Assigned At Not on file [facility] [place], [place] Start: 11-10-2021 End: 06-01-2023 Tobacco smoking status NHIS Unknown if ever smoked [facility] Start: 05-05-2018 None [facility] Start: 11-20-2018 With Family [facility] Start: 1990 Sex Assigned At Female [facility] Start: 01-11-2022 End: 12-09-2023 Tobacco smoking status NHIS Ex-smoker [facility] Work Phone: End: 05-23-2011 History of tobacco use Current smoker [facility] Work Phone: End: 05-23-2011 History of tobacco use Cigarette Smoker [facility] Work Phone: Start: 01-11-2022 End: 12-19-2024 Cigarettes smoked current (pack per day) - Reported 0.5 [facility] Start: 01-11-2022 End: 12-09-2023 Tobacco use and exposure Smokeless tobacco non-user [facility] Work Phone: Start: 01-11-2022 End: 12-19-2024 Alcohol intake Current drinker of alcohol (finding) [facility] Start: 01-11-2022 Tobacco Comment quit 2011 [facility] Start: 01-01-2022 End: 01-19-2023 Exposure to SARS-CoV-2 (event) Not sure [facility] Work Phone: Start: 05-11-2022 End: 12-19-2024 Tobacco use panel [facility] Start: 03-11-2022 Gender identity Identifies as female gender (finding) [facility] Start: 03-11-2022 Sexual orientation Heterosexual (fin ding) [facility] National Score (1-100), lower number is lower risk 77 [facility] Start: 08-09-2023 Tobacco smoking status NHIS Never smoked tobacco [facility] Start: 08-09-2023 Alcohol intake Lifetime non-d wu (finding) [facility] Start: 12-21-2021 End: 05-04-2024 Sex Female (finding) [facility] Tobacco smoking status [facility] NEGATED: Highlighted row [facility] Procedure Code Equipment Code Equipment Origin al Text Equipment Identifier Dates Appendectomy, laparoscopic RELOAD,STANDARD 45 [id number] ETH FDA Start: 05-06-2018 Appendectomy, laparoscopic RELOAD,STANDARD 45 [id number] ETH FDA Start: 05-06-2018 Appendectomy, laparoscopic RELOAD,STANDARD 45 [id number] ETH FDA Start: 05-06-2018 Appendectomy, laparoscopic RELOAD,STANDARD 45 [id number] ETH FDA Start: 05-06-2018 Appendectomy, laparoscopic RELOAD,STANDARD 45 [id number] ETH FDA Start: 05-06-2018 Appendectomy, laparoscopic RELOAD,STANDARD 45 [id number] ETH FDA Start: 05-06-2018 Appendectomy, laparoscopic RELOAD,STANDARD 45 [id number] ETH FDA Start: 05-06-2018 Appendectomy, laparoscopic RELOAD,STANDARD 45 [id number] ETH FDA Start: 05-06-2018 Appendectomy, laparoscopic RELOAD,STANDARD 45 [id number] ETH FDA Start: 05-06-2018 Appendectomy, laparoscopic RELOAD,STANDARD 45 [id number] ETH FDA Start: 05-06-2018 Appendectomy, laparoscopic RELOAD,STANDARD 45 [id number] ETH FDA Start: 05-06-2018 Appendectomy, laparoscopic RELOAD,STANDARD 45 [id number] ETH FDA Start: 05-06-2018 Appendectomy, laparoscopic RELOAD,STANDARD 45 [id number] ETH FDA Start: 05-06-2018 Appendectomy, laparoscopic RELOAD,STANDARD 45 [id number] ETH FDA Start: 05-06-2018 Appendectomy, laparoscopic RELOAD,STANDARD 45 [id number] ETH FDA Start: 05-06-2018 Appendectomy, laparoscopic RELOAD,STANDARD 45 [id number] ETH FDA Start: 05-06-2018 Appendectomy, laparoscopic RELOAD,STANDARD 45 [id number] ETH FDA Start: 05-06-2018 Appendectomy, laparoscopic RELOAD,STANDARD 45 [id number] ETH FDA Start: 05-06-2018 Appendectomy, laparoscopic RELOAD,STANDARD 45 [id number] ETH FDA Start: 05-06-2018 Blood Sugar Diagnostic (Blood Glucose Test) strip Start: 10-11-2018 End: 10-26-2018 Blood Sugar Diagnostic (Blood Glucose Test) strip Start: 10-26-2018 End: 01-12-2019 Blood Sugar Diagnostic (Blood Glucose Test) strip Start: 07-12-2019 End: 02-14-2020 Blood Sugar Diagnostic (Blood Glucose Test) strip Start: 10-11-2018 End: 10-26-2018 Blood Sugar Diagnostic (Blood Glucose Test) strip Start: 10-26-2018 End: 01-12-2019 Blood Sugar Diagnostic (Blood Glucose Test) strip Start: 07-12-2019 End: 02-14-2020 Blood Sugar Diagnostic (Blood Glucose Test) strip Start: 10-11-2018 End: 10-26-2018 Blood Sugar Diagnostic (Blood Glucose Test) strip Start: 10-26-2018 End: 01-12-2019 Blood Sugar Diagnostic (Blood Glucose Test) strip Start: 07-12-2019 End: 02-14-2020 Blood Sugar Diagnostic (Blood Glucose Test) strip Start: 10-11-2018 End: 10-26-2018 Blood Sugar Diagnostic (Blood Glucose Test) strip Start: 10-26-2018 End: 01-12-2019 Blood Sugar Diagnostic (Blood Glucose Test) strip Start: 07-12-2019 End: 02-14-2020 Blood Sugar Diagnostic (Blood Glucose Test) strip Start: 10-11-2018 End: 10-26-2018 Blood Sugar Diagnostic (Blood Glucose Test) strip Start: 10-26-2018 End: 01-12-2019 Blood Sugar Diagnostic (Blood Glucose Test) strip Start: 07-12-2019 End: 02-14-2020 Blood Sugar Diagnostic (Blood Glucose Test) strip Start: 10-11-2018 End: 10-26-2018 Blood Sugar Diagnostic (Blood Glucose Test) strip Start: 10-26-2018 End: 01-12-2019 Blood Sugar Diagnostic (Blood Glucose Test) strip Start: 07-12-2019 End: 02-14-2020 Blood Sugar Diagnostic (Blood Glucose Test) strip Start: 10-11-2018 End: 10-26-2018 Blood Sugar Diagnostic (Blood Glucose Test) strip Start: 10-26-2018 End: 01-12-2019 Blood Sugar Diagnostic (Blood Glucose Test) strip Start: 07-12-2019 End: 02-14-2020 Blood Sugar Diagnostic (Blood Glucose Test) strip Start: 10-11-2018 End: 10-26-2018 Blood Sugar Diagnostic (Blood Glucose Test) strip Start: 10-26-2018 End: 01-12-2019 Blood Sugar Diagnostic (Blood Glucose Test) strip Start: 07-12-2019 End: 02-14-2020 Blood Sugar Diagnostic (Blood Glucose Test) strip Start: 10-11-2018 End: 10-26-2018 Blood Sugar Diagnostic (Blood Glucose Test) strip Start: 10-26-2018 End: 01-12-2019 Blood Sugar Diagnostic (Blood Glucose Test) strip Start: 07-12-2019 End: 02-14-2020 Blood Sugar Diagnostic (Blood Glucose Test) strip Start: 10-11-2018 End: 10-26-2018 Blood Sugar Diagnostic (Blood Glucose Test) strip Start: 10-26-2018 End: 01-12-2019 Blood Sugar Diagnostic (Blood Glucose Test) strip Start: 07-12-2019 End: 02-14-2020 Blood Sugar Diagnostic (Blood Glucose Test) strip Start: 10-11-2018 End: 10-26-2018 Blood Sugar Diagnostic (Blood Glucose Test) strip Start: 10-26-2018 End: 01-12-2019 Blood Sugar Diagnostic (Blood Glucose Test) strip Start: 07-12-2019 End: 02-14-2020 Blood Sugar Diagnostic (Blood Glucose Test) strip Start: 10-11-2018 End: 10-26-2018 Blood Sugar Diagnostic (Blood Glucose Test) strip Start: 10-26-2018 End: 01-12-2019 Blood Sugar Diagnostic (Blood Glucose Test) strip Start: 07-12-2019 End: 02-14-2020 Blood Sugar Diagnostic (Blood Glucose Test) strip Start: 10-11-2018 End: 10-26-2018 Blood Sugar Diagnostic (Blood Glucose Test) strip Start: 10-26-2018 End: 01-12-2019 Blood Sugar Diagnostic (Blood Glucose Test) strip Start: 07-12-2019 End: 02-14-2020 Blood Sugar Diagnostic (Blood Glucose Test) strip Start: 10-11-2018 End: 10-26-2018 Blood Sugar Diagnostic (Blood Glucose Test) strip Start: 10-26-2018 End: 01-12-2019 Blood Sugar Diagnostic (Blood Glucose Test) strip Start: 07-12-2019 End: 02-14-2020 Blood Sugar Diagnostic (Blood Glucose Test) strip Start: 10-11-2018 End: 10-26-2018 Blood Sugar Diagnostic (Blood Glucose Test) strip Start: 10-26-2018 End: 01-12-2019 Blood Sugar Diagnostic (Blood Glucose Test) strip Start: 07-12-2019 End: 02-14-2020 Blood Sugar Diagnostic (Blood Glucose Test) strip Start: 10-11-2018 End: 10-26-2018 Blood Sugar Diagnostic (Blood Glucose Test) strip Start: 10-26-2018 End: 01-12-2019 Blood Sugar Diagnostic (Blood Glucose Test) strip Start: 07-12-2019 End: 02-14-2020 Blood Sugar Diagnostic (Blood Glucose Test) strip Start: 10-11-2018 End: 10-26-2018 Blood Sugar Diagnostic (Blood Glucose Test) strip Start: 10-26-2018 End: 01-12-2019 Blood Sugar Diagnostic (Blood Glucose Test) strip Start: 07-12-2019 End: 02-14-2020 Blood Sugar Diagnostic (Blood Glucose Test) strip Start: 10-11-2018 End: 10-26-2018 Blood Sugar Diagnostic (Blood Glucose Test) strip Start: 10-26-2018 End: 01-12-2019 Blood Sugar Diagnostic (Blood Glucose Test) strip Start: 07-12-2019 End: 02-14-2020 Blood Sugar Diagnostic (Blood Glucose Test) strip Start: 10-11-2018 End: 10-26-2018 Blood Sugar Diagnostic (Blood Glucose Test) strip Start: 10-26-2018 End: 01-12-2019 Blood Sugar Diagnostic (Blood Glucose Test) strip Start: 07-12-2019 End: 02-14-2020 Goals Date Patient Goal Desired Activity /State Functional Status Date Assessment Result Facility 05-04-2024 Functional Status Assistive Device None A [facility] 05-04-2024 Functional Status Standard Safet y ID band on, Call device within reach [facility] 10-11-2014 Are you deaf, or do you have serious difficulty hearing No 10/11/2014 9:59 AM Rochelle Yip LPN [facility] 10-11-2014 Are you blind, or do you have serious difficulty seeing, even when wearing glasses No 10/11/2014 9:59 AM Rochelle Yip LPN No [facility] 10-11-2014 Do you have serious difficulty walking or climbing stairs No 10/11/2014 9:59 AM Rochelle Yip LPN No [facility] 10-11-2014 Do you have difficul ty dressing or bathing No 10/11/2014 9:59 AM Rochelle Yip LPN No [facility] 10-11-2014 Because of a physica l, mental, or emotional condition, do you have difficulty doing errands alone such as visiting a physician's office or shopping No 10/11/2014 9:59 AM EDT Rochelle Hernandez LPN No [facility] Mental Status Date Assessment Result Facility 07-10-2024 Cognitive function Voice/Name [facility] Work Phone: 05-04-2024 Mental Status Orientation Oriented x 4 [facility] 05-04-2024 Mental Status [facility] 09-07-2022 Cognitive function Voice/Name [facility] Work Phone: 10-11-2014 Because of a physica l, mental, or emotional condition, do you have serious difficulty concentrating, remembering, or making decisions No 10/11/2014 9:59 AM EDT Rochelle Hernandez LPN No [facility] Clinical Notes 01-07-2016 to 12-19-2024 Anai Pierre MD - 12/19/2024 10:30 AM EDTSkyler Nichols MA - 12/19/2024 10:30 AM EDT Note Date & Type Note Facility 12-19-2024 History of Presen t illness Narrative HPI, PHYSICAL EXAMINATION & PLAN HPI: Patient here today for follow up for non-surgical weight loss management Weight trend since last visit: lost 2 lbs over 1 m stable weight regain after stopping ozempic This patient's excess weight is causing the following co-morbid conditions at this time:Other IR Physical Examination: Height 5' 2 (1.575 m), weight 169 lb 9.6 oz (76.9 kg). Blood pressure 113/75, pulse 80, height 5' 2 (1.575 m), weight 169 lb 9.6 oz (76.9 kg). General: This patient is calm and [...] Diet This patient s current diet is: 50-80% meal plan Her diet contains adequate amounts of protein, adequate amounts of healthy fats, adequate amounts of green, leafy vegetables, and adequate amounts of fruits. Her comfort foods include: none Current Activity Does not exercise Current Eating Behaviors This patients demonstrates the [...] the meal structure, composition and portion control Review meal structure, meal composition and portion control in details in order will focus on the meal plan Unable to exercise due to LBP Will see pain management and discuss appropriate exercise routine Discuss to adhere to the rule of eating while on GLP 1 Unable to tolerate metformin, adipex, naltrexone On trulicity New dose 4.5 r2 Other IR Continue current management, continue weight loss program Stable [x] Protein goal of 1g protein per [...] anti-obesity medication. I spend a total of 30 minutes on the same day of the [...] was performed.Clinical documentation is updated and completed. [facility] MEDICAL WEIGHT LOSS MANAGEMENT PROGRAM ROOMING NOTE: FOLLOW UP VISIT Patient: Dari Aparicio Date of : 1990 Service Date: 12/19/2024 Patient History/Assessment Summary: The patient is a pleasant 34 y.o. year old female, who stands Height: 5' 2 (157.5 cm) tall with a weight of Weight: 169 lb 9.6 oz (76.9 kg) pounds, resulting in a BMI of Body mass index is 31.02 kg/m . kg/m2. She is here for follow-up for medical treatment of Obesity Patient has the following question(s): none Pre Program Weight Metrics (Epic) (Surgical Wt Loss Management- baseline) This Visit Non-Surgical Subsequent Eval Date: 12/19/24 Height: 5' 2 (157.5 cm) Weight: 169 lb 9.6 oz (76.9 kg) BMI: 31.02 Weight Change: -1.6 lbs Total Weight Change: -27.2 lbs % EBWL: 38% Subsequent Body Fat %: 37.22 Body Fat % Change: -0.35 Follow Up Weight Metrics Last Three Weights Including Today's Weight: Wt Readings from Last 3 Encounters: 12/19/24 169 lb 9.6 oz (76.9 kg) 11/07/24 171 lb 3.2 oz (77.7 kg) 07/13/24 166 lb (75.3 kg) Diabetes Do you currently have diabetes? [...] tolerate or have chosen not to treat? N/A Comorbids summary (flow sheet comorbids) Falls Risk [...] following traits which increases risk of fall: unsteady at times-back issues Patient is not on home O2 Completed by: Skyler Nichols MA documented in this encounter [facility] 12-13-2024 Note Exam Date Time Procedure Performing Provider Status 12/13/24 1:47 PM XR Fluoro Guide for Therapy Injection Modified [id number] ORIGINAL Images acquired, not reported on this accession number. [facility]07-24-2025 Hospital Discharge instructions Patient Education 12/13/2024 08:54:22 Epidural Steroid Injection, Care After Epidural Steroid Injection, Care After Refer to this sheet in the next few weeks. These instructions provide you with information about caring for yourself after your procedure. Your health care provider may also give you more specific instructions. Your treatment has been planned according to current medical practices, but problems sometimes occur. Call your health care provider if you have any problems or questions after your procedure. What can I expect after the procedure? After your procedure, it is common to feel a little discomfort at the injection site. Follow these instructions at home: For 24 hours after the procedure: ?Avoid using heat on the injection site. ?Do not take a tub bath, and do not soak in water. ?Do not drive if you received a medicine to help you relax (sedative). If directed, put ice on the injection site: ?Put ice in a plastic bag. ?Place a towel between your skin and the bag. ?Leave the ice on for 20 minutes, 2 3 times a day. Return to your normal activities as told by your health care provider. Ask your health care provider what activities are safe for you. You may remove the bandage (dressing) after 24 hours. Take mlno-ikd-pbnhapq and prescription medicines only as told by your health care provider. Keep all follow-up visits as told by your health care provider. This is important. Contact a health care provider if: You have a fever. You continue to have pain and soreness around the injection site, even after taking ryav-flv-wfhhzco pain medicine. You have severe, sudden, or lasting nausea or vomiting. Get help right away if: You have severe pain at the injection site that is not relieved by medicines. You develop a severe headache or a stiff neck. You become sensitive to light. You have any new numbness or weakness in your legs or arms. You lose control of your bladder or bowel movements. You have trouble breathing. This information is not intended to replace advice given to you by your health care provider. Make sure you discuss any questions you have with your health care provider. Document Released: 08/24/2011 Document Revised: 04/21/2018 Document Reviewed: 08/24/2016 [employer] Patient Education 2020 [employer]. Follow Up Care 11/20/2024 13:19:20 With:VALENTINA SANTILLAN MD Address: [address] [place] [address] [place] [address] [phone] When: Unknown [facility] 07-24-2025 Note Discharge Instructions Thank you for allowing [facility] to assist you with your healthcare needs. The following is importantdischarge information regarding your hospital visit. Your Care Team STEPH CAMACHO MD, DR. Your Diagnosis Chronic lumbar radiculopathy What to do next Instructions From Your Doctor No contrast was used as the patient is allergic to contrast dye. Scheduled Follow-Up Appointments Appointment Type When With Where Contact Information StatusPM OV 12/26/2024 12:45 PM EDT BROOKLYNN MENENDEZ APRN-HAND CLERICAL VERIFIER [facility] PM [address] [address]- [phone] Confirmed Follow Up Appointments Follow Up with VALENTINA SANTILLAN MD Where:[address] [place] [address]- [phone] The Following Activity and Diet Have Been Ordered for You Discharge Activity - Ordered -- NO activity restrictions, NO driving for 6 hours post-procedure., 12/13/24 8:34:00 EDT Discharge Diet - Ordered -- Resume previous diet as tolerated., 12/13/24 8:34:00 EDT Someone Will Contact You Regarding These Home Health Referrals No home referrals have been ordered for you. No one will call you. Allergies Chantix naproxen Medications Please ask your primary doctor or pharmacist before taking any other medication not listed, including over the counter drugs, herbal medications, vitamins and or supplements as they may interact withyour home medications. What How Much When Why Instructions Last Dose Unchanged desvenlafaxine (Pristiq 50 mg oral tablet, extended release) 1 tab(s) by mouth Every day Unchanged dulaglutide (Trulicity Pen 3 mg/ 0.5 mL subcutaneous solution) 0.5 Milliliter Subcutaneous Every week rotate injection sites Unchanged gabapentin (gabapentin 300 mg oral capsule) 1 cap by mouth Once a day Chronic lumbar radiculopathy Lumbosacral radiculitis Duration: 30 Days 1 caps at bedtime Unchanged omeprazole (omeprazole 40 mg oral delayed release capsule) TAKE 1 CAPSULE BY MOUTH 2 TIMES A DAY Unchanged ondansetron (Zofran 4 mg oral tablet) 1 tab(s) by mouth Every 4 hours as needed for Nausea/Vomiting Please take this list to your next doctor s visit. Bring all medications you take, including over the counter medications, herbals and other supplements with you to your doctor s visit. Patients and families are reminded to discard old lists and to update any records with all medication providers or retail pharmacies. Education Materials Epidural Steroid Injection, Care After Refer to this sheet in the next few weeks. These instructions provide you with information about caring for yourself after your procedure. Your health care provider may also give you more specific instructions. Your treatment has been planned according to current medical practices, but problems sometimes occur. Call your health care provider if you have any problems or questions after your procedure. What can I expect after the procedure? After your procedure, it is common to feel a little discomfort at the injection site. Follow these instructions at home: For 24 hours after the procedure: ? Avoid using heat on the injection site. ? Do not take a tub bath, and do not soak in water. ? Do not drive if you received a medicine to help you relax (sedative). If directed, put ice on the injection site: ? Put ice in a plastic bag. ? Place a towel between your skin and the bag. ? Leave the ice on for 20 minutes, 2 3 times a day. Return to your normal activities as told by your health care provider. Ask your health care provider what activities are safe for you. You may remove the bandage (dressing) after 24 hours. Take owqp-ryu-zcpazvc and prescription medicines only as told by your health care provider. Keep all follow-up visits as told by your health care provider. This is important. Contact a health care provider if: You have a fever. You continue to have pain and soreness around the injection site, even after taking xidt-tbm-yahnpot pain medicine. You have severe, sudden, or lasting nausea or vomiting. Get help right away if: You have severe pain at the injection site that is not relieved by medicines. You develop a severe headache or a stiff neck. You become sensitive to light. You have any new numbness or weakness in your legs or arms. You lose control of your bladder or bowel movements. You have trouble breathing. This information is not intended to replace advice given to you by your health care provider. Make sure you discuss any questions you have with your health care provider. Document Released: 08/24/2011 Document Revised: 04/21/2018 Document Reviewed: 08/24/2016 [employer] Patient Education 2020 [employer] Additional Information VACCINATE! IT SAVES LIVES! Members of the community who have not yet received the COVID-19 vaccine and would like to receive it can visit one of [facility] vaccine clinics. There are many vaccine clinic locations within the [facility]. For locations and available times, please visit https://[email or web address].[place].gov/. It is important to note that some COVID mobile vaccine clinics are held outdoors and may be canceled in rainy or stormy conditions. To learn more about pediatric vaccinations (ages 5-11), we invite you to visit the [facility] webpage. [email or web address].[email or web address]/pages/[email or web address]-Lgyqsiobktj-Sskpjxacox-Xncov-Dez stions.htmlTo learn more about the COVID-19 vaccine, we invite you to visit the CDC website for a list of frequently asked questions.https://www.cdc.gov/coronavirus/2019-ncov/vaccines/faq.html [facility] Patient Portal Access Instructions: Stay connected with your healthcare team and access your personal medical information anytime with the [facility] Patient Portal. Please follow the directions below to create your [employer] account: 1.Access the email account you provided upon registration to the hospital/physician office.2.Look for an invitation email from [facility].3.Open the email and access the invitation link: AcceptInvitation to [employer].4.Fill in the required mark to create your account. To access your account, visit [email or web address]. Click the blue button labeled Access Patient Portal and then log in with the username and password that you created in the steps above. You will be able to view your test results, lab results, a summary of your visits, upcoming appointments and more. There is also a convenient messaging option where you can send secure messages to your p [employer]. In addition, you will have the ability to download any documents or summaries to your computer and/or send the information securely to a physician. Remember that your healthcare information is confidential, so carefully consider who you will allowto register on the [facility] Patient Portal for access to your information. You can also access the [facility] Patient Portal on the [facility] [employer] yaya. Simply click on Patient Portal and then log into your account. If you would like to receive a full copy of your medical records, please contact the [facility] Medical Records Department by calling [phone], Tuesday through Tuesday between 8 a.m. and 4:30 p.m. HOW TO SAFELY DISPOSE OF PRESCRIPTION MEDICATIONS Please use one of the following methods to safely dispose of your unused medications. 1.Use a drug disposal kit: the drug disposal pouch allows you to safely discard your old and unuseddrugs. Ask your nurse to give you one when you are discharged.2.Visit a local take-back location: Many local pharmacies and police departments have programs that collect old and unwanted prescriptiondrugs. Call your local pharmacy or go to http://[employer]/8N0Ep8h to find one close to you.3.Make use of household items: Use cat litter or old coffee grounds to dispose medications if other options arenot available. Mix your drugs with these household products, seal them in an airtight container andthrow it into the garbage. Call [facility]: [phone] to be sure your drugs can be disposed of in this way. Some medicines may require a different approach.4.Never flush your medications down the toilet. IF YOU HAVE BEEN PRESCRIBED AN OPIOID FOR PAIN If you have been prescribed an opioid (such as hydrocodone, oxycodone or morphine), it is critical to understand the possible side effects and risks of opioid pain medications. Even when taken as directed, opioids can have several side effects including: Tolerance, meaning you might need to take more of a medication for the same pain relief. Nausea, vomiting and/or constipation. Sleepiness, dizziness, dry mouth, confusion, depression or itching. Physical dependence, meaning you have withdrawal symptoms when a medication is stopped, can develop within a few days. KNOW YOUR RESPONSIBILITIES It is important to know exactly how much and how often to take the opioid pain medications you are prescribed. Never take opioids in higher amounts or more often than prescribed. Do not combine opioids with alcohol or other drugs that cause drowsiness, such as benzodiazepines, also known as benzos, including diazepam and alprazolam, muscle relaxants or sleep aids. Never sell or share prescription opioids. This is illegal. Store opioids in a secure place and out of reach of others (including children, family, friends and visitors). The last page of this document has been signed and retained as a CHART COPY. Signatures Patient Education Materials Epidural Steroid Injection, Care After Medication Leaflets My discharge plan and instructions have been reviewed and explained to me and IMARKUS JESSICA understand my current condition and have read and understand these discharge instructions. I have received a written copy of the plan/instructions. If I have questions, I am aware that I should contact my d octor. 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 Molder Signature: Date/Time: Relationship to Patient: Witness Name/Signature: Date/Time: [facility] Johnson [id number] History of Present illness Narrative * Anai Pierre MD - 11/07/2024 10:30 AM EDT HPI, PHYSICAL EXAMINATION & PLAN HPI: Patient here today for follow up for non-surgical weight loss management Weight trend since last visit: gain 5 lbs over 1 m stable weight regain after stopping ozempic This patient's excess weight is causing the following co-morbid conditions at this time:Other IR Physical Examination: Blood pressure 109/75, pulse 82, height 5' 2 (1.575 m), weight 171 lb 3.2 oz (77.7 kg). General: This patient is calm and [...] Diet This patient s current diet is: 50-80% meal plan Her diet contains adequate amounts of protein, adequate amounts of healthy fats, adequate amounts of green, leafy vegetables, and adequate amounts of fruits. Her comfort foods include: none Current Activity Does not exercise Current Eating Behaviors This patients demonstrates the [...] the meal structure, composition and portion control Review meal structure, meal composition and portion control in details in order will focus on the meal plan Unable to exercise due to LBP Will see pain management and discuss appropriate exercise routine Unable to tolerate metformin, adipex, naltrexone On trulicity New dose 3.0 R1 Other IR Continue current management, continue weight loss program Stable Working with [facility] on her current symptoms [x] Protein goal of 1g protein per [...] anti-obesity medication. I spend a total of 30 minutes on the same day of the [...] was performed.Clinical documentation is updated and completed. * Skyler Nichols MA - 11/07/2024 10:30 AM EDT [facility] MEDICAL WEIGHT LOSS MANAGEMENT PROGRAM ROOMING NOTE: FOLLOW UP VISIT Patient: Dari Aparicio Date of : 1990 Service Date: 11/07/2024 Patient History/Assessment Summary: The patient is a pleasant 34 y.o. year old female, who stands Height: 5' 2 (157.5 cm) tall with a weight of Weight: 171 lb 3.2 oz (77.7 kg) pounds, resulting in a BMI of Body mass index is 31.31 kg/m . kg/m2. She is here for follow-up for medical treatment of Obesity Patient has the following question(s): none Pre Program Weight Metrics (Epic) (Surgical Wt Loss Management- baseline) This Visit Non-Surgical Subsequent Eval Date: 11/07/24 Height: 5' 2 (157.5 cm) Weight: 171 lb 3.2 oz (77.7 kg) BMI: 31.31 Weight Change: 5.2 lbs Total Weight Change: -25.6 lbs % EBWL: 36% Subsequent Body Fat %: 37.57 Body Fat % Change: 1.14 Follow Up Weight Metrics Last Three Weights Including Today's Weight: Wt Readings from Last 3 Encounters: 11/07/24 171 lb 3.2 oz (77.7 kg) 07/13/24 166 lb (75.3 kg) 06/15/24 169 lb 6.4 oz (76.8 kg) Diabetes Do you currently have diabetes? [...] cholesterol? No Are you currently prescribed a medicationfor high cholesterol? (examples Lipitor/Atorvastatin, Pravastatin, Zetia, Tricor, [...] tolerate or have chosen not to treat? N/A Comorbids summary (flow sheet comorbids) Falls Risk [...] is not on home O2 Completed by: Skyler Nichols MA documented in this [facility]04-05-2025 Radiology Diagnostic study note [facility] Imaging Services [address] [place], [place] [address]SHIVA ORNELAS [place], [place] [id number] Lumbar Spine 2 or 3 Views MR#: [id number] Acct: [id number] Name: DARI APARICIO Rep #: [id number] : 1990 F 34 From: James Cortez MD PCP: Dr. Steph Camacho MD Status: REG CLI Study:Lumbar Spine 2 or 3 Views Date of Exam: 08/24/24 Exam# [id number] Ordering Dr: Kael Nascimento PROCEDURE: LUMBAR SPINE 2 OR 3 VIEWS 08/24/2024 REASON FOR EXAM: CHRONIC BACK PAIN, PAIN DOWN BOTH LEGS TECHNIQUE: 2 view(s) of the lumbar spine COMPARISON: None available FINDINGS: No fracture or malalignment. The disc spaces appear within limits. SI joints appear within limits as imaged. RAD/Lumbar Spine 2 or 3 Views IMPRESSION: Study appears with Reading Location: [id number] CC: Dr. Steph Camacho MD; CAROLYN Anton ~ Patient Care Specialist: Signed [facility]04-02-2025 Evaluation note* Diagnosis Onset Date Resolution Status Admit Date Chronic back pain chronic August 222024 2:44pm Depression with anxiety deleted A pril 2024 2:44pm Lumbar radiculopathy acute Apri l 2024 9:16am Depression acute September 17 10:16am IBS (irritable bowel syndrome) acute September 17, 2024 10:16am Lumbar radiculopathy acute Apri l 2024 10:16am Generalized anxiety disorder chronic September 17, 2024 10:16am Obesity (BMI 30-39.9) chronic Apr il 2024 10:16am Establishing care with new doctor, encounter for noneactive August 10:16am Latent tuberculosis noneactive September 17, 2024 10:16am GERD (gastroesophageal reflu x disease) noneactive September 17, 2024 10:16am Vitamin D deficiency noneactive Apri l 2024 10:16am Encounter for routine gynecological examination noneactive September 8:27am Lumbar radiculopathy acute October 09, 2024 8:09am [facility] Work Phone: 1(972) 763-343504-02-2025 Evaluation note* Diagnosis Onset Date Resolution Status Admit Date Chronic back pain chronic August 222024 2:44pm Depression with anxiety deleted A pril 2024 2:44pm Lumbar radiculopathy acute Apri l 2024 9:16am Depression acute September 17 10:16am IBS (irritable bowel syndrome) acute September 17, 2024 10:16am Lumbar radiculopathy acute Apri l 2024 10:16am Generalized anxiety disorder chronic September 17, 2024 10:16am Obesity (BMI 30-39.9) chronic Apr il 2024 10:16am Establishing care with new doctor, encounter for noneactive August 10:16am Latent tuberculosis noneactive September 17, 2024 10:16am GERD (gastroesophageal reflu x disease) noneactive September 17, 2024 10:16am Vitamin D deficiency noneactive Apri 2024 10:16am Encounter for routine gynecological examination noneactive September 8:27am Lumbar radiculopathy acute October 09, 2024 8:09am Vaginal discharge noneactive December 032024 2:42pm Vaginal odor noneactive December 03, 2:42pm [facility] Work Phone: 1([phone]) 571-601003-08-2025 Evaluation note* Diagnosis Onset Date Resolution Status Admit Date Influenza A resolved July 28 10:17am Chronic back pain chronic August 222024 2:44pm Depression with anxiety deleted A pril 2024 2:44pm Lumbar radiculopathy acute Apri 2024 9:16am Depression acute September 17 10:16am IBS (irritable bowel syndrome) acute September 17, 2024 10:16am Lumbar radiculopathy acute Apri l 2024 10:16am Generalized anxiety disorder chronic September 17, 2024 10:16am Obesity (BMI 30-39.9) chronic Apr il 2024 10:16am Establishing care with new doctor, encounter for noneactive August 10:16am Latent tuberculosis noneactive September 17, 2024 10:16am GERD (gastroesophageal reflu x disease) noneactive September 17, 2024 10:16am Vitamin D deficiency noneactive Apri l 2024 10:16am Encounter for routine gynecological examination noneactive September 8:27am [facility] Work Phone: [phone] Evaluation note* Diagnosis Onset Date Resolution Status Admit Date Influenza A resolved July 28 10:17am Chronic back pain chronic August 222024 2:44pm Depression with anxiety deleted A pril 2024 2:44pm Lumbar radiculopathy acute Apri l 2024 9:16am Depression acute September 17 10:16am IBS (irritable bowel syndrome) acute September 17, 2024 10:16am Lumbar radiculopathy acute Apri l 2024 10:16am Generalized anxiety disorder chronic September 17, 2024 10:16am Obesity (BMI 30-39.9) chronic Apr il 2024 10:16am Establishing care with new doctor, encounter for noneactive August 10:16am Latent tuberculosis noneactive September 17, 2024 10:16am GERD (gastroesophageal reflu x disease) noneactive September 17, 2024 10:16am Vitamin D deficiency noneactive Apri l 2024 10:16am Encounter for routine gynecological examination noneactive September 8:27am Lumbar radiculopathy acute October 09, 2024 8:09am [facility] Work Phone: [phone] NoteDari is calling in again to schedule a new patient consultation. Reached out to the back line and they said that Lory will call her back to get her scheduled when she is free. Please contact to schedule.[facility] 07-25-2024 Telephone encounter Note* Telephone Encounter - Altaf Flores - 07/25/2024 10:42 AM EST Dari is calling in again to schedule a new patient consultation. Reached out to the back line and they said that Lory will call her back to get her scheduled when she is free. Please contact to schedule. [id number] Miscellaneous Notes* Telephone Encounter - Altaf Abel Flores - 07/25/2024 10:42 AM EST Dari is calling in again to schedule a new patient consultation. Reached out to the back line and they said that Lory will call her back to get her scheduled when she is free. Please contact to schedule. * Telephone Encounter - Christina Carter - 07/24/2024 10:40 AM EST Name of caller: Dari Contact phone number: [phone] Relationship to Patient: patient Provider: soonest available Practice: [facility] Chief Complaint/Reason for Call: patient is calling in checking on the status of their referral that they state was faxed over twice from [facility]. Patient would like a callback please adviseand thank you Best time of day caller can be reached: any Patient advised that office/PCP has 24-48 business hours to return their call: Yes documented in this [facility] [id number] Telephone encounter Note* Telephone Encounter - Christina Carter - 07/24/2024 10:40 AM EST Name of caller: Dari Contact phone number: [phone] Relationship to Patient: patient Provider: soonest available Practice: [facility] Chief Complaint/Reason for Call: patient is calling in checking on the status of their referral that they state was [facility]. Patient would like a callback please adviseand thank you Best time of day caller can be reached: any Patient advised that office/PCP has 24-48 business hours to return their call: Yes [facility] [id number] NoteSpoke to pt previously in regard to consultation. Will discuss with residents and infor pt of their decision.[facility]02-21-2025 History of Present illness Narrative* Kiera Hinds MA - 07/13/2024 2:30 PM EST [facility] NON-SURGICAL WEIGHT LOSS MANAGEMENT PROGRAM ROOMING NOTE: FOLLOW UP VISIT Patient: Dari Aparicio Date of : 1990 Service Date: 07/13/2024 Patient History/Assessment Summary: The patient is a pleasant 34 y.o. year old female, who stands Height: 5' 2 (157.5 cm) tall with a weight of Weight: 166 lb (75.3 kg) pounds, resulting in a BMI of Body mass index is 30.36 kg/m . kg/m2. She is here for follow-up for non-surgical treatment of over weight. Patient has the following question(s): none Pre Program Weight Metrics (Epic) (Surgical Wt Loss Management- baseline) This Visit Non-Surgical Subsequent Eval Date: 07/13/24 Height: 5' 2 (157.5 cm) Weight: 166 lb (75.3 kg) BMI: 30.36 Weight Change: -3.4 lbs Total Weight Change: -30.8 lbs % EBWL: 43% Subsequent Body Fat %: 36.43 Body Fat % Change: -0.75 Follow Up Weight Metrics Last Three Weights Including Today's Weight: Wt Readings from Last 3 Encounters: 07/13/24 166 lb (75.3 kg) 06/15/24 169 lb 6.4 oz (76.8 kg) 12/09/23 142 lb 9.6 oz (64.7 kg) Diabetes Do you currently have diabetes? [...] cholesterol? No Are you currently prescribed a medicationfor high cholesterol? (examples Lipitor/Atorvastatin, Pravastatin, Zetia, Tricor, [...] sheet comorbids) Falls Risk Assessment Patient does take medications which affect BP or mental [...] home O2 Completed by: Kiera Hinds MA * Anai Pierre MD - 07/13/2024 2:30 PM EST HPI, PHYSICAL EXAMINATION & PLAN HPI: Patient here today for follow up for non-surgical weight loss management Weight trend since last visit: lost 3 lbs over 1 m stable weight regain after stopping ozempic This patient's excess weight is causing the following co-morbid conditions at this time:Other IR Physical Examination: Blood pressure 119/73, pulse 87, height 5' 2 (1.575 m), weight 166 lb (75.3 kg). General: This patient is calm and [...] Diet This patient s current diet is: 50-80% meal plan Her diet contains adequate amounts of protein, adequate amounts of healthy fats, adequate amounts of green, leafy vegetables, and adequate amounts of fruits. Her comfort foods include: none Current Activity Does not exercise Current Eating Behaviors This patients demonstrates the [...] the meal structure, composition and portion control Review meal structure, meal composition and portion control in details in order to restart the healthy lifestyle Will restart meal plan and exercise Discuss how to do 1000 jeremy Discuss high caloric density food Unable to tolerate metformin, adipex Trial of naltrexone Discuss side effects in details Other IR Continue current management, continue weight loss program Stable Working with [facility] on her current symptoms [x] Protein goal of 1g protein per [...] anti-obesity medication. I spend a total of 30 minutes on the same day of the [...] is updated and completed. documented in this [facility]02-21-2025 Instructions* Patient Instructions* Anai Pierre MD - 07/13/2024 2:30 PM EST Patient Education Naltrexone (nal TREKS one) Brand Names: [place] Vivitrol Brand Names: Gabriella APO-Naltrexone; ReVia What is this drug used for? It is used to help keep you alcohol-free. It is used to help keep you opioid-free. Opioid drugs include heroin and prescription pain drugs like oxycodone and morphine. It may be given to you for other reasons. Talk with the doctor. What do I need to tell my doctor BEFORE I take this drug? If you are allergic to this drug; any part of this drug; or any other drugs, foods, or substances. Tell your doctor about the allergy and what signs you had. If you are taking an opioid drug like morphine or oxycodone, are addicted to an opioid drug, or arehaving withdrawal signs. If you have taken a pain drug within the past 7 to 14 days. This is not a list of all drugs or health problems that interact with this drug. Tell your doctor and pharmacist about all of your drugs (prescription or OTC, natural products, vitamins) and health problems. You must check to make sure that it is safe for you to take this drug with all of your drugs and health problems. Do not start, stop, or change the dose of any drug withoutchecking with your doctor. What are some things I need to know or do while I take this drug? All products: Tell all of your health care providers that you take this drug. This includes your doctors, nurses,pharmacists, and dentists. Avoid driving and doing other tasks or actions that call for you to be alert until you see how thisdrug affects you. Have blood work checked as you have been told by the doctor. Talk with the doctor. This drug may affect certain lab tests. Tell all of your health care providers and lab workers thatyou take this drug. Avoid drinking alcohol while taking this drug. Do not take opioid drugs while you are taking this drug. Opioid drugs will not work. Do not take more opioid drugs to try to get them to work. Doing this may cause severe injury, coma, or . A drug called naloxone can be used to help treat an opioid overdose. Your doctor may order naloxonefor you to keep with you if it is needed. If you have questions about how to get or use naloxone, talk with your doctor or pharmacist. If you think there has been an opioid overdose, get medical careright away even if naloxone has been used. If you are addicted to opioid drugs and are given this drug, you may have signs of withdrawal. If you have questions, talk with your doctor. Tell your doctor if you are , plan on getting , or are breast- feeding. You will need to talk about the benefits and risks to you and the baby. Tablets: Have patient safety card with you at all times. People taking this drug to keep an opioid-free state may get more effects from opioid drugs when this drug is stopped. Even low amounts of opioid drugs or amounts that you have used before may lead to overdose and . If you have questions, talk with your doctor. Injection: After you get a dose of this drug, its blocking effect on opioids will go away over time. Low amounts of opioid drugs or amounts that you have used before may lead to overdose and . This effect may also be seen when it is time for your next dose of this drug, if you miss a dose, if you stop treatment, or if you have gone through treatment and are opioid-free. Very bad skin problems have happened where the shot was given. Sometimes surgery was needed for these skin problems. Talk with the doctor. A type of lung infection caused by an allergic reaction has happened with this drug. This may need to be treated in a hospital. What are some side effects that I need to call my doctor about right away? WARNING/CAUTION: Even though it may be rare, some people may have very bad and sometimes deadly side effects when taking a drug. Tell your doctor or get medical help right away if you have any of thefollowing signs or symptoms that may be related to a very bad side effect: All products: Signs of an allergic reaction, like rash; hives; itching; red, swollen, blistered, or peeling skin with or without fever; wheezing; tightness in the chest or throat; trouble breathing, swallowing, ortalking; unusual hoarseness; or swelling of the mouth, face, lips, tongue, or throat. Signs of liver problems like dark urine, feeling tired, not hungry, upset stomach or stomach pain, light-colored stools, throwing up, or yellow skin or eyes. Signs of high blood pressure like very bad headache or dizziness, passing out, or change in eyesight. New or worse behavior or mood changes like depression or thoughts of suicide. Feeling confused. Trouble breathing, slow breathing, or shallow breathing. Sex problems in males. Injection: Signs of lung or breathing problems like shortness of breath or other trouble breathing, cough, or fever. Area that feels hard, blisters, dark scab, lumps, open wound, pain, swelling, or other very bad skin irritation where the shot was given. What are some other side effects of this drug? All drugs may cause side effects. However, many people have no side effects or only have minor sideeffects. Call your doctor or get medical help if any of these side effects or any other side effects bother you or do not go away: All products: Feeling nervous and excitable. Anxiety. Headache. Muscle cramps. Constipation, diarrhea, stomach pain, upset stomach, throwing up, or feeling less hungry. More thirst. Trouble sleeping. Feeling dizzy, sleepy, tired, or weak. Back, muscle, or joint pain. Signs of a common cold. Tooth pain. Injection: Irritation where the shot is given. Nose or throat irritation. Dry mouth. These are not all of the side effects that may occur. If you have questions about side effects, call your doctor. Call your doctor for medical advice about side effects. You may report side effects to your national health agency. You may report side effects to the FDA at . You may also report side effects at https://www.fda.gov/medwatch. How is this drug best taken? Use this drug as ordered by your doctor. Read all information given to you. Follow all instructionsclosely. Tablets: Keep taking this drug as you have been told by your doctor or other health care provider, even if you feel well. Injection: It is given as a shot into a muscle. What do I do if I miss a dose? Tablets: Take a missed dose as soon as you think about it. If it is close to the time for your next dose, skip the missed dose and go back to your normal time. Do not take 2 doses at the same time or extra doses. Injection: Call your doctor to find out what to do. How do I store and/or throw out this drug? Tablets: Store at room temperature in a dry place. Do not store in a bathroom. Injection: If you need to store this drug at home, talk with your doctor, nurse, or pharmacist about how to store it. All products: Keep all drugs in a safe place. Keep all drugs out of the reach of children and pets. Throw away unused or drugs. Do not flush down a toilet or pour down a drain unless you are told to do so. Check with your pharmacist if you have questions about the best way to throw out drugs. There may be drug take-back programs in your area. General drug facts If your symptoms or health problems do not get better or if they become worse, call your doctor. Do not share your drugs with others and do not take anyone else's drugs. Some drugs may have another patient information leaflet. If you have any questions about this drug,please talk with your doctor, nurse, pharmacist, or other health care provider. Some drugs may have another patient information leaflet. Check with your pharmacist. If you have any questions about this drug, please talk with your doctor, nurse, pharmacist, or other health care provider. If you think there has been an overdose, call your poison control center or get medical care right away. Be ready to tell or show what was taken, how much, and when it happened. Consumer Information Use and Disclaimer This generalized information is a limited summary of diagnosis, treatment, and/or medication information. It is not meant to be comprehensive and should be used as a tool to help the user understand and/or assess potential diagnostic and treatment options. It does NOT include all information about conditions, treatments, medications, side effects, or risks that may apply to a specific patient. Itis not intended to be medical advice or a substitute for the medical advice, diagnosis, or treatment of a health care provider based on the health care provider's examination and assessment of a patient's specific and unique circumstances. Patients must speak with a health care provider for complete information about their health, medical questions, and treatment options, including any risks or benefits regarding use of medications. This information does not endorse any treatments or medications as safe, effective, or approved for treating a specific patient. [employer] and its affiliatesdisclaim any warranty or liability relating to this information or the use thereof. The use of thisinformation is governed by the Terms of Use, available at https://www.Parsimotionuwer.com/en/know/yxsojggf-jrfnqjbwnicil-ssyxt. Last Reviewed Date 2020-08-19 Copyright 2021 [employer] and its affiliates and/or licensors. All rights reserved. * Attachments The following attachments cannot be sent through Care Everywhere. * Naltrexone, ADULT ([place]) documented in this [facility]02-21-2025 NotePatient Education Naltrexone (nal TREKS one) Brand Names: [place] Vivitrol Brand Names: Gabriella APO-Naltrexone; ReVia What is this drug used for? It is used to help keep you alcohol-free. It is used to help keep you opioid-free. Opioid drugs include heroin and prescription pain drugs like oxycodone and morphine. It may be given to you for other reasons. Talk with the doctor. What do I need to tell my doctor BEFORE I take this drug? If you are allergic to this drug; any part of this drug; or any other drugs, foods, or substances. Tell your doctor about the allergy and what signs you had. If you are taking an opioid drug like morphine or oxycodone, are addicted to an opioid drug, or are having withdrawal signs. If you have taken a pain drug within the past 7 to 14 days. This is not a list of all drugs or health problems that interact with this drug. Tell your doctor and pharmacist about all of your drugs (prescription or OTC, natural products, vitamins) and health problems. You must check to make sure that it is safe for you to take this drug with all of your drugs and health problems. Do not start, stop, or change the dose of any drug without checking with your doctor. What are some things I need to know or do while I take this drug? All products: Tell all of your health care providers that you take this drug. This includes your doctors, nurses, pharmacists, and dentists. Avoid driving and doing other tasks or actions that call for you to be alert until you see how this drug affects you. Have blood work checked as you have been told by the doctor. Talk with the doctor. This drug may affect certain lab tests. Tell all of your health care providers and lab workers that you take this drug. Avoid drinking alcohol while taking this drug. Do not take opioid drugs while you are taking this drug. Opioid drugs will not work. Do not take more opioid drugs to try to get them to work. Doing this may cause severe injury, coma, or . A drug called naloxone can be used to help treat an opioid overdose. Your doctor may order naloxone for you to keep with you if it is needed. If you have questions about how to get or use naloxone, talk with your doctor or pharmacist. If you think there has been an opioid overdose, get medical care right away even if naloxone has been used. If you are addicted to opioid drugs and are given this drug, you may have signs of withdrawal. If you have questions, talk with your doctor. Tell your doctor if you are , plan on getting , or are breast-feeding. You will need to talk about the benefits and risks to you and the baby. Tablets: Have patient safety card with you at all times. People taking this drug to keep an opioid-free state may get more effects from opioid drugs when this drug is stopped. Even low amounts of opioid drugs or amounts that you have used before may lead to overdose and . If you have questions, talk with your doctor. Injection: After you get a dose of this drug, its blocking effect on opioids will go away over time. Low amounts of opioid drugs or amounts that you have used before may lead to overdose and . This effect may also be seen when it is time for your next dose of this drug, if you miss a dose, if you stop treatment, or if you have gone through treatment and are opioid-free. Very bad skin problems have happened where the shot was given. Sometimes surgery was needed for these skin problems. Talk with the doctor. A type of lung infection caused by an allergic reaction has happened with this drug. This may need to be treated in a hospital. What are some side effects that I need to call my doctor about right away? WARNING/CAUTION: Even though it may be rare, some people may have very bad and sometimes deadly side effects when taking a drug. Tell your doctor or get medical help right away if you have any of the following signs or symptoms that may be related to a very bad side effect: All products: Signs of an allergic reaction, like rash; hives; itching; red, swollen, blistered, or peeling skin with or without fever; wheezing; tightness in the chest or throat; trouble breathing, swallowing, or talking; unusual hoarseness; or swelling of the mouth, face, lips, tongue, or throat. Signs of liver problems like dark urine, feeling tired, not hungry, upset stomach or stomach pain, light-colored stools, throwing up, or yellow skin or eyes. Signs of high blood pressure like very bad headache or dizziness, passing out, or change in eyesight. New or worse behavior or mood changes like depression or thoughts of suicide. Feeling confused. Trouble breathing, slow breathing, or shallow breathing. Sex problems in males. Injection: Signs of lung or breathing problems like shortness of breath or other trouble breathing, cough, or fever. Area that feels hard, blisters, dark scab, lumps, open wound, pain, (more content not included)...[facility]02-18-2025 Telephone encounter Note* Telephone Encounter - Nicole Alba MA - 07/10/2024 12:02 PM EST Patient came to urgent care today, sent to ED. Nicole Alba MA [facility]02-18-2025 Miscellaneous Notes* Telephone Encounter - Nicole Alba MA - 07/10/2024 12:02 PM EST Patient came to urgent care today, sent to ED. Nicole Alba MA * Telephone Encounter - Prudencio Ortiz PA - 07/10/2024 9:40 AM EST Inhaler sent to pharmacy. * Telephone Encounter - Nyla Acosta RN - 07/10/2024 9:07 AM EST Pt reports she was seen in UC on Tuesday and prescribed AB and cough pills for pneumonia. Reports the cough pills are not helping her cough. Reports she has a hx of asthma, and having SOB but no wheezing. Asking if UC can refill her albuterol inhaler? [facility] [place]. Patient does not have a pcp. Please advise pt. [facility] NoteHNO ID: [id number] Author: VANDANA MIRELES APRN.EDEN Service: ? Author Type: Nurse Practitioner Type: Progress Notes Filed: 07/10/2024 12:01 Note Text: Patient came in with complaints of worsening symptoms. Several days ago patient was diagnosed with pneumonia and placed on Augmentin. Patient says now she is having severe diarrhea unable to even hold it feeling very weak and fatigued. Patient says she feels extremely dizzy. Due to all the symptoms patient is being referred to the emergency room. Patient was agreeable and caregiver with her will take her now.[facility]02-18-2025 History of Present illness Narrative* Vandana Mireles APRN.EDEN - 07/10/2024 11:56 AM EST Patient came in with complaints of worsening symptoms. Several days ago patient was diagnosed with pneumonia and placed on Augmentin. Patient says now she is having severe diarrhea unable to even hold it feeling very weak and fatigued. Patient says she feels extremely dizzy. Due to all the symptomspatient is being referred to the emergency room. Patient was agreeable and caregiver with her will take her now. [facility] Telephone encounter Note * Telephone Encounter - Prudencio Ortiz PA - 07/10/2024 9:40 AM EST Inhaler sent to pharmacy. [facility]02-18-2025 Telephone encounter Note* Telephone Encounter - Nyla Acosta RN - 07/10/2024 9:07 AM EST Pt reports she was seen in UC on Tuesday and prescribed AB and cough pills for pneumonia. Reports the cough pills are not helping her cough. Reports she has a hx of asthma, and having SOB but no wheezing. Asking if UC can refill her albuterol inhaler? [facility] [place]. Patient does not have a pcp. Please advise pt. [facility]02-16-2025 Instructions* Patient Instructions* Shital Cummins APRN.CNP - 07/08/2024 10:43 AM EST ASSESSMENT/PLAN: 1. Lower resp. tract infection - ICD9: 519.8, ICD10: J22 - AZITHROMYCIN 250 MG TABLET - AMOXICILLIN 875 MG-POTASSIUM CLAVULANATE 125 MG TABLET - BENZONATATE 100 MG CAPSULE - Follow-up with your PCP in 3-5 days if symptoms have not improved or sooner if symptoms worsen - Discussed red flags and need for immediate medical evaluation if any occur. - Discussed supportive care treatment with fluids, rest and analgesia. - Discussed expected course of illness Shital Cummins APRN.CNP Treatment for Upper Respiratory Tract Infections Drink lots of fluids Make sure you are eating well Get plenty of rest Antibiotics are used to treat bacterial infections; however, they are not active against viral infections. There are some things that might help you feel better, though. Vaporizers, humidifiers, hot showers, and hot fluids help open respiratory and sinus passages [facility] may offer relief of nasal and head congestion [facility] Vapor Rub may relieve congestion Tylenol and Advil help control fevers and headaches Salt water gargles help relieve sore throats Chloraceptic spray or throat lozenges may also help relieve sore throat symptoms You should see your doctor or return to the Urgent Care if: You have fevers for longer than five days You have fevers above 102 degrees You are still sick after 10 days You have shortness of breath or wheezing After several days you are getting worse rather than better documented in this [facility]25 NoteHNO ID: [id number] Author: SHITAL CUMMINS APRN.CNP Service: ? Author Type: Nurse Practitioner Type: Progress Notes Filed: 07/08/2024 10:45 Note Text: Subjective Cough Associated symptoms include chest pain (with cough), chills and shortness of breath. Pertinent negatives include no ear pain, no headaches, no sore throat and no myalgias. Dari Aparicio is a 34 year old female who presents with cough, congestion, fatigue for the past 5 days. She states her chest hurts when she coughs. Her family have been sick with URI symptoms also. She feels weak, has had chills, and can't sleep due to cough. She has a history of asthma. Review of Systems Constitutional: Positive for chills and malaise/fatigue. Negative for fever. HENT: Positive for congestion. Negative for ear pain and sore throat. Respiratory: Positive for cough, sputum production and shortness of breath. Cardiovascular: Positive for chest pain (with cough). Gastrointestinal: Negative for diarrhea, nausea and vomiting. Musculoskeletal: Negative for myalgias. Neurological: Negative for headaches. BP 122/72 Pulse 89 Temp 36.7 ?C (98 ?F) (Tympanic) Resp 18 Wt 76.5 kg (168 lb 10.4 oz) LMP 05/08/2024 (Approximate) SpO2 100% BMI 31.35 kg/m? PAST MEDICAL HISTORY Diagnosis Date Anxiety Asthma [...] Mite Extract, Chantix [Varenicline], and Naproxen MEDICATIONS azithromycin (ZITHROMAX) 250 mg tablet Take 2 tablets by mouth once daily for 1 day, THEN 1 tablet once daily for 4 days. amoxicillin-clavulanate potassium (AUGMENTIN) 875-125 mg per tablet Take 1 tablet by mouth two times a day for 5 days. benzonatate (TESSALON PERLE) 100 mg capsule Take 2 capsules by mouth three times a day as needed for up to 10 days. aluminum chloride (DRYSOL) 20 % external solution APPLY TO CLEAN AREAS AT NIGHT omeprazole (PRILOSEC) 40 mg capsule Take 40 mg by mouth two times a day. albuterol HFA (PROVENTIL HFA, VENTOLIN HFA) 90 mcg/actuation inhaler Inhale 2 Puffs as instructed every 4 hours as needed for wheezing/shortness of breath. albuterol (PROVENTIL) 2.5 mg /3 mL (0.083 %) nebulizer solution Use 3 mL via nebulizer every 4 hours as needed for wheezing/shortness of breath. Use over 5-15minutes. semaglutide (OZEMPIC) 2 mg/dose (8 mg/3 mL) pen injector Inject 2 mg subcutaneously one time a week. Clindamycin Phosphate (CLEOCIN T) 1 % lotion Apply to affected area in the morning tretinoin (RETIN-A) 0.05 % cream Apply a pea size amount to the area at night as tolerated (Patient not taking: Reported on 06/06/2024) desvenlafaxine ER (PRISTIQ) 25 mg 24 hr tablet Take 25 mg by mouth once daily. (Patient not taking: Reported on 06/06/2024) FAMILY HISTORY Adopted: Yes Problem Relation Age [...] Social History Tobacco Use Smoking status: Former Current packs/day: 0.50 Average packs/day: 0.5 packs/day for 1.5 years (0.8 ttl pk-yrs) Types: Cigarettes Smokeless tobacco: Never Tobacco comments: quit 2011 Substance Use Topics Alcohol use: Yes Comment: 1 drink every 3-6 months. Drug use: No Objective Physical Exam Vitals and nursing note reviewed. Constitutional: General: She is not in acute distress. Appearance: Normal appearance. She is ill-appearing. HENT: Mouth/Throat: Pharynx: No oropharyngeal exudate or posterior oropharyngeal erythema. Cardiovascular: Rate and Rhythm: Normal rate and regular rhythm. Heart sounds: Normal heart sounds. Pulmonary: Effort: Pulmonary effort is normal. No tachypnea or respiratory distress. Breath sounds: Examination (more content not included)...[facility]02-16-2025 History of Present illness Narrative* Shital Cummins APRN.[facility] - 07/08/2024 10:28 AM EST Subjective Cough Associated symptoms include chest pain (with cough), chills and shortness of breath. Pertinent negatives include no ear pain, no headaches, no sore throat and no myalgias. Dari Aparicio is a 34 year old female who presents with cough, congestion, fatigue for the past 5 days. She states her chest hurts when she coughs. Her family have been sick with URI symptoms also. She feels weak, has had chills, and can't sleep due to cough. She has a history of asthma. Review of Systems Constitutional: Positive for chills and malaise/fatigue. Negative for fever. HENT: Positive for congestion. Negative for ear pain and sore throat. Respiratory: Positive for cough, sputum production and shortness of breath. Cardiovascular: Positive for chest pain (with cough). Gastrointestinal: Negative for diarrhea, nausea and vomiting. Musculoskeletal: Negative for myalgias. Neurological: Negative for headaches. BP 122/72 Pulse 89 Temp 36.7 C (98 F) (Tympanic) Resp 18 Wt 76.5 kg (168 lb 10.4 oz) LMP 05/08/2024 (Approximate) SpO2 100% BMI 31.35 kg/m PAST MEDICAL HISTORY Diagnosis Date Anxiety Asthma [...] Mite Extract, Chantix [Varenicline], and Naproxen MEDICATIONS azithromycin (ZITHROMAX) 250 mg tablet Take 2 tablets by mouth once daily for 1 day, THEN 1 tablet once daily for 4 days. amoxicillin-clavulanate potassium (AUGMENTIN) 875-125 mg per tablet Take 1 tablet by mouth two times a day for 5 days. benzonatate (TESSALON PERLE) 100 mg capsule Take 2 capsules by mouth three times a day as needed for up to 10 days. aluminum chloride (DRYSOL) 20 % external solution APPLY TO CLEAN AREAS AT NIGHT omeprazole (PRILOSEC) 40 mg capsule Take 40 mg by mouth two times a day. albuterol HFA (PROVENTIL HFA, VENTOLIN HFA) 90 mcg/actuation inhaler Inhale 2 Puffs as instructed every 4 hours as needed for wheezing/shortness of breath. albuterol (PROVENTIL) 2.5 mg /3 mL (0.083 %) nebulizer solution Use 3 mL via nebulizer every 4 hours as needed for wheezing/shortness of breath. Use over 5-15minutes. semaglutide (OZEMPIC) 2 mg/dose (8 mg/3 mL) pen injector Inject 2 mg subcutaneously one time a week. Clindamycin Phosphate (CLEOCIN T) 1 % lotion Apply to affected area in the morning tretinoin (RETIN-A) 0.05 % cream Apply a pea size amount to the area at night as tolerated (Patientnot taking: Reported on 06/06/2024) desvenlafaxine ER (PRISTIQ) 25 mg 24 hr tablet Take 25 mg by mouth once daily. (Patient not taking:Reported on 06/06/2024) FAMILY HISTORY Adopted: Yes Problem Relation Age [...] Social History Tobacco Use Smoking status: Former Current packs/day: 0.50 Average packs/day: 0.5 packs/day for 1.5 years (0.8 ttl pk-yrs) Types: Cigarettes Smokeless tobacco: Never Tobacco comments: quit 2011 Substance Use Topics Alcohol use: Yes Comment: 1 drink every 3-6 months. Drug use: No Objective Physical Exam Vitals and nursing note reviewed. Constitutional: General: She is not in acute distress. Appearance: Normal appearance. She is ill-appearing. HENT: Mouth/Throat: Pharynx: No oropharyngeal exudate or posterior oropharyngeal erythema. Cardiovascular: Rate and Rhythm: Normal rate and regular rhythm. Heart sounds: Normal heart sounds. Pulmonary: Effort: Pulmonary effort is normal. No tachypnea or respiratory distress. Breath sounds: Examination of the right-lower field reveals decreased breath sounds. Examination ofthe left-lower field reveals decreased breath sounds. Decreased breath sounds present. No wheezing or rales. Skin: General: Skin is warm and dry. Findings: No erythema or rash. Neurological: Mental Status: She is alert. ASSESSMENT/PLAN: 1. Lower resp. tract infection - ICD9: 519.8, ICD10: J22 - AZITHROMYCIN 250 MG TABLET - AMOXICILLIN 875 MG-POTASSIUM CLAVULANATE 125 MG TABLET - BENZONATATE 100 MG CAPSULE - Follow-up with your PCP in 3-5 days if symptoms have not improved or sooner if symptoms worsen - Discussed red flags and need for immediate medical evaluation if any occur. - Discussed supportive care treatment with fluids, rest and analgesia. - Discussed expected course of illness Shital Cummins APRN.EDEN [facility] History of Present illness Narrative* Anai Pierre MD - 06/15/2024 9:30 AM EST HPI, PHYSICAL EXAMINATION & PLAN HPI: Patient here today for follow up for non-surgical weight loss management Weight trend since last visit: gain 27 lbs over 6 m stable weight regain after stopping ozempic This patient's excess weight is causing the following co-morbid conditions at this time:Other IR Physical Examination: Blood pressure 96/59, pulse 76, height 5' 2 (1.575 m), weight 169 lb 6.4 oz (76.8 kg). General: This patient is calm and [...] Diet This patient s current diet is: 50-80% meal plan Her diet contains adequate amounts of protein, adequate amounts of healthy fats, adequate amounts of green, leafy vegetables, and adequate amounts of fruits. Her comfort foods include: none Current Activity Does not exercise Current Eating Behaviors This patients demonstrates the [...] the meal structure, composition and portion control Review meal structure, meal composition and portion control in details in order to restart the healthy lifestyle Will restart meal plan and exercise Will restart adipex Discuss side effects of adipex Good tolerance and result in the past Other IR Continue current management, continue weight loss program Stable Working with [facility] on her current symptoms [x] Protein goal of 1g protein per [...] anti-obesity medication. I spend a total of 30 minutes on the same day of the [...] was performed.Clinical documentation is updated and completed. * Kiera Hinds MA - 06/15/2024 9:30 AM EST [facility] NON-SURGICAL WEIGHT LOSS MANAGEMENT PROGRAM ROOMING NOTE: FOLLOW UP VISIT Patient: Dari Aparicio Date of : 1990 Service Date: 06/15/2024 Patient History/Assessment Summary: The patient is a pleasant 34 y.o. year old female, who stands Height: 5' 2 (157.5 cm) tall with a weight of Weight: 169 lb 6.4 oz (76.8 kg) pounds, resulting in a BMI of Body mass index is 30.98 kg/m . kg/m2. She is here for follow-up for non-surgical treatment of Over weight Patient has the following question(s): none Pre Program Weight Metrics (Epic) (Surgical Wt Loss Management- baseline) This Visit Non-Surgical Subsequent Eval Date: 06/15/24 Height: 5' 2 (157.5 cm) Weight: 169 lb 6.4 oz (76.8 kg) BMI: 30.98 Weight Change: 26.8 lbs Total Weight Change: <No Previous Non-Surg Weight on File> lbs % EBWL: <UNK>% Subsequent Body Fat %: 37.18 Body Fat % Change: 5.88 Follow Up Weight Metrics Last Three Weights Including Today's Weight: Wt Readings from Last 3 Encounters: 06/15/24 169 lb 6.4 oz (76.8 kg) 12/09/23 142 lb 9.6 oz (64.7 kg) 11/02/23 144 lb 9.6 oz (65.6 kg) Diabetes Do you currently have diabetes? [...] cholesterol? No Are you currently prescribed a medicationfor high cholesterol? (examples Lipitor/Atorvastatin, Pravastatin, Zetia, Tricor, [...] sheet comorbids) Falls Risk Assessment Patient does take medications which affect BP or mental [...] by: Kiera Hinds MA documented in this [facility]01-21-2025 Telephone encounter Note* Telephone Encounter - Marine Rossi MA - 06/12/2024 4:00 PM EST Patient phones requesting refills as follows: Requested Prescriptions Pending Prescriptions Disp Refills DRYSOL 20 % external solution [Pharmacy Med Name: Drysol External Solution 20 %] 60 mL 0 Sig: APPLY TO CLEAN AREAS AT NIGHT Please review and advise. Marine Rossi MA [facility]01-21-2025 Miscellaneous Notes* Telephone Encounter - Marine Rossi MA - 06/12/2024 4:00 PM EST Patient phones requesting refills as follows: Requested Prescriptions Pending Prescriptions Disp Refills DRYSOL 20 % external solution [Pharmacy Med Name: Drysol External Solution 20 %] 60 mL 0 Sig: APPLY TO CLEAN AREAS AT NIGHT Please review and advise. Marine Rossi MA documented [facility] this [facility]25 NoteHNO ID: [id number] Author: SANTINO AGUILERA MD Service: ? Author Type: Physician Type: Progress Notes Filed: 06/06/2024 12:06 Note Text: Gastroenterology AND Hepatology 06/06/2024 Dr. Bo Simms, [place], [place] Consultation requested by Dr. Simms for an opinion regarding epigastric pain.. My final recommendations will be communicated back to the requesting physician by way of shared Medical record or letter to requesting physician via [place] mail. SUBJECTIVE: HPI: Ms. Aparicio is a 34yoF with a PMH of exercise-induced asthma, depression, PTSD, IBS-mixed, and GERD who presents today for a second opinion about pre-cancer in her throat and gastroparesis. She has been having R-sided abdominal pain starting in March, nausea (requiring zofran q4hrs) and, if she does not take the medication, she vomits, and she has bloating causing abdominal tenderness, even with clothing and light palpation. Bloating occurs even when she does not eat but is much worse when she eats. She has 1 BM every 3-4 days. She takes miralax if she feels impacted but not daily. This prompted an extensive workup done locally in [place] which included a CT scan, GES, EGD, labs, and stool samples. She was started on ozempic for ~7 months for weight loss, HLD, and non-diabetic insulin resistance. She was initially started at the lowest dose (0.25). She stayed on this for about a month then increased dose by 0.25 every month. Her symptoms started about 4 months after being on the medication. Due to her GI symptoms, she stopped ozempic in 03/2024. Since stopping ozempic, she continues to have abdominal pain, bloating, and N/V. She was started on omeprazole 40mg BID for acid reflux but has not noticed any improvement in those symptoms or with her bloating. She has been on it for ~1 month. She was started on She used to take desvenlafaxine for depression but has been off of it since her GI issues started due to difficulty keeping pills down from N/V. Labs/stool samples: - CBC: WBC 3.3, Hb 11.8, otherwise normal. She has always had anemia she says - she has a heavy period. - CMP: normal. - CRP: normal. - TSH: normal. - Fecal calpro: 39 (normal). - Fecal elastase: >800 (normal). EGD 03/28/2024 (had recently taken ozempic): - Z-line irregular at 40cm. Biopsied. - Normal appearing stomach that did not contract very well with CO2 insufflation. - Normal duodenum. CTAP with IV and PO contrast 03/27/2024: - Bilateral nephrlithiasis. - Dominint follicle in the R ovary and slight intrapelvic fluid. - Appendectomy. - Moderate stool in the proximal colon, no SBO. 1hr solid GES 05/11/2024 (off ozempic for ~1 month at this time): normal gastric emptying (T linear fit was calculated to be 48.7min). Review Of Systems Negative except above. PAST MEDICAL HISTORY Diagnosis Date Anxiety Asthma [...] TONSILLECTOMY HX -2009 tonsils and adnoids removed Social History Tobacco Use Smoking status: Former Current packs/day: 0.50 Average packs/day: 0.5 packs/day for 1.5 years (0.8 ttl pk-yrs) Types: Cigarettes Smokeless tobacco: Never Tobacco comments: quit 2011 Substance Use Topics Alcohol use: Yes Comment: 1 drink every 3-6 months. Drug use: No albuterol (PROVENTIL) 5 mg/mL nebu Inhale 0.5 mL as instructed one time only. 1 DOSE NOW - BACK OFFICE. PLACE 0.5 ML PER DROPPER AND 2.5 ML OF NORMAL SALINE INTO RESERVOIR. albuterol HFA (PROVENTIL HFA, VENTOLIN HFA) 90 mcg/actuation inhaler Inhale 2 Puffs as instructed every 4 hours as needed for wheezing/shortness of breath. albuterol (PROVENTIL) 2.5 mg /3 mL (0.083 %) nebulizer solution Use 3 mL via nebulizer every 4 hours as needed for wheezing/shortness of breath. Use over 5-15minutes. predniSONE (DELTASONE) 10 mg tablet Take 4 tabs daily for 3 days, then 2 tabs daily for 3 days, then 1 tab daily for 3 days with food. aluminum chloride (DRYSOL) 20 % external solution Apply to clean areas at night semaglutide (OZEMPIC) 2 mg/dose (8 mg/3 mL) pen injector Inject 2 mg subcutaneously one time a week. Clindamycin Phosphate (CLEOCIN T) 1 % lotion Apply to affected area i (more content not included)...[facility]01-15-2025 History of Present illness Narrative* Santino Aguilera MD - 06/06/2024 11:07 AM EST Images from the original note were not included. Gastroenterology & Hepatology 06/06/2024 Dr. Bo Simms, [place], [place] Consultation requested by Dr. Simms for an opinion regarding epigastric pain.. My final recommendations will be communicated back to the requesting physician by way of shared Medical record or letter to requesting physician via US mail. SUBJECTIVE: HPI: Ms. Aparicio is a 34yoF with a PMH of exercise-induced asthma, depression, PTSD, IBS-mixed, and GERD who presents today for a second opinion about pre-cancer in her throat and gastroparesis. She has been having R-sided abdominal pain starting in March, nausea (requiring zofran q4hrs) and, if she does not take the medication, she vomits, and she has bloating causing abdominal tenderness, even with clothing and light palpation. Bloating occurs even when she does not eat but is much worse when she eats. She has 1 BM every 3-4 days. She takes miralax if she feels impacted but not daily. This prompted an extensive workup done locally in [place] which included a CT scan, GES, EGD, labs, and stool samples. She was started on ozempic for ~7 months for weight loss, HLD, and non-diabetic insulin resistance.She was initially started at the lowest dose (0.25). She stayed on this for about a month then increased dose by 0.25 every month. Her symptoms started about 4 months after being on the medication. Due to her GI symptoms, she stopped ozempic in 03/2024. Since stopping ozempic, she continues to haveabdominal pain, bloating, and N/V. She was started on omeprazole 40mg BID for acid reflux but has not noticed any improvement in thosesymptoms or with her bloating. She has been on it for ~1 month. She was started on She used to take desvenlafaxine for depression but has been off of it since her GI issues started due to difficulty keeping pills down from N/V. Labs/stool samples: - CBC: WBC 3.3, Hb 11.8, otherwise normal. She has always had anemia she says - she has a heavy period. - CMP: normal. - CRP: normal. - TSH: normal. - Fecal calpro: 39 (normal). - Fecal elastase: >800 (normal). EGD 03/28/2024 (had recently taken ozempic): - Z-line irregular at 40cm. Biopsied. - Normal appearing stomach that did not contract very well with CO2 insufflation. - Normal duodenum. CTAP with IV and PO contrast 03/27/2024: - Bilateral nephrlithiasis. - Dominint follicle in the R ovary and slight intrapelvic fluid. - Appendectomy. - Moderate stool in the proximal colon, no SBO. 1hr solid GES 05/11/2024 (off ozempic for ~1 month at this time): normal gastric emptying (T linearfit was calculated to be 48.7min). Review Of Systems Negative except above. PAST MEDICAL HISTORY Diagnosis Date Anxiety Asthma [...] TONSILLECTOMY HX -2009 tonsils and adnoids removed Social History Tobacco Use Smoking status: Former Current packs/day: 0.50 Average packs/day: 0.5 packs/day for 1.5 years (0.8 ttl pk-yrs) Types: Cigarettes Smokeless tobacco: Never Tobacco comments: quit 2011 Substance Use Topics Alcohol use: Yes Comment: 1 drink every 3-6 months. Drug use: No albuterol (PROVENTIL) 5 mg/mL nebu Inhale 0.5 mL as instructed one time only. 1 DOSE NOW - BACK OFFICE. PLACE 0.5 ML PER DROPPER AND 2.5 ML OF NORMAL SALINE INTO RESERVOIR. albuterol HFA (PROVENTIL HFA, VENTOLIN HFA) 90 mcg/actuation inhaler Inhale 2 Puffs as instructed every 4 hours as needed for wheezing/shortness of breath. albuterol (PROVENTIL) 2.5 mg /3 mL (0.083 %) nebulizer solution Use 3 mL via nebulizer every 4 hours as needed for wheezing/shortness of breath. Use over 5-15minutes. predniSONE (DELTASONE) 10 mg tablet Take 4 tabs daily for 3 days, then 2 tabs daily for 3 days, then 1 tab daily for 3 days with food. aluminum chloride (DRYSOL) 20 % external solution Apply to clean areas at night semaglutide (OZEMPIC) 2 mg/dose (8 mg/3 mL) pen injector Inject 2 mg subcutaneously one time a week. Clindamycin Phosphate (CLEOCIN T) 1 % lotion Apply to affected area in the morning tretinoin (RETIN-A) 0.05 % cream Apply a pea size amount to the area at night as tolerated desvenlafaxine ER (PRISTIQ) 25 mg 24 hr tablet Take 25 mg by mouth once daily. albuterol HFA (PROVENTIL HFA, VENTOLIN HFA) 90 mcg/actuation inhaler Inhale 2 Puffs as instructed every 6 hours as needed for Wheezing/Shortness of Breath. (Patient not taking: Reported on 01/11/2022) albuterol (PROVENTIL) 5 mg/mL nebu Inhale 0.5 mL as instructed one time only for 1 dose. 1 DOSE NOW- BACK OFFICE. PLACE 0.5 ML PER DROPPER AND 2.5 ML OF NORMAL SALINE INTO RESERVOIR. ALLERGIES Allergen Reactions Mite Extract Other: See Comments Chantix [Vareniclin* Other: See Comments Vomiting, diarrhea, bad dreams, restlessness, insomnia Naproxen Other: See Comments Broke out in sweats, nightmares and all did was sleep OBJECTIVE: Vital Signs: Ht 156.2 cm (5' 1.5) Wt 73 kg (161 lb) LMP 05/08/2024 (Approximate) BMI 29.93 kg/m Physical Examination: General appearance: well appearing, alert, in no acute distress, well nourished. HEENT: normocephalic, normal conjunctiva, no scleral icterus. Heart: regular rate and rhythm, no murmurs. Lungs: lungs clear to auscultation bilaterally, normal work of breathing. Abdomen: soft, non-tender, normal bowel sounds. Extremities: no edema, no deformity or joint abnormality. Skin: skin color, texture, turgor normal, no suspicious rashes or lesions. Neuro: CN II-XII grossly intact, A&Ox3. Labs/Imaging: Latest Ref Rng & Units 09/16/2016 06/24/2015 12/09/2014 CBC WBC 3.70 - 11.00 k/uL 7.56 4.92 5.15 RBC 3.90 - 5.20 m/uL 4.18 4.33 4.42 Hemoglobin 11.5 - 15.5 g/dL 12.3 12.6 13.0 Hematocrit 36.0 - 46.0 % 37.1 36.9 38.2 MCV 80.0 - 100.0 fL 88.8 85.2 86.4 MCH 26.0 - 34.0 pG 29.4 29.1 29.4 MCHC 30.5 - 36.0 g/dL 33.2 34.1 34.0 RDW-CV 11.5 - 15.0 % 12.5 12.5 12.5 Platelet Count 150 - 400 k/uL 380 338 387 MPV 9.0 - 12.7 fL 9.6 9.7 9.4 Baso% % 0.4 Abs Neut (ANC) 1.45 - 7.50 k/uL 2.15 Abs Lymph 1.00 - 4.00 k/uL 2.41 Abs [place] 0.00 - 0.86 k/uL 0.32 Abs Eosin 0.00 - 0.45 k/uL 0.02 Abs Baso 0.00 - 0.10 k/uL 0.02 Diff Type Auto Diff Latest Ref Rng & Units 09/16/2016 06/24/2015 12/09/2014 CMP Sodium 136 - 144 mmol/L 140 140 137 Potassium 3.7 - 5.1 mmol/L 3.9 4.1 4.0 Chloride 97 - 105 mmol/L 100 101 98 CO2 22 - 30 mmol/L 24 25 26 Glucose 74 - 99 mg/dL 83 84 87 BUN 7 - 21 mg/dL 10 11 10 Creatinine 0.58 - 0.96 mg/dL 0.62 0.64 0.67 EGFR-All Other Races . >60 >60 >60 EGFR- >60 >60 >60 Protein, Total 6.3 - 8.0 g/dL 7.6 6.5 7.7 Albumin 3.9 - 4.9 g/dL 4.7 4.3 4.7 Calcium 8.5 - 10.2 mg/dL 9.1 9.4 9.8 Bilirubin, Total 0.2 - 1.3 mg/dL 0.2 0.3 0.4 AST 13 - 35 U/L 13 15 21 ALT 7 - 38 U/L 13 10 15 Alkaline Phosphatase 32 - 117 U/L 59 45 61 IMPRESSION: Ms. Aparicio is a 34yoF with a PMH of exercise-induced asthma, depression, PTSD, IBS-mixed, and GERD who presents today for a second opinion about pre-cancer in her throat and gastroparesis. Regarding her pre-cancerous lesions, biopsies were taken of an irregular Z line and there was no evidence of dysplasia. Would repeat EGD in 3 years to ensure no BE as we cannot see the endoscopic images in our system well. Regarding her GI symptoms, she may have some bloating, N/V related to constipation. Will start witha bowel regimen and follow-up how she is doing with more frequent bowel movements and will repeat GES as she has been off ozempic for a longer time now. PLAN: - Psyllium husk once daily and miralax once daily. If needed, can increase miralax to desired # of BMs. - Repeat EGD with evaluation for BE in 3 years. - 4hr solid GES. Dariana Lagos MD Gastroenterology Fellow, PGY June 06, 2024 Agree with above. [facility]ino [facility]il[facility]* Diagnosis Onset Date Resolution Status Admit Date Delayed gastric emptying acute May 25, 2024 9:31am IBS (irritable bowel syndrome) acute May 25, 2024 9:31am RUQ pain acute May 25 9:31am Influenza A acute July 28 10:17am Depression with anxiety acute A pril 2024 2:44pm Chronic back pain chronic August 222024 2:44pm [facility] Work Phone: [phone]) 205-273712-13-2024 Hospital Discharge instructions Patient Education 05/04/2024 20:50:55 Back Care Tips Back Care Tips Caring for your back These are things you can do to prevent a recurrence of acute back pain and to reduce symptoms from chronic back pain: Maintain a healthy weight. If you are overweight, losing weight will help most types of back pain. Exercise is an important part of recovery from most types of back pain. The muscles behind and in front of the spine support the back. This means strengthening both the back muscles and the abdominalmuscles will provide better support for your spine. Swimming and brisk walking are good overall exercises to improve your fitness level. Practice safe lifting methods (below). Practice good posture when sitting, standing and walking. Avoid prolonged sitting. This puts more stress on the lower back than standing or walking. Wear quality shoes with sufficient arch support. Foot and ankle alignment can affect back symptoms.Women should avoid wearing high heels. Therapeutic massage can help relax the back muscles without stretching them. During the first 24 to 72 hours after an acute injury or flare-up of chronic back pain, apply an ice pack to the painful area for 20 minutes and then remove it for 20 minutes, over a period of 60 to 90 minutes, or several times a day. As a safety precaution, do not use a heating pad at bedtime. Sleeping on a heating pad can lead to skin noyola or tissue damage. You can alternate ice and heat therapies. Medicines Talk to your healthcare provider before using medicines, especially if you have other medical problems or are taking other medicines. You may use acetaminophen or ibuprofen to control pain, unless your healthcare provider prescribed other pain medicine. If you have chronic conditions like diabetes, liver or kidney disease, stomach ulcers, or gastrointestinal bleeding, or are taking blood thinners, talk with your healthcare provider before taking any medicines. Be careful if you are given prescription pain medicines, narcotics, or medicine for muscle spasm. They can cause drowsiness, affect your coordination, reflexes, and judgment. Do not drive or operate heavy machinery while taking these types of medicines. Take prescription pain medicine only as prescribed by your healthcare provider. Lumbar stretch Here is a simple stretching exercise that will help relax muscle spasm and keep your back more limber. If exercise makes your back pain worse, don t do it. Lie on your back with your knees bent and both feet on the ground. Slowly raise your left knee to your chest as you flatten your lower back against the floor. Hold for 5 seconds. Relax and repeat the exercise with your right knee. Do 10 of these exercises for each leg. Safe lifting method Don t bend over at the waist to lift an object off the floor. Instead, bend your knees and hips in a squat. Keep your back and head upright Hold the object close to your body, directly in front of you. Straighten your legs to lift the object. Lower the object to the floor in the reverse fashion. If you must slide something across the floor, push it. Posture tips Sitting Sit in chairs with straight backs or low-back support. Keep your knees lower than your hips, with your feet flat on the floor. When driving, sit up straight. Adjust the seat forward so you are not leaning toward the steering wheel. A small pillow or rolled towel behind your lower back may help if you are driving long distances. Standing When standing for long periods, shift most of your weight to one leg at a time. Alternate legs every few minutes. Sleeping The best way to sleep is on your side with your knees bent. Put a low pillow under your head to support your neck in a neutral spine position. Avoid thick pillows that bend your neck to one side. Puta pillow between your legs to further relax your lower back. If you sleep on your back, put pillowsunder your knees to support your legs in a slightly flexed position. Use a firm mattress. If your mattress sags, replace it, or use a 1/2-inch plywood board under the mattress to add support. Follow-up care Follow up with your healthcare provider, or as advised. If X-rays, a CT scan or an MRI scan were taken, they will be reviewed by a radiologist. You will benotified of any new findings that may affect your care. Call 911 Call 911 if any of the following occur: Trouble breathing Confusion Very drowsy Fainting or loss of consciousness Rapid or very slow heart rate Loss of bowel or bladder control When to seek medical advice Call your healthcare provider right away if any of the following occur: Pain becomes worse or spreads to your arms or legs Weakness or numbness in one or both arms or legs Numbness in the groin area [id number] [employer]. [address] [place] [address], [place] [address]. All rights reserved. This information is not intended as a substitute for professional medical care. Always follow yourhealthcare professional's instructions. Follow Up Care 05/04/2024 19:11:03 With:ES HATCH DO Address: [facility] [place] [address] [phone] When:2-4 days [facility] 12[facility]13-[facility]24 Note Discharge Instructions Thank you for allowing [facility] to assist you with your healthcare needs. The following is importantdischarge information regarding your hospital visit. Diagnosis from Today's Visit Back pain What to Do Next Instructions from Your Care Team No qualifying data available. Post Acute Orders No qualifying data available. You Need to Schedule the Following Appointments Follow Up with ES HATCH DO When:Within 2-4 days Where:[facility] [address] [place], [place] [id number]- [phone] Allergies Chantix naproxen Medications Please ask your primary doctor or pharmacist before taking any other medication not listed, including over the counter drugs, herbal medications, vitamins and or supplements as they may interact withyour home medications. What How Much When Why Instructions Last Dose New acetaminophen-hydrocodone ([place] 325- 5 mg oral tablet) 1 tab(s) by mouth Every 6 hours as needed for as needed for pain Back pain Duration: 3 Days Printed Prescription New cephalexin (cephalexin 500 mg oral capsule) 1 cap by mouth Every 12 hours Duration: 7 Days Printed Prescription New ondansetron (ondansetron 4 mg oral tablet, disintegrating) 1 tab(s) by mouth Every 6 hours as needed for Nausea/Vomiting Duration: 4 Days Printed Prescription Please take this list to your next doctor s visit. Bring all medications you take, including over the counter medications, herbals and other supplements with you to your doctor s visit. Patients and families are reminded to discard old lists and to update any records with all medication providers or retail pharmacies. Education Materials Back Care Tips Caring for your back These are things you can do to prevent a recurrence of acute back pain and to reduce symptoms from chronic back pain: Maintain a healthy weight. If you are overweight, losing weight will help most types of back pain. Exercise is an important part of recovery from most types of back pain. The muscles behind and in front of the spine support the back. This means strengthening both the back muscles and the abdominalmuscles will provide better support for your spine. Swimming and brisk walking are good overall exercises to improve your fitness level. Practice safe lifting methods (below). Practice good posture when sitting, standing and walking. Avoid prolonged sitting. This puts more stress on the lower back than standing or walking. Wear quality shoes with sufficient arch support. Foot and ankle alignment can affect back symptoms.Women should avoid wearing high heels. Therapeutic massage can help relax the back muscles without stretching them. During the first 24 to 72 hours after an acute injury or flare-up of chronic back pain, apply an ice pack to the painful area for 20 minutes and then remove it for 20 minutes, over a period of 60 to 90 minutes, or several times a day. As a safety precaution, do not use a heating pad at bedtime. Sleeping on a heating pad can lead to skin noyola or tissue damage. You can alternate ice and heat therapies. Medicines Talk to your healthcare provider before using medicines, especially if you have other medical problems or are taking other medicines. You may use acetaminophen or ibuprofen to control pain, unless your healthcare provider prescribed other pain medicine. If you have chronic conditions like diabetes, liver or kidney disease, stomach ulcers, or gastrointestinal bleeding, or are taking blood thinners, talk with your healthcare provider before taking any medicines. Be careful if you are given prescription pain medicines, narcotics, or medicine for muscle spasm. They can cause drowsiness, affect your coordination, reflexes, and judgment. Do not drive or operate heavy machinery while taking these types of medicines. Take prescription pain medicine only as prescribed by your healthcare provider. Lumbar stretch Here is a simple stretching exercise that will help relax muscle spasm and keep your back more limber. If exercise makes your back pain worse, don t do it. Lie on your back with your knees bent and both feet on the ground. Slowly raise your left knee to your chest as you flatten your lower back against the floor. Hold for 5 seconds. Relax and repeat the exercise with your right knee. Do 10 of these exercises for each leg. Safe lifting method Don t bend over at the waist to lift an object off the floor. Instead, bend your knees and hips in a squat. Keep your back and head upright Hold the object close to your body, directly in front of you. Straighten your legs to lift the object. Lower the object to the floor in the reverse fashion. If you must slide something across the floor, push it. Posture tips Sitting Sit in chairs with straight backs or low-back support. Keep your knees lower than your hips, with your feet flat on the floor. When driving, sit up straight. Adjust the seat forward so you are not leaning toward the steering wheel. A small pillow or rolled towel behind your lower back may help if you are driving long distances. Standing When standing for long periods, shift most of your weight to one leg at a time. Alternate legs every few minutes. Sleeping The best way to sleep is on your side with your knees bent. Put a low pillow under your head to support your neck in a neutral spine position. Avoid thick pillows that bend your neck to one side. Puta pillow between your legs to further relax your lower back. If you sleep on your back, put pillowsunder your knees to support your legs in a slightly flexed position. Use a firm mattress. If your mattress sags, replace it, or use a 1/2-inch plywood board under the mattress to add support. Follow-up care Follow up with your healthcare provider, or as advised. If X-rays, a CT scan or an MRI scan were taken, they will be reviewed by a radiologist. You will benotified of any new findings that may affect your care. Call 911 Call 911 if any of the following occur: Trouble breathing Confusion Very drowsy Fainting or loss of consciousness Rapid or very slow heart rate Loss of bowel or bladder control When to seek medical advice Call your healthcare provider right away if any of the following occur: Pain becomes worse or spreads to your arms or legs Weakness or numbness in one or both arms or legs Numbness in the groin area [phone] [employer]. [address] [place] [address]. All rights reserved. This information is not intended as a substitute for professional medical care. Always follow yourhealthcare professional's instructions. Additional Information VACCINATE! IT SAVES LIVES! Members of the community who have not yet received the COVID-19 vaccine and would like to receive it can visit one of [facility] vaccine clinics. There are many vaccine clinic locations within the [facility]. For locations and available times, please visit www.gettheshot.coronavirus.[place].gov/. It is important to note that some COVID mobile vaccine clinics are held outdoors and may be canceled in rainy or stormy conditions. To learn more about pediatric vaccinations (ages 5-11), we invite you to visit the [facility] webpage. [email or web address].[facility].org/pages/4585-Xxwcr-Inunymrecvs-Cvlratvqtu-[email or web address] stions.htmlTo learn more about the COVID-19 vaccine, we invite you to visit the CDC website for a list of frequently asked questions. https://www.cdc.gov/coronavirus/2019-ncov/vaccines/faq.html [facility] Patient Portal Access Instructions: Stay connected with your healthcare team and access your personal medical information anytime with the [facility] [employer] Patient Portal. If you would like a full copy of your medical records please contact the [facility] Medical Records Department Tuesday through Tuesday between 8a.m. and 4:30p.m. Please follow the directions below to access the portal: 1.Access the email account you provided upon registration to the [facility].2.Look for an invitation email from [facility].3.Open the email and access the invitation link: Accept Invitation to [facility]4.Fill in the required mark to create your account. Sign into [email or web address] with your username and password that you created in the above steps to stay up to date. You can then view a summary of results, a summary of your visits, and the ability to download your summaries to your computer or send the information securely to a physician. Remember that your healthcare information is confidential, so carefully consider who you will allow to register on the [facility] [facility] Patient Portal for access to your information. You can also access the [facility] Patient Portal on the [employer]. Simply click on Health Records under Music [employer] (MM)ta and then click on the [employer] logo. HOW TO SAFELY DISPOSE OF PRESCRIPTION MEDICATIONS Please use one of the following methods to safely dispose of your unused medications. 1.Use a drug disposal kit: the drug disposal pouch allows you to safely discard your old and unuseddrugs. Ask your nurse to give you one when you are discharged.2.Visit a local take-back location: Many local pharmacies and police departments have programs that collect old and unwanted prescriptiondrugs. Call your local pharmacy or go to http://[employer]/6I0Bm5r to find one close to you.3.Make use of household items: Use cat litter or old coffee grounds to dispose medications if other options arenot available. Mix your drugs with these household products, seal them in an airtight container andthrow it into the garbage. Call [facility]: [phone] to be sure your drugs can be disposed of in this way. Some medicines may require a different approach.4.Never flush your medications down the toilet. IF YOU HAVE BEEN PRESCRIBED AN OPIOIDS FOR PAIN If you have been prescribed an opioid (such as hydrocodone, oxycodone or morphine), it is critical to understand the possible side effects and risks of opioid pain medications. Even when taken as directed, opioids can have several side effects including: Tolerance, meaning you might need to take more of a medication for the same pain relief. Nausea, vomiting and/or constipation. Sleepiness, dizziness, dry mouth, confusion, depression or itching. Physical dependence, meaning you have withdrawal symptoms when a medication is stopped ? this can develop within a few days. KNOW YOUR RESPONSIBILITIES It is important to know exactly how much and how often to take the opioid pain medications you are prescribed. Never take opioids in higher amounts or more often than prescribed. Do not combine opioids with alcohol or other drugs that cause drowsiness, such as benzodiazepines, also known as benzos,including diazepam and alprazolam, muscle relaxants or sleep aids. Never sell or share prescriptionopioids. This is illegal. Store opioids in a secure place and out of reach of others (including children, family, friends and visitors). The last page(s) of this document has been signed and retained as a CHART COPY Signatures Patient Education Materials Back Care Tips Medication Leaflets My discharge plan and instructions have been reviewed and explained to me and IMARKUS JESSICA understand my current condition and have read and understand these discharge instructions. I have received a written copy of the plan/instructions. If I have questions, I am aware that I should contact my d octor. 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 Multiplanar reformatted images are provided for review. Automated exposure control, iterative reconstruction, and/or weight based adjustment of the mA/kV was utilized to reduce the radiation dose to as low as reasonably achievable. COMPARISON: None available HISTORY: ORDERING SYSTEM PROVIDED HISTORY: Reason for Exam: states lower back pain that she thinks that it may be from her kidney stones that she was dx w a month ago at [facility] pain FINDINGS: The size, density, and morphology of the liver, spleen, adrenals, kidneys, pancreas and unopacified loops of bowel are unremarkable. Nonobstructive bilateral nephrolithiasis. The opacified aorta demonstrates normal size and morphology without aneurysmal dilation or dissection. There are no enlarged lymph nodes by pathologic size criteria. There is no free fluid within the pelvis. The bladder and pelvic organs have an unremarkable CT appearance. The osseous structures are without gross lytic or sclerotic lesion. The lung bases are clear. IMPRESSION: Nonobstructive bilateral nephrolithiasis. Interpreted by: Lobito Alejandro MD Preliminary Report By: Lobito Alejandro MD Electronically signed By Lobito Alejandro MD Dictated Date: 05/04/2024 8:27:35 PM Prelim Date: 05/04/2024 8:37:31 PM Sign Date: 05/04/2024 8:37:31 PM Ordering Provider: [facility]11-08-2024 Telephone encounter Note* Telephone Encounter - Angelic Vera LPN - 03/30/2024 12:18 PM EST Pt notified that results have been received and NK will have discussion about them on 04-06 [id number] Miscellaneous Notes* Telephone Encounter - Angelic Vera LPN - 03/30/2024 12:18 PM EST Pt notified that results have been received and NK will have discussion about them on 04-06 * Telephone Encounter - Anai Pierre MD - 03/30/2024 11:36 AM EST Please let the pt know We have her CT result/EGD and we will discuss ozempic during her upcoming yaya on 04/06. Thank you * Telephone Encounter - Angelic Vera LPN - 03/30/2024 10:23 AM EST Received reports from [facility]. Scanned in media mgr. Please advise. * Telephone Encounter - Angelic Vera LPN - 03/30/2024 8:07 AM EST LVM at [facility] Medical records. Requesting recent CT scan with contrast and EGD for review. Left phone and fax number. * Telephone Encounter - Angelic Vera LPN - 03/29/2024 3:39 PM EST Spoke with pt. Pt states that she wants to share procedures done at [facility] EGD and CT scan with contrast. Pt states her stomach is enlarged and the size of her liver. Doctor believes it might be a side effect from Ozempic. Pt also had irregular stomach biopsy. Will contact [facility] for records. Explained to pt more efficient way to reach our office is mychart. Pt states it was too much to explain. Pt will be off work all day tomorrow. 03-30-24 * Telephone Encounter - Colleen Hennessy - 03/29/2024 3:32 PM EST PATIENT CALLED SAID SHE NEEDED TO SPEAK TO DR PIERRE'S OFFICE WITH QUESTIONS ABOUT MEDICATIONS / PATIENT DID NOT WANT TO COMMUNICATE THROUGH MYCHART documented in this encounterSUniversity Hospitals TriPoint Medical [id number] Telephone encounter Note* Telephone Encounter - Anai Pierre MD - 03/30/2024 11:36 AM EST Please let the pt know We have her CT result/EGD and we will discuss ozempic during her upcoming yaya on 04/06. Thank you [facility] [id number] Note* Addendum Note - Opal Thomas LPN - 03/30/2024 10:28 AM ESTAddended by: OPAL THOMAS on: 03/30/2024 10:28 AM Modules accepted: Orders [facility]11-08-2024 Miscellaneous Notes* Addendum Note - Opal Thomas LPN - 03/30/2024 10:28 AM ESTAddended by: OPAL THOMAS on: 03/30/2024 10:28 AM Modules accepted: Orders documented in this encounterSouth[facility] Center11-[facility]-2024 Telephone encounter Note * Telephone Encounter - Angelic Vera LPN - 03/30/2024 10:23 AM EST Received reports from [facility]. Scanned in media mgr. Please advise. [place] [id number] Instructions* Patient Instructions* Dari White APRN.CNP - 03/30/2024 9:43 AM EST SINUSITIS: You have sinusitis, an infection of the sinus cavities around the nose. This infection usually follows a respiratory illness; it can also be related to allergies, changes in atmospheric pressure (flying, diving), or anything that blocks nasal drainage. Symptoms include: headache, facial pain, a thick nasal discharge, congestion, and cough. The treatment includes antibiotic therapy, increasing oral fluids, and pain medication if needed. Nose spray decongestants (Afrin, Champ-Synephrine) and oral decongestants may be needed to reduce congestion and drainage. Rarely the sinus must be irrigated to remove the infected material. Sinusitis can lead to serious complications by spreading to other areas such as the eye or brain. Please call your doctor or return here right away if you have any of the following more serious symptoms: Unusual swelling around the eye or trouble seeing. Increasing pain, severe headache, or toothache. Nausea, vomiting, or unusual drowsiness. documented in this encounterSouth[facility] Center11-08-2024 History of Present illness Narrative* Scott Crawford RT(R) - 03/30/2024 9:20 AM EST Radiology Service Progress Note PATIENT NAME: Dari Aparicio DATE OF SERVICE: March 30, 2024 TIME: 9:12 AM PATIENT IDENTITY VERIFICATION COMPLETED USING TWO (2) IDENTIFIERS: Name and Date of confirmedby patient verbally. FALL SCREENING: Has the patient had 2 falls in the last year or 1 fall with injury or currently using an Ambulatory Assistive Device (Walker, Cane, Wheelchair, Crutches, etc.)? No PATIENT GENDER DATA: Female. status: : No status: NO. PATIENT RELEVANT IMPLANT DATA REVIEWED: Not Applicable PATIENT PRESENTS WITH AN IMPLANTABLE OR ATTACHED SALES EXECUTIVE: No RADIOLOGY DEPARTMENT: General X-ray: Exam(s) Completed: Chest X-Ray PERIPHERAL IV DATA: Not applicable SIGNED BY: RT Ritesh(Stella) March 30, 2024 9:12 AM documented in this encounterSouthview Medical Center11-08-2024 NoteHNO ID: [id number] Author: SCOTT CRAWFORD RT(Stella) Service: Radiology Author Type: Technologist Type: Progress Notes Filed: 03/30/2024 09:29 Note Text: Radiology Service Progress Note PATIENT NAME: Dari Aparicio DATE OF SERVICE: March 30, 2024 TIME: 9:12 AM PATIENT IDENTITY VERIFICATION COMPLETED USING TWO (2) IDENTIFIERS: Name and Date of confirmed by patient verbally. FALL SCREENING: Has the patient had 2 falls in the last year or 1 fall with injury or currently using an Ambulatory Assistive Device (Walker, Cane, Wheelchair, Crutches, etc.)? No PATIENT GENDER DATA: Female. status: : No status: NO. PATIENT RELEVANT IMPLANT DATA REVIEWED: Not Applicable PATIENT PRESENTS WITH AN IMPLANTABLE OR ATTACHED SALES EXECUTIVE: No RADIOLOGY DEPARTMENT: General X-ray: Exam(s) Completed: Chest X-Ray PERIPHERAL IV DATA: Not applicable SIGNED BY: RT Ritesh(Stella) March 30, 2024 9:12 [facility]11-08-2024 NoteHNO ID: [id number] Author: DARI WHITE APRN.HAND CLERICAL VERIFIER Service: ? Author Type: Nurse Practitioner Type: Progress Notes Filed: 03/30/2024 09:48 Note Text: This note was created using NoteWriter. Subjective Dari Aparicio is a 33 year old female. 33 year old female with PMH ashtma, anxiety and depression presents for illness. Acute onset one week ago + cough +productive +sinus pressure +nasal congestion +rhinorrhea ' thick and green Cough keeping up at night Denies tobacco usage Denies using homeopathic or OTC I think it is a sinus infection and my mom thinks it is pneumonia States she does not have a current albuterol inhaler despite her diagnosis of asthma. The history is provided by the patient. No professor of languages was used. Cough This is a new problem. The current episode started more than 1 week ago. The problem occurs constantly. The problem has been gradually worsening. Cough characteristics: productive and non productive. There has been no fever. Associated symptoms include ear congestion, headaches and rhinorrhea. Pertinent negatives include no chest pain, no chills, no sweats, no weight loss, no ear pain, no sore throat, no myalgias, no shortness of breath, no wheezing and no eye redness. She has tried nothing for the symptoms. The treatment provided no relief. She is not a smoker. Her past medical history is significant for asthma. Her past medical history does not include bronchitis, pneumonia, bronchiectasis, COPD or emphysema. PAST MEDICAL HISTORY Diagnosis Date Anxiety Asthma [...] Mite Extract, Chantix [Varenicline], and Naproxen MEDICATIONS aluminum chloride (DRYSOL) 20 % external solution Apply to clean areas at night semaglutide (OZEMPIC) 2 mg/dose (8 mg/3 mL) pen injector Inject 2 mg subcutaneously one time a week. Clindamycin Phosphate (CLEOCIN T) 1 % lotion Apply to affected area in the morning tretinoin (RETIN-A) 0.05 % cream Apply a pea size amount to the area at night as tolerated desvenlafaxine ER (PRISTIQ) 25 mg 24 hr tablet Take 25 mg by mouth once daily. spironolactone (ALDACTONE) 50 mg tablet Take one pill twice daily (Patient not taking: Reported on 03/30/2024) spironolactone (ALDACTONE) 50 mg tablet Take 1 tablet by mouth once daily. (Patient not taking: Reported on 03/30/2024) ARIPiprazole (ABILIFY) 5 mg tablet Take 5 mg by mouth. (Patient not taking: Reported on 06/14/2023) phentermine HCl (ADIPEX-P ORAL) Take by mouth. (Patient not taking: Reported on 06/14/2023) Owxwqramhzexk-Lm-Agtr-Minerals (MULTIPLE VITAMIN, WOMENS) tab Take 1 tablet [...] Social History Tobacco Use Smoking status: Former Current packs (more content not included)...[facility]11-08-2024 History of Present illness Narrative* Dari White APRN.[facility] - 03/30/2024 8:56 AM EST This note was created using NoteWriter. Subjective Dari N Markus is a 33 year old female. 33 year old female with PMH ashtma, anxiety and depression presents for illness. Acute onset one week ago + cough +productive +sinus pressure +nasal congestion +rhinorrhea ' thick and green Cough keeping up at night Denies tobacco usage Denies using homeopathic or OTC I think it is a sinus infection and my mom thinks it is pneumonia States she does not have a current albuterol inhaler despite her diagnosis of asthma. The history is provided by the patient. No professor of languages was used. Cough This is a new problem. The current episode started more than 1 week ago. The problem occurs constantly. The problem has been gradually worsening. Cough characteristics: productive and non productive.There has been no fever. Associated symptoms include ear congestion, headaches and rhinorrhea. Pertinent negatives include no chest pain, no chills, no sweats, no weight loss, no ear pain, no sore throat, no myalgias, no shortness of breath, no wheezing and no eye redness. She has tried nothing forthe symptoms. The treatment provided no relief. She is not a smoker. Her past medical history is significant for asthma. Her past medical history does not include bronchitis, pneumonia, bronchiectasis , COPD or emphysema. PAST MEDICAL HISTORY Diagnosis Date Anxiety Asthma [...] Mite Extract, Chantix [Varenicline], and Naproxen MEDICATIONS aluminum chloride (DRYSOL) 20 % external solution Apply to clean areas at night semaglutide (OZEMPIC) 2 mg/dose (8 mg/3 mL) pen injector Inject 2 mg subcutaneously one time a week. Clindamycin Phosphate (CLEOCIN T) 1 % lotion Apply to affected area in the morning tretinoin (RETIN-A) 0.05 % cream Apply a pea size amount to the area at night as tolerated desvenlafaxine ER (PRISTIQ) 25 mg 24 hr tablet Take 25 mg by mouth once daily. spironolactone (ALDACTONE) 50 mg tablet Take one pill twice daily (Patient not taking: Reported on 03/30/2024) spironolactone (ALDACTONE) 50 mg tablet Take 1 tablet by mouth once daily. (Patient not taking: Reported on 03/30/2024) ARIPiprazole (ABILIFY) 5 mg tablet Take 5 mg by mouth. (Patient not taking: Reported on 06/14/2023) phentermine HCl (ADIPEX-P ORAL) Take by mouth. (Patient not taking: Reported on 06/14/2023) Hguevmsyextxy-Wd-Coif-Minerals (MULTIPLE VITAMIN, WOMENS) tab Take 1 tablet [...] Social History Tobacco Use Smoking status: Former Current packs/day: 0.50 Average packs/day: 0.5 packs/day for 1.5 years (0.8 ttl pk-yrs) Types: Cigarettes Smokeless tobacco: Never Tobacco comments: quit 2011 Substance Use Topics Alcohol use: Yes Comment: 1 drink every 3-6 months. Drug use: No Review of Systems Constitutional: Positive for fatigue. Negative for chills, fever and weight loss. HENT: Positive for congestion, rhinorrhea, sinus pressure and sinus pain. Negative for ear pain andsore throat. Eyes: Negative for discharge, redness and itching. Respiratory: Positive for cough and chest tightness. Negative for shortness of breath and wheezing. Cardiovascular: Negative for chest pain. Gastrointestinal: Negative for abdominal pain, diarrhea, nausea and vomiting. Musculoskeletal: Negative for back pain and myalgias. Skin: Negative for color change, pallor, rash and wound. Allergic/Immunologic: Negative for environmental allergies, food allergies and immunocompromised state. Neurological: Positive for headaches. Negative for dizziness and facial asymmetry. Hematological: Negative for adenopathy. Does not bruise/bleed easily. Psychiatric/Behavioral: Negative for agitation and behavioral problems. Objective BP 109/76 Pulse 116 Temp 36.7 C (98.1 F) (Temporal) Resp 16 Wt 68.5 kg (151 lb 0.2 oz) LMP 08/12/2022 (Exact Date) SpO2 98% BMI 28.07 kg/m Physical Exam Vitals and nursing note reviewed. Constitutional: General: She is not in acute distress. Appearance: Normal appearance. She is normal weight. She is not ill-appearing, toxic-appearing or diaphoretic. HENT: Head: Normocephalic and atraumatic. Comments: +frontal sinus pressure + maxillary sinus pressure Right Ear: Ear canal and external ear normal. Left Ear: Ear canal and external ear normal. Nose: Congestion present. No rhinorrhea. Mouth/Throat: Mouth: Mucous membranes are moist. Pharynx: Posterior oropharyngeal erythema present. No oropharyngeal exudate. Eyes: General: Right eye: No discharge. Left [...] No stridor. No wheezing, rhonchi or rales. Comments: Harsh cough +reduced air flow Chest: Chest wall: No tenderness. Abdominal: General: [...] Left lower leg: No edema. Lymphadenopathy: Cervical: Cervical adenopathy present. Skin: General: Skin is warm and dry. Coloration: Skin is not jaundiced or pale. [...] normal. Assessment and Plan ASSESSMENT/PLAN: 1. Acute cough - ICD9: 786.2, ICD10: R05.1 (primary diagnosis) X one week Worsening +exposure to pneumonia History of asthma - XR CHEST 2V FRONTAL/LAT-negative - IPRATROPIUM 0.5 MG-ALBUTEROL 3 MG (2.5 MG BASE)/3 ML NEBULIZATION SOLN- breathing treatment administered here in clinic. Endorses improvement of symptoms. Refills provided 2. Exacerbation of asthma, unspecified asthma severity, unspecified whether persistent - ICD9: 493.92, ICD10: J45.901 - Cough variant asthma - Factors affecting control of asthma include upper respiratory infection, weather change - Continue current medications - In office inhalation treatment Duoneb - Avoidance of triggers recommended - Asthma Action Plan reviewed - Follow up in 2 day, sooner should any other issues arise. - ALBUTEROL SULFATE CONCENTRATE 5 MG/ML(0.5 %) SOLUTION FOR NEBULIZATION 3. Rhinosinusitis - ICD9: 473.9, ICD10: J32.9 - Will begin treatment with as per antibiotic as written, see orders - The patient should also be given OTC cough and cold meds as needed and warm salt water gargles, throat lozenges and/or OTC throat spray as needed for the first 5-7 days of treatment. - Supportive care with plenty of fluids, rest, and analgesia prn. - Follow up in 3-5 days if symptoms persist or worsen. Dari White APRN.HAND CLERICAL VERIFIER documented in this encounterSouthview Medical Center11-08-2024 Telephone encounter Note * Telephone Encounter - Angelic Vera LPN - 03/30/2024 8:07 AM EST LVM at [facility] Medical records. Requesting recent CT scan with contrast and EGD for review. Left phone and fax number. [facility] [id number] NoteSpoke with pt. Pt states that she wants to share procedures done at [facility] EGD and CT scan with contrast. Pt states her stomach is enlarged and the size of her liver. Doctor believes it might be a side effect from Ozempic. Pt also had irregular stomach biopsy. Will contact [facility] for records. Explained to pt more efficient way to reach our office is [employer]. Pt states it was too much to explain. Pt will be off work all day tomorrow. [facility]44[facility] Telephone encounter Note* Telephone Encounter - Angelic Vera LPN - 03/29/2024 3:39 PM EST Spoke with pt. Pt states that she wants to share procedures done at [facility] EGD and CT scan with contrast. Pt states her stomach is enlarged and the size of her liver. Doctor believes it might be a side effect from Ozempic. Pt also had irregular stomach biopsy. Will contact [facility] for records. Explained to pt more efficient way to reach our office is [employer]. Pt states it was too much to explain. Pt will be off work all day tomorrow. 03-30-24 [facility] [id number] Telephone encounter Note* Telephone Encounter - Colleen Hennessy - 03/29/2024 3:32 PM EST PATIENT CALLED SAID SHE NEEDED TO SPEAK TO DR PIERRE'S OFFICE WITH QUESTIONS ABOUT MEDICATIONS / PATIENT DID NOT WANT TO COMMUNICATE THROUGH adFreeq [employer] [facility] [id number] [facility] Medical Records Department [address] [place] [address] History Physical Exam 03/28/24 0642 MR#: [id number] Acct: [id number] Name: MARKUSDARI Rep #: [id number] : 1990 33 From: Bo Simms DO PCP: PERLITA Bruno Status:[facility] Location: [place] [address] History and Physical Date of Admission: 03/28/24 [facility] [address] [place] [address] OFFICE VISIT Date of Service: 03/09/24 MR#: [id number] Acct: [id number] Name: DARI APARICIO Rep #: [id number] : 1990 Provider: PERLITA Anderson Age/Sex: 33/F [place] [facility] [place]: Signed Intake Vital Signs 01/30/2415:05 Height 5 ft 1 in Weight: 139 lb BMI 26.2 BP 118/78 Blood Pressure Location Lt brachial Position Sitting Respiration 16 Pulse 100 Pulse Source Monitor Temp 98.4 F Temp Source Temporal Pulse Oximetry (%) 97 Oxygen Delivery Method room air Intake Visit Reasons: Acid reflux Chief Complaint: severe burning in stomach and esophagus daily 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 Had a colonoscopy before a long time ago, results were IBS. Struggles with constipation miralax helps. Doesn't matter what she eats or drinks, her stomach and esophagus burn daily. Has BM a few times a week, stools are hard. Takes miralax every other day because taking it daily caused loose stools. No blood in stool that she is aware of. [facility] Medical History (Updated 03/09/24 @ 13:03 by Vidhya Anderson NP-C) IBS (irritable bowel syndrome) Maxillary sinusitis Effusion, left knee Diabetes PTSD (post-traumatic stress disorder) Low iron Back pain Migraine headache History of IBS Sleep apnea Asthma Shortness of breath on exertion Leg cramps Hypertension Adopted ASCUS with positive high risk HPV Pelvic pain Hypersomnia Rectal bleeding Anxiety and depression Spontaneous HPV test positive Acute appendicitis GERD (gastroesophageal reflux disease) Irregular periods Obesity Scoliosis Chronic back pain Preeclampsia Surgical History Status post tubal ligation Status post bilateral salpingectomy History of History of hip surgery H/O adenoidectomy delivery delivered S/P laparoscopic appendectomy ( 05/06/18) S/P right knee arthroscopy History of tonsillectomy H/O knee surgery Hx of breast reduction, elective Family History Mother DepressionAunt Breast cancer Multiple sclerosisGrandmother DiabetesUncle Hyperlipemia Menieres disease DepressionGrandfather Heart disease Myocardial infarction CVA (cerebral vascular accident)Sister Crohn's disease half sisterOther Hypertension Social History household members: family and children housing: house current occupational status: unemployed Smoking Status: Former smoker how long ago did patient quit smokin alcohol intake: current alcohol intake frequency: holidays/special occasions only substance use type: does not use caffeine: No what type of physical activity do you participate in: none seatbelt use: always do you feel safe at home: Yes additional social history: Single HPI HPI Chief Complaint: severe burning in stomach and esophagus daily Details: DARI APARICIO, is a 33 F who presents to the office today for establishment with [facility] for complaints of IBS, nausea and severe heartburn. She reports having had gestational DM in 2019, is on semaglutide for weight loss, and is being treated currently for latent TB with daily isoniazid. She denies difficulty chewing and swallowing, cough, reflux, abdominal pain, diarrhea, hematochezia and melena. She reports nausea, vomiting, heartburn not related to any ingestion, sight or smell of food. She states the symptoms have become more severe after starting the medicine to treat her TB. Sh eis forced to take isoniazid a HS to avoid being nauseous at work. She reports taking Miralax for constipation every other day for firm BMs, taking Miralax daily causes liquid stools. She states she was told that she had IBS years (more content not included)...[facility]07-19-2024 History of Present illness Narrative* Angelic Vera, JOSHUA - 12/09/2023 11:30 AM EDT [facility] NON-SURGICAL WEIGHT LOSS MANAGEMENT [...] Weight Metrics ([facility]) Date of Initial Consultation:@FLOWLAST(8109)@ Initial Weight: @FLOWLAST([id number])@ Initial BMI: @FLOWLAST([id number])@ [place] Body Weight: @FLOWLAST([id number])@ Excess Body Weight: @FLOWLAST([id number])@ Body Fat Percentage: Failed to redirect to [...] cholesterol? No Are you currently prescribed a medicationfor high cholesterol? (examples Lipitor/Atorvastatin, Pravastatin, Zetia, Tricor, [...] home O2 Completed by: Angelic Vera LPN * Anai Pierre MD - 12/09/2023 11:30 AM EDT HPI, PHYSICAL EXAMINATION & PLAN HPI: Patient [...] is updated and completed. documented in this encounterSUniversity Hospitals TriPoint Medical [id number] Telephone encounter Note* Telephone Encounter - Angelic Vera LPN - 11/30/2023 2:16 PM EDT Msg sent to pt that she will need to bring CT results to next OV. [facility] [id number] Miscellaneous Notes* Telephone Encounter - Angelic Vera LPN - 11/30/2023 2:16 PM EDT Msg sent to pt that she will need to bring CT results to next OV. * Telephone Encounter - Anai Pierre MD - 11/30/2023 1:45 PM EDT Please request CT result. Please let the pt know I need to have the results of CT before I can prescribe ozempic. Thank you. * Telephone Encounter - Angelic Vera LPN - 11/30/2023 9:18 AM EDT Pt sent msg this morning that she was seen in ER and had ABD CT scan that showed constipation and now using Miralax. Pt states he is unable to come to appt 12-08 due to new employment. Staff made an appt for 12-01. 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 before een in office. Pt also stated in her note need for refill of Ozempic. Do you need to see pt for refill d/t CT scan result? Please advise. Thanks! * Telephone Encounter - Chris Ricks - 11/30/2023 9:09 AM EDT I called this patient to inform them due to the positive TB test it is in [facility] policy for the patient to have the chest x ray to verify it is not active before proceeding with office visits. I informed the patient to call us back to reschedule once xray is complete. I informed the Medical staff about the medication refill and informed the patient about them speaking to Dr. Pierre about sending in the prescription electronically. documented in this [facility]07-10-2024 Telephone encounter Note* Telephone Encounter - Anai Pierre MD - 11/30/2023 1:45 PM EDT Please request CT result. Please let the pt know I need to have the results of CT before I can prescribe ozempic. Thank you. [facility] [id number] Telephone encounter Note* Telephone Encounter - Angelic Vera LPN - 11/30/2023 9:18 AM EDT Pt sent msg this morning that she was seen in ER and had ABD CT scan that showed constipation and now using Miralax. Pt states he is unable to come to appt 12-08 due to new employment. Staff made an appt for 12-01. 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 [facility] policy states she needs to have CXR before een in office. Pt also stated in her note need for refill of Ozempic. Do you need to see pt for refill d/t CT scan result? Please advise. Thanks! [place] [id number] Telephone encounter Note* Telephone Encounter - Chris Ricks - 11/30/2023 9:09 AM EDT I called this patient to inform them due to the positive TB test it is in [facility] policy for the patient to have the chest x ray to verify it is not active before proceeding with office visits. I informed the patient to call us back to reschedule once xray is complete. I informed the Medical staff about the medication refill and informed the patient about them speaking to Dr. Pierre about sending in the prescription electronically. [facility] [id number] Telephone encounter Note* Telephone Encounter - Anai Pierre MD - 11/23/2023 3:49 PM EDT 4 attempts to reach the pt via phone. The pt is not available for the conversation. Voice mail is the only option. [place] [id number] Miscellaneous Notes* Telephone Encounter - Anai Pierre MD - 11/23/2023 3:49 PM EDT 4 attempts to reach the pt via phone. The pt is not available for the conversation. Voice mail is the only option. documented in this [facility]06-12-2024 History of Present illness Narrative* Anai Pierre MD - 11/02/2023 8:40 AM EDT HPI, PHYSICAL EXAMINATION & PLAN HPI: Patient [...] was performed.Clinical documentation is updated and completed. * Kiera Hinds MA - 11/02/2023 8:40 AM EDT [facility] NON-SURGICAL WEIGHT LOSS MANAGEMENT PROGRAM ROOMING [...] Path) Date of Initial Consultation:@FLOWLAST(8961)@ Initial Weight: @FLOWLAST([id number])@ Initial BMI: @FLOWLAST([id number])@ [place] Body Weight: @FLOWLAST([id number])@ Excess Body Weight: @FLOWLAST([id number])@ Body Fat Percentage: Failed to redirect to [...] cholesterol? No Are you currently prescribed a medicationfor high cholesterol? (examples Lipitor/Atorvastatin, Pravastatin, Zetia, Tricor, [...] by: Kiera Hinds MA documented in this [facility]03-19-2024 History of Present illness Narrative* Arcadio Nguyễn MD - 08/09/2023 1:16 PM EDT [facility] [address] [facility] [place] [address] [facility] [address] Dept: [phone] Arcadio Nguyễn MD Dari Aparicio 33 y.o. female Patient presents with a [...] antibiotic courses, 10 days course initially on Z-mikel,then two additional courses, and most recently Clindamycin, [...] to 6 hours if needed for 5 days,Disp: , Rfl: clindamycin (CLEOCIN T) 1 % [...] (800 mg total) by mouth every 8 (eight)hours as needed ., Disp: , Rfl: ondansetron (ZOFRAN-ODT) 4 MG disintegrating tablet, Dissolve 1 (one) tablet (4 mg total) on top oftongue every 4 (four) hours as needed ., [...] tenderness of submandibular glands, no masses of subma ndibular glands, clear salivary flow from Harford's ducts, no stones of Harford's ducts Temporomandibular Joint: no crepitus with motion, [...] signature was used to authenticate this note. * Anai Pena MA - 08/09/2023 1:06 PM EDT Review of Systems Constitutional: Negative. HENT: Positive for sinus pressure and sinus pain. Eyes: Negative. Respiratory: Negative. Cardiovascular: Negative. Gastrointestinal: Negative. Endocrine: Negative. Genitourinary: Negative. Musculoskeletal: Negative. Skin: Negative. Allergic/Immunologic: Positive for environmental allergies. Neurological: Positive for headaches. Hematological: Negative. Psychiatric/Behavioral: Negative. documented in this [id number] History of Present illness Narrative* Kiera Hinds MA - 07/29/2023 11:40 AM EST [facility] NON-SURGICAL WEIGHT LOSS MANAGEMENT [...] BMI of Body mass index is 25.39 kg/m. kg/m2. She is here for follow-up for non-surgical treatment of Over weight Patient has the following question(s): none Pre Program Weight Metrics (CARE Path) Date of Initial Consultation:@FLOWLAST(8961)@ Initial Weight: @FLOWLAST([id number])@ Initial BMI: @FLOWLAST([id number])@ [place] Body Weight: @FLOWLAST([id number])@ Excess Body Weight: @FLOWLAST([id number])@ Body Fat Percentage: Failed to redirect to the Timeline version of the Newswired SmartLink. Subsequent Body Fat Percentage: Failed to redirect to the Timeline version of the Newswired SmartLink. Pre Program Weight Metrics (Epic) (Surgical [...] cholesterol? No Are you currently prescribed a medicationfor high cholesterol? (examples Lipitor/Atorvastatin, Pravastatin, Zetia, Tricor, [...] home O2 Completed by: Kiera Hinds MA * Ania Pierre MD - 07/29/2023 11:40 AM EST HPI, PHYSICAL EXAMINATION & PLAN HPI: Patient [...] is updated and completed. documented in this [facility]03-01-2024 Miscellaneous Notes* Telephone Encounter - ALEA Carson Evanthia - 07/22/2023 12:36 PM EST Called in Drysol and Spironolactone from today's visit to the [facility] pharmacy in [place]. documented in this [facility]South[facility] Center03-01-2024 NoteHNO ID: [id number] Author: LORY DEL ROSARIO, DO Service: ? Author Type: Physician Type: [...] is seen and examined by Dr. Del Rosario and the following reflects his/her service. Scribed by Mally Carson CMA. I agree with the Chief Complaint, ROS, and Past Histories independently gathered by the clinical support merchandiser and the remaining scribed note accurately describes my personal service to the patient. Lory Del Rosario, [facility]03-01-2024 History of Present illness Narrative* Lory Del Rosario, DO - 07/22/2023 11:27 AM EST Established Patient Visit Last Visit Date: 06/14/2023 [...] with Clindamycin and Tretinoin but educated on howto use Tretinoin 0.05%: apply a pea size [...] is seen and examined by Dr. Del Rosario and the following reflects his/her service. Scribed by Mally Carson CMA. I agree with the Chief Complaint, ROS, and Past Histories independently gathered by the clinical support merchandiser and the remaining scribed note accurately describes my personal service to the patient. Lory Del Rosario DO documented in this encounterSouthview [facility] Center01-12-2024 History of Present illness Narrative* Anai Pierre MD - 06/03/2023 11:40 AM EST HPI, PHYSICAL EXAMINATION & PLAN HPI: Patient [...] was performed.Clinical documentation is updated and completed. * Kiera Hinds MA - 06/03/2023 11:40 AM EST [facility] NON-SURGICAL WEIGHT LOSS MANAGEMENT [...] Path) Date of Initial Consultation:@FLOWLAST(8961)@ Initial Weight: @FLOWLAST([id number])@ Initial BMI: @FLOWLAST([id number])@ [place] Body Weight: @FLOWLAST([id number])@ Excess Body Weight: @FLOWLAST([id number])@ Body Fat Percentage: No flowsheet data found. [...] cholesterol? No Are you currently prescribed a medicationfor high cholesterol? (examples Lipitor/Atorvastatin, Pravastatin, Zetia, Tricor, [...] by: Kiera Hinds MA documented in this [facility]01-10-2024 NotePap Smear Specimen AdequacyJanuary 2023 11:59pmComment.Satisfactory for evaluation. No endocervical component is identified.[facility] INTERFACED A#[id number] on above:Satisfactory for evaluation. No endocervical component is identified.04-29-2023 History of Present illness Narrative* Anai Pierre MD - 04/29/2023 2:00 PM EST HPI, PHYSICAL EXAMINATION & PLAN HPI: Patient [...] was performed.Clinical documentation is updated and completed. * Angelic Vera LPN - 04/29/2023 2:00 PM EST [facility] NON-SURGICAL WEIGHT LOSS MANAGEMENT [...] Path) Date of Initial Consultation:@FLOWLAST(8961)@ Initial Weight: @FLOWLAST([id number])@ Initial BMI: @FLOWLAST([id number])@ [place] Body Weight: @FLOWLAST([id number])@ Excess Body Weight: @FLOWLAST([id number])@ Body Fat Percentage: No flowsheet data found. [...] cholesterol? No Are you currently prescribed a medicationfor high cholesterol? (examples Lipitor/Atorvastatin, Pravastatin, Zetia, Tricor, [...] by: Angelic Vera LPN documented in this [facility]11-03-2023 History of Present illness Narrative* Angelic Vera LPN - 03/25/2023 11:10 AM EDT [facility] NON-SURGICAL WEIGHT LOSS MANAGEMENT [...] Weight Metrics (CARE Path) Date of Initial Consultation:@FLOWLAST(8986)@ Initial Weight: @FLOWLAST([id number])@ Initial BMI: @FLOWLAST([id number])@ [place] Body Weight: @FLOWLAST([id number])@ Excess Body Weight: @FLOWLAST([id number])@ Body Fat Percentage: No flowsheet data found. Subsequent Body Fat Percentage: No flowsheet data found. Pre Program [facility] ([facility]) (Surgical Wt Loss Management- baseline) This Visit [...] home O2 Completed by: Angelic Vera LPN * Anai Pierre MD - 03/25/2023 11:10 AM EDT HPI, PHYSICAL EXAMINATION & PLAN HPI: Patient [...] is updated and completed. documented in this [facility]10-06-2023 History of Present illness Narrative* Angelic Vera LPN - 02/25/2023 2:10 PM EDT [facility] NON-SURGICAL WEIGHT LOSS MANAGEMENT PROGRAM ROOMING [...] Weight Metrics (CARE Path) Date of Initial Consultation:@FLOWLAST(8055)@ Initial Weight: @FLOWLAST([id number])@ Initial BMI: @FLOWLAST([id number])@ [place] Body Weight: @FLOWLAST([id number])@ Excess Body Weight: @FLOWLAST([id number])@ Body Fat Percentage: No flowsheet data found. [...] cholesterol? No Are you currently prescribed a medicationfor high cholesterol? (examples Lipitor/Atorvastatin, Pravastatin, Zetia, Tricor, [...] home O2 Completed by: Angelic Vera LPN * Anai Pierre MD - 02/25/2023 2:10 PM EDT HPI, PHYSICAL EXAMINATION & PLAN HPI: Patient [...] is updated and completed. documented in this encounterSUniversity Hospitals TriPoint Medical [id number] Telephone encounter Note* Telephone Encounter - Angelic Vera LPN - 02/10/2023 12:33 PM EDT Please sign orders. Thank you! [facility] [id number] Miscellaneous Notes* Telephone Encounter - Angelic Vera LPN - 02/10/2023 12:33 PM EDT Please sign orders. Thank you! * Telephone Encounter - Elyse Richard MA - 02/10/2023 10:13 AM EDT Patient left VM that she will run out of ozempic before her next apt with [facility]. Requesting a refill. documented in this encounterSUniversity Hospitals TriPoint Medical [id number] Telephone encounter Note* Telephone Encounter - Elyse Richard MA - 02/10/2023 10:13 AM EDT Patient left VM that she will run out of ozempic before her next apt with [facility]. Requesting a refill. [facility] [id number] History of Present illness Narrative* Angelic Vera LPN - 01/19/2023 3:20 PM EDT [facility] NON-SURGICAL WEIGHT LOSS MANAGEMENT [...] Path) Date of Initial Consultation:@FLOWLAST(8961)@ Initial Weight: @FLOWLAST([id number])@ Initial BMI: @FLOWLAST([id number])@ [place] Body Weight: @FLOWLAST([id number])@ Excess Body Weight: @FLOWLAST([id number])@ Body Fat Percentage: No flowsheet data found. [...] cholesterol? No Are you currently prescribed a medicationfor high cholesterol? (examples Lipitor/Atorvastatin, Pravastatin, Zetia, Tricor, [...] home O2 Completed by: Angelic Vera LPN * Anai Pierre MD - 01/19/2023 3:20 PM EDT HPI, PHYSICAL EXAMINATION & PLAN HPI: Patient [...] is updated and completed. documented in this encounterSUniversity Hospitals TriPoint Medical [id number] History of Present illness Narrative* Shelia Tapia PA-C - 01/12/2023 9:26 AM EDT Patient presents with express care with severe abdominal pain for 2 days. She rates it a 9/10 in upper abdomen. She feels nauseated. Patient in tears and in obvious pain here. She just started ozempic as well. I recommended being seen I the ER. She will go to [facility] for further care. documented in this encounterSouthview Medical Center07-26-2023 History of Present illness Narrative* Angelic Vera LPN - 12/15/2022 3:10 PM EDT [facility] NON-SURGICAL WEIGHT LOSS MANAGEMENT [...] Weight Metrics (CARE Path) Date of Initial Consultation:@FLOWLAST(8947)@ Initial Weight: @FLOWLAST([id number])@ Initial BMI: @FLOWLAST(469012071)@ [place] Body Weight: @FLOWLAST([id number])@ Excess Body Weight: @FLOWLAST([id number])@ Body Fat Percentage: No flowsheet data found. [...] cholesterol? No Are you currently prescribed a medicationfor high cholesterol? (examples Lipitor/Atorvastatin, Pravastatin, Zetia, Tricor, [...] home O2 Completed by: Angelic Vera LPN * Anai Pierre MD - 12/15/2022 3:10 PM EDT HPI, PHYSICAL EXAMINATION & PLAN HPI: Patient [...] is updated and completed. documented in this [facility]07-12-2023 History of Present illness Narrative* Malou Hernandez ST - 12/01/2022 12:10 PM EDT DATE OF PHOTOS: 12/01/2022 Body Part: Breasts and Abdomen ST [facility] December 01, 2022 12:10 PM documented in this encounterSouthview Medical Center07-12-2023 History of Present illness Narrative* Colin Bella MD - 12/01/2022 11:15 AM EDT Plastic Surgery Note CC: Consultation for Abdominoplasty [...] Smoking history: Former smoker, quit 2011 Lives: [place], near [place] PAST MEDICAL HISTORY Diagnosis Date Anxiety [...] phentermine HCl (ADIPEX-P ORAL) Take by mouth. Ntowzajulogrw-Aj-Waqe-Minerals (MULTIPLE VITAMIN, WOMENS) tab Take 1 tablet by mouth once daily. (Patient not taking: Reported on 01/11/2022) glycopyrrolate (ROBINUL) 1 mg tablet Take 1 tablet by mouth three times daily. 90 tablet 2 Benzoyl Peroxide 5 % external wash Wash face and chest once daily as tolerated. Can bleach towels 1Bottle 5 Adapalene 0.3 % gel Apply a [...] of Breath. (Patient not taking: Reported on 01/11/2022)1 Inhaler 0 No current facility-administered medications for this visit. ALLERGIES Allergen Reactions Mite Extract Other: See Comments Chantix [Vareniclin* Other: See Comments Vomiting, diarrhea, bad dreams, restlessness, insomnia Naproxen Other: See Comments Broke out in sweats, nightmares and all did was sleep Objective: BP (!) 103/46 Pulse 85 Temp (!) 35.9 C (96.7 F) Ht 156.2 cm (5' 1.5) Wt 78 kg (172 lb) LMP 08/12/2022 (Exact Date) BMI 31.97 kg/m PE: A&O x 3; NAD Localized adiposity and excess skin of the abdomen Intra-abdominal adiposity Diastasis recti No palpable hernias Striae Scars: low transverse scar Breast scars healed well Some involution status post 2 pregnancies. Grade 1 ptosis with glandular ptosis. Slight widening ofthe areolas over time through . Assessment: Consult [...] his service. Scribed by Christina Case APRN, COMPANY DRIVER-C I agree with the Chief Complaint, ROS, and Past Histories independently gathered by the clinical support merchandiser and the remaining scribed note accurately describes my personal service to the patient. Colin Bella MD documented in this encounterSouthview Medical Center06-23-2023 History of Present illness Narrative* Jessie Butler - 11/12/2022 9:30 AM EDT [facility] NON-SURGICAL WEIGHT LOSS MANAGEMENT [...] Path) Date of Initial Consultation:@FLOWLAST(8961)@ Initial Weight: @FLOWLAST([id number])@ Initial BMI: @FLOWLAST([id number])@ [place] Body Weight: @FLOWLAST([id number])@ Excess Body Weight: @FLOWLAST([id number])@ Body Fat Percentage: No flowsheet data found. [...] cholesterol? No Are you currently prescribed a medicationfor high cholesterol? (examples Lipitor/Atorvastatin, Pravastatin, Zetia, Tricor, [...] on home O2 Completed by: Jessie Butler * Anai Pierre MD - 11/12/2022 9:30 AM EDT [facility] NON-SURGICAL WEIGHT LOSS MANAGEMENT PROGRAM PROGRESS NOTE [...] the Patient, which is located in the [facility] ManagerTab. History: Past Medical History: Diagnosis Date Asthma Back pain COVID-19 vaccine series completed 2nd shot Daytime sleepiness Difficulty sleeping Fatigue History of UTI Irregular menses Joint pain, hip Joint pain, knee Memory difficulty Morbid obesity due to excess calories ([facility]) 05/26/2021 Muscle weakness JAZZMINE (obstructive sleep apnea) Shortness of breath at rest Snoring SOBOE (shortness of breath on exertion) Past Surgical History: Procedure Laterality Date APPENDECTOMY 2016 [place] - laparoscopic BREAST SURGERY Bilateral [facility] SECTION (HISTORICAL) 2019 [place] - pfannenstiel SECTION (HISTORICAL) 2011 [place] - pfannenstiel HIP SURGERY Right Labral tear, shaved hip bone during SX- [facility] KNEE SURGERY Bilateral [place]- P[place]a removal TONSILLECTOMY [...] following co-morbid conditions at this time:JAZZMINE with orwithout CPAP IR Physical Examination: BP 109/72 Pulse 81 Ht 5' 2 (1.575 m) Wt 171 lb (77.6 kg) BMI 31.28 kg/m Weight Metrics: [place] Body Weight: Excess Body Weight: [place] BMI: 24 General: This patient is alert [...] include: none Current Activity 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 household personal 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 The patient to read and learnmore about the weight loss medications in order [...] Take 1 capsule by mouth daily. BIOTIN 56436 MCG TABLET DISPERSIBLE Take by mouth. CHOLECALCIFEROL [...] in weight loss journey discussed 6.will use [employer] for communication and let me know if she is using ozempic The patient was seen and a full chart review was performed.Clinical documentation is updated and completed. documented in this [facility]03-28-2023 History of Present illness Narrative* Dari White APRN.[facility] - 08/17/2022 6:17 PM EDT This note was created using NoteWriter. Subjective Dari Aparicio is a 32 year old female. 32 year old female with PMH ashtma, ADHD, depression and anxiety presents for complaints of illness. Acute onset 4 days ago Started with bilateral ear pain Popping Left greater than right +nasal drainage +post nasal +sore throat Denies cough Denies emesis. Denies diarrhea. +tobacco usage- quit 2011 Denies using homeopathic or OTC medications [employer]. The history is provided by the patient. No professor of languages was used. Ear Pain This is a [...] TONSILLECTOMY HX tonsils and adnoids removed ALLERGIES Mite Extract, Chantix [Varenicline], and Naproxen MEDICATIONS desvenlafaxine ER (PRISTIQ) 25 mg 24 hr tablet Take 25 mg by mouth once daily. phentermine HCl (ADIPEX-P ORAL) Take by mouth. amoxicillin-clavulanic acid (AUGMENTIN) 875-125 mg per tablet Take 1 tablet by mouth twice daily for 7 days. Uktaymvpthome-Tc-Onvz-Minerals (MULTIPLE VITAMIN, WOMENS) tab Take 1 tablet [...] if symptoms persist or worsen. Dari White APRN.HAND CLERICAL VERIFIER documented in this encounterSouthview Medical Center01-06-2023 NotePap Smear Specimen AdequacyJanuary 2022 4:31pmComment.Satisfactory for evaluation. Endocervical and/or squamous metaplasticcells (endocervical component)are present.Partially obscuring thick areas are present.[facility] INTERFACED A#[id number] Medical Center on above:Satisfactory for evaluation. Endocervical and/or squamous metaplasticcells (endocervical component)are present.Partially obscuring thick areas are present.05-28-2022 NotePap Smear Specimen AdequacyJanuary 2022 4:31pmComment.Satisfactory for evaluation. Endocervical and/or squamous metaplasticcells (endocervical component)are present.Partially obscuring thick areas are present.[facility] INTERFACED A#[id number] Medical Center on above:Satisfactory for evaluation. Endocervical and/or squamous metaplasticcells (endocervical component)are present.Partially obscuring thick areas are present.05-28-2022 NotePap Smear Specimen AdequacyJanuary 2022 4:31pmComment.Satisfactory for evaluation. Endocervical and/or squamous metaplasticcells (endocervical component)are present.Partially obscuring thick areas are present.[facility] INTERFACED A#[id number] Medical Center on above:Satisfactory for evaluation. Endocervical and/or squamous metaplasticcells (endocervical component)are present.Partially obscuring thick areas are present.01-11-2022 Instructions* Patient Instructions* Dari White APRN.[facility] - 01/11/2022 6:32 PM EDT OTITIS MEDIA [...] even if the symptoms go away. 2. Tidd-kdn-bsvkiei pain medication may be taken or other [...] holding him or her). documented in this encounterSouthview Medical Center08-22-2022 History of Present illness Narrative* Dari White APRN.CNP - 01/11/2022 6:27 PM EDT This note was created using Vidaaoriter. Subjective Dari Aparicio is a 31 year old female. 31 year old female with PMH ashtma, ADHD, and anxiety presents with complaints of right ear pain. Acute onset today Right ear Sharp 9/10 Constant. States pain is radiating down into her jaw. Denies drainage. Denies reduced hearing. Denies accompanying URI sx Denies cough. Denies fever or chills. Denies using homeopathic or OTC medications [employer]. The history is provided by the patient. No professor of languages was used. Ear Pain This is a [...] by mouth once daily for 1 day. Hfmmholioskeo-Cw-Zfqj-Minerals (MULTIPLE VITAMIN, WOMENS) tab Take 1 tablet [...] worsen. Dari White APRN.[facility] documented in this encounterSouthview Medical Center08-17-2016 History of Past illness Narrative* Problem Noted [...] strain on 09/07/10 per ER note from [facility]. Personal history of tobacco use 03/03/2010 09/17/2011 Overview: Quit 02/2010 Tobacco use disorder 03/31/2009 03/03/2010 Tonsillitis 03/31/2009 04/27/2011 Overview: Plans to have T&A now that has quit smoking. Backache, unspecified 05/26/2006 09/17/2011 Overview: Dr. Harrison; History scoliosis Hypertrophy of breast 01/07/2005 04/27/2011 Abdominal pain, epigastric 01/07/200503/03 Abdominal pain, generalized 01/07/200502/20 documented as of this encounter (statuses as of 01/11/2022) [facility] History of Past illness Narrative* Problem Noted Date Resolved Date Abdominal pain 01/07/2016 01/07/2016 Irritable bowel syndrome without diarrhea 201501/07/2016 Anemia complicating 01/25/2012 Back pain complicating 09/27/2011 03/07/2013 Supervision of normal first 09/17/2011 03/07/2013 Overview: Girl on U- Tram Tobacco use complicating 09/17/2011 12/18/2016 Overview: Quit 10/10 1-2/day- encouraged cessation Strain of lumbar region 12/18/2010 12/19/19 Overview: Myofascial strain on 09/07/10 per ER note from [facility]. Personal history of tobacco use 03/03/2010 09/17/2011 Overview: Quit 02/2010 Tobacco use disorder 03/31/2009 03/03/2010 Tonsillitis 03/31/2009 04/27/2011 Overview: Plans to have T&A now that has quit smoking. Backache, unspecified 05/26/2006 09/17/2011 Overview: Dr. Harrison; History scoliosis Hypertrophy of breast 01/07/2005 04/27/2011 Abdominal pain, epigastric 01/07/200503/03 Abdominal pain, generalized 01/07/200502/20 documented as of this encounter (statuses as of 08/18/2022) [facility] History of Past illness Narrative* Problem Noted [...] strain on 09/07/10 per ER note from [facility]. Personal history of tobacco use 03/03/2010 09/17/2011 Overview: Quit 02/2010 Tobacco use disorder 03/31/2009 010 Tonsillitis 03/31/2009 04/27/2011 Overview: Plans to have T&A now that has quit smoking. Backache, unspecified 05/26/20062011 Overview: Dr. Harrison; History scoliosis Hypertrophy of breast 01/07/20052010 Abdominal pain, epigastric 01/07/2005 1 Abdominal pain, generalized 01/07/2005 03/03/2010 documented as of this encounter (statuses as of 12/01/2022) [facility] History of Past illness Narrative* Problem Noted [...] strain on 09/07/10 per ER note from [facility]. Personal history of tobacco use 03/03/2010 09/17/2011 Overview: Quit 02/2010 Tobacco use disorder 03/31/2009 010 Tonsillitis 03/31/2009 04/27/2011 Overview: Plans to have T&A now that has quit smoking. Backache, unspecified 05/26/20062011 Overview: Dr. Harrison; History scoliosis Hypertrophy of breast 01/07/20052010 Abdominal pain, epigastric 01/07/2005 1 Abdominal pain, generalized 01/07/2005 03/03/2010 documented as of this encounter (statuses as of 12/03/2022) [facility] History of Past illness Narrative* Problem Noted [...] strain on 09/07/10 per ER note from [facility]. Personal history of tobacco use 03/03/2010 09/17/2011 Overview: Quit 02/2010 Tobacco use disorder 03/31/2009 010 Tonsillitis 03/31/2009 04/27/2011 Overview: Plans to have T&A now that has quit smoking. Backache, unspecified 05/26/20062011 Overview: Dr. Harrison; History scoliosis Hypertrophy of breast 01/07/20052010 Abdominal pain, epigastric 01/07/2005 1 Abdominal pain, generalized 01/07/2005 03/03/2010 documented as of this encounter (statuses as of 01/12/2023) [facility] History of Past illness Narrative* Problem Noted [...] strain on 09/07/10 per ER note from [facility]. Personal history of tobacco use 03/03/2010 09/17/2011 Overview: Quit 02/2010 Tobacco use disorder 03/31/2009 010 Tonsillitis 03/31/2009 04/27/2011 Overview: Plans to have T&A now that has quit smoking. Backache, unspecified 05/26/20062011 Overview: Dr. Harrison; History scoliosis Hypertrophy of breast 01/07/20052010 Abdominal pain, epigastric 01/07/2005 1 Abdominal pain, generalized 01/07/2005 03/03/2010 documented as of this encounter (statuses as of 07/22/2023) [facility] History of Past illness Narrative* Problem Noted [...] strain on 09/07/10 per ER note from [facility]. Personal history of tobacco use 03/03/2010 09/17/2011 Overview: Quit 02/2010 Tobacco use disorder 03/31/2009 010 Tonsillitis 03/31/2009 04/27/2011 Overview: Plans to have T&A now that has quit smoking. Backache, unspecified 05/26/20062011 Overview: Dr. Harrison; History scoliosis Hypertrophy of breast 01/07/20052010 Abdominal pain, epigastric 01/07/2005 1 Abdominal pain, generalized 01/07/2005 03/03/2010 documented as of this encounter (statuses as of 07/22/2023) [facility] No data available for this section [facility] Evaluation + Plan note Future Appointments Appointment Date:12/26/2024 12:45:00 PM Scheduled Provider:BROOKLYNN MENENDEZ Location:[facility] [place] Appointment Type:PM OV [facility] Evaluation note* Diagnosis Onset Date Resolution Status Nipple pain acute Pelvic pain acute Vaginitis acute Generalized anxiety disorder chronic Pain in female pelvis noneac tive Anxiety and depression chron ic Obesity (BMI 30-39.9) chroni c BMI 35.0-35.9,adult acute Class II obesity acute Suspected COVID-19 virus infection acute Upper respiratory infection acute [facility] Work Phone: Evaluation note* Diagnosis Onset Date Resolution Status Anxiety and depression chron ic Obesity (BMI 30-39.9) chroni c BMI 35.0-35.9,adult acute Class II obesity acute Suspected COVID-19 virus infection acute Upper respiratory infection acute [facility] Work Phone: evaluation note* Diagnosis Acute otitis media, right- Primary Unspecified otitis media [facility] Diagnosis Onset Date Resolution Status Chest congestion acute Cough acute Class II obesity acute [facility] Work Phone: Evaluation note* Diagnosis Onset Date Resolution Status Chest congestion acute Cough acute Class II obesity acute Class II obesity acute Encounter for routine gynecological examination noneactive [facility] Work Phone: Evaluation note* Diagnosis Onset Date Resolution Status Chest congestion acute Cough acute Class II obesity acute Class II obesity acute Encounter for routine gynecological examination noneactive BMI 35.0-35.9,adult acute Class II obesity acute Insulin resistance acute Generalized anxiety disorder chronic Class II obesity acute [facility] Work Phone: Evaluation note* Diagnosis Onset Date Resolution Status Class II obesity acute Class II obesity acute Encounter for routine gynecological examination noneactive BMI 35.0-35.9,adult acute Class II obesity acute Insulin resistance acute Generalized anxiety disorder chronic Class II obesity acute ASCUS with positive high risk HPV acute [facility] Work Phone: Evaluation note* Diagnosis Acute otitis media, bilateral- Primary Unspecified otitis media Rhinosinusitis Unspecified sinusitis (chronic) [facility]* Diagnosis BMI 31.0-31.9,adult- Primary Class 1 obesity with serious comorbidity and body mass index (BMI) of 31.0 to 31.9 in adult, unspecified obesity type JAZZMINE (obstructive sleep apnea) Obstructive sleep apnea (adult) (pediatric) Insulin resistance Other abnormal glucose [facility] Diagnosis Onset Date Resolution Status Contraceptive management acu te Depression acute Status post tubal ligation a [facility] Work Phone: Evaluation note* Diagnosis Diastasis recti- Primary Diastasis of muscle Localized adiposity documented in this encounter [facility] note* Diagnosis Onset Date Resolution Status Status post tubal ligation a [facility] Work Phone: Evaluation note* Diagnosis Insulin resistance- Primary Other abnormal glucose BMI 30.0-30.9,adult Class 1 obesity without serious comorbidity with body mass index (BMI) of 30.0 to 30.9 in adult, unspecified obesity type [facility]* Diagnosis Abdominal pain, unspecified abdominal location- Primary [facility]* Diagnosis Onset Date Resolution Status Left knee pain acute Right knee pain acute [facility] Work Phone: evaluation note* Diagnosis Insulin resistance- Primary Other abnormal glucose BMI 30.0-30.9,adult Class 1 obesity without serious comorbidity with body mass index (BMI) of 30.0 to 30.9 in adult, unspecified obesity type documented in this encounter [facility]* Diagnosis Insulin resistance Other abnormal glucose [facility]* Diagnosis Insulin resistance- Primary Other abnormal glucose BMI 28.0-28.9,adult Overweight (BMI 25.0-29.9) Overweight documented in this encounter [facility]* Diagnosis Insulin resistance- Primary Other abnormal glucose BMI 28.0-28.9,adult Overweight (BMI 25.0-29.9) Overweight documented in this encounter [facility]* Diagnosis Onset Date Resolution Status Effusion, left knee acute Left knee pain acute Acute sinusitis acute Vulvodynia acute [facility] Work Phone: evaluation note* Diagnosis Insulin resistance- Primary Other abnormal glucose BMI 27.0-27.9,adult Overweight (BMI 25.0-29.9) Overweight [facility]* Diagnosis Onset Date Resolution Status Vulvodynia acute Possible exposure to STD non eactive Vulvovaginitis noneactive [facility] Work Phone: evaluation note* Diagnosis Insulin resistance- Primary Other abnormal glucose BMI 25.0-25.9,adult Overweight (BMI 25.0-29.9) Overweight [facility]* Diagnosis Onset Date Resolution Status Vulvodynia acute Possible exposure to STD non eactive Vulvovaginitis noneactive Encounter for routine gynecological examination noneactive [facility] Work Phone: evaluation note* Diagnosis Acne vulgaris- Primary Other acne Post-inflammatory hyperpigmentation Dyschromia, unspecified Generalized hyperhidrosis documented in this encounter [facility] note* Diagnosis Chronic maxillary sinusitis- Primary Chronic migraine without aura without status migrainosus, not intractable Non-seasonal allergic rhinitis, unspecified trigger documented in this encounter [facility] note* Diagnosis Overweight (BMI 25.0-29.9)- Primary Overweight Insulin resistance Other abnormal glucose BMI 26.0-26.9,adult documented in this encounter [facility] note* Diagnosis Insulin resistance Other abnormal glucose documented in this encounter [facility] note* Diagnosis Insulin resistance- Primary Other abnormal glucose BMI 26.0-26.9,adult Overweight (BMI 25.0-29.9) Overweight documented in this encounter [facility] note* Diagnosis Insulin resistance Other abnormal glucose documented in this encounter [facility] note* Diagnosis Acute cough- Primary Exacerbation of asthma, unspecified asthma severity, unspecified whether persistent Rhinosinusitis Unspecified sinusitis (chronic) Acute cough documented in this encounter [facility] note* Diagnosis Acute cough documented in this encounter [facility] note* Diagnosis Constipation, unspecified constipation type- Primary documented in this encounter [facility] note* Diagnosis Insulin resistance- Primary Other abnormal glucose BMI 30.0-30.9,adult Class 1 obesity due to excess calories with serious comorbidity and body mass index (BMI) of 30.0 to 30.9 in adult documented in this encounter [facility] note* Diagnosis Lower resp. tract infection- Primary Other diseases of respiratory system, not elsewhere classified documented in this encounter [facility] note* Diagnosis Generalized weakness- Primary Other malaise and fatigue documented in this encounter [facility] note* Diagnosis Insulin resistance- Primary Other abnormal glucose BMI 30.0-30.9,adult Class 1 obesity due to excess calories with serious comorbidity and body mass index (BMI) of 30.0 to 30.9 in adult documented in this encounter [facility] note* Diagnosis Insulin resistance- Primary Other abnormal glucose BMI 31.0-31.9,adult Class 1 obesity due to excess calories with serious comorbidity and body mass index (BMI) of 31.0 to 31.9 in adult [facility] Insulin resistance- Primary Other abnormal glucose BMI 31.0-31.9,adult Class 1 obesity due to excess calories with serious comorbidity and body mass index (BMI) of 31.0 to 31.9 in adult documented in this encounter [facility] Summary Purpose Family History No Family History Records Found Relationship Condition Age at Onset Recorded Date/T sharon mother Depression Unknown aunt Malignant neoplasm of breast Unknown grandmother Diabetes mellitus Unknown uncle Hyperlipidemia Unknown Meniere's disease Unknown Depression Unknown Relationship Condition Age at Onset Recorded Date/T sharon Not Specified Hypertension Unknown mother Depression Unknown aunt Malignant neoplasm of breast Unknown Multiple sclerosis Unknown grandmother Diabetes mellitus Unknown uncle Hyperlipidemia Unknown Meniere's disease Unknown Depression Unknown grandfather Cardiac disease Unknown Myocardial infarction Unknown Cerebrovascular accident (CVA) Unknown sister Crohn's disease Unknown Relationship Condition Age at Onset Recorded Date/T sharon Not Specified Hypertension Unknown mother Depression Unknown aunt Malignant neoplasm of breast Unknown grandmother Diabetes mellitus Unknown uncle Hyperlipidemia Unknown Meniere's disease Unknown Depression Unknown grandfather Cardiac disease Unknown Myocardial infarction Unknown Cerebrovascular accident (CVA) Unknown sister Crohn's disease Unknown Down syndrome Unknown aunt Multiple sclerosis Unknown Crohn's disease Unknown father Rheumatoid arthritis Unknown Cerebral aneurysm Unknown brother Bipolar I disorder Unknown Intellectual disability Unknown Advance Directives No Advanced Directives Records Found Advance Directive Response Recorded Date/ Time Advance Directives No March 10:08am Living Will No April 01 10:08am Power of Hand Clerical Verifier No April 01, 2021 10:08am Advance Directive Response Recorded Date/ Time Advance Directives No March 10:08am Living Will No November 15, 2021 6:42pm Power of Hand Clerical Verifier No November 15 6:42pm Advance Directive Response Recorded Date/ Time Advance Directives No March 9:08am Living Will No November 15, 2021 5:42pm Power of Hand Clerical Verifier No November 15 5:42pm Advance Directive Response Recorded Date/ Time Advance Directives No March 10:08am Living Will No August 31, 2022 9:56am Power of Hand Clerical Verifier No August 31 9:56am Advance Directive Response Recorded Date/ Time Advance Directives No March 10:08am Living Will No January 12 9:58am Power of Hand Clerical Verifier No January 12 023 9:58am Advance Directive Response Recorded Date/ Time Advance Directives No March 9:08am Living Will No January 12 8:58am Power of Hand Clerical Verifier No January 12 023 8:58am Advance Directive Response Recorded Date/ Time Advance Directives No May 24, 2023 11:31am Living Will No May 24 11:31am Power of Hand Clerical Verifier No May 24 11:31am Advance Directive Response Recorded Date/ Time Living Will No November 28, 2023 9 :58pm Do you have a Healthcare Power of Hand Clerical Verifier? No November 28, 2023 9:58pm Living Will No July 10 025 2:20pm Do you have a Healthcare Power of Hand Clerical Verifier? No July 10, 2024 2:20pm Advance Directives No March 30, 2024 8:43am Advance Directive Response Recorded Date/ Time Advance Directives No October 08 9:07am Living Will No July 10 025 2:20pm Do you have a Healthcare Power of Hand Clerical Verifier? No July 10, 2024 2:20pm Advance Directive Response Recorded Date/ Time Advance Directives No October 08 9:07am Chief Complaint and Reason for Visit Chief Complaint Pelvic pain BILAT NIPPLE PAIN weight loss consult Weight check/BP check weight check/BP check POSSIBLE COVID AND/OR STREP Reason for Visit Nipple pain Pelvic pain Vaginitis Generalized anxiety disorder Pain in female pelvis Anxiety and depression Obesity (BMI 30-39.9) BMI 35.0-35.9,adult Class II obesity Suspected COVID-19 virus infection Upper respiratory infection Chief Complaint BILAT NIPPLE PAIN weight loss consult Weight check/BP check weight check/BP check POSSIBLE COVID AND/OR STREP GENERAL ILLNESS Reason for Visit Anxiety and depressi on Obesity (BMI 30-39.9) BMI 35.0-35.9,adult Class II obesity Suspected COVID-19 virus infection Upper respiratory infection Chief Complaint well now clinic foll ow up weight management consult E-ORDER Reason for Visit Chest congestion Cough Class II obesity Chief Complaint well now clinic foll ow up weight management consult E-ORDER Annual (HOSPITAL FELLOW) Reason for Visit Chest congestion Cough Class II obesity Class II obesity Encounter for routine gynecological examination Chief Complaint well now clinic foll ow up weight management consult E-ORDER Annual (HOSPITAL FELLOW) Transfer of Care 4 wk FU Reason for Visit Chest congestion Cough Class II obesity Class II obesity Encounter for routine gynecological examination BMI 35.0-35.9,adult Class II obesity Insulin resistance Generalized anxiety disorder Class II obesity Chief Complaint weight management co nsult E-ORDER Annual (HOSPITAL FELLOW) Transfer of Care 4 wk FU Colposcopy Reason for Visit Class II obesity Class II obesity Encounter for routine gynecological examination BMI 35.0-35.9,adult Class II obesity Insulin resistance Generalized anxiety disorder Class II obesity ASCUS with positive high risk HPV Chief Complaint BS/title 19 needs si gned LAP BILAT SALPING LAP BILAT SALPING 2 wk BS EORDER Reason for Visit Contraceptive manage ment Depression Status post tubal ligation Chief Complaint LAP BILAT SALPING LAP BILAT SALPING 2 wk BS EORDER EORDER Reason for Visit Status post tubal li gation Chief Complaint 2 wk BS EORDER EORDER BL KNEES RM 5 LEFT KNEE PAIN LLQ Reason for Visit Left knee pain Right knee pain Chief Complaint LEFT KNEE PAIN LLQ LEFT KNEE COUGH/CHEST CONGESTION EORDERS vaginal infection Reason for Visit Effusion, left knee Left knee pain Acute sinusitis Vulvodynia Chief Complaint EORDERS vaginal infection COUGH, SINUS PRESSURE, FATIGUE vaginal labial burning, diflucan not helping Reason for Visit Vulvodynia Possible exposure to STD Vulvovaginitis Chief Complaint EORDERS vaginal infection COUGH, SINUS PRESSURE, FATIGUE vaginal labial burning, diflucan not helping Annual (HOSPITAL FELLOW) Reason for Visit Vulvodynia Possible exposure to STD Vulvovaginitis Encounter for routine gynecological examination Chief Complaint Admit Date POOR STOMACH REPONSE TO CO2 DURING EGD D ecember 2023 10:32am 3 M FU May 25, 2024 9: 31am DIZZINESS July 10, 2024 12:10pm CONCERN FOR SINUS INFECTION July 28 10:17am ACUTE - SEVERE SCIATICA August 22, 2024 2:44pm chronic back pain August 24, 2024 9:30 am Reason for Visit Admit Date Delayed gastric emptying May 25 9:31am IBS (irritable bowel syndrome) May 252024 9:31am RUQ pain May 25, 2024 9: 31am Influenza A July 28, 2024 10:1 7am Depression with anxiety August 22, 2024 2:44pm Chronic back pain August 22, 2024 2:44 pm Chief Complaint Admit Date DIZZINESS July 10, 2024 12:10pm CONCERN FOR SINUS INFECTION July 28, 025 10:17am ACUTE - SEVERE SCIATICA August 22, 2024 2:44pm chronic back pain August 24, 2024 9:30 am LUMBAR SPINE September 03, 2024 9:1 6am Room 2 September 03, 2024 10: 19am 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 17, 2024 10 :16am Annual (HOSPITAL FELLOW) September 25, 2024 8:27am Pain,,mcfp October 06, 2024 10:26 am LUMBAR SPINE October 09, 2024 8:09a m Reason for Visit Admit Date Influenza A July 28, 2024 10:1 7am Chronic back pain August 22, 2024 2:44 pm Depression with anxiety August 22, 2024 2:44pm Lumbar radiculopathy September 03, 2024 9: 16am Depression September 17, 2024 10: 16am IBS (irritable bowel syndrome) August 10:16am Lumbar radiculopathy September 17, 2024 10 :16am Generalized anxiety disorder September 17, 2024 10:16am Obesity (BMI 30-39.9) September 17, 2024 1 0:16am Establishing care with new doctorobed for September 17, 2024 10:16am 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, 2024 10: 16am GERD (gastroesophageal reflux disease) A pril 2024 10:16am Vitamin D deficiency September 17, 2024 10 :16am Encounter for routine gynecological exam ination September 25, 2024 8:27am Reason for Visit Admit Date Influenza A July 28, 2024 10:1 7am Chronic back pain August 22, 2024 2:44 pm Depression with anxiety August 22, 2024 2:44pm Lumbar radiculopathy September 03, 2024 9: 16am Depression September 17, 2024 10: 16am IBS (irritable bowel syndrome) August 10:16am Lumbar radiculopathy September 17, 2024 10 :16am Generalized anxiety disorder September 17, 2024 10:16am Obesity (BMI 30-39.9) September 17, 2024 1 0:16am Establishing care with new doctorobed nter for September 17, 2024 10:16am 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, 2024 10: 16am GERD (gastroesophageal reflux disease) A pril 2024 10:16am Vitamin D deficiency September 17, 2024 10 :16am Encounter for routine gynecological exam ination September 25, 2024 8:27am Lumbar radiculopathy October 09, 2024 8:09 am Chief Complaint Admit Date ACUTE - SEVERE SCIATICA August 22, 2024 2:44pm chronic back pain August 24, 2024 9:30 am LUMBAR SPINE September 03, 2024 9:1 6am Room 2 September 03, 2024 10: 19am 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 17, 2024 10 :16am Annual (HOSPITAL FELLOW) September 25, 2024 8:27am Pain,,mcfp October 06, 2024 10:26 am LUMBAR SPINE October 09, 2024 8:09a m Possible BV December 03, 2024 2:42 pm Reason for Visit Admit Date Chronic back pain August 22, 2024 2:44 pm Depression with anxiety August 22, 2024 2:44pm Lumbar radiculopathy September 03, 2024 9: 16am Depression September 17, 2024 10: 16am IBS (irritable bowel syndrome) August 10:16am Lumbar radiculopathy September 17, 2024 10 :16am Generalized anxiety disorder September 17, 2024 10:16am Obesity (BMI 30-39.9) September 17, 2024 1 0:16am Establishing care with new doctorobed for September 17, 2024 10:16am 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, 2024 10: 16am GERD (gastroesophageal reflux disease) A pril 2024 10:16am Vitamin D deficiency September 17, 2024 10 :16am Encounter for routine gynecological exam ination September 25, 2024 8:27am Lumbar radiculopathy October 09, 2024 8:09 am Reason for Visit Admit Date Chronic back pain August 22, 2024 2:44 pm Depression with anxiety August 22, 2024 2:44pm Lumbar radiculopathy September 03, 2024 9: 16am Depression September 17, 2024 10: 16am IBS (irritable bowel syndrome) August 10:16am Lumbar radiculopathy September 17, 2024 10 :16am Generalized anxiety disorder September 17, 2024 10:16am Obesity (BMI 30-39.9) September 17, 2024 1 0:16am Establishing care with new doctor, obed martinez for September 17, 2024 10:16am 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, 2024 10: 16am GERD (gastroesophageal reflux disease) A pril 2024 10:16am Vitamin D deficiency September 17, 2024 10 :16am Encounter for routine gynecological exam ination September 25, 2024 8:27am Lumbar radiculopathy October 09, 2024 8:09 am Vaginal discharge December 03, 2024 2:42 pm Vaginal odor December 03, 2024 2:42 pm Reason for Referral Specialty Diagnoses / Procedures Referred By Contac t Referred To Contact Radiology Diagnoses Chronic maxillary sinusitis Procedures CT Sinus Stealth Without Contrast Arcadio Nguyễn MD [address] [place] [address] Referral ID Status Reason Start Date Expiration Date V isits Requested Visits Authorized [id number] Pending Review 08/09/2023 08/08/2024 1 1 Additional Source Comments INFORMATION SOURCE (unrecogn ized section and content) DATE CREATED AUTHOR 02/12/2020 [facility] DATE CREATED AUTHOR AUTHOR'S ORGANIZ ATION 03/26/2021 [facility] CREATED AUTHOR AUTHOR'S ORGANIZ ATION 08/20/2021 [facility] DATE CREATED AUTHOR AUTHOR'S ORGANIZ ATION 08/10/2023 [facility] DATE CREATED AUTHOR AUTHOR'S ORGANIZ ATION 07/12/2024 [facility] DATE CREATED AUTHOR AUTHOR'S ORGANIZ ATION 12/14/2024 [facility] DATE CREATED AUTHOR AUTHOR'S ORGANIZ ATION 12/27/2024 [facility] DATE CREATED AUTHOR AUTHOR'S ORGANIZ ATION 01/04/2025 [facility] Goals (unrecognized section and content) Goals may be documented in a n alternate sectionGoals may be documented in an alternate sectionGoals may be documented in an alternate sectionGoals may be documented in an alternate sectionGoals may be documented in an alternate sectionGoals may be documented in an alternate sectionGoals may be documented in an alternate sectionGoals may be documented in an alternate sectionGoals may be documented in an alternate sectionGoals may be documented in an alternate sectionGoals may be documented in an alternate sectionGoals may be documented in an alternate section No data available for this sectionGoals may be documented in an alternate sectionGoals may be documented in an alternate sectionGoals may be documented in an alternate sectionGoals may be documented in an alternate sectionGoals may be documented in an alternate section No data available for this section Source Comments (unrecognize d section and content) In the event this informatio n is protected by the Federal Confidentiality of Alcohol and Drug Abuse Patient Records regulations: The Federal rules restrict any use of the information to criminally investigate or prosecute any alcohol or drug abuse patient.[facility] Center[facility] the event this information is protected by the Federal Confidentiality of Alcohol and Drug Abuse Patient Records regulations: The Federal rules restrict any use of the information to criminally investigate or prosecute any alcohol or drug abuse patient.[facility] Center[facility] the event this information is protected by the Federal Confidentiality of Alcohol and Drug Abuse Patient Records regulations: The Federal rules restrict any use of the information to criminally investigate or prosecute any alcohol or drug abuse patient.[facility] Center[facility] the event this information is protected by the Federal Confidentiality of Alcohol and Drug Abuse Patient Records regulations: The Federal rules restrict any use of the information to criminally investigate or prosecute any alcohol or drug abuse patient.[facility] Center[facility] the event this information is protected by the Federal Confidentiality of Alcohol and Drug Abuse Patient Records regulations: The Federal rules restrict any use of the information to criminally investigate or prosecute any alcohol or drug abuse patient.[facility] Center[facility] the event this information is protected by the Federal Confidentiality of Alcohol and Drug Abuse Patient Records regulations: The Federal rules restrict any use of the information to criminally investigate or prosecute any alcohol or drug abuse patient.[facility] CenterIn the event this information is protected by the Federal Confidentiality of Alcohol and Drug Abuse Patient Records regulations: The Federal rules restrict any use of the information to criminally investigate or prosecute any alcohol or drug abuse patient.[facility] CenterIn the event this information is protected by the Federal Confidentiality of Alcohol and Drug Abuse Patient Records regulations: The Federal rules restrict any use of the information to criminally investigate or prosecute any alcohol or drug abuse patient.[facility] CenterIn the event this information is protected by the Federal Confidentiality of Alcohol and Drug Abuse Patient Records regulations: The Federal rules restrict any use of the information to criminally investigate or prosecute any alcohol or drug abuse patient.[facility] CenterIn the event this information is protected by the Federal Confidentiality of Alcohol and Drug Abuse Patient Records regulations: The Federal rules restrict any use of the information to criminally investigate or prosecute any alcohol or drug abuse patient.[facility] CenterIn the event this information is protected by the Federal Confidentiality of Alcohol and Drug Abuse Patient Records regulations: The Federal rules restrict any use of the information to criminally investigate or prosecute any alcohol or drug abuse patient.[facility] CenterIn the event this information is protected by the Federal Confidentiality of Alcohol and Drug Abuse Patient Records regulations: The Federal rules restrict any use of the information to criminally investigate or prosecute any alcohol or drug abuse patient.[facility] CenterIn the event this information is protected by the Federal Confidentiality of Alcohol and Drug Abuse Patient Records regulations: The Federal rules restrict any use of the information to criminally investigate or prosecute any alcohol or drug abuse patient.[facility] CenterIn the event this information is protected by the Federal Confidentiality of Alcohol and Drug Abuse Patient Records regulations: The Federal rules restrict any use of the information to criminally investigate or prosecute any alcohol or drug abuse patient.[facility] CenterIn the event this information is protected by the Federal Confidentiality of Alcohol and Drug Abuse Patient Records regulations: The Federal rules restrict any use of the information to criminally investigate or prosecute any alcohol or drug abuse patient.[facility] CenterIn the event this information is protected by the Federal Confidentiality of Alcohol and Drug Abuse Patient Records regulations: The Federal rules restrict any use of the information to criminally investigate or prosecute any alcohol or drug abuse patient.[facility] Reason for Visit (unrecogniz ed section and [...] Reason Comments Weight Loss NSURG # 10 Reason Comments Cough With chest congestio n & sinus x 1 week Reason Onset Date Comments Other 03/29/2024 PATIENT QUESTION S Reason Comments New Patient second opinion epiga stric pain Reason Comments Refill Request Reason Comments Weight Management Nsurg 11 Reason Comments Cough Cough, congestion, c hest hurts and fatigue x 5 days Reason Comments Patient Question Reason Comments Cough chills, dizziness, w eakness and major diarrhea seen on Tuesday + pneumonia given augmentin Reason Comments Weight Management Nsurg 12 Reason Onset Date Comments Referral 07/24/2024 Appointment Request 07/24/2024 Reason Comments Weight Loss NSURG #13 Reason Comments Weight Loss NSURG #14 Care Teams (unrecognized sec tion and content) In File Operator Relationship Specialty Start Date End Date Deon Alfaro MD [address] [place] [address] PCP - General Internal Medicine 01/11/22 Team Status: Active Member Role Status Dates Dr. Deon Alfaro MD Primary Care Provider Active Team Status: Inactive Member Role Status Dates Dr. Deon Alfaro MD Primary Care Provider, Refer ring Provider Active Dr. Es Cline DO Attending Provider Activ e Team Status: Inactive Member Role Status Dates Dr. Deon Alfaro MD Primary Care P rovider, Attending Provider, Referring Provider Active Team Status: Inactive Member Role Status Dates Dr. Deon Alfaro MD Primary Care Provider Active Dr. Es Cline DO Attending Provider, Refe rring Provider Active Team Status: Inactive Member Role Status Dates Dr. Deon Alfaro MD Primary Care Provider Active Dr. Es Cline DO Attending Provider Activ e Team Status: Active Member Role Status Dates Dr. Krista Parker MD Primary Care Provider Active Team Status: Inactive Member Role Status Dates Dr. Deon Alfaro MD Referring Provider Active Dr. Es Cline DO Attending Provider Activ e Dr. Krista Parker MD Primary Care Provider Active Team Status: Inactive Member Role Status Dates Dr. Deon Alfaro MD Primary Care Provider Active Dr. Krista Parker MD Attending Provider Active Team Status: Inactive Member Role Status Dates Dr. Krista Parker MD Primary Care Pro vider, Attending Provider, Referring Provider Active Dr. Es Cline DO Other Provider Active Team Status: Inactive Member Role Status Dates Dr. Krista Parker MD Primary Care Provider Active Dr. Es Cline DO Attending Provider, Refe rring Provider Active In File Operator Relationship Specialty Start Date End Date Mega Cordova DO [address] [place] [address] PCP - General Family Medicine 08/17/22 In File Operator Relationship Specialty Start Date End Date Jatin Alfarogarry Azucena [address] [place] [address] PCP - General 03/25/21 Team Status: Active Member Role Status Dates Mega Cordova , Primary Care Provider Active Team Status: Inactive Member Role Status Dates Dr. Krista Parker MD Referring Provider Active Dr. Es Cline , Attending Provider Activ e Mega Cordova , DO Primary Care Provider Active Team Status: Inactive Member Role Status Dates Dr. Krista Parker MD Primary Care Provider, Referri ng Provider Active Dr. Es Cline DO Attending Provider Activ e Team Status: Active Member Role Status Dates Dr. Es Cline , Attending Provider, Referring Provider, Other Provider Active Mega Cordova , Primary Care Provider Active Team Status: Inactive Member Role Status Dates Dr. Es Cline , Attending Provider, Refe rring Provider Active Mega Cordova DO Primary Care Provider Active Team Status: Inactive Member Role Status Dates Mega Cordova DO Primary Care Provi jourdan, Attending Provider, Referring Provider Active In File Operator Relationship Specialty Start Date End Date Mega Cordova DO [address] [place] [address] PCP - General Family Medicine 08/17/22 In File Operator Relationship Specialty Start Date End Date Mega Cordova DO [address] [place] [address] PCP - General Family Medicine 08/17/22 In File Operator Relationship Specialty Start Date End Date Destinitaras Vladislavforest B [address] [place] [address] PCP - General 03/25/21 In File Operator Relationship Specialty Start Date End Date Deon Alfaro B PCP - General 03/25/21 Team Status: Inactive Member Role Status Dates Mega Cordova , Primary Care Provider, Referring Provider Active Hai Sanchez MD Attending Provider Active Team Status: Inactive Member Role Status Dates Mega Cordova , Primary Care Provider Active Dr. Que Virgen MD Attending Provider Active Team Status: Inactive Member Role Status Dates Mega Cordova DO Primary Care Provider Active Dr. Oracio Johnson MD Emergency Provider Active Team Status: Inactive Member Role Status Dates Mega Cordova , DO Primary Care Provider Active Hai Sanchez MD Attending Provider, Referring Prov ider Active In File Operator Relationship Specialty Start Date End Date Deon Alfaro B PCP - General 03/25/21 In File Operator Relationship Specialty Start Date End Date Jatin Alfarobe B PCP - General 03/25/21 In File Operator Relationship Specialty Start Date End Date Jatin Alfarobe B PCP - General 03/25/21 In File Operator Relationship Specialty Start Date End Date Jatin Alfarobe [address] [place] [id number] PCP - General 03/25/21 Team Status: Inactive Member Role Status Dates Mega Cordova DO Primary Care Provider, Referring Provider Active Antolin Chavez PA, PA Attending Provider Active Team Status: Inactive Member Role Status Dates Mega Cordova DO Primary Care Provider, Referring Provider Active Yessi Koo CNM Attending Provider Active Team Status: Inactive Member Role Status Dates Mega Cordova , DO Primary Care Provider Active Dr. Oracio Johnson MD Attending Provider, Emergency Provider Active Team Status: Active Member Role Status Dates Mega Nyal Tasha , DO Primary Care Provider Active Yessi Koo CNM Attending Provider, Referring Pro vider Active Team Status: Inactive Member Role Status Dates Mega Redmond Tasha , DO Primary Care Provider Active Yessi Koo CNM Attending Provider, Referring Pro vider Active In File Operator Relationship Specialty Start Date End Date Deon Alfaro [address] [facility] [address] [place] [phone] PCP - General 03/25/21 Team Status: Inactive Member Role Status Dates Mega Cordova , DO Primary Care Provider, Referring Provider Active Everette Felder PA, PA Attending Provider Active Team Status: Inactive Member Role Status Dates Mega Cordova , DO Primary Care Provider, Referring Provider Active Afsaneh Snow COMPANY DRIVER, COMPANY DRIVER-C Attending Provider Active Team Status: Inactive Member Role Status Dates Megase Cordova , DO Primary Care Provider Active Afsaneh Snow COMPANY DRIVER, COMPANY DRIVER-C Attending Provider Active Team Status: Inactive Member Role Status Dates Mega Cordova , DO Primary Care Provider, Referring Provider Active Dr. Es Cline , DO Attending Provider Activ e Team Status: Inactive Member Role Status Dates Mega Cordova , DO Primary Care Provider Active Dr. Es Cline , DO Attending Provider Activ e Team Status: Inactive Member Role Status Dates Mega Cordova , Primary Care Provider Active Dr. Es lCine , DO Attending Provider, Refe rring Provider Active In File Operator Relationship Specialty Start Date End Date Blue Cordovaistin NylaDO [address] [facility] [address] [place], [place] [id number] PCP - General Family Medicine 08/17/22 In File Operator Relationship Specialty Start Date End Date Mega CordovaDO [address] [facility] [address] [place], [place] [id number] PCP - General Family Medicine 08/17/22 In File Operator Relationship Specialty Start Date End Date System, Provider Not In PCP - General 07/08/23 In File Operator Relationship Specialty Start Date End Date Deon Alfaro [address] [place] [address] PCP - General 03/25/21 In File Operator Relationship Specialty Start Date End Date Deon Alfaro [address] [place] [address] PCP - General 03/25/21 In File Operator Relationship Specialty Start Date End Date Deon Alfaro [address] [place] [address] PCP - General 03/25/21 In File Operator Relationship Specialty Start Date End Date Deon Alfaro [address] [place] [address] PCP - General 03/25/21 In File Operator Relationship Specialty Start Date End Date Deon Alfaro [address] [place] [address] PCP - General 03/25/21 In File Operator Relationship Specialty Start Date End Date Renea Bassett, ROOF TRUSS DETAILER.HAND CLERICAL VERIFIER [address] [place] [address] PCP - General Cardiology 03/30/24 In File Operator Relationship Specialty Start Date End Date Deon Alfaro B [address] [place] [address] PCP - General 03/25/21 In File Operator Relationship Specialty Start Date End Date Renea Bassett APRN.HAND CLERICAL VERIFIER [address] [place], [place] [address] PCP - General Cardiology 03/30/24 In File Operator Relationship Specialty Start Date End Date Angelina Deon Zeng [address] [place] [address] PCP - General 03/25/21 In File Operator Relationship Specialty Start Date End Date Angelina Deon B [address] [facility] [address] [place] [phone] PCP - General 03/25/21 In File Operator Relationship Specialty Start Date End Date DarentarasDeon B [address] [facility] [address] [place] [address] PCP - General 03/25/21 Team Status: Active Member Role Status Dates Dr. Steph Camacho MD Primary Care Provider Active Team Status: Inactive Member Role Status Dates PERLITA Vazquez Attending Provider Active S tart: May 11, 2024 End: May 11, 2024 PERLITA Vazquez Referring Provider Active S tart: May 11, 2024 End: May 11, 2024 No Primary Care Physician Primary Care Provider Active Start: May 11, 2024 End: May 11, 2024 Team Status: Inactive Member Role Status Dates PERLITA Bruno Referring Provider Active S tart: May 25, 2024 End: May 25, 2024 CAROLYN Baltazar Attending Provider Active Start: May 25, 2024 End: May 25, 2024 Team Status: Inactive Member Role Status Dates No Primary Care Physician Primary Care Provider Active Start: July 10, 2024 End: July 10, 2024 Dr. Gonzalo Blanco MD Attending Provider Active S tart: July 10, 2024 End: July 10, 2024 Dr. Gonzalo Blanco MD Emergency Provider Active S tart: July 10, 2024 End: July 10, 2024 Team Status: Inactive Member Role Status Dates No Primary Care Physician Primary Care Provider Active Start: July 28, 2024 End: July 28, 2024 No Primary Care Physician Referring Provider Active Start: July 28, 2024 End: July 28, 2024 CAROLYN Lyle Attending Provider Active Start: July 28, 2024 End: July 28, 2024 Team Status: Inactive Member Role Status Dates No Primary Care Physician Primary Care Provider Active Start: August 22, 2024 End: August 22, 2024 No Primary Care Physician Referring Provider Active Start: August 22, 2024 End: August 22, 2024 CAROLYN Fernandez Attending Provider Active St art: August 22, 2024 End: August 22, 2024 Team Status: Inactive Member Role Status Dates HERMAN MONCADA Other Provider Active Start: 2024 End: August 24, 2024 CAROLYN Fernandez Attending Provider Active St art: August 24, 2024 End: August 24, 2024 CAROLYN Fernandez Referring Provider Active St art: August 24, 2024 End: August 24, 2024 Dr. Steph Camacho MD Primary Care Provider Active Start: August 24, 2024 End: August 24, 2024 Team Status: Inactive Member Role Status Dates Dr. Steph Camacho MD Primary Care Provider Active Start: September 03, 2024 End: September 03, 2024 Dr. Steph Camacho MD Referring Provider Active Start: September 03, 2024 End: September 03, 2024 CAROLYN Garza Attending Provider Active Star t: September 03, 2024 End: September 03, 2024 Team Status: Inactive Member Role Status Dates Dr. Steph Camacho MD Primary Care Provider Active Start: September 03, 2024 End: September 03, 2024 Dr. Que Virgen MD Attending Provider Active S tart: September 03, 2024 End: September 03, 2024 Team Status: Inactive Member Role Status Dates No Primary Care Physician Referring Provider Active Start: September 17, 2024 End: September 17, 2024 Dr. Steph Camacho MD Primary Care Provider Active Start: September 17, 2024 End: September 17, 2024 Dr. Steph Camacho MD Attending Provider Active Start: September 17, 2024 End: September 17, 2024 Team Status: Inactive Member Role Status Dates Dr. Steph Camacho MD Primary Care Provider Active Start: September 19, 2024 End: September 19, 2024 Dr. Steph Camacho MD Attending Provider Active Start: September 19, 2024 End: September 19, 2024 Dr. Steph Camacho MD Referring Provider Active Start: September 19, 2024 End: September 19, 2024 Team Status: Inactive Member Role Status Dates Dr. Steph Camacho MD Primary Care Provider Active Start: September 25, 2024 End: September 25, 2024 Dr. Steph Camacho MD Referring Provider Active Start: September 25, 2024 End: September 25, 2024 Dr. Es Cline DO Attending Provider Activ e Start: September 25, 2024 End: September 25, 2024 Team Status: Active Member Role Status Dates Dr. Steph Camacho MD Primary Care Provider Active Start: October 06, 2024 CAROLYN Garza Attending Provider Active Star t: October 06, 2024 Tia Kumar COMPANY DRIVER, COMPANY DRIVER-C Referring Provider Active St art: October 06, 2024 Team Status: Inactive Member Role Status Dates Dr. Steph Camacho MD Primary Care Provider Active Start: October 09, 2024 End: October 09, 2024 Dr. Steph Camacho MD Referring Provider Active Start: October 09, 2024 End: October 09, 2024 CAROLYN Garza Attending Provider Active Star t: October 09, 2024 End: October 09, 2024 Team Status: Inactive Member Role Status Dates Dr. Steph Camacho MD Primary Care Provider Active Start: October 06, 2024 End: October 06, 2024 CAROLYN Garza Attending Provider Active Star t: October 06, 2024 End: October 06, 2024 Tia José COMPANY DRIVER, COMPANY DRIVER-C Referring Provider Active St art: October 06, 2024 End: October 06, 2024 In File Operator Relationship Specialty Start Date End Date Deon Alfaro [address] [place] [id number] PCP - General 03/25/21 Team Status: Active Member Role/Relationship Status Dates Dr. Steph Camacho MD Primary Care Provider Active Team Status: Inactive Member Role/Relationship Status Dates No Primary Care Physician Primary Care Provider Active Start: August 22, 2024 End: August 22, 2024 No Primary Care Physician Referring Provider Active Start: August 22, 2024 End: August 22, 2024 CAROLYN Fernandez Attending Provider Active St art: August 22, 2024 End: August 22, 2024 Team Status: Inactive Member Role/Relationship Status Dates HERMAN MONCADA Other Provider Active Start: 2024 End: August 24, 2024 Altaf LEON PA Attending Provider Active St art: August 24, 2024 End: August 24, 2024 CAROLYN Fernandez Referring Provider Active St art: August 24, 2024 End: August 24, 2024 Dr. Steph Camacho MD Primary Care Provider Active Start: August 24, 2024 End: August 24, 2024 Team Status: Inactive Member Role/Relationship Status Dates Dr. Steph Camacho MD Primary Care Provider Active Start: September 03, 2024 End: September 03, 2024 Dr. Steph Camacho MD Referring Provider Active Start: September 03, 2024 End: September 03, 2024 CAROLYN Garza Attending Provider Active Star t: September 03, 2024 End: September 03, 2024 Team Status: Inactive Member Role/Relationship Status Dates Dr. Steph Camacho MD Primary Care Provider Active Start: September 03, 2024 End: September 03, 2024 Dr. Que Virgen MD Attending Provider Active S tart: September 03, 2024 End: September 03, 2024 Team Status: Inactive Member Role/Relationship Status Dates No Primary Care Physician Referring Provider Active Start: September 17, 2024 End: September 17, 2024 Dr. Steph Camacho MD Primary Care Provider Active Start: September 17, 2024 End: September 17, 2024 Dr. Steph Camacho MD Attending Provider Active Start: September 17, 2024 End: September 17, 2024 Team Status: Inactive Member Role/Relationship Status Dates Dr. Steph Camacho MD Primary Care Provider Active Start: September 19, 2024 End: September 19, 2024 Dr. Steph Camacho MD Attending Provider Active Start: September 19, 2024 End: September 19, 2024 Dr. Steph Camacho MD Referring Provider Active Start: September 19, 2024 End: September 19, 2024 Team Status: Inactive Member Role/Relationship Status Dates Dr. Steph Camacho MD Primary Care Provider Active Start: September 25, 2024 End: September 25, 2024 Dr. Steph Camacho MD Referring Provider Active Start: September 25, 2024 End: September 25, 2024 Dr. Es Cline DO Attending Provider Activ e Start: September 25, 2024 End: September 25, 2024 Team Status: Inactive Member Role/Relationship Status Dates Dr. Steph Camacho MD Primary Care Provider Active Start: October 06, 2024 End: October 06, 2024 CAROLYN Garza Attending Provider Active Star t: October 06, 2024 End: October 06, 2024 Tia Kumar COMPANY DRIVER, COMPANY DRIVER-C Referring Provider Active St art: October 06, 2024 End: October 06, 2024 Team Status: Inactive Member Role/Relationship Status Dates Dr. Steph Camacho MD Primary Care Provider Active Start: October 09, 2024 End: October 09, 2024 Dr. Steph Camacho MD Referring Provider Active Start: October 09, 2024 End: October 09, 2024 CAROLYN Garza Attending Provider Active Star t: October 09, 2024 End: October 09, 2024 Team Status: Inactive Member Role/Relationship Status Dates Dr. Steph Camacho MD Primary Care Provider Active Start: December 03, 2024 End: December 03, 2024 Dr. Steph Camacho MD Referring Provider Active Start: December 03, 2024 End: December 03, 2024 Afsaneh Snow NP COMPANY DRIVER-C Attending Provider Active Start: December 03, 2024 End: December 03, 2024 Team Status: Inactive Member Role/Relationship Status Dates Dr. Steph Camacho MD Primary Care Provider Active Start: December 03, 2024 End: December 03, 2024 Afsaneh Snow NP COMPANY DRIVER-C Attending Provider Active Start: December 03, 2024 End: December 03, 2024 Afsaneh Snow NP, NP-C Referring Provider Active Start: December 03, 2024 End: December 03, 2024 In File Operator Relationship Specialty Start Date End Date Deon Alfaro [address] [place] [id number] PCP - General 03/25/21 FOR RECORDS PERTAINING [...] BE BASED ON THE PRIMARY CLINICAL RECORDS. [facility]. provides no warranty or guarantee of the accuracy or completeness of information in this document.
[2025-01-06] VITALS (7 sets, daily range): BP systolic 107–133; BP diastolic 63–81; PULSE 86–113; RESP 16–21; TEMP 36.6; O2SAT 97–99
--- NOTE | 2025-01-06 00:07 | RAD_ITS ---
PROCEDURE: CHEST 1 VIEW (PORTABLE) 01/06/2025 REASON FOR EXAM: CHEST PAIN TECHNIQUE: Frontal view of the chest. COMPARISON: 07/10/2024. FINDINGS: The lungs are expanded. There is no demonstrated parenchymal abnormality. There is no demonstrated pleural abnormality. Normal heart and pericardium. Normal mediastinum and vamsi. Normal visualized pulmonary arteries. Normal visualized aortic arch and descending thoracic aorta. Normal visualized thoracic spine. Normal visualized ribs, clavicles, and shoulders. There is no demonstrated abnormality of the visualized soft tissue structures of the upper abdomen. RAD/Chest 1 View (Portable) IMPRESSION: No evidence for acute abnormality. Reading Location: [place]
[2025-01-06 00:14] LABS: Hematocrit 31.8 % (37-47); Hemoglobin 10.9 g/dL (12.0-15.0); Immature Granulocytes Count 0.010 X10^3/uL (0.0-0.0); Mean Corp Hgb Conc 34.3 g/dL (32-36); Mean Corpuscular Volume 85.5 fL (81-99); Mean Platelet Vol. 9.0 fl (6.2-12.0); NRBC Flagged by Analyzer 0 % (0-5); Platelet Count 301 K/mm3 (150-450); RBC Distribution Width CV 13.6 % (11.6-14.6); RBC Distribution Width SD 42.3 fl (35.1-43.9); Red Blood Count 3.72 M/mm3 (4.2-5.4); White Blood Count 4.5 K/mm3 (4.4-11.0)
[2025-01-06 00:30] LABS: Anion Gap 11 (5-15); BUN 13 mg/dL (4-19); BUN/Creat Ratio 18.5 RATIO (10-20); Calcium,Total 9.3 mg/dL (7.6-11.0); Carbon Dioxide 27.1 mmol/L (21.0-32.0); Chloride 105 mmol/L (98-108); Estimated Creatinine Clearance 109.83 ml/min (50-250); Glucose 116 mg/dL (70-99); Potassium 3.9 mmol/L (3.3-5.1); Troponin T High Sensitivity < 6 ng/L (<=14)
--- NOTE | 2025-01-06 00:45 | EDS_ITS ---
HPI History of Present Illness Chief Complaint: Chest Pain Informant: patient and family Narrative Narrative: 34-year-old female states she has a history of heavy menstrual cycles and anemia saying that she just recently had a cycle, she starting another episode of bleeding today which is not the right time, it is not heavy right now though, and she has had 2-3 days of chest tightness without dyspnea, lightheadedness, fatigue, some blurry vision at times, some headaches at times. She tells me that she feels it is related to her anemia. She has an appointment with an DIRECT MARKETING SPECIALIST to be evaluated for hysterectomy. Her mother is here and tells me that she had the same issues and had a partial hysterectomy. The patient states she has never had a blood transfusion. She has iron deficiency, however she cannot tolerate oral iron pills because of severe constipation, however when it comes to parenteral iron, she had an infusion once and it was not recent. She is on no other treatments for anemia. 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Last Taken ?Type ondansetron 4 mg disintegrating 4 mg PO Q6H PRN nausea and 07/10/24 Unknown Rx tablet vomiting #10 tabs desvenlafaxine succinate 50 mg 50 mg PO DAILY #90 tabs 08/22/24 Unknown Rx tablet,extended release 24 hr methocarbamol 500 mg tablet 500 mg PO TID PRN pain/spa sms #60 09/03/24 Unknown Rx tabs dulaglutide 0.75 mg/0.5 mL 0.75 mg subcut QWEEK Unknown History subcutaneous pen injector (Trulicity) omeprazole 40 mg capsule,delayed 40 mg PO BID #60 caps 09/17/24 Unknown Rx release megestrol 20 mg tablet 20 mg PO QDAY 30 days #30 ta bs 12/28/24 Unknown Rx Allergy/AdvReac Type Severity Reaction Status Date / Time amoxicillin (From Augmentin) AdvReac Mild Vomiting Verified 12/03/24 14:50 clavulanic acid (From AdvReac Mild Vomiting Verified 12/03/24 14:50 Augmentin) naproxen AdvReac Other Verified 12/03/24 14:50 varenicline tartrate (From AdvReac Other Verified 12/03/24 14:50 Chantix) Family History Mother Depression Aunt Breast cancer Grandmother Diabetes Uncle Hyperlipemia Menieres disease Depression Grandfather Heart disease Myocardial infarction CVA (cerebral vascular accident) Sister Crohn's disease half sister Down syndrome Aunt Multiple sclerosis Crohn's disease Father Rheumatoid arthritis Brain aneurysm CVA (cerebral vascular accident) Myocardial infarction Brother Bipolar 1 disorder Mentally disabled Other Hypertension Surgical History Status post tubal ligation Status post bilateral salpingectomy History of History of hip surgery H/O adenoidectomy delivery delivered S/P laparoscopic appendectomy (~05/06/18) S/P right knee arthroscopy History of tonsillectomy H/O knee surgery Hx of breast reduction, elective Social History household members: family and children housing: house current occupational status: unemployed Smoking Status: Former smoker quit date: 05/23/11 pack-years: 1 how long ago did patient quit smokin alcohol intake: current alcohol intake frequency: holidays/special occasions only substance use type: does not use caffeine: No what type of physical activity do you participate in: none seatbelt use: always do you feel safe at home: Yes additional social history: Single ROS ROS ED Constitutional Constitutional ED: Reports fatigue and malaise; Denies body ache(s), chills or fever(s) Eyes Eyes: Reports blurry vision; Denies diplopia ENT ENT ED: Denies rhinorrhea or sore throat Cardiovascular Cardiovascular: Reports as per HPI, chest pain, lightheadedness and racing heartbeat; Denies leg edema, radiating jaw, neck or arm pain or syncope Respiratory/Chest Respiratory/Chest: Denies cough or dyspnea Gastrointestinal Gastrointestinal: Denies abdominal pain, diarrhea, melena, nausea or vomiting Genitourinary Genitourinary ED: Reports vaginal bleeding; Denies dysuria or hematuria Musculoskeletal Musculoskeletal: Denies back pain or neck pain Integumentary Denies abscess or rash Neurologic Neurologic: Denies headache(s), paresthesias or weakness Psychiatric Psychiatric: Denies anxiety or suicidal thoughts EXAM Physical Exam Const Vital Signs: 01/05/25 23:27 01/05/25 23:34 01/06/25 00:00 Temperature 98.5 F Temperature Source Oral Pulse Rate 97 Pulse Rate [Lying] Pulse Rate [Sitting (for 1 minute prior to obtaining)] Pulse Rate [Standing (for 1 minute prior to obtaining)] Respiratory Rate 13 Respiratory Effort Normal Blood Pressure 119/70 Blood Pressure [Lying] Blood Pressure [Sitting (for 1 minute prior to obtaining)] Blood Pressure [Standing (for 1 minute prior to obtaining)] Blood Pressure Mean 86 Blood Pressure Mean [Lying] Blood Pressure Mean [Sitting (for 1 minute prior to obtaining)] Blood Pressure Mean [Standing (for 1 minute prior to obtaining)] Pulse Ox 100 Oxygen Delivery Method Room Air Room Air 01/06/25 00:26 01/06/25 01:26 01/06/25 01:56 Temperature Temperature Source Pulse Rate 93 113 H 86 Pulse Rate [Lying] Pulse Rate [Sitting (for 1 minute prior to obtaining)] Pulse Rate [Standing (for 1 minute prior to obtaining)] Respiratory Rate 18 21 H Respiratory Effort Blood Pressure 131/79 H Blood Pressure [Lying] Blood Pressure [Sitting (for 1 minute prior to obtaining)] Blood Pressure [Standing (for 1 minute prior to obtaining)] Blood Pressure Mean 96 Blood Pressure Mean [Lying] Blood Pressure Mean [Sitting (for 1 minute prior to obtaining)] Blood Pressure Mean [Standing (for 1 minute prior to obtaining)] Pulse Ox 99 99 99 Oxygen Delivery Method Room Air Room Air Room Air 01/06/25 02:00 01/06/25 02:02 01/06/25 02:09 Temperature Temperature Source Pulse Rate 89 91 Pulse Rate [Lying] 89 Pulse Rate [Sitting (for 1 minute prior to obtaining)] 88 Pulse Rate [Standing (for 1 minute prior to obtaining)] 102 H Respiratory Rate 19 H 16 Respiratory Effort Blood Pressure 107/63 Blood Pressure [Lying] 131/79 H Blood Pressure [Sitting (for 1 minute prior to obtaining)] 133/77 H Blood Pressure [Standing (for 1 minute prior to obtaining)] 127/81 H Blood Pressure Mean 77 Blood Pressure Mean [Lying] 96 Blood Pressure Mean [Sitting (for 1 minute prior to obtaining)] 95 Blood Pressure Mean [Standing (for 1 minute prior to obtaining)] 96 Pulse Ox 97 Oxygen Delivery Method Room Air Positive well nourished and well developed General Appearance ED: well developed and NAD HEENT Reports moist mucous membranes normocephalic and atraumatic Eyes PERRL and EOMs intact bilaterally Neck full ROM and supple Resp normal respiratory effort and clear to auscultation bilaterally Cardio regular rate, regular rhythm and no murmurs GI non-tender and non-distended Auscultation: normoactive bowel sounds Palpation: soft Speculum Exam - Vagina: vaginal bleeding Back/Spine no CVA tenderness General Back: other FROM Extremity normal to inspection General Extremety ED: Negative for edema, pulses abnormal or tenderness General Extremity: Negative for edema or pulses abnormal Neuro oriented x3, CN's II-XII intact bilaterally and no sensory deficits noted Sensorium / Orientation: awake and alert Motor Exam: strength 5/5 throughout Psych Mood & Affect: anxious Skin no rashes or lesions noted and no wounds MDM MDM MDM Narrative Medical decision making narrative: Patient's hemoglobin is 10.9. This is not far off from where she is at baseline. Given this, as I discussed with the patient my suspicion is that her symptoms are not related to her anemia since they are acute. We did a it is negative she has had a tubal in the past. She has a normal EKG and 2 sequential normal/negative troponins, chest x-ray 1 view on my interpretation is normal, and orthostatics are negative so I do not think she needs IV fluid she does maintain that she has been drinking plenty of fluids lately. As I discussed with her, it is possible that she has a virus that is causing her to feel poorly, especially given her lymphocytosis on her low total white blood co unt. She has no urinary symptoms, we discussed many possibilities and she does not have any of them and she has had UTIs in the past and has known when she has 1 because she has urinary symptoms. Therefore I do not think we need to check a urinalysis. She does have a history of exercise-induced asthma according to her, so I gave her an empiric albuterol nebulizer to see if that helped her chest tightness. It did not. She was amenable to trying a GI cocktail to treat possible esophageal etiologies, but did not want to wait to see if it helped and wanted to leave which I am fine with. She is planning on following up with her FEED INSPECTION SUPERVISOR which I think is reasonable. Lab Data Attestation: I reviewed the patient's lab results. Labs: Laboratory Results - last 24 hr 01/05/25 01/06/25 23:50 01:51 WBC 4.5 RBC 3.72 L Hgb 10.9 L Hct 31.8 L MCV 85.5 MCH 29.3 MCHC 34.3 RDW Std Deviation 42.3 RDW Coeff of Ever 13.6 Plt Count 301 MPV 9.0 Immature Gran % (Auto) 0.200 Neut % (Auto) 41.9 L Lymph % (Auto) 48.0 H Coffey % (Auto) 8.8 Eos % (Auto) 0.4 Baso % (Auto) 0.7 Absolute Neuts (auto) 1.9 L Absolute Lymphs (auto) 2.17 Nucleated RBC % 0 Sodium 142 Potassium 3.9 Chloride 105 Carbon Dioxide 27.1 Anion Gap 11 BUN 13 Creatinine 0.69 L Estim Creat Clear Calc 109.83 Est GFR (MDRD) Non-Af 117 BUN/Creatinine Ratio 18.5 Glucose 116 H Calcium 9.3 Troponin T High Sens < 6 Troponin T Hi Sens 2 Hr < 6 Serum , Qual NEGATIVE Radiography Diagnostic Testing: Clinical Impression(s) from Imaging Studies Chest X-Ray 01/06/25 00:07 IMPRESSION: No evidence for acute abnormality. Reading Location: [place] [address] Rhythm Strip Rhythm Strip: Sinus Rhythm Rate: 90 Ectopy: None EKG Initial EKG: Attestation: I personally reviewed and interpreted this EKG as follows: Interpretation: Sinus Rhythm and No Acute Injury Pattern Comments: Nml axis & intervals; nml EKG Discharge Plan Triage Chief Complaint: Chest Pain ED Provider: Hernán Alex Dx/Rx/DC Orders Clinical Impression: Chest tightness, Fatigue, Intermittent lightheadedness, Anemia, normocytic normochromic, Menorrhagia, Bleeding, uterine, dysfunctional Instructions: Anemia, ED Weakness Uncertain Cause Prescriptions: No Action Trulicity 0.75 mg/0.5 mL pen injector 0.75 mg subcut QWEEK omeprazole 40 mg capsule,delayed release(DR/EC) 40 mg PO BID Qty: 60 2RF desvenlafaxine succinate 50 mg tablet extended release 24 hr 50 mg PO DAILY Qty: 90 0RF methocarbamol 500 mg tablet 500 mg PO TID PRN (Reason: pain/spasms) Qty: 60 0RF ondansetron 4 mg tablet,disintegrating 4 mg PO Q6H PRN (Reason: nausea and vomiting) Qty: 10 0RF megestrol 20 mg tablet 20 mg PO QDAY 30 Days Qty: 30 0RF Primary Care Provider: Hina Camacho Referrals: Hina Camacho MD [Primary Care Provider] - 1 Week if not improving Print Language: [place] Disposition Disposition: Home, Self Care
[2025-01-06 01:08] LABS: Internal QC Validated? YES +Cl - CLEAR BKGD; Pregnancy, Serum, hCG Quali. NEGATIVE Negative; Record Kit Lot#, Serum Preg. 0000962302
[2025-01-06] MEDS: Albuterol 2.5 MG/3 ML VIAL.NEB. INHALATION (02:08)
[2025-01-06 02:16] LABS: Troponin T High Sens 2 HR < 6 ng/L (<=14)
[2025-01-06] MEDS: Lidocaine 2% Viscous15 ML UDC 15 ML PO (02:46)
== END 2025-01-06 02:51 | disposition home or self-care (01) ==
PROVIDERS: Emergency Provider Emergency Medicine; PCP Internal Medicine; Visit Provider Emergency Medicine
DX: R07.89 Other chest pain (principal); I10 Essential (primary) hypertension; Z87.891 Personal history of nicotine dependence; N92.0 Excessive and frequent menstruation with regular cycle; E61.1 Iron deficiency; N93.8 Other specified abnormal uterine and vaginal bleeding; R53.83 Other fatigue; R42 Dizziness and giddiness; E78.00 Pure hypercholesterolemia, unspecified; K21.9 Gastro-esophageal reflux disease without esophagitis; Z79.899 Other long term (current) drug therapy; Z98.51 Tubal ligation status; Z90.49 Acquired absence of other specified parts of digestive tract
CPT/HCPCS: 71045; 80048; 84484; 84703; 85025; 93005; 94640; 99285; A4216

== ENCOUNTER → 2025-01-11 | Outpatient (CLI) | payer MEDICARE, MEDICAID, SELFPAY ==
[2025-01-11 16:46] LABS: Hematocrit 36.2 % (37-47); Hemoglobin 12.3 g/dL (12.0-15.0); Mean Corp Hgb Conc 34.0 g/dL (32-36); Mean Corpuscular Volume 86.2 fL (81-99); Mean Platelet Vol. 9.2 fl (6.2-12.0); Platelet Count 356 K/mm3 (150-450); RBC Distribution Width CV 13.4 % (11.6-14.6); RBC Distribution Width SD 41.6 fl (35.1-43.9); Red Blood Count 4.20 M/mm3 (4.2-5.4); White Blood Count 5.8 K/mm3 (4.4-11.0)
== END | disposition home or self-care (01) ==
LOC: BWCLAB 15:14
PROVIDERS: PCP Internal Medicine; Visit Provider Obstetrics & Gynecology
DX: D64.9 Anemia, unspecified (principal); R53.83 Other fatigue; N93.8 Other specified abnormal uterine and vaginal bleeding; N92.0 Excessive and frequent menstruation with regular cycle
CPT/HCPCS: 36415; 84443; 85027

== ENCOUNTER → 2025-01-23 | Outpatient (CLI) | payer MEDICARE, MEDICAID, SELFPAY ==
--- NOTE | 2025-01-23 12:51 | US_ITS ---
PROCEDURE: PELVIC W/ TRANSVAGINAL REASON FOR EXAM: MENORRHAGIA HPV. TECHNIQUE: Procedure Code: [id number] Modality: US Procedure: PELVIC W/ TRANSVAGINAL COMPARISON: None FINDINGS: LMP: December 18, 2024 Measurements: Uterus: 7.9 cm x 5.6 cm x 3.8 cm with a volume of 89.7 mL Endometrial Thickness: 10.2 mm. It is trilaminar. Right Ovary: 4.5 cm x 3.8 cm x 3.2 cm with a volume of 27.87 mL. Left Ovary: 3 cm x 2 cm x 1.7 cm with a volume of 5.26 mL. TRANSABDOMINAL: Uterus: Heterogeneous appearance of the myometrium suggestive of fibroid change. In the lower uterine segment, there is a 4 mm x 5 mm x 3 mm isoechoic density with fluid. This may represent the degenerating fibroid. Endometrium: Unremarkable. Right ovary: 3.6 cm 3.5 cm 2.6 cm cyst. Left ovary: Normal size and echotexture. Other: No large pelvic mass identified. Transvaginal sonography was performed to better visualize the endometrium. TRANSVAGINAL: Uterus: Anteverted. Heterogeneous appearance suggestive of fibroid change. Questionable tiny fibroid in the lower uterine segment. Nabothian cyst. Endometrium: Normal echotexture. Right ovary: 3.6 cm 3.5 cm 2.6 cm cyst. Left ovary: Normal size and echotexture. Other adnexal findings: None. Cul-de-sac: No free intraperitoneal fluid identified. Tenderness: No tenderness US/Pelvic w/ Transvaginal IMPRESSION: Left ovarian cyst. Fibroid uterus. Reading Location: [place] [address]
== END | disposition home or self-care (01) ==
LOC: US 12:49
PROVIDERS: PCP Internal Medicine; Referring Provider Obstetrics & Gynecology; Visit Provider Obstetrics & Gynecology
DX: N93.8 Other specified abnormal uterine and vaginal bleeding (principal); D64.9 Anemia, unspecified; N92.0 Excessive and frequent menstruation with regular cycle
CPT/HCPCS: 76830; 76856

== ENCOUNTER 2025-01-25 10:52 | Outpatient (CLI) | payer MEDICARE, MEDICAID, SELFPAY ==
[2025-01-25] MEDS: Iron Sucrose Complex 300 MG in 0.9% Normal Saline (250mL Bag) 250 ML 177 MG IV (11:28)
[2025-01-25] MEDS: 0.9% NaCl IVPB Med Flush (100mL) 15 ML IV (11:29)
[2025-01-25] MEDS: 0.9% NaCl Peripheral Flush Adult IV (11:30)
[2025-01-25 11:33] VITALS: BP 108/64; PULSE 81; RESP 16; TEMP 35.8; O2SAT 100; BMI 31.1
[2025-01-25 13:12] VITALS: BP 123/69; PULSE 82; RESP 16; TEMP 36.1; O2SAT 100
== END 2025-01-25 23:59 | disposition home or self-care (01) ==
LOC: MEDOUTP 10:53
PROVIDERS: PCP Internal Medicine; Referring Provider Obstetrics & Gynecology; Visit Provider Obstetrics & Gynecology
DX: D64.9 Anemia, unspecified (principal)
CPT/HCPCS: 96365; 96366; J1756; A4216

== ENCOUNTER 2025-01-31 11:18 | Outpatient (CLI) | payer MEDICARE, MEDICAID, SELFPAY ==
[2025-01-31 11:33] VITALS: BP 110/60; PULSE 79; RESP 16; TEMP 36.2; O2SAT 98
[2025-01-31] MEDS: Iron Sucrose Complex (Venofer) 300 MG in 0.9% NaCl 250 ML 176.7 MG IV (11:53)
[2025-01-31] MEDS: 0.9% NaCl IVPB Med Flush (100mL) 15 ML IV (11:56)
[2025-01-31 13:49] VITALS: BP 107/64; PULSE 88; RESP 16
== END 2025-01-31 23:59 | disposition home or self-care (01) ==
LOC: MEDOUTP 11:19
PROVIDERS: PCP Internal Medicine; Referring Provider Obstetrics & Gynecology; Visit Provider Obstetrics & Gynecology
DX: D64.9 Anemia, unspecified (principal)
CPT/HCPCS: 96365; 96366; J1756; A4216

== ENCOUNTER 2025-02-08 09:24 | Outpatient (CLI) | payer MEDICARE, MEDICAID, SELFPAY ==
[2025-02-08 09:40] VITALS: BP 104/70; PULSE 85; RESP 16; TEMP 36.4; O2SAT 99; BMI 31.1
[2025-02-08] MEDS: 0.9% NaCl Peripheral Flush Adult IV (09:44)
[2025-02-08] MEDS: 0.9% NaCl IVPB Med Flush (100mL) 15 ML IV (09:44)
[2025-02-08] MEDS: Iron Sucrose Complex (Venofer) 300 MG in 0.9% NaCl 250 ML 176.7 MG IV (09:44)
[2025-02-08 11:37] VITALS: BP 128/65; PULSE 74
== END 2025-02-08 23:59 | disposition home or self-care (01) ==
LOC: MEDOUTP 09:24
PROVIDERS: PCP Internal Medicine; Referring Provider Obstetrics & Gynecology; Visit Provider Obstetrics & Gynecology
DX: D64.9 Anemia, unspecified (principal)
CPT/HCPCS: 96365; 96366; J1756; A4216

== ENCOUNTER → 2025-02-11 | Outpatient (CLI) | payer MEDICARE, MEDICAID, SELFPAY ==
--- NOTE | 2025-02-11 | EMB_PTH ---
PATIENT: COLLIN APARICIO LOC: [facility] U#:[id number] AGE/SX: 34/F ROOM: RE02/11/[address]: Dr. Es Cline DO : 1990 BED: DIS: 02/11/2025 SPEC #: [id number] RECD: 02/11/25 15:54 STATUS: FRANCESCA REJessica #: [id number] DANIELLE: 02/11/25 00:[address]: Es Cline DEPT: SURGICAL PATHOLOGY RECD BY: Ravi Kapadia ENTERED: 02/12/25 10:38 SP TYPE: ENDOM BX/C MADHU DR: Dr. Hina Camacho MD Tissues: A - Endometrium, NOS Procedures: Surgery Specimen Level IV HEADER OPERATION: Endometrial biopsy PRE-OP DIAGNOSIS: Endometrial bleeding, abnormal uterine bleeding TISSUE SUBMITTED: A- Endometrial tissue MICROSCOPIC DIAGNOSIS A. Endometrium, biopsy: * Proliferative endometrium with progestin effect. MICROSCOPIC DESCRIPTION Slides are reviewed. GROSS DESCRIPTION A. Received in formalin labeled the patient's name and date of is a 2.3 x 0.5 x 0.1 cm aggregate of miller tissue fragments. Entirely submitted in 1 cassette. LA 02/12/2025 CPT:81940
[2025-02-11 15:47] LABS: Hematocrit 34.9 % (37-47); Hemoglobin 11.9 g/dL (12.0-15.0); Mean Corp Hgb Conc 34.1 g/dL (32-36); Mean Corpuscular Volume 88.1 fL (81-99); Mean Platelet Vol. 9.0 fl (6.2-12.0); Platelet Count 333 K/mm3 (150-450); RBC Distribution Width CV 14.1 % (11.6-14.6); RBC Distribution Width SD 45.2 fl (35.1-43.9); Red Blood Count 3.96 M/mm3 (4.2-5.4); White Blood Count 5.1 K/mm3 (4.4-11.0)
== END | disposition home or self-care (01) ==
PROVIDERS: PCP Internal Medicine; Referring Provider Obstetrics & Gynecology; Visit Provider Obstetrics & Gynecology
DX: N93.9 Abnormal uterine and vaginal bleeding, unspecified (principal)
CPT/HCPCS: 36415; 85027; 88305

== ENCOUNTER 2025-03-19 08:45 | Day surgery (SDC) | payer MEDICARE, MEDICAID, SELFPAY ==
--- NOTE | 2025-03-07 11:19 | PAT.ANE_ITS ---
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 When Was Last Pacemaker Check QUESTION #4 FULL TEXT: You/Your Family Experience fever (hyperthermia) with Anesthesia Last Oral Intake Last Oral intake: Last Oral Intake NPO since Meds taken in AM with sips of water? Meds patient instructed to take am of surgery PONV PONV - core drilling supervisor: PONV - core drilling supervisor Female Yes 03/07/25 11:11 HX of Motion Sickness No 03/07/25 11:11 HX of N/V After Surgery No 03/07/25 11:11 Non-Smoker Yes 03/07/25 11:11 Duration of Surgery greater No 03/07/25 11:11 than 60 minutes Number of Risk Factors 2 03/07/25 11:11 PONV Score Moderate Risk 03/07/25 11:11 Height & Weight Height & Weight: Anesthesia: Height & Weight Height 5 ft 1 in 02/11/25 13:31 Respiratory Assessment Respiratory Assessment - core drilling supervisor: Respiratory Tract Infection Hx - core drilling supervisor Hx Respiratory Tract Infection No 03/07/25 11:11 STOP Sleep Apnea STOP Sleep Apnea - core drilling supervisor: STOP Sleep Apnea - core drilling supervisor Hx Hypertension Yes: WITH ONLY/NO 03/07/25 11:11 MEDS Hx Sleep Apnea No: NO MACHINE REQUIRED AT 03/07/25 11:11 THIS TIME, WEIGHT LOSS CPAP No 03/07/25 11:11 BIPAP No 03/07/25 11:11 Do you snore loudly (louder No 03/07/25 11:11 than talking or can be heard Do you often feel tired/ No 03/07/25 11:11 fatigued/ sleepy during daytime? Has anyone observed you stop No 03/07/25 11:11 breathing during sleep? STOP Results Negative 03/07/25 11:11 QUESTION #5 FULL TEXT : Do you snore loudly (louder than talking or can be heard through closed doors)? 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 Specify any problems Hx of Preganancy in last 3 No 03/07/25 11:11 Months Nurse Filling Out Transfusion VCHRISTIN 03/07/25 11:11 & Questions: Date: 03/07/25 03/07/25 11:11 Time: 11:13 03/07/25 11:11 Patient unable to answer at this time (ie. 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 Leg cramping Positive TB test History of gestational diabetes Maxillary sinusitis Effusion, left knee PTSD (post-traumatic stress disorder) Low iron Back pain Migraine headache History of IBS Sleep apnea Asthma Shortness of breath on exertion Leg cramps Hypertension Adopted ASCUS with positive high risk HPV Pelvic pain Hypersomnia Rectal bleeding Anxiety and depression Spontaneous HPV test positive Acute appendicitis GERD (gastroesophageal reflux disease) Irregular periods Obesity Scoliosis IBS (irritable bowel syndrome) Chronic back pain Preeclampsia Home Medications ?Medication ?Instructions ?Recorded ?Last Taken ?Type desvenlafaxine succinate 50 mg 50 mg PO DAILY #90 tabs 08/22/24 Unknown Rx tablet,extended release 24 hr polyethylene glycol 3350 17 4 g PO QODAY 01/11/25 Unkn own History gram/dose oral powder (Miralax) ondansetron 4 mg disintegrating 4 mg PO Q6H PRN nausea and 02/11/25 Unknown Rx tablet vomiting #30 tabs medroxyprogesterone 5 mg tablet 5 mg PO QDAY 60 days # 60 tabs 02/13/25 Unknown Rx cyclobenzaprine 5 mg tablet 5 mg PO TID PRN muscle spa sm #30 02/18/25 Unknown Rx tabs cholecalciferol (vitamin D3) 50 50 mcg PO QDAY 5 Unknown History mcg (2,000 unit) capsule albuterol sulfate 2.5 mg/3 mL 1 mg inhalation Q4H PRN PRN 03/07/25 Unknown History (0.083 %) solution for nebulization wheezing albuterol sulfate 90 mcg/actuation 2 puff inhalation Q 4H PRN PRN 03/07/25 Unknown History aerosol inhaler wheezing dulaglutide 3 mg/0.5 mL 3 mg subcut QWEEK 03/07/25 1 History subcutaneous pen injector (Trulicity) omeprazole 40 mg capsule,delayed 20 mg PO BID 03/07/25 Unknown History release Allergy/AdvReac Type Severity Reaction Status Date / Time megestrol (From Megace) AdvReac Intermediate chest pain Verified 03/07/25 10:58 amoxicillin (From Augmentin) AdvReac Mild Vomiting Verified 03/07/25 10:58 clavulanic acid (From AdvReac Mild Vomiting Verified 03/07/25 10:58 Augmentin) naproxen AdvReac Other Verified 03/07/25 10:58 varenicline tartrate (From AdvReac Other Verified 03/07/25 10:58 Chantix) Family History Mother Depression Aunt Breast cancer Grandmother Diabetes Uncle Hyperlipemia Menieres disease Depression Grandfather Heart disease Myocardial infarction CVA (cerebral vascular accident) Sister Crohn's disease half sister Down syndrome Aunt Multiple sclerosis Crohn's disease Father Rheumatoid arthritis Brain aneurysm CVA (cerebral vascular accident) Myocardial infarction Brother Bipolar 1 disorder Mentally disabled Other Hypertension Surgical History (Updated 03/07/25 @ 11:11 by Joan Ramirez) History of esophagogastroduodenoscopy (EGD) Status post tubal ligation Status post bilateral salpingectomy History of History of hip surgery H/O adenoidectomy delivery delivered S/P laparoscopic appendectomy (~05/06/18) S/P right knee arthroscopy History of tonsillectomy H/O knee surgery Hx of breast reduction, elective Social History household members: family and children housing: house current occupational status: unemployed Smoking Status: Former smoker quit date: 05/23/11 pack-years: 1 how long ago did patient quit smokin alcohol intake: current alcohol intake frequency: holidays/special occasions only substance use type: does not use caffeine: No what type of physical activity do you participate in: none seatbelt use: always do you feel safe at home: Yes additional social history: Single Audit: Pertinent Findings Pertinent Findings EKG Perinent findings: EKG January 05, 2025. Normal sinus rhythm. Recommendation Anesthesia Recommendation Anesthesia recommendation: OPTIMIZED for anesthesia
[2025-03-13 10:00] LABS: Hematocrit 36.3 % (37-47); Hemoglobin 12.4 g/dL (12.0-15.0); Mean Corp Hgb Conc 34.2 g/dL (32-36); Mean Corpuscular Volume 87.9 fL (81-99); Mean Platelet Vol. 8.7 fl (6.2-12.0); Platelet Count 384 K/mm3 (150-450); RBC Distribution Width CV 12.6 % (11.6-14.6); RBC Distribution Width SD 40.6 fl (35.1-43.9); Red Blood Count 4.13 M/mm3 (4.2-5.4); White Blood Count 5.1 K/mm3 (4.4-11.0)
[2025-03-13 10:36] LABS: Magnesium 2.0 mg/dL (1.5-2.2)
[2025-03-19] VITALS (14 sets, daily range): BP systolic 110–127; BP diastolic 64–75; PULSE 68–96; RESP 16–18; TEMP 36.4–37.4; O2SAT 100; BMI 33.0
[2025-03-19] MEDS: Scopolamine 1mg/72hr Patch 1 PATCH TD (09:31)
[2025-03-19] MEDS: Magnesium 1 GM over 15 mins IV (09:32)
[2025-03-19] MEDS: Gentamicin 300 MG in Dextrose 5%-Water (50mL Bag) 50 ML 100 MG IV (09:32)
[2025-03-19] MEDS: Lactated Ringers 1,000 ML 40 ML IV (09:34)
--- NOTE | 2025-03-19 10:13 | PCM.PRE.AN2 ---
ASA Classification* ASA Classification ASA Classification: 2 Assessment & Plan Anesthesia* Anesthesia Assessment Anesthesia Assessment: Discussed sedation and/or anesthesia options, risks, benefits, and alternatives with patient/parents/legal guardian/POA. Questions invited. The patient/parents/legal guardian/POA seems to understand and agrees to proceed with anesthesia plan. Reviewed the physical assessment, medical history, allergy history and patient home medications list prior to surgery/procedure/anesthetic and documented any changes. Performed airway and anesthesia risk assessments. Anesthesia Type Anesthesia Type: General and MAC History Source History Obtained from:: Patient and Chart Anesthesia Focused Assessment* Temperature: 99.4 F Pulse Rate: 89 Blood Pressure: 111/67 Respiratory Rate: 16 Pulse Ox: 100 Oxygen Delivery Method: Room Air Airway Assessment Mouth opens: >3 cm Mallampati Score: II Teeth Condition: Intact Neck Range of motion (ROM): Full ROM Labs Anesthesia Preop lab: CBC WBC, (4.4-11.0) 5.1 K/mm3 03/13/25, :24 RBC, (4.2-5.4) 4.13 M/mm3 L 03/13/25, :24 Hgb, (12.0-15.0) 12.4 g/dL 03/13/25, :24 Hct, (37-47) 36.3 % L 03/13/25, :24 Plt Count, (150-450) 384 K/mm3 03/13/25, 09:24 CHEMISTRY Potassium, (3.3-5.1) 3.9 mmol/L 01/05/25, 23:50 Sodium, (133-145) 142 mmol/L 01/05/25, 23:50 Magnesium, (1.5-2.2) 2.0 mg/dL 03/13/25, 09:24 BUN, (4-19) 13 mg/dL 01/05/25, 23:50 Creatinine, (0.70-1.20) 0.69 mg/dL L 01/05/25, 23:50 Glucose, (70-99) 116 mg/dL H 01/05/25, 23:50 POC Glucose, (74-106) 79 mg/dL Today, 09:25 TSH, (0.300-4.200) 0.438 uIU/mL 01/11/25, 15:14 COAG PT, (11.7-14.9) 12.5 SECONDS 01/31/20, 16:50 HCG, Quant, (1-3) < 1 mIU/mL 05/25/21, 12:34 Urine Test Negative Negative 09/07/22, 11:30 Tst Clinic Negative 07/08/22, 10:04 Pre-Assessment Diagnosis/Proposed Procedure Planned Operative Procedure(s): Lap Total Robotic Hysterectomy, Cystoscopy Anesthesia History 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 When Was Last Pacemaker Check QUESTION #4 FULL TEXT: You/Your Family Experience fever (hyperthermia) with Anesthesia Last Oral Intake Last Oral intake: Last Oral Intake NPO since 06:30 03/19/25 09:12 Meds taken in AM with sips of Yes 03/19/25 09:12 water? Meds patient instructed to take am of surgery PONV PONV - customs brokerage manager: PONV - customs brokerage manager Female Yes 03/07/25 11:11 HX of Motion Sickness No 03/07/25 11:11 HX of N/V After Surgery No 03/07/25 11:11 Non-Smoker Yes 03/07/25 11:11 Duration of Surgery greater No 03/07/25 11:11 than 60 minutes Number of Risk Factors 2 03/07/25 11:11 PONV Score Moderate Risk 03/07/25 11:11 Height & Weight Height & Weight: Anesthesia: Height & Weight Height 5 ft 1 in 03/19/25 09:12 Weight: 79.2 kg 03/19/25 09:12 Body Mass Index (BMI) 33.0 03/19/25 09:12 Respiratory Assessment Respiratory Assessment - customs brokerage manager: Respiratory Tract Infection Hx - customs brokerage manager Hx Respiratory Tract Infection No 03/07/25 11:11 STOP Sleep Apnea STOP Sleep Apnea - customs brokerage manager: STOP Sleep Apnea - customs brokerage manager Hx Hypertension Yes: WITH ONLY/NO 03/07/25 11:11 MEDS Hx Sleep Apnea No: NO MACHINE REQUIRED AT 03/07/25 11:11 THIS TIME, WEIGHT LOSS CPAP No 03/07/25 11:11 BIPAP No 03/07/25 11:11 Do you snore loudly (louder No 03/07/25 11:11 than talking or can be heard Do you often feel tired/ No 03/07/25 11:11 fatigued/ sleepy during daytime? Has anyone observed you stop No 03/07/25 11:11 breathing during sleep? STOP Results Negative 03/07/25 11:11 QUESTION #5 FULL TEXT : Do you snore loudly (louder than talking or can be heard through closed doors)? 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 Specify any problems Hx of Preganancy in last 3 No 03/07/25 11:11 Months Nurse Filling Out Transfusion VCHRISTIN 03/07/25 11:11 & Questions: Date: 03/07/25 03/07/25 11:11 Time: 11:13 03/07/25 11:11 Patient unable to answer at this time (ie. confused, unrespo /Reproduction History /Reproductive History - customs brokerage manager: /Reproductive Hx- customs brokerage manager Hx Now No 03/07/25 11:11 Gestational Age (in weeks): EDC: Hx Hx Para Hx Section SAB No 03/13/25 10:58 Active Medications Active Medications: Current Medications Generic Name Dose Route Start Last Admin Trade Name Freq PRN Reason Stop Dose Admin Acetaminophen 1,000 mg 03/19/25 10:45 03/19/25 09:33 Acetaminophen 500 Mg Tablet PO 03/19/25 10:46 1,000 mg PREOP ONE Administration Celecoxib 400 mg 03/19/25 10:45 03/19/25 09:33 Celecoxib 200 Mg Capsule PO 03/19/25 10:46 400 mg PREOP ONE Administration Gabapentin 600 mg 03/19/25 10:45 03/19/25 09:33 Gabapentin 600 Mg Tablet PO 03/19/25 10:46 600 mg PREOP ONE Administration Lactated Ringer's 1,000 mls @ 40 mls/hr 03/19/25 10:45 03/19/25 09:34 IV 40 mls/hr .Q25H WALTER Administration Clindamycin Phosphate 900 mg in 50 mls @ 75 mls/hr 03/19/25 10:45 Cleocin IV 03/19/25 11:24 INTRAOP ONE Gentamicin Sulfate 300 mg/ 57.5 mls @ 100 mls/hr 03/19/25 10:45 03/19/25 09:32 Dextrose IV 03/19/25 11:19 100 mls/hr INTRAOP ONE Administration Lactated Ringer's 1,000 mls @ 70 mls/hr 03/19/25 10:45 IV .[id number] WALTER Magnesium Sulfate 1 gm/ 102 mls @ 408 mls/hr 03/19/25 10:45 03/19/25 09:32 Dextrose IV 03/19/25 10:59 408 mls/hr PREOP ONE Administration Insulin Human Lispro 0 unit 03/19/25 10:45 Insulin Lispro 100 Unit/Ml Insuln.Pen SC Q4H PRN PRN BG >/= 180, SEE PROTOCOL Protocol Ondansetron HCl 4 mg 03/19/25 10:45 Ondansetron 4 Mg/2 Ml Vial IV 03/19/25 10:46 INTRAOP ONE Phenazopyridine HCl 190 mg 03/19/25 10:45 03/19/25 09:33 Phenazopyridine 95 Mg Tablet PO 03/19/25 10:46 190 mg PREOP ONE Administration Scopolamine HBr 1 patch 03/19/25 10:45 03/19/25 09:31 Scopolamine 1mg/72hr Patch TD 03/19/25 10:46 1 patch PREOP ONE Administration PFSH Medical History Delayed gastric emptying Anxiety Arthritis High cholesterol Former smoker 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 Leg cramping Positive TB test History of gestational diabetes Maxillary sinusitis Effusion, left knee PTSD (post-traumatic stress disorder) Low iron Back pain Migraine headache History of IBS Sleep apnea Asthma Shortness of breath on exertion Leg cramps Hypertension Adopted ASCUS with positive high risk HPV Pelvic pain Hypersomnia Rectal bleeding Anxiety and depression Spontaneous HPV test positive Acute appendicitis GERD (gastroesophageal reflux disease) Irregular periods Obesity Scoliosis IBS (irritable bowel syndrome) Chronic back pain Preeclampsia Home Medications ?Medication ?Instructions ?Recorded ?Last Taken ?Type desvenlafaxine succinate 50 mg 50 mg PO DAILY #90 tabs 08/22/24 Unknown Rx tablet,extended release 24 hr polyethylene glycol 3350 17 4 g PO QODAY 01/11/25 Unknown History gram/dose oral powder (Miralax) ondansetron 4 mg disintegrating 4 mg PO Q6H PRN nausea and 02/11/25 Unknown Rx tablet vomiting #30 tabs medroxyprogesterone 5 mg tablet 5 mg PO QDAY 60 days #60 tabs 02/13/25 Unknown Rx albuterol sulfate 2.5 mg/3 mL 1 mg inhalation Q4H PRN PRN 03/07/25 Unknown History (0.083 %) solution for nebulization wheezing albuterol sulfate 90 mcg/actuation 2 puff inhalation Q4H PRN PRN 03/07/25 Unknown History aerosol inhaler wheezing dulaglutide 3 mg/0.5 mL 3 mg subcut QWEEK 03/07/25 03/07/25 History subcutaneous pen injector (Trulicity) omeprazole 40 mg capsule,delayed 20 mg PO BID 03/07/25 03/19/25 06:30 History release Allergy/AdvReac Type Severity Reaction Status Date / Time megestrol (From Megace) AdvReac Intermediate chest pain Verified 03/19/25 09:05 amoxicillin (From Augmentin) AdvReac Mild Vomiting Verified 03/19/25 09:05 clavulanic acid (From AdvReac Mild Vomiting Verified 03/19/25 09:05 Augmentin) naproxen AdvReac Other Verified 03/19/25 09:05 varenicline tartrate (From AdvReac Other Verified 03/19/25 09:05 Chantix) Family History Mother Depression Aunt Breast cancer Grandmother Diabetes Uncle Hyperlipemia Menieres disease Depression Grandfather Heart disease Myocardial infarction CVA (cerebral vascular accident) Sister Crohn's disease half sister Down syndrome Aunt Multiple sclerosis Crohn's disease Father Rheumatoid arthritis Brain aneurysm CVA (cerebral vascular accident) Myocardial infarction Brother Bipolar 1 disorder Mentally disabled Other Hypertension Surgical History History of esophagogastroduodenoscopy (EGD) Status post tubal ligation Status post bilateral salpingectomy History of History of hip surgery H/O adenoidectomy delivery delivered S/P laparoscopic appendectomy (~05/06/18) S/P right knee arthroscopy History of tonsillectomy H/O knee surgery Hx of breast reduction, elective Social History household members: family and children housing: house current occupational status: unemployed Smoking Status: Former smoker quit date: 05/23/11 pack-years: 1 how long ago did patient quit smokin alcohol intake: current alcohol intake frequency: holidays/special occasions only substance use type: does not use caffeine: No what type of physical activity do you participate in: none seatbelt use: always do you feel safe at home: Yes additional social history: Single Review of Systems (Anesthesia) ROS Narrative System reviewed and no additional complaints, except as documented.
--- NOTE | 2025-03-19 10:18 | PCM.HP.BLA ---
History and Physical Date of Admission: 03/19/25 Intake Vital Signs 02/11/2513:31 03/13/2510:56 03/13/2510:58 Height 5 ft 1 in 5 ft 1 in 5 ft 1 in Weight: 172 lb 6 oz BMI 32.5 BP 116/74 Intake Visit Reasons: TRH cysto Nurse Emergency Required: No Is patient in pain?: No Allergies megestrol (From Megace) Adverse Reaction (Intermediate, Verified 03/13/25 10:56) chest pain amoxicillin (From Augmentin) Adverse Reaction (Mild, Verified 03/13/25 10:56) Vomiting clavulanic acid (From Augmentin) Adverse Reaction (Mild, Verified 03/13/25 10:56) Vomiting naproxen Adverse Reaction (Verified 03/13/25 10:56) Other varenicline tartrate (From Chantix) Adverse Reaction (Verified 03/13/25 10:56) Other Medications ?Medication ?Instructions ?Recorded ?Confirmed ?Type desvenlafaxine succinate 50 mg 50 mg PO DAILY #90 tabs 08/22/24 03/13/25 Rx tablet,extended release 24 hr polyethylene glycol 3350 17 4 g PO QODAY 01/11/25 03/13/25 History gram/dose oral powder (Miralax) ondansetron 4 mg disintegrating 4 mg PO Q6H PRN nausea and 02/11/25 03/13/25 Rx tablet vomiting #30 tabs medroxyprogesterone 5 mg tablet 5 mg PO QDAY 60 days #60 tabs 02/13/25 03/13/25 Rx albuterol sulfate 2.5 mg/3 mL 1 mg inhalation Q4H PRN PRN 03/07/25 03/13/25 History (0.083 %) solution for nebulization wheezing albuterol sulfate 90 mcg/actuation 2 puff inhalation Q4H PRN PRN 03/07/25 03/13/25 History aerosol inhaler wheezing dulaglutide 3 mg/0.5 mL 3 mg subcut QWEEK 03/07/25 03/13/25 History subcutaneous pen injector (Trulicity) omeprazole 40 mg capsule,delayed 20 mg PO BID 03/07/25 03/13/25 History release Post menopausal: No Patient : No : No PFSH Medical History Delayed gastric emptying Anxiety Arthritis High cholesterol Former smoker 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 Leg cramping Positive TB test History of gestational diabetes Maxillary sinusitis Effusion, left knee PTSD (post-traumatic stress disorder) Low iron Back pain Migraine headache History of IBS Sleep apnea Asthma Shortness of breath on exertion Leg cramps Hypertension Adopted ASCUS with positive high risk HPV Pelvic pain Hypersomnia Rectal bleeding Anxiety and depression Spontaneous HPV test positive Acute appendicitis GERD (gastroesophageal reflux disease) Irregular periods Obesity Scoliosis IBS (irritable bowel syndrome) Chronic back pain Preeclampsia Surgical History History of esophagogastroduodenoscopy (EGD) Status post tubal ligation Status post bilateral salpingectomy History of History of hip surgery H/O adenoidectomy delivery delivered S/P laparoscopic appendectomy (~05/06/18) S/P right knee arthroscopy History of tonsillectomy H/O knee surgery Hx of breast reduction, elective Family History Mother Depression Aunt Breast cancer Grandmother Diabetes Uncle Hyperlipemia Menieres disease Depression Grandfather Heart disease Myocardial infarction CVA (cerebral vascular accident) Sister Crohn's disease half sister Down syndrome Aunt Multiple sclerosis Crohn's disease Father Rheumatoid arthritis Brain aneurysm CVA (cerebral vascular accident) Myocardial infarction Brother Bipolar 1 disorder Mentally disabled Other Hypertension Social History household members: family and children housing: house current occupational status: unemployed Smoking Status: Former smoker quit date: 05/23/11 pack-years: 1 how long ago did patient quit smokin alcohol intake: current alcohol intake frequency: holidays/special occasions only substance use type: does not use caffeine: No what type of physical activity do you participate in: none seatbelt use: always do you feel safe at home: Yes additional social history: Single HPI TRH cysto Details: COLLIN APARICIO is a 34 year old ( sections) who presents for preop exam for a scheduled hysterectomy. She has been bleeding on and off heavily for several weeks. She continues to use a low dose progesterone to keep menses light until surgery. Ultrasound shows the following: FINDINGS: LMP: December 18, 2024 Measurements: Uterus: 7.9 cm x 5.6 cm x 3.8 cm with a volume of 89.7 mL Endometrial Thickness: 10.2 mm. It is trilaminar. Right Ovary: 4.5 cm x 3.8 cm x 3.2 cm with a volume of 27.87 mL. Left Ovary: 3 cm x 2 cm x 1.7 cm with a volume of 5.26 mL. TRANSABDOMINAL: Uterus: Heterogeneous appearance of the myometrium suggestive of fibroid change. In the lower uterine segment, there is a 4 mm x 5 mm x 3 mm isoechoic density with fluid. This may represent the degenerating fibroid. Endometrium: Unremarkable. Right ovary: 3.6 cm 3.5 cm 2.6 cm cyst. Left ovary: Normal size and echotexture. Other: No large pelvic mass identified. Transvaginal sonography was performed to better visualize the endometrium. TRANSVAGINAL: Uterus: Anteverted. Heterogeneous appearance suggestive of fibroid change. Questionable tiny fibroid in the lower uterine segment. Nabothian cyst. Endometrium: Normal echotexture. Right ovary: 3.6 cm 3.5 cm 2.6 cm cyst. Left ovary: Normal size and echotexture. Other adnexal findings: None. Cul-de-sac: No free intraperitoneal fluid identified. Tenderness: No tenderness History 3 Elective abortions Hx Para 2 Spontaneous abortions Hx # Term Pregnancies 2 Ectopic pregnancies Hx # Pregnancies 1 Multiple births # of living children 2 Past Pregnancies Del. Date Name GA/Weeks Outcome Route Bth Weight Infant Gen Labor Lgth Anesthesia Del Locatn Provider FOB 04/19/12 Kika 39 live - full term Female [facility] [place] 11/20/18 Eliezer spontaneous Female 02/12/20 Mo 39 live - full term 7lbs 15oz Male spinal [facility] GP Delivery Date: 02/12/20 Last Updated by: Bibi Cordero GDM ROS Const ROS Unobtainable: All systems reviewed & are unremarkable except as noted in H Resp Resp: Reports system reviewed and no additional complaints, except as documented; Denies cough GI GI: Reports as per HPI Psych Psych: Reports system reviewed and no additional complaints, except as documented Exam Const General: cooperative, healthy appearing, comfortable and no acute distress Resp Effort & Inspection: normal respiratory effort Skin General: no rashes or lesions noted Psych Appearance: grossly normal Speech and Movement: speech and movement normal Coding Level of Care Code Off vis,est,level 4 Diagnoses Abnormal uterine bleeding N93.9 Assessment and Plan Assessment and Plan (1) Abnormal uterine bleeding: Status: Resolved Comment: lysteda Plan: After discussing the patient's diagnosis and treatment plan options, patient wishes to proceed with surgical management. I have discussed with the patient the risks, benefits, and alternatives of the procedure which include but are not limited to risks of anesthesia, bleeding, infection, possible damage to bowel, bladder, or surrounding vasculature which could lead to additional surgery to evaluate any complications. Patient agrees to procedure and wishes to proceed. ACOG/uptodate references given for additional information regarding procedure. plan is for total robotic hysterectomy, cystoscopy
--- NOTE | 2025-03-19 10:18 | PCM.DC ---
Discharge Instructions DC O2, CPAP, BIPAP needs Home O2 Discharge instructions: No Dressing / Incision Discharge Activity: May Shower May resume sexual activity in: 8 weeks Weight Bearing Status: Full weight bearing Lifting Restrictions: 10 pounds for 2 weeks Dressing / Incision Call your doctor if your incision/area has: Continuous Slow Oozing, Sudden Increased Bleeding, Increased Pain/ Swelling, Increased Redness and Foul Smelling Discharge Call your doctor if you observe: Fever of 101 or Higher, Using more than 1 pad per hour, Shortness of breath, Chest pain and Uncontrolled pain Suture Line Care: Avoid Pulling/Pushing and Avoid Pinching/Bending Remove Dressing in: 1 week (if present) Cleanse incision/area with: Soap & Water and Keep Dressing Clean & Dry Follow Up Care Please Follow Up With: Es Cline DO When: Call to make an appointment with your doctor for a postop visit in 2 and 6 weeks Test Results: Test results from this visit will be discussed in further detail at your follow-up appointment, if applicable. Discharge Plan Admission Primary Reason for Your Visit: hysterectomy Attending Provider: Es Cline Primary Care Provider: Hina Camacho Instructions Print Language: Burkinan Discharge Orders/Prescriptions Prescriptions: New ibuprofen 800 mg tablet 800 mg PO Q8H PRN (Reason: pain) Qty: 30 0RF oxycodone-acetaminophen [Percocet] 5-325 mg tablet 1 tab PO Q4H PRN (Reason: pain) 7 Days Qty: 20 0RF Continued desvenlafaxine succinate 50 mg tablet extended release 24 hr 50 mg PO DAILY Qty: 90 0RF polyethylene glycol 3350 [Miralax] 17 gram/dose powder 4 g PO QODAY Trulicity 3 mg/0.5 mL pen injector 3 mg subcut QWEEK Patient Comments: LAST DOSE 03/07/2025, FOR WEIGHT LOSS albuterol sulfate 2.5 mg /3 mL (0.083 %) solution for nebulization 1 mg inhalation Q4H PRN PRN (Reason: wheezing) albuterol sulfate 90 mcg/actuation HFA aerosol inhaler 2 puff INHALATION Q4H PRN PRN (Reason: wheezing) omeprazole 40 mg capsule,delayed release(DR/EC) 20 mg PO BID ondansetron 4 mg tablet,disintegrating 4 mg PO Q6H PRN (Reason: nausea and vomiting) Qty: 30 0RF Discontinued medroxyprogesterone 5 mg tablet 5 mg PO QDAY 60 Days Qty: 60 0RF Referrals / Follow Up: Hina Camacho MD [Primary Care Provider, Internal Medicine] Disposition Disposition (needs filled in before D/C Order can be placed): Home, Self Care
--- NOTE | 2025-03-19 10:45 | UT_PTH ---
PATIENT: COLLIN APARICIO LOC: [facility] [place] U#:[id number] AGE/SX: 34/F ROOM: RE03/19/[address]: Dr. Es Cline DO : 1990 BED: DIS: 03/19/2025 SPEC #: [id number] RECD: 03/19/25 13:31 STATUS: FRANCESCA CODI #: [id number] DANIELLE: 03/19/25 10:[address]: Es Cline DEPT: SURGICAL PATHOLOGY RECD BY: Ravi Kapadia ENTERED: 03/19/25 13:52 SP TYPE: UTERUS OTHR DR: Dr. Hina Camacho MD Tissues: A - Uterus, NOS Procedures: Surgery Specimen Level V HEADER OPERATION: ERAS, laparoscopic total robotic hysterectomy, cystoscopy PRE-OP DIAGNOSIS: Abnormal uterine bleeding TISSUE SUBMITTED: A- Uterus, cervix MICROSCOPIC DIAGNOSIS A. Uterus, laparoscopic total robotic hysterectomy - Cervix: no specific pathologic change. - Endometrium: proliferative phase. - Myometrium: subserosal leiomyoma x2 (0.7 cm). - Serosa: focal adhesions. MICROSCOPIC DESCRIPTION Slides are reviewed. GROSS DESCRIPTION A. Received in formalin labeled with the patient's name and date of . Designated as uterus, cervix is an 83 g, 7.4 x 4.8 x 3.5 cm uterus devoid of attached adnexa. The serosa is miller-pink with 2 possible subserosal leiomyomas (0.3 cm and 0.7 cm) and focal, dense adhesions on the posterior aspect. The attached cervix is miller-pink and measures 3.3 x 3.1; the 0.7 cm os is expelling hemorrhagic mucoid material and is probe patent. Mucoid containing cysts are present in the cervix. The specimen is inked as follows: [id number]. Opening reveals a 5.6 x 3.5 cm endometrial canal lined by minimal, miller to red and granular that measures up to 0.4 cm cm thick. Anteriorly at the junction of the lower uterine segment is a 1.4 x 1.2 cm area of somewhat fibrotic endometrium (suspicious for scar). The myometrium is miller-pink, trabeculated and measures up to 2.2 cm thick. Columnist sections are submitted as follows: A1: Anterior cervixA2: Posterior cervixA3: Anterior endomyometriumA4: Posterior endomyometriumA5: Possible anterior endometrial scar, subserosal leiomyoma [place] 03/19/2025 CPT:56405
[2025-03-19] MEDS: fentaNYL 100 MCG/2 ML Ampul IV (11:20)
[2025-03-19] MEDS: Midazolam 2 MG/2 ML Syringe IV (11:20)
[2025-03-19] MEDS: Lidocaine 1% (5 ml sdv) 5 ML Vial 6 ML IV (11:26)
--- NOTE | 2025-03-19 12:47 | PCM.OPRPT ---
Multi Select Codes Urinary/Genital Urinary/Genital CPT Codes: 39132 Cystoscopy and 14399 TLH+BS/O <250gr uterus Operative Report (Standard) Operative Information Date of Procedure: 03/19/25 Pre-Operative Diagnosis: menorrhagia, pelvic pain Post-Operative Diagnosis: menorrhagia, pelvic pain, endometriosis Surgery/Procedure Performed: total robotic hysterectomy, cystoscopy, lysis of adhesions and fulguration of endometriosis analytical research program manager: Yes Embroidery Designer: Jeana Sevilla Tasks completed by news assistant: Trocar and Retracting Additional emergency medicine physician assistant?: No Type of Anesthesia: General RN Documented Start/Stop Times: Operation Date: 03/19/25 10:45 Case Time Into Pre-Op 03/19/25 08:48 Anesthesia Start 03/19/25 11:21 Into Room 03/19/25 11:21 Procedure Start 03/19/25 11:41 Procedure Start Time: 11:41 Procedure Stop Time: 12:48 Select all DRAINS/GRAFTS/IMPLANTS that apply: None Estimated Blood Loss: 20cc Specimen collected: Yes Description of specimen(s) removed: uterus and cervix Description of surgery: Specimens removed: Uterus and cervix Reason for surgery: This is a 34-year-old G3, P2 who presented to my office with history of section x 2, pelvic pain, and heavy periods. the planned procedure is for a robotic hysterectomy the risks benefits and alternatives were discussed with the patient the patient had a clear understanding of the procedure and a consent form was signed. Procedure: The patient was placed in the dorsal low lithotomy position and prepped and draped in the normal sterile fashion both abdominally and in the perineum. Her legs were placed in stirrups a Winchester catheter was inserted into the urethra without difficulty. A weighted speculum was placed in the vagina and a single-tooth tenaculum was used to grasp the anterior lip of the cervix. An advincula uterine manipulator was inserted through the cervix without complication. It was then tied into place at the 2 and 10:00 locations on the cervix. Gloves were changed and attention was turned towards the abdomen. Approximately 23 cm above the pubic symphysis in the midline, and after Marcaine injection, a 8 mm incision was made. An 8 mm trocar was inserted through the laparoscope, then inserted into the abdomen under direct visualization using the laparoscope. Good abdominal placement was noted and no complications were appreciated. An air seal device was utilized to create pneumoperitoneum. At 12 cm lateral to the midline on the left and right sides 8 mm accessory ports were placed. Next a left upper quadrant 8 mm emergency medicine physician assistant port site was placed. The patient was placed in steep Trendelenburg position. The robot was docked. The hysterectomy was initiated first by taking down the round ligament on each side using the vessel sealer device. The fallopian tubes were noted to be surgically absent. There was noted to be endometriosis on the peritoneum overlying the back side of the bladder on the right infundibulopelvic ligament on the left uterosacral ligament and on the remaining of the right fallopian tube. The broad ligament was then and taken down using the vessel sealer device. Next the bladder flap was taken down without complication. This was done using monopolar cautery to the level of the cervical vaginal junction. After the bladder flap was created, uterine vessels were then isolated and cauterized using the vessel sealer device and EndoShears. At this point the uterine vessels were taken down further starting from the ascending branch, dissecting along the edges of the cervix to the level of the cervical vaginal junction with hemostasis appreciated. The cervical vaginal junction was then using monopolar cautery in a circumferential pattern across the superior aspect of the cervix. This was performed after carefully dissecting scar tissue from the bladder flap to the uterus using electrocautery and blunt dissection. The specimen was delivered through the vagina and sent to pathology. The remaining vaginal cuff was then closed using a V lock suture. This was performed in a running technique. Excellent hemostasis was obtained and good closure was noted. Irrigation was then performed. All operative sites were noted to be hemostatic. A cystoscopy was performed with a 70 degree cystoscope through the urethra into the bladder without complication. The bladder was instilled with approximately 250 cc of normal saline. Intraoperative images were made. Ureteral orifices and jets were identified. No suture material was appreciated in the bladder. The bladder was then drained and cystoscope was removed. The abdominal cavity was again examined using the laparoscope after the robot was undocked. All operative sites were noted to be hemostatic. The trochars were removed under direct visualization without complication and pneumoperitoneum was reduced. At this point the skin was then closed using 4-0 Monocryl subcuticular stitch and sealed with surgical glue. The patient tolerated the procedure well sponge lap and needle counts were correct x2 the patient was taken to the recovery room in stable condition. Surgical Findings: Findings: 9 cm uterus, left ovarian simple cyst, ruptured with clear fluid. Endometriosis of the cul-de-sac (left Uterosacral ligament) and on the peritoneum overlying the back of the bladder. Also endometriosis on the right IP ligament. On exploration of the abdominal cavity the uterus, adnexa, bowel, and liver were found to be normal. Cystoscopy showed no evidence of leaking at approximately 250 cc of normal saline, positive ureteral orifices and jet flow are seen and no suture material was appreciated in the bladder. No endometriosis in the bladder Complications Complications: No Admit VTE Documentation VTE Present on Admission: No VTE Mechan Device Prophylaxis: SCD's VTE Pharm Prophylaxis ordered?: No Reason prophylaxis not ordered: Treatment Not Indicated
--- NOTE | 2025-03-19 13:06 | PCM.POST.ANE ---
Anesthesia: Postop Eval I Current Vital Signs Temperature: 97.6 F Pulse Rate: 68 Blood Pressure: 117/73 Respiratory Rate: 16 Pulse Ox: 100 Oxygen Delivery Method: Nasal Cannula Oxygen Flow Rate (L/min): 4 Assessment Airway patent: Yes Spontaneous unlabored respirations: Yes Mental status: Calm and Asleep nausea: No Vomiting: No Anesthesia Complication: No Fluid Hydration Crystalloid volume administer (ml): 850 Total IV fluid infused: 850 Progress Note Anesthesia document: Postop Eval 1 completed: Yes
[2025-03-19] MEDS: Lactated Ringers @ 70 MLS/HR 70 ML IV (13:20)
--- NOTE | 2025-03-19 15:04 | POSTOPAN2_ITS ---
Anesthesia Postop Eval I Sum Postop Eval Completion status Anesthesia document: Postop Eval 1 completed: Yes Anesthesia Postop Eval I Summary Anesthesia Postop Eval I Summary: Anesthesia Postop Eval I: Assessment Summary Airway patent Yes 03/19/25 13:07 [email or web address] Spontaneous unlabored Yes 03/19/25 13:07 [facility] [email or web address] respirations Mental status Calm,Asleep 03/19/25 13:07 HE[facility] [email or web address] nausea No 03/19/25 13:07 HE[facility] CONCIERGE.MEDM Vomiting No 03/19/25 13:07 [facility] CONCIERGE.MEDM Anesthesia Postop Eval I: Fluid Summary Crystalloid volume administer 850 03/19/25 13:07 [facility] CONCIERGE.MEDM (ml) Colloids volume administered ( ml) Blood Product volume administered (ml) Total IV fluid infused 850 03/19/25 13:07 [facility] CONCIERGE.[email or web address] Anesthesia Postop Eval I: Summary Notes Anesthesia Complication No 03/19/25 13:07 [facility] CONCIERGE.MEDM Anesthesia Complication Comment: Post-operative progress note Anesthesia: Postop Eval II Evaluation Mental status: Awake and Calm Pain Level: 1 nausea: No Vomiting: No Complications Anesthesia Complication: No
--- NOTE | 2025-03-19 15:04 | PCM.POSTANE2 ---
Anesthesia Postop Eval I Sum Postop Eval Completion status Anesthesia document: Postop Eval 1 completed: Yes Anesthesia Postop Eval I Summary Anesthesia Postop Eval I Summary: Anesthesia Postop Eval I: Assessment Summary Airway patent Yes 03/19/25 13:07 SAFETY [email or web address] Spontaneous unlabored Yes 03/19/25 13:07 SAFETY LEADER.MEDM respirations Mental status Calm,Asleep 03/19/25 13:07 SAFETY LEADER.MEDM nausea No 03/19/25 13:07 SAFETY LEADER.MEDM Vomiting No 03/19/25 13:07 SAFETY LEADER.MEDM Anesthesia Postop Eval I: Fluid Summary Crystalloid volume administer 850 03/19/25 13:07 SAFETY LEADER.MEDM (ml) Colloids volume administered ( ml) Blood Product volume administered (ml) Total IV fluid infused 850 03/19/25 13:07 SAFETY LEADER.MEDM Anesthesia Postop Eval I: Summary Notes Anesthesia Complication No 03/19/25 13:07 SAFETY LEADER.MEDM Anesthesia Complication Comment: Post-operative progress note Anesthesia: Postop Eval II Evaluation Mental status: Awake and Calm Pain Level: 1 nausea: No Vomiting: No Complications Anesthesia Complication: No
[2025-03-19] MEDS: Ketorolac 30 MG/ML Syringe IV (15:23)
[2025-03-19] MEDS: HYDROcodone Bitartrate/Apap 5/325 Tablet PO ×2 (15:23→16:21)
== END 2025-03-19 17:28 | disposition home or self-care (01) ==
LOC: SDC 08:45 → AC 08:47
PROVIDERS: Anesthesiology; PCP Internal Medicine; Referring Provider Obstetrics & Gynecology; Visit Provider Obstetrics & Gynecology
PROC: 0UT94ZZ Resection of Uterus, Percutaneous Endoscopic Approach (ICD-10-PCS; CPT 58570; principal; 2025-03-19 10:25)
DX: D25.2 Subserosal leiomyoma of uterus (principal); Z79.4 Long term (current) use of insulin; N92.0 Excessive and frequent menstruation with regular cycle; I10 Essential (primary) hypertension; E78.00 Pure hypercholesterolemia, unspecified; N93.9 Abnormal uterine and vaginal bleeding, unspecified; K21.9 Gastro-esophageal reflux disease without esophagitis; Z87.891 Personal history of nicotine dependence; Z79.85 Long-term (current) use of injectable non-insulin antidiabetic drugs; Z79.899 Other long term (current) drug therapy; J45.909 Unspecified asthma, uncomplicated; N80.3C2 Endometriosis of the left uterosacral ligament, unspecified depth; Z90.79 Acquired absence of other genital organ(s); N80.201 Endometriosis of right fallopian tube, unspecified depth
CPT/HCPCS: 58570; S2900; 00840; 36415; 82962; 83735; 85027; 86850; 86900; 86901; 88307; J2405; J3475

== ENCOUNTER → 2025-04-24 | Outpatient (CLI) | payer MEDICARE, MEDICAID, SELFPAY | END | disposition home or self-care (01) | LOC: LABSPEC 16:23 | PROVIDERS: Visit Provider Obstetrics & Gynecology | DX: R30.0 Dysuria (principal) | CPT/HCPCS: 87086; 87088 ==

== ENCOUNTER → 2025-05-15 | Outpatient (CLI) | payer MEDICARE, MEDICAID, SELFPAY ==
--- OUTSIDE RECORDS SUMMARY | 2025-05-15 12:00 | XMS RPT_ITS | CCD ---
Author Organization [facility] Care Team Providers Care Editor Producer Name Role Phone [place] 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, Afsaneh Kovacs Unavailable Unavailable Primary Care Provider Unavaildeborah e Dr. Juan Alfaro Primary Care Provider [phone] Dr. Juan Alfaro Referring Provider [phone] Dr. Es Clien Attending Provider [phone] [phone]) Dr. Azucena Cadena Attending Provider [phone] Dr. Juan Alfaro Attending Provider [phone] Dr. Juan Alfaro Primary Care Provider [phone] Dr. Juan Alfaro Referring Provider [phone] Dr. Es Cline Attending Provider 1(3 30) Juan Alfaro MD Primary Care Provider 1(3 30) Dr. Juan Alfaro Primary Care Provider [phone] Dr. Juan Alfaro Attending Provider [phone] Dr. Juan Alfaro Referring Provider [phone] Dr. Es Cline Attending Provider 1(3 30) Dr. Krista Parker Attending Provider [phone] Dr. Krista Parker Primary Care Provider Dr. Juan Alfaro Primary Care Provider [phone] Dr. Juan Alfaro Referring Provider Jacqueline Cordova DO Primary Care Provider Juan Alfaro Primary Care Provider Dr. Krista Parker Primary Care Provider Dr. Krista Parker Referring Provider Dr. Es Cline Attending Provider [phone] Dr. Es Cline Referring Provider [phone] Dr. Es Cline Other Provider DO Jacqueline Cordova Primary Care Provider Dr. Es Cline Attending Provider [phone] Dr. Krista Parker Referring Provider Juan Alfaro Primary Care Provider Dr. Es Cline Attending Provider DO Jacqueline Cordova M Primary Care Provider DO Jacqueline Cordova M Referring Provider MD Hai Sanchez Attending Provider Dr. Que Virgen Attending Provider Juan Alfaro Primary Care Provider DO Jacqueline Cordova M Primary Care Provider DO Blue Cordovaistin M Referring Provider MD Hai Sanchez Attending Provider CAROLYN Guevara Attending Provider JOAQUÍN Koo Attending Provider DO Jacqueline Cordova M Primary Care Provider DO Blue Cordovaistin M Referring Provider CAROYLN Way Attending Provider Gwendolyn 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, 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-C Afsaneh Attending Provider Dr. Es Cline Attending Provider [phone] Jacqueline Cordova DO Primary Care Provider [phone] System, Provider Not In Primary Care Provider Un available AJAY NGUYỄN Attending Unavailable SYSTEM, PROVIDER NOT IN Primary Care Unavaila romel [place] LIFE ASSURANCE REPRESENTATIVE.SOFT MUD MOLDER, Renea M Primary Care Provider PHYSICIAN, NONE Primary Care Physician Unavailab le Unavailable Primary Care Provider Unavailabl e Justin 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-C, Vidhya Attending Provider [phone] Justin 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-C, Vidhya Referring Provider [phone] Care Physician, No Primary Primary Care Provider Unavailable Serjio 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-C, Renea Referring Provider [phone] Maira Dowell Attending Provider [phone] Francis JUAREZ, Dr. Sánchez Attending Provider Dr. Gonzalo Blanco MD Emergency Provider Care Physician, No Primary Referring Provider Un available Daniel Lam Attending Provider Altaf Garcia Attending Provider [phone] CORAL PIERRE Other Provider Altaf Garcia Referring Provider [phone] Steph Camacho MD Primary Care Provider [phone] Care Physician, No Primary Primary Care Provider Unavailable Dr. Steph Camacho MD Referring Provider Alisson Capps Attending Provider [phone] Que Virgen MD Attending Provider Dr. Steph Camacho MD Attending Provider Dr. Es Cline DO Attending Provider José 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-CTia Referring Provider Care Physician, No Primary Primary Care Provider Unavailable Care Physician, No Primary Referring Provider Un available Gwendolyn 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-C, Afsaneh Attending Provider [phone] Gwendolyn 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-C, Afsaneh Referring Provider STEPH CAMACHO MD Primary Care Physician Care Physician, No Primary Referring Provider Un available Dr. Steph Camacho MD Primary Care Provider [phone] [phone] Dr. Steph Camacho MD Referring Provider Alisson Capps Attending Provider Bryant Villarreal DO, Dr. Suggs Referring Provider Isai JUAREZ, Dr. Jim Emergency Provider Isai JUAREZ, Dr. Jim Attending Provider Billie JUAREZ, Dr. Santamaria Primary Care Provider [phone] Billie JUAREZ, Dr. Santamaria Attending Provider SOLA C[place] Attending Unavailable SELF Referring Unavailable SANTINO AGUILERA Attending Unavailable SELF Referring Unavailable SELF Referring Unavailable AGA RDZ Attending Unavailable RENEA BASSETT Primary Care Unavailable DARI WHITE Referring Unavailable RENEA BASSETT Primary Care Unavailable Dr. Steph Camacho MD Primary Care Provider [phone] Dr. Steph Camacho MD Referring Provider Bryant Villarreal DO, Dr. Suggs Attending Provider SOLA C[place] Referring Unavailable SOLA C[place] Referring Unavailable Steph Camacho MD Primary Care Provider [phone] CORAL PIERRE Attending Unavailable OLEGHE, EFEWONGBE Primary Care Unavailable CORAL PIERRE Attending Unavailable OLEGHE, EFEWONGBE Primary Care Unavailable CORAL PIERRE Attending Unavailable OLEGHE, EFEWONGBE Primary Care Unavailable CORAL PIERRE Attending Unavailable OLEGHE, EFEWONGBE Primary Care Unavailable CORAL PIERRE Attending Unavailable STEPH CAMACHO Primary Care Unavailable Dr. Steph Camacho MD Primary Care Physician Dr. Steph Camacho MD Referring Provider Gwendolyn PEÑAC, Afsaneh Attending Physician Dr. Es Cline DO Attending Physician Isai JUAREZ, Dr. Jim Attending Physician Isai JUAREZ, Dr. Jim Emergency Department Phys ician Hunter Zavaleta Attending Physician [phone] [facility] CANO, KAMILA Attending Unavailable PHYSICIAN, NONE Primary Care Unavailable BILLIE JUAREZ, STEPH G Primary Care Unavailable TYRELL JUAREZ, VALENTINA Redmond Attending Unavailable BILLIE JUAREZ, STEPH G Primary Care Unavailable [place] LIFE ASSURANCE REPRESENTATIVE-SOFT MUD MOLDER, BROOKLYNN Attending Unavailab RENEA Stinson DO Attending Unavailable PHYSICIAN, NONE Primary Care Unavailable Es Cline Attending Unavailabl e Billie, Steph Primary Care Unavailable Es Cline Referring Unavailabl e Care Physician, No Primary Primary Care Unava ilable Gonzalo Blanco Attending Unavailable Care Physician, No Primary Referring Unava ilable Billie, Steph Attending Unavailable [place], Steph Primary Care Unavailable [place], Steph Primary Care Unavailable Es Cline Referring Unavailabl e Vande VeldeEs Attending Unavailabl e [place], Steph Primary Care Unavailable Es Cline Attending Unavailabl e Vande VelEs mitchell Referring Unavailabl e Vande VeldeEs Attending Unavailabl e Billie, Steph Primary Care Unavailable Es Cline Referring Unavailabl e Billie, Steph Primary Care Unavailable Es Cline Referring Unavailabl e Vande VelEs mitchell Attending Unavailabl e Vande VeldeEs Attending Unavailabl e [place], Steph Primary Care Unavailable Vande VelEs mitchell Referring Unavailabl e Billie, Steph Referring Unavailable [place], Steph Primary Care Unavailable Vande Es Villarreal Attending Unavailabl e Alisson Kumar Attending Unavailable [place], Steph Referring Unavailable Billie, Steph Primary Care Unavailable Billie, Steph Referring Unavailable [place], Steph Primary Care Unavailable Gwendolyn 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, Afsaneh Attending Unavailable [place], Steph Primary Care Unavailable Hernán Alex Attending Unavailable Billie, Steph Primary Care Unavailable Gwendolyn 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, Afsaneh Attending Unavailable Gwendolyn 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, Afsaneh Referring Unavailable Tia Kumar NP Referring Unavailable Alisson Kumar Attending Unavailable Billie, Steph Primary Care Unavailable Care Physician, No Primary Primary Care Unava ilable Vidhya Anderson Attending Unavailable Vidhya Anderson Referring Unavailable Altaf Garcai Attending Unavailable Altaf Garcia Referring Unavailable LATOYA HOLT Consulting Unavailable Billie, Steph Primary Care Unavailable Es Cline Attending Unavailabl e [place], Steph Primary Care Unavailable VandEs Sousa Referring Unavailabl Alisson Buckner Attending Unavailable Billie, Steph Referring Unavailable Billie, Steph Primary Care Unavailable Billie, Steph Referring Unavailable [place], Steph Primary Care Unavailable Es Cline Attending UnavailHunter David Attending Unavailable [place], Steph Referring Unavailable [place], Steph Primary Care Unavailable [place], Steph Referring Unavailable Billie, Steph Primary Care Unavailable Es Cline Attending Unavailabl e Renea Bassett Referring Unavailable Maira Lawrence Attending Unavailable Billie, Steph Referring Unavailable Billie, Steph Attending Unavailable [place], Steph Primary Care Unavailable VandEs Sousa Attending Unavailabl e [place], Steph Primary Care Unavailable [place], Steph Referring Unavailable Care Physician, No Primary Primary Care Unava ilable Care Physician, No Primary Referring Unava ilable Altaf Garcia Attending Unavailable Billie, Steph Primary Care Unavailable VandEs Sousa Referring Unavailabl e Es Cline Consulting Unavailabl e Es Cline Attending Unavailabl e Billie, Steph Referring Unavailable [place] 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Afsaneh Attending Unavailable [place], Steph Primary Care Unavailable Billie, Steph Referring Unavailable Gwendolyn 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Afsaneh Attending Unavailable [place], Steph Primary Care Unavailable Friend, Bo Attending Unavailable Care Physician, No Primary Primary Care Unava ilable Care Physician, No Primary Referring Unava ilable Daniel Tapia Attending Unavailable Que Virgen Attending Unavailable Steph Camacho Primary Care Unavailable Es Cline Attending Unavaildeborah e Steph Camacho Primary Care Unavailable Billie JUAREZ, Dr. Santamaria Primary Care Physician Bryant Villarreal DO, Dr. Suggs Attending Physician Dr. Es Cline DO Referring Provider Isai JUAREZ, Dr. Jim Attending Physician Dr. Hernán Alex MD Emergency Department Phys ician Billie JUAREZ, Dr. Santamaria Referring Provider Hunter Zavaleta Attending Physician Dr. Es Cline DO Nurse Practitioner Allergies Allergy Classification Reported Allergen(s) Allergy Type Date of Onset Reaction(s) Facility (1 source) naproxen Drug Allergy 7 [facility] (1 source) varenicline Drug Allergy 7 [facility] (20 sources) Naproxen; Translations: [NAPROXEN] Drug Allergy 1 Other (See Comments), Other: See Comments, Other [place], [place] Comment on above: night sweats, fever, and hives (20 sources) varenicline; Translations: [varenicline tartrate] Drug Allergy 0 Other (See Comments) [place], [place] Comment on above: night sweats, fever, and hives (20 sources) varenicline; Translations: [VARENICLINE] Drug Allergy 0 Other: See Comments, Other, Other (See Comments) [facility] (20 sources) MITE EXTRACT; Translations: [MITE EXTRACT] Drug Allergy 9 Other: See Comments [facility] (20 sources) House dust mite Propensity to adverse reactions 9 Other [facility] (20 sources) Mold Extract Drug Allergy 9 Other, Other (See Comments) [facility] (2 sources) [place] house dust mite allergenic extract / house dust mite allergenic extract; Translations: [ALLERG XT,D.FARINAE-D. PTERONYS] Drug Allergy 9 Other (See Comments) [facility] (1 source) Mold Extract; Translations: [MOLD] Drug Allergy 9 [facility] (9 sources) metFORMIN Drug Allergy 5 Rash [facility] (9 sources) Phentermine Drug Allergy 5 Other [facility] (20 sources) Amoxicillin; Translations: [amoxicillin] Drug Allergy 4 Vomiting [facility] (17 sources) Clavulanate Drug Allergy 5 Vomiting [facility] (10 sources) Megestrol Drug Allergy 5 chest pain [facility] (1 source) Amoxicillin Drug Allergy 5 [facility] (1 source) Clavulanate Drug Allergy 5 [facility] (1 source) Megestrol Drug Allergy 5 [facility] (1 source) Naproxen Drug Allergy 5 [facility] Medications Current Medications Medication Drug Class(es) Dates Sig (Normalized) Sig (Original) acetaminophen 325 mg / HYDROcodone bitartrate 5 mg oral tablet (1 source) Opioid Agonist Start: 05-04-2024 End: 05-07-2024 take 1 tablet by mouth every six hours as needed for pain Zortman 325- 5 mg oral tablet Dose = 1 tab(s), Oral, q6h, PRN as needed for pain, X 3 day(s), # 12 tab(s), 0 Refill(s), Back pain Start Date: 05/04/24 Stop Date: 05/07/24 Status: Ordered acetaminophen 325 mg / oxyCODONE hydrochloride 5 mg oral tablet (20 sources) Opioid Agonist Start: 03-19-2025 take 1 tablet by mouth every four hours as needed for pain Start: 09-07-2022 End: 09-21-2022 take 1-2 tablets by mouth every four hours as needed for pain Oxycodone-Acetaminophen (Percocet) 5-325 mg tablet Discontinued 1 {tbl} PO Q4H as needed for pain 15 7 0 September 07, 2022 September 21, 2022 8:51am 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) 1-2 tabs q 4 hrs as needed for pain Start: 11-20-2018 End: 11-27-2018 Oxycodone-Acetaminophen (Per cocet) 5-325 mg tablet Discontinued 1 {tbl} PO Q4H as needed for pain 20 5 0 November 22, 2018 November 25, 2018 11:00pm November 26, 2018 11:06pm Missed Start: 11-20-2018 End: 11-27-2018 take 1 [...] Pain 30 7 0 May 06, 2018 12:00am May 12, 2018 12:00am May 13, 2018 12:12am Acute appendicitis Unspecified acute appendicitis Start: 05-06-2018 End: 05-24-2018 Percocet 5-325 Discontinued 5 - 325 mg PO NEEDED as needed for Pain May 06, 2018 12:00am May 24, 2018 [...] needed for Pain 42 May 06, 2017 12:00am May 20, 2017 1:42pm Start: 05-06-2017 End: 05-20-2017 take 1 tablet by mouth every six hours as needed Oxycodone-Acetaminophen Discontinued 1 - 2 TABLET PO EVERY 6 HOURS NEEDED 42 May 06, 2017 12:00am May 20, 2017 1:42pm Start: 02-02-2017 End: 05-02-2017 Oxycodone-Acetaminophen 1 TA BLET tablet Discontinued 1 - 2 {tbl} PO EVERY 6 HOURS NEEDED as needed for Pain 60 February 01, 2017 11:00pm May 02, 2017 8:33am Start: 02-02-2017 End: 05-02-2017 take 1 tablet by mouth every six hours as needed Oxycodone-Acetaminophen Discontinued 1 - 2 TABLET PO EVERY 6 HOURS NEEDED 60 February 01, 2017 11:00pm May 02, 2017 8:33am albuterol 0.83 mg/ml inhalation solution (20 sources) beta2-Adrenergic Agonist Start: 03-07-2025 take 1 mg by inhalation every four hours as needed for wheezing Start: 03-07-2025 Start: 03-30-2024 take 2.5 mg by inhal ation every four hours as needed albuterol (PROVENTIL) 2.5 mg /3 mL (0.083 %) nebulizer solution Use 3 mL via nebulizer every 4 hours as needed for wheezing/shortness of breath. Use over 5-15minutes. 90 mL [...] or wheezing 8.5 3 May 11, 2019 11:14am June 28, 2019 1:16pm Start: 05-11-2019 End: 06-28-2019 take 1 puff(s) [...] Breath. aluminum chloride 200 mg/ml topical solution (16 sources) Start: 07-22-2023 End: 06-12-2024 aluminum chloride [...] A DAY 20 10 May 29, 2021 12:00am June 07, 2021 12:00am June 08, 2021 12:01am Start: 04-08-2019 End: 05-07-2019 take 1 tablet by mouth twice daily Amoxicillin 875 mg tablet Discontinued 875 mg PO TWICE A DAY 20 0 April 08, 2019 12:00am May 07, 2019 1:10pm Comment on above: Take 1 tablet by shirin th twice daily for 7 days. Ashwagandha 500 MG capsule (20 sources) Ashwagandha [...] hydrochloride 8 mg extended release oral tablet (6 sources) Opioid Antagonist, Aminoketone Start: 08-30-2024 naltrexone-buPROPion [...] HOURS 20 5 0 April 21, 2020 12:00am April 25, 2020 12:00am April 23, 2020 12:33pm Start: 12-10-2019 End: 12-17-2019 take 1 capsule by mouth three times daily Cephalexin (Keflex) 500 mg capsule Discontinued 500 mg PO THREE TIMES A DAY 21 7 0 December 09, 2019 11:00pm December 15, 2019 11:00pm December 16, 2019 11:02pm space evenly during waking hours clindamycin 10 mg/ml topical lotion (20 sources) Lincosamide Antibacterial Start: 06-14-2023 clindamycin (Cleocin T) 1 % lotion Apply to affected area in the morning 06/14/2023 Active Start: 10-26-2018 End: 10-29-2018 Clindamycin Phosphate (Cleoc in) 2 % cream Discontinued 1 NMA VAGINAL AT BEDTIME 40 3 0 October 25, 2018 11:00pm October 27, 2018 11:00pm October 28, 2018 11:07pm Start: 10-26-2018 End: 10-29-2018 Clindamycin Phosphate (Cleoc in) 2 % cream Discontinued 1 APPFUL VAGINAL AT BEDTIME 40 3 October 25, 2018 11:00pm October 28, 2018 11:07pm Comment on above: Apply to affected ar ea in the morning dicyclomine hydrochloride 20 mg oral tablet (20 [...] abdominal pain 10 0 January 12, 2023 10:19am October 26, 2023 3:13pm Start: 04-01-2021 End: 04-15-2021 take 1 tablet by mouth twice daily as needed for pain Dicyclomine 20 mg tablet Discontinued 20 mg PO TWICE A DAY as needed for pain 28 14 0 April 01, 2021 12:00am April 14, 2021 12:00am April 15, 2021 12:01am doxycycline hyclate 100 mg oral tablet (1 source) Tetracycline-class Drug Start: 03-30-2024 End: 04-06-2024 take 1 tablet by mouth twice daily doxycycline (VIBRA-TABS) 100 mg tablet Take 1 tablet by mouth two times a day for 7 days. 14 tablet 03/30/2024 04/06/2024 Active Dulaglutide (20 sources) GLP-1 Receptor Agonist Start: 03-07-2025 Start: 02-01-2025 dulaglutide (T rulicity) 3 MG/0.5ML Indications: Insulin resistance , BMI 30.0-30.9,adult , Class 1 obesity due to excess calories with serious comorbidity and body mass index (BMI) of 30.0 to 30.9 in adult Inject 3 mg under the skin 1 (one) time per week. 4 each 2 02/01/2025 Active Start: 01-11-2025 End: 03-07-2025 Dulaglutide (Trulicity) 0.75 mg/0.5 mL pen injector Discontinued 4.5 mg SC EVERY WEEK January 11, 2025 1:36pm March 07, 2025 10:02am Start: 12-26-2024 inject 4.5 mg by sub cutaneous injection every week Trulicity Pen 4.5 mg/0.5 mL subcutaneous solution Inject 4.5 mg under the skin 1 time per week. Start Date: 12/26/24 Status: Ordered Medication Dispense Status: Completed Total Allowed Fills: 1 Fills Dispensed: 0 Start: 12-19-2024 End: 02-01-2025 dulaglutide (Trulicity) 4.5 MG/0.5ML Indications: Insulin resistance , BMI 31.0-31.9,adult , Class 1 obesity due to excess calories with serious comorbidity and body mass index (BMI) of 31.0 to 31.9 in adult Inject 4.5 mg under the skin 1 (one) time per week. 4 each 2 12/19/2024 02/01/2025 Discontinued (Therapy completed) Start: 12-19-2024 End: 03-19-2025 dulaglutide (Trulicity) 4.5 [...] 10/17/2024 11/07/2024 Discontinued (Therapy completed) Start: 09-17-2024 End: 01-11-2025 Dulaglutide (Trulicity) 0.75 mg/0.5 mL pen injector Discontinued 0.75 mg SC EVERY WEEK September 16, 2024 11:00pm January 11, 2025 1:36pm gabapentin 300 mg oral capsule (1 source) Anti-epileptic Agent Start: 11-16-2024 End: 12-16-2024 gabapentin 300 mg oral capsule Dose : 300 mg = 1 cap(s), Oral, qDay, 1 caps at bedtime, # 30 cap(s), 0 Refill(s), Pharmacy: [id number], Chronic lumbar radiculopathy Lumbosacral radiculitis, 78, kg, 11/16/24 10:52:00 EDT, Dosing Weight Start Date: 11/16/24 Stop Date: 12/16/24 Status: Ordered Quantity: 30.0 Unit: cap(s) Repeat number: 1 Indications: Radiculopathy, lumbar region; Radiculopathy, lumbosacral region; ibuprofen 800 mg oral tablet (20 sources) Nonsteroidal Anti-inflammatory Drug Start: 03-19-2025 take 1 tablet by mouth every eight hours as needed for pain Start: 02-14-2020 End: 02-28-2020 take 2 tablets by mouth every eight hours Ibuprofen 400 MG tablet Discontinued 800 mg PO Q8H 30 February 13, 2020 11:00pm February 28, 2020 8:44am Start: 02-14-2020 End: 02-28-2020 take 800 mg by mouth every eight hours Ibuprofen Discontinued 800 MG PO Q8H 30 February 13, 2020 11:00pm February 28, 2020 8:44am Start: 09-14-2016 End: 03-30-2024 Ibuprofen 800 MG tablet Disc ontinued 800 mg PO NEEDED as needed for Pain May 05, 2018 12:00am May 24, 2018 2:55pm Comment on above: Take 1 tablet by shirin th every 8 hours as needed. Inhalational Spacing Device (2 sources) Start: 07-10-2024 End: 07-10-2024 Inhalational Spacing Device 1 Device one time only for 1 dose. 1 Each 07/10/2024 07/10/2024 Active Lactobacillus acidophilus (20 sources) Lactobacillus (F LORAJEN ACIDOPHILUS PO) Take by mouth daily. Active [...] . 90 tablet 3 08/09/2023 08/08/2024 Active medroxyPROGESTERone acetate 5 mg oral tablet (20 sources) Progestin Start: 02-13-2025 End: 03-19-2025 take 1 tablet by mouth once daily Medroxyprogesterone 5 mg tablet Discontinued 5 mg PO daily 60 60 0 February 12, 2025 11:00pm April 13, 2025 12:00am March 19, 2025 9:19am Start: 02-13-2025 take 1 tablet by shirin th once daily Start: 02-13-2025 take 1 tablet by shirin th once daily Start: 02-13-2025 take 1 tablet by shirin th once daily Start: 04-03-2021 End: 05-05-2021 take 1 tablet by mouth once daily Medroxyprogesterone 5 mg tablet Discontinued 5 mg PO DAILY 14 14 6 April 03, 2021 12:00am May 05, 2021 2:15pm take one pill a day for 14 days to elicit menses. METAMUCIL FIBER PO (11 sources) METAMUCIL FIBER PO Take by mouth daily. Active metroNIDAZOLE 500 mg oral tablet (20 sources) Nitroimidazole Antimicrobial Start: take 1 tablet by mouth twice daily Start: 03-25-2025 End: 04-01-2025 take 1 tablet by mouth twice daily Metronidazole 500 mg tablet Discontinued 500 mg PO TWICE A DAY 14 7 0 March 25, 2025 12:00am March 31, 2025 12:00am April 01, 2025 12:08am Start: 06-18-2024 End: 06-23-2024 Metronidazole 0.75 % (37.5mg /5 gram) gel Discontinued 1 NMA VAGINAL daily 70 5 0 June 18, 2024 12:00am June 22, 2024 12:00am June 23, 2024 12:16am at bedtime Start: 06-18-2024 End: 06-23-2024 Metronidazole [...] A DAY 14 0 April 22, 2023 12:00am June 01, 2023 2:54pm Vulvodynia Vulvodynia, unspecified Start: 05-17-2019 End: 05-27-2019 Metronidazole 0.75 % gel Dis continued 1 NMA VAGINAL DAILY 70 10 0 May 17, 2019 12:00am May 26, 2019 12:00am May 27, 2019 12:08am Multiple Vitamins-Minerals (HAIR/SKIN/NAILS/BIOTIN PO) (20 sources) Multiple Vitamin s-Minerals (HAIR/SKIN/NAILS/BIOTIN PO) Take 100 [...] Start: 12-20-2022 take 1 tablet by shirin th once daily Multivitamin Active 1 TABLET PO DAILY December 20, 2022 12:00am naltrexone hydrochloride 50 mg oral tablet (11 sources) Opioid Antagonist Start: 06-25-2024 End: 08-12-2024 [...] ritonavir twice daily for 5 days PO [place] (Nk) (1 source) Start: 04-14-2022 [place] (Nk) Active April 14, 2022 12:00am omeprazole 40 mg delayed release oral capsule (20 sources) Proton Pump Inhibitor Start: 03-07-2025 Start: 04-25-2024 End: 03-07-2025 take 1 capsule by mouth twice daily Omeprazole 40 mg capsule,delayed release(DR/EC) Discontinued 40 mg PO TWICE A DAY 60 2 September 17, 2024 9:41am March 07, 2025 10:05am Start: 09-27-2017 End: 02-14-2018 take 1 capsule by mouth once daily Omeprazole 20 mg capsule,delayed release(DR/EC) Discontinued 20 mg PO daily 60 1 September 26, 2017 11:00pm February 14, 2018 8:49am take 1 tablet by shirin th twice daily before mealtime omeprazole OTC (PriLOSEC OTC) 20 MG EC tablet Take 20 mg by mouth 2 times daily (before meals). Do not crush, chew, or split. Active ondansetron 4 mg disintegrating oral tablet (20 sources) Serotonin-3 Receptor Antagonist Start: 02-11-2025 take 1 tablet by mouth every six hours as needed for nausea and vomiting Start: 02-11-2025 take 1 tablet by shirin th every six hours as needed for nausea and vomiting Start: 02-11-2025 take 1 tablet by shirin th every six hours as needed for nausea and vomiting Start: 01-30-2025 take 1 tablet by shirin th every four hours as needed for nausea and nausea and nausea ondansetron ODT (Zofran-ODT) 4 MG disintegrating tablet Indications: Nausea Take 1 tablet (4 mg) by mouth every 4 hours as needed for nausea. 20 tablet 01/30/2025 Active Start: 11-16-2024 Zofran 4 mg or al tablet Dose : 4 mg = 1 tab(s), Oral, q4h, PRN Nausea/Vomiting, # 20 tab(s), 0 Refill(s) Start Date: 11/16/24 Status: Ordered Medication Dispense Status: Completed Quantity: 20.0 Unit: tab(s) Total Allowed Fills: 1 Fills Dispensed: 0 Start: 11-28-2023 End: 12-12-2023 take 1 tablet by mouth every eight hours as needed for nausea Ondansetron 4 mg tablet,disintegrating Discontinued 4 mg PO EVERY 8 HOURS NEEDED as needed for Nausea 10 0 November 27, 2023 11:00pm December 12, 2023 7:19am Start: 11-15-2023 End: 02-21-2025 take 1 tablet by mouth every six hours as needed for nausea and vomiting Ondansetron 4 mg tablet,disintegrating Discontinued 4 mg PO EVERY 6 HOURS as needed for nausea and vomiting 90 2 May 28, 2024 1:43pm July 28, 2024 10:26am Start: 08-16-2023 End: 05-08-2024 take 1 tablet [...] as needed for Nausea 10 0 January 11, 2023 11:00pm June 01, 2023 2:54pm Start: 09-13-2022 End: 09-21-2022 take 1 tablet by mouth every four hours as needed for nausea and vomiting Ondansetron 4 mg tablet,disintegrating Discontinued 4 mg PO Q4H as needed for nausea and vomiting 20 0 September 12, 2022 11:00pm September 21, 2022 8:51am Start: 09-13-2018 End: 09-18-2018 take 1 tablet by mouth every four hours as needed for nausea and vomiting Ondansetron 4 mg tablet,disintegrating Discontinued 4 mg PO Q4H as needed for nausea and vomiting 60 2 September 12, 2018 11:00pm September 18, 2018 12:19pm Start: 09-08-2018 End: 09-13-2018 take 1 tablet by mouth every eight hours as needed for nausea Ondansetron Hcl 8 MG tablet Discontinued 8 mg PO EVERY 8 HOURS as needed for Nausea September 07, 2018 11:00pm September 13, 2018 8:39am Start: 12-14-2017 End: 04-06-2018 Ondansetron Hcl (Zofran) 4 m g tablet Discontinued 4 mg PO 2 to 3 times per day as needed for nausea and vomiting 20 3 December 13, 2017 11:00pm April 06, 2018 9:20am Start: 07-05-2017 End: 07-07-2017 take 1 tablet by mouth every eight hours as needed for nausea Ondansetron 4 MG tablet Discontinued 4 mg PO EVERY 8 HOURS NEEDED as needed for Nausea July 05, 2017 12:00am July 07, 2017 10:22am Start: 05-06-2017 End: 05-20-2017 take 1 tablet by mouth every eight hours as needed for nausea Ondansetron Hcl 8 MG tablet Discontinued 8 mg PO EVERY 8 HOURS NEEDED as needed for Nausea 20 0 May 06, 2017 12:00am May 20, 2017 1:42pm Start: 02-02-2017 End: 05-02-2017 take 1 tablet by mouth every eight hours as needed for nausea Ondansetron Hcl 8 MG tablet Discontinued 8 mg PO EVERY 8 HOURS NEEDED as needed for Nausea 20 0 February 01, 2017 11:00pm May 02, 2017 8:34am Ondansetron HCl (ZOFRAN PO) Take by mouth [...] mL 0 01/05/2023 Active polyethylene glycol 3350 170 00 mg powder for oral solution (20 sources) Osmotic Laxative Start: 01-11-2025 Start: 01-11-2025 Polyethylene G lycol 3350 (Miralax) 17 gram/dose powder Active 4 g PO ONCE January 11, 2025 12:00am Complies with drug therapy take 17 g by mouth e very other day polyethylene glycol, PEG, 3350 (Miralax) 17 g packet Take 17 g by mouth every other day. Active polyethylene gly col 3350 (MIRALAX) 17 gram/dose powder Take 17 g by mouth once daily. Dissolve dose in 4 - 8 ounces of liquid and take as directed. Active semaglutide (Ozempic) 2 MG/3ML solution pen-injector (17 sources) Start: 07-29-2023 inject 0.5 mg by [...] 2 mg/dose (8 mg/3 mL) pen injector (14 sources) inject 2 mg by subcu taneous [...] 08/08/2024 Active tretinoin 0.5 mg/ml topical cream (15 sources) Retinoid Start: 06-14-2023 tretinoin (RETIN-A) 0.05 % cream Apply a pea size amount to the area at night as tolerated 45 g 2 06/14/2023 Active Comment on above: Apply a pea size pavel unt to the area at night as tolerated TRULICITY 4.5 mg/0.5 mL pen injector (3 sources) inject 4.5 mg by subcutaneous injection every week TRULICITY 4.5 mg/0.5 mL pen injector Inject 4.5 mg subcutaneously one time a week. Active Completed/Discontinued Medications Medication Drug Class(es) Dates Sig (Normalized) Sig (Original) 1.1 ml HYDROXYprogesterone caproate (chcf) 250 mg/ml auto-injector (20 sources) Start: 10-19-2019 End: 01-17-2020 Hydroxyprogest(Pf )(Preg Presv) (Artemio (Pf)) 275 mg/1.1 mL auto-injector Discontinued 275 mg SC EVERY WEEK October 18, 2019 11:00pm January 17, 2020 9:24am adapalene 0.003 mg/mg topical gel (9 sources) [...] bromide 0.167 mg/ml inhalation solution (3 sources) Anticholinergic , beta2-Adrenergi c Agonist Start: 03-30-2024 End: 03-30-2024 ipratropium-albut kristen 3 mL nebulizer solution (DUONEB) Start: 03-30-2024 End: 03-30-2024 take 1 dose by inhalation once 3 mL, INHALATION, ONCE, 1 dose, On Tue03/30/24 at 0930, PROTECT FROM LIGHT. The unit-dose vial should remain stored in the protective foil pouch until time of use. Albuterol Sulfate 1 PUFF inhaler (1 source) Start: 05-19-2014 End: 08-02-2017 Albuterol Sulfate 1 PUFF inhaler Discontinued 1 - 2 NMA INHALATION EVERY 4 HOURS NEEDED as needed for Shortness Of Breath May 19, 2014 12:00am August 02, 2017 8:49am amoxicillin 875 mg / clavulanate 125 mg oral tablet (20 sources) Penicillin-class Antibacterial Start: 07-08-2024 End: 07-28-2024 Amoxicillin-Pot Clavulanate 875-125 mg tablet Discontinued 1 {tbl} PO TWICE A DAY July 10, 2024 12:00am July 28, 2024 10:26am Start: 05-10-2023 End: 06-01-2023 Amoxicillin-Pot Clavulanate 875-125 mg tablet Discontinued 1 {tbl} PO TWICE A DAY May 10, 2023 12:00am June 01, 2023 2:53pm Start: 05-10-2023 End: 06-01-2023 take 1 tablet by mouth twice daily Amoxicillin-Pot Clavulanate Discontinued 1 TABLET PO TWICE A DAY May 10, 2023 12:00am June 01, 2023 2:53pm Start: 01-23-2023 End: 06-01-2023 Amoxicillin-Pot Clavulanate 875-125 mg tablet Discontinued 1 {tbl} PO Q12H 14 0 January 22, 2023 11:00pm June 01, 2023 2:53pm Start: 01-23-2023 End: 06-01-2023 take 1 tablet by mouth every twelve hours Amoxicillin-Pot Clavulanate Discontinued 1 TABLET PO Q12H January 22, 2023 11:00pm June 01, 2023 2:53pm Start: 08-17-2022 End: 08-24-2022 take 1 tablet by mouth twice daily amoxicillin-clavulanic acid (AUGMENTIN) 875-125 mg per tablet Take 1 tablet by mouth twice daily for 7 days. 14 tablet 0 08/17/2022 08/24/2022 Active Comment on above: Take 1 tablet by [facility] twice daily for 7 days. ARIPiprazole 5 mg oral tablet (20 sources) Atypical Antipsychotic Start: 11-04-19 End: 03-30-20 Aripiprazole 5 mg tablet Discontinued 5 mg PO December 19, 2022 11:00pm June 01, 2023 2:53pm Comment on above: Take 5 mg by mouth. aspirin 81 mg delayed release oral tablet (20 sources) Platelet Aggregation Inhibitor, Nonsteroidal Anti-inflammatory Drug Start: 08-07-19 End: 02-14-20 take 1 tablet by mouth once daily Aspirin (Adult Aspirin Regimen) 81 mg tablet,delayed release (DR/EC) Discontinued 81 mg PO DAILY August 06, 2019 11:00pm February 14, 2020 2:27pm HX. PREECLAMPSIA Start: 11-02-2018 End: 02-21-2019 take 1 tablet by mouth once daily Aspirin 81 mg tablet,delayed release (DR/EC) Discontinued 81 mg PO DAILY November 01, 2018 11:00pm February 21, 2019 2:21pm azithromycin 250 mg oral tablet (20 sources) Macrolide Antimicrobial Start: 07-10-2024 End: 07-28-2024 Azithromycin 250 mg tablet Discontinued mg July 10, 2024 12:00am July 28, 2024 10:26am Start: 07-08-2024 End: 07-13-2024 take 2 tablets [...] PO daily 12 0 June 29, 2023 12:00am October 26, 2023 3:13pm 2 tablets today, then 1 tablet daily on days 2 through 11 Start: 03-10-2022 End: 04-14-2022 Azithromycin (Zithromax) 250 mg tablet Discontinued 0 PO .COMPLEX March 09, 2022 11:00pm April 14, 2022 2:18pm For 250 mg dose pack: take 500 mg today (day 1), then 250 mg for 4 days (days 2-5) PO baclofen 10 mg oral tablet (20 sources) gamma-Aminobutyric Acid-ergic Agonist Start: 07-02-2020 End: 02-20-2021 take 1 tablet by mouth at bedtime Baclofen 10 mg tablet Discontinued 10 mg PO AT BEDTIME 30 0 July 02, 2020 12:00am February 20, 2021 12:56pm benzonatate 100 mg oral capsule (20 sources) Non-narcotic Antitussive Start: 07-08-2024 End: 07-28-2024 take 2 capsules by mouth three times daily as needed for cough Benzonatate 100 mg capsule Discontinued 200 mg PO 3 TIMES DAILY NEEDED as needed for cough July 10, 2024 12:00am July 28, 2024 10:26am Start: 07-05-2017 End: 08-02-2017 take 2 capsules by mouth three times daily as needed for cough Benzonatate 100 MG capsule Discontinued 200 mg PO 3 TIMES DAILY NEEDED as needed for Cough 20 0 July 05, 2017 12:00am August 02, 2017 8:50am Start: 07-05-2017 End: 08-02-2017 take 200 mg [...] capsule Discontinued 1 mg PO DAILY October 25, 2023 11:00pm July 10, 2024 1:26pm Biotin 94748 MCG tablet dispersible Take by mouth. Active Blood-Glucose Meter (14 sources) Start: 10-11-2018 End: 01-12-2019 Blood-Glucose Meter Disconti nued 0 .ROUTE .MEDSUPPLY October 10, 2018 11:00pm January 12, 2019 12:21pm As directed Start: 10-11-2018 End: 01-12-2019 Blood-Glucose Meter Disconti nued 0 .ROUTE .MEDSUPPLY 1 October 11, 2018 12:00am January 12, 2019 1:21pm As directed Blood-Glucose Meter kit (17 sources) Start: 10-11-2018 End: 01-12-2019 Blood-Glucose Meter kit Disc ontinued 0 .ROUTE .MEDSUPPLY 1 0 October 10, 2018 11:00pm January 12, 2019 12:21pm As directed Start: 10-11-2018 End: 01-12-2019 Blood-Glucose Meter kit Disc ontinued 0 .ROUTE .MEDSUPPLY 1 0 October 11, 2018 12:00am January 12, 2019 1:21pm As directed Start: 10-11-2018 End: 01-12-2019 Blood-Glucose Meter kit Disc ontinued 0 .ROUTE .MEDSUPPLY 1 October 11, 2018 12:00am January 12, 2019 1:21pm As directed busPIRone hydrochloride 7.5 mg oral tablet (20 sources) Start: 12-12-2018 End: 02-21-2019 take 1 tablet by mouth twice daily Buspirone 7.5 mg tablet Discontinued 7.5 mg PO TWICE A DAY 60 1 December 11, 2018 11:00pm February 21, 2019 2:21pm cariprazine 1.5 mg oral capsule (17 sources) Atypical Antipsychotic Start: 12-02-2023 End: 01-13-2024 take 1 capsule by mouth once daily Cariprazine (Vraylar) 1.5 mg capsule Discontinued 1.5 mg PO DAILY 30 0 December 01, 2023 11:00pm January 13, 2024 10:04am cholecalciferol 0.05 mg oral capsule (20 sources) Vitamin D Start: 02-21-2025 End: 03-13-2025 take 1 capsule by mouth once daily Cholecalciferol (Vitamin D3) 50 mcg (2,000 unit) capsule Discontinued 50 ug PO daily February 20, 2025 11:00pm March 13, 2025 10:01am Start: 06-24-2022 take 25 ug by mouth once daily Cholecalciferol (Vitamin D3) Active 25 MCG PO DAILY June 24, 2022 12:00am Start: 10-27-2020 End: 02-20-2021 take 1 capsule by mouth once daily Cholecalciferol (Vitamin D3) 125 mcg (5,000 unit) capsule Discontinued 125 ug PO DAILY October 26, 2020 11:00pm February 20, 2021 12:56pm cholecalciferol (Vitamin D-3) 50 MCG (2000 UT) tablet Take by mouth daily. Active codeine phosphate 2 mg/ml / guaiFENesin 20 mg/ml oral solution (20 sources) Opioid Agonist Start: 05-20-2017 End: 06-16-2017 take 1 mL by mouth every six hours as needed Codeine-Guaifenesin (Cheratussin Ac) 10-100 mg/5 mL liquid Discontinued 10 mL PO EVERY 6 HOURS as needed for flu symptoms 120 0 May 20, 2017 12:00am June 16, 2017 10:24am Start: 05-20-2017 End: 06-16-2017 take 1 mL [...] capsule Discontinued 500 mg PO DAILY October 25, 2023 11:00pm January 13, 2024 10:04am administer with meals Start: 10-26-2023 End: 01-13-2024 take 1 capsule by mouth once daily at mealtime Cranberry 500 mg capsule Discontinued 500 mg PO DAILY October 26, 2023 12:00am January 13, 2024 11:04am administer with meals CRANBERRY PO Shakeel e by mouth daily. Active CRANBERRY PO Shakeel e by mouth daily. 0 Active cyclobenzaprine hydrochloride 5 mg oral tablet (20 sources) Muscle Relaxant Start: 02-18-2025 End: 03-13-2025 take 1 tablet by mouth three times daily as needed for muscle spasms Cyclobenzaprine 5 mg tablet Discontinued 5 mg PO THREE TIMES A DAY as needed for muscle spasm 30 0 February 17, 2025 11:00pm March 13, 2025 10:01am Start: 02-18-2025 take 1 tablet by shirin th three times daily as needed for muscle spasms Start: 02-18-2025 take 1 tablet by shirin th three times daily as needed for muscle spasms Start: 02-18-2025 take 1 tablet by shirin th three times daily as needed for muscle spasms Start: 01-13-2024 End: 09-17-2024 take 1 tablet by mouth at bedtime as needed for muscle spasms Cyclobenzaprine 7.5 mg tablet Discontinued 7.5 mg PO AT BEDTIME as needed for muscle spasm 20 0 January 12, 2024 11:00pm September 17, 2024 9:29am Start: 01-21-2020 End: 02-28-2020 take 1 tablet by mouth every six hours as needed for muscle spasms Cyclobenzaprine 10 mg tablet Discontinued 10 mg PO EVERY 6 HOURS as needed for muscle spasm 30 January 21, 2020 1:14pm February 28, 2020 8:44am Start: 10-05-2019 End: 01-21-2020 take 1 tablet by mouth three times daily as needed for muscle spasms Cyclobenzaprine 10 mg tablet Discontinued 10 mg PO THREE TIMES A DAY as needed for muscle spasm 30 October 04, 2019 11:00pm January 21, 2020 1:15pm Start: 02-21-2019 End: 03-22-2019 take 5-10 mg by mouth three times daily as needed for muscle spasms Cyclobenzaprine 10 mg tablet Discontinued 5 - 10 mg PO THREE TIMES A DAY as needed for muscle spasm 30 0 February 20, 2019 11:00pm March 22, 2019 9:05am 24 hr desvenlafaxine succinate 50 mg extended release oral tablet (20 sources) Serotonin and Norepinephrine Reuptake Inhibitor Start: 10-29-2022 End: 08-22-2024 take 1 tablet by mouth once daily Desvenlafaxine Succinate 50 mg tablet extended release 24 hr Discontinued 50 mg PO DAILY 90 March 01, 2024 6:24am August 22, 2024 2:49pm Start: 08-31-2022 End: 10-29-2022 Desvenlafaxine Succinate (Pr istiq) 25 mg tablet extended release 24 hr Discontinued 50 mg PO AT BEDTIME 30 October 28, 2022 1:38pm October 29, 2022 7:44am Start: 07-30-2022 End: 01-13-2024 take 1 tablet by mouth once daily, then take 1 tablet by mouth every twenty-four hours Desvenlafaxine Succinate (Pristiq) 25 mg tablet extended release 24 hr Discontinued 25 mg PO DAILY 30 0 December 26, 2023 4:12pm January 13, 2024 10:41am Comment on above: Take 25 mg by mouth once daily. diazePAM 2 mg oral tablet (20 sources) Benzodiazepine Start: 11-21-19 End: 02-08-20 take 1 tablet by mouth twice daily Diazepam (Valium) 2 mg tablet Discontinued 2 mg PO TWICE A DAY 30 0 November 19, 2018 11:00pm February 07, 2019 12:43pm docusate sodium 100 mg oral capsule (20 sources) Start: 02-14-20 End: 02-28-20 take 1 capsule by mouth twice daily Docusate Sodium 100 MG capsule Discontinued 100 mg PO TWICE A DAY 60 3 February 13, 2020 11:00pm February 28, 2020 8:44am escitalopram 20 mg oral tablet (20 sources) Serotonin Reuptake Inhibitor Start: 06-03-19 End: 03-10-20 take 1 tablet by mouth once daily Escitalopram Oxalate 20 mg tablet Discontinued 20 mg PO DAILY 60 1 June 03, 2021 11:13am March 10, 2022 7:19am Start: 05-05-2021 End: 06-03-2021 Escitalopram Oxalate 10 mg t ablet Discontinued 10 mg PO DAILY 30 May 05, 2021 12:00am June 03, 2021 11:15am Take 1/2 tablet for 2 weeks then increase to 1 tablet Levonorgestrel-Ethinyl Estrad (20 sources) Progestin, Estrogen, Progestin-containing Intrauterine Device Start: 07-11-2020 End: 10-27-2020 Levonorgestrel-Ethinyl Estrad 90-20 mcg (28) tablet Discontinued 1 {tbl} PO DAILY 84 4 July 11, 2020 12:00am October 27, 2020 9:41am Start: 07-11-2020 End: 10-27-2020 Levonorgestrel-Ethinyl Estra d [...] PO DAILY 63 3 June 23, 2020 12:00am July 11, 2020 12:56pm Start: 06-23-2020 End: 07-11-2020 take 1 tablet by mouth once daily Norethindrone Ac-Eth Estradiol Discontinued 1 TABLET PO DAILY 63 June 23, 2020 12:00am July 11, 2020 12:56pm Start: 03-26-2020 End: 06-23-2020 Norethindrone Ac-Eth Estradi ol (Loestrin 1/20 (21)) 1-20 mg-mcg tablet Discontinued 1 {tbl} PO DAILY 63 4 March 26, 2020 12:00am June 23, 2020 1:29pm Start: 03-26-2020 End: 06-23-2020 Norethindrone Ac-Eth Estradi ol (Loestrin 1/20 (21)) 1-20 mg-mcg tablet Discontinued 1 {tbl} PO DAILY 63 March 26, 2020 1:00am June 23, 2020 2:29pm Start: 03-26-2020 End: 06-23-2020 Norethindrone Ac-Eth Estradi ol (Loestrin 20 (21)) 1-20 mg-mcg tablet Discontinued 1 {tbl} PO DAILY 63 March 26, 2020 1:00am June 23, 2020 2:29pm Start: 03-26-2020 End: 06-23-2020 take 0.05 ug by mouth once daily Norethindrone Ac-Eth Estradiol (Loestrin 20 (21)) 1-20 mg-mcg tablet Discontinued 1 TABLET PO DAILY March 26, 2020 12:00am June 23, 2020 1:29pm Start: 03-26-2020 End: 06-23-2020 take 0.05 ug by mouth once daily Norethindrone Ac-Eth Estradiol (Loestrin 20 (21)) 1-20 mg-mcg tablet Discontinued 1 TABLET PO DAILY March 26, 2020 1:00am June 23, 2020 2:29pm famotidine 40 mg oral tablet (17 sources) Histamine-2 Receptor Antagonist Start: 03-09-2024 End: 05-25-2024 take 1 tablet by mouth at bedtime Famotidine 40 mg tablet Discontinued 40 mg PO AT BEDTIME 30 March 08, 2024 11:00pm May 25, 2024 9:40am ferrous sulfate 325 mg oral tablet (20 sources) Start: 11-30-2018 End: 02-21-2019 take 1 tablet by mouth twice daily Ferrous Sulfate (Feosol) 325 mg (65 mg iron) tablet Discontinued 325 mg PO TWICE A DAY 60 November 29, 2018 11:00pm February 21, 2019 2:21pm fluconazole 200 mg oral tablet (20 sources) Azole Antifungal Start: 05-10-2023 End: 06-01-2023 take 1 tablet by mouth once daily Fluconazole 200 mg tablet Discontinued 200 mg PO DAILY 1 May 10, 2023 12:00am June 01, 2023 2:54pm AFTER completing antibiotic as prescribed (if symptomatic [...] PO ONCE 1 0 April 21, 2020 12:00am June 03, 2020 10:17am as a single dose Start: 05-11-2019 End: 06-28-2019 take 1 tablet by mouth once Fluconazole 150 mg tablet Discontinued 150 mg PO ONCE 2 0 May 11, 2019 12:00am June 28, 2019 1:16pm Start: 07-07-2017 End: 08-02-2017 Fluconazole 150 mg tablet Discontinued 150 mg PO .COMPLEX 2 0 July 07, 2017 12:00am August 02, 2017 8:50am 150 mg PO take one po now and repeat in 3 days Comment on above: Take 1 tablet by shirin once daily for 1 day. fluticasone propionate 0.05 mg/actuat metered dose nasal spray (20 sources) Corticosteroid Start: 01-24-20 End: 06-01-19 24 take 50 ug nasal route once daily as needed Fluticasone Propionate (Allergy Relief (Fluticasone)) 50 mcg/actuation spray,suspension Discontinued 1 NMA INTRANASAL DAILY as needed for nasal congestion 16 January 22, 2023 11:00pm June 01, 2023 2:54pm administer into each nostril Start: 01-23-2023 End: [...] guaiFENesin 600 mg extended release oral tablet (20 sources) Start: 01-23-2023 End: 06-01-2023 take 1 tablet by mouth every twelve hours as needed for congestion Guaifenesin 600 mg tablet extended release 12hr Discontinued 600 mg PO Q12H as needed for congestion 14 January 22, 2023 11:00pm June 01, 2023 2:54pm Start: 01-23-2023 End: 06-01-2023 take 600 mg by mouth every twelve hours Guaifenesin Discontinued 600 MG PO Q12H 14 January 22, 2023 11:00pm June 01, 2023 2:54pm hydrocortisone 10 mg/ml / neomycin 3.5 mg/ml / polymyxin b 02784 unt/ml otic suspension (20 sources) Aminoglycoside Antibacterial, Polymyxin-class Antibacterial, Corticosteroid Start: 03-30-2018 End: 04-09-2018 Vbpztgce-Erwumjslv-Ei 3.5-10,000-1 mg/mL-unit/mL-% drops,suspension Discontinued 4 NMA OTIC THREE TIMES A DAY 10 March 30, 2018 12:00am April 08, 2018 12:00am April 09, 2018 12:14am right ear Start: 03-30-2018 End: 04-09-2018 Tadjpfzy-Rcdyiybkt-Ur Discon tinued 4 DRP OTIC THREE TIMES A DAY 10 March 30, 2018 12:00am April 09, 2018 12:14am right ear insulin isophane, human 100 unt/ml injectable suspension (20 sources) Start: 10-27-2019 End: 02-14-2020 Insulin Nph Isoph U-100 Tracey n 100 UNIT/ML suspension Discontinued 14 U subcut .bedtime October 27, 2019 4:12pm February 14, 2020 2:27pm GESTATIONAL DIABETES Start: 08-23-2019 End: 10-27-2019 Insulin Nph Isoph U-100 Tracey n (Humulin N Nph U-100 Insulin) 100 unit/mL suspension Discontinued 4 U SC .bedtime 10 August 22, 2019 11:00pm October 27, 2019 4:12pm Missed Unspecified diabetes mellitus in , first trimester iopamidol (ISOVUE-300) 61 % injection 25 mL (1 source) Start: 04-30-2020 End: 04-30-2020 iopamidol (ISOVUE-300) 61 % injection 25 mL ipratropium bromide 0.021 mg/actuat metered dose nasal spray (2 sources) Anticholinergic Start: 02-21-2025 End: 03-07-2025 Ipratropium [place] 21 mcg (0.03 %) spray,non-aerosol Discontinued 2 NMA INTRANASAL 2 to 3 times per day as needed for postnasal drainage 30 0 February 20, 2025 11:00pm March 07, 2025 10:00am administer into each nostril isoniazid 100 mg oral tablet (17 sources) Antimycobacterial Start: 01-13-2024 End: 07-10-2024 take 1 tablet by mouth once daily Isoniazid 100 mg tablet Discontinued 300 mg PO DAILY January 12, 2024 11:00pm July 10, 2024 1:27pm Lactobacillus Combination No.4 (Probiotic) 3 billion cell capsule (17 sources) Start: 11-11-2023 End: 01-13-2024 take 3 capsules by mouth once daily Lactobacillus Combination No.4 (Probiotic) 3 billion cell capsule Discontinued 3000 NMA PO DAILY November 10, 2023 11:00pm January 13, 2024 10:04am administer with a meal Start: 11-11-2023 End: 01-13-2024 take 3 capsules [...] for Pain 5 0 October 17, 2018 4:08pm February 21, 2019 2:22pm Start: 01-13-2018 End: 02-14-2018 Lidocaine Hcl (Lidocaine Vis cous) 2 % solution Discontinued 15 mL MUCOUS MEM 2 to 4 times per day as needed for mouth pain 100 1 January 12, 2018 11:00pm February 14, 2018 8:04am megestrol acetate 20 mg oral tablet (12 sources) Progestin Start: 12-28-2024 End: 01-11-2025 take 1 tablet by mouth once daily Megestrol 20 mg tablet Discontinued 20 mg PO daily 30 30 0 December 27, 2024 11:00pm January 25, 2025 11:00pm January 11, 2025 1:39pm meloxicam 7.5 mg oral tablet (20 sources) Nonsteroidal Anti-inflammatory Drug Start: 02-21-2019 End: 02-21-2019 take 1 tablet by mouth once daily as needed for pain Meloxicam 7.5 mg tablet Discontinued 7.5 mg PO DAILY as needed for pain 30 1 February 20, 2019 11:00pm February 21, 2019 2:21pm methocarbamol 500 mg oral tablet (16 sources) Muscle Relaxant Start: 09-03-2024 End: 01-11-2025 take 1 tablet by mouth three times daily as needed for pain Methocarbamol 500 mg tablet Discontinued 500 mg PO THREE TIMES A DAY as needed for pain/spasms 60 0 September 02, 2024 11:00pm January 11, 2025 1:36pm methylPREDNISolone 4 mg oral tablet (20 sources) Corticosteroid Start: 03-10-2022 End: 04-14-2022 Methylprednisolone 4 mg tablets,dose pack Discontinued 0 PO per package directions March 09, 2022 11:00pm April 14, 2022 2:18pm PO PER PKG DIR Start: 03-10-2022 End: [...] 1 tablet by mouth once Methylprednisolone (Medrol (Queta)) 4 mg tablets,dose pack Discontinued 0 PO per package directions July 02, 2020 12:00am October 27, 2020 9:41am PO PER PKG DIR Start: 02-21-2019 End: 03-22-2019 take 1 tablet by mouth once Methylprednisolone (Medrol (Queta)) 4 mg tablets,dose pack Discontinued 0 PO per package directions February 20, 2019 11:00pm March 22, 2019 9:06am PO PER PKG DIR Multivit 56-Pkrt-Stfvvr 6-Dh a (Prenate Dha) 28 mg iron-1 mg -300 mg capsule (20 sources) Start: 02-02-2019 End: 03-22-2019 Multivit 67-Vfrv-Umdqph 6-Dh a (Prenate Dha) 28 mg iron-1 mg -300 mg capsule Discontinued 1 NMA PO .daily February 02, 2019 2:36pm March 22, 2019 9:06am Start: 02-02-2019 End: 03-22-2019 Multivit 07-Hxjp-Czfqxa 6-Dh a (Prenate Dha) 28 mg iron-1 mg - 300 mg capsule Discontinued 1 NMA PO .daily February 02, 2019 3:36pm March 22, 2019 10:06am Start: 02-02-2019 End: 03-22-2019 Multivit 42-Gnyy-Dfunke 6-Dh a (Prenate Dha) 28 mg iron-1 mg - 300 mg capsule Discontinued 1 NMA PO .daily February 02, 2019 3:36pm March 22, 2019 10:06am Start: 10-18-2018 End: 02-02-2019 Multivit 14-Rluo-Qxdszb 6-Dh a (Prenate Dha) 28 mg iron-1 mg - 300 mg capsule Discontinued 1 NMA PO .daily October 17, 2018 11:00pm February 02, 2019 2:37pm Start: 10-18-2018 End: 02-02-2019 Multivit 03-Tcoh-Tufdzy 6-Dh a (Prenate Dha) 28 mg iron-1 mg - 300 mg capsule Discontinued 1 NMA PO .daily October 18, 2018 12:00am February 02, 2019 3:37pm Start: 10-18-2018 End: 02-02-2019 Multivit 07-Nmgf-Ckwcko 6-Dh a (Prenate Dha) 28 mg iron-1 [...] 12:00am December 06, 2017 8:07am Multivitamin capsule (17 sources) Start: 09-05-2017 End: 12-06-2017 Multivitamin capsule Discont inued 1 NMA PO EVERY MORNING September 04, 2017 11:00pm December 06, 2017 7:07am Start: 09-05-2017 End: 12-06-2017 Multivitamin capsule Discont inued 1 NMA PO EVERY MORNING September 05, 2017 12:00am December 06, 2017 8:07am Multivitamin tablet (17 sources) Start: 12-20-2022 End: 07-10-2024 Multivitamin tablet Disconti nued 1 {tbl} PO DAILY December 19, 2022 11:00pm July 10, 2024 1:27pm Start: 12-20-2022 End: 07-10-2024 Multivitamin tablet Disconti nued 1 {tbl} PO DAILY December 20, 2022 12:00am July 10, 2024 2:27pm Vfapldlytvkis-Og-Wrki-Minera ls (MULTIPLE VITAMIN, WOMENS) tab (9 sources) Start: 09-02-2017 End: 03-30-2024 take 1 tablet by mouth once daily Hytsjxbvsqsir-Ea-Bbzr-Minerals (MULTIPLE VITAMIN, WOMENS) tab Take 1 tablet by mouth once daily. 09/02/2017 03/30/2024 Discontinued (Course of therapy completed) Start: 09-02-2017 take 1 tablet by shirin th once daily Fqxncykqzcyva-Xz-Wtyk-Minerals (MULTIPLE VITAMIN, WOMENS) tab Take 1 tablet by mouth once daily. 0 09/02/2017 Active Comment on above: Take 1 tablet by shirin th once daily. naproxen 500 mg oral tablet (20 sources) Nonsteroidal Anti-inflammatory Drug Start: 3 End: 3 take 1 tablet by mouth twice daily as needed for pain Naproxen 500 mg tablet Discontinued 500 mg PO TWICE A DAY as needed for pain 20 0 September 06, 2022 11:00pm September 21, 2022 8:51am Danielle macedo (20 sources) Start: 2 End: Nirmatrelvir-Ritonavi r (Paxlovid (Eua)) 300 mg (150 mg x 2)-100 mg tablet Discontinued 0 PO .COMPLEX 30 0 November 10, 2021 11:00pm December 09, 2021 12:11pm take TWO 150 mg tablets of nirmatrelvir with ONE 100 mg tablet of ritonavir twice daily for 5 days PO Start: 11-11-2021 End: 12-09-2021 Nirmatrelvir-Ritonavir (Paxl ovid (Eua)) 300 mg (150 mg x 2)-100 mg tablet Discontinued 0 PO .COMPLEX 30 0 November 11, 2021 12:00am December 09, 2021 [...] tablet Discontinued 0 PO .COMPLEX 30 November 10, 2021 11:00pm December 09, 2021 [...] 100 mg PO ONCE February 12, 2020 4:21am February 28, 2020 8:44am uti must administer with a meal/food Start: 12-13-2019 End: 01-17-2020 take 1 capsule by mouth twice daily at mealtime Nitrofurantoin Monohyd/M-Cryst (Macrobid) 100 mg capsule Discontinued 100 mg PO TWICE A DAY 14 0 December 12, 2019 11:00pm January 17, 2020 9:25am must administer with a meal/food Start: 10-27-2019 End: 11-16-2019 take 1 capsule by mouth twice daily Nitrofurantoin Monohyd/M-Cryst 100 MG capsule Discontinued 100 mg PO TWICE A DAY 13 0 October 26, 2019 11:00pm November 16, 2019 3:03pm uti Start: 04-11-2019 End: 05-11-2019 take 1 capsule by mouth twice daily at mealtime Nitrofurantoin Monohyd/M-Cryst (Macrobid) 100 mg capsule Discontinued 100 mg PO TWICE A DAY 20 0 April 11, 2019 12:00am May 11, 2019 10:45am must administer with a meal/food nystatin 100 unt/mg topical powder (20 sources) Polyene Antifungal Start: 09-09-2022 End: 09-21-2022 Nystatin 100,000 unit/gram powder Discontinued 1 NMA TOPICAL DAILY 15 0 September 08, 2022 11:00pm September 21, 2022 8:51am Candidiasis of skin Candidiasis of skin and nail Start: 09-09-2022 End: 09-21-2022 Nystatin Discontinued 1 APPL IC TOPICAL DAILY September 08, 2022 11:00pm September 21, 2022 8:51am orlistat 120 mg oral capsule (20 sources) Intestinal Lipase Inhibitor Start: 12-09-2021 End: 04-14-2022 take 1 capsule by mouth three times daily 1 hour(s) after mealtime Orlistat 120 mg capsule Discontinued 120 mg PO THREE TIMES A DAY 90 12 December 08, 2021 11:00pm April 14, 2022 2:19pm administer during or up to 1 hour after meal oxyCODONE hydrochloride 5 mg oral tablet (20 sources) Opioid Agonist Start: 02-14-2020 End: 02-21-2020 take 1 tablet by mouth every six hours as needed for pain Oxycodone 5 MG tablet Discontinued 5 mg PO EVERY 6 HOURS NEEDED as needed for Pain Score 6-10/10 15 7 0 February 14, 2020 February 19, 2020 11:00pm February 20, 2020 11:02pm delivery delivered Encounter for delivery without indication [...] pantoprazole 40 mg delayed release oral tablet (17 sources) Proton Pump Inhibitor Start: 03-09-2024 End: 05-25-2024 take 1 tablet by mouth twice daily Pantoprazole 40 mg tablet,delayed release (DR/EC) Discontinued 40 mg PO TWICE A DAY 60 March 08, 2024 11:00pm May 25, 2024 9:39am phentermine hydrochloride 37.5 mg oral tablet (20 [...] PO DAILY 30 0 August 23, 2022 1:55pm December 20, 2022 9:28am must administer 30 minutes before or 1-2 hours after breakfast BMI 33 Start: 10-12-2021 End: 12-05-2021 take 1 tablet by mouth once daily 30 minutes after breakfast Phentermine (Adipex-P) 37.5 mg tablet Discontinued 37.5 mg PO DAILY 30 30 0 November 05, 2021 2:42pm December 03, 2021 11:00pm December 04, 2021 11:05pm BMI 36.5 must administer 30 minutes before or 1-2 hours after breakfast Start: 09-10-2021 End: 10-10-2021 take 1 tablet by mouth once daily 30 minutes after breakfast Phentermine (Adipex-P) 37.5 mg tablet Discontinued 37.5 mg PO DAILY 30 30 0 September 09, 2021 11:00pm October 08, 2021 11:00pm October 09, 2021 11:05pm must administer 30 minutes before or 1-2 hours after breakfast End: 03-30-2024 phentermine HCl (ADIPEX-P OR AL) Take by mouth. 03/30/2024 Discontinued (Course of therapy completed) phentermine HCl (ADIPEX-P ORAL) Take by mouth. 0 Active Comment on above: Take by mouth. Pnv 331-Oasdb-Abiwd-3-Fish Oil (14 sources) Start: 10-27-2019 End: 02-28-2020 Pnv 970-Jivfw-Quqgl-3-Fish Oil Discontinued 1 EACH PO DAILY October 26, 2019 11:00pm February 28, 2020 8:44am Start: 10-27-2019 End: 02-28-2020 Pnv 054-Wwwan-Jtuze-3-Fish O il Discontinued 1 EACH PO DAILY October 27, 2019 12:00am February 28, 2020 9:44am Pnv 656-Ytxsu-Scwcd-3-Fish O il 1 EACH tablet,chewable (17 sources) Start: 10-27-2019 End: 02-28-2020 Pnv 911-Pdaiq-Cugdj-3-Fish O il 1 EACH tablet,chewable Discontinued 1 NMA PO DAILY October 26, 2019 11:00pm February 28, 2020 8:44am VITAMIN Start: 10-27-2019 End: 02-28-2020 Pnv 857-Nppst-Hhdye-3-Fish O il 1 EACH tablet,chewable Discontinued 1 NMA PO DAILY October 27, 2019 12:00am February 28, 2020 9:44am VITAMIN Start: 10-27-2019 End: 02-28-2020 Pnv 017-Evajp-Nffsx-3-Fish O il 1 EACH tablet,chewable Discontinued 1 [...] ontinued 0 PO daily 30 0 March 21, 2019 11:00pm May 11, 2019 10:45am 4 tabs for 3 days, then 3 tabs for 3 days, then 2 tabs for 3 days, then 1 tab for 3 days PO QDAY; administer with food or milk [id number] fum 28 mg iron-folate no.6 1 mg-dha 300 mg capsule (20 sources) Start: 02-02-2019 End: 03-22-2019 take 1 capsule by mouth once daily [id number] fum 28 mg iron-folate no.6 1 mg-dha 300 mg capsule Discontinued 1 CAP PO .daily February 02, 2019 2:36pm March 22, 2019 9:06am Start: 02-02-2019 End: 03-22-2019 take 1 capsule by mouth once daily [id number] fum 28 mg iron-folate no.6 1 mg-dha 300 mg capsule Discontinued 1 CAP PO .daily February 02, 2019 3:36pm March 22, 2019 10:06am Start: 10-18-2018 End: 02-02-2019 take 1 capsule by mouth once daily [id number] fum 28 mg iron-folate no.6 1 mg-dha 300 mg capsule Discontinued 1 CAP PO .daily October 17, 2018 11:00pm February 02, 2019 2:37pm Start: 10-18-2018 End: 02-02-2019 take 1 capsule by mouth once daily [id number] fum 28 mg iron-folate no.6 1 mg-dha [...] each 12/02/2023 07/13/2024 Discontinued (Therapy completed) Semaglutide (20 sources) Start: 12-20-2022 End: 07-10-2024 Semaglutide (Ozempic) 0.25 m g or 0.5 mg (2 mg/3 mL) pen injector Discontinued 0.25 mg SC Q7D December 19, 2022 11:00pm July 10, 2024 1:27pm weekly Start: 12-20-2022 End: 07-10-2024 Semaglutide (Ozempic) [...] 2022 12:00am sertraline 50 mg oral tablet (20 sources) Serotonin Reuptake Inhibitor Start: 06-28-2019 End: 08-15-2019 take 1 tablet by mouth once daily Sertraline 50 mg tablet Discontinued 50 mg PO daily 30 June 28, 2019 12:00am August 15, 2019 9:07am spironolactone 50 mg oral tablet (8 sources) [...] daily. Take one pill twice daily sucralfate 100 mg/ml oral suspension (20 sources) Aluminum Complex Start: End: take 1 mL by mouth before mealtime Sucralfate 100 mg/mL suspension Discontinued 10 mL PO before meals 1000 3 April 02, 2024 12:00am May 25, 2024 9:39am Start: 03-09-2024 End: 04-02-2024 take 1 tablet by mouth before mealtime Sucralfate 1 gram tablet Discontinued 1 g PO before meals 90 2 March 08, 2024 11:00pm April 02, 2024 10:06am On Hold: just got prescribed Sucralfate 100 mg/mL suspension (11 sources) Start: 04-02-2024 End: 05-25-2024 take 1 mL [...] mg / trimethoprim 160 mg oral tablet (20 sources) Dihydrofolate Reductase Inhibitor Antibacterial, Sulfonamide Antimicrobial Start: 02-21-2025 End: 02-28-2025 Sulfamethoxazole-Trimethopri m (Bactrim Ds) 800-160 mg tablet Discontinued 1 {tbl} PO Q12H 14 7 0 February 20, 2025 11:00pm February 26, 2025 11:00pm February 27, 2025 11:10pm Start: 04-23-2020 End: 04-28-2020 Sulfamethoxazole-Trimethopri m (Bactrim Ds) 800-160 mg tablet Discontinued 1 {tbl} PO TWICE A DAY 10 5 0 April 23, 2020 12:00am April 27, 2020 12:00am April 28, 2020 12:03am terconazole 4 mg/ml vaginal cream (20 sources) Azole Antifungal Start: 11-06-2018 End: 11-13-2018 Terconazole 0.4 % cream Discontinued 1 NMA VAGINAL AT BEDTIME 45 7 0 November 05, 2018 11:00pm November 11, 2018 11:00pm November 12, 2018 11:08pm Start: 11-06-2018 End: 11-13-2018 Terconazole Discontinued 1 A PPFUL VAGINAL AT BEDTIME 45 7 November 05, 2018 11:00pm November 12, 2018 11:08pm tranexamic acid 650 mg oral tablet (20 sources) Antifibrinolytic Agent Start: 02-07-2025 End: 02-12-2025 take 2 tablets by mouth three times daily Tranexamic Acid 650 mg tablet Discontinued 1300 mg PO THREE TIMES A DAY 30 5 0 February 06, 2025 11:00pm February 10, 2025 11:00pm February 11, 2025 11:08pm Start: 06-01-2023 End: 10-26-2023 take 2 tablets by mouth three times daily Tranexamic Acid 650 mg tablet Discontinued 1300 mg PO THREE TIMES A DAY 30 5 12 June 01, 2023 12:00am October 26, 2023 3:13pm Start: 06-01-2023 take 1300 mg by mout h three times daily Tranexamic Acid Active 1300 MG PO THREE TIMES A DAY 30 June 01, 2023 12:00am Start: 05-17-2019 End: 06-28-2019 Tranexamic Acid (Lysteda) 65 0 mg tablet Discontinued 1300 mg PO THREE TIMES A DAY 30 09 23May 17, 2019 12:00am June 28, 2019 1:16pm begin at onset of menstrual bleeding 24 hr venlafaxine 75 mg extended release oral capsule (20 sources) Serotonin and Norepinephrine Reuptake Inhibitor Start: 10-19-2017 End: 02-28-2018 take 1 capsule by mouth once daily Venlafaxine 75 mg capsule,extended release 24hr Discontinued 75 mg PO daily 90 3 January 10, 2018 9:26am February 28, 2018 8:42am vilazodone hydrochloride 20 mg oral tablet (9 [...] directed vitamin b6 100 mg oral tablet (17 sources) Start: 01-13-2024 End: 07-10-2024 take 1 tablet by mouth once daily Pyridoxine (Vitamin B6) 100 mg tablet Discontinued 100 mg PO DAILY January 12, 2024 11:00pm July 10, 2024 1:27pm vortioxetine 5 mg oral tablet (20 sources) Start: 06-03-2020 End: 10-27-2020 take 1 tablet by mouth once daily Vortioxetine (Trintellix) 5 mg tablet Discontinued 5 mg PO DAILY 30 June 03, 2020 12:00am October 27, 2020 9:42am Wegovy 0.25 MG/0.5ML solution auto-injector (2 sources) Start: 09-06-2024 End: 11-07-2024 Wegovy 0.25 MG/0.5ML solution auto-injector Indications: Insulin resistance , BMI 30.0-30.9,adult , Class 1 obesity due to excess calories with serious comorbidity and body mass index (BMI) of 30.0 to 30.9 in adult Inject 0.5 mL (0.25 mg) under the skin every 7 days. 2 mL 09/06/2024 11/07/2024 Discontinued (Cost of medication) zinc gluconate 100 mg oral tablet (14 sources) Start: 02-21-2025 End: 03-07-2025 take 1 tablet by mouth once daily Zinc Gluconate 100 mg tablet Discontinued 100 mg PO daily February 20, 2025 11:00pm March 07, 2025 10:00am zinc 50 MG table t Take by mouth 1 (one) time each day. Active Problems Active Problems Problem Classification Problem Date Documented Da te Episodic/Chronic Anxiety disorders (20 sources) Generalized anxiety disorder; Translations: [Generalized anxiety disorder] Onset: Chronic Appendicitis and other appendiceal conditions (20 sources) Acute appendicitis; Translations: [Unspecified acute appendicitis] 12-01-2018 Episodic Asthma (20 sources) Asthma; Translations: [Unspecified asthma, uncomplicated] Onset: 6 06-23-2005 Chronic Comment on above: stable Attention-deficit, conduct, and disruptive behavior disorders (19 sources) Attention deficit hyperactivity disorder; Translations: [Attention-deficit hyperactivity disorder, unspecified type] Onset: 0 09-30-2009 Chronic Conditions associated with dizziness or vertigo (20 sources) Lightheadedness; Translations: [Dizziness and giddiness] Onset: 5 01-06-2025 Episodic Contraceptive and procreative management (3 sources) Encounter for contraceptive management, unspecified; Translations: [Unspecified contraceptive management] 07-30-2022 Episodic Deficiency and other anemia (20 sources) Anemia; Translations: [Anemia, unspecified] 06-28-2019 Episodic Comment on above: repeat CBC 11/30/18, iron ordered Deficiency and other anemia (20 sources) Normocytic normochromic anemia; Translations: [Anemia, unspecified] 01-06-2025 Episodic Deficiency and other anemia (1 source) Anemia, unspecified; Translations: [Anemia, unspecified] Onset: Episodic Diabetes or abnormal glucose tolerance complicating ; childbirth; or the puerperium (20 sources) Abnormal glucose level; Translations: [Abnormal glucose complicating ] 08-23-2019 Episodic Comment on above: Needs 3hr GTT Initial BS WNL. 11/02 check FBS, and 2 hr pp. 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 Considering 3hr GTT Esophageal disorders (20 sources) Gastroesophageal reflux disease; Translations: [Gastro-esophageal reflux disease without esophagitis] Onset: 5 06-28-2019 Chronic Gastrointestinal hemorrhage (20 sources) Rectal hemorrhage; Translations: [Hemorrhage of anus [...] 11-21-2018 Episodic Comment on above: recheck at [facility]. Pelvic rest Immunizations and screening for infectious disease (20 sources) Suspected disease caused by 2019-nCoV; Translations: [Suspected COVID-19 virus infection] Onset: 5 Episodic Inflammatory diseases of female pelvic organs (20 sources) Vaginitis; Translations: [Acute vaginitis] Episodic Influenza (20 sources) Influenza due to Influenza A virus; Translations: [Influenza due to other identified influenza virus with other respiratory manifestations] Onset: 5 07-28-2024 Episodic Joint disorders and dislocations; trauma-related (1 source) Acetabular labrum tear 01-18-2025 Chronic Malaise and fatigue (20 sources) Malaise and fatigue; Translations: [Other malaise] Onset: 5 12-01-2018 Episodic Menstrual disorders (20 sources) Irregular periods; Translations: [Irregular menstruation, unspecified] Onset: 5 05-25-2021 Chronic Mood disorders (20 sources) Depressive disorder; Translations: [Depression] Onset: 2 05-18-2021 Chronic Mycoses (20 sources) Candidiasis of skin; Translations: [Candidiasis of skin and nail] 09-09-2022 Episodic Nausea and vomiting (20 sources) Nausea and vomiting; Translations: [Nausea with vomiting, unspecified] 01-12-2023 Episodic Nonmalignant breast conditions (20 sources) Pain of breast; Translations: [Mastodynia] Onset: 5 Resolved: 1 Episodic Nonspecific chest pain (13 sources) Tight chest; Translations: [Other chest pain] Onset: 5 01-06-2025 Episodic Nutritional deficiencies (8 sources) Vitamin D deficiency; Translations: [Vitamin D deficiency, unspecified] Onset: 5 09-17-2024 Chronic Other acquired deformities (20 sources) Scoliosis deformity of spine; Translations: [Scoliosis, [...] of ; puerperium affecting management of mother (20 sources) Abnormality of heart; Translations: [Maternal care for other (suspected) abnormality and damage, not applicable or unspecified] 11-29-2019 Episodic Comment on above: echo planned, treatment center consult Other complications of (20 sources) History of pre-eclampsia; Translations: [Supervision of with other poor reproductive or obstetric history, unspecified trimester] 12-01-2018 Episodic Comment on above: baseline labs. baby asa at 12 weeks Other connective tissue disease (20 sources) Foot pain; Translations: [Pain in right foot] 12-01-2018 Episodic Other connective tissue disease (1 source) Diastasis recti; Translations: [Separation of muscle (nontraumatic), other site] 12-02-2022 Episodic Other connective tissue disease (17 sources) Cramp in lower limb; Translations: [Cramp and spasm] 01-13-2024 Episodic Other connective tissue disease (6 sources) Pain in both feet; Translations: [Pain in right foot] 01-12-2023 Episodic Other disorders of stomach and duodenum (18 sources) Delayed gastric emptying; Translations: [Functional dyspepsia] 03-31-2024 Episodic Other endocrine disorders (20 sources) Polycystic ovary syndrome; Translations: [Polycystic ovarian syndrome] 10-27-2019 Chronic Other female genital disorders (20 sources) Abnormal uterine bleeding; Translations: [Abnormal uterine and vaginal bleeding, unspecified] 10-27-2019 Chronic Comment on above: lysteda Other female genital disorders (20 sources) Vulvodynia; Translations: [Vulvodynia, unspecified] 04-22-2023 Chronic Other female genital disorders (5 sources) Vulvodynia, unspecified; Translations: [Vulvodynia, unspecified] 04-22-2023 Chronic Other female genital disorders (1 source) Abnormal uterine and vaginal bleeding, unspecified; Translations: [Abnormal uterine and vaginal bleeding, unspecified] Onset: 5 Chronic Other female genital disorders (1 source) Other specified abnormal uterine and vaginal bleeding; Translations: [Other specified abnormal uterine and vaginal bleeding] Onset: 5 Chronic Other female genital disorders (20 sources) Endocervical polyp; Translations: [Polyp of cervix uteri] 12-01-2018 Episodic Comment on above: <4mm friable;noted o n NOB exam Other female genital disorders (12 sources) Vaginal discharge; Translations: [Other specified noninflammatory disorders of vagina] 12-03-2024 Episodic Other female genital disorders (12 sources) Vaginal odor; Translations: [Other specified noninflammatory disorders of vagina] 12-03-2024 Episodic Other gastrointestinal disorders (20 sources) Irritable bowel syndrome; Translations: [Irritable bowel syndrome without diarrhea] Onset: 6 Resolved: 6 06-28-2019 Chronic Other gastrointestinal disorders (1 source) Irritable bowel syndrome without diarrhea; Translations: [Irritable bowel syndrome, unspecified] Onset: 5 Chronic Other gastrointestinal disorders (20 sources) History of irritable bowel syndrome; Translations: [Personal history of other diseases of the digestive system] 01-12-2023 Episodic Other gastrointestinal disorders (19 sources) Constipation; Translations: [Constipation, unspecified] 06-06-2024 Episodic Other gastrointestinal disorders (17 sources) Diarrhea; Translations: [Diarrhea, unspecified] 07-18-2024 Episodic Other lower respiratory disease (12 sources) Cough; Translations: [Cough] Episodic Other lower respiratory disease (2 sources) Cough; Translations: [Acute cough] 11-08-2024 Episodic Other lower respiratory disease (1 source) Lower respiratory tract infection; Translations: [Unspecified acute lower respiratory infection] 07-08-2024 Episodic Other nervous system disorders (1 source) Other chronic pain; Translations: [Other chronic pain] Onset: 5 Chronic Other non-traumatic joint disorders (20 sources) Hip pain; Translations: [Pain in right hip] 12-01-2018 Episodic Other non-traumatic joint disorders (20 sources) Pain in left knee; Translations: [Left knee pain] 01-12-2023 Episodic Other non-traumatic joint disorders (7 sources) Pain in right knee; Translations: [Pain in joint, lower leg] 12-20-2022 Episodic Other non-traumatic joint disorders (20 sources) Effusion of joint of left knee; Translations: [Effusion, left knee] 01-14-2023 Episodic Other non-traumatic joint disorders (2 sources) Effusion, left knee; Translations: [Effusion of joint, lower leg] 01-14-2023 Episodic Other non-traumatic joint disorders (6 sources) Multiple joint pain; Translations: [Pain in unspecified joint] 01-18-2025 Episodic Other non-traumatic joint disorders (2 sources) Pain in unspecified joint; Translations: [Pain in joint, multiple sites] Onset: 5 Episodic Other nutritional; endocrine; and metabolic disorders [...] nutritional; endocrine; and metabolic disorders (20 sources) Hypocalcemia; Translations: [Hypocalcemia] 12-01-2018 Chronic Other [...] nutritional; endocrine; and metabolic disorders (10 sources) Obesity caused by energy imbalance; Translations: [...] Second draw between 11/15-11/29 Other skin disorders (20 sources) Non-scarring alopecia; Translations: [Nonscarring hair loss, unspecified] 12-01-2018 Episodic Other skin disorders (1 source) Acne vulgaris; Translations: [Acne vulgaris] 07-22-2023 Episodic Other skin disorders (1 source) Post-inflammatory hyperpigmentation; Translations: [Postinflammatory hyperpigmentation] 07-22-2023 Episodic Other skin disorders (1 source) Generalized hyperhidrosis; Translations: [Generalized hyperhidrosis] 07-22-2023 Episodic Other skin disorders (17 sources) Loss of hair; Translations: [Nonscarring hair [...] caused by tuberculosis or sexually transmitted disease) (20 sources) Pneumonia; Translations: [Pneumonia, unspecified organism] 03-10-2022 Episodic Residual codes; unclassified (20 sources) Hypersomnia; Translations: [Hypersomnia, unspecified] 02-20-2021 Chronic Residual codes; unclassified (20 sources) Obstructive sleep apnea syndrome; Translations: [Obstructive sleep apnea (adult) (pediatric)] Onset: 2 11-12-2022 Chronic Residual codes; unclassified (20 sources) Positive measurement finding; Translations: [Positive test for human papillomavirus (HPV)] 05-25-2021 Episodic Residual codes; unclassified (20 sources) Abnormal cytology findings; Translations: [ASCUS with positive high risk HPV] 06-07-2022 Episodic Comment on above: needs colp, 07/13 col p biopsy is negative. Repeat PAP in 1 yr. Residual codes; unclassified (1 source) FH: Autoimmune disease; Translations: [Family history of diseases of the blood and blood-forming organs and certain disorders involving the immune mechanism] 01-18-2025 Episodic Residual codes; unclassified (1 source) Acquired absence of both cervix and uterus; Translations: [Acquired absence of both cervix and uterus] Onset: 5 Episodic Screening and history of mental health and substance abuse codes (20 sources) Tobacco use and exposure - finding; Translations: [Personal history of nicotine dependence] Onset: 0 Resolved: 2 05-18-2021 Episodic Spondylosis; intervertebral disc disorders; other back problems (2 sources) Prolapsed lumbar intervertebral disc; Translations: [Other intervertebral disc displacement, lumbar region] Onset: 5 01-18-2025 Chronic Spontaneous (20 sources) with abortive outcome; Translations: [...] No current problems or disability 04-19-2017 Unclassified (12 sources) M54.5 - Low back pain,G89.29 - Other chronic pain Unclassified (6 sources) M54.16 - Radiculopathy, lumbar region Unclassified (2 sources) Displacement of lumbar intervertebral disc 11-16-2024 Unclassified (1 source) Acute cough; Translations: [Acute cough] Onset: 4 Unclassified (1 source) Obesity, class 1; Translations: [Obesity, class 1] Onset: 5 Unclassified (1 source) Insulin resistance, unspecified; Translations: [Insulin resistance, unspecified] Onset: 5 Unclassified (1 source) Latent tuberculosis; 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 Acute and chronic tonsillitis (12 sources) Tonsillitis; Translations: [Acute tonsillitis, unspecified] Onset: 03-31-2009 Resolved: 04-27-2011 12-01-2023 Episodic Administrative/social admission (20 sources) Patient encounter status; Translations: [Encounter for pre-employment examination] Onset: 09-17-2024 10-27-2019 Episodic Coma; stupor; and brain damage (20 sources) Daytime somnolence; Translations: [Somnolence] Onset: 05-28-2021 03-08-2022 Episodic Other complications of (12 sources) Anemia of ; Translations: [Anemia complicating , unspecified trimester] Onset: 01-25-2012 Resolved: 03-07-2013 03-07-2013 Chronic Other complications of (12 sources) Tobacco use in mother complicating ; Translations: [Smoking (tobacco) complicating , unspecified trimester] Onset: 09-17-2011 Resolved: 12-18-2016 05-18-2021 Episodic Other complications of (12 sources) Back pain complicating ; Translations: [Back pain complicating ] Onset: 09-27-2011 Resolved: 03-07-2013 03-07-2013 Episodic Other disorders of stomach and duodenum (1 source) Functional dyspepsia; Translations: [Functional dyspepsia] Onset: 06-04-2024 Episodic Other female genital disorders (1 source) Other specified noninflammatory disorders of vagina; Translations: [Other specified noninflammatory disorders of vagina] Onset: 12-13-2024 Episodic Other gastrointestinal disorders (1 source) Constipation, unspecified; Translations: [Constipation, unspecified constipation type] Onset: 06-06-2024 Episodic Other screening for suspected conditions (not mental disorders or infectious disease) (18 sources) Abnormal results of function studies of other organs and systems; Translations: [Abnormal results of function studies of other organs and systems] Onset: 08-28-2024 04-02-2024 Episodic Other upper respiratory disease (2 sources) Epistaxis; Translations: [Epistaxis] Onset: 08-01-2024 Episodic Spondylosis; intervertebral disc disorders; other back problems (20 sources) Chronic back pain ; Translations: [Dorsalgia, unspecified] Onset: 05-26-2006 Resolved: 09-17-2011 06-28-2019 Episodic Substance-related disorders (12 sources) Tobacco user; Translations: [Nicotine dependence, unspecified, uncomplicated] Onset: 03-31-2009 Resolved: 03-03-2010 03-03-2010 Chronic Unclassified (1 source) Obesity, class 1; Translations: [Obesity, class 1] Onset: 07-13-2024 Unclassified (1 source) Insulin resistance, unspecified; Translations: [Insulin resistance, unspecified] Onset: 06-15-2024 Results Test Name Value Interpretation Reference Range Facility Bedside Glucoseon 03-19-2025 [facility] GLU 79 mg/dL Normal 74-106 [facility] Comment on above: Result Comment: TIANA ARMSTRONG OF PATIENT CARE PER NURSING PROTOCOL Performed By: #### L 100.0100, L501.4021, L500.2500 #### [facility] [address] [place], [address] Discharge Instructionon 02-21 Discharge Instruction [facility] Medical Records Department [address] [place] [address] Instructions for Home/Discharge Instructions 03/19/25 1018 MR#: [id number] Acct: [id number] Name: DARI APARICIO Rep #: [id number] : 1990 34 From: Es Cline DO PCP: Dr. Steph Camacho MD Status:REG SDC Discharge Instructions DC O2, CPAP, BIPAP needs Home O2 Discharge instructions: No Dressing / Incision Discharge Activity: May Shower May resume sexual activity in: 8 weeks Weight Bearing Status: Full weight bearing Lifting Restrictions: 10 pounds for 2 weeks Dressing / Incision Call your doctor if your incision/area has: Continuous Slow Oozing, Sudden Increased Bleeding, Increased Pain/ Swelling, Increased Redness and Foul Smelling Discharge Call your doctor if you observe: Fever of 101 or Higher, Using more than 1 pad per hour, Shortness of breath, Chest pain and Uncontrolled pain Suture Line Care: Avoid Pulling/Pushing and Avoid Pinching/Bending Remove Dressing in: 1 week (if present) Cleanse incision/area with: Soap Water and Keep Dressing Clean Dry Follow Up Care Please Follow Up With: Es Cline DO When: Call to make an appointment with your doctor for a postop visit in 2 and 6 weeks Test Results: Test results from this visit will be discussed in further detail at your follow-up appointment, if applicable. Discharge Plan Admission Primary Reason for Your Visit: hysterectomy Attending Provider: Es Cline Primary Care Provider: Steph Camacho Instructions Print Language: Canadian Discharge Orders/Prescriptions Prescriptions: New ibuprofen 800 mg tablet 800 mg PO Q8H PRN (Reason: pain) Qty: 30 0RF oxycodone-acetaminophen [Percocet] 5-325 mg tablet 1 tab PO Q4H PRN (Reason: pain) 7 Days Qty: 20 0RF Continued desvenlafaxine succinate 50 mg tablet extended release 24 hr 50 mg PO DAILY Qty: 90 0RF polyethylene glycol 3350 [Miralax] 17 gram/dose powder 4 g PO QODAY Trulicity 3 mg/0.5 mL pen injector 3 mg subcut QWEEK Patient Comments: LAST DOSE 03/07/2025, FOR WEIGHT LOSS albuterol sulfate 2.5 mg /3 mL (0.083 %) solution for nebulization 1 mg inhalation Q4H PRN PRN (Reason: wheezing) albuterol sulfate 90 mcg/actuation HFA aerosol inhaler 2 puff INHALATION Q4H PRN PRN (Reason: wheezing) omeprazole 40 mg capsule,delayed release(DR/EC) 20 mg PO BID ondansetron 4 mg tablet,disintegrating 4 mg PO Q6H PRN (Reason: nausea and vomiting) Qty: 30 0RF Discontinued medroxyprogesterone 5 mg tablet 5 mg PO QDAY 60 Days Qty: 60 0RF Referrals / Follow Up: Steph Camacho MD [Primary Care Provider, Internal Medicine] Disposition Disposition (needs filled in before D/C Order can be placed): Home, Self Care 03/19/25 1020 Es Cline DO CC: Dr. Steph Camacho MD Signed Normal [facility] Glucose measurement at [facility] deOrdered By: Es Villarreal on 03-19-2025 Glucose [Mass/Vol] 79 mg/dL 74-106 [facility] Comment on above: MANAGEMENT OF PATIEN T CARE PER NURSING PROTOCOL MR/POSTOP.ANEon 03-19-2025 MR/POSTOP.[facility] Medical Records Department [address] [place] [address] Anesthesia Postop Eval I 03/19/25 1306 MR#: [id number] Acct: [id number] Name: DARI APARICIO Rep #: [id number] : 1990 34 From: Mauro Humphries CRNA PCP: Dr. Steph Camacho MD Status:REG SDC Y Race: C Location: [place] [address] Anesthesia: Postop Eval I Current Vital Signs Temperature: 97.6 F Pulse Rate: 68 Blood Pressure: 117/73 Respiratory Rate: 16 Pulse Ox: 100 Oxygen Delivery Method: Nasal Cannula Oxygen Flow Rate (L/min): 4 Assessment Airway patent: Yes Spontaneous unlabored respirations: Yes Mental status: Calm and Asleep nausea: No Vomiting: No Anesthesia Complication: No Fluid Hydration Crystalloid volume administer (ml): 850 Total IV fluid infused: 850 Progress Note Anesthesia document: Postop Eval 1 completed: Yes 03/19/25 1307 Date Mauro Humphries CRNA Cosigner Signature: Date CC: Signed Normal [facility] MR/[id number] 03-19-2025 MR/POSTOPAN2 [facility] Medical Records Department [address] [place] [address] Anesthesia Postop Eval II 03/19/25 1504 MR#: [id number] Acct: [id number] Name: DARI APARICIO Rep #: [id number] : 1990 34 From: Steven Dunne MD PCP: Dr. Steph Camacho MD Status:REG SDC Y Race: C Location: [address] Anesthesia Postop Eval I Sum Postop Eval Completion status Anesthesia document: Postop Eval 1 completed: Yes Anesthesia Postop Eval I Summary Anesthesia Postop Eval I Summary: Anesthesia Postop Eval I: Assessment Summary Airway patent Yes 03/19/25 13:07 SKETCH LINER.MEDM Spontaneous unlabored Yes 03/19/25 13:07 SKETCH LINER.MEDM respirations Mental status Calm,Asleep 03/19/25 13:07 SKETCH LINER.MEDM nausea No 03/19/25 13:07 SKETCH LINER.MEDM Vomiting No 03/19/25 13:07 SKETCH LINER.MEDM Anesthesia Postop Eval I: Fluid Summary Crystalloid volume administer 850 03/19/25 13:07 SKETCH LINER.MEDM (ml) Colloids volume administered ( ml) Blood Product volume administered (ml) Total IV fluid infused 850 03/19/25 13:07 SKETCH LINER.MEDM Anesthesia Postop Eval I: Summary Notes Anesthesia Complication No 03/19/25 13:07 SKETCH LINER.MEDM Anesthesia Complication Comment: Post-operative progress note Anesthesia: Postop Eval II Evaluation Mental status: Awake and Calm Pain Level: 1 nausea: No Vomiting: No Complications Anesthesia Complication: No 03/19/25 1505 Date Steven Dunne MD Cosigner Signature: Date CC: Signed Normal [facility] Operative Reporton 5 Operative Report [facility] Medical Records Department [address] [place] [address] Operative Report 03/19/25 1247 MR#: [id number] Acct: [id number] Name: DARI APARICIO Rep #: [id number] : 1990 34 From: Es Cline DO PCP: Dr. Steph Camacho MD Status:[facility] Location: [address] Select Codes Urinary/Genital Urinary/Genital CPT Codes: 31109 Cystoscopy and 84876 TLH+BS/O <250gr uterus Operative Report (Standard) Operative Information Date of Procedure: 03/19/25 Pre-Operative Diagnosis: menorrhagia, pelvic pain Post-Operative Diagnosis: menorrhagia, pelvic pain, endometriosis Surgery/Procedure Performed: total robotic hysterectomy, cystoscopy, lysis of adhesions and fulguration of endometriosis cut out marker: Yes Blueprint Duplicator: Jeana Sevilla Tasks completed by assistant kitchen manager: Trocar and Retracting Additional dyer assistant?: No Type of Anesthesia: General RN Documented Start/Stop Times: Operation Date: 03/19/25 10:45 Case Time Into Pre-Op 03/19/25 08:48 Anesthesia Start 03/19/25 11:21 Into Room 03/19/25 11:21 Procedure Start 03/19/25 11:41 Procedure Start Time: 11:41 Procedure Stop Time: 12:48 Select all DRAINS/GRAFTS/IMPLANTS that apply: None Estimated Blood Loss: 20cc Specimen collected: Yes Description of specimen(s) removed: uterus and cervix Description of surgery: Specimens removed: Uterus and cervix Reason for surgery: This is a 34-year-old G3, P2 who presented to my office with history of section x 2, pelvic pain, and heavy periods. the planned procedure is for a robotic hysterectomy the risks benefits and alternatives were discussed with the patient the patient had a clear understanding of the procedure and a consent form was signed. Procedure: The patient was placed in the dorsal low lithotomy position and prepped and draped in the normal sterile fashion both abdominally and in the perineum. Her legs were placed in stirrups a Winchester catheter was inserted into the urethra without difficulty. A weighted speculum was placed in the vagina and a single-tooth tenaculum was used to grasp the anterior lip of the cervix. An [employer] uterine manipulator was inserted through the cervix without complication. It was then tied into place at the 2 and 10:00 locations on the cervix. Gloves were changed and attention was turned towards the abdomen. Approximately 23 cm above the pubic symphysis in the midline, and after Marcaine injection, a 8 mm incision was made. An 8 mm trocar was inserted through the laparoscope, then inserted into the abdomen under direct visualization using the laparoscope. Good abdominal placement was noted and no complications were appreciated. An air seal device was utilized to create pneumoperitoneum. At 12 cm lateral to the midline on the left and right sides 8 mm accessory ports were placed. Next a left upper quadrant 8 mm dyer assistant port site was placed. The patient was placed in steep Trendelenburg position. The robot was docked. The hysterectomy was initiated first by taking down the round ligament on each side using the vessel sealer device. The fallopian tubes were noted to be surgically absent. There was noted to be endometriosis on the peritoneum overlying the back side of the bladder on the right infundibulopelvic ligament on the left uterosacral ligament and on the remaining of the right fallopian tube. The broad ligament was then and taken down using the vessel sealer device. Next the bladder flap was taken down without complication. This was done using monopolar cautery to the level of the cervical vaginal junction. After the bladder flap was created, uterine vessels were then isolated and cauterized using the vessel sealer device and EndoShears. At this point the uterine vessels were taken down further starting from the ascending branch, dissecting along the edges of the cervix to the level of the cervical vaginal junction with hemostasis appreciated. The cervical vaginal junction was then using monopolar cautery in a circumferential pattern across the superior aspect of the cervix. This was performed after carefully dissecting scar tissue from the bladder flap to the uterus using electrocautery and blunt dissection. The specimen was delivered through the vagina and sent to pathology. The remaining vaginal cuff was then closed using a V lock suture. This was performed in a running technique. Excellent hemostasis was obtained and good closure was noted. Irrigation was then performed. All operative sites were noted to be hemostatic. A cystoscopy was performed with a 70 degree cystoscope through the urethra into the bladder without complication. The bladder was instilled with approximately 250 cc of normal saline. Intraoperative images were made. Ureteral orifices and jets were identified. No suture m (more content not included)... Normal [facility] Surgery Specimen Level Von 1 Surgery Specimen Level V Patient Age/Sex Location Account Attending Physician DARI APARICIO 34/F [facility] [id number] Nam Myers Specimen: [id number] Received: 03/19/25 Status: FRANCESCA Benavidez Num: [id number] Spec Type: UTERUS Subm Dr: Dr. Es Cline, HEADER OPERATION: ERAS, laparoscopic total robotic hysterectomy, cystoscopy PRE-OP DIAGNOSIS: Abnormal uterine bleeding TISSUE SUBMITTED: A- Uterus, cervix MICROSCOPIC DIAGNOSIS A. Uterus, laparoscopic total robotic hysterectomy - Cervix: no specific pathologic change. - Endometrium: proliferative phase. - Myometrium: subserosal leiomyoma x2 (0.7 cm). - Serosa: focal adhesions. MICROSCOPIC DESCRIPTION Slides are reviewed. GROSS DESCRIPTION A. Received in formalin labeled with the patient's name and date of . Designated as "uterus, cervix" is an 83 g, 7.4 x 4.8 x 3.5 cm uterus devoid of attached adnexa. The serosa is miller-pink with 2 possible subserosal leiomyomas (0.3 cm and 0.7 cm) and focal, dense adhesions on the posterior aspect. The attached cervix is miller-pink and measures 3.3 x 3.1; the 0.7 cm os is expelling hemorrhagic mucoid material and is probe patent. Mucoid containing cysts are present in the cervix. The specimen is inked as follows: [id number] ackParametrium-orange. Opening reveals a 5.6 x 3.5 cm endometrial canal lined by minimal, miller to red and granular that measures up to 0.4 cm cm thick. Anteriorly at the junction of the lower uterine segment is a 1.4 x 1.2 cm area of somewhat fibrotic endometrium (suspicious for scar). The myometrium is miller-pink, trabeculated and measures up to 2.2 cm thick. Routeman sections are submitted as follows: A1: Anterior cervixA2: Posterior cervixA3: Anterior endomyometriumA4: Posterior endomyometriumA5: Possible anterior endometrial scar, subserosal leiomyoma [place] 03/19/2025 [facility]:[id number] Patient Age/Sex Location Account Attending Physician DARI APARICIO 34/F [facility] [id number] Dr. Es Cline, Nam Signed (signature on file) Dr. Teresa Cota MD 04/01/25 1510 Normal [facility] Comment on above: Performed By: #### P SUV ####[facility] [id number] [place], [place], [id number] Erythrocyte distribution wid th ratioOrdered By: Es Villarreal on 03-13-2025 Erythrocyte distribution width (RBC) [Ratio] 12.6 % 11.6-14.6 [facility] Erythrocyte distribution wid th standard deviationOrdered By: Es Villarreal on 03-13-2025 Erythrocyte distribution width (RBC) [Ratio] 40.6 fl 35.1-43.9 [facility] Hematocrit Auto (Bld) [Volum e fraction]Ordered By: Es Villarreal on 03-13-2025 Hematocrit (Bld) [Volume fraction] 36.3 % Low 37-47 [facility] Hemoglobin measurementOrdere d By: Es Villarreal on 03-13-2025 Hemoglobin (Bld) [Mass/Vol] 12.4 g/dL 12.0-15.0 [facility] MCV (mean corpuscular volume ) determinationOrdered By: Es Villarreal on 03-13-2025 MCV (RBC) [Entitic vol] 87.9 fL 81-99 [facility] Magnesium measurement (mass/ volume)Ordered By: Steven Dunne on 03-13-2025 Magnesium (Unsp spec) [Mass/Vol] 2.0 mg/dL 1.5-2.2 [facility] Mean corpuscular hemoglobin (MCH) determinationOrdered By: Es Villarreal on 03-13-2025 MCH (RBC) [Entitic mass] 30.0 pg 27.0-32.0 [facility] Mean corpuscular hemoglobin concentration (MCHC) determinationOrdered By: Es Villarreal on 03-13-2025 MCHC (RBC) [Mass/Vol] 34.2 g/dL 32-36 [facility] Mean platelet volume determi nationOrdered By: Es Villarreal on 03-13-2025 Platelet mean volume (Bld) [Entitic vol] 8.7 fL 6.2-12.0 [facility] Color Television Console Monitor Office Visit Reporton 03-13-2025 Color Television Console Monitor Office Visit Report [facility] [address], [address] [place] [address] OFFICE VISIT Date of Service: 03/13/25 MR#: [id number] Acct: [id number] Name: DARI APARICIO Rep #: [id number] : 1990 Provider: Dr. Es Alcaraz DO Age/Sex: 34/F Location: [facility] Status: Signed Intake Vital Signs 02/11/25 13:31 03/13/25 10:56 03/13/25 10:58 Height 5 ft 1 in 5 ft 1 in 5 ft 1 in Weight: 172 lb 6 oz BMI 32.5 BP 116/74 Intake Visit Reasons: TRH cysto 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: No Is patient in pain?: No Allergies megestrol (From Megace) Adverse Reaction (Intermediate, Verified 03/13/25 10:56) chest pain amoxicillin (From Augmentin) Adverse Reaction (Mild, Verified 03/13/25 10:56) Vomiting clavulanic acid (From Augmentin) Adverse Reaction (Mild, Verified 03/13/25 10:56) Vomiting naproxen Adverse Reaction (Verified 03/13/25 10:56) Other varenicline tartrate (From Chantix) Adverse Reaction (Verified 03/13/25 10:56) Other Medications ???Medication ???Instructions ???Recorded ???Confirmed ???Type desvenlafaxine succinate 50 mg 50 mg PO DAILY #90 tabs 08/22/24 1 Rx tablet,extended release 24 hr polyethylene glycol 3350 17 4 g PO QODAY 01/11/25 03/13/25 His tory gram/dose oral powder (Miralax) ondansetron 4 mg disintegrating 4 mg PO Q6H PRN nausea and 5 03/13/25 Rx tablet vomiting #30 tabs medroxyprogesterone 5 mg tablet 5 mg PO QDAY 60 days #60 tabs 01/2203/13/25 Rx albuterol sulfate 2.5 mg/3 mL 1 mg inhalation Q4H PRN PRN 03/13/25 History (0.083 %) solution for nebulization wheezing albuterol sulfate 90 mcg/actuation 2 puff inhalation Q4H PRN PRN 03/13/25 History aerosol inhaler wheezing dulaglutide 3 mg/0.5 mL 3 mg subcut QWEEK 03/07/25 5 History subcutaneous pen injector (Trulicity) omeprazole 40 mg capsule,delayed 20 mg PO BID 03/07/25 03/13/25 His tory release Post menopausal: No Patient : No : No PFSH Medical History Delayed gastric emptying Anxiety Arthritis High cholesterol Former smoker 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 She has been bleeding on and off heavily for several weeks. She continues to use a low dose progesterone to keep menses light until surgery. Ultrasound shows the following: FINDINGS: LMP: December 18, 2024 Measurements: Uterus: 7.9 cm x 5.6 cm x 3.8 cm with a volum (more content not included)... Normal [facility] Platelet countOrdered By: Andrea Villarreal on 03-13-2025 Platelets (Bld) [#/Vol] 384 10*3/uL 150-450 [facility] RBC Auto (Bld) [#/Vol]Ordere d By: Es Villarreal on 03-13-2025 RBC (Bld) [#/Vol] 4.13 10*6/uL Low 4.2-5.4 [facility] White blood cell (WBC) count Ordered By: Es Villarreal on 03-13-2025 WBC (Bld) [#/Vol] 5.1 10*3/uL 4.4-11.0 [facility] MR/PAT.KEEon 03-07-2025 MR/PAT.[facility] Medical Records Department [address] [place] [address] PAT - Anesthesia 03/07/25 1119 MR#: [id number] Acct: [id number] Name: DARI APARICIO Rep #: [id number] : 1990 34 From: Steven Dunne MD PCP: Dr. Steph Camacho MD Status:PRE [facility] Y Race: C Location: [facility] Pre-Assessment Diagnosis/Proposed Procedure Planned Operative Procedure(s): Lap Total Robotic Hysterectomy, Cystoscopy Anesthesia History Anesthesia History - physician anesthesiologist: Anesthesia History - physician anesthesiologist Hx Hospitalization No 03/07/25 11:11 Any Problems With Anesthesia Yes: HARD TIME WAKING UP, 03/07/25 11:11 NAUSEA Cholinesterase deficiency No 03/07/25 11:11 You/Your Family Experience No 03/07/25 11:11 fever (hyperthermia) with Relationship Recent Exposure to Contagious No 10/08/24 09:07 Disease Does patient have nerve No 03/07/25 11:11 stimulator Patient instructed to have device shut off --Does patient have Pacemaker or ICD? When Was Last Pacemaker Check QUESTION #4 FULL TEXT: You/Your Family Experience fever (hyperthermia) with Anesthesia Last Oral Intake Last Oral intake: Last Oral Intake NPO since Meds taken in AM with sips of water? Meds patient instructed to take am of surgery PONV PONV - physician anesthesiologist: PONV - physician anesthesiologist Female Yes 03/07/25 11:11 HX of Motion Sickness No 03/07/25 11:11 HX of N/V After Surgery No 03/07/25 11:11 Non-Smoker Yes 03/07/25 11:11 Duration of Surgery greater No 03/07/25 11:11 than 60 minutes Number of Risk Factors 2 03/07/25 11:11 PONV Score Moderate Risk 03/07/25 11:11 Height Weight Height Weight: Anesthesia: Height Weight Height 5 ft 1 in 02/11/25 13:31 Respiratory Assessment Respiratory Assessment - physician anesthesiologist: Respiratory Tract Infection Hx - physician anesthesiologist Hx Respiratory Tract Infection No 03/07/25 11:11 STOP Sleep Apnea STOP Sleep Apnea - physician anesthesiologist: STOP Sleep Apnea - physician anesthesiologist Hx Hypertension Yes: WITH ONLY/NO 03/07/25 11:11 MEDS Hx Sleep Apnea No: NO MACHINE REQUIRED AT 03/07/25 11:11 THIS TIME, WEIGHT LOSS CPAP No 03/07/25 11:11 BIPAP No 03/07/25 11:11 Do you snore loudly (louder No 03/07/25 11:11 than talking or can be heard Do you often feel tired/ No 03/07/25 11:11 fatigued/ sleepy during daytime? Has anyone observed you stop No 03/07/25 11:11 breathing during sleep? STOP Results Negative 03/07/25 11:11 QUESTION #5 FULL TEXT : Do you snore loudly (louder than talking or can be heard through closed doors)? Tobacco Use History Tobacco Use History - physician anesthesiologist: Tobacco Use History - physician anesthesiologist Tobacco Use Smoking Status Former smoker 03/07/25 11:11 Hx Tobacco Use No 03/07/25 11:11 Years Smoking Packs Smoked per Day Smoking Cessation Date was No - quit smoking greater 03/07/25 11:11 within the last 15 years than 15 years ago Hx Smoking Cessation Date 05/23/11 03/07/25 11:11 Hx Smoking Cessation No 03/07/25 11:11 Counseling Hematologic Medial History Hematologic Hx - physician anesthesiologist: Hematologic Medical Hx - product support analyst Hx of Blood Transfusion No 03/07/25 11:11 Hx of Transfusion in last 3 No 03/07/25 11:11 Months Date of Last Transfusion (if within last 3 months) Ever experience any problems No 03/07/25 11:11 with transfusion(s)? Specify any problems Hx of Preganancy in last 3 No 03/07/25 11:11 Months Nurse Filling Out Transfusion VCHRISTIN 03/07/25 11:11 Questions: Date: 03/07/25 03/07/25 11:11 Time: 11:13 03/07/25 11:11 Patient unable to answer at this time (ie. 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 Normal [facility] Urgent Care Visit Reporton 1 Urgent Care Visit Report [facility] [address], [address] [place] [address] OFFICE VISIT Date of Service: 02/21/25 MR#: [id number] Acct: [id number] Name: DARI APARICIO Rep #: [id number] : 1990 Provider: CAROLYN Branham Age/Sex: 34/F Location: [facility] Status: Signed Intake Vital Signs 02/11/25 13:31 02/21/25 09:20 Height 5 ft 1 in BP 104/64 Blood Pressure Location Rt brachial Position Sitting Respiration 16 Pulse 76 Pulse Source NIBP Temp 97.5 F L Temp Source Oral Pulse Oximetry (%) 98 Oxygen Delivery Method room air Intake Visit Reasons: CONCERN FOR SINUS INFECTION Chief Complaint: face pain, ears popping, drainage, ST 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: No Is patient in pain?: Yes Allergies megestrol (From Megace) Adverse Reaction (Intermediate, Verified 02/21/25 09:21) chest pain amoxicillin (From Augmentin) Adverse Reaction (Mild, Verified 02/21/25 09:21) Vomiting clavulanic acid (From Augmentin) Adverse Reaction (Mild, Verified 02/21/25 09:21) Vomiting naproxen Adverse Reaction (Verified 02/21/25 09:21) Other varenicline tartrate (From Chantix) Adverse Reaction (Verified 02/21/25 09:21) Other Medications ???Medication ???Instructions ???Recorded ???Confirmed ???Type desvenlafaxine succinate 50 mg 50 mg PO DAILY #90 tabs 08/22/24 1 Rx tablet,extended release 24 hr omeprazole 40 mg capsule,delayed 40 mg PO BID #60 caps 09/17/2407/17 Rx release dulaglutide 0.75 mg/0.5 mL 4.5 mg subcut QWEEK 01/11/2502/21 History subcutaneous pen injector (Trulicity) polyethylene glycol 3350 17 4 g PO ONCE 01/11/25 02/21/25 Hist ory gram/dose oral powder (Miralax) ondansetron 4 mg disintegrating 4 mg PO Q6H PRN nausea and 5 02/21/25 Rx tablet vomiting #30 tabs medroxyprogesterone 5 mg tablet 5 mg PO QDAY 60 days #60 tabs 01/2202/21/25 Rx cyclobenzaprine 5 mg tablet 5 mg PO TID PRN muscle spasm #30 0 02/18/25 02/21/25 Rx tabs cholecalciferol (vitamin D3) 50 50 mcg PO QDAY 02/21/25 02/21/25 H istory mcg (2,000 unit) capsule ipratropium bromide 21 mcg (0.03 2 spray intranasal BID-TID PRN 07/1702/21/25 Rx %) nasal spray postnasal drainage #30 mL sulfamethoxazole 800 1 tab PO Q12H 7 days #14 tabs 07/1702/21/25 Rx mg-trimethoprim 160 mg tablet (Bactrim DS) zinc gluconate 100 mg tablet 100 mg PO QDAY 02/21/25 02/21/25 H istory Is last menstrual period known: No Post menopausal: No Patient : No Have you fallen in the past year?: No Nurse's Note: face pain, ears popping, drainage, ST x 6 days. significant hx of sinus infections per pt, feels same. denies fever/cough PFSH Medical History (Updated 02/21/25 @ 09:33 by Hunter LEON, PA) Leg cramping Delayed gastric emptying History of [...] intake: current alcohol intake frequency: holidays/special occasions (more content not included)... Normal [facility] Surgical pathology reportOrd ered By: Teresa Cota on 02-18-2025 Surgical pathology study [facility] CBC-Complete Blood Cnt No Di ffon 02-11-2025 Erythrocyte distribution width (RBC) [Ratio] 14.1 % Normal 11.6-14.6 [facility] Comment on above: Performed By: #### L 100.0500 ####[facility] [address] [place], [address] Hematocrit (Bld) [Volume fraction] 34.9 % Low 37-47 [facility] Comment on above: Performed By: #### L 100.0500 ####[facility] [address] [place], [address] Hemoglobin (Bld) [Mass/Vol] 11.9 g/dL Low 12.0-15.0 [facility] Comment on above: Performed By: #### L 100.0500 ####[facility] [address] [place], [address] MCH (RBC) [Entitic mass] 30.1 pg Normal 27.0-32.0 [facility] Comment on above: Performed By: #### L 100.0500 ####[facility] [address] [place], [address] MCHC (RBC) [Mass/Vol] 34.1 g/dL Normal 32-36 [facility] Comment on above: Performed By: #### L 100.0500 ####[facility] [address] [place], [address] MCV (RBC) [Entitic vol] 88.1 fL Normal 81-99 [facility] Comment on above: Performed By: #### L 100.0500 ####[facility] [address] [place], [address] Platelet mean volume (Bld) [Entitic vol] 9.0 fL Normal 6.2-12.0 [facility] Comment on above: Performed By: #### L 100.0500 ####[facility] [address] [place], [address] Platelets (Bld) [#/Vol] 333 10*3/uL Normal 150-450 [facility] Comment on above: Performed By: #### L 100.0500 ####[facility] [address] [place], [address] RBC (Bld) [#/Vol] 3.96 10*6/uL Low 4.2-5.4 [facility] Comment on above: Performed By: #### L 100.0500 ####[facility] [address] [place], [address] RDW SD 45.2 fl High 35.1-43.9 [facility] Comment on above: Performed By: #### L 100.0500 ####[facility] [address] [place], [address] WBC (Bld) [#/Vol] 5.1 10*3/uL Normal 4.4-11.0 [facility] Comment on above: Performed By: #### L 100.0500 ####[facility] [address] [place], [address] Erythrocyte distribution wid th ratioOrdered By: Es Villarreal on 02-11-2025 Erythrocyte distribution width (RBC) [Ratio] 14.1 % 11.6-14.6 [facility] Erythrocyte distribution wid th standard deviationOrdered By: Es Villarreal on 02-11-2025 Erythrocyte distribution width (RBC) [Ratio] 45.2 fl High 35.1-43.9 [facility] Hematocrit Auto (Bld) [Volum e fraction]Ordered By: Es Villarreal on 02-11-2025 Hematocrit (Bld) [Volume fraction] 34.9 % Low 37-47 [facility] Hemoglobin measurementOrdere d By: Es Villarreal on 02-11-2025 Hemoglobin (Bld) [Mass/Vol] 11.9 g/dL Low 12.0-15.0 [facility] MCV (mean corpuscular volume ) determinationOrdered By: Es Villarreal on 02-11-2025 MCV (RBC) [Entitic vol] 88.1 fL 81-99 [facility] Mean corpuscular hemoglobin (MCH) determinationOrdered By: Es Villarreal on 02-11-2025 MCH (RBC) [Entitic mass] 30.1 pg 27.0-32.0 [facility] Mean corpuscular hemoglobin concentration (MCHC) determinationOrdered By: Es Villarreal on 02-11-2025 MCHC (RBC) [Mass/Vol] 34.1 g/dL 32-36 [facility] Mean platelet volume determi nationOrdered By: Es Villarreal on 02-11-2025 Platelet mean volume (Bld) [Entitic vol] 9.0 fL 6.2-12.0 [facility] Color Television Console Monitor Office Visit Reporton 02-11-2025 Color Television Console Monitor Office Visit Report [facility] [address], [address] [place] [address] OFFICE VISIT Date of Service: 02/11/25 MR#: [id number] Acct: [id number] Name: DARI APARICIO Rep #: [id number] : 1990 Provider: Dr. Es Alcaraz DO Age/Sex: 34/F Location: [facility] [place] Status: Signed Intake Vital Signs 01/11/25 14:32 02/08/25 09:40 02/11/25 13:31 02/11/25 13:31 Height 5 ft 1 in 5 ft 1 in 5 ft 1 in 5 ft 1 in Weight: 167 lb 5 oz BMI 31.6 BP 116/81 H Intake Visit Reasons: 3wk FU US Results Chief Complaint: 3wk FU US Results 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: No Is patient in pain?: No Allergies megestrol (From Megace) Adverse Reaction (Intermediate, Verified 02/11/25 13:24) chest pain amoxicillin (From Augmentin) Adverse Reaction (Mild, Verified 02/11/25 13:24) Vomiting clavulanic acid (From Augmentin) Adverse Reaction (Mild, Verified 02/11/25 13:24) Vomiting naproxen Adverse Reaction (Verified 02/11/25 13:24) Other varenicline tartrate (From Chantix) Adverse Reaction (Verified 02/11/25 13:24) Other Medications ???Medication ???Instructions ???Recorded ???Confirmed ???Type ondansetron 4 mg disintegrating 4 mg PO Q6H PRN nausea and 5 02/11/25 Rx tablet vomiting #10 tabs desvenlafaxine succinate 50 mg 50 mg PO DAILY #90 tabs 08/22/24 0 02/11/25 Rx tablet,extended release 24 hr omeprazole 40 mg capsule,delayed 40 mg PO BID #60 caps 09/17/24 Rx release dulaglutide 0.75 mg/0.5 mL 4.5 mg subcut QWEEK 01/11/2502/11 History subcutaneous pen injector (Trulicity) polyethylene glycol 3350 17 4 g PO ONCE 01/11/25 02/11/25 Hist ory gram/dose oral powder (Miralax) tranexamic acid 650 mg tablet 1,300 mg (2 x 650 mg) PO TID 5 02/11/25 Rx days #30 tabs Post menopausal: No Patient : No : [...] home: Yes additional social history: Single HPI 3wk FU US Results Details: DARI APARICIO is a 34 year old ( sections) who presents for results of ultrasound and for emb prior to planned hysterectomy. She has been bleeding on and off heavily for several weeks. She tried progesterone and this made her heart rate increase. She was prescribed TXA last week but has not taken it. We are blocked for March 19 for surgery. ultrasound showed the following; FINDINGS: LMP: December 18, 2024 Measurements: Uterus: 7.9 cm x 5.6 cm x 3.8 cm with a volume of 89.7 mL Endometrial Thickness: 10.2 mm. It is trilaminar. Right Ovary: 4.5 cm x 3.8 cm x 3.2 cm with a volume o (more content not included)... Normal [facility] Platelet countOrdered By: Andrea Villarreal on 02-11-2025 Platelets (Bld) [#/Vol] 333 10*3/uL 150-450 [facility] RBC Auto (Bld) [#/Vol]Ordere d By: Es Villarreal on 02-11-2025 RBC (Bld) [#/Vol] 3.96 10*6/uL Low 4.2-5.4 [facility] Spec[facility] Level Mery 02-11-2025 Surgery Specimen Level IV Patient Age/Sex Location Account Attending Physician DARI APARICIO 34/F LAB [id number] Nam Myers Specimen: [id number] Received: 02/11/25 Status: FRANCESCA Benavidez Num: [id number] Spec Type: ENDOM BX/C Thomas Dr: Dr. Es Cline DO HEADER OPERATION: Endometrial biopsy PRE-OP DIAGNOSIS: Endometrial bleeding, abnormal uterine bleeding TISSUE SUBMITTED: A- Endometrial tissue MICROSCOPIC DIAGNOSIS A. Endometrium, biopsy: * Proliferative endometrium with progestin effect. MICROSCOPIC DESCRIPTION Slides are reviewed. GROSS DESCRIPTION A. Received in formalin labeled the patient's name and date of is a 2.3 x 0.5 x 0.1 cm aggregate of miller tissue fragments. Entirely submitted in 1 cassette. [place] 02/12/2025 CPT:19038 Patient Age/Sex Location Account Attending Physician DARI APARICIO 34/F LAB [id number] Nam Myers Signed (signature on file) Dr. Teresa Cota MD 02/18/25 1004 Normal [facility] Comment on above: Performed By: #### L 100.0100, L501.4021, L500.2500 #### [facility] [address] [place], [address] White blood cell (WBC) count Ordered By: Es Villarreal on 02-11-2025 WBC (Bld) [#/Vol] 5.1 10*3/uL 4.4-11.0 [facility] Office Visiton 02-01-2025 Follow-up visit [id number] Helen Aparicio 1990 F Date Provider Department Center 02/01/2025 [id number] None Family History Problem Relation [...] Grandfather Paternal Grandmother Maternal Grandfather Level of Service:63541 [place] OFFICE/OUTPATIENT ESTABLISHED LOW MDM 20 MIN Reason for Visit and Comments: Weight Management [645] - Nsurg #5 Normal [facility] Progress Noteon 02-01-2025 Progress Note HPI, PHYSICAL EXAMIN ATION & PLAN HPI: Patient here today for follow up for non-surgical weight loss management Weight trend since last visit: stable stable This patient's excess weight is causing the following co-morbid conditions at this time:Other IR Physical Examination: Blood pressure 112/79, pulse 76, height 5' 2" (1.575 m), weight 168 lb (76.2 kg). General: This patient is calm and [...] 12 month weight goal: 0 Plan: Obesity class 1 stable Continue current management, continue weight loss program Focus on the meal structure, composition and portion control Review meal structure, meal composition and portion control in details in order will focus on the meal plan Unable to exercise due to LBP Unable to tolerate metformin, adipex, naltrexone On trulicity Back to 3 mg Will deal with uterine bleeding first Other IR Continue current management, continue weight [...] was performed.Clinical documentation is updated and completed. [facility] Progress Note [facility] MEDICAL WEIGHT LOSS MANAGEMENT PROGRAM ROOMING NOTE: FOLLOW UP VISIT Patient: Dari Aparicio Date of : 1990 Service Date: 02/01/2025 Patient History/Assessment Summary: The patient is a pleasant 34 y.o. year old female, who stands Height: 5' 2" (157.5 cm) tall with a weight of Weight: 168 lb (76.2 kg) pounds, resulting in a BMI of Body mass index is 30.73 kg/m?. kg/m2. She is here for follow-up for medical treatment of Over weight Patient has the following question(s): none Pre Program Weight Metrics (Epic) (Surgical Wt Loss Management- baseline) This Visit Non-Surgical Subsequent Eval Date: 02/01/25 Height: 5' 2" (157.5 cm) Weight: 168 lb (76.2 kg) BMI: 30.72 Weight Change: -1.6 lbs Total Weight Change: -28.8 lbs % EBWL: 41% Subsequent Body Fat %: 36.86 Body Fat % Change: -0.36 Follow Up Weight Metrics Last Three Weights Including Today's Weight: Wt Readings from Last 3 Encounters: 02/01/25 168 lb (76.2 kg) 12/19/24 169 lb 9.6 oz (76.9 kg) 11/07/24 171 lb 3.2 oz (77.7 kg) Diabetes Do you currently have diabetes? [...] home O2 Completed by: Kiera Hinds MA [facility] [id number] [phone] Pt requesting zofran refill pended. Thank you! [facility] Pelvic w/ Transvaginalon Pelvic w/ Transvaginal [facility] Imaging Services [address] [place] [address] Pelvic w/ Transvaginal MR#: [id number] Acct: [id number] Name: DARI APARICIO Rep #: [id number] : 1990 F 34 From: Chuck evans MD PCP: Dr. Steph Camacho MD Status: REG CLI Study: Pelvic w/ Transvaginal Date of Exam: 01/23/25 Exam# [id number] Ordering Dr: Es Cline DO PROCEDURE: PELVIC W/ TRANSVAGINAL REASON FOR EXAM: MENORRHAGIA HPV. TECHNIQUE: Procedure Code: USPELTVAG Modality: US Procedure: PELVIC W/ TRANSVAGINAL COMPARISON: None FINDINGS: LMP: December 18, 2024 Measurements: Uterus: 7.9 cm x 5.6 cm x 3.8 cm with a volume of 89.7 mL Endometrial Thickness: 10.2 mm. It is trilaminar. Right Ovary: 4.5 cm x 3.8 cm x 3.2 cm with a volume of 27.87 mL. Left Ovary: 3 cm x 2 cm x 1.7 cm with a volume of 5.26 mL. TRANSABDOMINAL: Uterus: Heterogeneous appearance of the myometrium suggestive of fibroid change. In the lower uterine segment, there is a 4 mm x 5 mm x 3 mm isoechoic density with fluid. This may represent the degenerating fibroid. Endometrium: Unremarkable. Right ovary: 3.6 cm 3.5 cm 2.6 cm cyst. Left ovary: Normal size and echotexture. Other: No large pelvic mass identified. Transvaginal sonography was performed to better visualize the endometrium. TRANSVAGINAL: Uterus: Anteverted. Heterogeneous appearance suggestive of fibroid change. Questionable tiny fibroid in the lower uterine segment. Nabothian cyst. Endometrium: Normal echotexture. Right ovary: 3.6 cm 3.5 cm 2.6 cm cyst. Left ovary: Normal size and echotexture. Other adnexal findings: None. Cul-de-sac: No free intraperitoneal fluid identified. Tenderness: No tenderness US/Pelvic w/ Transvaginal IMPRESSION: Left ovarian cyst. Fibroid uterus. Reading Location: [place] [address] CC: Dr. Steph Camacho MD; Dr. Es Cline DO Pumper Helper: Signed Normal [facility] ROBERT BY IFA WITH REFLEXon Nuclear Ab Ql (S) Negative Normal Negative [facility] Comment on above: Order Comment: Speci men Type: BLOOD SPECIMEN Ordering Facility: [facility] Address: [address] [place] [address] Result Comment: Anti -nuclear antibody test is used as an aid in diagnosis of systemic autoimmune diseases. Where positive and clinically warranted, follow-up using disease-specific testing is recommended. Low positive titers are not uncommon with advanced age, certain chronic infections, and malignancies among others. Test methodology: Indirect fluorescence immunoassay (IFA) using HEp-2 cells. Performed By: #### A NAIFR #### [facility] CLIA [id number] [address] [place] [address] [place] C-REACTIVE PROTEINon 025 CRP [Mass/Vol] mg/dL NINF - 0.9 mg/dL [facility] CBC W Auto Differential pane l (Bld)on 01-18-2025 Basophils (Bld) [#/Vol] NINF [facility] Basophils/100 WBC (Bld) 0.1 % [facility] Differential cell count method Nom (Bld) Auto [facility] Eosinophils (Bld) [#/Vol] [facility] Eosinophils/100 WBC (Bld) 0.0 % [facility] Erythrocyte distribution width (RBC) [Ratio] 13.2 % 11.5 - 15.0 % [facility] Hematocrit (Bld) [Volume fraction] 34.3 % Low 36.0 - 46.0 % [facility] Hemoglobin (Bld) [Mass/Vol] 11.6 g/dL 11.5 - 15.5 g/dL [facility] Immature granulocytes (Bld) [#/Vol] 0.04 10*3/uL [facility] Immature granulocytes/100 WBC (Bld) 0.4 % [facility] Interpretation and review of laboratory results Abnormal [facility] Lymphocytes (Bld) [#/Vol] 1.41 10*3/uL [facility] Lymphocytes/100 WBC (Bld) 15.4 % [facility] MCH (RBC) [Entitic mass] 29.0 pg 26.0 - 34.0 pg [facility] MCHC (RBC) [Mass/Vol] 33.8 g/dL 30.5 - 36.0 g/dL [facility] MCV (RBC) [Entitic vol] 85.8 fL 80.0 - 100.0 fL [facility] Monocytes (Bld) [#/Vol] 0.47 10*3/uL [facility] Monocytes/100 WBC (Bld) 5.1 % [facility] Neutrophils (Bld) [#/Vol] 7.22 10*3/uL [facility] Neutrophils/100 WBC (Bld) 79.0 % [facility] Nucleated RBC (Bld) [#/Vol] [facility] Nucleated RBC/100 WBC (Bld) [Ratio] 0.0 % /100 WBC [facility] Platelet mean volume (Bld) [Entitic vol] 9.0 fL 9.0 - 12.7 fL [facility] Platelets (Bld) [#/Vol] 358 10*3/uL [facility] RBC (Bld) [#/Vol] 4.00 10*6/uL 3.90 - 5.20 m/uL [facility] WBC (Bld) [#/Vol] 9.15 10*3/uL [facility] Basophils (Bld) [#/Vol] 10*3/uL Normal <0.11 [facility] Comment on above: Order Comment: Speci men Type: BLOOD SPECIMEN Ordering Facility: [facility] Address: [address] [place] [address] Performed By: #### 5 7021-8 #### [facility] CLIA [id number] [address] [place] [address] [place] Basophils/100 WBC (Bld) 0.1 % Normal [facility] Comment on above: Order Comment: Speci men Type: BLOOD SPECIMEN Ordering Facility: [facility] Address: [address] [place] [address] Performed By: #### 5 7021-8 #### [facility] CLIA [id number] [address] Differential cell count method Nom (Bld) Auto Normal [facility] Comment on above: Order Comment: Speci men Type: BLOOD SPECIMEN Ordering Facility: [facility] Address: [address] [place] [address] Performed By: #### 5 7021-8 #### [facility] CLIA [id number] [address] [place] [address] [place] Eosinophils (Bld) [#/Vol] 10*3/uL Normal <0.46 [facility] Comment on above: Order Comment: Speci men Type: BLOOD SPECIMEN Ordering Facility: [facility] Address: [address] [place] [address] Performed By: #### 5 7021-8 #### [facility] CLIA [id number] [address] [place] Eosinophils/100 WBC (Bld) 0.0 % Normal [facility] Comment on above: Order Comment: Speci men Type: BLOOD SPECIMEN Ordering Facility: [facility] Address: [address] [place] [address] Performed By: #### 5 7021-8 #### [facility] CLIA [id number] [address] [place] [address] [place] Erythrocyte distribution width (RBC) [Ratio] 13.2 % Normal 11.5-15.0 [facility] Comment on above: Order Comment: Speci men Type: BLOOD SPECIMEN Ordering Facility: [facility] Address: [address] [place] [address] Performed By: #### 5 7021-8 #### [facility] CLIA [id number] [address] [place] Hematocrit (Bld) [Volume fraction] 34.3 % Low 36.0-46.0 [facility] Comment on above: Order Comment: Speci men Type: BLOOD SPECIMEN Ordering Facility: [facility] Address: [address] [place] [address] Performed By: #### 5 7021-8 #### [facility] CLIA [id number] [address] [place] Hemoglobin (Bld) [Mass/Vol] 11.6 g/dL Normal 11.5-15.5 [facility] Comment on above: Order Comment: Speci men Type: BLOOD SPECIMEN Ordering Facility: [facility] Address: [address] [place] [address] Performed By: #### 5 7021-8 #### [facility] CLIA [id number] [address] [place] Immature granulocytes (Bld) [#/Vol] 0.04 10*3/uL Normal <0.10 [facility] Comment on above: Order Comment: Speci men Type: BLOOD SPECIMEN Ordering Facility: [facility] Address: [address] [place] [address] Performed By: #### 5 7021-8 #### [facility] CLIA [id number] [address] Immature granulocytes/100 WBC (Bld) 0.4 % Normal [facility] Comment on above: Order Comment: Speci men Type: BLOOD SPECIMEN Ordering Facility: [facility] Address: [address] [place] [address] Performed By: #### 5 7021-8 #### [facility] CLIA [id number] [address] [place] Lymphocytes (Bld) [#/Vol] 1.41 10*3/uL Normal 1.00-4.00 [facility] Comment on above: Order Comment: Speci men Type: BLOOD SPECIMEN Ordering Facility: [facility] Address: [address] [place] [address] Performed By: #### 5 7021-8 #### [facility] CLIA [id number] [address] Lymphocytes/100 WBC (Bld) 15.4 % Normal [facility] Comment on above: Order Comment: Speci men Type: BLOOD SPECIMEN Ordering Facility: [facility] Address: [address] [place] [address] Performed By: #### 5 7021-8 #### [facility] CLIA [id number] [address] MCH (RBC) [Entitic mass] 29.0 pg Normal 26.0-34.0 [facility] Comment on above: Order Comment: Speci men Type: BLOOD SPECIMEN Ordering Facility: [facility] Address: [address] [place] [address] Performed By: #### 5 7021-8 #### [facility] CLIA [id number] [address] MCHC (RBC) [Mass/Vol] 33.8 g/dL Normal 30.5-36.0 [facility] Comment on above: Order Comment: Speci men Type: BLOOD SPECIMEN Ordering Facility: [facility] Address: [address] [place] [address] Performed By: #### 5 7021-8 #### [facility] CLIA [id number] [address] MCV (RBC) [Entitic vol] 85.8 fL Normal 80.0-100.0 [facility] Comment on above: Order Comment: Speci men Type: BLOOD SPECIMEN Ordering Facility: [facility] Address: [address] [place] [address] Performed By: #### 5 7021-8 #### [facility] CLIA [id number] [address] [place] Monocytes (Bld) [#/Vol] 0.47 10*3/uL Normal <0.87 [facility] Comment on above: Order Comment: Speci men Type: BLOOD SPECIMEN Ordering Facility: [facility] Address: [address] [place] [address] Performed By: #### 5 7021-8 #### [facility] CLIA [id number] [address] [place] Monocytes/100 WBC (Bld) 5.1 % Normal [facility] Comment on above: Order Comment: Speci men Type: BLOOD SPECIMEN Ordering Facility: [facility] Address: [address] [place] [address] Performed By: #### 5 7021-8 #### [facility] CLIA [id number] [address] Neutrophils (Bld) [#/Vol] 7.22 10*3/uL Normal 1.45-7.50 [facility] Comment on above: Order Comment: Speci men Type: BLOOD SPECIMEN Ordering Facility: [facility] Address: [address] [place] [address] Performed By: #### 5 7021-8 #### [facility] CLIA [id number] [address] Neutrophils/100 WBC (Bld) 79.0 % Normal [facility] Comment on above: Order Comment: Speci men Type: BLOOD SPECIMEN Ordering Facility: [facility] Address: [address] [place] [address] Performed By: #### 5 7021-8 #### [facility] CLIA [id number] [address] [place] Nucleated RBC (Bld) [#/Vol] 10*3/uL Normal <0.01 [facility] Comment on above: Order Comment: Speci men Type: BLOOD SPECIMEN Ordering Facility: [facility] Address: [address] [place] [address] Performed By: #### 5 7021-8 #### [facility] CLIA [id number] [address] [place] Nucleated RBC/100 WBC (Bld) [Ratio] 0.0 /100 WBC Normal [facility] Comment on above: Order Comment: Speci men Type: BLOOD SPECIMEN Ordering Facility: [facility] Address: [facility] [place] [address] Performed By: #### 5 7021-8 #### [facility] CLIA [id number] [address] [place] Platelet mean volume (Bld) [Entitic vol] 9.0 fL Normal 9.0-12.7 [facility] Comment on above: Order Comment: Speci men Type: BLOOD SPECIMEN Ordering Facility: [facility] Address: [address] [place] [address] Performed By: #### 5 7021-8 #### [facility] CLIA [id number] [address] [place] Platelets (Bld) [#/Vol] 358 10*3/uL Normal 150-400 [facility] Comment on above: Order Comment: Speci men Type: BLOOD SPECIMEN Ordering Facility: [facility] Address: [address] [place] [address] Performed By: #### 5 7021-8 #### [facility] CLIA [id number] [address] [place] RBC (Bld) [#/Vol] 4.00 10*6/uL Normal 3.90-5.20 [facility] Comment on above: Order Comment: Speci men Type: BLOOD SPECIMEN Ordering Facility: [facility] Address: [address] [place] [address] Performed By: #### 5 7021-8 #### [facility] CLIA [id number] [address] [place] WBC (Bld) [#/Vol] 9.15 10*3/uL Normal 3.70-11.00 [facility] Comment on above: Order Comment: Speci men Type: BLOOD SPECIMEN Ordering Facility: [facility] Address: [address] [place] [address] Performed By: #### 5 7021-8 #### [facility] CLIA [id number] [address] [place] CNOVon 01-18-2025 CNOV Office Visit ([facility] ) -- DARI APARICIO ([id number]) 1990 F Date Time Provider Department 01/18/25 8:00 AM [facility] During your visit today, we recorded the following information about you: Temperature Pulse Blood pressure Weight 98.6 degrees 98/minute 107/75 76.2 kg Height Last Period 1.549 m 12/18/24 Sola Cleveland PA-C 01/18/2025 1:19 PM Signed [facility] [place] Department of Rheumatic and Immunologic Diseases New Patient Date of Service: 01/18/2025 Patient: Dari Aparicio Medical Record: [id number] Primary Care Physician: No primary care provider on file. Referring Physician: Self Last Rheumatology visit: None at [facility] Recording using Magiq software for draft documentation of the visit was discussed with the patient/authorized sales representative business courses; all questions welcomed and answered. Patient/authorized sales representative business courses agreed to proceed SUBJECTIVE CC: Polyarticular joint pain History of Present Illness Patient is a 34 year-old female presenting for evaluation of polyarticular joint pain. Patient is the primary historian. Patient has a significant past medical history of obesity, irritable bowel syndrome (IBS), insulin resistance, exercise-induced asthma, generalized anxiety disorder, major depressive disorder, attention deficit hyperactivity disorder (ADHD), and nicotine dependency disorder in remission Relevant Serology Results: 09/16/2016: ROBERT by IFA screen negative Most recent renal function panel: 03/09/2024 GFR: 118 mL/min/m Cr: 0.62 mg/dL CrCl [per Cockcroft-Gault formula]: 153 mL/min Current Pertinent Medications: none per chart review Past Rheumatologic Medications: oral Gabapentin, oral NSAIDs, and Acetaminophen Mrs. Dari Aparicio is a pleasant 34 year-old female with longstanding history of polyarticular joint pain considered secondary to several mechanical injuries Patient reports first experiencing musculoskeletal symptoms in 2018 Patient denies experiencing a specific eliciting or traumatic event or viral prodrome to account for symptom onset Joints initially involved: bilateral knees Diagnosed with plica syndrome based upon clinical interview and physical exam by Orthopedic surgeon, Dr. Cris Olson Subsequently completed bilateral knee arthroscopies for plica resections Completed postoperative Physical Therapy - denies maintenance of strengthening regimen since States that "knees have never been the same" Report of progressive crepitus, weakness, and locking sensation, most notable with stair ascension and descension While resuming strength training in 2019, patient reports sustaining a right hip acetabular labral tear Mechanism of injury: abductor machine use while actively squatting with maximum weight Patient reports surgical repair as first line of therapy under directive of [facility] Orthopedic team Patient reports that despite completion of 16-weeks of postoperative Physical Therapy, she has never experienced symptomatic improvement, further reporting chronic pain and inability to lie on her right side Due to chronic pain, updated diagnostic right hip MRI was completed in 2020, identifying a new, secondary tear Patient denies having completed surgical intervention due to her prior experience Patient denies consulting an alternative Orthopedic team to discuss symptoms and establishing an effective management strategy In June 2024, patient reports experiencing acute lumbar disc herniation Mechanism of injury: lifting a patient without assistance Report of severe left-sided sciatica and midline axial pain Administered two epidural corticosteroid injections under directive of [facility] with pain relief Most recent - 01/17/2025 Note of radiculopathy resolution Management strategies to date for musculoskeletal symptomology - including, but not limited to: activity modification, rest, bracing, ice application, Physical Therapy, oral analgesics, Gabapentin, intraarticular corticosteroid injections, lumbar epidural injections, and surgical intervention Due to 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 and pain recalcitrant to aforementioned mechanisms, patient presents to [facility] for further evaluation Father: Rheumatoid Arthritis Maternal aunt: Crohn's disease and Multiple Sclerosis (MS) Denies: Fever Lymphadenopathy Unintentional weight loss Skin manifestations, including, but not limited to: Malar rash, photosensitivity, nonscarring alopecia, digital ischemia consistent with Raynaud's phenomena, psoriasis, nail changes [pitting or dystrophy], tophi, and subcutaneous nodules History of or symptoms consistent with inflammatory eye disease History of inflammatory bowel disease - negative colonoscopies Limitations in joint mobility secondary to (more content not included)... Normal [facility] CRP SerPl-mCncon 01-18-2025 CRP [Mass/Vol] mg/L Normal <0.9 [facility] Comment on above: Order Comment: Argelia rios Type: BLOOD SPECIMEN Ordering Facility: [facility] Address: [address] [place] [address] Performed By: #### 1 988-5, 20423-8 #### [facility] CLIA [id number] 1000 [place] [address] [facility] CRP [Mass/Vol]on 01-18-2025 Interpretation and review of laboratory results Normal [facility] Comprehensive metabolic 2000 panelon 01-18-2025 Albumin [Mass/Vol] 4.5 g/dL 3.9 - 4.9 g/dL [facility] ALP [Catalytic activity/Vol] 55 U/L 34 - 123 U/L [facility] ALT [Catalytic activity/Vol] 13 U/L 7 - 38 U/L [facility] Anion gap [Moles/Vol] 11 mmol/L 8 - 15 mmol/L [facility] AST [Catalytic activity/Vol] 9 U/L Low 13 - 35 U/L [facility] Bilirubin [Mass/Vol] 0.3 mg/dL 0.2 - 1 .3 mg/dL [facility] Calcium [Mass/Vol] 9.4 mg/dL 8.5 - 10. 2 mg/dL [facility] Chloride [Moles/Vol] 105 mmol/L 98 - 10 7 mmol/L [facility] CO2 [Moles/Vol] 26 mmol/L 22 - 30 mmol/L [facility] Creatinine [Mass/Vol] 0.52 mg/dL Low 0.58 - 0.96 mg/dL [facility] GFR/1.73 sq M.predicted among non-blacks MDRD (S/P/Bld) [Vol rate/Area] 125 mL/min/{1.73_m2} - PINF [facility] Comment on above: Estimated Glomerular Filtration Rate (eGFR) is calculated using the 2020 CKD-EPI creatinine equation. This equation utilizes serum creatinine, sex, and age as parameters. The creatinine assay has traceable calibration to isotope dilution-mass spectrometry. Refer to KDIGO guidelines for clinical interpretation. In patients with unstable renal function, e.g. those with acute kidney injury, the eGFR may not accurately reflect actual GFR. Glucose [Mass/Vol] 91 mg/dL 74 - 99 mg/dL [facility] Comment on above: The [place] Diabete s Association (ADA) provides guidance for cutoff values for fasting glucose and random glucose. The ADA defines fasting as no caloric intake for at least 8 hours. Fasting plasma glucose results between 100 to 125 mg/dL indicate increased risk for diabetes (prediabetes). Fasting plasma glucose results greater than or equal to 126 mg/dL meet the criteria for diagnosis of diabetes. In the absence of unequivocal hyperglycemia, results should be confirmed by repeat testing. In a patient with classic symptoms of hyperglycemia or hyperglycemic crisis, random plasma glucose results greater than or equal to 200 mg/dL meet the criteria for diagnosis of diabetes. Reference: Standards of Medical Care in Diabetes 2016, [place] Diabetes Association. Diabetes Care. 2016.39(Suppl 1). Interpretation and review of laboratory results Abnormal [facility] Potassium [Moles/Vol] 3.7 mmol/L 3.7 - 5.1 mmol/L [facility] Protein [Mass/Vol] 7.5 g/dL 6.3 - 8.0 g/dL [facility] Sodium [Moles/Vol] 142 mmol/L 136 - 144 mmol/L [facility] Urea nitrogen [Mass/Vol] 9 mg/dL 7 - 21 mg/dL [facility] Albumin [Mass/Vol] 4.5 g/dL Normal 3.9-4.9 [facility] Comment on above: Order Comment: Argelia rios Type: BLOOD SPECIMEN Ordering Facility: [facility] Address: [address] [place] [address] Performed By: #### 1 988-5, 10529-2 #### [facility] CLIA [id number] [address] STATES [facility] ALP [Catalytic activity/Vol] 55 U/L Normal 34-123 [facility] Comment on above: Order Comment: Argelia rios Type: BLOOD SPECIMEN Ordering Facility: [facility] Address: [facility] [place] [address] Performed By: #### 1 988-5, 12285336-0 #### [facility] CLIA [id number] [address] STATES OF [facility] ALT [Catalytic activity/Vol] 13 U/L Normal 7-38 [facility] Comment on above: Order Comment: Speci men Type: BLOOD SPECIMEN Ordering Facility: [facility] Address: [address] [place] [address] Performed By: #### 1 988-5, 78106-7 #### [facility] CLIA [id number] [address] [place] Anion gap [Moles/Vol] 11 mmol/L Normal 8-15 [facility] Comment on above: Order Comment: Speci men Type: BLOOD SPECIMEN Ordering Facility: [facility] Address: [address] [place] [address] Performed By: #### 1 988-5, #### [facility] CLIA [id number] [address] AST [Catalytic activity/Vol] 9 U/L Low 13-35 [facility] Comment on above: Order Comment: Speci men Type: BLOOD SPECIMEN Ordering Facility: [facility] Address: [address] [place] [address] Performed By: #### 1 988-5, 82906-4 #### [facility] CLIA [id number] [address] [place] Bilirubin [Mass/Vol] 0.3 mg/dL Normal 0.2-1.3 [facility] Comment on above: Order Comment: Speci men Type: BLOOD SPECIMEN Ordering Facility: [facility] Address: [address] [place] [address] Performed By: #### 1 988-5, #### [facility] CLIA [id number] [address] [place] Calcium [Mass/Vol] 9.4 mg/dL Normal 8.5-10.2 [facility] Comment on above: Order Comment: Speci men Type: BLOOD SPECIMEN Ordering Facility: [facility] Address: [address] [place] [address] Performed By: #### 1 988-5, 52481-2 #### [facility] CLIA [id number] [address] [place] [address] [place] Chloride [Moles/Vol] 105 mmol/L Normal 98-107 [facility] Comment on above: Order Comment: Speci men Type: BLOOD SPECIMEN Ordering Facility: [facility] Address: [address] [place] [address] Performed By: #### 1 988-5, 12218-5 #### [facility] CLIA [id number] [address] [place] CO2 [Moles/Vol] 26 mmol/L Normal 22-30 [facility] Comment on above: Order Comment: Speci men Type: BLOOD SPECIMEN Ordering Facility: [facility] Address: [address] [place] [address] Performed By: #### 1 988-5, 84753-4 #### [facility] CLIA [id number] [address] STATES OF [facility] Creatinine [Mass/Vol] 0.52 mg/dL Low 0.58-0.96 [facility] Comment on above: Order Comment: Speci men Type: BLOOD SPECIMEN Ordering Facility: [facility] Address: [address] [place] [address] Performed By: #### 1 988-5, 22278-5 #### [facility] CLIA [id number] [address] eGFRcr SerPlBld CKD-EPI 2020 125 mL/min/1.73m??? Normal >=60 [facility] Comment on above: Order Comment: Argelia rios Type: BLOOD SPECIMEN Ordering Facility: [facility] Address: [address] [place] [address] Result Comment: Nadira mated Glomerular Filtration Rate (eGFR) is calculated using the 2020 CKD-EPI creatinine equation. This equation utilizes serum creatinine, sex, and age as parameters. The creatinine assay has traceable calibration to isotope dilution-mass spectrometry. Refer to KDIGO guidelines for clinical interpretation. In patients with unstable renal function, e.g. those with acute kidney injury, the eGFR may not accurately reflect actual GFR. Performed By: #### 1 988-5, 00796-7 #### [facility] CLIA [id number] [address] [place] [address] [place] Glucose [Mass/Vol] 91 mg/dL Normal 74-99 [facility] Comment on above: Order Comment: Argelia rios Type: BLOOD SPECIMEN Ordering Facility: [facility] Address: [address] [place], [place] [id number] Result Comment: The [place] Diabetes Association (ADA) provides guidance for cutoff values for fasting glucose and random glucose. The ADA defines fasting as no caloric intake for at least 8 hours. Fasting plasma glucose results between 100 to 125 mg/dL indicate increased risk for diabetes (prediabetes). Fasting plasma glucose results greater than or equal to 126 mg/dL meet the criteria for diagnosis of diabetes. In the absence of unequivocal hyperglycemia, results should be confirmed by repeat testing. In a patient with classic symptoms of hyperglycemia or hyperglycemic crisis, random plasma glucose results greater than or equal to 200 mg/dL meet the criteria for diagnosis of diabetes. Reference: Standards of Medical Care in Diabetes 2016, [place] Diabetes Association. Diabetes Care. 2016.39(Suppl 1). Performed By: #### 1 988-5, 85657-0 #### [facility] CLIA [id number] 1000 [place] [address] [place] Potassium [Moles/Vol] 3.7 mmol/L Normal 3.7-5.1 [facility] Comment on above: Order Comment: Argelia rios Type: BLOOD SPECIMEN Ordering Facility: [facility] Address: [address] [place] [address] Performed By: #### 1 988-5, 16102-3 #### [facility] CLIA [id number] [address] [place] [address] [place] Protein [Mass/Vol] 7.5 g/dL Normal 6.3-8.0 [facility] Comment on above: Order Comment: Argelia rios Type: BLOOD SPECIMEN Ordering Facility: [facility] Address: [address] [place] [address] Performed By: #### 1 988-5, 32007-3 #### [facility] CLIA [id number] [address] [place] [address] [place] Sodium [Moles/Vol] 142 mmol/L Normal 136-144 [facility] Comment on above: Order Comment: Argelia rios Type: BLOOD SPECIMEN Ordering Facility: [facility] Address: [address] [place] [address] Performed By: #### 1 988-5, 33906-2 #### [facility] CLIA [id number] [address] STATES [facility] Urea nitrogen [Mass/Vol] 9 mg/dL Normal 7-21 [facility] Comment on above: Order Comment: Speci men Type: BLOOD SPECIMEN Ordering Facility: [facility] Address: [address] [place] [address] Performed By: #### 1 988-5, 17515-3 #### [facility] CLIA [id number] [address] [place] Cyclic citrullinated peptide IgG Qnon 01-18-2025 CCP ANTIBODY IGG QUALITATIVE Negative Normal Negative [facility] Comment on above: Order Comment: Speci men Type: BLOOD SPECIMEN Ordering Facility: [facility] Address: [address] [place] [address] Performed By: #### 3 3935-8 #### [facility] CLIA [id number] [address] [place] [address] [place] ESR Westergren method (Bld) [Velocity]on 01-18-2025 ESR (Bld) [Velocity] 17 mm/h [facility] Interpretation and review of laboratory results Normal [facility] ESR (Bld) [Velocity] 17 mm/h Normal 0-20 [facility] Comment on above: Order Comment: Speci men Type: BLOOD SPECIMEN Ordering Facility: [facility] Address: [address] [place] [address] Performed By: #### 4 537-7 #### [facility] CLIA [id number] [address] [place] [address] [place] No Panel Informationon 01-18 [facility] RHEUMATOID FACTORon 01-19-20 25 Rheumatoid factor Qn NINF [facility] Rheumatoid fact SerPl-aCncon 01-18-2025 Rheumatoid factor Qn [IU]/mL Normal <16 [facility] Comment on above: Order Comment: Speci men Type: BLOOD SPECIMEN Ordering Facility: [facility] Address: [address] [place] [address] Performed By: #### 1 1572-5 #### [facility] CLIA [id number] [address] [place] [address] [place] [address] [place] Rheumatoid factor Qnon 01-18 Interpretation and review of laboratory results Normal [facility] XR HIP GINETTE 5V PEL+ AP/LAT EA HIPon 01-18-2025 XR HIP GINETTE 5V PEL+ AP/LAT EA HIP * * *Final Report* * * DATE OF EXAM: Jan 18 2025 9:38AM ESTELA 5353 - XR HIP GINETTE 5V PEL+ AP/LAT EA HIP / PROCEDURE REASON: M25.50-Pain in joint, multiple sites * * * * Physician Interpretation * * * * EXAMINATION / TECHNIQUE: XR HIP GINETTE 5V PEL+ AP/LAT EA HIP, XR SI JTS 2V AP PELV/POLLACK HISTORY: pain in joint, multiple sites Pain in joint, multiple sites COMPARISON: Lumbar spine radiographs dated 04/19/2011. RESULT: No fracture or osseous malalignment. The sacroiliac joints are intact without periarticular sclerosis, erosion, or ankylosis. Hip joint spaces are maintained. The symphysis pubis is intact. COMBINED IMPRESSION: No acute bony abnormality or evidence of inflammatory arthropathy. Pumper Helper: RIANA Transcribe Date/Time: Jan 24 2025 6:56P Dictated by : KO MALONE MD This examination was interpreted and the report reviewed and electronically signed by: KO MALONE MD on Jan 24 2025 6:57PM EST [id number] [facility] XR KNEE 4V AP/PA/LAT/MERCH B ILon 01-18-2025 XR KNEE 4V AP/PA/LAT/MERCH GINETTE * * *Final Report* * * DATE OF EXAM: Jan 18 2025 9:38AM ESTELA 5618 - XR KNEE 4V AP/PA/LAT/MERCH GINETTE / PROCEDURE REASON: M25.50-Pain in joint, multiple sites * * * * Physician Interpretation * * * * EXAMINATION / TECHNIQUE: XR KNEE 4V AP/PA/LAT/MERCH GINETTE HISTORY: pain in joint, multiple sites Pain in joint, multiple sites COMPARISON: 08/06/2015. RESULT: No acute fracture or osseous malalignment is identified. The joint spaces are preserved. No joint effusion in either knee. IMPRESSION: No acute bony abnormality. Pumper Helper: RIANA Transcribe Date/Time: Jan 24 2025 6:58P Dictated by : KO MALONE MD This examination was interpreted and the report reviewed and electronically signed by: KO MALONE MD on Jan 24 2025 6:58PM EST [id number] LUMBAR 3V AP/LAT/L5-S1on 01-18-2025 XR LUMBAR 3V AP/LAT/L5-S1 * * *Final Report* * * DATE OF EXAM: Jan 18 2025 9:38AM ESTELA 5228 - XR LUMBAR 3V AP/LAT/L5-S1 / PROCEDURE REASON: M25.50-Pain in joint, multiple sites * * * * Physician Interpretation * * * * EXAM TITLE: XR LUMBAR 3V AP/LAT/L5-S1 EXAM DATE/TIME: 01/18/2025 9:38 AM COMPARISON: None. CLINICAL INDICATION/HISTORY: Pain TECHNIQUE: AP, lateral and cone down lateral views of the lumbar spine are presented. FINDINGS: There are five vmh-oqd-xhahjhh lumbar vertebrae. No fracture or subluxations are noted. The disc spaces are well preserved. There is no significant osteophyte formation. Questionable kissing spine. IMPRESSION: Questionable kissing spine. Pumper Helper: [facility] Transcribe Date/Time: Jan 22 2025 4:13P Dictated by : THUY COWART MD This examination was interpreted and the report reviewed and electronically signed by: THUY COWART MD on Jan 22 2025 4:14PM EST [id number] XR SI JTS 2V AP PELV/FERGUSO Non 01-18-2025 XR SI JTS 2V AP PELV/POLLACK * * *Final Report* * * DATE OF EXAM: Jan 18 2025 9:38AM ESTELA 5245 - XR SI JTS 2V AP PELV/POLLACK / PROCEDURE REASON: M25.50-Pain in joint, multiple sites * * * * Physician Interpretation * * * * EXAMINATION / TECHNIQUE: XR HIP GINETTE 5V PEL+ AP/LAT EA HIP, XR SI JTS 2V AP PELV/POLLACK HISTORY: pain in joint, multiple sites Pain in joint, multiple sites COMPARISON: Lumbar spine radiographs dated 04/19/2011. RESULT: No fracture or osseous malalignment. The sacroiliac joints are intact without periarticular sclerosis, erosion, or ankylosis. Hip joint spaces are maintained. The symphysis pubis is intact. COMBINED IMPRESSION: No acute bony abnormality or evidence of inflammatory arthropathy. Pumper Helper: [facility] Transcribe Date/Time: Jan 24 2025 6:56P Dictated by : KO MALONE MD This examination was interpreted and the report reviewed and electronically signed by: KO MALONE MD on Jan 24 2025 6:57PM EST [id number] Normal [facility] cCP IgG SerPl-aCncon 025 Cyclic citrullinated peptide IgG Qn <15 Normal <20 [facility] Comment on above: Order Comment: Speci men Type: BLOOD SPECIMEN Ordering Facility: [facility] Address: [address] [place] [address] Performed By: #### 3 3935-8 #### [facility] CLIA [id number] [address] [place] [address] [place] XR FLUORO GUIDANCE FOR THERA PY INJECTIONon 01-17-2025 XR FLUORO GUIDANCE FOR THERAPY INJECTION ORIGINAL Images acquired, not reported on this accession number. Normal [facility] CBC-Complete Blood Cnt No Di ffon 01-11-2025 Erythrocyte distribution width (RBC) [Ratio] 13.4 % Normal 11.6-14.6 [facility] Comment on above: Performed By: #### L 100.0100, L501.4021, L500.2500 #### [facility] [address] [place], [address] Hematocrit (Bld) [Volume fraction] 36.2 % Low 37-47 [facility] Comment on above: Performed By: #### L 100.0100, L501.4021, L500.2500 #### [facility] [address] [place], [address] Hemoglobin (Bld) [Mass/Vol] 12.3 g/dL Normal 12.0-15.0 [facility] Comment on above: Performed By: #### L 100.0100, L501.4021, L500.2500 #### [facility] [address] [place], [address] MCH (RBC) [Entitic mass] 29.3 pg Normal 27.0-32.0 [facility] Comment on above: Performed By: #### L 100.0100, L501.4021, L500.2500 #### [facility] [address] [place], [address] MCHC (RBC) [Mass/Vol] 34.0 g/dL Normal 32-36 [facility] Comment on above: Performed By: #### L 100.0100, L501.4021, L500.2500 #### [facility] [address] [place], [address] MCV (RBC) [Entitic vol] 86.2 fL Normal 81-99 [facility] Comment on above: Performed By: #### L 100.0100, L501.4021, L500.2500 #### [facility] [address] [place], [address] Platelet mean volume (Bld) [Entitic vol] 9.2 fL Normal 6.2-12.0 [facility] Comment on above: Performed By: #### L 100.0100, L501.4021, L500.2500 #### [facility] [address] [place], [address] Platelets (Bld) [#/Vol] 356 10*3/uL Normal 150-450 [facility] Comment on above: Performed By: #### L 100.0100, L501.4021, L500.2500 #### [facility] [address] [place], [address] RBC (Bld) [#/Vol] 4.20 10*6/uL Normal 4.2-5.4 [facility] Comment on above: Performed By: #### L 100.0100, L501.4021, L500.2500 #### [facility] [address] [place], [address] RDW SD 41.6 fl Normal 35.1-43.9 [facility] Comment on above: Performed By: #### L 100.0100, L501.4021, L500.2500 #### [facility] [address] [place], [address] WBC (Bld) [#/Vol] 5.8 10*3/uL Normal 4.4-11.0 [facility] Comment on above: Performed By: #### L 100.0100, L501.4021, L500.2500 #### [facility] [address] [place], [address] Erythrocyte distribution wid th ratioOrdered By: Es Villarreal on 01-11-2025 Erythrocyte distribution width (RBC) [Ratio] 13.4 % 11.6-14.6 [facility] Erythrocyte distribution wid th standard deviationOrdered By: Es Villarreal on 01-11-2025 Erythrocyte distribution width (RBC) [Ratio] 41.6 fl 35.1-43.9 [facility] Hematocrit Auto (Bld) [Volum e fraction]Ordered By: Es Villarreal on 01-11-2025 Hematocrit (Bld) [Volume fraction] 36.2 % Low 37-47 [facility] Hemoglobin measurementOrdere d By: Es Villarreal on 01-11-2025 Hemoglobin (Bld) [Mass/Vol] 12.3 g/dL 12.0-15.0 [facility] MCV (mean corpuscular volume ) determinationOrdered By: Es Villarreal on 01-11-2025 MCV (RBC) [Entitic vol] 86.2 fL 81-99 [facility] Mean corpuscular hemoglobin (MCH) determinationOrdered By: Es Villarreal on 01-11-2025 MCH (RBC) [Entitic mass] 29.3 pg 27.0-32.0 [facility] Mean corpuscular hemoglobin concentration (MCHC) determinationOrdered By: Es Villarreal on 01-11-2025 MCHC (RBC) [Mass/Vol] 34.0 g/dL 32-36 [facility] Mean platelet volume determi nationOrdered By: Es Villarreal on 01-11-2025 Platelet mean volume (Bld) [Entitic vol] 9.2 fL 6.2-12.0 [facility] [employer] Television Console Monitor Office Visit Reporton 01-11-2025 Color Television Console Monitor Office Visit Report [facility] [address], [address] [place] [address] OFFICE VISIT Date of Service: 01/11/25 MR#: [id number] Acct: [id number] Name: DARI APARICIO Rep #: [id number] : 1990 Provider: Dr. Es Alcaraz DO Age/Sex: 34/F Location: [facility] [place] Status: Signed with Addenda ADDENDUM by Dr. Es Cline DO on 01/11/25 at 1505 Assessment and Plan Assessment and Plan (1) Bleeding, uterine, dysfunctional: Status: Acute (2) Menorrhagia: Status: Acute (3) Anemia, normocytic normochromic: Status: Acute (4) Intermittent lightheadedness: Status: Acute (5) Fatigue: Status: Acute Orders: Orders Thyroid Stim Hormone (TSH) Today R53.83 - Other fatigue Pelvic w/ Transvaginal Today D64.9 - Anemia, unspecified, N92.0 - Excessive and frequent menstruation with regular cycle, N93.8 - Other specified abnormal uterine and vaginal bleeding CBC-Complete Blood Cnt No Diff Today D64.9 - Anemia, unspecified, N92.0 - Excessive and frequent menstruation with regular cycle, N93.8 - Other specified abnormal uterine and vaginal bleeding Plan RTO for EMB after ultrasound iron infusion ordered 01/11/25 1505 Date Ira Clinenifer cc: * Signed Intake Vital Signs 12/03/24 15:01 01/05/25 23:27 01/11/25 14:30 01/11/25 14:32 Height 5 ft 1 in 5 ft 1 in 5 ft 1 in 5 ft 1 in Weight: 167 lb 3 oz BMI 31.6 BP 126/86 H Intake Visit Reasons: AUB per JV 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: No Is patient in pain?: No Allergies megestrol (From Megace) Adverse Reaction (Intermediate, Verified 01/11/25 14:39) chest pain amoxicillin (From Augmentin) Adverse Reaction (Mild, Verified 01/11/25 14:29) Vomiting clavulanic acid (From Augmentin) Adverse Reaction (Mild, Verified 01/11/25 14:29) Vomiting naproxen Adverse Reaction (Verified 01/11/25 14:29) Other varenicline tartrate (From Chantix) Adverse Reaction (Verified 01/11/25 14:29) Other Medications ???Medication ???Instructions ???Recorded ???Confirmed ???Type ondansetron 4 mg disintegrating 4 mg PO Q6H PRN nausea and 5 01/11/25 Rx tablet vomiting #10 tabs desvenlafaxine succinate 50 mg 50 mg PO DAILY #90 tabs 08/22/24 0 01/11/25 Rx tablet,extended release 24 hr omeprazole 40 mg capsule,delayed 40 mg PO BID #60 caps 09/17/24 Rx release dulaglutide 0.75 mg/0.5 mL 4.5 mg subcut QWEEK 01/11/2501/11 History subcutaneous pen injector (Trulicity) polyethylene glycol 3350 17 4 g PO ONCE 01/11/25 01/11/25 Hist ory gram/dose oral powder (Miralax) Post menopausal: No Patient : No : [...] smokin alcohol intake: current alcohol intake frequency: holidays/spe (more content not included)... Normal [facility] Platelet countOrdered By: Andrea Villarreal on 01-11-2025 Platelets (Bld) [#/Vol] 356 10*3/uL 150-450 [facility] RBC Auto (Bld) [#/Vol]Ordere d By: Es Villarreal on 01-11-2025 RBC (Bld) [#/Vol] 4.20 10*6/uL 4.2-5.4 [facility] TSH DL <= 0.005 mIU/L QnOrde red By: Es Villarreal on 01-11-2025 TSH Qn 0.438 uIU/mL 0.300-4.20 0 [facility] Thyroid Stim Hormone (TSH)on 01-11-2025 TSH 0.438 uIU/mL Normal 0.300-4.20 0 [facility] Comment on above: Performed By: #### L 100.0100, L501.4021, L500.2500 #### [facility] [address] [place], [address] White blood cell (WBC) count Ordered By: Es Villarreal on 01-11-2025 WBC (Bld) [#/Vol] 5.8 10*3/uL 4.4-11.0 [facility] Basic Metabolic Profile (BMP )on 01-06-2025 BUN/CRE 18.5 RATIO Normal 10-20 [facility] Comment on above: Performed By: #### L 100.0100, L501.4021, L500.2500 #### [facility] [address] [place], [address] Calcium [Mass/Vol] 9.3 mg/dL Normal 7.6-11.0 [facility] Comment on above: Performed By: #### L 100.0100, L501.4021, L500.2500 #### [facility] [address] [place], [address] Chloride [Moles/Vol] 105 mmol/L Normal 98-108 [facility] Comment on above: Performed By: #### L 100.0100, L501.4021, L500.2500 #### [facility] [address] [place], [address] CO2 [Moles/Vol] 27.1 mmol/L Normal 21.0-32.0 [facility] Comment on above: Performed By: #### L 100.0100, L501.4021, L500.2500 #### [facility] [address] [place], [address] Creatinine [Mass/Vol] 0.69 mg/dL Low 0.70-1.20 [facility] Comment on above: Performed By: #### L 100.0100, L501.4021, L500.2500 #### [facility] [address] [place], [address] ECRCL 109.83 ml/min Normal 50-250 [facility] Comment on above: Performed By: #### L 100.0100, L501.4021, L500.2500 #### [facility] [address] [place], [address] GAP 11 Normal 5-15 [facility] Comment on above: Performed By: #### L 100.0100, L501.4021, L500.2500 #### [facility] [address] [place], [address] GFR/1.73 sq M.predicted among non-blacks MDRD (S/P/Bld) [Vol rate/Area] 117 mL/min/{1.73_m2} Normal >60 [facility] Comment on above: Result Comment: mL/m in/1.73m2 CKD-EPI Creatinine Equation (2020) Performed By: #### L 100.0100, L501.4021, L500.2500 #### [facility] [address] [place], [address] Glucose [Mass/Vol] 116 mg/dL High 70-99 [facility] Comment on above: Performed By: #### L 100.0100, L501.4021, L500.2500 #### [facility] [address] [place], [address] Potassium [Moles/Vol] 3.9 mmol/L Normal 3.3-5.1 [facility] Comment on above: Performed By: #### L 100.0100, L501.4021, L500.2500 #### [facility] [address] [place], [address] Sodium [Moles/Vol] 142 mmol/L Normal 133-145 [facility] Comment on above: Performed By: #### L 100.0100, L501.4021, L500.2500 #### [facility] [address] [place], [address] Urea nitrogen [Mass/Vol] 13 mg/dL Normal 4-19 [facility] Comment on above: Performed By: #### L 100.0100, L501.4021, L500.2500 #### [facility] [address] [place], [address] CBC W/Diff, Automatedon 12-21 Absolute Lymph 2.17 X10 3/uL Normal 0.83-4.51 [facility] Comment on above: Performed By: #### L 100.0100, L501.4021, L500.2500 #### [facility] [address] [place], [address] Absolute Neut 1.9 X10 3/uL Low 2.0-7.7 [facility] Comment on above: Performed By: #### L 100.0100, L501.4021, L500.2500 #### [facility] [address] [place], [address] Basophils/100 WBC (Bld) 0.7 % Normal 0-1 [facility] Comment on above: Performed By: #### L 100.0100, L501.4021, L500.2500 #### [facility] [address] [place], [address] Eosinophils/100 WBC (Bld) 0.4 % Normal 0-5 [facility] Comment on above: Performed By: #### L 100.0100, L501.4021, L500.2500 #### [facility] [address] [place], [address] Erythrocyte distribution width (RBC) [Ratio] 13.6 % Normal 11.6-14.6 [facility] Comment on above: Performed By: #### L 100.0100, L501.4021, L500.2500 #### [facility] [address] [place], [address] Hematocrit (Bld) [Volume fraction] 31.8 % Low 37-47 [facility] Comment on above: Performed By: #### L 100.0100, L501.4021, L500.2500 #### [facility] [address] [place], [address] Hemoglobin (Bld) [Mass/Vol] 10.9 g/dL Low 12.0-15.0 [facility] Comment on above: Performed By: #### L 100.0100, L501.4021, L500.2500 #### [facility] [address] [place], [address] IG% 0.200 Normal 0.0-0.9 [facility] Comment on above: Result Comment: IG% - Immature Granulocytes (promyelocytes, myelocytes and metamyelocytes) > 1% indicates that a LEFT SHIFT is Present. Performed By: #### L 100.0100, L501.4021, L500.2500 #### [facility] [address] [place], [address] Lymphocytes/100 WBC (Bld) 48.0 % High 19-41 [facility] Comment on above: Performed By: #### L 100.0100, L501.4021, L500.2500 #### [facility] [address] [place], [address] MCH (RBC) [Entitic mass] 29.3 pg Normal 27.0-32.0 [facility] Comment on above: Performed By: #### L 100.0100, L501.4021, L500.2500 #### [facility] [address] [place], [address] MCHC (RBC) [Mass/Vol] 34.3 g/dL Normal 32-36 [facility] Comment on above: Performed By: #### L 100.0100, L501.4021, L500.2500 #### [facility] [address] [place], [address] MCV (RBC) [Entitic vol] 85.5 fL Normal 81-99 [facility] Comment on above: Performed By: #### L 100.0100, L501.4021, L500.2500 #### [facility] [address] [place], [address] Monocytes/100 WBC (Bld) 8.8 % Normal 0-10 [facility] Comment on above: Performed By: #### L 100.0100, L501.4021, L500.2500 #### [facility] [address] [place], [address] Neutrophils/100 WBC (Bld) 41.9 % Low 47-70 [facility] Comment on above: Performed By: #### L 100.0100, L501.4021, L500.2500 #### [facility] [address] [place], [address] Nucleated RBC (Bld) [#/Vol] 0 10*3/uL Normal 0-5 [facility] Comment on above: Performed By: #### L 100.0100, L501.4021, L500.2500 #### [facility] [address] [place], [address] Platelet mean volume (Bld) [Entitic vol] 9.0 fL Normal 6.2-12.0 [facility] Comment on above: Performed By: #### L 100.0100, L501.4021, L500.2500 #### [facility] [address] [place], [address] Platelets (Bld) [#/Vol] 301 10*3/uL Normal 150-450 [facility] Comment on above: Performed By: #### L 100.0100, L501.4021, L500.2500 #### [facility] [address] [place], [address] RBC (Bld) [#/Vol] 3.72 10*6/uL Low 4.2-5.4 [facility] Comment on above: Performed By: #### L 100.0100, L501.4021, L500.2500 #### [facility] [address] [place], [address] RDW SD 42.3 fl Normal 35.1-43.9 [facility] Comment on above: Performed By: #### L 100.0100, L501.4021, L500.2500 #### [facility] [address] [place], [address] WBC (Bld) [#/Vol] 4.5 10*3/uL Normal 4.4-11.0 [facility] Comment on above: Performed By: #### L 100.0100, L501.4021, L500.2500 #### [facility] [address] [place], [address] Chest 1 View (Portable)on Chest 1 View (Portable) [facility] Imaging Services [address] [place] [address] Chest 1 View (Portable) MR#: [id number] Acct: [id number] Name: DARI APARICIO Rep #: [id number] : 1990 F 34 From: Giovanny wang MD PCP: Dr. Steph Camacho MD Status: REG ER Study: Chest 1 View (Portable) Date of Exam: 01/06/25 Exam# [id number] Ordering Dr: Hernán Alex MD PROCEDURE: CHEST 1 VIEW (PORTABLE) 01/06/2025 REASON FOR EXAM: CHEST PAIN TECHNIQUE: Frontal view of the chest. COMPARISON: 07/10/2024. FINDINGS: The lungs are expanded. There is no demonstrated parenchymal abnormality. There is no demonstrated pleural abnormality. Normal heart and pericardium. Normal mediastinum and vamsi. Normal visualized pulmonary arteries. Normal visualized aortic arch and descending thoracic aorta. Normal visualized thoracic spine. Normal visualized ribs, clavicles, and shoulders. There is no demonstrated abnormality of the visualized soft tissue structures of the upper abdomen. RAD/Chest 1 View (Portable) IMPRESSION: No evidence for acute abnormality. Reading Location: [place] [address] CC: Dr. Steph Camacho MD; Dr. Hernán Alex MD Pumper Helper: Signed Normal [facility] Emergency Department Summary on 01-06-2025 Emergency Department Summary [facility] Medical Records Department [address] [place] [address] Emergency Department Summary 01/06/25 MR#: [id number] Acct: [id number] Name: DARI APARICIO Rep #: [id number] : 1990 34 From: Hernán Alex MD PCP: Dr. Steph Camacho MD Status:REG ER Location: ED HPI History of Present Illness Chief Complaint: Chest Pain Informant: patient and family Narrative Narrative: 34-year-old female states she has a history of heavy menstrual cycles and anemia saying that she just recently had a cycle, she starting another episode of bleeding today which is not the right time, it is not heavy right now though, and she has had 2-3 days of chest tightness without dyspnea, lightheadedness, fatigue, some blurry vision at times, some headaches at times. She tells me that she feels it is related to her anemia. She has an appointment with an PROFESSOR OF MUSIC to be evaluated for hysterectomy. Her mother is here and tells me that she had the same issues and had a partial hysterectomy. The patient states she has never had a blood transfusion. She has iron deficiency, however she cannot tolerate oral iron pills because of severe constipation, however when it comes to parenteral iron, she had an infusion once and it was not recent. She is on no other treatments for anemia. [facility] Medical History Leg cramping Delayed gastric emptying [...] Obesity Scoliosis IBS (irritable bowel syndrome) Preeclampsia Home Medications ???Medication ???Instructions ???Recorded ???Last Taken ???Type ondansetron 4 mg disintegrating 4 mg PO Q6H PRN nausea and 5 Unknown Rx tablet vomiting #10 tabs desvenlafaxine succinate 50 mg 50 mg PO DAILY #90 tabs 08/22/24 U nknown Rx tablet,extended release 24 hr methocarbamol 500 mg tablet 500 mg PO TID PRN pain/spasms #60 09/03/24 Unknown Rx tabs dulaglutide 0.75 mg/0.5 mL 0.75 mg subcut QWEEK 09/17/24 Unkn own History subcutaneous pen injector (Trulicity) omeprazole 40 mg capsule,delayed 40 mg PO BID #60 caps 09/17/24 Unk nown Rx release megestrol 20 mg tablet 20 mg PO QDAY 30 days #30 tabs 01/14 Unknown Rx Allergy/AdvReac Type Severity Reaction Status Date / Time amoxicillin (From Augmentin) AdvReac Mild Vomiting Verified 12/03/24 14:50 clavulanic acid (From AdvReac Mild Vomiting Verified 12/03/24 14:50 Augmentin) naproxen AdvReac Other Verified 12/03/24 14:50 varenicline tartrate (From AdvReac Other Verified 12/03/24 14:50 Chantix) Family History Mother Depression Aunt Breast cancer Grandmother Diabetes Uncle Hyperlipemia Menieres disease Depression Grandfather Heart disease Myocardial infarction CVA (cerebral vascular accident) Sister Crohn's disease half sister Down syndrome Aunt Multiple sclerosis Crohn's disease Father Rheumatoid arthritis Brain aneurysm CVA (cerebral vascular accident) Myocardial infarction Brother Bipolar 1 disorder Mentally disabled Other Hypertension Surgical History Status post tubal [...] additional social history: Single ROS ROS ED Constitutional Constitutional ED: Reports fatigue and malaise; Denies body ache(s), chills or fever(s) Eyes (more content not included)... Normal [facility] L501.4021on 01-06-2025 Trop T High Sen < 6 Normal <=14 [facility] Comment on above: Performed By: #### L 100.0100, L501.4021, L500.2500 #### [facility] [address] [place], [place], [address] ,Serum,hCG Quali.on 01-06-2025 HCG, SERUM QUAL Negative Normal [facility] Comment on above: Performed By: #### L 731.1947 ####[facility] [id number] [place], [place], [id number] Troponin T HS 2 HRon 025 Trop T High Sen < 6 Normal <=14 [facility] Comment on above: Performed By: #### L 100.0100, L501.4021, L500.2500 #### [facility] [address] [place], [place], [address] Troponin T HS 4 HRon 025 Trop T High Sen Normal <=14 [facility] Comment on above: Result Comment: Canc elled via OM: Order cancelled - Patient discharged Performed By: #### L 499.0043 #### [facility] [address] [place], [address] Troponin T.cardiac [Mass/vol ume] in Serum or Plasma by High sensitivity methodOrdered By: Hernán Alex on 01-06-2025 Troponin T.cardiac High sensitivity method [Mass/Vol] < 6 ng/L <14 [facility] Absolute lymphocyte countOrd ered By: ED PROVIDER on 01-05-2025 Lymphocytes Auto (Unsp spec) [#/Vol] 2.17 10*3/uL 0.83-4.51 [facility] Absolute neutrophil countOrd ered By: ED PROVIDER on 01-05-2025 Neutrophils (Bld) [#/Vol] 1.9 10*3/uL Low 2.0-7.7 [facility] Anion gap in Serum or Plasma Ordered By: Hernán Alex on 01-05-2025 Anion gap [Moles/Vol] 11 mmol/L 5-15 [facility] Automated lymphocyte count a s percentage of total leukocytesOrdered By: ED PROVIDER on 01-05-2025 Lymphocytes/100 WBC Auto (Unsp spec) 48.0 % High 19-41 [facility] BUN/creatinine ratioOrdered By: Hernán Alex on 01-05-2025 Urea nitrogen/Creatinine [Mass ratio] 18.5 mg/mg 10-20 [facility] Basophil percentageOrdered B y: ED PROVIDER on 01-05-2025 Basophils/100 WBC (Bld) 0.7 % 0-1 [facility] Carbon dioxide, total [Moles /volume] in Central venous bloodOrdered By: Hernán Alex on 01-05-2025 CO2 [Moles/Vol] 27.1 mmol/L 21.0-32.0 [facility] Chloride assayOrdered By: Cesilia Alex on 01-05-2025 Chloride [Moles/Vol] 105 mmol/L 98-108 [facility] Eosinophil percentageOrdered By: ED PROVIDER on 01-05-2025 Eosinophils/100 WBC (Bld) 0.4 % 0-5 [facility] Erythrocyte distribution wid th ratioOrdered By: ED PROVIDER on 01-05-2025 Erythrocyte distribution width (RBC) [Ratio] 13.6 % 11.6-14.6 [facility] Erythrocyte distribution wid th standard deviationOrdered By: ED PROVIDER on 01-05-2025 Erythrocyte distribution width (RBC) [Ratio] 42.3 fl 35.1-43.9 [facility] Glomerular filtration rate ( GFR) estimation/1.73 sq m using serum, plasma, or whole bOrdered By: Hernán Alex on 01-05-2025 GFR/1.73 sq M.predicted among non-blacks MDRD (S/P/Bld) [Vol rate/Area] 117 mL/min/{1.73_m2} >60 [facility] Comment on above: mL/min/1.73m2 CKD-EP I Creatinine Equation (2020) Hematocrit Auto (Bld) [Volum e fraction]Ordered By: ED PROVIDER on 01-05-2025 Hematocrit (Bld) [Volume fraction] 31.8 % Low 37-47 [facility] Hemoglobin measurementOrdere d By: ED PROVIDER on 01-05-2025 Hemoglobin (Bld) [Mass/Vol] 10.9 g/dL Low 12.0-15.0 [facility] Immature granulocytes/100 WB C Auto (Bld)Ordered By: ED PROVIDER on 01-05-2025 Immature granulocytes/100 WBC (Bld) 0.200 % 0.0-0.9 [facility] Comment on above: IG% - Immature Granu locytes (promyelocytes, myelocytes and metamyelocytes) > 1% indicates that a LEFT SHIFT is Present. MCV (mean corpuscular volume ) determinationOrdered By: ED PROVIDER on 01-05-2025 MCV (RBC) [Entitic vol] 85.5 fL 81-99 [facility] Mean corpuscular hemoglobin (MCH) determinationOrdered By: ED PROVIDER on 01-05-2025 MCH (RBC) [Entitic mass] 29.3 pg 27.0-32.0 [facility] Mean corpuscular hemoglobin concentration (MCHC) determinationOrdered By: ED PROVIDER on 01-05-2025 MCHC (RBC) [Mass/Vol] 34.3 g/dL 32-36 [facility] Mean platelet volume determi nationOrdered By: ED PROVIDER on 01-05-2025 Platelet mean volume (Bld) [Entitic vol] 9.0 fL 6.2-12.0 [facility] Monocyte percentageOrdered B y: ED PROVIDER on 01-05-2025 Monocytes/100 WBC (Bld) 8.8 % 0-10 [facility] Neutrophil percentageOrdered By: ED PROVIDER on 01-05-2025 Neutrophils/100 WBC (Bld) 41.9 % Low 47-70 [facility] Nucleated red blood cell per centageOrdered By: ED PROVIDER on 01-05-2025 Nucleated RBC/100 WBC (Bld) [Ratio] 0 % 0-5 [facility] Platelet countOrdered By: ED PROVIDER on 01-05-2025 Platelets (Bld) [#/Vol] 301 10*3/uL 150-450 [facility] Potassium measurement (mass/ volume)Ordered By: Hernán Alex on 01-05-2025 Potassium (Unsp spec) [Mass/Vol] 3.9 mmol/L 3.3-5.1 [facility] RBC Auto (Bld) [#/Vol]Ordere d By: ED PROVIDER on 01-05-2025 RBC (Bld) [#/Vol] 3.72 10*6/uL Low 4.2-5.4 [facility] Serum beta-hCG test, qualita tiveOrdered By: Hernán Alex on 01-05-2025 Beta HCG ( test) Ql Negative [facility] Serum creatinine measurement (mass/volume)Ordered By: Hernán Alex on 01-05-2025 Creatinine [Mass/Vol] 0.69 mg/dL Low 0.70-1.20 [facility] Serum glucose measurement (m ass/volume)Ordered By: Hernán Alex on 01-05-2025 Glucose [Mass/Vol] 116 mg/dL High 70-99 [facility] Serum or plasma calcium miranda urement (mass/volume)Ordered By: Hernán Alex on 01-05-2025 Calcium [Mass/Vol] 9.3 mg/dL 7.6-11.0 [facility] Serum or plasma urea nitroge n measurement (mass/volume)Ordered By: Hernán Alex on 01-05-2025 Urea nitrogen [Mass/Vol] 13 mg/dL 4-19 [facility] Sodium levelOrdered By: Jason Alex on 01-05-2025 Sodium [Moles/Vol] 142 mmol/L 133-145 [facility] Troponin T.cardiac [Mass/vol ume] in Serum or Plasma by High sensitivity methodOrdered By: Hernán Alex on 01-05-2025 Troponin T.cardiac High sensitivity method [Mass/Vol] < 6 ng/L <14 [facility] White blood cell (WBC) count Ordered By: ED PROVIDER on 01-05-2025 WBC (Bld) [#/Vol] 4.5 10*3/uL 4.4-11.0 [facility] CBC-Complete Blood Cnt No Di ffon 01-04-2025 Erythrocyte distribution width (RBC) [Ratio] 13.8 % Normal 11.6-14.6 [facility] Comment on above: Performed By: #### L 100.0100, L501.4021, L500.2500 #### [facility] [address] [place], [address] Hematocrit (Bld) [Volume fraction] 33.1 % Low 37-47 [facility] Comment on above: Performed By: #### L 100.0100, L501.4021, L500.2500 #### [facility] [address] [place], [address] Hemoglobin (Bld) [Mass/Vol] 11.3 g/dL Low 12.0-15.0 [facility] Comment on above: Performed By: #### L 100.0100, L501.4021, L500.2500 #### [facility] [address] [place], [address] MCH (RBC) [Entitic mass] 29.1 pg Normal 27.0-32.0 [facility] Comment on above: Performed By: #### L 100.0100, L501.4021, L500.2500 #### [facility] [address] [place], [address] MCHC (RBC) [Mass/Vol] 34.1 g/dL Normal 32-36 [facility] Comment on above: Performed By: #### L 100.0100, L501.4021, L500.2500 #### [facility] [address] [place], [address] MCV (RBC) [Entitic vol] 85.3 fL Normal 81-99 [facility] Comment on above: Performed By: #### L 100.0100, L501.4021, L500.2500 #### [facility] [address] [place], [address] Platelet mean volume (Bld) [Entitic vol] 9.1 fL Normal 6.2-12.0 [facility] Comment on above: Performed By: #### L 100.0100, L501.4021, L500.2500 #### [facility] [address] [place], [address] Platelets (Bld) [#/Vol] 313 10*3/uL Normal 150-450 [facility] Comment on above: Performed By: #### L 100.0100, L501.4021, L500.2500 #### [facility] [address] [place], [address] RBC (Bld) [#/Vol] 3.88 10*6/uL Low 4.2-5.4 [facility] Comment on above: Performed By: #### L 100.0100, L501.4021, L500.2500 #### [facility] [address] [place], [address] RDW SD 42.6 fl Normal 35.1-43.9 [facility] Comment on above: Performed By: #### L 100.0100, L501.4021, L500.2500 #### [facility] [address] [place], [address] WBC (Bld) [#/Vol] 4.6 10*3/uL Normal 4.4-11.0 [facility] Comment on above: Performed By: #### L 100.0100, L501.4021, L500.2500 #### [facility] [address] [place], [address] Erythrocyte distribution wid th ratioOrdered By: Es Villarreal on 01-04-2025 Erythrocyte distribution width (RBC) [Ratio] 13.8 % 11.6-14.6 [facility] Erythrocyte distribution wid th standard deviationOrdered By: Es Villarreal on 01-04-2025 Erythrocyte distribution width (RBC) [Ratio] 42.6 fl 35.1-43.9 [facility] Hematocrit Auto (Bld) [Volum e fraction]Ordered By: Es Villarreal on 01-04-2025 Hematocrit (Bld) [Volume fraction] 33.1 % Low 37-47 [facility] Hemoglobin measurementOrdere d By: Es Villarreal on 01-04-2025 Hemoglobin (Bld) [Mass/Vol] 11.3 g/dL Low 12.0-15.0 [facility] Iron measurement (mass/mass) Ordered By: Es Villarreal on 01-04-2025 Iron (Unsp spec) [Mass/Mass] 35 ug/dL Low 50-170 [facility] Iron+Iron Binding Capacityon 01-04-2025 Iron [Mass/Vol] 35 ug/dL Low 50-170 [facility] Comment on above: Performed By: #### L 100.0100, L501.4021, L500.2500 #### [facility] [address] [place], [address] IRON SATURATION 10.0 Low 13-59 [facility] Comment on above: Performed By: #### L 100.0100, L501.4021, L500.2500 #### [facility] [address] [place], [address] TIBC 335 ug/dL Normal 250-450 [facility] Comment on above: Performed By: #### L 100.0100, L501.4021, L500.2500 #### [facility] [address] [place], [address] UIBC 300 ug/dL Normal 228-428 [facility] Comment on above: Performed By: #### L 100.0100, L501.4021, L500.2500 #### [facility] [address] [place], [address] MCV (mean corpuscular volume ) determinationOrdered By: Es Villarreal on 01-04-2025 MCV (RBC) [Entitic vol] 85.3 fL 81-99 [facility] Mean corpuscular hemoglobin (MCH) determinationOrdered By: Es Villarreal on 01-04-2025 MCH (RBC) [Entitic mass] 29.1 pg 27.0-32.0 [facility] Mean corpuscular hemoglobin concentration (MCHC) determinationOrdered By: Es Villarreal on 01-04-2025 MCHC (RBC) [Mass/Vol] 34.1 g/dL 32-36 [facility] Mean platelet volume determi nationOrdered By: Es Villarreal on 01-04-2025 Platelet mean volume (Bld) [Entitic vol] 9.1 fL 6.2-12.0 [facility] No Panel InformationOrdered By: Es Villarreal on 01-04-2025 Unsaturated Iron Binding Capacity 300 ug/dL 228-428 [facility] Platelet countOrdered By: Andrea Villarreal on 01-04-2025 Platelets (Bld) [#/Vol] 313 10*3/uL 150-450 [facility] RBC Auto (Bld) [#/Vol]Ordere d By: Es Villarreal on 01-04-2025 RBC (Bld) [#/Vol] 3.88 10*6/uL Low 4.2-5.4 [facility] Serum or plasma iron saturat ion measurement (mass fraction)Ordered By: Es Villarreal on 01-04-2025 Iron saturation [Mass fraction] 10.0 % Low 13-59 [facility] White blood cell (WBC) count Ordered By: Es Villarreal on 01-04-2025 WBC (Bld) [#/Vol] 4.6 10*3/uL 4.4-11.0 [facility] [id number] 12-24-2024 [id number] Pt would like to kno w if she could have her A1C rechecked. I let her know you would be out until 12-31. Please advise. Thank you! [facility] 36on 12-24-2024 36 Please let the pt kn ow A1C is ordered Thank you [facility] Office Visiton 12-19-2024 Follow-up visit [id number] Helen Aparicio 1990 F Date Provider Department Center 12/19/2024 CORAL [facility]ADLEY [facility] None Family History Problem Relation [...] Grandfather Paternal Grandmother Maternal Grandfather Level of Service:22041 NC OFFICE/OUTPATIENT ESTABLISHED MOD MDM 30 MIN Reason for Visit and Comments: Weight Loss [653881] - NSURG #14 [facility] Progress Noteon 12-19-2024 Progress Note HPI, PHYSICAL EXAMIN ATION & PLAN HPI: Patient here today for follow up for non-surgical weight loss management Weight trend since last visit: lost 2 lbs over 1 m stable weight regain after stopping ozempic This patient's excess weight is causing the following co-morbid conditions at this time:Other IR Physical Examination: Height 5' 2" (1.575 m), weight 169 lb 9.6 oz (76.9 kg). Blood pressure 113/75, pulse 80, height 5' 2" (1.575 m), weight 169 lb 9.6 oz [...] was performed.Clinical documentation is updated and completed. [facility] Progress Note [facility] MEDICAL WEIGHT LOSS MANAGEMENT PROGRAM ROOMING NOTE: FOLLOW UP VISIT Patient: Dari Aparicio Date of : 1990 Service Date: 12/19/2024 Patient History/Assessment Summary: The patient is a pleasant 34 y.o. year old female, who stands Height: 5' 2" (157.5 cm) tall with a weight of Weight: 169 lb 9.6 oz (76.9 kg) pounds, resulting in a BMI of Body mass index is 31.02 kg/m?. kg/m2. She is here for follow-up for medical treatment of Obesity Patient has the following question(s): none Pre Program Weight Metrics (Epic) (Surgical Wt Loss Management- baseline) This Visit Non-Surgical Subsequent Eval Date: 12/19/24 Height: 5' 2" (157.5 cm) Weight: 169 lb 9.6 oz [...] home O2 Completed by: Skyler Nichols MA Normal [facility] XR FLUORO GUIDANCE FOR THERA PY INJECTIONon 12-13-2024 XR FLUORO GUIDANCE FOR THERAPY INJECTION ORIGINAL Images acquired, not reported on this accession number. Normal [facility] Genital Culture Comprehensiv lloyd 12-07-2024 VAC Reason for Exam: vag inal odor Normal vaginal tasha isolated. No yeast, Gardnerella, Neisseria or beta-hemolytic Streptococcus isolated. Normal [facility] Comment on above: Performed By: #### L 100.0100, L501.4021, L500.2500 #### [facility] [address] [place], [address] Chlamydia/GC MARSHA aptimaon CHLAMY,NUC ACID Negative Normal Negative [facility] Comment on above: Performed By: #### L 100.0100, L501.4021, L500.2500 #### [facility] [address] [place], [address] GC BY NUC ACID Negative Normal Negative [facility] Comment on above: Result Comment: Perf ormed at: =G - [facility] [address] [facility] [place] [address] Ger[facility] Psychiatrist: Jana Roberson MD, Phone: [phone] Performed By: #### L 100.0100, L501.4021, L500.2500 #### [facility] [address] [place], [place], [address] Chlamydia trachomatis rRNA d etection by probe and target amplification methodOrdered By: Afsaneh Snow on 12-03-2024 C. trachomatis rRNA MARSHA+probe Ql (Unsp spec) Negative Negative [facility] Genital cultureOrdered By: Nyla Snow on 12-03-2024 Source specific culture Neisseria or beta-hemolytic Streptococcus isolated. [facility] Gram Stainon 12-03-2024 GS Reason for Exam: vag inal odor Gram Stain 4+ Gram positive rods No Gram negative diplococci No White Blood Cells Score = 0 Interpretation: 0-3 Normal, 4-6 Intermediate, 7-10 Positive BV Normal [facility] Comment on above: Performed By: #### L 100.0100, L501.4021, L500.2500 #### [facility] [address] [place], [place], [address] Gram stainOrdered By: Afsaneh Snow on 12-03-2024 Microscopic observation Gram stain Nom (Unsp spec) [facility] Neisseria gonorrhoeae nuclei c acid detection by amplified probe techniqueOrdered By: Afsaneh Snow on 12-03-2024 N. gonorrhoeae DNA MARSHA+probe Ql (Unsp spec) Negative Negative [facility] Comment on above: Performed at: =G - [facility], [place] [address] Director: Jana Roberson MD, Phone: [phone] No Panel InformationOrdered By: Afsaneh Snow on 12-03-2024 POC Trichomonas (Rapid) Negative [facility] POC Bacterial Vaginitis (Rapid) Negative [facility] Color Television Console Monitor Office Visit Reporton 12-03-2024 Color Television Console Monitor Office Visit Report [facility] [address] [place] [address], [address] [place] [address] OFFICE VISIT Date of Service: 12/03/24 MR#: [id number] Acct: [id number] Name: DARI APARICIO Rep #: [id number] : 1990 Provider: PERLITA doty Age/Sex: 34/F Location: [facility] Status: Signed Intake Vital Signs 10/08/24 09:07 12/03/24 14:51 12/03/24 15:01 Height 5 ft 1 in 5 ft 1 in 5 ft 1 in Weight: 171 lb 6 oz BMI 32.3 BP 110/70 Intake Visit Reasons: Possible BV Chief Complaint: poss. BV 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: No Is patient in pain?: No [...] menopausal: No Patient : No : No [facility] Medical History Leg cramping Delayed gastric emptying [...] Kika 39 live - full term Female [facility] Ronaleld 11/20/18 Eliezer spontaneous Female 02/12/20 Mo 39 live - full term 7lbs 15oz Male spinal WC (more content not included)... [facility] [id number] 11-26-2024 [id number] The medication is se nt to the pharmacy Thank you [facility] [phone] Pt unable to use medication. The pens were frozen when she attempted to administer. Asking for refill. Pended. Thank you! [facility] Office Visiton 11-07-2024 Follow-up visit [id number] Helen Aparicio 1990 F Date Provider Department Center 11/07/2024 [address] None Family History Problem Relation [...] Grandfather Paternal Grandmother Maternal Grandfather Level of Service:12417 NC OFFICE/OUTPATIENT ESTABLISHED MOD MDM 30 MIN Reason for Visit and Comments: Weight Loss [836649] - NSURG #13 [facility] Progress Noteon 11-07-2024 Progress Note [facility]ARE [facility] MEDICAL WEIGHT LOSS MANAGEMENT PROGRAM ROOMING NOTE: FOLLOW UP VISIT Patient: Dari Aparicio Date of : 1990 Service Date: 11/07/2024 Patient History/Assessment Summary: The patient is a pleasant 34 y.o. year old female, who stands Height: 5' 2" (157.5 cm) tall with a weight of Weight: 171 lb 3.2 oz (77.7 kg) pounds, resulting in a BMI of Body mass index is 31.31 kg/m?. kg/m2. She is here for follow-up for medical treatment of Obesity Patient has the following question(s): none Pre Program Weight Metrics (Epic) (Surgical Wt Loss Management- baseline) This Visit Non-Surgical Subsequent Eval Date: 11/07/24 Height: 5' 2" (157.5 cm) Weight: 171 lb 3.2 oz [...] home O2 Completed by: Skyler Nichols MA [facility] Progress Note HPI, PHYSICAL EXAMIN ATION & PLAN HPI: Patient here today for follow up for non-surgical weight loss management Weight trend since last visit: gain 5 lbs over 1 m stable weight regain after stopping ozempic This patient's excess weight is causing the following co-morbid conditions at this time:Other IR Physical Examination: Blood pressure 109/75, pulse 82, height 5' 2" (1.575 m), weight 171 lb 3.2 oz [...] continue weight loss program Stable Working with [facility] on her current symptoms [...] was performed.Clinical documentation is updated and completed. [facility] [id number] 10-17-2024 [id number] Losing inches is the great sign that medication is working . Persistence is the mcclellan for weight loss journey. Trulicity is refilled Thank you [facility] [phone] Dr Pierre, Please advise [facility] 36on 10-17-2024 36 Trulicity is sent to the pharmacy Please let the pt know That changing body composition ( losing inches) is a great sign of the medication work. Thank you [facility] 36 Refill request for Trulicity pended. Next OV 6-18. Thank you! [facility] Orthopedic Visit Reporton Orthopedic Visit Report [facility] [address] [place], [place] [address] OFFICE VISIT Date of Service: 10/09/24 MR#: [id number] Acct: [id number] Name: DARI APARICIO Rep #: [id number] : 1990 Provider: CAROLYN Garza Age/Sex: 34/F Location: [facility] Status: Signed Intake Vital Signs 09/25/24 08:32 [...] decisions made by me, CAROLYN Garza 10/09/24 08. Part of today???s visit was documented by Michelle SAMPSON, acting as scribe. DARI APARICIO is a [...] patient continues to take ibuprofen and Tylenol [id number]-nvh-[id number] without much benefit. Patient says that she [...] it wa (more content not included)... Normal [facility] Magnetic resonance imaging r eportOrdered By: James Cortez on 10-08-2024 Study report [facility] Imaging Services [address] [place] [address] Spine Lumbar (Routine) MR#: [id number] Acct: [id number] Name: DARI APARICIO Rep #: [id number] : 1990 F 34 From: James Cortez MD PCP: Dr. Steph Camacho MD Status: REG CLI Study:Spine Lumbar (Routine) Date of Exam: 10/06/24 Exam# [id number] Ordering Dr: Alberto Kumar PROCEDURE: SPINE LUMBAR (ROUTINE) 10/06/2024 REASON [...] of pelvic free fluid noted. Reading Location: [facility] CC: CAROLYN Garza; Dr. Steph Camacho MD ~ Pumper Helper: Signed [facility] Spine Lumbar (Routine)on Spine Lumbar (Routine) [facility] Imaging Services [address] [place] [address] Spine Lumbar (Routine) MR#: [id number] Acct: [id number] Name: DARI APARICIO Rep #: [id number] : 1990 F 34 From: James Cortez MD PCP: Dr. Steph Camacho MD Status: REG CLI Study: Spine Lumbar (Routine) Date of Exam: 10/06/24 Exam# [id number] Ordering Dr: Alisson Kumar PROCEDURE: SPINE LUMBAR [...] of pelvic free fluid noted. Reading Location: [id number] CC: CAROLYN Garza; Dr. Steph Camacho MD Pumper Helper: Signed [facility] [id number] 09-25-2024 [id number] Please let the pt kn ow Trulicity 1.5 mg is sent to the pharmacy Hai, Please offer an yaya for the pt in October Thank you [facility] [phone] Dr Pierre please advise [facility] [phone] Please let the pt kn ow Trulicity can be increased to 1.5 mg if she wants and she will need an yaya in October Please let me know Thank you [facility] 29on 09-25-2024 29 Addended by: CORAL PIERRE on: 09/25/2024 10:35 AM Modules accepted: Orders [facility] 36on 09-25-2024 36 Patient has been alivia eduled for appointment with in October. [facility] Color Television Console Monitor Office Visit Reporton 09-25-2024 Color Television Console Monitor Office Visit Report [facility] [address], [address] [place] [address] OFFICE VISIT Date of Service: 09/25/24 MR#: [id number] Acct: [id number] Name: DARI APARICIO Rep #: [id number] : 1990 Provider: Dr. 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 Normal [facility] [id number] 09-24-[phone] Pierre please advise Normal [facility] Vitamin D,25 Hydroxyon 09-19 Vitamin D 25-OH 26.5 ng/mL Low 30-100 [facility] Comment on above: Result Comment: Jody min D Status Deficiency: <20 ng/mL (50nmol/L) Insufficiency: 20-30 ng/mL (50-75 nmol/L) Sufficiency: 30-100 ng/mL (75-250 nmol/L) Toxicity: >100 ng/mL (>250 nmol/L) Performed By: #### L 506.1001 #### [facility] [address] [place], [address] Internal Medicine Office Vis itokathleen 09-16-2024 Internal Medicine Office Visit [facility] [address] [place] [address] [place] [address] OFFICE VISIT Date of Service: 09/17/24 MR#: [id number] Acct: [id number] Name: DARI APARICIO Rep #: [id number] : 1990 Provider: Dr. 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 S (more content not included)... [facility] [id number] 09-07-2024 [id number] PA Denied for Wegovy PA Approved for Trulicity [facility] [id number] 09-06-2024 [id number] PA sent for Trulicit y and Wegovy [facility] [phone] Please do pa for lilo licity last A1C 5.1 and wegovy and let the pt know Thank you [facility] [phone] Dr Pierre please advise [facility] L/S Spine Bending Flex/Oxford 09-03-2024 L/S Spine Bending Flex/Ext [facility] Imaging Services [address] [place] [address] L/S Spine Bending Flex/Ext MR#: [id number] Acct: [id number] Name: DARI APARICIO Rep #: [id number] : 1990 F 34 From: James Cortez MD PCP: Dr. Steph Camacho MD Status: DEP AMB Study: L/S Spine Bending Flex/Ext Date of Exam: 09/03 Exam# [id number] Ordering Dr: Alisson Kumar PROCEDURE: L/S SPINE [...] extension views appear within limits. Reading Location: [id number] CC: CAROLYN Garza; Dr. Steph Camacho MD Pumper Helper: Signed Normal [facility] Orthopedic Visit Reporton Orthopedic Visit Report [facility] [address] [place] [address] OFFICE VISIT Date of Service: 09/03/24 MR#: [id number] Acct: [id number] Name: DARI APARICIO Rep #: [id number] : 1990 Provider: CAROLYN Garza Age/Sex: 34/F Location: [facility] Status: Signed Intake Vital Signs 08/22/24 14:49 [...] decisions made by me, CAROLYN Garza 09/03/24 09. Part of today???s visit was documented by [...] No pain (more content not included)... Normal [facility] [id number] 08-31-2024 [id number] Please clarify zepbo und prefilled syringe or single use vial. Thank you Normal [facility] [phone] PA denied for Contra ve, Can she try Zepbound please? Normal [facility] [phone] PA denied for Contra ve. Drug is Excluded from plan. Patient aware [facility] [id number] [id number] Please pa isabelle a nd let the pt know If there is no coverage advise to look into Shai self pay pharmacy Thank you [facility] [phone] PA started for Contrave [facility] [phone] Please contact the p t and ask what pharmacy she prefers to use for contrave Thank you [facility] [phone] DR Pierre, please advise [facility] [id number] 08-28-2024 [id number] Please let the pt kn ow that she can take zepbound for weight loss without DM type 2. Health insurance company usually will not cover mounjaro without DM. The pt does not have DM type 2. Zepbound and mounjaro contains active ingredient tirzepatide. Thank you [facility] [phone] HgB A1C 5.1 scanned into media mgr. Please advise. Thank you! [facility] Hemoglobin A1con 08-24-2024 HbA1c (Bld) [Mass fraction] 5.1 % Low <=5.6 [facility] Comment on above: Performed By: #### L 501.9985 ####[facility] [address] [facility] [place], [place], [address] Hemoglobin A1c percentageon 08-24-2024 HbA1c (Bld) [Mass fraction] 5.1 % Low >5.7 [facility] Lumbar Spine 2 or 3 Viewson 08-24-2024 Lumbar Spine 2 or 3 Views [facility] Imaging Services [address] [place], [place] [address] Lumbar Spine 2 or 3 Views MR#: [id number] Acct: [id number] Name: DARI APARICIO Rep #: [id number] : 1990 F 34 From: James Cortez MD PCP: Dr. Steph Camacho MD Status: REG CLI Study: Lumbar Spine 2 or 3 Views Date of Exam: Exam# [id number] Ordering Dr: Altaf Nascimento PROCEDURE: LUMBAR SPINE 2 OR 3 VIEWS 08/24/2024 REASON FOR EXAM: CHRONIC BACK PAIN, PAIN DOWN BOTH LEGS TECHNIQUE: 2 view(s) of the lumbar spine COMPARISON: None available FINDINGS: No fracture or malalignment. The disc spaces appear within limits. SI joints appear within limits as imaged. RAD/Lumbar Spine 2 or 3 Views IMPRESSION: Study appears with Reading Location: [id number] CC: Dr. Steph Camacho MD; CAROLYN Anton Pumper Helper: Signed Normal [facility] Internal Medicine Office Vis ito 08-22-2024 Internal Medicine Office Visit [facility] [address] [place] [address] [place] [address] OFFICE VISIT Date of Service: 08/22/24 MR#: [id number] Acct: [id number] Name: DARI APARICIO Rep #: [id number] : 1990 Provider: CAROLYN Anton Age/Sex: 34/F Location: [facility] Status: Signed Intake Vital Signs 07/10/24 12:11 [...] her sciatic nerve pain. was seen at [facility] for this and was told to request an MRI of the back [facility] Medical History (Updated 08/22/24 @ 15:24 by [...] it starts in the back and it "radiates" into the legs (does not cross the knees) and it is sharp and throbbing pains. She is currently seeing chiropractor and has done this on and off for many years. She states that she does take Tylenol and/or Ibuprofen and has also done some muscle relaxers previously. She states that the NSAIDS help but the muscle relaxer does (more content not included)... Normal [facility] XR CHEST 2 VIEWSon XR CHEST 2 VIEWS ORIGINAL EXAMINATION: TWO [...] 08/01/2024 10:25:16 AM Ordering Provider: RENEA CASAREZ [facility] Laboratory - Microbiology an d Antimicrobial susceptibilityOrdered By: Daniel Tapia on 07-28-2024 SARS-CoV-2 (COVID-19) RNA MARSHA+probe Ql (Unsp spec) Not detected [facility] No Panel InformationOrdered By: Daniel Tapia on 07-28-2024 Influenza Types A,B Rapid (Clinic) Detected [facility] Urgent Care Visit Reporton 0 07-28-2024 Urgent Care Visit Report [facility] [address], [address] [place] [address] OFFICE VISIT Date of Service: 07/28/24 MR#: [id number] Acct: [id number] Name: DARI APARICIO Rep #: [id number] : 1990 Provider: CAROLYN Lyle Age/Sex: 34/F Location: [facility] Status: Signed Intake Vital Signs 07/10/24 12:11 07/28/24 10:25 Height 5 ft 1 in BP 112/76 Blood Pressure Location Lt brachial Position Sitting Respiration 14 Pulse 82 Pulse Source NIBP Temp 98.2 F Temp Source Oral Pulse Oximetry (%) 98 Oxygen Delivery Method room air Intake Visit Reasons: CONCERN FOR SINUS INFECTION Chief Complaint: cough, DASH, ear pain, mucus, chills/sweats 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: No Is patient in pain?: Yes [...] DASH, ear pain, mucus, chills/sweats Details: DARI MARKUS, is a 34 F who presents to the office today for evaluation of "sinus infection". Patient states that she is pretty sure I have a sinus infection". Patient notes that her symptoms started approximately [...] throat Resp Respi (more content not included)... [facility] 07-24-2024 36 Name of caller: Archana perea Contact phone number: [phone] Relationship to Patient: patient Provider: soonest available Practice: [facility] Chief Complaint/Reason for Call: patient is calling in checking on the status of their referral that they state was faxed over twice from [facility]. Patient would like a callback please advise and thank you Best time of day caller can be reached: any Patient advised that office/PCP has 24-48 business hours to return their call: Yes [facility] 07-23-2024 36 Name of Caller: Archana perea Contact Reason for Appointment: pt states a ref was sent last [facility] Office Name: Plastics Medication Refills need, if any: NA Medication Name: NA [facility] [id number] 07-16-2024 [id number] I wish it had been different Please ask the pt to stop naltrexone. As for ozempic, it is a medication for DM type2. We need to establish the diagnosis. Hemoglobin A1C was ordered. It can be done by the pt at her convenience. Thank you [facility] [phone] See message. FYI. [facility] 07-16-2024 36 Spoke with pt she is currently at a BMI of 31 informed her that she needs to be at a BMI of 29 or below to schedule a consult. She confirmed understanding. [facility] 36 Name of Caller: Archana perea Contact Reason for Appointment: Patient is requesting to schedule a consult for a tummy tuck. Please be advised Office Name: [facility] Plastics Residency Clinic [facility] Office Visiton 07-13-2024 Follow-up visit [id number] Helen Aparicio Kathleen 1990 F Date Provider Department Center 07/13/2024 [id number]-CDUPCCORAL [facility] None Family History Problem Relation [...] Grandfather Paternal Grandmother Maternal Grandfather Level of Service:08854 NC OFFICE/OUTPATIENT ESTABLISHED MOD MDM 30 MIN Reason for Visit and Comments: Weight Management [645] - Nsurg 12 [facility] Progress Noteon 07-13-2024 Progress Note [facility]IATR[facility] CARE RONAN Douglas NON-SURGICAL WEIGHT LOSS MANAGEMENT PROGRAM ROOMING NOTE: FOLLOW UP VISIT Patient: Dari Aparicio Date of : 1990 Service Date: 07/13/2024 Patient History/Assessment Summary: The patient is a pleasant 34 y.o. year old female, who stands Height: 5' 2" (157.5 cm) tall with a weight of Weight: 166 lb (75.3 kg) pounds, resulting in a BMI of Body mass index is 30.36 kg/m?. kg/m2. She is here for follow-up for non-surgical treatment of over weight. Patient has the following question(s): none Pre Program Weight Metrics (Epic) (Surgical Wt Loss Management- baseline) This Visit Non-Surgical Subsequent Eval Date: 07/13/24 Height: 5' 2" (157.5 cm) Weight: 166 lb (75.3 kg) [...] home O2 Completed by: Kiera Hinds MA [facility] Progress Note HPI, PHYSICAL EXAMIN ATION & PLAN HPI: Patient here today for follow up for non-surgical weight loss management Weight trend since last visit: lost 3 lbs over 1 m stable weight regain after stopping ozempic This patient's excess weight is causing the following co-morbid conditions at this time:Other IR Physical Examination: Blood pressure 119/73, pulse 87, height 5' 2" (1.575 m), weight 166 lb (75.3 kg). [...] continue weight loss program Stable Working with [facility] GI on her current symptoms [...] performed.Clinical documentation is updated and completed. Normal [facility] Absolute lymphocyte countOrd ered By: Gonzalo Blanco on 07-10-2024 Lymphocytes Auto (Unsp spec) [#/Vol] 2.29 10*3/uL 0.83-4.51 [facility] Absolute neutrophil countOrd ered By: Gonzalo Blanco on 07-10-2024 Neutrophils (Bld) [#/Vol] 2.8 10*3/uL 2.0-7.7 [facility] Automated blood erythrocyte countOrdered By: Gonzalo Blanco on 07-10-2024 RBC (Bld) [#/Vol] 4.06 10*6/uL Low 4.2-5.4 [facility] Comment on above: Performed By: #### L 100.0100, L500.2500 #### [facility] [address] [place], [address] Automated blood hematocrit ( percentage)Ordered By: Gonzalo Blanco on 07-10-2024 Hematocrit (Bld) [Volume fraction] 34.1 % Low 37-47 [facility] Comment on above: Performed By: #### L 100.0100, L500.2500 #### [facility] [address] [place], [address] Automated lymphocyte count a s percentage of total leukocytesOrdered By: Gonzalo Blanco on 07-10-2024 Lymphocytes/100 WBC (Bld) 40.1 % Normal 19-41 [facility] Comment on above: Performed By: #### L 100.0100, L500.2500 #### [facility] [address] [place], [address] Lymphocytes/100 WBC Auto (Unsp spec) 40.1 % 19-41 [facility] Basic Metabolic Profile (BMP )on 07-10-2024 BUN/CRE 15.2 RATIO Normal 10-20 [facility] Comment on above: Performed By: #### L 100.0100, L500.2500 #### [facility] [address] [place], [address] CA,Total 9.3 mg/dL Normal 8.5-10.1 [facility] Comment on above: Performed By: #### L 100.0100, L500.2500 #### [facility] [address] [place], [address] ECRCL 124.33 ml/min Normal [facility] Comment on above: Performed By: #### L 100.0100, L500.2500 #### [facility] [address] [place], [address] EST GFR - AA 149 mL/min Normal >60 [facility] Comment on above: Result Comment: Afri can Cuban GFR Calc Performed By: #### L 100.0100, L500.2500 #### [facility] [address] [place], [address] GAP 9 Normal 5-15 [facility] Comment on above: Performed By: #### L 100.0100, L500.2500 #### [facility] [address] [place], [address] Basophil percentageOrdered B y: Gonzalo Blanco on 07-10-2024 Basophils/100 WBC (Bld) 0.9 % Normal 0-1 [facility] Comment on above: Performed By: #### L 100.0100, L500.2500 #### [facility] [address] [place], [address] Blood urea nitrogen (BUN)/cr eatinine ratioOrdered By: Gonzalo Blanco on 07-10-2024 Urea nitrogen/Creatinine [Mass ratio] 15.2 mg/mg 10-20 [facility] CBC W/Diff, Automatedon - Absolute Lymph 2.29 X10 3/uL Normal 0.83-4.51 [facility] Comment on above: Performed By: #### L 100.0100, L500.2500 #### [facility] [address] [place], [address] Absolute Neut 2.8 X10 3/uL Normal 2.0-7.7 [facility] Comment on above: Performed By: #### L 100.0100, L500.2500 #### [facility] [address] [place], [address] IG% 0.400 Normal 0.0-0.9 [facility] Comment on above: Result Comment: IG% - Immature Granulocytes (promyelocytes, myelocytes and metamyelocytes) > 1% indicates that a LEFT SHIFT is Present. Performed By: #### L 100.0100, L500.2500 #### [facility] [address] [place], [address] Nucleated RBC (Bld) [#/Vol] 0 10*3/uL Normal 0-5 [facility] Comment on above: Performed By: #### L 100.0100, L500.2500 #### [facility] [address] [place], [address] RDW SD 37.7 fl Normal 35.1-43.9 [facility] Comment on above: Performed By: #### L 100.0100, L500.2500 #### [facility] [address] [place], [address] CNOVon 07-10-2024 CNOV Office Visit (UCWSTR ) -- DARI APARICIO ([id number]) 1990 F Date Time Provider Department 07/10/24 12:30 PM VANDANA MIRELES During your visit today, we recorded the following information about you: Temperature Pulse Respiration Weight 97.7 degrees 96/minute 16/minute 76.4 kg Vandana Mireles APRN.SOFT MUD MOLDER 07/10/2024 12:01 PM Signed Patient came in [...] was sleep Date Reviewed: 07/10/2024 Reviewed by: Aquiles Alba MA - Fully Assessed Reason for [...] Encounter Status:Closed by VANDANA MIRELES on 07/10/24 [facility] CNPDiann 07-10-2024 CNPN Telephone (INTMWS) -- DARI APARICIO ([id number]) 1990 F Date Time Provider Department 07/10/24 [...] UC can refill her albuterol inhaler? [facility] [place]. Patient does not have a pcp. Please advise pt. Prudencio Ortiz PA 07/10/2024 9:42 AM Signed Inhaler sent to pharmacy. Aquiles Alba MA 07/10/2024 12:03 PM Signed Patient came to urgent care today, sent to ED. Aquiles Alba MA Allergies As of Date: 07/10/2024 Noted Allergy Reaction MITE EXTRACT 07/13/2018 14 - Other: See Comments CHANTIX (VARENICLINE) 12/08/2009 14 - Other: See Comments Comments: Vomiting, diarrhea, bad dreams, restlessness, insomnia NAPROXEN 08/21/2010 14 - Other: See Comments Comments: Broke out in sweats, nightmares and all did was sleep Date Reviewed: 07/10/2024 Reviewed by: Aquiles Alba MA - Fully Assessed Reason for [...] for wheezing/shortness of breath. Encounter Status:Closed by AQUILES ALBA on 07/10/24 Normal [facility] Carbon dioxide measurementOr dered By: Gonzalo Blanco on 07-10-2024 CO2 [Moles/Vol] 28.0 mmol/L Normal 21.0-32.0 [facility] Comment on above: Performed By: #### L 100.0100, L500.2500 #### [facility] [address] [facility] [place], [place], [address] Chest PA and Lateralon 07-10 Chest PA and Lateral [facility] Imaging Services [address] [place], [place] [address] Chest PA and Lateral MR#: [id number] Acct: [id number] Name: DARI APARICIO Rep #: [id number] : 1990 F 34 From: Chuck evans MD PCP: Care Physician,No Primary Status: PRE ER Study: Chest PA and Lateral Date of Exam: 07/10/24 Exam# [id number] Ordering Dr: Gonzalo Blanco MD PROCEDURE: CHEST [...] and Lateral IMPRESSION: NEGATIVE CHEST Reading Location: [facility] CC: Dr. Gonzalo Blanco MD; No Primary Care Physician Pumper Helper: Signed Normal [facility] Chloride measurementOrdered By: Gonzalo Blanco on 07-10-2024 Chloride [Moles/Vol] 105 mmol/L Normal 98-107 [facility] Comment on above: Performed By: #### L 100.0100, L500.2500 #### [facility] [address] [place], [address] Emergency Department Summary on 07-10-2024 Emergency Department Summary [facility] Medical Records Department [address] [place] [address] Emergency Department Summary 07/10/24 MR#: [id number] Acct: [id number] Name: DARI APARICIO Rep #: [id number] : 1990 34 From: Gonzalo Blanco MD PCP: Care Physician,No Primary Status:REG ER Location: ED HPI History of Present Illness Chief Complaint: Dizziness Informant: patient Onset/Context/Timing Onset: Days Context: Gradual Onset Timing: Continuous Current Severity: Mild Maximum Severity: Mild Narrative Narrative: 34-year-old female history of PTSD. Has had URI symptoms with a cough. She was at the [facility] urgent care on Tuesday. They diagnosed with [...] COVID test. Prior similar symptoms: Yes Recent Illness/Hospitalization: No PFSH PFSH Medical History Anxiety Arthritis [...] or hematu (more content not included)... Normal [facility] Eosinophil percentageOrdered By: Gonzalo Blanco on 07-10-2024 Eosinophils/100 WBC (Bld) 3.0 % Normal 0-5 [facility] Comment on above: Performed By: #### L 100.0100, L500.2500 #### [facility] [address] [facility] [place], [place], [address] Erythrocyte distribution wid th (RBC) [Ratio]Ordered By: Gonzalo Blanco on 07-10-2024 Erythrocyte distribution width (RBC) [Entitic vol] 37.7 fL 35.1-43.9 [facility] Erythrocyte distribution wid th ratioOrdered By: Gonzalo Blanco on 07-10-2024 Erythrocyte distribution width (RBC) [Ratio] 12.3 % Normal 11.6-14.6 [facility] Comment on above: Performed By: #### L 100.0100, L500.2500 #### [facility] [address] [place], [place], [address] Erythrocyte distribution wid th standard deviationOrdered By: Gonzalo Blanco on 07-10-2024 Erythrocyte distribution width (RBC) [Ratio] 37.7 fl 35.1-43.9 [facility] Estimated glomerular filtrat ion rate (GFR) AmericanOrdered By: Gonzalo Blanco on 07-10-2024 Estimated GFR (MDRD) Amer 149 mL/min >60 [facility] Comment on above: GFR Calc Estimation of creatinine rodriguez aranceOrdered By: Gonzalo Blanco on 07-10-2024 Estimated Creatinine Clearance Calc 124.33 ml/min [facility] Glomerular filtration rate ( GFR) estimationOrdered By: Gonzalo Blanco on 07-10-2024 GFR/1.73 sq M.predicted among non-blacks MDRD (S/P/Bld) [Vol rate/Area] 123 mL/min/{1.73_m2} Normal >60 [facility] Comment on above: Non- GFR Calc Result Comment: Non- GFR Calc Performed By: #### L 100.0100, L500.2500 #### [facility] [address] [place], [address] Estimated GFR (MDRD) Non-Af Amer 123 mL/min >60 [facility] Comment on above: Non- GFR Calc Glucose measurementOrdered B y: Gonzalo Blanco on 07-10-2024 Glucose [Mass/Vol] 93 mg/dL Normal 74-106 [facility] Comment on above: Performed By: #### L 100.0100, L500.2500 #### [facility] [address] [place], [address] Hemoglobin measurementOrdere d By: Gonzalo Blanco on 07-10-2024 Hemoglobin (Bld) [Mass/Vol] 11.5 g/dL Low 12.0-15.0 [facility] Comment on above: Performed By: #### L 100.0100, L500.2500 #### [facility] [address] [place], [address] Immature granulocytes/100 WB C Auto (Bld)Ordered By: Gonzalo Blanco on 07-10-2024 Immature granulocytes/100 WBC (Bld) 0.400 % 0.0-0.9 [facility] Comment on above: IG% - Immature Granu locytes (promyelocytes, myelocytes and metamyelocytes) > 1% indicates that a LEFT SHIFT is Present. Influenza virus A and B and SARS-CoV-2 (COVID-19) and Respiratory syncytial virus RNAOrdered By: Gonzalo Blanco on 07-10-2024 SARS-CoV-2 (COVID-19) RNA MARSHA+probe Ql (Unsp spec) [facility] Lymphocytes Auto (Unsp spec) [#/Vol]Ordered By: Gonzalo Blanco on 07-10-2024 Lymphocytes (Bld) [#/Vol] 2.29 10*3/uL 0.83-4.51 [facility] M100.678on 07-10-2024 M100.678 SARS-CoV-2 (COVID 19 ) Negative INFLUENZA A Negative INFLUENZA B Negative RSV PCR Negative Normal [facility] Comment on above: Performed By: #### M 100.678 ####[facility] [address] [place], [address] MCV (mean corpuscular volume ) determinationOrdered By: Gonzalo Blanco on 07-10-2024 MCV (RBC) [Entitic vol] 84.0 fL Normal 81-99 [facility] Comment on above: Performed By: #### L 100.0100, L500.2500 #### [facility] [address] [place], [address] Mean corpuscular hemoglobin (MCH) determinationOrdered By: Gonzalo Blanco on 07-10-2024 MCH (RBC) [Entitic mass] 28.3 pg Normal 27.0-32.0 [facility] Comment on above: Performed By: #### L 100.0100, L500.2500 #### [facility] [address] [place], [address] Mean corpuscular hemoglobin concentration (MCHC) determinationOrdered By: Gonzalo Blanco on 07-10-2024 MCHC (RBC) [Mass/Vol] 33.7 g/dL Normal 32-36 [facility] Comment on above: Performed By: #### L 100.0100, L500.2500 #### [facility] [address] [place], [address] Mean platelet volume determi nationOrdered By: Gonzalo Blanco on 07-10-2024 Platelet mean volume (Bld) [Entitic vol] 9.0 fL Normal 6.2-12.0 [facility] Comment on above: Performed By: #### L 100.0100, L500.2500 #### [facility] [address] [place], [address] Monocyte percentageOrdered B y: Gonzalo Blanco on 07-10-2024 Monocytes/100 WBC (Bld) 6.8 % Normal 0-10 [facility] Comment on above: Performed By: #### L 100.0100, L500.2500 #### [facility] [address] [place], [address] Neutrophil percentageOrdered By: Gonzalo Blanco on 07-10-2024 Neutrophils/100 WBC (Bld) 48.8 % Normal 47-70 [facility] Comment on above: Performed By: #### L 100.0100, L500.2500 #### [facility] [address] [place], [address] Nucleated red blood cell per centageOrdered By: Gonzalo Blanco on 07-10-2024 Nucleated RBC/100 WBC (Bld) [Ratio] 0 % 0-5 [facility] Platelet countOrdered By: Andrea Blanco on 07-10-2024 Platelets (Bld) [#/Vol] 400 10*3/uL Normal 150-450 [facility] Comment on above: Performed By: #### L 100.0100, L500.2500 #### [facility] [address] [place], [address] Potassium measurementOrdered By: Gonzalo Blanco on 07-10-2024 Potassium [Moles/Vol] 3.8 mmol/L Normal 3.5-5.1 [facility] Comment on above: Performed By: #### L 100.0100, L500.2500 #### [facility] [address] [place], [address] Serum anion gap measurementO rdered By: Gonzalo Blanco on 07-10-2024 Anion gap [Moles/Vol] 9 mmol/L 5-15 [facility] Serum or plasma calcium miranda urement (mass/volume)Ordered By: Gonzalo Blanco on 07-10-2024 Calcium [Mass/Vol] 9.3 mg/dL 8.5-10.1 [facility] Serum or plasma creatinine m easurement (mass/volume)Ordered By: Gonzalo Blanco on 07-10-2024 Creatinine [Mass/Vol] 0.59 mg/dL Normal 0.55-1.02 [facility] Comment on above: The validity of the calculated GFR & GFRAA in patients over 70 years has not been determined. Clinical correlation is essential. Result Comment: The validity of the calculated GFR GFRAA in patients over 70 years has not been determined. Clinical correlation is essential. Performed By: #### L 100.0100, L500.2500 #### [facility] [address] [place], [address] Serum or plasma urea nitroge n measurement (mass/volume)Ordered By: Gonzalo Blanco on 07-10-2024 Urea nitrogen [Mass/Vol] 9 mg/dL Normal -18 [facility] Comment on above: Performed By: #### L 100.0100, L500.2500 #### [facility] [address] [place], [address] Sodium levelOrdered By: Gonzalo Blanco on 07-10-2024 Sodium [Moles/Vol] 142 mmol/L Normal 136-145 [facility] Comment on above: Performed By: #### L 100.0100, L500.2500 #### [facility] [address] [place], [address] White blood cell (WBC) count Ordered By: Gonzalo Blanco on 07-10-2024 WBC (Bld) [#/Vol] 5.7 10*3/uL Normal 4.4-11.0 [facility] Comment on above: Performed By: #### L 100.0100, L500.2500 #### [facility] [address] [place], [address] [id number] 07-09-2024 [id number] See message. Please advise. Thanks! Normal [facility] CNOVon 07-08-2024 CNOV Office Visit (UCWSTR ) -- DARI APARICIO ([id number]) 1990 F Date Time Provider Department 07/08/24 10:15 AM STEVE CUMMINS [facility] During your visit today, we recorded the following information about you: Temperature Pulse Respiration Blood pressure 98 degrees 89/minute 18/minute 122/72 Weight 76.5 kg Steve Cummins, LIFE ASSURANCE REPRESENTATIVE.SOFT MUD MOLDER 07/08/2024 10:45 AM Signed Subjective Cough Associated [...] ill-appearing. HENT: Mouth/Throat: (more content not included)... [facility] [id number] 07-02-2024 [id number] Please see message a nd advise. Thanks! [facility] [id number] 06-25-2024 [id number] Naltrexone is sent t o the pharmacy Thank you [facility] [phone] Pt would like to try naltrexone. Pended. Thank you! [facility] [phone] Please let the pt kn ow stable mood is important. We can start naltrexone while the pt is on pristiq and when she finds a primary care doctor we can consider contrave. Safety is the mcclellan. Thank you [facility] [phone] Pt no longer has PCP . Please advise. Thank you! [facility] [id number] 06-22-2024 [id number] Contrave might inter act with pristiq Please ask the pt to contact the prescriber of pristiq to clarify if contrave is a good choice. Thank you [facility] [phone] Pt is now inquiring about Contrave. Please advise.Thanks! [facility] [phone] Please ask the pt to about naltrexone that can be used off label for weight loss Thank you [facility] [phone] Please see message a nd advise. Thanks! Normal [facility] [phone] Safety is the most important. Please ask the pt to stop the medication. We can try metformin if the pt wants Thank you [facility] [phone] Dr Pierre please see message and advise. Thank you [facility] [id number] 06-20-2024 [id number] Please ask the pt to contact the doctor who is prescribing pristiq. It will be the correct way ot addressing the question. Thank you [facility] [phone] Please advise. [facility] Office Visiton 06-15-2024 Follow-up visit [id number] Helen Aparicio 1990 F Date Provider Department Center 06/15/2024 [facility] None Family History Problem Relation [...] Grandfather Paternal Grandmother Maternal Grandfather Level of Service:97918 NC OFFICE/OUTPATIENT ESTABLISHED MOD MDM 30 MIN Reason for Visit and Comments: Weight Management [645] - Nsurg 11 [facility] Progress Noteon 06-15-2024 Progress Note HPI, PHYSICAL EXAMIN ATION & PLAN HPI: Patient here today for follow up for non-surgical weight loss management Weight trend since last visit: gain 27 lbs over 6 m stable weight regain after stopping ozempic This patient's excess weight is causing the following co-morbid conditions at this time:Other IR Physical Examination: Blood pressure 96/59, pulse 76, height 5' 2" (1.575 m), weight 169 lb 6.4 oz [...] continue weight loss program Stable Working with [facility] GI on her current symptoms [...] was performed.Clinical documentation is updated and completed. [facility] Progress Note BARIATRIC CARE RONAN Douglas NON-SURGICAL WEIGHT LOSS MANAGEMENT PROGRAM ROOMING NOTE: FOLLOW UP VISIT Patient: Dari Aparicio Date of : 1990 Service Date: 06/15/2024 Patient History/Assessment Summary: The patient is a pleasant 34 y.o. year old female, who stands Height: 5' 2" (157.5 cm) tall with a weight of Weight: 169 lb 6.4 oz (76.8 kg) pounds, resulting in a BMI of Body mass index is 30.98 kg/m?. kg/m2. She is here for follow-up for non-surgical treatment of Over weight Patient has the following question(s): none Pre Program Weight Metrics (Epic) (Surgical Wt Loss Management- baseline) This Visit Non-Surgical Subsequent Eval Date: 06/15/24 Height: 5' 2" (157.5 cm) Weight: 169 lb 6.4 oz [...] home O2 Completed by: Kiera Hinds MA [facility] Gastroenterology Visit Repor ton 05-25-2024 Gastroenterology Visit Report [facility] Gastroenterology [address] [place] [address] OFFICE VISIT Date of Service: 05/25/24 MR#: [id number] Acct: [id number] Name: DARI APARICIO Rep #: [id number] : 1990 Provider: CAROLYN Baltazar Age/Sex: 34/F Location: [facility] Status: Signed Intake Vital Signs 01/31/24 15:05 [...] Reports a burning feeling in her throat "all the time" accompanied with extreme nausea. Reports constipation and diarrhea. Continues Zofran and omeprazole daily. Denies vomiting, and blood in stools. [facility] Medical History Anxiety Arthritis High cholesterol Former [...] wnl, calprotectin wnl, elastase wnl, Ct abd/pelvis 03.27.24; 1. Bilateral nephrolithiasis. No convincing hydronephrosis or ureter stone. Multiple phleboliths in the pelvis. 2. Dominant follicle in the right ovary and slight intrapelvic fluid. 3. Appendectomy. 4. Moderate stool in the proximal half of the colon. No small bowel obstruction. GES; 05.11.24; normal 48 minutes EGD 03.28.24; - Z-line irreg (more content not included)... Normal [facility] Gastric Emptying Studyon Gastric Emptying Study [facility] Imaging Services [address], [place] [id number] Gastric Emptying Study MR#: [id number] Acct: [id number] Name: DARI APARICIO Rep #: [id number] : 1990 F 34 From: Teddy Holbrook PCP: Care Physician,No Primary Status: REG CLI Study: Gastric Emptying Study Date of Exam: 05/11/24 Exam# [id number] Ordering Dr: Vidhya Anderson 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-Abel [id number] CLINICAL: 34-year-old female with history of chronic [...] gastric emptying compared to normal controls. (Nadira et al, J Nucl Med Tech 38: 186, 2010). Electronically Signed: Teddy Eldridge DO at 13:15 EST , CC: PERLITA Anderson; No Primary Care Physician Pumper Helper: Signed Normal [facility] .Auto Diffon 05-04-2024 Basophil, Absolute 0.1 10 3/mcL Normal 0.0-0.2 [facility] Comment on above: Performed By: #### A WYATT WILKERSON, LIP, CBC, GFR, ADIFF, CMP #### [address] [place], [place] [address] Basophils/100 WBC (Bld) 1.1 % Normal 0.0-2.5 [facility] Comment on above: Performed By: #### A WYATT WILKERSON, LIP, CBC, GFR, ADIFF, CMP #### [address] [place], [place] [address] Eosinophil, Absolute 0.0 10 3/mcL Normal 0.0-0.7 [facility] Comment on above: Performed By: #### A WYATT WILKERSON, LIP, CBC, GFR, ADIFF, CMP #### [address] [place], [place] [address] Eosinophils/100 WBC (Bld) 0.7 % Normal 0.0-7.0 [facility] Comment on above: Performed By: #### A WYATT WILKERSON, LIP, CBC, GFR, ADIFF, CMP #### [address] [address] Lymphocyte, Absolute 2.9 10 3/mcL Normal 0.9-4.3 [facility] Comment on above: Performed By: #### A WYATT WILKERSON, LIP, CBC, GFR, ADIFF, CMP #### [address] [address] Lymphocytes/100 WBC (Bld) 45.5 % High 20.0-40.0 [facility] Comment on above: Performed By: #### A WYATT WILKERSON, LIP, CBC, GFR, ADIFF, CMP #### [address] [address] Monocyte, Absolute 0.5 10 3/mcL Normal 0.1-1.4 [facility] Comment on above: Performed By: #### A WYATT WILKERSON, LIP, CBC, GFR, ADIFF, CMP #### [address] [address] Monocytes/100 WBC (Bld) 7.3 % Normal 2.0-13.0 [facility] Comment on above: Performed By: #### A WYATT WILKERSON, LIP, CBC, GFR, ADIFF, CMP #### [address] [address] Neutrophils/100 WBC (Bld) 45.4 % Low 50.0-75.0 [facility] Comment on above: Performed By: #### A WYATT WILKERSON, LIP, CBC, GFR, ADIFF, CMP #### [address] [address] .GFRon 05-04-2024 GFR 111 ml/min/1.73sqm Normal [facility] Comment on above: Result Comment: GFR Population [...] mL/min/1.73 square meters Performed By: #### A WYTAT WILKERSON, LIP, CBC, GFR, ADIFF, CMP #### [address] [address] GFR Non- 91 ml/min/1.73sqm Normal [facility] Comment on above: Result Comment: GFR Population [...] WILKERSON, LIP, CBC, GFR, ADIFF, CMP #### [address] [address] .MDWon 05-04-2024 Monocyte Distribution Width 18.18 Normal 0.00-20.00 [facility] Comment on above: Result Comment: For ED adult patients suspected of sepsis, MDW<=20.0 does not rule out sepsis or risk of sepsis Performed By: #### A WYATT WILKERSON, LIP, CBC, GFR, ADIFF, CMP #### [address] [address] .NEUABSon 05-04-2024 Neutrophil, Absolute 2.9 10 3/mcL Normal 2.3-8.1 [facility] Comment on above: Performed By: #### A WYATT WILKERSON, LIP, CBC, GFR, ADIFF, CMP #### [address] [address] CBCon 05-04-2024 Erythrocyte distribution width (RBC) [Ratio] 12.9 % Normal 11.5-15.5 [facility] Comment on above: Performed By: #### A WYATT WILKERSON, LIP, CBC, GFR, ADIFF, CMP #### [place] [address] Hematocrit (Bld) [Volume fraction] 35.1 % Normal 34.0-46.0 [facility] Comment on above: Performed By: #### A WYATT WILKERSON, LIP, CBC, GFR, ADIFF, CMP #### [place] [address] Hgb 12.1 G/dL Normal 12.0-16.0 [facility] Comment on above: Performed By: #### A WYATT WILKERSON, LIP, CBC, GFR, ADIFF, CMP #### [place] [address] MCH (RBC) [Entitic mass] 29.9 pg Normal 27.0-33.0 [facility] Comment on above: Performed By: #### A WYATT WILKERSON, LIP, CBC, GFR, ADIFF, CMP #### [place] [address] MCHC 34.5 G/dL Normal 32.0-36.0 [facility] Comment on above: Performed By: #### A WYATT WILKERSON, LIP, CBC, GFR, ADIFF, CMP #### [place] [address] MCV (RBC) [Entitic vol] 86.6 fL Normal 80.0-99.0 [facility] Comment on above: Performed By: #### A WYATT WILKERSON, LIP, CBC, GFR, ADIFF, CMP #### [address] [address] Platelet 389 10 3/mcL Normal 150-450 [facility] Comment on above: Performed By: #### A WYATT WILKERSON, LIP, CBC, GFR, ADIFF, CMP #### [address] [address] Platelet mean volume (Bld) [Entitic vol] 6.6 fL Normal 6.6-10.5 [facility] Comment on above: Performed By: #### A WYATT WILKERSON, LIP, CBC, GFR, ADIFF, CMP #### [address] [address] RBC 4.05 10 6/mcL Low 4.10-5.30 [facility] Comment on above: Performed By: #### A WYATT WILKERSON, LIP, CBC, GFR, ADIFF, CMP #### [address] [address] WBC 6.5 10 3/mcL Normal 4.5-10.8 [facility] Comment on above: Performed By: #### A WYATT WILKERSON, THOMAS, CBC, GFR, ADIFF, CMP #### [address] [address] CMPon 05-04-2024 Albumin Level 4.2 G/dL Normal 3.5-5.0 [facility] Comment on above: Performed By: #### A WYATT WILKERSON, LIP, CBC, GFR, ADIFF, CMP #### [address] [address] Albumin/Globulin [Mass ratio] 1.4 {ratio} Normal 1.1-2.5 [facility] Comment on above: Performed By: #### A WYATT WILKERSON, THOMAS, CBC, GFR, ADIFF, CMP #### [address] [address] ALP [Catalytic activity/Vol] 65 U/L Normal 40-135 [facility] Comment on above: Performed By: #### A WYATT WILKERSON, LIP, CBC, GFR, ADIFF, CMP #### [address] [address] ALT [Catalytic activity/Vol] 39 U/L Normal 14-59 [facility] Comment on above: Performed By: #### A WYATT WILKERSON, LIP, CBC, GFR, ADIFF, CMP #### [address] [address] AST [Catalytic activity/Vol] 20 U/L Normal 10-40 [facility] Comment on above: Performed By: #### A WYATT WILKERSON, LIP, CBC, GFR, ADIFF, CMP #### [address] [address] Bili Total 0.2 mg/dL Normal 0.2-1.0 [facility] Comment on above: Result Comment: Use of this assay is not recommended for patients undergoing treatment with eltrombopag due to the potential for falsely elevated results. Performed By: #### A WYATT WILKERSON, LIP, CBC, GFR, ADIFF, CMP #### [address] [address] BUN/Creatinine Ratio 21 ratio Normal 7-27 [facility] Comment on above: Performed By: #### A WYATT WILKERSON, THOMAS, CBC, GFR, ADIFF, CMP #### [address] [address] Calcium [Mass/Vol] 9.5 mg/dL Normal 8.4-10.2 [facility] Comment on above: Performed By: #### A WYATT WILKERSON, LIP, CBC, GFR, ADIFF, CMP #### [address] [address] Chloride [Moles/Vol] 101 mmol/L Normal 98-107 [facility] Comment on above: Performed By: #### A WYATT WILKERSON, LIP, CBC, GFR, ADIFF, CMP #### [address] [address] CO2 [Moles/Vol] 33 mmol/L High 22-29 [facility] Comment on above: Performed By: #### A WYATT WILKERSON, LIP, CBC, GFR, ADIFF, CMP #### [address] [address] Creatinine [Mass/Vol] 0.73 mg/dL Normal 0.55-1.02 [facility] Comment on above: Result Comment: Test ing performed on Siemens Dimension EXL analyzer using a modified kinetic Kamilla technique. Performed By: #### A WYATT WILKERSON, LIP, CBC, GFR, ADIFF, CMP #### [address] [address] Electrolyte Balance 6.0 mEq/L Normal 4.0-15.0 [facility] Comment on above: Performed By: #### A WYATT WILKERSON, LIP, CBC, GFR, ADIFF, CMP #### [address] [address] Globulin 3.1 G/dL Normal [facility] Comment on above: Performed By: #### A WYATT WILKERSON, LIP, CBC, GFR, ADIFF, CMP #### [address] [address] Glucose [Mass/Vol] 90 mg/dL Normal 70-105 [facility] Comment on above: Performed By: #### A WYATT WILKERSON, LIP, CBC, GFR, ADIFF, CMP #### [address] [address] Potassium [Moles/Vol] 4.4 mmol/L Normal 3.5-5.1 [facility] Comment on above: Performed By: #### A WYATT WILKERSON, LIP, CBC, GFR, ADIFF, CMP #### [address] [address] Sodium [Moles/Vol] 140 mmol/L Normal 136-145 [facility] Comment on above: Performed By: #### A WYATT WILKERSON, LIP, CBC, GFR, ADIFF, CMP #### [address] [address] Total Protein 7.3 G/dL Normal 6.4-8.2 [facility] Comment on above: Performed By: #### A WYATT WILKERSON, LIP, CBC, GFR, ADIFF, CMP #### [facility] [address] [place], [place] [address] Urea nitrogen [Mass/Vol] 15 mg/dL Normal 7-18 [facility] Comment on above: Performed By: #### A WYATT WILKERSON, LIP, CBC, GFR, ADIFF, CMP #### [facility] [address] [place], [place] [address] CT ABD/PELVIS W/ IV CONTRAST ONLYon 05-04-2024 CT ABD/PELVIS W/ IV CONTRAST ONLY ORIGINAL EXAMINATION: CT OF THE ABDOMEN AND PELVIS WITH ILLCCKHU14/13/2024 8:[address] ABDOMEN/PELVIS WITH CONTRAST TECHNIQUE: [...] was dx w a month ago at [facility] pain FINDINGS: The size, density, and morphology [...] 05/04/2024 8:37:31 PM Ordering Provider: CONSTANTINO Silva [facility]ORYOrdered By: SYSTEM SYSTEM on 05-04-2024 Albumin [...] (Bld) [#/Vol] 4.05 106/mcL Low 4.10 - 5.30 10^6/mcL AO Workflow SS Sodium [Moles/Vol] 140 [...] Oskar soriano on 05-04-2024 Appearance (U) Clear (12/13/24 7:41 PM) Normal Clear AO Auto Urine [...] Spec Grav 1.020 (05/04/24 7:41 PM) Normal 1.015-1.02 5 AO Auto Urine SS UA Specimen Type Not Given (05/04/24 7:41 PM) Normal AO Auto Urine SS UA Urobilinogen 0.2 E.U./dL Normal 0.2-1.0 AO Auto Urine SS LIPon 05-04-2024 Lipase Level 57 U/L Normal 16-77 [facility] Comment on above: Performed By: #### A WYATT WILKERSON, LIP, CBC, GFR, ADIFF, CMP #### [address] [address] PREGUon 05-04-2024 HCG ( test) Ql (U) Negative Normal [facility] Comment on above: Performed By: #### U A, PREGU #### [address] [address] test (u) int Not detected Invalid Interpretation Code [facility] Comment on above: Performed By: #### U A, PREGU #### [address] [address] UAon 05-04-2024 Color (U) Yellow Normal [facility] Comment on above: Performed By: #### U A, PREGU #### [address] [address] Glucose (U) [Mass/Vol] Negative Normal Negative [facility] Comment on above: Performed By: #### U A, PREGU #### [place] [address] Ketones Ql (U) Negative Normal Negative [facility] Comment on above: Performed By: #### U A, PREGU #### [place] [address] UA Appear Clear Normal Clear [facility] Comment on above: Performed By: #### U A, PREGU #### [place] [address] UA Blood Negative Normal Negative [facility] Comment on above: Performed By: #### U A, PREGU #### [address] [address] UA Leuk Est Negative Normal Negative [facility] Comment on above: Performed By: #### U A, PREGU #### [place] [address] UA Nitrite Negative Normal Negative [facility] Comment on above: Performed By: #### U A, PREGU #### [place] [address] UA pH 7.0 Normal 5.0 - 8.0 [facility] Comment on above: Performed By: #### U A, PREGU #### [place] [address] UA Protein Negative Normal Negative [facility] Comment on above: Performed By: #### U A, PREGU #### [place] [address] UA Spec Grav 1.020 Normal 1.015-1.02 5 [facility] Comment on above: Performed By: #### U A, PREGU #### [facility] [address] [place], [place] [address] UA Specimen Type Not Given Normal [facility] Comment on above: Performed By: #### U A, PREGU #### [place] [address] [place], [place] [address] UA Urobilinogen 0.2 E.U./dL Normal 0.2-1.0 [facility] Comment on above: Performed By: #### U A, PREGU #### [place] [address] [place], [place] [address] Urobilinogen (U) [Mass/Vol] Negative Normal Negative [facility] Comment on above: Performed By: #### U A, PREGU #### [place] [address] [place], [place] [address] [id number] 04-04-2024 [id number] Can you cancel appt for Tuesday? Pt will call when she feels the need to come back. Thanks! [facility] [phone] please see message. Normal [facility] 36on 03-30-2024 36 Pt notified that res ults have been received and NK will have discussion about them on 04-06 [facility] 36 Please let the pt kn ow We have her CT result/EGD and we will discuss ozempic during her upcoming yaya on 04/06. Thank you [facility] 36 Received reports fro [facility]. Scanned in media mgr. Please advise. [facility] 36 LVM at [facility] Medical records. Requesting recent CT scan with contrast and EGD for review. Left phone and fax number. [facility] CNOVon 03-30-2024 CNOV Office Visit ([facility] ) -- DARI APARICIO ([id number]) 1990 F Date Time Provider Department 03/30/24 8:30 AM CHRISTOPHER DARI [facility] During your visit today, we recorded the following information about you: Temperature Pulse Respiration Blood pressure 98.1 degrees 116/minute 16/minute 109/76 Weight 68.5 kg Chirstopher RONDA Chapin 03/30/2024 9:48 AM Signed This note was created using NoteWriter. Subjective Dari Aparicio is a 33 year old female. 33 year old female with PMH ashtma, anxiety and depression presents for illness. Acute onset one week ago + cough +productive +sinus pressure +nasal congestion +rhinorrhea ' thick and green" Cough keeping up at night Denies tobacco usage Denies using homeopathic or OTC I think it is a sinus infection and my mom thinks it is pneumonia" States she does not have a current albuterol inhaler despite her diagnosis of asthma. The history is provided by the patient. No halfway house counselor was used. Cough This is a new [...] mouth. (Patient not taking: Reported on 06/14/2023) Lsnrcvotwcagf-Ip-Emog-Mine rals (MULTIPLE VITAMIN, WOMENS) tab Take 1 tablet [...] None Father (more content not included)... Normal [facility] XR CHEST 2V FRONTAL/LATon XR CHEST 2V FRONTAL/LAT * * *Final Report* * * DATE [...] tissues: Unremarkable. IMPRESSION: No acute radiographic abnormality. Pumper Helper: RIANA Transcribe Date/Time: Mar 30 2024 9:30A Dictated by : MYRA LOVELL DO This examination was interpreted and the report reviewed and electronically signed by: MYRA LOVELL DO on Mar 30 2024 9:31AM EST [id number] Normal [facility] XR Chest PA and Lateralon IMPRESSION: No acute radiographic abnormality. Pumper Helper: RIANA Transcribe Date/Time: Mar 30 2024 9:30A Dictated by : MYRA LOVELL DO This examination was interpreted and the report reviewed and electronically signed by: MYRA LOVELL DO on Mar 30 2024 9:31AM [facility] DIVISION OF RADIOLOGY * * *Final Report* [...] soft tissues: Unremarkable. DIVISION OF RADIOLOGY Provider, [facility] - 03/30/2024 * * *Final Report* [...] Unremarkable. IMPRESSION IMPRESSION: No acute radiographic abnormality. Pumper Helper: PSCB Transcribe Date/Time: Mar 30 2024 9:30A Dictated by : MYRA LOVELL DO This examination was interpreted and the report reviewed and electronically signed by: MYRA LOVELL DO on Mar 30 2024 9:31AM [facility] Radiology Study observation (narrative) [facility] XR Chest PA and LateralOrder ed By: [facility] Provider on 03-30-2024 [facility] [id number] [id number] to contact RIDDHI sarahi haynes through [employer]. [facility] 36on 03-29-2024 36 PATIENT CALLED SAID SHE NEEDED TO SPEAK TO DR PIERRE'S OFFICE WITH QUESTIONS ABOUT MEDICATIONS / PATIENT DID NOT WANT TO COMMUNICATE THROUGH [employer] [facility] 36on 03-26-2024 36 Pt notified Ozempic sent. [facility] 36on 03-23-2024 36 Ozempic is sent Thank you [facility] 36 Refill request for Ozempic. Pended. [facility] 36on 02-27-2024 36 Ozempic is approved The next yaya is mandatory Thank you [facility] 36 Last OV 7-19 Next OV 11-15. Refill request pended. Thank you! [facility] Absolute lymphocyte countOrd ered By: Es Villarreal on 06-16-2023 Lymphocytes Auto (Unsp spec) [#/Vol] 2.29 10*3/uL 0.83-4.51 [facility] Automated lymphocyte count a s percentage of total leukocytesOrdered By: Es Villarreal on 06-16-2023 Lymphocytes/100 WBC Auto (Unsp spec) 50.6 % 19-41 [facility] Basophil percentageOrdered B y: Es Villarreal on 06-16-2023 Basophils/100 WBC (Bld) 0.9 % 0-1 [facility] Eosinophils/100 WBC (Bld) 1.1 % 0-5 [facility] Hemoglobin (Bld) [Mass/Vol] 11.9 g/dL 12.0-15.0 [facility] Monocytes/100 WBC (Bld) 7.7 % 0-10 [facility] Neutrophils (Bld) [#/Vol] 1.8 10*3/uL 2.0-7.7 [facility] Neutrophils/100 WBC (Bld) 39.7 % 47-70 [facility] WBC (Bld) [#/Vol] 4.5 10*3/uL 4.4-11.0 [facility] Determination of erythrocyte mean corpuscular volume (MCV)Ordered By: Es Villarreal on 06-16-2023 MCV (RBC) [Entitic vol] 87.4 fL 81-99 [facility] Erythrocyte distribution wid th ratioOrdered By: Es Villarreal on 06-16-2023 Erythrocyte distribution width (RBC) [Ratio] 13.0 % 11.6-14.6 [facility] Erythrocyte distribution wid th standard deviationOrdered By: Es Villarreal on 06-16-2023 Erythrocyte distribution width (RBC) [Entitic vol] 41.4 fL 35.1-43.9 [facility] Hematocrit Auto (Bld) [Volum e fraction]Ordered By: Es Villarreal on 06-16-2023 Hematocrit (Bld) [Volume fraction] 35.3 % 37-47 [facility] Immature granulocytes/100 WB C Auto (Bld)Ordered By: Es Villarreal on 06-16-2023 Immature granulocytes/100 WBC (Bld) 0.000 % 0.0-0.9 [facility] Comment on above: IG% - Immature Granu locytes (promyelocytes, myelocytes and metamyelocytes) > 1% indicates that a LEFT SHIFT is Present. Laboratory - Chemistry and C hemistry - challengeOrdered By: Es Villarreal on 06-16-2023 Ferritin [Mass/Vol] 13 ng/mL 8-252 [facility] Laboratory - Hematology and Cell countsOrdered By: Es Villarreal on 06-16-2023 MCH (RBC) [Entitic mass] 29.5 pg 27.0-32.0 [facility] MCHC (RBC) [Mass/Vol] 33.7 g/dL 32-36 [facility] Nucleated RBC/100 WBC (Bld) [Ratio] 0 % 0-5 [facility] Platelets (Bld) [#/Vol] 356 10*3/uL 150-450 [facility] No Panel InformationOrdered By: Es Villarreal on 06-16-2023 Total Iron Binding Capacity 316 ug/dL 250-450 [facility] Platelet mean volume Bryan-Ec ker (Bld) [Entitic vol]Ordered By: Es Villarreal on 06-16-2023 Platelet mean volume (Bld) [Entitic vol] 9.0 fL 6.2-12.0 [facility] RBC Auto (Bld) [#/Vol]Ordere d By: Es Villarreal on 06-16-2023 RBC (Bld) [#/Vol] 4.04 10*6/uL 4.2-5.4 [facility] Cervical or vaginal specimen microscopic examination by liquid based cytology (reported as document)Ordered By: Es Villarreal on 06-01-2023 Cytology report Cyto stain.thin prep Doc (Cvx/Vag) Comment . [facility] Comment on above: Criteria not met, HP V Genotype not performed.Performed at: - [facility] [id number] Director: Jana Roberson MD, Phone: [phone] at: =[facility] [id number] Director: Jana Roberson MD, Phone: [phone] Cervical or vagninal specime n microscopic examination by cytology stain (reported asOrdered By: Es Villarreal on 06-01-2023 Cytology report Cyto stain Doc (Cvx/Vag) Comment . [facility] Comment on above: The Pap smear is [...] 33,Ordered By: Es Villarreal on 06-01-2023 HPV 16+18+31+33+35+39+45+5 1+52+56+58+59+66+68 DNA Probe+sig amp Ql (Cvx) Negative Negative [facility] Comment on above: This nucleic acid am plification test detects fourteen high- risk HPV types (16,18,31,33,35,39,45,51,52,56,58,59,66,68)without differentiation. Laboratory - CytologyOrdered By: Es iVllarreal on 06-01-2023 Oil Well Pumper Cyto stain Nom (Cvx/Vag) [ID] Comment . [facility] Comment on above: Latoya Cotto, Cyto technologist (ASCP) Laboratory - Miscellaneous t estsOrdered By: Es Villarreal on 06-01-2023 Service comment (Unsp spec) [Interp] Comment . [facility] Comment on above: This liquid based Th inPrep(R) pap test was screened withthe use of an image guided system. Service comment (Unsp spec) [Interp] . . [facility] No Panel InformationOrdered By: Es Villarreal on 06-01-2023 Pathology report final diagnosis Narrative Comment . [facility] Comment on above: NEGATIVE FOR INTRAEP ITHELIAL LESION OR MALIGNANCY. Chlamydia trachomatis rRNA d etection by probe and target amplification methodOrdered By: Afsaneh Snow on 05-24-2023 C. trachomatis rRNA MARSHA+probe Ql (Unsp spec) Negative Negative [facility] Gram stain for investigation of transfusion reactionOrdered By: Afsaneh Snow on 05-24-2023 Microscopic observation Gram stain Nom (Unsp spec) [facility] Laboratory - Chemistry and C hemistry - challengeon 05-24-2023 Bilirubin Ql (U) Negative [facility] Glucose Ql (U) Negative [facility] Ketones Ql (U) Negative [facility] pH (U) 5.0 [pH] [facility] Specific gravity (U) [Rel density] 1.010 [facility] Urobilinogen (U) [Mass/Vol] Negative [facility] Laboratory - Hematology and Cell countson 05-24-2023 Hemoglobin Ql (U) Negative [facility] Laboratory - Microbiology an d Antimicrobial susceptibilityOrdered By: Afsaneh Snow on 05-24-2023 N. gonorrhoeae DNA MARSHA+probe Ql (Unsp spec) Negative Negative [facility] Comment on above: Performed at: =G - [address] [id number] Director: Jana Roberson MD, Phone: [phone] Laboratory - Specimen inform ationon 05-24-2023 Clarity (U) Clear [facility] Color (U) YELLOW [facility] Laboratory - Urinalysison Nitrite Ql (U) Negative [facility] Protein Ql (U) Negative [facility] No Panel Informationon 05-24 POC Bacterial Vaginitis (Rapid) Negative [facility] POC Trichomonas (Rapid) Negative [facility] Urine Leukocytes Negatve [facility] Urine Non-Hemolyzed Blood Negative [facility] Thin prep Papanicolaou smear with manual screeningOrdered By: Afsaneh Snow on 05-24-2023 Thin prep Papanicolaou smear with manual screening Neisseria or beta-hemolytic Streptococcus isolated. [facility] Gram stain for investigation of transfusion reactionOrdered By: Yessi Koo on 04-22-2023 Microscopic observation Gram stain Nom (Unsp spec) [facility] No Panel Informationon 04-22 POC Bacterial Vaginitis (Rapid) Negative [facility] Thin prep Papanicolaou smear with manual screeningOrdered By: Yessi Koo on 04-22-2023 Genital Culture Streptococcus group B [facility] Absolute lymphocyte countOrd ered By: Jacqueline Cordova on 04-21-2023 Lymphocytes Auto (Unsp spec) [#/Vol] 2.00 10*3/uL 0.83-4.51 [facility] Basophil percentageOrdered B y: Jacqueline Cordova on 04-21-2023 Basophils/100 WBC (Bld) 0.9 % 0-1 [facility] Eosinophils/100 WBC (Bld) 0.7 % 0-5 [facility] Neutrophils (Bld) [#/Vol] 2.2 10*3/uL 2.0-7.7 [facility] Neutrophils/100 WBC (Bld) 46.7 % 47-70 [facility] WBC (Bld) [#/Vol] 4.6 10*3/uL 4.4-11.0 [facility] Blood erythrocytes count (nu mber/volume)Ordered By: Jacqueline Cordova on 04-21-2023 RBC (Bld) [#/Vol] 4.17 10*6/uL 4.2-5.4 [facility] Blood hemoglobin measurement (mass/volume)Ordered By: Jacqueline Cordova on 04-21-2023 Hemoglobin (Bld) [Mass/Vol] 12.4 g/dL 12.0-15.0 [facility] Blood lymphocytes/100 leukoc ytesOrdered By: Jacqueline Cordova on 04-21-2023 Lymphocytes/100 WBC (Bld) 43.5 % 19-41 [facility] Blood monocytes/100 leukocyt esOrdered By: Jacqueline Cordova on 04-21-2023 Monocytes/100 WBC (Bld) 8.0 % 0-10 [facility] Blood platelet mean volumeOr dered By: Jacqueline Cordova on 04-21-2023 Platelet mean volume (Bld) [Entitic vol] 9.7 fL 6.2-12.0 [facility] Determination of erythrocyte mean corpuscular volume (MCV)Ordered By: Jacqueline Cordova on 04-21-2023 MCV (RBC) [Entitic vol] 87.5 fL 81-99 [facility] Hematocrit Auto (Bld) [Volum e fraction]Ordered By: Jacqueline Cordova on 04-21-2023 Hematocrit (Bld) [Volume fraction] 36.5 % 37-47 [facility] Laboratory - Hematology and Cell countsOrdered By: Jacqueline Cordova on 04-21-2023 Erythrocyte distribution width (RBC) [Entitic vol] 39.3 fL 35.1-43.9 [facility] Erythrocyte distribution width (RBC) [Ratio] 12.4 % 11.6-14.6 [facility] Immature granulocytes/100 WBC (Bld) 0.200 % 0.0-0.9 [facility] Comment on above: IG% - Immature Granu locytes (promyelocytes, myelocytes and metamyelocytes) > 1% indicates that a LEFT SHIFT is Present. MCH (RBC) [Entitic mass] 29.7 pg 27.0-32.0 [facility] Nucleated RBC/100 WBC (Bld) [Ratio] 0 % 0-5 [facility] MCHC Auto (RBC) [Mass/Vol]Or dered By: Jacqueline Cordova on 04-21-2023 MCHC (RBC) [Mass/Vol] 34.0 g/dL 32-36 [facility] Platelets bldOrdered By: Patricia Cordova on 04-21-2023 Platelets (Bld) [#/Vol] 364 10*3/uL 150-450 [facility] Serum or plasma ferritin lupe surement (mass/volume)Ordered By: Jacqueline Cordova on 04-21-2023 Ferritin [Mass/Vol] 14 ng/mL 8-252 [facility] - Microbiology an d Antimicrobial susceptibilityon 01-23-2023 SARS-CoV-2 (COVID-19) RNA MARSHA+probe Ql (Unsp spec) Not detected [facility] No Panel Informationon 01-23 Influenza Types A,B Rapid (Clinic) Not detected [facility] Absolute lymphocyte countOrd ered By: Oracio Johnson on 01-12-2023 Lymphocytes Auto (Unsp spec) [#/Vol] 1.92 10*3/uL 0.83-4.51 [facility] Basophil percentageOrdered B y: Oracio Johnson on 01-12-2023 Basophil percentage 0 SEEN /hpf 0-5 [facility] Basophils/100 WBC (Bld) 1.0 % 0-1 [facility] Bilirubin [Mass/Vol] 0.50 mg/dL 0.20-1.00 [facility] Comment on above: For patients on eltr ombopag therapy, use of Dimension Rogers TBIL is not recommended. Chloride [Moles/Vol] 109 mmol/L 98-107 [facility] Eosinophils/100 WBC (Bld) 1.0 % 0-5 [facility] Glucose [Mass/Vol] 91 mg/dL 74-106 [facility] Neutrophils (Bld) [#/Vol] 1.7 10*3/uL 2.0-7.7 [facility] Neutrophils/100 WBC (Bld) 41.8 % 47-70 [facility] Potassium [Moles/Vol] 4.7 mmol/L 3.5-5.1 [facility] Comment on above: Slight Hemolysis, Re sult may be falsely increased. Protein [Mass/Vol] 7.4 g/dL 6.4-8.2 [facility] Sodium [Moles/Vol] 141 mmol/L 136-145 [facility] WBC (Bld) [#/Vol] 4.0 10*3/uL 4.4-11.0 [facility] Beta hCG serum qualOrdered B y: Oracio Johnson on 01-12-2023 Beta HCG ( test) Ql Negative [facility] Bilirubin Test strip Ql (U)O rdered By: Oracio Johnson on 01-12-2023 Bilirubin Ql (U) Negative Negative [facility] Blood erythrocytes count (nu mber/volume)Ordered By: Oracio Johnson on 01-12-2023 RBC (Bld) [#/Vol] 4.14 10*6/uL 4.2-5.4 [facility] Blood hemoglobin measurement (mass/volume)Ordered By: Oracio Johnson on 01-12-2023 Hemoglobin (Bld) [Mass/Vol] 12.2 g/dL 12.0-15.0 [facility] Blood lymphocytes/100 leukoc ytesOrdered By: Oracio Johnson on 01-12-2023 Lymphocytes/100 WBC (Bld) 47.6 % 19-41 [facility] Blood monocytes/100 leukocyt esOrdered By: Oracio Johnson on 01-12-2023 Monocytes/100 WBC (Bld) 8.4 % 0-10 [facility] Blood platelet mean volumeOr dered By: Oracio Johnson on 01-12-2023 Platelet mean volume (Bld) [Entitic vol] 9.0 fL 6.2-12.0 [facility] Determination of erythrocyte mean corpuscular volume (MCV)Ordered By: Oracio Johnson on 01-12-2023 MCV (RBC) [Entitic vol] 87.9 fL 81-99 [facility] Hematocrit Auto (Bld) [Volum e fraction]Ordered By: Oracio Johnson on 01-12-2023 Hematocrit (Bld) [Volume fraction] 36.4 % 37-47 [facility] Ketones Test strip Ql (U)Ord ered By: Oracio Johnson on 01-12-2023 Ketones Ql (U) Negative Negative [facility] Laboratory - Chemistry and C hemistry - challengeOrdered By: Oracio Johnson on 01-12-2023 ALP [Catalytic activity/Vol] 50 U/L 45-117 [facility] ALT [Catalytic activity/Vol] 25 U/L 13-56 [facility] CO2 [Moles/Vol] 26.0 mmol/L 21.0-32.0 [facility] Globulin (S) [Mass/Vol] 3.4 g/dL 2.2-4.2 [facility] Lipase [Catalytic activity/Vol] 44 U/L 13-75 [facility] Comment on above: Please note:LIPASE r evised reference range effective 22. New Lipase methodology. Expected to produce lower values than the previous assay method. NEW Reference Range: 13 - 75 U/L Urea nitrogen/Creatinine [Mass ratio] 11.4 mg/mg 10-20 [facility] Laboratory - Hematology and Cell countsOrdered By: Oracio Johnson on 01-12-2023 Erythrocyte distribution width (RBC) [Entitic vol] 39.7 fL 35.1-43.9 [facility] Erythrocyte distribution width (RBC) [Ratio] 12.5 % 11.6-14.6 [facility] Immature granulocytes/100 WBC (Bld) 0.200 % 0.0-0.9 [facility] Comment on above: IG% - Immature Granu locytes (promyelocytes, myelocytes and metamyelocytes) > 1% indicates that a LEFT SHIFT is Present. MCH (RBC) [Entitic mass] 29.5 pg 27.0-32.0 [facility] Nucleated RBC/100 WBC (Bld) [Ratio] 0 % 0-5 [facility] MCHC Auto (RBC) [Mass/Vol]Or dered By: Oracio Johnson on 01-12-2023 MCHC (RBC) [Mass/Vol] 33.5 g/dL 32-36 [facility] Mucus LM Ql (Urine sed)Order ed By: Oracio Johnson on 01-12-2023 Mucus Ql (Urine sed) 0 SEEN /hpf [facility] Nitrite Test strip Ql (U)Ord ered By: Oracio Johnson on 01-12-2023 Nitrite Ql (U) Negative Negative [facility] No Panel InformationOrdered By: Oracio Johsnon on 01-12-2023 Estimated Creatinine Clearance Calc 77.15 ml/min [facility] Estimated GFR (MDRD) Amer 108 mL/min >60 [facility] Comment on above: GFR Calc Estimated GFR (MDRD) Non-Af Amer 89 mL/min >60 [facility] Comment on above: Non- GFR Calc Platelets bldOrdered By: Shahriar Johnson on 01-12-2023 Platelets (Bld) [#/Vol] 296 10*3/uL 150-450 [facility] Protein Test strip Ql (U)Ord ered By: Oracio Johnson on 01-12-2023 Protein Ql (U) Negative Negative [facility] Serum or plasma albumin miranda urement (mass/volume)Ordered By: Oracio Johnson on 01-12-2023 Albumin [Mass/Vol] 4.0 g/dL 3.2-5.0 [facility] Serum or plasma albumin/glob ulin mass ratioOrdered By: Oracio Johnson on 01-12-2023 Albumin/Globulin [Mass ratio] 1.2 {ratio} 0.9-2.4 [facility] Serum or plasma calcium miranda urement (mass/volume)Ordered By: Oracio Johnson on 01-12-2023 Calcium [Mass/Vol] 9.1 mg/dL 8.5-10.1 [facility] Serum or plasma creatinine m easurement (mass/volume)Ordered By: Oracio Johnson on 01-12-2023 Creatinine [Mass/Vol] 0.79 mg/dL 0.55-1.02 [facility] Comment on above: The validity of the calculated GFR & GFRAA in patients over 70 years has not been determined. Clinical correlation is essential. Serum or plasma urea nitroge n measurement (mass/volume)Ordered By: Oracio oJhnson on 01-12-2023 Urea nitrogen [Mass/Vol] 9 mg/dL 7-18 [facility] Squamous epithelial cells de tection in urine sediment by light microscopyOrdered By: Oracio Johnson on 01-12-2023 Epithelial cells.squamous LM Ql (Urine sed) 0-5 SEEN /hpf 5-10 [facility] Thin prep Papanicolaou smear with manual screeningOrdered By: Oracio Johnson on 01-12-2023 Thin prep Papanicolaou smear with manual screening 20 U/L 15-37 [facility] Comment on above: Slight Hemolysis, Re sult may be falsely increased. Thin prep Papanicolaou smear with manual screening 6 5-15 [facility] Urine blood detectionOrdered By: Oracio Johnson on 01-12-2023 RBC Ql (U) 10 /ul Negative [facility] RBC Ql (U) 0 SEEN /hpf 0-5 [facility] Urine clarityOrdered By: Shahriar Johnson on 01-12-2023 Clarity (U) Clear Clear [facility] Urine color determinationOrd ered By: Oracio Johnson on 01-12-2023 Color (U) Yellow Yellow [facility] Urine glucose detectionOrder ed By: Oracio Johnson on 01-12-2023 Glucose Ql (U) Normal mg/dl Normal [facility] Urine leukocyte esterase det ection by dipstickOrdered By: Oracio Johnson on 01-12-2023 Leukocyte esterase Test strip Ql (U) Negative Negative [facility] Urine pHOrdered By: Oracio ash on 01-12-2023 pH (U) 6.5 [pH] 5.0 - 8.0 [facility] Urine sediment bacteria coun t by microscopy (number/high power field)Ordered By: Oracio Johnson on 01-12-2023 Bacteria LM.HPF (Urine sed) [#/Area] RARE /hpf None Seen [facility] Urine specific gravity measu rementOrdered By: Oracio Johnson on 01-12-2023 Specific gravity (U) [Rel density] 1.010 1.002-1.03 0 [facility] Urobilinogen Auto test strip Ql (U)Ordered By: Oracio Johnson on 01-12-2023 Urobilinogen Ql (U) Normal mg/dl Normal [facility] Absolute lymphocyte countOrd ered By: Jacqueline Cordova on 12-07-2022 Lymphocytes Auto (Unsp spec) [#/Vol] 2.66 10*3/uL 0.83-4.51 [facility] Basophil percentageOrdered B y: Jacqueline Cordova on 12-07-2022 Basophils/100 WBC (Bld) 0.9 % 0-1 [facility] Eosinophils/100 WBC (Bld) 0.6 % 0-5 [facility] Neutrophils (Bld) [#/Vol] 3.4 10*3/uL 2.0-7.7 [facility] Neutrophils/100 WBC (Bld) 51.3 % 47-70 [facility] WBC (Bld) [#/Vol] 6.7 10*3/uL 4.4-11.0 [facility] Blood erythrocytes count (nu mber/volume)Ordered By: Jacqueline Cordova on 12-07-2022 RBC (Bld) [#/Vol] 4.36 10*6/uL 4.2-5.4 [facility] Blood hemoglobin measurement (mass/volume)Ordered By: Jacqueline Cordova on 12-07-2022 Hemoglobin (Bld) [Mass/Vol] 12.7 g/dL 12.0-15.0 [facility] Blood lymphocytes/100 leukoc ytesOrdered By: Jacqueline Cordova on 12-07-2022 Lymphocytes/100 WBC (Bld) 39.6 % 19-41 [facility] Blood monocytes/100 leukocyt esOrdered By: Jacqueline Cordova on 12-07-2022 Monocytes/100 WBC (Bld) 7.5 % 0-10 [facility] Blood platelet mean volumeOr dered By: Jacqueline Cordova on 12-07-2022 Platelet mean volume (Bld) [Entitic vol] 9.3 fL 6.2-12.0 [facility] Determination of erythrocyte mean corpuscular volume (MCV)Ordered By: Jacqueline Cordova on 12-07-2022 MCV (RBC) [Entitic vol] 89.2 fL 81-99 [facility] Hematocrit Auto (Bld) [Volum e fraction]Ordered By: Jacqueline Cordova on 12-07-2022 Hematocrit (Bld) [Volume fraction] 38.9 % 37-47 [facility] Iron measurement (mass/mass) Ordered By: Jacqueline Cordova on 12-07-2022 Iron (Unsp spec) [Mass/Mass] 121 ug/dL 50-170 [facility] Laboratory - Hematology and Cell countsOrdered By: Jacqueline Cordova on 12-07-2022 Erythrocyte distribution width (RBC) [Entitic vol] 39.6 fL 35.1-43.9 [facility] Erythrocyte distribution width (RBC) [Ratio] 12.2 % 11.6-14.6 [facility] Immature granulocytes/100 WBC (Bld) 0.100 % 0.0-0.9 [facility] Comment on above: IG% - Immature Granu locytes (promyelocytes, myelocytes and metamyelocytes) > 1% indicates that a LEFT SHIFT is Present. MCH (RBC) [Entitic mass] 29.1 pg 27.0-32.0 [facility] Nucleated RBC/100 WBC (Bld) [Ratio] 0 % 0-5 [facility] MCHC Auto (RBC) [Mass/Vol]Or dered By: Jacqueline Cordova on 12-07-2022 MCHC (RBC) [Mass/Vol] 32.6 g/dL 32-36 [facility] No Panel InformationOrdered By: Jacqueline Cordova on 12-07-2022 Total Iron Binding Capacity 382 ug/dL 250-450 [facility] Platelets bldOrdered By: Patricia Crodova on 12-07-2022 Platelets (Bld) [#/Vol] 340 10*3/uL 150-450 [facility] Serum or plasma ferritin lupe surement (mass/volume)Ordered By: Jacqueline Cordova on 12-07-2022 Ferritin [Mass/Vol] 12 ng/mL 8-252 [facility] Whole blood hemoglobin A1c/t otal hemoglobin ratio (mass fraction)Ordered By: Afsaneh Snow on 12-07-2022 HbA1c (Bld) [Mass fraction] 4.9 % 3.8-5.6 [facility] Comment on above: Normal < 5.7 % Predi abetic 5.7 - 6.4 % Diabetic >or= 6.5 % Please note range changes. Absolute lymphocyte countOrd ered By: Jacqueline Cordova on 11-12-2022 Lymphocytes Auto (Unsp spec) [#/Vol] 2.34 10*3/uL 0.83-4.51 [facility] Basophil percentageOrdered B y: Jacqueline Cordova on 11-12-2022 Basophils/100 WBC (Bld) 0.5 % 0-1 [facility] Eosinophils/100 WBC (Bld) 0.5 % 0-5 [facility] Neutrophils (Bld) [#/Vol] 2.7 10*3/uL 2.0-7.7 [facility] Neutrophils/100 WBC (Bld) 49.1 % 47-70 [facility] WBC (Bld) [#/Vol] 5.6 10*3/uL 4.4-11.0 [facility] Blood erythrocytes count (nu mber/volume)Ordered By: Jacqueline Cordova on 11-12-2022 RBC (Bld) [#/Vol] 3.94 10*6/uL 4.2-5.4 [facility] Blood hemoglobin measurement (mass/volume)Ordered By: Jacqueline Cordova on 11-12-2022 Hemoglobin (Bld) [Mass/Vol] 11.6 g/dL 12.0-15.0 [facility] Blood lymphocytes/100 leukoc ytesOrdered By: Jacqueline Cordova on 11-12-2022 Lymphocytes/100 WBC (Bld) 42.2 % 19-41 [facility] Blood monocytes/100 leukocyt esOrdered By: Jacqueline Cordova on 11-12-2022 Monocytes/100 WBC (Bld) 7.7 % 0-10 [facility] Blood platelet mean volumeOr dered By: Jacqueline Cordova on 11-12-2022 Platelet mean volume (Bld) [Entitic vol] 9.1 fL 6.2-12.0 [facility] Determination of erythrocyte mean corpuscular volume (MCV)Ordered By: Jacqueline Cordova on 11-12-2022 MCV (RBC) [Entitic vol] 88.6 fL 81-99 [facility] Hematocrit Auto (Bld) [Volum e fraction]Ordered By: Jacqueline Cordova on 11-12-2022 Hematocrit (Bld) [Volume fraction] 34.9 % 37-47 [facility] - Chemistry and C hemistry - challengeOrdered By: Jacqueline Cordova on 11-12-2022 Cobalamin (Vitamin B12) [Mass/Vol] 519 pg/mL 211-911 [facility] - Hematology and Cell countsOrdered By: Jacqueline Cordova on 11-12-2022 Erythrocyte distribution width (RBC) [Entitic vol] 41.0 fL 35.1-43.9 [facility] Erythrocyte distribution width (RBC) [Ratio] 12.5 % 11.6-14.6 [facility] Immature granulocytes/100 WBC (Bld) 0.000 % 0.0-0.9 [facility] Comment on above: IG% - Immature Granu locytes (promyelocytes, myelocytes and metamyelocytes) > 1% indicates that a LEFT SHIFT is Present. MCH (RBC) [Entitic mass] 29.4 pg 27.0-32.0 [facility] Nucleated RBC/100 WBC (Bld) [Ratio] 0 % 0-5 [facility] MCHC Auto (RBC) [Mass/Vol]Or dered By: Jacqueline Cordova on 11-12-2022 MCHC (RBC) [Mass/Vol] 33.2 g/dL 32-36 [facility] No Panel InformationOrdered By: Jacqueline Cordova on 11-12-2022 Thyroid Stimulating Hormone (TSH) 0.76 uIU/mL 0.358-3.74 [facility] Platelets bldOrdered By: Patricia Cordova on 11-12-2022 Platelets (Bld) [#/Vol] 346 10*3/uL 150-450 [facility] Absolute lymphocyte countOrd ered By: Dr. Villarreal on 09-07-2022 Lymphocytes Auto (Unsp spec) [#/Vol] 2.22 10*3/uL 0.83-4.51 [facility] Basophil percentageOrdered B y: Dr. Villarreal on 09-07-2022 Basophils/100 WBC (Bld) 0.5 % 0-1 [facility] Eosinophils/100 WBC (Bld) 0.2 % 0-5 [facility] Neutrophils (Bld) [#/Vol] 3.0 10*3/uL 2.0-7.7 [facility] Neutrophils/100 WBC (Bld) 52.5 % 47-70 [facility] WBC (Bld) [#/Vol] 5.8 10*3/uL 4.4-11.0 [facility] Blood erythrocytes count (nu mber/volume)Ordered By: Dr. Villarreal on 09-07-2022 RBC (Bld) [#/Vol] 4.19 10*6/uL 4.2-5.4 [facility] Blood hemoglobin measurement (mass/volume)Ordered By: Dr. Villarreal on 09-07-2022 Hemoglobin (Bld) [Mass/Vol] 12.6 g/dL 12.0-15.0 [facility] Blood lymphocytes/100 leukoc ytesOrdered By: Dr. Villarreal on 09-07-2022 Lymphocytes/100 WBC (Bld) 38.3 % 19-41 [facility] Blood monocytes/100 leukocyt esOrdered By: Dr. Villarreal on 09-07-2022 Monocytes/100 WBC (Bld) 8.3 % 0-10 [facility] Blood platelet mean volumeOr dered By: Dr. Villarreal on 09-07-2022 Platelet mean volume (Bld) [Entitic vol] 9.5 fL 6.2-12.0 [facility] Determination of erythrocyte mean corpuscular volume (MCV)Ordered By: Dr. Villarreal on 09-07-2022 MCV (RBC) [Entitic vol] 85.9 fL 81-99 [facility] Hematocrit Auto (Bld) [Volum e fraction]Ordered By: Dr. Villarreal on 09-07-2022 Hematocrit (Bld) [Volume fraction] 36.0 % 37-47 [facility] - Chemistry and C hemistry - challengeOrdered By: Dr. Rivero on 09-07-2022 HCG ( test) Ql (U) Negative [facility] Comment on above: Very dilute urine sp ecimens, as indicated by a low specificgravity, may not contain sales representative business courses levels of hCG. If is still suspected, a first morning urinespecimen should be collected 48 hours later and tested. Laboratory - Hematology and Cell countsOrdered By: Dr. Villarreal on 09-07-2022 Erythrocyte distribution width (RBC) [Entitic vol] 38.9 fL 35.1-43.9 [facility] Erythrocyte distribution width (RBC) [Ratio] 12.5 % 11.6-14.6 [facility] Immature granulocytes/100 WBC (Bld) 0.200 % 0.0-0.9 [facility] Comment on above: IG% - Immature Granu locytes (promyelocytes, myelocytes and metamyelocytes) > 1% indicates that a LEFT SHIFT is Present. MCH (RBC) [Entitic mass] 30.1 pg 27.0-32.0 [facility] Nucleated RBC/100 WBC (Bld) [Ratio] 0 % 0-5 [facility] MCHC Auto (RBC) [Mass/Vol]Or dered By: Dr. Villarreal on 09-07-2022 MCHC (RBC) [Mass/Vol] 35.0 g/dL 32-36 [facility] Platelets bldOrdered By: Dr. Villarreal on 09-07-2022 Platelets (Bld) [#/Vol] 377 10*3/uL 150-450 [facility] Laboratory - Chemistry and C hemistry - challengeon 07-08-2022 HCG ( test) Ql (U) Negative [facility] Basophil percentageOrdered B y: Dr. Villarreal on 06-23-2022 Bilirubin [Mass/Vol] 0.50 mg/dL 0.20-1.00 [facility] Comment on above: For patients on eltr ombopag therapy, use of Dimension Rogers TBIL is not recommended. Chloride [Moles/Vol] 103 mmol/L 98-107 [facility] Cholesterol [Mass/Vol] 178 mg/dL <200 [facility] Comment on above: <200 mg/dL Desirable 200-240 mg/dL Borderline >240 mg/dL High Risk Glucose [Mass/Vol] 93 mg/dL 74-106 [facility] Potassium [Moles/Vol] 3.8 mmol/L 3.5-5.1 [facility] Protein [Mass/Vol] 8.2 g/dL 6.4-8.2 [facility] Sodium [Moles/Vol] 141 mmol/L 136-145 [facility] Triglyceride [Mass/Vol] 89 mg/dL <199 [facility] Comment on above: The drugs N-Acetylcy steine and Metamizole may falsely depress this assay.Serum Triglycerides Reference Interval Normal <150 mg/dL Borderline high 150 - 199 mg/dL High 200 - 499 mg/dL Very High > or = 500 mg/dL Laboratory - Chemistry and C hemistry - challengeOrdered By: Dr. Villarreal on 06-23-2022 ALP [Catalytic activity/Vol] 62 U/L 45-117 [facility] ALT [Catalytic activity/Vol] 18 U/L 13-56 [facility] CO2 [Moles/Vol] 32.0 mmol/L 21.0-32.0 [facility] Globulin (S) [Mass/Vol] 3.7 g/dL 2.2-4.2 [facility] Urea nitrogen/Creatinine [Mass ratio] 14.8 mg/mg 10-20 [facility] Laboratory - Chemistry and C hemistry - challengeOrdered By: Dr. Parker on 06-23-2022 Free T4 [Mass/Vol] 1.16 ng/dL 0.76-1.46 [facility] No Panel InformationOrdered By: Dr. Villarreal on 06-23-2022 Estimated GFR (MDRD) Amer 130 mL/min >60 [facility] Comment on above: GFR Calc Estimated GFR (MDRD) Non-Af Amer 107 mL/min >60 [facility] Comment on above: Non- GFR Calc No Panel InformationOrdered By: Dr. Parker on 06-23-2022 Free Triiodothyronine (T3) pg/dL 2.7 pg/mL 2.18-3.98 [facility] Insulin Level 8.7 mU/L 2.6-37.6 [facility] Thyroid Stimulating Hormone (TSH) 0.72 uIU/mL 0.358-3.74 [facility] Vitamin D 25-Hydroxy 21.3 ng/mL [facility] Comment on above: Vitamin D 25(OH) Sta tus Range Deficiency <20 ng/mL (50nmol/L) Insufficiency 20 - 30 ng/mL (50 - 75 nmol/L) Sufficiency 30 - 100 ng/mL (75 - 250 nmol/L) Toxicity >100 ng/mL (>250 nmol/L) Serum or plasma albumin miranda urement (mass/volume)Ordered By: Dr. Villarreal on 06-23-2022 Albumin [Mass/Vol] 4.5 g/dL 3.2-5.0 [facility] Serum or plasma albumin/glob ulin mass ratioOrdered By: Dr. Villarreal on 06-23-2022 Albumin/Globulin [Mass ratio] 1.2 {ratio} 0.9-2.4 [facility] Serum or plasma calcium miranda urement (mass/volume)Ordered By: Dr. Villarreal on 06-23-2022 Calcium [Mass/Vol] 9.5 mg/dL 8.5-10.1 [facility] Serum or plasma cholesterol in HDL measurement (mass/volume)Ordered By: Dr. Villarreal on 06-23-2022 Cholesterol in HDL [Mass/Vol] 58 mg/dL >40 [facility] Comment on above: The drugs N-Acetylcy steine and Metamizole may falsely depress this assay. Reference Range HDL <40 mg/dL Low HDL Cholesterol HDL >or= 60 mg/dL High HDL Cholesterol Serum or plasma cholesterol in VLDL measurement (mass/volume)Ordered By: Dr. Villarreal on 06-23-2022 Cholesterol in VLDL [Mass/Vol] 18 mg/dL 5-40 [facility] Serum or plasma creatinine m easurement (mass/volume)Ordered By: Dr. Villarreal on 06-23-2022 Creatinine [Mass/Vol] 0.68 mg/dL 0.55-1.02 [facility] Comment on above: The validity of the calculated GFR & GFRAA in patients over 70 years has not been determined. Clinical correlation is essential. Serum or plasma low density lipoprotein (LDL) cholesterol measurement (mass/volume)Ordered By: Dr. Villarreal on 06-23-2022 Cholesterol in LDL [Mass/Vol] 102 mg/dL 0-130 [facility] Serum or plasma urea nitroge n measurement (mass/volume)Ordered By: Dr. Villarreal on 06-23-2022 Urea nitrogen [Mass/Vol] 10 mg/dL 7-18 [facility] Thin prep Papanicolaou smear with manual screeningOrdered By: Dr. Villarreal on 06-23-2022 Thin prep Papanicolaou smear with manual screening 10 U/L 15-37 [facility] Thin prep Papanicolaou smear with manual screening 6 5-15 [facility] Cervical or vagninal specime n microscopic examination by cytology stain (reported asOrdered By: Dr. Villarreal on 05-28-2022 Cytology report Cyto stain Doc (Cvx/Vag) Comment . [facility] Comment on above: The Pap smear is [...] 33,Ordered By: Dr. Villarreal on 05-28-2022 HPV 16+18+31+33+35+39+45+5 1+52+56+58+59+66+68 DNA Probe+sig amp Ql (Cvx) Positive Negative [facility] Comment on above: This nucleic acid am plification test detects fourteen high- risk HPV types (16,18,31,33,35,39,45,51,52,56,58,59,66,68)without differentiation. Laboratory - CytologyOrdered By: Dr. Villarreal on 05-28-2022 Oil Well Pumper Cyto stain Nom (Cvx/Vag) [ID] Comment . [facility] Comment on above: Yosi Brantley, Cyto technologist (ASCP) Pathologist Cyto stain Nom (Cvx/Vag) [ID] Comment . [facility] Comment on above: Allie Mena MD, P athologist Laboratory - Miscellaneous t estsOrdered By: Dr. Villarreal on 05-28-2022 Service comment (Unsp spec) [Interp] TNP [facility] Comment on above: Test not performedTh e Thin Prep(R) Ice Guard Tester was unable to read this specimen.Therefore a manual review was performed. Service comment (Unsp spec) [Interp] . . [facility] Liquid-based cerv Pap + CT/G C by MARSHA w reflex to high-risk HPV for ASCUSOrdered By: Dr. Villarreal on 05-28-2022 Cytology report Cyto stain.thin prep Doc (Cvx/Vag) Comment . [facility] Comment on above: Criteria not met, HP V Genotype not performed.Performed at: - [address] [id number] Director: Jana Roberson MD, Phone: [phone] at: =[facility] [id number] Director: Jana Roberson MD, Phone: [phone] No Panel InformationOrdered By: Dr. Villarreal on 05-28-2022 Pathology report final diagnosis Narrative Comment . [facility] Comment on above: EPITHELIAL CELL ABNO RMALITY.ATYPICAL SQUAMOUS CELLS OF UNDETERMINED SIGNIFICANCE (ASC-US). R87.610 Basophil percentageOrdered B y: Dr. Villarreal on 04-19-2022 Cholesterol [Mass/Vol] 200 mg/dL <200 [facility] Comment on above: <200 mg/dL Desirable 200-240 mg/dL Borderline >240 mg/dL High Risk Triglyceride [Mass/Vol] 76 mg/dL <199 [facility] Comment on above: The drugs N-Acetylcy steine and Metamizole may falsely depress this assay.Serum Triglycerides Reference Interval Normal <150 mg/dL Borderline high 150 - 199 mg/dL High 200 - 499 mg/dL Very High > or = 500 mg/dL Serum or plasma cholesterol in HDL measurement (mass/volume)Ordered By: Dr. Villarreal on 04-19-2022 Cholesterol in HDL [Mass/Vol] 65 mg/dL >40 [facility] Comment on above: The drugs N-Acetylcy steine and Metamizole may falsely depress this assay. Reference Range HDL <40 mg/dL Low HDL Cholesterol HDL >or= 60 mg/dL High HDL Cholesterol Serum or plasma cholesterol in VLDL measurement (mass/volume)Ordered By: Dr. Villarreal on 04-19-2022 Cholesterol in VLDL [Mass/Vol] 15 mg/dL 5-40 [facility] Serum or plasma low density lipoprotein (LDL) cholesterol measurement (mass/volume)Ordered By: Dr. Villarreal on 04-19-2022 Cholesterol in LDL [Mass/Vol] 120 mg/dL 0-130 [facility] Whole blood hemoglobin A1c/t otal hemoglobin ratio (mass fraction)Ordered By: Dr. Villarreal on 04-19-2022 HbA1c (Bld) [Mass fraction] 5.0 % 3.8-5.6 [facility] Comment on above: Normal < 5.7 % Predi abetic 5.7 - 6.4 % Diabetic >or= 6.5 % Please note range changes. Absolute lymphocyte counton 11-15-2021 Lymphocytes Auto (Unsp spec) [#/Vol] 2.97 10*3/uL 0.83-4.51 [facility] Work Phone: Basophil percentageon 2021 Basophils/100 WBC (Bld) 0.4 % 0-1 [facility] Work Phone: Bilirubin [Mass/Vol] 0.30 mg/dL 0.20-1.00 [facility] Work Phone: Comment on above: For patients on eltr ombopag therapy, use of Dimension Rogers TBIL is not recommended. Chloride [Moles/Vol] 105 mmol/L 98-107 [facility] Work Phone: Eosinophils/100 WBC (Bld) 0.6 % 0-5 [facility] Work Phone: Glucose [Mass/Vol] 114 mg/dL 74-106 [facility] Work Phone: Comment on above: Fasting Glucose resu lt from 100 to 125 mg/dL suggests IMPAIRED HOMEOSTASIS per A.D.A. criteria. Neutrophils (Bld) [#/Vol] 1.6 10*3/uL 2.0-7.7 [facility] Work Phone: Neutrophils/100 WBC (Bld) 31.2 % 47-70 [facility] Work Phone: Potassium [Moles/Vol] 3.5 mmol/L 3.5-5.1 [facility] Work Phone: Protein [Mass/Vol] 7.7 g/dL 6.4-8.2 [facility] Work Phone: Sodium [Moles/Vol] 139 mmol/L 136-145 [facility] Work Phone: WBC (Bld) [#/Vol] 5.0 10*3/uL 4.4-11.0 [facility] Work Phone: Beta hCG serum qualon 2021 Beta HCG ( test) Ql Negative [facility] Work Phone: Blood erythrocytes count (nu mber/volume)on 11-15-2021 RBC (Bld) [#/Vol] 4.48 10*6/uL 4.2-5.4 [facility] Work Phone: Blood hemoglobin measurement (mass/volume)on 11-15-2021 Hemoglobin (Bld) [Mass/Vol] 13.0 g/dL 12.0-15.0 [facility] Work Phone: Blood lymphocytes/100 leukoc yteson 11-15-2021 Lymphocytes/100 WBC (Bld) 59.4 % 19-41 [facility] Work Phone: Blood monocytes/100 leukocyt eson 11-15-2021 Monocytes/100 WBC (Bld) 8.4 % 0-10 [facility] Work Phone: [phone] Blood platelet mean volumeon 11-15-2021 Platelet mean volume (Bld) [Entitic vol] 9.2 fL 6.2-12.0 [facility] Work Phone: [phone] Determination of erythrocyte mean corpuscular volume (MCV)on 11-15-2021 MCV (RBC) [Entitic vol] 84.4 fL 81-99 [facility] Work Phone: [phone] Direct bilirubinon Bilirubin.direct [Mass/Vol] 0.09 mg/dL 0.00-0.30 [facility] Work Phone: [phone] Hematocrit Auto (Bld) [Volum e fraction]on 11-15-2021 Hematocrit (Bld) [Volume fraction] 37.8 % 37-47 [facility] Work Phone: [phone] Laboratory - Chemistry and C hemistry - challengeon 11-15-2021 ALP [Catalytic activity/Vol] 65 U/L 45-117 [facility] Work Phone: [phone] ALT [Catalytic activity/Vol] 29 U/L 13-56 [facility] Work Phone: [phone] CO2 [Moles/Vol] 26.0 mmol/L 21.0-32.0 [facility] Work Phone: [phone] Globulin (S) [Mass/Vol] 3.5 g/dL 2.2-4.2 [facility] Work Phone: [phone] Urea nitrogen/Creatinine [Mass ratio] 12.0 mg/mg 10-20 [facility] Work Phone: [phone] Laboratory - Hematology and Cell countson 11-15-2021 Erythrocyte distribution width (RBC) [Entitic vol] 36.5 fL 35.1-43.9 [facility] Work Phone: [phone] Erythrocyte distribution width (RBC) [Ratio] 11.9 % 11.6-14.6 [facility] Work Phone: [phone] Immature granulocytes/100 WBC (Bld) 0.000 % 0.0-0.9 [facility] Work Phone: Comment on above: IG% - Immature Granu locytes (promyelocytes, myelocytes and metamyelocytes) > 1% indicates that a LEFT SHIFT is Present. MCH (RBC) [Entitic mass] 29.0 pg 27.0-32.0 [facility] Work Phone: [phone] Nucleated RBC/100 WBC (Bld) [Ratio] 0 % 0-5 [facility] Work Phone: [phone] MCHC Auto (RBC) [Mass/Vol]on 11-15-2021 MCHC (RBC) [Mass/Vol] 34.4 g/dL 32-36 [facility] Work Phone: [phone] Panel Informationon 11-15 D-Dimer Quantitative (PE/DVT) < 0.27 FEU/ug/m 0.27-0.49 [facility] Work Phone: Comment on above: NORMAL D-Dimer level (<0.50) indicates no DVT or PE. Estimated Creatinine Clearance Calc 70.07 ml/min [facility] Work Phone: [phone] Estimated GFR (MDRD) Amer 92 mL/min >60 [facility] Work Phone: [phone] Comment on above: GFR Calc Estimated GFR (MDRD) Non-Af Amer 76 mL/min >60 [facility] Work Phone: [phone] Comment on above: Non- GFR Calc Troponin I High Sensitivity < 3 pg/mL 3.0-54.0 [facility] Work Phone: [phone] Comment on above: Please Note: New Trupti t Units and Gender Specific Reference Ranges. For more information see Policy Stat Procedure Rogers High Sensitivity Troponin (TNIH) and attachments. Platelets bldon 11-15-2021 Platelets (Bld) [#/Vol] 367 10*3/uL 150-450 [facility] Work Phone: [phone] Serum or plasma albumin miranda urement (mass/volume)on 11-15-2021 Albumin [Mass/Vol] 4.2 g/dL 3.2-5.0 [facility] Work Phone: [phone] Serum or plasma calcium miranda urement (mass/volume)on 11-15-2021 Calcium [Mass/Vol] 9.6 mg/dL 8.5-10.1 [facility] Work Phone: Serum or plasma creatinine m easurement (mass/volume)on 11-15-2021 Creatinine [Mass/Vol] 0.92 mg/dL 0.55-1.02 [facility] Work Phone: Comment on above: The validity of the calculated GFR & GFRAA in patients over 70 years has not been determined. Clinical correlation is essential. Serum or plasma urea nitroge n measurement (mass/volume)on 11-15-2021 Urea nitrogen [Mass/Vol] 11 mg/dL 7-18 [facility] Work Phone: Thin prep Papanicolaou smear with manual screeningon 11-15-2021 Thin prep Papanicolaou smear with manual screening 13 U/L 15-37 [facility] Work Phone: Thin prep Papanicolaou smear with manual screening 8 5-15 [facility] Work Phone: Laboratory - Microbiology an d Antimicrobial susceptibilityon 11-10-2021 SARS-CoV-2 (COVID-19) RNA MARSHA+probe Ql (Unsp spec) Detected Not Detect [facility] Work Phone: Comment on above: Normal Reference [...] pyogenes Ag IA Ql (Unsp spec) Negative [facility] Work Phone: Vitamin B1,Whole Bloodon Vitamin B1,Whole Blood 94 nmol/L Normal 70-180 [facility] Comment on above: Result Comment: INTE RPRETIVE INFORMATION: Vitamin B1, Whole Blood This assay measures the concentration of thiamine diphosphate (TDP), the primary active form of vitamin B1. Approximately 90 percent of vitamin B1 present in whole blood is TDP. Thiamine and thiamine monophosphate, which comprise the remaining 10 percent, are not measured. This test was developed and its performance characteristics determined by [facility]. It has not been cleared or approved by the [place] Food and Drug Administration. This test was performed in a CLIA certified laboratory and is intended for clinical purposes. Performed By: [facility] [address] [place] [address] Cashier: Elisha Christine MD Performed By: #### H A1C2, TSH5, B12, HEMOG, IRON3, FERR3, FOLT3, LIPD2, CMP3, MG3 #### [facility] [address] [place] [address] #### ZINC2, WBB1O #### The performing lab is in the report. #### VD25H #### [facility] [address] [place] [address] Zinc, Serumon 06-23-2021 Zinc, Serum 83.2 ug/dL Normal 60.0-120.0 [facility] Comment on above: Result Comment: INTE [...] developed and its performance characteristics determined by [facility]. It has not been cleared or approved by the [place] Food and Drug Administration. This test was performed in a CLIA certified laboratory and is intended for clinical purposes. Performed By: [facility] [employer] [address] [place] [address] Cashier: Elisha Christine MD Performed By: #### H A1C2, TSH5, B12, HEMOG, IRON3, FERR3, FOLT3, LIPD2, CMP3, MG3 #### [facility] [address] [place] [address] #### ZINC2, WBB1O #### The performing lab is in the report. #### VD25H #### [facility] [address] [place] [address] Comp Metabolic Panelon 06-19 ALT [Catalytic activity/Vol] 19 U/L Normal 0-34 [facility] Comment on above: Result Comment: The ALT test is performed by an updated assay method. Please note that the reference intervals have been changed and are now sex specific. Performed By: #### H A1C2, TSH5, B12, HEMOG, IRON3, FERR3, FOLT3, LIPD2, CMP3, MG3 #### [facility] [address] [place] [address] #### ZINC2, WBB1O #### The performing lab is in the report. #### VD25H #### [facility] [address] [place] [address] Calcium [Mass/Vol] 9.4 mg/dL Normal 8.4-10.4 [facility] Comment on above: Performed By: #### H A1C2, TSH5, B12, HEMOG, IRON3, FERR3, FOLT3, LIPD2, CMP3, MG3 #### [facility] [address] [place] [address] #### ZINC2, WBB1O #### The performing lab is in the report. #### VD25H #### [facility] [address] [place] [address] ALP [Catalytic activity/Vol] 63 U/L Normal 38-126 [facility] Comment on above: Performed By: #### H A1C2, TSH5, B12, HEMOG, IRON3, FERR3, FOLT3, LIPD2, CMP3, MG3 #### [facility] [address] [place] [address] #### ZINC2, WBB1O #### The performing lab is in the report. #### VD25H #### [facility] [address] [place] [address] Anion gap [Moles/Vol] 4 mmol/L Normal 3-13 [facility] Comment on above: Performed By: #### H A1C2, TSH5, B12, HEMOG, IRON3, FERR3, FOLT3, LIPD2, CMP3, MG3 #### [facility] [address] [place] [address] #### ZINC2, WBB1O #### The performing lab is in the report. #### VD25H #### [place] [address] [place] [address] AST [Catalytic activity/Vol] 26 U/L Normal 15-46 [facility] Comment on above: Performed By: #### H A1C2, TSH5, B12, HEMOG, IRON3, FERR3, FOLT3, LIPD2, CMP3, MG3 #### [address] [place] [address] #### ZINC2, WBB1O #### The performing lab is in the report. #### VD25H #### [place] [address] [place] [address] Bilirubin [Mass/Vol] 0.3 mg/dL Normal 0.2-1.3 [facility] Comment on above: Performed By: #### H A1C2, TSH5, B12, HEMOG, IRON3, FERR3, FOLT3, LIPD2, CMP3, MG3 #### [facility] [address] [place] [address] #### ZINC2, WBB1O #### The performing lab is in the report. #### VD25H #### [place] [address] [place] [address] CO2 [Moles/Vol] 27 mmol/L Normal 22-30 [facility] Comment on above: Performed By: #### H A1C2, TSH5, B12, HEMOG, IRON3, FERR3, FOLT3, LIPD2, CMP3, MG3 #### [facility] [address] [place] [address] #### ZINC2, WBB1O #### The performing lab is in the report. #### VD25H #### [facility] [address] [place] [address] Creatinine [Mass/Vol] 0.60 mg/dL Normal 0.52-1.25 [facility] Comment on above: Performed By: #### H A1C2, TSH5, B12, HEMOG, IRON3, FERR3, FOLT3, LIPD2, CMP3, MG3 #### [facility] [address] [place] [address] #### ZINC2, WBB1O #### The performing lab is in the report. #### VD25H #### [facility] [address] [place] [address] eGFR OTHER > 90.0 Normal >60 [facility] Comment on above: Result Comment: KDIG O [...] IRON3, FERR3, FOLT3, LIPD2, CMP3, MG3 #### [facility] [address] [place] [address] #### ZINC2, WBB1O #### The performing lab is in the report. #### VD25H #### [facility] [address] [place] [address] GFR/1.73 sq M.predicted among blacks MDRD (S/P/Bld) [Vol rate/Area] mL/min/{1.73_m2} Normal >60 [facility] Comment on above: Performed By: #### H A1C2, TSH5, B12, HEMOG, IRON3, FERR3, FOLT3, LIPD2, CMP3, MG3 #### [facility] [address] [place] [address] #### ZINC2, WBB1O #### The performing lab is in the report. #### VD25H #### [facility] [address] [place] [address] Glucose [Mass/Vol] 100 mg/dL Normal 70-100 [facility] Comment on above: Performed By: #### H A1C2, TSH5, B12, HEMOG, IRON3, FERR3, FOLT3, LIPD2, CMP3, MG3 #### [facility] [address] [place] [address] #### ZINC2, WBB1O #### The performing lab is in the report. #### VD25H #### [facility] [address] [place] [address] Protein [Mass/Vol] 7.6 g/dL Normal 6.3-8.2 [facility] Comment on above: Performed By: #### H A1C2, TSH5, B12, HEMOG, IRON3, FERR3, FOLT3, LIPD2, CMP3, MG3 #### [facility] [address] [place] [address] #### ZINC2, WBB1O #### The performing lab is in the report. #### VD25H #### [facility] [address] [place] [address] Urea nitrogen [Mass/Vol] 12 mg/dL Normal 9-20 [facility] Comment on above: Performed By: #### H A1C2, TSH5, B12, HEMOG, IRON3, FERR3, FOLT3, LIPD2, CMP3, MG3 #### [facility] [address] [place] [address] #### ZINC2, WBB1O #### The performing lab is in the report. #### VD25H #### [facility] [address] [place] [address] Potassium [Moles/Vol] 4.8 mmol/L Normal 3.5-5.1 [facility] Comment on above: Performed By: #### H A1C2, TSH5, B12, HEMOG, IRON3, FERR3, FOLT3, LIPD2, CMP3, MG3 #### [facility] [address] [place] [address] #### ZINC2, WBB1O #### The performing lab is in the report. #### VD25H #### [place] [address] [place] [address] Sodium [Moles/Vol] 139 mmol/L Normal 135-145 [facility] Comment on above: Performed By: #### H A1C2, TSH5, B12, HEMOG, IRON3, FERR3, FOLT3, LIPD2, CMP3, MG3 #### [facility] [address] [place] [address] #### ZINC2, WBB1O #### The performing lab is in the report. #### VD25H #### [facility] [address] [place] [address] Albumin [Mass/Vol] 4.5 g/dL Normal 3.5-5.0 [facility] Comment on above: Performed By: #### H A1C2, TSH5, B12, HEMOG, IRON3, FERR3, FOLT3, LIPD2, CMP3, MG3 #### [facility] [address] [place] [address] #### ZINC2, WBB1O #### The performing lab is in the report. #### VD25H #### [place] [address] [address] Chloride [Moles/Vol] 108 mmol/L High 98-107 [facility] Comment on above: Performed By: #### H A1C2, TSH5, B12, HEMOG, IRON3, FERR3, FOLT3, LIPD2, CMP3, MG3 #### [facility] [address] [place] [address] #### ZINC2, WBB1O #### The performing lab is in the report. #### VD25H #### [facility] [address] [place] [address] Ferritinon 06-19-2021 Ferritin [Mass/Vol] 13 ng/mL Normal 6-137 [facility] Comment on above: Performed By: #### H A1C2, TSH5, B12, HEMOG, IRON3, FERR3, FOLT3, LIPD2, CMP3, MG3 #### [facility] [address] [place] [address] #### ZINC2, WBB1O #### The performing lab is in the report. #### VD25H #### [facility] [address] [address] Folateon 06-19-2021 Folate 12.8 ng/mL Normal [facility] Comment on above: Result Comment: >2.8 Performed By: #### H A1C2, TSH5, B12, HEMOG, IRON3, FERR3, FOLT3, LIPD2, CMP3, MG3 #### [facility] [address] [place] [address] #### ZINC2, WBB1O #### The performing lab is in the report. #### VD25H #### [facility] [address] [address] Hemoglobin A1Con 06-19-2021 Glucose [Mass/Vol] 97 mg/dL Normal [facility] Comment on above: Performed By: #### H A1C2, TSH5, B12, HEMOG, IRON3, FERR3, FOLT3, LIPD2, CMP3, MG3 #### [facility] [address] [place] [address] #### ZINC2, WBB1O #### The performing lab is in the report. #### VD25H #### [address] [address] HbA1c (Bld) [Mass fraction] 5.0 % Normal [facility] Comment on above: Result Comment: Norm al less than 5.7% Prediabetes 5.7% to 6.4% Diabetes 6.5% or higher --HgbA1C levels may not be accurate in patients who have renal disease, received recent blood transfusions, are anemic, or who have dyshemoglobinemia. Performed By: #### H A1C2, TSH5, B12, HEMOG, IRON3, FERR3, FOLT3, LIPD2, CMP3, MG3 #### [facility] [address] [place] [address] #### ZINC2, WBB1O #### The performing lab is in the report. #### VD25H #### [address] [place] [address] Hemogramon 06-19-2021 Erythrocyte distribution width (RBC) [Ratio] 13.0 % Normal 11.5-14.5 [facility] Comment on above: Performed By: #### H A1C2, TSH5, B12, HEMOG, IRON3, FERR3, FOLT3, LIPD2, CMP3, MG3 #### [facility] [address] [place] [address] #### ZINC2, WBB1O #### The performing lab is in the report. #### VD25H #### [address] [place] [address] Hematocrit (Bld) [Volume fraction] 35.8 % Normal 35.0-47.0 [facility] Comment on above: Performed By: #### H A1C2, TSH5, B12, HEMOG, IRON3, FERR3, FOLT3, LIPD2, CMP3, MG3 #### [facility] [address] [place] [address] #### ZINC2, WBB1O #### The performing lab is in the report. #### VD25H #### [address] [place] [address] Hemoglobin (Bld) [Mass/Vol] 12.3 g/dL Normal 11.7-16.0 [facility] Comment on above: Performed By: #### H A1C2, TSH5, B12, HEMOG, IRON3, FERR3, FOLT3, LIPD2, CMP3, MG3 #### [facility] [address] [place] [address] #### ZINC2, WBB1O #### The performing lab is in the report. #### VD25H #### [facility] [address] [place] [address] MCH (RBC) [Entitic mass] 28.8 pg Normal 26.0-34.0 [facility] Comment on above: Performed By: #### H A1C2, TSH5, B12, HEMOG, IRON3, FERR3, FOLT3, LIPD2, CMP3, MG3 #### [facility] [address] [place] [address] #### ZINC2, WBB1O #### The performing lab is in the report. #### VD25H #### [facility] [address] [place] [address] MCHC 34.2 % Normal 32.0-36.0 [facility] Comment on above: Performed By: #### H A1C2, TSH5, B12, HEMOG, IRON3, FERR3, FOLT3, LIPD2, CMP3, MG3 #### [facility] [address] [place] [address] #### ZINC2, WBB1O #### The performing lab is in the report. #### VD25H #### [facility] [address] [place] [address] MCV (RBC) [Entitic vol] 84.1 fL Normal 79.0-98.0 [facility] Comment on above: Performed By: #### H A1C2, TSH5, B12, HEMOG, IRON3, FERR3, FOLT3, LIPD2, CMP3, MG3 #### [facility] [address] [place] [address] #### ZINC2, WBB1O #### The performing lab is in the report. #### VD25H #### [facility] [address] [place] [address] Platelet mean volume (Bld) [Entitic vol] 7.4 fL Normal 7.4-10.4 [facility] Comment on above: Performed By: #### H A1C2, TSH5, B12, HEMOG, IRON3, FERR3, FOLT3, LIPD2, CMP3, MG3 #### [facility] [address] [place] [address] #### ZINC2, WBB1O #### The performing lab is in the report. #### VD25H #### [facility] [address] [place] [address] Platelets (Bld) [#/Vol] 356 10*3/uL Normal 140-440 [facility] Comment on above: Performed By: #### H A1C2, TSH5, B12, HEMOG, IRON3, FERR3, FOLT3, LIPD2, CMP3, MG3 #### [facility] [address] [place] [address] #### ZINC2, WBB1O #### The performing lab is in the report. #### VD25H #### [facility] [address] [place] [address] RBC (Bld) [#/Vol] 4.26 10*6/uL Normal 3.80-5.20 [facility] Comment on above: Performed By: #### H A1C2, TSH5, B12, HEMOG, IRON3, FERR3, FOLT3, LIPD2, CMP3, MG3 #### [facility] [address] [place] [address] #### ZINC2, WBB1O #### The performing lab is in the report. #### VD25H #### [facility] [address] [place] [address] WBC (Bld) [#/Vol] 4.2 10*3/uL Normal 3.6-10.7 [facility] Comment on above: Performed By: #### H A1C2, TSH5, B12, HEMOG, IRON3, FERR3, FOLT3, LIPD2, CMP3, MG3 #### [facility] [address] [place] [address] #### ZINC2, WBB1O #### The performing lab is in the report. #### VD25H #### [facility] [address] [place] [address] Iron, Totalon 06-19-2021 Iron, Total 70 ug/dL Normal 37-170 [facility] Comment on above: Performed By: #### H A1C2, TSH5, B12, HEMOG, IRON3, FERR3, FOLT3, LIPD2, CMP3, MG3 #### [facility] [address] [place] [address] #### ZINC2, WBB1O #### The performing lab is in the report. #### VD25H #### [facility] [address] [place] [address] Lipid Panelon 06-19-2021 Chol/HDL 3 Normal [facility] Comment on above: Result Comment: Ref Range: < 3 Low Risk for CHD 3-6 Mod Risk for CHD > 6 High Risk for CHD Performed By: #### H A1C2, TSH5, B12, HEMOG, IRON3, FERR3, FOLT3, LIPD2, CMP3, MG3 #### [facility] [address] [facility] [place] [address] #### ZINC2, WBB1O #### The performing lab is in the report. #### VD25H #### [facility] [address] [place] [address] Cholesterol in HDL [Mass/Vol] 68 mg/dL High 40-60 [facility] Comment on above: Performed By: #### H A1C2, TSH5, B12, HEMOG, IRON3, FERR3, FOLT3, LIPD2, CMP3, MG3 #### [facility] [address] [place] [address] #### ZINC2, WBB1O #### The performing lab is in the report. #### VD25H #### [facility] [address] [place] [address] Low Density Lipoprotein 132 mg/dL Abnormal <100 [facility] Comment on above: Performed By: #### H A1C2, TSH5, B12, HEMOG, IRON3, FERR3, FOLT3, LIPD2, CMP3, MG3 #### [facility] [address] [facility] [place] [address] #### ZINC2, WBB1O #### The performing lab is in the report. #### VD25H #### [facility] [address] [place] [address] Triglyceride [Mass/Vol] 67 mg/dL Normal <150 [facility] Comment on above: Performed By: #### H A1C2, TSH5, B12, HEMOG, IRON3, FERR3, FOLT3, LIPD2, CMP3, MG3 #### [facility] [address] [facility] [place] [address] #### ZINC2, WBB1O #### The performing lab is in the report. #### VD25H #### [address] [place] [address] Cholesterol [Mass/Vol] 213 mg/dL Abnormal < 200 [facility] Comment on above: Performed By: #### H A1C2, TSH5, B12, HEMOG, IRON3, FERR3, FOLT3, LIPD2, CMP3, MG3 #### [facility] [address] [facility] [address] [place] [address] #### ZINC2, WBB1O #### The performing lab is in the report. #### VD25H #### [facility] [address] [facility] [address] Magnesiumon 06-19-2021 Magnesium [Mass/Vol] 1.9 mg/dL Normal 1.6-2.3 [facility] Comment on above: Performed By: #### H A1C2, TSH5, B12, HEMOG, IRON3, FERR3, FOLT3, LIPD2, CMP3, MG3 #### [facility] [address] [place] [address] #### ZINC2, WBB1O #### The performing lab is in the report. #### VD25H #### [facility] [address] [place] [address] Thyroid Stim. Hormoneon 05-24 Thyroid Stim. Hormone 0.799 u[IU]/mL Normal 0.46 5-4.68 0 [facility] Comment on above: Performed By: #### H A1C2, TSH5, B12, HEMOG, IRON3, FERR3, FOLT3, LIPD2, CMP3, MG3 #### [facility] [address] [place] [address] #### ZINC2, WBB1O #### The performing lab is in the report. #### VD25H #### [facility] [address] [place] [address] Vit D 25-OH, Totalon 022 Vit D 25-OH, Total 38 ng/mL Normal 30-100 [facility] Comment on above: Result Comment: Ther apy is based on measurement of Total 25- OHD with the following classification levels: Less than 20 ng/mL: Indicative of Vit D deficiency 20-30 ng/mL: Suggests Vit D insufficiency Optimal: Greater than or equal to 30 ng/mL Test performed by [employer] Competitive Immunoassay, measuring Total Vitamin D, not individual fractions. Performed By: #### H A1C2, TSH5, B12, HEMOG, IRON3, FERR3, FOLT3, LIPD2, CMP3, MG3 #### [facility] [address] [place] [address] #### ZINC2, WBB1O #### The performing lab is in the report. #### VD25H #### [facility] [address] [place] [address] Vitamin B12on 06-19-2021 Cobalamin (Vitamin B12) [Mass/Vol] 505 pg/mL Normal 239-931 [facility] Comment on above: Performed By: #### H A1C2, TSH5, B12, HEMOG, IRON3, FERR3, FOLT3, LIPD2, CMP3, MG3 #### [facility] [address] [place] [address] #### ZINC2, WBB1O #### The performing lab is in the report. #### VD25H #### [facility] [address] [place] [address] US Abdomen Completeon 2021 US Abdomen Complete Patient Name: DARI APARICIO Ultrasound ACCESSION EXAM DATE/TIME PROCEDURE ORDERING PROVIDER [id number] 06/15/2021 11:20 EST US Abdomen Complete [id number] -DANILOJANEHAYES CPT code 15441 Reason For Exam (US Abdomen Complete) Abdominal Pain Report ULTRASOUND COMPLETE ABDOMEN CLINICAL INDICATION: Preoperative exam TECHNIQUE: Ultrasound of the complete abdomen COMPARISON: None FINDINGS: Liver: Generalized increased hepatic echogenicity likely corresponding to hepatic steatosis. Normal size and contour. No focal lesion identified. Gallbladder: Normal. No pericholecystic inflammatory change. Negative sonographic Rausch sign reported by the lab technologist. Bile ducts: No intrahepatic and extrahepatic [...] Transcribed Date and Time: 06/15/2021 11:42 Normal [facility] [place] ARTHR/ASP/INJ MAJOR JT/BU RSA RT WO USon 04-30-2020 Patient Name: DARI APARICIO Fluoroscopy ACCESSION EXAM DATE/TIME PROCEDURE ORDERING PROVIDER [id number] 04/30/2020 09:57 EST RF Arthrogram Aspir Inj MD ANGUS, JOY Juarez Right RISTE CPT code [id number] Reason For Exam (RF Arthrogram Aspir Inj [...] Dictated: 04/30/2020 3:01 pm Dictating Physician: MD BURGSO KRIKOR Signed Date and Time: 04/30/2020 3:01 pm Signed by: MD BURGOS KRIKOR Transcribed Date and Time: 04/30/2020 3:01 [facility] [place] Incoming Radiology Results From [facility] - 04/30/2020 3:02 PM EST Patient Name: DARI APARICIO Fluoroscopy ACCESSION EXAM DATE/TIME PROCEDURE ORDERING PROVIDER [id number] 04/30/2020 09:57 EST RF Arthrogram Aspir Inj MD ANGUS, JOY Blair Jt Right RISTE CPT code [id number] Reason For Exam (RF Arthrogram Aspir Inj [...] KRIKOR Transcribed Date and Time: 04/30/2020 3:01 [place], [place] MRI Low Ext Joint w/ Contras t Righton 04-30-2020 MRI Low Ext Joint w/ Contrast Right [id number] ACCESSION EXAM DATE/TIME PROCEDURE ORDERING PROVIDER [id number] 04/30/2020 10:39 EST MRI Low Ext Joint w/ MD POOLE JOVAN Contrast Right RISTE CPT code 71392 Reason For Exam (MRI Low Ext Joint [...] Transcribed Date and Time: 04/30/2020 3:03 Normal [facility] MRI Lower Extremity Right W JT W Contraston 04-30-2020 [id number] Resonance Imaging ACCESSION EXAM DATE/TIME PROCEDURE ORDERING PROVIDER [id number] 04/30/2020 10:39 EST MRI Low Ext Joint w/ MD POOLE JOVAN Contrast Right RISTE CPT code 97307 Reason For Exam (MRI Low Ext Joint [...] KRIKOR Transcribed Date and Time: 04/30/2020 [facility]03 [facility] - 04/30/2020 3:10 PM EST Patient Name: DARI APARICIO Magnetic Resonance Imaging ACCESSION EXAM DATE/TIME PROCEDURE ORDERING PROVIDER [id number] 04/30/2020 10:39 EST MRI Low Ext Joint w/ MD ANGUS, JOY Contrast Right RISTE CPT code 00357 Reason For Exam (MRI Low Ext Joint [...] KRIKOR Transcribed Date and Time: 04/30/2020 3:03 [place], [place] RF Arthrogram Aspir Inj Blair Jt Righton 04-30-2020 RF Arthrogram Aspir Inj Blair Jt Right Patient Name: DARI APARICIO Fluoroscopy ACCESSION EXAM DATE/TIME PROCEDURE ORDERING PROVIDER [id number] 04/30/2020 09:57 EST RF Arthrogram Aspir Inj MD ANGUS, JOY Blair Jt Right RISTE CPT code 45431 [id number] Reason For Exam (RF Arthrogram Aspir Inj [...] Transcribed Date and Time: 04/30/2020 3:01 Normal [facility] Progress Noteon 02-05-2020 Form Coverer Authentication Interface Message Text DIABETES AND PROGRAM [...] MEAL BD INSULIN SYRINGE U/F 31G X 5/16" 0.5 ML MISC use as directed once daily Njtlwr-ZkCpi-GhJekEr-FA-Om ega (OB COMPLETE PETITE) 35-5-1-200 MG CAPS gummies [...] Cervical length screening echocardiogram DELIVERY PLAN Hospital: [place] Repeat CD at 39 weeks or sooner if indicated. 02/[address] Lang at [place] GBS culture:per OB Contraception: per primary OB [...] was spent counseling and coordinating care. Normal [facility] Progress Noteon 01-15-2020 Form Coverer Authentication Interface Message Text DIABETES AND PROGRAM COMANAGEMENT Referring/Requesting Provider: zAucena Cadena MD PCP: Juan Alfaro MD CHIEF [...] APRN-CNP Medication Sig Dispense Refill nitrofurantoin monohydrate (OCIS7UTE) 100 MG capsule 100 mg At bedtime ONE TOUCH ULTRA TEST test strip use as directed FASTING AND 2 HOURS AFTER EACH MEAL BD INSULIN SYRINGE U/F 31G X 5/16" 0.5 ML MISC use as directed once daily Ahfaxc-HuDmo-WgIlaVe-FA-Om ega (OB COMPLETE PETITE) 35-5-1-200 MG CAPS gummies [...] Cervical length screening echocardiogram DELIVERY PLAN Hospital: [place] Repeat CD at 39 weeks or sooner if indicated. 02/[address] Lang at [place] GBS culture:per OB Contraception: per primary OB [...] was spent counseling and coordinating care. Normal [facility] Progress Noteon 12-28-2019 Form Coverer Authentication Interface Message Text DIABETES AND PROGRAM COMANAGEMENT Referring/Requesting Provider: Afsaneh Snow APRN-* PCP: Juan Alfaro MD CHIEF COMPLAINT: T2DM [...] MD Medication Sig Dispense Refill nitrofurantoin monohydrate (LMJB6IHB) 100 MG capsule 100 mg At bedtime ARTEMIO 275 MG/1.1ML SOAJ Injection Inject 275 mg into the muscle once a week ONE TOUCH ULTRA TEST test strip use as directed FASTING AND 2 HOURS AFTER EACH MEAL BD INSULIN SYRINGE U/F 31G X 5/16" 0.5 ML MISC use as directed once daily Fifaxc-PnBjk-InVhbJn-FA-Om ega (OB COMPLETE PETITE) 35-5-1-200 MG CAPS gummies [...] Cervical length screening echocardiogram DELIVERY PLAN Hospital: [place] (Patient prefers [place] with [facility] since Dr. Cadena is out of [...] upcoming visit- she may request delivery in [place]. Confirmed desire to deliver at [facility], plan for WYATT at 36 weeks [...] was spent counseling and coordinating care. Normal [facility] Progress Noteon 12-12-2019 Form Coverer Authentication Interface Message Text DIABETES AND PROGRAM [...] MEAL BD INSULIN SYRINGE U/F 31G X 5/16" 0.5 ML MISC use as directed once daily Xrpory-BhDyp-XvElxQe-FA-Om ega (OB COMPLETE PETITE) 35-5-1-200 MG CAPS gummies [...] Cervical length screening echocardiogram DELIVERY PLAN Hospital: [place] (Patient prefers [place] delivery with [facility] since Dr. Cadena is out of town) [...] upcoming visit- she may request delivery in [place]. Confirmed desire to deliver at [facility], plan for WYATT at 36 weeks [...] was spent counseling and coordinating care. Normal [facility] Progress Noteon 11-30-2019 Form Coverer Authentication Interface Message Text DIABETES AND PROGRAM [...] for the 11/30/19 encounter (Office Visit) with Aquiles Escobar MD Medication Sig Dispense Refill cyclobenzaprine (FLEXERIL) 10 MG tablet Take by mouth 3 times daily as needed for Muscle spasms For round ligament pain ARTEMIO 275 MG/1.1ML SOAJ Injection Inject 275 mg into the muscle once a week ONE TOUCH ULTRA TEST test strip use as directed FASTING AND 2 HOURS AFTER EACH MEAL BD INSULIN SYRINGE U/F 31G X 5/16" 0.5 ML MISC use as directed once daily Aohnkg-XzDen-YtBydRx-FA-Om ega (OB COMPLETE PETITE) 35-5-1-200 MG CAPS gummies [...] Cervical length screening echocardiogram DELIVERY PLAN Hospital: [place] (Patient prefers [place] delivery with [facility] since Dr. Cadena is out of town) [...] upcoming visit- she may request delivery in [place]. History of delivery 02/01/2019 labor precautions discussed. Continue 17 OHP Follow up in 2 weeks. The total patient time of the visit was 45 minutes, of which was greater than 50% of the time was spent counseling and coordinating care. Normal [facility] Progress Noteon 10-30-2019 Form Coverer Authentication Interface Message Text This is a [...] 10/30/2019 Medication Sig Dispense Refill nitrofurantoin monohydrate (FAKF6ZFR) 100 MG capsule take 1 capsule by [...] MEAL BD INSULIN SYRINGE U/F 31G X 5/16" 0.5 ML MISC use as directed once daily Rprebb-FcExj-PsStcPu-FA-Om ega (OB COMPLETE PETITE) 35-5-1-200 MG CAPS gummies [...] on phone: None Gets together: None Attends yazdanism service: None Active member of club or [...] Cervical length screening echocardiogram DELIVERY PLAN Hospital: [place] Repeat CD at 39 weeks or sooner [...] was spent counseling and coordinating care. Normal [facility] Progress Noteon 10-18-2019 Form Coverer Authentication Interface Message Text Dari Aparicio is a new patient who's primary care provider is Juan Alfaro MD here for evaluation of heart. Chief Complaint Patient presents with ECHO echo for diabetes and ? VSD History of Presenting Problem HPI Thank you for consulting us regarding Dari Aparicio. She is referred to the cardiology clinic at [facility] for evaluation of the heart. I saw [...] MEAL BD INSULIN SYRINGE U/F 31G X 10/05" 0.5 ML MISC use as directed once daily Xqmdit-ZrIzy-JuHiwLf-FA-Om ega (OB COMPLETE PETITE) 35-5-1-200 MG CAPS gummies [...] on phone: None Gets together: None Attends yazdanism service: None Active member of club or [...] There was a patent foramen ovale, with ycmkv-sj-ipry shunt. Tricuspid valve: Normal tricuspid valve. There [...] to see in cardiology clinic here at [facility], 1-2 months after the or earlier if cardiac condition/status changes in any way. Counseling and/or coordination of care was greater than 35 minutes which is more than 50% of the total time of 60 minutes spent on the encounter. Blanco Oh MD 10/18/2019 Normal [facility] Progress Noteon 10-05-2019 Form Coverer Authentication Interface Message Text This is a [...] MEAL BD INSULIN SYRINGE U/F 31G X 5/16" 0.5 ML MISC use as directed once daily Xztgbj-ZcDjw-HlGvoIf-FA-Om ega (OB COMPLETE PETITE) 35-5-1-200 MG CAPS gummies [...] on phone: None Gets together: None Attends yazdanism service: None Active member of club or [...] Cervical length screening echocardiogram DELIVERY PLAN Hospital: [place] Repeat CD at 39 weeks or sooner [...] was spent counseling and coordinating care. Normal [facility] Progress Noteon 09-11-2019 Form Coverer Authentication Interface Message Text DIABETES AND PROGRAM [...] Taking for the 09/11/19 encounter (Telehealth) with Aquiles Escobar MD Medication Sig Dispense Refill ? ONE TOUCH ULTRA TEST test strip use as directed FASTING AND 2 HOURS AFTER EACH MEAL ? BD INSULIN SYRINGE U/F 31G X 10/05" 0.5 ML MISC use as directed once daily ? Qmkyof-ZcXao-IiBtsKp-FA-Om ega (OB COMPLETE PETITE) 35-5-1-200 MG CAPS gummies [...] Cervical length screening echocardiogram DELIVERY PLAN Hospital: [place] Repeat CD at 39 weeks or sooner [...] was spent counseling and coordinating care. Normal [facility] Progress Noteon 09-04-2019 Form Coverer Authentication Interface Message Text This is a telemedicine (video) visit requested by the patient that was performed with the originating site at home and the distant site at the providers office. This visit occurred during the Coronavirus (COVID-19) Public Health Emergency. I spent 30 minutes of medical discussion with the patient via video. Normal [facility] Form Coverer Authentication Interface Message Text DIABETES AND PROGRAM [facility] MATERNAL- MEDICINE CONSULT This appointment was changed [...] Taking for the 09/04/19 encounter (Telehealth) with Aquiles Escobar MD Medication Sig Dispense Refill ? ONE TOUCH ULTRA TEST test strip use as directed FASTING AND 2 HOURS AFTER EACH MEAL ? BD INSULIN SYRINGE U/F 31G X 5/16" 0.5 ML MISC use as directed once daily ? ondansetron (ZOFRAN) 4 MG tablet Take 4 mg by mouth as needed ? Rudlcc-LlVqu-BqTjwGv-FA-Om ega (OB COMPLETE PETITE) 35-5-1-200 MG CAPS ? [...] consistent carbohydrate meal plan created by a hospice registered nurse who is a pmp certified project manager ?? At least 30-60 minutes of physical [...] delivery with our diabetic team, including our bench assembler operator and family resource management specialist. ? Supervision of other high risk , antepartum 09/04/2019 COMANAGE PLAN OF CARE MD/OB APPOINTMENTS Genetic screening: per OB How often should patient be evaluated? Q 1-2 weeks prn diabetes until 32 weeks then weekly until delivery Work restrictions: NA EVALUATION surveillance: 1x per week starting at 32 weeks Ultrasound: growth Q4, Cervical length screening echocardiogram DELIVERY PLAN Hospital: [place] Repeat CD at 39 weeks or sooner [...] was spent counseling and coordinating care. Normal [facility] Office Visit: ER Follow [facility] 04-19-2017 Documentation of current medications (procedure) Done Invalid Interpretation Code [facility] Documentation of current medications (procedure) T Invalid Interpretation Code [facility] Tobacco smoking status NHIS Never Invalid Interpretation Code [facility] Tobacco use CPHS Never smoker Invalid Interpretation Code [facility] Office Visit: ER Follow [facility] 08-22-2015 General categories [Interpretation] of Cervical or vaginal smear or scraping by Cyto stain Normal Invalid Interpretation Code [facility] Gram stain for investigation of transfusion reaction Microscopic observation Gram stain Nom (Unsp spec) [facility] Work Phone: Thin prep Papanicolaou smear with manual screening Cytopathology procedure, preparation of smear, genital source Normal genital tasha isolated [facility] Work Phone: Vital Signs Date Time Vital Sign Value Performing Clinician Facility 03-19-2025 17:26-0400 Body temperature 98.6 [degF] Dr. Steph Camacho MD Work Phone: [facility] 03-19-2025 17:26-0400 Diastolic blood pressure 69 mm[Hg] Dr. Steph Camacho MD Work Phone: [facility] 03-19-2025 17:26-0400 Heart rate 90 /min Dr. Steph Camacho MD Work Phone: [facility] 03-19-2025 17:26-0400 Respiratory rate 16 /min Dr. Steph Camacho MD Work Phone: [facility] 03-19-2025 17:26-0400 SaO2% (BldA) [Mass fraction] 100 % Dr. Steph Camacho MD Work Phone: [facility] 03-19-2025 17:26-0400 Systolic blood pressure 113 mm[Hg] Dr. Steph Camacho MD Work Phone: [facility] 03-19-2025 14:30-0400 Inhaled oxygen flow rate 4 L/min Dr. Steph Camacho MD Work Phone: [facility] 03-19-2025 09:12-0400 Body height 154.[address] Steph Camacho MD Work Phone: [facility] 03-19-2025 09:12-0400 Body mass index (BMI) [Ratio] 33 kg/m2 Dr. Steph Camacho MD Work Phone: [facility] 03-19-2025 09:12-0400 Body weight 79.[address] Steph Camacho MD Work Phone: [facility] 03-13-2025 10:56-0400 Body mass index (BMI) [Ratio] 32.5 kg/m2 Dr. Steph Camacho MD Work Phone: [facility] 03-13-2025 10:56-0400 Body weight 78.[address] Steph Camacho MD Work Phone: [facility] 03-13-2025 10:56-0400 Diastolic blood pressure 74 mm[Hg] Dr. Steph Camacho MD Work Phone: [facility] 03-13-2025 10:56-0400 Systolic blood pressure 116 mm[Hg] Dr. Steph Camahco MD Work Phone: [facility] 02-21-2025 09:20-0400 Body temperature 97.5 [degF] Dr. Steph Camacho MD Work Phone: [facility] 02-21-2025 09:20-0400 Diastolic blood pressure 64 mm[Hg] Dr. Steph Camacho MD Work Phone: [facility] 02-21-2025 09:20-0400 Heart rate 76 /min Dr. Steph Camacho MD Work Phone: [facility] 02-21-2025 09:20-0400 Respiratory rate 16 /min Dr. Steph Camacho MD Work Phone: [facility] 02-21-2025 09:20-0400 SaO2% (BldA) [Mass fraction] 98 % Dr. Steph Camacho MD Work Phone: [facility] 02-21-2025 09:20-0400 Systolic blood pressure 104 mm[Hg] Dr. Steph Camacho MD Work Phone: [facility] 02-11-2025 13:31-0400 Body height 154.[address] Steph Camacho MD Work Phone: [facility] 02-11-2025 13:31-0400 Body mass index (BMI) [Ratio] 31.6 kg/m2 Dr. Steph Camacho MD Work Phone: [facility] 02-11-2025 13:31-0400 Body weight 75.[address] Steph Camacho MD Work Phone: [facility] 02-11-2025 13:31-0400 Diastolic blood pressure 81 mm[Hg] Dr. Steph Camacho MD Work Phone: [facility] 02-11-2025 13:31-0400 Systolic blood pressure 116 mm[Hg] Dr. Steph Camacho MD Work Phone: [facility] 02-08-2025 11:37-0400 Diastolic blood pressure 65 mm[Hg] Dr. Steph Camacho MD Work Phone: [facility] 02-08-2025 11:37-0400 Heart rate 74 /min Dr. Steph Camacho MD Work Phone: [facility] 02-08-2025 11:37-0400 Systolic blood pressure 128 mm[Hg] Dr. Steph Camacho MD Work Phone: [facility] 02-08-2025 09:40-0400 Body mass index (BMI) [Ratio] 31.1 kg/m2 Dr. Steph Camacho MD Work Phone: [facility] 02-08-2025 09:40-0400 Body temperature 97.6 [degF] Dr. Steph Camacho MD Work Phone: [facility] 02-08-2025 09:40-0400 Body weight 74.[address] Steph Camacho MD Work Phone: [facility] 02-08-2025 09:40-0400 Respiratory rate 16 /min Dr. Steph Camacho MD Work Phone: [facility] 02-08-2025 09:40-0400 SaO2% (BldA) [Mass fraction] 99 % Dr. Steph Camacho MD Work Phone: [facility] 02-01-2025 12:44-0400 Body height 157.5 cm Coral Pierre MD Work Phone: [facility] 02-01-2025 12:44-0400 Body mass index (BMI) [Ratio] 30.73 kg/m2 Coral Pierre MD Work Phone: [facility] 02-01-2025 12:44-0400 Body weight 76.2 kg Coral Pierre MD Work Phone: [facility] 02-01-2025 12:44-0400 Diastolic blood pressure 79 mm[Hg] Coral Pierre MD Work Phone: [facility] 02-01-2025 12:44-0400 Heart rate 76 /min Coral Pierre MD Work Phone: [facility] 02-01-2025 12:44-0400 Systolic blood pressure 112 mm[Hg] Coral Pierre MD Work Phone: [facility] 01-31-2025 13:49-0400 Diastolic blood pressure 64 mm[Hg] Dr. Steph Camacho MD Work Phone: [facility] 01-31-2025 13:49-0400 Heart rate 88 /min Dr. Steph Camacho MD Work Phone: [facility] 01-31-2025 13:49-0400 Respiratory rate 16 /min Dr. Steph Camacho MD Work Phone: [facility] 01-31-2025 13:49-0400 Systolic blood pressure 107 mm[Hg] Dr. Steph Camacho MD Work Phone: [facility] 01-31-2025 11:33-0400 Body height 154.[address] Steph Camacho MD Work Phone: [facility] 01-31-2025 11:33-0400 Body temperature 97.1 [degF] Dr. Steph Camacho MD Work Phone: [facility] 01-31-2025 11:33-0400 SaO2% (BldA) [Mass fraction] 98 % Dr. Steph Camacho MD Work Phone: [facility] 01-25-2025 13:12-0400 Body temperature 96.9 [degF] Dr. Steph Camacho MD Work Phone: [facility] 01-25-2025 13:12-0400 Diastolic blood pressure 69 mm[Hg] Dr. Steph Camacho MD Work Phone: [facility] 01-25-2025 13:12-0400 Heart rate 82 /min Dr. Steph Camacho MD Work Phone: [facility] 01-25-2025 13:12-0400 Respiratory rate 16 /min Dr. Steph Camacho MD Work Phone: [facility] 01-25-2025 13:12-0400 SaO2% (BldA) [Mass fraction] 100 % Dr. Steph Camacho MD Work Phone: [facility] 01-25-2025 13:12-0400 Systolic blood pressure 123 mm[Hg] Dr. Steph Camacho MD Work Phone: [facility] 01-25-2025 11:33-0400 Body height 154.[address] Steph Camacho MD Work Phone: [facility] 01-25-2025 11:33-0400 Body mass index (BMI) [Ratio] 31.1 kg/m2 Dr. Steph Camacho MD Work Phone: [facility] 01-25-2025 11:33-0400 Body weight 74.[address] Steph Camacho MD Work Phone: [facility] 01-18-2025 08:12-0400 Body height 154.9 cm Sola LEON-C Work Phone: [facility] 01-18-2025 08:12-0400 Body mass index (BMI) [Ratio] 31.74 kg/m2 Sola LEON-C Work Phone: [facility] 01-18-2025 08:12-0400 Body temperature 98.6 [degF] Sola LEON-C Work Phone: [facility] 01-18-2025 08:12-0400 Body weight 76.2 kg Sola Cleveland PA-C Work Phone: [facility] 01-18-2025 08:12-0400 Diastolic blood pressure 75 mm[Hg] Sola Cleveland PA-C Work Phone: [facility] 01-18-2025 08:12-0400 Heart rate 98 /min Solaivelisse Cleveland PA-C Work Phone: [facility] 01-18-2025 08:12-0400 SaO2% (BldA) [Mass fraction] 98 % Solaivelisse Cleveland PA-C Work Phone: [facility] 01-18-2025 08:12-0400 Systolic blood pressure 107 mm[Hg] Sola Cleveland PA-C Work Phone: [facility] 01-11-2025 14:32-0400 Body height 154.94 cm No Primary Care Physician [facility] 01-11-2025 14:30-0400 Body mass index (BMI) [Ratio] 31.6 kg/m2 No Primary Care Physician [facility] 01-11-2025 14:30-0400 Body weight 75.83 kg No Primary Care Physician [facility] 01-11-2025 14:30-0400 Diastolic blood pressure 86 mm[Hg] No Primary Care Physician [facility] 01-11-2025 14:30-0400 Systolic blood pressure 126 mm[Hg] No Primary Care Physician [facility] 01-06-2025 02:50-0400 Body temperature 98 [degF] No Primary Care Physician [facility] 01-06-2025 02:50-0400 Diastolic blood pressure 64 mm[Hg] No Primary Care Physician [facility] 01-06-2025 02:50-0400 Heart rate 104 /min No Primary Care Physician [facility] 01-06-2025 02:50-0400 Respiratory rate 18 /min No Primary Care Physician [facility] 01-06-2025 02:50-0400 SaO2% (BldA) [Mass fraction] 99 % No Primary Care Physician [facility] 01-06-2025 02:50-0400 Systolic blood pressure 110 mm[Hg] No Primary Care Physician [facility] 01-05-2025 23:27-0400 Body height 154.94 cm No Primary Care Physician [facility] 01-05-2025 23:27-0400 Body mass index (BMI) [Ratio] 33.2 kg/m2 No Primary Care Physician [facility] 01-05-2025 23:27-0400 Body weight 79.7 kg No Primary Care Physician [facility] 12-19-2024 10:34-0400 Body height 157.5 cm Coral Pierre MD Work Phone: [facility] 12-19-2024 10:34-0400 Body mass index (BMI) [Ratio] 31.02 kg/m2 Coral Pierre MD Work Phone: [facility] 12-19-2024 10:34-0400 Body weight 76.93 kg Coral Pierre MD Work Phone: [facility] 12-19-2024 10:34-0400 Diastolic blood pressure 75 mm[Hg] Coral Pierre MD Work Phone: [facility] 12-19-2024 10:34-0400 Heart rate 80 /min Coral Pierre MD Work Phone: [facility] 12-19-2024 10:34-0400 Systolic blood pressure 113 mm[Hg] Coral Pierre MD Work Phone: [facility] 12-03-2024 15:01-0400 Body height 154.94 cm No Primary Care Physician [facility] 12-03-2024 14:51-0400 Body mass index (BMI) [Ratio] 32.3 kg/m2 No Primary Care Physician [facility] 12-03-2024 14:51-0400 Body weight 77.73 kg No Primary Care Physician [facility] 12-03-2024 14:51-0400 Diastolic blood pressure 70 mm[Hg] No Primary Care Physician [facility] 12-03-2024 14:51-0400 Systolic blood pressure 110 mm[Hg] No Primary Care Physician [facility] 11-07-2024 10:30-0400 Body height 157.5 cm Coral Pierre MD Work Phone: [facility] 11-07-2024 10:30-0400 Body mass index (BMI) [Ratio] 31.31 kg/m2 Coral Pierre MD Work Phone: [facility] 11-07-2024 10:30-0400 Body weight 77.66 kg Coral Pierre MD Work Phone: [facility] 11-07-2024 10:30-0400 Diastolic blood pressure 75 mm[Hg] Coral Pierre MD Work Phone: [facility] 11-07-2024 10:30-0400 Heart rate 82 /min Coral Pierre MD Work Phone: [facility] 11-07-2024 10:30-0400 Systolic blood pressure 109 mm[Hg] Coral Pierre MD Work Phone: [facility] 10-08-2024 09:07-0400 Body height 154.94 cm No Primary Care Physician [facility] 09-25-2024 08:32-0400 Body mass index (BMI) [Ratio] 32.1 kg/m2 No Primary Care Physician [facility] 09-25-2024 08:32-0400 Body weight 77.28 kg No Primary Care Physician [facility] 09-25-2024 08:32-0400 Diastolic blood pressure 64 mm[Hg] No Primary Care Physician [facility] 09-25-2024 08:32-0400 Systolic blood pressure 98 mm[Hg] No Primary Care Physician [facility] 09-17-2024 10:30-0400 Body mass index (BMI) [Ratio] 32.5 kg/m2 No Primary Care Physician [facility] 09-17-2024 10:30-0400 Body temperature 97.5 [degF] No Primary Care Physician [facility] 09-17-2024 10:30-0400 Body weight 78.01 kg No Primary Care Physician [facility] 09-17-2024 10:30-0400 Diastolic blood pressure 66 mm[Hg] No Primary Care Physician [facility] 09-17-2024 10:30-0400 Heart rate 88 /min No Primary Care Physician [facility] 09-17-2024 10:30-0400 Respiratory rate 18 /min No Primary Care Physician [facility] 09-17-2024 10:30-0400 SaO2% (BldA) [Mass fraction] 99 % No Primary Care Physician [facility] 09-17-2024 10:30-0400 Systolic blood pressure 124 mm[Hg] No Primary Care Physician [facility] 09-03-2024 09:22-0400 Body mass index (BMI) [Ratio] 31.4 kg/m2 No Primary Care Physician [facility] 09-03-2024 09:22-0400 Body weight 75.29 kg No Primary Care Physician [facility] 08-22-2024 14:49-0400 Body height 154.94 cm Vidhya Adnerson 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-C Work Phone: [facility] 08-22-2024 14:49-0400 Body mass index (BMI) [Ratio] 32.1 kg/m2 Vidhya Anderson 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-C Work Phone: [facility] 08-22-2024 14:49-0400 Body temperature 97.8 [degF] Vidhya Anderson 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-C Work Phone: [facility] 08-22-2024 14:49-0400 Body weight 77.11 kg Vidhya Anderson 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-C Work Phone: [facility] 08-22-2024 14:49-0400 Diastolic blood pressure 62 mm[Hg] Vidhya Anderson 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-C Work Phone: [facility] 08-22-2024 14:49-0400 Heart rate 105 /min Vidhya Anderson 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-C Work Phone: [facility] 08-22-2024 14:49-0400 Respiratory rate 18 /min Vidhya Anderson 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-C Work Phone: [facility] 08-22-2024 14:49-0400 SaO2% (BldA) [Mass fraction] 98 % Vidhya Anderson 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-C Work Phone: [facility] 08-22-2024 14:49-0400 Systolic blood pressure 130 mm[Hg] Vidhya Anderson 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-C Work Phone: [facility] 07-28-2024 10:25-0500 Body temperature 98.2 [degF] Vidhya Anderson 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-C Work Phone: [facility] 07-28-2024 10:25-0500 Diastolic blood pressure 76 mm[Hg] Vidhya Anderson 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-C Work Phone: [facility] 07-28-2024 10:25-0500 Heart rate 82 /min Vidhya Anderson 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-C Work Phone: [facility] 07-28-2024 10:25-0500 Respiratory rate 14 /min Vidhya Anderson 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-C Work Phone: [facility] 07-28-2024 10:25-0500 SaO2% (BldA) [Mass fraction] 98 % Vidhya Anderson 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-C Work Phone: [facility] 07-28-2024 10:25-0500 Systolic blood pressure 112 mm[Hg] Vidhya Anderson 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-C Work Phone: [facility] 07-13-2024 14:15-0500 Body height 157.5 cm Coral Pierre MD Work Phone: [facility] 07-13-2024 14:15-0500 Body mass index (BMI) [Ratio] 30.36 kg/m2 Coral Pierre MD Work Phone: [facility] 07-13-2024 14:15-0500 Body weight 75.3 kg Coral Pierre MD Work Phone: [facility] 07-13-2024 14:15-0500 Diastolic blood pressure 73 mm[Hg] Coral Pierre MD Work Phone: [facility] 07-13-2024 14:15-0500 Heart rate 87 /min Coral Pierre MD Work Phone: [facility] 07-13-2024 14:15-0500 Systolic blood pressure 119 mm[Hg] Coral Pierre MD Work Phone: [facility] 07-10-2024 15:38-0500 Body temperature 98.5 [degF] Vidhya Anderson 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-C Work Phone: [facility] 07-10-2024 15:38-0500 Diastolic blood pressure 65 mm[Hg] Vidhya nAderson 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-C Work Phone: [facility] 07-10-2024 15:38-0500 Heart rate 77 /min Vidhya Anderson 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-C Work Phone: [facility] 07-10-2024 15:38-0500 Respiratory rate 16 /min Vidhya Anderson 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-C Work Phone: [facility] 07-10-2024 15:38-0500 SaO2% (BldA) [Mass fraction] 95 % Vidhya Anderson 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-C Work Phone: [facility] 07-10-2024 15:38-0500 Systolic blood pressure 112 mm[Hg] Vidhya Anderson 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-C Work Phone: [facility] 07-10-2024 12:11-0500 Body mass index (BMI) [Ratio] 31.1 kg/m2 Vidhya Anderson 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-C Work Phone: [facility] 07-10-2024 12:11-0500 Body weight 74.84 kg Vidhya Anderson 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-C Work Phone: [facility] 07-10-2024 11:51-0500 Body mass index (BMI) [Ratio] 31.31 kg/m2 Vandana Mireles APRN.SOFT MUD MOLDER Work Phone: [facility] 07-10-2024 11:51-0500 Body temperature 97.7 [degF] Vandana Mireles APRN.SOFT MUD MOLDER Work Phone: [facility] 07-10-2024 11:51-0500 Body weight 76.4 kg Vandana Mireles APRN.SOFT MUD MOLDER Work Phone: [facility] 07-10-2024 11:51-0500 Heart rate 96 /min Vandana Mireles APRN.SOFT MUD MOLDER Work Phone: [facility] 07-10-2024 11:51-0500 Respiratory rate 16 /min Vandana Mireles APRN.SOFT MUD MOLDER Work Phone: [facility] 07-10-2024 11:51-0500 SaO2% (BldA) [Mass fraction] 99 % Vandana Mireles APRN.SOFT MUD MOLDER Work Phone: [facility] 07-08-2024 10:16-0500 Body mass index (BMI) [Ratio] 31.35 kg/m2 Steve Praisler-Wood LIFE ASSURANCE REPRESENTATIVE.SOFT MUD MOLDER Work Phone: [facility] 07-08-2024 10:16-0500 Body temperature 98.01 [degF] Steve Praisler-Wood LIFE ASSURANCE REPRESENTATIVE.SOFT MUD MOLDER Work Phone: [facility] 07-08-2024 10:16-0500 Body weight 76.5 kg Steve Praisler-Wood LIFE ASSURANCE REPRESENTATIVE.SOFT MUD MOLDER Work Phone: [facility] 07-08-2024 10:16-0500 Diastolic blood pressure 72 mm[Hg] Steve Praisler-Wood LIFE ASSURANCE REPRESENTATIVE.SOFT MUD MOLDER Work Phone: [facility] 07-08-2024 10:16-0500 Heart rate 89 /min Steve Praisler-Wood LIFE ASSURANCE REPRESENTATIVE.SOFT MUD MOLDER Work Phone: [facility] 07-08-2024 10:16-0500 Respiratory rate 18 /min Steve Praisler-Wood LIFE ASSURANCE REPRESENTATIVE.SOFT MUD MOLDER Work Phone: [facility] 07-08-2024 10:16-0500 SaO2% (BldA) [Mass fraction] 100 % Steve Praisler-Wood LIFE ASSURANCE REPRESENTATIVE.SOFT MUD MOLDER Work Phone: [facility] 07-08-2024 10:16-0500 Systolic blood pressure 122 mm[Hg] Steve Praisler-Wood LIFE ASSURANCE REPRESENTATIVE.SOFT MUD MOLDER Work Phone: [facility] 06-15-2024 09:48-0500 Body height 157.5 cm Coral Pierre MD Work Phone: [facility] 06-15-2024 09:48-0500 Body mass index (BMI) [Ratio] 30.98 kg/m2 Coral Pierre MD Work Phone: [facility] 06-15-2024 09:48-0500 Body weight 76.84 kg Coral Pierre MD Work Phone: [facility] 06-15-2024 09:48-0500 Diastolic blood pressure 59 mm[Hg] Coral Pierre MD Work Phone: [facility] 06-15-2024 09:48-0500 Heart rate 76 /min Coral Pierre MD Work Phone: [facility] 06-15-2024 09:48-0500 Systolic blood pressure 96 mm[Hg] Coral Pierre MD Work Phone: [facility] 06-06-2024 11:00-0500 Body height 156.2 cm Santino Aguilera MD Work Phone: [facility] 06-06-2024 11:00-0500 Body mass index (BMI) [Ratio] 29.93 kg/m2 Santino Aguilera MD Work Phone: [facility] 06-06-2024 11:00-0500 Body weight 73.03 kg Santino Aguilera MD Work Phone: [facility] 05-04-2024 21:18-0500 Diastolic Blood Pressure Non-Invasive 72 mm[Hg] KAMILA KOHLI DO [facility] 05-04-2024 21:18-0500 Heart rate 75 /min KAMILA RAKANTERRIT DO [facility] 05-04-2024 21:18-0500 Respiratory rate 16 /min KAMILA RAKANTERRIT DO [facility] 05-04-2024 21:18-0500 Systolic Blood Pressure Non-Invasive 118 mm[Hg] KAMILA KOHLI DO [facility] 05-04-2024 19:20-0500 Body temperature 98.6 [degF] KAMILA KOHLI DO [facility] 05-04-2024 19:20-0500 Diastolic Blood Pressure Non-Invasive 62 mm[Hg] KAMILA KOHLI DO [facility] 05-04-2024 19:20-0500 Heart rate 68 /min KAMILA KOHLI DO [facility] 05-04-2024 19:20-0500 Respiratory rate 18 /min KAMILA KOHLI DO [facility] 05-04-2024 19:20-0500 Systolic Blood Pressure Non-Invasive 117 mm[Hg] KAMILA KOHLI DO [facility] 03-30-2024 08:46-0500 Body mass index (BMI) [Ratio] 28.07 kg/m2 Dari White LIFE ASSURANCE REPRESENTATIVE.SOFT MUD MOLDER Work Phone: [facility] 03-30-2024 08:46-0500 Body temperature 98.1 [degF] Dari White LIFE ASSURANCE REPRESENTATIVE.SOFT MUD MOLDER Work Phone: [facility] 03-30-2024 08:46-0500 Body weight 68.5 kg Dari White LIFE ASSURANCE REPRESENTATIVE.SOFT MUD MOLDER Work Phone: [facility] 03-30-2024 08:46-0500 Diastolic blood pressure 76 mm[Hg] Dari White LIFE ASSURANCE REPRESENTATIVE.SOFT MUD MOLDER Work Phone: [facility] 03-30-2024 08:46-0500 Heart rate 116 /min Dari White LIFE ASSURANCE REPRESENTATIVE.SOFT MUD MOLDER Work Phone: [facility] 03-30-2024 08:46-0500 Respiratory rate 16 /min Dari White LIFE ASSURANCE REPRESENTATIVE.SOFT MUD MOLDER Work Phone: [facility] 03-30-2024 08:46-0500 SaO2% (BldA) [Mass fraction] 98 % Dari White LIFE ASSURANCE REPRESENTATIVE.SOFT MUD MOLDER Work Phone: [facility] 03-30-2024 08:46-0500 Systolic blood pressure 109 mm[Hg] Dari White LIFE ASSURANCE REPRESENTATIVE.SOFT MUD MOLDER Work Phone: [facility] 12-09-2023 11:19-0400 Body height 157.5 cm Coral Pierre MD Work Phone: [facility] 12-09-2023 11:19-0400 Body mass index (BMI) [Ratio] 26.08 kg/m2 Coral Pierre MD Work Phone: [facility] 12-09-2023 11:19-0400 Body weight 64.68 kg Coral Pierre MD Work Phone: [facility] 12-09-2023 11:19-0400 Diastolic blood pressure 69 mm[Hg] Coral Pierre MD Work Phone: [facility] 12-09-2023 11:19-0400 Heart rate 71 /min Coral Pierre MD Work Phone: [facility] 12-09-2023 11:19-0400 Systolic blood pressure 117 mm[Hg] Coral Pierre MD Work Phone: [facility] 11-02-2023 08:23-0400 Body height 157.5 cm Coral Pierre MD Work Phone: [facility] 11-02-2023 08:23-0400 Body mass index (BMI) [Ratio] 26.45 kg/m2 Coral Pierre MD Work Phone: [facility] 11-02-2023 08:23-0400 Body weight 65.59 kg Coral Pierre MD Work Phone: [facility] 11-02-2023 08:23-0400 Diastolic blood pressure 68 mm[Hg] Coral Pierre MD Work Phone: [facility] 11-02-2023 08:23-0400 Heart rate 76 /min Coral Pierre MD Work Phone: [facility] 11-02-2023 08:23-0400 Systolic blood pressure 103 mm[Hg] Coral Pierre MD Work Phone: [facility] 08-09-2023 12:50-0400 Body height 156.2 cm Ajay Nguyễn MD Work Phone: [facility] 08-09-2023 12:50-0400 Body mass index (BMI) [Ratio] 25.41 kg/m2 Ajay Nguyễn MD Work Phone: [facility] 08-09-2023 12:50-0400 Body temperature 98.8 [degF] Ajay Nguyễn MD Work Phone: [facility] 08-09-2023 12:50-0400 Body weight 62.01 kg Ajay Nguyễn MD Work Phone: [facility] 07-29-2023 11:32-0500 Body height 157.5 cm Coral Pierre MD Work Phone: [facility] 07-29-2023 11:32-0500 Body mass index (BMI) [Ratio] 25.39 kg/m2 Coral Pierre MD Work Phone: [facility] 07-29-2023 11:32-0500 Body weight 62.96 kg Coral Pierre MD Work Phone: [facility] 07-29-2023 11:32-0500 Diastolic blood pressure 68 mm[Hg] Coral Pierre MD Work Phone: [facility] 07-29-2023 11:32-0500 Heart rate 73 /min Coral Pierre MD Work Phone: [facility] 07-29-2023 11:32-0500 Systolic blood pressure 104 mm[Hg] Coral Pierre MD Work Phone: [facility] 06-03-2023 12:01-0500 Body height 157.5 cm Coral Pierre MD Work Phone: [facility] 06-03-2023 12:01-0500 Body mass index (BMI) [Ratio] 25.75 kg/m2 Coral Pierre MD Work Phone: [facility] 06-03-2023 12:01-0500 Body weight 63.87 kg Coral Pierre MD Work Phone: [facility] 06-03-2023 12:01-0500 Diastolic blood pressure 72 mm[Hg] Coral Pierre MD Work Phone: [facility] 06-03-2023 12:01-0500 Heart rate 80 /min Coral Pierre MD Work Phone: [facility] 06-03-2023 12:01-0500 Systolic blood pressure 108 mm[Hg] Coral Pierre MD Work Phone: [facility] 06-01-2023 14:51-0500 Body height 154.94 cm DO Jacqueline Tasha Work Phone: [facility] 06-01-2023 14:50-0500 Body mass index (BMI) [Ratio] 26.6 kg/m2 DO Jacqueline Tasha Work Phone: [facility] 06-01-2023 14:50-0500 Body weight 64.01 kg DO Jacqueline Tasha Work Phone: [facility] 06-01-2023 14:50-0500 Diastolic blood pressure 74 mm[Hg] DO Jacqueline Tasha Work Phone: [facility] 06-01-2023 14:50-0500 Systolic blood pressure 122 mm[Hg] DO Jacqueline Tasha Work Phone: [facility] 05-24-2023 14:39-0500 Body height 154.94 cm DO Jacqueline Tasha Work Phone: [facility] 05-24-2023 14:39-0500 Body mass index (BMI) [Ratio] 27.1 kg/m2 DO Jacqueline Tasha Work Phone: [facility] 05-24-2023 14:39-0500 Body weight 65.03 kg DO Jacqueline Tasha Work Phone: [facility] 05-24-2023 14:39-0500 Diastolic blood pressure 68 mm[Hg] DO Jacqueline Tasha Work Phone: [facility] 05-24-2023 14:39-0500 Systolic blood pressure 112 mm[Hg] DO Jacqueline Tasha Work Phone: [facility] 05-10-2023 09:17-0500 Body temperature 97.8 [degF] DO Jacqueline Tasha Work Phone: [facility] 05-10-2023 09:17-0500 Diastolic blood pressure 74 mm[Hg] DO Jacqueline Tasha Work Phone: [facility] 05-10-2023 09:17-0500 Heart rate 108 /min DO Jacqueline Tasha Work Phone: [facility] 05-10-2023 09:17-0500 Respiratory rate 12 /min DO Jacqueline Tasha Work Phone: [facility] 05-10-2023 09:17-0500 SaO2% (BldA) [Mass fraction] 98 % DO Jacqueline Tasha Work Phone: [facility] 05-10-2023 09:17-0500 Systolic blood pressure 107 mm[Hg] DO Jacqueline Tasha Work Phone: [facility] 04-29-2023 14:01-0500 Body height 157.5 cm Coral Pierre MD Work Phone: [facility] 04-29-2023 14:01-0500 Body mass index (BMI) [Ratio] 27.53 kg/m2 Coral Pierre MD Work Phone: [facility] 04-29-2023 14:01-0500 Body weight 68.27 kg Coral Pierre MD Work Phone: [facility] 04-29-2023 14:01-0500 Diastolic blood pressure 76 mm[Hg] Coral Pierre MD Work Phone: [facility] 04-29-2023 14:01-0500 Heart rate 68 /min Coral Pierre MD Work Phone: [facility] 04-29-2023 14:01-0500 Systolic blood pressure 113 mm[Hg] Coral Pierre MD Work Phone: [facility] 04-22-2023 13:59-0500 Body height 154.94 cm DO Jacqueline Tasha Work Phone: [facility] 04-22-2023 13:58-0500 Body mass index (BMI) [Ratio] 28.5 kg/m2 DO Jacqueline Tasha Work Phone: [facility] 04-22-2023 13:58-0500 Body weight 68.49 kg DO Jacqueline Tasha Work Phone: [facility] 04-22-2023 13:58-0500 Diastolic blood pressure 59 mm[Hg] DO Jacqueline Tasha Work Phone: [facility] 04-22-2023 13:58-0500 Systolic blood pressure 98 mm[Hg] DO Jacqueline Tasha Work Phone: [facility] 03-25-2023 11:04-0400 Body height 157.5 cm Coral Pierre MD Work Phone: [facility] 03-25-2023 11:04-0400 Body mass index (BMI) [Ratio] 28.35 kg/m2 Coral Pierre MD Work Phone: [facility] 03-25-2023 11:04-0400 Body weight 70.31 kg Coral Pierre MD Work Phone: [facility] 03-25-2023 11:04-0400 Diastolic blood pressure 60 mm[Hg] Coral Pierre MD Work Phone: [facility] 03-25-2023 11:04-0400 Heart rate 78 /min Coral Pierre MD Work Phone: [facility] 03-25-2023 11:04-0400 Systolic blood pressure 91 mm[Hg] Coral Pierre MD Work Phone: [facility] 02-25-2023 14:06-0400 Body height 157.5 cm Coral Pierre MD Work Phone: [facility] 02-25-2023 14:06-0400 Body mass index (BMI) [Ratio] 28.97 kg/m2 Coral Pierre MD Work Phone: [facility] 02-25-2023 14:06-0400 Body weight 71.85 kg Coral Pierre MD Work Phone: [facility] 02-25-2023 14:06-0400 Diastolic blood pressure 64 mm[Hg] Coral Pierre MD Work Phone: [facility] 02-25-2023 14:06-0400 Heart rate 76 /min Coral Pierre MD Work Phone: [facility] 02-25-2023 14:06-0400 Systolic blood pressure 96 mm[Hg] Coral Pierre MD Work Phone: [facility] 01-23-2023 12:29-0400 Body temperature 98.6 [degF] DO Jacqueline Tasha Work Phone: [facility] 01-23-2023 12:29-0400 Diastolic blood pressure 70 mm[Hg] DO Jacqueline Tasha Work Phone: [facility] 01-23-2023 12:29-0400 Heart rate 83 /min DO Jacqueline Tasha Work Phone: [facility] 01-23-2023 12:29-0400 Respiratory rate 14 /min DO Jacqueline Tasha Work Phone: [facility] 01-23-2023 12:29-0400 SaO2% (BldA) [Mass fraction] 92 % DO Jacqueline Tasha Work Phone: [facility] 01-23-2023 12:29-0400 Systolic blood pressure 105 mm[Hg] Jacqueline Colesnger Work Phone: [facility] 01-19-2023 15:20-0400 Body height 157.5 cm Coral Pierre MD Work Phone: [facility] 01-19-2023 15:20-0400 Body mass index (BMI) [Ratio] 30.25 kg/m2 Coral Pierre MD Work Phone: [facility] 01-19-2023 15:20-0400 Body weight 75.03 kg Coral Pierre MD Work Phone: [facility] 01-19-2023 15:20-0400 Diastolic blood pressure 67 mm[Hg] Coral Pierre MD Work Phone: [facility] 01-19-2023 15:20-0400 Heart rate 67 /min Coral Pierre MD Work Phone: [facility] 01-19-2023 15:20-0400 Systolic blood pressure 99 mm[Hg] Coral Pierre MD Work Phone: [facility] 01-12-2023 09:32-0400 Body height 154.[address] Krista Parker Work Phone: [facility] 01-12-2023 09:32-0400 Body mass index (BMI) [Ratio] 31.4 kg/m2 Dr. Krista Parker Work Phone: [facility] 01-12-2023 09:32-0400 Body temperature 97 [degF] Dr. Krista Parker Work Phone: [facility] 01-12-2023 09:32-0400 Body weight 75.[address] Krista Parker Work Phone: [facility] 01-12-2023 09:32-0400 Diastolic blood pressure 75 mm[Hg] Dr. Krista Parker Work Phone: [facility] 01-12-2023 09:32-0400 Heart rate 96 /min Dr. Krista Parker Work Phone: [facility] 01-12-2023 09:32-0400 Respiratory rate 14 /min Dr. Krista Parker Work Phone: [facility] 01-12-2023 09:32-0400 SaO2% (BldA) [Mass fraction] 100 % Dr. Krista Parker Work Phone: [facility] 01-12-2023 09:32-0400 Systolic blood pressure 119 mm[Hg] Dr. Krista Parker Work Phone: [facility] 12-20-2022 10:27-0400 Body mass index (BMI) [Ratio] 31.2 kg/m2 Dr. Krista Parker Work Phone: [facility] 12-20-2022 10:27-0400 Body weight 76.[address] Krista Parker Work Phone: [facility] 12-15-2022 14:50-0400 Body height 157.5 cm Coral Pierre MD Work Phone: [facility] 12-15-2022 14:50-0400 Body mass index (BMI) [Ratio] 30.91 kg/m2 Coral Pierre MD Work Phone: [facility] 12-15-2022 14:50-0400 Body weight 76.66 kg Coral Pierre MD Work Phone: [facility] 12-15-2022 14:50-0400 Diastolic blood pressure 69 mm[Hg] Coral Pierre MD Work Phone: [facility] 12-15-2022 14:50-0400 Heart rate 74 /min Coral Pierre MD Work Phone: [facility] 12-15-2022 14:50-0400 Systolic blood pressure 103 mm[Hg] Coral Pierre MD Work Phone: [facility] 12-01-2022 11:21-0400 Body height 156.2 cm Colin Bella MD Work Phone: [facility] 12-01-2022 11:21-0400 Body temperature 96.69 [degF] Colin Bella MD Work Phone: [facility] 12-01-2022 11:21-0400 Body weight 78.02 kg Colin Bella MD Work Phone: [facility] 12-01-2022 11:21-0400 Diastolic blood pressure 46 mm[Hg] Colin Bella MD Work Phone: [facility] 12-01-2022 11:21-0400 Heart rate 85 /min Colin Bella MD Work Phone: [facility] 12-01-2022 11:21-0400 Systolic blood pressure 103 mm[Hg] Colin Bella MD Work Phone: [facility] 11-12-2022 09:42-0400 Body height 157.5 cm Coral Pierre MD Work Phone: [facility] 11-12-2022 09:42-0400 Body mass index (BMI) [Ratio] 31.28 kg/m2 Coral Pierre MD Work Phone: [facility] 11-12-2022 09:42-0400 Body weight 77.56 kg Coral Pierre MD Work Phone: [facility] 11-12-2022 09:42-0400 Diastolic blood pressure 72 mm[Hg] Coral Pierre MD Work Phone: [facility] 11-12-2022 09:42-0400 Heart rate 81 /min Coral Pierre MD Work Phone: [facility] 11-12-2022 09:42-0400 Systolic blood pressure 109 mm[Hg] Coral Pierre MD Work Phone: [facility] 09-21-2022 09:52-0400 Body height 154.[address] Krista Parekr Work Phone: [facility] 09-21-2022 09:51-0400 Body mass index (BMI) [Ratio] 31 kg/m2 Dr. Krista Parker Work Phone: [facility] 09-21-2022 09:51-0400 Body weight 74.[address] Krista Parker Work Phone: [facility] 09-21-2022 09:51-0400 Diastolic blood pressure 78 mm[Hg] Dr. Krista Parker Work Phone: [facility] 09-21-2022 09:51-0400 Systolic blood pressure 121 mm[Hg] Dr. Krista Parker Work Phone: [facility] 09-07-2022 15:42-0400 Body temperature 98.4 [degF] Dr. Krista Parker Work Phone: [facility] 09-07-2022 15:42-0400 Diastolic blood pressure 75 mm[Hg] Dr. Krista Parker Work Phone: [facility] 09-07-2022 15:42-0400 Heart rate 83 /min Dr. Krista Parker Work Phone: [facility] 09-07-2022 15:42-0400 Respiratory rate 16 /min Dr. Krista Parker Work Phone: [facility] 09-07-2022 15:42-0400 SaO2% (BldA) [Mass fraction] 100 % Dr. Krista Parker Work Phone: [facility] 09-07-2022 15:42-0400 Systolic blood pressure 106 mm[Hg] Dr. Krista Parker Work Phone: [facility] 09-07-2022 12:13-0400 Body mass index (BMI) [Ratio] 31.3 kg/m2 Dr. Krista Parker Work Phone: [facility] 09-07-2022 12:13-0400 Body weight 75.[address] Krista Parker Work Phone: [facility] 08-17-2022 18:13-0400 Body temperature 99.3 [degF] Dari White LIFE ASSURANCE REPRESENTATIVE.SOFT MUD MOLDER Work Phone: [facility] 08-17-2022 18:13-0400 Body weight 76.57 kg Dari White LIFE ASSURANCE REPRESENTATIVE.SOFT MUD MOLDER Work Phone: [facility] 08-17-2022 18:13-0400 Diastolic blood pressure 90 mm[Hg] Dari White LIFE ASSURANCE REPRESENTATIVE.SOFT MUD MOLDER Work Phone: [facility] 08-17-2022 18:13-0400 Heart rate 102 /min Dari White LIFE ASSURANCE REPRESENTATIVE.SOFT MUD MOLDER Work Phone: [facility] 08-17-2022 18:13-0400 Respiratory rate 16 /min Dari White LIFE ASSURANCE REPRESENTATIVE.SOFT MUD MOLDER Work Phone: [facility] 08-17-2022 18:13-0400 SaO2% (BldA) [Mass fraction] 99 % Dari White LIFE ASSURANCE REPRESENTATIVE.SOFT MUD MOLDER Work Phone: [facility] 08-17-2022 18:13-0400 Systolic blood pressure 136 mm[Hg] Dari White LIFE ASSURANCE REPRESENTATIVE.SOFT MUD MOLDER Work Phone: [facility] 07-30-2022 15:56-0500 Body mass index (BMI) [Ratio] 29.9 kg/m2 Dr. Krista Parker Work Phone: [facility] 07-30-2022 15:56-0500 Body weight 74.[address] Krista Parker Work Phone: [facility] 07-30-2022 15:56-0500 Diastolic blood pressure 89 mm[Hg] Dr. Krista Parker Work Phone: [facility] 07-30-2022 15:56-0500 Systolic blood pressure 138 mm[Hg] Dr. Krista Parker Work Phone: [facility] 07-08-2022 09:52-0500 Body height 157.[address] Juan Alfaro Work Phone: [facility] 07-08-2022 09:50-0500 Body mass index (BMI) [Ratio] 30.5 kg/m2 Dr. Juan Alfaro Work Phone: [facility] 07-08-2022 09:50-0500 Body weight 75.[address] Juan Alfaro Work Phone: [facility] 07-08-2022 09:50-0500 Diastolic blood pressure 76 mm[Hg] Dr. Juan Alfaro Work Phone: [facility] 07-08-2022 09:50-0500 Systolic blood pressure 121 mm[Hg] Dr. Juan Alfaro Work Phone: [facility] 06-25-2022 10:37-0500 Body height 157.[address] Juan Alfaro Work Phone: [facility] 06-25-2022 10:37-0500 Body mass index (BMI) [Ratio] 30.6 kg/m2 Dr. Juan Alfaro Work Phone: [facility] 06-25-2022 10:37-0500 Body weight 75.[address] Juan Alfaro Work Phone: [facility] 06-25-2022 10:37-0500 Diastolic blood pressure 84 mm[Hg] Dr. Juan Alfaro Work Phone: [facility] 06-25-2022 10:37-0500 Systolic blood pressure 119 mm[Hg] Dr. Juan Alfaro Work Phone: [facility] 06-23-2022 10:58-0500 Body temperature 97.3 [degF] Dr. Juan Alfaro Work Phone: [facility] 06-23-2022 10:58-0500 Body weight 76.[address] Juan Alfaro Work Phone: [facility] 06-23-2022 10:58-0500 Diastolic blood pressure 88 mm[Hg] Dr. Juan Alfaro Work Phone: [facility] 06-23-2022 10:58-0500 Heart rate 97 /min Dr. Juan Alfaro Work Phone: [facility] 06-23-2022 10:58-0500 Respiratory rate 16 /min Dr. Juan Alfaro Work Phone: [facility] 06-23-2022 10:58-0500 SaO2% (BldA) [Mass fraction] 98 % Dr. Juan Alfaro Work Phone: [facility] 06-23-2022 10:58-0500 Systolic blood pressure 131 mm[Hg] Dr. Juan Alfaro Work Phone: [facility] 05-28-2022 11:20-0500 Body height 157.[address] Juan Alfaro Work Phone: [facility] 05-28-2022 11:20-0500 Body mass index (BMI) [Ratio] 31.8 kg/m2 Dr. Juan Alfaro Work Phone: [facility] 05-28-2022 11:20-0500 Body weight 78.[address] Juan Alfaro Work Phone: [facility] 05-28-2022 11:20-0500 Diastolic blood pressure 74 mm[Hg] Dr. Juan Alfaro Work Phone: [facility] 05-28-2022 11:20-0500 Systolic blood pressure 118 mm[Hg] Dr. Juan Alfaro Work Phone: [facility] 04-14-2022 14:19-0500 Body height 157.[address] Juan Alfaro Work Phone: [facility] Work Phone: 04-14-2022 14:19-0500 Body mass index (BMI) [Ratio] 33.5 kg/m2 Dr. Juan Alfaro Work Phone: [facility] 04-14-2022 14:19-0500 Body weight 83.[address] Juan Alfaro Work Phone: [facility] 04-14-2022 14:19-0500 Diastolic blood pressure 73 mm[Hg] Dr. Juan Alfaro Work Phone: [facility] 04-14-2022 14:19-0500 Systolic blood pressure 116 mm[Hg] Dr. Juan Alfaro Work Phone: [facility] 03-10-2022 08:23-0400 Body mass index (BMI) [Ratio] 33.3 kg/m2 Dr. Juan Alfaro Work Phone: [facility] 03-10-2022 08:23-0400 Body temperature 98.2 [degF] Dr. Juan Alfaro Work Phone: [facility] 03-10-2022 08:23-0400 Body weight 82.[address] Juan Alfaro Work Phone: [facility] 03-10-2022 08:23-0400 Diastolic blood pressure 80 mm[Hg] Dr. Juan Alfaro Work Phone: [facility] 03-10-2022 08:23-0400 Heart rate 78 /min Dr. Juan Alfaro Work Phone: [facility] 03-10-2022 08:23-0400 Respiratory rate 16 /min Dr. Juan Alfaro Work Phone: [facility] 03-10-2022 08:23-0400 SaO2% (BldA) [Mass fraction] 99 % Dr. Juan Alfaro Work Phone: [facility] 03-10-2022 08:23-0400 Systolic blood pressure 110 mm[Hg] Dr. Juan Alfaro Work Phone: [facility] 01-11-2022 18:23-0400 Body temperature 98.8 [degF] Dari White LIFE ASSURANCE REPRESENTATIVE.SOFT MUD MOLDER Work Phone: [facility] 01-11-2022 18:23-0400 Body weight 82.1 kg Dari White LIFE ASSURANCE REPRESENTATIVE.SOFT MUD MOLDER Work Phone: [facility] 01-11-2022 18:23-0400 Diastolic blood pressure 84 mm[Hg] Dari White LIFE ASSURANCE REPRESENTATIVE.SOFT MUD MOLDER Work Phone: [facility] 01-11-2022 18:23-0400 Heart rate 102 /min Dari White LIFE ASSURANCE REPRESENTATIVE.SOFT MUD MOLDER Work Phone: [facility] 01-11-2022 18:23-0400 Respiratory rate 16 /min Dari White LIFE ASSURANCE REPRESENTATIVE.SOFT MUD MOLDER Work Phone: [facility] 01-11-2022 18:23-0400 SaO2% (BldA) [Mass fraction] 99 % Dari White LIFE ASSURANCE REPRESENTATIVE.SOFT MUD MOLDER Work Phone: [facility] 01-11-2022 18:23-0400 Systolic blood pressure 142 mm[Hg] Dari White LIFE ASSURANCE REPRESENTATIVE.SOFT MUD MOLDER Work Phone: [facility] 11-15-2021 21:00-0400 Respiratory rate 16 /min Dr. Juan Alfaro Work Phone: [facility] Work Phone: 11-15-2021 21:00-0400 SaO2% (BldA) [Mass fraction] 98 % Dr. Juan Alfaro Work Phone: [facility] Work Phone: 11-15-2021 18:42-0400 Diastolic blood pressure 68 mm[Hg] Dr. Juan Alfaro Work Phone: [facility] Work Phone: 11-15-2021 18:42-0400 Heart rate 83 /min Dr. Juan Alfaro Work Phone: [facility] Work Phone: 11-15-2021 18:42-0400 Systolic blood pressure 120 mm[Hg] Dr. Juan Alfaro Work Phone: [facility] Work Phone: 11-15-2021 17:33-0400 Body height 157.[address] Juan Alfaro Work Phone: [facility] Work Phone: 11-15-2021 17:33-0400 Body mass index (BMI) [Ratio] 32.5 kg/m2 Dr. Juan Alfaro Work Phone: [facility] Work Phone: 11-15-2021 17:33-0400 Body temperature 98.2 [degF] Dr. Juan Alfaro Work Phone: [facility] Work Phone: 11-15-2021 17:33-0400 Body weight 80.[address] Juan Alfaro Work Phone: [facility] Work Phone: 11-10-2021 10:22-0400 Body height 154.[address] Juan Alfaro Work Phone: [facility] Work Phone: 11-10-2021 10:22-0400 Body temperature 98.8 [degF] Dr. Juan Alfaro Work Phone: [facility] Work Phone: 11-10-2021 10:22-0400 Diastolic blood pressure 90 mm[Hg] Dr. Juan Alfaro Work Phone: [facility] Work Phone: 11-10-2021 10:22-0400 Heart rate 76 /min Dr. Juan Alfaro Work Phone: [facility] Work Phone: 11-10-2021 10:22-0400 Respiratory rate 16 /min Dr. Juan Alfaro Work Phone: [facility] Work Phone: 11-10-2021 10:22-0400 SaO2% (BldA) [Mass fraction] 99 % Dr. Juan Alfaro Work Phone: [facility] Work Phone: 11-10-2021 10:22-0400 Systolic blood pressure 144 mm[Hg] Dr. Juan Alfaro Work Phone: [facility] Work Phone: 11-05-2021 13:31-0400 Body mass index (BMI) [Ratio] 35.2 kg/m2 Dr. Juan Alfaro Work Phone: [facility] Work Phone: 11-05-2021 13:31-0400 Diastolic blood pressure 70 mm[Hg] Dr. Juan Alfaro Work Phone: [facility] Work Phone: 11-05-2021 13:31-0400 Systolic blood pressure 118 mm[Hg] Dr. Juan Alfaro Work Phone: [facility] Work Phone: 11-05-2021 11:07-0400 Body weight 84.[address] Juan Alfaro Work Phone: [facility] Work Phone: 10-08-2021 11:06-0400 Body mass index (BMI) [Ratio] 36.5 kg/m2 Dr. Juan Alfaro Work Phone: [facility] Work Phone: 10-08-2021 11:06-0400 Body weight 87.[address] Juan Alfaro Work Phone: [facility] Work Phone: 10-08-2021 11:06-0400 Diastolic blood pressure 78 mm[Hg] Dr. Juan Alfaro Work Phone: [facility] Work Phone: 10-08-2021 11:06-0400 Systolic blood pressure 114 mm[Hg] Dr. Juan Alfaro Work Phone: [facility] Work Phone: 09-10-2021 08:43-0400 Body mass index (BMI) [Ratio] 38.3 kg/m2 Dr. Juan Alfaro Work Phone: [facility] Work Phone: 09-10-2021 08:43-0400 Body weight 92.[address] Juan Alfaro Work Phone: [facility] Work Phone: 09-10-2021 08:43-0400 Diastolic blood pressure 80 mm[Hg] Dr. Juan Alfaro Work Phone: [facility] Work Phone: 09-10-2021 08:43-0400 Systolic blood pressure 124 mm[Hg] Dr. Juan Alfaro Work Phone: [facility] Work Phone: 07-16-2021 10:13-0500 Body mass index (BMI) [Ratio] 37 kg/m2 Dr. Juan Alfaro Work Phone: [facility] Work Phone: 07-16-2021 10:13-0500 Body weight 88.[address] Juan Alfaro Work Phone: [facility] Work Phone: 07-16-2021 10:13-0500 Diastolic blood pressure 78 mm[Hg] Dr. Juan Alfaro Work Phone: [facility] Work Phone: 07-16-2021 10:13-0500 Systolic blood pressure 118 mm[Hg] Dr. Juan Alfaro Work Phone: [facility] Work Phone: Encounters Encounter Date Encounter Type Care Provider Facility Start: 04-04-2025 ambulatory Steph [place] [facility] Start: 03-25-2025 Encounter for other preprocedural examination Es Cline [facility] Start: 03-19-20[facility] Start: 03-19-2025 End: 03-19-2025 ambulatory Steph [place] Facility:[facility] Start: 03-13-2025 End: 03-13-[address] Es Cline DO -[facility] Work Phone: Start: 03-13-2025 End: 03-13-2025 ambulatory Stephana Mendeslay Facility:[facility] Start: 02-21-2025 End: 02-21-2025 Patient encounter procedure Hunter Del Angel CO -[facility] Work Phone: Start: 02-21-2025 End: 02-21-[address] Steph Camacho MD Work Phone: [facility] Start: 02-11-2025 End: 02-11-[address] Steph Camacho MD Work Phone: -Laboratory Start: 02-11-2025 End: 02-11-[address] Es Cline DO -Laboratory Work Phone: Start: 02-11-2025 End: 02-11-[address] Es Cline DO -[facility] Work Phone: Start: 02-11-2025 End: 02-11-[address] Steph Camacho MD Work Phone: -[facility] Start: 02-11-2025 End: 02-11-2025 ambulatory Steph Camacho Facility:[facility] Start: 02-08-2025 End: 02-08-[address] Es Cline DO -[facility] Out Work Phone: Start: 02-08-2025 End: 02-08-[address] Steph Camacho MD Work Phone: -[facility] Start: 02-01-2025 End: 02-01-2025 Office outpatient visit 15 minutes Coral Pierre MD Work Phone: [facility] Comment on above: Insulin resistance ( Primary Dx); BMI 30.0-30.9,adult; Class 1 obesity due to excess calories with serious comorbidity and body mass index (BMI) of 30.0 to 30.9 in adult Start: 02-01-2025 End: 02-01-2025 ambulatory [facility] Start: 01-31-2025 End: 01-31-[address] Es [facility] Out Work Phone: Start: 01-31-2025 End: 01-31-[address] Steph Camacho MD Work Phone: -[facility] Out Start: 01-25-2025 End: 01-25-[address] Es [facility] Out Work Phone: Start: 01-25-2025 End: 01-25-[address] Steph Camacho MD Work Phone: -[facility] Out Start: 01-23-2025 End: 01-23-[address] Steph Camacho MD Work Phone: -Ultrasound [facility] Start: 01-23-2025 End: 01-23-[address] Es Cline DO -Ultrasound [facility] Work Phone: Start: 01-22-2025 End: 01-23-2025 ambulatory Sola Cleveland PA-C Work Phone: Rheumatology Comment on above: Hello Start: 01-18-2025 End: 01-18-2025 ambulatory SOLA C[place] Facility:[facility] Start: 01-18-2025 End: 01-18-2025 Subsequent hospital visit by physician [facility] Work Phone: Radiology Comment on above: Pain in joint, multi ple sites [M25.50] Start: 01-18-2025 End: 01-18-2025 ambulatory SOLA C[place]NAD Facility:[facility] Start: 01-18-2025 End: 01-18-2025 Office outpatient new 60 minutes Sola Cleveland PA-C Work Phone: Rheumatology Comment on above: Pain in joint, multi ple sites (Primary Dx); Tear of right acetabular labrum, sequela; Lumbar herniated disc; Family history of autoimmune disorder Start: 01-17-2025 End: 01-17-2025 ambulatory STEPH CAMACHO MD Facility:[facility] Start: 01-17-2025 End: 01-17-2025 Minor Procedure BROOKLYNN GEMMA LIFE ASSURANCE REPRESENTATIVE-SOFT MUD MOLDER [facility] Start: 01-11-2025 End: 01-11-[address] Es Cline DO -[facility] Work Phone: Start: 01-11-2025 End: 01-11-2025 ambulatory No Primary Care Physician -[facility] Start: 01-11-2025 End: 01-11-2025 ambulatory Es Cline Facility:[facility] Start: 01-05-2025 End: 01-06-2025 Emergency department patient visit No Primary Care Physician -Emergency Department Work Phone: Start: 01-04-2025 End: 01-04-2025 ambulatory No Primary Care Physician -Laboratory Start: 01-04-2025 End: 01-04-[address] Es Cline DO -Laboratory Work Phone: Start: 01-04-2025 End: 01-04-2025 ambulatory Steph [place] Facility:[facility] Start: 12-19-2024 End: 12-19-2024 ambulatory [facility] Start: 12-19-2024 End: 12-19-2024 Office outpatient visit 25 minutes Coral Pierre MD Work Phone: [facility] [place] Comment on above: Insulin resistance ( Primary Dx); BMI 31.0-31.9,adult; Class 1 obesity due to excess calories with serious comorbidity and body mass index (BMI) of 31.0 to 31.9 in adult Start: 12-13-2024 End: 12-13-2024 ambulatory STEPH CAMACHO MD Facility:[facility] Start: 12-13-2024 End: 12-13-2024 Minor Procedure VALENTINA SANTILLAN MD [facility] Start: 12-03-2024 End: 12-03-2024 Patient encounter procedure Afsaneh Snow NP-C -[facility] Work Phone: Start: 12-03-2024 End: 12-03-2024 ambulatory No Primary Care Physician -[facility] Start: 12-03-2024 End: 12-03-2024 ambulatory Steph [place] Facility:[facility] Start: 11-26-2024 ambulatory Stephcarla Camacho Facility :[facility] Start: 11-13-2024 End: 11-13-2024 E-mail encounter from caregiver Sola Cleveland PA-C Work Phone: Rheumatology Start: 11-13-2024 End: 11-13-2024 Patient encounter procedure Sola Cleveland PA-C Work Phone: Rheumatology Comment on above: Appointment Request Start: 11-07-2024 End: 11-07-2024 ambulatory CORAL PIERRE [facility] Start: 11-07-2024 End: 11-07-2024 Office outpatient visit 25 minutes Coral Pierre MD Work Phone: [facility] [place] Comment on above: Insulin resistance ( Primary Dx); BMI 31.0-31.9,adult; Class 1 obesity due to excess calories with serious comorbidity and body mass index (BMI) of 31.0 to 31.9 in adult Start: 10-09-2024 End: 10-09-2024 Patient encounter procedure Alisson LEON -[facility] Work Phone: Start: 10-09-2024 End: 10-09-2024 ambulatory No Primary Care Physician [facility] Work Phone: Start: 10-08-2024 Encounter for gynecological examination (general) (routine) [facility] Start: 10-06-2024 End: 10-06-2024 ambulatory No Primary Care Physician [facility] Work Phone: Start: 10-06-2024 End: 10-06-2024 Patient encounter procedure Alisson LEON -[facility] Work Phone: Start: 10-06-2024 End: 10-06-2024 ambulatory Tia Kumar NP Facility:[facility] Start: 09-25-2024 End: 09-25-[address] [facility]: Start: 09-25-2024 End: 09-25-[address] Es Cline [facility] Start: 09-25-2024 End: 09-25-2024 ambulatory Steph Camacho Facility:[facility] Start: 09-19-2024 End: 09-19-[address] Steph Camacho MD -Laboratory [facility] Start: 09-19-2024 End: 09-19-2024 ambulatory Steph Cmaacho Facility:[facility] Start: 09-17-2024 End: 09-17-[address] Steph Camacho MD -[facility] Work Phone: Start: 09-17-2024 End: 09-17-2024 ambulatory No Primary Care Physician Facility:[facility] Start: 09-03-2024 End: 09-03-[address] Que Virgen MD -[facility] Start: 09-03-2024 End: 09-03-2024 ambulatory Que Virgen Facility:[facility] Start: 09-03-2024 End: 09-03-2024 Patient encounter procedure Alisson LEON -[facility] Work Phone: Start: 09-03-2024 End: 09-03-2024 ambulatory Alisson Kumar Facility:[facility] Start: 08-24-2024 End: 08-24-2024 ambulatory Vidhya BHAT Work Phone: [facility] Work Phone: Start: 08-24-2024 End: 08-24-2024 Patient encounter procedure Altaf LEON -[facility] Work Phone: Start: 08-24-2024 End: 08-24-2024 ambulatory Altaf LEON Facility:[facility] Start: 08-22-2024 End: 08-22-2024 Patient encounter procedure Altaf LEON -[facility] Work Phone: Start: 08-22-2024 End: 08-22-2024 ambulatory No Primary Care Physician Facility:[facility] Start: 08-01-2024 End: 08-01-2024 Emergency department patient visit RENEA CASAREZ DO Facility:[facility] Start: 07-28-2024 End: 07-28-2024 Patient encounter procedure Daniel LEON -[facility] Work Phone: Start: 07-28-2024 End: 07-28-2024 ambulatory No Primary Care Physician Facility:[facility] Start: 07-24-2024 End: 08-01-2024 Telephone encounter Aden Davila MD Work Phone: [facility] [place] Comment on above: Referral; Appointmen t Request Start: 07-13-2024 End: 07-13-2024 Office outpatient visit 25 minutes Coral Pierre MD Work Phone: [facility] [place] Comment on above: Insulin resistance ( Primary Dx); BMI 30.0-30.9,adult; Class 1 obesity due to excess calories with serious comorbidity and body mass index (BMI) of 30.0 to 30.9 in adult Start: 07-13-2024 End: 07-13-2024 ambulatory [facility] Start: 07-10-2024 End: 07-10-2024 Telephone encounter No Pcp (Hist) [facility] Comment on above: Patient Question Start: 07-10-2024 End: 07-10-2024 Patient encounter procedure Vandana Mireles APRN.SOFT MUD MOLDER Work Phone: [facility] Comment on above: Generalized weakness (Primary Dx) Start: 07-10-2024 End: 07-10-2024 Emergency department patient visit Dr. Gonzalo Blanco MD -Emergency Department Work Phone: Start: 07-10-2024 End: 07-10-2024 ambulatory SELF Facility:[facility] Start: 07-08-2024 End: 07-08-2024 ambulatory SOLA C[place] Facility:[facility] Start: 07-08-2024 End: 07-08-2024 Patient encounter procedure Steve Cummins APRN.SOFT MUD MOLDER Work Phone: [facility] Comment on above: Lower resp. tract in fection (Primary Dx) Start: 06-26-2024 ambulatory Bo Simms Facility :[facility] Start: 06-15-2024 End: 06-15-2024 Office outpatient visit 25 minutes Coral Pierre MD Work Phone: [facility] [place] Comment on above: Insulin resistance ( Primary Dx); BMI 30.0-30.9,adult; Class 1 obesity due to excess calories with serious comorbidity and body mass index (BMI) of 30.0 to 30.9 in adult Start: 06-15-2024 End: 06-15-2024 ambulatory [facility] Start: 06-12-2024 End: 06-12-2024 Refill Lory Del Castillo DO Work Phone: Dermatology [facility] Comment on above: Refill Request Start: 06-06-2024 End: 06-06-2024 Patient encounter procedure Santino Aguilera MD Work Phone: Gastroenterology Comment on above: Constipation, unspec ified constipation type (Primary Dx) Start: 06-06-2024 End: 06-06-2024 ambulatory SANTINO AGUILERA Facility:[facility] Start: 06-06-2024 ambulatory SELF Facility:[facility] Start: 05-25-2024 End: 05-25-2024 Patient encounter procedure Maira LEON -[facility] Work Phone: Start: 05-25-2024 End: 05-25-2024 ambulatory Renea Bassett Facility:[facility] Start: 05-11-2024 End: 05-11-2024 Patient encounter procedure Vidhya Anderson NP-C -Nuclear Medicine, [facility] Work Phone: Start: 05-11-2024 End: 05-11-2024 ambulatory No Primary Care Physician Facility:[facility] Start: 05-04-2024 End: 05-04-2024 Emergency department patient visit KAMILA MEDINA DO [facility] Start: 03-30-2024 End: 03-30-2024 Subsequent hospital visit by physician [facility] Work Phone: Radiology Comment on above: Acute cough [R05.1] Start: 03-30-2024 End: 03-30-2024 ambulatory RENEA BASSETT Facility:[facility] Start: 03-30-2024 End: 03-30-2024 Patient encounter procedure Dari White APRN.SOFT MUD MOLDER Work Phone: [facility] Comment on above: Acute cough (Primary Dx); Exacerbation of asthma, unspecified asthma severity, unspecified whether persistent; Rhinosinusitis Start: 03-29-2024 End: 03-30-2024 Telephone encounter Coral Pierre MD Work Phone: [facility] Comment on above: Other (PATIENT [facility]) Start: 01-10-2024 End: 01-11-2024 Refill Coral Pirere MD Work Phone: [facility] [place] Comment on above: Insulin resistance Start: 12-09-2023 End: 12-09-2023 Office outpatient visit 15 minutes Coral Pierre MD Work Phone: [employer] [place] Comment on above: Insulin resistance ( Primary Dx); BMI 26.0-26.9,adult; Overweight (BMI 25.0-29.9) Start: 11-30-2023 End: 11-30-2023 Telephone encounter Coral Pierre MD Work Phone: [employer] [facility] [place] Comment on above: Results (CT Scan) Start: 11-29-2023 End: 11-30-2023 Refill Coral Pierre MD Work Phone: [employer] [place] Comment on above: Insulin resistance Start: 11-23-2023 End: 11-23-2023 Telephone encounter Coral Pierre MD Work Phone: [employer] [facility] [place] Start: 11-11-2023 Patient encounter status Vidhya BHAT Work Phone: [facility] Start: 11-02-2023 End: 11-02-2023 Office outpatient visit 15 minutes Coral Pierre MD Work Phone: [facility] [place] Comment on above: Overweight (BMI 25.0 -29.9) (Primary Dx); Insulin resistance; BMI 26.0-26.9,adult Start: 08-09-2023 End: 08-09-2023 ambulatory AJAY NGUYỄN [facility] Start: 08-09-2023 End: 08-09-2023 Office outpatient new 45 minutes Ajay Nguyễn MD Work Phone: [facility] [place] Comment on above: Chronic maxillary si nusitis (Primary Dx); Chronic migraine without aura without status migrainosus, not intractable; Non-seasonal allergic rhinitis, unspecified trigger Start: 07-29-2023 End: 07-29-2023 Office outpatient visit 15 minutes Coral Pierre MD Work Phone: [facility] [place] Comment on above: Insulin resistance ( Primary Dx); BMI 25.0-25.9,adult; Overweight (BMI 25.0-29.9) Start: 07-22-2023 Telephone encounter Lory lan DO Work Phone: Dermatology [employer] Comment on above: Prescription Refills Start: 07-22-2023 End: 07-22-2023 Patient encounter procedure Lory Del Castillo DO Work Phone: [employer] Comment on above: Acne vulgaris (Prima ry Dx); Post-inflammatory hyperpigmentation; Generalized hyperhidrosis Start: 06-16-2023 End: 06-16-2023 ambulatory DO Jacqueline Cordova Work Phone: [facility] Work Phone: Start: 06-16-2023 End: 06-16-2023 Patient encounter procedure DO Jacqueline Cordova Work Phone: [facility]-Laboratory, [facility] Start: 06-03-2023 End: 06-03-2023 Office outpatient visit 15 minutes Coral Pierre MD Work Phone: [facility] Comment on above: Insulin resistance ( Primary Dx); BMI 25.0-25.9,adult; Overweight (BMI 25.0-29.9) Start: 06-01-2023 End: 06-01-2023 ambulatory DO Jacqueline Cordova Work Phone: [facility] Work Phone: Start: 06-01-2023 End: 06-01-2023 Patient encounter procedure DO [facility]queline Cordova [facility] Work [facility]: Start: 06-01-2023 End: 06-01-2023 Patient encounter procedure DO Jacqueline Cordova Work Phone: [facility] Work Phone: Start: 05-24-2023 End: 05-24-2023 ambulatory DO Jacqueline Cordova Work Phone: [facility] Work Phone: Start: 05-24-2023 End: 05-24-2023 Patient encounter procedure DO Jacqueline Cordova Work Phone: [facility]-Laboratory, Specimen Work Phone: Start: 05-24-2023 End: 05-24-2023 Patient encounter procedure DO Jacqueline Cordova Work Phone: [facility] Work Phone: Start: 05-10-2023 End: 05-10-2023 Patient encounter procedure DO Jacqueline Cordova Work Phone: [facility] Work Phone: Start: 04-29-2023 End: 04-29-2023 Office outpatient visit 15 minutes Coral Pierre MD Work Phone: [facility] [place] Comment on above: Insulin resistance ( Primary Dx); BMI 27.0-27.9,adult; Overweight (BMI 25.0-29.9) Start: 04-22-2023 End: 04-22-2023 ambulatory DO Jacqueline Cordova Work Phone: [facility] Work Phone: Start: 04-22-2023 End: 04-22-2023 Patient encounter procedure DO Jacqueline Cordova [facility] Work [facility] Start: 04-22-2023 End: 04-22-2023 Patient encounter procedure DO Jacqueline Cordova Work Phone: [facility] Work Phone: Start: 04-21-2023 End: 04-21-2023 ambulatory DO Jacqueline Redmond Tasha Work Phone: [facility] Work Phone: Start: 04-21-2023 End: 04-21-2023 Patient encounter procedure DO Jacqueline Tasha Work Phone: [facility] Work Phone: Start: 03-25-2023 End: 03-25-2023 Office outpatient visit 15 minutes Coral Pierre MD Work Phone: [facility] [place] Comment on above: Insulin resistance ( Primary Dx); BMI 28.0-28.9,adult; Overweight (BMI 25.0-29.9) Start: 02-25-2023 End: 02-25-2023 Office outpatient visit 15 minutes Coral Pierre MD Work Phone: [facility] [place] Comment on above: Insulin resistance ( Primary Dx); BMI 28.0-28.9,adult; Overweight (BMI 25.0-29.9) Start: 02-10-2023 Refill Coral Pierre MD Work Phone: [facility] [place] Comment on above: Insulin resistance Start: 01-23-2023 End: 01-23-2023 Patient encounter procedure DO Jacqueline Cordova Work Phone: [facility] Work Phone: Start: 01-19-2023 End: 01-19-2023 Office outpatient visit 15 minutes Coral Pierre MD Work Phone: [facility] [place] Comment on above: Insulin resistance ( Primary Dx); BMI 30.0-30.9,adult; Class 1 obesity without serious comorbidity with body mass index (BMI) of 30.0 to 30.9 in adult, unspecified obesity type Start: 01-14-2023 End: 01-14-2023 Patient encounter procedure DO Jacqueline Cordova Work Phone: [facility] Work Phone: Start: 01-12-2023 End: 01-12-2023 Emergency department patient visit Dr. Krista Parker Work Phone: [facility]-Emergency Department Work Phone: Start: 01-12-2023 End: 01-12-2023 Patient encounter procedure Shelia Tapia PA-C Work Phone: [facility] Comment on above: Abdominal pain, unsp ecified abdominal location (Primary Dx) Start: 01-08-2023 End: 01-08-[address] Krista Parker Work Phone: [facility] Work Phone: Start: 01-08-2023 End: 01-08-[address] Krista Parker Work Phone: [facility] Work Phone: Start: 01-05-2023 Refill Coral Pierre MD Work Phone: [facility] [place] Start: 12-20-2022 End: 12-20-[address] Krista Parker Work Phone: [facility] Work Phone: Start: 12-15-2022 End: 12-15-2022 Office outpatient visit 15 minutes Coral Pierre MD Work Phone: [facility] [place] Comment on above: Insulin resistance ( Primary Dx); BMI 30.0-30.9,adult; Class 1 obesity without serious comorbidity with body mass index (BMI) of 30.0 to 30.9 in adult, unspecified obesity type Start: 12-07-2022 End: 12-07-[address] Es Cline Work Phone: [facility] Work Phone: Start: 12-07-2022 End: 12-07-[address] Es Cline Work Phone: [facility] Work Phone: Start: 12-01-2022 Chart abstracting Colin german MD Work Phone: Plastic Surgery Comment on above: PHOTOS TAKEN Start: 12-01-2022 End: 12-01-2022 Patient encounter procedure Colin Bella MD Work Phone: Plastic Surgery Comment on above: Diastasis recti (Brenda polly Dx); Localized adiposity Start: 11-12-2022 End: 11-12-[address] Krista Parker Work Phone: [facility] Work Phone: Start: 11-12-2022 End: 11-12-[address] Krista Parker Work Phone: [facility] Start: 11-12-2022 End: 11-12-2022 Office outpatient visit 25 minutes Coral Pierre MD Work Phone: [facility] Comment on above: BMI 31.0-31.9,adult (Primary Dx); Class 1 obesity with serious comorbidity and body mass index (BMI) of 31.0 to 31.9 in adult, unspecified obesity type; JAZZMINE (obstructive sleep apnea); Insulin resistance Start: 09-21-2022 End: 09-21-[address] Krista Parker Work Phone: [facility] Start: 09-07-2022 Non-patient / Non-visit Dr. Krista Parker Work Phone: [facility] Start: 09-07-2022 End: 09-07-2022 Admission to same day surgery center Dr[facility] Krista Parker [facility] Start: 08-17-2022 End: 08-17-2022 Patient encounter procedure Dari White APRN.CNP Work Phone: [facility] Comment on above: Acute otitis media, bilateral (Primary Dx); Rhinosinusitis Start: 07-30-2022 End: 07-30-[address] Krista Parker Work Phone: [facility] Start: 07-08-2022 End: 07-08-[address] Juan Alfaro Work Phone: [facility] Work Phone: Start: 07-08-2022 End: 07-08-[address] Juan Alfaro [facility] Start: 07-08-2022 End: 07-08-[address] Juan Alfaro Work Phone: [facility] Start: 06-25-2022 End: 06-25-[address] Juan Alfaro Work Phone: [facility] Start: 06-23-2022 End: 06-23-[address] Juan Alfaro Work Phone: [facility] Work Phone: Start: 06-23-2022 End: 06-23-[address] Juan Alfaro [facility] Start: 06-23-2022 End: 06-23-[address] Juan Alfaro Work Phone: [facility] Start: 05-28-2022 End: 05-28-[address] Juan Alfaro Work Phone: [facility] Work Phone: Start: 05-28-2022 End: 05-28-[address] Juan Alfaro [facility] Start: 05-28-2022 End: 05-28-[address] Juan Alfaro Work Phone: [facility] Start: 04-19-2022 End: 04-19-[address] Juan Alfaro Work Phone: [facility] Work Phone: Start: 04-19-2022 End: 04-19-[address] Juan Alfaro [facility] Start: 04-14-2022 End: 04-14-[address] Juan Alfaro Work Phone: [facility] Start: 03-10-2022 End: 03-10-[address] Juan Alfaro Work Phone: [facility] Start: 01-11-2022 End: 01-11-2022 Patient encounter procedure Dari White APRN.CNP Work Phone: [facility] Comment on above: Acute otitis media, right (Primary Dx) Start: 11-15-2021 End: 11-15-2021 Emergency department patient visit Dr. Juan Alfaro Work Phone: [facility] Start: 11-10-2021 End: 11-10-[address] Juan Alfaro [facility] Start: 11-10-2021 End: 11-10-[address] Juan Alfaro Work Phone: [facility] Start: 11-05-2021 End: 11-05-[address] Juan Alfaro Work Phone: [facility] Start: 10-08-2021 End: 10-08-[address] Juan Alfaro Work Phone: [facility] Start: 09-10-2021 End: 09-10-[address] Juan Alfaro Work Phone: [facility] Start: 07-29-2021 End: 07-29-[address] Juan Alfaro Work Phone: [facility] Start: 07-16-2021 End: 07-16-[address] Juan Alfaro Work Phone: [facility] Start: 07-16-2021 End: 07-16-[address] Juan Alfaro Work Phone: [facility]Labor[facility], Specimen Start: 04-30-2020 End: 04-30-2020 Subsequent hospital visit by physician Joy Poole Work Phone: [facility] MRI Comment on above: Arrived Procedures Date Procedure Procedure Detail Performing Clinician Start: 01-23-[address] Beatrice Camacho MD Work Phone: Start: 01-17-2025 PM Transforaminal In j L/S Add LV with fluoro SN 1 BROOKLYNN Pontis LIFE ASSURANCE REPRESENTATIVE-SOFT MUD MOLDER Comment on above: auto-populated from documented surgical case Start: 01-06-2025 Plain chest X-ray No Pr imary Care Physician Start: 01-05-2025 Estimated creatinine clearance No Primary Care Physician Start: 01-04-2025 Total iron binding capacity measurement No Primary Care Physician Start: 12-13-2024 PM Inj Spine L/S Wit h Imaging SN 1 VALENTINA SANTILLAN MD Comment on above: auto-populated from documented surgical case Start: 12-13-2024 PM Inj Spine L/S Wit h Imaging SN 2 BROOKLYNN GEMMA LIFE ASSURANCE REPRESENTATIVE-SOFT MUD MOLDER Comment on above: auto-populated from documented surgical [...] e, two or three views Vidhya Anderson 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-C Work Phone: Start: 07-10-2024 Estimated creatinine clearance No Primary Care Physician Start: 07-10-2024 Measurement of renal function No Primary Care Physician Comment on above: GFR Calc Start: 07-10-2024 SARS-CoV-2, Influenz a & RSV (PCR) Vidhya Anderson 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-C Work Phone: Start: 07-10-2024 X-ray of chest, PA a nd lateral views Vidhya Anderson 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-C Work Phone: Start: 05-11-2024 Radionuclide gastric emptying study Vidhya Anderson 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-C Work Phone: Start: 03-30-2024 Radiologic exam ches t 2 views Dari White LIFE ASSURANCE REPRESENTATIVE.SOFT MUD MOLDER Work Phone: Start: 05-24-2023 Cytopathology proced ure, preparation of smear, genital source DO Jacqueline Cordova Work Phone: Start: 05-24-2023 Investigation of transfusion reaction DO Jacqueline Cordova Work Phone: Start: 04-22-2023 Cytopathology proced ure, preparation of smear, genital source DO Jacqueline Cordova Work Phone: Start: 04-22-2023 Investigation of transfusion reaction DO Jacqueline Cordova Work Phone: Start: 01-12-2023 Computed tomography of abdomen and pelvis with intravenous contrast Dr. Krista Parker Work Phone: Start: 01-07-2023 MRI of joint of lowe r extremity Dr. Krista Parker Work Phone: Start: 12-20-2022 Radiologic examinati on of knee Dr. Krista Parker Work Phone: Start: 11-15-2021 Plain chest X-ray Dr. Taras Alfaro Work Phone: Start: 07-29-[address] Juan Alfaro Work Phone: Start: 07-29-2021 Bilateral mammography Nam Alfaro Work Phone: Start: 07-29-[address] Juan Alfaro Work Phone: Start: 06-19-2021 Lipid 1996 panel - S ana or Plasma Coarl Pierre MD Work Phone: Start: 04-30-2020 Mri any jt lower ext rem w/contrast material Joy Poole Work Phone: Start: 04-30-2020 Arthrocentesis aspir &/inj major jt/bursa w/o us Joy Poole Work Phone: Adenoid excision VALENTINA SANTILLAN MD Appendectomy VALENTINA SANTILLAN MD Arthroscopy of hip VALENTINA CARTY MD Comment on above: right labral repair Arthroscopy of knee VALENTINA NORMAN MD Comment on above: bilateral torn Plica removed b ilaterally Bilateral salpingect radha with oophorectomy VLAENTINA SANTILLAN MD Cytopathology proced ure, preparation of smear, genital source Dr. Juan Alfaro Work Phone: Deliveries by lito estella (finding) VALENTINA SANTILLAN MD Comment on above: x 2 H/O: hysterectomy Status post hysterectomy Dr. Steph Camacho MD Work Phone: H/O: surgery Status post bila teral salpingectomy Dr. Krista Parker Work Phone: H/O: tubal ligation Status post tubal ligation Dr. Krista Parker Work Phone: Investigation of transfusion reaction Dr. Juan Alfaro Work Phone: Ligation of fallopia n tube VALENTINA SANTILLAN MD Reduction mammaplasty VALENTINA SOTELO MD Tonsillectomy VALENTINA SANTILLAN MD Plan of Treatment Date Care Activity Detail Author Start: 2065 RSV Immunization for Adults (1 - 1-dose 75+ series) RSV Immunization for Adults (1 - 1-dose 75+ series) [facility] Start: 2050 RSV Immunization age d 60 or older (1 - 1-dose 60+ series) RSV Immunization aged 60 or older (1 - 1-dose 60+ series) [facility] Start: 2040 Zoster Vaccines (1 of 2) Zoste r Vaccines (1 of 2) [facility] Start: 11-15-2029 DTaP/Tdap/Td vaccine (8 - Td) DTaP/Tdap/Td vaccine (8 - Td) [facility] [place] Start: 11-15-2029 DTaP/Tdap/Td Vaccine s (9 - Td or Tdap) DTaP/Tdap/Td Vaccines (9 - Td or Tdap) [facility] Start: 11-15-2029 Tetanus vaccination Tetanus: Every 1 0yrs [facility] Start: 11-15-2029 Urine microalbumin profile DTaP,Tdap,Td Vaccine (9 - Td or Tdap) [facility] Start: 06-19-2026 Lipid panel Lipid Panel [facility] Start: 05-03-2025 End: 05-03-2025 Patient encounter procedure 05/03/2025 11:30 AM EST Office Visit [facility] [address] [place] [phone] Coral Pierre MD [address] [place], [place] [id number] [facility] [place] Start: 03-20-2025 End: 03-20-2025 Patient encounter procedure 03/20/2025 11:00 AM EDT Office Visit [facility] [place] [address] [place] [phone] Phan Moyer MD [address] [facility] [facility] [address] [place], [place] [id number] [facility] Start: 03-19-2025 Ambulation without limitation [facility] Start: 03-19-2025 Medication education [facility] Start: 03-19-2025 Patient discharge [facility] Start: 03-19-2025 Planned voiding [facility] Start: 03-19-2025 Procedure discontinued [facility] Start: 03-19-2025 Taking patient vital signs [facility] Start: 03-19-2025 Vital signs measurements [facility] Start: 03-19-2025 [facility] Start: 03-19-2025 Total abdominal hysterectomy Lap Robotic Hysterectomy (Not Applicable) [facility] Start: 03-19-2025 Non-patient / Non-visit Non-pa tient / Non-visit -[facility] Start: 03-19-2025 End: 03-19-2025 Admission to same day surgery center [facility] Start: 02-11-2025 Patient encounter procedure Registered Clinical -Laboratory Work Phone: Start: 02-11-2025 End: 02-11-2025 Patient encounter procedure Irregular periods -[facility] Work Phone: Start: 01-25-2025 Intravenous infusion THER/PROP H/DIAG IV INF [facility] Start: 01-25-2025 Iv infusion therapy prophylaxis/dx ea hour [facility] Start: 01-25-2025 Vedolizumab therapy THER/PROPH /DIAG IV INF [facility] Start: 01-21-2025 COVID-19 Vaccine () COVID-19 Vaccine () [facility] Start: 01-21-2025 Influenza vaccination Influenza Vacc ine (#1) [facility] Start: 01-18-2025 End: 04-19-2025 ROBERT BY IFA WITH REFLEX [facility] Comment on above: Expected: 01/18/2025 , Expires: 04/19/2025 Start: 01-18-2025 End: 04-19-2025 Cyclic citrullinated peptide IgG Ab [Units/volume] in Serum or Plasma [facility] Comment on above: Expected: 01/18/2025 , Expires: 04/19/2025 Start: 01-18-2025 End: 01-18-2025 Patient encounter procedure 01/18/2025 8:00 AM EDT Office Visit Rheumatology [address] [address] [place], [address] [place] [address] Needing to see a rheumatory Arthritis, Doctor for pain in my hips Rheumatology Comment on above: Needing to see a rhe umatory Arthritis, Doctor for pain in my hips Start: 01-16-2025 End: 01-16-2025 Patient encounter procedure [facility] Start: 01-11-2025 Complete blood count [facility] Start: 01-11-2025 Thyroid stimulating hormone measurement [facility] Start: 01-06-2025 End: 01-06-2025 [facility] Start: 01-06-2025 [facility] Start: 12-19-2024 End: 12-19-2024 Patient encounter procedure 12/19/2024 10:30 AM EDT [facility] [place] [address] [place] [place] [address] Coral Pierre MD [address] [place] [id number] [facility] [place] Start: 09-03-2024 Patient referral [facility] Work Phone: Start: 08-22-2024 Patient referral [facility] Work Phone: Start: 08-10-2024 End: 08-10-2024 Patient encounter procedure 08/10/2024 10:50 AM EDT [facility] [place] [address] [place] [address] Coral Pierre MD [address] [place] [address] [facility] [place] Start: 07-13-2024 End: 07-13-2024 Patient encounter procedure 07/13/2024 2:30 PM EST [facility] - [place] [phone] Coral Pierre MD [address] [place], [place] [id number] [facility] [place] Start: 07-10-2024 [facility] Start: 05-23-2024 Medicare Advantage A nnual Wellness Visit Medicare Advantage Annual Wellness Visit [facility] Start: 04-06-2024 End: 04-06-2024 Patient encounter procedure 04/06/2024 3:20 PM EST [facility] [place] [address] Coral Pierre MD [address] [place] [address] [facility] [place] Start: 02-03-2024 End: 02-03-2024 Patient encounter procedure 02/03/2024 1:10 PM EDT Office Visit [facility] [address] [place] [phone] Coral Pierre MD [address] [place], [place] [id number] [facility] Start: 01-22-2024 Covid-19 Vaccine () Covid-19 Vaccine () [facility] Start: 01-22-2024 Influenza vaccination [facility] Start: 01-11-2024 End: 01-11-2024 Patient encounter procedure 01/11/2024 3:40 PM EDT Office Visit [facility] [address] [place] [phone] Coral Pierre MD [address] [place], [place] [id number] [facility] Start: 12-09-2023 End: 12-09-2023 Patient encounter procedure 12/09/2023 8:20 AM EDT Office Visit [facility] [address] [place] [address] Coral Pierre MD [address] [place], [place] [id number] [facility] Start: 09-12-2023 End: 09-12-2023 Patient encounter procedure 09/12/2023 1:00 PM EDT Office Visit [facility] [address] [place] [address] Ajay Nguyễn MD [address] [place] [address] [facility] Start: 09-02-2023 End: 09-02-2023 Patient encounter procedure 09/02/2023 11:30 AM EDT Office Visit [facility] [address] [place] [phone] Coral Pierre MD [address] [place], [place] [id number] [facility] Start: 07-29-2023 End: 07-29-2023 Patient encounter procedure 07/29/2023 11:40 AM EST Office Visit [facility] [address] [place] [address] Coral Pierre MD [address] [place], [place] [id number] [facility] Start: 06-03-2023 End: 06-03-2023 Patient encounter procedure 06/03/2023 11:40 AM EST Office Visit [facility] [address] [place] [phone] Coral Pierre MD [address] [place], [place] [id number] [facility] Start: 06-01-2023 Liquid based cervica l cytology screening [facility] Start: 05-23-2023 Medicare Advantage A nnual Wellness Visit Medicare Advantage Annual Wellness Visit [facility] Start: 04-29-2023 End: 04-29-2023 Patient encounter procedure 04/29/2023 2:00 PM EST Office Visit [facility] [address] [place] [address] Coral Pierre MD [address] [place], [place] [id number] [facility] Start: 03-25-2023 End: 03-25-2023 Patient encounter procedure 03/25/2023 11:10 AM EDT Office Visit [facility] [address] [place] [phone] Coral Pierre MD [address] [place], [place] [id number] [facility] Start: 02-25-2023 End: 02-25-2023 Patient encounter procedure 02/25/2023 2:10 PM EDT Office Visit [facility] [place] [address] [facility] [place] [phone] Coral Pierre MD [address] [place], [place] [id number] [facility] Start: 01-21-2023 COVID-19 Vaccine () COVID-19 Vaccine () [facility] Start: 01-21-2023 Influenza vaccination [facility] Start: 01-19-2023 End: 01-19-2023 Patient encounter procedure 01/19/2023 3:20 PM EDT Office Visit [facility] [address] [place] [address] Coral Pierre MD [address] [facility] [address] [place], [place] [id number] [facility] Start: 12-15-2022 End: 12-15-2022 Patient encounter procedure 12/15/2022 3:10 PM EDT Office Visit [facility] [place] [phone] Coral Pierre MD [address] [facility] [address] [place], [place] [id number] [facility] [place] Start: 09-07-2022 Ambulation without limitation [facility] Start: 09-07-2022 Medical regimen orde rs management [facility] Start: 09-07-2022 Medication education [facility] Start: 09-07-2022 Patient discharge [facility] Start: 09-07-2022 Procedure discontinued [facility] Start: 09-07-2022 Taking patient vital signs [facility] Start: 09-07-2022 Vital signs measurements [facility] Start: 09-07-2022 [facility] Start: 09-07-2022 Admission procedure [facility] Start: 09-07-2022 Anesthesia intraperitoneal lower abd w/laps nos ANESTH SURG LOWER ABDOMEN [facility] Start: 09-07-2022 Laparoscopy w/rmvl adnexal structures LAPAROSCOPY REMOVE ADNEXA [facility] Start: 06-19-2022 Diabetes mellitus screening Diabetes Screening [facility] Start: 02-18-2022 Pneumococcal Vaccine : Pediatrics (0 to 5 Years) and At-Risk Patients (6 to 49 Years) (2 of 2 - PCV) Pneumococcal Vaccine: Pediatrics (0 to 5 Years) and At-Risk Patients (6 to 49 Years) (2 of 2 - PCV) [facility] Start: 02-18-2022 Pneumococcal Vaccine : Pediatrics (0 to 5 Years) and At-Risk Patients (6 to 64 Years) (2 of 2 - PCV) Pneumococcal Vaccine: Pediatrics (0 to 5 Years) and At-Risk Patients (6 to 64 Years) (2 of 2 - PCV) [facility] Start: 01-21-2022 Influenza vaccination INFLUENZA (#1) [facility] Start: 11-15-2021 [facility] Work Phone: Start: 10-13-2021 PAP TESTING PAP TESTING [facility] Start: 10-13-2021 Screening for malign ant neoplasm of cervix Pap Testing [facility] Start: 09-15-2021 COVID-19 VACCINE (4 - Booster for Moderna series) COVID-19 VACCINE (4 - Booster for Moderna series) [facility] Start: 09-15-2021 COVID-19 VACCINE (4 - Moderna series) COVID-19 VACCINE (4 - Moderna series) [facility] Start: 2020 HPV TESTING HPV TESTING [facility] Start: 2020 Screening for malign ant neoplasm of cervix [facility] Start: 01-22-2020 Influenza vaccination Flu vaccine (# 1) [facility] [place] Start: 10-14-2019 Screening for malign ant neoplasm of cervix Cervical Cancer Screening [facility] Start: 06-23-2015 Urine microalbumin profile DTAP,TDAP,TD (7 - Td or Tdap) [facility] Start: 2011 Screening for malign ant neoplasm of cervix [facility] Start: 2008 ANNUAL PCP TEAM CREW TEAM MEMBER ENA DISEASE VISIT ANNUAL PCP TEAM CHRONIC DISEASE VISIT [facility] Start: 2008 Hepatitis C screening Hepatitis C Sc reening [facility] Start: 2008 SPIROMETRY SPIROMETRY [facility] Start: 2005 HIV screening [facility] Start: 04-26-2005 Varicella [facility] Start: 2002 Depression Monitoring Depression Mon itoring [facility] Start: 2002 Depression Screening [facility] Start: 1996 PNEUMOCOCCAL (1 - PCV) PNEUMOCOCCAL (1 - PCV) [facility] Start: 1993 History and physical examination, annual for health maintenance Wellness Visit [facility] Start: 1991 Varicella vaccine (1 of 2 - 2-dose childhood series) Varicella vaccine (1 of 2 - 2-dose childhood series) [facility] [place] Start: 1990 HIV screening HIV Screening [facility] Start: 1990 Medicare Advantage A nnual Wellness Visit (AWV) Medicare Advantage Annual Wellness Visit (AWV) [facility] CBC W Auto Different ial panel - Blood [facility] End: 08-08-2024 CT Sinuses WO contrast CT Sinus Stealth Without Contrast Imaging Routine Chronic maxillary sinusitis 1 Occurrences starting 08/09/2023 until 08/08/2024 [facility] Work Phone: Comment on above: 1 Occurrences starti ng 08/09/2023 until 08/08/2024 Erythrocyte mean corpuscular volume determination [facility] Ferritin [Mass/volum e] in Serum or Plasma [facility] Glucose [Mass/volume ] in Serum or Plasma [facility] Hematocrit [Volume Fraction] of Blood [facility] Hemoglobin [Mass/vol ume] in Blood [facility] Hemoglobin A1c/Hemoglobin.total in Blood [facility] Work Phone: Hemoglobin A1c/Hemoglobin.total in Blood [facility] Iron and Iron bindin g capacity panel - Serum or Plasma [facility] Leukocytes [#/volume ] in Blood [facility] Lipid 1996 panel - S ana or Plasma [facility] Mean corpuscular hemoglobin concentration determination [facility] Mean corpuscular hemoglobin determination [facility] Path report.final Dx Spec [facility] Patient Education [facility] Work Phone: Patient referral [facility] Work Phone: Platelets [#/volume] in Blood [facility] Red blood cell count [facility] Red cell distributio n width determination [facility] Source specific culture [facility] Thyroid stimulating hormone measurement [facility] US Gallbladder [facility] Pelvis [facility] Work Phone: [place] Pelvis [facility] Pelvis transvaginal [facility] Work Phone: End: 02-17-2026 XR HIP BILATERAL 5V PEL/AP/LAT EACH HIP XR HIP BILATERAL 5V PEL/AP/LAT EACH HIP Radiology Routine Pain in joint, multiple sites 1 Occurrences starting 01/18/2025 until 02/17/2026 [facility] Comment on above: 1 Occurrences starti ng 01/18/2025 until 02/17/2026 XR HIP BILATERAL 5V PEL/AP/LAT EACH HIP XR HIP BILATERAL 5V PEL/AP/LAT EACH HIP Radiology Routine Pain in joint, multiple sites 01/18/2025 9:38 AM EDT [facility] End: 02-17-2026 XR Knee - bilateral 4 Views XR KNEE GENERAL 4V AP BOTH/PA BOTH/LAT/MERC BILATERAL Radiology Routine Pain in joint, multiple sites 1 Occurrences starting 01/18/2025 until 02/17/2026 [facility] Work Phone: Comment on above: 1 Occurrences starti ng 01/18/2025 until 02/17/2026 XR Knee - bilateral 4 Views XR KNEE GENERAL 4V AP BOTH/PA BOTH/LAT/MERC BILATERAL Radiology Routine Pain in joint, multiple sites 01/18/2025 9:38 AM EDT [facility] End: 02-17-2026 XR Lumbar spine 3 Views XR LUMBAR GENERAL 3V AP/LAT/L5-S1 Radiology Routine Pain in joint, multiple sites 1 Occurrences starting 01/18/2025 until 02/17/2026 [facility] Comment on above: 1 Occurrences starti ng 01/18/2025 until 02/17/2026 XR Lumbar spine 3 Views XR LUMBA R GENERAL 3V AP/LAT/L5-S1 Radiology Routine Pain in joint, multiple sites 01/18/2025 9:38 AM EDT [facility] End: 02-17-2026 XR Sacroiliac Joint Views XR SACROILIAC JOINTS 2V AP PELVIS/FERGUESON Radiology Routine Pain in joint, multiple sites 1 Occurrences starting 01/18/2025 until 02/17/2026 [facility] Comment on above: 1 Occurrences starti ng 01/18/2025 until 02/17/2026 XR Sacroiliac Joint Views XR SAC ROILIAC JOINTS 2V AP PELVIS/FERGUESON Radiology Routine Pain in joint, multiple sites 01/18/2025 9:38 AM EDT [facility] Immunizations Immunization Date Immunization Notes Care Provider [facility] 02-17-2024 Influenza, injectabl e, [place] Canine Kidney, preservative free, quadrivalent Vidhya Anderson 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-C Work Phone: [facility] 02-17-2024 influenza virus vacc ine, unspecified formulation Coral Pierre MD Work Phone: [facility] 02-10-2023 influenza, injectabl e, quadrivalent, preservative free Vidhya Anderson 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-C Work Phone: [facility] 02-01-2022 influenza, injectabl e, quadrivalent, preservative free Vidhya Anderson 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-C Work Phone: [facility] 02-01-2022 influenza virus vacc ine, unspecified formulation Coral Pierre MD Work Phone: [facility] 07-21-2021 Covid (Moderna) Vidhya kovacs 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-C Work Phone: [facility] 02-18-2021 pneumococcal polysaccharide vaccine, 23 valent Vidhya Anderson 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-C Work Phone: [facility] 02-13-2021 COVID-19 vaccine, fu ll dose (MODERNA) Dari White LIFE ASSURANCE REPRESENTATIVE.[facility] Work Phone: [facility] 01-16-2021 Covid (Moderna) Vidhya Liu kovacs 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-C Work Phone: [facility] 11-16-2019 tetanus toxoid, redu emmanuel diphtheria toxoid, and acellular pertussis vaccine, adsorbed Dr. Juan Alfaro Work Phone: [facility] 07-27-2007 human papilloma viru s vaccine, quadrivalent Dari White LIFE ASSURANCE REPRESENTATIVE.[facility] Work Phone: [facility] Work Phone: 02-14-2007 human papilloma viru s vaccine, quadrivalent Dari White LIFE ASSURANCE REPRESENTATIVE.[facility] Work Phone: [facility] 01-10-2007 human papilloma viru s vaccine, quadrivalent Dari White LIFE ASSURANCE REPRESENTATIVE.[facility] Work Phone: [facility] Work Phone: 01-10-2007 Meningococcal, MCV4, unspecified conjugate formulation(groups A, C, Y and W-135) Dari White LIFE ASSURANCE REPRESENTATIVE.[facility] Work Phone: [facility] Work Phone: 02-07-2006 hepatitis B vaccine, pediatric or pediatric/adolescent dosage Dari White LIFE ASSURANCE REPRESENTATIVE.[employer] Work Phone: [facility] Work Phone: 07-29-2005 hepatitis B vaccine, pediatric or pediatric/adolescent dosage Dari White LIFE ASSURANCE REPRESENTATIVE.[facility] Work Phone: [facility] Work Phone: 06-23-2005 hepatitis B vaccine, pediatric or pediatric/adolescent dosage Dari White LIFE ASSURANCE REPRESENTATIVE.[facility] Work Phone: [facility] Work Phone: 06-23-2005 tetanus toxoid, redu emmanuel diphtheria toxoid, and acellular pertussis vaccine, adsorbed Darirachael White LIFE ASSURANCE REPRESENTATIVE.[facility] Work Phone: [facility] Work Phone: 03-29-2005 influenza virus vacc ine, live, attenuated, for intranasal use Dari White LIFE ASSURANCE REPRESENTATIVE.[facility] Work Phone: [facility] Work Phone: 07-22-1999 Chicken Pox (disease) Helen White LIFE ASSURANCE REPRESENTATIVE.[facility] Work Phone: [facility] Work Phone: 11-21-1995 diphtheria, tetanus toxoids and pertussis vaccine Darirachael White LIFE ASSURANCE REPRESENTATIVE.[facility] Work Phone: [facility] Work Phone: 11-21-1995 measles, mumps and rubella virus vaccine Darirachael White LIFE ASSURANCE REPRESENTATIVE.[facility] Work Phone: [facility] Work Phone: 11-21-1995 trivalent poliovirus vaccine, live, oral Dari White LIFE ASSURANCE REPRESENTATIVE.[facility] Work Phone: [facility] Work Phone: 06-26-1992 tuberculin skin test ; purified protein derivative solution, intradermal Dari White LIFE ASSURANCE REPRESENTATIVE.[facility] Work Phone: [facility] 11-08-1991 diphtheria, tetanus toxoids and pertussis vaccine Darirachael White LIFE ASSURANCE REPRESENTATIVE.[facility] Work Phone: [facility] Work Phone: 11-08-1991 trivalent poliovirus vaccine, live, oral Dari White LIFE ASSURANCE REPRESENTATIVE.[facility] Work Phone: [facility] Work Phone: 08-09-1991 haemophilus influenz ae type b vaccine, HbOC conjugate Darirachael White LIFE ASSURANCE REPRESENTATIVE.[facility] Work Phone: [facility] Work Phone: 08-09-1991 measles, mumps and rubella virus vaccine Darirachael White LIFE ASSURANCE REPRESENTATIVE.[facility] Work Phone: [facility] Work Phone: 01-04-1991 haemophilus influenz ae type b vaccine, HbOC conjugate Dari White LIFE ASSURANCE REPRESENTATIVE.[facility] Work Phone: [facility] Work Phone: 1990 diphtheria, tetanus toxoids and pertussis vaccine Dari White LIFE ASSURANCE REPRESENTATIVE.[facility] Work Phone: [facility] Work Phone: 1990 haemophilus influenz ae type b vaccine, HbOC conjugate Dari White LIFE ASSURANCE REPRESENTATIVE.[facility] Work Phone: [facility] Work Phone: 1990 diphtheria, tetanus toxoids and pertussis vaccine Dari White LIFE ASSURANCE REPRESENTATIVE.[facility] Work Phone: [facility] Work Phone: 1990 haemophilus influenz ae type b vaccine, HbOC conjugate Dari White LIFE ASSURANCE REPRESENTATIVE.[facility] Work Phone: [facility] Work Phone: 1990 trivalent poliovirus vaccine, live, oral Dari White LIFE ASSURANCE REPRESENTATIVE.[facility] Work Phone: [facility] Work Phone: 1990 diphtheria, tetanus toxoids and pertussis vaccine Dari White LIFE ASSURANCE REPRESENTATIVE.[facility] Work Phone: [facility] Work Phone: 1990 trivalent poliovirus vaccine, live, oral Dari White LIFE ASSURANCE REPRESENTATIVE.[facility] Work Phone: [facility] Work Phone: Payers Date Payer Category Payer Private Health Insurance [id number] 2024 Private Health Insurance [id number] 2024 Self-pay [id number] 2022 Medicaid HMO UHC [employer] ONLY [id number] 2022 Medicare [id number]. 1.13.680.2. [id number] 2022 Medicare (Managed Care) 1.2. [id number]. [id number] 2022 Medicare HMO [id number]. 1.13.680.2. [id number] 2022 Unknown [id number] 2021 Medicaid [id number]. 1.13.159.2. [id number] 2021 Unknown [id number] 2015 Unknown [id number] 1990 Unknown [id number] 2.16.840.1.638754.3.579.2. 627 1990 Unknown [id number] 2.16.840.1.311559.3.579.2. 627 1990 Unknown [id number] 2.16840.1.942238.3.579.2. 627 1990 Unknown [id number] 2.16.840.1.969852.3.579.2. 627 Unknown [id number] 2.16.840.1.165403.3.579.2. 462 Unknown [id number] 2.16.840.1.770223.3.579.2. 462 Unknown [id number] 2.16.840.1.879541.3.579.2. 462 Unknown [id number] 2.16.840.1.592036.3.579.2. 462 Unknown [id number] 2..840.1.190830.3.579.2. 462 Unknown [id number] 2.840.1.880411.3.579.2. 462 Unknown [id number] 2.840.1.932364.3.579.2. 462 Unknown [id number] 2.840.1.657769.3.579.2. 462 Unknown [id number] 2.840.1.979102.3.579.2. 462 Unknown [id number] 2.840.1.081149.3.579.2. 462 Unknown [id number] 2.840.1.614916.3.579.2. 462 Unknown [id number] 2.840.1.913441.3.579.2. 462 Unknown [id number] 2.840.1.976950.3.579.2. 462 Unknown [id number] 2.840.1.363796.3.579.2. 462 Unknown [id number] 2..840.1.168841.3.579.2. 462 Unknown [id number] 2.16.840.1.727265.3.579.2. 462 Unknown [id number] 2.16.840.1.614407.3.579.2. 462 Unknown [id number] 2.840.1.752014.3.579.2. 462 Unknown [id number] 2.16.840.1.980601.3.579.2. 462 Unknown [id number] 2.16.840.1.449117.3.579.2. 462 Unknown [id number] 2.16.840.1.554652.3.579.2. 462 Unknown [id number] 2.16.840.1.975931.3.579.2. 462 Unknown [id number] 2.16.840.1.659931.3.579.2. 462 Unknown [id number] 2.16.840.1.098486.3.579.2. 462 Unknown [id number] 2.16.840.1.746895.3.579.2. 462 Unknown [id number] 2.16.840.1.738154.3.579.2. 462 Unknown [id number] 2.16.840.1.848841.3.579.2. 462 Unknown [id number] 2.16.840.1.421383.3.579.2. 462 Unknown [id number] 2.16.840.1.504497.3.579.2. 462 Unknown [id number] 2.16.840.1.272285.3.579.2. 462 Unknown [id number] 2.16.840.1.216552.3.579.2. 462 Unknown [id number] 2.16.840.1.524964.3.579.2. 462 Social History Date Type Detail Facility Tobacco smoking status NHIS Unknown if ever smoked [place], [place] Start: 1990 Sex Assigned At Not on file [place], [place] Start: 11-10-2021 End: 06-01-2023 Tobacco smoking status NHIS Unknown if ever smoked [facility] Start: 05-05-2018 None [facility] Start: 11-20-2018 With Family [facility] Start: 1990 Sex Assigned At Female [facility] Start: 01-11-2022 End: 03-07-2025 Tobacco smoking status NHIS Ex-smoker [facility] Work Phone: End: 05-23-2011 History of tobacco use Current smoker [facility] Work Phone: End: 05-23-2011 History of tobacco use Cigarette Smoker [facility] Work Phone: Start: 01-11-2022 End: 12-19-2024 Cigarettes smoked current (pack per day) - Reported 0.5 [facility] Start: 01-11-2022 End: 12-09-2023 Tobacco use and exposure Smokeless tobacco non-user [facility] Work Phone: Start: 01-11-2022 End: 12-19-2024 Alcohol intake Current drinker of alcohol (finding) [facility] Start: 01-11-2022 Tobacco Comment quit 2011 [facility] Start: 01-01-2022 End: 01-19-2023 Exposure to SARS-CoV-2 (event) Not sure [facility] Work Phone: Start: 05-11-2022 End: 12-19-2024 Tobacco use panel [facility] Start: 03-11-2022 Gender identity Identifies as female gender (finding) [facility] Start: 03-11-2022 Sexual orientation Heterosexual (fin ding) [facility] Start: 04-23-2012 National Score (1-100), lower number is lower risk 77 [facility] Start: 08-09-2023 Tobacco smoking status MIIS Never smoked tobacco [facility] Start: 08-09-2023 Alcohol intake Lifetime non-d wu (finding) [facility] Start: 12-21-2021 End: 05-04-2024 Sex Female (finding) [facility] Tobacco smoking status [facility] NEGATED: Highlighted row [facility] Medical Equipment Procedure Code Equipment Code Equipment Origin al Text Equipment Identifier Dates Robot-assisted total abdominal hysterectomy Collagen haemostatic agent, non-antimicrobial [id number] FDA Start: 03-19-2025 Appendectomy, laparoscopic RELOAD,STANDARD 45 [id number] FDA [...] /State Functional Status Date Assessment Result Facility 03-19-2025 Functional status Ambulates [facility] Work Phone: 05-04-2024 Functional Status Assistive Device None A [facility] 05-04-2024 Functional Status Standard Safet y ID band on, Call device within reach [facility] 10-11-2014 Are you deaf, or do you have serious difficulty hearing No 10/11/2014 9:59 AM Rochelle Yip LPN No [facility] 10-11-2014 Are you blind, or do you have serious difficulty seeing, even when wearing glasses No 10/11/2014 9:59 AM Rochelle Yip LPN No [facility] 10-11-2014 Do you have serious difficulty walking or climbing stairs No 10/11/2014 9:59 AM Rochelle Yip LPN No [facility] 10-11-2014 Do you have difficul ty dressing or bathing No 10/11/2014 9:59 AM EDT Rochelle Hernandez LPN No [facility] 10-11-2014 Because of a physica l, mental, or emotional condition, do you have difficulty doing errands alone such as visiting a physician's office or shopping No 10/11/2014 9:59 AM EDRochelle Rock LPN No [facility] Mental Status Date Assessment Result Facility 03-19-2025 Cognitive function Touch/Shaking [facility] Work Phone: 03-19-2025 Cognitive function Patient Orientation Pe [facility] Work Phone: 02-08-2025 Cognitive function Voice/Name [facility] Work Phone: 01-31-2025 Cognitive function Voice/Name [facility] Work Phone: 01-25-2025 Cognitive function Voice/Name [facility] Work Phone: 01-05-2025 Cognitive function Level Of Cons ciousness Awake;Alert;Appropriate;Fo llows Commands [facility] Work Phone: 07-10-2024 Cognitive function Voice/Name [facility] Work Phone: 05-04-2024 Mental Status Orientation Oriented x 4 [facility] 05-04-2024 Mental Status [facility] 09-07-2022 Cognitive function Voice/Name [facility] Work Phone: 10-11-2014 Because of a physica l, mental, or emotional condition, do you have serious difficulty concentrating, remembering, or making decisions No 10/11/2014 9:59 AM Rochelle Yip LPN No [facility] Clinical Notes 01-07-2016 to 03-19-2025 Note Date & Type Note Facility 03-19-2025 Note [facility] Medical Records Department [address] [place] [address] History Physical Exam 03/19/25 1018 MR#: [id number] Acct: [id number] Name: DARI APARICIO Rep #: [id number] : 1990 34 From: Es Cline DO PCP: Dr. Steph Camacho MD Status:[facility] Location: [place] [address] History and Physical Date of Admission: 03/19/25 Intake Vital Signs 02/11/2513:31 03/13/2510:56 03/13/2510:58 Height 5 ft 1 in 5 ft 1 in 5 ft 1 in Weight: 172 lb 6 oz BMI 32.5 BP 116/74 Intake Visit Reasons: TRH cysto 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: No Is patient in pain?: No Allergies megestrol (From Megace) Adverse Reaction (Intermediate, Verified 03/13/25 10:56) chest pain amoxicillin (From Augmentin) Adverse Reaction (Mild, Verified 03/13/25 10:56) Vomiting clavulanic acid (From Augmentin) Adverse Reaction (Mild, Verified 03/13/25 10:56) Vomiting naproxen Adverse Reaction (Verified 03/13/25 10:56) Other varenicline tartrate (From Chantix) Adverse Reaction (Verified 03/13/25 10:56) Other Medications ???Medication ???Instructions ???Recorded ???Confirmed ???Type desvenlafaxine succinate 50 mg 50 mg PO DAILY #90 tabs 08/22/24 03/13/25 Rx tablet,extended release 24 hr polyethylene glycol 3350 17 4 g PO QODAY 01/11/25 03/13/25 History gram/dose oral powder (Miralax) ondansetron 4 mg disintegrating 4 mg PO Q6H PRN nausea and 02/11/25 03/13/25 Rx tablet vomiting #30 tabs medroxyprogesterone 5 mg tablet 5 mg PO QDAY 60 days #60 tabs 02/13/25 03/13/25 Rx albuterol sulfate 2.5 mg/3 mL 1 mg inhalation Q4H PRN PRN 03/07/25 03/13/25 Hist ory (0.083 %) solution for nebulization wheezing albuterol sulfate 90 mcg/actuation 2 puff inhalation Q4H PRN PRN 03/07/25 03/13/25 Hi story aerosol inhaler wheezing dulaglutide 3 mg/0.5 mL 3 mg subcut QWEEK 03/07/25 03/13/25 History subcutaneous pen injector (Trulicity) omeprazole 40 mg capsule,delayed 20 mg PO BID 03/07/25 03/13/25 History release Post menopausal: No Patient : No : No PFSH Medical History Delayed gastric emptying Anxiety Arthritis High cholesterol Former smoker 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 She has been bleeding on and off heavily for several weeks. She continues to use a low dose progesterone to keep menses light until surgery. Ultrasound shows the following: FINDINGS: LMP: November (more content not included)... [facility] 03-13-2025 Progress note [facility] 02-11-2025 Progress note [facility] 02-11-2025 Progress note Note Date/Time February 11, 2025 2:20pm [facility] [address] [place] [address], [address] [place] [address] OFFICE VISIT Date of Service: 02/11/25 MR#: [id number] Acct: [id number] Name: DARI APARICIO Rep #: [id number] : 1990 Provider: Dr. Nataliia Cline DO Age/Sex: 34/F Location: [facility] Status: Signed Intake Vital Signs 01/11/25 14:32 02/08/25 09:40 02/11/25 13:31 02/11/25 13:31 Height 5 ft 1 in 5 ft 1 in 5 ft 1 in 5 ft 1 in Weight: 167 lb 5 oz BMI 31.6 BP 116/81 H Intake Visit Reasons: 3wk FU US Results Chief Complaint: 3wk FU US Results 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: No Is patient in pain?: No Allergies megestrol (From Megace) Adverse Reaction (Intermediate, Verified 02/11/25 13:24) chest pain amoxicillin (From Augmentin) Adverse Reaction (Mild, Verified 02/11/25 13:24) Vomiting clavulanic acid (From Augmentin) Adverse Reaction (Mild, Verified 02/11/25 13:24) Vomiting naproxen Adverse Reaction (Verified 02/11/25 13:24) Other varenicline tartrate (From Chantix) Adverse Reaction (Verified 02/11/25 13:24) Other Medications ?Medication ?Instructions ?Recorded ?Confirmed ?Type ondansetron 4 mg disintegrating 4 mg PO Q6H PRN nausea and 07/10/24 02/11/25 Rx tablet vomiting #10 tabs desvenlafaxine succinate 50 mg 50 mg PO DAILY #90 tabs 08/22/24 02/11/25 Rx tablet,extended release 24 hr omeprazole 40 mg capsule,delayed 40 mg PO BID #60 caps 09/17/24 02/11/25 Rx release dulaglutide 0.75 mg/0.5 mL 4.5 mg subcut QWEEK 5 02/11/25 History subcutaneous pen injector (Trulicity) polyethylene glycol 3350 17 4 g PO ONCE 01/11/2502/11 History gram/dose oral powder (Miralax) tranexamic acid 650 mg tablet 1,300 mg (2 x 650 mg) PO TID 5 02/07/25 02/11/25 Rx days #30 tabs Post menopausal: No Patient : No : [...] H/O adenoidectomy delivery delivered S/P laparoscopic appendectomy (~05/06/18) S/P right knee arthroscopy History of tonsillectomy [...] home: Yes additional social history: Single HPI 3wk FU US Results Details: DARI APARICIO is a 34 year old ( sections) who presents for results of ultrasound and for emb prior to planned hysterectomy. She has been bleeding on and off heavily for several weeks. She tried progesterone and this made her heart rate increase. She was prescribed TXA last week but has not taken it. We are blocked for March 19 for surgery. ultrasound showed the following; FINDINGS: LMP: December 18, 2024 Measurements: Uterus: 7.9 cm x 5.6 cm x 3.8 cm with a volume of 89.7 mL Endometrial Thickness: 10.2 mm. It is trilaminar. Right Ovary: 4.5 cm x 3.8 cm x 3.2 cm with a volume of 27.87 mL. Left Ovary: 3 cm x 2 cm x 1.7 cm with a volume of 5.26 mL. TRANSABDOMINAL: Uterus: Heterogeneous appearance of the myometrium suggestive of fibroid change. In the lower uterine segment, there is a 4 mm x 5 mm x 3 mm isoechoic density with fluid. This may represent the degenerating fibroid. Endometrium: Unremarkable. Right ovary: 3.6 cm 3.5 cm 2.6 cm cyst. Left ovary: Normal size and echotexture. Other: No large pelvic mass identified. Transvaginal sonography was performed to better visualize the endometrium. TRANSVAGINAL: Uterus: Anteverted. Heterogeneous appearance suggestive of fibroid change. Questionable tiny fibroid in the lower uterine segment. Nabothian cyst. Endometrium: Normal echotexture. Right ovary: 3.6 cm 3.5 cm 2.6 cm cyst. Left ovary: Normal size and echotexture. Other adnexal findings: None. Cul-de-sac: No free intraperitoneal fluid identified. Tenderness: No tenderness History 3 Elective abortions Hx Para 2 Spontaneous abortions Hx # Term Pregnancies 2 Ectopic pregnancies Hx # Pregnancies 1 Multiple births # of living children 2 Past Pregnancies Del. Date Name GA/Weeks Outcome Route Bth Weight Infant Gen Labor Lgth Anesthesia Del Locatn Provider FOB 04/19/12 Kika 39 live - full term Female [facility] Vandevmarlo 11/20/18 Eliezer spontaneous Female 02/12/20 Mo 39 live - full term 7lbs 15oz Male spinal [facility] GP Delivery Date: 02/12/20 Last Updated by: Renea Cordero GDM ROS Const ROS Unobtainable: All systems reviewed & are unremarkable except as noted in H Resp Resp: Reports system reviewed and no additional complaints, except as documented; Denies cough GI GI: Reports as per HPI Psych Psych: Reports system reviewed and no additional complaints, except as documented Exam Const General: cooperative, healthy appearing, comfortable and no acute distress Resp Effort & Inspection: normal respiratory effort General: bimanual renal exam normal bilaterally External Female Exam: normal appearance of the urethra Urethra: normal appearance of the urethra Speculum Exam - Vagina: normal appearance of the vagina Speculum Exam - Cervix: normal appearance of the cervix Bimanual Exam- Adnexa, other: normal adnexae and normal Pelvic Support: normal Skin General: no rashes or lesions noted Psych Appearance: grossly normal Speech and Movement: speech and movement normal Office Procedures Endometrial Biopsy Endometrial Biopsy Test: Yes declined Consent Signed: Yes Time out checklist: patient tenaculum used: Yes dilator used: No Details: Cervix prepped with betadine and pipelle inserted into uterus without complication. Specimen obtained and sent to lab for analysis. All instruments removed from vagina without complications. Excellent hemostasis noted. Coding Level of Care Code Off vis,est,level 4 Diagnoses Irregular periods N92.6 CPT Codes Endometrial Biopsy (87975) Assessment and Plan Assessment and Plan (1) Irregular periods: Status: Acute Orders: Orders Endometrial Biopsy Today N92.6 - Irregular menstruation, unspecified Plan emb performed today plan to rto for preop exam take TXA if needed rpt cbc today 02/11/25 1420 <Electronically signed by Es Vand e Velde DO> Date _ Es Cline DO Cosigner Signature: Date (if applicable) CC: ~ [facility] Work Phone: 1(352) 483-363809-12-2025 History of Present illness Narrative* Coral Pierre MD - 02/01/2025 1:00 PM EDT HPI, PHYSICAL EXAMINATION & PLAN HPI: Patient here today for follow up for non-surgical weight loss management Weight trend since last visit: stable stable This patient's excess weight is causing the following co-morbid conditions at this time:Other IR Physical Examination: Blood pressure 112/79, pulse 76, height 5' 2" (1.575 m), weight 168 lb (76.2 kg). General: This patient is calm and [...] 12 month weight goal: 0 Plan: Obesity class 1 stable Continue current management, continue weight loss program Focus on the meal structure, composition and portion control Review meal structure, meal composition and portion control in details in order will focus on the meal plan Unable to exercise due to LBP Unable to tolerate metformin, adipex, naltrexone On trulicity Back to 3 mg Will deal with uterine bleeding first Other IR Continue current management, continue weight [...] and completed. * Kiera Hinds MA - 02/01/2025 1:00 PM EDT [facility] [facility] MEDICAL WEIGHT LOSS MANAGEMENT PROGRAM ROOMING NOTE: FOLLOW UP VISIT Patient: Dari Aparicio Date of : 1990 Service Date: 02/01/2025 Patient History/Assessment Summary: The patient is a pleasant 34 y.o. year old female, who stands Height: 5' 2" (157.5 cm) tall with a weight of Weight: 168 lb (76.2 kg) pounds, resulting in a BMI of Body mass index is 30.73 kg/m . kg/m2. She is here for follow-up for medical treatment of Over weight Patient has the following question(s): none Pre Program Weight Metrics (Epic) (Surgical Wt Loss Management- baseline) This Visit Non-Surgical Subsequent Eval Date: 02/01/25 Height: 5' 2" (157.5 cm) Weight: 168 lb (76.2 kg) BMI: 30.72 Weight Change: -1.6 lbs Total Weight Change: -28.8 lbs % EBWL: 41% Subsequent Body Fat %: 36.86 Body Fat % Change: -0.36 Follow Up Weight Metrics Last Three Weights Including Today's Weight: Wt Readings from Last 3 Encounters: 02/01/25 168 lb (76.2 kg) 12/19/24 169 lb 9.6 oz (76.9 kg) 11/07/24 171 lb 3.2 oz (77.7 kg) Diabetes Do you currently have diabetes? [...] by: Kiera Hinds MA documented in this [facility]09-05-2025 Radiology Diagnostic study note [facility] Imaging Services [address] [place], [place] [address] Pelvic w/ Transvaginal MR#: [id number] Acct: [id number] Name: DARI APARICIO Rep #: [id number] : 1990 F 34 From: Mckay Yi MD PCP: Dr. Steph Camacho MD Status: REG CLI Study:Pelvic w/ Transvaginal Date of Exam: 01/23/25 Exam# [id number] Ordering Dr: Es Guillen DO PROCEDURE: PELVIC W/ TRANSVAGINAL REASON FOR EXAM: MENORRHAGIA HPV. TECHNIQUE: Procedure Code: [id number] Modality: US Procedure: PELVIC W/ TRANSVAGINAL COMPARISON: None FINDINGS: LMP: December 18, 2024 Measurements: Uterus: 7.9 cm x 5.6 cm x 3.8 cm with a volume of 89.7 mL Endometrial Thickness: 10.2 mm. It is trilaminar. Right Ovary: 4.5 cm x 3.8 cm x 3.2 cm with a volume of 27.87 mL. Left Ovary: 3 cm x 2 cm x 1.7 cm with a volume of 5.26 mL. TRANSABDOMINAL: Uterus: Heterogeneous appearance of the myometrium suggestive of fibroid change. In the lower uterine segment, there is a 4 mm x 5 mm x 3 mm isoechoic density with fluid. This may represent the degenerating fibroid. Endometrium: Unremarkable. Right ovary: 3.6 cm 3.5 cm 2.6 cm cyst. Left ovary: Normal size and echotexture. Other: No large pelvic mass identified. Transvaginal sonography was performed to better visualize the endometrium. TRANSVAGINAL: Uterus: Anteverted. Heterogeneous appearance suggestive of fibroid change. Questionable tiny fibroid in the lower uterine segment. Nabothian cyst. Endometrium: Normal echotexture. Right ovary: 3.6 cm 3.5 cm 2.6 cm cyst. Left ovary: Normal size and echotexture. Other adnexal findings: None. Cul-de-sac: No free intraperitoneal fluid identified. Tenderness: No tenderness US/Pelvic w/ Transvaginal IMPRESSION: Left ovarian cyst. Fibroid uterus. Reading Location: [place] [address] CC: Dr. Steph Camacho MD; Dr. Es Cline, DO ~ Pumper Helper: Signed [facility]08-29-2025 History of Present illness Narrative* Renea Garcia Tech - 01/18/2025 9:20 AM EDT Radiology Service Progress Note PATIENT NAME: Dari Aparicio DATE OF SERVICE: January 18, 2025 TIME: 9:34 AM PATIENT IDENTITY VERIFICATION COMPLETED USING TWO (2) IDENTIFIERS: Name and Date of confirmedby patient verbally. FALL SCREENING: Has the patient had 2 falls in the last year or 1 fall with injury or currently using an Ambulatory Assistive Device (Walker, Cane, Wheelchair, Crutches, etc.)? No PATIENT GENDER DATA: Assigned female at . status: : No status:NO. PATIENT RELEVANT IMPLANT DATA REVIEWED: Not Applicable PATIENT PRESENTS WITH AN IMPLANTABLE OR ATTACHED LASER BEAM COLOR SCANNER OPERATOR: No RADIOLOGY DEPARTMENT: General X-ray: Exam(s) Completed: Spine X-Ray(s): Lumbar AP / LAT / L5-S1 Pelvis X-Ray: Pelvis with Hip Bilateral and Wt. Bearing and sacroiliac joints Lower Extremity X-Ray(s): Knee, AP / Lat / Tunne / Merchant Bilateral and Wt. Bearing PERIPHERAL IV DATA: Not applicable SIGNED BY: Maddy Martins January 18, 2025 9:34 AM [facility] this [facility] NoteHNO ID: [id number] Author: RENEA GARCIA Tech Service: ? Author Type: Medical Collector Type: Progress Notes Filed: 01/18/2025 09:36 Note Text: Radiology Service Progress Note PATIENT NAME: Dari Aparicio DATE OF SERVICE: January 18, 2025 TIME: 9:34 AM PATIENT IDENTITY VERIFICATION COMPLETED USING TWO (2) IDENTIFIERS: Name and Date of confirmed by patient verbally. FALL SCREENING: Has the patient had 2 falls in the last year or 1 fall with injury or currently using an Ambulatory Assistive Device (Walker, Cane, Wheelchair, Crutches, etc.)? No PATIENT GENDER DATA: Assigned female at . status: : No status: NO. PATIENT RELEVANT IMPLANT DATA REVIEWED: Not Applicable PATIENT PRESENTS WITH AN IMPLANTABLE OR ATTACHED LASER BEAM COLOR SCANNER OPERATOR: No RADIOLOGY DEPARTMENT: General X-ray: Exam(s) Completed: Spine X-Ray(s): Lumbar AP / LAT / L5-S1 Pelvis X-Ray: Pelvis with Hip Bilateral and Wt. Bearing and sacroiliac joints Lower Extremity X-Ray(s): Knee, AP / Lat / Tunne / Merchant Bilateral and Wt. Bearing PERIPHERAL IV DATA: Not applicable SIGNED BY: Maddy Martins January 18, 2025 9:34 [facility]rom[facility] [id number] History of Present illness Narrative* Sola Cleveland PA-C - 01/18/2025 8:00 AM EDT Images from the original note were not included. [facility] Department of Rheumatic and Immunologic Diseases New Patient Date of Service: 01/18/2025 Patient: Dari Aparicio Medical Record: [id number] Primary Care Physician: No primary care provider on file. Referring Physician: Self Last Rhe[facility]: [facility] Recording using ambient MOAEC software for draft documentation of the visit was discussed with the patient/authorized sales representative business courses; all questions welcomed and answered. Patient/authorized sales representative business courses agreed to proceed SUBJECTIVE CC: Polyarticular joint pain History of Present Illness Patient is a 34 year-old female presenting for evaluation of polyarticular joint pain. Patient is the primary historian. Patient has a significant past medical history of obesity, irritable bowel syndrome (IBS), insulin resistance, exercise-induced asthma, generalized anxiety disorder, major depressive disorder, attention deficit hyperactivity disorder (ADHD), and nicotine dependency disorder in remission Relevant Serology Results: 09/16/2016: ROBERT by IFA screen negative Most recent renal function panel: 03/09/2024 GFR: 118 mL/min/m Cr: 0.62 mg/dL CrCl [per Cockcroft-Gault formula]: 153 mL/min Current Pertinent Medications: none per chart review Past Rheumatologic Medications: oral Gabapentin, oral NSAIDs, and Acetaminophen Mrs. Dari Aparicio is a pleasant 34 year-old female with longstanding history of polyarticular jointpain considered secondary to several mechanical injuries Patient reports first experiencing musculoskeletal symptoms in 2018 Patient denies experiencing a specific eliciting or traumatic event or viral prodrome to account for symptom onset Joints initially involved: bilateral knees Diagnosed with plica syndrome based upon clinical interview and physical exam by Orthopedic surgeon, Dr. Cris Olson Subsequently completed bilateral knee arthroscopies for plica resections Completed postoperative Physical Therapy - denies maintenance of strengthening regimen since States that "knees have never been the same" Report of progressive crepitus, weakness, and locking sensation, most notable with stair ascension and descension While resuming strength training in 2019, patient reports sustaining a right hip acetabular labral tear Mechanism of injury: abductor machine use while actively squatting with maximum weight Patient reports surgical repair as first line of therapy under directive of [facility] Orthopedic team Patient reports that despite completion of 16-weeks of postoperative Physical Therapy, she has never experienced symptomatic improvement, further reporting chronic pain and inability to lie on her right side Due to chronic pain, updated diagnostic right hip MRI was completed in 2020, identifying a new, secondary tear Patient denies having completed surgical intervention due to her prior experience Patient denies consulting an alternative Orthopedic team to discuss symptoms and establishing an effective management strategy In June 2024, patient reports experiencing acute lumbar disc herniation Mechanism of injury: lifting a patient without assistance Report of severe left-sided sciatica and midline axial pain Administered two epidural corticosteroid injections under directive of [facility] withpain relief Most recent - 01/17/2025 Note of radiculopathy resolution Management strategies to date for musculoskeletal symptomology - including, but not limited to: activity modification, rest, bracing, ice application, Physical Therapy, oral analgesics, Gabapentin, intraarticular corticosteroid injections, lumbar epidural injections, and surgical intervention Due to 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 and pain recalcitrant to aforementioned mechanisms, patient presents to [facility] for further evaluation Father: Rheumatoid Arthritis Maternal aunt: Crohn's disease and Multiple Sclerosis (MS) Denies: Fever Lymphadenopathy Unintentional weight loss Skin manifestations, including, but not limited to: Malar rash, photosensitivity, nonscarring alopecia, digital ischemia consistent with Raynaud's phenomena, psoriasis, nail changes [pitting or dystrophy], tophi, and subcutaneous nodules History of or symptoms consistent with inflammatory eye disease History of inflammatory bowel disease - negative colonoscopies Limitations in joint mobility secondary to pain or contracture Back pain with inflammatory features: Improvement with exercise No improvement with rest Pain at night (with improvement upon arising) Dry eye or dry mouth Enthesitis Dactylitis Active joint swelling Prolonged morning gel phenomena Myalgias Muscular weakness Frequent, unplanned descents Chest pain Dyspnea Personal history of: Thromboembolic events Cholelithiasis Cardiovascular events Renal insufficiency Hypothyroidism or hyperparathyroidism Functional status: fair to good History of joint injuries/fractures: Right hip labral tear sustained at gym on hip abduction machine L5 disc herniation sustained in lifting accident History of joint replacements/surgeries: Bilateral knee arthroscopic plica resections: 2018 Ambulation status/assistive devices: stable without assistance Current Outpatient Medications on File Prior to Visit Medication Sig albuterol HFA (PROVENTIL HFA, VENTOLIN HFA) 90 mcg/actuation inhaler Inhale 2 Puffs as instructed every 4 hours as needed for wheezing/shortness of breath. aluminum chloride (DRYSOL) 20 % external solution APPLY TO CLEAN AREAS AT NIGHT omeprazole (PRILOSEC) 40 mg capsule Take 40 mg by mouth two times a day. albuterol (PROVENTIL) 2.5 mg /3 mL (0.083 [...] Take 25 mg by mouth once daily. No current facility-administered medications on file prior to visit. Review of Systems for Autoimmune Rheumatic Diseases Review of Systems CONSTITUTION: Negative for: Fever and Recent weight change HEENT: Negative for: Nosebleeds, Mouth sores, Trouble swallowing and Dry mouth RESPIRATORY: Negative for: Cough, Shortness of breath and Pain with breathing GASTROINTESTINAL: Positive for: Heartburn and Abdominal pain Negative for: Melena and Diarrhea MUSCULOSKELETAL: Positive for: Arthralgias, Myalgias, Muscle weakness, Joint swelling and Morning Joint Stiffness NEUROLOGICAL: Positive for: Headaches, Numbness and Memory loss SKIN: Positive for: Hair loss Negative for: Rash, Skin changes and Nail changes EYES: Negative for: Eye pain, Eye redness, Eye dryness and visual disturbance CARDIOVASCULAR: Positive for: Leg swelling Negative for: Chest pain GENITOURINARY: Negative for: Dysuria and Hematuria HEMATOLOGIC/LYMPHATIC: Negative for: Swollen glands All other reviewed and negative other than HPI. 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 Physical activity: no formal aerobic exercise Substance use Tobacco use: former every day smoker [ages [age]] "one pack would last a week" Alcohol use: rare Marijuana and illicit drugs: none Stress level: moderate Environmental exposure: none to patient's knowledge Personal history of cancer: none Age-appropriate cancer screening: - Annual skin screening: none per chart review - Mammogram: 2012 - Pap smear: 10/13/2016 - Colonoscopy: 01/07/2016 Vaccination Status: - Flu vaccine: yes - Prevnar / Pneumovax: none per chart review - Shingrix/ Zostavax: none per chart review - COVID19: 3 doses - last on 07/21/2021 PAST MEDICAL HISTORY Diagnosis Date Anxiety Asthma [...] TONSILLECTOMY HX -2009 tonsils and adnoids removed FAMILY HISTORY Adopted: Yes Problem Relation Age [...] disease [Other]) Other 1/2 sister with crohns SOCIAL HISTORY[1] PAIN EVALUATION 01/16/20252042 Pain Level: 8 Pain Location: Other: See Comment Description: Aching;Burning;Sharp;Shooting Duration Amount of Time: 2019 Duration Units: Years Frequency: Continuous Intervention/Comfort measure: Reposition;Cold;Heat PROMIS Assessments 09/16/2016 05/30/2024 01/16/2025 PROMIS Assessments Physical Health Percentile 2.07 2 1 0 Mental Health Percentile 5.26 5 1 0 Pain Score 9 2 2 2 Pain Interference Percentile 4 Fatigue Percentile 1 Physical Function Percentile 8 Multiple values from one day are sorted in reverse-chronological order RAPID 3 M[place]le[place]an Activities of Daily Living 01/16/2025 8:48 PM Dress self? With SOME difficulty Get in and out of bed? With SOME difficulty Walk outdoors? With SOME difficulty Wash and dry body? With SOME difficulty Get in and out of car? With MUCH difficulty RAPID 3 Disease Activity Weighed Score Levels: 0 - 1: Near Remission 1.3 - 2.0: Low Severity 2.3 - 4.0: Moderate Severity 4.3 - 10.0: High Severity 01/16/2025 RAPID-3 Weighed Score RAPID 3 Weighed Score 6.89 (High severity ) OBJECTIVE BP 107/75 Pulse 98 Temp 98.6 Ht 5' 1" (1.55m) Wt 167 lb 15.9 oz (76.2kg) SpO2 98% LMP 12/18/2024 BMI 31.76 kg/(m^2). Physical Exam Vitals reviewed. Constitutional: Appearance: She is obese. HENT: Head: Normocephalic and atraumatic. Jaw: There is normal jaw occlusion. Salivary Glands: Right salivary gland is not diffusely enlarged or tender. Left salivary gland is not diffusely enlarged or tender. Right Ear: Hearing and external ear normal. Left Ear: Hearing and external ear normal. Nose: Nose normal. Mouth/Throat: Mouth: No oral lesions. Pharynx: Oropharynx is clear. Eyes: General: Lids are normal. Gaze aligned appropriately. Conjunctiva/sclera: Conjunctivae normal. Cardiovascular: Rate and Rhythm: Normal rate and regular rhythm. Pulmonary: Effort: Pulmonary effort is normal. No respiratory distress. Musculoskeletal: Cervical back: Full passive range of motion without pain. Muscular tenderness (trapezial hypertonicity) present. No spinous process tenderness. Right lower leg: No edema. Left lower leg: No edema. Lymphadenopathy: Cervical: No cervical adenopathy. Skin: Findings: No rash. Neurological: General: No focal deficit present. Mental Status: She is alert. Psychiatric: Behavior: Behavior is cooperative. Musculoskeletal: Tender points are absent. Compression of muscle groups are not tender. Spine: No limitations in flexion or extension. TTP of the lumbar spine and paraspinal region. Shoulders: Intact ROM without reported pain. No appreciable swelling or tenderness with palpation Elbows: No flexion contractures. No appreciable swelling, deformities, or tenderness with palpation. No bursitis. No limited ROM Wrists: No limitation of flexion or extension. No appreciable swelling or tenderness with palpation. No limited ROM Hands: Able to make full fists bilaterally. CMC: No CMC squaring. Nontender. MCP: No synovitis. Nontender. PIP: No hypertrophic bony changes. No synovitis. Nontender. DIP: No hypertrophic bony changes. No synovitis. Nontender. Hips: No SI ttp. Painless log roll. Intact ROM. No tenderness with palpation of the lateral hip. ELMER negative. Knees: No gross deformity. No appreciable effusion. Tenderness with palpation of joint lines of right. No crepitus. Ankles: No limitation of plantarflexion or dorsiflexion. No appreciable effusion. No tenderness with palpation. Compression of Burnside's tendon is not painful. Feet: No deformity. No evidence of synovitis or tenderness with palpation. 07/10/2024 07/08/2024 06/06/2024 03/30/2024 12/01/2022 Weight Weight 168 lb 6.9 oz 168 lb 10.4 oz 161 lb 151 lb 0.2 oz 172 lb 07/08/2024 03/30/2024 12/01/2022 08/17/2022 01/11/2022 Blood Pressure Systolic 122 109 103 136 142 Diastolic 72 76 46 90 84 Labs and Imaging Latest Ref Rng & Units 12/09/2014 06/24/2015 09/16/2016 CBC WBC 3.70 - 11.00 k/uL 5.15 4.92 7.56 Hemoglobin 11.5 - 15.5 g/dL 13.0 12.6 12.3 Hematocrit 36.0 - 46.0 % 38.2 36.9 37.1 Platelet Count 150 - 400 k/uL 387 338 380 Abs Neut (ANC) 1.45 - 7.50 k/uL 2.15 Abs Lymph 1.00 - 4.00 k/uL 2.41 Latest Ref Rng & Units 12/09/2014 06/24/2015 09/16/2016 CMP Sodium 136 - 144 mmol/L 137 140 140 Potassium 3.7 - 5.1 mmol/L 4.0 4.1 3.9 Chloride 97 - 105 mmol/L 98 101 100 CO2 22 - 30 mmol/L 26 25 24 Glucose 74 - 99 mg/dL 87 84 83 BUN 7 - 21 mg/dL 10 11 10 Creatinine 0.58 - 0.96 mg/dL 0.67 0.64 0.62 Calcium 8.5 - 10.2 mg/dL 9.8 9.4 9.1 AST 13 - 35 U/L 21 15 13 ALT 7 - 38 U/L 15 10 13 Alkaline Phosphatase 32 - 117 U/L 61 45 59 Latest Ref Rng & Units 04/25/2012 Uric Acid Uric Acid 2.0 - 7.0 mg/dL 5.4 Latest Ref Rng & Units 01/07/2005 10/09/2012 ESR, WSR WSR 0 - 15 mm/hr 8 8 Latest Ref Rng & Units 09/26/2012 03/14/2013 09/16/2016 Hepatitis Screen Hep C Antibody IA Negative Negative Hep B Surface Ag NEGAT Negative Negative Latest Ref Rng & Units 06/22/2012 07/07/2012 TB Screen TB INTRADERMAL TEST 0 x 0 - 10 x 10 mm neg 0 X 0 Latest Ref Rng & Units 03/31/2006 09/16/2016 Antibodies ROBERT Negative Negative ROBERT Titer Negative Negative ROBERT Pattern Not applicable for negative result. PT Sec 9.9 - 13.0 sec 11.2 PT INR 0.9 - 1.1 1.0 APTT 24.6 - 32.8 sec 33.6 Latest Ref Rng & Units 01/21/2016 05/13/2016 01/07/2017 Urinalysis Protein, Urine Neg mg/dL neg neg neg Last XR Knee - Impression Only XR KNEE AP/LAT/MERCHANT LT Collected: 08/06/2015 3:25 PM (Final result) Impression: IMPRESSION: Negative Pumper Helper: ANTON Transcribe Date/Time: Aug 06 2015 5:38P Dictated by : CHI MORENO MD ... Last XR Chest - Impression Only XR CHEST 2V FRONTAL/LAT Exam End: 03/30/2024 9:29 AM (Final result) Impression: IMPRESSION: No acute radiographic abnormality. ... Last XR Cervical Spine - Impression Only XR CERVICAL AP/LAT/OBL Collected: 08/28/2009 11:02 AM (Final result) ASSESSMENT & PLAN Patient is a pleasant 34 year-old female presenting for evaluation of polyarticular joint pain. Patient has a significant past medical history of obesity, irritable bowel syndrome (IBS), insulin resistance, exercise-induced asthma, generalized anxiety disorder, major depressive disorder, attention d eficit hyperactivity disorder (ADHD), and nicotine dependency disorder in remission Patient with longstanding history of polyarticular joint pain considered secondary to several mechanical injuries [plica syndrome from repetitive strain, right hip acetabular labral tears, and traumatic lumbar disc herniation] presenting to [facility] for further evaluation given pain recalcitrant to both conservative and surgical intervention and pertinent family history. Clinically, there is limited suspicion for a specific rheumatic condition or inflammatory disease as thorough review of systems in clinical interview and physical exam were not positive for the signsor symptoms associated with any of these diagnoses, including photosensitivity, mucocutaneous ulcerations, skin changes [discoid, malar rash, alopecia, psoriasis, nail changes, etc.], serositis, renal involvement, muscular weakness, Raynaud's, significant dyspnea, sicca symptoms, enthesitis, dactylitis, prolonged morning gel phenomena, or synovitis. Given pertinent family history, updated plain films and serologies will be obtained for further objective evaluation. Additionally, patient is advised to continue management with [facility] care teams. Diagnoses: (M25.50) Pain in joint, multiple sites (primary encounter diagnosis) (S73.191S) Tear of right acetabular labrum, sequela (M51.26) Lumbar herniated disc (Z83.2) Family history of autoimmune disorder Orders from this visit: Office Visit on 01/18/25 XR KNEE GENERAL 4V AP BOTH/PA BOTH/LAT/MERC BILATERAL XR HIP BILATERAL 5V PEL/AP/LAT EACH HIP XR LUMBAR GENERAL 3V AP/LAT/L5-S1 XR SACROILIAC JOINTS 2V AP PELVIS/FERGUESON C-REACTIVE PROTEIN SEDIMENTATION RATE, WESTERGREN COMPREHENSIVE METABOLIC PANEL COMPLETE BLOOD COUNT AND DIFFERENTIAL CCP ANTIBODY IGG RHEUMATOID FACTOR ROBERT BY IFA WITH REFLEX CONSULT TO ORTHOPAEDICS TRULICITY 4.5 mg/0.5 mL pen injector polyethylene glycol 3350 (MIRALAX) 17 gram/dose powder Plan: Reviewed with patient clinical manifestations of autoimmune rheumatologic conditions responsible for polyarticular joint and axial pain, including, but not limited to, Rheumatoid Arthritis (RA) and the spondyloarthropathy-spectrum disorders Although patient's clinical presentation and physical exam findings are inconsistent with the aforementioned, patient is advised to complete the following for further objective evaluation: Serologies: CRP, WSR, CMP, CBC with differential, CCP antibody, RF, and ROBERT by IFA Reviewed with patient that symptoms are most consistent with mechanical strain and secondary degenerative joint disease Reviewed with patient the pathogenesis - patient is advised to complete the following plain films to establish updated baseline Bilateral knees, hips, sacroiliac joints, and lumbar spine Reviewed that treatment is symptomatic and include: Dxhq-hjw-thyfphk topical treatments: Aspercreme, Biofreeze, etc. Acetaminophen 500-1000 mg up to 3 times a day as needed Oral and topical NSAIDs (Voltaren gel) Long-term use can lead to adverse effects including worsening hypertension, gastrointestinal bleeding, and renal dysfunction Glucosamine/chondroitin sulfate Duloxetine Reviewed importance of physical activity and strengthening exercises Reviewed with patient importance of non-pharmacologic therapies in improving generalized pain, fatigue, and quality of life Including, but not limited to: Aquatic therapy and/or routine, low-grade aerobic exercise (stationary bike, Pilates, walking) Relaxation techniques (meditation, Lorenzo Chi) Sleep hygiene and optimizing deep sleep phase 3/4 NREM Appropriately addressing feelings of either anxiety and depression Optimal weight management Patient is advised to contact me on MyChart or by phone if symptoms worsen or disease flares duringupcoming appointment interim Return if symptoms worsen or fail to improve. I spent a total of 75 minutes on the date of the service which included preparing to see the patient, [id number] patient care, completing clinical documentation, obtaining and/or reviewing separately obtained history, performing a medically appropriate examination, counseling and educating the pat ient/family/caregiver, ordering medications, tests, or procedures, independently interpreting results (not separately reported), communicating results to the patient/family/caregiver, and care coordination (not separately reported). Sola Cleveland PA-C Rheumatology Date: January 17, 2025 [1] Social History Tobacco Use Smoking status: Former Current packs/day: 0.50 Average packs/day: 0.5 packs/day for 1.5 years (0.8 ttl pk-yrs) Types: Cigarettes Smokeless tobacco: Never Tobacco comments: quit 2011 Substance Use Topics Alcohol use: Yes Comment: 1 drink every 3-6 months. Drug use: No [facility] [facility]08-29-2025 NoteHNO ID: [id number] Author: SOLA CLEVELAND PA-C Service: ? Author Type: Physician Storeperson Type: Progress Notes Filed: 01/18/2025 13:19 Note Text: [facility] Department of Rheumatic and Immunologic Diseases New Patient Date of Service: 01/18/2025 Patient: Dari Aparicio Medical Record: [id number] Primary Care Physician: No primary care provider on file. Referring Physician: Self Last Rheumatology visit: None at [facility] Recording using Magiq software for draft documentation of the visit was discussed with the patient/authorized sales representative business courses; all questions welcomed and answered. Patient/authorized sales representative business courses agreed to proceed SUBJECTIVE CC: Polyarticular joint pain History of Present Illness Patient is a 34 year-old female presenting for evaluation of polyarticular joint pain. Patient is the primary historian. Patient has a significant past medical history of obesity, irritable bowel syndrome (IBS), insulin resistance, exercise-induced asthma, generalized anxiety disorder, major depressive disorder, attention deficit hyperactivity disorder (ADHD), and nicotine dependency disorder in remission Relevant Serology Results: 09/16/2016: ROBERT by IFA screen negative Most recent renal function panel: 03/09/2024 GFR: 118 mL/min/m Cr: 0.62 mg/dL CrCl [per Cockcroft-Gault formula]: 153 mL/min Current Pertinent Medications: none per chart review Past Rheumatologic Medications: oral Gabapentin, oral NSAIDs, and Acetaminophen Mrs. Dari Aparicio is a pleasant 34 year-old female with longstanding history of polyarticular joint pain considered secondary to several mechanical injuries Patient reports first experiencing musculoskeletal symptoms in 2018 Patient denies experiencing a specific eliciting or traumatic event or viral prodrome to account for symptom onset Joints initially involved: bilateral knees Diagnosed with plica syndrome based upon clinical interview and physical exam by Orthopedic surgeon, Dr. Cris Olson Subsequently completed bilateral knee arthroscopies for plica resections Completed postoperative Physical Therapy - denies maintenance of strengthening regimen since States that "knees have never been the same" Report of progressive crepitus, weakness, and locking sensation, most notable with stair ascension and descension While resuming strength training in 2019, patient reports sustaining a right hip acetabular labral tear Mechanism of injury: abductor machine use while actively squatting with maximum weight Patient reports surgical repair as first line of therapy under directive of [facility] Orthopedic team Patient reports that despite completion of 16-weeks of postoperative Physical Therapy, she has never experienced symptomatic improvement, further reporting chronic pain and inability to lie on her right side Due to chronic pain, updated diagnostic right hip MRI was completed in 2020, identifying a new, secondary tear Patient denies having completed surgical intervention due to her prior experience Patient denies consulting an alternative Orthopedic team to discuss symptoms and establishing an effective management strategy In June 2024, patient reports experiencing acute lumbar disc herniation Mechanism of injury: lifting a patient without assistance Report of severe left-sided sciatica and midline axial pain Administered two epidural corticosteroid injections under directive of [facility] with pain relief Most recent - 01/17/2025 Note of radiculopathy resolution Management strategies to date for musculoskeletal symptomology - including, but not limited to: activity modification, rest, bracing, ice application, Physical Therapy, oral analgesics, Gabapentin, intraarticular corticosteroid injections, lumbar epidural injections, and surgical intervention Due to 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 and pain recalcitrant to aforementioned mechanisms, patient presents to [facility] for further evaluation Father: Rheumatoid Arthritis Maternal aunt: Crohn's disease and Multiple Sclerosis (MS) Denies: Fever Lymphadenopathy Unintentional weight loss Skin manifestations, including, but not limited to: Malar rash, photosensitivity, nonscarring alopecia, digital ischemia consistent with Raynaud's phenomena, psoriasis, nail changes [pitting or dystrophy], tophi, and subcutaneous nodules History of or symptoms consistent with inflammatory eye disease History of inflammatory bowel disease - negative colonoscopies Limitations in joint mobility secondary to pain or contracture Back pain with inflammatory features: Improvement with exercise No improvement with rest Pain at night (with improvement upon arising) Dry eye or dry mouth Enthesitis Dactylitis Active joint swelling Prolonged morning gel phenomena Myalgias Muscular weakness Freq (more content not included)...[facility]08-28-2025 Note* Exam Date Time Procedure Performing Provider Status 01/17/25 11:44 AM XR Fluoro Guide for Therapy Injection Modified [id number] ORIGINAL Images acquired, not reported on this accession number. [facility]08-28-2025 Hospital Discharge instructions Patient Education 01/17/2025 08:07:36 How to Use Cold Therapy, Ktdm-gb-Jxyr How to Use Cold Therapy Cold therapy, or cryotherapy, is a treatment that uses cold temperatures to treat an injury or medical condition. It includes using cold packs or ice packs to reduce pain and swelling. Only use cold therapy if your doctor says it is okay. What are the risks? Generally, cold therapy is a safe treatment. However, it is not safe for: People who are not able to say they are in pain. These include small children and people who have memory problems. People who have certain conditions, such as: ?A problem in the vessels that slows blood flow to the fingers and toes (Raynaud's syndrome). ?Feeling very cold easily (cold hypersensitivity). ?Lack of feeling in the area being iced. Cold therapy may not be safe for people who have other conditions. Do not use it without talking toyour doctor if you have: A heart condition. High blood pressure. Open or healing wounds. An infection. Pain and swelling in your joints (rheumatoid arthritis). Poor blood flow in the body. Diabetes. Certain skin conditions. How can I make a cold pack? When using a cold pack at home to reduce pain and swelling, you can use: A silica gel cold pack that has been left in the freezer. You can buy this online or in stores. A sealable plastic bag that has been filled with crushed ice. A washcloth or paper towels soaked in cold (or ice) water. A plastic bag of frozen vegetables. Throw them away when you are finished using them as a cold pack. Supplies needed: A cold pack. A towel. This can be dry or damp, based on what you like. How to use cold therapy 1.Have your cold pack ready. 2.Place a towel between the cold pack and your skin. You may also wrap the cold pack in a towel. 3.Put the cold pack on the affected area. Keep it on for no more than 20 minutes at a time. 4.Check your skin after 5 minutes to make sure that there is no damage to the area. Check for: White spots on your skin. Your skin may look blotchy or mottled. Skin that looks blue or pale. Skin that feels waxy or hard. 5.Repeat these steps as many times each day as told by your doctor. Always use a towel to avoid direct contact with your skin. Contact a doctor if: You start to have white spots on your skin. This may give your skin a blotchy or mottled look. Your skin turns blue or pale. Your skin becomes waxy or hard. Your swelling gets worse. Summary Cold therapy, or cryotherapy, is used to treat an injury or other conditions. It includes using cold packs or ice packs to reduce pain and swelling. Cold therapy is not safe for people who are not able to say they are in pain. When using cold packs or ice packs, always place a towel between the cold source and your skin. Check your skin after 5 minutes of icing it. This is to make sure that there is no skin damage. Contact your doctor if you notice changes in your skin or your swelling gets worse. This information is not intended to replace advice given to you by your health care provider. Make sure you discuss any questions you have with your health care provider. Document Released: 10/25/2008 Document Revised: 02/05/2019 Document Reviewed: 02/05/2019 [employer] Patient Education 2020 [employer] 01/17/2025 08:07:26 Epidural Steroid Injection, Care After Epidural Steroid [...] the bandage (dressing) after 24 hours. Take mtoe-yym-rohihyb and prescription medicines only as told by your health care provider. Keep all follow-up visits as told by your health care provider. This is important. Contact a health care provider if: You have a fever. You continue to have pain and soreness around the injection site, even after taking szcr-pnu-nvmyyqx pain medicine. You have severe, sudden, or [...] 08/24/2011 Document Revised: 04/21/2018 Document Reviewed: 08/24/2016 [employer] Patient Education 2020 [employer]. 01/17/2025 08:06:04 Local Anesthesia, Care After Local Anesthesia, Care After This sheet gives you information about how to care for yourself after your procedure. Your health care provider may also give you more specific instructions. If you have problems or questions, contact your health care provider. What can I expect after the procedure? After the procedure, it is common to have: Numbness in the area where you were given local anesthetic medicine. This numbness usually wears off within a few hours. It should be completely gone after 24 hours. Bruising, bleeding, or redness in the area where the medicine was given. Follow these instructions at home: If you had an injection: Check the area where the medicine was injected every day for signs of infection. Check for: ?Redness, swelling, or pain. ?Fluid or blood. ?Warmth. ?Pus or a bad smell. General instructions Follow instructions from your health care provider about how to take care of the area that was numbed. Protect the area from harm until the medicine wears off and you regain full feeling in the area. If you have a wound or incision, keep it clean and dry. Return to your normal activities as told by your health care provider. Ask your health care provider what activities are safe for you. Take fedt-eoo-svtshiu and prescription medicines only as told by your health care provider. Contact a health care provider if: You have numbness at the procedure site that last more than 24 hours. You have pain at the procedure site that is not controlled with the pain medicine that your health care provider gave you. You have redness or swelling around the procedure site. The injection area feels warm to the touch. You have pus or a bad smell coming from the injection site. You have a fever. Get help right away if: You have trouble breathing. You have chest pain. Summary After the procedure, it is common to have numbness for many hours in the area where you were given local anesthetic medicine. Protect the numbed area from harm until the medicine wears off and you regain full feeling in the area. This information is not intended to replace advice given to you by your health care provider. Make sure you discuss any questions you have with your health care provider. Document Released: 10/28/2017 Document Revised: 04/21/2018 Document Reviewed: 10/28/2017 [employer] Patient Education 2020 [employer]. Follow Up Care 01/03/2025 14:26:09 With:VALENTINA SANTILLAN MD Address: [address] [place] [address] [address] [facility] [place] [address]- [phone] When: Unknown Comments:CALL DR SANTILLAN WITH ANY QUESTIONS OR CONCERNS. GO TO THE ER WITH ANY URGENT CONCERNS. [facility] 08-28-2025 Note Discharge Instructions Thank you for allowing [facility] to assist you with your healthcare needs. The following is importantdischarge information regarding your hospital visit. 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 GO TO THE ER WITH ANY URGENTCONCERNS. The Following Activity and Diet Have Been Ordered for You Discharge Activity - Ordered -- Other, NO driving for 6 hours post-procedure., 01/17/25 7:59:00 EDT No qualifying data available. Allergies Chantix amoxicillin diarrhea nausea. naproxen Medications Please ask your primary doctor or pharmacist before taking any other medication not listed, including over the counter drugs, herbal medications, vitamins and or supplements as they may interact withyour home medications. What How Much When Instructions Last Dose Unchanged desvenlafaxine (Pristiq 50 mg oral tablet, extended release) 1 tab(s) by mouth Every day Unchanged dulaglutide (Trulicity Pen 4.5 mg/ 0.5 mL subcutaneous solution) Inject 4.5 mg under the skin 1 time per week. Unchanged omeprazole (omeprazole 40 mg oral delayed [...] medication providers or retail pharmacies. Education Materials How to Use Cold Therapy Cold therapy, or cryotherapy, is a treatment that uses cold temperatures to treat an injury or medical condition. It includes using cold packs or ice packs to reduce pain and swelling. Only use cold therapy if your doctor says it is okay. What are the risks? Generally, cold therapy is a safe treatment. However, it is not safe for: People who are not able to say they are in pain. These include small children and people who have memory problems. People who have certain conditions, such as: ? A problem in the vessels that slows blood flow to the fingers and toes (Raynaud's syndrome). ? Feeling very cold easily (cold hypersensitivity). ? Lack of feeling in the area being iced. Cold therapy may not be safe for people who have other conditions. Do not use it without talking toyour doctor if you have: A heart condition. High blood pressure. Open or healing wounds. An infection. Pain and swelling in your joints (rheumatoid arthritis). Poor blood flow in the body. Diabetes. Certain skin conditions. How can I make a cold pack? When using a cold pack at home to reduce pain and swelling, you can use: A silica gel cold pack that has been left in the freezer. You can buy this online or in stores. A sealable plastic bag that has been filled with crushed ice. A washcloth or paper towels soaked in cold (or ice) water. A plastic bag of frozen vegetables. Throw them away when you are finished using them as a cold pack. Supplies needed: A cold pack. A towel. This can be dry or damp, based on what you like. How to use cold therapy 1. Have your cold pack ready. 2. Place a towel between the cold pack and your skin. You may also wrap the cold pack in a towel. 3. Put the cold pack on the affected area. Keep it on for no more than 20 minutes at a time. 4. Check your skin after 5 minutes to make sure that there is no damage to the area. Check for: White spots on your skin. Your skin may look blotchy or mottled. Skin that looks blue or pale. Skin that feels waxy or hard. 5. Repeat these steps as many times each day as told by your doctor. Always use a towel to avoid direct contact with your skin. Contact a doctor if: You start to have white spots on your skin. This may give your skin a blotchy or mottled look. Your skin turns blue or pale. Your skin becomes waxy or hard. Your swelling gets worse. Summary Cold therapy, or cryotherapy, is used to treat an injury or other conditions. It includes using cold packs or ice packs to reduce pain and swelling. Cold therapy is not safe for people who are not able to say they are in pain. When using cold packs or ice packs, always place a towel between the cold source and your skin. Check your skin after 5 minutes of icing it. This is to make sure that there is no skin damage. Contact your doctor if you notice changes in your skin or your swelling gets worse. This information is not intended to replace advice given to you by your health care provider. Make sure you discuss any questions you have with your health care provider. Document Released: 10/25/2008 Document Revised: 02/05/2019 Document Reviewed: 02/05/2019 [employer] Patient Education 2020 [employer]. Epidural Steroid Injection, Care After Refer to [...] the bandage (dressing) after 24 hours. Take xjsn-upk-wwhdoev and prescription medicines only as told by your health care provider. Keep all follow-up visits as told by your health care provider. This is important. Contact a health care provider if: You have a fever. You continue to have pain and soreness around the injection site, even after taking zsbs-xtc-umgywdy pain medicine. You have severe, sudden, or [...] 08/24/2011 Document Revised: 04/21/2018 Document Reviewed: 08/24/2016 [employer] Patient Education 2020 [employer]. Local Anesthesia, Care After This sheet gives you information about how to care for yourself after your procedure. Your health care provider may also give you more specific instructions. If you have problems or questions, contact your health care provider. What can I expect after the procedure? After the procedure, it is common to have: Numbness in the area where you were given local anesthetic medicine. This numbness usually wears off within a few hours. It should be completely gone after 24 hours. Bruising, bleeding, or redness in the area where the medicine was given. Follow these instructions at home: If you had an injection: Check the area where the medicine was injected every day for signs of infection. Check for: ? Redness, swelling, or pain. ? Fluid or blood. ? Warmth. ? Pus or a bad smell. General instructions Follow instructions from your health care provider about how to take care of the area that was numbed. Protect the area from harm until the medicine wears off and you regain full feeling in the area. If you have a wound or incision, keep it clean and dry. Return to your normal activities as told by your health care provider. Ask your health care provider what activities are safe for you. Take mfos-wfz-hfyjqnc and prescription medicines only as told by your health care provider. Contact a health care provider if: You have numbness at the procedure site that last more than 24 hours. You have pain at the procedure site that is not controlled with the pain medicine that your health care provider gave you. You have redness or swelling around the procedure site. The injection area feels warm to the touch. You have pus or a bad smell coming from the injection site. You have a fever. Get help right away if: You have trouble breathing. You have chest pain. Summary After the procedure, it is common to have numbness for many hours in the area where you were given local anesthetic medicine. Protect the numbed area from harm until the medicine wears off and you regain full feeling in the area. This information is not intended to replace advice given to you by your health care provider. Make sure you discuss any questions you have with your health care provider. Document Released: 10/28/2017 Document Revised: 04/21/2018 Document Reviewed: 10/28/2017 [employer] Patient Education 2020 [employer] Additional Information VACCINATE! IT SAVES LIVES! Members of the community who have not yet received the COVID-19 vaccine and would like to receive it can visit one of [facility] vaccine clinics. There are many vaccine clinic locations within the [facility]. For locations and available times, please visit https://gettheshot.coronavirus.[place].gov/. It is important to note that some COVID mobile vaccine clinics are held outdoors and may be canceled in rainy or stormy conditions. To learn more about pediatric vaccinations (ages 5-11), we invite you to visit the [facility] webpage. [email or web address].[email or web address].org/pages/2883-Gxbmx-Sohyfdxhqwh-Elddmcvipe-Oewiq-Bwz stions.htmlTo learn more about the COVID-19 vaccine, we invite you to visit the CDC website for a list of frequently asked questions.https://www.cdc.gov/coronavirus/2019-ncov/vaccines/faq.html [facility] Patient Portal Access Instructions: Stay connected with your healthcare team and access your personal medical information anytime with the [facility] Patient Portal. Please follow the directions below to create your [facility] account: 1.Access the email account you provided upon registration to the hospital/physician office.2.Look for an invitation email from [facility].3.Open the email and access the invitation link: AcceptInvitation to [facility].4.Fill in the required mark to create your account. To access your account, visit [email or web address]. Click the blue button labeled "Access Patient Portal" and then log in with the username and password that you created in the steps above. You will be able to view your test results, lab results, a summary of your visits, upcoming appointments and more. There is also a convenient messaging option where you can send secure messages to your p robertvider. In addition, you will have the ability to download any documents or summaries to your computer and/or send the information securely to a physician. Remember that your healthcare information is confidential, so carefully consider who you will allowto register on the [facility] for access to your information. You can also access the [facility] Patient Portal on the [facility] yaya. Simply click on "Patient Portal" and then log into your account. If you would like to receive a full copy of your medical records, please contact the [facility] Medical Records Department by calling [phone], Tuesday through Tuesday between 8 a.m. and [...] Call your local pharmacy or go to [email or web address] to find one close to you.3.Make use of household items: Use cat litter or old coffee grounds to dispose medications if other options arenot available. Mix your drugs with these household products, seal them in an airtight container andthrow it into the garbage. Call [facility]: [phone] to be sure your drugs can be [...] a CHART COPY. Signatures Patient Education Materials How to Use Cold Therapy, Mtxo-ex-Wfiu Epidural Steroid Injection, Care After Local Anesthesia, Care After Medication Leaflets My discharge plan and instructions have been reviewed and explained to me and IMARKUS JESSICA understand my current condition and have read and understand these discharge instructions. I have received a written copy of the plan/instructions. If I have questions, I am aware that I should contact my d octor. Patient/Routeman Signature: Date/Time: Relationship to Patient: Witness Name/Signature: Date/Time: [facility]08-22-2025 Evaluation note* Diagnosis Onset Date Resolution Status Admit Date Anemia, normocytic normochromic inactive January 11 2:25pm Bleeding, uterine, dysfunctional inactive January 11 2:25pm Fatigue inactive January 11, 2:25pm Intermittent lightheadedness inactiv e January 11, 2025 2:25pm Menorrhagia inactive January 11, 2025 2:25pm Irregular periods acute Septemb er 2024 1:21pm Acute sinusitis acute February 212024 9:12am Abnormal uterine bleeding resolved March 13, 2025 10:50am [facility] Work Phone: [phone] 638-841208-22-2025 [facility] [address] [place] [address], [address] [place] [address] OFFICE VISIT Date of Service: 01/11/25 MR#: [id number] Acct: [id number] Name: DARI APARICIO Rep #: [id number] : 1990 Provider: Dr. Nataliia Cline DO Age/Sex: 34/F Location: [facility] [place] Status: Signed with Addenda ADDENDUM by Dr. Es Cline DO on 01/11/25 at 1505 Assessment and Plan Assessment and Plan (1) Bleeding, uterine, dysfunctional: Status: Acute (2) Menorrhagia: Status: Acute (3) Anemia, normocytic normochromic: Status: Acute (4) Intermittent lightheadedness: Status: Acute (5) Fatigue: Status: Acute Orders: Orders Thyroid Stim Hormone (TSH) Today R53.83 - Other fatigue Pelvic w/ Transvaginal Today D64.9 - Anemia, unspecified, N92.0 - Excessive andfrequent menstruation with regular cycle, N93.8 - Other specified abnormal uterine and vaginal bleeding CBC-Complete Blood Cnt No Diff Today D64.9 - Anemia, unspecified, N92.0 - Excessive and frequent menstruation with regular cycle, N93.8 - Other specified abnormal uterine and vaginal bleeding Plan RTO for EMB after ultrasound iron infusion ordered 01/11/25 1505 taras Villarreal DO> Date _ Es Cline DO cc: ~* Signed Intake Vital Signs 12/03/24 15:01 01/05/25 23:27 01/11/25 14:30 01/11/25 14:32 Height 5 ft 1 in 5 ft 1 in 5 ft 1 in 5 ft 1 in Weight: 167 lb 3 oz BMI 31.6 BP 126/86 H Intake Visit Reasons: AUB per JV 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: No Is patient in pain?: No Allergies megestrol (From Megace) Adverse Reaction (Intermediate, Verified 01/11/25 14:39) chest pain amoxicillin (From Augmentin) Adverse Reaction (Mild, Verified 01/11/25 14:29) Vomiting clavulanic acid (From Augmentin) Adverse Reaction (Mild, Verified 01/11/25 14:29) Vomiting naproxen Adverse Reaction (Verified 01/11/25 14:29) Other varenicline tartrate (From Chantix) Adverse Reaction (Verified 01/11/25 14:29) Other Medications ?Medication ?Instructions ?Recorded ?Confirmed ?Type ondansetron 4 mg disintegrating 4 mg PO Q6H PRN nausea and 07/10/24 01/11/25 Rx tablet vomiting #10 tabs desvenlafaxine succinate 50 mg 50 mg PO DAILY #90 tabs 08/22/24 01/11/25 Rx tablet,extended release 24 hr omeprazole 40 mg capsule,delayed 40 mg PO BID #60 caps 09/17/24 01/11/25 Rx release dulaglutide 0.75 mg/0.5 mL 4.5 mg subcut QWEEK 5 01/11/25 History subcutaneous pen injector (Trulicity) polyethylene glycol 3350 17 4 g PO ONCE 01/11/2501/11 History gram/dose oral powder (Miralax) Post menopausal: No Patient : No : [...] H/O adenoidectomy delivery delivered S/P laparoscopic appendectomy (~05/06/18) S/P right knee arthroscopy History of tonsillectomy [...] home: Yes additional social history: Single HPI AUB per JV Details: The patient is a 34-year-old female presenting with prolonged menstrual bleeding. She reports experiencing menorrhagia for 23 days, which is atypical for her as her periods usually last 7 to 10 days.The bleeding has been associated with symptoms such as dizziness, nausea, headaches, and chest pain. The patient has a history of sciatica and bulging discs, which have been causingsignificant discomfort and limiting her ability to exercise. She has received aninjection for the sciatica, but it was ineffective, and another attempt is planned. The patient has been experiencing symptoms suggestive of perimenopause, including irregular menstrual cycles. There is a concern for possible uterine fibroids or polyps, and an ultrasound has been recommended to evaluate the uterine structure. The patient has a history of iron deficiency, which may be contributing to her fatigue and increased sleep. An iron infusion has been planned to address this deficiency. There is a consideration of thyroid abnormalities as a potential cause for her symptoms, and a re-evaluation of thyroid function has been suggested. Attestation: Documentation on this patient encounter was supported using ambient scribe technology/ voice AI technology. The patient consented to recording for the purpose of documenting the encounter. Provider reviewed content of the generatednote prior to signature. History 3 Elective abortions Hx Para 2 Spontaneous abortions Hx # Term Pregnancies 2 Ectopic pregnancies Hx # Pregnancies 1 Multiple births # of living children 2 Past Pregnancies Del. Date Name GA/Weeks Outcome Route Bth Weight Infant Gen Labor Lgth Anesthesia Del Locatn Provider FOB 04/19/12 Kika 39 live - full term Female [facility] [place] 11/20/18 Eliezer spontaneous Female 02/12/20 Mo 39 live - full term 7lbs 15oz Male spinal [facility] GP Delivery Date: 02/12/20 Last Updated by: Renea Cordero GDM ROS Const ROS Unobtainable: All systems reviewed & are unremarkable except as noted in H Resp Resp: Reports system reviewed and no additional complaints, except as documented; Denies cough GI GI: Reports as per HPI Psych Psych: Reports system reviewed and no additional complaints, except as documented Exam Const General: cooperative, healthy appearing, comfortable and no acute distress Resp Effort & Inspection: normal respiratory effort Skin General: no rashes or lesions noted Psych Appearance: grossly normal Speech and Movement: speech and movement normal Coding Level of Care Code Off vis,est,level 4 Diagnoses Bleeding, uterine, dysfunctional N93.8 Menorrhagia N92.0 Anemia, normocytic normochromic D64.9 Intermittent lightheadedness R42 Fatigue R53.83 Assessment and Plan Assessment and Plan (1) Bleeding, uterine, dysfunctional: Status: Acute (2) Menorrhagia: Status: Acute (3) Anemia, normocytic normochromic: Status: Acute (4) Intermittent lightheadedness: Status: Acute (5) Fatigue: Status: Acute Orders: Orders Thyroid Stim Hormone (TSH) Today R53.83 - Other fatigue Pelvic w/ Transvaginal Today D64.9 - Anemia, unspecified, N92.0 - Excessive andfrequent menstruation with regular cycle, N93.8 - Other specified abnormal uterine and vaginal bleeding CBC-Complete Blood Cnt No Diff Today D64.9 - Anemia, unspecified, N92.0 - Excessive and frequent menstruation with regular cycle, N93.8 - Other specified abnormal uterine and vaginal bleeding Plan Assessment and Plan 34-year-old female with a history of menorrhagia presenting with prolonged menstrual bleeding. The bleeding has been persistent for 23 days, which is unusual for the patient, and is accompanied by dizziness, nausea, headaches, andchest pain. The differential diagnosis includes perimenopause, uterine fibroids,polyps, adenomyosis, and thyroid abnormalities. The patient also reports sciatica and bulging discs, which have been exacerbating her discomfort and limiting physical activity. Previous interventions, including an injection, have been ineffective,and further treatment is being considered. Iron deficiency is noted, likely contributing to her fatigue, and an iron infusion is planned to address this. Thyroid function will be re-evaluated to rule out any endocrine causes for her symptoms. 1. Menorrhagia The patient will undergo an ultrasound to evaluate the uterine structure for possible fibroids or polyps. A biopsy of the endometrium will be performed to assess for hyperplasia or other abnormalities. Consideration of a hysterectomy is discussed if significant pathology is found. 2. Chest Pain The patient is advised to seek emergency care if chest pain recurs, given its potential severity. 3. Sciatica The patient has been receiving injections for sciatica, with plans to attempt another injection forrelief. 4. Iron Deficiency An iron infusion is planned to address the patient's iron deficiency and associated symptoms of fatigue. 5. Possible Perimenopause Symptoms suggestive of perimenopause are being monitored, with consideration of hormonal changes asa contributing factor to menstrual irregularities. 6. Possible Thyroid Abnormalities Thyroid function tests will be repeated to evaluate for any abnormalities contributing to the patient's symptoms. 01/11/25 1505 e Phil DO> Date _ Es Cline DO Cosignjoanna Signature: Date (if applicable) CC: ~ [facility]08-22-2025 Progress note Author Es Villarreal [facility] Note Date/Time January 11, 2025 3: 05pm [facility] [address] [place] [address], [address] [place] [address] OFFICE VISIT Date of Service: 01/11/25 MR#: [id number] Acct: [id number] Name: DARI APARICIO Rep #: [id number] : 1990 Provider: Dr. Nataliia Cline DO Age/Sex: 34/F Location: [facility] [place] Status: Signed with Addenda ADDENDUM by Dr. Es Cline DO on 01/11/25 at 1505 Assessment and Plan Assessment and Plan (1) Bleeding, uterine, dysfunctional: Status: Acute (2) Menorrhagia: Status: Acute (3) Anemia, normocytic normochromic: Status: Acute (4) Intermittent lightheadedness: Status: Acute (5) Fatigue: Status: Acute Orders: Orders Thyroid Stim Hormone (TSH) Today R53.83 - Other fatigue Pelvic w/ Transvaginal Today D64.9 - Anemia, unspecified, N92.0 - Excessive andfrequent menstruation with regular cycle, N93.8 - Other specified abnormal uterine and vaginal bleeding CBC-Complete Blood Cnt No Diff Today D64.9 - Anemia, unspecified, N92.0 - Excessive and frequent menstruation with regular cycle, N93.8 - Other specified abnormal uterine and vaginal bleeding Plan RTO for EMB after ultrasound iron infusion ordered 01/11/25 1505 <Electronically signed by Es Whitaker DO> Date _ Es Cline DO cc: ~* Signed Intake Vital Signs 12/03/24 15:01 01/05/25 23:27 01/11/25 14:30 01/11/25 14:32 Height 5 ft 1 in 5 ft 1 in 5 ft 1 in 5 ft 1 in Weight: 167 lb 3 oz BMI 31.6 BP 126/86 H Intake Visit Reasons: AUB per JV 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: No Is patient in pain?: No Allergies megestrol (From Megace) Adverse Reaction (Intermediate, Verified 01/11/25 14:39) chest pain amoxicillin (From Augmentin) Adverse Reaction (Mild, Verified 01/11/25 14:29) Vomiting clavulanic acid (From Augmentin) Adverse Reaction (Mild, Verified 01/11/25 14:29) Vomiting naproxen Adverse Reaction (Verified 01/11/25 14:29) Other varenicline tartrate (From Chantix) Adverse Reaction (Verified 01/11/25 14:29) Other Medications ?Medication ?Instructions ?Recorded ?Confirmed ?Type ondansetron 4 mg disintegrating 4 mg PO Q6H PRN nausea and 07/10/24 01/11/25 Rx tablet vomiting #10 tabs desvenlafaxine succinate 50 mg 50 mg PO DAILY #90 tabs 08/22/24 01/11/25 Rx tablet,extended release 24 hr omeprazole 40 mg capsule,delayed 40 mg PO BID #60 caps 09/17/24 01/11/25 Rx release dulaglutide 0.75 mg/0.5 mL 4.5 mg subcut QWEEK 5 01/11/25 History subcutaneous pen injector (Trulicity) polyethylene glycol 3350 17 4 g PO ONCE 01/11/2501/11 History gram/dose oral powder (Miralax) Post menopausal: No Patient : No : [...] H/O adenoidectomy delivery delivered S/P laparoscopic appendectomy (~05/06/18) S/P right knee arthroscopy History of tonsillectomy [...] home: Yes additional social history: Single HPI AUB per JV Details: The patient is a 34-year-old female presenting with prolonged menstrual bleeding. She reports experiencing menorrhagia for 23 days, which is atypical for her as her periods usually last 7 to 10 days. The bleeding has been associated with symptoms such as dizziness, nausea, headaches, and chest pain. The patient has a history of sciatica and bulging discs, which have been causingsignificant discomfort and limiting her ability to exercise. She has received aninjection for the sciatica, but it was ineffective, and another attempt is planned. The patient has been experiencing symptoms suggestive of perimenopause, including irregular menstrual cycles. There is a concern for possible uterine fibroids or polyps, and an ultrasound has been recommended to evaluate the uterine structure. The patient has a history of iron deficiency, which may be contributing to her fatigue and increased sleep. An iron infusion has been planned to address this deficiency. There is a consideration of thyroid abnormalities as a potential cause for her symptoms, and a re-evaluation of thyroid function has been suggested. Attestation: Documentation on this patient encounter was supported using ambient scribe technology/ voice AI technology. The patient consented to recording for the purpose of documenting the encounter. Provider reviewed content of the generatednote prior to signature. History 3 Elective abortions Hx Para 2 Spontaneous abortions Hx # Term Pregnancies 2 Ectopic pregnancies Hx # Pregnancies 1 Multiple births # of living children 2 Past Pregnancies Del. Date Name GA/Weeks Outcome Route Bth Weight Gen Labor Lgth Anesthesia Del Locatn Provider FOB 04/19/12 Kika 39 live - full term Female [facility] [place] 11/20/18 Eliezer spontaneous Female 02/12/20 Mo 39 live - full term 7lbs 15oz Male spinal [facility] GP Delivery Date: 02/12/20 Last Updated by: Renea Cordero GDM ROS Const ROS Unobtainable: All systems reviewed & are unremarkable except as noted in H Resp Resp: Reports system reviewed and no additional complaints, except as documented; Denies cough GI GI: Reports as per HPI Psych Psych: Reports system reviewed and no additional complaints, except as documented Exam Const General: cooperative, healthy appearing, comfortable and no acute distress Resp Effort & Inspection: normal respiratory effort Skin General: no rashes or lesions noted Psych Appearance: grossly normal Speech and Movement: speech and movement normal Coding Level of Care Code Off vis,est,level 4 Diagnoses Bleeding, uterine, dysfunctional N93.8 Menorrhagia N92.0 Anemia, normocytic normochromic D64.9 Intermittent lightheadedness R42 Fatigue R53.83 Assessment and Plan Assessment and Plan (1) Bleeding, uterine, dysfunctional: Status: Acute (2) Menorrhagia: Status: Acute (3) Anemia, normocytic normochromic: Status: Acute (4) Intermittent lightheadedness: Status: Acute (5) Fatigue: Status: Acute Orders: Orders Thyroid Stim Hormone (TSH) Today R53.83 - Other fatigue Pelvic w/ Transvaginal Today D64.9 - Anemia, unspecified, N92.0 - Excessive andfrequent menstruation with regular cycle, N93.8 - Other specified abnormal uterine and vaginal bleeding CBC-Complete Blood Cnt No Diff Today D64.9 - Anemia, unspecified, N92.0 - Excessive and frequent menstruation with regular cycle, N93.8 - Other specified abnormal uterine and vaginal bleeding Plan Assessment and Plan 34-year-old female with a history of menorrhagia presenting with prolonged menstrual bleeding. The bleeding has been persistent for 23 days, which is unusual for the patient, and is accompanied by dizziness, nausea, headaches, andchest pain. The differential diagnosis includes perimenopause, uterine fibroids,polyps, adenomyosis, and thyroid abnormalities. The patient also reports sciatica and bulging discs, which have been exacerbating her discomfort and limiting physical activity. Previous interventions, including an injection, have been ineffective, and further treatment is being considered. Iron deficiency is noted, likely contributing to her fatigue, and an iron infusion is planned to address this. Thyroid function will be re-evaluated to rule out any endocrine causes for her symptoms. 1. Menorrhagia The patient will undergo an ultrasound to evaluate the uterine structure for possible fibroids or polyps. A biopsy of the endometrium will be performed to assess for hyperplasia or other abnormalities. Consideration of a hysterectomy is discussed if significant pathology is found. 2. Chest Pain The patient is advised to seek emergency care if chest pain recurs, given its potential severity. 3. Sciatica The patient has been receiving injections for sciatica, with plans to attempt another injection for relief. 4. Iron Deficiency An iron infusion is planned to address the patient's iron deficiency and associated symptoms of fatigue. 5. Possible Perimenopause Symptoms suggestive of perimenopause are being monitored, with consideration of hormonal changes as a contributing factor to menstrual irregularities. 6. Possible Thyroid Abnormalities Thyroid function tests will be repeated to evaluate for any abnormalities contributing to the patient's symptoms. 01/11/25 1500 <Electronically signed by Es Whitaker DO> Date _ Es Cline DO Cosigner Signature: Date (if applicable) CC: ~ [facility] Work Phone: [phone] Discharge summary [facility] Medical Records Department [address] [place] [address] Emergency Department Summary 01/06/25 MR#: [id number] Acct: [id number] Name: MARKUSDARIRACHAEL CELESTE Rep #:[id number] : 1990 34 From: Hernán Alex MD PCP: Dr. Steph Camacho MD Status:REG ER Location: ED HPI History of Present Illness Chief Complaint: Chest Pain Informant: patient and family Narrative Narrative: 34-year-old female states she has a history of heavy menstrual cycles and anemiasaying that she just recently had a cycle, she starting another episode of bleeding today which is not the right time, it is not heavy right now though, and she has had 2-3 days of chest tightness without dyspnea, lightheadedness, fatigue, some blurry vision at times, some headaches at times. She tells me that she feels it is related to her anemia. She has an appointment with an PROFESSOR OF MUSIC to be evaluated for hysterectomy. Her mother is here and tells me that she had the same issues and had a partial hysterectomy. Thepatient states she has never had a blood transfusion. She has iron deficiency, however she cannot tolerate oral iron pills because of severe constipation, however when it comes to parenteral iron, she had an infusion once and it was not recent. She is on no other treatments for anemia. [facility] Medical History Leg cramping Delayed gastric emptying [...] Obesity Scoliosis IBS (irritable bowel syndrome) Preeclampsia Home Medications ?Medication ?Instructions ?Recorded ?Last Taken ?Type ondansetron 4 mg disintegrating 4 mg PO Q6H PRN nausea and 07/10/24 Unknown Rx tablet vomiting #10 tabs desvenlafaxine succinate 50 mg 50 mg PO DAILY #90 tabs 08/22/24 Unknown Rx tablet,extended release 24 hr methocarbamol 500 mg tablet 500 mg PO TID PRN pain/spa sms #60 09/03/24 Unknown Rx tabs dulaglutide 0.75 mg/0.5 mL 0.75 mg subcut QWEEK Unknown History subcutaneous pen injector (Trulicity) omeprazole 40 mg capsule,delayed 40 mg PO BID #60 caps 09/17/24 Unknown Rx release megestrol 20 mg tablet 20 mg PO QDAY 30 days #30 ta bs 12/28/24 Unknown Rx Allergy/AdvReac Type Severity Reaction Status Date / Time amoxicillin (From Augmentin) AdvReac Mild Vomiting Verified 12/03/24 14:50 clavulanic acid (From AdvReac Mild Vomiting Verified 12/03/24 14:50 Augmentin) naproxen AdvReac Other Verified 12/03/24 14:50 varenicline tartrate (From AdvReac Other Verified 12/03/24 14:50 Chantix) Family History Mother Depression Aunt Breast cancer Grandmother Diabetes Uncle Hyperlipemia Menieres disease Depression Grandfather Heart disease Myocardial infarction CVA (cerebral vascular accident) Sister Crohn's disease half sister Down syndrome Aunt Multiple sclerosis Crohn's disease Father Rheumatoid arthritis Brain aneurysm CVA (cerebral vascular accident) Myocardial infarction Brother Bipolar 1 disorder Mentally disabled Other Hypertension Surgical History Status post tubal ligation Status post bilateral salpingectomy History of History of hip surgery H/O adenoidectomy delivery delivered S/P laparoscopic appendectomy (~05/06/18) S/P right knee arthroscopy History of tonsillectomy [...] additional social history: Single ROS ROS ED Constitutional Constitutional ED: Reports fatigue and malaise; Denies body ache(s), chills or fever(s) Eyes Eyes: Reports blurry vision; Denies diplopia ENT ENT ED: Denies rhinorrhea or sore throat Cardiovascular Cardiovascular: Reports as per HPI, chest pain, lightheadedness and racing heartbeat; Denies leg edema, radiating jaw, neck or arm pain or syncope Respiratory/Chest Respiratory/Chest: Denies cough or dyspnea Gastrointestinal Gastrointestinal: Denies abdominal pain, diarrhea, melena, nausea or vomiting Genitourinary Genitourinary ED: Reports vaginal bleeding; Denies dysuria or hematuria Musculoskeletal Musculoskeletal: Denies back pain or neck pain Integumentary Denies abscess or rash Neurologic Neurologic: Denies headache(s), paresthesias or weakness Psychiatric Psychiatric: Denies anxiety or suicidal thoughts EXAM Physical Exam Const Vital Signs: 01/05/25 23:27 01/05/25 23:34 01/06/25 00:00 Temperature 98.5 F Temperature Source Oral Pulse Rate 97 Pulse Rate [Lying] Pulse Rate [Sitting (for 1 minute prior to obtaining)] Pulse Rate [Standing (for 1 minute prior to obtaining)] Respiratory Rate 13 Respiratory Effort Normal Blood Pressure 119/70 Blood Pressure [Lying] Blood Pressure [Sitting (for 1 minute prior to obtaining)] Blood Pressure [Standing (for 1 minute prior to obtaining)] Blood Pressure Mean 86 Blood Pressure Mean [Lying] Blood Pressure Mean [Sitting (for 1 minute prior to obtaining)] Blood Pressure Mean [Standing (for 1 minute prior to obtaining)] Pulse Ox 100 Oxygen Delivery Method Room Air Room Air 01/06/25 00:26 01/06/25 01:26 01/06/25 01:56 Temperature Temperature Source Pulse Rate 93 113 H 86 Pulse Rate [Lying] Pulse Rate [Sitting (for 1 minute prior to obtaining)] Pulse Rate [Standing (for 1 minute prior to obtaining)] Respiratory Rate 18 21 H Respiratory Effort Blood Pressure 131/79 H Blood Pressure [Lying] Blood Pressure [Sitting (for 1 minute prior to obtaining)] Blood Pressure [Standing (for 1 minute prior to obtaining)] Blood Pressure Mean 96 Blood Pressure Mean [Lying] Blood Pressure Mean [Sitting (for 1 minute prior to obtaining)] Blood Pressure Mean [Standing (for 1 minute prior to obtaining)] Pulse Ox 99 99 99 Oxygen Delivery Method Room Air Room Air Room Air 01/06/25 02:00 01/06/25 02:02 01/06/25 02:09 Temperature Temperature Source Pulse Rate 89 91 Pulse Rate [Lying] 89 Pulse Rate [Sitting (for 1 minute prior to obtaining)] 88 Pulse Rate [Standing (for 1 minute prior to obtaining)] 102 H Respiratory Rate 19 H 16 Respiratory Effort Blood Pressure 107/63 Blood Pressure [Lying] 131/79 H Blood Pressure [Sitting (for 1 minute prior to obtaining)] 133/77 H Blood Pressure [Standing (for 1 minute prior to obtaining)] 127/81 H Blood Pressure Mean 77 Blood Pressure Mean [Lying] 96 Blood Pressure Mean [Sitting (for 1 minute prior to obtaining)] 95 Blood Pressure Mean [Standing (for 1 minute prior to obtaining)] 96 Pulse Ox 97 Oxygen Delivery Method Room Air Positive well nourished and well developed General Appearance ED: well developed and NAD HEENT Reports moist mucous membranes normocephalic and atraumatic Eyes PERRL and EOMs intact bilaterally Neck full ROM and supple Resp normal respiratory effort and clear to auscultation bilaterally Cardio regular rate, regular rhythm and no murmurs GI non-tender and non-distended Auscultation: normoactive bowel sounds Palpation: soft Speculum Exam - Vagina: vaginal bleeding Back/Spine no CVA tenderness General Back: other FROM Extremity normal to inspection General Extremety ED: Negative for edema, pulses abnormal or tenderness General Extremity: Negative for edema or pulses abnormal Neuro oriented x3, CN's II-XII intact bilaterally and no sensory deficits noted Sensorium / Orientation: awake and alert Motor Exam: strength 5/5 throughout Psych Mood & Affect: anxious Skin no rashes or lesions noted and no wounds MDM MDM MDM Narrative Medical decision making narrative: Patient's hemoglobin is 10.9. This is not far off from where she is at baseline. Given this, as I discussed with the patient my suspicion is that her symptoms are not related to her anemia since theyare acute. We did a pregnancyit is negative she has had a tubal in the past. She has a normal EKG and 2 sequential normal/negative troponins, chest x-ray 1 view on my interpretation isnormal, and orthostatics are negative so I do not think she needs IV fluid she does maintain that she has been drinking plenty of fluids lately. As I discussed with her, it is possible that she has a virus that is causing her to feel poorly, especially given her lymphocytosis on her low total white blood count. She has no urinary symptoms, we discussed many possibilities and she does not have any of them and shehas had UTIs in the past and has known when she has 1 because she has urinary symptoms. Therefore Nayan not think we need tocheck a urinalysis. She does have a history of exercise-induced asthma according to her, so I gave her an empiric albuterol nebulizer to see if that helped her chest tightness.It did not. She was amenable to trying a GI cocktail to treat possible esophageal etiologies, but did not want to wait to see if it helped and wanted to leave which I am fine with. She is planning onfollowing up with her [employer] which I think is reasonable. Lab Data Attestation: I reviewed the patient's lab results. Labs: Laboratory Results - last 24 hr 01/05/25 01/06/25 23:50 01:51 WBC 4.5 RBC 3.72 L Hgb 10.9 L Hct 31.8 L MCV 85.5 MCH 29.3 MCHC 34.3 RDW Std Deviation 42.3 RDW Coeff of Ever 13.6 Plt Count 301 MPV 9.0 Immature Gran % (Auto) 0.200 Neut % (Auto) 41.9 L Lymph % (Auto) 48.0 H [place] % (Auto) 8.8 Eos % (Auto) 0.4 Baso % (Auto) 0.7 Absolute Neuts (auto) 1.9 L Absolute Lymphs (auto) 2.17 Nucleated RBC % 0 Sodium 142 Potassium 3.9 Chloride 105 Carbon Dioxide 27.1 Anion Gap 11 BUN 13 Creatinine 0.69 L Estim Creat Clear Calc 109.83 Est GFR (MDRD) Non-Af 117 BUN/Creatinine Ratio 18.5 Glucose 116 H Calcium 9.3 Troponin T High Sens < 6 Troponin T Hi Sens 2 Hr < 6 Serum , Qual NEGATIVE Radiography Diagnostic Testing: Clinical Impression(s) from Imaging Studies Chest X-Ray 01/06/25 00:07 IMPRESSION: No evidence for acute abnormality. Reading Location: [place] [address] Rhythm Strip Rhythm Strip: Sinus Rhythm Rate: 90 Ectopy: None EKG Initial EKG: Attestation: I personally reviewed and interpreted this EKG as follows: Interpretation: Sinus Rhythm and No Acute Injury Pattern Comments: Nml axis & intervals; nml EKG Discharge Plan Triage Chief Complaint: Chest Pain ED Provider: Hernán Alex Dx/Rx/DC Orders Clinical Impression: Chest tightness, Fatigue, Intermittent lightheadedness, Anemia, normocytic normochromic, Menorrhagia, Bleeding, uterine, dysfunctional Instructions: Anemia, ED Weakness Uncertain Cause Prescriptions: No Action Trulicity 0.75 mg/0.5 mL pen injector 0.75 mg subcut QWEEK omeprazole 40 mg capsule,delayed release(DR/EC) 40 mg PO BID Qty: 60 2RF desvenlafaxine succinate 50 mg tablet extended release 24 hr 50 mg PO DAILY Qty: 90 0RF methocarbamol 500 mg tablet 500 mg PO TID PRN (Reason: pain/spasms) Qty: 60 0RF ondansetron 4 mg tablet,disintegrating 4 mg PO Q6H PRN (Reason: nausea and vomiting) Qty: 10 0RF megestrol 20 mg tablet 20 mg PO QDAY 30 Days Qty: 30 0RF Primary Care Provider: Steph Camacho Referrals: Steph Camacho MD [Primary Care Provider] - 1 Week if not improving Print Language: Canadian Disposition Disposition: Home, Self Care What to do if you have Problems For any increased pain, shortness of breath, bleeding, nausea or vomiting, chestpain, or any unexpected problems, contact your Primary Care Provider. Call [facility] ([phone]) or report tothe closest Emergency Room. Call 911 if necessary. 01/06/25 0243 Cosigner Signature (if applicable): CC: Dr. Steph Camacho MD ~ Signed [facility]08-17-2025 Radiology Diagnostic study note [facility] Imaging Services [address] [place], [place] [address] Chest 1 View (Portable) MR#: [id number] Acct: [id number] Name: DARI APARICIO Rep #: [id number] : 1990 F 34 From: Vicky Davila MD PCP: Dr. Steph Camacho MD Status: REG ER Study:Chest 1 View (Portable) Date of Exam: 01/06/25 Exam# [id number] Ordering Dr: Azucena Alex MD PROCEDURE: CHEST 1 VIEW (PORTABLE) 01/06/2025 REASON FOR EXAM: CHEST PAIN TECHNIQUE: Frontal view of the chest. COMPARISON: 07/10/2024. FINDINGS: The lungs are expanded. There is no demonstrated parenchymal abnormality. There is no demonstrated pleural abnormality. Normal heart and pericardium. Normal mediastinum and vamsi. Normal visualized pulmonary arteries. Normal visualized aortic arch and descending thoracic aorta. Normal visualized thoracic spine. Normal visualized ribs, clavicles, and shoulders. There is no demonstrated abnormality of the visualized soft tissue structures ofthe upper abdomen. RAD/Chest 1 View (Portable) IMPRESSION: No evidence for acute abnormality. Reading Location: [place] [address] CC: Dr. Steph Camacho MD; Dr. Hernán Alex MD ~ Pumper Helper: Signed [facility]07-30-2025 History of Present illness Narrative* Coral Pierre MD - 12/19/2024 10:30 AM EDT HPI, PHYSICAL EXAMINATION & PLAN HPI: Patient here today for follow up for non-surgical weight loss management Weight trend since last visit: lost 2 lbs over 1 m stable weight regain after stopping ozempic This patient's excess weight is causing the following co-morbid conditions at this time:Other IR Physical Examination: Height 5' 2" (1.575 m), weight 169 lb 9.6 oz (76.9 kg). Blood pressure 113/75, pulse 80, height 5' 2" (1.575 m), weight 169 lb 9.6 oz [...] and completed. * Skyler Nichols MA - 12/19/2024 10:30 AM EDT [facility] MEDICAL WEIGHT LOSS MANAGEMENT PROGRAM ROOMING NOTE: FOLLOW UP VISIT Patient: Dari Aparicio Date of : 1990 Service Date: 12/19/2024 Patient History/Assessment Summary: The patient is a pleasant 34 y.o. year old female, who stands Height: 5' 2" (157.5 cm) tall with a weight of Weight: 169 lb 9.6 oz (76.9 kg) pounds, resulting in a BMI of Body mass index is 31.02 kg/m . kg/m2. She is here for follow-up for medical treatment of Obesity Patient has the following question(s): none Pre Program Weight Metrics (Epic) (Surgical Wt Loss Management- baseline) This Visit Non-Surgical Subsequent Eval Date: 12/19/24 Height: 5' 2" (157.5 cm) Weight: 169 lb 9.6 oz [...] by: Skyler Nichols MA documented in this [facility]07-24-2025 Note* Exam Date Time Procedure Performing Provider Status 12/13/24 1:47 PM XR Fluoro Guide for Therapy Injection Modified [id number] ORIGINAL Images acquired, not reported on this accession number. [facility]07-24-2025 Hospital Discharge instructions Patient Education 12/13/2024 [...] the bandage (dressing) after 24 hours. Take rube-vay-mejqchi and prescription medicines only as told by your health care provider. Keep all follow-up visits as told by your health care provider. This is important. Contact a health care provider if: You have a fever. You continue to have pain and soreness around the injection site, even after taking npvr-lkg-paxlvbx pain medicine. You have severe, sudden, or [...] 08/24/2011 Document Revised: 04/21/2018 Document Reviewed: 08/24/2016 [employer] Patient Education 2020 [employer]. Follow Up Care 11/20/2024 13:19:20 With:VALENTINA SANTILLAN MD Address: [address] [place] [address] [place] [address] [phone] When: Unknown [facility] 07-24-2025 Note Discharge Instructions Thank you for allowing [facility] to assist you with your healthcare needs. [...] OV 12/26/2024 12:45 PM EDT BROOKLYNN MENENDEZ APRN-EDEN [facility] PM [address] [place] [phone] Confirmed Follow Up Appointments Follow Up with VALENTINA SANTILLAN MD Where:[address] [place] [address] [place] [address]- [phone] The Following Activity and Diet Have Been [...] the bandage (dressing) after 24 hours. Take clhu-qrl-hbcfwbv and prescription medicines only as told by your health care provider. Keep all follow-up visits as told by your health care provider. This is important. Contact a health care provider if: You have a fever. You continue to have pain and soreness around the injection site, even after taking qekb-xoc-eudylxl pain medicine. You have severe, sudden, or [...] 08/24/2011 Document Revised: 04/21/2018 Document Reviewed: 08/24/2016 [employer] Patient Education 2020 [employer] Additional Information VACCINATE! IT SAVES LIVES! Members of the community who have not yet received the COVID-19 vaccine and would like to receive it can visit one of [facility] vaccine clinics. There are many vaccine clinic locations within the [facility]. For locations and available times, please visit [email or web address].[place].gov/. It is important to note that some COVID mobile vaccine clinics are held outdoors and may be canceled in rainy or stormy conditions. To learn more about pediatric vaccinations (ages 5-11), we invite you to visit the [facility] webpage. [email or web address] [email or web address].htmlTo learn more about the COVID-19 vaccine, we invite you to visit the CDC website for a list of frequently asked questions.https://www.cdc.gov/coronavirus/2019-ncov/vaccines/faq.html [facility] Patient [facility] Access Instructions: Stay connected with your healthcare team and access your personal medical information anytime with the [facility] Patient Portal. Please follow the directions below to create your [facility] account: 1.Access the email account you provided upon registration to the hospital/physician office.2.Look for an invitation email from [facility].3.Open the email and access the invitation link: AcceptInvitation to [facility].4.Fill in the required mark to create your account. To access your account, visit [email or web address]. Click the blue button labeled "Access Patient Portal" and then log in with the username and password that you created in the steps above. You will be able to view your test results, lab results, a summary of your visits, upcoming appointments and more. There is also a convenient messaging option where you can send secure messages to your [facility] [employer]. In addition, you will have the ability to download any documents or summaries to your computer and/or send the information securely to a physician. Remember that your healthcare information is confidential, so carefully consider who you will allowto register on the [facility] Patient Portal for access to your information. You can also access the [facility] on the [facility] Virtual DBSwhere yaya. Simply click on "Patient Portal" and then log into your account. If you would like to receive a full copy of your medical records, please contact the [facility] Medical Records Department by calling [phone], Tuesday through Tuesday between 8 a.m. and [...] Call your local pharmacy or go to [email or web address] to find one close to you.3.Make use of household items: Use cat litter or old coffee grounds to dispose medications if other options arenot available. Mix your drugs with these household products, seal them in an airtight container andthrow it into the garbage. Call [facility]: [phone] to be sure your drugs can be [...] aware that I should contact my d tayloror. Patient/Routeman Signature: Date/Time: Relationship to Patient: Witness Name/Signature: Date/Time: [facility]07-14-2025 Evaluation note* Diagnosis Onset Date Resolution Status Admit Date Vaginal discharge noneactive December 032024 2:42pm Vaginal odor noneactive December 03, 2 025 2:42pm Anemia, normocytic normochromic inactive January 11 2:25pm Bleeding, uterine, dysfunctional inactive January 11 2:25pm Fatigue inactive January 11, 2 025 2:25pm Intermittent lightheadedness inactiv e January 11, 2025 2:25pm Menorrhagia inactive January 11, 2025 2:25pm Irregular periods acute [facility] 2024 1:21pm [facility] Work Phone: 1(945) 436-916907-14-2025 Evaluation note* Diagnosis Onset Date Resolution Status Admit Date Vaginal discharge noneactive December 032024 2:42pm Vaginal odor noneactive December 03, 2 025 2:42pm Anemia, normocytic normochromic inactive January 11 2:25pm Bleeding, uterine, dysfunctional inactive January 11 2:25pm Fatigue inactive January 11, 2 025 2:25pm Intermittent lightheadedness inactiv e January 11, 2025 2:25pm Menorrhagia inactive January 11, 2025 2:25pm Irregular periods acute [facility] 2024 1:21pm Acute sinusitis acute February 212024 9:12am [facility] Work Phone: 1(926) 595-533006-18-2025 History of Present illness Narrative* Coral Pierre MD - 11/07/2024 10:30 AM EDT [...] Blood pressure 109/75, pulse 82, height 5' 2" (1.575 m), weight 171 lb 3.2 oz [...] continue weight loss program Stable Working with [facility] GI on her current symptoms [...] Nichols MA - 11/07/2024 10:30 AM EDT [facility] MEDICAL WEIGHT LOSS MANAGEMENT PROGRAM ROOMING NOTE: FOLLOW UP VISIT Patient: Dari Aparicio Date of : 1990 Service Date: 11/07/2024 Patient History/Assessment Summary: The patient is a pleasant 34 y.o. year old female, who stands Height: 5' 2" (157.5 cm) tall with a weight of Weight: 171 lb 3.2 oz (77.7 kg) pounds, resulting in a BMI of Body mass index is 31.31 kg/m . kg/m2. She is here for follow-up for medical treatment of Obesity Patient has the following question(s): none Pre Program Weight Metrics (Epic) (Surgical Wt Loss Management- baseline) This Visit Non-Surgical Subsequent Eval Date: 11/07/24 Height: 5' 2" (157.5 cm) Weight: 171 lb 3.2 oz [...] by: Skyler Nichols MA documented in this [facility]05-20-2025 Evaluation note* Diagnosis Onset Date Resolution Status Admit Date Lumbar radiculopathy acute October 09, 2024 8:09am Vaginal discharge noneactive December 032024 2:42pm Vaginal odor noneactive December 03, 025 2:42pm Anemia, normocytic normochromic inac tive January 11, 2025 2:25pm Bleeding, uterine, dysfunctional inactive January 11 2:25pm Fatigue inactive January 11 025 2:25pm Intermittent lightheadedness inactiv e January 11, 2025 2:25pm Menorrhagia inactive January 11, 2025 2:25pm [facility] Work Phone: 1(842) 323-561205-06-2025 Evaluation note* Diagnosis Onset Date Resolution Status Admit Date Encounter for routine gynecological examination noneactive September 8:27am Lumbar radiculopathy acute October 09, 2024 8:09am Vaginal discharge noneactive December 032024 2:42pm Vaginal odor noneactive December 03, 2 025 2:42pm Anemia, normocytic normochromic inac tive January 11, 2025 2:25pm Bleeding, uterine, dysfunctional inactive January 11 2:25pm Fatigue inactive January 11, 2 025 2:25pm Intermittent lightheadedness inactiv e January 11, 2025 2:25pm Menorrhagia inactive January 11, 2025 2:25pm [facility] Work Phone: 1(154) 371-255604-28-2025 Evaluation note* Diagnosis Onset Date Resolution Status Admit Date Depression acute September 17 10:16am IBS (irritable [...] 032024 2:42pm Vaginal odor noneactive December 03, 2 025 2:42pm [facility] Work Phone: 1([phone]) 513-781604-28-2025 Evaluation note* Diagnosis Onset Date Resolution Status Admit Date Depression acute September 17 10:16am IBS (irritable [...] 032024 2:42pm Vaginal odor noneactive December 03, 025 2:42pm Anemia, normocytic normochromic acut e January 11, 2025 2:25pm Bleeding, uterine, dysfunctional acute January 11 2:25pm Fatigue acute January 11 025 2:25pm Intermittent lightheadedness acute January 11, 2025 2:25pm Menorrhagia acute January 11, 2025 2:25pm [facility] Work Phone: 1(335) 382-363904-05-2025 Radiology Diagnostic study note [facility] Imaging Services [address] [place], [place] [address] Lumbar Spine 2 or 3 Views MR#: [id number] Acct: [id number] Name: DARI APARICIO Rep #: [id number] : 1990 F 34 From: James Cortez MD PCP: Dr. Steph Camacho MD Status: REG CLI Study:Lumbar Spine 2 or 3 Views Date of Exam: 08/24/24 Exam# [id number] Ordering Dr: Kael Nascimento PA PROCEDURE: LUMBAR SPINE 2 OR 3 VIEWS 08/24/2024 REASON FOR EXAM: CHRONIC BACK PAIN, PAIN DOWN BOTH LEGS TECHNIQUE: 2 view(s) of the lumbar spine COMPARISON: None available FINDINGS: No fracture or malalignment. The disc spaces appear within limits. SI joints appear within limits as imaged. RAD/Lumbar Spine 2 or 3 Views IMPRESSION: Study appears with Reading Location: [facility] CC: Dr. Steph Camacho MD; CAROLYN Anton ~ Pumper Helper: Signed [facility]04-02-2025 Evaluation note* Diagnosis Onset Date Resolution Status [...] Lumbar radiculopathy acute October 09, 2024 8:09am [facility] Work Phone: 1(349) 558-200304-02-2025 Evaluation note* Diagnosis Onset Date Resolution Status [...] 2:42pm Vaginal odor noneactive December 03, 2:42pm [facility] Work Phone: 1(991) 329-604203-08-2025 Evaluation note* Diagnosis Onset Date Resolution Status Admit Date Influenza A resolved July 28 10:17am Chronic back pain chronic August 222024 2:44pm Depression with anxiety deleted A pri2024 2:44pm Lumbar radiculopathy acute Apri 2024 9:16am Depression acute September 17 10:16am IBS (irritable bowel syndrome) acute September 17, 2024 10:16am Lumbar radiculopathy acute Apri l 2024 10:16am Generalized anxiety disorder chronic September 17, 2024 10:16am Obesity (BMI 30-39.9) chronic Apr 2024 10:16am Establishing care with new doctor, encounter for noneactive August 10:16am Latent tuberculosis noneactive September 17, 2024 10:16am GERD (gastroesophageal reflu x disease) noneactive September 17, 2024 10:16am Vitamin D deficiency noneactive Apri l 2024 10:16am Encounter for routine gynecological examination noneactive September 8:27am [facility] Work Phone: 1(721) 305-837203-08-2025 Evaluation note* Diagnosis Onset Date Resolution Status Admit Date Influenza A resolved July 28 10:17am Chronic back pain chronic August 222024 2:44pm Depression with anxiety deleted A pri2024 2:44pm Lumbar radiculopathy acute Apri l 2024 [...] Lumbar radiculopathy acute October 09, 2024 8:09am [facility] Work Phone: 1([phone]) 310-280603-05-2025 NoteDari is calling in again to schedule a new patient consultation. Reached out to the back line and they said that Lory will call her back to get her scheduled when she is free. Please contact to schedule.[facility] 07-25-2024 Telephone encounter Note* Telephone Encounter - Altaf Flores - 07/25/2024 10:42 AM EST Dari is calling in again to schedule a new patient consultation. Reached out to the back line and they said that Lory will call her back to get her scheduled when she is free. Please contact to schedule. [id number] Miscellaneous Notes* Telephone Encounter - Altaf Flores - 07/25/2024 [...] Name of caller: Dari Contact phone number: [phone] Relationship to Patient: patient Provider: soonest available Practice: [facility] Chief Complaint/Reason for Call: patient is calling in checking on the status of their referral that they state was faxed over twice from [facility]. Patient would like a callback please adviseand thank you Best time of day caller can be reached: any Patient advised that office/PCP has 24-48 business hours to return their call: Yes documented in this encounterSUniversity Hospitals [facility] [id number] Telephone encounter Note* Telephone Encounter - Christina Carter - 07/24/2024 10:40 AM EST Name of caller: Dari Contact phone number: [phone] Relationship to Patient: patient Provider: soonest available Practice: [facility] Chief Complaint/Reason for Call: patient is calling in checking on the status of their referral that they state was faxed over twice from [facility]. Patient would like a callback please adviseand thank you Best time of day caller can be reached: any Patient advised that office/PCP has 24-48 business hours to return their call: Yes [id number] NoteSpoke to pt previously in regard to consultation. Will discuss with residents and infor pt of their decision.[facility]02-21-2025 History of Present illness Narrative* Kiera Hinds MA - 07/13/2024 2:30 PM EST [facility] NON-SURGICAL WEIGHT LOSS MANAGEMENT PROGRAM ROOMING NOTE: FOLLOW UP VISIT Patient: Dari Aparicio Date of : 1990 Service Date: 07/13/2024 Patient History/Assessment Summary: The patient is a pleasant 34 y.o. year old female, who stands Height: 5' 2" (157.5 cm) tall with a weight of Weight: 166 lb (75.3 kg) pounds, resulting in a BMI of Body mass index is 30.36 kg/m . kg/m2. She is here for follow-up for non-surgical treatment of over weight. Patient has the following question(s): none Pre Program Weight Metrics (Epic) (Surgical Wt Loss Management- baseline) This Visit Non-Surgical Subsequent Eval Date: 07/13/24 Height: 5' 2" (157.5 cm) Weight: 166 lb (75.3 kg) [...] O2 Completed by: Kiera Hinds MA * Coral Pierre MD - 07/13/2024 2:30 PM EST [...] Blood pressure 119/73, pulse 87, height 5' 2" (1.575 m), weight 166 lb (75.3 kg). [...] continue weight loss program Stable Working with [facility] GI on her current symptoms [...] is updated and completed. documented in this [facility]02-21-2025 Instructions* Patient Instructions* Coral Pierre MD - 07/13/2024 2:30 PM EST [...] or approved for treating a specific patient. [employer] and its affiliatesdisclaim any warranty or liability relating to this information or the use thereof. The use of thisinformation is governed by the Terms of Use, available at https://www.[email or web address].WARSTUFF/en/know/kcyowplr-fmdhfyuksbziq-tjgug. Last Reviewed Date 2020-08-19 Copyright 2021 [employer] and its affiliates and/or licensors. All rights reserved. * Attachments The following attachments cannot be sent through Care Everywhere. * Naltrexone, ADULT (Canadian) documented in this [facility]02-21-2025 NotePatient Education Naltrexone (nal TREKS one) Brand [...] lumps, open wound, pain, (more content not included)...[facility]02-18-2025 Telephone encounter Note* Telephone Encounter - Aquiles Alba MA - 07/10/2024 12:02 PM EST Patient came to urgent care today, sent to ED. Aquiles Alba MA [facility]02-18-2025 Miscellaneous Notes* Telephone Encounter - Aquiles Alba MA - 07/10/2024 12:02 PM EST Patient came to urgent care today, sent to ED. Aquiles Alba MA * Telephone Encounter - Prudencio [...] UC can refill her albuterol inhaler? [facility] [place]. Patient does not have a pcp. Please advise pt. documented in this encounterOhio[facility]02-18-2025 NoteHNO ID: [id number] Author: VANDANA MIRELES APRN.SOFT MUD MOLDER Service: ? Author Type: Nurse Practitioner Type: [...] and caregiver with her will take her now.[facility]02-18-2025 History of Present illness Narrative* Vandana Mireles APRN.SOFT MUD MOLDER - 07/10/2024 11:56 AM EST Patient came [...] will take her now. documented in this encounterOhiohealth [facility]02-18-2025 Telephone encounter Note * Telephone Encounter - Prudencio Ortiz PA - 07/10/2024 9:40 AM EST Inhaler sent to pharmacy. [facility]02-18-2025 Telephone encounter Note* Telephone Encounter [...] UC can refill her albuterol inhaler? [facility] [place]. Patient does not have a pcp. Please advise pt. [facility]02-16-2025 Instructions* Patient Instructions* Steve Cummins APRN.SOFT MUD MOLDER - 07/08/2024 10:43 AM EST ASSESSMENT/PLAN: 1. [...] analgesia. - Discussed expected course of illness Steve Cummins APRN.EDEN Treatment for Upper Respiratory Tract Infections Drink lots of fluids Make sure you are eating well Get plenty of rest Antibiotics are used to treat bacterial infections; however, they are not active against viral infections. There are some things that might help you feel better, though. Vaporizers, humidifiers, hot showers, and hot fluids help open respiratory and sinus passages [place] [facility] [place] may offer relief of nasal and head [...] worse rather than better documented in this encounterOhiohealth [facility] Center02-16-2025 NoteHNO ID: [id number] Author: STEVE CUMMINS APRN.SOFT MUD MOLDER Service: ? Author Type: Nurse Practitioner Type: [...] distress. Breath sounds: Examination (more content not included)...[facility]02-16-2025 History of Present illness Narrative* Steve Cummins APRN.SOFT MUD MOLDER - 07/08/2024 10:28 AM EST Subjective Cough [...] analgesia. - Discussed expected course of illness Steve Cummins APRN.SOFT MUD MOLDER documented in this encounterOhio[facility] Center01-24-2025 History of Present illness Narrative* Coral Pierre MD - 06/15/2024 9:30 AM EST [...] Blood pressure 96/59, pulse 76, height 5' 2" (1.575 m), weight 169 lb 6.4 oz [...] continue weight loss program Stable Working with [facility] on her current symptoms [...] Hinds MA - 06/15/2024 9:30 AM EST [facility] NON-SURGICAL WEIGHT LOSS MANAGEMENT PROGRAM ROOMING NOTE: FOLLOW UP VISIT Patient: Dari Aparicio Date of : 1990 Service Date: 06/15/2024 Patient History/Assessment Summary: The patient is a pleasant 34 y.o. year old female, who stands Height: 5' 2" (157.5 cm) tall with a weight of [...] Non-Surgical Subsequent Eval Date: 06/15/24 Height: 5' 2" (157.5 cm) Weight: 169 lb 6.4 oz [...] by: Kiera Hinds MA documented in this [facility]01-21-2025 Telephone encounter Note* Telephone Encounter - Marine Rossi MA - 06/12/2024 4:00 PM EST Patient phones requesting refills as follows: Requested Prescriptions Pending Prescriptions Disp Refills DRYSOL 20 % external solution [Pharmacy Med Name: Drysol External Solution 20 %] 60 mL 0 Sig: APPLY TO CLEAN AREAS AT NIGHT Please review and advise. Marine Rossi MA [facility]01-21-2025 Miscellaneous Notes* Telephone Encounter - Marine Rossi MA - 06/12/2024 4:00 PM EST Patient phones requesting refills as follows: Requested Prescriptions Pending Prescriptions Disp Refills DRYSOL 20 % external solution [Pharmacy Med Name: Drysol External Solution 20 %] 60 mL 0 Sig: APPLY TO CLEAN AREAS AT NIGHT Please review and advise. Marine Rossi MA documented in this encounterOhiohealth Southeastern Medical Center01-15-2025 NoteHNO ID: [id number] Author: SANTINO AGUILERA MD Service: ? Author Type: Physician Type: Progress Notes Filed: 06/06/2024 12:06 Note Text: Gastroenterology AND Hepatology 06/06/2024 Dr. Bo Simms, [place], [place] Consultation requested by Dr. Simms for an opinion regarding epigastric pain.. My final recommendations will be communicated back to the requesting physician by way of shared Medical record or letter to requesting physician via US mail. SUBJECTIVE: HPI: Ms. Aparicio is a 34yoF with a PMH of exercise-induced asthma, depression, PTSD, IBS-mixed, and GERD who presents today for a second opinion about "pre-cancer in her throat" and gastroparesis. She has been having R-sided [...] days. She takes miralax if she feels "impacted" but not daily. This prompted an extensive workup done locally in [place] which included a CT scan, GES, EGD, [...] to affected area i (more content not included)...[facility]01-15-2025 History of Present illness Narrative* Santino Aguilera MD - 06/06/2024 11:07 AM EST Images from the original note were not included. Gastroenterology & Hepatology 06/06/2024 Dr. Bo Simms, [place], [place] Consultation requested by Dr. Simms for an opinion regarding epigastric pain.. My final recommendations will be communicated back to the requesting physician by way of shared Medical record or letter to requesting physician via US mail. SUBJECTIVE: HPI: Ms. Aparicio is a 34yoF with a PMH of exercise-induced asthma, depression, PTSD, IBS-mixed, and GERD who presents today for a second opinion about "pre-cancer in her throat" and gastroparesis. She has been having R-sided [...] days. She takes miralax if she feels "impacted" but not daily. This prompted an extensive workup done locally in [place] which included a CT scan, GES, EGD, [...] OBJECTIVE: Vital Signs: Ht 156.2 cm (5' 1.5") Wt 73 kg (161 lb) LMP 05/08/2024 [...] Lymph 1.00 - 4.00 k/uL 2.41 Abs [place] 0.00 - 0.86 k/uL 0.32 Abs Eosin [...] presents today for a second opinion about "pre-cancer in her throat" and gastroparesis. Regarding her pre-cancerous lesions, biopsies [...] above. Santino Aguilera MD documented in this encounterOhiohealth [facility]heastern [facility] Center01-03-2025 Evaluation note* Diagnosis Onset Date Resolution Status Admit Date Delayed gastric emptying acute May 25, 2024 9:31am IBS (irritable bowel syndrome) acute May 25, 2024 9:31am RUQ pain acute May 25 9:31am Influenza A acute July 28 10:17am Depression with anxiety acute A pril 2024 2:44pm Chronic back pain chronic August 222024 2:44pm [facility] Work Phone: [phone]) 946-467312-13-2024 Hospital Discharge instructions Patient Education 05/04/2024 20:50:55 [...] or legs Numbness in the groin area 4301-[address] [employer] [place] [address]. All rights reserved. This information is not intended as a substitute for professional medical care. Always follow yourhealthcare professional's instructions. Follow Up Care 05/04/2024 19:11:03 With:ES HATCH DO Address: [place] [address] [address] [address] [phone] When:2-4 days [facility] 12-13-2024 Note Discharge Instructions Thank you for allowing [facility] to assist you with your healthcare needs. The following is importantdischarge information regarding your hospital visit. Diagnosis from Today's Visit Back pain What to Do Next Instructions from Your Care Team No qualifying data available. Post Acute Orders No qualifying data available. You Need to Schedule the Following Appointments Follow Up with ES HATCH DO When:Within 2-4 days Where:[facility] [address] [address] [phone] Allergies Chantix naproxen Medications Please ask your primary doctor or pharmacist before taking any other medication not listed, including over the counter drugs, herbal medications, vitamins and or supplements as they may interact withyour home medications. What How Much When Why Instructions Last Dose New acetaminophen-hydrocodone (Zortman 325- 5 mg oral tablet) 1 tab(s) [...] or legs Numbness in the groin area 8353-83[address] [employer]. [address] [place] [address]. All rights reserved. This information is not intended as a substitute for professional medical care. Always follow yourhealthcare professional's instructions. Additional Information VACCINATE! IT SAVES LIVES! Members of the community who have not yet received the COVID-19 vaccine and would like to receive it can visit one of [facility] vaccine clinics. There are many vaccine clinic locations within the [facility]. For locations and available times, please visit www.gettheshot.coronavirus.[place].gov/. It is important to note that some COVID mobile vaccine clinics are held outdoors and may be canceled in rainy or stormy conditions. To learn more about pediatric vaccinations (ages 5-11), we invite you to visit the [facility] webpage. https://www.[email or web address].org/pages/[email or web address]-Zwfzj-Mfpxyetvfts-Rjodkvlroo-Gfzpo-Zgw stions.htmlTo learn more about the COVID-19 vaccine, we invite you to visit the CDC website for a list of frequently asked questions. https://www.cdc.gov/coronavirus/2019-ncov/vaccines/faq.html [facility] Patient Portal Access Instructions: Stay connected with your healthcare team and access your personal medical information anytime with the [facility] Patient Portal. If you would like a full copy of your medical records please contact the [facility] Medical Records Department Tuesday through Tuesday between 8a.m. and 4:30p.m. Please follow the directions below to access the portal: 1.Access the email account you provided upon registration to the [facility].2.Look for an invitation email from [facility].3.Open the email and access the invitation link: Accept Invitation to TristenTier 34.Fill in the required mark to create your account. Sign into [email or web address] Networks with your username and password that you [...] you will allow to register on the [facility] Patient Portal for access to your information. You can also access the TristenTier 3 Patient Portal on the [employer]. Simply click on "Health Records" under "The Sandpit" and then click on the HeyLets logo. HOW TO SAFELY DISPOSE OF PRESCRIPTION [...] Call your local pharmacy or go to [email or web address] to find one close to you.3.Make use of household items: Use cat litter or old coffee grounds to dispose medications if other options arenot available. Mix your drugs with these household products, seal them in an airtight container andthrow it into the garbage. Call [facility]: [phone] to be sure your drugs can be [...] that I should contact my d octor. Patient/Routeman Signature: Date/Time: Relationship to Patient: Witness Name/Signature: Date/Time: [facility]12-13-2024 Note ORIGINAL EXAMINATION: CT OF THE ABDOMEN AND PELVIS WITH MFIYWCDI80/13/2024 8:[address] ABDOMEN/PELVIS WITH CONTRAST TECHNIQUE: [...] was dx w a month ago at [facility] pain FINDINGS: The size, density, and morphology [...] Sign Date: 05/04/2024 8:37:31 PM Ordering Provider: [facility]11-08-2024 Telephone encounter Note* Telephone Encounter - Angelic Vera LPN - 03/30/2024 12:18 PM EST Pt notified that results have been received and NK will have discussion about them on 04-06 [facility] [id number] Miscellaneous Notes* Telephone Encounter - Angelic Vera LPN - 03/30/2024 12:18 PM EST Pt notified that results have been received and NK will have discussion about them on 04-06 * Telephone Encounter - Coral Pierre MD - 03/30/2024 11:36 AM EST Please let the pt know We have her CT result/EGD and we will discuss ozempic during her upcoming yaya on 04/06. Thank you * Telephone Encounter - Angelic Vera LPN - 03/30/2024 10:23 AM EST Received reports from [facility]. Scanned in media mgr. Please advise. * Telephone Encounter - Angelic Vera LPN - 03/30/2024 8:07 AM EST LVM at [facility] Medical records. Requesting recent CT scan with contrast and EGD for review. Left phone and fax number. * Telephone Encounter - Angelic Vera LPN - 03/29/2024 3:39 PM EST Spoke with pt. Pt states that she wants to share procedures done at [facility] EGD and CT scan with contrast. Pt states her stomach is enlarged and the size of her liver. Doctor believes it might be a side effect from Ozempic. Pt also had irregular stomach biopsy. Will contact [facility] for records. Explained to pt more efficient way to reach our office is [email or web address]. Pt states it was too much to explain. Pt will be off work all day tomorrow. 03-30-24 * Telephone Encounter - Colleen Hennessy - 03/29/2024 3:32 PM EST PATIENT CALLED SAID SHE NEEDED TO SPEAK TO DR PIERRE'S OFFICE WITH QUESTIONS ABOUT MEDICATIONS / PATIENT DID NOT WANT TO COMMUNICATE THROUGH AB Tasty documented in this encounterSUniversity Hospitals TriPoint Medical [id number] Telephone encounter Note* Telephone Encounter - Coral Pierre MD - 03/30/2024 11:36 AM EST Please let the pt know We have her CT result/EGD and we will discuss ozempic during her upcoming yaya on 04/06. Thank you [facility] [id number] Note* Addendum Note - Opal Thomas LPN - 03/30/2024 10:28 AM ESTAddended by: OPAL THOMAS on: 03/30/2024 10:28 AM Modules accepted: Orders [facility]11-08-2024 Miscellaneous Notes* Addendum Note - Opal Thomas LPN - 03/30/2024 10:28 AM ESTAddended by: OPAL THOMAS on: 03/30/2024 10:28 AM Modules accepted: Orders documented in this encounterOhiohealth Southeastern Medical Center11-08-2024 Telephone encounter Note * Telephone Encounter - Angelic Vera LPN - 03/30/2024 10:23 AM EST Received reports from [facility]. Scanned in media mgr. Please advise. [id number] Instructions* Patient Instructions* Dari White APRN.SOFT MUD MOLDER - 03/30/2024 9:43 AM EST SINUSITIS: You [...] vomiting, or unusual drowsiness. documented in this encounterOhiohealth Southeastern Medical Center11-08-2024 History of Present illness Narrative* [...] PATIENT PRESENTS WITH AN IMPLANTABLE OR ATTACHED LASER BEAM COLOR SCANNER OPERATOR: No RADIOLOGY DEPARTMENT: General X-ray: Exam(s) Completed: Chest X-Ray PERIPHERAL IV DATA: Not applicable SIGNED BY: RT Ritesh(R) March 30, 2024 9:12 AM documented in this encounterOhiohealth Southeastern Medical Center11-08-2024 NoteHNO ID: [id number] Author: SCOTT CRAWFORD RT(Stella) Service: Radiology Author [...] PATIENT PRESENTS WITH AN IMPLANTABLE OR ATTACHED LASER BEAM COLOR SCANNER OPERATOR: No RADIOLOGY DEPARTMENT: General X-ray: Exam(s) Completed: Chest X-Ray PERIPHERAL IV DATA: Not applicable SIGNED BY: RT Ritesh(R) March 30, 2024 9:12 [facility]11-08-2024 NoteHNO ID: [id number] Author: DARI WHITE APRN.SOFT MUD MOLDER Service: ? Author Type: Nurse Practitioner Type: Progress Notes Filed: 03/30/2024 09:48 Note Text: This note was created using NoteWriter. Subjective Dari Aparicio is a 33 year old female. 33 year old female with PMH ashtma, anxiety and depression presents for illness. Acute onset one week ago + cough +productive +sinus pressure +nasal congestion +rhinorrhea ' thick and green" Cough keeping up at night Denies tobacco usage Denies using homeopathic or OTC I think it is a sinus infection and my mom thinks it is pneumonia States she does not have a current albuterol inhaler despite her diagnosis of asthma. The history is provided by the patient. No halfway house counselor was used. Cough This is a new [...] SURGICAL HISTORY Procedure Laterality Date DELIVERY ONLY 11/28/12 , low transverse COLONOSCOPY FLX DX W/COLLJ [...] mouth. (Patient not taking: Reported on 06/14/2023) Vypctkmeegfam-Wx-Gkvh-Minerals (MULTIPLE VITAMIN, WOMENS) tab Take 1 tablet [...] status: Former Current packs (more content not included)...[facility]11-08-2024 History of Present illness Narrative* Dari White APRN.[facility] - 03/30/2024 8:56 AM EST This note was created using Terraplay Systemsriter. Subjective Darirachael Aparicio is a 33 year old female. 33 year old female with PMH ashtma, anxiety and depression presents for illness. Acute onset one week ago + cough +productive +sinus pressure +nasal congestion +rhinorrhea ' thick and green" Cough keeping up at night Denies tobacco usage Denies using homeopathic or OTC I think it is a sinus infection and my mom thinks it is pneumonia States she does not have a current albuterol inhaler despite her diagnosis of asthma. The history is provided by the patient. No halfway house counselor was used. Cough This is a new [...] mouth. (Patient not taking: Reported on 06/14/2023) Yccjwsubfpsdg-Qo-Dpur-Minerals (MULTIPLE VITAMIN, WOMENS) tab Take 1 tablet [...] if symptoms persist or worsen. Dari White APRN.SOFT MUD MOLDER documented in this encounterCleveland [id number] Telephone encounter Note * Telephone Encounter - Angelic Vera LPN - 03/30/2024 8:07 AM EST LVM at [facility] Medical records. Requesting recent CT scan with contrast and EGD for review. Left phone and fax number. [facility] [id number] NoteSpoke with pt. Pt states that she wants to share procedures done at [facility] EGD and CT scan with contrast. Pt states her stomach is enlarged and the size of her liver. Doctor believes it might be a side effect from Ozempic. Pt also had irregular stomach biopsy. Will contact [facility] for records. Explained to pt more efficient way to reach our office is mychart. Pt states it was too much to explain. Pt will be off work all day tomorrow. 70-2-45[facility]jnflCorewell [facility]11-07-2024 Telephone encounter Note* Telephone Encounter - Angelic Vera LPN - 03/29/2024 3:39 PM EST Spoke with pt. Pt states that she wants to share procedures done at [facility] EGD and CT scan with contrast. Pt states her stomach is enlarged and the size of her liver. Doctor believes it might be a side effect from Ozempic. Pt also had irregular stomach biopsy. Will contact [facility] for records. Explained to pt more efficient way to reach our office is mychart. Pt states it was too much to explain. Pt will be off work all day tomorrow. 03-30-24 [facility] [id number] Telephone encounter Note* Telephone Encounter - Colleen Hennessy - 03/29/2024 3:32 PM EST PATIENT CALLED SAID SHE NEEDED TO SPEAK TO DR PIERRE'S OFFICE WITH QUESTIONS ABOUT MEDICATIONS / PATIENT DID NOT WANT TO COMMUNICATE THROUGH AB Tasty [facility]07-19-2024 History of Present illness Narrative* Angelic Vera, PERFORMANCE MAKEUP ARTIST - 12/09/2023 11:30 AM EDT [facility] NON-SURGICAL WEIGHT LOSS MANAGEMENT PROGRAM ROOMING NOTE: FOLLOW UP VISIT Patient: Drai Aparicio Date of : 1990 Service Date: 12/09/2023 Patient History/Assessment Summary: The patient is a pleasant 33 y.o. year old female, who stands Height: 5' 2" (157.5 cm) tall with a weight of Weight: 142 lb 9.6 oz (64.7 kg) pounds, resulting in a BMI of Body mass index is 26.08 kg/m . kg/m2. She is here for follow-up for non-surgical treatment of Obesity Patient has the following question(s): none Pre Program Weight Metrics (CARE Path) Date of Initial Consultation:@FLOWLAST(8961)@ Initial Weight: @FLOWLAST([id number])@ Initial BMI: @FLOWLAST([id number])@ [place] Body Weight: @FLOWLAST([id number])@ Excess Body Weight: @FLOWLAST([id number])@ Body Fat Percentage: Failed to redirect to the Timeline version of the REVAmorelie SmartLink. Subsequent Body Fat Percentage: Failed to redirect to the Timeline version of the REVFS SmartLink. Pre Program Weight Metrics (Epic) (Surgical Wt Loss Management- baseline) This Visit Non-Surgical Subsequent Eval Date: 12/09/23 Height: 5' 2" (157.5 cm) Weight: 142 lb 9.6 oz [...] O2 Completed by: Angelic Vera LPN * Coral Pierre MD - 12/09/2023 11:30 AM EDT [...] Blood pressure 117/69, pulse 71, height 5' 2" (1.575 m), weight 142 lb 9.6 oz [...] documented in this encounterSUniversity Hospitals TriPoint Medical [id number] Telephone encounter Note* Telephone Encounter - Angelic Vera LPN - 11/30/2023 2:16 PM EDT Msg sent to pt that she will need to bring CT results to next OV. [facility] [id number] Miscellaneous Notes* Telephone Encounter - Angelic Vera LPN - 11/30/2023 2:16 PM EDT Msg sent to pt that she will need to bring CT results to next OV. * Telephone Encounter - Coral Pierre MD - 11/30/2023 1:45 PM EDT [...] and stated her TB test was positive. [facility] policy states she needs to have CXR before een in office. Pt also stated in her note need for refill of Ozempic. Do you need to see pt for refill d/t CT scan result? Please advise. Thanks! * Telephone Encounter - Kamila Ricks - 11/30/2023 9:09 AM EDT I called this patient to inform them due to the positive TB test it is in [facility] policy for the patient to have the chest x ray to verify it is not active before proceeding with office visits. I informed the patient to call us back to reschedule once xray is complete. I informed the Medical staff about the medication refill and informed the patient about them speaking to Dr. Pierre about sending in the prescription electronically. documented in this encounterSUniversity Hospitals TriPoint Medical [id number] Telephone encounter Note* Telephone Encounter - Coral Pierre MD - 11/30/2023 1:45 PM EDT Please request CT result. Please let the pt know I need to have the results of CT before I can prescribe ozempic. Thank you. [facility] [id number] Telephone encounter Note* Telephone Encounter - Angelic Vear LPN - 11/30/2023 9:18 AM EDT Pt sent msg this morning that she was seen in ER and had ABD CT scan that showed constipation and now using Miralax. Pt states he is unable to come to appt Tuesday- due to new employment. Staff made an appt for 12-01. 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 [facility] policy states she needs to have CXR before een in office. Pt also stated in her note need for refill of Ozempic. Do you need to see pt for refill d/t CT scan result? Please advise. Thanks! [facility] [id number] Telephone encounter Note* Telephone Encounter - Kamila Ricks - 11/30/2023 9:09 AM EDT I called this patient to inform them due to the positive TB test it is in [facility] policy for the patient to have the chest x ray to verify it is not active before proceeding with office visits. I informed the patient to call us back to reschedule once xray is complete. I informed the Medical staff about the medication refill and informed the patient about them speaking to Dr. Pierre about sending in the prescription electronically. [facility] [id number] Telephone encounter Note* Telephone Encounter - Coral Pierre MD - 11/23/2023 3:49 PM EDT 4 attempts to reach the pt via phone. The pt is not available for the conversation. Voice mail is the only option. [facility] [id number] Miscellaneous Notes* Telephone Encounter - Coral Pierre MD - 11/23/2023 3:49 PM EDT 4 attempts to reach the pt via phone. The pt is not available for the conversation. Voice mail is the only option. documented in this [facility]06-12-2024 History of Present illness Narrative* Coral Pierre MD - 11/02/2023 8:40 AM EDT [...] Blood pressure 103/68, pulse 76, height 5' 2" (1.575 m), weight 144 lb 9.6 oz [...] Hinds MA - 11/02/2023 8:40 AM EDT [facility] NON-SURGICAL WEIGHT LOSS MANAGEMENT PROGRAM ROOMING NOTE: FOLLOW UP VISIT Patient: Dari Aparciio Date of : 1990 Service Date: 11/02/2023 Patient History/Assessment Summary: The patient is a pleasant 33 y.o. year old female, who stands Height: 5' 2" (157.5 cm) tall with a weight of Weight: 144 lb 9.6 oz (65.6 kg) pounds, resulting in a BMI of Body mass index is 26.45 kg/m . kg/m2. She is here for follow-up for non-surgical treatment of Over weight Patient has the following question(s): none Pre Program Weight Metrics (CARE Path) Date of Initial Consultation:@FLOWLAST(8961)@ Initial Weight: @FLOWLAST([id number])@ Initial BMI: @FLOWLAST([id number])@ [place] Body Weight: @FLOWLAST([id number])@ Excess Body Weight: @FLOWLAST([id number])@ Body Fat Percentage: Failed to redirect to the Timeline version of the REVAmorelie SmartLink. Subsequent Body Fat Percentage: Failed to redirect to the Timeline version of the REVAmorelie SmartLink. Pre Program Weight Metrics (Epic) (Surgical Wt Loss Management- baseline) This Visit Non-Surgical Subsequent Eval Date: 11/02/23 Height: 5' 2" (157.5 cm) Weight: 144 lb 9.6 oz [...] by: Kiera Hinds MA documented in this [facility]03-19-2024 History of Present illness Narrative* Ajay Nguyễn MD - 08/09/2023 1:16 PM EDT [facility] [address] [facility] [place] [address] [facility] [address] Dept: [phone] MD Dari Hood 33 y.o. female Patient presents with a chief complaint of Sinusitis (Chronic maxillary sinusitis, new pt) Temp 98.8 F (37.1 C) (Temporal) Ht 5' 1.5" Wt 62 kg (136 lb 11.2 oz) [...] antibiotic courses, 10 days course initially on Z-queta,then two additional courses, and most recently Clindamycin, [...] subma ndibular glands, clear salivary flow from Rona's ducts, no stones of Bollinger's ducts Temporomandibular Joint: no crepitus with motion, [...] and is agreeable to the treatment plan. --Ajay Nguyễn MD on 08/09/2023 at 1:37 PM An electronic signature was used to authenticate this note. * Coral Pena MA - 08/09/2023 1:06 PM EDT Review of Systems Constitutional: Negative. HENT: Positive for sinus pressure and sinus pain. Eyes: Negative. Respiratory: Negative. Cardiovascular: Negative. Gastrointestinal: Negative. Endocrine: Negative. Genitourinary: Negative. Musculoskeletal: Negative. Skin: Negative. Allergic/Immunologic: Positive for environmental allergies. Neurological: Positive for headaches. Hematological: Negative. Psychiatric/Behavioral: Negative. documented in this [id number] History of Present illness Narrative* Kiera Hinds MA - 07/29/2023 11:40 AM EST [facility] NON-SURGICAL WEIGHT LOSS MANAGEMENT PROGRAM ROOMING NOTE: FOLLOW UP VISIT Patient: Dari Aparicio Date of : 1990 Service Date: 07/29/2023 Patient History/Assessment Summary: The patient is a pleasant 33 y.o. year old female, who stands Height: 5' 2" (157.5 cm) tall with a weight of Weight: 138 lb 12.8 oz (63 kg) pounds, resulting in a BMI of Body mass index is 25.39 kg/m. kg/m2. She is here for follow-up for non-surgical treatment of Over weight Patient has the following question(s): none Pre Program Weight Metrics (CARE Path) Date of Initial Consultation:@FLOWLAST(8961)@ Initial Weight: @FLOWLAST([id number])@ Initial BMI: @FLOWLAST([id number])@ [place] Body Weight: @FLOWLAST([id number])@ Excess Body Weight: @FLOWLAST([id number])@ Body Fat Percentage: Failed to redirect to the Timeline version of the REVFS SmartLink. Subsequent Body Fat Percentage: Failed to redirect to the Timeline version of the REVFS SmartLink. Pre Program Weight Metrics (Epic) (Surgical Wt Loss Management- baseline) This Visit Non-Surgical Subsequent Eval Date: 07/29/23 Height: 5' 2" (157.5 cm) Weight: 138 lb 12.8 oz [...] O2 Completed by: Kiera Hinds MA * Coral Pierre MD - 07/29/2023 11:40 AM EST HPI, PHYSICAL EXAMINATION & PLAN HPI: Patient here today for follow up for non-surgical weight loss management Weight trend since last visit: lost 2 lbs over 2 m stable This patient's excess weight is causing the following co-morbid conditions at this time:Other IR Physical Examination: Blood pressure 104/68, pulse 73, height 5' 2" (1.575 m), weight 138 lb 12.8 oz [...] is updated and completed. documented in this [facility]03-01-2024 Miscellaneous Notes* Telephone Encounter - ALEA Carson Evanthia - 07/22/2023 12:36 PM EST Called in Drysol and Spironolactone from today's visit to the [facility] pharmacy in [place]. documented in this encounterOhio[facility] Center03-01-2024 History of Present illness Narrative* Lory Del Castillo DO - 07/22/2023 11:27 AM EST Established Patient Visit Last Visit Date: 06/14/2023 CC: ayaan HPI: 33 year old female. Today's concerns are: 1) acne Location: face Duration: months Symptoms: patient states her face is "the same" Current treatment: clindamycin, tretinoin, spironolactone (patient using [...] Past Histories independently gathered by the clinical nursing support worker and the remaining scribed note accurately describes my personal service to the patient. Lory Del Castillo DO documented in this encounterOhiohealth [facility] Center01-12-2024 History of Present illness Narrative* Coral Pierre MD - 06/03/2023 11:40 AM EST HPI, PHYSICAL EXAMINATION & PLAN HPI: Patient here today for follow up for non-surgical weight loss management Weight trend since last visit: lost 10 lbs over 2 m stable This patient's excess weight is causing the following co-morbid conditions at this time:Other IR Physical Examination: Blood pressure 108/72, pulse 80, height 5' 2" (1.575 m), weight 140 lb 12.8 oz [...] Hinds MA - 06/03/2023 11:40 AM EST [facility] NON-SURGICAL WEIGHT LOSS MANAGEMENT PROGRAM ROOMING NOTE: FOLLOW UP VISIT Patient: Dari Aparicio Date of : 1990 Service Date: 06/03/2023 Patient History/Assessment Summary: The patient is a pleasant 33 y.o. year old female, who stands Height: 5' 2" (157.5 cm) tall with a weight of Weight: 140 lb 12.8 oz (63.9 kg) pounds, resulting in a BMI of Body mass index is 25.75 kg/m . kg/m2. She is here for follow-up for non-surgical treatment of Over weight Patient has the following question(s): none Pre Program Weight Metrics (CARE Path) Date of Initial Consultation:@FLOWLAST(8961)@ Initial Weight: @FLOWLAST([id number])@ Initial BMI: @FLOWLAST([id number])@ [place] Body Weight: @FLOWLAST([id number])@ Excess Body Weight: @FLOWLAST([id number])@ Body Fat Percentage: No flowsheet data found. Subsequent Body Fat Percentage: No flowsheet data found. Pre Program Weight Metrics (Epic) (Surgical Wt Loss Management- baseline) This Visit Non-Surgical Subsequent Eval Date: 06/03/23 Height: 5' 2" (157.5 cm) Weight: 140 lb 12.8 oz [...] by: Kiera Hinds MA documented in this [facility]01-10-2024 NotePap Smear Specimen AdequacyJanuary 2023 11:59pmComment.Satisfactory for evaluation. No endocervical component is identified.[facility] INTERFACED A#[id number] HealthComment on above:Satisfactory for evaluation. No endocervical component is identified.04-29-2023 History of Present illness Narrative* Coral Pierre MD - 04/29/2023 2:00 PM EST HPI, PHYSICAL EXAMINATION & PLAN HPI: Patient here today for follow up for non-surgical weight loss management Weight trend since last visit: lost 5 lbs over 1 m stable This patient's excess weight is causing the following co-morbid conditions at this time:Other IR Physical Examination: Blood pressure 113/76, pulse 68, height 5' 2" (1.575 m), weight 150 lb 8 oz [...] year old female, who stands Height: 5' 2" (157.5 cm) tall with a weight of Weight: 150 lb 8 oz (68.3 kg) pounds, resulting in a BMI of Body mass index is 27.53 kg/m . kg/m2. She is here for follow-up for non-surgical treatment of Over weight Patient has the following question(s): none Pre Program Weight Metrics (CARE Path) Date of Initial Consultation:@FLOWLAST(8961)@ Initial Weight: @FLOWLAST([id number])@ Initial BMI: @FLOWLAST([id number])@ [place] Body Weight: @FLOWLAST([id number])@ Excess Body Weight: @FLOWLAST([id number])@ Body Fat Percentage: No flowsheet data found. Subsequent Body Fat Percentage: No flowsheet data found. Pre Program Weight Metrics (Epic) (Surgical Wt Loss Management- baseline) This Visit Non-Surgical Subsequent Eval Date: 04/29/23 Height: 5' 2" (157.5 cm) Weight: 150 lb 6.4 oz [...] by: Angelic Vera LPN documented in this [facility]11-03-2023 History of Present illness Narrative* Angelic Vera LPN - 03/25/2023 11:10 AM EDT [facility] NON-SURGICAL WEIGHT LOSS MANAGEMENT PROGRAM ROOMING NOTE: FOLLOW UP VISIT Patient: Dari Aparicio Date of : 1990 Service Date: 03/25/2023 Patient History/Assessment Summary: The patient is a pleasant 32 y.o. year old female, who stands Height: 5' 2" (157.5 cm) tall with a weight of Weight: 155 lb (70.3 kg) pounds, resulting in a BMI of Body mass index is 28.35 kg/m . kg/m2. She is here for follow-up for non-surgical treatment of Obesity Patient has the following question(s): none Pre Program Weight Metrics (CARE Path) Date of Initial Consultation:@FLOWLAST(8961)@ Initial Weight: @FLOWLAST([id number])@ Initial BMI: @FLOWLAST([id number])@ [place] Body Weight: @FLOWLAST([id number])@ Excess Body Weight: @FLOWLAST([id number])@ Body Fat Percentage: No flowsheet data found. Subsequent Body Fat Percentage: No flowsheet data found. Pre Program Weight Metrics (Epic) (Surgical Wt Loss Management- baseline) This Visit Non-Surgical Subsequent Eval Date: 03/25/23 Height: 5' 2" (157.5 cm) Weight: 155 lb (70.3 kg) [...] O2 Completed by: Angelic Vera LPN * Coral Pierre MD - 03/25/2023 11:10 AM EDT HPI, PHYSICAL EXAMINATION & PLAN HPI: Patient here today for follow up for non-surgical weight loss management Weight trend since last visit: lost 3 lbs over 1 m stable This patient's excess weight is causing the following co-morbid conditions at this time:Other IR Physical Examination: Blood pressure 91/60, pulse 78, height 5' 2" (1.575 m), weight 155 lb (70.3 kg). [...] is updated and completed. documented in this [facility]10-06-2023 History of Present illness Narrative* Angelic Vera LPN - 02/25/2023 2:10 PM EDT [facility] NON-SURGICAL WEIGHT LOSS MANAGEMENT PROGRAM ROOMING NOTE: FOLLOW UP VISIT Patient: Dari Aparicio Date of : 1990 Service Date: 02/25/2023 Patient History/Assessment Summary: The patient is a pleasant 32 y.o. year old female, who stands Height: 5' 2" (157.5 cm) tall with a weight of Weight: 158 lb 6.4 oz (71.8 kg) pounds, resulting in a BMI of Body mass index is 28.97 kg/m . kg/m2. She is here for follow-up for non-surgical treatment of Over weight Patient has the following question(s): none Pre Program Weight Metrics (CARE Path) Date of Initial Consultation:@FLOWLAST(8936)@ Initial Weight: @FLOWLAST([id number])@ Initial BMI: @FLOWLAST([id number])@ [place] Body Weight: @FLOWLAST([id number])@ Excess Body Weight: @FLOWLAST([id number])@ Body Fat Percentage: No flowsheet data found. Subsequent Body Fat Percentage: No flowsheet data found. Pre Program Weight Metrics (Epic) (Surgical Wt Loss Management- baseline) This Visit Non-Surgical Subsequent Eval Date: 02/25/23 Height: 5' 2" (157.5 cm) Weight: 158 lb 6.4 oz [...] O2 Completed by: Angelic Vera LPN * Coral Pierre MD - 02/25/2023 2:10 PM EDT HPI, PHYSICAL EXAMINATION & PLAN HPI: Patient here today for follow up for non-surgical weight loss management Weight trend since last visit: lost 7 lbs over 2 m stable This patient's excess weight is causing the following co-morbid conditions at this time:Other IR Physical Examination: Blood pressure 96/64, pulse 76, height 5' 2" (1.575 m), weight 158 lb 6.4 oz [...] documented in this encounterSUniversity Hospitals TriPoint Medical [id number] Telephone encounter Note* Telephone Encounter - Angelic Vera LPN - 02/10/2023 12:33 PM EDT Please sign orders. Thank you! [facility] [id number] Miscellaneous Notes* Telephone Encounter - Angelic Vera LPN - 02/10/2023 12:33 PM EDT Please sign orders. Thank you! * Telephone Encounter - Elyse Richard MA - 02/10/2023 10:13 AM EDT Patient left VM that she will run out of ozempic before her next apt with NK. Requesting a refill. documented in this [facility]09-21-2023 Telephone encounter Note* Telephone Encounter - Elyse Richard MA - 02/10/2023 10:13 AM EDT Patient left VM that she will run out of ozempic before her next apt with [facility]. Requesting a refill. [facility] [id number] History of Present illness Narrative* Angelic Vera LPN - 01/19/2023 3:20 PM EDT [facility] NON-SURGICAL WEIGHT LOSS MANAGEMENT PROGRAM ROOMING NOTE: FOLLOW UP VISIT Patient: Dari Aparicio Date of : 1990 Service Date: 01/19/2023 Patient History/Assessment Summary: The patient is a pleasant 32 y.o. year old female, who stands Height: 5' 2" (157.5 cm) tall with a weight of Weight: 165 lb 6.4 oz (75 kg) pounds, resulting in a BMI of Body mass index is 30.25 kg/m . kg/m2. She is here for follow-up for non-surgical treatment of Over weight Patient has the following question(s): none Pre Program Weight Metrics (CARE Path) Date of Initial Consultation:@FLOWLAST(8961)@ Initial Weight: @FLOWLAST([id number])@ Initial BMI: @FLOWLAST([id number])@ [place] Body Weight: @FLOWLAST([id number])@ Excess Body Weight: @FLOWLAST([id number])@ Body Fat Percentage: No flowsheet data found. Subsequent Body Fat Percentage: No flowsheet data found. Pre Program Weight Metrics (Epic) (Surgical Wt Loss Management- baseline) This Visit Non-Surgical Subsequent Eval Date: 01/19/23 Height: 5' 2" (157.5 cm) Weight: 165 lb 6.4 oz [...] O2 Completed by: Angelic Vera LPN * Coral Pierre MD - 01/19/2023 3:20 PM EDT HPI, PHYSICAL EXAMINATION & PLAN HPI: Patient here today for follow up for non-surgical weight loss management Weight trend since last visit: lost 4 lbs over 1 m stable This patient's excess weight is causing the following co-morbid conditions at this time:Other IR Physical Examination: Blood pressure 99/67, pulse 67, height 5' 2" (1.575 m), weight 165 lb 6.4 oz [...] documented in this encounterSUniversity Hospitals TriPoint Medical CenterDoztzt77-14-1628 History of Present illness Narrative* Shelia Tapia PA-C - 01/12/2023 9:26 AM EDT Patient presents with [facility] care with severe abdominal pain for 2 days. She rates it a 9/10 in upper abdomen. She feels nauseated. Patient in tears and in obvious pain here. She just started ozempic as well. I recommended being seen I the ER. She will go to [facility] for further care. documented in this encounterOhiohealth [facility]07-26-2023 History of Present illness Narrative* Angelic Vera LPN - 12/15/2022 3:10 PM EDT [facility] NON-SURGICAL WEIGHT LOSS MANAGEMENT PROGRAM ROOMING NOTE: FOLLOW UP VISIT Patient: Dari Aparicio Date of : 1990 Service Date: 12/15/2022 Patient History/Assessment Summary: The patient is a pleasant 32 y.o. year old female, who stands Height: 5' 2" (157.5 cm) tall with a weight of pounds, resulting in a BMI of Body mass index is 31.28 kg/m . kg/m2. She is here for follow-up for non-surgical treatment of Over weight Patient has the following question(s): none Pre Program Weight Metrics (CARE Path) Date of Initial Consultation:@FLOWLAST(8961)@ Initial Weight: @FLOWLAST([id number])@ Initial BMI: @FLOWLAST([id number])@ [place] Body Weight: @FLOWLAST([id number])@ Excess Body Weight: @FLOWLAST([id number])@ Body Fat Percentage: No flowsheet data found. [...] O2 Completed by: Angelic Vera LPN * Coral Pierre MD - 12/15/2022 3:10 PM EDT HPI, PHYSICAL EXAMINATION & PLAN HPI: Patient here today for follow up for non-surgical weight loss management Weight trend since last visit: lost 2 lbs over 1 m stable This patient's excess weight is causing the following co-morbid conditions at this time:Other IR Physical Examination: BP 103/69 Pulse 74 Ht 5' 2" (1.575 m) Wt 169 lb (76.7 kg) [...] is updated and completed. documented in this [facility]07-12-2023 History of Present illness Narrative* Malou Hernandez ST - 12/01/2022 12:10 PM EDT DATE OF PHOTOS: 12/01/2022 Body Part: Breasts and Abdomen ST [facility] December 01, 2022 12:10 PM documented in this encounterOhiohealth Southeastern Medical Center07-12-2023 History of Present illness Narrative* Colin Bella MD - 12/01/2022 11:15 AM EDT Plastic Surgery Note CC: Consultation for Abdominoplasty HPI: Dari is a 32 year old female presenting today for a consultation for abdominoplasty. Bothered by fullness of her abdomen. Reports having rashes under her abdominal folds requiring several course of antibiotics. States discomfort and "pulling" at her right hip labral tear repair [...] DVT/PE/clotting disorder: Denies DM: Gestational diabetes resolved; "insulin resistance" Smoking history: Former smoker, quit 2011 Lives: [...] phentermine HCl (ADIPEX-P ORAL) Take by mouth. Wcszzukjntylg-Th-Qsnh-Minerals (MULTIPLE VITAMIN, WOMENS) tab Take 1 tablet [...] C (96.7 F) Ht 156.2 cm (5' 1.5") Wt 78 kg (172 lb) LMP 08/12/2022 [...] his service. Scribed by Christina Case APRN, 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-C I agree with the Chief Complaint, ROS, and Past Histories independently gathered by the clinical nursing support worker and the remaining scribed note accurately describes my personal service to the patient. Colin Bella MD documented in this encounterOhiohealth Southeastern Medical Center06-23-2023 History of Present illness Narrative* Jessie Butler - 11/12/2022 9:30 AM EDT [facility] NON-SURGICAL WEIGHT LOSS MANAGEMENT PROGRAM ROOMING NOTE: [...] Path) Date of Initial Consultation:@FLOWLAST(8961)@ Initial Weight: @FLOWLAST([id number])@ Initial BMI: @FLOWLAST([id number])@ [place] Body Weight: @FLOWLAST([id number])@ Excess Body Weight: @FLOWLAST([id number])@ Body Fat Percentage: No flowsheet data found. Subsequent Body Fat Percentage: No flowsheet data found. Pre Program Weight Metrics (Epic) (Surgical Wt Loss Management- baseline) This Visit Non-Surgical Subsequent Eval Date: 11/12/22 Height: 5' 2" (157.5 cm) Weight: 171 lb (77.6 kg) [...] home O2 Completed by: Jessie Butler * Coral Pierre MD - 11/12/2022 9:30 AM EDT [facility] NON-SURGICAL WEIGHT LOSS MANAGEMENT PROGRAM PROGRESS NOTE INITIAL EVALUATION Previously seen as a surgical patient in 05/2021 Patient: Dari Aparicio Service Date: 11/12/22 Date of : 1990 Patient History/Assessment Summary: The patient is a pleasant 32 y.o. year old female, who stands Height: 5' 2" (157.5 cm) tall with a weight of [...] the Patient, which is located in the [facility] Medical ManagerTab. History: Past Medical History: Diagnosis Date [...] 2016 [facility] - laparoscopic BREAST SURGERY Bilateral [facility] SECTION (HISTORICAL) 2019 [facility] - pfannenstiel SECTION (HISTORICAL) 2011 [facility] - pfannenstiel HIP SURGERY Right Labral tear, shaved hip bone during SX- [facility] KNEE SURGERY Bilateral [place]- [place] removal TONSILLECTOMY AND ADENOIDECTOMY (HISTORICAL) [place] Family History Problem Relation Name Age of [...] Examination: BP 109/72 Pulse 81 Ht 5' 2" (1.575 m) Wt 171 lb (77.6 kg) BMI 31.28 kg/m Weight Metrics: [place] Body Weight: Excess Body Weight: [place] BMI: 24 General: This patient is alert [...] none Current Activity 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 personal lines agent Current Eating Behaviors structured Health and Behavior Inventory Patient scores as (Select one): [] Unguided Grazer [] Nighttime Nibbler [] Convenient Consumer [] Fruitless Igor [] Mindless Muncher [] Hearty Portioner [] Deprived Sneaker [] Hate to Move Struggler [] Self-Conscious Hider [] Inexperienced [place] [] Pvm-al-Gckcfta Doer [] Set-Routine Repeater [] Jugqu-jvs-Zcbtj Sufferer [] Ps-lijg-kt-Exercise Protester [] Emotional Blue Leather Sorter [] Ktl-Ccua-Ffvkjv Sufferer [] Persistent Procrastinator [] Can t-Say-No [...] Take 1 capsule by mouth daily. BIOTIN 49493 MCG TABLET DISPERSIBLE Take by mouth. CHOLECALCIFEROL [...] in weight loss journey discussed 6.will use Comparameglio.it for communication and let me know if she is using ozempic The patient was seen and a full chart review was performed.Clinical documentation is updated and completed. documented in this [facility]03-28-2023 History of Present illness Narrative* Dari White APRN.SOFT MUD MOLDER - 08/17/2022 6:17 PM EDT This note [...] 2011 Denies using homeopathic or OTC medications COMMISSARY HELPER. The history is provided by the patient. No halfway house counselor was used. Ear Pain This is a [...] by mouth twice daily for 7 days. Jksojmnwyxiba-Nr-Ubyf-Minerals (MULTIPLE VITAMIN, WOMENS) tab Take 1 tablet [...] if symptoms persist or worsen. Dari White APRN.SOFT MUD MOLDER documented in this encounterOhiohealth Southeastern Medical Center01-06-2023 NotePap Smear Specimen AdequacyJanuary 2022 4:31pmComment.Satisfactory for evaluation. Endocervical and/or squamous metaplasticcells (endocervical component)are present.Partially obscuring thick areas are present.[facility] INTERFACED A#[id number] Health System on above:Satisfactory for evaluation. Endocervical and/or squamous metaplasticcells (endocervical component)are present.Partially obscuring thick areas are present.05-28-2022 NotePap Smear Specimen AdequacyJanuary 2022 4:31pmComment.Satisfactory for evaluation. Endocervical and/or squamous metaplasticcells (endocervical component)are present.Partially obscuring thick areas are present.[facility] INTERFACED A#[id number] Health System on above:Satisfactory for evaluation. Endocervical and/or squamous metaplasticcells (endocervical component)are present.Partially obscuring thick areas are present.05-28-2022 NotePap Smear Specimen AdequacyJanuary 2022 4:31pmComment.Satisfactory for evaluation. Endocervical and/or squamous metaplasticcells (endocervical component)are present.Partially obscuring thick areas are present.[facility] INTERFACED A#[id number] Health System on above:Satisfactory for evaluation. Endocervical and/or squamous metaplasticcells (endocervical component)are present.Partially obscuring thick areas are present.01-11-2022 Instructions* Patient Instructions* Dari White APRN.EDEN - 01/11/2022 6:32 PM EDT OTITIS MEDIA [...] even if the symptoms go away. 2. Cfjj-hci-hkcqjod pain medication may be taken or other [...] holding him or her). documented in this encounterOhiohealth Southeastern Medical Center08-22-2022 History of Present illness Narrative* Dari White APRN.CNP - 01/11/2022 6:27 PM EDT This note was created using Terraplay Systemsriter. Subjective Dari Aparicio is a 31 year old female. 31 year old female with PMH ashtma, ADHD, and anxiety presents with complaints of right ear pain. Acute onset today Right ear Sharp 9/10 Constant. States pain is radiating down into her jaw. Denies drainage. Denies reduced hearing. Denies accompanying URI sx Denies cough. Denies fever or chills. Denies using homeopathic or OTC medications COMMISSARY HELPER. The history is provided by the patient. No halfway house counselor was used. Ear Pain This is a [...] by mouth once daily for 1 day. Vpvrtmtcbgcwj-Cz-Atxc-Minerals (MULTIPLE VITAMIN, WOMENS) tab Take 1 tablet [...] if symptoms persist or worsen. Dari White APRN.SOFT MUD MOLDER documented in this encounterOhiohealth Southeastern Medical Center08-17-2016 History of Past illness Narrative* [...] strain on 09/07/10 per ER note from [facility]. Personal history of tobacco use 03/03/2010 09/17/2011 Overview: Quit 02/2010 Tobacco use disorder 03/31/2009 03/03/2010 Tonsillitis 03/31/2009 04/27/2011 Overview: Plans to have T&A now that has quit smoking. Backache, unspecified 05/26/2006 09/17/2011 Overview: Dr. Harrison; History scoliosis Hypertrophy of breast 01/07/2005 04/27/2011 Abdominal pain, epigastric 01/07/200503/03 Abdominal pain, generalized 01/07/200502/20 documented as of this encounter (statuses as of 01/11/2022) [facility]08-[facility]-2016 History of Past illness Narrative* [...] strain on 09/07/10 per ER note from [facility]. Personal history of tobacco use 03/03/2010 09/17/2011 Overview: Quit 02/2010 Tobacco use disorder 03/31/2009 03/03/2010 Tonsillitis 03/31/2009 04/27/2011 Overview: Plans to have T&A now that has quit smoking. Backache, unspecified 05/26/2006 09/17/2011 Overview: Dr. Harrison; History scoliosis Hypertrophy of breast 01/07/2005 04/27/2011 Abdominal pain, epigastric 01/07/200503/03 Abdominal pain, generalized 01/07/200502/20 documented as of this encounter (statuses as of 08/18/2022) [facility] History of Past illness Narrative* [...] strain on 09/07/10 per ER note from [facility]. Personal history of tobacco use 03/03/2010 09/17/2011 Overview: Quit 02/2010 Tobacco use disorder 03/31/2009 010 Tonsillitis 03/31/2009 04/27/2011 Overview: Plans to have T&A now that has quit smoking. Backache, unspecified 05/26/20062011 Overview: Dr. Harrison; History scoliosis Hypertrophy of breast 01/07/20052010 Abdominal pain, epigastric 01/07/2005 1 Abdominal pain, generalized 01/07/2005 03/03/2010 documented as of this encounter (statuses as of 12/01/2022) [facility] History of Past illness Narrative* [...] strain on 09/07/10 per ER note from [facility]. Personal history of tobacco use 03/03/2010 09/17/2011 Overview: Quit 02/2010 Tobacco use disorder 03/31/2009 010 Tonsillitis 03/31/2009 04/27/2011 Overview: Plans to have T&A now that has quit smoking. Backache, unspecified 05/26/20062011 Overview: Dr. Harrison; History scoliosis Hypertrophy of breast 01/07/20052010 Abdominal pain, epigastric 01/07/2005 1 Abdominal pain, generalized 01/07/2005 03/03/2010 documented as of this encounter (statuses as of 12/03/2022) [facility] History of Past illness Narrative* [...] strain on 09/07/10 per ER note from [facility]. Personal history of tobacco use 03/03/2010 09/17/2011 Overview: Quit 02/2010 Tobacco use disorder 03/31/2009 010 Tonsillitis 03/31/2009 04/27/2011 Overview: Plans to have T&A now that has quit smoking. Backache, unspecified 05/26/20062011 Overview: Dr. Harrison; History scoliosis Hypertrophy of breast 01/07/20052010 Abdominal pain, epigastric 01/07/2005 1 Abdominal pain, generalized 01/07/2005 03/03/2010 documented as of this encounter (statuses as of 01/12/2023) [facility] History of Past illness Narrative* [...] strain on 09/07/10 per ER note from [facility]. Personal history of tobacco use 03/03/2010 09/17/2011 Overview: Quit 02/2010 Tobacco use disorder 03/31/2009 010 Tonsillitis 03/31/2009 04/27/2011 Overview: Plans to have T&A now that has quit smoking. Backache, unspecified 05/26/20062011 Overview: Dr. Harrison; History scoliosis Hypertrophy of breast 01/07/20052010 Abdominal pain, epigastric 01/07/2005 1 Abdominal pain, generalized 01/07/2005 03/03/2010 documented as of this encounter (statuses as of 07/22/2023) [facility] History of Past illness Narrative* [...] strain on 09/07/10 per ER note from [facility]. Personal history of tobacco use 03/03/2010 09/17/2011 Overview: Quit 02/2010 Tobacco use disorder 03/31/2009 010 Tonsillitis 03/31/2009 04/27/2011 Overview: Plans to have T&A now that has quit smoking. Backache, unspecified 05/26/20062011 Overview: Dr. Harrison; History scoliosis Hypertrophy of breast 01/07/20052010 Abdominal pain, epigastric 01/07/2005 1 Abdominal pain, generalized 01/07/2005 03/03/2010 documented as of this encounter (statuses as of 07/22/2023) [facility] Hern[facility] Alex [facility] Note Date/Time January 06, 2025 2: 43am [facility] Medical Records Department [address] [place] [address] Emergency Department Summary 01/06/25 MR#: [id number] Acct: [id number] Name: MARKUSDARIRACHAEL CELESTE Rep #:[id number] : 1990 34 From: Hernán Alex MD PCP: Dr. Steph Camacho MD Status:REG ER Location: ED HPI History of Present Illness Chief Complaint: Chest Pain Informant: patient and family Narrative Narrative: 34-year-old female states she has a history of heavy menstrual cycles and anemiasaying that she just recently had a cycle, she starting another episode of bleeding today which is not the right time, it is not heavy right now though, and she has had 2-3 days of chest tightness without dyspnea, lightheadedness, fatigue, some blurry vision at times, some headaches at times. She tells me that she feels it is related to her anemia. She has an appointment with an PROFESSOR OF MUSIC to be evaluated for hysterectomy. Her mother is here and tells me that she had the same issues and had a partial hysterectomy. The patient states she has never had a blood transfusion. She has iron deficiency, however she cannot tolerate oral iron pills because of severe constipation, however when it comes to parenteral iron, she had an infusion once and it was not recent. She is on no other treatments for anemia. [facility] Medical History Leg cramping Delayed gastric emptying [...] Obesity Scoliosis IBS (irritable bowel syndrome) Preeclampsia Home Medications ?Medication ?Instructions ?Recorded ?Last Taken ?Type ondansetron 4 mg disintegrating 4 mg PO Q6H PRN nausea and 07/10/24 Unknown Rx tablet vomiting #10 tabs desvenlafaxine succinate 50 mg 50 mg PO DAILY #90 tabs 08/22/24 Unknown Rx tablet,extended release 24 hr methocarbamol 500 mg tablet 500 mg PO TID PRN pain/spa sms #60 09/03/24 Unknown Rx tabs dulaglutide 0.75 mg/0.5 mL 0.75 mg subcut QWEEK Unknown [facility] omeprazole 40 mg capsule,delayed 40 mg PO BID #60 caps 09/17/24 Unknown Rx release megestrol 20 mg tablet 20 mg PO QDAY 30 days #30 ta bs 12/28/24 Unknown Rx Allergy/AdvReac Type Severity Reaction Status Date / Time amoxicillin (From Augmentin) AdvReac Mild Vomiting Verified 12/03/24 14:50 clavulanic acid (From AdvReac Mild Vomiting Verified 12/03/24 14:50 Augmentin) naproxen AdvReac Other Verified 12/03/24 14:50 varenicline tartrate (From AdvReac Other Verified 12/03/24 14:50 Chantix) Family History Mother Depression Aunt Breast cancer Grandmother Diabetes Uncle Hyperlipemia Menieres disease Depression Grandfather Heart disease Myocardial infarction CVA (cerebral vascular accident) Sister Crohn's disease half sister Down syndrome Aunt Multiple sclerosis Crohn's disease Father Rheumatoid arthritis Brain aneurysm CVA (cerebral vascular accident) Myocardial infarction Brother Bipolar 1 disorder Mentally disabled Other Hypertension Surgical History Status post tubal ligation Status post bilateral salpingectomy History of History of hip surgery H/O adenoidectomy delivery delivered S/P laparoscopic appendectomy (~05/06/18) S/P right knee arthroscopy History of tonsillectomy [...] additional social history: Single ROS ROS ED Constitutional Constitutional ED: Reports fatigue and malaise; Denies body ache(s), chills or fever(s) Eyes Eyes: Reports blurry vision; Denies diplopia ENT ENT ED: Denies rhinorrhea or sore throat Cardiovascular Cardiovascular: Reports as per HPI, chest pain, lightheadedness and racing heartbeat; Denies leg edema, radiating jaw, neck or arm pain or syncope Respiratory/Chest Respiratory/Chest: Denies cough or dyspnea Gastrointestinal Gastrointestinal: Denies abdominal pain, diarrhea, melena, nausea or vomiting Genitourinary Genitourinary ED: Reports vaginal bleeding; Denies dysuria or hematuria Musculoskeletal Musculoskeletal: Denies back pain or neck pain Integumentary Denies abscess or rash Neurologic Neurologic: Denies headache(s), paresthesias or weakness Psychiatric Psychiatric: Denies anxiety or suicidal thoughts EXAM Physical Exam Const Vital Signs: 01/05/25 23:27 01/05/25 23:34 01/06/25 00:00 Temperature 98.5 F Temperature Source Oral Pulse Rate 97 Pulse Rate [Lying] Pulse Rate [Sitting (for 1 minute prior to obtaining)] Pulse Rate [Standing (for 1 minute prior to obtaining)] Respiratory Rate 13 Respiratory Effort Normal Blood Pressure 119/70 Blood Pressure [Lying] Blood Pressure [Sitting (for 1 minute prior to obtaining)] Blood Pressure [Standing (for 1 minute prior to obtaining)] Blood Pressure Mean 86 Blood Pressure Mean [Lying] Blood Pressure Mean [Sitting (for 1 minute prior to obtaining)] Blood Pressure Mean [Standing (for 1 minute prior to obtaining)] Pulse Ox 100 Oxygen Delivery Method Room Air Room Air 01/06/25 00:26 01/06/25 01:26 01/06/25 01:56 Temperature Temperature Source Pulse Rate 93 113 H 86 Pulse Rate [Lying] Pulse Rate [Sitting (for 1 minute prior to obtaining)] Pulse Rate [Standing (for 1 minute prior to obtaining)] Respiratory Rate 18 21 H Respiratory Effort Blood Pressure 131/79 H Blood Pressure [Lying] Blood Pressure [Sitting (for 1 minute prior to obtaining)] Blood Pressure [Standing (for 1 minute prior to obtaining)] Blood Pressure Mean 96 Blood Pressure Mean [Lying] Blood Pressure Mean [Sitting (for 1 minute prior to obtaining)] Blood Pressure Mean [Standing (for 1 minute prior to obtaining)] Pulse Ox 99 99 99 Oxygen Delivery Method Room Air Room Air Room Air 01/06/25 02:00 01/06/25 02:02 01/06/25 02:09 Temperature Temperature Source Pulse Rate 89 91 Pulse Rate [Lying] 89 Pulse Rate [Sitting (for 1 minute prior to obtaining)] 88 Pulse Rate [Standing (for 1 minute prior to obtaining)] 102 H Respiratory Rate 19 H 16 Respiratory Effort Blood Pressure 107/63 Blood Pressure [Lying] 131/79 H Blood Pressure [Sitting (for 1 minute prior to obtaining)] 133/77 H Blood Pressure [Standing (for 1 minute prior to obtaining)] 127/81 H Blood Pressure Mean 77 Blood Pressure Mean [Lying] 96 Blood Pressure Mean [Sitting (for 1 minute prior to obtaining)] 95 Blood Pressure Mean [Standing (for 1 minute prior to obtaining)] 96 Pulse Ox 97 Oxygen Delivery Method Room Air Positive well nourished and well developed General Appearance ED: well developed and NAD HEENT Reports moist mucous membranes normocephalic and atraumatic Eyes PERRL and EOMs intact bilaterally Neck full ROM and supple Resp normal respiratory effort and clear to auscultation bilaterally Cardio regular rate, regular rhythm and no murmurs GI non-tender and non-distended Auscultation: normoactive bowel sounds Palpation: soft Speculum Exam - Vagina: vaginal bleeding Back/Spine no CVA tenderness General Back: other FROM Extremity normal to inspection General Extremety ED: Negative for edema, pulses abnormal or tenderness General Extremity: Negative for edema or pulses abnormal Neuro oriented x3, CN's II-XII intact bilaterally and no sensory deficits noted Sensorium / Orientation: awake and alert Motor Exam: strength 5/5 throughout Psych Mood & Affect: anxious Skin no rashes or lesions noted and no wounds MDM MDM MDM Narrative Medical decision making narrative: Patient's hemoglobin is 10.9. This is not far off from where she is at baseline. Given this, as I discussed with the patient my suspicion is that her symptoms are not related to her anemia since they are acute. We did a pregnancyit is negative she has had a tubal in the past. She has a normal EKG and 2 sequential normal/negative troponins, chest x-ray 1 view on my interpretation isnormal, and orthostatics are negative so I do not think she needs IV fluid she does maintain that she has been drinking plenty of fluids lately. As I discussed with her, it is possible that she has a virus that is causing her to feel poorly, especially given her lymphocytosis on her low total white blood count. She has no urinary symptoms, we discussed many possibilities and she does not have any of them and she has had UTIs in the past and has known when she has 1 because she has urinary symptoms. Therefore I do not think we need tocheck a urinalysis. She does have a history of exercise-induced asthma according to her, so I gave her an empiric albuterol nebulizer to see if that helped her chest tightness. It did not. She was amenable to trying a GI cocktail to treat possible esophageal etiologies, but did not want to wait to see if it helped and wanted to leave which I am fine with. She is planning on following up with her [employer] which I think is reasonable. Lab Data Attestation: I reviewed the patient's lab results. Labs: Laboratory Results - last 24 hr 01/05/25 01/06/25 23:50 01:51 WBC 4.5 RBC 3.72 L Hgb 10.9 L Hct 31.8 L MCV 85.5 MCH 29.3 MCHC 34.3 RDW Std Deviation 42.3 RDW Coeff of Ever 13.6 Plt Count 301 MPV 9.0 Immature Gran % (Auto) 0.200 Neut % (Auto) 41.9 L Lymph % (Auto) 48.0 H [place] % (Auto) 8.8 Eos % (Auto) 0.4 Baso % (Auto) 0.7 Absolute Neuts (auto) 1.9 L Absolute Lymphs (auto) 2.17 Nucleated RBC % 0 Sodium 142 Potassium 3.9 Chloride 105 Carbon Dioxide 27.1 Anion Gap 11 BUN 13 Creatinine 0.69 L Estim Creat Clear Calc 109.83 Est GFR (MDRD) Non-Af 117 BUN/Creatinine Ratio 18.5 Glucose 116 H Calcium 9.3 Troponin T High Sens < 6 Troponin T Hi Sens 2 Hr < 6 Serum , Qual NEGATIVE Radiography Diagnostic Testing: Clinical Impression(s) from Imaging Studies Chest X-Ray 01/06/25 00:07 IMPRESSION: No evidence for acute abnormality. Reading Location: [place] [address] Rhythm Strip Rhythm Strip: Sinus Rhythm Rate: 90 Ectopy: None EKG Initial EKG: Attestation: I personally reviewed and interpreted this EKG as follows: Interpretation: Sinus Rhythm and No Acute Injury Pattern Comments: Nml axis & intervals; nml EKG Discharge Plan Triage Chief Complaint: Chest Pain ED Provider: Hernán Alex Dx/Rx/DC Orders Clinical Impression: Chest tightness, Fatigue, Intermittent lightheadedness, Anemia, normocytic normochromic, Menorrhagia, Bleeding, uterine, dysfunctional Instructions: Anemia, ED Weakness Uncertain Cause Prescriptions: No Action Trulicity 0.75 mg/0.5 mL pen injector 0.75 mg subcut QWEEK omeprazole 40 mg capsule,delayed release(DR/EC) 40 mg PO BID Qty: 60 2RF desvenlafaxine succinate 50 mg tablet extended release 24 hr 50 mg PO DAILY Qty: 90 0RF methocarbamol 500 mg tablet 500 mg PO TID PRN (Reason: pain/spasms) Qty: 60 0RF ondansetron 4 mg tablet,disintegrating 4 mg PO Q6H PRN (Reason: nausea and vomiting) Qty: 10 0RF megestrol 20 mg tablet 20 mg PO QDAY 30 Days Qty: 30 0RF Primary Care Provider: Stpeh Camacho Referrals: Steph Camacho MD [Primary Care Provider] - 1 Week if not improving Print Language: Canadian Disposition Disposition: Home, Self Care What to do if you have Problems For any increased pain, shortness of breath, bleeding, nausea or vomiting, chestpain, or any unexpected problems, contact your Primary Care Provider. Call [facility] ([phone]) or report to the closest Emergency Room. Call 911 if necessary. 01/06/25 0243 <Electronically signed by Hernán Aelx MD> Cosigner Signature (if applicable): CC: Dr. Steph Camacho MD ~ Signed [facility] Work Phone: Evaluation + Plan note No data available for this section [facility] Evaluation + Plan note Future Appointments Appointment Date:12/26/2024 12:45:00 PM Scheduled Provider:BROOKLYNN MENENDEZ Location:[facility] Appointment Type:PM OV [facility] Evaluation + Plan note Future Appointments Appointment Date:02/06/2025 09:40:00 AM Scheduled Provider:BROOKLYNN MENENDEZ Location:[facility] Appointment Type: OV [facility] evaluation note* Diagnosis Onset Date Resolution Status Nipple pain acute Pelvic pain acute Vaginitis acute Generalized anxiety disorder chronic Pain in female pelvis noneac tive Anxiety and depression chron ic Obesity (BMI 30-39.9) chroni c BMI 35.0-35.9,adult acute Class II obesity acute Suspected COVID-19 virus infection acute Upper respiratory infection acute [facility] Work Phone: evaluation note* Diagnosis Onset Date Resolution Status Anxiety and depression chron ic Obesity (BMI 30-39.9) chroni c BMI 35.0-35.9,adult acute Class II obesity acute Suspected COVID-19 virus infection acute Upper respiratory infection acute [facility] Work Phone: evaluation note* Diagnosis Acute otitis media, right- Primary Unspecified otitis media [facility] Diagnosis Onset Date Resolution Status Chest congestion acute Cough acute Class II obesity acute [facility] Work Phone: Evaluation note* Diagnosis Onset Date Resolution Status Chest congestion acute Cough acute Class II obesity acute Class II obesity acute Encounter for routine gynecological examination noneactive [facility] Work Phone: evaluation note* Diagnosis Onset Date Resolution Status Chest congestion acute Cough acute Class II obesity acute Class II obesity acute Encounter for routine gynecological examination noneactive BMI 35.0-35.9,adult acute Class II obesity acute Insulin resistance acute Generalized anxiety disorder chronic Class II obesity acute [facility] Work Phone: evaluation note* Diagnosis Onset Date Resolution Status Class II obesity acute Class II obesity acute Encounter for routine gynecological examination noneactive BMI 35.0-35.9,adult acute Class II obesity acute Insulin resistance acute Generalized anxiety disorder chronic Class II obesity acute ASCUS with positive high risk HPV acute [facility] Work Phone: Evaluation note* Diagnosis Acute otitis media, bilateral- Primary Unspecified otitis media Rhinosinusitis Unspecified sinusitis (chronic) [facility] Diagnosis BMI 31.0-31.9,adult- Primary Class 1 obesity with serious comorbidity and body mass index (BMI) of 31.0 to 31.9 in adult, unspecified obesity type JAZZMINE (obstructive sleep apnea) Obstructive sleep apnea (adult) (pediatric) Insulin resistance Other abnormal glucose documented in this encounter [facility] note* Diagnosis Onset Date Resolution Status Contraceptive management acu te Depression acute Status post tubal ligation a [facility] Work Phone: Evaluation note* Diagnosis Diastasis recti- Primary Diastasis of muscle Localized adiposity [facility] Diagnosis Onset Date Resolution Status Status post tubal ligation a [facility] Work Phone: Evaluation note* Diagnosis Insulin resistance- Primary Other abnormal glucose BMI 30.0-30.9,adult Class 1 obesity without serious comorbidity with body mass index (BMI) of 30.0 to 30.9 in adult, unspecified obesity type [facility]* Diagnosis Abdominal pain, unspecified abdominal location- Primary documented in this encounter [facility] note* Diagnosis Onset Date Resolution Status Left knee pain acute Right knee pain acute [facility] Work Phone: Evaluation note* Diagnosis Insulin resistance- Primary Other abnormal glucose BMI 30.0-30.9,adult Class 1 obesity without serious comorbidity with body mass index (BMI) of 30.0 to 30.9 in adult, unspecified obesity type documented in this encounter [facility]* Diagnosis Insulin resistance Other abnormal glucose [facility]* Diagnosis Insulin resistance- Primary Other abnormal glucose BMI 28.0-28.9,adult Overweight (BMI 25.0-29.9) Overweight documented in this encounter [facility]* Diagnosis Insulin resistance- Primary Other abnormal glucose BMI 28.0-28.9,adult Overweight (BMI 25.0-29.9) Overweight documented in this encounter [facility]* Diagnosis Onset Date Resolution Status Effusion, left knee acute Left knee pain acute Acute sinusitis acute Vulvodynia acute [facility] Work Phone: Evaluation note* Diagnosis Insulin resistance- Primary Other abnormal glucose BMI 27.0-27.9,adult Overweight (BMI 25.0-29.9) Overweight documented in this encounter [facility] note* Diagnosis Onset Date Resolution Status Vulvodynia acute Possible exposure to STD non eactive Vulvovaginitis noneactive [facility] Work Phone: Evaluation note* Diagnosis Insulin resistance- Primary Other abnormal glucose BMI 25.0-25.9,adult Overweight (BMI 25.0-29.9) Overweight documented in this encounter [facility] note* Diagnosis Onset Date Resolution Status Vulvodynia acute Possible exposure to STD non eactive Vulvovaginitis noneactive Encounter for routine gynecological examination noneactive [facility] Work Phone: Evaluation note* Diagnosis Acne vulgaris- Primary Other acne Post-inflammatory hyperpigmentation Dyschromia, unspecified Generalized hyperhidrosis documented in this encounter [facility] note* Diagnosis Chronic maxillary sinusitis- Primary Chronic migraine without aura without status migrainosus, not intractable Non-seasonal allergic rhinitis, unspecified trigger documented in this encounter [facility] note* Diagnosis Overweight (BMI 25.0-29.9)- Primary Overweight Insulin resistance Other abnormal glucose BMI 26.0-26.9,adult documented in this encounter [facility] note* Diagnosis Insulin resistance Other abnormal glucose documented in this encounter [facility] note* Diagnosis Insulin resistance- Primary Other abnormal glucose BMI 26.0-26.9,adult Overweight (BMI 25.0-29.9) Overweight documented in this encounter [facility] note* Diagnosis Insulin resistance Other abnormal glucose documented in this encounter [facility] note* Diagnosis Acute cough- Primary Exacerbation of asthma, unspecified asthma severity, unspecified whether persistent Rhinosinusitis Unspecified sinusitis (chronic) Acute cough documented in this encounter [facility] note* Diagnosis Acute cough documented in this encounter [facility] note* Diagnosis Constipation, unspecified constipation type- Primary documented in this encounter [facility] note* Diagnosis Insulin resistance- Primary Other abnormal glucose BMI 30.0-30.9,adult Class 1 obesity due to excess calories with serious comorbidity and body mass index (BMI) of 30.0 to 30.9 in adult [facility]* Diagnosis Lower resp. tract infection- Primary Other diseases of respiratory system, not elsewhere classified [facility]* Diagnosis Generalized weakness- Primary Other malaise and fatigue documented in this encounter [facility] note* Diagnosis Insulin resistance- Primary Other abnormal glucose BMI 30.0-30.9,adult Class 1 obesity due to excess calories with serious comorbidity and body mass index (BMI) of 30.0 to 30.9 in adult [facility]* Diagnosis Insulin resistance- Primary Other abnormal glucose BMI 31.0-31.9,adult Class 1 obesity due to excess calories with serious comorbidity and body mass index (BMI) of 31.0 to 31.9 in adult [facility]* Diagnosis Insulin resistance- Primary Other abnormal glucose BMI 31.0-31.9,adult Class 1 obesity due to excess calories with serious comorbidity and body mass index (BMI) of 31.0 to 31.9 in adult documented in this encounter [facility] note* Diagnosis Pain in joint, multiple sites- Primary Tear of right acetabular labrum, sequela Lumbar herniated disc Displacement of lumbar intervertebral disc without myelopathy Family history of autoimmune disorder Family history of other condition [facility]* Diagnosis Pain in joint, multiple sites documented [facility] encounter [facility] Author Es Villarreal [facility] Note Date/Time March 13, 2025 1 2:49pm [facility] [address], [address] [place] [address] OFFICE VISIT Date of Service: 03/13/25 MR#: [id number] Acct: [id number] Name: DARI APARICIO Rep #: [id number] : 1990 Provider: Dr. 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 Is patient in pain?: No Allergies megestrol (From Megace) Adverse Reaction (Intermediate, Verified 03/13/25 10:56) chest pain amoxicillin (From Augmentin) Adverse Reaction (Mild, Verified 03/13/25 10:56) Vomiting clavulanic acid (From Augmentin) Adverse Reaction (Mild, Verified 03/13/25 10:56) Vomiting naproxen Adverse Reaction (Verified 03/13/25 10:56) Other varenicline tartrate (From Chantix) Adverse Reaction (Verified 03/13/25 10:56) Other Medications ?Medication ?Instructions ?Recorded ?Confirmed ?Type desvenlafaxine succinate 50 mg 50 mg PO DAILY #90 tabs 08/22/24 03/13/25 Rx tablet,extended release 24 hr polyethylene glycol 3350 17 4 g PO QODAY 01/11/2502/21 History gram/dose oral powder (Miralax) ondansetron 4 mg disintegrating 4 mg PO Q6H PRN nausea and 02/11/25 03/13/25 Rx tablet vomiting #30 tabs medroxyprogesterone 5 mg tablet 5 mg PO QDAY 60 days # 60 tabs 02/13/25 03/13/25 Rx albuterol sulfate 2.5 mg/3 mL 1 mg inhalation Q4H PRN PRN 03/07/25 03/13/25 History (0.083 %) solution for nebulization wheezing albuterol sulfate 90 mcg/actuation 2 puff inhalation Q 4H PRN PRN 03/07/25 03/13/25 History aerosol inhaler wheezing dulaglutide 3 mg/0.5 mL 3 mg subcut QWEEK 03/07/25 1 History subcutaneous pen injector (Trulicity) omeprazole 40 mg capsule,delayed 20 mg PO BID 03/07/25 03/13/25 History release Post menopausal: No Patient : No : No PFSH Medical History Delayed gastric emptying Anxiety Arthritis High cholesterol Former smoker 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 Leg cramping Positive TB test History of gestational diabetes Maxillary sinusitis Effusion, left knee PTSD (post-traumatic [...] syndrome) Chronic back pain Preeclampsia Surgical History History of esophagogastroduodenoscopy (EGD) Status post tubal ligation Status post bilateral salpingectomy History of History of hip surgery H/O adenoidectomy delivery delivered S/P laparoscopic appendectomy (~05/06/18) S/P right knee arthroscopy History of tonsillectomy [...] home: Yes additional social history: Single HPI TRH cysto Details: DAIR APARICIO is a 34 year old ( sections) who presents for preop exam for a scheduled hysterectomy. She has been bleeding on and off heavily for several weeks. She continues to use a low dose progesterone to keep menses lightuntil surgery. Ultrasound shows the following: FINDINGS: LMP: December 18, 2024 Measurements: Uterus: 7.9 cm x 5.6 cm x 3.8 cm with a volume of 89.7 mL Endometrial Thickness: 10.2 mm. It is trilaminar. Right Ovary: 4.5 cm x 3.8 cm x 3.2 cm with a volume of 27.87 mL. Left Ovary: 3 cm x 2 cm x 1.7 cm with a volume of 5.26 mL. TRANSABDOMINAL: Uterus: Heterogeneous appearance of the myometrium suggestive of fibroid change. In the lower uterine segment, there is a 4 mm x 5 mm x 3 mm isoechoic density with fluid. This may represent the degenerating fibroid. Endometrium: Unremarkable. Right ovary: 3.6 cm 3.5 cm 2.6 cm cyst. Left ovary: Normal size and echotexture. Other: No large pelvic mass identified. Transvaginal sonography was performed to better visualize the endometrium. TRANSVAGINAL: Uterus: Anteverted. Heterogeneous appearance suggestive of fibroid change. Questionable tiny fibroid in the lower uterine segment. Nabothian cyst. Endometrium: Normal echotexture. Right ovary: 3.6 cm 3.5 cm 2.6 cm cyst. Left ovary: Normal size and echotexture. Other adnexal findings: None. Cul-de-sac: No free intraperitoneal fluid identified. Tenderness: No tenderness History 3 Elective abortions Hx Para 2 Spontaneous abortions Hx # Term Pregnancies 2 Ectopic pregnancies Hx # Pregnancies 1 Multiple births # of living children 2 Past Pregnancies Del. Date Name GA/Weeks Outcome Route Bth Weight Infant Gen Labor Lgth Anesthesia Del Locatn Provider FOB 04/19/12 Kika 39 live - full term Female [facility] [place] 11/20/18 Eliezer spontaneous Female 02/12/20 Mo 39 live - full term 7lbs 15oz Male spinal [facility] GP Delivery Date: 02/12/20 Last Updated by: Renea Cordero GDM ROS Const ROS Unobtainable: All systems reviewed & are unremarkable except as noted in H Resp Resp: Reports system reviewed and no additional complaints, except as documented; Denies cough GI GI: Reports as per HPI Psych Psych: Reports system reviewed and no additional complaints, except as documented Exam Const General: cooperative, healthy appearing, comfortable and no acute distress Resp Effort & Inspection: normal respiratory effort Skin General: no rashes or lesions noted Psych Appearance: grossly normal Speech and Movement: speech and movement normal Coding Level of Care Code Off vis,est,level 4 Diagnoses Abnormal uterine bleeding N93.9 Assessment and Plan Assessment and Plan (1) Abnormal uterine bleeding: Status: Resolved Comment: lysteda Plan: After discussing the patient's diagnosis and treatment plan options, patient wishes to proceed with surgical management. I have discussed with the patient the risks, benefits, and alternatives of the procedure which include but are notlimited to risks of anesthesia, bleeding, infection, possible damage to bowel, bladder, or surrounding vasculature which could lead to additional surgery to evaluate any complications. Patient agrees to procedure and wishes to proceed. ACOG/uptodate references given for additional information regarding procedure. plan is for total robotic hysterectomy, cystoscopy 03/13/25 1313 <Electronically signed by Es Whitaker DO> Date _ Es Cline DO Cosigner Signature: Date (if applicable) CC: ~ [facility] Work Phone: Reason for referral (narrative)No reason for referral information availableWCleveland Clinic [facility] Work Phone: Reason for visit Narrative* Diagnostic Procedure Only (Routine) - Closed Specialty Diagnoses / Procedures Referred By Contac t Referred To Contact XR IMAGING Diagnoses Pain in joint, multiple sites Procedures XR SACROILIAC JOINTS 2V AP PELVIS/FERGUESON RADIOLOGIC EXAMINATION SACROILIAC JNTS <3 VIEWS [place] [place], [address] [place] [address] Phone: tel: fax: [place] [phone] Referral ID Status Reason Start Date Expiration Date V isits Requested Visits Authorized [id number] Closed Auto-Generate d Referral 01/18/2025 02/17/2026 1 1 [facility] Summary Purpose Family History Relationship Condition Age at Onset Recorded Date/T [...] disorder Unknown Intellectual disability Unknown Advance Directives Advance Directive Response Recorded Date/ Time Advance Directives No March 10:08am Living Will No April 01 10:08am Power of Tribunal Member No April 01, 2021 10:08am Advance Directive Response Recorded Date/ Time Advance Directives No March 10:08am Living Will No November 15, 2021 6:42pm Power of Tribunal Member No November 15 6:42pm Advance Directive Response Recorded Date/ Time Advance Directives No March 9:08am Living Will No November 15, 2021 5:42pm Power of Tribunal Member No November 15 5:42pm Advance Directive Response Recorded Date/ Time Advance Directives No March 10:08am Living Will No August 31, 2022 9:56am Power of Tribunal Member No August 31 9:56am Advance Directive Response Recorded Date/ Time Advance Directives No March 10:08am Living Will No January 12 9:58am Power of Tribunal Member No January 12 9:58am Advance Directive Response Recorded Date/ Time Advance Directives No March 9:08am Living Will No January 12 8:58am Power of Tribunal Member No January 12 8:58am Advance Directive Response Recorded Date/ Time Advance Directives No May 24, 2023 11:31am Living Will No May 24 11:31am Power of Tribunal Member No May 24 11:31am Advance Directive Response Recorded Date/ Time Living Will No November 28, 2023 9 :58pm Do you have a Healthcare Power of Tribunal Member? No November 28, 2023 9:58pm Living Will No July 10, 025 2:20pm Do you have a Healthcare Power of Tribunal Member? No July 10, 2024 2:20pm Advance Directives No March 30, 2024 8:43am Advance Directive Response Recorded Date/ Time Advance Directives No October 08 9:07am Living Will No July 10 025 2:20pm Do you have a Healthcare Power of Tribunal Member? No July 10, 2024 2:20pm Advance Directive Response Recorded Date/ Time Advance Directives No October 08 9:07am Advance Directive Response Recorded Date/ Time Advance Directives No October 08 9:07am Do you have a Healthcare Power of Tribunal Member? No January 05, 2025 11:34pm Advance Directive Response Recorded Date/ Time Do you have a Healthcare Power of Tribunal Member? No January 05, 2025 11:34pm Advance Directives No October 08 9:07am Advance Directive Response Recorded Date/ Time Do you have a Healthcare Power of Tribunal Member? No January 05, 2025 10:34pm Do you have a Healthcare Power of Tribunal Member? 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) Transfer of Care 4 wk FU Reason for Visit Chest congestion Cough Class II obesity Class II obesity Encounter for routine gynecological examination BMI 35.0-35.9,adult Class II obesity Insulin resistance Generalized anxiety disorder Class II obesity Chief Complaint weight management co nsult E-ORDER 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) Transfer of Care 4 wk FU Colposcopy [...] vaginal labial burning, diflucan not helping 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) Reason for Visit Vulvodynia Possible exposure to [...] 12:10pm CONCERN FOR SINUS INFECTION July 28, 2 025 10:17am ACUTE - SEVERE SCIATICA August 22, 2024 2:44pm chronic back pain August 24, 2024 9:30 am LUMBAR SPINE September 03, 2024 9:1 6am Room 2 September 03, 2024 10: 19am 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 September 17, 2024 10 :16am 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) September 25, 2024 8:27am Pain,,retirement October 06, 2024 10:26 am LUMBAR SPINE [...] Room 2 September 03, 2024 10: 19am 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 September 17, 2024 10 :16am 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) September 25, 2024 8:27am Pain,,retirement October 06, 2024 10:26 am LUMBAR SPINE [...] Vaginal odor December 03, 2024 2:42 pm Chief Complaint Admit Date 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 September 17, 2024 10 :16am 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) September 25, 2024 8:27am Pain,,retirement October 06, 2024 10:26 am LUMBAR SPINE October 09, 2024 8:09a m Possible BV December 03, 2024 2:42 pm INT LAB ORDERS January 04, 2025 3: 30pm chest pain January 05, 2025 11 :26pm Reason for Visit Admit Date Depression September 17, 2024 10: 16am IBS [...] Vaginal odor December 03, 2024 2:42 pm Chief Complaint Admit Date 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 September 17, 2024 10 :16am 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) September 25, 2024 8:27am Pain,,retirement October 06, 2024 10:26 am LUMBAR SPINE October 09, 2024 8:09a m Possible BV December 03, 2024 2:42 pm INT LAB ORDERS January 04, 2025 3: 30pm chest pain January 05, 2025 11 :26pm AUB per JV January 11, 2025 2: 25pm Reason for Visit Admit Date Depression September 17, 2024 10: 16am IBS [...] Vaginal odor December 03, 2024 2:42 pm Anemia, normocytic normochromic December 222024 2:25pm Bleeding, uterine, dysfunctional January 11, 2025 2:25pm Fatigue January 11, 2025 2: 25pm Intermittent lightheadedness December 2:25pm Menorrhagia January 11, 2025 2: 25pm Chief Complaint Admit Date 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) September 25, 2024 8:27am Pain,,retirement October 06, 2024 10:26 am LUMBAR SPINE October 09, 2024 8:09a m Possible BV December 03, 2024 2:42 pm INT LAB ORDERS January 04, 2025 3: 30pm chest pain January 05, 2025 11 :26pm AUB per JV January 11, 2025 2: 25pm Reason for Visit Admit Date Encounter for routine gynecological exam ination September 25, 2024 8:27am Lumbar radiculopathy October 09, 2024 8:09 am Vaginal discharge December 03, 2024 2:42 pm Vaginal odor December 03, 2024 2:42 pm Anemia, normocytic normochromic December 222024 2:25pm Bleeding, uterine, dysfunctional January 11, 2025 2:25pm Fatigue January 11, 2025 2: 25pm Intermittent lightheadedness December 2:25pm Menorrhagia January 11, 2025 2: 25pm Chief Complaint Admit Date Pain,,retirement October 06, 2024 10:26 am LUMBAR SPINE October 09, 2024 8:09a m Possible BV December 03, 2024 2:42 pm INT LAB ORDERS January 04, 2025 3: 30pm chest pain January 05, 2025 11 :26pm AUB per JV January 11, 2025 2: 25pm MENORRHAGIA January 23, 2025 12:47pm 300MG VENOFER January 25, 2025 10:52am Reason for Visit Admit Date Lumbar radiculopathy October 09, 2024 8:09 am Vaginal discharge December 03, 2024 2:42 pm Vaginal odor December 03, 2024 2:42 pm Anemia, normocytic normochromic December 222024 2:25pm Bleeding, uterine, dysfunctional January 11, 2025 2:25pm Fatigue January 11, 2025 2: 25pm Intermittent lightheadedness December 2:25pm Menorrhagia January 11, 2025 2: 25pm Chief Complaint Admit Date Pain,,retirement October 06, 2024 10:26 am LUMBAR SPINE October 09, 2024 8:09a m Possible BV December 03, 2024 2:42 pm INT LAB ORDERS January 04, 2025 3: 30pm chest pain January 05, 2025 11 :26pm AUB per JV January 11, 2025 2: 25pm MENORRHAGIA January 23, 2025 12:47pm 300MG VENOFER January 25, 2025 10:52am 300MG VENOFER January 31, 2025 11:18am Chief Complaint Admit Date Possible BV December 03, 2024 2:42 pm INT LAB ORDERS January 04, 2025 3: 30pm chest pain January 05, 2025 11 :26pm AUB per JV January 11, 2025 2: 25pm MENORRHAGIA January 23, 2025 12:47pm 300MG VENOFER January 25, 2025 10:52am 300MG VENOFER January 31, 2025 11:18am 300MG VENOFER February 08, 2025 9:24am 3wk FU US Results February 11, 2025 1:21pm INT LAB ORDER February 11, 2025 2:22pm Reason for Visit Admit Date Vaginal discharge December 03, 2024 2:42 pm Vaginal odor December 03, 2024 2:42 pm Anemia, normocytic normochromic December 222024 2:25pm Bleeding, uterine, dysfunctional January 11, 2025 2:25pm Fatigue January 11, 2025 2: 25pm Intermittent lightheadedness December 2:25pm Menorrhagia January 11, 2025 2: 25pm Irregular periods February 11, 2025 1:21pm Chief Complaint Admit Date Possible BV December 03, 2024 2:42 pm INT LAB ORDERS January 04, 2025 3: 30pm chest pain January 05, 2025 11 :26pm AUB per JV January 11, 2025 2: 25pm MENORRHAGIA January 23, 2025 12:47pm 300MG VENOFER January 25, 2025 10:52am 300MG VENOFER January 31, 2025 11:18am 300MG VENOFER February 08, 2025 9:24am 3wk FU US Results February 11, 2025 1:21pm INT LAB ORDER February 11, 2025 2:22pm CONCERN FOR SINUS INFECTION February 21, 2025 9:12am Reason for Visit Admit Date Vaginal discharge December 03, 2024 2:42 pm Vaginal odor December 03, 2024 2:42 pm Anemia, normocytic normochromic December 222024 2:25pm Bleeding, uterine, dysfunctional January 11, 2025 2:25pm Fatigue January 11, 2025 2: 25pm Intermittent lightheadedness December 2:25pm Menorrhagia January 11, 2025 2: 25pm Irregular periods Mylene 22nd, 2025 1:21pm Acute sinusitis February 21, 2025 9: 12am Chief Complaint Admit Date INT LAB ORDERS January 04, 2025 3: 30pm chest pain January 05, 2025 11 :26pm AUB per JV January 11, 2025 2: 25pm MENORRHAGIA January 23, 2025 12:47pm 300MG VENOFER January 25, 2025 10:52am 300MG VENOFER January 31, 2025 11:18am 300MG VENOFER February 08, 2025 9:24am 3wk FU US Results February 11, 2025 1:21pm INT LAB ORDER February 11, 2025 2:22pm CONCERN FOR SINUS INFECTION February 21, 2025 9:12am TRH cysto March 13, 2025 1 0:50am Lap Total Robotic Hysterectomy, Cystosco py March 19, 2025 8:45am Lap Total Robotic Hysterectomy, Cystosco py March 19, 2025 10:18am Reason for Visit Admit Date Anemia, normocytic normochromic December 222024 2:25pm Bleeding, uterine, dysfunctional January 11, 2025 2:25pm Fatigue January 11, 2025 2: 25pm Intermittent lightheadedness December 2:25pm Menorrhagia January 11, 2025 2: 25pm Irregular periods February 11, 2025 1:21pm Acute sinusitis February 21, 2025 9: 12am Abnormal uterine bleeding March 13, 2025 10:50am Reason for Referral Specialty Diagnoses / Procedures Referred By Walter samaniego Referred To Contact Radiology Diagnoses Chronic maxillary sinusitis Procedures CT Sinus Stealth Without Contrast Ajay Nguyễn MD [address] [place] [address] Referral ID Status Reason Start Date Expiration Date V isits Requested Visits Authorized [id number] Pending Review 08/09/2023 08/08/2024 1 1 Additional Source Comments INFORMATION SOURCE (unrecogn ized section and content) DATE CREATED AUTHOR 02/12/2020 [facility] DATE CREATED AUTHOR AUTHOR'S ORGANIZ ATION 03/26/2021 [facility] [employer] DATE CREATED AUTHOR AUTHOR'S ORGANIZ ATION 08/20/2021 [facility] DATE CREATED AUTHOR AUTHOR'S ORGANIZ ATION 08/10/2023 [facility] DATE CREATED AUTHOR AUTHOR'S ORGANIZ ATION 01/20/2025 [facility] DATE CREATED AUTHOR AUTHOR'S ORGANIZ ATION 01/27/2025 [facility] DATE CREATED AUTHOR AUTHOR'S ORGANIZ ATION 02/05/[address] [facility] DATE CREATED AUTHOR AUTHOR'S ORGANIZ ATION 02/27/2025 [facility] DATE CREATED AUTHOR AUTHOR'S ORGANIZ ATION 04/02/2025 [facility] y Hospital Goals (unrecognized section and content) Type Care Experience c section/history of FTP Care Experience RLTCS and ovarian cy stectomy[facility] 02/11 with GPBreastfeeding: trying to breast feed, but unsure with prior breast reductionPPBC - OCPs Source Comments (unrecognize d section and content) In the event this informatio n is protected by the Federal Confidentiality of Alcohol and Drug Abuse Patient Records regulations: The Federal rules restrict any use of the information to criminally investigate or prosecute any alcohol or drug abuse patient.[facility] Center[facility] the event this information is protected by the Federal Confidentiality of Alcohol and Drug Abuse Patient Records regulations: The Federal rules restrict any use of the information to criminally investigate or prosecute any alcohol or drug abuse patient.[facility] CenterIn the event this information is protected by the Federal Confidentiality of Alcohol and Drug Abuse Patient Records regulations: The Federal rules restrict any use of the information to criminally investigate or prosecute any alcohol or drug abuse patient.[facility] CenterIn the event this information is protected by the Federal Confidentiality of Alcohol and Drug Abuse Patient Records regulations: The Federal rules restrict any use of the information to criminally investigate or prosecute any alcohol or drug abuse patient.[facility] CenterIn the event this information is protected by the Federal Confidentiality of Alcohol and Drug Abuse Patient Records regulations: The Federal rules restrict any use of the information to criminally investigate or prosecute any alcohol or drug abuse patient.[facility] CenterIn the event this information is protected by the Federal Confidentiality of Alcohol and Drug Abuse Patient Records regulations: The Federal rules restrict any use of the information to criminally investigate or prosecute any alcohol or drug abuse patient.[facility] CenterIn the event this information is protected by the Federal Confidentiality of Alcohol and Drug Abuse Patient Records regulations: The Federal rules restrict any use of the information to criminally investigate or prosecute any alcohol or drug abuse patient.[facility] CenterIn the event this information is protected by the Federal Confidentiality of Alcohol and Drug Abuse Patient Records regulations: The Federal rules restrict any use of the information to criminally investigate or prosecute any alcohol or drug abuse patient.[facility] CenterIn the event this information is protected by the Federal Confidentiality of Alcohol and Drug Abuse Patient Records regulations: The Federal rules restrict any use of the information to criminally investigate or prosecute any alcohol or drug abuse patient.[facility] CenterIn the event this information is protected by the Federal Confidentiality of Alcohol and Drug Abuse Patient Records regulations: The Federal rules restrict any use of the information to criminally investigate or prosecute any alcohol or drug abuse patient.[facility] CenterIn the event this information is protected by the Federal Confidentiality of Alcohol and Drug Abuse Patient Records regulations: The Federal rules restrict any use of the information to criminally investigate or prosecute any alcohol or drug abuse patient.[facility] CenterIn the event this information is protected by the Federal Confidentiality of Alcohol and Drug Abuse Patient Records regulations: The Federal rules restrict any use of the information to criminally investigate or prosecute any alcohol or drug abuse patient.[facility] CenterIn the event this information is protected by the Federal Confidentiality of Alcohol and Drug Abuse Patient Records regulations: The Federal rules restrict any use of the information to criminally investigate or prosecute any alcohol or drug abuse patient.[facility] CenterIn the event this information is protected by the Federal Confidentiality of Alcohol and Drug Abuse Patient Records regulations: The Federal rules restrict any use of the information to criminally investigate or prosecute any alcohol or drug abuse patient.[facility] CenterIn the event this information is protected by the Federal Confidentiality of Alcohol and Drug Abuse Patient Records regulations: The Federal rules restrict any use of the information to criminally investigate or prosecute any alcohol or drug abuse patient.[facility] CenterIn the event this information is protected by the Federal Confidentiality of Alcohol and Drug Abuse Patient Records regulations: The Federal rules restrict any use of the information to criminally investigate or prosecute any alcohol or drug abuse patient.[facility] CenterIn the event this information is protected by the Federal Confidentiality of Alcohol and Drug Abuse Patient Records regulations: The Federal rules restrict any use of the information to criminally investigate or prosecute any alcohol or drug abuse patient.[facility] CenterIn the event this information is protected by the Federal Confidentiality of Alcohol and Drug Abuse Patient Records regulations: The Federal rules restrict any use of the information to criminally investigate or prosecute any alcohol or drug abuse patient.[facility] CenterIn the event this information is protected by the Federal Confidentiality of Alcohol and Drug Abuse Patient Records regulations: The Federal rules restrict any use of the information to criminally investigate or prosecute any alcohol or drug abuse patient.[facility] Reason for Visit (unrecogniz ed [...] #13 Reason Comments Weight Loss NSURG #14 Reason Comments New Patient Evaluation Reason Comments Weight Management Nsurg #5 Care Teams (unrecognized sec tion and content) Editor Producer Relationship Specialty Start Date End Date Juan Alfaro MD [address] [place], [place] [id number] PCP - General Internal Medicine 01/11/22 Team Status: Active Member Role Status Dates Dr. Juan Alfaro MD Primary Care Provider Active Team Status: Inactive Member Role Status Dates Dr. Juan Alfaro MD Primary Care Provider, Refer ring Provider Active Dr. Es Cline DO Attending Provider Activ e Team Status: Inactive Member Role Status Dates Dr. Juan Alfaro MD Primary Care P rovider, Attending Provider, Referring Provider Active Team Status: Inactive Member Role Status Dates Dr. Juan Alfaro MD Primary Care Provider Active Dr. Es Cline DO Attending Provider, Refe rring Provider Active Team Status: Inactive Member Role Status Dates Dr. Juan Alfaro MD Primary Care Provider Active Dr. Es Cline DO Attending Provider Activ e Team Status: Active Member Role Status Dates Dr. Krista Parker MD Primary Care Provider Active Team Status: Inactive Member Role Status Dates Dr. Juan Alfaro MD Referring Provider Active Dr. Es Cline DO Attending Provider Activ e Dr. Krista Parker MD Primary Care Provider Active Team Status: Inactive Member Role Status Dates Dr. Juan Alfaro MD Primary Care Provider Active Dr. [...] DO Attending Provider, Refe rring Provider Active Editor Producer Relationship Specialty Start Date End Date Jacqueline Cordova, DO [address] [place], [place] [id number] PCP - General Family Medicine 08/17/22 Editor Producer Relationship Specialty Start Date End Date Vladislav Alfaroongbe B [address] [place], [place] [id number] PCP - General 03/25/21 Team Status: Active Member Role Status Dates Jacqueline Cordova , Primary Care Provider Active Team Status: Inactive Member Role Status Dates Dr. Krista Parker MD Referring Provider Active Dr. Es Cline , Attending Provider Activ e Jacqueline Cordova , DO Primary Care Provider Active Team Status: Inactive Member Role Status Dates Dr. Krista Parker MD Primary Care Provider, Referri ng Provider Active Dr. Es Cline , DO Attending Provider Activ e Team Status: Active Member Role Status Dates Dr. Es Cline DO Attending Provider, Referring Provider, Other Provider Active Jacqueline Cordova , Primary Care Provider Active Team Status: Inactive Member Role Status Dates Dr. Es Cline DO Attending Provider, Refe rring Provider Active Jacqueline Cordova DO Primary Care Provider Active Team Status: Inactive Member Role Status Dates Jacqueline Cordova , Primary Care Provi jourdan, Attending Provider, Referring Provider Active Editor Producer Relationship Specialty Start Date End Date Jacqueline Cordova DO [address] [facility] [address] [place] [address] PCP - General Family Medicine 08/17/22 Editor Producer Relationship Specialty Start Date End Date Jacqueline Cordova DO [address] [facility] [address] [place] [address] PCP - General Family Medicine 08/17/22 Editor Producer Relationship Specialty Start Date End Date Darenklebere Vladislavongbe B [address] [place] [address] PCP - General 03/25/21 Editor Producer Relationship Specialty Start Date End Date Oleklebere, Vladislavongbe B PCP - General 03/25/21 Team Status: Inactive Member Role Status Dates Jacqueline Cordova DO Primary Care Provider, Referring Provider Active Hai Sanchez MD Attending Provider Active Team Status: Inactive Member Role Status Dates Jacqueline Cordova , Primary Care Provider Active Dr. Que Virgen MD Attending Provider Active Team Status: Inactive Member Role Status Dates Jacqueline Cordova DO Primary Care Provider Active Dr. Oracio Johnson MD Emergency Provider Active Team Status: Inactive Member Role Status Dates Jacqueline Cordova DO Primary Care Provider Active Hai Sanchez MD Attending Provider, Referring Prov ider Active Editor Producer Relationship Specialty Start Date End Date Jatin Alfarobe B PCP - General 03/25/21 Editor Producer Relationship Specialty Start Date End Date Jatin Alfarobe B PCP - General 03/25/21 Editor Producer Relationship Specialty Start Date End Date OleklebereVladislavongbe B PCP - General 03/25/21 Editor Producer Relationship Specialty Start Date End Date OleJatin lucasbe B [address] [facility] [address] [place] [id number] PCP - General 03/25/21 Team Status: Inactive Member Role Status Dates Jacqueline Cordova DO Primary Care Provider, Referring Provider Active CAROLYN Prather Attending Provider Active Team Status: Inactive Member Role Status Dates Jacqueline Cordova DO Primary Care Provider, Referring Provider Active Yessi Koo CNM Attending Provider Active Team Status: Inactive Member Role Status Dates Jacqueline Cordova DO Primary Care Provider Active Dr. Oracio Johnson MD Attending Provider, Emergency Provider Active Team Status: Active Member Role Status Dates Jacqueline Cordova DO Primary Care Provider Active Yessi Koo CNM Attending Provider, Referring Pro vider Active Team Status: Inactive Member Role Status Dates Jacqueline Cordova , DO Primary Care Provider Active Yessi Koo CNM Attending Provider, Referring Pro vider Active Editor Producer Relationship Specialty Start Date End Date Jatin Alfarogarry Azucena [address] [facility] [address] [place] [address] PCP - General 03/25/21 Team Status: Inactive Member Role Status Dates Jacqueline Cordova , DO Primary Care Provider, Referring Provider Active Everette Felder PA, PA Attending Provider Active Team Status: Inactive Member Role Status Dates Jacqueline Cordova , DO Primary Care Provider, Referring Provider Active Afsaneh Snow 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, 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-C Attending Provider Active Team Status: Inactive Member Role Status Dates Jacqueline Cordova , DO Primary Care Provider Active Afsaneh Snow 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, 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-C Attending Provider Active Team Status: Inactive Member Role Status Dates Jacqueline Cordova , Primary Care Provider, Referring Provider Active Dr. Es Cline , DO Attending Provider Activ e Team Status: Inactive Member Role Status Dates Jacqueline Cordova , Primary Care Provider Active Dr. Es Cline , DO Attending Provider Activ e Team Status: Inactive Member Role Status Dates Jacqueline Cordova , Primary Care Provider Active Dr. Es Cline , DO Attending Provider, Refe rring Provider Active Editor Producer Relationship Specialty Start Date End Date Jacqueline Cordova DO [address] [facility] [facility] [address] [place] [address] PCP - General Family Medicine 08/17/22 Editor Producer Relationship Specialty Start Date End Date Jacqueline Cordova DO [address] [facility] [facility] [address] [place] [address] PCP - General Family Medicine 08/17/22 Editor Producer Relationship Specialty Start Date End Date System, Provider Not In PCP - General 07/08/23 Editor Producer Relationship Specialty Start Date End Date Juan Alfaro [address] [place] [address] PCP - General 03/25/21 Editor Producer Relationship Specialty Start Date End Date Juan Alfaro [address] [facility] [address] [place] [address] PCP - General 03/25/21 Editor Producer Relationship Specialty Start Date End Date Juan Alfaro [address] [facility] [address] [place] [address] PCP - General 03/25/21 Editor Producer Relationship Specialty Start Date End Date Juan Alfaro [address] [facility] [address] [place] [address] PCP - General 03/25/21 Editor Producer Relationship Specialty Start Date End Date Juan Alfaro [address] [facility] [address] [place] [address] PCP - General 03/25/21 Editor Producer Relationship Specialty Start Date End Date Renea Bassett LIFE ASSURANCE REPRESENTATIVE.[facility] [address] [place] [address] [place] [address] PCP - General Cardiology 03/30/24 Editor Producer Relationship Specialty Start Date End Date Juan Alfaro [address] [place] [address] PCP - General 03/25/21 Editor Producer Relationship Specialty Start Date End Date Renea Bassett LIFE ASSURANCE REPRESENTATIVE.[employer] [address] [place], [place] [address] PCP - General Cardiology 03/30/24 Editor Producer Relationship Specialty Start Date End Date Juan Alfaro [address] [place] [phone] PCP - General 03/25/21 Editor Producer Relationship Specialty Start Date End Date Juan Alfaro [address] [place] [phone] PCP - General 03/25/21 Editor Producer Relationship Specialty Start Date End Date Juan Alfaro [address] [place] [phone] PCP - General 03/25/21 Team Status: Active [...] 2024 End: July 10, 2024 Dr. Gonzalo Blnaco MD Emergency Provider Active S tart: July [...] Star t: October 06, 2024 Tia Kumar 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, 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-C Referring Provider Active St art: October 06, [...] 2024 End: October 06, 2024 Tia Kumar 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, 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-C Referring Provider Active St art: October 06, 2024 End: October 06, 2024 Editor Producer Relationship Specialty Start Date End Date Juan Alfaro [address] [place] [address] PCP - General 03/25/21 Team Status: Active [...] 2024 End: October 06, 2024 Tia Kumar 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, 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-C Referring Provider Active St art: October 06, [...] 2024 End: December 03, 2024 Afsaneh Snow 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, 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-C Attending Provider Active Start: December 03, 2024 End: December 03, 2024 Team Status: Inactive Member Role/Relationship Status Dates Dr. Steph Camacho MD Primary Care Provider Active Start: December 03, 2024 End: December 03, 2024 Afsaneh Snow 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, 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-C Attending Provider Active Start: December 03, 2024 End: December 03, 2024 Afsaneh Snow 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, 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-C Referring Provider Active Start: December 03, 2024 End: December 03, 2024 Editor Producer Relationship Specialty Start Date End Date Juan Alfaro [address] [place] [phone] PCP - General 03/25/21 Team Status: Inactive Member Role/Relationship Status Dates [...] 2024 End: October 06, 2024 Tia Kumar 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, 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-C Referring Provider Active St art: October 06, [...] 2024 End: December 03, 2024 Afsaneh Snow 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, 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-C Attending Provider Active Start: December 03, 2024 End: December 03, 2024 Team Status: Inactive Member Role/Relationship Status Dates Dr. Steph Camacho MD Primary Care Provider Active Start: December 03, 2024 End: December 03, 2024 Afsaneh Snow 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, 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-C Attending Provider Active Start: December 03, 2024 End: December 03, 2024 Afsaneh Snow 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, 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-C Referring Provider Active Start: December 03, 2024 End: December 03, 2024 Team Status: Active Member Role/Relationship Status Dates Dr. Steph Camacho MD Primary Care Provider Active Start: January 04, 2025 Dr. Es Cline DO Attending Provider Activ e Start: January 04, 2025 Dr. Es Cline DO Referring Provider Activ e Start: January 04, 2025 Team Status: Inactive Member Role/Relationship Status Dates Dr. Steph Camacho MD Primary Care Provider Active Start: January 05, 2025 End: January 06, 2025 Dr. Hernán Alex MD Emergency Provider Active Start: January 05, 2025 End: January 06, 2025 Team Status: Inactive Member Role/Relationship Status Dates Dr. Steph Camacho MD Primary Care Provider Active Start: January 04, 2025 End: January 04, 2025 Dr. Es Cline DO Attending Provider Activ e Start: January 04, 2025 End: January 04, 2025 Dr. Es Cline DO Referring Provider Activ e Start: January 04, 2025 End: January 04, 2025 Team Status: Inactive Member Role/Relationship Status Dates Dr. Steph Camacho MD Primary Care Provider Active Start: January 05, 2025 End: January 06, 2025 Dr. Hernán Alex MD Attending Provider Active Start: January 05, 2025 End: January 06, 2025 Dr. Hernán Alex MD Emergency Provider Active Start: January 05, 2025 End: January 06, 2025 Team Status: Inactive Member Role/Relationship Status Dates Dr. Steph Camacho MD Primary Care Provider Active Start: January 11, 2025 End: January 11, 2025 Dr. Steph Camacho MD Referring Provider Active Start: January 11, 2025 End: January 11, 2025 Dr. Es Cline DO Attending Provider Activ e Start: January 11, 2025 End: January 11, 2025 Team Status: Active Member Role/Relationship Status Dates Dr. Steph Camacho MD Primary Care Provider Active Start: January 11, 2025 Dr. Es Cline DO Attending Provider Activ e Start: January 11, 2025 Team Status: Inactive Member Role/Relationship Status Dates [...] 25, 2024 End: September 25, 2024 Dr. tSeph Camacho MD Referring Provider Active Start: September [...] 2024 End: October 06, 2024 Tia Kumar 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, 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-C Referring Provider Active St art: October 06, [...] 2024 End: December 03, 2024 Afsaneh Snow 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, 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-C Attending Provider Active Start: December 03, 2024 End: December 03, 2024 Team Status: Inactive Member Role/Relationship Status Dates Dr. Steph Camacho MD Primary Care Provider Active Start: December 03, 2024 End: December 03, 2024 Afsaneh Snow 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, 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-C Attending Provider Active Start: December 03, 2024 End: December 03, 2024 Afsaneh Snow 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, 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-C Referring Provider Active Start: December 03, 2024 End: December 03, 2024 Team Status: Inactive Member Role/Relationship Status Dates Dr. Steph Camacho MD Primary Care Provider Active Start: January 04, 2025 End: January 04, 2025 Dr. Es Cline DO Attending Provider Activ e Start: January 04, 2025 End: January 04, 2025 Dr. Es Cline DO Referring Provider Activ e Start: January 04, 2025 End: January 04, 2025 Team Status: Inactive Member Role/Relationship Status Dates Dr. Steph Camacho MD Primary Care Provider Active Start: January 05, 2025 End: January 06, 2025 Dr. Hernán Alex MD Attending Provider Active Start: January 05, 2025 End: January 06, 2025 Dr. Hernán Alex MD Emergency Provider Active Start: January 05, 2025 End: January 06, 2025 Team Status: Inactive Member Role/Relationship Status Dates Dr. Steph Camacho MD Primary Care Provider Active Start: January 11, 2025 End: January 11, 2025 Dr. Steph Camacho MD Referring Provider Active Start: January 11, 2025 End: January 11, 2025 Dr. Es Cline DO Attending Provider Activ e Start: January 11, 2025 End: January 11, 2025 Team Status: Inactive Member Role/Relationship Status Dates Dr. Steph Camacho MD Primary Care Provider Active Start: January 11, 2025 End: January 11, 2025 Dr. Es Cline DO Attending Provider Activ e Start: January 11, 2025 End: January 11, 2025 Team Status: Inactive Member Role/Relationship Status Dates Dr. Steph Camacho MD Primary Care Provider Active Start: October 06, 2024 End: October 06, 2024 CAROLYN Garza Attending Provider Active Star t: October 06, 2024 End: October 06, 2024 Tia Kumar 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, 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-C Referring Provider Active St art: October 06, [...] 2024 End: December 03, 2024 Afsaneh Snow 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, 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-C Attending Provider Active Start: December 03, 2024 End: December 03, 2024 Team Status: Inactive Member Role/Relationship Status Dates Dr. Steph Camacho MD Primary Care Provider Active Start: December 03, 2024 End: December 03, 2024 Afsaneh Snow 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, 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-C Attending Provider Active Start: December 03, 2024 End: December 03, 2024 Afsaneh Snow 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, 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-C Referring Provider Active Start: December 03, 2024 End: December 03, 2024 Team Status: Inactive Member Role/Relationship Status Dates Dr. Steph Camacho MD Primary Care Provider Active Start: January 04, 2025 End: January 04, 2025 Dr. Es Cline DO Attending Provider Activ e Start: January 04, 2025 End: January 04, 2025 Dr. Es Cline DO Referring Provider Activ e Start: January 04, 2025 End: January 04, 2025 Team Status: Inactive Member Role/Relationship Status Dates Dr. Steph Camacho MD Primary Care Provider Active Start: January 05, 2025 End: January 06, 2025 Dr. Hernán Alex MD Attending Provider Active Start: January 05, 2025 End: January 06, 2025 Dr. Hernán Alex MD Emergency Provider Active Start: January 05, 2025 End: January 06, 2025 Team Status: Inactive Member Role/Relationship Status Dates Dr. Steph Camacho MD Primary Care Provider Active Start: January 11, 2025 End: January 11, 2025 Dr. Steph Camacho MD Referring Provider Active Start: January 11, 2025 End: January 11, 2025 Dr. Es Cline DO Attending Provider Activ e Start: January 11, 2025 End: January 11, 2025 Team Status: Inactive Member Role/Relationship Status Dates Dr. Steph Camacho MD Primary Care Provider Active Start: January 11, 2025 End: January 11, 2025 Dr. Es Cline DO Attending Provider Activ e Start: January 11, 2025 End: January 11, 2025 Team Status: Active Member Role/Relationship Status Dates Dr. Steph Camacho MD Primary Care Provider Active Start: January 23, 2025 Dr. Es Cline DO Attending Provider Activ e Start: January 23, 2025 Dr. Es Cline DO Referring Provider Activ e Start: January 23, 2025 Team Status: Inactive Member Role/Relationship Status Dates Dr. Steph Camacho MD Primary Care Provider Active Start: January 25, 2025 End: January 25, 2025 Dr. Es Cline DO Attending Provider Activ e Start: January 25, 2025 End: January 25, 2025 Dr. Es Cline DO Referring Provider Activ e Start: January 25, 2025 End: January 25, 2025 Team Status: Inactive Member Role/Relationship Status Dates Dr. Steph Camacho MD Primary Care Provider Active Start: January 31, 2025 End: January 31, 2025 Dr. Es Cline DO Attending Provider Active Start: January End: January 31, 2025 Dr. 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 Steph Camacho MD Primary care physician Active Team Status: Inactive Member Role/Relationship Status Dates Dr. Steph Camacho MD Primary care physician Active Start: December 03, 2024 End: December 03, 2024 Dr. Steph Camacho MD Referring Provider Active Start: December 03, 2024 End: December 03, 2024 Afsaneh Snow NP, 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-C Attending physician Active Start: December 03, 2024 End: December 03, 2024 Team Status: Inactive Member Role/Relationship Status Dates Dr. Steph Camacho MD Primary care physician Active Start: December 03, 2024 End: December 03, 2024 Afsaneh Snow 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, 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-C Attending physician Active Start: December 03, 2024 End: December 03, 2024 Afsaneh Snow 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, 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-C Referring Provider Active Start: December 03, 2024 End: December 03, 2024 Team Status: Inactive Member Role/Relationship Status Dates Dr. Steph Camacho MD Primary care physician Active Start: January 04, 2025 End: January 04, 2025 Dr. Es Cline DO Attending physician Acti ve Start: January 04, 2025 End: January 04, 2025 Dr. Es Cline DO Referring Provider Activ e Start: January 04, 2025 End: January 04, 2025 Team Status: Inactive Member Role/Relationship Status Dates Dr. Steph Camacho MD Primary care physician Active Start: January 05, 2025 End: January 06, 2025 Dr. Hernán Alex MD Attending physician Active Start: January 05, 2025 End: January 06, 2025 Dr. Hernán Alex MD Emergency Depart ment Physician Active Start: January 05, 2025 End: January 06, 2025 Team Status: Inactive Member Role/Relationship Status Dates Dr. Steph Camacho MD Primary care physician Active Start: January 11, 2025 End: January 11, 2025 Dr. Steph Camacho MD Referring Provider Active Start: January 11, 2025 End: January 11, 2025 Dr. Es Cline DO Attending physician Acti ve Start: January 11, 2025 End: January 11, 2025 Team Status: Inactive Member Role/Relationship Status Dates Dr. Steph Camacho MD Primary care physician Active Start: January 11, 2025 End: January 11, 2025 Dr. Es Cline DO Attending physician Acti ve Start: January 11, 2025 End: January 11, 2025 Team Status: Inactive Member Role/Relationship Status Dates Dr. Steph Camacho MD Primary care physician Active Start: January 23, 2025 End: January 23, 2025 Dr. Es Cline DO Attending physician Active Start: January End: January 23, 2025 Dr. Es Cline DO Referring Provider Active Start: January End: January 23, 2025 Team Status: Inactive Member Role/Relationship Status Dates Dr. Steph Camacho MD Primary care physician Active Start: January 25, 2025 End: January 25, 2025 Dr. Es Cline DO Attending physician Active Start: January End: January 25, 2025 Dr. Es Cline DO Referring Provider Active Start: January End: January 25, 2025 Team Status: Inactive Member Role/Relationship Status Dates Dr. Steph Camacho MD Primary care physician Active Start: January 31, 2025 End: January 31, 2025 Dr. Es Cline DO Attending physician Active Start: January End: January 31, 2025 Dr. Es Cline DO Referring Provider Active Start: January End: January 31, 2025 Team Status: Inactive Member Role/Relationship Status Dates Dr. Steph Camacho MD Primary care physician Active Start: February 08, 2025 End: February 08, 2025 Dr. Es Cline DO Attending physician Active Start: January End: February 08, 2025 Dr. Es Cline DO Referring Provider Active Start: January End: February 08, 2025 Team Status: Inactive Member Role/Relationship Status Dates Dr. Steph Camacho MD Primary care physician Active Start: February 11, 2025 End: February 11, 2025 Dr. Steph Camacho MD Referring Provider Active Start: February 11, 2025 End: February 11, 2025 Dr. Es Cline DO Attending physician Active Start: January End: February 11, 2025 Team Status: Active Member Role/Relationship Status Dates Dr. Steph Camacho MD Primary care physician Active Start: February 11, 2025 Dr. Es Cline DO Attending physician Active Start: January Dr. Es Cline DO Referring Provider Active Start: January Team Status: Inactive Member Role/Relationship Status Dates Dr. Steph Camacho MD Primary care physician Active Start: February 21, 2025 End: February 21, 2025 Dr. Steph Camacho MD Referring Provider Active Start: February 21, 2025 End: February 21, 2025 Hunter LEON, PA Attending physician Active St art: February 21, 2025 End: February 21, 2025 Team Status: Inactive Member Role/Relationship Status Dates Dr. Steph Camacho MD Primary care physician Active Start: February 11, 2025 End: February 11, 2025 Dr. Es Cline DO Attending physician Active Start: January End: February 11, 2025 Dr. Es Cline DO Referring Provider Active Start: January End: February 11, 2025 Team Status: Inactive Member Role/Relationship Status Dates Dr. Steph Camacho MD Primary care physician Active Start: January 04, 2025 End: January 04, 2025 Dr. Es Cline DO Attending physician Acti ve Start: January 04, 2025 End: January 04, 2025 Dr. Es Cline DO Referring Provider Activ e Start: January 04, 2025 End: January 04, 2025 Team Status: Inactive Member Role/Relationship Status Dates Dr. Steph Camacho MD Primary care physician Active Start: January 05, 2025 End: January 06, 2025 Dr. Hernán Alex MD Attending physician Active Start: January 05, 2025 End: January 06, 2025 Dr. Hernán Alex MD Emergency Depart ment Physician Active Start: January 05, 2025 End: January 06, 2025 Team Status: Inactive Member Role/Relationship Status Dates Dr. Steph Camacho MD Primary care physician Active Start: January 11, 2025 End: January 11, 2025 Dr. Steph Camacho MD Referring Provider Active Start: January 11, 2025 End: January 11, 2025 Dr. Es Cline DO Attending physician Acti ve Start: January 11, 2025 End: January 11, 2025 Team Status: Inactive Member Role/Relationship Status Dates Dr. Steph Camacho MD Primary care physician Active Start: January 11, 2025 End: January 11, 2025 Dr. sE Cline DO Attending physician Acti ve Start: January 11, 2025 End: January 11, 2025 Team Status: Inactive Member Role/Relationship Status Dates Dr. Steph Camacho MD Primary care physician Active Start: January 23, 2025 End: January 23, 2025 Dr. Es Cline DO Attending physician Active Start: January End: January 23, 2025 Dr. Es Cline DO Referring Provider Active Start: January End: January 23, 2025 Team Status: Inactive Member Role/Relationship Status Dates Dr. Steph Camacho MD Primary care physician Active Start: January 25, 2025 End: January 25, 2025 Dr. Es Cline DO Attending physician Active Start: January End: January 25, 2025 Dr. Es Cline DO Referring Provider Active Start: January End: January 25, 2025 Team Status: Inactive Member Role/Relationship Status Dates Dr. Steph Camacho MD Primary care physician Active Start: January 31, 2025 End: January 31, 2025 Dr. Es Cline DO Attending physician Active Start: January End: January 31, 2025 Dr. Es Cline DO Referring Provider Active Start: January End: January 31, 2025 Team Status: Inactive Member Role/Relationship Status Dates Dr. Steph Camacho MD Primary care physician Active Start: February 08, 2025 End: February 08, 2025 Dr. Es Cline DO Attending physician Active Start: January End: February 08, 2025 Dr. Es Cline DO Referring Provider Active Start: January End: February 08, 2025 Team Status: Inactive Member Role/Relationship Status Dates Dr. Steph Camacho MD Primary care physician Active Start: February 11, 2025 End: February 11, 2025 Dr. Steph Camacho MD Referring Provider Active Start: February 11, 2025 End: February 11, 2025 Dr. Es Cline DO Attending physician Active Start: January End: February 11, 2025 Team Status: Inactive Member Role/Relationship Status Dates Dr. Steph Camacho MD Primary care physician Active Start: February 11, 2025 End: February 11, 2025 Dr. Es Cline DO Attending physician Active Start: January End: February 11, 2025 Dr. Es Cline DO Referring Provider Active Start: January End: February 11, 2025 Team Status: Inactive Member Role/Relationship Status Dates Dr. Steph Camacho MD Primary care physician Active Start: February 21, 2025 End: February 21, 2025 Dr. Steph Camacho MD Referring Provider Active Start: February 21, 2025 End: February 21, 2025 Hunter LEON PA Attending physician Active St art: February 21, 2025 End: February 21, 2025 Team Status: Inactive Member Role/Relationship Status Dates Dr. Steph Camacho MD Primary care physician Active Start: March 13, 2025 End: March 13, 2025 Dr. Steph Camacho MD Referring Provider Active Start: March 13, 2025 End: March 13, 2025 Dr. Es Cline DO Attending physician Acti ve Start: March 13, 2025 End: March 13, 2025 Team Status: Inactive Member Role/Relationship Status Dates Dr. Steph Camacho MD Primary care physician Active Start: March 19, 2025 End: March 19, 2025 Dr. Es Cline DO Attending physician Acti ve Start: March 19, 2025 End: March 19, 2025 Dr. Es Cline DO Referring Provider Activ e Start: March 19, 2025 End: March 19, 2025 Team Status: Active Member Role/Relationship Status Dates Dr. Steph Camacho MD Primary care physician Active Start: March 19, 2025 Dr. Es Cline DO Attending physician Acti ve Start: March 19, 2025 Dr. Es Cline DO Referring Provider Activ e Start: March 19, 2025 Dr. Es Cline DO Nurse Practitioner Activ e Start: March 19, 2025 FOR RECORDS PERTAINING TO PATIENTS WHO ARE [...] BE BASED ON THE PRIMARY CLINICAL RECORDS. [employer] provides no warranty or guarantee of the accuracy or completeness of information in this document.
== END | disposition home or self-care (01) ==
LOC: LABSPEC 11:56
PROVIDERS: Visit Provider Obstetrics & Gynecology
DX: N89.8 Other specified noninflammatory disorders of vagina (principal)
CPT/HCPCS: 87070; 87205